=== PATIENT | female | born 1950 | race Hispanic/Latino ===

== ENCOUNTER 2021-09-04 03:48 | Observation (INO) | payer OTHER ==
--- OUTSIDE RECORDS SUMMARY | 2021-09-04 03:51 | XMS REPORT | Continuity of Care Document ---
:[address] [facility] t Address [address] [place] [address] Care Team Providers Name Role Phone Juan AYALA Attending Clinician JUAN Attending Clinician Unavailable Doctor Unassigned, Name Attending Clinician Unavailable Payers Payer Name Policy Type Policy Number Effective Date Expiration Date S ource Problems Condition Condition Condition Status Onset Resolution Last Treating Co mments Source Name Details Category Date Date Treatment Clinician Date Chronic Chronic Disease Active Univers pain of pain of 7-31 ity of both knees [place] knees 00:[place] [facility] Sjogren's Sjogren's Disease Active Uni vers syndrome: syndrome: 7-11 ity of +SSA +SSA 00:00: [place] 00 [facility] Branch Proteinuri Proteinuri Disease Active U nivers a a 6-13 ity of 00:00: [place] [facility] ESR raised ESR raised Disease Active U nivers 6-06 ity of 00:00: [place] [facility] 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 4-04 it y of present present 00:00: [place] 00 Medical Branch Immunizati Immunizati Disease Active U nivers on on 404 ity of counseling counseling [place] [facility] Rotator Rotator Disease Active Univers cuff tear cuff tear 4-04 ity of arthropath arthropath [place] right y of right 00 Me dical shoulder shoulder Branch Dry eyes Dry eyes Disease Active Unive rs 4-04 ity of 00:00: [place] [facility] Pain in Pain in Disease Active Univers both hands both hands 4-04 it y of 00:00: [place] 00 Medical Branch Allergies, Adverse Reactions, Alerts Allergy Allergy Status Severity Reaction(s) Onset Inactive Treating Comm ents Source Name Type Date Date Clinician NO KNOWN Drug Active Univers ALLERGIE Class ity of S [facility] Social History Social Habit Start Date Stop Date Quantity Comments Source Tobacco use and 2017-09-05 2017-09-05 Never used Universit y of exposure 00:00:00 00:00:00 [facility] Alcohol intake 2017-09-05 2017-09-05 Current University of 00:00:00 00:00:00 non-drinker of [facility] alcohol Branch (finding) Sex [birth year] At [birth year] Universit y of 00:00:00 00:00:00 [facility] Smoking Status Start Date Stop Date Source Never smoker [facility] Medications Ordered Filled Start Stop Current Ordering Indication Dosage Frequency Signature Comments Components Source Medication Medication Date Date Medication? Clinician (SIG) Name Name Diclofenac Yes Apply Univer s Sodium 1 % 7-31 1gram to ity o f gel 00:00: affected [place] 00 area twice Medical daily Branch Diclofenac Yes Apply Univer s Sodium 1 % 7-31 1gram to ity o f gel 00:00: affected [place] 00 area twice Medical daily Branch Diclofenac Yes Apply Univer s Sodium 1 % 7-31 1gram to ity o f gel 00:00: affected [place] 00 area twice Medical daily Branch Diclofenac Yes Apply Univer s Sodium 1 % 7-31 1gram to ity o f gel 00:00: affected [place] 00 area twice Medical daily Branch Diclofenac Yes Apply Univer s Sodium 1 % 4-04 1gram to ity o f gel 00:00: affected [place] 00 area twice Medical daily Branch Diclofenac Yes Apply Univer s Sodium 1 % 4-04 1gram to ity o f gel 00:00: affected [place] 00 area twice Medical daily Branch Diclofenac Yes Apply Univer s Sodium 1 % 4-04 1gram to ity o f gel 00:00: affected [place] 00 area twice Medical daily Branch Diclofenac Yes Apply Univer s Sodium 1 % 4-04 1gram to ity o f gel 00:00: affected [place] 00 area twice Medical daily Branch ciprofloxac Yes 500mg Take 500 U nivers in HCl 500 3-19 mg by ity of mg tablet 00:00: mouth. Medical Branch ciprofloxac 2018-0 Yes 500mg Take 500 U nivers in HCl 500 3-19 mg by ity of mg tablet 00:00: mouth. Medical Branch ciprofloxac 2018-0 Yes 500mg Take 500 U nivers in HCl 500 3-19 mg by ity of mg tablet 00:00: mouth. Medical Branch ciprofloxac 2018-0 Yes 500mg Take 500 U nivers in HCl 500 3-19 mg by ity of mg tablet 00:00: mouth. Medical Branch atorvastati 2017-0 Yes 40mg Take 40 mg Univers n 20 mg 3-04 by mouth. ity of tablet 00:00: Medical Branch nitrofurant 2017-0 Yes 100mg Take 100 U nivers oin 100 mg 3-04 mg by ity of capsule 00:00: mouth 00 daily. Medical Branch atorvastati 2017-0 Yes 40mg Take 40 mg Univers n 20 mg 3-04 by mouth. ity of tablet 00:00: Medical Branch nitrofurant 2017-0 Yes 100mg Take 100 U nivers oin 100 mg 3-04 mg by ity of capsule 00:00: mouth [place] 00 daily. Medical Branch atorvastati 2017-0 Yes 40mg Take 40 mg Univers n 20 mg 3-04 by mouth. ity of tablet 00:00: Medical Branch nitrofurant 2017-0 Yes 100mg Take 100 U nivers oin 100 mg 3-04 mg by ity of capsule 00:00: mouth [place] 00 daily. Medical Branch atorvastati 2017-0 Yes 40mg Take 40 mg Univers n 20 mg 3-04 by mouth. ity of tablet 00:00: Medical Branch nitrofurant 2017-0 Yes 100mg Take 100 U nivers oin 100 mg 3-04 mg by ity of capsule 00:00: mouth [place] 00 daily. Medical Branch metoprolol 2017-0 Yes 100mg Take 100 Un rodger tartrate 2-27 mg by ity of 100 mg 00:00: mouth [place] tablet 00 daily. Medical Branch losartan-hy 2017-0 Yes TOME JAGDISH Un [place] drochloroth 2-27 TABLETA ity o f iazide 00:00: TODOS LOS [place] 100-12.5 mg 00 D? Medical per tablet Branch LEVEMIR Yes 100U inject 100 Univ ers FLEXTOUCH 2-27 Units ity of 100 unit/mL 00:00: [place] the [place] (3 mL) 00 skin 2 Medical injection (two) Branch times daily. 35 units BID JANUMET XR Yes TOME JAGDISH Uni vers 100-1,000 2-27 TABLETA ity of mg per 00:00: POR V?A [place] tablet 00 ORAL DOS Medical VECES AL Branch D?A glipiZIDE Yes 10mg Take 10 mg Un rodger 10 mg 2-27 by mouth 2 ity of tablet 00:00: (two) [place] 00 times Medical daily. Branch SARAH PEN Yes misc Univers NEEDLE 32 2-27 ity of gauge x 00:00: [place] " [place] 00 Medical Branch amLODIPine Yes 10mg Take 10 mg U nivers 10 mg 2-27 by mouth ity of tablet 00:00: daily. Medical Branch aspirin 81 Yes 81mg Take 81 mg U nivers mg chewable 2-27 by mouth ity of tablet 00:00: daily. Medical Branch pantoprazol Yes 40mg Take 40 mg Univers e 40 mg EC 2-27 by mouth ity o f tablet 00:00: daily. Medical Branch naproxen Yes 500mg Take 500 Univ ers 500 mg 2-27 mg by ity of tablet 00:00: mouth [place] 00 daily. Medical Branch metoprolol Yes 100mg Take 100 Un [place]ger tartrate 2-27 mg by ity of 100 mg 00:00: mouth [place] tablet 00 daily. Medical Branch losartan-hy Yes TOME JAGDISH Un [place] drochloroth 2-27 TABLETA ity o f iazide 00:00: TODOS LOS [place] 100-12.5 mg 00 D? Medical per tablet Branch LEVEMIR Yes 100U inject 100 Univ ers FLEXTOUCH 2-27 Units ity of 100 unit/mL 00:00: under the [place] (3 mL) 00 skin 2 Medical injection (two) Branch times daily. 35 units BID JANUMET XR Yes TOME JAGDISH Uni vers 100-1,000 2-27 TABLETA ity of mg per 00:00: POR V?A [place] tablet 00 ORAL DOS Medical VECES AL Branch D?A glipiZIDE Yes 10mg Take 10 mg Un rodger 10 mg 2-27 by mouth 2 ity of tablet 00:00: (two) [place] 00 times Medical daily. Branch SARAH PEN Yes misc Univers NEEDLE 32 2-27 ity of gauge x 00:00: Medical Branch amLODIPine Yes 10mg Take 10 mg U nivers 10 mg 2-27 by mouth ity of tablet 00:00: daily. Medical Branch aspirin 81 Yes 81mg Take 81 mg U nivers mg chewable 2-27 by mouth ity of tablet 00:00: daily. Medical Branch pantoprazol Yes 40mg Take 40 mg Univers e 40 mg EC 2-27 by mouth ity o f tablet 00:00: daily. Medical Branch naproxen Yes 500mg Take 500 Univ ers 500 mg 2-27 mg by ity of tablet 00:00: mouth [place] 00 daily. Medical Branch metoprolol Yes 100mg Take 100 Un rodger tartrate 2-27 mg by ity of 100 mg 00:00: mouth [place] tablet 00 daily. Medical Branch losartan-hy Yes TOME JAGDISH Un [place] drochloroth 2-27 TABLETA ity o f iazide 00:00: TODOS LOS [place] 100-12.5 mg 00 D? Medical per tablet Branch LEVEMIR Yes 100U inject 100 Univ ers FLEXTOUCH 2-27 Units ity of 100 unit/mL 00:00: under the [place] (3 mL) 00 skin 2 Medical injection (two) Branch times daily. 35 units BID JANUMET XR Yes TOME JAGDISH Uni vers 100-1,000 2-27 TABLETA ity of mg per 00:00: POR V?A tablet 00 ORAL DOS Medical VECES AL Branch D?A glipiZIDE Yes 10mg Take 10 mg Un rodger 10 mg 2-27 by mouth 2 ity of tablet 00:00: (two) [place] 00 times Medical daily. Branch SARAH PEN Yes misc Univers NEEDLE 32 2-27 ity of gauge x 00:00: [place] /32" [place] Medical Branch amLODIPine Yes 10mg Take 10 mg U nivers 10 mg 2-27 by mouth ity of tablet 00:00: daily. Medical Branch aspirin 81 Yes 81mg Take 81 mg U nivers mg chewable 2-27 by mouth ity of tablet 00:00: daily. Medical Branch pantoprazol Yes 40mg Take 40 mg Univers e 40 mg EC 2-27 by mouth ity o f tablet 00:00: daily. Medical Branch naproxen Yes 500mg Take 500 Univ ers 500 mg 2-27 mg by ity of tablet 00:00: mouth 00 daily. Medical Branch metoprolol Yes 100mg Take 100 Un [place]ger tartrate 2-27 mg by ity of 100 mg 00:00: mouth [place] tablet 00 daily. Medical Branch losartan-hy Yes TOME JAGDISH Un rod[place] drochloroth 2-27 TABLETA ity o f iazide 00:00: TODOS LOS [place] 100-12.5 mg 00 D? Medical per tablet Branch LEVEMIR Yes 100U inject 100 Univ ers FLEXTOUCH 2-27 Units ity of 100 unit/mL 00:00: under the [place] (3 mL) 00 skin 2 Medical injection (two) Branch times daily. 35 units BID JANUMET XR Yes TOME JAGDISH Uni vers 100-1,000 2-27 TABLETA ity of mg per 00:00: POR V?A [place] tablet 00 ORAL DOS Medical VECES AL Branch D?A glipiZIDE Yes 10mg Take 10 mg Un rod[place] 10 mg 2-27 by mouth 2 ity of tablet 00:00: (two) [place] 00 times Medical daily. Branch SARAH PEN Yes misc Univers NEEDLE 32 2-27 ity of gauge x 00:: " [place] Medical Branch amLODIPine Yes 10mg Take 10 mg U nivers 10 mg 2-27 by mouth ity of tablet 00:00: daily. Medical Branch aspirin 81 Yes 81mg Take 81 mg U nivers mg chewable 2-27 by mouth ity of tablet 00:00: daily. Medical Branch pantoprazol Yes 40mg Take 40 mg Univers e 40 mg EC 2-27 by mouth ity o f tablet 00:00: daily. Medical Branch naproxen Yes 500mg Take 500 Univ ers 500 mg 2-27 mg by ity of tablet 00:00: mouth [place] 00 daily. Medical Branch VITAMIN D2 Yes TAKE 1 Unive rs 50,000 unit 2-14 CAPSULE ity o f capsule 00:00: ONCE A [place] WEEK FOR Medical 13 WEEKS Branch VITAMIN D2 Yes TAKE 1 Unive rs 50,000 unit 2-14 CAPSULE ity o f capsule 00:00: ONCE A [place] WEEK FOR Medical 13 WEEKS Branch VITAMIN D2 Yes TAKE 1 Unive rs 50,000 unit 2-14 CAPSULE ity o f capsule 00:00: ONCE A [place] WEEK FOR Medical 13 WEEKS Branch VITAMIN D2 Yes TAKE 1 Unive rs 50,000 unit 2-14 CAPSULE ity o f capsule 00:00: ONCE A [place] WEEK FOR Medical 13 WEEKS Branch alendronate Yes 10mg Take 10 mg Univers 10 mg 2-13 by mouth ity of tablet 00:00: daily. [place] [facility] Branch alendronate Yes 10mg Take 10 mg Univers 10 mg 2-13 by mouth ity of tablet 00:00: daily. [place] [facility] Branch alendronate Yes 10mg Take 10 mg Univers 10 mg 2-13 by mouth ity of tablet 00:00: daily. [place] [facility] alendronate Yes 10mg Take 10 mg Univers 10 mg 2-13 by mouth ity of tablet 00:00: daily. [place] [facility] Procedures Procedure Date / Time Performed Performing Clinician Sourc e XR ANKLE 3+ VW LEFT 2020-10-14 18:55:23 Breanna Martinez [facility] XR HIPS 3 VW LEFT 2020-10-14 18:55:12 Breanna Martinez [facility] XR KNEE 3 VW LEFT 2020-10-14 18:54:59 Breanna Martinez [facility] ASSIGNMENT OF BENEFITS 2020-10-14 18:28:36 Doctor Unassigned, No [facility] Branch Encounters Start End Encounter Admission Attending Care Care Encounter Source Date/Time Date/Time Type Type Clinicians Facility Department ID 2020-10-14 2020-10-14 [facility] [id number] Univers 13:34:04 23:59:00 Encounter Breanna Alfred [id number] ity of [place] [id number] [facility] [id number] [facility] 807 Branch 2020-10-14 2020-10-14 [facility] [id number] Univers 13:33:50 13:33:50 Encounter Breanna Alfred [id number] ity of [place] [id number] [facility] [id number] [facility] 807 Branch 2020-10-14 2020-10-14 [facility] [id number] Univers 13:30:00 13:32:00 Encounter Breanna Simon [id number] ity of [place] [id number] [facility] [id number] [facility] 807 [place] 2020-10-14 2020-10-14 [id number] Univers 13:30:00 13:30:00 BREANNA [id number] ity [facility] [place] [facility] 2020-10-14 2020-10-14 [facility] [id number] Univers 00:00:00 00:00:00 BREANNA lozano [facility] [place] [facility] 2020-10-14 2020-10-14 Orders Doctor ANCELMO [id number] Univers 00:00:00 00:00:00 Only Unassigned, RACHID [id number] ity of [place] [facility] [id number] [facility] [id number] [place] [address] Branch Results Test Description Test Time Test Comments Results Result Comments Source CBC W/AUTO DIFF WITH PLATELETS 2021-08-25 04:35:16 Test Item Value Reference Range Interpretation Comme nts WBC (test code = 1001) 7.3 K/UL 3.5-11.0 RBC (test code = 1002) 4.41 M/UL 3.80-5.40 HEMOGLOBIN (test code = 13.4 G/DL 11.5-15.5 1003) HEMATOCRIT (test code = 38.6 % 34.0-45.0 1004) MCV (test code = 1005) 87.5 fL 80.0-99.0 MCH (test code = 1006) 30.4 PG 25.0-33.0 MCHC (test code = 1007) 34.7 G/DL 31.0-36.0 RDW (test code = 1038) 13.2 % 11.5-15.0 NEUTROPHILS (test code = 54.6 % 1008) LYMPHOCYTES (test code = 36.0 % 1010) MONOCYTES (test code = 1011) 7.0 % EOSINOPHILS (test code = 1.6 % 1012) BASOPHILS (test code = 1013) 0.5 % IMMATURE GRANULOCYTES (test 0.3 % code = 1036) NUCLEATED RBCS (test code = 0.0 /100 WBC'S See_Comment [Automated message] The 1065) system which ge nerated this result transmit ellie reference range : 0.0. The reference range was not used to interpr et this result as elton l/abnormal. PLATELET COUNT (test code = 272 K/UL 019-133 9616) ABSOLUTE NEUTROPHILS (test 3.97 K/UL 1.50-7.50 code = 1066) ABSOLUTE LYMPHOCYTES (test 2.62 K/UL 1.00-4.00 code = 1067) ABSOLUTE MONOCYTES (test 0.51 K/UL 0.20-1.00 code = 1068) ABSOLUTE EOSINOPHILS (test 0.12 K/UL 0.00-0.50 code = 1040) ABSOLUTE BASOPHILS (test 0.04 K/UL 0.00-0.20 code = 1069) ABS IMMATURE GRANULOCYTES 0.02 K/UL 0.00-0.10 (test code = 1020) ABS NUCLEATED RBCS (test 0.00 K/UL 0.00-0.11 code = 23458) HEMOGLOBIN [id number] 04:23:29 Test Item Value Reference Range Interpretation Comments HEMOGLOBIN A1c (test 8.8 % 4.2-5.6 H [facility] code = 87585) ASSOCIATION IDELINES FOR HGB A1C: PREDIABETES/INC REASED RISK . . . . . . . 5.7 -6.4% DIAGNOSIS OF D IABETES . . . . . . . . . > =6.5% WITH CONFIRM ATION OR APPROPRIATE SYM PTOMS NOTE: ASSAY MAY BE AFFECTED BY HEMOGLOBINOP ATHIES (SICKLE JOEL L ANEMIA, S-C DISEASE, OTHERS ) OR ARTIFICIALLY LO WERED BY DECREASED RED C ELL SURVIVAL (HEMOLYTIC ANEM IAS, BLOOD LOSS, ETC.) . CONSIDER ALTERNATE TESTI NG OR LABORATORY CONS ULTATION. COMPREHENSIVE METABOLIC [id number] 03:52:38 Test Item Value Reference Range Interpretation Comments GLUCOSE (test code = 166 MG/DL 70-99 H 2216) BUN (test code = 30 MG/DL 8-23 H 2207) CREATININE (test 1.31 MG/DL 0.60-1.30 H code = 221) eGFR (2020 CKD-EPI) 43 >60 L (test code = 73942) ML/MIN/1.73 CALC BUN/CREAT (test 23 RATIO 6-28 code = 2235) SODIUM (test code = 140 MEQ/L 914-572 8731) POTASSIUM (test code 5.5 MEQ/L 3.5-5.4 H = 2227) CHLORIDE (test code 104 MEQ/L 95-107 = 2214) CARBON DIOXIDE (test 22 MEQ/L 19-31 code = 2206) CALCIUM (test code = 10.0 MG/DL 8.5-10.5 2208) PROTEIN, TOTAL (test 7.8 G/DL 6.1-8.3 code = 2229) ALBUMIN (test code = 4.5 G/DL 3.5-5.2 2200) CALC GLOBULIN (test 3.3 G/DL 1.9-3.7 code = 2240) CALC A/G RATIO (test 1.4 RATIO 1.0-2.6 code = 2234) BILIRUBIN, TOTAL 0.4 MG/DL See_Comment [Automated message] (test code = 2207) The syste m which generated this result transmitted ref erence range: <=1.2. T he reference range was not used to int erpret this result as normal/abnormal . ALKALINE PHOSPHATASE 86 U/L 40-142 (test code = 2204) AST (test code = 21 U/L 9-40 2217) ALT (test code = 13 U/L 5-40 UNLE SS 2218) OTHERWISE INDIC ATED, ALL TESTING PER FORMED ATCLINICAL PATH [facility], [facility]. [address] [place] [address] LABORATORY DIRE CTOR: KEN HULL M.D. MARISAIA NUMBER [id number] [facility] ACCREDITATION N O. [id number] XR KNEE 3 VW [id number] 19:05:24HISTORY: ?Pain. FINDINGS: AP, lateral, oblique views of left knee showed no acute fractureor dislocation. Mild changes of arthritis noted in the formal slightlynarrowed medial knee joint space, minimalsubchondral sclerosis and smallosteophytes along the articular edges of medial femoral/tibial condyles.Small osteophytes also seen along the upper and lower articular edges ofthe patella with minimal knee joint effusion. No aggressive bone lesions seen. No calcification in the cartilage liningor in the meniscal fibrocartilage. CONCLUSIONS: Mild degenerative arthritis of left knee with minimal jointeffusion. [facility], Radiant Results Inft User - 10/14/2020 2:06 PM CDTHISTORY: Pain.FINDINGS: AP, lateral, oblique views of left knee showed no acute fractureor dislocation. Mild changes of arthritis noted in the formal slightlynarrowed medial knee joint space, minimal subchondral sclerosis and smallosteophytes along the articular edges of medial femoral/tibial condyles.Small osteophytes also seen along the upper and lower articular edges ofthe patella with minimal knee joint effusion.No aggressive bone lesions seen. No calcification in the cartilage liningor in the meniscal fibrocartilage.CONCLUSIONS: Mild degenerative arthritis of left knee with [facility]ffusion.[facility] 2020-10-14 19:04:18HISTORY: ?Pain. FINDINGS: AP, lateral, oblique views of left ankle showed no acute fractureor dislocation. 5 mm heel spur, retrocalcaneal exostosis within lower tendoAchilles noted. Mild soft tissue swelling along the lateral aspect of theankle and mild degenerative changes in the medial tibiotalar joint noted.Mild degenerative arthritis are also seen in the talonavicular joint. CONCLUSIONS: No acutefracture or dislocation in left ankle. [facility], Radiant Results Inft User - 10/14/2020 2:05 PM CDTHISTORY: Pain.FINDINGS: AP, lateral, oblique views of left ankle showed no acute fractureor dislocation.5 mm heel spur, retrocalcaneal exostosis within lower tendoAchilles noted. Mild soft tissue swellingalong the lateral aspect of theankle and mild degenerative changes in the medial tibiotalar joint noted.Mild degenerative arthritis are also seen in the talonavicular joint.CONCLUSIONS: No acute fracture or dislocation in left ankle.[facility] 3 VW [id number] 19:03:08HISTORY: ?Pain. FINDINGS: AP view of the pelvis, AP and lateral views centered over theleft hip joint showed no acute fracture or dislocation. No sign of AVN inthe femoral heads. Mild degenerative arthritis is noted in the left hipjoint. Sacroiliac joints appear normal. CONCLUSIONS: No acute fracture or dislocation in pelvis or left hip. [facility], Radiant Results Inft User - 10/14/2020 2:04 PM CDTHISTORY: Pain.FINDINGS: AP view of the pelvis, AP and lateral views centered over theleft hip joint showed no acute fracture or dislocation. No sign of AVN inthe femoral heads. Mild degenerative arthritis isnoted in the left hipjoint. Sacroiliac joints appear normal.CONCLUSIONS: No acute fracture or dislocation in pelvis or left hip. [facility]
[2021-09-04 04:28] LABS: Absolute Lymphocytes (CBC) 2.5 K/uL (0.7-4.9); Hematocrit 38.8 % (36.0-45.0); Lymphocytes % 27.4 % (15.3-44.8); MPV 9.1 fL (7.6-11.3); RBC Red Blood Cell Count 4.27 M/uL (3.86-4.86)
[2021-09-04 04:32] LABS: Protime INR 0.99
[2021-09-04 04:47] LABS: Albumin 3.9 g/dL (3.4-5.0); Bilirubin Direct 0.1 mg/dL (0-0.2); Bilirubin Total 0.4 mg/dL (0.2-1.0); Magnesium 2.2 mg/dL (1.8-2.4); Potassium 5.1 mmol/L (3.5-5.1); Protein, Total 8.4 g/dL (6.4-8.2); Troponin High Sensitivity 4.5 pg/mL (<58.9)
--- NOTE | 2021-09-04 04:58 | EDPHYS ---
Physician Documentation [facility] Name: iKnga Singleton Age: 70 yrs Sex: Female : 1950 Arrival Date: 09/04/2021 Time: 03:57 Bed 3 Private MD: ED Physician Merrick Wan HPI: 09/04 04:09 This 70 yrs old Female presents to ER via EMS with complaints of Chest pain. [facility] 04:09 The patient or guardian reports chest pain that is located primarily in the anterior mh7 chest wall, left. Onset: today, at 02:30. The pain does not radiate. Associated signs and symptoms: Pertinent negatives: abdominal pain, cough, diaphoresis, dizziness, headache, lower extremity pain, lower extremity swelling, lightheadedness, nausea, near syncope, palpitations, recent travel, shortness of breath, syncope, vomiting. The chest pain is described as a heaviness. Duration: The patient or guardian reports multiple episodes, that are intermittent, that wax and wane, with no pattern. Modifying factors: The symptoms are alleviated by nothing. the symptoms are aggravated by nothing. Severity of pain: At its worst the pain was moderate today. Historical: - Allergies: 04:02 No Known Allergies; tw5 - PMHx: 04:02 Diabetes - IDDM; Hypertensive disorder; tw5 - Immunization history:: Client reports receiving the 2nd dose of the Covid vaccine. - Social history:: Smoking status: Patient denies any tobacco usage or history of. ROS: 04:09 Constitutional: Negative for fever, chills, and weight loss, Eyes: Negative for injury, mh7 pain, redness, and discharge, ENT: Negative for injury, pain, and discharge, Neck: Negative for injury, pain, and swelling, Respiratory: Negative for shortness of breath, cough, wheezing, and pleuritic chest pain, Abdomen/GI: Negative for abdominal pain, nausea, vomiting, diarrhea, and constipation, Back: Negative for injury and pain, : Negative for injury, bleeding, discharge, and swelling, MS/Extremity: Negative for injury and deformity, Skin: Negative for injury, rash, and discoloration, Neuro: Negative for headache, weakness, numbness, tingling, and seizure, Psych: Negative for depression, anxiety, suicide ideation, homicidal ideation, and hallucinations, Allergy/Immunology: Negative for hives, rash, and allergies, Endocrine: Negative for neck swelling, polydipsia, polyuria, polyphagia, and marked weight changes, Hematologic/Lymphatic: Negative for swollen nodes, abnormal bleeding, and unusual bruising. Exam: 04:09 Constitutional: This is a well developed, well nourished patient who is awake, alert, mh7 and in no acute distress. Head/Face: Normocephalic, atraumatic. Eyes: Pupils equal round and reactive to light, extra-ocular motions intact. Lids and lashes normal. Conjunctiva and sclera are non-icteric and not injected. Cornea within normal limits. Periorbital areas with no swelling, redness, or edema. Neck: Trachea midline, no thyromegaly or masses palpated, and no cervical lymphadenopathy. Supple, full range of motion without nuchal rigidity, or vertebral point tenderness. No Meningismus. Chest/axilla: Normal chest wall appearance and motion. Nontender with no deformity. No lesions are appreciated. Cardiovascular: Regular rate and rhythm with a normal S1 and S2. No gallops, murmurs, or rubs. Normal PMI, no JVD. No pulse deficits. Respiratory: Lungs have equal breath sounds bilaterally, clear to auscultation and percussion. No rales, rhonchi or wheezes noted. No increased work of breathing, no retractions or nasal flaring. Abdomen/GI: Soft, non-tender, with normal bowel sounds. No distension or tympany. No guarding or rebound. No evidence of tenderness throughout. Back: No spinal tenderness. No costovertebral tenderness. Full range of motion. Skin: Warm, dry with normal turgor. Normal color with no rashes, no lesions, and no evidence of cellulitis. MS/ Extremity: Pulses equal, no cyanosis. Neurovascular intact. Full, normal range of motion. Neuro: Awake and alert, GCS 15, oriented to person, place, time, and situation. Cranial nerves II-XII grossly intact. Motor strength 5/5 in all extremities. Sensory grossly intact. Cerebellar exam normal. Normal gait. Psych: Awake, alert, with orientation to person, place and time. Behavior, mood, and affect are within normal limits. Vital Signs: 03:58 BP 141 / 70; Resp 18; Temp 97.8; Pulse Ox 96% on R/A; Weight 72.57 kg; Height 5 ft. 8 tw5 in. (172.72 cm); Pain 5/10; 04:40 BP 105 / 60; Pulse 73; Resp 20; Pulse Ox 98% on R/A; ke1 07:49 BP 169 / 70; Pulse 65; Resp 17; Pulse Ox 100% ; bey 08:58 BP 138 / 75; Pulse 80; Resp 17; Pulse Ox 100% on R/A; bey 09:07 BP 168 / 60; Pulse 59; Resp 16; Pulse Ox 98% on R/A; bey 03:58 Body Mass Index 24.33 (72.57 kg, 172.72 cm) tw5 MDM: 04:54 Differential diagnosis: acute myocardial infarction, acute pericarditis, anxiety, mh7 coronary artery disease chest wall pain, congestive heart failure costochondritis, esophagitis, gastroesophageal reflux disease (GERD), peptic ulcer disease, pericarditis, pneumonia, pneumothorax. 04:55 HEART Score: History: Moderately Suspicious (1), ECG: Normal (0), Age: > or = [address] [facility] (2), Risk Factors: > or = 3 Risk factors for atherosclerotic disease (2), [Hypercholesterolemia] [Hypertension] [DM] Troponin: < or = 1 x Normal Limit (0), Total Score = 5. The patient was given aspirin in the Emergency Department. Data reviewed: vital signs, nurses notes, EMS record, lab test result(s), cardiac enzymes, CBC, electrolytes, EKG, radiologic studies, plain films. Data interpreted: Pulse oximetry: on room air is 98 %. Interpretation: normal. Counseling: I had a detailed discussion with the patient and/or guardian regarding: the historical points, exam findings, and any diagnostic results supporting the discharge/admit diagnosis, lab results, radiology results, the need for further work-up and treatment in the hospital. Response to treatment: the patient's symptoms have mildly improved after treatment. 04:[address] [facility] 09/04 04:00 Order name: Basic Metabolic Panel; Complete Time: :53 [facility] 09/04 04:00 Order name: CBC with Diff; Complete Time: 04:35 [facility] 09/04 04:00 Order name: LFT's; Complete Time: 53 [facility] 09/04 04:00 Order name: Magnesium; Complete Time: 04:53 7 09/04 04:00 Order name: NT PRO-BNP; Complete Time: 04:53 7 09/04 04:00 Order name: PT-INR; Complete Time: 04:35 7 09/04 04:00 Order name: Troponin HS; Complete Time: 04:53 7 09/04 04:00 Order name: XRAY Chest ([address] view) [facility] 09/04 04:00 Order name: EKG; Complete Time: 04:13 7 09/04 04:28 Order name: Glucose, Ancillary Testing; Complete Time: 04:35 EDMS 09/04 05:24 Order name: COVID-19/FLU A+B (Document "Date of Onset" if Symptomatic) cs9 09/04 04:00 Order name: Cardiac monitoring; Complete Time: 04:05 [facility] 09/04 04:00 Order name: EKG - Nurse/Tech; Complete Time: 04:01 [facility] 09/04 04:00 Order name: IV Saline Lock; Complete Time: 04:16 7 09/04 04:00 Order name: Labs collected and sent; Complete Time: 04:16 [facility] 09/04 04:00 Order name: O2 Per Protocol; Complete Time: 04:05 [facility] 09/04 04:00 Order name: O2 Sat Monitoring; Complete Time: 04:05 [facility] Administered Medications: 05:17 Drug: Aspirin Chewable Tablet 324 mg Route: PO; lg3 05:17 Follow up: Response: No adverse reaction lg3 05:27 Drug: NS 0.9% 1000 ml Route: IV; Rate: 1 bolus; Site: right antecubital; lg3 07:56 Follow up: IV Status: Completed infusion; IV Intake: 1000ml bp 06:20 Drug: NS 0.9% 1000 ml Route: IV; Rate: 75 ml/hr; Site: right antecubital; ke1 Disposition Summary: 09/04/21 04:57 Hospitalization Ordered Hospitalization Status: Observation [facility] Provider: Devan Kohli [facility] Location: Telemetry/MedSurg (observation) [facility] Condition: Stable [facility] Problem: new [facility] Symptoms: have improved [facility] Bed/Room Type: Standard [facility] Room Assignment: 220(09/04/21 09:40) Diagnosis - Chest pain, unspecified [facility] Forms: - Medication Reconciliation Form mh7 - SBAR form 7 Signatures: Dispatcher [employer] EDMS Du Charles, MEDICAL SERVICES COORDINATOR-C MEDICAL SERVICES COORDINATOR-Cla1 Inga Cruz Lacie, RN RN lg3 Merrick Wan MD MD 7 Diana Norton 5 Suzi Gutiérrez RN RN ke1 Deangelo Castro RN bp Corrections: (The following items were deleted from the chart) 04:04 04:02 PMHx: Hypercholesterolemia; tw 09:40 04:57 Carlie seay
--- NOTE | 2021-09-04 04:58 | ER ---
Nurse's Notes [facility] Name: Kinga Singleton Age: 70 yrs Sex: Female : 1950 Arrival Date: 09/04/2021 Time: 03:57 Bed 3 Private MD: Diagnosis: Chest pain, unspecified Presentation: 09/04 03:58 Chief complaint: EMS states: c/o CP at rest started around 0230 radiating to right side tw5 of the neck, 1st degree heart block on EKG per EMS. v/s 130/90. Coronavirus screen: Vaccine status: Patient reports receiving the 2nd dose of the covid vaccine. Ebola Screen: No symptoms or risks identified at this time. Initial Sepsis Screen: Does the patient meet any 2 criteria? No. Patient's initial sepsis screen is negative. Does the patient have a suspected source of infection? No. Patient's initial sepsis screen is negative. Risk Assessment: Do you want to hurt yourself or someone else? Patient reports no desire to harm self or others. Onset of symptoms was September 04, 2021 at 02:30. 03:58 Method Of Arrival: EMS: [facility] tw5 03:58 Acuity: JITENDRA 3 tw5 Triage Assessment: 04:04 General: Appears uncomfortable, Behavior is calm, cooperative, appropriate for age. tw5 Pain: Complains of pain in left side Chest under left breast radiating to right neck Pain radiates to right side neck. EENT: No deficits noted. Neuro: Level of Consciousness is awake, alert, obeys commands, Oriented to person, place, time, situation. Cardiovascular: Reports chest pain, Respiratory: Airway is patent Trachea midline Respiratory effort is even, unlabored, Respiratory pattern is regular, symmetrical, Breath sounds are clear bilaterally. GI: Abdomen is non-distended. : No deficits noted. Derm: No deficits noted. Musculoskeletal: No signs and/or symptoms reported regarding the musculoskeletal system. Historical: - Allergies: 04:02 No Known Allergies; tw5 - PMHx: 04:02 Diabetes - IDDM; Hypertensive disorder; tw5 - Immunization history:: Client reports receiving the 2nd dose of the Covid vaccine. - Social history:: Smoking status: Patient denies any tobacco usage or history of. Screenin:07 Abuse screen: Denies threats or abuse. Nutritional screening: No deficits noted. tw5 Tuberculosis screening: No symptoms or risk factors identified. Fall Risk No fall in past 12 months (0 pts). No secondary diagnosis (0 pts). IV access (20 points). Ambulatory Aid- None/Bed Rest/Nurse Assist (0 pts). Gait- Normal/Bed Rest/Wheelchair (0 pts) Mental Status- Oriented to own ability (0 pts). Assessment: 04:17 Reassessment: see triage. tw5 07:00 General: RECD REPORT FROM JOANNE VIVEROS. 70YO HF P/W CP. ALL CURRENT RESULTS NEGATIVE. PT bp TO BE ADMITTED.. Vital Signs: 03:58 BP 141 / 70; Resp 18; Temp 97.8; Pulse Ox 96% on R/A; Weight 72.57 kg; Height 5 ft. 8 tw5 in. (172.72 cm); Pain 5/10; 04:40 BP 105 / 60; Pulse 73; Resp 20; Pulse Ox 98% on R/A; ke1 07:49 BP 169 / 70; Pulse 65; Resp 17; Pulse Ox 100% ; bey 08:58 BP 138 / 75; Pulse 80; Resp 17; Pulse Ox 100% on R/A; bey 09:07 BP 168 / 60; Pulse 59; Resp 16; Pulse Ox 98% on R/A; bey 03:58 Body Mass Index 24.33 (72.57 kg, 172.72 cm) tw5 ED Course: 03:57 Patient arrived in ED. tw5 03:57 Diana Norton is Primary Nurse. tw5 03:59 Merrick Wan MD is Attending Physician. 7 04:02 Triage completed. tw5 04:07 Arm band placed on. tw5 04:09 Bed in low position. Side rails up X 1. Adult w/ patient. tw5 04:16 Inserted saline lock: 20 gauge in right antecubital area, using aseptic technique. tw5 ,using aseptic technique. By Tung Gray 04:40 XRAY Chest (1 view) In Process Unspecified. EDMS 04:57 Devan Kohli MD is Hospitalizing Provider. 7 06:06 COVID-19/FLU A+B (Document "Date of Onset" if Symptomatic) Sent. ke1 07:21 Primary Nurse role handed off by Diana Norton bp 07:21 Glroia, Deangelo, RN is Primary Nurse. bp 08:59 No provider procedures requiring assistance completed. Inserted saline lock:. bey 10:18 Patient admitted, IV remains in place. bey Administered Medications: 05:17 Drug: Aspirin Chewable Tablet 324 mg Route: PO; lg3 05:17 Follow up: Response: No adverse reaction lg3 05:27 Drug: NS 0.9% 1000 ml Route: IV; Rate: 1 bolus; Site: right antecubital; lg3 07:56 Follow up: IV Status: Completed infusion; IV Intake: 1000ml bp 06:20 Drug: NS 0.9% 1000 ml Route: IV; Rate: 75 ml/hr; Site: right antecubital; ke1 Intake: 07:56 IV: 1000ml; Total: 1000ml. bp Outcome: 04:57 Decision to Hospitalize by Provider. [facility] 10:18 Admitted to [facility] bey 10:18 Condition: good 10:18 Instructed on the need for admit. 10:18 Patient left the ED. Signatures: Dispatcher [employer] EDMS Deangelo Castro, RN RN Judie Alcantar RN RN 3 Merrick Wan MD MD [facility] Diana Norton tw5 Loan Lawler RN RN Joanne Gutiérrez RN RN ke1 Corrections: (The following items were deleted from the chart) 04:04 04:02 PMHx: Hypercholesterolemia; tw5 tw5
[2021-09-04] MEDS ORDERED: ASPIRIN 81 MG CHEWABLE TABLET ONE (05:14)
[2021-09-04] MEDS ORDERED: NA CHLORIDE 0.9% 2,000 ML ONE (05:22)
--- NOTE | 2021-09-04 05:26 | P.HP ---
Certification for Inpatient Patient admitted to: Observation With expected LOS: <2 Midnights Patient will require the following post-hospital care: None Practitioner: I am a practitioner with admitting privileges, knowledge of patient current condition, hospital course, and medical plan of care. Services: Services provided to patient in accordance with Admission requirements found in Title 42 Section 412.3 of the Code of Federal Regulations Patient History Date of Service: 09/04/21 Primary Care Provider: Miguel gurrola Reason for admission: Chest pain History of Present Illness: 70-year-old female history of diabetes mellitus type 2insulin- dependent, hypertension and CKD 2 presents emergency department for chest pain. Patient reports that she was holding her child and she had sudden onset of "cramping" like chest pain that lasted for couple minutes she had associated weakness at that time. At this time patient symptoms have resolved her EKG is unremarkable chest x-ray negative for any acute findings her initial troponin is negative although her labs were significant for mild acute kidney injury her ba seline GFR is around 55, currently it is 26 her creatinine increased from 1-1.9. ED prior wishes to admit to observation for chest pain ACS rule out, MERCEDES Allergies No Known Allergies Allergy (Verified 08/04/17 01:02) Home Medications: Amlodipine Besylate 1 tab PO DAILY 08/04/17 Aspirin [Aspir-Low] 1 tab PO DAILY 08/04/17 Insulin Detemir [Levemir Flextouch] 35 units SQ BID 08/04/17 Losartan/Hydrochlorothiazide [Losartan-Hctz 100-12.5 mg Tab] 1 tab PO DAILY 08/04/17 Metoprolol Tartrate 1 tab PO DAILY 08/04/17 Pantoprazole Sodium [Protonix] 1 tab PO [id number] 08/04/17 Sitagliptin Phos/Metformin HCl [Janumet Xr 100-1,000 mg Tablet] 1 tab PO BID 08/04/17 glipiZIDE [Glucotrol] 1 tab PO BID 08/04/17 Atorvastatin Calcium [Lipitor*] 20 mg PO BEDTIME #30 tab 08/05/17 Nitrofuran Macro [Macrobid*] 100 mg PO BIDWM #20 cap 08/05/17 - Past Medical/Surgical History Diabetic: Yes -: high cholesterol -: IDDM -: HTN -: hysterectomy Psychosocial/ Personal History: Lives at home with her family - Family History Mother -: Diabetes Father -: Diabetes - Social History Smoking Status: Never smoker Alcohol use: Yes CD- Drugs: No Caffeine use: No Place of Residence: Home Review of Systems 10-point ROS is otherwise unremarkable General: Weakness Cardiovascular: Chest Pain Physical Examination - Physical Exam General: Alert, In no apparent distress, Oriented x3 HEENT: Atraumatic, PERRLA, Mucous membr. moist/pink, EOMI, Sclerae nonicteric Neck: Supple, 2+ carotid pulse no bruit, No LAD, Without JVD or thyroid abnormality Respiratory: Clear to auscultation bilaterally, Normal air movement Cardiovascular: Regular rate/rhythm, Normal S1 S2 Gastrointestinal: Normal bowel sounds, No tenderness Musculoskeletal: No tenderness Integumentary: No rashes Neurological: Normal gait, Normal speech, Normal strength at 5/5 x4 extr, Normal tone, Normal affect Lymphatics: No axilla or inguinal lymphadenopathy - Studies Laboratory Data (last 24 hrs) 09/04/21 04:15: PT 10.9, INR 0.99 09/04/21 04:15: WBC 9.3, Hgb 13.0, Hct 38.8, Plt Count 262 09/04/21 04:15: Sodium 134 L, Potassium 5.1, BUN 46 H, Creatinine 1.90 H, Glucose 239 H, Magnesium 2.2, Total Bilirubin 0.4, AST 11 L, ALT 17, Alkaline Phosphatase 72 Assessment and Plan - Plan Assessment: Chest pain rule out ACS MERCEDES superimposed on CKD 2 Diabetes mellitus type IIinsulin-dependent Hypertension Hyperlipidemia Plan: Chest pain rule out ACS: Monitor on telemetry, trend troponins, cardiology consulted. Aspirin, statin, beta-dayan. Patient denies any previous cardiac work-up including stress test or heart cath. MERCEDES superimposed on CKD 2: We will give IV fluids, obtain renal ultrasound and consult nephrology. Diabetes mellitus type IIinsulin-dependent: ACH S Accu-Chek, sliding scale insulin. Hypertension: Continue home medications Hyperlipidemia: Continue Home medications DVT PPX: Heparin Code status:full Discharge Plan: Home Plan to discharge in: 24 Hours - Advance Directives Does patient have a Living Will: No Does patient have a Durable POA for Healthcare: No - Code Status/Comfort Care Code Status Assessed: Yes (Full code) Critical Care: No Time Spent Managing Pts Care (In Minutes): 55
[2021-09-04 07:03] LABS: SARS-COV-2 RT PCR NEGATIVE (NEGATIVE)
[2021-09-04] MEDS ORDERED: ONDANSETRON 4 MG/2 ML VIAL IV PRN (10:00)
[2021-09-04] MEDS ORDERED: ACETAMINOPHEN 500 MG TAB PO PRN (10:00)
[2021-09-04] MEDS: INSULIN -REGULAR HUMAN 50 UNIT/0.5 ML ML SQ SCH ×2 (10:00→11:06)
[2021-09-04] MEDS ORDERED: MORPHINE 4 MG/ML SYR IV PRN (10:29)
[2021-09-04 10:35] VITALS: BMI 30.2
[2021-09-04 10:50] VITALS: O2SAT 98
[2021-09-04] MEDS ORDERED: METOPROLOL TAR 25 MG TAB PO SCH (11:00)
[2021-09-04] MEDS ORDERED: NA CHLORIDE 0.9% 1,000 ML IV SCH (11:00)
[2021-09-04] MEDS ORDERED: HEPARIN 5000 UNIT/ML 1 ML VIAL SQ SCH (11:00)
[2021-09-04] MEDS ORDERED: ASPIRIN EC 81 MG TAB PO SCH (11:00)
--- NOTE | 2021-09-04 16:19 | P.DS ---
Admission Date: 09/04/21 Discharge Date: 09/04/21 Primary Care Provider: Miguel gurrola Disposition: ROUTINE DISCHARGE Discharge Condition: FAIR Reason for Admission: Chest pain Brief History of Present Illness: Admitted to the hospital to rule out an [place] Hospital Course: Patient was admitted with cramping-like pain in the upper abdomen German- speaking only he denied any chest pain no prior history of coronary artery disease or cardiac enzymes were all normal EKG normal currently patient has chronic renal failure diabetes and hypertension symptoms have all resolved at the time of discharge she was alert oriented responsive cooperative vital signs all stable chest clear abdomen soft he has been instructed to follow-up with the primary care provider soon as possible as well to hold her losartan hydrochlorothiazide for now/ Pt wanted to go home states that she has chronic renal failure Vital Signs/Physical Exam: Temp Pulse Resp BP Pulse Ox 97.7 F 75 16 131/66 97 09/04/21 12:00 09/04/21 12:00 09/04/21 12:00 09/04/21 12:00 09/04/21 12:00 Laboratory Data at Discharge: WBC 9.3 K/uL (4.3-10.9) 09/04/21 04:15 Hgb 13.0 g/dL (12.0-15.0) 09/04/21 04:15 Hct 38.8 % (36.0-45.0) 09/04/21 04:15 Plt Count 262 K/uL (152-406) 09/04/21 04:15 PT 10.9 SECONDS (9.5-12.5) 09/04/21 04:15 INR 0.99 09/04/21 04:15 Sodium 134 mmol/L (136-145) L 09/04/21 04:15 Potassium 5.1 mmol/L (3.5-5.1) 09/04/21 04:15 BUN 46 mg/dL (7-18) H 09/04/21 04:15 Creatinine 1.90 mg/dL (0.55-1.3) H 09/04/21 04:15 Glucose 239 mg/dL (74-106) H 09/04/21 04:15 Magnesium 2.2 mg/dL (1.8-2.4) 09/04/21 04:15 Total Bilirubin 0.4 mg/dL (0.2-1.0) 09/04/21 04:15 AST 11 U/L (15-37) L 09/04/21 04:15 ALT 17 U/L (12-78) 09/04/21 04:15 Alkaline Phosphatase 72 U/L (45-117) 09/04/21 04:15 Home Medications: Amlodipine Besylate 1 tab PO DAILY 08/04/17 Aspirin [Aspir-Low] 1 tab PO DAILY 08/04/17 Insulin Detemir [Levemir Flextouch] 35 units SQ BID 08/04/17 Metoprolol Tartrate 1 tab PO DAILY 08/04/17 Pantoprazole Sodium [Protonix] 1 tab PO [id number] 08/04/17 Sitagliptin Phos/Metformin HCl [Janumet Xr 100-1,000 mg Tablet] 1 tab PO BID 08/04/17 glipiZIDE [Glucotrol] 1 tab PO BID 08/04/17 Atorvastatin Calcium [Lipitor*] 20 mg PO BEDTIME #30 tab 08/05/17 Physician Discharge Instructions: Patient to follow-up with primary care provider within 1 to 2 weeks patient has renal insufficiency patient to hold losartan hydrochlorothiazide until verified by her primary care physician is given a copy of all the lab work Diet: ADA Activity: Ad louise Followup: Unknown,U [Primary Care Provider] -
[2021-09-04 16:28] VITALS: BP 136/67; TEMP 98.2
--- NOTE | 2021-09-04 18:18 | RAD REPORT ---
EXAM DESCRIPTION: X-ray single view chest. CLINICAL HISTORY: 70 years Female, CHEST PAIN COMPARISON: 08/03/2017 TECHNIQUE: Single portable x-ray view of the chest performed on 09/04/2021 at 4:25 AM FINDINGS: The lungs are well expanded and are clear. There is no evidence of a pneumothorax. The cardiac silhouette is normal in size and configuration. The mediastinal contours are normal. No acute osseous abnormality is identified. No acute soft tissue abnormalities are seen. Lines and tubes: None. Free air: None IMPRESSION: No evidence of acute intrathoracic disease. Electronically signed by: Carey Muller DO 09/04/2021 5:55 AM CDT Due to temporary technical issues with the PACS/Fluency reporting system, reports are being signed by the in house radiologists without review as a courtesy to insure prompt reporting. The interpreting radiologist is fully responsible for the content of the report.
[2021-09-04] MEDS ORDERED: ATORVASTATIN 40 MG TAB PO SCH (21:00)
--- NOTE | 2021-09-05 11:15 | EKG ---
Test Date: 2021-09-04 Test Time: 04:03:04 Baker Chef: BLESSING MEASUREMENT RESULTS: Intervals: Rate: 72 VT: 214 QRSD: 82 QT: 412 QTc: 451 Ranger: P: 47 VT: 214 QRS: 76 T: 68 INTERPRETIVE STATEMENTS: Sinus rhythm with 1st degree AV block Otherwise normal ECG Compared to ECG 08/03/2017 20:58:23 Sinus bradycardia no longer present Electronically Signed On 09-05-21 11:12:21 CDT by Malcolm Kaur
== END 2021-09-04 17:15 | disposition home or self-care (01) ==
LOC: ER 03:48 → ERHOLD 05:16 → INTOOBSV 05:16 → 2ND 09:53 → INTOOBSV 13:21 → OBSVTOIN 13:21
PROVIDERS: ADMIT Hospitalist; ATTEND Hospitalist
DX: R07.9 Chest pain, unspecified (principal); I12.9 Hypertensive chronic kidney disease with stage 1 through stage 4 chronic kidney disease, or unspecified chronic kidney disease; E11.22 Type 2 diabetes mellitus with diabetic chronic kidney disease; N18.2 Chronic kidney disease, stage 2 (mild); N17.9 Acute kidney failure, unspecified; E78.5 Hyperlipidemia, unspecified; Z20.822 Contact with and (suspected) exposure to COVID-19
CPT/HCPCS: 96361; 93005; 85025; 80048; 36415; 83735; 85610; 82947 ×3; 80076; 84484 ×2; 83880; 0240U; 71045; 96360; 99285; J1644; J7030 ×2; G0378 ×2

== ENCOUNTER 2022-01-28 12:53 | Inpatient (IN) | payer OTHER ==
--- OUTSIDE RECORDS SUMMARY | 2022-01-28 13:04 | XMS REPORT | Continuity of Care Document ---
:1950 Author Organization [facility] t Address [address] [place] [address] Dr. 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 4-04 it y of present present 00:00: [place] [facility] Immunizati Immunizati Disease Active U nivers on on 404 ity of counseling counseling 00:[place]: [place] [facility] Rotator Rotator Disease Active Univers cuff tear cuff tear 4-04 ity of arthropath arthropath 00:[place] right y of right 00 Me dical shoulder shoulder Branch Dry eyes Dry eyes Disease Active Unive rs 4-04 ity of 00:00: [place] 00 [facility] Pain in Pain in Disease Active 2017-0 Univers both hands both hands - it y of 00:00: [address] Allergies, Adverse Reactions, Alerts Allergy Allergy Status Severity Reaction(s) Onset Inactive Treating Comm ents Source Name Type Date Date Clinician NO KNOWN Drug Active Univers ALLERGIE Class ity of [facility] Social History Social Habit Start Date Stop Date Quantity Comments Source Tobacco use and 2017-09-05 2017-09-05 Never used Universit y of exposure 00:00:00 00:00:00 [facility] Alcohol intake 2017-09-05 2017-09-05 Current University 00:00:00 00:00:00 non-drinker of [facility] alcohol Branch (finding) Sex Assigned At [birth year] [facility] y of 00:00:00 00:00:00 [facility] Smoking Status Start Date Stop Date Source Never smoker [facility] Medications Ordered Filled Start Stop Current Ordering Indication Dosage Frequency Signature Comments Components Source Medication Medication Date Date Medication? Clinician (SIG) Name Name &lt 2021-0 No 8-03 00:00: 00 Dose 2021-0 No Unknown 8-03 00:00: 00 &lt 2021-0 No 10 8-03 00:00: 00 &lt 2021-0 No 8-03 00:00: 00 TOME JAGDISH 2021-0 No TABLETA DOS 7-26 VECES AL D 00:00: A 00 Dose 2021-0 No Unknown 7-26 00:00: 00 TOME JAGDISH 2021-0 No 40 TABLETA POR 7-26 V A ORAL 00:00: TODOS LOS D 00 Dose 2021-0 No Unknown 7-25 00:00: 00 TOME JAGDISH 2021-0 No TABLETA DOS 7-12 VECES AL D 00:00: A 00 INJECT 2021-0 No UNITS BELOW 7-06 THE SKIN AT 00:00: BEDTIME 00 INJECT 55 UNITS APLIQUE A No DIARIO A LA 7-06 PIEL EL LC 00:00: AFECTADA 00 TODOS LOS D TAKE No 10 TABLET BY 7-05 MOUTH DAILY 00:00: JULIET JAGDISH 00 TABLETA JAGDISH VECE AL PITO PARA LA SHANNAN OSEA TAKE 1 2022-0 No 20 TABLET BY 7-05 MOUTH AT 00:00: BEDTIME 00 JULIET JAGDISH TABLETA EN LA NOCHE PARA EL COLESTEROL Dose 2021-0 No Unknown 7-05 00:00: 00 Dose 2021-0 No Unknown 7- 00:00: 00 Dose 2021-0 No Unknown 7- 00:00: 00 TAKE 1 2021-0 No 100 TABLET BY 7-05 MOUTH DAILY 00:00: JULIET JAGDISH 00 TABLETA JAGDISH VECES AL PITO PARA LA PRESION ARTERIAL TOME JAGDISH 0 No 10 TABLETA POR 7-05 V A ORAL 00:00: TODOS LOS D 00 TOME JAGDISH 0 No 500 TABLETA 705 TODOS LOS D 00:00: 00 Dose 2021-0 No Unknown 7 00:00: 00 Dose 2021-0 No Unknown 7 00:00: 00 TAKE 1 0 No 10 TABLET BY 7-05 MOUTH DAILY 00:00: JULIET JAGDISH 00 TABLETA JAGDISH VECE AL PITO PARA LA SHANNAN OSEA TAKE 1 0 No 20 TABLET BY 7-05 MOUTH AT 00:00: BEDTIME 00 JULIET JAGDISH TABLETA EN LA NOCHE PARA EL COLESTEROL Dose 2021-0 No Unknown 7 00:00: 00 Dose 2021-0 No Unknown 7- 00:00: 00 Dose 2021-0 No Unknown 7 00:00: 00 TAKE 1 0 No 100 TABLET BY 7-05 MOUTH DAILY 00:00: JULIET JAGDISH 00 TABLETA JAGDISH VECES AL PITO PARA LA PRESION ARTERIAL TOME JAGDISH 0 No 10 TABLETA POR 7-05 V A ORAL 00:00: TODOS LOS D 00 TOME JAGDISH 2021-0 No 500 TABLETA 705 TODOS LOS D 00:00: 00 Dose 2021-0 No Unknown 7-05 00:00: 00 Dose 2021-0 No Unknown 7- 00:00: 00 APLIQUE A 0 No DIARIO A LA 6-17 PIEL EL LC 00:00: AFECTADA 00 TODOS LOS D APLIQUE A 0 No DIARIO A LA 6-17 PIEL EL LC 00:00: AFECTADA 00 TODOS LOS D Levemir 2022-0 No (3 mL) FlexTouch 5-25 U-100 00:00: Insulin 100 00 unit/mL (3 mL) subcutaneou s pen Levemir 2021-0 No (3 mL) FlexTouch 5-25 U-100 00:00: Insulin 100 00 unit/mL (3 mL) subcutaneou s pen levofloxaci 2021-0 No 1mg n 500 mg 4-23 tablet 00:00: 00 Dose 2021-0 No Unknown 4-23 00:00: 00 Dose 2021-0 No Unknown 4-23 00:00: 00 Dose 2021-0 No Unknown 4-23 00:00: 00 Dose 2021-0 No Unknown 4-23 00:00: 00 Dose 2021-0 No Unknown 4-23 00:00: 00 Dose 2021-0 No Unknown 4-23 00:00: 00 Dose 2021-0 No Unknown 4-23 00:00: 00 Dose 2021-0 No Unknown 4-23 00:00: 00 Dose 2021-0 No Unknown 4-23 00:00: 00 levofloxaci 2021-0 No 1mg n 500 mg 4-23 tablet 00:00: 00 Dose 2021-0 No Unknown 4-23 00:00: 00 Dose 2021-0 No Unknown 4-23 00:00: 00 Dose 2021-0 No Unknown 4-23 00:00: 00 Dose 2021-0 No Unknown 4-23 00:00: 00 Dose 2021-0 No Unknown 4-23 00:00: 00 Dose 2021-0 No Unknown 4-23 00:00: 00 Dose 2021-0 No Unknown 4-23 00:00: 00 Dose 2021-0 No Unknown 4-23 00:00: 00 Dose 2-0 No Unknown 4-23 00:00: 00 Dose 2-0 No Unknown 4-21 00:00: 00 Dose 2-0 No Unknown 4-21 00:00: 00 Dose 2021-0 No Unknown 4-21 00:00: 00 Dose 2021-0 No Unknown 4-21 00:00: 00 Dose 2-0 No Unknown 4-20 00:00: 00 Dose 2-0 No Unknown 4-20 00:00: 00 sulfamethox 2021-0 No 1mg azole 800 4-19 mg-trimetho 00:00: prim 160 mg 00 tablet sulfamethox 2022-0 No 1mg azole 800 4-19 mg-trimetho 00:00: prim 160 mg 00 tablet Levemir 2022-0 No (3 mL) FlexTouch 3-24 U-100 00:00: Insulin 100 00 unit/mL (3 mL) subcutaneou s pen alendronate 2022-0 No 1mg 10 mg 3-24 tablet 00:00: 00 amlodipine 2022-0 No 1mg 10 mg 3-24 tablet 00:00: 00 aspirin 81 2022-0 No 1mg mg 3-24 tablet,teressa 00:00: yed release 00 metoprolol 2022-0 No 1mg succinate 3-24 ER 100 mg 00:00: tablet,exte 00 nded release 24 hr lisinopril 2022-0 No 1mg 40 mg 3-24 tablet 00:00: 00 Janumet XR 2022-0 No 1mg 100 3-24 mg-1,000 mg 00:00: tablet,exte 00 nded release lovastatin 2022-0 No 1mg 20 mg 3-24 tablet 00:00: 00 gabapentin 2022-0 No 12mg 100 mg 3-24 capsule 00:00: 00 Levemir 2022-0 No (3 mL) FlexTouch 3-24 U-100 00:00: Insulin 100 00 unit/mL (3 mL) subcutaneou s pen alendronate 2022-0 No 1mg 10 mg 3-24 tablet 00:00: 00 amlodipine 2022-0 No 1mg 10 mg 3-24 tablet 00:00: 00 aspirin 81 2022-0 No 1mg mg 3-24 tablet,teressa 00:00: yed release 00 metoprolol 2022-0 No 1mg succinate 3-24 ER 100 mg 00:00: tablet,exte 00 nded release 24 hr lisinopril 2022-0 No 1mg 40 mg 3-24 tablet 00:00: 00 Janumet XR 2022-0 No 1mg 100 3-24 mg-1,000 mg 00:00: tablet,exte 00 nded release lovastatin 2022-0 No 1mg 20 mg 3-24 tablet 00:00: 00 gabapentin 2022-0 No 12mg 100 mg 3-24 capsule 00:00: 00 Dose 2022-0 No Unknown 3-23 00:00: 00 Dose 2022-0 No Unknown 3-23 00:00: 00 Dose 2022-0 No Unknown 3-23 00:00: 00 Dose 2-0 No Unknown 3-23 00:00: 00 Dose 2022-0 No Unknown 3-23 00:00: 00 Dose 2022-0 No Unknown 3-23 00:00: 00 Dose 2022-0 No Unknown 3-23 00:00: 00 Dose 2022-0 No Unknown 3-23 00:00: 00 Dose 2022-0 No Unknown 3-23 00:00: 00 Dose 2-0 No Unknown 3-23 00:00: 00 Dose 2-0 No Unknown 3-23 00:00: 00 Dose 2-0 No Unknown 3-23 00:00: 00 Dose 2-0 No Unknown 3-23 00:00: 00 Dose 2022-0 No Unknown 3-23 00:00: 00 Dose 2-0 No Unknown 3-23 00:00: 00 Dose 2-0 No Unknown 3-23 00:00: 00 Dose 2022-0 No Unknown 3-23 00:00: 00 Dose 2022-0 No Unknown 3-23 00:00: 00 Dose 2-0 No Unknown 3-23 00:00: 00 Dose 2-0 No Unknown 3-23 00:00: 00 Dose 2022-0 No Unknown 3-16 00:00: 00 Dose 2022-0 No Unknown 3-16 00:00: 00 Dose 2-0 No Unknown 3-16 00:00: 00 Dose 2022-0 No Unknown 3-16 00:00: 00 Dose 2022-0 No Unknown 3-16 00:00: 00 Dose 2022-0 No Unknown 3-16 00:00: 00 Dose 2022-0 No Unknown 2-02 00:00: 00 Dose 2-0 No Unknown 2-02 00:00: 00 Levemir 2020- No (3 mL) FlexTouch 2-08 U-100 00:00: Insulin 100 00 unit/mL (3 mL) subcutaneou s pen Dose 2020- No Unknown 2-08 00:00: 00 Dose 2020- No Unknown 2-08 00:00: 00 Dose 2020-06 No Unknown 2-08 00:00: 00 Dose 2020-06 No Unknown 2-08 00:00: 00 Dose 2020-06 No Unknown 2-08 00:00: 00 Dose 2020-06 No Unknown 2-08 00:00: 00 Dose 2020-06 No Unknown 2-08 00:00: 00 Levemir 2020-06 No (3 mL) FlexTouch 2-08 U-100 00:00: Insulin 100 00 unit/mL (3 mL) subcutaneou s pen Dose 2020-06 No Unknown 2-08 00:00: 00 Dose 2020-06 No Unknown 2-08 00:00: 00 Dose 2020-06 No Unknown 2-08 00:00: 00 Dose 2020-06 No Unknown 2-08 00:00: 00 Dose 2020-06 No Unknown 2-08 00:00: 00 Dose 2020-06 No Unknown 2-08 00:00: 00 Dose 2020-06 No Unknown 2-08 00:00: 00 Levemir 2020-06 No (3 mL) FlexTouch 1-22 U-100 00:00: Insulin 100 00 unit/mL (3 mL) subcutaneou s pen Levemir 2020-06 No (3 mL) FlexTouch 1-22 U-100 00:00: Insulin 100 00 unit/mL (3 mL) subcutaneou s pen mupirocin 2 2020-06 No 1% % topical 0-27 ointment 00:00: 00 mupirocin 2 2020-06 No 1% % topical 0-27 ointment 00:00: 00 clindamycin 2020-06 No 1mg HCl 300 mg 0-13 capsule 00:00: 00 clindamycin 2020-06 No 1mg HCl 300 mg 0-13 capsule 00:00: 00 mupirocin 2 2020-06 No 1% % topical 0-07 ointment 00:00: 00 clindamycin 2020-06 No 1mg HCl 300 mg 0-07 capsule 00:00: 00 mupirocin 2 2020-06 No 1% % topical 0-07 ointment 00:00: 00 clindamycin 2020-06 No 1mg HCl 300 mg 0-07 capsule 00:00: 00 Levemir 0 No (3 mL) FlexTouch 9-20 U-100 00:00: Insulin 100 00 unit/mL (3 mL) subcutaneou s pen alendronate 2021-0 No 1mg 10 mg 9-20 tablet 00:00: 00 amlodipine 2021-0 No 1mg 10 mg 9-20 tablet 00:00: 00 lisinopril 2021-0 No 1mg 40 mg 9-20 tablet 00:00: 00 aspirin 81 2021-0 No 1mg mg 9-20 tablet,teressa 00:00: yed release 00 metoprolol 2021-0 No 1mg succinate 9-20 ER 100 mg 00:00: tablet,exte 00 nded release 24 hr Janumet XR 2021-0 No 1mg 100 9-20 mg-1,000 mg 00:00: tablet,exte 00 nded release lovastatin 2021-0 No 1mg 20 mg 9-20 tablet 00:00: 00 Levemir 2021-0 No (3 mL) FlexTouch 9-20 U-100 00:00: Insulin 100 00 unit/mL (3 mL) subcutaneou s pen alendronate 1-0 No 1mg 10 mg 9-20 tablet 00:00: 00 amlodipine 2021-0 No 1mg 10 mg 9-20 tablet 00:00: 00 lisinopril 2021-0 No 1mg 40 mg 9-20 tablet 00:00: 00 aspirin 81 2021-0 No 1mg mg 9-20 tablet,teressa 00:00: yed release 00 metoprolol 2021-0 No 1mg succinate 9-20 ER 100 mg 00:00: tablet,exte 00 nded release 24 hr Janumet XR 2021-0 No 1mg 100 9-20 mg-1,000 mg 00:00: tablet,exte 00 nded release lovastatin 2021-0 No 1mg 20 mg 9-20 tablet 00:00: 00 Levemir 2021-0 No (3 mL) FlexTouch 7-10 U-100 00:00: Insulin 100 00 unit/mL (3 mL) subcutaneou s pen Levemir 2021-0 No (3 mL) FlexTouch 7-10 U-100 00:00: Insulin 100 00 unit/mL (3 mL) subcutaneou s pen Levemir 2021-0 No (3 mL) FlexTouch 5-25 U-100 00:00: Insulin 100 00 unit/mL (3 mL) subcutaneou s pen metoprolol 1-0 No 1mg succinate 5-25 ER 100 mg 00:00: tablet,exte 00 nded release 24 hr aspirin 81 2021-0 No 1mg mg 5-25 tablet,teressa 00:00: yed release 00 amlodipine 2021-0 No 1mg 10 mg 5-25 tablet 00:00: 00 lisinopril 2021-0 No 1mg 40 mg 5-25 tablet 00:00: 00 alendronate 2021-0 No 1mg 10 mg 5-25 tablet 00:00: 00 Janumet XR 2021-0 No 1mg 100 5-25 mg-1,000 mg 00:00: tablet,exte 00 nded release lovastatin 1-0 No 1mg 20 mg 5-25 tablet 00:00: 00 Levemir 2021-0 No (3 mL) FlexTouch 5-25 U-100 00:00: Insulin 100 00 unit/mL (3 mL) subcutaneou s pen metoprolol 1-0 No 1mg succinate 5-25 ER 100 mg 00:00: tablet,exte 00 nded release 24 hr aspirin 81 1-0 No 1mg mg 5-25 tablet,teressa 00:00: yed release 00 amlodipine 2021-0 No 1mg 10 mg 5-25 tablet 00:00: 00 lisinopril 2021-0 No 1mg 40 mg 5-25 tablet 00:00: 00 alendronate 2021-0 No 1mg 10 mg 5-25 tablet 00:00: 00 Janumet XR 2021-0 No 1mg 100 5-25 mg-1,000 mg 00:00: tablet,exte 00 nded release lovastatin 2021-0 No 1mg 20 mg 5-25 tablet 00:00: 00 Levemir 2021-0 No (3 mL) FlexTouch 5-24 U-100 00:00: Insulin 100 00 unit/mL (3 mL) subcutaneou s pen Levemir 2021-0 No (3 mL) FlexTouch 5-24 U-100 00:00: Insulin 100 00 unit/mL (3 mL) subcutaneou s pen Levemir 2021-0 No (3 mL) FlexTouch 4-30 U-100 00:00: Insulin 100 00 unit/mL (3 mL) subcutaneou s pen ibuprofen 2021-0 No 1mg 400 mg 4-30 tablet 00:00: 00 Macrobid 2021-0 No 1mg 100 mg 4-30 capsule 00:00: 00 Levemir 2021-0 No (3 mL) FlexTouch 4-30 U-100 00:00: Insulin 100 00 unit/mL (3 mL) subcutaneou s pen ibuprofen 1-0 No 1mg 400 mg 4-30 tablet 00:00: 00 Macrobid 2021-0 No 1mg 100 mg 4-30 capsule 00:00: 00 Levemir 2021-0 No (3 mL) FlexTouch 3-10 U-100 00:00: Insulin 100 00 unit/mL (3 mL) subcutaneou s pen alendronate 1-0 No 1mg 10 mg 3-10 tablet 00:00: 00 metoprolol 2021-0 No 1mg succinate 3-10 ER 100 mg 00:00: tablet,exte 00 nded release 24 hr aspirin 81 2021-0 No 1mg mg 3-10 tablet,teressa 00:00: yed release 00 amlodipine 2021-0 No 1mg 10 mg 3-10 tablet 00:00: 00 lisinopril 2021-0 No 1mg 40 mg 3-10 tablet 00:00: 00 Janumet XR 2021-0 No 1mg 100 3-10 mg-1,000 mg 00:00: tablet,exte 00 nded release lovastatin 2021-0 No 1mg 20 mg 3-10 tablet 00:00: 00 Levemir 2021-0 No (3 mL) FlexTouch 3-10 U-100 00:00: Insulin 100 00 unit/mL (3 mL) subcutaneou s pen alendronate 2021-0 No 1mg 10 mg 3-10 tablet 00:00: 00 metoprolol 2021-0 No 1mg succinate 3-10 ER 100 mg 00:00: tablet,exte 00 nded release 24 hr aspirin 81 2021-0 No 1mg mg 3-10 tablet,teressa 00:00: yed release 00 amlodipine 2021-0 No 1mg 10 mg 3-10 tablet 00:00: 00 lisinopril 2021-0 No 1mg 40 mg 3-10 tablet 00:00: 00 Janumet XR 1-0 No 1mg 100 3-10 mg-1,000 mg 00:00: tablet,exte 00 nded release lovastatin 1-0 No 1mg 20 mg 3-10 tablet 00:00: 00 Levemir 1-0 No (3 mL) FlexTouch 2-22 U-100 00:00: Insulin 100 00 unit/mL (3 mL) subcutaneou s pen Levemir 1-0 No (3 mL) FlexTouch 2-22 U-100 00:00: Insulin 100 00 unit/mL (3 mL) subcutaneou s pen Levemir 1-0 No (3 mL) FlexTouch 2-12 U-100 00:00: Insulin 100 00 unit/mL (3 mL) subcutaneou s pen metoprolol 1-0 No 1mg succinate 2-12 ER 100 mg 00:00: tablet,exte 00 nded release 24 hr alendronate 1-0 No 1mg 10 mg 2-12 tablet 00:00: 00 Janumet XR 1-0 No 1mg 100 2-12 mg-1,000 mg 00:00: tablet,exte 00 nded release lovastatin 1-0 No 1mg 20 mg 2-12 tablet 00:00: 00 Levemir 1-0 No (3 mL) FlexTouch 2-12 U-100 00:00: Insulin 100 00 unit/mL (3 mL) subcutaneou s pen metoprolol 1-0 No 1mg succinate 2-12 ER 100 mg 00:00: tablet,exte 00 nded release 24 hr alendronate 1-0 No 1mg 10 mg 2-12 tablet 00:00: 00 Janumet XR 1-0 No 1mg 100 2-12 mg-1,000 mg 00:00: tablet,exte 00 nded release lovastatin 1-0 No 1mg 20 mg 2-12 tablet 00:00: 00 lovastatin 2021-0 No 1mg 20 mg 2-04 tablet 00:00: 00 lovastatin 2021-0 No 1mg 20 mg 2-04 tablet 00:00: 00 Levemir 2020-0 No (3 mL) FlexTouch 1-25 U-100 00:00: Insulin 100 00 unit/mL (3 mL) subcutaneou s pen Levemir 2020-0 No (3 mL) FlexTouch 1-25 U-100 00:00: Insulin 100 00 unit/mL (3 mL) subcutaneou s pen alendronate 2019-1 No 1mg 10 mg 1-10 tablet 00:00: 00 metoprolol 2019-1 No 1mg succinate 1-10 ER 100 mg 00:00: tablet,exte 00 nded release 24 hr Janumet XR 2019-1 No 1mg 100 1-10 mg-1,000 mg 00:00: tablet,exte 00 nded release alendronate 2019-1 No 1mg 10 mg 1-10 tablet 00:00: 00 metoprolol 2019-1 No 1mg succinate 1-10 ER 100 mg 00:00: tablet,exte 00 nded release 24 hr Janumet XR 2019-1 No 1mg 100 1-10 mg-1,000 mg 00:00: tablet,exte 00 nded release Levemir 2019-1 No (3 mL) FlexTouch 1-07 U-100 00:00: Insulin 100 00 unit/mL (3 mL) subcutaneou s pen aspirin 81 2019-1 No 1mg mg 1-07 tablet,teressa 00:00: yed release 00 amlodipine 2019-1 No 1mg 10 mg 1-07 tablet 00:00: 00 lisinopril 2019-1 No 1mg 40 mg 1-07 tablet 00:00: 00 lovastatin 2019-1 No 1mg 20 mg 1-07 tablet 00:00: 00 Alcohol 2020-1 No 1 Pads 1-07 00:00: 00 Levemir 2019-1 No (3 mL) FlexTouch 1-07 U-100 00:00: Insulin 100 00 unit/mL (3 mL) subcutaneou s pen aspirin 81 2019-1 No 1mg mg 1-07 tablet,teressa 00:00: yed release 00 amlodipine 2019-1 No 1mg 10 mg 1-07 tablet 00:00: 00 lisinopril 2019-1 No 1mg 40 mg 1-07 tablet 00:00: 00 lovastatin 2020-1 No 1mg 20 mg 1-07 tablet 00:00: 00 Alcohol 2020-1 No 1 Pads 1-07 00:00: 00 Levemir 2020-0 No (3 mL) FlexTouch 9-28 U-100 00:00: Insulin 100 00 unit/mL (3 mL) subcutaneou s pen Levemir 2020-0 No (3 mL) FlexTouch 9-28 U-100 00:00: Insulin 100 00 unit/mL (3 mL) subcutaneou s pen Levemir 2020-0 No (3 mL) FlexTouch 8-07 U-100 00:00: Insulin 100 00 unit/mL (3 mL) subcutaneou s pen aspirin 81 2020-0 No 1mg mg 8-07 tablet,teressa 00:00: yed release 00 amlodipine 2020-0 No 1mg 10 mg 8-07 tablet 00:00: 00 lisinopril 2020-0 No 1mg 40 mg 8-07 tablet 00:00: 00 lovastatin 2020-0 No 1mg 20 mg 8-07 tablet 00:00: 00 Alcohol 2020-0 No 1 Pads 8-07 00:00: 00 Levemir 2020-0 No (3 mL) FlexTouch 8-07 U-100 00:00: Insulin 100 00 unit/mL (3 mL) subcutaneou s pen aspirin 81 2020-0 No 1mg mg 8-07 tablet,teressa 00:00: yed release 00 amlodipine 2020-0 No 1mg 10 mg 8-07 tablet 00:00: 00 lisinopril 2020-0 No 1mg 40 mg 8-07 tablet 00:00: 00 lovastatin 2020-0 No 1mg 20 mg 8-07 tablet 00:00: 00 Alcohol 2020-0 No 1 Pads 8-07 00:00: 00 alendronate 2020-0 No 1mg 10 mg 6-02 tablet 00:00: 00 aspirin 81 2020-0 No 1mg mg 6-02 tablet,teressa 00:00: yed release 00 metoprolol 2020-0 No 1mg succinate 6-02 ER 100 mg 00:00: tablet,exte 00 nded release 24 hr Janumet XR 2020-0 No 1mg 100 6-02 mg-1,000 mg 00:00: tablet,exte 00 nded release alendronate 2020-0 No 1mg 10 mg 6-02 tablet 00:00: 00 aspirin 81 2020-0 No 1mg mg 6-02 tablet,teressa 00:00: yed release 00 metoprolol 2020-0 No 1mg succinate 6-02 ER 100 mg 00:00: tablet,exte 00 nded release 24 hr Janumet XR 2020-0 No 1mg 100 6-02 mg-1,000 mg 00:00: tablet,exte 00 nded release lovastatin 2020-0 No 1mg 20 mg 5-13 tablet 00:00: 00 lovastatin 2020-0 No 1mg 20 mg 5-13 tablet 00:00: 00 Levemir 2020-0 No (3 mL) FlexTouch 5-11 U-100 00:00: Insulin 100 00 unit/mL (3 mL) subcutaneou s pen amlodipine 2020-0 No 1mg 10 mg 5-11 tablet 00:00: 00 lisinopril 2020-0 No 1mg 40 mg 5-11 tablet 00:00: 00 Levemir 2020-0 No (3 mL) FlexTouch 5-11 U-100 00:00: Insulin 100 00 unit/mL (3 mL) subcutaneou s pen amlodipine 2020-0 No 1mg 10 mg 5-11 tablet 00:00: 00 lisinopril 2020-0 No 1mg 40 mg 5-11 tablet 00:00: 00 alendronate 2020-0 No 1mg 10 mg 2-19 tablet 00:00: 00 Janumet XR 2020-0 No 1mg 100 2-19 mg-1,000 mg 00:00: tablet,exte 00 nded release alendronate 2020-0 No 1mg 10 mg 2-19 tablet 00:00: 00 Janumet XR 2020-0 No 1mg 100 2-19 mg-1,000 mg 00:00: tablet,exte 00 nded release Janumet XR 2020-0 No 1mg 100 2-18 mg-1,000 mg 00:00: tablet,exte 00 nded release Janumet XR 2020-0 No 1mg 100 2-18 mg-1,000 mg 00:00: tablet,exte 00 nded release metoprolol 2020-0 No 1mg succinate 2-11 ER 100 mg 00:00: tablet,exte 00 nded release 24 hr lisinopril 2020-0 No 1mg 40 mg 2-11 tablet 00:00: 00 alendronate 2020-0 No 1mg 10 mg 2-11 tablet 00:00: 00 amlodipine 2020-0 No 1mg 10 mg 2-11 tablet 00:00: 00 aspirin 81 2020-0 No 1mg mg 2-11 tablet,teressa 00:00: yed release 00 lovastatin 2020-0 No 1mg 20 mg 2-11 tablet 00:00: 00 metoprolol 2020-0 No 1mg succinate 2-11 ER 100 mg 00:00: tablet,exte 00 nded release 24 hr lisinopril 2020-0 No 1mg 40 mg 2-11 tablet 00:00: 00 alendronate 2020-0 No 1mg 10 mg 2-11 tablet 00:00: 00 amlodipine 2020-0 No 1mg 10 mg 2-11 tablet 00:00: 00 aspirin 81 2020-0 No 1mg mg 2-11 tablet,teressa 00:00: yed release 00 lovastatin 2020-0 No 1mg 20 mg 2-11 tablet 00:00: 00 lisinopril 2020-0 No 1mg 40 mg 2-04 tablet 00:00: 00 metoprolol 2020-0 No 1mg succinate 2-04 ER 100 mg 00:00: tablet,exte 00 nded release 24 hr lisinopril 2020-0 No 1mg 40 mg 2-04 tablet 00:00: 00 metoprolol 2020-0 No 1mg succinate 2-04 ER 100 mg 00:00: tablet,exte 00 nded release 24 hr lisinopril 2020-0 No 1mg 40 mg 2-04 tablet 00:00: 00 metoprolol 2020-0 No 1mg succinate 2-04 ER 100 mg 00:00: tablet,exte 00 nded release 24 hr lisinopril 2020-0 No 1mg 40 mg 2-04 tablet 00:00: 00 metoprolol 2020-0 No 1mg succinate 2-04 ER 100 mg 00:00: tablet,exte 00 nded release 24 hr Levemir 2020-0 No (3 mL) FlexTouch 1-21 U-100 00:00: Insulin 100 00 unit/mL (3 mL) subcutaneou s pen Levemir 2020-0 No (3 mL) FlexTouch 1-21 U-100 00:00: Insulin 100 00 unit/mL (3 mL) subcutaneou s pen losartan 2020-0 No 1mg 100 mg 1-21 tablet 00:00: 00 alendronate 2020-0 No 1mg 10 mg 1-21 tablet 00:00: 00 amlodipine 2020-0 No 1mg 10 mg 1-21 tablet 00:00: 00 aspirin 81 2020-0 No 1mg mg 1-21 tablet,teressa 00:00: yed release 00 metoprolol 2020-0 No 1mg succinate 1-21 ER 100 mg 00:00: tablet,exte 00 nded release 24 hr lovastatin 2020-0 No 1mg 20 mg 1-21 tablet 00:00: 00 Levemir 2020-0 No (3 mL) FlexTouch 1-21 U-100 00:00: Insulin 100 00 unit/mL (3 mL) subcutaneou s pen Levemir 2020-0 No (3 mL) FlexTouch 1-21 U-100 00:00: Insulin 100 00 unit/mL (3 mL) subcutaneou s pen losartan 2020-0 No 1mg 100 mg 1-21 tablet 00:00: 00 alendronate 2020-0 No 1mg 10 mg 1-21 tablet 00:00: 00 amlodipine 2020-0 No 1mg 10 mg 1-21 tablet 00:00: 00 aspirin 81 2020-0 No 1mg mg 1-21 tablet,teressa 00:00: yed release 00 metoprolol 2020-0 No 1mg succinate 1-21 ER 100 mg 00:00: tablet,exte 00 nded release 24 hr lovastatin 2020-0 No 1mg 20 mg 1-21 tablet 00:00: 00 loratadine 2019-1 No 1mg 10 mg 2-09 tablet 00:00: 00 loratadine 2019-1 No 1mg 10 mg 2-09 tablet 00:00: 00 Januvia 50 2019-1 No 1mg mg tablet 0-15 00:00: 00 lovastatin 2019-1 No 1mg 20 mg 0-15 tablet 00:00: 00 aspirin 81 2019-1 No 1mg mg 0-15 tablet,teressa 00:00: yed release 00 amlodipine 2019-1 No 1mg 10 mg 0-15 tablet 00:00: 00 metoprolol 2019-1 No 1mg tartrate 0-15 100 mg 00:00: tablet 00 alendronate 2019-1 No 1mg 10 mg 0-15 tablet 00:00: 00 Janumet XR 2019-1 No 1mg 100 0-15 mg-1,000 mg 00:00: tablet,exte 00 nded release Januvia 50 2019-1 No 1mg mg tablet 0-15 00:00: 00 lovastatin 2019-1 No 1mg 20 mg 0-15 tablet 00:00: 00 aspirin 81 2019-1 No 1mg mg 0-15 tablet,teressa 00:00: yed release 00 amlodipine 2019-1 No 1mg 10 mg 0-15 tablet 00:00: 00 metoprolol 2019-1 No 1mg tartrate 0-15 100 mg 00:00: tablet 00 alendronate 2019-1 No 1mg 10 mg 0-15 tablet 00:00: 00 Janumet XR 2019-1 No 1mg 100 0-15 mg-1,000 mg 00:00: tablet,exte 00 nded release naproxen 2019-1 No 1mg 500 mg 0-01 tablet 00:00: 00 naproxen 2019-1 No 1mg 500 mg 0-01 tablet 00:00: 00 Alcohol 2019-0 No 1 Pads 8-20 00:00: 00 Alcohol 2019-0 No 1 Pads 8-20 00:00: 00 Januvia 50 2019-0 No 1mg mg tablet 7-24 00:00: 00 Januvia 50 2019-0 No 1mg mg tablet 7-24 00:00: 00 metoprolol 2019-0 No 1mg tartrate 7-23 100 mg 00:00: tablet 00 alendronate 2019-0 No 1mg 10 mg 7-23 tablet 00:00: 00 amlodipine 2019-0 No 1mg 10 mg 7-23 tablet 00:00: 00 aspirin 81 2019-0 No 1mg mg 7-23 tablet,teressa 00:00: yed release 00 lovastatin 2019-0 No 1mg 20 mg 7-23 tablet 00:00: 00 lovastatin 2019-0 No 1mg 20 mg 7-23 tablet 00:00: 00 metoprolol 2019-0 No 1mg tartrate 7-23 100 mg 00:00: tablet 00 alendronate 2019-0 No 1mg 10 mg 7-23 tablet 00:00: 00 amlodipine 2019-0 No 1mg 10 mg 7-23 tablet 00:00: 00 aspirin 81 2019-0 No 1mg mg 7-23 tablet,teressa 00:00: yed release 00 lovastatin 2019-0 No 1mg 20 mg 7-23 tablet 00:00: 00 lovastatin 2019-0 No 1mg 20 mg 7-23 tablet 00:00: 00 amlodipine 2019-0 No 1mg 10 mg 4-30 tablet 00:00: 00 aspirin 81 2019-0 No 1mg mg 4-30 tablet,teressa 00:00: yed release 00 metoprolol 2019-0 No 1mg tartrate 4-30 100 mg 00:00: tablet 00 alendronate 2019-0 No 1mg 10 mg 4-30 tablet 00:00: 00 lovastatin 2019-0 No 1mg 20 mg 4-30 tablet 00:00: 00 amlodipine 2019-0 No 1mg 10 mg 4-30 tablet 00:00: 00 aspirin 81 2019-0 No 1mg mg 4-30 tablet,teressa 00:00: yed release 00 metoprolol 2019-0 No 1mg tartrate 4-30 100 mg 00:00: tablet 00 alendronate 2019-0 No 1mg 10 mg 4-30 tablet 00:00: 00 lovastatin 2019-0 No 1mg 20 mg 4-30 tablet 00:00: 00 aspirin 81 2019-0 No 1mg mg 2-06 tablet,teressa 00:00: yed release 00 metoprolol 2019-0 No 1mg tartrate 2-06 100 mg 00:00: tablet 00 alendronate 2019-0 No 1mg 10 mg 2-06 tablet 00:00: 00 aspirin 81 2019-0 No 1mg mg 2-06 tablet,teressa 00:00: yed release 00 lovastatin 2019-0 No 1mg 20 mg 2-06 tablet 00:00: 00 aspirin 81 2019-0 No 1mg mg 2-06 tablet,teressa 00:00: yed release 00 metoprolol 2019-0 No 1mg tartrate 2-06 100 mg 00:00: tablet 00 alendronate 2019-0 No 1mg 10 mg 2-06 tablet 00:00: 00 aspirin 81 2019-0 No 1mg mg 2-06 tablet,teressa 00:00: yed release 00 lovastatin 2019-0 No 1mg 20 mg 2-06 tablet 00:00: 00 aspirin 81 2019-0 No 1mg mg 1-31 tablet,teressa 00:00: yed release 00 metoprolol 2019-0 No 1mg tartrate 1-31 100 mg 00:00: tablet 00 alendronate 2019-0 No 1mg 10 mg 1-31 tablet 00:00: 00 aspirin 81 2019-0 No 1mg mg 1-31 tablet,teressa 00:00: yed release 00 lovastatin 2019-0 No 1mg 20 mg 1-31 tablet 00:00: 00 pantoprazol 2019-0 No 1mg e 20 mg 1-31 tablet,teressa 00:00: yed release 00 aspirin 81 2019-0 No 1mg mg 1-31 tablet,teressa 00:00: yed release 00 metoprolol 2019-0 No 1mg tartrate 1-31 100 mg 00:00: tablet 00 alendronate 2019-0 No 1mg 10 mg 1-31 tablet 00:00: 00 aspirin 81 2019-0 No 1mg mg 1-31 tablet,teressa 00:00: yed release 00 lovastatin 2019-0 No 1mg 20 mg 1-31 tablet 00:00: 00 pantoprazol 2019-0 No 1mg e 20 mg 1-31 tablet,teressa 00:00: yed release 00 aspirin 81 2018-1 No 1mg mg 0-30 tablet,teressa 00:00: yed release 00 alendronate 2018-1 No 1mg 10 mg 0-30 tablet 00:00: 00 metoprolol 2018-1 No 1mg tartrate 0-30 100 mg 00:00: tablet 00 lovastatin 2018-1 No 1mg 20 mg 0-30 tablet 00:00: 00 amlodipine 2018-1 No 1mg 10 mg 0-30 tablet 00:00: 00 pantoprazol 2018-1 No 1mg e 20 mg 0-30 tablet,teressa 00:00: yed release 00 aspirin 81 2018-1 No 1mg mg 0-30 tablet,teressa 00:00: yed release 00 alendronate 2018-1 No 1mg 10 mg 0-30 tablet 00:00: 00 metoprolol 2018-1 No 1mg tartrate 0-30 100 mg 00:00: tablet 00 lovastatin 2018-1 No 1mg 20 mg 0-30 tablet 00:00: 00 amlodipine 2018-1 No 1mg 10 mg 0-30 tablet 00:00: 00 pantoprazol 2018-1 No 1mg e 20 mg 0-30 tablet,teressa 00:00: yed release 00 aspirin 81 2018-0 No 1mg mg 8-21 tablet,teressa 00:00: yed release 00 metoprolol 2018-0 No 1mg tartrate 8-21 100 mg 00:00: tablet 00 aspirin 81 2018-0 No 1mg mg 8-21 tablet,teressa 00:00: yed release 00 aspirin 81 2018-0 No 1mg mg 8-21 tablet,teressa 00:00: yed release 00 metoprolol 2018-0 No 1mg tartrate 8-21 100 mg 00:00: tablet 00 glipizide 2018-0 No 1mg 10 mg 8-21 tablet 00:00: 00 glipizide 2018-0 No 1mg 10 mg 8-21 tablet 00:00: 00 amlodipine 2018-0 No 1mg 10 mg 8-21 tablet 00:00: 00 pantoprazol 2018-0 No 1mg e 20 mg 8-21 tablet,teressa 00:00: yed release 00 amlodipine 2018-0 No 1mg 10 mg 8-21 tablet 00:00: 00 pantoprazol 2018-0 No 1mg e 20 mg 8-21 tablet,teressa 00:00: yed release 00 metoprolol 2018-0 No 1mg tartrate 8-21 100 mg 00:00: tablet 00 aspirin 81 2018-0 No 1mg mg 8-21 tablet,teressa 00:00: yed release 00 metoprolol 2018-0 No 1mg tartrate 8-21 100 mg 00:00: tablet 00 glipizide 2018-0 No 1mg 10 mg 8-21 tablet 00:00: 00 glipizide 2018-0 No 1mg 10 mg 8-21 tablet 00:00: 00 amlodipine 2018-0 No 1mg 10 mg 8-21 tablet 00:00: 00 pantoprazol 2018-0 No 1mg e 20 mg 8-21 tablet,teressa 00:00: yed release 00 amlodipine 2018-0 No 1mg 10 mg 8-21 tablet 00:00: 00 pantoprazol 2018-0 No 1mg e 20 mg 8-21 tablet,teressa 00:00: yed release 00 Diclofenac 2018-0 Yes Apply Univer s Sodium 1 % 7-31 1gram to ity o f gel 00:00: affected [place] 00 area twice Medical daily Branch Diclofenac 2018-0 Yes Apply Univer s Sodium 1 % 7-31 1gram to ity o f gel 00:00: affected area twice Medical daily Branch Diclofenac 2018-0 Yes Apply Univer s Sodium 1 % 7-31 1gram to ity o f gel 00:00: affected area twice Medical daily Branch Diclofenac 2018-0 Yes Apply Univer s Sodium 1 % 7-31 1gram to ity o f gel 00:00: affected 00 area twice Medical daily Branch aspirin 81 2018-0 No 1mg mg 7-23 tablet,teressa 00:00: yed release 00 glipizide 2018-0 No 1mg 10 mg 7-23 tablet 00:00: 00 pantoprazol 2018-0 No 1mg e 40 mg 7-23 tablet,teressa 00:00: yed release 00 amlodipine 2018-0 No 1mg 10 mg 7-23 tablet 00:00: 00 aspirin 81 2018-0 No 1mg mg 7-23 tablet,teressa 00:00: yed release 00 glipizide 2018-0 No 1mg 10 mg 7-23 tablet 00:00: 00 pantoprazol 2018-0 No 1mg e 40 mg 7-23 tablet,teressa 00:00: yed release 00 amlodipine 2018-0 No 1mg 10 mg 7-23 tablet 00:00: 00 Diclofenac 2018-0 Yes Apply Univer s Sodium 1 % 4-04 1gram to ity o f gel 00:00: affected area twice Medical daily Branch Diclofenac 2018-0 Yes Apply Univer s Sodium 1 % 4-04 1gram to ity o f gel 00:00: affected area twice Medical daily Branch Diclofenac 2018-0 Yes Apply Univer s Sodium 1 % 4-04 1gram to ity o f gel 00:00: affected area twice Medical daily Branch Diclofenac 2018-0 Yes Apply Univer s Sodium 1 % 4-04 1gram to ity o f gel 00:00: affected area twice Medical daily Branch ciprofloxac 2018-0 Yes 500mg Take 500 U nivers in HCl 500 3-19 mg by ity of mg tablet 00:00: mouth. 00 Medical Branch ciprofloxac 2018-0 Yes 500mg Take 500 U nivers in HCl 500 3-19 mg by ity of mg tablet 00:00: mouth. Medical Branch ciprofloxac 0 Yes 500mg Take 500 U nivers in HCl 500 3-19 mg by ity of mg tablet 00:00: mouth. Medical Branch ciprofloxac 0 Yes 500mg Take 500 U nivers in HCl 500 3-19 mg by ity of mg tablet 00:00: mouth. Medical Branch ciprofloxac 0 No 1mg in 500 mg 3-19 tablet 00:00: 00 ciprofloxac 0 No 1mg in 500 mg 3-19 tablet 00:00: 00 atorvastati 0 Yes 40mg Take 40 mg Univers n 20 mg 3-04 by mouth. ity of tablet 00:00: Medical Branch nitrofurant 0 Yes 100mg Take 100 U nivers oin 100 mg 3-04 mg by ity of capsule 00:00: mouth daily. Medical Branch atorvastati Yes 40mg Take 40 mg Univers n 20 mg 3-04 by mouth. ity of tablet 00:00: Medical Branch nitrofurant Yes 100mg Take 100 U nivers oin 100 mg 3-04 mg by ity of capsule 00:00: mouth daily. Medical Branch atorvastati Yes 40mg Take 40 mg Univers n 20 mg 3-04 by mouth. ity of tablet 00:00: Medical Branch nitrofurant 0 Yes 100mg Take 100 U nivers oin 100 mg 3-04 mg by ity of capsule 00:00: mouth daily. Medical Branch atorvastati Yes 40mg Take 40 mg Univers n 20 mg 3-04 by mouth. ity of tablet 00:00: Medical Branch nitrofurant Yes 100mg Take 100 U nivers oin 100 mg 3-04 mg by ity of capsule 00:00: mouth daily. Medical Branch JANUMET XR Yes TOME JAGDISH Uni vers 100-1,000 2-27 TABLETA ity of mg per 00:00: POR V?A [place] tablet 00 ORAL DOS Medical VECES AL Branch D?A glipiZIDE Yes 10mg Take 10 mg Un rodger 10 mg 2-27 by mouth 2 ity of tablet 00:00: (two) times Medical daily. Branch SARAH PEN Yes misc Univers NEEDLE 32 2-27 ity of gauge x 00:00: " Nd Medical Branch amLODIPine Yes 10mg [...] 32 2-27 ity of gauge x 00:00: " Nd 00 Medical Branch amLODIPine Yes 10mg Take [...] 2-27 ity of gauge x 00:00: [place] 5/32" Ndle Medical Branch amLODIPine Yes 10mg Take 10 [...] mouth [place] 00 daily. Medical Branch metoprolol 0 Yes 100mg Take 100 Un rodger tartrate 2-27 mg by ity of 100 mg 00:00: mouth [place] tablet 00 daily. Medical Branch losartan-hy 0 Yes TOME JAGDISH Un rodger drochloroth 2-27 [...] ORAL DOS Medical VECES AL Branch D?A aspirin 81 0 No 1mg mg 2-27 tablet,teressa 00:00: yed release 00 metoprolol 2017-0 No 1mg tartrate 2-27 100 mg 00:00: tablet 00 naproxen 2017-0 No 1mg 500 mg 2-27 tablet 00:00: 00 glipizide 2018-0 No 1mg 10 mg 2-27 tablet 00:00: 00 glipiZIDE 2017-0 Yes 10mg Take 10 mg Un rodger 10 mg 2-27 by mouth 2 ity of tablet 00:00: (two) [place] 00 times Medical daily. Branch amlodipine 0 No 1mg 10 mg 2-27 tablet 00:00: 00 pantoprazol 2017-0 No 1mg e 40 mg 2-27 tablet,teressa 00:00: yed release 00 aspirin 81 2017-0 No 1mg mg 2-27 tablet,teressa 00:00: yed release 00 metoprolol 2017-0 No 1mg tartrate 2-27 100 mg 00:00: tablet 00 naproxen 2018-0 No 1mg 500 mg 2-27 tablet 00:00: 00 glipizide 2018-0 No 1mg 10 mg 2-27 tablet 00:00: 00 amlodipine 2017-0 No 1mg 10 mg 2-27 tablet 00:00: 00 pantoprazol 2018-0 No 1mg e 40 mg 2-27 tablet,teressa 00:00: yed release SARAH PEN Yes misc Univers NEEDLE 32 2-27 ity of gauge x 00:00: " Ndle Medical Branch amLODIPine Yes 10mg Take 10 [...] mg by ity of tablet 00:00: mouth [place] 00 daily. Medical Branch metoprolol Yes 100mg [...] (two) Branch times daily. 35 units BID VITAMIN D2 Yes TAKE 1 Unive rs 50,000 unit 2-14 CAPSULE ity o f capsule 00:00: ONCE A [place] WEEK FOR Medical 13 WEEKS Branch VITAMIN D2 Yes TAKE 1 Unive rs 50,000 unit 2-14 CAPSULE ity o f capsule 00:00: ONCE A [place] WEEK FOR Medical 13 WEEKS Branch VITAMIN D2 Yes TAKE 1 Unive rs 50,000 unit 2-14 CAPSULE ity o f capsule 00:00: ONCE A [place] WEEK FOR Medical 13 WEEKS Branch VITAMIN D2 Yes TAKE 1 Unive rs 50,000 unit 2-14 CAPSULE ity o f capsule 00:00: ONCE A [place] WEEK FOR Medical 13 WEEKS Branch Vitamin D2 2018-0 No 1unit 50,000 unit 2-14 capsule 00:00: 00 Vitamin D2 2018-0 No 1unit 50,000 unit 2-14 capsule 00:00: 00 alendronate 2018-0 Yes 10mg Take 10 mg Univers 10 mg 2-13 by mouth ity of tablet 00:00: daily. [address] alendronate 2018-0 Yes 10mg Take 10 mg Univers 10 mg 2-13 by mouth ity of tablet 00:00: daily. [address] alendronate 2018-0 Yes 10mg Take 10 mg Univers 10 mg 2-13 by mouth ity of tablet 00:00: daily. [address] alendronate 2018-0 Yes 10mg Take 10 mg Univers 10 mg 2-13 by mouth ity of tablet 00:00: daily. [address] alendronate 2018-0 No 1mg 10 mg 2-12 tablet 00:00: 00 alendronate 2018-0 No 1mg 10 mg 2-12 tablet 00:00: 00 aspirin 81 2017- No 1mg mg 1-28 tablet,teressa 00:00: yed release 00 glipizide 2017-1 No 1mg 10 mg 1-28 tablet 00:00: 00 pantoprazol 2017-1 No 1mg e 40 mg 1-28 tablet,teressa 00:00: yed release 00 amlodipine 2017-1 No 1mg 10 mg 1-28 tablet 00:00: 00 gabapentin 2016-1 No 1mg 100 mg 1-28 capsule 00:00: 00 aspirin 81 2017- No 1mg mg 1-28 tablet,teressa 00:00: yed release 00 glipizide 2017-1 No 1mg 10 mg 1-28 tablet 00:00: 00 pantoprazol 2017-1 No 1mg e 40 mg 1-28 tablet,teressa 00:00: yed release 00 amlodipine 2017- No 1mg 10 mg 1-28 tablet 00:00: 00 gabapentin 2017- No 1mg 100 mg 1-28 capsule 00:00: 00 pantoprazol 2017- No 1mg e 40 mg 0-30 tablet,teressa 00:00: yed release 00 gabapentin 2016-1 No 1mg 100 mg 0-30 capsule 00:00: 00 pantoprazol 2016- No 1mg e 40 mg 0-30 tablet,teressa 00:00: yed release 00 gabapentin 2017-1 No 1mg 100 mg 0-30 capsule 00:00: 00 aspirin 81 2017-1 No 1mg mg 0-24 tablet,teressa 00:00: yed release 00 naproxen 2017-1 No 1mg 500 mg 0-24 tablet 00:00: 00 glipizide 2017-1 No 1mg 10 mg 0-24 tablet 00:00: 00 amlodipine 2017-1 No 1mg 10 mg 0-24 tablet 00:00: 00 gabapentin 2017-1 No 1mg 100 mg 0-24 capsule 00:00: 00 aspirin 81 2017-1 No 1mg mg 0-24 tablet,teressa 00:00: yed release 00 naproxen 2017-1 No 1mg 500 mg 0-24 tablet 00:00: 00 glipizide 2017-1 No 1mg 10 mg 0-24 tablet 00:00: 00 amlodipine 2017-1 No 1mg 10 mg 0-24 tablet 00:00: 00 gabapentin 2017-1 No 1mg 100 mg 0-24 capsule 00:00: 00 Alcohol 2017-0 No 1 Prep Pads 8-24 00:00: 00 Alcohol 2017-0 No 1 Prep Pads 8-24 00:00: 00 aspirin 81 2017-0 No 1mg mg 8-22 tablet,teressa 00:00: yed release 00 glipizide 2017-0 No 1mg 10 mg 8-22 tablet 00:00: 00 naproxen 2017-0 No 1mg 500 mg 8-22 tablet 00:00: 00 amlodipine 2017-0 No 1mg 10 mg 8-22 tablet 00:00: 00 pantoprazol 2017-0 No 1mg e 40 mg 8-22 tablet,teressa 00:00: yed release 00 gabapentin 2017-0 No 1mg 100 mg 8-22 capsule 00:00: 00 Vitamin D2 2017-0 No 1unit 50,000 unit 8-22 capsule 00:00: 00 aspirin 81 2017-0 No 1mg mg 8-22 tablet,teressa 00:00: yed release 00 glipizide 2017-0 No 1mg 10 mg 8-22 tablet 00:00: 00 naproxen 2017-0 No 1mg 500 mg 8-22 tablet 00:00: 00 amlodipine 2017-0 No 1mg 10 mg 8-22 tablet 00:00: 00 pantoprazol 2017-0 No 1mg e 40 mg 8-22 tablet,teressa 00:00: yed release 00 gabapentin 2017-0 No 1mg 100 mg 8-22 capsule 00:00: 00 Vitamin D2 2017-0 No 1unit 50,000 unit 8-22 capsule 00:00: 00 glipizide 2017-0 No 1mg 10 mg 7-24 tablet 00:00: 00 aspirin 81 2017-0 No 1mg mg 7-24 tablet,teressa 00:00: yed release 00 naproxen 2017-0 No 1mg 500 mg 7-24 tablet 00:00: 00 amlodipine 2017-0 No 1mg 10 mg 7-24 tablet 00:00: 00 gabapentin 2017-0 No 1mg 100 mg 7-24 capsule 00:00: 00 glipizide 2017-0 No 1mg 10 mg 7-24 tablet 00:00: 00 aspirin 81 2017-0 No 1mg mg 7-24 tablet,teressa 00:00: yed release 00 naproxen 2017-0 No 1mg 500 mg 7-24 tablet 00:00: 00 amlodipine 2017-0 No 1mg 10 mg 7-24 tablet 00:00: 00 gabapentin 2017-0 No 1mg 100 mg 7-24 capsule 00:00: 00 glipizide 2017-0 No 1mg 10 mg 4-24 tablet 00:00: 00 aspirin 81 2017-0 No 1mg mg 4-24 tablet,teressa 00:00: yed release 00 amlodipine 2017-0 No 1mg 5 mg tablet 4-24 00:00: 00 prednisone 2017-0 No 1mg 20 mg 4-24 tablet 00:00: 00 naproxen 2017-0 No 1mg 500 mg 4-24 tablet 00:00: 00 lovastatin 2017-0 No 2mg 20 mg 4-24 tablet 00:00: 00 glipizide 2017-0 No 1mg 10 mg 4-24 tablet 00:00: 00 aspirin 81 2017-0 No 1mg mg 4-24 tablet,teressa 00:00: yed release 00 amlodipine 2017-0 No 1mg 5 mg tablet 4-24 00:00: 00 prednisone 2017-0 No 1mg 20 mg 4-24 tablet 00:00: 00 naproxen 2017-0 No 1mg 500 mg 4-24 tablet 00:00: 00 lovastatin 2017-0 No 2mg 20 mg 4-24 tablet 00:00: 00 glipizide 2017-0 No 1mg 10 mg 2-22 tablet 00:00: 00 glipizide 2017-0 No 1mg 10 mg 2-22 tablet 00:00: 00 amlodipine 2017-0 No 1mg 5 mg tablet 2-06 00:00: 00 aspirin 81 2017-0 No 1mg mg 2-06 tablet,teressa 00:00: yed release 00 lovastatin 2017-0 No 2mg 20 mg 2-06 tablet 00:00: 00 amlodipine 2017-0 No 1mg 5 mg tablet 2-06 00:00: 00 aspirin 81 2017-0 No 1mg mg 2-06 tablet,teressa 00:00: yed release 00 lovastatin 2017-0 No 2mg 20 mg 2-06 tablet 00:00: 00 lovastatin 2016-1 No 2mg 20 mg 2-14 tablet 00:00: 00 lovastatin 2016-1 No 2mg 20 mg 2-14 tablet 00:00: 00 amlodipine 2016-1 No 1mg 5 mg tablet 2-12 00:00: 00 amlodipine 2016-1 No 1mg 5 mg tablet 2-12 00:00: 00 amlodipine 2016-1 No 1mg 5 mg tablet 2-12 00:00: 00 amlodipine 2016-1 No 1mg 5 mg tablet 2-12 00:00: 00 Immunizations Ordered Immunization Filled Immunization Date Status Commen ts Source Name Name Myron DICKINSONID-19 2021-08-24 Completed Vaccine 00:00:00 [place]aa COVID-19 2021-08-24 Completed Vaccine 00:00:00 [place]aa COVID-19 2020-10-26 Completed Vaccine 00:00:00 Moderna COVID-19 2020-10-26 Completed Vaccine 00:00:00 [place]aa COVID-19 2020-09-15 Completed Vaccine 00:00:00 [place]aa COVID-19 2020-09-15 Completed Vaccine 00:00:00 Influenza, seasonal, 2019-05-12 Completed inj 00:00:00 Influenza, seasonal, 2019-05-12 Completed inj 00:00:00 zoster 2019-02-12 Completed 00:00:00 pneumococcal 2019-02-12 Completed polysacchar 00:00:00 zoster 2019-02-12 Completed 00:00:00 pneumococcal 2019-02-12 Completed polysacchar 00:00:00 Td (adult) preservative 2016-09-26 Completed 00:00:00 Td (adult) preservative 2016-09-26 Completed 00:00:00 Vital Signs Vital Name Observation Time Observation Value Comments Source BP Systolic 2022-01-04 14:48:00 134 mm[Hg] BP Diastolic 2022-01-04 14:48:00 82 mm[Hg] Weight Measured 2022-01-04 14:48:00 164.60 pounds Height Measured 2022-01-04 14:48:00 61.50 inches Body Temperature 2022-01-04 14:48:00 98.20 degrees Heart Rate 2022-01-04 14:48:00 105.00 /min Respiratory Rate 2022-01-04 14:48:00 BP Systolic 2021-12-06 14:02:00 139 mm[Hg] BP Diastolic 2021-12-06 14:02:00 84 mm[Hg] Weight Measured 2021-12-06 14:02:00 166.00 pounds Height Measured 2021-12-06 14:02:00 61.50 inches Body Temperature 2021-12-06 14:02:00 Heart Rate 2021-12-06 14:02:00 92.00 /min Respiratory Rate 2021-12-06 14:02:00 66.00 /min BP Systolic 2021-10-26 14:34:00 118 mm[Hg] BP Diastolic 2021-10-26 14:34:00 79 mm[Hg] Weight Measured 2021-10-26 14:34:00 170.00 pounds Height Measured 2021-10-26 14:34:00 61.50 inches Body Temperature 2021-10-26 14:34:00 98.30 degrees Heart Rate 2021-10-26 14:34:00 98.00 /min Respiratory Rate 2021-10-26 14:34:00 18.00 /min BP Diastolic 2021-09-20 14:53:00 81 mm[Hg] Weight Measured 2021-09-20 14:53:00 168.00 pounds Height Measured 2021-09-20 14:53:00 61.50 inches Body Temperature 2021-09-20 14:53:00 98.10 degrees Heart Rate 2021-09-20 14:53:00 70.00 /min Respiratory Rate 2021-09-20 14:53:00 17.00 /min BP Systolic 2021-09-20 14:53:00 146 mm[Hg] BP Systolic 2021-08-24 13:58:00 140 mm[Hg] BP Diastolic 2021-08-24 13:58:00 86 mm[Hg] Weight Measured 2021-08-24 13:58:00 166.80 pounds Height Measured 2021-08-24 13:58:00 61.50 inches Body Temperature 2021-08-24 13:58:00 98.50 degrees Heart Rate 2021-08-24 13:58:00 75.00 /min Respiratory Rate 2021-08-24 13:58:00 17.00 /min BP Systolic 2021-07-12 11:40:00 174 mm[Hg] BP Diastolic 2021-07-12 11:40:00 97 mm[Hg] Weight Measured 2021-07-12 11:40:00 169.20 pounds Height Measured 2021-07-12 11:40:00 61.50 inches Body Temperature 2021-07-12 11:40:00 97.50 degrees Heart Rate 2021-07-12 11:40:00 95.00 /min Respiratory Rate 2021-07-12 11:40:00 16.00 /min BP Systolic 2021-05-11 14:17:00 130 mm[Hg] BP Diastolic 2021-05-11 14:17:00 80 mm[Hg] Weight Measured 2021-05-11 14:17:00 166.00 pounds Height Measured 2021-05-11 14:17:00 61.50 inches Body Temperature 2021-05-11 14:17:00 98.20 degrees Heart Rate 2021-05-11 14:17:00 68.00 /min Respiratory Rate 2021-05-11 14:17:00 16.00 /min BP Systolic 2021-03-30 15:15:00 121 mm[Hg] BP Diastolic 2021-03-30 15:15:00 70 mm[Hg] Weight Measured 2021-03-30 15:15:00 166.00 pounds Height Measured 2021-03-30 15:15:00 61.50 inches Body Temperature 2021-03-30 15:15:00 Heart Rate 2021-03-30 15:15:00 Respiratory Rate 2021-03-30 15:15:00 BP Systolic 2021-03-16 14:51:00 121 mm[Hg] BP Diastolic 2021-03-16 14:51:00 78 mm[Hg] Weight Measured 2021-03-16 14:51:00 166.60 pounds Height Measured 2021-03-16 14:51:00 61.50 inches Body Temperature 2021-03-16 14:51:00 98.20 degrees Heart Rate 2021-03-16 14:51:00 77.00 /min Respiratory Rate 2021-03-16 14:51:00 BP Systolic 2021-03-10 16:17:00 185 mm[Hg] BP Diastolic 2021-03-10 16:17:00 106 mm[Hg] Weight Measured 2021-03-10 16:17:00 167.40 pounds Height Measured 2021-03-10 16:17:00 61.50 inches Body Temperature 2021-03-10 16:17:00 98.20 degrees Heart Rate 2021-03-10 16:17:00 86.00 /min Respiratory Rate 2021-03-10 16:17:00 17.00 /min BP Systolic 2021-01-26 14:53:00 129 mm[Hg] BP Diastolic 2021-01-26 14:53:00 78 mm[Hg] Weight Measured 2021-01-26 14:53:00 163.40 pounds Height Measured 2021-01-26 14:53:00 61.50 inches Body Temperature 2021-01-26 14:53:00 98.10 degrees Heart Rate 2021-01-26 14:53:00 80.00 /min Respiratory Rate 2021-01-26 14:53:00 16.00 /min Procedures Procedure Date / Time Performed Performing Clinician Sour e XR ANKLE 3+ VW LEFT 2020-10-14 18:55:23 Leslie Martinez [facility] XR HIPS 3 VW LEFT 2020-10-14 18:55:12 Leslie Martinez [facility] XR KNEE 3 VW LEFT 2020-10-14 18:54:59 Leslie Martinez [facility] ASSIGNMENT OF BENEFITS 2020-10-14 18:28:36 Doctor Unassigned, No [facility] Ekg 2019-07-08 00:00:00 Plan of Care Planned Activity Planned Date Details Comments Source Goal Plan of Care Note [code = 78013-4] Goal Plan of Care Note [code = 27814-5] Goal Plan of Care Note [code = 15389-5] Goal Plan of Care Note [code = 34068-0] Goal Plan of Care Note [code = 60053-1] Goal Plan of Care Note [code = 32925-0] Goal Plan of Care Note [code = 20538-0] Goal Plan of Care Note [code = 55049-0] Goal Plan of Care Note [code = 59753-5] Goal Plan of Care Note [code = 53049-3] Goal Plan of Care Note [code = 47082-1] Goal Plan of Care Note [code = 74954-4] Goal Plan of Care Note [code = 42747-4] Goal Plan of Care Note [code = 81181-6] Goal Plan of Care Note [code = 97505-0] Goal Plan of Care Note [code = 90428-4] Goal Plan of Care Note [code = 10222-6] Goal Plan of Care Note [code = 09897-3] Goal Plan of Care Note [code = 41250-1] Goal Plan of Care Note [code = 75085-3] Goal Plan of Care Note [code = 70697-4] Goal Plan of Care Note [code = 62889-1] Goal Plan of Care Note [code = 73263-6] Goal Plan of Care Note [code = 52565-1] Goal Plan of Care Note [code = 29219-5] Goal Plan of Care Note [code = 71701-8] Goal Plan of Care Note [code = 14892-7] Goal Plan of Care Note [code = 78026-5] Goal Plan of Care Note [code = 97982-9] Goal Plan of Care Note [code = 01443-8] Goal Plan of Care Note [code = 84626-1] Goal Plan of Care Note [code = 48319-2] Goal Plan of Care Note [code = 43398-2] Goal Plan of Care Note [code = 35164-7] Goal Plan of Care Note [code = 51718-1] Goal Plan of Care Note [code = 85881-9] Goal Plan of Care Note [code = 85594-8] Goal Plan of Care Note [code = 35264-4] Goal Plan of Care Note [code = 07799-9] Goal Plan of Care Note [code = 20124-2] Goal Plan of Care Note [code = 41923-8] Goal Plan of Care Note [code = 60871-8] Goal Plan of Care Note [code = 27467-4] Goal Plan of Care Note [code = 42971-5] Goal Plan of Care Note [code = 34250-2] Goal Plan of Care Note [code = 24785-0] Goal Plan of Care Note [code = 06475-6] Goal Plan of Care Note [code = 74945-2] Goal Plan of Care Note [code = 00154-2] Goal Plan of Care Note [code = 99713-3] Goal Plan of Care Note [code = 27719-7] Goal Plan of Care Note [code = 34107-9] Goal Plan of Care Note [code = 38800-3] Goal Plan of Care Note [code = 64376-4] Goal Plan of Care Note [code = 84673-7] Goal Plan of Care Note [code = 65807-8] Goal Plan of Care Note [code = 14523-2] Goal Plan of Care Note [code = 51683-5] Goal Plan of Care Note [code = 45949-7] Goal Plan of Care Note [code = 44500-0] Goal Plan of Care Note [code = 88800-0] Goal Plan of Care Note [code = 72446-1] Goal Plan of Care Note [code = 35149-3] Goal Plan of Care Note [code = 80940-7] Goal Plan of Care Note [code = 86616-6] Goal Plan of Care Note [code = 25235-8] Goal Plan of Care Note [code = 03149-5] Goal Plan of Care Note [code = 16498-7] Goal Plan of Care Note [code = 01219-8] Goal Plan of Care Note [code = 08080-2] Encounters Start End Encounter Admission Attending Care Care Encounter Source Date/Time Date/Time Type Type Clinicians Facility Department ID 2022-01-04 2022-01-04 Outpatient [id number] 00:00:00 00:00:00 Visit [id number] 2021-12-06 2021-12-06 Outpatient [id number] 00:00:00 00:00:00 Visit [id number] 2020-10-14 2020-10-14 [facility] [id number] Univers 13:34:04 23:59:00 Encounter Leslie Simon [id number] [facility]y [facility] [place] [id number] [facility] [id number] [facility] [address] 2020-10-14 2020-10-14 [facility] [id number] Univers 13:33:50 13:33:50 Encounter Leslie Simon [id number] [facility] [place] [id number] [facility] [id number] [facility] [address] 2020-10-14 2020-10-14 [facility] [id number] Univers 13:30:00 13:32:00 Encounter Leslie Simon [id number] [facility] [place] [id number] [facility] [id number] [address] 2020-10-14 2020-10-14 Outpatient [facility] [id number] Univers 13:30:00 13:30:00 LESLIE [id number] marta [facility] 2020-10-14 2020-10-14 Outpatient R [facility] [id number] Univers 00:00:00 00:00:00 LESLIE lozano [facility] 2020-10-14 2020-10-14 Orders Doctor AG [id number] Univers 00:00:00 00:00:00 Only Unassigned, RACHID [id number] [place] [facility] [id number] Fredy as [phone] [place] [id number] Branch Results Test Description Test Time Test Comments Results Result Comments Source CULTURE, URINE 2022-01-07 SPECIMEN NUMBER: 14:31:20 [id number] CULTURE, URINE SPECIMEN NUMBER: [id number] SPECIMEN COMMENT: URINE SOURCE: URINE REPORT STATUS: FINAL ISOLATE NUMBER 1: ORGANISM: 01/06/2022 >100,000 CFU/ML GRAM NEGATIVE BACILLI IDENTIFICATION: 01/07/2022 KLEBSIELLA PNEUMONIAE K. PNEUMONIAE AMOX ICILLIN/CA SENSITIVE <=8/4AMPICILLIN RESISTANT >16CEFAZOLIN SENSITIVE <=2CEFTRIAXONE SENSITIVE <=1CIPROFLOXACIN SENSITIVE <=1LEVOFLOXACIN SENSITIVE <=2NITROFURANTOIN RESISTANT >64PIP/TAZOBAC SENSITIVE <=16TETRACYCLINE SENSITIVE <=4TOBRAMYCIN SENSITIVE <=4TRIMETH/SULFA SENSITIVE <=2/38 NOTE: NUMBERS DISPLAYED REPRESENT MINIMUM INHIBITORY CONCENTRATION (MARTA) WHICH IS EXPRESSED IN MCG/ML. UNLESS OTHERWISE INDICATED, ALL TESTING PERFORMED [facility], [facility]. [address] [place] [id number] [employer]IC: KEN NEWMAN M.D. CLIA NUMBER [id number] [place]. [id number] OCCULT BLD,[facility]AL,[facility] 2021-12-28 16:34:09 Test Item Value Reference Range Interpretation Comme nts OCCULT BLD, FECAL (test code NEGATIVE NEGATIVE Note: Specimen received in an = [phone]) collect ion system. Results and details of analysis reviewed by DOC MASSEY M.D. UNLESS OTHERWISE INDIC ATED, ALL TESTING PERFORMED [facility], [facility]. [address] [place] [address] 7875 [id number] ELECTRIC SHAVER MECHANIC: KEN NEWMAN M.D. CLIA NUMBER [id number] CAP ACCREDITATION N O. [id number] OCCULT BLD,FECAL,IMMUNOASSAY [id number] 00:00:00 Test Item Value Reference Range Interpretation Comments OCCULT BLD, FECAL (test code = NEGATIVE 45590) HEMOGLOBIN [id number] 04:08:08 Test Item Value Reference Range Interpretation Comments HEMOGLOBIN A1c (test 8.3 % 4.2-5.6 H AMERIC AN DIABETES code = 29056) ASSOCIATION IDELINES FOR HGB A1C: PREDIABETES/INC REASED RISK . . . . . . . 5.7 -6.4% DIAGNOSIS OF DI ABETES . . . . . . . . . >=6 .5% WITH CONFIRMATION OR APPROPRIATE SYMPTOMS NOTE: ASSAY MAY BE AFFECTED BY HEMOGLOBINOPATH IES (SICKLE CELL ANEMIA, S- C DISEASE, OTHERS) OR KATYA FICIALLY LOWERED BY DECR EASED RED CELL SURVIVAL ( HEMOLYTIC ANEMIAS, BLOOD LOSS, ETC.). CONSIDER ALTERN ATE TESTING OR LABORATORY C ONSULTATION. UNLESS OTHERWIS E INDICATED, ALL TESTING [facility], [facility]. [address] [place] [address] LABORATORY DIRE CTOR: KEN NEWMAN M.D. CLIA NUMBER [id number] [facility] [place]. [id number] HEMOGLOBIN [id number] 00:00:00 Test Item Value Reference Range Interpretation Comments HEMOGLOBIN A1c (test code = 12674) 8.3 % HEMOGLOBIN [id number] 00:00:00 Test Item Value Reference Range Interpretation Comments HEMOGLOBIN A1c (test code = 99778) 8.3 % HEMOGLOBIN [id number] 00:00:00 Test Item Value Reference Range Interpretation Comments HEMOGLOBIN A1c (test code = 19389) 8.3 % HEMOGLOBIN [id number] 00:00:00 Test Item Value Reference Range Interpretation Comments HEMOGLOBIN A1c (test code = 96769) 8.3 % CULTURE, [id number] 12:05:43SPECIMEN NUMBER: [id number] CULTURE, URINE SPECIMEN NUMBER: [id number] SPECIMEN COMMENT: URINE SOURCE:URINE REPORT STATUS: FINAL ISOLATE NUMBER 1: ORGANISM: 09/23/2021 >100,000 CFU/ML GRAM NEGATIVE BA CILLI IDENTIFICATION: 09/24/2021 ESCHERICHIA COLI E. COLI AMOXICILLIN/CA SENSITIVE <=8/4AMPICILLIN RESISTANT >16CEFAZOLIN SENSITIVE <=2CEFTRIAXONE SENSITIVE <=1CIPROFLOXACIN SENSITIVE <=1LEVOFLOXACIN SENSITIVE <=2NITROFURANTOIN SENSITIVE <=32PIP/TAZOBAC SENSITIVE <=16TETRACYCLINE RESISTANT >8TOBRAMYCIN SENSITIVE <=4TRIMETH/SULFA RESISTANT >2/38 NOTE: NUMBERS DISPLAYED REPRESENT MINIMUM INHIBITORY CONCENTRATION (MARTA) WHICH IS EXPRESSED IN MCG/ML. CULTURE, [id number] 00:00:00 Test Item Value Reference Range Interpretation Comments CULTURE, URINE (test SPECIMEN NUMBER: code = 35258) [id number] CULTURE, [id number] 00:00:00 Test Item Value Reference Range Interpretation Comments CULTURE, URINE (test SPECIMEN NUMBER: code = 79307) [id number] TSH, THIRD [id number] 03:43:01 Test Item Value Reference Range Interpretation Comments TSH, THIRD 2.470 UIU/ML 0.400-4.100 UNLESS OTHERWI SE GENERATION (test INDICATED, ALL TESTING code = 2821) PERFORMED [facility], [facility] [address] [place] [address] DIRECTOR: KEN NEWMAN M.D. CLIA NUMBER [id number] CAP ACCREDITATION N O. [id number] CBC W/AUTO DIFF WITH [id number] 03:14:58 Test Item Value Reference Range Interpretation Comments WBC (test code = 6.8 K/UL 3.5-11.0 1001) RBC (test code = 4.05 M/UL 3.80-5.40 1002) HEMOGLOBIN (test code 12.6 G/DL 11.5-15.5 = 1003) HEMATOCRIT (test code 36.5 % 34.0-45.0 = 1004) MCV (test code = 90.1 fL 80.0-99.0 1005) MCH (test code = 31.1 PG 25.0-33.0 1006) MCHC (test code = 34.5 G/DL 31.0-36.0 1007) RDW (test code = 13.4 % 11.5-15.0 1038) NEUTROPHILS (test 46.2 % code = 1008) LYMPHOCYTES (test 41.5 % code = 1010) MONOCYTES (test code 8.8 % = 1011) EOSINOPHILS (test 2.5 % code = 1012) BASOPHILS (test code 0.6 % = 1013) IMMATURE GRANULOCYTES 0.4 % (test code = 1036) NUCLEATED RBCS (test 0.0 /100 WBC'S See_Comment [Aut omated code = 1065) message] The sy stem which generated this result transmitted reference range : 0.0. The refere nce range was not u sed to interpret th is result as normal/abnormal . PLATELET COUNT (test 214 K/UL 130-400 code = 1015) ABSOLUTE NEUTROPHILS 3.13 K/UL 1.50-7.50 (test code = 1066) ABSOLUTE LYMPHOCYTES 2.82 K/UL 1.00-4.00 (test code = 1067) ABSOLUTE MONOCYTES 0.60 K/UL 0.20-1.00 (test code = 1068) ABSOLUTE EOSINOPHILS 0.17 K/UL 0.00-0.50 (test code = 1040) ABSOLUTE BASOPHILS 0.04 K/UL 0.00-0.20 (test code = 1069) ABS IMMATURE 0.03 K/UL 0.00-0.10 GRANULOCYTES (test code = 1020) ABS NUCLEATED RBCS 0.00 K/UL 0.00-0.11 (test code = 34691) COMPREHENSIVE METABOLIC [id number] 02:59:52 Test Item Value Reference Range Interpretation Comments GLUCOSE (test code = 188 MG/DL 70-99 H 2216) BUN (test code = 40 MG/DL 8-23 H 2207) CREATININE (test 1.36 MG/DL 0.60-1.30 H code = 2214) eGFR (2020 CKD-EPI) 41 ML/MIN/1.73 >60 L (test code = 77942) CALC BUN/CREAT (test 29 RATIO 6-28 H code = 2235) SODIUM (test code = 145 MEQ/L 762-763 2565) POTASSIUM (test code 5.2 MEQ/L 3.5-5.4 = 2227) CHLORIDE (test code 109 MEQ/L 95-107 H = 2214) CARBON DIOXIDE (test 21 MEQ/L 19-31 code = 220) CALCIUM (test code = 9.7 MG/DL 8.5-10.5 2208) PROTEIN, TOTAL (test 7.6 G/DL 6.1-8.3 code = 222) ALBUMIN (test code = 4.4 G/DL 3.5-5.2 2200) CALC GLOBULIN (test 3.2 G/DL 1.9-3.7 code = 2240) CALC A/G RATIO (test 1.4 RATIO 1.0-2.6 code = 2234) BILIRUBIN, TOTAL 0.3 MG/DL See_Comment [Automated message] (test code = 2207) The syste m which generated this result transmit ellie reference range : <=1.2. The refe rence range was not u sed to interpret th is result as normal/abnormal . ALKALINE PHOSPHATASE 84 U/L 40-142 (test code = 2203) AST (test code = 15 U/L 9-40 8) ALT (test code = 14 U/L 5-40 9) CBC W/AUTO [id number] 00:00:00 Test Item Value Reference Range Interpretation Comments WBC (test code = 1001) 6.8 K/UL RBC (test code = 1002) 4.05 M/UL HEMOGLOBIN (test code = 1003) 12.6 G/DL HEMATOCRIT (test code = 1004) 36.5 % MCV (test code = 1005) 90.1 fL MCH (test code = 1006) 31.1 PG MCHC (test code = 1007) 34.5 G/DL RDW (test code = 1038) 13.4 % NEUTROPHILS (test code = 1008) 46.2 % LYMPHOCYTES (test code = 1010) 41.5 % MONOCYTES (test code = 1011) 8.8 % EOSINOPHILS (test code = 1012) 2.5 % BASOPHILS (test code = 1013) 0.6 % IMMATURE GRANULOCYTES (test 0.4 % code = 1036) NUCLEATED RBCS (test code = 0.0 /100WBC'S 1065) PLATELET COUNT (test code = 214 K/UL 1015) ABSOLUTE NEUTROPHILS (test code 3.13 K/UL = 1066) ABSOLUTE LYMPHOCYTES (test code 2.82 K/UL = 1067) ABSOLUTE MONOCYTES (test code = 0.60 K/UL 1068) ABSOLUTE EOSINOPHILS (test code 0.17 K/UL = 1040) ABSOLUTE BASOPHILS (test code = 0.04 K/UL 1069) ABS IMMATURE GRANULOCYTES (test 0.03 K/UL code = 1020) ABS NUCLEATED RBCS (test code = 0.00 K/UL 64986) CBC W/AUTO [id number] 00:00:00 Test Item Value Reference Range Interpretation Comments WBC (test code = 1001) 6.8 K/UL RBC (test code = 1002) 4.05 M/UL HEMOGLOBIN (test code = 1003) 12.6 G/DL HEMATOCRIT (test code = 1004) 36.5 % MCV (test code = 1005) 90.1 fL MCH (test code = 1006) 31.1 PG MCHC (test code = 1007) 34.5 G/DL RDW (test code = 1038) 13.4 % NEUTROPHILS (test code = 1008) 46.2 % LYMPHOCYTES (test code = 1010) 41.5 % MONOCYTES (test code = 1011) 8.8 % EOSINOPHILS (test code = 1012) 2.5 % BASOPHILS (test code = 1013) 0.6 % IMMATURE GRANULOCYTES (test 0.4 % code = 1036) NUCLEATED RBCS (test code = 0.0 /100WBC'S 1065) PLATELET COUNT (test code = 214 K/UL 1015) ABSOLUTE NEUTROPHILS (test code 3.13 K/UL = 1066) ABSOLUTE LYMPHOCYTES (test code 2.82 K/UL = 1067) ABSOLUTE MONOCYTES (test code = 0.60 K/UL 1068) ABSOLUTE EOSINOPHILS (test code 0.17 K/UL = 1040) ABSOLUTE BASOPHILS (test code = 0.04 K/UL 1069) ABS IMMATURE GRANULOCYTES (test 0.03 K/UL code = 1020) ABS NUCLEATED RBCS (test code = 0.00 K/UL 55596) COMPREHENSIVE METABOLIC [id number] 00:00:00 Test Item Value Reference Range Interpretation Comments GLUCOSE (test code = 2217) 188 MG/DL BUN (test code = 2208) 40 MG/DL CREATININE (test code = 2214) 1.36 MG/DL eGFR (2020 CKD-EPI) (test code 41 ML/MIN/1.73 = 43738) CALC BUN/CREAT (test code = 29 RATIO 2235) SODIUM (test code = 2231) 145 MEQ/L POTASSIUM (test code = 2228) 5.2 MEQ/L CHLORIDE (test code = 2215) 109 MEQ/L CARBON DIOXIDE (test code = 21 MEQ/L 2205) CALCIUM (test code = 2209) 9.7 MG/DL PROTEIN, TOTAL (test code = 7.6 G/DL 2228) ALBUMIN (test code = 2201) 4.4 G/DL CALC GLOBULIN (test code = 3.2 G/DL 0) CALC A/G RATIO (test code = 1.4 RATIO 2233) BILIRUBIN, TOTAL (test code = 0.3 MG/DL 2206) ALKALINE PHOSPHATASE (test 84 U/L code = 2204) AST (test code = 2218) 15 U/L ALT (test code = 2219) 14 U/L [id number] 00:00:00 Test Item Value Reference Range Interpretation Comments TSH, THIRD GENERATION (test code 2.470 UIU/ML = 2821) [id number] 00:00:00 Test Item Value Reference Range Interpretation Comments TSH, THIRD GENERATION (test code 2.470 UIU/ML = 2821) CBC W/AUTO [id number] 00:00:00 Test Item Value Reference Range Interpretation Comments WBC (test code = 1001) 6.8 K/UL RBC (test code = 1002) 4.05 M/UL HEMOGLOBIN (test code = 1003) 12.6 G/DL HEMATOCRIT (test code = 1004) 36.5 % MCV (test code = 1005) 90.1 fL MCH (test code = 1006) 31.1 PG MCHC (test code = 1007) 34.5 G/DL RDW (test code = 1038) 13.4 % NEUTROPHILS (test code = 1008) 46.2 % LYMPHOCYTES (test code = 1010) 41.5 % MONOCYTES (test code = 1011) 8.8 % EOSINOPHILS (test code = 1012) 2.5 % BASOPHILS (test code = 1013) 0.6 % IMMATURE GRANULOCYTES (test 0.4 % code = 1036) NUCLEATED RBCS (test code = 0.0 /100WBC'S 1065) PLATELET COUNT (test code = 214 K/UL 1015) ABSOLUTE NEUTROPHILS (test code 3.13 K/UL = 1066) ABSOLUTE LYMPHOCYTES (test code 2.82 K/UL = 1067) ABSOLUTE MONOCYTES (test code = 0.60 K/UL 1068) ABSOLUTE EOSINOPHILS (test code 0.17 K/UL = 1040) ABSOLUTE BASOPHILS (test code = 0.04 K/UL 1069) ABS IMMATURE GRANULOCYTES (test 0.03 K/UL code = 1020) ABS NUCLEATED RBCS (test code = 0.00 K/UL 64911) CBC W/AUTO [id number] 00:00:00 Test Item Value Reference Range Interpretation Comments WBC (test code = 1001) 6.8 K/UL RBC (test code = 1002) 4.05 M/UL HEMOGLOBIN (test code = 1003) 12.6 G/DL HEMATOCRIT (test code = 1004) 36.5 % MCV (test code = 1005) 90.1 fL MCH (test code = 1006) 31.1 PG MCHC (test code = 1007) 34.5 G/DL RDW (test code = 1038) 13.4 % NEUTROPHILS (test code = 1008) 46.2 % LYMPHOCYTES (test code = 1010) 41.5 % MONOCYTES (test code = 1011) 8.8 % EOSINOPHILS (test code = 1012) 2.5 % BASOPHILS (test code = 1013) 0.6 % IMMATURE GRANULOCYTES (test 0.4 % code = 1036) NUCLEATED RBCS (test code = 0.0 /100WBC'S 1065) PLATELET COUNT (test code = 214 K/UL 1015) ABSOLUTE NEUTROPHILS (test code 3.13 K/UL = 1066) ABSOLUTE LYMPHOCYTES (test code 2.82 K/UL = 1067) ABSOLUTE MONOCYTES (test code = 0.60 K/UL 1068) ABSOLUTE EOSINOPHILS (test code 0.17 K/UL = 1040) ABSOLUTE BASOPHILS (test code = 0.04 K/UL 1069) ABS IMMATURE GRANULOCYTES (test 0.03 K/UL code = 1020) ABS NUCLEATED RBCS (test code = 0.00 K/UL 78230) COMPREHENSIVE METABOLIC [id number] 00:00:00 Test Item Value Reference Range Interpretation Comments GLUCOSE (test code = 2217) 188 MG/DL BUN (test code = 2208) 40 MG/DL CREATININE (test code = 2214) 1.36 MG/DL eGFR (2020 CKD-EPI) (test code 41 ML/MIN/1.73 = 60411) CALC BUN/CREAT (test code = 29 RATIO 2235) SODIUM (test code = 2231) 145 MEQ/L POTASSIUM (test code = 2228) 5.2 MEQ/L CHLORIDE (test code = 2215) 109 MEQ/L CARBON DIOXIDE (test code = 21 MEQ/L 220) CALCIUM (test code = 2209) 9.7 MG/DL PROTEIN, TOTAL (test code = 7.6 G/DL 2229) ALBUMIN (test code = 2201) 4.4 G/DL CALC GLOBULIN (test code = 3.2 G/DL 2240) CALC A/G RATIO (test code = 1.4 RATIO 2234) BILIRUBIN, TOTAL (test code = 0.3 MG/DL 2207) ALKALINE PHOSPHATASE (test 84 U/L code = 2204) AST (test code = 2218) 15 U/L ALT (test code = 2219) 14 U/L [id number] 00:00:00 Test Item Value Reference Range Interpretation Comments TSH, THIRD GENERATION (test code 2.470 UIU/ML = 2821) [id number] 00:00:00 Test Item Value Reference Range Interpretation Comments TSH, THIRD GENERATION (test code 2.470 UIU/ML = 2821) CBC W/AUTO DIFF WITH [id number] 04:35:16 Test Item Value Reference Range Interpretation Comments WBC (test code = 7.3 K/UL 3.5-11.0 1001) RBC (test code = 4.41 M/UL 3.80-5.40 1002) HEMOGLOBIN (test code 13.4 G/DL 11.5-15.5 = 1003) HEMATOCRIT (test code 38.6 % 34.0-45.0 = 1004) MCV (test code = 87.5 fL 80.0-99.0 1005) MCH (test code = 30.4 PG 25.0-33.0 1006) MCHC (test code = 34.7 G/DL 31.0-36.0 1007) RDW (test code = 13.2 % 11.5-15.0 1038) NEUTROPHILS (test 54.6 % code = 1008) LYMPHOCYTES (test 36.0 % code = 1010) MONOCYTES (test code 7.0 % = 1011) EOSINOPHILS (test 1.6 % code = 1012) BASOPHILS (test code 0.5 % = 1013) IMMATURE GRANULOCYTES 0.3 % (test code = 1036) NUCLEATED RBCS (test 0.0 /100 WBC'S See_Comment [Aut omated code = 1065) message] The sy stem which generated this result transmitted reference range : 0.0. The refere nce range was not u sed to interpret th is result as normal/abnormal . PLATELET COUNT (test 272 K/UL 130-400 code = 1015) ABSOLUTE NEUTROPHILS 3.97 K/UL 1.50-7.50 (test code = 1066) ABSOLUTE LYMPHOCYTES 2.62 K/UL 1.00-4.00 (test code = 1067) ABSOLUTE MONOCYTES 0.51 K/UL 0.20-1.00 (test code = 1068) ABSOLUTE EOSINOPHILS 0.12 K/UL 0.00-0.50 (test code = 1040) ABSOLUTE BASOPHILS 0.04 K/UL 0.00-0.20 (test code = 1069) ABS IMMATURE 0.02 K/UL 0.00-0.10 GRANULOCYTES (test code = 1020) ABS NUCLEATED RBCS 0.00 K/UL 0.00-0.11 (test code = 76489) HEMOGLOBIN [id number] 04:23:29 Test Item Value Reference Range Interpretation Comments HEMOGLOBIN A1c (test 8.8 % 4.2-5.6 H AMERIC AN DIABETES code = 54146) ASSOCIATION IDELINES FOR HGB A1C: PREDIABETES/INC REASED RISK . . . . . . . 5.7 -6.4% DIAGNOSIS OF DI ABETES . . . . . . . . . >=6 .5% WITH CONFIRMATION OR APPROPRIATE SYMPTOMS NOTE: ASSAY MAY BE AFFECTED BY HEMOGLOBINOPATH IES (SICKLE CELL ANEMIA, S- C DISEASE, OTHERS) OR KATYA FICIALLY LOWERED BY DECR EASED RED CELL SURVIVAL ( HEMOLYTIC ANEMIAS, BLOOD LOSS, ETC.). CONSIDER ALTERN ATE TESTING OR LABORATORY C ONSULTATION. COMPREHENSIVE METABOLIC [id number] 03:52:38 Test Item Value Reference Range Interpretation Comments GLUCOSE (test code = 166 MG/DL 70-99 H 2216) BUN (test code = 30 MG/DL 8-23 H 2207) CREATININE (test 1.31 MG/DL 0.60-1.30 H code = 2214) eGFR (2020 CKD-EPI) 43 >60 L (test code = 04243) ML/MIN/1.73 CALC BUN/CREAT (test 23 RATIO 6-28 code = 2235) SODIUM (test code = 140 MEQ/L 992-639 1703) POTASSIUM (test code 5.5 MEQ/L 3.5-5.4 H = 2227) CHLORIDE (test code 104 MEQ/L 95-107 = 2215) CARBON DIOXIDE (test 22 MEQ/L 19-31 code = 2206) CALCIUM (test code = 10.0 MG/DL 8.5-10.5 2208) PROTEIN, TOTAL (test 7.8 G/DL 6.1-8.3 code = 2229) ALBUMIN (test code = 4.5 G/DL 3.5-5.2 2200) CALC GLOBULIN (test 3.3 G/DL 1.9-3.7 code = 2240) CALC A/G RATIO (test 1.4 RATIO 1.0-2.6 code = 2234) BILIRUBIN, TOTAL 0.4 MG/DL See_Comment [Automated message] (test code = 220) The syste m which generated this result transmitted ref erence range: <=1.2. T he reference range was not used to int erpret this result as normal/abnormal . ALKALINE PHOSPHATASE 86 U/L 40-142 (test code = 2203) AST (test code = 21 U/L 9-40 2217) ALT (test code = 13 U/L 5-40 UNLESS OTH ERWISE 2218) INDICATED, ALL TESTING PERFORM [facility], [facility]. [address] [place] [id number] [place] [address] DIRECTOR: KEN NEWMAN M.D. CLIA NUMBER [id number] CAP ACCREDITATION N O. [id number] HEMOGLOBIN [id number] 00:00:00 Test Item Value Reference Range Interpretation Comments HEMOGLOBIN A1c (test code = 70231) 8.8 % HEMOGLOBIN [id number] 00:00:00 Test Item Value Reference Range Interpretation Comments HEMOGLOBIN A1c (test code = 23835) 8.8 % CBC W/AUTO [id number] 00:00:00 Test Item Value Reference Range Interpretation Comments WBC (test code = 1001) 7.3 K/UL RBC (test code = 1002) 4.41 M/UL HEMOGLOBIN (test code = 1003) 13.4 G/DL HEMATOCRIT (test code = 1004) 38.6 % MCV (test code = 1005) 87.5 fL MCH (test code = 1006) 30.4 PG MCHC (test code = 1007) 34.7 G/DL RDW (test code = 1038) 13.2 % NEUTROPHILS (test code = 1008) 54.6 % LYMPHOCYTES (test code = 1010) 36.0 % MONOCYTES (test code = 1011) 7.0 % EOSINOPHILS (test code = 1012) 1.6 % BASOPHILS (test code = 1013) 0.5 % IMMATURE GRANULOCYTES (test 0.3 % code = 1036) NUCLEATED RBCS (test code = 0.0 /100WBC'S 1065) PLATELET COUNT (test code = 272 K/UL 1015) ABSOLUTE NEUTROPHILS (test code 3.97 K/UL = 1066) ABSOLUTE LYMPHOCYTES (test code 2.62 K/UL = 1067) ABSOLUTE MONOCYTES (test code = 0.51 K/UL 1068) ABSOLUTE EOSINOPHILS (test code 0.12 K/UL = 1040) ABSOLUTE BASOPHILS (test code = 0.04 K/UL 1069) ABS IMMATURE GRANULOCYTES (test 0.02 K/UL code = 1020) ABS NUCLEATED RBCS (test code = 0.00 K/UL 26434) CBC W/AUTO [id number] 00:00:00 Test Item Value Reference Range Interpretation Comments WBC (test code = 1001) 7.3 K/UL RBC (test code = 1002) 4.41 M/UL HEMOGLOBIN (test code = 1003) 13.4 G/DL HEMATOCRIT (test code = 1004) 38.6 % MCV (test code = 1005) 87.5 fL MCH (test code = 1006) 30.4 PG MCHC (test code = 1007) 34.7 G/DL RDW (test code = 1038) 13.2 % NEUTROPHILS (test code = 1008) 54.6 % LYMPHOCYTES (test code = 1010) 36.0 % MONOCYTES (test code = 1011) 7.0 % EOSINOPHILS (test code = 1012) 1.6 % BASOPHILS (test code = 1013) 0.5 % IMMATURE GRANULOCYTES (test 0.3 % code = 1036) NUCLEATED RBCS (test code = 0.0 /100WBC'S 1065) PLATELET COUNT (test code = 272 K/UL 1015) ABSOLUTE NEUTROPHILS (test code 3.97 K/UL = 1066) ABSOLUTE LYMPHOCYTES (test code 2.62 K/UL = 1067) ABSOLUTE MONOCYTES (test code = 0.51 K/UL 1068) ABSOLUTE EOSINOPHILS (test code 0.12 K/UL = 1040) ABSOLUTE BASOPHILS (test code = 0.04 K/UL 1069) ABS IMMATURE GRANULOCYTES (test 0.02 K/UL code = 1020) ABS NUCLEATED RBCS (test code = 0.00 K/UL 44535) COMPREHENSIVE METABOLIC [id number] 00:00:00 Test Item Value Reference Range Interpretation Comments GLUCOSE (test code = 2217) 166 MG/DL BUN (test code = 2208) 30 MG/DL CREATININE (test code = 2214) 1.31 MG/DL eGFR (2020 CKD-EPI) (test code 43 ML/MIN/1.73 = 89265) CALC BUN/CREAT (test code = 23 RATIO 2235) SODIUM (test code = 2231) 140 MEQ/L POTASSIUM (test code = 2228) 5.5 MEQ/L CHLORIDE (test code = 2215) 104 MEQ/L CARBON DIOXIDE (test code = 22 MEQ/L 2205) CALCIUM (test code = 2209) 10.0 MG/DL PROTEIN, TOTAL (test code = 7.8 G/DL 2228) ALBUMIN (test code = 2201) 4.5 G/DL CALC GLOBULIN (test code = 3.3 G/DL 2239) CALC A/G RATIO (test code = 1.4 RATIO 2233) BILIRUBIN, TOTAL (test code = 0.4 MG/DL 2206) ALKALINE PHOSPHATASE (test 86 U/L code = 2204) AST (test code = 2218) 21 U/L ALT (test code = 2219) 13 U/L HEMOGLOBIN [id number] 00:00:00 Test Item Value Reference Range Interpretation Comments HEMOGLOBIN A1c (test code = 94569) 8.8 % HEMOGLOBIN [id number] 00:00:00 Test Item Value Reference Range Interpretation Comments HEMOGLOBIN A1c (test code = 82433) 8.8 % CBC W/AUTO [id number] 00:00:00 Test Item Value Reference Range Interpretation Comments WBC (test code = 1001) 7.3 K/UL RBC (test code = 1002) 4.41 M/UL HEMOGLOBIN (test code = 1003) 13.4 G/DL HEMATOCRIT (test code = 1004) 38.6 % MCV (test code = 1005) 87.5 fL MCH (test code = 1006) 30.4 PG MCHC (test code = 1007) 34.7 G/DL RDW (test code = 1038) 13.2 % NEUTROPHILS (test code = 1008) 54.6 % LYMPHOCYTES (test code = 1010) 36.0 % MONOCYTES (test code = 1011) 7.0 % EOSINOPHILS (test code = 1012) 1.6 % BASOPHILS (test code = 1013) 0.5 % IMMATURE GRANULOCYTES (test 0.3 % code = 1036) NUCLEATED RBCS (test code = 0.0 /100WBC'S 1065) PLATELET COUNT (test code = 272 K/UL 1015) ABSOLUTE NEUTROPHILS (test code 3.97 K/UL = 1066) ABSOLUTE LYMPHOCYTES (test code 2.62 K/UL = 1067) ABSOLUTE MONOCYTES (test code = 0.51 K/UL 1068) ABSOLUTE EOSINOPHILS (test code 0.12 K/UL = 1040) ABSOLUTE BASOPHILS (test code = 0.04 K/UL 1069) ABS IMMATURE GRANULOCYTES (test 0.02 K/UL code = 1020) ABS NUCLEATED RBCS (test code = 0.00 K/UL 75461) CBC W/AUTO [id number] 00:00:00 Test Item Value Reference Range Interpretation Comments WBC (test code = 1001) 7.3 K/UL RBC (test code = 1002) 4.41 M/UL HEMOGLOBIN (test code = 1003) 13.4 G/DL HEMATOCRIT (test code = 1004) 38.6 % MCV (test code = 1005) 87.5 fL MCH (test code = 1006) 30.4 PG MCHC (test code = 1007) 34.7 G/DL RDW (test code = 1038) 13.2 % NEUTROPHILS (test code = 1008) 54.6 % LYMPHOCYTES (test code = 1010) 36.0 % MONOCYTES (test code = 1011) 7.0 % EOSINOPHILS (test code = 1012) 1.6 % BASOPHILS (test code = 1013) 0.5 % IMMATURE GRANULOCYTES (test 0.3 % code = 1036) NUCLEATED RBCS (test code = 0.0 /100WBC'S 1065) PLATELET COUNT (test code = 272 K/UL 1015) ABSOLUTE NEUTROPHILS (test code 3.97 K/UL = 1066) ABSOLUTE LYMPHOCYTES (test code 2.62 K/UL = 1067) ABSOLUTE MONOCYTES (test code = 0.51 K/UL 1068) ABSOLUTE EOSINOPHILS (test code 0.12 K/UL = 1040) ABSOLUTE BASOPHILS (test code = 0.04 K/UL 1069) ABS IMMATURE GRANULOCYTES (test 0.02 K/UL code = 1020) ABS NUCLEATED RBCS (test code = 0.00 K/UL 42184) COMPREHENSIVE METABOLIC [id number] 00:00:00 Test Item Value Reference Range Interpretation Comments GLUCOSE (test code = 2217) 166 MG/DL BUN (test code = 2208) 30 MG/DL CREATININE (test code = 2214) 1.31 MG/DL eGFR (2020 CKD-EPI) (test code 43 ML/MIN/1.73 = 86889) CALC BUN/CREAT (test code = 23 RATIO 2235) SODIUM (test code = 2231) 140 MEQ/L POTASSIUM (test code = 2228) 5.5 MEQ/L CHLORIDE (test code = 2215) 104 MEQ/L CARBON DIOXIDE (test code = 22 MEQ/L 2205) CALCIUM (test code = 2209) 10.0 MG/DL PROTEIN, TOTAL (test code = 7.8 G/DL 2228) ALBUMIN (test code = 2201) 4.5 G/DL CALC GLOBULIN (test code = 3.3 G/DL 0) CALC A/G RATIO (test code = 1.4 RATIO 4) BILIRUBIN, TOTAL (test code = 0.4 MG/DL 2206) ALKALINE PHOSPHATASE (test 86 U/L code = 2204) AST (test code = 2218) 21 U/L ALT (test code = 2219) 13 U/L LIPID [id number] 00:00:00 Test Item Value Reference Range Interpretation Comments CHOLESTEROL (test code = 2210) 229 MG/DL TRIGLYCERIDES (test code = 2232) 246 MG/DL HDL CHOLESTEROL (test code = 2220) 48 MG/DL CALC LDL CHOL (test code = 2237) 141 MG/DL RISK RATIO LDL/HDL (test code = 2.94 RATIO 2238) CBC W/AUTO [id number] 00:00:00 Test Item Value Reference Range Interpretation Comments WBC (test code = 1001) 6.8 K/UL RBC (test code = 1002) 4.05 M/UL HEMOGLOBIN (test code = 1003) 12.3 G/DL HEMATOCRIT (test code = 1004) 35.8 % MCV (test code = 1005) 88.4 fL MCH (test code = 1006) 30.4 PG MCHC (test code = 1007) 34.4 G/DL RDW (test code = 1038) 12.8 % NEUTROPHILS (test code = 1008) 51.1 % LYMPHOCYTES (test code = 1010) 38.6 % MONOCYTES (test code = 1011) 7.1 % EOSINOPHILS (test code = 1012) 2.2 % BASOPHILS (test code = 1013) 0.6 % IMMATURE GRANYLOCYTES (test 0.4 % code = 1036) NUCLEATED RBCS (test code = 0.0 /100WBC'S 1065) PLATELET COUNT (test code = 246 K/UL 1015) ABSOLUTE NEUTROPHILS (test code 3.45 K/UL = 1066) ABSOLUTE LYMPHOCYTES (test code 2.61 K/UL = 1067) ABSOLUTE MONOCYTES (test code = 0.48 K/UL 1068) ABSOLUTE EOSINOPHILS (test code 0.15 K/UL = 1040) ABSOLUTE BASOPHILS (test code = 0.04 K/UL 1069) ABS IMMATURE GRANULOCYTES (test 0.03 K/UL code = 1020) ABS NUCLEATED RBCS (test code = 0.00 K/UL 50490) CBC W/AUTO [id number] 00:00:00 Test Item Value Reference Range Interpretation Comments WBC (test code = 1001) 6.8 K/UL RBC (test code = 1002) 4.05 M/UL HEMOGLOBIN (test code = 1003) 12.3 G/DL HEMATOCRIT (test code = 1004) 35.8 % MCV (test code = 1005) 88.4 fL MCH (test code = 1006) 30.4 PG MCHC (test code = 1007) 34.4 G/DL RDW (test code = 1038) 12.8 % NEUTROPHILS (test code = 1008) 51.1 % LYMPHOCYTES (test code = 1010) 38.6 % MONOCYTES (test code = 1011) 7.1 % EOSINOPHILS (test code = 1012) 2.2 % BASOPHILS (test code = 1013) 0.6 % IMMATURE GRANYLOCYTES (test 0.4 % code = 1036) NUCLEATED RBCS (test code = 0.0 /100WBC'S 1065) PLATELET COUNT (test code = 246 K/UL 1015) ABSOLUTE NEUTROPHILS (test code 3.45 K/UL = 1066) ABSOLUTE LYMPHOCYTES (test code 2.61 K/UL = 1067) ABSOLUTE MONOCYTES (test code = 0.48 K/UL 1068) ABSOLUTE EOSINOPHILS (test code 0.15 K/UL = 1040) ABSOLUTE BASOPHILS (test code = 0.04 K/UL 1069) ABS IMMATURE GRANULOCYTES (test 0.03 K/UL code = 1020) ABS NUCLEATED RBCS (test code = 0.00 K/UL 48219) HEMOGLOBIN [id number] 00:00:00 Test Item Value Reference Range Interpretation Comments HEMOGLOBIN A1c (test code = 36979) 9.1 % HEMOGLOBIN [id number] 00:00:00 Test Item Value Reference Range Interpretation Comments HEMOGLOBIN A1c (test code = 63660) 9.1 % MICROALBUMIN/CREATININE, RANDOM AND [id number] 00:00:00 Test Item Value Reference Range Interpretation Comments CREATININE, URINE, CONC. (test 108.6 MG/DL code = 2072) ALBUMIN, URINE, RANDOM (test code 29.0 MG/DL = 31928) CALC ALBUMIN/CREAT, RND (test 267 MG/G code = 32146) INTACT [id number] 00:00:00 Test Item Value Reference Range Interpretation Comments INTACT PTH (test code = 5005) 85 PG/ML INTACT [id number] 00:00:00 Test Item Value Reference Range Interpretation Comments INTACT PTH (test code = 5005) 85 PG/ML LIPID [id number] 00:00:00 Test Item Value Reference Range Interpretation Comments CHOLESTEROL (test code = 2210) 229 MG/DL TRIGLYCERIDES (test code = 2232) 246 MG/DL HDL CHOLESTEROL (test code = 2220) 48 MG/DL CALC LDL CHOL (test code = 2237) 141 MG/DL RISK RATIO LDL/HDL (test code = 2.94 RATIO 2238) CBC W/AUTO [id number] 00:00:00 Test Item Value Reference Range Interpretation Comments WBC (test code = 1001) 6.8 K/UL RBC (test code = 1002) 4.05 M/UL HEMOGLOBIN (test code = 1003) 12.3 G/DL HEMATOCRIT (test code = 1004) 35.8 % MCV (test code = 1005) 88.4 fL MCH (test code = 1006) 30.4 PG MCHC (test code = 1007) 34.4 G/DL RDW (test code = 1038) 12.8 % NEUTROPHILS (test code = 1008) 51.1 % LYMPHOCYTES (test code = 1010) 38.6 % MONOCYTES (test code = 1011) 7.1 % EOSINOPHILS (test code = 1012) 2.2 % BASOPHILS (test code = 1013) 0.6 % IMMATURE GRANYLOCYTES (test 0.4 % code = 1036) NUCLEATED RBCS (test code = 0.0 /100WBC'S 1065) PLATELET COUNT (test code = 246 K/UL 1015) ABSOLUTE NEUTROPHILS (test code 3.45 K/UL = 1066) ABSOLUTE LYMPHOCYTES (test code 2.61 K/UL = 1067) ABSOLUTE MONOCYTES (test code = 0.48 K/UL 1068) ABSOLUTE EOSINOPHILS (test code 0.15 K/UL = 1040) ABSOLUTE BASOPHILS (test code = 0.04 K/UL 1069) ABS IMMATURE GRANULOCYTES (test 0.03 K/UL code = 1020) ABS NUCLEATED RBCS (test code = 0.00 K/UL 45701) CBC W/AUTO [id number] 00:00:00 Test Item Value Reference Range Interpretation Comments WBC (test code = 1001) 6.8 K/UL RBC (test code = 1002) 4.05 M/UL HEMOGLOBIN (test code = 1003) 12.3 G/DL HEMATOCRIT (test code = 1004) 35.8 % MCV (test code = 1005) 88.4 fL MCH (test code = 1006) 30.4 PG MCHC (test code = 1007) 34.4 G/DL RDW (test code = 1038) 12.8 % NEUTROPHILS (test code = 1008) 51.1 % LYMPHOCYTES (test code = 1010) 38.6 % MONOCYTES (test code = 1011) 7.1 % EOSINOPHILS (test code = 1012) 2.2 % BASOPHILS (test code = 1013) 0.6 % IMMATURE GRANYLOCYTES (test 0.4 % code = 1036) NUCLEATED RBCS (test code = 0.0 /100WBC'S 1065) PLATELET COUNT (test code = 246 K/UL 1015) ABSOLUTE NEUTROPHILS (test code 3.45 K/UL = 1066) ABSOLUTE LYMPHOCYTES (test code 2.61 K/UL = 1067) ABSOLUTE MONOCYTES (test code = 0.48 K/UL 1068) ABSOLUTE EOSINOPHILS (test code 0.15 K/UL = 1040) ABSOLUTE BASOPHILS (test code = 0.04 K/UL 1069) ABS IMMATURE GRANULOCYTES (test 0.03 K/UL code = 1020) ABS NUCLEATED RBCS (test code = 0.00 K/UL 27441) HEMOGLOBIN [id number] 00:00:00 Test Item Value Reference Range Interpretation Comments HEMOGLOBIN A1c (test code = 24044) 9.1 % HEMOGLOBIN [id number] 00:00:00 Test Item Value Reference Range Interpretation Comments HEMOGLOBIN A1c (test code = 07466) 9.1 % MICROALBUMIN/CREATININE, RANDOM AND [id number] 00:00:00 Test Item Value Reference Range Interpretation Comments CREATININE, URINE, CONC. (test 108.6 MG/DL code = 2072) ALBUMIN, URINE, RANDOM (test code 29.0 MG/DL = 76034) CALC ALBUMIN/CREAT, RND (test 267 MG/G code = 81581) INTACT [id number] 00:00:00 Test Item Value Reference Range Interpretation Comments INTACT PTH (test code = 5005) 85 PG/ML INTACT [id number] 00:00:00 Test Item Value Reference Range Interpretation Comments INTACT PTH (test code = 5005) 85 PG/ML CULTURE, [id number] 00:00:00 Test Item Value Reference Range Interpretation Comments CULTURE, ROUTINE (test SPECIMEN NUMBER: code = 05013) [id number] CULTURE, [id number] 00:00:00 Test Item Value Reference Range Interpretation Comments CULTURE, ROUTINE (test SPECIMEN NUMBER: code = 62154) [id number] CULTURE, [id number] 00:00:00 Test Item Value Reference Range Interpretation Comments CULTURE, ROUTINE (test SPECIMEN NUMBER: code = 66631) [id number] CULTURE, [id number] 00:00:00 Test Item Value Reference Range Interpretation Comments CULTURE, ROUTINE (test SPECIMEN NUMBER: code = 98452) [id number] COMPREHENSIVE METABOLIC [id number] 00:00:00 Test Item Value Reference Range Interpretation Comments GLUCOSE (test code = 2217) 222 MG/DL BUN (test code = 2208) 27 MG/DL CREATININE (test code = 2214) 1.05 MG/DL eGFR AMER. (test code 61 ML/MIN/1.73 = 10421) eGFR NON- AMER. (test 53 ML/MIN/1.73 code = 07171) CALC BUN/CREAT (test code = 26 RATIO 2235) SODIUM (test code = 2231) 140 MEQ/L POTASSIUM (test code = 2228) 5.2 MEQ/L CHLORIDE (test code = 2215) 106 MEQ/L CARBON DIOXIDE (test code = 20 MEQ/L 2205) CALCIUM (test code = 2209) 9.4 MG/DL PROTEIN, TOTAL (test code = 7.3 G/DL 2228) ALBUMIN (test code = 2201) 4.3 G/DL CALC GLOBULIN (test code = 3.0 G/DL 224) CALC A/G RATIO (test code = 1.4 RATIO 2234) BILIRUBIN, TOTAL (test code = <0.2 MG/DL 2206) ALKALINE PHOSPHATASE (test 80 U/L code = 2204) AST (test code = 2218) 14 U/L ALT (test code = 2219) 11 U/L LIPID [id number] 00:00:00 Test Item Value Reference Range Interpretation Comments CHOLESTEROL (test code = 2210) 230 MG/DL TRIGLYCERIDES (test code = 2232) 414 MG/DL HDL CHOLESTEROL (test code = 51 MG/DL 2219) CALC LDL CHOL (test code = 2237) (NOTE) MG/DL RISK RATIO LDL/HDL (test code = (NOTE) RATIO 2238) HEMOGLOBIN [id number] 00:00:00 Test Item Value Reference Range Interpretation Comments HEMOGLOBIN A1c (test code = 67455) 8.7 % HEMOGLOBIN [id number] 00:00:00 Test Item Value Reference Range Interpretation Comments HEMOGLOBIN A1c (test code = 82728) 8.7 % COMPREHENSIVE METABOLIC [id number] 00:00:00 Test Item Value Reference Range Interpretation Comments GLUCOSE (test code = 2217) 222 MG/DL BUN (test code = 2208) 27 MG/DL CREATININE (test code = 2214) 1.05 MG/DL eGFR AMER. (test code 61 ML/MIN/1.73 = 57253) eGFR NON- AMER. (test 53 ML/MIN/1.73 code = 42180) CALC BUN/CREAT (test code = 26 RATIO 2235) SODIUM (test code = 2231) 140 MEQ/L POTASSIUM (test code = 2228) 5.2 MEQ/L CHLORIDE (test code = 2215) 106 MEQ/L CARBON DIOXIDE (test code = 20 MEQ/L 220) CALCIUM (test code = 2209) 9.4 MG/DL PROTEIN, TOTAL (test code = 7.3 G/DL 2228) ALBUMIN (test code = 2201) 4.3 G/DL CALC GLOBULIN (test code = 3.0 G/DL 2240) CALC A/G RATIO (test code = 1.4 RATIO 2234) BILIRUBIN, TOTAL (test code = <0.2 MG/DL 2206) ALKALINE PHOSPHATASE (test 80 U/L code = 2204) AST (test code = 2218) 14 U/L ALT (test code = 2219) 11 U/L LIPID [id number] 00:00:00 Test Item Value Reference Range Interpretation Comments CHOLESTEROL (test code = 2210) 230 MG/DL TRIGLYCERIDES (test code = 2232) 414 MG/DL HDL CHOLESTEROL (test code = 51 MG/DL 2219) CALC LDL CHOL (test code = 2237) (NOTE) MG/DL RISK RATIO LDL/HDL (test code = (NOTE) RATIO 2238) HEMOGLOBIN [id number] 00:00:00 Test Item Value Reference Range Interpretation Comments HEMOGLOBIN A1c (test code = 97225) 8.7 % HEMOGLOBIN [id number] 00:00:00 Test Item Value Reference Range Interpretation Comments HEMOGLOBIN A1c (test code = 33028) 8.7 % XR KNEE 3 VW [id number] 19:05:24HISTORY: ?Pain. FINDINGS: AP, lateral, oblique views [...] arthritis of left knee with minimal jointeffusion. [facility], [facility] In[facility] - 10/14/2020 2:06 PM CDTHISTORY: Pain.FINDINGS: AP, lateral, oblique views of left knee showed no acute fractureor dislocation. Mild changes of arthritis noted inthe formal slightlynarrowed medial knee joint space, minimal subchondral sclerosis and smallosteophytes along the articular edges of medial femoral/tibial condyles.Small osteophytes also seen along theupper and lower articular edges ofthe patella with minimal knee joint effusion.No aggressive bone lesions seen. No calcification in the cartilage liningor in the meniscal fibrocartilage.CONCLUSIONS: Mild degenerative arthritis of left knee with minimal [facility]teffusion[facility] 2020-10-14 19:04:18HISTORY: ?Pain. [...] No acutefracture or dislocation in left ankle. [facility], [facility] In[facility] User - 10/14/2020 2:05 PM CDTHISTORY: Pain.FINDINGS: AP, lateral, oblique views of left ankle showed no acute fractureor dislocation. 5mm heel spur, retrocalcaneal exostosis within lower tendoAchilles noted. Mild soft tissue swelling along the lateral aspect of theankle and mild degenerative changes in the medial tibiotalar joint noted.Mild degenerative arthritis are also seen in the talonavicular joint.CONCLUSIONS: No acute fractureor dislocation in left ankle[facility]W LEFT 2020-10-14 19:03:08HISTORY: ?Pain. FINDINGS: AP view of the pelvis, AP and lateral views centered over theleft hip joint showed no acute fracture or dislocation. No sign of AVN inthe femoral heads. Mild degenerative arthritis is noted in the left hipjoint. Sacroiliac joints appear normal. CONCLUSIONS: No acute fracture or dislocation in pelvis or left hip. [facility], [facility] Results Inft User - 10/14/2020 2:04 PM CDTHISTORY: Pain.FINDINGS: AP view of the pelvis, AP and lateral views centered over theleft hip joint showed no acute fracture or dislocation. No sign of AVN inthe femoral heads. Mild degenerative arthritis is noted in the left hipjoint. Sacroiliac joints appear normal.CONCLUSIONS: No acute fracture or dislocation in pelvis or left hip.[facility], 25 [id number] 00:00:00 Test Item Value Reference Range Interpretation Comments VITAMIN D, 25 OH (test code = 4958) 18 NG/ML CULTURE, [id number] 00:00:00 Test Item Value Reference Range Interpretation Comments CULTURE, URINE (test SPECIMEN NUMBER: code = 71399) [id number] VITAMIN D, 25 [id number] 00:00:00 Test Item Value Reference Range Interpretation Comments VITAMIN D, 25 OH (test code = 4958) 18 NG/ML CULTURE, [id number] 00:00:00 Test Item Value Reference Range Interpretation Comments CULTURE, URINE (test SPECIMEN NUMBER: code = 96586) [id number] 00:00:00 Test Item Value Reference Range Interpretation Comments TSH, THIRD GENERATION (test code 2.450 UIU/ML = 2821) [id number] 00:00:00 Test Item Value Reference Range Interpretation Comments TSH, THIRD GENERATION (test code 2.450 UIU/ML = 2821) [id number] 00:00:00 Test Item Value Reference Range Interpretation Comments TSH, THIRD GENERATION (test code 2.450 UIU/ML = 2821) [id number] 00:00:00 Test Item Value Reference Range Interpretation Comments TSH, THIRD GENERATION (test code 2.450 UIU/ML = 2821) HEMOGLOBIN [id number] 00:00:00 Test Item Value Reference Range Interpretation Comments HEMOGLOBIN A1c (test code = 60426) 7.4 % HEMOGLOBIN [id number] 00:00:00 Test Item Value Reference Range Interpretation Comments HEMOGLOBIN A1c (test code = 56206) 7.4 % HEMOGLOBIN [id number] 00:00:00 Test Item Value Reference Range Interpretation Comments HEMOGLOBIN A1c (test code = 16419) 7.4 % HEMOGLOBIN [id number] 00:00:00 Test Item Value Reference Range Interpretation Comments HEMOGLOBIN A1c (test code = 48548) 7.4 % CBC W/AUTO [id number] 00:00:00 Test Item Value Reference Range Interpretation Comments WBC (test code = 1001) 7.4 K/UL RBC (test code = 1002) 3.96 M/UL HEMOGLOBIN (test code = 1003) 12.0 G/DL HEMATOCRIT (test code = 1004) 35.3 % MCV (test code = 1005) 89.1 fL MCH (test code = 1006) 30.3 PG MCHC (test code = 1007) 34.0 G/DL RDW (test code = 1038) 13.2 % NEUTROPHILS (test code = 1008) 54.2 % LYMPHOCYTES (test code = 1010) 36.2 % MONOCYTES (test code = 1011) 7.0 % EOSINOPHILS (test code = 1012) 2.2 % BASOPHILS (test code = 1013) 0.4 % PLATELET COUNT (test code = 1015) 230 K/UL CBC W/AUTO [id number] 00:00:00 Test Item Value Reference Range Interpretation Comments WBC (test code = 1001) 7.4 K/UL RBC (test code = 1002) 3.96 M/UL HEMOGLOBIN (test code = 1003) 12.0 G/DL HEMATOCRIT (test code = 1004) 35.3 % MCV (test code = 1005) 89.1 fL MCH (test code = 1006) 30.3 PG MCHC (test code = 1007) 34.0 G/DL RDW (test code = 1038) 13.2 % NEUTROPHILS (test code = 1008) 54.2 % LYMPHOCYTES (test code = 1010) 36.2 % MONOCYTES (test code = 1011) 7.0 % EOSINOPHILS (test code = 1012) 2.2 % BASOPHILS (test code = 1013) 0.4 % PLATELET COUNT (test code = 1015) 230 K/UL CBC W/AUTO [id number] 00:00:00 Test Item Value Reference Range Interpretation Comments WBC (test code = 1001) 7.4 K/UL RBC (test code = 1002) 3.96 M/UL HEMOGLOBIN (test code = 1003) 12.0 G/DL HEMATOCRIT (test code = 1004) 35.3 % MCV (test code = 1005) 89.1 fL MCH (test code = 1006) 30.3 PG MCHC (test code = 1007) 34.0 G/DL RDW (test code = 1038) 13.2 % NEUTROPHILS (test code = 1008) 54.2 % LYMPHOCYTES (test code = 1010) 36.2 % MONOCYTES (test code = 1011) 7.0 % EOSINOPHILS (test code = 1012) 2.2 % BASOPHILS (test code = 1013) 0.4 % PLATELET COUNT (test code = 1015) 230 K/UL CBC W/AUTO [id number] 00:00:00 Test Item Value Reference Range Interpretation Comments WBC (test code = 1001) 7.4 K/UL RBC (test code = 1002) 3.96 M/UL HEMOGLOBIN (test code = 1003) 12.0 G/DL HEMATOCRIT (test code = 1004) 35.3 % MCV (test code = 1005) 89.1 fL MCH (test code = 1006) 30.3 PG MCHC (test code = 1007) 34.0 G/DL RDW (test code = 1038) 13.2 % NEUTROPHILS (test code = 1008) 54.2 % LYMPHOCYTES (test code = 1010) 36.2 % MONOCYTES (test code = 1011) 7.0 % EOSINOPHILS (test code = 1012) 2.2 % BASOPHILS (test code = 1013) 0.4 % PLATELET COUNT (test code = 1015) 230 K/UL HEMOGLOBIN [id number] 00:00:00 Test Item Value Reference Range Interpretation Comments HEMOGLOBIN A1c (test code = 31394) 8.4 % HEMOGLOBIN [id number] 00:00:00 Test Item Value Reference Range Interpretation Comments HEMOGLOBIN A1c (test code = 76570) 8.4 % COMPREHENSIVE METABOLIC [id number] 00:00:00 Test Item Value Reference Range Interpretation Comments GLUCOSE (test code = 2217) 204 MG/DL BUN (test code = 2208) 26 MG/DL CREATININE (test code = 2214) 1.21 MG/DL eGFR AMER. (test code 52 ML/MIN/1.73 = 59985) eGFR NON- AMER. (test 45 ML/MIN/1.73 code = 56415) CALC BUN/CREAT (test code = 21 RATIO 2235) SODIUM (test code = 2231) 140 MEQ/L POTASSIUM (test code = 2228) 4.6 MEQ/L CHLORIDE (test code = 2215) 105 MEQ/L CARBON DIOXIDE (test code = 23 MEQ/L 2205) CALCIUM (test code = 2209) 9.2 MG/DL PROTEIN, TOTAL (test code = 7.2 G/DL 2228) ALBUMIN (test code = 2201) 4.1 G/DL CALC GLOBULIN (test code = 3.1 G/DL 2239) CALC A/G RATIO (test code = 1.3 RATIO 223) BILIRUBIN, TOTAL (test code = 0.3 MG/DL 2206) ALKALINE PHOSPHATASE (test 69 U/L code = 2204) AST (test code = 2218) 11 U/L ALT (test code = 2219) 8 U/L LIPID [id number] 00:00:00 Test Item Value Reference Range Interpretation Comments CHOLESTEROL (test code = 2210) 184 MG/DL TRIGLYCERIDES (test code = 2232) 222 MG/DL HDL CHOLESTEROL (test code = 2220) 52 MG/DL CALC LDL CHOL (test code = 2237) 98 MG/DL RISK RATIO LDL/HDL (test code = 1.88 RATIO 2238) HEMOGLOBIN [id number] 00:00:00 Test Item Value Reference Range Interpretation Comments HEMOGLOBIN A1c (test code = 14858) 8.4 % HEMOGLOBIN [id number] 00:00:00 Test Item Value Reference Range Interpretation Comments HEMOGLOBIN A1c (test code = 55697) 8.4 % COMPREHENSIVE METABOLIC [id number] 00:00:00 Test Item Value Reference Range Interpretation Comments GLUCOSE (test code = 2217) 204 MG/DL BUN (test code = 2208) 26 MG/DL CREATININE (test code = 2214) 1.21 MG/DL eGFR AMER. (test code 52 ML/MIN/1.73 = 90223) eGFR NON- AMER. (test 45 ML/MIN/1.73 code = 99518) CALC BUN/CREAT (test code = 21 RATIO 2235) SODIUM (test code = 2231) 140 MEQ/L POTASSIUM (test code = 2228) 4.6 MEQ/L CHLORIDE (test code = 2215) 105 MEQ/L CARBON DIOXIDE (test code = 23 MEQ/L 2205) CALCIUM (test code = 2209) 9.2 MG/DL PROTEIN, TOTAL (test code = 7.2 G/DL 2228) ALBUMIN (test code = 2201) 4.1 G/DL CALC GLOBULIN (test code = 3.1 G/DL 0) CALC A/G RATIO (test code = 1.3 RATIO 2233) BILIRUBIN, TOTAL (test code = 0.3 MG/DL 2206) ALKALINE PHOSPHATASE (test 69 U/L code = 2204) AST (test code = 2218) 11 U/L ALT (test code = 2219) 8 U/L LIPID [id number] 00:00:00 Test Item Value Reference Range Interpretation Comments CHOLESTEROL (test code = 2210) 184 MG/DL TRIGLYCERIDES (test code = 2232) 222 MG/DL HDL CHOLESTEROL (test code = 2220) 52 MG/DL CALC LDL CHOL (test code = 2237) 98 MG/DL RISK RATIO LDL/HDL (test code = 1.88 RATIO 2238) MICROALBUMIN/CREATININE, RANDOM AND [id number] 00:00:00 Test Item Value Reference Range Interpretation Comments CREATININE, URINE, CONC. (test 190.3 MG/DL code = 2072) ALBUMIN, URINE, RANDOM (test code 135.3 MG/DL = 35859) CALC ALBUMIN/CREAT, RND (test 711 MG/G code = 54353) MICROALBUMIN/CREATININE, RANDOM AND [id number] 00:00:00 Test Item Value Reference Range Interpretation Comments CREATININE, URINE, CONC. (test 190.3 MG/DL code = 2072) ALBUMIN, URINE, RANDOM (test code 135.3 MG/DL = 06858) CALC ALBUMIN/CREAT, RND (test 711 MG/G code = 33468) HEMOGLOBIN [id number] 00:00:00 Test Item Value Reference Range Interpretation Comments HEMOGLOBIN A1c (test code = 25318) 7.9 % HEMOGLOBIN [id number] 00:00:00 Test Item Value Reference Range Interpretation Comments HEMOGLOBIN A1c (test code = 29474) 7.9 % LIPID [id number] 00:00:00 Test Item Value Reference Range Interpretation Comments CHOLESTEROL (test code = 2210) 227 MG/DL TRIGLYCERIDES (test code = 2232) 165 MG/DL HDL CHOLESTEROL (test code = 2220) 58 MG/DL CALC LDL CHOL (test code = 2237) 139 MG/DL RISK RATIO LDL/HDL (test code = 2.40 RATIO 2238) COMPREHENSIVE METABOLIC [id number] 00:00:00 Test Item Value Reference Range Interpretation Comments GLUCOSE (test code = 2217) 103 MG/DL BUN (test code = 2208) 25 MG/DL CREATININE (test code = 2214) 1.30 MG/DL eGFR AMER. (test code 48 ML/MIN/1.73 = 44455) eGFR NON- AMER. (test 41 ML/MIN/1.73 code = 10019) CALC BUN/CREAT (test code = 19 RATIO 2235) SODIUM (test code = 2231) 141 MEQ/L POTASSIUM (test code = 2228) 5.0 MEQ/L CHLORIDE (test code = 2215) 104 MEQ/L CARBON DIOXIDE (test code = 21 MEQ/L 2205) CALCIUM (test code = 2209) 10.3 MG/DL PROTEIN, TOTAL (test code = 8.1 G/DL 2228) ALBUMIN (test code = 2201) 4.5 G/DL CALC GLOBULIN (test code = 3.6 G/DL 2239) CALC A/G RATIO (test code = 1.3 RATIO 2233) BILIRUBIN, TOTAL (test code = 0.4 MG/DL 2206) ALKALINE PHOSPHATASE (test 79 U/L code = 2204) AST (test code = 2218) 16 U/L ALT (test code = 2219) 12 U/L HEMOGLOBIN [id number] 00:00:00 Test Item Value Reference Range Interpretation Comments HEMOGLOBIN A1c (test code = 84535) 7.9 % HEMOGLOBIN [id number] 00:00:00 Test Item Value Reference Range Interpretation Comments HEMOGLOBIN A1c (test code = 39847) 7.9 % LIPID [id number] 00:00:00 Test Item Value Reference Range Interpretation Comments CHOLESTEROL (test code = 2210) 227 MG/DL TRIGLYCERIDES (test code = 2232) 165 MG/DL HDL CHOLESTEROL (test code = 2220) 58 MG/DL CALC LDL CHOL (test code = 2237) 139 MG/DL RISK RATIO LDL/HDL (test code = 2.40 RATIO 2238) COMPREHENSIVE METABOLIC [id number] 00:00:00 Test Item Value Reference Range Interpretation Comments GLUCOSE (test code = 2217) 103 MG/DL BUN (test code = 2208) 25 MG/DL CREATININE (test code = 2214) 1.30 MG/DL eGFR AMER. (test code 48 ML/MIN/1.73 = 55308) eGFR NON- AMER. (test 41 ML/MIN/1.73 code = 25478) CALC BUN/CREAT (test code = 19 RATIO 2235) SODIUM (test code = 2231) 141 MEQ/L POTASSIUM (test code = 2228) 5.0 MEQ/L CHLORIDE (test code = 2215) 104 MEQ/L CARBON DIOXIDE (test code = 21 MEQ/L 2205) CALCIUM (test code = 2209) 10.3 MG/DL PROTEIN, TOTAL (test code = 8.1 G/DL 2228) ALBUMIN (test code = 2201) 4.5 G/DL CALC GLOBULIN (test code = 3.6 G/DL 2240) CALC A/G RATIO (test code = 1.3 RATIO 2234) BILIRUBIN, TOTAL (test code = 0.4 MG/DL 2206) ALKALINE PHOSPHATASE (test 79 U/L code = 2204) AST (test code = 2218) 16 U/L ALT (test code = 2219) 12 U/L COMPREHENSIVE METABOLIC [id number] 00:00:00 Test Item Value Reference Range Interpretation Comments GLUCOSE (test code = 2217) 138 MG/DL BUN (test code = 2208) 33 MG/DL CREATININE (test code = 2214) 1.25 MG/DL eGFR AMER. (test code 50 ML/MIN/1.73 = 11313) eGFR NON- AMER. (test 43 ML/MIN/1.73 code = 61213) CALC BUN/CREAT (test code = 26 RATIO 2235) SODIUM (test code = 2231) 139 MEQ/L POTASSIUM (test code = 2228) 4.9 MEQ/L CHLORIDE (test code = 2215) 104 MEQ/L CARBON DIOXIDE (test code = 23 MEQ/L 2205) CALCIUM (test code = 2209) 9.6 MG/DL PROTEIN, TOTAL (test code = 7.3 G/DL 2228) ALBUMIN (test code = 2201) 4.4 G/DL CALC GLOBULIN (test code = 2.9 G/DL 2240) CALC A/G RATIO (test code = 1.5 RATIO 2234) BILIRUBIN, TOTAL (test code = 0.3 MG/DL 2206) ALKALINE PHOSPHATASE (test 85 U/L code = 2204) AST (test code = 2218) 16 U/L ALT (test code = 2219) 12 U/L LIPID [id number] 00:00:00 Test Item Value Reference Range Interpretation Comments CHOLESTEROL (test code = 2210) 211 MG/DL TRIGLYCERIDES (test code = 2232) 245 MG/DL HDL CHOLESTEROL (test code = 2220) 52 MG/DL CALC LDL CHOL (test code = 2237) 122 MG/DL RISK RATIO LDL/HDL (test code = 2.35 RATIO 2238) COMPREHENSIVE METABOLIC [id number] 00:00:00 Test Item Value Reference Range Interpretation Comments GLUCOSE (test code = 2217) 138 MG/DL BUN (test code = 2208) 33 MG/DL CREATININE (test code = 2214) 1.25 MG/DL eGFR AMER. (test code 50 ML/MIN/1.73 = 99585) eGFR NON- AMER. (test 43 ML/MIN/1.73 code = 46485) CALC BUN/CREAT (test code = 26 RATIO 2235) SODIUM (test code = 2231) 139 MEQ/L POTASSIUM (test code = 2228) 4.9 MEQ/L CHLORIDE (test code = 2215) 104 MEQ/L CARBON DIOXIDE (test code = 23 MEQ/L 2205) CALCIUM (test code = 2209) 9.6 MG/DL PROTEIN, TOTAL (test code = 7.3 G/DL 2228) ALBUMIN (test code = 2201) 4.4 G/DL CALC GLOBULIN (test code = 2.9 G/DL 2240) CALC A/G RATIO (test code = 1.5 RATIO 2234) BILIRUBIN, TOTAL (test code = 0.3 MG/DL 2206) ALKALINE PHOSPHATASE (test 85 U/L code = 2204) AST (test code = 2218) 16 U/L ALT (test code = 2219) 12 U/L LIPID [id number] 00:00:00 Test Item Value Reference Range Interpretation Comments CHOLESTEROL (test code = 2210) 211 MG/DL TRIGLYCERIDES (test code = 2232) 245 MG/DL HDL CHOLESTEROL (test code = 2220) 52 MG/DL CALC LDL CHOL (test code = 2237) 122 MG/DL RISK RATIO LDL/HDL (test code = 2.35 RATIO 2238) HEMOGLOBIN [id number] 00:00:00 Test Item Value Reference Range Interpretation Comments HEMOGLOBIN A1c (test code = 86233) 7.5 % HEMOGLOBIN [id number] 00:00:00 Test Item Value Reference Range Interpretation Comments HEMOGLOBIN A1c (test code = 45840) 7.5 % HEMOGLOBIN [id number] 00:00:00 Test Item Value Reference Range Interpretation Comments HEMOGLOBIN A1c (test code = 64411) 7.5 % HEMOGLOBIN [id number] 00:00:00 Test Item Value Reference Range Interpretation Comments HEMOGLOBIN A1c (test code = 29103) 7.5 % TROPONIN [id number] 00:00:00 Test Item Value Reference Range Interpretation Comments TROPONIN T (test code = 4017) <0.010 UG/L TROPONIN [id number] 00:00:00 Test Item Value Reference Range Interpretation Comments TROPONIN T (test code = 4017) <0.010 UG/L COMPREHENSIVE METABOLIC [id number] 00:00:00 Test Item Value Reference Range Interpretation Comments GLUCOSE (test code = 2217) 68 MG/DL BUN (test code = 2208) 31 MG/DL CREATININE (test code = 2214) 1.10 MG/DL eGFR AMER. (test code 59 ML/MIN/1.73 = 44037) eGFR NON- AMER. (test 51 ML/MIN/1.73 code = 50546) CALC BUN/CREAT (test code = 28 RATIO 2235) SODIUM (test code = 2231) 142 MEQ/L POTASSIUM (test code = 2228) 4.8 MEQ/L CHLORIDE (test code = 2215) 105 MEQ/L CARBON DIOXIDE (test code = 21 MEQ/L 2205) CALCIUM (test code = 2209) 9.6 MG/DL PROTEIN, TOTAL (test code = 7.4 G/DL 2228) ALBUMIN (test code = 2201) 4.5 G/DL CALC GLOBULIN (test code = 2.9 G/DL 2239) CALC A/G RATIO (test code = 1.6 RATIO 2234) BILIRUBIN, TOTAL (test code = 0.3 MG/DL 2206) ALKALINE PHOSPHATASE (test 80 U/L code = 2204) AST (test code = 2218) 18 U/L ALT (test code = 2219) 9 U/L CBC W/AUTO [id number] 00:00:00 Test Item Value Reference Range Interpretation Comments WBC (test code = 1001) 7.3 K/UL RBC (test code = 1002) 4.23 M/UL HEMOGLOBIN (test code = 1003) 12.7 G/DL HEMATOCRIT (test code = 1004) 37.0 % MCV (test code = 1005) 87.5 fL MCH (test code = 1006) 30.0 PG MCHC (test code = 1007) 34.3 G/DL RDW (test code = 1038) 13.5 % NEUTROPHILS (test code = 1008) 43.0 % LYMPHOCYTES (test code = 1010) 46.1 % MONOCYTES (test code = 1011) 7.9 % EOSINOPHILS (test code = 1012) 2.5 % BASOPHILS (test code = 1013) 0.5 % PLATELET COUNT (test code = 1015) 249 K/UL CBC W/AUTO [id number] 00:00:00 Test Item Value Reference Range Interpretation Comments WBC (test code = 1001) 7.3 K/UL RBC (test code = 1002) 4.23 M/UL HEMOGLOBIN (test code = 1003) 12.7 G/DL HEMATOCRIT (test code = 1004) 37.0 % MCV (test code = 1005) 87.5 fL MCH (test code = 1006) 30.0 PG MCHC (test code = 1007) 34.3 G/DL RDW (test code = 1038) 13.5 % NEUTROPHILS (test code = 1008) 43.0 % LYMPHOCYTES (test code = 1010) 46.1 % MONOCYTES (test code = 1011) 7.9 % EOSINOPHILS (test code = 1012) 2.5 % BASOPHILS (test code = 1013) 0.5 % PLATELET COUNT (test code = 1015) 249 K/UL CK, [id number] 00:00:00 Test Item Value Reference Range Interpretation Comments CK, TOTAL (test code = 2013) 67 U/L COMPREHENSIVE METABOLIC [id number] 00:00:00 Test Item Value Reference Range Interpretation Comments GLUCOSE (test code = 2217) 68 MG/DL BUN (test code = 8) 31 MG/DL CREATININE (test code = 2214) 1.10 MG/DL eGFR AMER. (test code 59 ML/MIN/1.73 = 42194) eGFR NON- AMER. (test 51 ML/MIN/1.73 code = 72310) CALC BUN/CREAT (test code = 28 RATIO 2235) SODIUM (test code = 2231) 142 MEQ/L POTASSIUM (test code = 2228) 4.8 MEQ/L CHLORIDE (test code = 2215) 105 MEQ/L CARBON DIOXIDE (test code = 21 MEQ/L 220) CALCIUM (test code = 2209) 9.6 MG/DL PROTEIN, TOTAL (test code = 7.4 G/DL 2228) ALBUMIN (test code = 2201) 4.5 G/DL CALC GLOBULIN (test code = 2.9 G/DL 224) CALC A/G RATIO (test code = 1.6 RATIO 2233) BILIRUBIN, TOTAL (test code = 0.3 MG/DL 2206) ALKALINE PHOSPHATASE (test 80 U/L code = 2204) AST (test code = 2218) 18 U/L ALT (test code = 2219) 9 U/L CBC W/AUTO [id number] 00:00:00 Test Item Value Reference Range Interpretation Comments WBC (test code = 1001) 7.3 K/UL RBC (test code = 1002) 4.23 M/UL HEMOGLOBIN (test code = 1003) 12.7 G/DL HEMATOCRIT (test code = 1004) 37.0 % MCV (test code = 1005) 87.5 fL MCH (test code = 1006) 30.0 PG MCHC (test code = 1007) 34.3 G/DL RDW (test code = 1038) 13.5 % NEUTROPHILS (test code = 1008) 43.0 % LYMPHOCYTES (test code = 1010) 46.1 % MONOCYTES (test code = 1011) 7.9 % EOSINOPHILS (test code = 1012) 2.5 % BASOPHILS (test code = 1013) 0.5 % PLATELET COUNT (test code = 1015) 249 K/UL CBC W/AUTO [id number] 00:00:00 Test Item Value Reference Range Interpretation Comments WBC (test code = 1001) 7.3 K/UL RBC (test code = 1002) 4.23 M/UL HEMOGLOBIN (test code = 1003) 12.7 G/DL HEMATOCRIT (test code = 1004) 37.0 % MCV (test code = 1005) 87.5 fL MCH (test code = 1006) 30.0 PG MCHC (test code = 1007) 34.3 G/DL RDW (test code = 1038) 13.5 % NEUTROPHILS (test code = 1008) 43.0 % LYMPHOCYTES (test code = 1010) 46.1 % MONOCYTES (test code = 1011) 7.9 % EOSINOPHILS (test code = 1012) 2.5 % BASOPHILS (test code = 1013) 0.5 % PLATELET COUNT (test code = 1015) 249 K/UL CK, [id number] 00:00:00 Test Item Value Reference Range Interpretation Comments CK, TOTAL (test code = 2013) 67 U/L [id number] 00:00:00 Test Item Value Reference Range Interpretation Comments TSH, THIRD GENERATION (test code 3.230 UIU/ML = 2821) [id number] 00:00:00 Test Item Value Reference Range Interpretation Comments TSH, THIRD GENERATION (test code 3.230 UIU/ML = 2821) CBC W/AUTO [id number] 00:00:00 Test Item Value Reference Range Interpretation Comments WBC (test code = 1001) 7.8 K/UL RBC (test code = 1002) 4.28 M/UL HEMOGLOBIN (test code = 1003) 12.9 G/DL HEMATOCRIT (test code = 1004) 37.4 % MCV (test code = 1005) 87.4 fL MCH (test code = 1006) 30.1 PG MCHC (test code = 1007) 34.5 G/DL RDW (test code = 1038) 13.6 % NEUTROPHILS (test code = 1008) 55.0 % LYMPHOCYTES (test code = 1010) 35.9 % MONOCYTES (test code = 1011) 6.7 % EOSINOPHILS (test code = 1012) 1.9 % BASOPHILS (test code = 1013) 0.5 % PLATELET COUNT (test code = 1015) 277 K/UL CBC W/AUTO [id number] 00:00:00 Test Item Value Reference Range Interpretation Comments WBC (test code = 1001) 7.8 K/UL RBC (test code = 1002) 4.28 M/UL HEMOGLOBIN (test code = 1003) 12.9 G/DL HEMATOCRIT (test code = 1004) 37.4 % MCV (test code = 1005) 87.4 fL MCH (test code = 1006) 30.1 PG MCHC (test code = 1007) 34.5 G/DL RDW (test code = 1038) 13.6 % NEUTROPHILS (test code = 1008) 55.0 % LYMPHOCYTES (test code = 1010) 35.9 % MONOCYTES (test code = 1011) 6.7 % EOSINOPHILS (test code = 1012) 1.9 % BASOPHILS (test code = 1013) 0.5 % PLATELET COUNT (test code = 1015) 277 K/UL VITAMIN [id number] 00:00:00 Test Item Value Reference Range Interpretation Comments VITAMIN B-12 (test code = 2840) 528 PG/ML VITAMIN [id number] 00:00:00 Test Item Value Reference Range Interpretation Comments VITAMIN B-12 (test code = 2840) 528 PG/ML HEMOGLOBIN [id number] 00:00:00 Test Item Value Reference Range Interpretation Comments HEMOGLOBIN A1c (test code = 26720) 7.4 % HEMOGLOBIN [id number] 00:00:00 Test Item Value Reference Range Interpretation Comments HEMOGLOBIN A1c (test code = 81296) 7.4 % LIPID PANEL WITH REFLEX DIRECT [id number] 00:00:00 Test Item Value Reference Range Interpretation Comments CHOLESTEROL (test code = 2210) 211 MG/DL TRIGLYCERIDES (test code = 2232) 257 MG/DL HDL CHOLESTEROL (test code = 2220) 54 MG/DL CALC LDL CHOL (test code = 2237) 106 MG/DL RISK RATIO LDL/HDL (test code = 1.96 RATIO 2238) COMPREHENSIVE METABOLIC [id number] 00:00:00 Test Item Value Reference Range Interpretation Comments GLUCOSE (test code = 2217) 222 MG/DL BUN (test code = 2208) 30 MG/DL CREATININE (test code = 2214) 1.26 MG/DL eGFR AMER. (test code 50 ML/MIN/1.73 = 12211) eGFR NON- AMER. (test 43 ML/MIN/1.73 code = 62967) CALC BUN/CREAT (test code = 24 RATIO 2235) SODIUM (test code = 2231) 139 MEQ/L POTASSIUM (test code = 2228) 4.7 MEQ/L CHLORIDE (test code = 2215) 101 MEQ/L CARBON DIOXIDE (test code = 20 MEQ/L 2205) CALCIUM (test code = 2209) 9.2 MG/DL PROTEIN, TOTAL (test code = 7.7 G/DL 2228) ALBUMIN (test code = 2201) 4.4 G/DL CALC GLOBULIN (test code = 3.3 G/DL 2239) CALC A/G RATIO (test code = 1.3 RATIO 2233) BILIRUBIN, TOTAL (test code = <0.2 MG/DL 2206) ALKALINE PHOSPHATASE (test 92 U/L code = 2204) AST (test code = 2218) 15 U/L ALT (test code = 2219) 10 U/L [id number] 00:00:00 Test Item Value Reference Range Interpretation Comments TSH, THIRD GENERATION (test code 3.230 UIU/ML = 2821) [id number] 00:00:00 Test Item Value Reference Range Interpretation Comments TSH, THIRD GENERATION (test code 3.230 UIU/ML = 2821) CBC W/AUTO [id number] 00:00:00 Test Item Value Reference Range Interpretation Comments WBC (test code = 1001) 7.8 K/UL RBC (test code = 1002) 4.28 M/UL HEMOGLOBIN (test code = 1003) 12.9 G/DL HEMATOCRIT (test code = 1004) 37.4 % MCV (test code = 1005) 87.4 fL MCH (test code = 1006) 30.1 PG MCHC (test code = 1007) 34.5 G/DL RDW (test code = 1038) 13.6 % NEUTROPHILS (test code = 1008) 55.0 % LYMPHOCYTES (test code = 1010) 35.9 % MONOCYTES (test code = 1011) 6.7 % EOSINOPHILS (test code = 1012) 1.9 % BASOPHILS (test code = 1013) 0.5 % PLATELET COUNT (test code = 1015) 277 K/UL CBC W/AUTO [id number] 00:00:00 Test Item Value Reference Range Interpretation Comments WBC (test code = 1001) 7.8 K/UL RBC (test code = 1002) 4.28 M/UL HEMOGLOBIN (test code = 1003) 12.9 G/DL HEMATOCRIT (test code = 1004) 37.4 % MCV (test code = 1005) 87.4 fL MCH (test code = 1006) 30.1 PG MCHC (test code = 1007) 34.5 G/DL RDW (test code = 1038) 13.6 % NEUTROPHILS (test code = 1008) 55.0 % LYMPHOCYTES (test code = 1010) 35.9 % MONOCYTES (test code = 1011) 6.7 % EOSINOPHILS (test code = 1012) 1.9 % BASOPHILS (test code = 1013) 0.5 % PLATELET COUNT (test code = 1015) 277 K/UL VITAMIN [id number] 00:00:00 Test Item Value Reference Range Interpretation Comments VITAMIN B-12 (test code = 2840) 528 PG/ML VITAMIN [id number] 00:00:00 Test Item Value Reference Range Interpretation Comments VITAMIN B-12 (test code = 2840) 528 PG/ML HEMOGLOBIN [id number] 00:00:00 Test Item Value Reference Range Interpretation Comments HEMOGLOBIN A1c (test code = 09684) 7.4 % HEMOGLOBIN [id number] 00:00:00 Test Item Value Reference Range Interpretation Comments HEMOGLOBIN A1c (test code = 74782) 7.4 % LIPID PANEL WITH REFLEX DIRECT [id number] 00:00:00 Test Item Value Reference Range Interpretation Comments CHOLESTEROL (test code = 2210) 211 MG/DL TRIGLYCERIDES (test code = 2232) 257 MG/DL HDL CHOLESTEROL (test code = 2220) 54 MG/DL CALC LDL CHOL (test code = 2237) 106 MG/DL RISK RATIO LDL/HDL (test code = 1.96 RATIO 2238) COMPREHENSIVE METABOLIC [id number] 00:00:00 Test Item Value Reference Range Interpretation Comments GLUCOSE (test code = 2217) 222 MG/DL BUN (test code = 2208) 30 MG/DL CREATININE (test code = 2214) 1.26 MG/DL eGFR AMER. (test code 50 ML/MIN/1.73 = 81253) eGFR NON- AMER. (test 43 ML/MIN/1.73 code = 75825) CALC BUN/CREAT (test code = 24 RATIO 2235) SODIUM (test code = 2231) 139 MEQ/L POTASSIUM (test code = 2228) 4.7 MEQ/L CHLORIDE (test code = 2215) 101 MEQ/L CARBON DIOXIDE (test code = 20 MEQ/L 2205) CALCIUM (test code = 2209) 9.2 MG/DL PROTEIN, TOTAL (test code = 7.7 G/DL 2228) ALBUMIN (test code = 2201) 4.4 G/DL CALC GLOBULIN (test code = 3.3 G/DL 2239) CALC A/G RATIO (test code = 1.3 RATIO 2233) BILIRUBIN, TOTAL (test code = <0.2 MG/DL 2206) ALKALINE PHOSPHATASE (test 92 U/L code = 220) AST (test code = 2218) 15 U/L ALT (test code = 2219) 10 U/L UNLABELLED SPECIMEN [ADDED][id number] 00:00:00 Test Item Value Reference Range Interpretation Comments NOTE: (test code = 50604) UNLABELLED SPECIMEN [ADDED][id number] 00:00:00 Test Item Value Reference Range Interpretation Comments NOTE: (test code = 46620) CBC W/AUTO [id number] 00:00:00 Test Item Value Reference Range Interpretation Comments WBC (test code = 1001) 6.7 K/UL RBC (test code = 1002) 4.02 M/UL HEMOGLOBIN (test code = 1003) 12.0 G/DL HEMATOCRIT (test code = 1004) 34.8 % MCV (test code = 1005) 86.6 fL MCH (test code = 1006) 29.9 PG MCHC (test code = 1007) 34.5 G/DL RDW (test code = 1038) 13.0 % NEUTROPHILS (test code = 1008) 53.5 % LYMPHOCYTES (test code = 1010) 36.7 % MONOCYTES (test code = 1011) 6.3 % EOSINOPHILS (test code = 1012) 3.0 % BASOPHILS (test code = 1013) 0.5 % PLATELET COUNT (test code = 1015) 284 K/UL CBC W/AUTO [id number] 00:00:00 Test Item Value Reference Range Interpretation Comments WBC (test code = 1001) 6.7 K/UL RBC (test code = 1002) 4.02 M/UL HEMOGLOBIN (test code = 1003) 12.0 G/DL HEMATOCRIT (test code = 1004) 34.8 % MCV (test code = 1005) 86.6 fL MCH (test code = 1006) 29.9 PG MCHC (test code = 1007) 34.5 G/DL RDW (test code = 1038) 13.0 % NEUTROPHILS (test code = 1008) 53.5 % LYMPHOCYTES (test code = 1010) 36.7 % MONOCYTES (test code = 1011) 6.3 % EOSINOPHILS (test code = 1012) 3.0 % BASOPHILS (test code = 1013) 0.5 % PLATELET COUNT (test code = 1015) 284 K/UL LIPID [id number] 00:00:00 Test Item Value Reference Range Interpretation Comments CHOLESTEROL (test code = 2210) 196 MG/DL TRIGLYCERIDES (test code = 2232) 227 MG/DL HDL CHOLESTEROL (test code = 2220) 44 MG/DL CALC LDL CHOL (test code = 2237) 107 MG/DL RISK RATIO LDL/HDL (test code = 2.42 RATIO 2237) HEMOGLOBIN [id number] 00:00:00 Test Item Value Reference Range Interpretation Comments HEMOGLOBIN A1c (test code = 56826) 9.0 % HEMOGLOBIN [id number] 00:00:00 Test Item Value Reference Range Interpretation Comments HEMOGLOBIN A1c (test code = 57697) 9.0 % COMPREHENSIVE METABOLIC [id number] 00:00:00 Test Item Value Reference Range Interpretation Comments GLUCOSE (test code = 2217) 133 MG/DL BUN (test code = 2208) 44 MG/DL CREATININE (test code = 2214) 1.46 MG/DL eGFR AMER. (test code 42 ML/MIN/1.73 = 69955) eGFR NON- AMER. (test 36 ML/MIN/1.73 code = 49905) CALC BUN/CREAT (test code = 30 RATIO 2235) SODIUM (test code = 2231) 142 MEQ/L POTASSIUM (test code = 2228) 5.3 MEQ/L CHLORIDE (test code = 2215) 106 MEQ/L CARBON DIOXIDE (test code = 23 MEQ/L 2205) CALCIUM (test code = 2209) 9.6 MG/DL PROTEIN, TOTAL (test code = 7.2 G/DL 2228) ALBUMIN (test code = 2201) 4.3 G/DL CALC GLOBULIN (test code = 2.9 G/DL 2240) CALC A/G RATIO (test code = 1.5 RATIO 2234) BILIRUBIN, TOTAL (test code = 0.3 MG/DL 2207) ALKALINE PHOSPHATASE (test 96 U/L code = 2204) AST (test code = 2218) 19 U/L ALT (test code = 2219) 17 U/L MICROALBUMIN/CREATININE, RANDOM AND [id number] 00:00:00 Test Item Value Reference Range Interpretation Comments CREATININE, URINE, CONC. (test 97.1 MG/DL code = 2072) ALBUMIN, URINE, RANDOM (test code 18.9 MG/DL = 17929) CALC ALBUMIN/CREAT, RND (test code 195 MG/G = 40339) CBC W/AUTO [id number] 00:00:00 Test Item Value Reference Range Interpretation Comments WBC (test code = 1001) 6.7 K/UL RBC (test code = 1002) 4.02 M/UL HEMOGLOBIN (test code = 1003) 12.0 G/DL HEMATOCRIT (test code = 1004) 34.8 % MCV (test code = 1005) 86.6 fL MCH (test code = 1006) 29.9 PG MCHC (test code = 1007) 34.5 G/DL RDW (test code = 1038) 13.0 % NEUTROPHILS (test code = 1008) 53.5 % LYMPHOCYTES (test code = 1010) 36.7 % MONOCYTES (test code = 1011) 6.3 % EOSINOPHILS (test code = 1012) 3.0 % BASOPHILS (test code = 1013) 0.5 % PLATELET COUNT (test code = 1015) 284 K/UL CBC W/AUTO [id number] 00:00:00 Test Item Value Reference Range Interpretation Comments WBC (test code = 1001) 6.7 K/UL RBC (test code = 1002) 4.02 M/UL HEMOGLOBIN (test code = 1003) 12.0 G/DL HEMATOCRIT (test code = 1004) 34.8 % MCV (test code = 1005) 86.6 fL MCH (test code = 1006) 29.9 PG MCHC (test code = 1007) 34.5 G/DL RDW (test code = 1038) 13.0 % NEUTROPHILS (test code = 1008) 53.5 % LYMPHOCYTES (test code = 1010) 36.7 % MONOCYTES (test code = 1011) 6.3 % EOSINOPHILS (test code = 1012) 3.0 % BASOPHILS (test code = 1013) 0.5 % PLATELET COUNT (test code = 1015) 284 K/UL LIPID [id number] 00:00:00 Test Item Value Reference Range Interpretation Comments CHOLESTEROL (test code = 2210) 196 MG/DL TRIGLYCERIDES (test code = 2232) 227 MG/DL HDL CHOLESTEROL (test code = 2220) 44 MG/DL CALC LDL CHOL (test code = 2237) 107 MG/DL RISK RATIO LDL/HDL (test code = 2.42 RATIO 2238) HEMOGLOBIN [id number] 00:00:00 Test Item Value Reference Range Interpretation Comments HEMOGLOBIN A1c (test code = 75196) 9.0 % HEMOGLOBIN [id number] 00:00:00 Test Item Value Reference Range Interpretation Comments HEMOGLOBIN A1c (test code = 46046) 9.0 % COMPREHENSIVE METABOLIC [id number] 00:00:00 Test Item Value Reference Range Interpretation Comments GLUCOSE (test code = 2217) 133 MG/DL BUN (test code = 2208) 44 MG/DL CREATININE (test code = 2214) 1.46 MG/DL eGFR AMER. (test code 42 ML/MIN/1.73 = 78418) eGFR NON- AMER. (test 36 ML/MIN/1.73 code = 25690) CALC BUN/CREAT (test code = 30 RATIO 2235) SODIUM (test code = 2231) 142 MEQ/L POTASSIUM (test code = 2228) 5.3 MEQ/L CHLORIDE (test code = 2215) 106 MEQ/L CARBON DIOXIDE (test code = 23 MEQ/L 2205) CALCIUM (test code = 2209) 9.6 MG/DL PROTEIN, TOTAL (test code = 7.2 G/DL 2228) ALBUMIN (test code = 2201) 4.3 G/DL CALC GLOBULIN (test code = 2.9 G/DL 2239) CALC A/G RATIO (test code = 1.5 RATIO 223) BILIRUBIN, TOTAL (test code = 0.3 MG/DL 2206) ALKALINE PHOSPHATASE (test 96 U/L code = 2204) AST (test code = 2218) 19 U/L ALT (test code = 2219) 17 U/L MICROALBUMIN/CREATININE, RANDOM AND [id number] 00:00:00 Test Item Value Reference Range Interpretation Comments CREATININE, URINE, CONC. (test 97.1 MG/DL code = 2072) ALBUMIN, URINE, RANDOM (test code 18.9 MG/DL = 93587) CALC ALBUMIN/CREAT, RND (test code 195 MG/G = 03827) COMPREHENSIVE METABOLIC [id number] 00:00:00 Test Item Value Reference Range Interpretation Comments GLUCOSE (test code = 2217) 235 MG/DL BUN (test code = 2208) 36 MG/DL CREATININE (test code = 2214) 1.62 MG/DL eGFR AMER. (test code 37 ML/MIN/1.73 = 36876) eGFR NON- AMER. (test 32 ML/MIN/1.73 code = 07084) CALC BUN/CREAT (test code = 22 RATIO 2235) SODIUM (test code = 2231) 143 MEQ/L POTASSIUM (test code = 2228) 4.7 MEQ/L CHLORIDE (test code = 2215) 105 MEQ/L CARBON DIOXIDE (test code = 23 MEQ/L 2206) CALCIUM (test code = 2209) 9.6 MG/DL PROTEIN, TOTAL (test code = 7.3 G/DL 2228) ALBUMIN (test code = 2201) 4.3 G/DL CALC GLOBULIN (test code = 3.0 G/DL 2240) CALC A/G RATIO (test code = 1.4 RATIO 2234) BILIRUBIN, TOTAL (test code = 0.3 MG/DL 2206) ALKALINE PHOSPHATASE (test 85 U/L code = 2204) AST (test code = 2218) 15 U/L ALT (test code = 2219) 9 U/L COMPREHENSIVE METABOLIC [id number] 00:00:00 Test Item Value Reference Range Interpretation Comments GLUCOSE (test code = 2217) 235 MG/DL BUN (test code = 2208) 36 MG/DL CREATININE (test code = 2214) 1.62 MG/DL eGFR AMER. (test code 37 ML/MIN/1.73 = 16070) eGFR NON- AMER. (test 32 ML/MIN/1.73 code = 04791) CALC BUN/CREAT (test code = 22 RATIO 2235) SODIUM (test code = 2231) 143 MEQ/L POTASSIUM (test code = 2228) 4.7 MEQ/L CHLORIDE (test code = 2215) 105 MEQ/L CARBON DIOXIDE (test code = 23 MEQ/L 2205) CALCIUM (test code = 2209) 9.6 MG/DL PROTEIN, TOTAL (test code = 7.3 G/DL 2228) ALBUMIN (test code = 2201) 4.3 G/DL CALC GLOBULIN (test code = 3.0 G/DL 2239) CALC A/G RATIO (test code = 1.4 RATIO 2233) BILIRUBIN, TOTAL (test code = 0.3 MG/DL 2206) ALKALINE PHOSPHATASE (test 85 U/L code = 2204) AST (test code = 2218) 15 U/L ALT (test code = 2219) 9 U/L CBC W/AUTO [id number] 00:00:00 Test Item Value Reference Range Interpretation Comments WBC (test code = 1001) 7.0 K/UL RBC (test code = 1002) 4.12 M/UL HEMOGLOBIN (test code = 1003) 12.3 G/DL HEMATOCRIT (test code = 1004) 35.6 % MCV (test code = 1005) 86.4 fL MCH (test code = 1006) 29.9 PG MCHC (test code = 1007) 34.6 G/DL RDW (test code = 1038) 13.5 % NEUTROPHILS (test code = 1008) 51.4 % LYMPHOCYTES (test code = 1010) 36.4 % MONOCYTES (test code = 1011) 8.9 % EOSINOPHILS (test code = 1012) 2.7 % BASOPHILS (test code = 1013) 0.6 % PLATELET COUNT (test code = 1015) 247 K/UL CBC W/AUTO [id number] 00:00:00 Test Item Value Reference Range Interpretation Comments WBC (test code = 1001) 7.0 K/UL RBC (test code = 1002) 4.12 M/UL HEMOGLOBIN (test code = 1003) 12.3 G/DL HEMATOCRIT (test code = 1004) 35.6 % MCV (test code = 1005) 86.4 fL MCH (test code = 1006) 29.9 PG MCHC (test code = 1007) 34.6 G/DL RDW (test code = 1038) 13.5 % NEUTROPHILS (test code = 1008) 51.4 % LYMPHOCYTES (test code = 1010) 36.4 % MONOCYTES (test code = 1011) 8.9 % EOSINOPHILS (test code = 1012) 2.7 % BASOPHILS (test code = 1013) 0.6 % PLATELET COUNT (test code = 1015) 247 K/UL HEMOGLOBIN [id number] 00:00:00 Test Item Value Reference Range Interpretation Comments HEMOGLOBIN A1c (test code = 94406) 7.1 % HEMOGLOBIN [id number] 00:00:00 Test Item Value Reference Range Interpretation Comments HEMOGLOBIN A1c (test code = 40320) 7.1 % COMPREHENSIVE METABOLIC [id number] 00:00:00 Test Item Value Reference Range Interpretation Comments GLUCOSE (test code = 2217) 116 MG/DL BUN (test code = 2208) 35 MG/DL CREATININE (test code = 2214) 1.31 MG/DL eGFR AMER. (test code 48 ML/MIN/1.73 = 22618) eGFR NON- AMER. (test 41 ML/MIN/1.73 code = 41393) CALC BUN/CREAT (test code = 27 RATIO 2235) SODIUM (test code = 2231) 141 MEQ/L POTASSIUM (test code = 2228) 5.0 MEQ/L CHLORIDE (test code = 2215) 104 MEQ/L CARBON DIOXIDE (test code = 22 MEQ/L 2205) CALCIUM (test code = 2209) 9.5 MG/DL PROTEIN, TOTAL (test code = 7.2 G/DL 2228) ALBUMIN (test code = 2201) 4.3 G/DL CALC GLOBULIN (test code = 2.9 G/DL 2240) CALC A/G RATIO (test code = 1.5 RATIO 2234) BILIRUBIN, TOTAL (test code = 0.2 MG/DL 2206) ALKALINE PHOSPHATASE (test 78 U/L code = 2204) AST (test code = 2218) 15 U/L ALT (test code = 2219) 10 U/L CBC W/AUTO [id number] 00:00:00 Test Item Value Reference Range Interpretation Comments WBC (test code = 1001) 7.0 K/UL RBC (test code = 1002) 4.12 M/UL HEMOGLOBIN (test code = 1003) 12.3 G/DL HEMATOCRIT (test code = 1004) 35.6 % MCV (test code = 1005) 86.4 fL MCH (test code = 1006) 29.9 PG MCHC (test code = 1007) 34.6 G/DL RDW (test code = 1038) 13.5 % NEUTROPHILS (test code = 1008) 51.4 % LYMPHOCYTES (test code = 1010) 36.4 % MONOCYTES (test code = 1011) 8.9 % EOSINOPHILS (test code = 1012) 2.7 % BASOPHILS (test code = 1013) 0.6 % PLATELET COUNT (test code = 1015) 247 K/UL CBC W/AUTO [id number] 00:00:00 Test Item Value Reference Range Interpretation Comments WBC (test code = 1001) 7.0 K/UL RBC (test code = 1002) 4.12 M/UL HEMOGLOBIN (test code = 1003) 12.3 G/DL HEMATOCRIT (test code = 1004) 35.6 % MCV (test code = 1005) 86.4 fL MCH (test code = 1006) 29.9 PG MCHC (test code = 1007) 34.6 G/DL RDW (test code = 1038) 13.5 % NEUTROPHILS (test code = 1008) 51.4 % LYMPHOCYTES (test code = 1010) 36.4 % MONOCYTES (test code = 1011) 8.9 % EOSINOPHILS (test code = 1012) 2.7 % BASOPHILS (test code = 1013) 0.6 % PLATELET COUNT (test code = 1015) 247 K/UL HEMOGLOBIN [id number] 00:00:00 Test Item Value Reference Range Interpretation Comments HEMOGLOBIN A1c (test code = 40997) 7.1 % HEMOGLOBIN [id number] 00:00:00 Test Item Value Reference Range Interpretation Comments HEMOGLOBIN A1c (test code = 99089) 7.1 % COMPREHENSIVE METABOLIC [id number] 00:00:00 Test Item Value Reference Range Interpretation Comments GLUCOSE (test code = 2217) 116 MG/DL BUN (test code = 2208) 35 MG/DL CREATININE (test code = 2214) 1.31 MG/DL eGFR AMER. (test code 48 ML/MIN/1.73 = 18790) eGFR NON- AMER. (test 41 ML/MIN/1.73 code = 76626) CALC BUN/CREAT (test code = 27 RATIO 2235) SODIUM (test code = 2231) 141 MEQ/L POTASSIUM (test code = 2228) 5.0 MEQ/L CHLORIDE (test code = 2215) 104 MEQ/L CARBON DIOXIDE (test code = 22 MEQ/L 220) CALCIUM (test code = 2209) 9.5 MG/DL PROTEIN, TOTAL (test code = 7.2 G/DL 222) ALBUMIN (test code = 2201) 4.3 G/DL CALC GLOBULIN (test code = 2.9 G/DL 2240) CALC A/G RATIO (test code = 1.5 RATIO 2234) BILIRUBIN, TOTAL (test code = 0.2 MG/DL 2206) ALKALINE PHOSPHATASE (test 78 U/L code = 2204) AST (test code = 2218) 15 U/L ALT (test code = 2219) 10 U/L COMPREHENSIVE METABOLIC [id number] 00:00:00 Test Item Value Reference Range Interpretation Comments GLUCOSE (test code = 2217) 209 MG/DL BUN (test code = 2208) 44 MG/DL CREATININE (test code = 2214) 1.50 MG/DL eGFR AMER. (test code 41 ML/MIN/1.73 = 22526) eGFR NON- AMER. (test 35 ML/MIN/1.73 code = 39092) CALC BUN/CREAT (test code = 29 RATIO 2235) SODIUM (test code = 2231) 144 MEQ/L POTASSIUM (test code = 2228) 4.7 MEQ/L CHLORIDE (test code = 2215) 101 MEQ/L CARBON DIOXIDE (test code = 23 MEQ/L 2205) CALCIUM (test code = 2209) 9.2 MG/DL PROTEIN, TOTAL (test code = 7.5 G/DL 2228) ALBUMIN (test code = 2201) 4.5 G/DL CALC GLOBULIN (test code = 3.0 G/DL 2240) CALC A/G RATIO (test code = 1.5 RATIO 2234) BILIRUBIN, TOTAL (test code = <0.2 MG/DL 2206) ALKALINE PHOSPHATASE (test 81 U/L code = 2204) AST (test code = 2218) 14 U/L ALT (test code = 2219) 13 U/L LIPID [id number] 00:00:00 Test Item Value Reference Range Interpretation Comments CHOLESTEROL (test code = 2210) 195 MG/DL TRIGLYCERIDES (test code = 2232) 195 MG/DL HDL CHOLESTEROL (test code = 2220) 49 MG/DL CALC LDL CHOL (test code = 2237) 107 MG/DL RISK RATIO LDL/HDL (test code = 2.18 RATIO 2238) CBC W/AUTO [id number] 00:00:00 Test Item Value Reference Range Interpretation Comments WBC (test code = 1001) 7.4 K/UL RBC (test code = 1002) 4.23 M/UL HEMOGLOBIN (test code = 1003) 12.4 G/DL HEMATOCRIT (test code = 1004) 36.2 % MCV (test code = 1005) 85.6 fL MCH (test code = 1006) 29.3 PG MCHC (test code = 1007) 34.3 G/DL RDW (test code = 1038) 13.8 % NEUTROPHILS (test code = 1008) 58.5 % LYMPHOCYTES (test code = 1010) 31.4 % MONOCYTES (test code = 1011) 7.4 % EOSINOPHILS (test code = 1012) 2.2 % BASOPHILS (test code = 1013) 0.5 % PLATELET COUNT (test code = 1015) 245 K/UL CBC W/AUTO [id number] 00:00:00 Test Item Value Reference Range Interpretation Comments WBC (test code = 1001) 7.4 K/UL RBC (test code = 1002) 4.23 M/UL HEMOGLOBIN (test code = 1003) 12.4 G/DL HEMATOCRIT (test code = 1004) 36.2 % MCV (test code = 1005) 85.6 fL MCH (test code = 1006) 29.3 PG MCHC (test code = 1007) 34.3 G/DL RDW (test code = 1038) 13.8 % NEUTROPHILS (test code = 1008) 58.5 % LYMPHOCYTES (test code = 1010) 31.4 % MONOCYTES (test code = 1011) 7.4 % EOSINOPHILS (test code = 1012) 2.2 % BASOPHILS (test code = 1013) 0.5 % PLATELET COUNT (test code = 1015) 245 K/UL HEMOGLOBIN [id number] 00:00:00 Test Item Value Reference Range Interpretation Comments HEMOGLOBIN A1c (test code = 92478) 7.8 % HEMOGLOBIN [id number] 00:00:00 Test Item Value Reference Range Interpretation Comments HEMOGLOBIN A1c (test code = 87413) 7.8 % COMPREHENSIVE METABOLIC [id number] 00:00:00 Test Item Value Reference Range Interpretation Comments GLUCOSE (test code = 2217) 209 MG/DL BUN (test code = 2208) 44 MG/DL CREATININE (test code = 2214) 1.50 MG/DL eGFR AMER. (test code 41 ML/MIN/1.73 = 05179) eGFR NON- AMER. (test 35 ML/MIN/1.73 code = 07535) CALC BUN/CREAT (test code = 29 RATIO 2235) SODIUM (test code = 2231) 144 MEQ/L POTASSIUM (test code = 2228) 4.7 MEQ/L CHLORIDE (test code = 2215) 101 MEQ/L CARBON DIOXIDE (test code = 23 MEQ/L 2205) CALCIUM (test code = 2209) 9.2 MG/DL PROTEIN, TOTAL (test code = 7.5 G/DL 2228) ALBUMIN (test code = 2201) 4.5 G/DL CALC GLOBULIN (test code = 3.0 G/DL 2240) CALC A/G RATIO (test code = 1.5 RATIO 2234) BILIRUBIN, TOTAL (test code = <0.2 MG/DL 2206) ALKALINE PHOSPHATASE (test 81 U/L code = 2204) AST (test code = 2218) 14 U/L ALT (test code = 2219) 13 U/L LIPID [id number] 00:00:00 Test Item Value Reference Range Interpretation Comments CHOLESTEROL (test code = 2210) 195 MG/DL TRIGLYCERIDES (test code = 2232) 195 MG/DL HDL CHOLESTEROL (test code = 2220) 49 MG/DL CALC LDL CHOL (test code = 2237) 107 MG/DL RISK RATIO LDL/HDL (test code = 2.18 RATIO 2238) CBC W/AUTO [id number] 00:00:00 Test Item Value Reference Range Interpretation Comments WBC (test code = 1001) 7.4 K/UL RBC (test code = 1002) 4.23 M/UL HEMOGLOBIN (test code = 1003) 12.4 G/DL HEMATOCRIT (test code = 1004) 36.2 % MCV (test code = 1005) 85.6 fL MCH (test code = 1006) 29.3 PG MCHC (test code = 1007) 34.3 G/DL RDW (test code = 1038) 13.8 % NEUTROPHILS (test code = 1008) 58.5 % LYMPHOCYTES (test code = 1010) 31.4 % MONOCYTES (test code = 1011) 7.4 % EOSINOPHILS (test code = 1012) 2.2 % BASOPHILS (test code = 1013) 0.5 % PLATELET COUNT (test code = 1015) 245 K/UL CBC W/AUTO [id number] 00:00:00 Test Item Value Reference Range Interpretation Comments WBC (test code = 1001) 7.4 K/UL RBC (test code = 1002) 4.23 M/UL HEMOGLOBIN (test code = 1003) 12.4 G/DL HEMATOCRIT (test code = 1004) 36.2 % MCV (test code = 1005) 85.6 fL MCH (test code = 1006) 29.3 PG MCHC (test code = 1007) 34.3 G/DL RDW (test code = 1038) 13.8 % NEUTROPHILS (test code = 1008) 58.5 % LYMPHOCYTES (test code = 1010) 31.4 % MONOCYTES (test code = 1011) 7.4 % EOSINOPHILS (test code = 1012) 2.2 % BASOPHILS (test code = 1013) 0.5 % PLATELET COUNT (test code = 1015) 245 K/UL HEMOGLOBIN [id number] 00:00:00 Test Item Value Reference Range Interpretation Comments HEMOGLOBIN A1c (test code = 01521) 7.8 % HEMOGLOBIN [id number] 00:00:00 Test Item Value Reference Range Interpretation Comments HEMOGLOBIN A1c (test code = 91990) 7.8 % CBC W/AUTO DIFF WITH PLATELETS [ADDED]2018-02-14 00:00:00 Test Item Value Reference Range Interpretation Comments WBC (test code = 1001) 7.0 K/UL RBC (test code = 1002) 4.14 M/UL HEMOGLOBIN (test code = 1003) 12.4 G/DL HEMATOCRIT (test code = 1004) 35.2 % MCV (test code = 1005) 85.0 fL MCH (test code = 1006) 30.0 PG MCHC (test code = 1007) 35.2 G/DL RDW (test code = 1038) 13.0 % NEUTROPHILS (test code = 1008) 62.0 % LYMPHOCYTES (test code = 1010) 27.0 % MONOCYTES (test code = 1011) 8.3 % EOSINOPHILS (test code = 1012) 2.1 % BASOPHILS (test code = 1013) 0.6 % PLATELET COUNT (test code = 1015) 278 K/UL CBC W/AUTO DIFF WITH PLATELETS [ADDED]2018-02-14 00:00:00 Test Item Value Reference Range Interpretation Comments WBC (test code = 1001) 7.0 K/UL RBC (test code = 1002) 4.14 M/UL HEMOGLOBIN (test code = 1003) 12.4 G/DL HEMATOCRIT (test code = 1004) 35.2 % MCV (test code = 1005) 85.0 fL MCH (test code = 1006) 30.0 PG MCHC (test code = 1007) 35.2 G/DL RDW (test code = 1038) 13.0 % NEUTROPHILS (test code = 1008) 62.0 % LYMPHOCYTES (test code = 1010) 27.0 % MONOCYTES (test code = 1011) 8.3 % EOSINOPHILS (test code = 1012) 2.1 % BASOPHILS (test code = 1013) 0.6 % PLATELET COUNT (test code = 1015) 278 K/UL HEMOGLOBIN A1c [ADDED]2018-02-14 00:00:00 Test Item Value Reference Range Interpretation Comments HEMOGLOBIN A1c (test code = 73454) 7.3 % HEMOGLOBIN A1c [ADDED]2018-02-14 00:00:00 Test Item Value Reference Range Interpretation Comments HEMOGLOBIN A1c (test code = 12159) 7.3 % LIPID PANEL [ADDED]2018-02-14 00:00:00 Test Item Value Reference Range Interpretation Comments CHOLESTEROL (test code = 2210) 261 MG/DL TRIGLYCERIDES (test code = 2232) 239 MG/DL HDL CHOLESTEROL (test code = 2220) 52 MG/DL CALC LDL CHOL (test code = 2237) 161 MG/DL RISK RATIO LDL/HDL (test code = 3.10 RATIO 2238) COMPREHENSIVE METABOLIC PANEL [ADDED]2018-02-14 00:00:00 Test Item Value Reference Range Interpretation Comments GLUCOSE (test code = 2217) 177 MG/DL BUN (test code = 2208) 20 MG/DL CREATININE (test code = 2214) 1.17 MG/DL eGFR AMER. (test code 55 ML/MIN/1.73 = 05606) eGFR NON- AMER. (test 48 ML/MIN/1.73 code = 21645) CALC BUN/CREAT (test code = 17 RATIO 2235) SODIUM (test code = 2231) 141 MEQ/L POTASSIUM (test code = 2228) 4.5 MEQ/L CHLORIDE (test code = 2215) 106 MEQ/L CARBON DIOXIDE (test code = 22 MEQ/L 220) CALCIUM (test code = 2209) 9.3 MG/DL PROTEIN, TOTAL (test code = 7.3 G/DL 2228) ALBUMIN (test code = 2201) 4.2 G/DL CALC GLOBULIN (test code = 3.1 G/DL 2240) CALC A/G RATIO (test code = 1.4 RATIO 2233) BILIRUBIN, TOTAL (test code = <0.2 MG/DL 2206) ALKALINE PHOSPHATASE (test 80 U/L code = 220) AST (test code = 2218) 16 U/L ALT (test code = 2219) 13 U/L ALBUMIN/CREATININE RATIO, RANDOM URINE [ADDED]2018-02-14 00:00:00 Test Item Value Reference Range Interpretation Comments CREATININE, URINE, CONC. (test 181.9 MG/DL code = 2) ALBUMIN, URINE, RANDOM (test code 226.7 MG/DL = 58210) CALC ALBUMIN/CREAT, RND (test 1246 MG/G code = 73580) CBC W/AUTO DIFF WITH PLATELETS [ADDED]2018-02-14 00:00:00 Test Item Value Reference Range Interpretation Comments WBC (test code = 1001) 7.0 K/UL RBC (test code = 1002) 4.14 M/UL HEMOGLOBIN (test code = 1003) 12.4 G/DL HEMATOCRIT (test code = 1004) 35.2 % MCV (test code = 1005) 85.0 fL MCH (test code = 1006) 30.0 PG MCHC (test code = 1007) 35.2 G/DL RDW (test code = 1038) 13.0 % NEUTROPHILS (test code = 1008) 62.0 % LYMPHOCYTES (test code = 1010) 27.0 % MONOCYTES (test code = 1011) 8.3 % EOSINOPHILS (test code = 1012) 2.1 % BASOPHILS (test code = 1013) 0.6 % PLATELET COUNT (test code = 1015) 278 K/UL CBC W/AUTO DIFF WITH PLATELETS [ADDED]2018-02-14 00:00:00 Test Item Value Reference Range Interpretation Comments WBC (test code = 1001) 7.0 K/UL RBC (test code = 1002) 4.14 M/UL HEMOGLOBIN (test code = 1003) 12.4 G/DL HEMATOCRIT (test code = 1004) 35.2 % MCV (test code = 1005) 85.0 fL MCH (test code = 1006) 30.0 PG MCHC (test code = 1007) 35.2 G/DL RDW (test code = 1038) 13.0 % NEUTROPHILS (test code = 1008) 62.0 % LYMPHOCYTES (test code = 1010) 27.0 % MONOCYTES (test code = 1011) 8.3 % EOSINOPHILS (test code = 1012) 2.1 % BASOPHILS (test code = 1013) 0.6 % PLATELET COUNT (test code = 1015) 278 K/UL HEMOGLOBIN A1c [ADDED]2018-02-14 00:00:00 Test Item Value Reference Range Interpretation Comments HEMOGLOBIN A1c (test code = 43485) 7.3 % HEMOGLOBIN A1c [ADDED]2018-02-14 00:00:00 Test Item Value Reference Range Interpretation Comments HEMOGLOBIN A1c (test code = 23776) 7.3 % LIPID PANEL [ADDED]2018-02-14 00:00:00 Test Item Value Reference Range Interpretation Comments CHOLESTEROL (test code = 2210) 261 MG/DL TRIGLYCERIDES (test code = 2232) 239 MG/DL HDL CHOLESTEROL (test code = 2220) 52 MG/DL CALC LDL CHOL (test code = 2237) 161 MG/DL RISK RATIO LDL/HDL (test code = 3.10 RATIO 2238) COMPREHENSIVE METABOLIC PANEL [ADDED]2018-02-14 00:00:00 Test Item Value Reference Range Interpretation Comments GLUCOSE (test code = 2217) 177 MG/DL BUN (test code = 2208) 20 MG/DL CREATININE (test code = 2214) 1.17 MG/DL eGFR AMER. (test code 55 ML/MIN/1.73 = 88376) eGFR NON- AMER. (test 48 ML/MIN/1.73 code = 16973) CALC BUN/CREAT (test code = 17 RATIO 2235) SODIUM (test code = 2231) 141 MEQ/L POTASSIUM (test code = 2228) 4.5 MEQ/L CHLORIDE (test code = 2215) 106 MEQ/L CARBON DIOXIDE (test code = 22 MEQ/L 2205) CALCIUM (test code = 2209) 9.3 MG/DL PROTEIN, TOTAL (test code = 7.3 G/DL 2228) ALBUMIN (test code = 2201) 4.2 G/DL CALC GLOBULIN (test code = 3.1 G/DL 2239) CALC A/G RATIO (test code = 1.4 RATIO 2233) BILIRUBIN, TOTAL (test code = <0.2 MG/DL 2206) ALKALINE PHOSPHATASE (test 80 U/L code = 220) AST (test code = 221) 16 U/L ALT (test code = 2219) 13 U/L ALBUMIN/CREATININE RATIO, RANDOM URINE [ADDED]2018-02-14 00:00:00 Test Item Value Reference Range Interpretation Comments CREATININE, URINE, CONC. (test 181.9 MG/DL code = 2072) ALBUMIN, URINE, RANDOM (test code 226.7 MG/DL = 75986) CALC ALBUMIN/CREAT, RND (test 1246 MG/G code = 97868) [employer] [id number] 00:00:00 Test Item Value Reference Range Interpretation Comments WEEMS (Sm) ANTIBODY (test code = <0.2 AI 23858) [employer] ANTIBODY (test code = 16460) 6.4 AI HEMOGLOBIN [id number] 00:00:00 Test Item Value Reference Range Interpretation Comments HEMOGLOBIN A1c (test code = 82193) 7.5 % HEMOGLOBIN [id number] 00:00:00 Test Item Value Reference Range Interpretation Comments HEMOGLOBIN A1c (test code = 60322) 7.5 % DNA DS ANTIBODY [id number] 00:00:00 Test Item Value Reference Range Interpretation Comments dsDNA ANTIBODY REFLEX (test code = NEGATIVE 62422) LIPID PANEL [ADDED]2017-07-31 00:00:00 Test Item Value Reference Range Interpretation Comments CHOLESTEROL (test code = 2210) 179 MG/DL TRIGLYCERIDES (test code = 2232) 193 MG/DL HDL CHOLESTEROL (test code = 2220) 56 MG/DL CALC LDL CHOL (test code = 2237) 84 MG/DL RISK RATIO LDL/HDL (test code = 1.51 RATIO 2238) DNA DS [id number] 00:00:00 Test Item Value Reference Range Interpretation Comments dsDNA ANTIBODY (test code = 4287) <1.0 IU/ML [employer] [id number] 00:00:00 Test Item Value Reference Range Interpretation Comments WEEMS (Sm) ANTIBODY (test code = <0.2 AI 87421) [employer] ANTIBODY (test code = 58437) 6.4 AI HEMOGLOBIN [id number] 00:00:00 Test Item Value Reference Range Interpretation Comments HEMOGLOBIN A1c (test code = 34077) 7.5 % HEMOGLOBIN [id number] 00:00:00 Test Item Value Reference Range Interpretation Comments HEMOGLOBIN A1c (test code = 91327) 7.5 % LIPID PANEL [ADDED]2017-07-31 00:00:00 Test Item Value Reference Range Interpretation Comments CHOLESTEROL (test code = 2210) 179 MG/DL TRIGLYCERIDES (test code = 2232) 193 MG/DL HDL CHOLESTEROL (test code = 2220) 56 MG/DL CALC LDL CHOL (test code = 2237) 84 MG/DL RISK RATIO LDL/HDL (test code = 1.51 RATIO 2238) DNA DS ANTIBODY [id number] 00:00:00 Test Item Value Reference Range Interpretation Comments dsDNA ANTIBODY REFLEX (test code = NEGATIVE 61331) DNA DS [id number] 00:00:00 Test Item Value Reference Range Interpretation Comments dsDNA ANTIBODY (test code = 4287) <1.0 IU/ML ARMEN TITER AND PATTERN [REFLEX]2017-07-18 00:00:00 Test Item Value Reference Range Interpretation Comments PATTERN (test code = 23473) SS-A ARMEN TITER (test code = 3550) 1:40 TITER METHOD (test code = 13190) (NOTE) ARMEN TITER AND PATTERN [REFLEX]2017-07-18 00:00:00 Test Item Value Reference Range Interpretation Comments PATTERN (test code = 40982) SS-A ARMEN TITER (test code = 3550) 1:40 TITER METHOD (test code = 90134) (NOTE) VITAMIN D, 25 [id number] 00:00:00 Test Item Value Reference Range Interpretation Comments VITAMIN D, 25 OH (test code = 4958) 24 NG/ML RHEUMATOID FACTOR, [id number] 00:00:00 Test Item Value Reference Range Interpretation Comments RHEUMATOID FACTOR, QUANT (test code 11 IU/ML = 3502) RHEUMATOID FACTOR, [id number] 00:00:00 Test Item Value Reference Range Interpretation Comments RHEUMATOID FACTOR, QUANT (test code 11 IU/ML = 3502) SEDIMENTATION [id number] 00:00:00 Test Item Value Reference Range Interpretation Comments SEDIMENTATION RATE (test code = 40 MM/HOUR 1017) C-REACTIVE [id number] 00:00:00 Test Item Value Reference Range Interpretation Comments C-REACTIVE PROTEIN (test code = 0.2 MG/DL 3513) ARMEN (ANTI-NUCLEAR AB) WITH REFLEX [id number] 00:00:00 Test Item Value Reference Range Interpretation Comments ANTI-NUCLEAR ANTIBODIES (test code = POSITIVE 3506) VITAMIN D, 25 [id number] 00:00:00 Test Item Value Reference Range Interpretation Comments VITAMIN D, 25 OH (test code = 4958) 24 NG/ML RHEUMATOID FACTOR, [id number] 00:00:00 Test Item Value Reference Range Interpretation Comments RHEUMATOID FACTOR, QUANT (test code 11 IU/ML = 3502) RHEUMATOID FACTOR, [id number] 00:00:00 Test Item Value Reference Range Interpretation Comments RHEUMATOID FACTOR, QUANT (test code 11 IU/ML = 3502) SEDIMENTATION [id number] 00:00:00 Test Item Value Reference Range Interpretation Comments SEDIMENTATION RATE (test code = 40 MM/HOUR 1017) C-REACTIVE [id number] 00:00:00 Test Item Value Reference Range Interpretation Comments C-REACTIVE PROTEIN (test code = 0.2 MG/DL 3513) ARMEN (ANTI-NUCLEAR AB) WITH REFLEX [id number] 00:00:00 Test Item Value Reference Range Interpretation Comments ANTI-NUCLEAR ANTIBODIES (test code = POSITIVE 3506) HEMOGLOBIN A1c [ADDED]2017-05-01 00:00:00 Test Item Value Reference Range Interpretation Comments HEMOGLOBIN A1c (test code = 38908) 8.1 % HEMOGLOBIN A1c [ADDED]2017-05-01 00:00:00 Test Item Value Reference Range Interpretation Comments HEMOGLOBIN A1c (test code = 30849) 8.1 % CBC W/AUTO DIFF WITH PLATELETS [ADDED]2017-05-01 00:00:00 Test Item Value Reference Range Interpretation Comments WBC (test code = 1001) 7.7 K/UL RBC (test code = 1002) 4.00 M/UL HEMOGLOBIN (test code = 1003) 11.7 G/DL HEMATOCRIT (test code = 1004) 34.7 % MCV (test code = 1005) 86.8 fL MCH (test code = 1006) 29.3 PG MCHC (test code = 1007) 33.7 G/DL RDW (test code = 1038) 12.7 % NEUTROPHILS (test code = 1008) 58.0 % LYMPHOCYTES (test code = 1010) 30.1 % MONOCYTES (test code = 1011) 10.1 % EOSINOPHILS (test code = 1012) 1.3 % BASOPHILS (test code = 1013) 0.5 % PLATELET COUNT (test code = 1015) 207 K/UL CBC W/AUTO DIFF WITH PLATELETS [ADDED]2017-05-01 00:00:00 Test Item Value Reference Range Interpretation Comments WBC (test code = 1001) 7.7 K/UL RBC (test code = 1002) 4.00 M/UL HEMOGLOBIN (test code = 1003) 11.7 G/DL HEMATOCRIT (test code = 1004) 34.7 % MCV (test code = 1005) 86.8 fL MCH (test code = 1006) 29.3 PG MCHC (test code = 1007) 33.7 G/DL RDW (test code = 1038) 12.7 % NEUTROPHILS (test code = 1008) 58.0 % LYMPHOCYTES (test code = 1010) 30.1 % MONOCYTES (test code = 1011) 10.1 % EOSINOPHILS (test code = 1012) 1.3 % BASOPHILS (test code = 1013) 0.5 % PLATELET COUNT (test code = 1015) 207 K/UL COMPREHENSIVE METABOLIC PANEL [ADDED]2017-05-01 00:00:00 Test Item Value Reference Range Interpretation Comments GLUCOSE (test code = 2217) 287 MG/DL BUN (test code = 2208) 33 MG/DL CREATININE (test code = 2214) 1.07 MG/DL eGFR AMER. (test code 62 ML/MIN/1.73 = 51509) eGFR NON- AMER. (test 53 ML/MIN/1.73 code = 68529) CALC BUN/CREAT (test code = 31 RATIO 2235) SODIUM (test code = 2231) 142 MEQ/L POTASSIUM (test code = 2228) 4.9 MEQ/L CHLORIDE (test code = 2215) 102 MEQ/L CARBON DIOXIDE (test code = 25 MEQ/L 2205) CALCIUM (test code = 2209) 9.3 MG/DL PROTEIN, TOTAL (test code = 7.4 G/DL 2228) ALBUMIN (test code = 2201) 4.1 G/DL CALC GLOBULIN (test code = 3.3 G/DL 2239) CALC A/G RATIO (test code = 1.2 RATIO 2233) BILIRUBIN, TOTAL (test code = 0.5 MG/DL 2206) ALKALINE PHOSPHATASE (test 90 U/L code = 2204) AST (test code = 2218) 20 U/L ALT (test code = 2219) 22 U/L LIPID PANEL [ADDED]2017-05-01 00:00:00 Test Item Value Reference Range Interpretation Comments CHOLESTEROL (test code = 2210) 163 MG/DL TRIGLYCERIDES (test code = 2232) 118 MG/DL HDL CHOLESTEROL (test code = 2220) 51 MG/DL CALC LDL CHOL (test code = 2237) 88 MG/DL RISK RATIO LDL/HDL (test code = 1.73 RATIO 2238) MICROALBUMIN/CREATININE, RANDOM AND RATIO [ADDED]2017-05-01 00:00:00 Test Item Value Reference Range Interpretation Comments CREATININE, URINE, CONC. (test 55.4 MG/DL code = 2) MICROALBUMIN, RANDOM (test code = 60.7 MG/DL 08764) CALC MICROALB/CREAT RND (test code 1096 MG/G = 28312) HEMOGLOBIN A1c [ADDED]2017-05-01 00:00:00 Test Item Value Reference Range Interpretation Comments HEMOGLOBIN A1c (test code = 91743) 8.1 % HEMOGLOBIN A1c [ADDED]2017-05-01 00:00:00 Test Item Value Reference Range Interpretation Comments HEMOGLOBIN A1c (test code = 91205) 8.1 % CBC W/AUTO DIFF WITH PLATELETS [ADDED]2017-05-01 00:00:00 Test Item Value Reference Range Interpretation Comments WBC (test code = 1001) 7.7 K/UL RBC (test code = 1002) 4.00 M/UL HEMOGLOBIN (test code = 1003) 11.7 G/DL HEMATOCRIT (test code = 1004) 34.7 % MCV (test code = 1005) 86.8 fL MCH (test code = 1006) 29.3 PG MCHC (test code = 1007) 33.7 G/DL RDW (test code = 1038) 12.7 % NEUTROPHILS (test code = 1008) 58.0 % LYMPHOCYTES (test code = 1010) 30.1 % MONOCYTES (test code = 1011) 10.1 % EOSINOPHILS (test code = 1012) 1.3 % BASOPHILS (test code = 1013) 0.5 % PLATELET COUNT (test code = 1015) 207 K/UL CBC W/AUTO DIFF WITH PLATELETS [ADDED]2017-05-01 00:00:00 Test Item Value Reference Range Interpretation Comments WBC (test code = 1001) 7.7 K/UL RBC (test code = 1002) 4.00 M/UL HEMOGLOBIN (test code = 1003) 11.7 G/DL HEMATOCRIT (test code = 1004) 34.7 % MCV (test code = 1005) 86.8 fL MCH (test code = 1006) 29.3 PG MCHC (test code = 1007) 33.7 G/DL RDW (test code = 1038) 12.7 % NEUTROPHILS (test code = 1008) 58.0 % LYMPHOCYTES (test code = 1010) 30.1 % MONOCYTES (test code = 1011) 10.1 % EOSINOPHILS (test code = 1012) 1.3 % BASOPHILS (test code = 1013) 0.5 % PLATELET COUNT (test code = 1015) 207 K/UL COMPREHENSIVE METABOLIC PANEL [ADDED]2017-05-01 00:00:00 Test Item Value Reference Range Interpretation Comments GLUCOSE (test code = 2217) 287 MG/DL BUN (test code = 2208) 33 MG/DL CREATININE (test code = 2214) 1.07 MG/DL eGFR AMER. (test code 62 ML/MIN/1.73 = 11264) eGFR NON- AMER. (test 53 ML/MIN/1.73 code = 12106) CALC BUN/CREAT (test code = 31 RATIO 2235) SODIUM (test code = 2231) 142 MEQ/L POTASSIUM (test code = 2228) 4.9 MEQ/L CHLORIDE (test code = 2215) 102 MEQ/L CARBON DIOXIDE (test code = 25 MEQ/L 2206) CALCIUM (test code = 2209) 9.3 MG/DL PROTEIN, TOTAL (test code = 7.4 G/DL 2228) ALBUMIN (test code = 2201) 4.1 G/DL CALC GLOBULIN (test code = 3.3 G/DL 2240) CALC A/G RATIO (test code = 1.2 RATIO 2234) BILIRUBIN, TOTAL (test code = 0.5 MG/DL 2206) ALKALINE PHOSPHATASE (test 90 U/L code = 2204) AST (test code = 2218) 20 U/L ALT (test code = 2219) 22 U/L LIPID PANEL [ADDED]2017-05-01 00:00:00 Test Item Value Reference Range Interpretation Comments CHOLESTEROL (test code = 2210) 163 MG/DL TRIGLYCERIDES (test code = 2232) 118 MG/DL HDL CHOLESTEROL (test code = 2220) 51 MG/DL CALC LDL CHOL (test code = 2237) 88 MG/DL RISK RATIO LDL/HDL (test code = 1.73 RATIO 2238) MICROALBUMIN/CREATININE, RANDOM AND RATIO [ADDED]2017-05-01 00:00:00 Test Item Value Reference Range Interpretation Comments CREATININE, URINE, CONC. (test 55.4 MG/DL code = 2072) MICROALBUMIN, RANDOM (test code = 60.7 MG/DL 70667) CALC MICROALB/CREAT RND (test code 1096 MG/G = 66813) [id number] 00:00:00 Test Item Value Reference Range Interpretation Comments TSH (test code = 2821) 4.260 UIU/ML [id number] 00:00:00 Test Item Value Reference Range Interpretation Comments TSH (test code = 2821) 4.260 UIU/ML LIPID [id number] 00:00:00 Test Item Value Reference Range Interpretation Comments CHOLESTEROL (test code = 2210) 152 MG/DL TRIGLYCERIDES (test code = 2232) 149 MG/DL HDL CHOLESTEROL (test code = 2220) 56 MG/DL CALC LDL CHOL (test code = 2237) 66 MG/DL RISK RATIO LDL/HDL (test code = 1.18 RATIO 2238) COMPREHENSIVE METABOLIC [id number] 00:00:00 Test Item Value Reference Range Interpretation Comments GLUCOSE (test code = 2217) 173 MG/DL BUN (test code = 2208) 22 MG/DL CREATININE (test code = 2214) 1.01 MG/DL eGFR AMER. (test code 66 ML/MIN/1.73 = 40448) eGFR NON- AMER. (test 57 ML/MIN/1.73 code = 35639) CALC BUN/CREAT (test code = 22 RATIO 2235) SODIUM (test code = 2231) 140 MEQ/L POTASSIUM (test code = 2228) 4.9 MEQ/L CHLORIDE (test code = 2215) 103 MEQ/L CARBON DIOXIDE (test code = 23 MEQ/L 220) CALCIUM (test code = 2209) 9.3 MG/DL PROTEIN, TOTAL (test code = 7.0 G/DL 2228) ALBUMIN (test code = 2201) 3.9 G/DL CALC GLOBULIN (test code = 3.1 G/DL 224) CALC A/G RATIO (test code = 1.3 RATIO 2233) BILIRUBIN, TOTAL (test code = 0.4 MG/DL 2206) ALKALINE PHOSPHATASE (test 89 U/L code = 2204) AST (test code = 2218) 16 U/L ALT (test code = 2219) 13 U/L CBC W/AUTO [id number] 00:00:00 Test Item Value Reference Range Interpretation Comments WBC (test code = 1001) 7.3 K/UL RBC (test code = 1002) 4.09 M/UL HEMOGLOBIN (test code = 1003) 12.3 G/DL HEMATOCRIT (test code = 1004) 35.8 % MCV (test code = 1005) 87.5 fL MCH (test code = 1006) 30.1 PG MCHC (test code = 1007) 34.4 G/DL RDW (test code = 1038) 13.0 % NEUTROPHILS (test code = 1008) 50.6 % LYMPHOCYTES (test code = 1010) 37.9 % MONOCYTES (test code = 1011) 7.6 % EOSINOPHILS (test code = 1012) 3.5 % BASOPHILS (test code = 1013) 0.4 % PLATELET COUNT (test code = 1015) 266 K/UL CBC W/AUTO [id number] 00:00:00 Test Item Value Reference Range Interpretation Comments WBC (test code = 1001) 7.3 K/UL RBC (test code = 1002) 4.09 M/UL HEMOGLOBIN (test code = 1003) 12.3 G/DL HEMATOCRIT (test code = 1004) 35.8 % MCV (test code = 1005) 87.5 fL MCH (test code = 1006) 30.1 PG MCHC (test code = 1007) 34.4 G/DL RDW (test code = 1038) 13.0 % NEUTROPHILS (test code = 1008) 50.6 % LYMPHOCYTES (test code = 1010) 37.9 % MONOCYTES (test code = 1011) 7.6 % EOSINOPHILS (test code = 1012) 3.5 % BASOPHILS (test code = 1013) 0.4 % PLATELET COUNT (test code = 1015) 266 K/UL HEMOGLOBIN [id number] 00:00:00 Test Item Value Reference Range Interpretation Comments HEMOGLOBIN A1c (test code = 65729) 9.4 % HEMOGLOBIN [id number] 00:00:00 Test Item Value Reference Range Interpretation Comments HEMOGLOBIN A1c (test code = 46154) 9.4 % URIC [id number] 00:00:00 Test Item Value Reference Range Interpretation Comments URIC ACID (test code = 2233) 4.7 MG/DL VITAMIN D, 25 [id number] 00:00:00 Test Item Value Reference Range Interpretation Comments VITAMIN D, 25 OH (test code = 4958) 16 NG/ML [id number] 00:00:00 Test Item Value Reference Range Interpretation Comments TSH (test code = 2821) 4.260 UIU/ML [id number] 00:00:00 Test Item Value Reference Range Interpretation Comments TSH (test code = 2821) 4.260 UIU/ML LIPID [id number] 00:00:00 Test Item Value Reference Range Interpretation Comments CHOLESTEROL (test code = 2210) 152 MG/DL TRIGLYCERIDES (test code = 2232) 149 MG/DL HDL CHOLESTEROL (test code = 2220) 56 MG/DL CALC LDL CHOL (test code = 2237) 66 MG/DL RISK RATIO LDL/HDL (test code = 1.18 RATIO 2238) COMPREHENSIVE METABOLIC [id number] 00:00:00 Test Item Value Reference Range Interpretation Comments GLUCOSE (test code = 2217) 173 MG/DL BUN (test code = 2208) 22 MG/DL CREATININE (test code = 2214) 1.01 MG/DL eGFR AMER. (test code 66 ML/MIN/1.73 = 91856) eGFR NON- AMER. (test 57 ML/MIN/1.73 code = 16237) CALC BUN/CREAT (test code = 22 RATIO 2235) SODIUM (test code = 2231) 140 MEQ/L POTASSIUM (test code = 2228) 4.9 MEQ/L CHLORIDE (test code = 2215) 103 MEQ/L CARBON DIOXIDE (test code = 23 MEQ/L 2205) CALCIUM (test code = 2209) 9.3 MG/DL PROTEIN, TOTAL (test code = 7.0 G/DL 2228) ALBUMIN (test code = 2201) 3.9 G/DL CALC GLOBULIN (test code = 3.1 G/DL 224) CALC A/G RATIO (test code = 1.3 RATIO 2233) BILIRUBIN, TOTAL (test code = 0.4 MG/DL 2206) ALKALINE PHOSPHATASE (test 89 U/L code = 2204) AST (test code = 2218) 16 U/L ALT (test code = 2219) 13 U/L CBC W/AUTO [id number] 00:00:00 Test Item Value Reference Range Interpretation Comments WBC (test code = 1001) 7.3 K/UL RBC (test code = 1002) 4.09 M/UL HEMOGLOBIN (test code = 1003) 12.3 G/DL HEMATOCRIT (test code = 1004) 35.8 % MCV (test code = 1005) 87.5 fL MCH (test code = 1006) 30.1 PG MCHC (test code = 1007) 34.4 G/DL RDW (test code = 1038) 13.0 % NEUTROPHILS (test code = 1008) 50.6 % LYMPHOCYTES (test code = 1010) 37.9 % MONOCYTES (test code = 1011) 7.6 % EOSINOPHILS (test code = 1012) 3.5 % BASOPHILS (test code = 1013) 0.4 % PLATELET COUNT (test code = 1015) 266 K/UL CBC W/AUTO [id number] 00:00:00 Test Item Value Reference Range Interpretation Comments WBC (test code = 1001) 7.3 K/UL RBC (test code = 1002) 4.09 M/UL HEMOGLOBIN (test code = 1003) 12.3 G/DL HEMATOCRIT (test code = 1004) 35.8 % MCV (test code = 1005) 87.5 fL MCH (test code = 1006) 30.1 PG MCHC (test code = 1007) 34.4 G/DL RDW (test code = 1038) 13.0 % NEUTROPHILS (test code = 1008) 50.6 % LYMPHOCYTES (test code = 1010) 37.9 % MONOCYTES (test code = 1011) 7.6 % EOSINOPHILS (test code = 1012) 3.5 % BASOPHILS (test code = 1013) 0.4 % PLATELET COUNT (test code = 1015) 266 K/UL HEMOGLOBIN [id number] 00:00:00 Test Item Value Reference Range Interpretation Comments HEMOGLOBIN A1c (test code = 00369) 9.4 % HEMOGLOBIN [id number] 00:00:00 Test Item Value Reference Range Interpretation Comments HEMOGLOBIN A1c (test code = 10535) 9.4 % URIC [id number] 00:00:00 Test Item Value Reference Range Interpretation Comments URIC ACID (test code = 2233) 4.7 MG/DL VITAMIN D, 25 [id number] 00:00:00 Test Item Value Reference Range Interpretation Comments VITAMIN D, 25 OH (test code = 4958) 16 NG/ML COMPREHENSIVE METABOLIC [id number] 00:00:00 Test Item Value Reference Range Interpretation Comments GLUCOSE (test code = 2217) 74 MG/DL BUN (test code = 2208) 34 MG/DL CREATININE (test code = 2214) 1.11 MG/DL eGFR AMER. (test code 60 ML/MIN/1.73 = 66777) eGFR NON- AMER. (test 51 ML/MIN/1.73 code = 85986) CALC BUN/CREAT (test code = 31 RATIO 2235) SODIUM (test code = 2231) 142 MEQ/L POTASSIUM (test code = 2228) 4.6 MEQ/L CHLORIDE (test code = 2215) 105 MEQ/L CARBON DIOXIDE (test code = 21 MEQ/L 2205) CALCIUM (test code = 2209) 9.3 MG/DL PROTEIN, TOTAL (test code = 7.6 G/DL 2228) ALBUMIN (test code = 2201) 4.1 G/DL CALC GLOBULIN (test code = 3.5 G/DL 2239) CALC A/G RATIO (test code = 1.2 RATIO 2233) BILIRUBIN, TOTAL (test code = 0.3 MG/DL 2206) ALKALINE PHOSPHATASE (test 98 U/L code = 2204) AST (test code = 2218) 18 U/L ALT (test code = 2219) 13 U/L LIPID [id number] 00:00:00 Test Item Value Reference Range Interpretation Comments CHOLESTEROL (test code = 2210) 220 MG/DL TRIGLYCERIDES (test code = 2232) 136 MG/DL HDL CHOLESTEROL (test code = 2220) 57 MG/DL CALC LDL CHOL (test code = 2237) 136 MG/DL RISK RATIO LDL/HDL (test code = 2.38 RATIO 2238) CBC W/AUTO [id number] 00:00:00 Test Item Value Reference Range Interpretation Comments WBC (test code = 1001) 9.1 K/UL RBC (test code = 1002) 4.45 M/UL HEMOGLOBIN (test code = 1003) 13.2 G/DL HEMATOCRIT (test code = 1004) 39.4 % MCV (test code = 1005) 88.5 fL MCH (test code = 1006) 29.7 PG MCHC (test code = 1007) 33.5 G/DL RDW (test code = 1038) 12.8 % NEUTROPHILS (test code = 1008) 63.5 % LYMPHOCYTES (test code = 1010) 28.0 % MONOCYTES (test code = 1011) 6.6 % EOSINOPHILS (test code = 1012) 1.4 % BASOPHILS (test code = 1013) 0.5 % PLATELET COUNT (test code = 1015) 294 K/UL CBC W/AUTO [id number] 00:00:00 Test Item Value Reference Range Interpretation Comments WBC (test code = 1001) 9.1 K/UL RBC (test code = 1002) 4.45 M/UL HEMOGLOBIN (test code = 1003) 13.2 G/DL HEMATOCRIT (test code = 1004) 39.4 % MCV (test code = 1005) 88.5 fL MCH (test code = 1006) 29.7 PG MCHC (test code = 1007) 33.5 G/DL RDW (test code = 1038) 12.8 % NEUTROPHILS (test code = 1008) 63.5 % LYMPHOCYTES (test code = 1010) 28.0 % MONOCYTES (test code = 1011) 6.6 % EOSINOPHILS (test code = 1012) 1.4 % BASOPHILS (test code = 1013) 0.5 % PLATELET COUNT (test code = 1015) 294 K/UL HEMOGLOBIN [id number] 00:00:00 Test Item Value Reference Range Interpretation Comments HEMOGLOBIN A1c (test code = 52264) 6.5 % HEMOGLOBIN [id number] 00:00:00 Test Item Value Reference Range Interpretation Comments HEMOGLOBIN A1c (test code = 29898) 6.5 % THYROID II PROFILE (T3U, T4, T7, TSH)[id number] 00:00:00 Test Item Value Reference Range Interpretation Comments T3 UPTAKE (test code = 2817) 30.8 % T4 (THYROXINE) (test code = 2819) 5.3 UG/DL CALCULATED T7 (FTI) (test code = 1.63 2820) TSH (test code = 2821) 3.1 UIU/ML COMPREHENSIVE METABOLIC [id number] 00:00:00 Test Item Value Reference Range Interpretation Comments GLUCOSE (test code = 2217) 74 MG/DL BUN (test code = 2208) 34 MG/DL CREATININE (test code = 2214) 1.11 MG/DL eGFR AMER. (test code 60 ML/MIN/1.73 = 02610) eGFR NON- AMER. (test 51 ML/MIN/1.73 code = 99887) CALC BUN/CREAT (test code = 31 RATIO 2235) SODIUM (test code = 2231) 142 MEQ/L POTASSIUM (test code = 2228) 4.6 MEQ/L CHLORIDE (test code = 2215) 105 MEQ/L CARBON DIOXIDE (test code = 21 MEQ/L 2205) CALCIUM (test code = 2209) 9.3 MG/DL PROTEIN, TOTAL (test code = 7.6 G/DL 2228) ALBUMIN (test code = 2201) 4.1 G/DL CALC GLOBULIN (test code = 3.5 G/DL 2239) CALC A/G RATIO (test code = 1.2 RATIO 2234) BILIRUBIN, TOTAL (test code = 0.3 MG/DL 2206) ALKALINE PHOSPHATASE (test 98 U/L code = 2204) AST (test code = 2218) 18 U/L ALT (test code = 2219) 13 U/L LIPID [id number] 00:00:00 Test Item Value Reference Range Interpretation Comments CHOLESTEROL (test code = 2210) 220 MG/DL TRIGLYCERIDES (test code = 2232) 136 MG/DL HDL CHOLESTEROL (test code = 2220) 57 MG/DL CALC LDL CHOL (test code = 2237) 136 MG/DL RISK RATIO LDL/HDL (test code = 2.38 RATIO 2238) CBC W/AUTO [id number] 00:00:00 Test Item Value Reference Range Interpretation Comments WBC (test code = 1001) 9.1 K/UL RBC (test code = 1002) 4.45 M/UL HEMOGLOBIN (test code = 1003) 13.2 G/DL HEMATOCRIT (test code = 1004) 39.4 % MCV (test code = 1005) 88.5 fL MCH (test code = 1006) 29.7 PG MCHC (test code = 1007) 33.5 G/DL RDW (test code = 1038) 12.8 % NEUTROPHILS (test code = 1008) 63.5 % LYMPHOCYTES (test code = 1010) 28.0 % MONOCYTES (test code = 1011) 6.6 % EOSINOPHILS (test code = 1012) 1.4 % BASOPHILS (test code = 1013) 0.5 % PLATELET COUNT (test code = 1015) 294 K/UL CBC W/AUTO [id number] 00:00:00 Test Item Value Reference Range Interpretation Comments WBC (test code = 1001) 9.1 K/UL RBC (test code = 1002) 4.45 M/UL HEMOGLOBIN (test code = 1003) 13.2 G/DL HEMATOCRIT (test code = 1004) 39.4 % MCV (test code = 1005) 88.5 fL MCH (test code = 1006) 29.7 PG MCHC (test code = 1007) 33.5 G/DL RDW (test code = 1038) 12.8 % NEUTROPHILS (test code = 1008) 63.5 % LYMPHOCYTES (test code = 1010) 28.0 % MONOCYTES (test code = 1011) 6.6 % EOSINOPHILS (test code = 1012) 1.4 % BASOPHILS (test code = 1013) 0.5 % PLATELET COUNT (test code = 1015) 294 K/UL HEMOGLOBIN [id number] 00:00:00 Test Item Value Reference Range Interpretation Comments HEMOGLOBIN A1c (test code = 53454) 6.5 % HEMOGLOBIN [id number] 00:00:00 Test Item Value Reference Range Interpretation Comments HEMOGLOBIN A1c (test code = 91635) 6.5 % THYROID II PROFILE (T3U, T4, T7, TSH)[id number] 00:00:00 Test Item Value Reference Range Interpretation Comments T3 UPTAKE (test code = 2817) 30.8 % T4 (THYROXINE) (test code = 2819) 5.3 UG/DL CALCULATED T7 (FTI) (test code = 1.63 2820) TSH (test code = 2821) 3.1 UIU/ML
[2022-01-28] MEDS ORDERED: NA CHLORIDE 0.9% 500 ML ONE (13:54)
[2022-01-28] MEDS ORDERED: DICYCLOMINE HCL 20 MG/2 ML AMP IM ONE (13:54)
[2022-01-28] MEDS ORDERED: ONDANSETRON 4 MG/2 ML VIAL ONE (13:54)
[2022-01-28 14:25] LABS: Absolute Lymphocytes (CBC) 2.4 K/uL (0.7-4.9); Hematocrit 37.6 % (36.0-45.0); Lymphocytes % 21.4 % (15.3-44.8); MCV 91.8 fL (80-100); MPV 10.3 fL (7.6-11.3)
[2022-01-28 14:35] LABS: Albumin 3.2 g/dL (3.4-5.0); Bilirubin Direct 0.2 mg/dL (0-0.2); Bilirubin Total 0.6 mg/dL (0.2-1.0); Potassium 4.5 mmol/L (3.5-5.1); Protein, Total 7.3 g/dL (6.4-8.2); Troponin High Sensitivity 5.2 pg/mL (<58.9)
[2022-01-28 15:07] LABS: Protime INR 1.13
--- NOTE | 2022-01-28 15:20 | RAD REPORT ---
EXAM DESCRIPTION: CTAbdomen Pelvis Wo Contrast - 01/28/2022 2:55 pm CLINICAL HISTORY: lower abdomen pain COMPARISON: No comparisons TECHNIQUE: CT of the abdomen and pelvis was performed. All CT scans are performed using dose optimization technique as appropriate and may include automated exposure control or mA/KV adjustment according to patient size. FINDINGS: Lower chest: Multi-vessel coronary artery disease. Liver: No acute abnormality or suspicious lesions. Biliary: No biliary ductal dilatation. Stomach: No significant focal abnormality. Duodenum: No significant focal abnormality. Pancreas: No significant abnormality. Spleen: No significant abnormality. Adrenal: No suspicious lesions. Kidney/ureter: No hydronephrosis. No renal calculi. Retroperitoneum: No retroperitoneal adenopathy. Vascular: No aneurysm. Atherosclerosis. Bowel: Moderate thickening with pericolonic stranding at the mid transverse colon through proximal si gmoid.. Peritoneum: No ascites or free air. Bladder: Grossly unremarkable. Reproductive: No adnexal masses. Bones: No acute fracture. Other: n/a IMPRESSION: Colitis extending from the mid transverse to proximal sigmoid colon with differential to include infectious, inflammatory, as well as ischemic etiologies.
[2022-01-28] MEDS ORDERED: METRONIDAZOLE 500mg IVPB 500 MG/100 ML BAG IV ONE (15:59)
[2022-01-28] MEDS ORDERED: CIPROFLOXACIN 400mg IV 400 MG/200 ML BAG IV ONE (15:59)
--- NOTE | 2022-01-28 16:47 | EDPHYS ---
Physician Documentation [facility] Name: Kinga Singleton Age: 71 yrs Sex: Female : 1950 Arrival Date: 01/28/2022 Time: 12:56 Bed 6 Private MD: ED Physician Domingo Kohli HPI: 01/28 13:35 This 71 yrs old Female presents to ER via Wheelchair with complaints of cp Diarrhea, Bloody Stools. 13:35 The patient presents to the emergency department with diarrhea, that is continuous, cp abdominal pain, of the right lower quadrant and left lower quadrant, described as crampy. Onset: The symptoms/episode began/occurred 2 day(s) ago. Possible causes: unknown. Associated signs and symptoms: Pertinent positives: red blood in stool, Pertinent negatives: constipation, fever. 13:35 Severity of symptoms: in the emergency department the symptoms are unchanged despite cp EMS interventions. Historical: - Allergies: 13:07 No Known Allergies; hb - PMHx: 13:07 Diabetes - IDDM; Hypertensive disorder; hb - Immunization history:: Adult Immunizations up to date. - Social history:: Smoking status: Patient denies any tobacco usage or history of. ROS: 13:40 Constitutional: Negative for body aches, chills, fever, poor PO intake. cp 13:40 Eyes: Negative for injury, pain, redness, and discharge. cp 13:40 ENT: Negative for drainage from ear(s), ear pain. 13:40 Cardiovascular: Negative for chest pain, edema, palpitations. 13:40 Respiratory: Negative for cough, shortness of breath, wheezing. cp 13:40 Abdomen/GI: Positive for diarrhea, abdominal cramps, rectal bleeding, Negative for vomiting. 13:40 Back: Negative for pain at rest, pain with movement. 13:40 : Negative for urinary symptoms. 13:40 Neuro: Negative for altered mental status, dizziness, headache, syncope, weakness. 13:40 All other systems are negative. Exam: 13:45 Constitutional: The patient appears in no acute distress, alert, awake, cp non-diaphoretic, non-toxic, well developed, well nourished. 13:45 Head/Face: Normocephalic, atraumatic. cp 13:45 Eyes: Periorbital structures: appear normal, Conjunctiva: normal, no exudate, no injection, Sclera: no appreciated abnormality, Lids and lashes: appear normal, bilaterally. 13:45 ENT: External ear(s): are unremarkable, Nose: is normal, Mouth: Lips: moist, Oral mucosa: pink and intact, moist, Posterior pharynx: Airway: no evidence of obstruction, patent, swelling, is not appreciated, erythema, is not appreciated, exudate, is not appreciated. 13:45 Chest/axilla: Inspection: normal, Palpation: is normal, no crepitus, no tenderness. 13:45 Cardiovascular: Rate: normal, Rhythm: regular, Edema: is not appreciated, JVD: is not appreciated. 13:45 Respiratory: the patient does not display signs of respiratory distress, Respirations: normal, no use of accessory muscles, no retractions, labored breathing, is not present, Breath sounds: are clear throughout, no decreased breath sounds, no stridor, no wheezing. 13:45 Abdomen/GI: Inspection: abdomen appears normal, Bowel sounds: active, all quadrants, Palpation: soft, in all quadrants, mild abdominal tenderness, in the right lower quadrant and left lower quadrant, rebound tenderness, is not appreciated, involuntary guarding, is not appreciated, Rectal exam: Stool: guaiac positive, maroon. 13:45 Back: pain, is absent, ROM is normal. 13:45 Skin: cellulitis, is not appreciated, no rash present. 13:45 Neuro: Orientation: to person, place \T\ time. Mentation: is normal, Motor: moves all fours, Sensation: is normal. 13:47 ECG was reviewed by the Attending Physician. cp Vital Signs: 13:05 BP 100 / 63; Pulse 114; Resp 18; Temp 99; Pulse Ox 98% on R/A; Weight 63.5 kg; Height 5 hb ft. (152.40 cm); Pain 8/10; 14:31 BP 118 / 69 Supine; Pulse 92; kr3 14:33 BP 103 / 64 Sitting; Pulse 96; kr3 14:35 BP 84 / 60 Standing; Pulse 100; kr3 15:33 BP 116 / 67; Pulse 79; Pulse Ox 98% ; ll1 16:30 BP 118 / 63; Pulse 86; Resp 18; Pulse Ox 97% on R/A; kr3 17:32 BP 103 / 68; Pulse 89; Resp 18; Pulse Ox 95% on R/A; kr3 18:49 BP 132 / 64; Pulse 74; Resp 18; Pulse Ox 96% on R/A; kr3 19:20 BP 119 / 58; Pulse 80; Resp 18; Pulse Ox 98% on R/A; tw5 13:05 Body Mass Index 27.34 (63.50 kg, 152.40 cm) hb MDM: 13:13 Patient medically screened. cp 14:00 Differential diagnosis: gastritis, diverticulitis, gastroenteritis, colitis. cp 16:45 Data reviewed: vital signs, nurses notes, lab test result(s), EKG, radiologic studies, cp CT scan, I have discussed the patient's presentation/case with the attending Emergency Department Physician; and as a result, I will admit patient. 17:15 Physician consultation: Elias Huynh was called at 17:15, was contacted at 17:15, cp regarding admission, to the telemetry unit. patient's condition. 01/28 13:32 Order name: Basic Metabolic Panel; Complete Time: 14:50 01/28 14:50 Interpretation: Normal except: NA 135; GLUC 306; BUN 27; CRE 1.64; GFR 33. 01/28 13:32 Order name: CBC with Diff; Complete Time: 14:50 01/28 16:38 Interpretation: Normal except: WBC 11.10. 01/28 13:32 Order name: LFT's; Complete Time: 14:50 01/28 13:32 Order name: Magnesium; Complete Time: 14:50 01/28 13:32 Order name: PT-INR; Complete Time: 15:22 cp 01/28 13:32 Order name: Troponin HS; Complete Time: 14:50 cp 01/28 13:32 Order name: Ptt, Activated; Complete Time: 15:22 cp 01/28 13:32 Order name: Urine Microscopic Only 01/28 13:32 Order name: Ova And Parasites 01/28 13:32 Order name: Rotavirus Antigen 01/28 13:32 Order name: Stool Culture 01/28 13:32 Order name: CDIFF 01/28 15:23 Order name: Lactate; Complete Time: 16:37 01/28 15:23 Order name: Procalcitonin 01/28 14:41 Order name: Abdomen ; Complete Time: 15:22 EDMS 01/28 15:23 Order name: Blood Culture Adult (2) cp 01/28 17:43 Order name: SARS RAPID eb 01/28 18:12 Order name: SARS-COV-2 Antigen Rapid EDMS 01/28 22:24 Order name: Glucose, Ancillary Testing EDNC 01/28 22:37 Order name: Hemoglobin EDMS 01/28 22:37 Order name: Hematocrit EDMS 01/28 23:00 Order name: Urine Dipstick-Ancillary EDMS 01/29 03:58 Order name: CBC with Automated Diff EDMS 01/29 04:00 Order name: Protime (+INR) EDMS 01/29 09:53 Order name: Glucose, Ancillary Testing EDMS 01/28 13:32 Order name: Orthostatics; Complete Time: 14:38 cp 01/28 13:32 Order name: EKG; Complete Time: 13:34 cp 01/28 13:32 Order name: Cardiac monitoring; Complete Time: 13:34 cp 01/28 13:32 Order name: EKG - Nurse/Tech; Complete Time: 13:34 cp 01/28 13:32 Order name: IV Saline Lock; Complete Time: 14:02 cp 01/28 13:32 Order name: Labs collected and sent; Complete Time: 14:02 cp 01/28 13:32 Order name: O2 Per Protocol; Complete Time: 13:34 cp 01/28 13:32 Order name: O2 Sat Monitoring; Complete Time: 13:34 cp 01/28 13:32 Order name: Urine Dipstick-Ancillary (obtain specimen); Complete Time: 05:38 cp EC:47 Rate is 101 beats/min. Rhythm is regular. OR interval is normal. QRS interval is cp normal. QT interval is normal. T waves are Inverted in lead aVR. Interpreted by me. Reviewed by me. Administered Medications: 13:40 Drug: Zofran (Ondansetron) 4 mg Route: IVP; Site: right antecubital; kr3 16:38 Follow up: Response: No adverse reaction ll1 13:50 Drug: Bentyl (dicyclomine) 20 mg Route: IM; Site: right vastus lateralis; kr3 16:38 Follow up: Response: No adverse reaction; Pain is decreased; RASS: Alert and Calm (0) ll1 14:01 Drug: NS 0.9% 500 ml Route: IV; Rate: 500 ml/hr; Site: right antecubital; kr3 17:38 Follow up: Response: No adverse reaction; IV Status: Completed infusion; IV Intake: kr3 500ml 17:44 Drug: NS 0.9% 1000 ml Route: IV; Rate: 75 ml/hr; Site: left hand; kr3 18:48 Follow up: IV Status: Completed infusion; IV Intake: 1000ml kr3 17:44 Drug: NS 0.9% 500 ml Route: IV; Rate: bolus; Site: left hand; kr3 18:47 Follow up: Response: No adverse reaction; IV Status: Completed infusion; IV Intake: kr3 500ml 18:47 Drug: metroNIDAZOLE 500 mg Volume: 100 ml; Route: IVPB; Infused Over: 30 mins; Site: kr3 right antecubital; 19:07 Follow up: Response: No adverse reaction; IV Status: Completed infusion; IV Intake: ll1 100ml 19:20 Drug: Cipro (ciprofloxacin) 400 mg Volume: 200 ml; Route: IVPB; Infused Over: 60 mins; tw5 Site: right antecubital; 22:21 Follow up: Response: No adverse reaction; IV Status: Completed infusion tw5 Disposition: 01/29 17:26 Co-signature as Attending Physician, Domingo Kohli MD. rn Disposition Summary: 01/28/22 16:47 Hospitalization Ordered Hospitalization Status: Inpatient Admission cp Provider: Elias Huynh cp Condition: Stable cp Problem: new cp Symptoms: have improved cp Bed/Room Type: Standard cp Location: Telemetry/MedSurg (Inpatient)(01/29/22 08:14) eb Room Assignment: [facility](01/29/22 08:14) eb Diagnosis - Left sided colitis with rectal bleeding cp Forms: - Medication Reconciliation Form cp - SBAR form cp Signatures: Dispatcher [employer] Casandra Escalante RN RN mw Nieto, Roman, MD MD rn Page, Corey, PA PA cp Loan Shore RN RN hb Botello, Elizabeth eb Wood, Tiffany tw5 Bonita Rivera RN RN kr3 Peter Madden RN ll1 Corrections: (The following items were deleted from the chart) 01/28 14:41 13:37 Abdomen Pelvis W Con+CT.RAD.BRZ ordered. EDMS EDMS 16:47 Telemetry/MedSurg (Inpatient) cp mw 16:47 cp mw 01/29 08:01/28 19:21 BR ER [facility] eb 01/29 08:01/28 19:21 ERHOLD- mw eb
--- NOTE | 2022-01-28 16:47 | ER ---
Nurse's Notes [facility] Name: Kinga Singleton Age: 71 yrs Sex: Female : 1950 Arrival Date: 01/28/2022 Time: 12:56 Bed 6 Private MD: Diagnosis: Left sided colitis with rectal bleeding Presentation: 01/28 13:05 Chief complaint: N/V/D and left sided abdominal pain x 2 days, bright red blood in hb stool today. Coronavirus screen: At this time, the client does not indicate any symptoms associated with coronavirus-19. Ebola Screen: No symptoms or risks identified at this time. Risk Assessment: Do you want to hurt yourself or someone else? Patient reports no desire to harm self or others. Onset of symptoms was January 27, 2022. 13:05 Method Of Arrival: Wheelchair hb 13:05 Acuity: JITENDRA 3 hb 16:39 Initial Sepsis Screen: Does the patient meet any 2 criteria? HR > 90 bpm. No. Patient's ll1 initial sepsis screen is negative. Does the patient have a suspected source of infection? Yes: Acute abdominal pain. Historical: - Allergies: 13:07 No Known Allergies; hb - PMHx: 13:07 Diabetes - IDDM; Hypertensive disorder; hb - Immunization history:: Adult Immunizations up to date. - Social history:: Smoking status: Patient denies any tobacco usage or history of. Screenin:42 Abuse screen: Denies threats or abuse. Nutritional screening: No deficits noted. kr3 Tuberculosis screening: No symptoms or risk factors identified. Fall Risk IV access (20 points). Gait- Weak (10 pts.). Total Jernigan Fall Scale indicates Low Risk Score (25-44 pts). Fall prevention measures have been instituted. Side Rails Up X 2 Placed close to Nursing Station Frequent Obs/Assesments occuring Family Present and informed to notify staff if they need to leave bedside As available Patient and Family Educated on Fall Prevention Program and strategies. Assessment: 13:20 General: Appears uncomfortable, Behavior is calm, cooperative, appropriate for age. kr3 Pain: Complains of pain in abdomen Quality of pain is described as aching, crampy. Neuro: No deficits noted. Cardiovascular: No deficits noted. Respiratory: No deficits noted. GI: Reports lower abdominal pain, upper abdominal pain, cramping, diarrhea, rectal bleeding. 14:15 Reassessment: No changes from previously documented assessment. Patient and/or family ll1 updated on plan of care and expected duration. Pain level reassessed. 15:15 Reassessment: No changes from previously documented assessment. Patient and/or family ll1 updated on plan of care and expected duration. Pain level reassessed. 16:15 Reassessment: No changes from previously documented assessment. Patient and/or family ll1 updated on plan of care and expected duration. Pain level reassessed. 16:40 Reassessment: contacted lab to draw second set of blood cultures. kr3 17:29 Reassessment: antibiotics pending due to second set of blood cultures being obtained. kr3 lab previously notified. 17:40 Reassessment: called lab a second time to collect 2nd set of blood cultures, stated kr3 that they would try and find someone to send. 18:40 Reassessment: Spoke with Porter Padilla, started antibiotics before 2nd set of blood kr3 cultures collected. 19:20 Reassessment: Patient is alert, oriented x 3, equal unlabored respirations, skin tw5 warm/dry/pink. Vital Signs: 13:05 BP 100 / 63; Pulse 114; Resp 18; Temp 99; Pulse Ox 98% on R/A; Weight 63.5 kg; Height 5 hb ft. (152.40 cm); Pain 8/10; 14:31 BP 118 / 69 Supine; Pulse 92; kr3 14:33 BP 103 / 64 Sitting; Pulse 96; kr3 14:35 BP 84 / 60 Standing; Pulse 100; kr3 15:33 BP 116 / 67; Pulse 79; Pulse Ox 98% ; ll1 16:30 BP 118 / 63; Pulse 86; Resp 18; Pulse Ox 97% on R/A; kr3 17:32 BP 103 / 68; Pulse 89; Resp 18; Pulse Ox 95% on R/A; kr3 18:49 BP 132 / 64; Pulse 74; Resp 18; Pulse Ox 96% on R/A; kr3 19:20 BP 119 / 58; Pulse 80; Resp 18; Pulse Ox 98% on R/A; tw5 13:05 Body Mass Index 27.34 (63.50 kg, 152.40 cm) ED Course: 12:56 Patient arrived in ED. as 12:58 Murray Padilla PA is PHCP. cp 12:58 Domingo Kohli MD is Attending Physician. cp 13:07 Triage completed. hb 13:07 Arm band placed on. hb 13:16 Patient placed in an exam room, on a stretcher. ll1 13:22 Bonita Rivera, RN is Primary Nurse. kr3 14:03 Inserted saline lock: 20 gauge in right antecubital area, using aseptic technique. kr3 Blood collected. 14:42 Patient has correct armband on for positive identification. Bed in low position. Call kr3 light in reach. Side rails up X2. Client placed on continuous cardiac and pulse oximetry monitoring. NIBP monitoring applied. 14:56 Abdomen In Process Unspecified. EDMS 15:53 First set of blood cultures drawn by ED staff. jw7 16:35 Inserted saline lock: 22 gauge in left hand, using aseptic technique. jw7 16:38 Ova And Parasites Sent. ll1 16:38 CDIFF Sent. ll1 16:39 Rotavirus Antigen Sent. ll1 16:39 Stool Culture Sent. ll1 16:46 Elias Huynh is Hospitalizing Provider. cp 19:17 SARS RAPID Sent. tw5 22:21 No provider procedures requiring assistance completed. Patient admitted, IV remains in tw5 place. 01/29 03:20 Repeat lab(s) drawn. by ak, sent to lab. Inserted saline lock: 24 gauge in right hand, tw5 using aseptic technique. Blood collected. 08:06 Primary Nurse role handed off by Bonita Rivera, RN eb Administered Medications: 01/28 13:40 Drug: Zofran (Ondansetron) 4 mg Route: IVP; Site: right antecubital; kr3 16:38 Follow up: Response: No adverse reaction ll1 13:50 Drug: Bentyl (dicyclomine) 20 mg Route: IM; Site: right vastus lateralis; kr3 16:38 Follow up: Response: No adverse reaction; Pain is decreased; RASS: Alert and Calm (0) ll1 14:01 Drug: NS 0.9% 500 ml Route: IV; Rate: 500 ml/hr; Site: right antecubital; kr3 17:38 Follow up: Response: No adverse reaction; IV Status: Completed infusion; IV Intake: kr3 500ml 17:44 Drug: NS 0.9% 1000 ml Route: IV; Rate: 75 ml/hr; Site: left hand; kr3 18:48 Follow up: IV Status: Completed infusion; IV Intake: 1000ml kr3 17:44 Drug: NS 0.9% 500 ml Route: IV; Rate: bolus; Site: left hand; kr3 18:47 Follow up: Response: No adverse reaction; IV Status: Completed infusion; IV Intake: kr3 500ml 18:47 Drug: metroNIDAZOLE 500 mg Volume: 100 ml; Route: IVPB; Infused Over: 30 mins; Site: kr3 right antecubital; 19:07 Follow up: Response: No adverse reaction; IV Status: Completed infusion; IV Intake: ll1 100ml 19:20 Drug: Cipro (ciprofloxacin) 400 mg Volume: 200 ml; Route: IVPB; Infused Over: 60 mins; tw5 Site: right antecubital; 22:21 Follow up: Response: No adverse reaction; IV Status: Completed infusion tw5 Medication: 14:42 VIS not applicable for this client. kr3 Intake: 17:38 IV: 500ml; Total: 500ml. kr3 18:47 IV: 500ml; Total: 1000ml. kr3 18:48 IV: 1000ml; Total: 2000ml. kr3 19:07 IV: 100ml; Total: 2100ml. ll1 Outcome: 16:47 Decision to Hospitalize by Provider. cp 22:21 Admitted to ER Hold. Please see [facility] for further documentation. tw5 22:21 Condition: stable 22:21 Discharge instructions given to patient, family, Instructed on the need for admit. 01/29 09:58 Patient left the ED. ph Signatures: Dispatcher [employer] Kat Willard Patricia RN RN Murray Gonsales PA PA cp Loan Shore RN RN hb Botello, Elizabeth eb Lewis, Lynsay, RN RN 1 Diana Norton tw5 Lilo Loving jw7 Bonita Rivera RN RN kr3 Corrections: (The following items were deleted from the chart) 01/28 18:46 17:40 Reassessment: called lab a second time to collect 2nd set of blood cultures, kr3 stated that they would try and find someone to send. kr3
[2022-01-28] MEDS ORDERED: NA CHLORIDE 0.9% 1,000 ML ONE ×2 (17:49→22:28)
--- NOTE | 2022-01-28 17:50 | P.HP ---
Certification for Inpatient Patient admitted to: Inpatient With expected LOS: >2 Midnights Practitioner: I am a practitioner with admitting privileges, knowledge of patient current condition, hospital course, and medical plan of care. Services: Services provided to patient in accordance with Admission requirements found in Title 42 Section 412.3 of the Code of Federal Regulations Patient History Date of Service: 01/28/22 Reason for admission: Rectal bleeding History of Present Illness: 71-year-old woman with a history of hypertension and diabetes mellitus presented to the emergency department with a complaint of bloody stools of onset yesterday afternoon. Patient report about 10 BM with stool mixed with blood, symptoms associated with mild abdominal pain. She also stated she vomited 3 times, no blood in the vomit. Patient denies any shortness of breath or chest pain. She denies any diarrhea. ED provider stated patient was to looked maroon colored. CT abdomen and pelvis reported thickening of the wall of the colon from the mid transverse colon to the proximal sigmoid colon, distribution suggestive of ischemic colitis. Lactic level normal. Vitals are stable, patient is not anemic. She is hospitalized for further management. Allergies No Known Allergies Allergy (Verified 08/04/17 01:02) Home Medications: Amlodipine Besylate 1 tab PO DAILY 08/04/17 Aspirin [Aspir-Low] 1 tab PO DAILY 08/04/17 Insulin Detemir [Levemir Flextouch] 35 units SQ BID 08/04/17 Metoprolol Tartrate 1 tab PO DAILY 08/04/17 Pantoprazole Sodium [Protonix] 1 tab PO [id number] 08/04/17 Sitagliptin Phos/Metformin HCl [Janumet Xr 100-1,000 mg Tablet] 1 tab PO BID 08/04/17 glipiZIDE [Glucotrol] 1 tab PO BID 08/04/17 Atorvastatin Calcium [Lipitor*] 20 mg PO BEDTIME #30 tab 08/05/17 - Past Medical/Surgical History Diabetic: Yes -: high cholesterol -: IDDM -: HTN -: Dyslipidemia -: DM type II -: hysterectomy Psychosocial/ Personal History: Lives at home with her family - Family History Mother -: Diabetes Father -: Diabetes - Social History Alcohol use: No CD- Drugs: No Caffeine use: No Review of Systems Other: Patient denied any fever or headache. She reported constipation for which her son gave her Pepto-Bismol prior to onset of symptoms. Except as documented, all other systems reviewed and negative. Physical Examination - Physical Exam General: Alert, In no apparent distress, Oriented x3 HEENT: Atraumatic, PERRLA, Mucous membr. moist/pink, EOMI, Sclerae nonicteric Neck: Supple, JVD not distended, No Thyromegaly Respiratory: Clear to auscultation bilaterally, Normal air movement Cardiovascular: No edema, Regular rate/rhythm, Normal S1 S2, No murmurs Capillary refill: <2 Seconds Gastrointestinal: Normal bowel sounds, Soft and benign, Non-distended, No tenderness, No guarding Musculoskeletal: No swelling, No tenderness Integumentary: No rashes, No erythema, No cyanosis Neurological: Normal speech, Normal strength at 5/5 x4 extr, Cranial nerves 3-12 intact Lymphatics: No axilla or inguinal lymphadenopathy - Studies Laboratory Data (last 24 hrs) 01/28/22 13:40: PT 12.5, INR 1.13, APTT 23.5 L 01/28/22 13:40: WBC 11.10 H, Hgb 12.5, Hct 37.6, Plt Count 187 01/28/22 13:40: Sodium 135 L, Potassium 4.5, BUN 27 H, Creatinine 1.64 H, Glucose 306 H, Magnesium 2.0, Total Bilirubin 0.6, AST 12 L, ALT 15, Alkaline Phosphatase 62 Assessment and Plan - Problems (Diagnosis) (1) Lower GI bleed Current Visit: Yes Status: Acute (2) Colitis Current Visit: Yes Status: Acute (3) Acute renal failure Current Visit: Yes Status: Acute (4) Diabetes type 2, controlled Current Visit: No Status: Acute (5) Hypertension Current Visit: No Status: Acute - Plan Admit patient to the medical floor. Colitis distribution suggests ischemic origin. CT abdomen suggest multivessel coronary artery disease making ischemic colitis highly unlikely. Aggressively hydrate with normal saline. Start IV Protonix Monitor for active bleeding Monitor H&H We will obtain CTA abdomen and pelvis once patient has been aggressively hydrated and serum creatinine improved. Pain management as needed. IV antibiotic-Cipro and Flagyl. Monitor and optimize electrolytes. GI consult next week if available. - Advance Directives Does patient have a Living Will: No Does patient have a Durable POA for Healthcare: No
[2022-01-28 18:12] LABS: SARS-CoV-2 Antigen Rapid Res Negative (Negative)
[2022-01-28] MEDS ORDERED: MORPHINE 2 MG/ML SYR IV PRN (21:22)
[2022-01-28] MEDS ORDERED: NA CHLORIDE 0.9% 250 ML IV SCH (21:22)
[2022-01-28 21:51] VITALS: BMI 25.6
[2022-01-28 22:16] LABS: Hematocrit 34.7 % (36.0-45.0)
[2022-01-28] MEDS ORDERED: PANTOPRAZOLE 40 MG INJ ONE (22:27)
[2022-01-28] MEDS ORDERED: INSULIN -REGULAR HUMAN 50 UNIT/0.5 ML ML ONE (22:28)
[2022-01-28] MEDS: INSULIN -REGULAR HUMAN 50 UNIT/0.5 ML ML SQ SCH (22:48)
[2022-01-28] MEDS: NA CHLORIDE 0.9% 1,000 ML IV SCH (22:49)
[2022-01-28] MEDS: PANTOPRAZOLE 40 MG INJ IVP SCH (22:49)
[2022-01-28 23:00] LABS: Urine Blood Negative (Negative); Urine Glucose Negative (Negative); Urine Protein 1+ (Negative); Urine Specific Gravity >=1.030 (1.005-1.030); Urine pH 5.5 (5.0-7.0)
[2022-01-29] MEDS: METRONIDAZOLE 500mg IVPB 500 MG/100 ML BAG IV SCH ×3 (03:36→17:14)
[2022-01-29] MEDS ORDERED: METRONIDAZOLE 500mg IVPB 500 MG/100 ML BAG IV ONE (03:45)
[2022-01-29 03:58] LABS: Absolute Lymphocytes (CBC) 2.9 K/uL (0.7-4.9); Hematocrit 34.2 % (36.0-45.0); Lymphocytes % 24.1 % (15.3-44.8); MPV 9.9 fL (7.6-11.3); RBC Red Blood Cell Count 3.72 M/uL (3.86-4.86)
[2022-01-29 04:00] LABS: Protime INR 1.2
[2022-01-29] MEDS: NA CHLORIDE 0.9% 1,000 ML IV SCH ×3 (05:22→21:22)
[2022-01-29] MEDS: INSULIN -REGULAR HUMAN 50 UNIT/0.5 ML ML SQ SCH ×4 (07:30→21:00)
[2022-01-29] MEDS: CIPROFLOXACIN 400mg IV 400 MG/200 ML BAG IV SCH (09:00)
[2022-01-29] MEDS: PANTOPRAZOLE 40 MG INJ IVP SCH ×2 (09:00→21:10)
[2022-01-29] MEDS ORDERED: PANTOPRAZOLE 40 MG INJ ONE (09:26)
[2022-01-29] MEDS ORDERED: CIPROFLOXACIN 400mg IV 400 MG/200 ML BAG IV ONE (09:26)
[2022-01-29] MEDS ORDERED: PNEUMOCOCCAL VACCINE 0.5 ML IMVAC ONE (11:00)
--- NOTE | 2022-01-29 12:50 | EKG ---
Test Date: 2022-01-28 Test Time: 13:40:33 Shook Splicer: LML MEASUREMENT RESULTS: Intervals: Rate: 101 WV: 192 QRSD: 84 QT: 358 QTc: 464 [place]: P: 41 WV: 192 QRS: 95 T: 43 INTERPRETIVE STATEMENTS: Sinus tachycardia Possible Lateral infarct, age undetermined Possible Inferior infarct, age undetermined Abnormal ECG Compared to ECG 09/04/2021 04:03:04 Myocardial infarct finding now present Sinus rhythm no longer present First degree AV block no longer present Electronically Signed On 01-29-22 12:49:16 CDT by Calos Calle
--- NOTE | 2022-01-29 14:20 | P.PN ---
Subjective Date of Service: 01/29/22 Chief Complaint: Rectal bleeding Patient reports bloody bowel movement this morning. She denies any abdominal pain. No recorded fever. No nausea or vomiting. Physical Examination - Vital Signs Temperature: 98.0 F Blood Pressure: 125/69 Pulse: 95 Respirations: 16 Pulse Ox (%): 94 - Studies Laboratory Data (last 24 hrs) 01/28/22 13:40: PT 12.5, INR 1.13, APTT 23.5 L 01/28/22 13:40: WBC 11.10 H, Hgb 12.5, Hct 37.6, Plt Count 187 01/28/22 13:40: Sodium 135 L, Potassium 4.5, BUN 27 H, Creatinine 1.64 H, Glucose 306 H, Magnesium 2.0, Total Bilirubin 0.6, AST 12 L, ALT 15, Alkaline Phosphatase 62 Microbiology Data (last 24 hrs): 01/28/22 16:10 Stool Rotavirus Antigen - Final Assessment And Plan - Current Problems (Diagnosis) (1) Lower GI bleed Current Visit: Yes Status: Acute (2) Colitis Current Visit: Yes Status: Acute (3) Acute renal failure Current Visit: Yes Status: Acute (4) Diabetes type 2, controlled Current Visit: No Status: Acute (5) Hypertension Current Visit: No Status: Acute - Plan Physical Exam General: Alert, In no apparent distress, Oriented x3 HEENT:Mucous membr. moist/pink, Sclerae nonicteric Neck: JVD not distended. Respiratory: Clear to auscultation bilaterally, Normal air movement Cardiovascular: No edema, Regular rate/rhythm, Normal S1 S2, No murmurs Capillary refill: <2 Seconds Gastrointestinal: Normal bowel sounds, Soft and benign, Non-distended, No tenderness, No guarding Musculoskeletal: No swelling, No tenderness Integumentary: No rashes, No erythema, No cyanosis Neurological: Normal speech, Normal strength at 5/5 x4 extr, Cranial nerves 3-12 intact Lymphatics: No axilla or inguinal lymphadenopathy Plan: Colitis distribution suggests ischemic origin. Continue IV hydration Continue IV Protonix IV antibiotics Monitor for active bleeding Monitor H&H We will obtain CTA abdomen and pelvis once patient has been aggressively hydrated and serum creatinine improved. Monitor renal function Pain management as needed. Monitor and optimize electrolytes. GI consult tomorrow.
[2022-01-30] MEDS: METRONIDAZOLE 500mg IVPB 500 MG/100 ML BAG IV SCH ×3 (02:48→16:35)
[2022-01-30] MEDS: INSULIN -REGULAR HUMAN 50 UNIT/0.5 ML ML SQ SCH ×3 (06:00→17:14)
[2022-01-30] MEDS: PANTOPRAZOLE 40 MG INJ IVP SCH ×2 (09:43→22:30)
[2022-01-30] MEDS: NA CHLORIDE 0.9% 1,000 ML IV SCH ×4 (09:46→22:30)
[2022-01-30] MEDS: CIPROFLOXACIN 400mg IV 400 MG/200 ML BAG IV SCH (09:49)
[2022-01-30 14:03] LABS: C.diff Antigen/Toxin Ag neg : Tox neg (NEG : NEG)
--- NOTE | 2022-01-30 15:13 | P.PN ---
Subjective Date of Service: 01/30/22 Chief Complaint: Rectal bleeding Patient states she saw a small amount of blood with her BM this morning. She denies any abdominal pain. No recorded fever. No nausea or vomiting. Physical Examination - Vital Signs Temperature: 97.8 F Blood Pressure: 140/70 Pulse: 87 Respirations: 14 Pulse Ox (%): 94 Assessment And Plan - Current Problems (Diagnosis) (1) Lower GI bleed Current Visit: Yes Status: Acute (2) Colitis Current Visit: Yes Status: Acute (3) Acute renal failure Current Visit: Yes Status: Acute (4) Diabetes type 2, controlled Current Visit: No Status: Acute (5) Hypertension Current Visit: No Status: Acute - Plan Physical Exam General: Alert, In no apparent distress, Oriented x3 HEENT:Mucous membr. moist/pink, Sclerae nonicteric Neck: JVD not distended. Respiratory: Clear to auscultation bilaterally, Normal air movement Cardiovascular: No edema, Regular rate/rhythm, Normal S1 S2, No murmurs Capillary refill: <2 Seconds Gastrointestinal: Normal bowel sounds, Soft and benign, Non-distended, No tenderness, No guarding Musculoskeletal: No swelling, No tenderness Integumentary: No rashes, No erythema, No cyanosis Neurological: Normal speech, Normal strength at 5/5 x4 extr, Cranial nerves 3-12 intact Lymphatics: No axilla or inguinal lymphadenopathy Plan: Colitis distribution suggests ischemic origin. Continue IV hydration Continue IV Protonix Continue IV antibiotics. Case discussed with GI Dr. Villasenor will recommend to continue supportive measures and follow-up with him in 2 weeks in the office Hemoglobin has been stable. Monitor renal function. Obtain CTA abdomen and pelvis once patient has been aggressively hydrated and serum creatinine improved. Pain management as needed. Monitor and optimize electrolytes.
[2022-01-30 16:01] LABS: Potassium 3.9 mmol/L (3.5-5.1)
--- NOTE | 2022-01-30 20:33 | P.PN ---
Date of Service: 01/31/22 Subjective: ROS: 10 point ROS as noted above, otherwise negative Physical Exam: Gen: NAD, AOx3 HEENT: normal conjunctiva, sclera anicteric CV: regular rate & rhythm, no edema Pulm: non-labored respirations, clear bilaterally Abd: soft, non-tender, non-distended Neuro: normal speech, normal affect, moves all extremities vitals reviewed Problem List Hematochezia MERCEDES, prerenal; resolved HTN IDDM2 HLD hematochezia and colitis, CT findings/ distribution suggestive of ischemic etiology continue IVF, Protonix continue cipro + flagyl GI consulted - Dr. Villasenor recommended supportive measures, f/u in office in ~2 weeks CLD ordered 01/30 CTA ordereed 01/30, r/o ischemic etiology Hgb stable, small amount of blood with stool yesterday renal function significantly improved suspect secondary to pre-renal / dehydration, improved with IVF pain meds as needed VTE: SCDs (GI bleed) Code: Full Dispo: home, ~1-2 days Time Spent Managing Pts Care (In Minutes): 35
[2022-01-30 21:22] VITALS: O2SAT 97
--- NOTE | 2022-01-30 22:24 | RAD REPORT ---
EXAM DESCRIPTION: CT - Abdomen Angio - 01/30/2022 10:06 pm CLINICAL HISTORY: Hematochezia. Ischemic bowel. TECHNIQUE: During dynamic enhancement using nonionic IV contrast axial 3 millimeter thick images of the abdomen were obtained. Sagittal and coronal reformatted images were generated and reviewed. Recon struction images were generated using MIPS reconstruction protocol All CT scans are performed using dose optimization technique as appropriate and may include automated exposure control or mA/KV adjustment according to patient size. COMPARISON: CT angio pelvis same date, CT abdomen without contrast January 28 FINDINGS: Aortic atherosclerotic calcifications are present without aneurysm, dissection or acute a ortic finding. No centrally displaced calcification. The celiac, SMA and inferior mesenteric arteries are patent. No occlusion, thrombus or other significant vascular finding. The calcifications at the origin of the celiac and SMA vessels do not narrow the lumen. Single arteries supply each kidney without significant stenosis. The liver, spleen, pancreas, gallbladder, biliary tree and adrenal glands show no suspicious findings . Renal function is symmetric with no hydronephrosis or acute renal parenchymal process seen. No free air or pneumatosis. Colitis findings are still present in the left side colon. No progression from the January 28 imaging. No abscess or other emergent finding. Disc and bone degenerative changes are present. No acute or pathologic bone process. IMPRESSION: Aortic and mesenteric atherosclerotic calcifications are present ; however, the 3 mesen teric primary arteries are patent with no significant luminal narrowing. Ischemic etiology for the co litis is not suspected. Left-sided colitis findings are similar to January 28.
--- NOTE | 2022-01-30 22:30 | RAD REPORT ---
EXAM DESCRIPTION: CT - Pelvis Angio - 01/30/2022 10:06 pm CLINICAL HISTORY: HEMATOCHEZIA,ISCHEMIC BOWEL COMPARISON: CT angio abdomen same date, CT abdomen and pelvis January 28 TECHNIQUE: Dynamically enhanced 3 mm thick images of the pelvis were obtained during administration of approximately 150mL Isovue 370 IV contrast. Sagittal and coronal reconstruction images were genera ellie using MIP and reviewed. All CT scans are performed using dose optimization technique as appropriate and may include automated exposure control or mA/KV adjustment according to patient size. FINDINGS: Atherosclerotic calcifications are seen in the distal most abdominal aortic continuing int o the common iliac vasculature. The bilateral common iliac arteries show wall thickening and atherosc lerotic calcification causing bilateral 40% luminal stenosis. No significant stenosis in the internal iliac vasculature. The bilateral external iliac arteries show minimal atherosclerotic change with no significant luminal narrowing. Atherosclerotic changes cause 20% right common femoral artery luminal narrowing and 50% left short segment common femoral artery stenosis. Colitis changes are present in the colon down to the proximal sigmoid portion. The colitis findings a re similar to January 28 imaging. No abscess, free air or emergent finding. Bowel loops are otherwise unremarkable. Partially filled urinary bladder shows no suspicious findings. No free air, free fluid or inflammatory stranding otherwise noted. No mass or bulky lymphadenopathy. IMPRESSION: Distal most aorta, bilateral common iliac and bilateral common femoral arteries show ath erosclerotic changes. Approximately 40% stenosis seen in common iliac artery with short-segment 50% s tenosis in the left common femoral artery. Left-sided colitis findings, partially imaged on this study, not significantly different from January 28.
[2022-01-31] MEDS: METRONIDAZOLE 500mg IVPB 500 MG/100 ML BAG IV SCH ×3 (01:42→17:00)
[2022-01-31 05:38] LABS: Absolute Lymphocytes (CBC) 2.6 K/uL (0.7-4.9); Lymphocytes % 25.7 % (15.3-44.8); MCV 92.5 fL (80-100); MPV 9.7 fL (7.6-11.3); RBC Red Blood Cell Count 3.89 M/uL (3.86-4.86)
[2022-01-31 06:12] LABS: Albumin 2.9 g/dL (3.4-5.0); Bilirubin Total 0.4 mg/dL (0.2-1.0); Magnesium 1.8 mg/dL (1.8-2.4); Potassium 3.8 mmol/L (3.5-5.1); Protein, Total 6.8 g/dL (6.4-8.2)
[2022-01-31] MEDS: INSULIN -REGULAR HUMAN 50 UNIT/0.5 ML ML SQ SCH ×3 (07:30→16:30)
[2022-01-31] MEDS: PANTOPRAZOLE 40 MG INJ IVP SCH (09:00)
[2022-01-31] MEDS: NA CHLORIDE 0.9% 1,000 ML IV SCH (09:16)
[2022-01-31] MEDS: CIPROFLOXACIN 400mg IV 400 MG/200 ML BAG IV SCH (09:16)
[2022-01-31 12:33] VITALS: BP 177/81; TEMP 97.3
[2022-01-31] MEDS ORDERED: AMLODIPINE 10 MG TAB PO SCH (13:30)
--- NOTE | 2022-01-31 19:53 | P.DS ---
Admission Date: 01/28/22 Discharge Date: 01/31/22 Disposition: ROUTINE DISCHARGE Discharge Condition: GOOD Reason for Admission: Rectal bleeding Consultations: GI - Dr. Villasenor Brief History of Present Illness: 71-year-old woman with a history of hypertension and diabetes mellitus presented to the emergency department with a complaint of bloody stools of onset yesterday afternoon. Patient report about 10 BM with stool mixed with blood, symptoms associated with mild abdominal pain. She also stated she vomited 3 times, no blood in the vomit. Patient denies any shortness of breath or chest pain. She denies any diarrhea. ED provider stated patient was to looked maroon colored. CT abdomen and pelvis reported thickening of the wall of the colon from the mid transverse colon to the proximal sigmoid colon, distribution suggestive of ischemic colitis. Lactate: normal Hospital Course: Problem List Hematochezia secondary to colitis MERCEDES, prerenal; resolved HTN IDDM2 HLD Patient presented with abdominal pain and blood in stool for a few days. CT imaging revealed findings consistent with colitis. Given the area involved, there was some concern this may be ischemic colitis. GI (Dr. Villasenor) was consulted. Patient underwent CTA which revealed some mild-mod atherosclerosis (40-50%) in common iliac artery, which should not be significant enough to cause issues. Her blood in stool improved and her hemoglobin remained stable. She was afebrile. Treated with bowel rest, protonix, and antibiotics. Reviewed with Dr. Villasenor and patient was deemed stable for discharge home. On day of discharge she did not have any further blood in her stool, was afebrile, and tolerated soft diet. Recommend continue soft diet for 1 week, then can slowly incorporate more regular food. Follow up with PCP within [address] Villasenor's office to schedule follow up appointment - will need colonoscopy in ~4 weeks or so. Discharged with 12 more days of cipro/flagyl to complete a total of 14 days of antibiotics. Counselled on return precautions. Discussed can be ok to have small amount of blood with stool in next few days To return to ER if fever (temp > 100.4), worsening bleeding, and if associated with worsening abdominal pain. Physical Exam: Gen: NAD, AOx3 HEENT: normal conjunctiva, sclera anicteric CV: regular rate & rhythm, no edema Pulm: non-labored respirations, clear bilaterally Abd: soft, non-tender, non-distended Neuro: normal speech, normal affect, moves all extremities Vital Signs/Physical Exam: Temp Pulse Resp BP Pulse Ox 97.3 F 80 18 177/81 H 97 01/31/22 12:00 01/31/22 12:00 01/31/22 12:00 01/31/22 12:00 01/31/22 12:00 Laboratory Data at Discharge: WBC 10.20 K/uL (4.3-10.9) D 01/31/22 05:14 Hgb 12.0 g/dL (12.0-15.0) 01/31/22 05:14 Hct 36.0 % (36.0-45.0) 01/31/22 05:14 Plt Count 155 K/uL (152-406) 01/31/22 05:14 PT 13.3 SECONDS (9.5-12.5) H 01/29/22 03:17 INR 1.20 01/29/22 03:17 APTT 23.5 SECONDS (24.3-36.9) L 01/28/22 13:40 Sodium 139 mmol/L (136-145) 01/31/22 05:14 Potassium 3.8 mmol/L (3.5-5.1) 01/31/22 05:14 BUN 5 mg/dL (7-18) L 01/31/22 05:14 Creatinine 0.95 mg/dL (0.55-1.3) 01/31/22 05:14 Glucose 167 mg/dL (74-106) H 01/31/22 05:14 Magnesium 1.8 mg/dL (1.8-2.4) 01/31/22 05:14 Total Bilirubin 0.4 mg/dL (0.2-1.0) 01/31/22 05:14 AST 15 U/L (15-37) 01/31/22 05:14 ALT 12 U/L (12-78) 01/31/22 05:14 Alkaline Phosphatase 55 U/L (45-117) 01/31/22 05:14 Home Medications: Amlodipine Besylate 1 tab PO DAILY 08/04/17 Aspirin [Aspir-Low] 1 tab PO DAILY 08/04/17 Insulin Detemir [Levemir Flextouch] 35 units SQ BID 08/04/17 Alendronate [Fosamax*] 10 mg DAILY 01/28/22 Gabapentin 100 mg DAILY 01/28/22 Lisinopril [Zestril] 40 mg DAILY 01/28/22 Metoprolol Succinate 100 mg DAILY 01/28/22 Sitagliptin Phos/Metformin HCl [Janumet Xr 100-1,000 mg Tablet] 50 - 1,000 mg DAILY 01/28/22 Ciprofloxacin HCl [Cipro 500 MG Tablet] 500 mg PO BID 12 Days #24 tab 01/31/22 Pantoprazole Sodium [Protonix] 40 mg PO BID 30 Days #60 tab 01/31/22 Tramadol HCl [Ultram] 50 mg PO Q6H PRN #12 tab 01/31/22 metroNIDAZOLE [Flagyl] 500 mg PO Q8H 12 Days #36 tab 01/31/22 New Medications: Ciprofloxacin HCl [Cipro 500 MG Tablet] 500 mg PO BID 12 Days #24 tab metroNIDAZOLE [Flagyl] 500 mg PO Q8H 12 Days #36 tab Pantoprazole Sodium [Protonix] 40 mg PO BID 30 Days #60 tab Tramadol HCl [Ultram] 50 mg PO Q6H PRN #12 tab PRN Reason: Pain Scale 5-7 (Moderate) Physician Discharge Instructions: Patient presented with abdominal pain and blood in stool for a few days. CT imaging revealed findings consistent with colitis. Given the area involved, there was some concern this may be ischemic colitis. GI (Dr. Villasenor) was consulted. Patient underwent CTA which revealed some mild- mod atherosclerosis (40-50%) in common iliac artery, which should not be signif icant enough to cause issues. Her blood in stool improved and her hemoglobin remained stable. She was afebrile. Treated with bowel rest, protonix, and antibiotics. Reviewed with Dr. Villasenor and patient was deemed stable for discharge home. On day of discharge she did not have any further blood in her stool, was afebrile, and tolerated soft diet. Recommend continue soft diet for 1 week, then can slowly incorporate more regular food. Follow up with PCP within [address] Villasenor's office to schedule follow up appointment - will need colonoscopy in ~4 weeks or so. Discharged with 12 more days of cipro/flagyl to complete a total of 14 days of antibiotics. Counselled on return precautions. Discussed can be ok to have small amount of blood with stool in next few days To return to ER if fever (temp > 100.4), worsening bleeding, and if associated with worsening abdominal pain. Diet: soft Activity: Ad louise Followup: WILLOW SANTOS [Primary Care Provider] - Time spent managing pt's care (in minutes): 40
== END 2022-01-31 18:16 | disposition home or self-care (01) | DRG 394 ==
LOC: ER 12:53 → ERHOLD 17:34 → 4TH 01-29 09:01
PROVIDERS: ADMIT Internal Medicine; ATTEND Internal Medicine
DX: K55.039 Acute (reversible) ischemia of large intestine, extent unspecified (principal); N17.9 Acute kidney failure, unspecified; K92.1 Melena; I10 Essential (primary) hypertension; E11.9 Type 2 diabetes mellitus without complications; E78.5 Hyperlipidemia, unspecified; Z79.4 Long term (current) use of insulin; Z20.822 Contact with and (suspected) exposure to COVID-19
CPT/HCPCS: 36415; 72191; 74175; 74176; 80048; 80053; 80076; 81003; 82947; 83605; 83735; 84145; 84484; 85014; 85018; 85025; 85610; 85730; 87040; 87045; 87046; 87177; 87209; 87324; 87425; 87811; 93005; 94760; 96361; 96365; 96366; 96367; 96372; 96375; 99285; C9113; J0500; J0744; J1815; J2270; J2405; J7030; J7040; Q9967

== ENCOUNTER 2022-04-20 11:37 | Emergency (ER) | payer OTHER ==
--- OUTSIDE RECORDS SUMMARY | 2022-04-20 11:55 | XMS REPORT | Continuity of Care Document ---
:1950 Author Organization [facility] t Address 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-04 it y of present present 00:00: [place] 00 [facility] Immunizati Immunizati Disease Active U nivers on on 4-04 ity of [place] Active 2017-0 Univers both hands both hands 09-05 it y of 00:00: [address] Allergies, Adverse Reactions, Alerts Allergy Allergy Status Severity Reaction(s) Onset Inactive Treating Comm ents Source Name Type Date Date Clinician NO KNOWN Drug Active Univers ALLERGIE Class ity of [facility] Social History Social Habit Start Date Stop Date Quantity Comments Source Tobacco use and 2017-09-05 2017-09-05 Never used Universit y of exposure 00:00:00 00:00:00 [facility] Alcohol intake 2017-09-05 2017-09-05 Current University of 00:00:00 00:00:00 non-drinker of [facility] alcohol Branch (finding) [facility]igned At [birth year] [facility] Smoking Status Start Date Stop Date Source Never smoker [facility] Medications Ordered Filled Start Stop Current Ordering Indication Dosage Frequency Signature Comments Components Source Medication Medication Date Date Medication? Clinician (SIG) Name Name MUPIROCIN 2 2021-0 No % OINT 02-08 00:00: 00 MUPIROCIN 2 2021-0 No % OINT 02-08 00:00: 00 &lt 2022-0 No 8 8-10 00:00: 00 &lt 2022-0 No 8 8-10 00:00: 00 &lt 2022-0 No 8-08 00:00: 00 &lt 2022-0 No 8-08 00:00: 00 &lt 2022-0 No 8-03 00:00: 00 Dose 2022-0 No Unknown 8-03 00:00: 00 &lt 2022-0 No 10 8-03 00:00: 00 &lt 2022-0 No 8-03 00:00: 00 &lt 2022-0 No 8-03 00:00: 00 Dose 2022-0 No Unknown 8-03 00:00: 00 &lt 2022-0 No 10 8-03 00:00: 00 &lt 2022-0 No 8-03 00:00: 00 &lt 2022-0 No 8-03 00:00: 00 Dose 2022-0 No Unknown 8-03 00:00: 00 &lt 2022-0 No 10 8-03 00:00: 00 &lt 2022-0 No 8-03 00:00: 00 TOME JAGDISH 2022-0 No TABLETA DOS 7-26 VECES AL D 00:00: A 00 Dose 2022-0 No Unknown 7- 00:00: 00 TOME JAGDISH 2022-0 No 40 TABLETA POR 7-26 V A ORAL 00:00: TODOS LOS D 00 TOME JAGDISH 2-0 No TABLETA DOS 7-26 VECES AL D 00:00: A 00 Dose 2022-0 No Unknown 7- 00:00: 00 TOME JAGDISH 2022-0 No 40 TABLETA POR 7-26 V A ORAL 00:00: TODOS LOS D 00 TOME JAGDISH 2-0 No TABLETA DOS 7-26 VECES AL D 00:00: A 00 Dose 2022-0 No Unknown 7- 00:00: 00 TOME JAGDISH 2022-0 No 40 TABLETA POR 7-26 V A ORAL 00:00: TODOS LOS D 00 Dose 2022-0 No Unknown 7-25 00:00: 00 Dose 2022-0 No Unknown 7-25 00:00: 00 Dose 2022-0 No Unknown 7-25 00:00: 00 TOME JAGDISH 2022-0 No TABLETA DOS 7-12 VECES AL D 00:00: A 00 TOME JAGDISH 2022-0 No TABLETA DOS 7-12 VECES AL D 00:00: A 00 TOME JAGDISH 2022-0 No TABLETA DOS 7-12 VECES AL D 00:00: A 00 INJECT 2022-0 No UNITS BELOW 7-06 THE SKIN AT 00:00: BEDTIME 00 INJECT 55 UNITS APLIQUE A 2022-0 No DIARIO A LA 7-06 PIEL EL LC 00:00: AFECTADA 00 TODOS LOS D INJECT 2022-0 No UNITS BELOW 7-06 THE SKIN AT 00:00: BEDTIME 00 INJECT 55 UNITS APLIQUE A 2022-0 No DIARIO A LA 7-06 PIEL EL LC 00:00: AFECTADA 00 TODOS LOS D INJECT 2022-0 No UNITS BELOW 7-06 THE SKIN AT 00:00: BEDTIME 00 INJECT 55 UNITS APLIQUE A 2021-0 No DIARIO A LA 7-06 PIEL EL LC 00:00: AFECTADA 00 TODOS LOS D TAKE 1 2021-0 No 10 TABLET BY 7-05 MOUTH DAILY 00:00: JULIET JAGDISH 00 TABLETA JAGDISH VECE AL PITO PARA LA SHANNAN OSEA TAKE 1 2021-0 No 20 TABLET BY 7-05 MOUTH AT 00:00: BEDTIME 00 JULIET JAGDISH TABLETA EN LA NOCHE PARA EL COLESTEROL Dose 2021-0 No Unknown 12-06 00:00: 00 Dose 2021-0 No Unknown 12-06 00:00: 00 Dose 2021-0 No Unknown 12-06 00:00: 00 TAKE 1 2021-0 No 100 TABLET BY 7-05 MOUTH DAILY 00:00: JULIET JAGDISH 00 TABLETA JAGDISH VECES AL PITO PARA LA PRESION ARTERIAL TOME JAGDISH 0 No 10 TABLETA POR -05 V A ORAL 00:00: TODOS LOS D 00 TOME JAGDISH 2021-0 No 500 TABLETA 12-06 TODOS LOS D 00:00: 00 Dose 2021-0 No Unknown 12-06 00:00: 00 Dose 2021-0 No Unknown 12-06 00:00: 00 TAKE 1 2021-0 No 10 TABLET BY 7-05 MOUTH DAILY 00:00: JULIET JAGDISH 00 TABLETA JAGDISH VECE AL PITO PARA LA SHANNAN OSEA TAKE 1 0 No 20 TABLET BY 7-05 MOUTH AT 00:00: BEDTIME 00 JULIET JAGDISH TABLETA EN LA NOCHE PARA EL COLESTEROL Dose 2021-0 No Unknown 12-06 00:00: 00 Dose 2021-0 No Unknown 12-06 00:00: 00 Dose 2021-0 No Unknown 12-06 00:00: 00 TAKE 1 2021-0 No 100 TABLET BY 7-05 MOUTH DAILY 00:00: JULIET JAGDISH 00 TABLETA JAGDISH VECES AL PITO PARA LA PRESION ARTERIAL TOME JAGDISH 2021-0 No 10 TABLETA POR 7-05 V A ORAL 00:00: TODOS LOS D 00 TOME JAGDISH 2021-0 No 500 TABLETA 05 TODOS LOS D 00:00: 00 Dose 2021-0 No Unknown 7 00:00: 00 Dose 2021-0 No Unknown 12-06 00:00: 00 TAKE 1 2021-0 No 10 TABLET BY 7-05 MOUTH DAILY 00:00: JULIET JAGDISH 00 TABLETA JAGDISH VECE AL PITO PARA LA SHANNAN OSEA TAKE 1 2021-0 No 20 TABLET BY 7-05 MOUTH AT 00:00: BEDTIME 00 JULIET JAGDISH TABLETA EN LA NOCHE PARA EL COLESTEROL Dose 2021-0 No Unknown 12-06 00:00: 00 Dose 2021-0 No Unknown 12-06 00:00: 00 Dose 2021-0 No Unknown 12-06 00:00: 00 TAKE 1 2021-0 No 100 TABLET BY 7-05 MOUTH DAILY 00:00: JULIET JAGDISH 00 TABLETA JAGDISH VECES AL PITO PARA LA PRESION ARTERIAL TOME JAGDISH 2021-0 No 10 TABLETA POR 7-05 V A ORAL 00:00: TODOS LOS D 00 TOME JAGDISH 2021-0 No 500 TABLETA 12-06 TODOS LOS D 00:00: 00 Dose 2021-0 No Unknown 12-06 00:00: 00 Dose 2021-0 No Unknown 12-06 00:00: 00 TAKE 1 2021-0 No 10 TABLET BY 7-05 MOUTH DAILY 00:00: JULIET JAGDISH 00 TABLETA JAGDISH VECE AL PITO PARA LA SHANNAN OSEA TAKE 1 2021-0 No 20 TABLET BY 7-05 MOUTH AT 00:00: BEDTIME 00 JULIET JAGDISH TABLETA EN LA NOCHE PARA EL COLESTEROL Dose 2021-0 No Unknown 12-06 00:00: 00 Dose 2021-0 No Unknown 12-06 00:00: 00 Dose 2021-0 No Unknown 12-06 00:00: 00 TAKE 1 2021-0 No 100 TABLET BY 7-05 MOUTH DAILY 00:00: JULIET JAGDISH 00 TABLETA JAGDISH VECES AL PITO PARA LA PRESION ARTERIAL TOME JAGDISH 2021-0 No 10 TABLETA POR -05 V A ORAL 00:00: TODOS LOS D 00 TOME JAGDISH 2021-0 No 500 TABLETA 12-06 TODOS LOS D 00:00: 00 Dose 2021-0 No Unknown 12-06 00:00: 00 Dose 2021-0 No Unknown 12-06 00:00: 00 Levemir 2021-0 No (3 mL) FlexTouch 6-20 U-100 00:00: Insulin 100 00 unit/mL (3 mL) subcutaneou s pen lisinopril 2022-0 No 1mg 40 mg 6-20 tablet 00:00: 00 metoprolol 2022-0 No 1mg succinate 6-20 ER 100 mg 00:00: tablet,exte 00 nded release 24 hr amlodipine 2022-0 No 1mg 10 mg 6-20 tablet 00:00: 00 alendronate 2022-0 No 1mg 10 mg 6-20 tablet 00:00: 00 Janumet XR 2022-0 No 1mg 100 6-20 mg-1,000 mg 00:00: tablet,exte 00 nded release Janumet XR 2022-0 No 1mg 50 mg-1,000 6-20 mg 00:00: tablet,exte 00 nded release lovastatin 2-0 No 1mg 20 mg 6-20 tablet 00:00: 00 Levemir 2022-0 No (3 mL) FlexTouch 6-20 U-100 00:00: Insulin 100 00 unit/mL (3 mL) subcutaneou s pen lisinopril 2-0 No 1mg 40 mg 6-20 tablet 00:00: 00 metoprolol 2022-0 No 1mg succinate 6-20 ER 100 mg 00:00: tablet,exte 00 nded release 24 hr amlodipine 2-0 No 1mg 10 mg 6-20 tablet 00:00: 00 alendronate 2022-0 No 1mg 10 mg 6-20 tablet 00:00: 00 Janumet XR 2022-0 No 1mg 100 6-20 mg-1,000 mg 00:00: tablet,exte 00 nded release Janumet XR 2-0 No 1mg 50 mg-1,000 6-20 mg 00:00: tablet,exte 00 nded release lovastatin 2022-0 No 1mg 20 mg 6-20 tablet 00:00: 00 APLIQUE A 2021-0 No DIARIO A LA 6-17 PIEL EL LC 00:00: AFECTADA 00 TODOS LOS D APLIQUE A 2021-0 No DIARIO A LA 6-17 PIEL EL LC 00:00: AFECTADA 00 TODOS LOS D APLIQUE A 2021-0 No DIARIO A LA 6-17 PIEL EL LC 00:00: AFECTADA 00 TODOS LOS D APLIQUE A 2021-0 No DIARIO A LA 6-17 PIEL EL LC 00:00: AFECTADA 00 TODOS LOS D Levemir 2021-0 No (3 mL) FlexTouch 5-25 [...] 2-0 No Unknown 4-23 00:00: 00 Dose 2021-0 No Unknown 4-23 00:00: 00 Dose 2-0 No Unknown 4-23 00:00: 00 Dose 2-0 No Unknown 4-23 00:00: 00 Dose 2-0 No Unknown 4-23 00:00: 00 Dose 2-0 No Unknown 4-23 00:00: 00 levofloxaci 2021-0 No 1mg n 500 mg 4-23 tablet 00:00: 00 Dose 2-0 No Unknown 4-23 00:00: 00 Dose 2-0 No Unknown 4-23 00:00: 00 Dose 2-0 No Unknown 4-23 00:00: 00 Dose 2-0 No Unknown 4-23 00:00: 00 Dose 2-0 No Unknown 4-23 00:00: 00 Dose 2-0 No Unknown 4-23 00:00: 00 Dose 2-0 No Unknown 4-23 00:00: 00 Dose 2-0 No Unknown 4-23 00:00: 00 Dose 2022-0 No Unknown 4-23 00:00: 00 levofloxaci 2022-0 No 1mg n 500 mg 4-23 tablet 00:00: 00 Dose 2022-0 No Unknown 4-23 00:00: 00 Dose 2022-0 No Unknown 4-23 00:00: 00 Dose 2022-0 No Unknown 4-23 00:00: 00 Dose 2022-0 No Unknown 4-23 00:00: 00 Dose 2022-0 No Unknown 4-23 00:00: 00 Dose 2022-0 No Unknown 4-23 00:00: 00 Dose 2022-0 No Unknown 4-23 00:00: 00 Dose 2022-0 No Unknown 4-23 00:00: 00 Dose 2022-0 No Unknown 4-23 00:00: 00 levofloxaci 2022-0 No 1mg n 500 mg 4-23 tablet 00:00: 00 Dose 2022-0 No Unknown 4-23 00:00: 00 Dose 2022-0 No Unknown 4-23 00:00: 00 Dose 2022-0 No Unknown 4-23 00:00: 00 Dose 2022-0 No Unknown 4-23 00:00: 00 Dose 2022-0 No Unknown 4-23 00:00: 00 Dose 2022-0 No Unknown 4-23 00:00: 00 Dose 2022-0 No Unknown 4-23 00:00: 00 Dose 2022-0 No Unknown 4-23 00:00: 00 Dose 2022-0 No Unknown 4-23 00:00: 00 Dose 2022-0 No Unknown 4-21 00:00: 00 Dose 2022-0 No Unknown 4-21 00:00: 00 Dose 2022-0 No Unknown 4-21 00:00: 00 Dose 2022-0 No Unknown 4-21 00:00: 00 Dose 2022-0 No Unknown 4-21 00:00: 00 Dose 2022-0 No Unknown 4-21 00:00: 00 Dose 2022-0 No Unknown 4-21 00:00: 00 Dose 2022-0 No Unknown 4-21 00:00: 00 Dose 2022-0 No Unknown 4-20 00:00: 00 Dose 2022-0 No Unknown 4-20 00:00: 00 Dose 2022-0 No Unknown 4-20 00:00: 00 Dose 2022-0 No Unknown 4-20 00:00: 00 sulfamethox 2022-0 No 1mg azole 800 4-19 [...] 1mg 10 mg 3-24 tablet 00:00: 00 Dose 2022-0 No Unknown 3-24 00:00: 00 metoprolol 2022-0 No 1mg succinate 3-24 [...] 1mg 10 mg 3-24 tablet 00:00: 00 Dose 2022-0 No Unknown 3-24 00:00: 00 metoprolol 2022-0 No 1mg succinate 3-24 [...] No 1mg 100 3-24 mg-1,000 mg 00:00: tablet,ext nded release lovastatin 2-0 No 1mg 20 mg 3-24 tablet 00:00: [...] 2-0 No Unknown 3-16 00:00: 00 Dose 2-0 No Unknown 3-16 00:00: 00 Dose 2022-0 No Unknown 3-16 00:00: 00 Dose 2022-0 No Unknown 3-16 00:00: 00 Dose 2-0 No Unknown 3-16 00:00: 00 Dose 2022-0 No Unknown 3-16 00:00: 00 Dose 2022-0 No Unknown 3-16 00:00: 00 Dose 2-0 No Unknown 3-16 00:00: 00 Dose 2-0 No Unknown 3-16 00:00: 00 Dose 2-0 No Unknown 3-16 00:00: 00 Dose 2022-0 No Unknown 3-16 00:00: 00 Dose 2-0 No Unknown 2-02 00:00: 00 Dose 2-0 No Unknown 2-02 00:00: 00 Dose 2-0 No Unknown 2-02 00:00: 00 Dose 2-0 [...] 300 mg 0-07 capsule 00:00: 00 Levemir 2021-0 No (3 [...] 00 nded release 24 hr Janumet XR 1-0 No 1mg 100 9-20 mg-1,000 mg 00:00: tablet,exte 00 nded release lovastatin 1-0 No 1mg 20 mg 9-20 tablet 00:00: 00 Levemir 2021-0 No (3 mL) FlexTouch 7-10 U-100 00:00: Insulin 100 00 unit/mL (3 mL) subcutaneou s pen Levemir 1-0 No (3 mL) FlexTouch 7-10 U-100 00:00: [...] unit/mL (3 mL) subcutaneou s pen metoprolol 2021-0 No 1mg succinate 5-25 ER 100 mg [...] unit/mL (3 mL) subcutaneou s pen metoprolol 2021-0 No 1mg succinate 5-25 ER 100 mg [...] unit/mL (3 mL) subcutaneou s pen metoprolol 2021-0 No 1mg succinate 5-25 ER 100 mg [...] hr aspirin 81 1-0 No 1mg mg 3-10 tablet,teressa 00:00: yed release 00 amlodipine 1-0 No 1mg 10 mg 3-10 tablet [...] mg 00:00: tablet,exte 00 nded release Levemir 1-0 No (3 mL) FlexTouch 3-10 U-100 00:00: [...] 1mg 40 mg 3-10 tablet 00:00: 00 lovastatin 2021-0 No 1mg 20 mg 3-10 tablet 00:00: 00 Janumet XR [...] hr aspirin 81 1-0 No 1mg mg 3-10 tablet,teressa 00:00: yed release 00 amlodipine 1-0 No 1mg 10 mg 3-10 tablet [...] pen Levemir 2021-0 No (3 mL) FlexTouch 2-12 U-100 00:00: Insulin 100 00 unit/mL (3 mL) subcutaneou s pen metoprolol 1-0 No 1mg succinate 2-12 ER 100 mg 00:00: tablet,exte 00 nded release 24 hr alendronate 1-0 No 1mg 10 mg 2-12 tablet 00:00: 00 Janumet XR 1-0 No 1mg 100 2-12 mg-1,000 mg 00:00: tablet,exte 00 nded release lovastatin 2021-0 No 1mg 20 mg 2-12 tablet 00:00: 00 Levemir 2021-0 No (3 mL) FlexTouch 2-12 U-100 00:00: [...] 20 mg 2-12 tablet 00:00: 00 Levemir 2021-0 No (3 mL) FlexTouch 2-12 U-100 00:00: [...] 20 mg 2-12 tablet 00:00: 00 Levemir 2021-0 No (3 mL) FlexTouch 2-12 U-100 00:00: Insulin 100 00 unit/mL (3 mL) subcutaneou s pen metoprolol 1-0 No 1mg succinate 2-12 ER 100 mg 00:00: tablet,exte 00 nded release 24 hr alendronate 1-0 No 1mg 10 mg 2-12 tablet 00:00: 00 Janumet XR 2021-0 No 1mg 100 2-12 mg-1,000 mg 00:00: tablet,exte 00 nded release lovastatin 1-0 No 1mg 20 mg 2-12 tablet 00:00: 00 lovastatin 2021-0 No 1mg 20 mg 2-04 tablet 00:00: 00 lovastatin 2021-0 No 1mg 20 mg 2-04 tablet 00:00: 00 lovastatin 2021-0 No 1mg 20 mg 2-04 tablet 00:00: 00 lovastatin 2020-0 No 1mg 20 mg 2-04 tablet 00:00: [...] 00 nded release 24 hr Janumet XR 2019- No 1mg 100 1-10 mg-1,000 mg 00:00: tablet,exte 00 nded release alendronate 2019- No 1mg 10 mg 1-10 tablet 00:00: 00 metoprolol 2019-1 No 1mg succinate 1-10 ER 100 mg 00:00: tablet,exte 00 nded release 24 hr Janumet XR 2019- No 1mg 100 1-10 mg-1,000 mg 00:00: tablet,exte 00 nded release alendronate 2019-1 No 1mg 10 mg 1-10 tablet 00:00: 00 metoprolol 2019-1 No 1mg succinate 1-10 ER 100 mg 00:00: tablet,exte 00 nded release 24 hr Janumet XR 2019- No 1mg 100 1-10 mg-1,000 mg 00:00: tablet,exte 00 nded release alendronate 2019-1 No 1mg 10 mg 1-10 tablet 00:00: 00 metoprolol 2020-1 No 1mg succinate 1-10 ER 100 mg 00:00: tablet,exte 00 nded release 24 hr Janumet XR 2019- No 1mg 100 1-10 mg-1,000 mg 00:00: tablet,exte 00 nded release Levemir 2019- No (3 mL) FlexTouch 1-07 U-100 00:00: Insulin 100 00 unit/mL (3 mL) subcutaneou s pen aspirin 81 2019- No 1mg mg 1-07 tablet,teressa 00:00: yed release 00 amlodipine 2019- No 1mg 10 mg 1-07 tablet 00:00: 00 lisinopril 2019- No 1mg 40 mg 1-07 tablet 00:00: 00 lovastatin 2019- No 1mg 20 mg 1-07 tablet 00:00: 00 Alcohol 2019- No 1 Pads 1-07 00:00: 00 Levemir 2019- No (3 mL) FlexTouch 1-07 U-100 00:00: Insulin 100 00 unit/mL (3 mL) subcutaneou s pen aspirin 81 2019- No 1mg mg 1-07 tablet,teressa 00:00: yed release 00 amlodipine 2019- No 1mg 10 mg 1-07 tablet 00:00: 00 lisinopril 2019- No 1mg 40 mg 1-07 tablet 00:00: 00 lovastatin 2019- No 1mg 20 mg 1-07 tablet 00:00: 00 Alcohol 2019- No 1 Pads 1-07 00:00: 00 Levemir 2019- No (3 mL) FlexTouch 1-07 U-100 00:00: Insulin 100 00 unit/mL (3 mL) subcutaneou s pen aspirin 81 2019- No 1mg mg 1-07 tablet,teressa 00:00: yed release 00 amlodipine 2019- No 1mg 10 mg 1-07 tablet 00:00: 00 lisinopril 2019- No 1mg 40 mg 1-07 tablet 00:00: 00 lovastatin 2019-1 No 1mg 20 mg 1-07 tablet 00:00: 00 Alcohol 2020- No 1 Pads 1-07 00:00: 00 Levemir 2019-1 No (3 mL) FlexTouch 1-07 U-100 00:00: Insulin 100 00 unit/mL (3 mL) subcutaneou s pen aspirin 81 2019- No 1mg mg 1-07 tablet,teressa 00:00: yed release 00 amlodipine 2020-1 No 1mg 10 mg 1-07 tablet 00:00: 00 lisinopril 2020-1 No 1mg 40 mg 1-07 tablet 00:00: [...] 00 unit/mL (3 mL) subcutaneou s pen lovastatin 2020-0 No 1mg 20 mg 1-21 [...] mg 2-09 tablet 00:00: 00 Januvia 50 2018-1 No 1mg mg tablet 0-15 00:00: 00 lovastatin 2019-1 No 1mg 20 mg 0-15 tablet 00:00: 00 aspirin 81 2018-1 No 1mg mg 0-15 tablet,teressa 00:00: yed release 00 amlodipine 2018-1 No 1mg 10 mg 0-15 tablet 00:00: 00 metoprolol 2019-1 No 1mg tartrate 0-15 100 mg 00:00: tablet 00 alendronate 2019-1 No 1mg 10 mg 0-15 tablet 00:00: 00 Janumet XR 2019-1 No 1mg 100 0-15 mg-1,000 mg 00:00: tablet,exte 00 nded release Januvia 50 2018-1 No 1mg mg tablet 0-15 00:00: 00 lovastatin 2019-1 No 1mg 20 mg 0-15 tablet 00:00: 00 aspirin 81 2018- No 1mg mg 0-15 tablet,teressa 00:00: yed release 00 amlodipine 2018- No 1mg 10 mg 0-15 tablet 00:00: 00 metoprolol 2019-1 No 1mg tartrate 0-15 100 mg 00:00: tablet 00 alendronate 2018- No 1mg 10 mg 0-15 tablet 00:00: 00 Janumet XR 2018- No 1mg 100 0-15 mg-1,000 mg 00:00: tablet,exte 00 nded release Januvia 50 2018- No 1mg mg tablet 0-15 00:00: 00 lovastatin 2018-1 No 1mg 20 mg 0-15 tablet 00:00: 00 aspirin 81 2018- No 1mg mg 0-15 tablet,teressa 00:00: yed release 00 amlodipine 2018- No 1mg 10 mg 0-15 tablet 00:00: 00 metoprolol 2018- No 1mg tartrate 0-15 100 mg 00:00: tablet 00 alendronate 2018- No 1mg 10 mg 0-15 tablet 00:00: 00 Janumet XR 2018- No 1mg 100 0-15 mg-1,000 mg 00:00: tablet,exte 00 nded release Januvia 50 2018- No 1mg mg tablet 0-15 00:00: 00 lovastatin 2018-1 No 1mg 20 mg 0-15 tablet 00:00: 00 aspirin 81 2018- No 1mg mg 0-15 tablet,teressa 00:00: yed release 00 amlodipine 2018- No 1mg 10 mg 0-15 tablet 00:00: 00 metoprolol 2018-1 No 1mg tartrate 0-15 100 mg 00:00: tablet 00 alendronate 2018-1 No 1mg 10 mg 0-15 tablet 00:00: 00 Janumet XR 2018-1 No 1mg 100 0-15 mg-1,000 mg 00:00: tablet,exte 00 nded release naproxen 2018-1 No 1mg 500 mg 0-01 tablet 00:00: 00 naproxen 2019-1 No 1mg 500 mg 0-01 tablet 00:00: 00 naproxen 2018- No 1mg 500 mg 0-01 tablet 00:00: 00 naproxen 2019-1 No 1mg 500 mg 0-01 tablet 00:00: 00 Alcohol 2019-0 No 1 Pads 8-20 00:00: 00 Alcohol 2019-0 No 1 Pads 8-20 00:00: 00 Alcohol 2019-0 No 1 Pads 8-20 00:00: 00 Alcohol 2019-0 No 1 Pads 8-20 00:00: 00 Osmanuvia 50 2019-0 No 1mg mg tablet 7-24 00:00: 00 Osmanuvia 50 2019-0 No 1mg mg tablet 724 00:00: 00 Januvia 50 2019-0 No 1mg mg tablet 724 00:00: 00 Januvia 50 2019-0 No 1mg mg tablet 724 00:00: 00 metoprolol 2019-0 No 1mg tartrate [...] 1mg 20 mg 4-30 tablet 00:00: 00 lovastatin 2019-0 [...] aspirin 81 2019-0 No 1mg mg 2-06 tablet,teresas 00:00: yed release 00 metoprolol 2019-0 No [...] mg 2-06 tablet,teressa 00:00: yed release 00 aspirin 81 [...] to ity o f gel 00:00: affected [place] 00 area twice Medical daily Branch Diclofenac 2018-0 Yes Apply Univer s Sodium 1 % 7-31 1gram to ity o f gel 00:00: affected [place] 00 area twice Medical daily Branch Diclofenac 2018-0 Yes Apply Univer s Sodium 1 % 7-31 1gram to ity o f gel 00:00: affected [place] 00 area twice Medical daily Branch aspirin [...] affected 00 area twice Medical daily Branch Diclofenac 2018-0 Yes Apply Univer s Sodium 1 % 4-04 1gram to ity o f gel 00:00: affected 00 area twice Medical daily Branch Diclofenac 2018-0 Yes Apply Univer s Sodium 1 % 4-04 1gram to ity o f gel 00:00: affected [place] 00 area twice Medical daily Branch ciprofloxac 2018-0 No 1mg in 500 mg 3-19 tablet 00:00: 00 ciprofloxac 2018-0 No 1mg in 500 mg 3-19 tablet 00:00: 00 ciprofloxac 2018-0 No 1mg in 500 mg 3-19 tablet 00:00: 00 ciprofloxac 2018-0 No 1mg in 500 mg 3-19 tablet 00:00: 00 ciprofloxac 2018-0 Yes 500mg Take 500 U nivers in HCl 500 3-19 mg by ity of mg tablet 00:00: mouth. [place] [facility] ciprofloxac 2018-0 Yes 500mg Take 500 U nivers in HCl 500 3-19 mg by ity of mg tablet 00:00: mouth. [place] [facility] ciprofloxac 2018-0 Yes 500mg Take 500 U nivers in HCl 500 3-19 mg by ity of mg tablet 00:00: mouth. [place] [facility] ciprofloxac 2018-0 Yes 500mg Take 500 U nivers in HCl 500 3-19 mg by ity of mg tablet 00:00: mouth. [place] [facility] atorvastati 2018-0 Yes 40mg Take 40 mg Univers n 20 mg 3-04 by mouth. ity of tablet 00:00: [place] [facility] nitrofurant 2018-0 Yes 100mg Take 100 U nivers oin 100 mg 3-04 mg by ity of capsule 00:00: mouth [place] daily. Medical Branch atorvastati 2018-0 Yes 40mg Take 40 mg Univers n 20 mg 3-04 by mouth. ity of tablet 00:00: [place] [facility] nitrofurant 2018-0 Yes 100mg Take 100 U nivers oin 100 mg 3-04 mg by ity of capsule 00:00: mouth [place] 00 daily. Medical Branch atorvastati Yes 40mg Take 40 mg Univers n 20 mg 3-04 by mouth. ity of tablet 00:00: Medical Branch nitrofurant Yes 100mg Take 100 U nivers oin 100 mg 3-04 mg by ity of capsule 00:00: mouth 00 daily. Medical Branch atorvastati Yes 40mg Take 40 mg Univers n 20 mg 3-04 by mouth. ity of tablet 00:00: Medical Branch nitrofurant Yes 100mg Take 100 U nivers oin 100 mg 3-04 mg by ity of capsule 00:00: mouth 00 daily. Medical Branch amLODIPine Yes 10mg Take 10 [...] DOS Medical VECES AL Branch D?A glipiZIDE 2018-0 Yes 10mg Take 10 mg Un rodger 10 mg 2-27 by mouth 2 ity of tablet 00:00: (two) [place] 00 times Medical daily. Branch aspirin 81 2018-0 No 1mg mg 2-27 tablet,teressa 00:00: yed release 00 metoprolol 2018-0 No 1mg tartrate 2-27 100 mg 00:00: tablet 00 naproxen 2018-0 No 1mg 500 mg 2-27 tablet 00:00: 00 glipizide 2018-0 No 1mg 10 mg 2-27 tablet 00:00: 00 amlodipine 2018-0 No 1mg 10 mg 2-27 tablet 00:00: 00 pantoprazol 2018-0 No 1mg e 40 mg 2-27 tablet,teressa 00:00: yed release 00 aspirin 81 2018-0 No 1mg mg 2-27 tablet,teressa 00:00: yed release 00 metoprolol 2018-0 No 1mg tartrate 2-27 100 mg 00:00: tablet 00 naproxen 2018-0 No 1mg 500 mg 2-27 tablet 00:00: 00 glipizide 2018-0 No 1mg 10 mg 2-27 tablet 00:00: 00 amlodipine 2018-0 No 1mg 10 mg 2-27 tablet 00:00: 00 pantoprazol 2018-0 No 1mg e 40 mg 2-27 tablet,teressa 00:00: yed release 00 aspirin 81 2018-0 No 1mg mg 2-27 tablet,teressa 00:00: yed release 00 metoprolol 2018-0 No 1mg tartrate 2-27 100 mg 00:00: tablet 00 naproxen 2018-0 No 1mg 500 mg 2-27 tablet 00:00: 00 glipizide 2018-0 No 1mg 10 mg 2-27 tablet 00:00: 00 amlodipine 2018-0 No 1mg 10 mg 2-27 tablet 00:00: 00 pantoprazol 2018-0 No 1mg e 40 mg 2-27 tablet,teressa 00:00: yed release 00 aspirin 81 2018-0 No 1mg mg 2-27 tablet,teressa 00:00: yed release 00 metoprolol 2018-0 No 1mg tartrate 2-27 100 mg 00:00: tablet 00 naproxen 2018-0 No 1mg 500 mg 2-27 tablet 00:00: 00 glipizide 2018-0 No 1mg 10 mg 2-27 tablet 00:00: 00 amlodipine No 1mg 10 mg 2-27 tablet 00:00: 00 pantoprazol No 1mg e 40 mg 2-27 tablet,teressa 00:00: yed release 00 SARAH PEN Yes [facility] NEEDLE 32 2-27 ity of gauge x 00:00: " [facility] amLODIPine Yes [...] 2-27 TABLETA ity o f iazide 00:00: TODEWITT [place] 100-12.5 mg 00 D? Medical per tablet [...] mouth ity o f tablet 00:00: daily. [place] 00 [facility] naproxen 2017- Yes 500mg Take 500 Univ ers 500 [...] 32 2-27 ity of gauge x 00:00: [place] " [facility] 00 [facility] VITAMIN D2 Yes TAKE 1 Unive rs 50,000 unit 2-14 CAPSULE ity o f capsule 00:00: ONCE A [place] 00 WEEK FOR Medical 13 WEEKS Branch VITAMIN D2 Yes TAKE 1 Unive rs 50,000 unit 2-14 CAPSULE ity o f capsule 00:00: ONCE A [place] WEEK FOR Medical 13 WEEKS Branch VITAMIN D2 Yes TAKE 1 Unive rs 50,000 unit 2-14 CAPSULE ity o f capsule 00:00: ONCE A [place] WEEK FOR Medical 13 WEEKS Branch VITAMIN D2 Yes TAKE 1 Unive rs 50,000 unit 2-14 CAPSULE ity o f capsule 00:00: ONCE A [place] WEEK FOR Medical 13 WEEKS Branch Vitamin D2 No 1unit 50,000 unit 2-14 capsule 00:00: 00 Vitamin D2 2018-0 No 1unit 50,000 unit 2-14 capsule 00:00: 00 Vitamin D2 2018-0 No 1unit 50,000 unit 2-14 capsule 00:00: 00 Vitamin D2 2018-0 No 1unit 50,000 unit 2-14 capsule 00:00: 00 alendronate 2018-0 Yes 10mg Take 10 mg [facility] 10 mg 2-13 by mouth ity of tablet 00:00: daily. [address] alendronate 2018-0 Yes 10mg Take 10 mg [facility] 10 mg 2-13 by mouth ity of tablet 00:00: daily. [address] alendronate 2018-0 Yes 10mg Take 10 mg [facility] 10 mg 2-13 by mouth ity of tablet 00:00: daily. [address] alendronate 2018-0 Yes 10mg Take 10 mg [facility] 10 mg 2-13 by mouth ity of tablet 00:00: daily. [address] alendronate 2018-0 No 1mg 10 mg 2-12 tablet 00:00: 00 alendronate 2018-0 No 1mg 10 mg 2-12 tablet 00:00: 00 alendronate 2018-0 No 1mg 10 mg 2-12 tablet 00:00: 00 alendronate 2018-0 No 1mg 10 mg 2-12 tablet 00:00: 00 aspirin 81 2016- No 1mg mg 1-28 tablet,teressa 00:00: yed release 00 glipizide 2017-1 No 1mg 10 mg 1-28 tablet 00:00: 00 pantoprazol 2017-1 No 1mg e 40 mg 1-28 tablet,teressa 00:00: yed release 00 amlodipine 2017-1 No 1mg 10 mg 1-28 tablet 00:00: 00 gabapentin 2017-1 No 1mg 100 mg 1-28 capsule 00:00: 00 aspirin 81 2017- No 1mg mg 1-28 tablet,teressa 00:00: yed release 00 glipizide 2017-1 No 1mg 10 mg 1-28 tablet 00:00: 00 pantoprazol 2017-1 No 1mg e 40 mg 1-28 tablet,teressa 00:00: yed release 00 amlodipine 2017-1 No 1mg 10 mg 1-28 tablet 00:00: 00 gabapentin 2017-1 No 1mg 100 mg 1-28 capsule 00:00: 00 aspirin 81 2017- No 1mg mg 1-28 tablet,teressa 00:00: yed release 00 glipizide 2017- No 1mg 10 mg 1-28 tablet 00:00: 00 pantoprazol 2017- No 1mg e 40 mg 1-28 tablet,teressa 00:00: yed release 00 amlodipine 2016- No 1mg 10 mg 1-28 tablet 00:00: 00 gabapentin 2017- No 1mg 100 mg 1-28 capsule 00:00: 00 aspirin 81 2016- No 1mg mg 1-28 tablet,teressa 00:00: yed release 00 glipizide 2017- No 1mg 10 mg 1-28 tablet 00:00: 00 pantoprazol 2017- No 1mg e 40 mg 1-28 tablet,teressa 00:00: yed release 00 amlodipine 2016- No 1mg 10 mg 1-28 tablet 00:00: 00 gabapentin 2016- No 1mg 100 mg 1-28 capsule 00:00: 00 pantoprazol 2016- No 1mg e 40 mg 0-30 tablet,teressa 00:00: yed release 00 gabapentin 2016- No 1mg 100 mg 0-30 capsule 00:00: 00 pantoprazol 2017- No 1mg e 40 mg 0-30 tablet,teressa 00:00: yed release 00 gabapentin 2017- No 1mg 100 mg 0-30 capsule 00:00: 00 pantoprazol 2017- No 1mg e 40 mg 0-30 tablet,teressa 00:00: yed release 00 gabapentin 2017- No 1mg 100 mg 0-30 capsule 00:00: 00 pantoprazol 2017- No 1mg e 40 mg 0-30 tablet,teressa 00:00: yed release 00 gabapentin 2017- No 1mg 100 mg 0-30 capsule 00:00: 00 aspirin 81 2016- No 1mg mg 0-24 tablet,teressa 00:00: yed release 00 naproxen 2017- No 1mg 500 mg 0-24 tablet 00:00: 00 glipizide 2016- No 1mg 10 mg 0-24 tablet 00:00: 00 amlodipine 2016- No 1mg 10 mg 0-24 tablet 00:00: 00 gabapentin 2016- No 1mg 100 mg 0-24 capsule 00:00: [...] 1mg 500 mg 4-24 tablet 00:00: 00 glipizide 2017-0 [...] 2mg 20 mg 4-24 tablet 00:00: 00 lovastatin 2017-0 [...] Date Status Commen ts Source Name Name Latoyacindy TEENAID-19 2021-08-24 Completed Vaccine 00:00:00 Myron COVID-19 2021-08-24 Completed Vaccine 00:00:00 Myron COVID-19 2021-08-24 Completed Vaccine 00:00:00 Moderna COVID-19 2021-08-24 Completed Vaccine 00:00:00 Moderna COVID-19 2020-10-26 Completed Vaccine 00:00:00 Moderna COVID-19 2020-10-26 Completed Vaccine 00:00:00 Moderna COVID-19 2020-10-26 Completed Vaccine 00:00:00 Moderna COVID-19 2020-10-26 Completed Vaccine 00:00:00 Moderna COVID-19 2020-09-15 Completed Vaccine 00:00:00 Moderna COVID-19 2020-09-15 Completed Vaccine 00:00:00 Moderna COVID-19 2020-09-15 Completed Vaccine 00:00:00 Moderna COVID-19 2020-09-15 Completed Vaccine 00:00:00 Influenza, seasonal, [...] Time Observation Value Comments Source BP Systolic 2022-03-08 10:40:00 157 mm[Hg] BP Diastolic 2022-03-08 10:40:00 95 mm[Hg] Weight Measured 2022-03-08 10:40:00 157.60 pounds Height Measured 2022-03-08 10:40:00 61.50 inches Body Temperature 2022-03-08 10:40:00 98.20 degrees Heart Rate 2022-03-08 10:40:00 109.00 /min Respiratory Rate 2022-03-08 10:40:00 17.00 /min BP Systolic 2022-02-08 10:30:00 145 mm[Hg] BP Diastolic 2022-02-08 10:30:00 86 mm[Hg] Weight Measured 2022-02-08 10:30:00 157.20 pounds Height Measured 2022-02-08 10:30:00 61.50 inches Body Temperature 2022-02-08 10:30:00 98.40 degrees Heart Rate 2022-02-08 10:30:00 111.00 /min Respiratory Rate 2022-02-08 10:30:00 17.00 /min BP Systolic 2022-01-04 14:48:00 134 mm[Hg] BP [...] Respiratory Rate 2021-10-26 14:34:00 18.00 /min BP Systolic 2021-09-20 14:53:00 146 mm[Hg] BP Diastolic 2021-09-20 14:53:00 81 mm[Hg] Weight Measured 2021-09-20 14:53:00 168.00 pounds Height Measured 2021-09-20 14:53:00 61.50 inches Body Temperature 2021-09-20 14:53:00 98.10 degrees Heart Rate 2021-09-20 14:53:00 70.00 /min Respiratory Rate 2021-09-20 14:53:00 17.00 /min BP Systolic 2021-08-24 13:58:00 140 mm[Hg] BP [...] Procedure Date / Time Performed Performing Clinician Galen preston XR ANKLE 3+ VW LEFT 2020-10-14 18:55:23 [facility] 2020-10-14 18:55:12 Leslie Martinez [facility] XR KNEE 3 VW LEFT 2020-10-14 18:54:59 Leslie Martinez [facility] ASSIGNMENT OF BENEFITS 2020-10-14 18:28:36 Doctor Unassigned, No [facility] Ekg 2019-07-08 00:00:00 Plan of Care Planned Activity Planned Date Details Comments Source Goal Plan of Care Note [code = 94882-9] Goal Plan of Care Note [code = 93898-5] Goal Plan of Care Note [code = 36425-9] Goal Plan of Care Note [code = 96727-2] Goal Plan of Care Note [code = 85460-4] Goal Plan of Care Note [code = 35034-0] Goal Plan of Care Note [code = 95352-6] Goal Plan of Care Note [code = 67201-2] Goal Plan of Care Note [code = 43063-8] Goal Plan of Care Note [code = 67323-1] Goal Plan of Care Note [code = 47918-8] Goal Plan of Care Note [code = 47648-0] Goal Plan of Care Note [code = 73987-9] Goal Plan of Care Note [code = 51670-3] Goal Plan of Care Note [code = 06576-5] Goal Plan of Care Note [code = 98976-3] Goal Plan of Care Note [code = 72216-3] Goal Plan of Care Note [code = 71232-5] Goal Plan of Care Note [code = 93327-7] Goal Plan of Care Note [code = 45275-4] Goal Plan of Care Note [code = 77396-0] Goal Plan of Care Note [code = 87644-8] Goal Plan of Care Note [code = 38028-3] Goal Plan of Care Note [code = 49519-7] Goal Plan of Care Note [code = 91267-8] Goal Plan of Care Note [code = 81074-5] Goal Plan of Care Note [code = 46136-6] Goal Plan of Care Note [code = 20589-6] Goal Plan of Care Note [code = 97295-2] Goal Plan of Care Note [code = 75772-8] Goal Plan of Care Note [code = 33054-2] Goal Plan of Care Note [code = 24985-5] Goal Plan of Care Note [code = 95731-9] Goal Plan of Care Note [code = 23987-1] Goal Plan of Care Note [code = 27197-4] Goal Plan of Care Note [code = 50244-6] Goal Plan of Care Note [code = 11673-5] Goal Plan of Care Note [code = 70415-3] Goal Plan of Care Note [code = 23629-5] Goal Plan of Care Note [code = 62860-3] Goal Plan of Care Note [code = 10887-4] Goal Plan of Care Note [code = 15142-2] Goal Plan of Care Note [code = 40279-1] Goal Plan of Care Note [code = 32994-3] Goal Plan of Care Note [code = 71808-0] Goal Plan of Care Note [code = 65400-7] Goal Plan of Care Note [code = 25537-3] Goal Plan of Care Note [code = 06858-6] Goal Plan of Care Note [code = 30141-0] Goal Plan of Care Note [code = 32483-2] Goal Plan of Care Note [code = 98328-5] Goal Plan of Care Note [code = 49386-4] Goal Plan of Care Note [code = 65727-3] Goal Plan of Care Note [code = 18752-8] Goal Plan of Care Note [code = 86622-5] Goal Plan of Care Note [code = 37620-1] Goal Plan of Care Note [code = 52205-8] Goal Plan of Care Note [code = 09997-4] Goal Plan of Care Note [code = 68249-7] Goal Plan of Care Note [code = 04777-0] Goal Plan of Care Note [code = 65667-8] Goal Plan of Care Note [code = 94846-5] Goal Plan of Care Note [code = 87818-8] Goal Plan of Care Note [code = 33696-5] Goal Plan of Care Note [code = 03959-0] Goal Plan of Care Note [code = 44880-4] Goal Plan of Care Note [code = 23658-4] Goal Plan of Care Note [code = 74622-8] Goal Plan of Care Note [code = 55988-8] Goal Plan of Care Note [code = 87041-0] Goal Plan of Care Note [code = 36873-9] Goal Plan of Care Note [code = 34564-2] Goal Plan of Care Note [code = 79440-0] Goal Plan of Care Note [code = 29611-3] Goal Plan of Care Note [code = 22409-7] Goal Plan of Care Note [code = 33800-1] Goal Plan of Care Note [code = 10505-3] Goal Plan of Care Note [code = 76134-2] Goal Plan of Care Note [code = 83650-7] Goal Plan of Care Note [code = 56580-0] Goal Plan of Care Note [code = 77566-7] Goal Plan of Care Note [code = 16981-7] Goal Plan of Care Note [code = 89694-7] Goal Plan of Care Note [code = 31133-3] Goal Plan of Care Note [code = 35391-7] Goal Plan of Care Note [code = 15676-9] Goal Plan of Care Note [code = 49162-9] Goal Plan of Care Note [code = 97551-9] Goal Plan of Care Note [code = 31192-8] Goal Plan of Care Note [code = 98397-5] Goal Plan of Care Note [code = 98990-2] Goal Plan of Care Note [code = 43336-5] Goal Plan of Care Note [code = 00482-0] Goal Plan of Care Note [code = 84367-8] Goal Plan of Care Note [code = 73563-8] Goal Plan of Care Note [code = 28641-8] Goal Plan of Care Note [code = 21617-5] Goal Plan of Care Note [code = 84724-6] Goal Plan of Care Note [code = 20353-7] Goal Plan of Care Note [code = 47972-4] Goal Plan of Care Note [code = 61111-1] Goal Plan of Care Note [code = 51879-7] Goal Plan of Care Note [code = 06624-1] Goal Plan of Care Note [code = 72248-6] Goal Plan of Care Note [code = 38542-6] Goal Plan of Care Note [code = 00389-3] Goal Plan of Care Note [code = 79738-1] Goal Plan of Care Note [code = 87453-6] Goal Plan of Care Note [code = 95861-8] Goal Plan of Care Note [code = 93589-0] Goal Plan of Care Note [code = 48187-0] Goal Plan of Care Note [code = 46065-4] Goal Plan of Care Note [code = 72387-6] Goal Plan of Care Note [code = 99954-3] Goal Plan of Care Note [code = 06404-9] Goal Plan of Care Note [code = 06186-7] Goal Plan of Care Note [code = 84163-3] Goal Plan of Care Note [code = 63992-7] Goal Plan of Care Note [code = 07968-8] Goal Plan of Care Note [code = 23011-8] Goal Plan of Care Note [code = 71138-1] Goal Plan of Care Note [code = 67330-0] Goal Plan of Care Note [code = 46240-8] Goal Plan of Care Note [code = 81116-4] Goal Plan of Care Note [code = 64755-4] Goal Plan of Care Note [code = 58748-8] Goal Plan of Care Note [code = 75024-9] Goal Plan of Care Note [code = 77405-6] Goal Plan of Care Note [code = 49097-6] Goal Plan of Care Note [code = 72033-1] Goal Plan of Care Note [code = 19890-3] Goal Plan of Care Note [code = 28233-7] Goal Plan of Care Note [code = 27008-0] Goal Plan of Care Note [code = 96677-4] Goal Plan of Care Note [code = 96755-7] Goal Plan of Care Note [code = 22628-5] Goal Plan of Care Note [code = 95766-8] Goal Plan of Care Note [code = 85631-5] Goal Plan of Care Note [code = 68909-8] Goal Plan of Care Note [code = 97074-3] Goal Plan of Care Note [code = 14660-0] Goal Plan of Care Note [code = 52391-6] Goal Plan of Care Note [code = 73384-6] Goal Plan of Care Note [code = 19970-4] Goal Plan of Care Note [code = 79158-8] Goal Plan of Care Note [code = 16714-1] Encounters Start End Encounter Admission Attending Care Care Encounter Source Date/Time Date/Time Type Type Clinicians Facility Department ID 2022-03-08 2022-03-08 Outpatient [facility] [id number] Madhu 10:30:25 10:30:25 1005 F Ludin 2022-03-08 2022-03-08 Outpatient [id number] 10n310-7 00:00:00 00:00:00 Visit 51z7-7pt5 6k0-6ht9-0 -72m0-n3f 4a2-h4i25z 03dwm3o7j bf4e6c 2022-02-08 2022-02-08 Outpatient [id number] 39cfed-c 00:00:00 00:00:00 Visit s49b-25i0 47d-41e8-a -j216-9e6 655-8l1362 8324pj10k 7ff23b 2022-01-04 2022-01-04 Outpatient [id number] 8d o4t057-6 00:00:00 00:00:00 Visit 6883-9387 388-4690-8 -2ln2-6kg ed5-5ca68b 77w8656ez 6810ce 2021-12-06 2021-12-06 Outpatient [id number]-[id number] 00:00:00 00:00:00 Visit fec0-4c02 ec0-4c02-a -l478-457 538-264fda wlmi9pw73 e1ba61 2020-10-14 2020-10-14 [facility] [id number] [employer] 13:34:04 23:59:00 Encounter Leslie Alfred 350.1.13.10 ghulam [place] 4.2.7.2.686 [facility] [id number] [place] [address] [place] 2020-10-14 2020-10-14 [facility] 1.2.840.114 [id number] [employer] 13:33:50 13:33:50 Encounter Leslie Simon 350.1.13.10 [facility]y of [place] [facility]7.2.686 [phone] [address] 2020-10-14 2020-10-14 [facility] 1.2.840.114 [id number] [employer] 13:30:00 13:32:00 Encounter Leslie Simon 350.1.13.10 ity of [place] 4.2.7.2.686 [facility] [id number] [address] 2020-10-14 2020-10-14 Outpatient [facility] [id number] [employer] 00:00:00 00:00:00 LESLIE lozano [facility] 2020-10-14 2020-10-14 Orders Doctor ANCELMO 1.2.840.114 [id number] [employer] 00:00:00 00:00:00 Only Unassigned, RACHID 350.1.13.10 ity of [place] [facility] 4.2.7.2.686 Fredy as [phone] [address] Results Test Description Test Time Test Comments Results Result Comments Source COMPREHENSIVE METABOLIC PANEL 2022-02-09 06:08:16 Test Item Value Reference Range Interpretation Comme nts GLUCOSE (test code = 2217) 205 MG/DL 70-99 H BUN (test code = 2208) 23 MG/DL 8-23 CREATININE (test code = 1.67 MG/DL 0.60-1.30 H 2213) eGFR (2020 CKD-EPI) (test 32 ML/MIN/1.73 >60 L code = 13042) CALC BUN/CREAT (test code = 14 RATIO 6-2234) SODIUM (test code = 2231) 143 MEQ/L 133-146 POTASSIUM (test code = 2228) 4.2 MEQ/L 3.5-5.4 CHLORIDE (test code = 2215) 107 MEQ/L 95-107 CARBON DIOXIDE (test code = 22 MEQ/L -2205) CALCIUM (test code = 2209) 8.9 MG/DL 8.5-10.5 PROTEIN, TOTAL (test code = 7.4 G/DL 6.1-8.3 2228) ALBUMIN (test code = 2201) 4.1 G/DL 3.5-5.2 CALC GLOBULIN (test code = 3.3 G/DL 1.9-3.7 2239) CALC A/G RATIO (test code = 1.2 RATIO 1.0-2.6 2233) BILIRUBIN, TOTAL (test code 0.3 MG/DL See_Comment [Automated message] The = 2206) system which ge nerated this result transmit ellie reference range: <=1.2. T he reference range was not u sed to interpret this result as normal/abnormal . ALKALINE PHOSPHATASE (test 57 U/L 40-142 code = 2204) AST (test code = 2218) 38 U/L 9-40 ALT (test code = 2219) 21 U/L 5-40 LIPID [id number] 06:08:16 Test Item Value Reference Range Interpretation Comments CHOLESTEROL (test 160 MG/DL <200 code = 2210) TRIGLYCERIDES (test 129 MG/DL <150 code = 2232) HDL CHOLESTEROL (test 55 MG/DL >39 code = 2220) CALC LDL CHOL (test 82 MG/DL <100 NOTE: C ALCULATED LDL code = 2237) IS BASED ON LIZET-MOSQUERA METHOD WHICHINCLUDES ADJUSTABLE TRIGLYCERIDE:VL DL CHOLESTEROL RAT IO.THIS FACTOR VARIES B Y MEASURED TRIGLY CERIDE AND NON-HDLCHOL ESTEROL CONCENTRATIONS WITH INCREASED CALCU LATED LDL SEENIN HIGH ER TRIGLYCERIDE OR LOWER NON-HDL SPECIME NS. FOR MOREINFORMATION , SEE CLIENT ANNOUNCE MENT AT [email or web address] [email or web address] LDL/HDL 1.49 RATIO <3.22 UNLESS O THERWISE (test code = 2238) INDICATED , ALL TESTING PERFORMED [facility], I [address]. [id number] [place] [address] [facility] DIRECTOR: KEN NEWMAN M.D. CLIA NUMBER [id number] CAP ACCREDITATION N O. [id number] HEMOGLOBIN [id number] 04:41:39 Test Item Value Reference Range Interpretation Comments HEMOGLOBIN A1c (test 8.3 % 4.2-5.6 H AMERIC AN DIABETES code = 40475) ASSOCIATION IDELINES FOR HGB A1C: PREDIABETES/INC REASED [...] ALTERN ATE TESTING OR LABORATORY C ONSULTATION. CBC W/AUTO DIFF WITH [id number] 03:44:15 Test Item Value Reference Range Interpretation Comments WBC (test code = 8.7 K/UL 3.5-11.0 1001) RBC (test code = 3.97 M/UL 3.80-5.40 1002) HEMOGLOBIN (test code 12.2 G/DL 11.5-15.5 = 1003) HEMATOCRIT (test code 35.2 % 34.0-45.0 = 1004) MCV (test code = 88.7 fL 80.0-99.0 1005) MCH (test code = 30.7 PG 25.0-33.0 1006) MCHC (test code = 34.7 G/DL 31.0-36.0 1007) RDW (test code = 13.4 % 11.5-15.0 1038) NEUTROPHILS (test 60.6 % code = 1008) LYMPHOCYTES (test 29.1 % code = 1010) MONOCYTES (test code 6.9 % = 1011) EOSINOPHILS (test 2.1 % code = 1012) BASOPHILS (test code 0.5 % = 1013) IMMATURE GRANULOCYTES 0.8 % (test code = 1036) NUCLEATED RBCS (test 0.0 /100 WBC'S See_Comment [Aut omated code = 1065) message] The sy stem which generated this result transmitted reference range : 0.0. The refere nce range was not u sed to interpret th is result as normal/abnormal . PLATELET COUNT (test 314 K/UL 130-400 code = 1015) ABSOLUTE NEUTROPHILS 5.26 K/UL 1.50-7.50 (test code = 1066) ABSOLUTE LYMPHOCYTES 2.53 K/UL 1.00-4.00 (test code = 1067) ABSOLUTE MONOCYTES 0.60 K/UL 0.20-1.00 (test code = 1068) ABSOLUTE EOSINOPHILS 0.18 K/UL 0.00-0.50 (test code = 1040) ABSOLUTE BASOPHILS 0.04 K/UL 0.00-0.20 (test code = 1069) ABS IMMATURE 0.07 K/UL 0.00-0.10 GRANULOCYTES (test code = 1020) ABS NUCLEATED RBCS 0.00 K/UL 0.00-0.11 (test code = 05490) HEMOGLOBIN [id number] 00:00:00 Test Item Value Reference Range Interpretation Comments HEMOGLOBIN A1c (test code = 16062) 8.3 % HEMOGLOBIN [id number] 00:00:00 Test Item Value Reference Range Interpretation Comments HEMOGLOBIN A1c (test code = 74349) 8.3 % HEMOGLOBIN [id number] 00:00:00 Test Item Value Reference Range Interpretation Comments HEMOGLOBIN A1c (test code = 47722) 8.3 % CBC W/AUTO [id number] 00:00:00 Test Item Value Reference Range Interpretation Comments WBC (test code = 1001) 8.7 K/UL RBC (test code = 1002) 3.97 M/UL HEMOGLOBIN (test code = 1003) 12.2 G/DL HEMATOCRIT (test code = 1004) 35.2 % MCV (test code = 1005) 88.7 fL MCH (test code = 1006) 30.7 PG MCHC (test code = 1007) 34.7 G/DL RDW (test code = 1038) 13.4 % NEUTROPHILS (test code = 1008) 60.6 % LYMPHOCYTES (test code = 1010) 29.1 % MONOCYTES (test code = 1011) 6.9 % EOSINOPHILS (test code = 1012) 2.1 % BASOPHILS (test code = 1013) 0.5 % IMMATURE GRANULOCYTES (test 0.8 % code = 1036) NUCLEATED RBCS (test code = 0.0 /100WBC'S 1065) PLATELET COUNT (test code = 314 K/UL 1015) ABSOLUTE NEUTROPHILS (test code 5.26 K/UL = 1066) ABSOLUTE LYMPHOCYTES (test code 2.53 K/UL = 1067) ABSOLUTE MONOCYTES (test code = 0.60 K/UL 1068) ABSOLUTE EOSINOPHILS (test code 0.18 K/UL = 1040) ABSOLUTE BASOPHILS (test code = 0.04 K/UL 1069) ABS IMMATURE GRANULOCYTES (test 0.07 K/UL code = 1020) ABS NUCLEATED RBCS (test code = 0.00 K/UL 28090) CBC W/AUTO [id number] 00:00:00 Test Item Value Reference Range Interpretation Comments WBC (test code = 1001) 8.7 K/UL RBC (test code = 1002) 3.97 M/UL HEMOGLOBIN (test code = 1003) 12.2 G/DL HEMATOCRIT (test code = 1004) 35.2 % MCV (test code = 1005) 88.7 fL MCH (test code = 1006) 30.7 PG MCHC (test code = 1007) 34.7 G/DL RDW (test code = 1038) 13.4 % NEUTROPHILS (test code = 1008) 60.6 % LYMPHOCYTES (test code = 1010) 29.1 % MONOCYTES (test code = 1011) 6.9 % EOSINOPHILS (test code = 1012) 2.1 % BASOPHILS (test code = 1013) 0.5 % IMMATURE GRANULOCYTES (test 0.8 % code = 1036) NUCLEATED RBCS (test code = 0.0 /100WBC'S 1065) PLATELET COUNT (test code = 314 K/UL 1015) ABSOLUTE NEUTROPHILS (test code 5.26 K/UL = 1066) ABSOLUTE LYMPHOCYTES (test code 2.53 K/UL = 1067) ABSOLUTE MONOCYTES (test code = 0.60 K/UL 1068) ABSOLUTE EOSINOPHILS (test code 0.18 K/UL = 1040) ABSOLUTE BASOPHILS (test code = 0.04 K/UL 1069) ABS IMMATURE GRANULOCYTES (test 0.07 K/UL code = 1020) ABS NUCLEATED RBCS (test code = 0.00 K/UL 46726) CBC W/AUTO [id number] 00:00:00 Test Item Value Reference Range Interpretation Comments WBC (test code = 1001) 8.7 K/UL RBC (test code = 1002) 3.97 M/UL HEMOGLOBIN (test code = 1003) 12.2 G/DL HEMATOCRIT (test code = 1004) 35.2 % MCV (test code = 1005) 88.7 fL MCH (test code = 1006) 30.7 PG MCHC (test code = 1007) 34.7 G/DL RDW (test code = 1038) 13.4 % NEUTROPHILS (test code = 1008) 60.6 % LYMPHOCYTES (test code = 1010) 29.1 % MONOCYTES (test code = 1011) 6.9 % EOSINOPHILS (test code = 1012) 2.1 % BASOPHILS (test code = 1013) 0.5 % IMMATURE GRANULOCYTES (test 0.8 % code = 1036) NUCLEATED RBCS (test code = 0.0 /100WBC'S 1065) PLATELET COUNT (test code = 314 K/UL 1015) ABSOLUTE NEUTROPHILS (test code 5.26 K/UL = 1066) ABSOLUTE LYMPHOCYTES (test code 2.53 K/UL = 1067) ABSOLUTE MONOCYTES (test code = 0.60 K/UL 1068) ABSOLUTE EOSINOPHILS (test code 0.18 K/UL = 1040) ABSOLUTE BASOPHILS (test code = 0.04 K/UL 1069) ABS IMMATURE GRANULOCYTES (test 0.07 K/UL code = 1020) ABS NUCLEATED RBCS (test code = 0.00 K/UL 87272) COMPREHENSIVE METABOLIC [id number] 00:00:00 Test Item Value Reference Range Interpretation Comments GLUCOSE (test code = 2217) 205 MG/DL BUN (test code = 2208) 23 MG/DL CREATININE (test code = 2214) 1.67 MG/DL eGFR (2020 CKD-EPI) (test code 32 ML/MIN/1.73 = 48333) CALC BUN/CREAT (test code = 14 RATIO 2235) SODIUM (test code = 2231) 143 MEQ/L POTASSIUM (test code = 2228) 4.2 MEQ/L CHLORIDE (test code = 2215) 107 MEQ/L CARBON DIOXIDE (test code = 22 MEQ/L 2206) CALCIUM (test code = 2209) 8.9 MG/DL PROTEIN, TOTAL (test code = 7.4 G/DL 222) ALBUMIN (test code = 2201) 4.1 G/DL CALC GLOBULIN (test code = 3.3 G/DL 2240) CALC A/G RATIO (test code = 1.2 RATIO 2234) BILIRUBIN, TOTAL (test code = 0.3 MG/DL 2207) ALKALINE PHOSPHATASE (test 57 U/L code = 2204) AST (test code = 2218) 38 U/L ALT (test code = 2219) 21 U/L COMPREHENSIVE METABOLIC [id number] 00:00:00 Test Item Value Reference Range Interpretation Comments GLUCOSE (test code = 2217) 205 MG/DL BUN (test code = 2208) 23 MG/DL CREATININE (test code = 2214) 1.67 MG/DL eGFR (2020 CKD-EPI) (test code 32 ML/MIN/1.73 = 07631) CALC BUN/CREAT (test code = 14 RATIO 2235) SODIUM (test code = 2231) 143 MEQ/L POTASSIUM (test code = 2228) 4.2 MEQ/L CHLORIDE (test code = 2215) 107 MEQ/L CARBON DIOXIDE (test code = 22 MEQ/L 2205) CALCIUM (test code = 2209) 8.9 MG/DL PROTEIN, TOTAL (test code = 7.4 G/DL 2228) ALBUMIN (test code = 2201) 4.1 G/DL CALC GLOBULIN (test code = 3.3 G/DL 2239) CALC A/G RATIO (test code = 1.2 RATIO 2233) BILIRUBIN, TOTAL (test code = 0.3 MG/DL 2206) ALKALINE PHOSPHATASE (test 57 U/L code = 2204) AST (test code = 2218) 38 U/L ALT (test code = 2219) 21 U/L LIPID [id number] 00:00:00 Test Item Value Reference Range Interpretation Comments CHOLESTEROL (test code = 2210) 160 MG/DL TRIGLYCERIDES (test code = 2232) 129 MG/DL HDL CHOLESTEROL (test code = 2220) 55 MG/DL CALC LDL CHOL (test code = 2237) 82 MG/DL RISK RATIO LDL/HDL (test code = 1.49 RATIO 2238) LIPID [id number] 00:00:00 Test Item Value Reference Range Interpretation Comments CHOLESTEROL (test code = 2210) 160 MG/DL TRIGLYCERIDES (test code = 2232) 129 MG/DL HDL CHOLESTEROL (test code = 2220) 55 MG/DL CALC LDL CHOL (test code = 2237) 82 MG/DL RISK RATIO LDL/HDL (test code = 1.49 RATIO 2238) HEMOGLOBIN [id number] 00:00:00 Test Item Value Reference Range Interpretation Comments HEMOGLOBIN A1c (test code = 61246) 8.3 % HEMOGLOBIN [id number] 00:00:00 Test Item Value Reference Range Interpretation Comments HEMOGLOBIN A1c (test code = 62571) 8.3 % HEMOGLOBIN [id number] 00:00:00 Test Item Value Reference Range Interpretation Comments HEMOGLOBIN A1c (test code = 62750) 8.3 % CBC W/AUTO [id number] 00:00:00 Test Item Value Reference Range Interpretation Comments WBC (test code = 1001) 8.7 K/UL RBC (test code = 1002) 3.97 M/UL HEMOGLOBIN (test code = 1003) 12.2 G/DL HEMATOCRIT (test code = 1004) 35.2 % MCV (test code = 1005) 88.7 fL MCH (test code = 1006) 30.7 PG MCHC (test code = 1007) 34.7 G/DL RDW (test code = 1038) 13.4 % NEUTROPHILS (test code = 1008) 60.6 % LYMPHOCYTES (test code = 1010) 29.1 % MONOCYTES (test code = 1011) 6.9 % EOSINOPHILS (test code = 1012) 2.1 % BASOPHILS (test code = 1013) 0.5 % IMMATURE GRANULOCYTES (test 0.8 % code = 1036) NUCLEATED RBCS (test code = 0.0 /100WBC'S 1065) PLATELET COUNT (test code = 314 K/UL 1015) ABSOLUTE NEUTROPHILS (test code 5.26 K/UL = 1066) ABSOLUTE LYMPHOCYTES (test code 2.53 K/UL = 1067) ABSOLUTE MONOCYTES (test code = 0.60 K/UL 1068) ABSOLUTE EOSINOPHILS (test code 0.18 K/UL = 1040) ABSOLUTE BASOPHILS (test code = 0.04 K/UL 1069) ABS IMMATURE GRANULOCYTES (test 0.07 K/UL code = 1020) ABS NUCLEATED RBCS (test code = 0.00 K/UL 94668) CBC W/AUTO [id number] 00:00:00 Test Item Value Reference Range Interpretation Comments WBC (test code = 1001) 8.7 K/UL RBC (test code = 1002) 3.97 M/UL HEMOGLOBIN (test code = 1003) 12.2 G/DL HEMATOCRIT (test code = 1004) 35.2 % MCV (test code = 1005) 88.7 fL MCH (test code = 1006) 30.7 PG MCHC (test code = 1007) 34.7 G/DL RDW (test code = 1038) 13.4 % NEUTROPHILS (test code = 1008) 60.6 % LYMPHOCYTES (test code = 1010) 29.1 % MONOCYTES (test code = 1011) 6.9 % EOSINOPHILS (test code = 1012) 2.1 % BASOPHILS (test code = 1013) 0.5 % IMMATURE GRANULOCYTES (test 0.8 % code = 1036) NUCLEATED RBCS (test code = 0.0 /100WBC'S 1065) PLATELET COUNT (test code = 314 K/UL 1015) ABSOLUTE NEUTROPHILS (test code 5.26 K/UL = 1066) ABSOLUTE LYMPHOCYTES (test code 2.53 K/UL = 1067) ABSOLUTE MONOCYTES (test code = 0.60 K/UL 1068) ABSOLUTE EOSINOPHILS (test code 0.18 K/UL = 1040) ABSOLUTE BASOPHILS (test code = 0.04 K/UL 1069) ABS IMMATURE GRANULOCYTES (test 0.07 K/UL code = 1020) ABS NUCLEATED RBCS (test code = 0.00 K/UL 92714) CBC W/AUTO [id number] 00:00:00 Test Item Value Reference Range Interpretation Comments WBC (test code = 1001) 8.7 K/UL RBC (test code = 1002) 3.97 M/UL HEMOGLOBIN (test code = 1003) 12.2 G/DL HEMATOCRIT (test code = 1004) 35.2 % MCV (test code = 1005) 88.7 fL MCH (test code = 1006) 30.7 PG MCHC (test code = 1007) 34.7 G/DL RDW (test code = 1038) 13.4 % NEUTROPHILS (test code = 1008) 60.6 % LYMPHOCYTES (test code = 1010) 29.1 % MONOCYTES (test code = 1011) 6.9 % EOSINOPHILS (test code = 1012) 2.1 % BASOPHILS (test code = 1013) 0.5 % IMMATURE GRANULOCYTES (test 0.8 % code = 1036) NUCLEATED RBCS (test code = 0.0 /100WBC'S 1065) PLATELET COUNT (test code = 314 K/UL 1015) ABSOLUTE NEUTROPHILS (test code 5.26 K/UL = 1066) ABSOLUTE LYMPHOCYTES (test code 2.53 K/UL = 1067) ABSOLUTE MONOCYTES (test code = 0.60 K/UL 1068) ABSOLUTE EOSINOPHILS (test code 0.18 K/UL = 1040) ABSOLUTE BASOPHILS (test code = 0.04 K/UL 1069) ABS IMMATURE GRANULOCYTES (test 0.07 K/UL code = 1020) ABS NUCLEATED RBCS (test code = 0.00 K/UL 65884) COMPREHENSIVE METABOLIC [id number] 00:00:00 Test Item Value Reference Range Interpretation Comments GLUCOSE (test code = 2217) 205 MG/DL BUN (test code = 2208) 23 MG/DL CREATININE (test code = 2214) 1.67 MG/DL eGFR (2020 CKD-EPI) (test code 32 ML/MIN/1.73 = 50140) CALC BUN/CREAT (test code = 14 RATIO 2235) SODIUM (test code = 2231) 143 MEQ/L POTASSIUM (test code = 2228) 4.2 MEQ/L CHLORIDE (test code = 2215) 107 MEQ/L CARBON DIOXIDE (test code = 22 MEQ/L 2206) CALCIUM (test code = 2209) 8.9 MG/DL PROTEIN, TOTAL (test code = 7.4 G/DL 2228) ALBUMIN (test code = 2201) 4.1 G/DL CALC GLOBULIN (test code = 3.3 G/DL 2240) CALC A/G RATIO (test code = 1.2 RATIO 2234) BILIRUBIN, TOTAL (test code = 0.3 MG/DL 2206) ALKALINE PHOSPHATASE (test 57 U/L code = 2204) AST (test code = 2218) 38 U/L ALT (test code = 2219) 21 U/L COMPREHENSIVE METABOLIC [id number] 00:00:00 Test Item Value Reference Range Interpretation Comments GLUCOSE (test code = 2217) 205 MG/DL BUN (test code = 2208) 23 MG/DL CREATININE (test code = 2214) 1.67 MG/DL eGFR (2020 CKD-EPI) (test code 32 ML/MIN/1.73 = 24194) CALC BUN/CREAT (test code = 14 RATIO 2235) SODIUM (test code = 2231) 143 MEQ/L POTASSIUM (test code = 2228) 4.2 MEQ/L CHLORIDE (test code = 2215) 107 MEQ/L CARBON DIOXIDE (test code = 22 MEQ/L 2206) CALCIUM (test code = 2209) 8.9 MG/DL PROTEIN, TOTAL (test code = 7.4 G/DL 2228) ALBUMIN (test code = 2201) 4.1 G/DL CALC GLOBULIN (test code = 3.3 G/DL 0) CALC A/G RATIO (test code = 1.2 RATIO 2234) BILIRUBIN, TOTAL (test code = 0.3 MG/DL 2206) ALKALINE PHOSPHATASE (test 57 U/L code = 2204) AST (test code = 2218) 38 U/L ALT (test code = 2219) 21 U/L LIPID [id number] 00:00:00 Test Item Value Reference Range Interpretation Comments CHOLESTEROL (test code = 2210) 160 MG/DL TRIGLYCERIDES (test code = 2232) 129 MG/DL HDL CHOLESTEROL (test code = 2220) 55 MG/DL CALC LDL CHOL (test code = 2237) 82 MG/DL RISK RATIO LDL/HDL (test code = 1.49 RATIO 2238) LIPID [id number] 00:00:00 Test Item Value Reference Range Interpretation Comments CHOLESTEROL (test code = 2210) 160 MG/DL TRIGLYCERIDES (test code = 2232) 129 MG/DL HDL CHOLESTEROL (test code = 2220) 55 MG/DL CALC LDL CHOL (test code = 2237) 82 MG/DL RISK RATIO LDL/HDL (test code = 1.49 RATIO 2238) CULTURE, [id number] 14:31:20SPECIMEN NUMBER: [id number] CULTURE, URINE SPECIMEN NUMBER: [id number] SPECIMEN COMMENT: URINE SOURCE:URINE REPORT STATUS: FINAL ISOLATE NUMBER 1: ORGANISM: 01/06/2022 >100,000 CFU/ML GRAM NEGATIVE BA CILLI IDENTIFICATION: 01/07/2022 KLEBSIELLA PNEUMONIAE K. PNEUMONIAE AMOXICILLIN/CA SENSITIVE <=8/4AMPICILLIN RESISTANT >16CEFAZOLIN SENSITIVE <=2CEFTRIAXONE SENSITIVE <=1CIPROFLOXACIN SENSITIVE <=1LEVOFLOXACIN SENSITIVE <=2NITROFURANTOIN RESISTANT >64PIP/TAZOBAC SENSITIVE <=16TETRACYCLINE SENSITIVE <=4TOBRAMYCIN SENSITIVE <=4TRIMETH/SULFA SENSITIVE <=2/38 NOTE: NUMBERS DISPLAYED REPRESENT MINIMUM INHIBITORY CONCENTRATION (MARTA) WHICH IS EXPRESSED IN MCG/ML. UNLESS OTHERWISE INDICATED, ALL TESTING PERFORMED [facility] [address] [place] [address] CORRESPONDENCE ANALYST: KEN NEWMAN M.D. CLIA NUMBER [id number] [place]. [id number], [id number] 00:00:00 Test Item Value Reference Range Interpretation Comments CULTURE, URINE (test SPECIMEN NUMBER: code = 40271) [id number] CULTURE, [id number] 00:00:00 Test Item Value Reference Range Interpretation Comments CULTURE, URINE (test SPECIMEN NUMBER: code = 23247) [id number] CULTURE, [id number] 00:00:00 Test Item Value Reference Range Interpretation Comments CULTURE, URINE (test SPECIMEN NUMBER: code = 09421) [id number] CULTURE, [id number] 00:00:00 Test Item Value Reference Range Interpretation Comments CULTURE, URINE (test SPECIMEN NUMBER: code = 84084) [id number] OCCULT BLD,FECAL,IMMUNOASSAY [id number] 16:34:09 Test Item Value Reference Range Interpretation Comments OCCULT BLD, FECAL NEGATIVE NEGATIVE Note: Spe cimen received (test code = 57859) in an ex pired collection system. Results and details of anal ysis reviewed by [facility] IRIS MASSEY M.D. UNLESS OTHERWIS E INDICATED, ALL TESTING PERFORMED [facility] PATHOLOGY [facility], [facility]. [address] [place] [address] DIRECTOR: KEN NEWMAN M.D. CLIA NUMBER [id number] CAP ACCREDITATION N O. [id number] OCCULT BLD,FECAL,IMMUNOASSAY [id number] 00:00:00 Test Item Value Reference Range Interpretation Comments OCCULT BLD, FECAL (test code = NEGATIVE 70843) OCCULT BLD,FECAL,IMMUNOASSAY [id number] 00:00:00 Test Item Value Reference Range Interpretation Comments OCCULT BLD, FECAL (test code = NEGATIVE 30946) OCCULT BLD,FECAL,IMMUNOASSAY [id number] 00:00:00 Test Item Value Reference Range Interpretation Comments OCCULT BLD, FECAL (test code = NEGATIVE 44013) OCCULT BLD,FECAL,IMMUNOASSAY [id number] 00:00:00 Test Item Value Reference Range Interpretation Comments OCCULT BLD, FECAL (test code = NEGATIVE 34434) OCCULT BLD,FECAL,IMMUNOASSAY [id number] 00:00:00 Test Item Value Reference Range Interpretation Comments OCCULT BLD, FECAL (test code = NEGATIVE 81793) HEMOGLOBIN [id number] 04:08:08 Test Item Value Reference Range Interpretation Comments HEMOGLOBIN A1c (test 8.3 % 4.2-5.6 H AMERIC AN DIABETES code = 74371) ASSOCIATION IDELINES FOR HGB A1C: PREDIABETES/INC REASED [...] UNLESS OTHERWIS E INDICATED, ALL TESTING PER FORMED ATCLINICAL PATH [facility], [place] [address] [address] LAB[address] DIRE CTOR: KEN NEWMAN M.D. CLIA NUMBER [id number] [facility] [place]. [id number] HEMOGLOBIN [id number] 00:00:00 Test Item Value Reference Range Interpretation Comments HEMOGLOBIN A1c (test code = 08849) 8.3 % HEMOGLOBIN [id number] 00:00:00 Test Item Value Reference Range Interpretation Comments HEMOGLOBIN A1c (test code = 47333) 8.3 % HEMOGLOBIN [id number] 00:00:00 Test Item Value Reference Range Interpretation Comments HEMOGLOBIN A1c (test code = 28833) 8.3 % HEMOGLOBIN [id number] 00:00:00 Test Item Value Reference Range Interpretation Comments HEMOGLOBIN A1c (test code = 57757) 8.3 % HEMOGLOBIN [id number] 00:00:00 Test Item Value Reference Range Interpretation Comments HEMOGLOBIN A1c (test code = 23760) 8.3 % HEMOGLOBIN [id number] 00:00:00 Test Item Value Reference Range Interpretation Comments HEMOGLOBIN A1c (test code = 87439) 8.3 % HEMOGLOBIN [id number] 00:00:00 Test Item Value Reference Range Interpretation Comments HEMOGLOBIN A1c (test code = 96560) 8.3 % HEMOGLOBIN [id number] 00:00:00 Test Item Value Reference Range Interpretation Comments HEMOGLOBIN A1c (test code = 51371) 8.3 % HEMOGLOBIN [id number] 00:00:00 Test Item Value Reference Range Interpretation Comments HEMOGLOBIN A1c (test code = 00631) 8.3 % HEMOGLOBIN [id number] 00:00:00 Test Item Value Reference Range Interpretation Comments HEMOGLOBIN A1c (test code = 49916) 8.3 % CULTURE, [id number] 12:05:43SPECIMEN NUMBER: [id number] CULTURE, URINE SPECIMEN NUMBER: [id number] SPECIMEN COMMENT: URINE SOURCE:URINE REPORT STATUS: FINAL ISOLATE NUMBER 1: ORGANISM: 09/23/2021 >100,000 CFU/ML GRAM NEGATIVE BA CILLI IDENTIFICATION: 09/24/2021 ESCHERICHIA COLI E. COLI AMOXICILLIN/CA SENSITIVE <=8/4AMPICILLIN RESISTANT >16CEFAZOLIN SENSITIVE <=2CEFTRIAXONE SENSITIVE <=1CIPROFLOXACIN SENSITIVE <=1LEVOFLOXACIN SENSITIVE <=2NITROFURANTOIN SENSITIVE <=32PIP/TAZOBAC SENSITIVE <=16TETRACYCLINE RESISTANT >8TOBRAMYCIN SENSITIVE <=4TRIMETH/SULFA RESISTANT >2/38 NOTE: NUMBERS DISPLAYED REPRESENT MINIMUM INHIBITORY CONCENTRATION (MARTA) WHICH IS EXPRESSED IN MCG/ML. CULTURE, [id number] 00:00:00 Test Item Value Reference Range Interpretation Comments CULTURE, URINE (test SPECIMEN NUMBER: code = 04934) [id number] CULTURE, [id number] 00:00:00 Test Item Value Reference Range Interpretation Comments CULTURE, URINE (test SPECIMEN NUMBER: code = 03814) [id number] CULTURE, [id number] 00:00:00 Test Item Value Reference Range Interpretation Comments CULTURE, URINE (test SPECIMEN NUMBER: code = 95684) [id number] CULTURE, [id number] 00:00:00 Test Item Value Reference Range Interpretation Comments CULTURE, URINE (test SPECIMEN NUMBER: code = 17155) [id number] CULTURE, [id number] 00:00:00 Test Item Value Reference Range Interpretation Comments CULTURE, URINE (test SPECIMEN NUMBER: code = 34820) [id number] CULTURE, [id number] 00:00:00 Test Item Value Reference Range Interpretation Comments CULTURE, URINE (test SPECIMEN NUMBER: code = 47222) [id number] TSH, THIRD [id number] 03:43:01 Test Item Value Reference Range Interpretation Comments TSH, THIRD 2.470 UIU/ML 0.400-4.100 UNLESS OTHERW ISE GENERATION (test INDICATED, ALL TESTING code = 2821) PERFORMED [facility]OLOGY [facility]. [address] [place] [address] [facility] DIRECTOR: KEN NEWMAN M.D. CLIA NUMBER [id number] CAP ACCREDITATION N O. [id number] CBC W/AUTO DIFF WITH [id number] 03:14:58 Test Item Value Reference Range Interpretation [...] RBCS 0.00 K/UL 0.00-0.11 (test code = 00947) COMPREHENSIVE METABOLIC [id number] 02:59:52 Test Item Value Reference Range Interpretation Comments GLUCOSE (test code = 188 MG/DL 70-99 H 2216) BUN (test code = 40 MG/DL 8-23 H 2207) CREATININE (test 1.36 MG/DL 0.60-1.30 H code = 221) eGFR (2020 CKD-EPI) 41 ML/MIN/1.73 >60 L (test code = 04530) CALC BUN/CREAT (test 29 RATIO 6-28 H code = 2235) SODIUM (test code = 145 MEQ/L 434-755 0032) POTASSIUM (test code 5.2 MEQ/L 3.5-5.4 = 2227) CHLORIDE (test code 109 MEQ/L 95-107 H = 2214) CARBON DIOXIDE (test 21 MEQ/L 19-31 code = 2206) CALCIUM (test code = 9.7 MG/DL 8.5-10.5 [...] = 14 U/L 5-40 9) CBC W/AUTO [id number] 00:00:00 Test Item Value Reference Range Interpretation [...] NUCLEATED RBCS (test code = 0.00 K/UL 95326) CBC W/AUTO [id number] 00:00:00 Test Item Value Reference Range Interpretation [...] NUCLEATED RBCS (test code = 0.00 K/UL 53396) CBC W/AUTO [id number] 00:00:00 Test Item Value Reference Range Interpretation [...] NUCLEATED RBCS (test code = 0.00 K/UL 11346) COMPREHENSIVE METABOLIC [id number] 00:00:00 Test Item Value Reference Range Interpretation Comments GLUCOSE (test code = 2217) 188 MG/DL BUN (test code = 2208) 40 MG/DL CREATININE (test code = 2214) 1.36 MG/DL eGFR (2020 CKD-EPI) (test code 41 ML/MIN/1.73 = 14733) CALC BUN/CREAT (test code = 29 RATIO [...] ALT (test code = 2219) 14 U/L COMPREHENSIVE METABOLIC [id number] 00:00:00 Test Item Value Reference Range Interpretation Comments GLUCOSE (test code = 2217) 188 MG/DL BUN (test code = 2208) 40 MG/DL CREATININE (test code = 2214) 1.36 MG/DL eGFR (2020 CKD-EPI) (test code 41 ML/MIN/1.73 = 25726) CALC BUN/CREAT (test code = 29 RATIO [...] ALT (test code = 2219) 14 U/L [id number] 00:00:00 Test Item Value Reference Range Interpretation Comments TSH, THIRD GENERATION (test code 2.470 UIU/ML = 2821) [id number] 00:00:00 Test Item Value Reference Range Interpretation Comments TSH, THIRD GENERATION (test code 2.470 UIU/ML = 2821) [id number] 00:00:00 Test Item Value Reference Range Interpretation Comments TSH, THIRD GENERATION (test code 2.470 UIU/ML = 2821) CBC W/AUTO [id number] 00:00:00 Test Item Value Reference Range Interpretation [...] NUCLEATED RBCS (test code = 0.00 K/UL 07240) CBC W/AUTO [id number] 00:00:00 Test Item Value Reference Range Interpretation [...] NUCLEATED RBCS (test code = 0.00 K/UL 46074) CBC W/AUTO [id number] 00:00:00 Test Item Value Reference Range Interpretation [...] NUCLEATED RBCS (test code = 0.00 K/UL 85224) COMPREHENSIVE METABOLIC [id number] 00:00:00 Test Item Value Reference Range Interpretation Comments GLUCOSE (test code = 2217) 188 MG/DL BUN (test code = 2208) 40 MG/DL CREATININE (test code = 2214) 1.36 MG/DL eGFR (2020 CKD-EPI) (test code 41 ML/MIN/1.73 = 39456) CALC BUN/CREAT (test code = 29 RATIO [...] ALT (test code = 2219) 14 U/L COMPREHENSIVE METABOLIC [id number] 00:00:00 Test Item Value Reference Range Interpretation Comments GLUCOSE (test code = 2217) 188 MG/DL BUN (test code = 2208) 40 MG/DL CREATININE (test code = 2214) 1.36 MG/DL eGFR (2020 CKD-EPI) (test code 41 ML/MIN/1.73 = 62591) CALC BUN/CREAT (test code = 29 RATIO [...] CALC GLOBULIN (test code = 3.2 G/DL 2239) CALC A/G RATIO (test code = 1.4 RATIO 4) BILIRUBIN, TOTAL (test code = 0.3 MG/DL 2206) ALKALINE PHOSPHATASE (test 84 U/L code = 2204) AST (test code = 2218) 15 U/L ALT (test code = 2219) 14 U/L [id number] 00:00:00 Test Item Value Reference Range Interpretation Comments TSH, THIRD GENERATION (test code 2.470 UIU/ML = 2821) [id number] 00:00:00 Test Item Value Reference Range Interpretation Comments TSH, THIRD GENERATION (test code 2.470 UIU/ML = 2821) [id number] 00:00:00 Test Item Value Reference Range Interpretation Comments TSH, THIRD GENERATION (test code 2.470 UIU/ML = 2821) CBC W/AUTO [id number] 00:00:00 Test Item Value Reference Range Interpretation [...] NUCLEATED RBCS (test code = 0.00 K/UL 11971) CBC W/AUTO [id number] 00:00:00 Test Item Value Reference Range Interpretation [...] NUCLEATED RBCS (test code = 0.00 K/UL 90418) COMPREHENSIVE METABOLIC [id number] 00:00:00 Test Item Value Reference Range Interpretation Comments GLUCOSE (test code = 2217) 188 MG/DL BUN (test code = 2208) 40 MG/DL CREATININE (test code = 2214) 1.36 MG/DL eGFR (2020 CKD-EPI) (test code 41 ML/MIN/1.73 = 36124) CALC BUN/CREAT (test code = 29 RATIO [...] ALT (test code = 2219) 14 U/L [id number] 00:00:00 Test Item Value Reference Range Interpretation Comments TSH, THIRD GENERATION (test code 2.470 UIU/ML = 2821) [id number] 00:00:00 Test Item Value Reference Range Interpretation Comments TSH, THIRD GENERATION (test code 2.470 UIU/ML = 2821) CBC W/AUTO [id number] 00:00:00 Test Item Value Reference Range Interpretation [...] NUCLEATED RBCS (test code = 0.00 K/UL 60660) CBC W/AUTO [id number] 00:00:00 Test Item Value Reference Range Interpretation [...] NUCLEATED RBCS (test code = 0.00 K/UL 55408) COMPREHENSIVE METABOLIC [id number] 00:00:00 Test Item Value Reference Range Interpretation Comments GLUCOSE (test code = 2217) 188 MG/DL BUN (test code = 2208) 40 MG/DL CREATININE (test code = 2214) 1.36 MG/DL eGFR (2020 CKD-EPI) (test code 41 ML/MIN/1.73 = 86538) CALC BUN/CREAT (test code = 29 RATIO [...] ALT (test code = 2219) 14 U/L [id number] 00:00:00 Test Item Value Reference Range Interpretation Comments TSH, THIRD GENERATION (test code 2.470 UIU/ML = 2821) [id number] 00:00:00 Test Item Value Reference Range Interpretation Comments TSH, THIRD GENERATION (test code 2.470 UIU/ML = 2821) CBC W/AUTO DIFF WITH [id number] 04:35:16 Test Item Value Reference Range Interpretation [...] RBCS 0.00 K/UL 0.00-0.11 (test code = 38819) HEMOGLOBIN [id number] 04:23:29 Test Item Value Reference Range Interpretation Comments HEMOGLOBIN A1c (test 8.8 % 4.2-5.6 H AMERIC AN DIABETES code = 53908) ASSOCIATION IDELINES FOR HGB A1C: PREDIABETES/INC REASED [...] TESTING OR LABORATORY C ONSULTATION. COMPREHENSIVE METABOLIC [id number] 03:52:38 Test Item Value Reference Range Interpretation Comments GLUCOSE (test code = 166 MG/DL 70-99 H 2216) BUN (test code = 30 MG/DL 8-23 H 2207) CREATININE (test 1.31 MG/DL 0.60-1.30 H code = 2214) eGFR (2020 CKD-EPI) 43 >60 L (test code = 79787) ML/MIN/1.73 CALC BUN/CREAT (test 23 RATIO 6-28 code = 2235) SODIUM (test code = 140 MEQ/L 894-982 5036) POTASSIUM (test code 5.5 MEQ/L 3.5-5.4 H = 2227) CHLORIDE (test code 104 MEQ/L 95-107 = 2214) CARBON DIOXIDE (test 22 MEQ/L 19-31 code = 220) CALCIUM (test code = 10.0 MG/DL 8.5-10.5 2208) PROTEIN, TOTAL (test 7.8 G/DL 6.1-8.3 code = 222) ALBUMIN (test code = 4.5 G/DL 3.5-5.2 2200) CALC GLOBULIN (test 3.3 G/DL 1.9-3.7 code = 2240) CALC A/G RATIO (test 1.4 RATIO 1.0-2.6 code = 2234) BILIRUBIN, TOTAL 0.4 MG/DL See_Comment [Automated message] (test code = 2207) The [employer] which generated this result transmitted ref erence range: <=1.2. T he reference range was not used to int erpret this result as normal/abnormal . ALKALINE PHOSPHATASE 86 U/L 40-142 (test code = 2204) AST (test code = 21 U/L 9-40 2218) ALT (test code = 13 U/L 5-40 UNLESS OTH ERWISE 2219) INDICATED, ALL TESTING PERFORM ED ATCLINICAL PATH OLOGY LABORATORIES, [facility]. [address] [facility] [place] [address] [facility] DIRECTOR: KEN NEWMAN M.D. CLIA NUMBER [id number] CAP ACCREDITATION N O. [id number] HEMOGLOBIN [id number] 00:00:00 Test Item Value Reference Range Interpretation Comments HEMOGLOBIN A1c (test code = 78186) 8.8 % HEMOGLOBIN [id number] 00:00:00 Test Item Value Reference Range Interpretation Comments HEMOGLOBIN A1c (test code = 30340) 8.8 % HEMOGLOBIN [id number] 00:00:00 Test Item Value Reference Range Interpretation Comments HEMOGLOBIN A1c (test code = 65432) 8.8 % CBC W/AUTO [id number] 00:00:00 Test Item Value Reference Range Interpretation [...] NUCLEATED RBCS (test code = 0.00 K/UL 25238) CBC W/AUTO [id number] 00:00:00 Test Item Value Reference Range Interpretation [...] NUCLEATED RBCS (test code = 0.00 K/UL 89588) CBC W/AUTO [id number] 00:00:00 Test Item Value Reference Range Interpretation [...] NUCLEATED RBCS (test code = 0.00 K/UL 67202) COMPREHENSIVE METABOLIC [id number] 00:00:00 Test Item Value Reference Range Interpretation Comments GLUCOSE (test code = 2217) 166 MG/DL BUN (test code = 2208) 30 MG/DL CREATININE (test code = 2214) 1.31 MG/DL eGFR (2020 CKD-EPI) (test code 43 ML/MIN/1.73 = 95952) CALC BUN/CREAT (test code = 23 RATIO 2235) SODIUM (test code = 2231) 140 MEQ/L POTASSIUM (test code = 2228) 5.5 MEQ/L CHLORIDE (test code = 2215) 104 MEQ/L CARBON DIOXIDE (test code = 22 MEQ/L 220) CALCIUM (test code = 2209) 10.0 MG/DL PROTEIN, TOTAL (test code = 7.8 G/DL 222) ALBUMIN (test code = 2201) 4.5 G/DL CALC GLOBULIN (test code = 3.3 G/DL 2240) CALC A/G RATIO (test code = 1.4 RATIO 2234) BILIRUBIN, TOTAL (test code = 0.4 MG/DL 220) ALKALINE PHOSPHATASE (test 86 U/L code = 2204) AST (test code = 2218) 21 U/L ALT (test code = 2219) 13 U/L COMPREHENSIVE METABOLIC [id number] 00:00:00 Test Item Value Reference Range Interpretation Comments GLUCOSE (test code = 2217) 166 MG/DL BUN (test code = 2208) 30 MG/DL CREATININE (test code = 2214) 1.31 MG/DL eGFR (2020 CKD-EPI) (test code 43 ML/MIN/1.73 = 28062) CALC BUN/CREAT (test code = 23 RATIO 2235) SODIUM (test code = 2231) 140 MEQ/L POTASSIUM (test code = 2228) 5.5 MEQ/L CHLORIDE (test code = 2215) 104 MEQ/L CARBON DIOXIDE (test code = 22 MEQ/L 2205) CALCIUM (test code = 2209) 10.0 MG/DL PROTEIN, TOTAL (test code = 7.8 G/DL 2228) ALBUMIN (test code = 220) 4.5 G/DL CALC GLOBULIN (test code = 3.3 G/DL 2239) CALC A/G RATIO (test code = 1.4 RATIO 2233) BILIRUBIN, TOTAL (test code = 0.4 MG/DL 2206) ALKALINE PHOSPHATASE (test 86 U/L code = 2204) AST (test code = 2218) 21 U/L ALT (test code = 2219) 13 U/L HEMOGLOBIN [id number] 00:00:00 Test Item Value Reference Range Interpretation Comments HEMOGLOBIN A1c (test code = 87844) 8.8 % HEMOGLOBIN [id number] 00:00:00 Test Item Value Reference Range Interpretation Comments HEMOGLOBIN A1c (test code = 62321) 8.8 % HEMOGLOBIN [id number] 00:00:00 Test Item Value Reference Range Interpretation Comments HEMOGLOBIN A1c (test code = 01188) 8.8 % CBC W/AUTO [id number] 00:00:00 Test Item Value Reference Range Interpretation [...] NUCLEATED RBCS (test code = 0.00 K/UL 31898) CBC W/AUTO [id number] 00:00:00 Test Item Value Reference Range Interpretation [...] NUCLEATED RBCS (test code = 0.00 K/UL 61734) CBC W/AUTO [id number] 00:00:00 Test Item Value Reference Range Interpretation [...] NUCLEATED RBCS (test code = 0.00 K/UL 99644) COMPREHENSIVE METABOLIC [id number] 00:00:00 Test Item Value Reference Range Interpretation Comments GLUCOSE (test code = 2217) 166 MG/DL BUN (test code = 2208) 30 MG/DL CREATININE (test code = 2214) 1.31 MG/DL eGFR (2020 CKD-EPI) (test code 43 ML/MIN/1.73 = 34659) CALC BUN/CREAT (test code = 23 RATIO [...] ALT (test code = 2219) 13 U/L COMPREHENSIVE METABOLIC [id number] 00:00:00 Test Item Value Reference Range Interpretation Comments GLUCOSE (test code = 2217) 166 MG/DL BUN (test code = 2208) 30 MG/DL CREATININE (test code = 2214) 1.31 MG/DL eGFR (2020 CKD-EPI) (test code 43 ML/MIN/1.73 = 43994) CALC BUN/CREAT (test code = 23 RATIO [...] (test code = 2219) 13 U/L HEMOGLOBIN [id number] 00:00:00 Test Item Value Reference Range Interpretation Comments HEMOGLOBIN A1c (test code = 50505) 8.8 % HEMOGLOBIN [id number] 00:00:00 Test Item Value Reference Range Interpretation Comments HEMOGLOBIN A1c (test code = 98981) 8.8 % CBC W/AUTO [id number] 00:00:00 Test Item Value Reference Range Interpretation [...] NUCLEATED RBCS (test code = 0.00 K/UL 19006) CBC W/AUTO [id number] 00:00:00 Test Item Value Reference Range Interpretation [...] NUCLEATED RBCS (test code = 0.00 K/UL 28090) COMPREHENSIVE METABOLIC [id number] 00:00:00 Test Item Value Reference Range Interpretation Comments GLUCOSE (test code = 2217) 166 MG/DL BUN (test code = 2208) 30 MG/DL CREATININE (test code = 2214) 1.31 MG/DL eGFR (2020 CKD-EPI) (test code 43 ML/MIN/1.73 = 96552) CALC BUN/CREAT (test code = 23 RATIO 2235) SODIUM (test code = 2231) 140 MEQ/L POTASSIUM (test code = 2228) 5.5 MEQ/L CHLORIDE (test code = 2215) 104 MEQ/L CARBON DIOXIDE (test code = 22 MEQ/L 6) CALCIUM (test code = 2209) 10.0 MG/DL PROTEIN, TOTAL (test code = 7.8 G/DL 222) ALBUMIN (test code = 2201) 4.5 G/DL CALC GLOBULIN (test code = 3.3 G/DL 2240) CALC A/G RATIO (test code = 1.4 RATIO 2234) BILIRUBIN, TOTAL (test code = 0.4 MG/DL 2206) ALKALINE PHOSPHATASE (test 86 U/L code = 2204) AST (test code = 2218) 21 U/L ALT (test code = 2219) 13 U/L HEMOGLOBIN [id number] 00:00:00 Test Item Value Reference Range Interpretation Comments HEMOGLOBIN A1c (test code = 65587) 8.8 % HEMOGLOBIN [id number] 00:00:00 Test Item Value Reference Range Interpretation Comments HEMOGLOBIN A1c (test code = 64486) 8.8 % CBC W/AUTO [id number] 00:00:00 Test Item Value Reference Range Interpretation [...] NUCLEATED RBCS (test code = 0.00 K/UL 73553) CBC W/AUTO [id number] 00:00:00 Test Item Value Reference Range Interpretation [...] NUCLEATED RBCS (test code = 0.00 K/UL 53734) COMPREHENSIVE METABOLIC [id number] 00:00:00 Test Item Value Reference Range Interpretation Comments GLUCOSE (test code = 2217) 166 MG/DL BUN (test code = 2208) 30 MG/DL CREATININE (test code = 2214) 1.31 MG/DL eGFR (2020 CKD-EPI) (test code 43 ML/MIN/1.73 = 48294) CALC BUN/CREAT (test code = 23 RATIO [...] (test code = 2219) 13 U/L LIPID [id number] 00:00:00 Test Item Value Reference Range Interpretation Comments CHOLESTEROL (test code = 2210) 229 MG/DL TRIGLYCERIDES (test code = 2232) 246 MG/DL HDL CHOLESTEROL (test code = 2220) 48 MG/DL CALC LDL CHOL (test code = 2237) 141 MG/DL RISK RATIO LDL/HDL (test code = 2.94 RATIO 2238) LIPID [id number] 00:00:00 Test Item Value Reference Range Interpretation Comments CHOLESTEROL (test code = 2210) 229 MG/DL TRIGLYCERIDES (test code = 2232) 246 MG/DL HDL CHOLESTEROL (test code = 2220) 48 MG/DL CALC LDL CHOL (test code = 2237) 141 MG/DL RISK RATIO LDL/HDL (test code = 2.94 RATIO 2238) CBC W/AUTO [id number] 00:00:00 Test Item Value Reference Range Interpretation [...] NUCLEATED RBCS (test code = 0.00 K/UL 29893) CBC W/AUTO [id number] 00:00:00 Test Item Value Reference Range Interpretation [...] NUCLEATED RBCS (test code = 0.00 K/UL 17574) CBC W/AUTO [id number] 00:00:00 Test Item Value Reference Range Interpretation [...] NUCLEATED RBCS (test code = 0.00 K/UL 90815) HEMOGLOBIN [id number] 00:00:00 Test Item Value Reference Range Interpretation Comments HEMOGLOBIN A1c (test code = 32247) 9.1 % HEMOGLOBIN [id number] 00:00:00 Test Item Value Reference Range Interpretation Comments HEMOGLOBIN A1c (test code = 26264) 9.1 % HEMOGLOBIN [id number] 00:00:00 Test Item Value Reference Range Interpretation Comments HEMOGLOBIN A1c (test code = 93433) 9.1 % MICROALBUMIN/CREATININE, RANDOM AND [id number] 00:00:00 Test Item Value Reference Range Interpretation Comments CREATININE, URINE, CONC. (test 108.6 MG/DL code = 2072) ALBUMIN, URINE, RANDOM (test code 29.0 MG/DL = 44766) CALC ALBUMIN/CREAT, RND (test 267 MG/G code = 99800) MICROALBUMIN/CREATININE, RANDOM AND [id number] 00:00:00 Test Item Value Reference Range Interpretation Comments CREATININE, URINE, CONC. (test 108.6 MG/DL code = 2072) ALBUMIN, URINE, RANDOM (test code 29.0 MG/DL = 56985) CALC ALBUMIN/CREAT, RND (test 267 MG/G code = 46032) INTACT [id number] 00:00:00 Test Item Value Reference Range Interpretation Comments INTACT PTH (test code = 5005) 85 PG/ML INTACT [id number] 00:00:00 Test Item Value Reference Range Interpretation Comments INTACT PTH (test code = 5005) 85 PG/ML INTACT [id number] 00:00:00 Test Item Value Reference Range Interpretation Comments INTACT PTH (test code = 5005) 85 PG/ML LIPID [id number] 00:00:00 Test Item Value Reference Range Interpretation Comments CHOLESTEROL (test code = 2210) 229 MG/DL TRIGLYCERIDES (test code = 2232) 246 MG/DL HDL CHOLESTEROL (test code = 2220) 48 MG/DL CALC LDL CHOL (test code = 2237) 141 MG/DL RISK RATIO LDL/HDL (test code = 2.94 RATIO 2238) LIPID [id number] 00:00:00 Test Item Value Reference Range Interpretation Comments CHOLESTEROL (test code = 2210) 229 MG/DL TRIGLYCERIDES (test code = 2232) 246 MG/DL HDL CHOLESTEROL (test code = 2220) 48 MG/DL CALC LDL CHOL (test code = 2237) 141 MG/DL RISK RATIO LDL/HDL (test code = 2.94 RATIO 2238) CBC W/AUTO [id number] 00:00:00 Test Item Value Reference Range Interpretation [...] NUCLEATED RBCS (test code = 0.00 K/UL 47142) CBC W/AUTO [id number] 00:00:00 Test Item Value Reference Range Interpretation [...] NUCLEATED RBCS (test code = 0.00 K/UL 36987) CBC W/AUTO [id number] 00:00:00 Test Item Value Reference Range Interpretation [...] NUCLEATED RBCS (test code = 0.00 K/UL 50529) HEMOGLOBIN [id number] 00:00:00 Test Item Value Reference Range Interpretation Comments HEMOGLOBIN A1c (test code = 71486) 9.1 % HEMOGLOBIN [id number] 00:00:00 Test Item Value Reference Range Interpretation Comments HEMOGLOBIN A1c (test code = 58376) 9.1 % HEMOGLOBIN [id number] 00:00:00 Test Item Value Reference Range Interpretation Comments HEMOGLOBIN A1c (test code = 13522) 9.1 % MICROALBUMIN/CREATININE, RANDOM AND [id number] 00:00:00 Test Item Value Reference Range Interpretation Comments CREATININE, URINE, CONC. (test 108.6 MG/DL code = 2072) ALBUMIN, URINE, RANDOM (test code 29.0 MG/DL = 89247) CALC ALBUMIN/CREAT, RND (test 267 MG/G code = 07661) MICROALBUMIN/CREATININE, RANDOM AND [id number] 00:00:00 Test Item Value Reference Range Interpretation Comments CREATININE, URINE, CONC. (test 108.6 MG/DL code = 2072) ALBUMIN, URINE, RANDOM (test code 29.0 MG/DL = 16992) CALC ALBUMIN/CREAT, RND (test 267 MG/G code = 10319) INTACT [id number] 00:00:00 Test Item Value Reference Range Interpretation Comments INTACT PTH (test code = 5005) 85 PG/ML INTACT [id number] 00:00:00 Test Item Value Reference Range Interpretation Comments INTACT PTH (test code = 5005) 85 PG/ML INTACT [id number] 00:00:00 Test Item Value Reference Range Interpretation Comments INTACT PTH (test code = 5005) 85 PG/ML LIPID [id number] 00:00:00 Test Item Value Reference Range Interpretation Comments CHOLESTEROL (test code = 2210) 229 MG/DL TRIGLYCERIDES (test code = 2232) 246 MG/DL HDL CHOLESTEROL (test code = 2220) 48 MG/DL CALC LDL CHOL (test code = 2237) 141 MG/DL RISK RATIO LDL/HDL (test code = 2.94 RATIO 2238) CBC W/AUTO [id number] 00:00:00 Test Item Value Reference Range Interpretation [...] NUCLEATED RBCS (test code = 0.00 K/UL 90969) CBC W/AUTO [id number] 00:00:00 Test Item Value Reference Range Interpretation [...] NUCLEATED RBCS (test code = 0.00 K/UL 35475) HEMOGLOBIN [id number] 00:00:00 Test Item Value Reference Range Interpretation Comments HEMOGLOBIN A1c (test code = 00899) 9.1 % HEMOGLOBIN [id number] 00:00:00 Test Item Value Reference Range Interpretation Comments HEMOGLOBIN A1c (test code = 58560) 9.1 % MICROALBUMIN/CREATININE, RANDOM AND [id number] 00:00:00 Test Item Value Reference Range Interpretation Comments CREATININE, URINE, CONC. (test 108.6 MG/DL code = 2072) ALBUMIN, URINE, RANDOM (test code 29.0 MG/DL = 41999) CALC ALBUMIN/CREAT, RND (test 267 MG/G code = 07482) INTACT [id number] 00:00:00 Test Item Value Reference Range Interpretation Comments INTACT PTH (test code = 5005) 85 PG/ML INTACT [id number] 00:00:00 Test Item Value Reference Range Interpretation Comments INTACT PTH (test code = 5005) 85 PG/ML LIPID [id number] 00:00:00 Test Item Value Reference Range Interpretation Comments CHOLESTEROL (test code = 2210) 229 MG/DL TRIGLYCERIDES (test code = 2232) 246 MG/DL HDL CHOLESTEROL (test code = 2220) 48 MG/DL CALC LDL CHOL (test code = 2237) 141 MG/DL RISK RATIO LDL/HDL (test code = 2.94 RATIO 2238) CBC W/AUTO [id number] 00:00:00 Test Item Value Reference Range Interpretation [...] NUCLEATED RBCS (test code = 0.00 K/UL 86112) CBC W/AUTO [id number] 00:00:00 Test Item Value Reference Range Interpretation [...] NUCLEATED RBCS (test code = 0.00 K/UL 68561) HEMOGLOBIN [id number] 00:00:00 Test Item Value Reference Range Interpretation Comments HEMOGLOBIN A1c (test code = 05139) 9.1 % HEMOGLOBIN [id number] 00:00:00 Test Item Value Reference Range Interpretation Comments HEMOGLOBIN A1c (test code = 02025) 9.1 % MICROALBUMIN/CREATININE, RANDOM AND [id number] 00:00:00 Test Item Value Reference Range Interpretation Comments CREATININE, URINE, CONC. (test 108.6 MG/DL code = 2072) ALBUMIN, URINE, RANDOM (test code 29.0 MG/DL = 10838) CALC ALBUMIN/CREAT, RND (test 267 MG/G code = 81986) INTACT [id number] 00:00:00 Test Item Value Reference Range Interpretation Comments INTACT PTH (test code = 5005) 85 PG/ML INTACT [id number] 00:00:00 Test Item Value Reference Range Interpretation Comments INTACT PTH (test code = 5005) 85 PG/ML CULTURE, [id number] 00:00:00 Test Item Value Reference Range Interpretation Comments CULTURE, ROUTINE (test SPECIMEN NUMBER: code = 17956) [id number] CULTURE, [id number] 00:00:00 Test Item Value Reference Range Interpretation Comments CULTURE, ROUTINE (test SPECIMEN NUMBER: code = 36041) [id number] CULTURE, [id number] 00:00:00 Test Item Value Reference Range Interpretation Comments CULTURE, ROUTINE (test SPECIMEN NUMBER: code = 83478) [id number] CULTURE, [id number] 00:00:00 Test Item Value Reference Range Interpretation Comments CULTURE, ROUTINE (test SPECIMEN NUMBER: code = 25446) [id number] CULTURE, [id number] 00:00:00 Test Item Value Reference Range Interpretation Comments CULTURE, ROUTINE (test SPECIMEN NUMBER: code = 52519) [id number] CULTURE, [id number] 00:00:00 Test Item Value Reference Range Interpretation Comments CULTURE, ROUTINE (test SPECIMEN NUMBER: code = 74386) [id number] CULTURE, [id number] 00:00:00 Test Item Value Reference Range Interpretation Comments CULTURE, ROUTINE (test SPECIMEN NUMBER: code = 13502) [id number] CULTURE, [id number] 00:00:00 Test Item Value Reference Range Interpretation Comments CULTURE, ROUTINE (test SPECIMEN NUMBER: code = 72569) [id number] CULTURE, [id number] 00:00:00 Test Item Value Reference Range Interpretation Comments CULTURE, ROUTINE (test SPECIMEN NUMBER: code = 39856) [id number] CULTURE, [id number] 00:00:00 Test Item Value Reference Range Interpretation Comments CULTURE, ROUTINE (test SPECIMEN NUMBER: code = 71922) [id number] COMPREHENSIVE METABOLIC [id number] 00:00:00 Test Item Value Reference Range Interpretation Comments GLUCOSE (test code = 2217) 222 MG/DL BUN (test code = 2208) 27 MG/DL CREATININE (test code = 2214) 1.05 MG/DL eGFR AMER. (test code 61 ML/MIN/1.73 = 26995) eGFR NON- AMER. (test 53 ML/MIN/1.73 code = 20446) CALC BUN/CREAT (test code = 26 RATIO [...] ALT (test code = 2219) 11 U/L COMPREHENSIVE METABOLIC [id number] 00:00:00 Test Item Value Reference Range Interpretation Comments GLUCOSE (test code = 2217) 222 MG/DL BUN (test code = 2208) 27 MG/DL CREATININE (test code = 2214) 1.05 MG/DL eGFR AMER. (test code 61 ML/MIN/1.73 = 52240) eGFR NON- AMER. (test 53 ML/MIN/1.73 code = 70192) CALC BUN/CREAT (test code = 26 RATIO [...] (test code = 2219) 11 U/L LIPID [id number] 00:00:00 Test Item Value Reference Range Interpretation Comments CHOLESTEROL (test code = 2210) 230 MG/DL TRIGLYCERIDES (test code = 2232) 414 MG/DL HDL CHOLESTEROL (test code = 51 MG/DL 2220) CALC LDL CHOL (test code = 2237) (NOTE) MG/DL RISK RATIO LDL/HDL (test code = (NOTE) RATIO 2238) LIPID [id number] 00:00:00 Test Item Value Reference Range Interpretation Comments CHOLESTEROL (test code = 2210) 230 MG/DL TRIGLYCERIDES (test code = 2232) 414 MG/DL HDL CHOLESTEROL (test code = 51 MG/DL 2220) CALC LDL CHOL (test code = 2237) (NOTE) MG/DL RISK RATIO LDL/HDL (test code = (NOTE) RATIO 2238) HEMOGLOBIN [id number] 00:00:00 Test Item Value Reference Range Interpretation Comments HEMOGLOBIN A1c (test code = 19945) 8.7 % HEMOGLOBIN [id number] 00:00:00 Test Item Value Reference Range Interpretation Comments HEMOGLOBIN A1c (test code = 14453) 8.7 % HEMOGLOBIN [id number] 00:00:00 Test Item Value Reference Range Interpretation Comments HEMOGLOBIN A1c (test code = 32352) 8.7 % COMPREHENSIVE METABOLIC [id number] 00:00:00 Test Item Value Reference Range Interpretation Comments GLUCOSE (test code = 2217) 222 MG/DL BUN (test code = 2208) 27 MG/DL CREATININE (test code = 2214) 1.05 MG/DL eGFR AMER. (test code 61 ML/MIN/1.73 = 14140) eGFR NON- AMER. (test 53 ML/MIN/1.73 code = 77454) CALC BUN/CREAT (test code = 26 RATIO 2235) SODIUM (test code = 2231) 140 MEQ/L POTASSIUM (test code = 2228) 5.2 MEQ/L CHLORIDE (test code = 2215) 106 MEQ/L CARBON DIOXIDE (test code = 20 MEQ/L 2205) CALCIUM (test code = 2209) 9.4 MG/DL PROTEIN, TOTAL (test code = 7.3 G/DL 2228) ALBUMIN (test code = 220) 4.3 G/DL CALC GLOBULIN (test code = 3.0 G/DL 2240) CALC A/G RATIO (test code = 1.4 RATIO 2234) BILIRUBIN, TOTAL (test code = <0.2 MG/DL 220) ALKALINE PHOSPHATASE (test 80 U/L code = 2204) AST (test code = 2218) 14 U/L ALT (test code = 2219) 11 U/L COMPREHENSIVE METABOLIC [id number] 00:00:00 Test Item Value Reference Range Interpretation Comments GLUCOSE (test code = 2217) 222 MG/DL BUN (test code = 2208) 27 MG/DL CREATININE (test code = 2214) 1.05 MG/DL eGFR AMER. (test code 61 ML/MIN/1.73 = 47058) eGFR NON- AMER. (test 53 ML/MIN/1.73 code = 38091) CALC BUN/CREAT (test code = 26 RATIO [...] (test code = 2219) 11 U/L LIPID [id number] 00:00:00 Test Item Value Reference Range Interpretation Comments CHOLESTEROL (test code = 2210) 230 MG/DL TRIGLYCERIDES (test code = 2232) 414 MG/DL HDL CHOLESTEROL (test code = 51 MG/DL 2219) CALC LDL CHOL (test code = 2237) (NOTE) MG/DL RISK RATIO LDL/HDL (test code = (NOTE) RATIO 2238) LIPID [id number] 00:00:00 Test Item Value Reference Range Interpretation Comments CHOLESTEROL (test code = 2210) 230 MG/DL TRIGLYCERIDES (test code = 2232) 414 MG/DL HDL CHOLESTEROL (test code = 51 MG/DL 0) CALC LDL CHOL (test code = 2237) (NOTE) MG/DL RISK RATIO LDL/HDL (test code = (NOTE) RATIO 2238) HEMOGLOBIN [id number] 00:00:00 Test Item Value Reference Range Interpretation Comments HEMOGLOBIN A1c (test code = 23182) 8.7 % HEMOGLOBIN [id number] 00:00:00 Test Item Value Reference Range Interpretation Comments HEMOGLOBIN A1c (test code = 81507) 8.7 % HEMOGLOBIN [id number] 00:00:00 Test Item Value Reference Range Interpretation Comments HEMOGLOBIN A1c (test code = 76460) 8.7 % COMPREHENSIVE METABOLIC [id number] 00:00:00 Test Item Value Reference Range Interpretation Comments GLUCOSE (test code = 2217) 222 MG/DL BUN (test code = 2208) 27 MG/DL CREATININE (test code = 2214) 1.05 MG/DL eGFR AMER. (test code 61 ML/MIN/1.73 = 38236) eGFR NON- AMER. (test 53 ML/MIN/1.73 code = 04153) CALC BUN/CREAT (test code = 26 RATIO [...] CALC GLOBULIN (test code = 3.0 G/DL 0) CALC A/G RATIO (test code = 1.4 RATIO 2234) BILIRUBIN, TOTAL (test code = <0.2 MG/DL 2206) ALKALINE PHOSPHATASE (test 80 U/L code = 2204) AST (test code = 2218) 14 U/L ALT (test code = 2219) 11 U/L LIPID [id number] 00:00:00 Test Item Value Reference Range Interpretation Comments CHOLESTEROL (test code = 2210) 230 MG/DL TRIGLYCERIDES (test code = 2232) 414 MG/DL HDL CHOLESTEROL (test code = 51 MG/DL 2219) CALC LDL CHOL (test code = 2237) (NOTE) MG/DL RISK RATIO LDL/HDL (test code = (NOTE) RATIO 2238) HEMOGLOBIN [id number] 00:00:00 Test Item Value Reference Range Interpretation Comments HEMOGLOBIN A1c (test code = 41533) 8.7 % HEMOGLOBIN [id number] 00:00:00 Test Item Value Reference Range Interpretation Comments HEMOGLOBIN A1c (test code = 93191) 8.7 % COMPREHENSIVE METABOLIC [id number] 00:00:00 Test Item Value Reference Range Interpretation Comments GLUCOSE (test code = 2217) 222 MG/DL BUN (test code = 2208) 27 MG/DL CREATININE (test code = 2214) 1.05 MG/DL eGFR AMER. (test code 61 ML/MIN/1.73 = 49301) eGFR NON- AMER. (test 53 ML/MIN/1.73 code = 05762) CALC BUN/CREAT (test code = 26 RATIO [...] CALC GLOBULIN (test code = 3.0 G/DL 0) CALC A/G RATIO (test code = 1.4 RATIO 4) BILIRUBIN, TOTAL (test code = <0.2 MG/DL 2206) ALKALINE PHOSPHATASE (test 80 U/L code = 2204) AST (test code = 2218) 14 U/L ALT (test code = 2219) 11 U/L LIPID [id number] 00:00:00 Test Item Value Reference Range Interpretation Comments CHOLESTEROL (test code = 2210) 230 MG/DL TRIGLYCERIDES (test code = 2232) 414 MG/DL HDL CHOLESTEROL (test code = 51 MG/DL 2219) CALC LDL CHOL (test code = 2237) (NOTE) MG/DL RISK RATIO LDL/HDL (test code = (NOTE) RATIO 2238) HEMOGLOBIN [id number] 00:00:00 Test Item Value Reference Range Interpretation Comments HEMOGLOBIN A1c (test code = 71509) 8.7 % HEMOGLOBIN [id number] 00:00:00 Test Item Value Reference Range Interpretation Comments HEMOGLOBIN A1c (test code = 38642) 8.7 % XR KNEE 3 VW [id number] 19:05:24HISTORY: ?Pain. FINDINGS: AP, lateral, oblique views [...] arthritis of left knee with minimal jointeffusion. [facility], Radiant Results Inft User - 10/14/2020 [...] degenerative arthritis of left knee with [facility]ffusion.[facility] 2020-10-14 [...] No acutefracture or dislocation in left ankle. [facility], Radiant Results Inft User - 10/14/2020 2:05 [...] joint.CONCLUSIONS: No acute fractureor dislocation in left ankle.[facility] 2020-10-14 19:03:08HISTORY: ?Pain. [...] fracture or dislocation in pelvis or left hip.[facility] [id number] 00:00:00 Test Item Value Reference Range Interpretation Comments VITAMIN D, 25 OH (test code = 4958) 18 NG/ML VITAMIN D, 25 [id number] 00:00:00 Test Item Value Reference Range Interpretation Comments VITAMIN D, 25 OH (test code = 4958) 18 NG/ML CULTURE, [id number] 00:00:00 Test Item Value Reference Range Interpretation Comments CULTURE, URINE (test SPECIMEN NUMBER: code = 14404) [id number] CULTURE, [id number] 00:00:00 Test Item Value Reference Range Interpretation Comments CULTURE, URINE (test SPECIMEN NUMBER: code = 24583) [id number] VITAMIN D, 25 [id number] 00:00:00 Test Item Value Reference Range Interpretation Comments VITAMIN D, 25 OH (test code = 4958) 18 NG/ML VITAMIN D, 25 [id number] 00:00:00 Test Item Value Reference Range Interpretation Comments VITAMIN D, 25 OH (test code = 4958) 18 NG/ML CULTURE, [id number] 00:00:00 Test Item Value Reference Range Interpretation Comments CULTURE, URINE (test SPECIMEN NUMBER: code = 54837) [id number] CULTURE, [id number] 00:00:00 Test Item Value Reference Range Interpretation Comments CULTURE, URINE (test SPECIMEN NUMBER: code = 65433) [id number] VITAMIN D, 25 [id number] 00:00:00 Test Item Value Reference Range Interpretation Comments VITAMIN D, 25 OH (test code = 4958) 18 NG/ML CULTURE, [id number] 00:00:00 Test Item Value Reference Range Interpretation Comments CULTURE, URINE (test SPECIMEN NUMBER: code = 59770) [id number] VITAMIN D, 25 [id number] 00:00:00 Test Item Value Reference Range Interpretation Comments VITAMIN D, 25 OH (test code = 4958) 18 NG/ML CULTURE, [id number] 00:00:00 Test Item Value Reference Range Interpretation Comments CULTURE, URINE (test SPECIMEN NUMBER: code = 12588) [id number] 00:00:00 Test Item Value Reference Range Interpretation Comments TSH, THIRD GENERATION (test code 2.450 UIU/ML = 2821) [id number] 00:00:00 Test Item Value Reference Range Interpretation Comments TSH, THIRD GENERATION (test code 2.450 UIU/ML = 2821) [id number] 00:00:00 Test Item Value Reference Range Interpretation Comments TSH, THIRD GENERATION (test code 2.450 UIU/ML = 2821) [id number] 00:00:00 Test Item Value Reference Range Interpretation Comments TSH, THIRD GENERATION (test code 2.450 UIU/ML = 2821) [id number] 00:00:00 Test Item Value Reference Range Interpretation Comments TSH, THIRD GENERATION (test code 2.450 UIU/ML = 2821) [id number] 00:00:00 Test Item Value Reference Range Interpretation Comments TSH, THIRD GENERATION (test code 2.450 UIU/ML = 2821) [id number] 00:00:00 Test Item Value Reference Range Interpretation Comments TSH, THIRD GENERATION (test code 2.450 UIU/ML = 2821) [id number] 00:00:00 Test Item Value Reference Range Interpretation Comments TSH, THIRD GENERATION (test code 2.450 UIU/ML = 2821) [id number] 00:00:00 Test Item Value Reference Range Interpretation Comments TSH, THIRD GENERATION (test code 2.450 UIU/ML = 2821) [id number] 00:00:00 Test Item Value Reference Range Interpretation Comments TSH, THIRD GENERATION (test code 2.450 UIU/ML = 2821) HEMOGLOBIN [id number] 00:00:00 Test Item Value Reference Range Interpretation Comments HEMOGLOBIN A1c (test code = 67257) 7.4 % HEMOGLOBIN [id number] 00:00:00 Test Item Value Reference Range Interpretation Comments HEMOGLOBIN A1c (test code = 14262) 7.4 % HEMOGLOBIN [id number] 00:00:00 Test Item Value Reference Range Interpretation Comments HEMOGLOBIN A1c (test code = 98002) 7.4 % HEMOGLOBIN [id number] 00:00:00 Test Item Value Reference Range Interpretation Comments HEMOGLOBIN A1c (test code = 97716) 7.4 % HEMOGLOBIN [id number] 00:00:00 Test Item Value Reference Range Interpretation Comments HEMOGLOBIN A1c (test code = 64088) 7.4 % HEMOGLOBIN [id number] 00:00:00 Test Item Value Reference Range Interpretation Comments HEMOGLOBIN A1c (test code = 75983) 7.4 % HEMOGLOBIN [id number] 00:00:00 Test Item Value Reference Range Interpretation Comments HEMOGLOBIN A1c (test code = 41383) 7.4 % HEMOGLOBIN [id number] 00:00:00 Test Item Value Reference Range Interpretation Comments HEMOGLOBIN A1c (test code = 38334) 7.4 % HEMOGLOBIN [id number] 00:00:00 Test Item Value Reference Range Interpretation Comments HEMOGLOBIN A1c (test code = 47130) 7.4 % HEMOGLOBIN [id number] 00:00:00 Test Item Value Reference Range Interpretation Comments HEMOGLOBIN A1c (test code = 71841) 7.4 % CBC W/AUTO [id number] 00:00:00 Test Item Value Reference Range Interpretation [...] code = 1015) 230 K/UL CBC W/AUTO [id number] 00:00:00 Test Item Value Reference Range Interpretation [...] code = 1015) 230 K/UL CBC W/AUTO [id number] 00:00:00 Test Item Value Reference Range Interpretation [...] code = 1015) 230 K/UL CBC W/AUTO [id number] 00:00:00 Test Item Value Reference Range Interpretation [...] code = 1015) 230 K/UL CBC W/AUTO [id number] 00:00:00 Test Item Value Reference Range Interpretation [...] code = 1015) 230 K/UL CBC W/AUTO [id number] 00:00:00 Test Item Value Reference Range Interpretation [...] code = 1015) 230 K/UL CBC W/AUTO [id number] 00:00:00 Test Item Value Reference Range Interpretation [...] code = 1015) 230 K/UL CBC W/AUTO [id number] 00:00:00 Test Item Value Reference Range Interpretation [...] code = 1015) 230 K/UL CBC W/AUTO [id number] 00:00:00 Test Item Value Reference Range Interpretation [...] code = 1015) 230 K/UL CBC W/AUTO [id number] 00:00:00 Test Item Value Reference Range Interpretation [...] (test code = 1015) 230 K/UL HEMOGLOBIN [id number] 00:00:00 Test Item Value Reference Range Interpretation Comments HEMOGLOBIN A1c (test code = 69729) 8.4 % HEMOGLOBIN [id number] 00:00:00 Test Item Value Reference Range Interpretation Comments HEMOGLOBIN A1c (test code = 67734) 8.4 % HEMOGLOBIN [id number] 00:00:00 Test Item Value Reference Range Interpretation Comments HEMOGLOBIN A1c (test code = 75796) 8.4 % COMPREHENSIVE METABOLIC [id number] 00:00:00 Test Item Value Reference Range Interpretation Comments GLUCOSE (test code = 2217) 204 MG/DL BUN (test code = 2208) 26 MG/DL CREATININE (test code = 2214) 1.21 MG/DL eGFR AMER. (test code 52 ML/MIN/1.73 = 38470) eGFR NON- AMER. (test 45 ML/MIN/1.73 code = 13690) CALC BUN/CREAT (test code = 21 RATIO [...] ALT (test code = 2219) 8 U/L COMPREHENSIVE METABOLIC [id number] 00:00:00 Test Item Value Reference Range Interpretation Comments GLUCOSE (test code = 2217) 204 MG/DL BUN (test code = 2208) 26 MG/DL CREATININE (test code = 2214) 1.21 MG/DL eGFR AMER. (test code 52 ML/MIN/1.73 = 88669) eGFR NON- AMER. (test 45 ML/MIN/1.73 code = 68617) CALC BUN/CREAT (test code = 21 RATIO 2235) SODIUM (test code = 2231) 140 MEQ/L POTASSIUM (test code = 2228) 4.6 MEQ/L CHLORIDE (test code = 2215) 105 MEQ/L CARBON DIOXIDE (test code = 23 MEQ/L 220) CALCIUM (test code = 2209) 9.2 MG/DL [...] (test code = 2219) 8 U/L LIPID [id number] 00:00:00 Test Item Value Reference Range Interpretation Comments CHOLESTEROL (test code = 2210) 184 MG/DL TRIGLYCERIDES (test code = 2232) 222 MG/DL HDL CHOLESTEROL (test code = 2220) 52 MG/DL CALC LDL CHOL (test code = 2237) 98 MG/DL RISK RATIO LDL/HDL (test code = 1.88 RATIO 2238) LIPID [id number] 00:00:00 Test Item Value Reference Range Interpretation Comments CHOLESTEROL (test code = 2210) 184 MG/DL TRIGLYCERIDES (test code = 2232) 222 MG/DL HDL CHOLESTEROL (test code = 2220) 52 MG/DL CALC LDL CHOL (test code = 2237) 98 MG/DL RISK RATIO LDL/HDL (test code = 1.88 RATIO 2238) HEMOGLOBIN [id number] 00:00:00 Test Item Value Reference Range Interpretation Comments HEMOGLOBIN A1c (test code = 33243) 8.4 % HEMOGLOBIN [id number] 00:00:00 Test Item Value Reference Range Interpretation Comments HEMOGLOBIN A1c (test code = 67586) 8.4 % HEMOGLOBIN [id number] 00:00:00 Test Item Value Reference Range Interpretation Comments HEMOGLOBIN A1c (test code = 38385) 8.4 % COMPREHENSIVE METABOLIC [id number] 00:00:00 Test Item Value Reference Range Interpretation Comments GLUCOSE (test code = 2217) 204 MG/DL BUN (test code = 2208) 26 MG/DL CREATININE (test code = 2214) 1.21 MG/DL eGFR AMER. (test code 52 ML/MIN/1.73 = 28426) eGFR NON- AMER. (test 45 ML/MIN/1.73 code = 49886) CALC BUN/CREAT (test code = 21 RATIO 2235) SODIUM (test code = 2231) 140 MEQ/L POTASSIUM (test code = 2228) 4.6 MEQ/L CHLORIDE (test code = 2215) 105 MEQ/L CARBON DIOXIDE (test code = 23 MEQ/L 220) CALCIUM (test code = 2209) 9.2 MG/DL [...] ALT (test code = 2219) 8 U/L COMPREHENSIVE METABOLIC [id number] 00:00:00 Test Item Value Reference Range Interpretation Comments GLUCOSE (test code = 2217) 204 MG/DL BUN (test code = 2208) 26 MG/DL CREATININE (test code = 2214) 1.21 MG/DL eGFR AMER. (test code 52 ML/MIN/1.73 = 72238) eGFR NON- AMER. (test 45 ML/MIN/1.73 code = 52599) CALC BUN/CREAT (test code = 21 RATIO 2235) SODIUM (test code = 2231) 140 MEQ/L POTASSIUM (test code = 2228) 4.6 MEQ/L CHLORIDE (test code = 2215) 105 MEQ/L CARBON DIOXIDE (test code = 23 MEQ/L 6) CALCIUM (test code = 2209) 9.2 MG/DL [...] (test code = 2219) 8 U/L LIPID [id number] 00:00:00 Test Item Value Reference Range Interpretation Comments CHOLESTEROL (test code = 2210) 184 MG/DL TRIGLYCERIDES (test code = 2232) 222 MG/DL HDL CHOLESTEROL (test code = 2220) 52 MG/DL CALC LDL CHOL (test code = 2237) 98 MG/DL RISK RATIO LDL/HDL (test code = 1.88 RATIO 2238) LIPID [id number] 00:00:00 Test Item Value Reference Range Interpretation Comments CHOLESTEROL (test code = 2210) 184 MG/DL TRIGLYCERIDES (test code = 2232) 222 MG/DL HDL CHOLESTEROL (test code = 2220) 52 MG/DL CALC LDL CHOL (test code = 2237) 98 MG/DL RISK RATIO LDL/HDL (test code = 1.88 RATIO 2238) HEMOGLOBIN [id number] 00:00:00 Test Item Value Reference Range Interpretation Comments HEMOGLOBIN A1c (test code = 02931) 8.4 % HEMOGLOBIN [id number] 00:00:00 Test Item Value Reference Range Interpretation Comments HEMOGLOBIN A1c (test code = 17458) 8.4 % COMPREHENSIVE METABOLIC [id number] 00:00:00 Test Item Value Reference Range Interpretation Comments GLUCOSE (test code = 2217) 204 MG/DL BUN (test code = 2208) 26 MG/DL CREATININE (test code = 2214) 1.21 MG/DL eGFR AMER. (test code 52 ML/MIN/1.73 = 15800) eGFR NON- AMER. (test 45 ML/MIN/1.73 code = 03805) CALC BUN/CREAT (test code = 21 RATIO [...] (test code = 2219) 8 U/L LIPID [id number] 00:00:00 Test Item Value Reference Range Interpretation Comments CHOLESTEROL (test code = 2210) 184 MG/DL TRIGLYCERIDES (test code = 2232) 222 MG/DL HDL CHOLESTEROL (test code = 2220) 52 MG/DL CALC LDL CHOL (test code = 2237) 98 MG/DL RISK RATIO LDL/HDL (test code = 1.88 RATIO 2238) HEMOGLOBIN [id number] 00:00:00 Test Item Value Reference Range Interpretation Comments HEMOGLOBIN A1c (test code = 77163) 8.4 % HEMOGLOBIN [id number] 00:00:00 Test Item Value Reference Range Interpretation Comments HEMOGLOBIN A1c (test code = 70051) 8.4 % COMPREHENSIVE METABOLIC [id number] 00:00:00 Test Item Value Reference Range Interpretation Comments GLUCOSE (test code = 2217) 204 MG/DL BUN (test code = 2208) 26 MG/DL CREATININE (test code = 2214) 1.21 MG/DL eGFR AMER. (test code 52 ML/MIN/1.73 = 81175) eGFR NON- AMER. (test 45 ML/MIN/1.73 code = 60428) CALC BUN/CREAT (test code = 21 RATIO 5) SODIUM (test code = 2231) 140 MEQ/L [...] (test code = 2219) 8 U/L LIPID [id number] 00:00:00 Test Item Value Reference Range Interpretation Comments CHOLESTEROL (test code = 2210) 184 MG/DL TRIGLYCERIDES (test code = 2232) 222 MG/DL HDL CHOLESTEROL (test code = 2220) 52 MG/DL CALC LDL CHOL (test code = 2237) 98 MG/DL RISK RATIO LDL/HDL (test code = 1.88 RATIO 2238) MICROALBUMIN/CREATININE, RANDOM AND [id number] 00:00:00 Test Item Value Reference Range Interpretation Comments CREATININE, URINE, CONC. (test 190.3 MG/DL code = 2072) ALBUMIN, URINE, RANDOM (test code 135.3 MG/DL = 54086) CALC ALBUMIN/CREAT, RND (test 711 MG/G code = 22532) MICROALBUMIN/CREATININE, RANDOM AND [id number] 00:00:00 Test Item Value Reference Range Interpretation Comments CREATININE, URINE, CONC. (test 190.3 MG/DL code = 2072) ALBUMIN, URINE, RANDOM (test code 135.3 MG/DL = 34110) CALC ALBUMIN/CREAT, RND (test 711 MG/G code = 85529) MICROALBUMIN/CREATININE, RANDOM AND [id number] 00:00:00 Test Item Value Reference Range Interpretation Comments CREATININE, URINE, CONC. (test 190.3 MG/DL code = 2072) ALBUMIN, URINE, RANDOM (test code 135.3 MG/DL = 30615) CALC ALBUMIN/CREAT, RND (test 711 MG/G code = 46062) MICROALBUMIN/CREATININE, RANDOM AND [id number] 00:00:00 Test Item Value Reference Range Interpretation Comments CREATININE, URINE, CONC. (test 190.3 MG/DL code = 2072) ALBUMIN, URINE, RANDOM (test code 135.3 MG/DL = 31238) CALC ALBUMIN/CREAT, RND (test 711 MG/G code = 15712) MICROALBUMIN/CREATININE, RANDOM AND [id number] 00:00:00 Test Item Value Reference Range Interpretation Comments CREATININE, URINE, CONC. (test 190.3 MG/DL code = 2072) ALBUMIN, URINE, RANDOM (test code 135.3 MG/DL = 51787) CALC ALBUMIN/CREAT, RND (test 711 MG/G code = 20715) MICROALBUMIN/CREATININE, RANDOM AND [id number] 00:00:00 Test Item Value Reference Range Interpretation Comments CREATININE, URINE, CONC. (test 190.3 MG/DL code = 2072) ALBUMIN, URINE, RANDOM (test code 135.3 MG/DL = 26343) CALC ALBUMIN/CREAT, RND (test 711 MG/G code = 03397) HEMOGLOBIN [id number] 00:00:00 Test Item Value Reference Range Interpretation Comments HEMOGLOBIN A1c (test code = 24665) 7.9 % HEMOGLOBIN [id number] 00:00:00 Test Item Value Reference Range Interpretation Comments HEMOGLOBIN A1c (test code = 01005) 7.9 % HEMOGLOBIN [id number] 00:00:00 Test Item Value Reference Range Interpretation Comments HEMOGLOBIN A1c (test code = 29265) 7.9 % LIPID [id number] 00:00:00 Test Item Value Reference Range Interpretation Comments CHOLESTEROL (test code = 2210) 227 MG/DL TRIGLYCERIDES (test code = 2232) 165 MG/DL HDL CHOLESTEROL (test code = 2220) 58 MG/DL CALC LDL CHOL (test code = 2237) 139 MG/DL RISK RATIO LDL/HDL (test code = 2.40 RATIO 2238) LIPID [id number] 00:00:00 Test Item Value Reference Range Interpretation Comments CHOLESTEROL (test code = 2210) 227 MG/DL TRIGLYCERIDES (test code = 2232) 165 MG/DL HDL CHOLESTEROL (test code = 2220) 58 MG/DL CALC LDL CHOL (test code = 2237) 139 MG/DL RISK RATIO LDL/HDL (test code = 2.40 RATIO 2238) COMPREHENSIVE METABOLIC [id number] 00:00:00 Test Item Value Reference Range Interpretation Comments GLUCOSE (test code = 2217) 103 MG/DL BUN (test code = 2208) 25 MG/DL CREATININE (test code = 2214) 1.30 MG/DL eGFR AMER. (test code 48 ML/MIN/1.73 = 65686) eGFR NON- AMER. (test 41 ML/MIN/1.73 code = 63260) CALC BUN/CREAT (test code = 19 RATIO 2235) SODIUM (test code = 2231) 141 MEQ/L POTASSIUM (test code = 2228) 5.0 MEQ/L CHLORIDE (test code = 2215) 104 MEQ/L CARBON DIOXIDE (test code = 21 MEQ/L 2205) CALCIUM (test code = 2209) 10.3 MG/DL PROTEIN, TOTAL (test code = 8.1 G/DL 2229) ALBUMIN (test code = 2201) 4.5 G/DL CALC GLOBULIN (test code = 3.6 G/DL 2240) CALC A/G RATIO (test code = 1.3 RATIO 2234) BILIRUBIN, TOTAL (test code = 0.4 MG/DL 2206) ALKALINE PHOSPHATASE (test 79 U/L code = 2204) AST (test code = 2218) 16 U/L ALT (test code = 2219) 12 U/L COMPREHENSIVE METABOLIC [id number] 00:00:00 Test Item Value Reference Range Interpretation Comments GLUCOSE (test code = 2217) 103 MG/DL BUN (test code = 2208) 25 MG/DL CREATININE (test code = 2214) 1.30 MG/DL eGFR AMER. (test code 48 ML/MIN/1.73 = 20019) eGFR NON- AMER. (test 41 ML/MIN/1.73 code = 49119) CALC BUN/CREAT (test code = 19 RATIO [...] (test code = 2219) 12 U/L HEMOGLOBIN [id number] 00:00:00 Test Item Value Reference Range Interpretation Comments HEMOGLOBIN A1c (test code = 37401) 7.9 % HEMOGLOBIN [id number] 00:00:00 Test Item Value Reference Range Interpretation Comments HEMOGLOBIN A1c (test code = 29647) 7.9 % HEMOGLOBIN [id number] 00:00:00 Test Item Value Reference Range Interpretation Comments HEMOGLOBIN A1c (test code = 02135) 7.9 % LIPID [id number] 00:00:00 Test Item Value Reference Range Interpretation Comments CHOLESTEROL (test code = 2210) 227 MG/DL TRIGLYCERIDES (test code = 2232) 165 MG/DL HDL CHOLESTEROL (test code = 2220) 58 MG/DL CALC LDL CHOL (test code = 2237) 139 MG/DL RISK RATIO LDL/HDL (test code = 2.40 RATIO 2238) LIPID [id number] 00:00:00 Test Item Value Reference Range Interpretation Comments CHOLESTEROL (test code = 2210) 227 MG/DL TRIGLYCERIDES (test code = 2232) 165 MG/DL HDL CHOLESTEROL (test code = 2220) 58 MG/DL CALC LDL CHOL (test code = 2237) 139 MG/DL RISK RATIO LDL/HDL (test code = 2.40 RATIO 2238) COMPREHENSIVE METABOLIC [id number] 00:00:00 Test Item Value Reference Range Interpretation Comments GLUCOSE (test code = 2217) 103 MG/DL BUN (test code = 2208) 25 MG/DL CREATININE (test code = 2214) 1.30 MG/DL eGFR AMER. (test code 48 ML/MIN/1.73 = 44908) eGFR NON- AMER. (test 41 ML/MIN/1.73 code = 66830) CALC BUN/CREAT (test code = 19 RATIO [...] code = 2219) 12 U/L COMPREHENSIVE METABOLIC [id number] 00:00:00 Test Item Value Reference Range Interpretation Comments GLUCOSE (test code = 2217) 103 MG/DL BUN (test code = 2208) 25 MG/DL CREATININE (test code = 2214) 1.30 MG/DL eGFR AMER. (test code 48 ML/MIN/1.73 = 86598) eGFR NON- AMER. (test 41 ML/MIN/1.73 code = 57390) CALC BUN/CREAT (test code = 19 RATIO [...] A/G RATIO (test code = 1.3 RATIO 4) BILIRUBIN, TOTAL (test code = 0.4 MG/DL 2206) ALKALINE PHOSPHATASE (test 79 U/L code = 220) AST (test code = 2218) 16 U/L ALT (test code = 2219) 12 U/L HEMOGLOBIN [id number] 00:00:00 Test Item Value Reference Range Interpretation Comments HEMOGLOBIN A1c (test code = 47894) 7.9 % HEMOGLOBIN [id number] 00:00:00 Test Item Value Reference Range Interpretation Comments HEMOGLOBIN A1c (test code = 78433) 7.9 % LIPID [id number] 00:00:00 Test Item Value Reference Range Interpretation Comments CHOLESTEROL (test code = 2210) 227 MG/DL TRIGLYCERIDES (test code = 2232) 165 MG/DL HDL CHOLESTEROL (test code = 2220) 58 MG/DL CALC LDL CHOL (test code = 2237) 139 MG/DL RISK RATIO LDL/HDL (test code = 2.40 RATIO 2238) COMPREHENSIVE METABOLIC [id number] 00:00:00 Test Item Value Reference Range Interpretation Comments GLUCOSE (test code = 2217) 103 MG/DL BUN (test code = 2208) 25 MG/DL CREATININE (test code = 2214) 1.30 MG/DL eGFR AMER. (test code 48 ML/MIN/1.73 = 52335) eGFR NON- AMER. (test 41 ML/MIN/1.73 code = 13065) CALC BUN/CREAT (test code = 19 RATIO [...] ALKALINE PHOSPHATASE (test 79 U/L code = 2203) AST (test code = 2218) 16 U/L ALT (test code = 2219) 12 U/L HEMOGLOBIN [id number] 00:00:00 Test Item Value Reference Range Interpretation Comments HEMOGLOBIN A1c (test code = 67724) 7.9 % HEMOGLOBIN [id number] 00:00:00 Test Item Value Reference Range Interpretation Comments HEMOGLOBIN A1c (test code = 11588) 7.9 % LIPID [id number] 00:00:00 Test Item Value Reference Range Interpretation Comments CHOLESTEROL (test code = 2210) 227 MG/DL TRIGLYCERIDES (test code = 2232) 165 MG/DL HDL CHOLESTEROL (test code = 2220) 58 MG/DL CALC LDL CHOL (test code = 2237) 139 MG/DL RISK RATIO LDL/HDL (test code = 2.40 RATIO 8) COMPREHENSIVE METABOLIC [id number] 00:00:00 Test Item Value Reference Range Interpretation Comments GLUCOSE (test code = 2217) 103 MG/DL BUN (test code = 2208) 25 MG/DL CREATININE (test code = 2214) 1.30 MG/DL eGFR AMER. (test code 48 ML/MIN/1.73 = 43859) eGFR NON- AMER. (test 41 ML/MIN/1.73 code = 03778) CALC BUN/CREAT (test code = 19 RATIO [...] code = 2219) 12 U/L COMPREHENSIVE METABOLIC [id number] 00:00:00 Test Item Value Reference Range Interpretation Comments GLUCOSE (test code = 2217) 138 MG/DL BUN (test code = 2208) 33 MG/DL CREATININE (test code = 2214) 1.25 MG/DL eGFR AMER. (test code 50 ML/MIN/1.73 = 54631) eGFR NON- AMER. (test 43 ML/MIN/1.73 code = 29621) CALC BUN/CREAT (test code = 26 RATIO [...] code = 2219) 12 U/L COMPREHENSIVE METABOLIC [id number] 00:00:00 Test Item Value Reference Range Interpretation Comments GLUCOSE (test code = 2217) 138 MG/DL BUN (test code = 2208) 33 MG/DL CREATININE (test code = 2214) 1.25 MG/DL eGFR AMER. (test code 50 ML/MIN/1.73 = 31543) eGFR NON- AMER. (test 43 ML/MIN/1.73 code = 95474) CALC BUN/CREAT (test code = 26 RATIO [...] 224) CALC A/G RATIO (test code = 1.5 RATIO 2234) BILIRUBIN, TOTAL (test code = 0.3 MG/DL 2206) ALKALINE PHOSPHATASE (test 85 U/L code = 2204) AST (test code = 2218) 16 U/L ALT (test code = 2219) 12 U/L LIPID [id number] 00:00:00 Test Item Value Reference Range Interpretation Comments CHOLESTEROL (test code = 2210) 211 MG/DL TRIGLYCERIDES (test code = 2232) 245 MG/DL HDL CHOLESTEROL (test code = 2220) 52 MG/DL CALC LDL CHOL (test code = 2237) 122 MG/DL RISK RATIO LDL/HDL (test code = 2.35 RATIO 2238) LIPID [id number] 00:00:00 Test Item Value Reference Range Interpretation Comments CHOLESTEROL (test code = 2210) 211 MG/DL TRIGLYCERIDES (test code = 2232) 245 MG/DL HDL CHOLESTEROL (test code = 2220) 52 MG/DL CALC LDL CHOL (test code = 2237) 122 MG/DL RISK RATIO LDL/HDL (test code = 2.35 RATIO 2238) COMPREHENSIVE METABOLIC [id number] 00:00:00 Test Item Value Reference Range Interpretation Comments GLUCOSE (test code = 2217) 138 MG/DL BUN (test code = 2208) 33 MG/DL CREATININE (test code = 2214) 1.25 MG/DL eGFR AMER. (test code 50 ML/MIN/1.73 = 10157) eGFR NON- AMER. (test 43 ML/MIN/1.73 code = 11868) CALC BUN/CREAT (test code = 26 RATIO [...] code = 2219) 12 U/L COMPREHENSIVE METABOLIC [id number] 00:00:00 Test Item Value Reference Range Interpretation Comments GLUCOSE (test code = 2217) 138 MG/DL BUN (test code = 2208) 33 MG/DL CREATININE (test code = 2214) 1.25 MG/DL eGFR AMER. (test code 50 ML/MIN/1.73 = 47889) eGFR NON- AMER. (test 43 ML/MIN/1.73 code = 30958) CALC BUN/CREAT (test code = 26 RATIO [...] (test code = 2219) 12 U/L LIPID [id number] 00:00:00 Test Item Value Reference Range Interpretation Comments CHOLESTEROL (test code = 2210) 211 MG/DL TRIGLYCERIDES (test code = 2232) 245 MG/DL HDL CHOLESTEROL (test code = 2220) 52 MG/DL CALC LDL CHOL (test code = 2237) 122 MG/DL RISK RATIO LDL/HDL (test code = 2.35 RATIO 2238) LIPID [id number] 00:00:00 Test Item Value Reference Range Interpretation Comments CHOLESTEROL (test code = 2210) 211 MG/DL TRIGLYCERIDES (test code = 2232) 245 MG/DL HDL CHOLESTEROL (test code = 2220) 52 MG/DL CALC LDL CHOL (test code = 2237) 122 MG/DL RISK RATIO LDL/HDL (test code = 2.35 RATIO 2238) COMPREHENSIVE METABOLIC [id number] 00:00:00 Test Item Value Reference Range Interpretation Comments GLUCOSE (test code = 2217) 138 MG/DL BUN (test code = 2208) 33 MG/DL CREATININE (test code = 2214) 1.25 MG/DL eGFR AMER. (test code 50 ML/MIN/1.73 = 66737) eGFR NON- AMER. (test 43 ML/MIN/1.73 code = 45901) CALC BUN/CREAT (test code = 26 RATIO [...] (test code = 2219) 12 U/L LIPID [id number] 00:00:00 Test Item Value Reference Range Interpretation Comments CHOLESTEROL (test code = 2210) 211 MG/DL TRIGLYCERIDES (test code = 2232) 245 MG/DL HDL CHOLESTEROL (test code = 2220) 52 MG/DL CALC LDL CHOL (test code = 2237) 122 MG/DL RISK RATIO LDL/HDL (test code = 2.35 RATIO 2238) COMPREHENSIVE METABOLIC [id number] 00:00:00 Test Item Value Reference Range Interpretation Comments GLUCOSE (test code = 2217) 138 MG/DL BUN (test code = 2208) 33 MG/DL CREATININE (test code = 2214) 1.25 MG/DL eGFR AMER. (test code 50 ML/MIN/1.73 = 33083) eGFR NON- AMER. (test 43 ML/MIN/1.73 code = 76173) CALC BUN/CREAT (test code = 26 RATIO [...] CALC GLOBULIN (test code = 2.9 G/DL 0) CALC A/G RATIO (test code = 1.5 RATIO 4) BILIRUBIN, TOTAL (test code = 0.3 MG/DL 2206) ALKALINE PHOSPHATASE (test 85 U/L code = 2204) AST (test code = 2218) 16 U/L ALT (test code = 2219) 12 U/L LIPID [id number] 00:00:00 Test Item Value Reference Range Interpretation Comments CHOLESTEROL (test code = 2210) 211 MG/DL TRIGLYCERIDES (test code = 2232) 245 MG/DL HDL CHOLESTEROL (test code = 2220) 52 MG/DL CALC LDL CHOL (test code = 2237) 122 MG/DL RISK RATIO LDL/HDL (test code = 2.35 RATIO 2238) HEMOGLOBIN [id number] 00:00:00 Test Item Value Reference Range Interpretation Comments HEMOGLOBIN A1c (test code = 13588) 7.5 % HEMOGLOBIN [id number] 00:00:00 Test Item Value Reference Range Interpretation Comments HEMOGLOBIN A1c (test code = 58496) 7.5 % HEMOGLOBIN [id number] 00:00:00 Test Item Value Reference Range Interpretation Comments HEMOGLOBIN A1c (test code = 79256) 7.5 % HEMOGLOBIN [id number] 00:00:00 Test Item Value Reference Range Interpretation Comments HEMOGLOBIN A1c (test code = 23192) 7.5 % HEMOGLOBIN [id number] 00:00:00 Test Item Value Reference Range Interpretation Comments HEMOGLOBIN A1c (test code = 80977) 7.5 % HEMOGLOBIN [id number] 00:00:00 Test Item Value Reference Range Interpretation Comments HEMOGLOBIN A1c (test code = 75568) 7.5 % HEMOGLOBIN [id number] 00:00:00 Test Item Value Reference Range Interpretation Comments HEMOGLOBIN A1c (test code = 45620) 7.5 % HEMOGLOBIN [id number] 00:00:00 Test Item Value Reference Range Interpretation Comments HEMOGLOBIN A1c (test code = 08528) 7.5 % HEMOGLOBIN [id number] 00:00:00 Test Item Value Reference Range Interpretation Comments HEMOGLOBIN A1c (test code = 10890) 7.5 % HEMOGLOBIN [id number] 00:00:00 Test Item Value Reference Range Interpretation Comments HEMOGLOBIN A1c (test code = 67080) 7.5 % TROPONIN [id number] 00:00:00 Test Item Value Reference Range Interpretation Comments TROPONIN T (test code = 4017) <0.010 UG/L TROPONIN [id number] 00:00:00 Test Item Value Reference Range Interpretation Comments TROPONIN T (test code = 4017) <0.010 UG/L TROPONIN [id number] 00:00:00 Test Item Value Reference Range Interpretation Comments TROPONIN T (test code = 4017) <0.010 UG/L TROPONIN [id number] 00:00:00 Test Item Value Reference Range Interpretation Comments TROPONIN T (test code = 4017) <0.010 UG/L TROPONIN [id number] 00:00:00 Test Item Value Reference Range Interpretation Comments TROPONIN T (test code = 4017) <0.010 UG/L TROPONIN [id number] 00:00:00 Test Item Value Reference Range Interpretation Comments TROPONIN T (test code = 4017) <0.010 UG/L COMPREHENSIVE METABOLIC [id number] 00:00:00 Test Item Value Reference Range Interpretation Comments GLUCOSE (test code = 2217) 68 MG/DL BUN (test code = 2208) 31 MG/DL CREATININE (test code = 2214) 1.10 MG/DL eGFR AMER. (test code 59 ML/MIN/1.73 = 09425) eGFR NON- AMER. (test 51 ML/MIN/1.73 code = 84991) CALC BUN/CREAT (test code = 28 RATIO [...] 2240) CALC A/G RATIO (test code = 1.6 RATIO 2234) BILIRUBIN, TOTAL (test code = 0.3 MG/DL 2206) ALKALINE PHOSPHATASE (test 80 U/L code = 2204) AST (test code = 2218) 18 U/L ALT (test code = 2219) 9 U/L COMPREHENSIVE METABOLIC [id number] 00:00:00 Test Item Value Reference Range Interpretation Comments GLUCOSE (test code = 2217) 68 MG/DL BUN (test code = 2208) 31 MG/DL CREATININE (test code = 2214) 1.10 MG/DL eGFR AMER. (test code 59 ML/MIN/1.73 = 16722) eGFR NON- AMER. (test 51 ML/MIN/1.73 code = 06853) CALC BUN/CREAT (test code = 28 RATIO 2235) SODIUM (test code = 2231) 142 MEQ/L POTASSIUM (test code = 2228) 4.8 MEQ/L CHLORIDE (test code = 2215) 105 MEQ/L CARBON DIOXIDE (test code = 21 MEQ/L 2206) CALCIUM (test code = 2209) 9.6 MG/DL PROTEIN, TOTAL (test code = 7.4 G/DL 2228) ALBUMIN (test code = 2201) 4.5 G/DL CALC GLOBULIN (test code = 2.9 G/DL 2240) CALC A/G RATIO (test code = 1.6 RATIO 2234) BILIRUBIN, TOTAL (test code = 0.3 MG/DL 2207) ALKALINE PHOSPHATASE (test 80 U/L code = 2204) AST (test code = 2218) 18 U/L ALT (test code = 2219) 9 U/L CBC W/AUTO [id number] 00:00:00 Test Item Value Reference Range Interpretation [...] code = 1015) 249 K/UL CBC W/AUTO [id number] 00:00:00 Test Item Value Reference Range Interpretation [...] code = 1015) 249 K/UL CBC W/AUTO [id number] 00:00:00 Test Item Value Reference Range Interpretation [...] (test code = 1015) 249 K/UL CK, [id number] 00:00:00 Test Item Value Reference Range Interpretation Comments CK, TOTAL (test code = 2013) 67 U/L CK, [id number] 00:00:00 Test Item Value Reference Range Interpretation Comments CK, TOTAL (test code = 2013) 67 U/L COMPREHENSIVE METABOLIC [id number] 00:00:00 Test Item Value Reference Range Interpretation Comments GLUCOSE (test code = 2217) 68 MG/DL BUN (test code = 2208) 31 MG/DL CREATININE (test code = 2214) 1.10 MG/DL eGFR AMER. (test code 59 ML/MIN/1.73 = 14974) eGFR NON- AMER. (test 51 ML/MIN/1.73 code = 77841) CALC BUN/CREAT (test code = 28 RATIO 2234) SODIUM (test code = 2231) 142 MEQ/L [...] code = 2219) 9 U/L COMPREHENSIVE METABOLIC [id number] 00:00:00 Test Item Value Reference Range Interpretation Comments GLUCOSE (test code = 2217) 68 MG/DL BUN (test code = 2208) 31 MG/DL CREATININE (test code = 2214) 1.10 MG/DL eGFR AMER. (test code 59 ML/MIN/1.73 = 97557) eGFR NON- AMER. (test 51 ML/MIN/1.73 code = 32165) CALC BUN/CREAT (test code = 28 RATIO [...] 2240) CALC A/G RATIO (test code = 1.6 RATIO 2234) BILIRUBIN, TOTAL (test code = 0.3 MG/DL 2206) ALKALINE PHOSPHATASE (test 80 U/L code = 2204) AST (test code = 2218) 18 U/L ALT (test code = 2219) 9 U/L CBC W/AUTO [id number] 00:00:00 Test Item Value Reference Range Interpretation [...] code = 1015) 249 K/UL CBC W/AUTO [id number] 00:00:00 Test Item Value Reference Range Interpretation [...] code = 1015) 249 K/UL CBC W/AUTO [id number] 00:00:00 Test Item Value Reference Range Interpretation [...] (test code = 1015) 249 K/UL CK, [id number] 00:00:00 Test Item Value Reference Range Interpretation Comments CK, TOTAL (test code = 2013) 67 U/L CK, [id number] 00:00:00 Test Item Value Reference Range Interpretation Comments CK, TOTAL (test code = 2013) 67 U/L COMPREHENSIVE METABOLIC [id number] 00:00:00 Test Item Value Reference Range Interpretation Comments GLUCOSE (test code = 2217) 68 MG/DL BUN (test code = 2208) 31 MG/DL CREATININE (test code = 2214) 1.10 MG/DL eGFR AMER. (test code 59 ML/MIN/1.73 = 99260) eGFR NON- AMER. (test 51 ML/MIN/1.73 code = 33764) CALC BUN/CREAT (test code = 28 RATIO [...] CALC GLOBULIN (test code = 2.9 G/DL 0) CALC A/G RATIO (test code = 1.6 RATIO 4) BILIRUBIN, TOTAL (test code = 0.3 MG/DL 2206) ALKALINE PHOSPHATASE (test 80 U/L code = 2204) AST (test code = 2218) 18 U/L ALT (test code = 2219) 9 U/L CBC W/AUTO [id number] 00:00:00 Test Item Value Reference Range Interpretation [...] code = 1015) 249 K/UL CBC W/AUTO [id number] 00:00:00 Test Item Value Reference Range Interpretation [...] (test code = 1015) 249 K/UL CK, [id number] 00:00:00 Test Item Value Reference Range Interpretation Comments CK, TOTAL (test code = 2013) 67 U/L COMPREHENSIVE METABOLIC [id number] 00:00:00 Test Item Value Reference Range Interpretation Comments GLUCOSE (test code = 2217) 68 MG/DL BUN (test code = 2208) 31 MG/DL CREATININE (test code = 2214) 1.10 MG/DL eGFR AMER. (test code 59 ML/MIN/1.73 = 35652) eGFR NON- AMER. (test 51 ML/MIN/1.73 code = 94105) CALC BUN/CREAT (test code = 28 RATIO [...] 2240) CALC A/G RATIO (test code = 1.6 RATIO 2234) BILIRUBIN, TOTAL (test code = 0.3 MG/DL 2206) ALKALINE PHOSPHATASE (test 80 U/L code = 2204) AST (test code = 2218) 18 U/L ALT (test code = 2219) 9 U/L CBC W/AUTO [id number] 00:00:00 Test Item Value Reference Range Interpretation [...] code = 1015) 249 K/UL CBC W/AUTO [id number] 00:00:00 Test Item Value Reference Range Interpretation [...] (test code = 1015) 249 K/UL CK, [id number] 00:00:00 Test Item Value Reference Range Interpretation Comments CK, TOTAL (test code = 2014) 67 U/L [id number] 00:00:00 Test Item Value Reference Range Interpretation Comments TSH, THIRD GENERATION (test code 3.230 UIU/ML = 2821) [id number] 00:00:00 Test Item Value Reference Range Interpretation Comments TSH, THIRD GENERATION (test code 3.230 UIU/ML = 2821) [id number] 00:00:00 Test Item Value Reference Range Interpretation Comments TSH, THIRD GENERATION (test code 3.230 UIU/ML = 2821) CBC W/AUTO [id number] 00:00:00 Test Item Value Reference Range Interpretation [...] code = 1015) 277 K/UL CBC W/AUTO [id number] 00:00:00 Test Item Value Reference Range Interpretation [...] code = 1015) 277 K/UL CBC W/AUTO [id number] 00:00:00 Test Item Value Reference Range Interpretation [...] (test code = 1015) 277 K/UL VITAMIN [id number] 00:00:00 Test Item Value Reference Range Interpretation Comments VITAMIN B-12 (test code = 2840) 528 PG/ML VITAMIN [id number] 00:00:00 Test Item Value Reference Range Interpretation Comments VITAMIN B-12 (test code = 2840) 528 PG/ML VITAMIN [id number] 00:00:00 Test Item Value Reference Range Interpretation Comments VITAMIN B-12 (test code = 2840) 528 PG/ML HEMOGLOBIN [id number] 00:00:00 Test Item Value Reference Range Interpretation Comments HEMOGLOBIN A1c (test code = 14683) 7.4 % HEMOGLOBIN [id number] 00:00:00 Test Item Value Reference Range Interpretation Comments HEMOGLOBIN A1c (test code = 64873) 7.4 % HEMOGLOBIN [id number] 00:00:00 Test Item Value Reference Range Interpretation Comments HEMOGLOBIN A1c (test code = 00281) 7.4 % LIPID PANEL WITH REFLEX DIRECT [id number] 00:00:00 Test Item Value Reference Range Interpretation Comments CHOLESTEROL (test code = 2210) 211 MG/DL TRIGLYCERIDES (test code = 2232) 257 MG/DL HDL CHOLESTEROL (test code = 2220) 54 MG/DL CALC LDL CHOL (test code = 2237) 106 MG/DL RISK RATIO LDL/HDL (test code = 1.96 RATIO 2238) LIPID PANEL WITH REFLEX DIRECT [id number] 00:00:00 Test Item Value Reference Range Interpretation Comments CHOLESTEROL (test code = 2210) 211 MG/DL TRIGLYCERIDES (test code = 2232) 257 MG/DL HDL CHOLESTEROL (test code = 2220) 54 MG/DL CALC LDL CHOL (test code = 2237) 106 MG/DL RISK RATIO LDL/HDL (test code = 1.96 RATIO 2238) COMPREHENSIVE METABOLIC [id number] 00:00:00 Test Item Value Reference Range Interpretation Comments GLUCOSE (test code = 2217) 222 MG/DL BUN (test code = 2208) 30 MG/DL CREATININE (test code = 2214) 1.26 MG/DL eGFR AMER. (test code 50 ML/MIN/1.73 = 30553) eGFR NON- AMER. (test 43 ML/MIN/1.73 code = 49147) CALC BUN/CREAT (test code = 24 RATIO 2235) SODIUM (test code = 2231) 139 MEQ/L POTASSIUM (test code = 2228) 4.7 MEQ/L CHLORIDE (test code = 2215) 101 MEQ/L CARBON DIOXIDE (test code = 20 MEQ/L 220) CALCIUM (test code = 2209) 9.2 MG/DL PROTEIN, TOTAL (test code = 7.7 G/DL 2228) ALBUMIN (test code = 2201) 4.4 G/DL CALC GLOBULIN (test code = 3.3 G/DL 2240) CALC A/G RATIO (test code = 1.3 RATIO 4) BILIRUBIN, TOTAL (test code = <0.2 MG/DL 2206) ALKALINE PHOSPHATASE (test 92 U/L code = 2204) AST (test code = 2218) 15 U/L ALT (test code = 2219) 10 U/L COMPREHENSIVE METABOLIC [id number] 00:00:00 Test Item Value Reference Range Interpretation Comments GLUCOSE (test code = 2217) 222 MG/DL BUN (test code = 2208) 30 MG/DL CREATININE (test code = 2214) 1.26 MG/DL eGFR AMER. (test code 50 ML/MIN/1.73 = 38193) eGFR NON- AMER. (test 43 ML/MIN/1.73 code = 93750) CALC BUN/CREAT (test code = 24 RATIO 2235) SODIUM (test code = 2231) 139 MEQ/L POTASSIUM (test code = 2228) 4.7 MEQ/L CHLORIDE (test code = 2215) 101 MEQ/L CARBON DIOXIDE (test code = 20 MEQ/L 2206) CALCIUM (test code = 2209) 9.2 MG/DL PROTEIN, TOTAL (test code = 7.7 G/DL 2229) ALBUMIN (test code = 2201) 4.4 G/DL CALC GLOBULIN (test code = 3.3 G/DL 2240) CALC A/G RATIO (test code = 1.3 RATIO 2234) BILIRUBIN, TOTAL (test code = <0.2 MG/DL 2207) ALKALINE PHOSPHATASE (test 92 U/L code = 2204) AST (test code = 2218) 15 U/L ALT (test code = 2219) 10 U/L [id number] 00:00:00 Test Item Value Reference Range Interpretation Comments TSH, THIRD GENERATION (test code 3.230 UIU/ML = 2821) [id number] 00:00:00 Test Item Value Reference Range Interpretation Comments TSH, THIRD GENERATION (test code 3.230 UIU/ML = 2821) [id number] 00:00:00 Test Item Value Reference Range Interpretation Comments TSH, THIRD GENERATION (test code 3.230 UIU/ML = 2821) CBC W/AUTO [id number] 00:00:00 Test Item Value Reference Range Interpretation [...] code = 1015) 277 K/UL CBC W/AUTO [id number] 00:00:00 Test Item Value Reference Range Interpretation [...] code = 1015) 277 K/UL CBC W/AUTO [id number] 00:00:00 Test Item Value Reference Range Interpretation [...] (test code = 1015) 277 K/UL VITAMIN [id number] 00:00:00 Test Item Value Reference Range Interpretation Comments VITAMIN B-12 (test code = 2840) 528 PG/ML VITAMIN [id number] 00:00:00 Test Item Value Reference Range Interpretation Comments VITAMIN B-12 (test code = 2840) 528 PG/ML VITAMIN [id number] 00:00:00 Test Item Value Reference Range Interpretation Comments VITAMIN B-12 (test code = 2840) 528 PG/ML HEMOGLOBIN [id number] 00:00:00 Test Item Value Reference Range Interpretation Comments HEMOGLOBIN A1c (test code = 75571) 7.4 % HEMOGLOBIN [id number] 00:00:00 Test Item Value Reference Range Interpretation Comments HEMOGLOBIN A1c (test code = 04012) 7.4 % HEMOGLOBIN [id number] 00:00:00 Test Item Value Reference Range Interpretation Comments HEMOGLOBIN A1c (test code = 67003) 7.4 % LIPID PANEL WITH REFLEX DIRECT [id number] 00:00:00 Test Item Value Reference Range Interpretation Comments CHOLESTEROL (test code = 2210) 211 MG/DL TRIGLYCERIDES (test code = 2232) 257 MG/DL HDL CHOLESTEROL (test code = 2220) 54 MG/DL CALC LDL CHOL (test code = 2237) 106 MG/DL RISK RATIO LDL/HDL (test code = 1.96 RATIO 2238) LIPID PANEL WITH REFLEX DIRECT [id number] 00:00:00 Test Item Value Reference Range Interpretation Comments CHOLESTEROL (test code = 2210) 211 MG/DL TRIGLYCERIDES (test code = 2232) 257 MG/DL HDL CHOLESTEROL (test code = 2220) 54 MG/DL CALC LDL CHOL (test code = 2237) 106 MG/DL RISK RATIO LDL/HDL (test code = 1.96 RATIO 2238) COMPREHENSIVE METABOLIC [id number] 00:00:00 Test Item Value Reference Range Interpretation Comments GLUCOSE (test code = 2217) 222 MG/DL BUN (test code = 2208) 30 MG/DL CREATININE (test code = 2214) 1.26 MG/DL eGFR AMER. (test code 50 ML/MIN/1.73 = 39121) eGFR NON- AMER. (test 43 ML/MIN/1.73 code = 68319) CALC BUN/CREAT (test code = 24 RATIO [...] code = 2219) 10 U/L COMPREHENSIVE METABOLIC [id number] 00:00:00 Test Item Value Reference Range Interpretation Comments GLUCOSE (test code = 2217) 222 MG/DL BUN (test code = 2208) 30 MG/DL CREATININE (test code = 2214) 1.26 MG/DL eGFR AMER. (test code 50 ML/MIN/1.73 = 24397) eGFR NON- AMER. (test 43 ML/MIN/1.73 code = 76274) CALC BUN/CREAT (test code = 24 RATIO [...] A/G RATIO (test code = 1.3 RATIO 4) BILIRUBIN, TOTAL (test code = <0.2 MG/DL 2206) ALKALINE PHOSPHATASE (test 92 U/L code = 2204) AST (test code = 2218) 15 U/L ALT (test code = 2219) 10 U/L [id number] 00:00:00 Test Item Value Reference Range Interpretation Comments TSH, THIRD GENERATION (test code 3.230 UIU/ML = 2821) [id number] 00:00:00 Test Item Value Reference Range Interpretation Comments TSH, THIRD GENERATION (test code 3.230 UIU/ML = 2821) CBC W/AUTO [id number] 00:00:00 Test Item Value Reference Range Interpretation [...] code = 1015) 277 K/UL CBC W/AUTO [id number] 00:00:00 Test Item Value Reference Range Interpretation [...] (test code = 1015) 277 K/UL VITAMIN [id number] 00:00:00 Test Item Value Reference Range Interpretation Comments VITAMIN B-12 (test code = 2840) 528 PG/ML VITAMIN [id number] 00:00:00 Test Item Value Reference Range Interpretation Comments VITAMIN B-12 (test code = 2840) 528 PG/ML HEMOGLOBIN [id number] 00:00:00 Test Item Value Reference Range Interpretation Comments HEMOGLOBIN A1c (test code = 72014) 7.4 % HEMOGLOBIN [id number] 00:00:00 Test Item Value Reference Range Interpretation Comments HEMOGLOBIN A1c (test code = 45394) 7.4 % LIPID PANEL WITH REFLEX DIRECT [id number] 00:00:00 Test Item Value Reference Range Interpretation Comments CHOLESTEROL (test code = 2210) 211 MG/DL TRIGLYCERIDES (test code = 2232) 257 MG/DL HDL CHOLESTEROL (test code = 2220) 54 MG/DL CALC LDL CHOL (test code = 2237) 106 MG/DL RISK RATIO LDL/HDL (test code = 1.96 RATIO 2238) COMPREHENSIVE METABOLIC [id number] 00:00:00 Test Item Value Reference Range Interpretation Comments GLUCOSE (test code = 2217) 222 MG/DL BUN (test code = 2208) 30 MG/DL CREATININE (test code = 2214) 1.26 MG/DL eGFR AMER. (test code 50 ML/MIN/1.73 = 51087) eGFR NON- AMER. (test 43 ML/MIN/1.73 code = 84074) CALC BUN/CREAT (test code = 24 RATIO [...] A/G RATIO (test code = 1.3 RATIO 4) BILIRUBIN, TOTAL (test code = <0.2 MG/DL 2206) ALKALINE PHOSPHATASE (test 92 U/L code = 2204) AST (test code = 2218) 15 U/L ALT (test code = 2219) 10 U/L [id number] 00:00:00 Test Item Value Reference Range Interpretation Comments TSH, THIRD GENERATION (test code 3.230 UIU/ML = 2821) [id number] 00:00:00 Test Item Value Reference Range Interpretation Comments TSH, THIRD GENERATION (test code 3.230 UIU/ML = 2821) CBC W/AUTO [id number] 00:00:00 Test Item Value Reference Range Interpretation [...] code = 1015) 277 K/UL CBC W/AUTO [id number] 00:00:00 Test Item Value Reference Range Interpretation [...] (test code = 1015) 277 K/UL VITAMIN [id number] 00:00:00 Test Item Value Reference Range Interpretation Comments VITAMIN B-12 (test code = 2840) 528 PG/ML VITAMIN [id number] 00:00:00 Test Item Value Reference Range Interpretation Comments VITAMIN B-12 (test code = 2840) 528 PG/ML HEMOGLOBIN [id number] 00:00:00 Test Item Value Reference Range Interpretation Comments HEMOGLOBIN A1c (test code = 75679) 7.4 % HEMOGLOBIN [id number] 00:00:00 Test Item Value Reference Range Interpretation Comments HEMOGLOBIN A1c (test code = 28114) 7.4 % LIPID PANEL WITH REFLEX DIRECT [id number] 00:00:00 Test Item Value Reference Range Interpretation Comments CHOLESTEROL (test code = 2210) 211 MG/DL TRIGLYCERIDES (test code = 2232) 257 MG/DL HDL CHOLESTEROL (test code = 2220) 54 MG/DL CALC LDL CHOL (test code = 2237) 106 MG/DL RISK RATIO LDL/HDL (test code = 1.96 RATIO 2238) COMPREHENSIVE METABOLIC [id number] 00:00:00 Test Item Value Reference Range Interpretation Comments GLUCOSE (test code = 2217) 222 MG/DL BUN (test code = 2208) 30 MG/DL CREATININE (test code = 2214) 1.26 MG/DL eGFR AMER. (test code 50 ML/MIN/1.73 = 02770) eGFR NON- AMER. (test 43 ML/MIN/1.73 code = 16056) CALC BUN/CREAT (test code = 24 RATIO [...] CALC GLOBULIN (test code = 3.3 G/DL 224) CALC A/G RATIO (test code = 1.3 RATIO 2234) BILIRUBIN, TOTAL (test code = <0.2 MG/DL 2206) ALKALINE PHOSPHATASE (test 92 U/L code = 2204) AST (test code = 2218) 15 U/L ALT (test code = 2219) 10 U/L UNLABELLED SPECIMEN [ADDED]2019-05-20 00:00:00 Test Item Value Reference Range Interpretation Comments NOTE: (test code = 08808) UNLABELLED SPECIMEN [ADDED]2019-05-20 00:00:00 Test Item Value Reference Range Interpretation Comments NOTE: (test code = 21781) UNLABELLED SPECIMEN [ADDED]2019-05-20 00:00:00 Test Item Value Reference Range Interpretation Comments NOTE: (test code = 72208) UNLABELLED SPECIMEN [ADDED]2019-05-20 00:00:00 Test Item Value Reference Range Interpretation Comments NOTE: (test code = 65877) CBC W/AUTO [id number] 00:00:00 Test Item Value Reference Range Interpretation [...] code = 1015) 284 K/UL CBC W/AUTO [id number] 00:00:00 Test Item Value Reference Range Interpretation [...] code = 1015) 284 K/UL CBC W/AUTO [id number] 00:00:00 Test Item Value Reference Range Interpretation [...] (test code = 1015) 284 K/UL LIPID [id number] 00:00:00 Test Item Value Reference Range Interpretation Comments CHOLESTEROL (test code = 2210) 196 MG/DL TRIGLYCERIDES (test code = 2232) 227 MG/DL HDL CHOLESTEROL (test code = 2220) 44 MG/DL CALC LDL CHOL (test code = 2237) 107 MG/DL RISK RATIO LDL/HDL (test code = 2.42 RATIO 2238) LIPID [id number] 00:00:00 Test Item Value Reference Range Interpretation Comments CHOLESTEROL (test code = 2210) 196 MG/DL TRIGLYCERIDES (test code = 2232) 227 MG/DL HDL CHOLESTEROL (test code = 2220) 44 MG/DL CALC LDL CHOL (test code = 2237) 107 MG/DL RISK RATIO LDL/HDL (test code = 2.42 RATIO 2238) HEMOGLOBIN [id number] 00:00:00 Test Item Value Reference Range Interpretation Comments HEMOGLOBIN A1c (test code = 44055) 9.0 % HEMOGLOBIN [id number] 00:00:00 Test Item Value Reference Range Interpretation Comments HEMOGLOBIN A1c (test code = 77049) 9.0 % HEMOGLOBIN [id number] 00:00:00 Test Item Value Reference Range Interpretation Comments HEMOGLOBIN A1c (test code = 80209) 9.0 % COMPREHENSIVE METABOLIC [id number] 00:00:00 Test Item Value Reference Range Interpretation Comments GLUCOSE (test code = 2217) 133 MG/DL BUN (test code = 2208) 44 MG/DL CREATININE (test code = 2214) 1.46 MG/DL eGFR AMER. (test code 42 ML/MIN/1.73 = 89691) eGFR NON- AMER. (test 36 ML/MIN/1.73 code = 80596) CALC BUN/CREAT (test code = 30 RATIO [...] ALT (test code = 2219) 17 U/L COMPREHENSIVE METABOLIC [id number] 00:00:00 Test Item Value Reference Range Interpretation Comments GLUCOSE (test code = 2217) 133 MG/DL BUN (test code = 2208) 44 MG/DL CREATININE (test code = 2214) 1.46 MG/DL eGFR AMER. (test code 42 ML/MIN/1.73 = 95261) eGFR NON- AMER. (test 36 ML/MIN/1.73 code = 29508) CALC BUN/CREAT (test code = 30 RATIO [...] = 2219) 17 U/L MICROALBUMIN/CREATININE, RANDOM AND [id number] 00:00:00 Test Item Value Reference Range Interpretation Comments CREATININE, URINE, CONC. (test 97.1 MG/DL code = 2072) ALBUMIN, URINE, RANDOM (test code 18.9 MG/DL = 73780) CALC ALBUMIN/CREAT, RND (test code 195 MG/G = 91221) MICROALBUMIN/CREATININE, RANDOM AND [id number] 00:00:00 Test Item Value Reference Range Interpretation Comments CREATININE, URINE, CONC. (test 97.1 MG/DL code = 2072) ALBUMIN, URINE, RANDOM (test code 18.9 MG/DL = 56299) CALC ALBUMIN/CREAT, RND (test code 195 MG/G = 39379) CBC W/AUTO [id number] 00:00:00 Test Item Value Reference Range Interpretation [...] code = 1015) 284 K/UL CBC W/AUTO [id number] 00:00:00 Test Item Value Reference Range Interpretation [...] code = 1015) 284 K/UL CBC W/AUTO [id number] 00:00:00 Test Item Value Reference Range Interpretation [...] (test code = 1015) 284 K/UL LIPID [id number] 00:00:00 Test Item Value Reference Range Interpretation Comments CHOLESTEROL (test code = 2210) 196 MG/DL TRIGLYCERIDES (test code = 2232) 227 MG/DL HDL CHOLESTEROL (test code = 2220) 44 MG/DL CALC LDL CHOL (test code = 2237) 107 MG/DL RISK RATIO LDL/HDL (test code = 2.42 RATIO 2238) LIPID [id number] 00:00:00 Test Item Value Reference Range Interpretation Comments CHOLESTEROL (test code = 2210) 196 MG/DL TRIGLYCERIDES (test code = 2232) 227 MG/DL HDL CHOLESTEROL (test code = 2220) 44 MG/DL CALC LDL CHOL (test code = 2237) 107 MG/DL RISK RATIO LDL/HDL (test code = 2.42 RATIO 2238) HEMOGLOBIN [id number] 00:00:00 Test Item Value Reference Range Interpretation Comments HEMOGLOBIN A1c (test code = 67102) 9.0 % HEMOGLOBIN [id number] 00:00:00 Test Item Value Reference Range Interpretation Comments HEMOGLOBIN A1c (test code = 38992) 9.0 % HEMOGLOBIN [id number] 00:00:00 Test Item Value Reference Range Interpretation Comments HEMOGLOBIN A1c (test code = 64429) 9.0 % COMPREHENSIVE METABOLIC [id number] 00:00:00 Test Item Value Reference Range Interpretation Comments GLUCOSE (test code = 2217) 133 MG/DL BUN (test code = 2208) 44 MG/DL CREATININE (test code = 2214) 1.46 MG/DL eGFR AMER. (test code 42 ML/MIN/1.73 = 53520) eGFR NON- AMER. (test 36 ML/MIN/1.73 code = 42056) CALC BUN/CREAT (test code = 30 RATIO [...] ALT (test code = 2219) 17 U/L COMPREHENSIVE METABOLIC [id number] 00:00:00 Test Item Value Reference Range Interpretation Comments GLUCOSE (test code = 2217) 133 MG/DL BUN (test code = 2208) 44 MG/DL CREATININE (test code = 2214) 1.46 MG/DL eGFR AMER. (test code 42 ML/MIN/1.73 = 34080) eGFR NON- AMER. (test 36 ML/MIN/1.73 code = 91991) CALC BUN/CREAT (test code = 30 RATIO [...] = 2219) 17 U/L MICROALBUMIN/CREATININE, RANDOM AND [id number] 00:00:00 Test Item Value Reference Range Interpretation Comments CREATININE, URINE, CONC. (test 97.1 MG/DL code = 2072) ALBUMIN, URINE, RANDOM (test code 18.9 MG/DL = 43066) CALC ALBUMIN/CREAT, RND (test code 195 MG/G = 10104) MICROALBUMIN/CREATININE, RANDOM AND [id number] 00:00:00 Test Item Value Reference Range Interpretation Comments CREATININE, URINE, CONC. (test 97.1 MG/DL code = 2072) ALBUMIN, URINE, RANDOM (test code 18.9 MG/DL = 14949) CALC ALBUMIN/CREAT, RND (test code 195 MG/G = 18069) CBC W/AUTO [id number] 00:00:00 Test Item Value Reference Range Interpretation [...] code = 1015) 284 K/UL CBC W/AUTO [id number] 00:00:00 Test Item Value Reference Range Interpretation [...] (test code = 1015) 284 K/UL LIPID [id number] 00:00:00 Test Item Value Reference Range Interpretation Comments CHOLESTEROL (test code = 2210) 196 MG/DL TRIGLYCERIDES (test code = 2232) 227 MG/DL HDL CHOLESTEROL (test code = 2220) 44 MG/DL CALC LDL CHOL (test code = 2237) 107 MG/DL RISK RATIO LDL/HDL (test code = 2.42 RATIO 2238) HEMOGLOBIN [id number] 00:00:00 Test Item Value Reference Range Interpretation Comments HEMOGLOBIN A1c (test code = 08115) 9.0 % HEMOGLOBIN [id number] 00:00:00 Test Item Value Reference Range Interpretation Comments HEMOGLOBIN A1c (test code = 06938) 9.0 % COMPREHENSIVE METABOLIC [id number] 00:00:00 Test Item Value Reference Range Interpretation Comments GLUCOSE (test code = 2217) 133 MG/DL BUN (test code = 2208) 44 MG/DL CREATININE (test code = 2214) 1.46 MG/DL eGFR AMER. (test code 42 ML/MIN/1.73 = 68331) eGFR NON- AMER. (test 36 ML/MIN/1.73 code = 86997) CALC BUN/CREAT (test code = 30 RATIO [...] = 2219) 17 U/L MICROALBUMIN/CREATININE, RANDOM AND [id number] 00:00:00 Test Item Value Reference Range Interpretation Comments CREATININE, URINE, CONC. (test 97.1 MG/DL code = 2072) ALBUMIN, URINE, RANDOM (test code 18.9 MG/DL = 17924) CALC ALBUMIN/CREAT, RND (test code 195 MG/G = 08662) CBC W/AUTO [id number] 00:00:00 Test Item Value Reference Range Interpretation [...] code = 1015) 284 K/UL CBC W/AUTO [id number] 00:00:00 Test Item Value Reference Range Interpretation [...] (test code = 1015) 284 K/UL LIPID [id number] 00:00:00 Test Item Value Reference Range Interpretation Comments CHOLESTEROL (test code = 2210) 196 MG/DL TRIGLYCERIDES (test code = 2232) 227 MG/DL HDL CHOLESTEROL (test code = 2220) 44 MG/DL CALC LDL CHOL (test code = 2237) 107 MG/DL RISK RATIO LDL/HDL (test code = 2.42 RATIO 2238) HEMOGLOBIN [id number] 00:00:00 Test Item Value Reference Range Interpretation Comments HEMOGLOBIN A1c (test code = 88622) 9.0 % HEMOGLOBIN [id number] 00:00:00 Test Item Value Reference Range Interpretation Comments HEMOGLOBIN A1c (test code = 07688) 9.0 % COMPREHENSIVE METABOLIC [id number] 00:00:00 Test Item Value Reference Range Interpretation Comments GLUCOSE (test code = 2217) 133 MG/DL BUN (test code = 2208) 44 MG/DL CREATININE (test code = 2214) 1.46 MG/DL eGFR AMER. (test code 42 ML/MIN/1.73 = 59435) eGFR NON- AMER. (test 36 ML/MIN/1.73 code = 18905) CALC BUN/CREAT (test code = 30 RATIO 223) SODIUM (test code = 2231) 142 MEQ/L POTASSIUM (test code = 2228) 5.3 MEQ/L CHLORIDE (test code = 2215) 106 MEQ/L CARBON DIOXIDE (test code = 23 MEQ/L 2205) CALCIUM (test code = 2209) 9.6 MG/DL PROTEIN, TOTAL (test code = 7.2 G/DL 2228) ALBUMIN (test code = 2201) 4.3 G/DL CALC GLOBULIN (test code = 2.9 G/DL 0) CALC A/G RATIO (test code = 1.5 RATIO 223) BILIRUBIN, TOTAL (test code = 0.3 MG/DL 2206) ALKALINE PHOSPHATASE (test 96 U/L code = 2204) AST (test code = 2218) 19 U/L ALT (test code = 2219) 17 U/L MICROALBUMIN/CREATININE, RANDOM AND [id number] 00:00:00 Test Item Value Reference Range Interpretation Comments CREATININE, URINE, CONC. (test 97.1 MG/DL code = 2072) ALBUMIN, URINE, RANDOM (test code 18.9 MG/DL = 75725) CALC ALBUMIN/CREAT, RND (test code 195 MG/G = 43060) COMPREHENSIVE METABOLIC [id number] 00:00:00 Test Item Value Reference Range Interpretation Comments GLUCOSE (test code = 2217) 235 MG/DL BUN (test code = 2208) 36 MG/DL CREATININE (test code = 2214) 1.62 MG/DL eGFR AMER. (test code 37 ML/MIN/1.73 = 29798) eGFR NON- AMER. (test 32 ML/MIN/1.73 code = 31285) CALC BUN/CREAT (test code = 22 RATIO [...] CALC GLOBULIN (test code = 3.0 G/DL 0) CALC A/G RATIO (test code = 1.4 RATIO 2233) BILIRUBIN, TOTAL (test code = 0.3 MG/DL 2206) ALKALINE PHOSPHATASE (test 85 U/L code = 2204) AST (test code = 2218) 15 U/L ALT (test code = 2219) 9 U/L COMPREHENSIVE METABOLIC [id number] 00:00:00 Test Item Value Reference Range Interpretation Comments GLUCOSE (test code = 2217) 235 MG/DL BUN (test code = 2208) 36 MG/DL CREATININE (test code = 2214) 1.62 MG/DL eGFR AMER. (test code 37 ML/MIN/1.73 = 08402) eGFR NON- AMER. (test 32 ML/MIN/1.73 code = 41091) CALC BUN/CREAT (test code = 22 RATIO 2235) SODIUM (test code = 2231) 143 MEQ/L POTASSIUM (test code = 2228) 4.7 MEQ/L CHLORIDE (test code = 2215) 105 MEQ/L CARBON DIOXIDE (test code = 23 MEQ/L 2206) CALCIUM (test code = 2209) 9.6 MG/DL PROTEIN, TOTAL (test code = 7.3 G/DL 222) ALBUMIN (test code = 2201) 4.3 G/DL CALC GLOBULIN (test code = 3.0 G/DL 2240) CALC A/G RATIO (test code = 1.4 RATIO 2234) BILIRUBIN, TOTAL (test code = 0.3 MG/DL 2206) ALKALINE PHOSPHATASE (test 85 U/L code = 2204) AST (test code = 2218) 15 U/L ALT (test code = 2219) 9 U/L COMPREHENSIVE METABOLIC [id number] 00:00:00 Test Item Value Reference Range Interpretation Comments GLUCOSE (test code = 2217) 235 MG/DL BUN (test code = 2208) 36 MG/DL CREATININE (test code = 2214) 1.62 MG/DL eGFR AMER. (test code 37 ML/MIN/1.73 = 58720) eGFR NON- AMER. (test 32 ML/MIN/1.73 code = 09579) CALC BUN/CREAT (test code = 22 RATIO [...] code = 2219) 9 U/L COMPREHENSIVE METABOLIC [id number] 00:00:00 Test Item Value Reference Range Interpretation Comments GLUCOSE (test code = 2217) 235 MG/DL BUN (test code = 2208) 36 MG/DL CREATININE (test code = 2214) 1.62 MG/DL eGFR AMER. (test code 37 ML/MIN/1.73 = 43840) eGFR NON- AMER. (test 32 ML/MIN/1.73 code = 42113) CALC BUN/CREAT (test code = 22 RATIO [...] code = 2219) 9 U/L COMPREHENSIVE METABOLIC [id number] 00:00:00 Test Item Value Reference Range Interpretation Comments GLUCOSE (test code = 2217) 235 MG/DL BUN (test code = 2208) 36 MG/DL CREATININE (test code = 2214) 1.62 MG/DL eGFR AMER. (test code 37 ML/MIN/1.73 = 74195) eGFR NON- AMER. (test 32 ML/MIN/1.73 code = 30611) CALC BUN/CREAT (test code = 22 RATIO [...] code = 2219) 9 U/L COMPREHENSIVE METABOLIC [id number] 00:00:00 Test Item Value Reference Range Interpretation Comments GLUCOSE (test code = 2217) 235 MG/DL BUN (test code = 2208) 36 MG/DL CREATININE (test code = 2214) 1.62 MG/DL eGFR AMER. (test code 37 ML/MIN/1.73 = 82940) eGFR NON- AMER. (test 32 ML/MIN/1.73 code = 51790) CALC BUN/CREAT (test code = 22 RATIO [...] code = 2219) 9 U/L CBC W/AUTO [id number] 00:00:00 Test Item Value Reference Range Interpretation [...] code = 1015) 247 K/UL CBC W/AUTO [id number] 00:00:00 Test Item Value Reference Range Interpretation [...] code = 1015) 247 K/UL CBC W/AUTO [id number] 00:00:00 Test Item Value Reference Range Interpretation [...] (test code = 1015) 247 K/UL HEMOGLOBIN [id number] 00:00:00 Test Item Value Reference Range Interpretation Comments HEMOGLOBIN A1c (test code = 40375) 7.1 % HEMOGLOBIN [id number] 00:00:00 Test Item Value Reference Range Interpretation Comments HEMOGLOBIN A1c (test code = 56421) 7.1 % HEMOGLOBIN [id number] 00:00:00 Test Item Value Reference Range Interpretation Comments HEMOGLOBIN A1c (test code = 97821) 7.1 % COMPREHENSIVE METABOLIC [id number] 00:00:00 Test Item Value Reference Range Interpretation Comments GLUCOSE (test code = 2217) 116 MG/DL BUN (test code = 2208) 35 MG/DL CREATININE (test code = 2214) 1.31 MG/DL eGFR AMER. (test code 48 ML/MIN/1.73 = 97551) eGFR NON- AMER. (test 41 ML/MIN/1.73 code = 21672) CALC BUN/CREAT (test code = 27 RATIO [...] code = 2219) 10 U/L COMPREHENSIVE METABOLIC [id number] 00:00:00 Test Item Value Reference Range Interpretation Comments GLUCOSE (test code = 2217) 116 MG/DL BUN (test code = 2208) 35 MG/DL CREATININE (test code = 2214) 1.31 MG/DL eGFR AMER. (test code 48 ML/MIN/1.73 = 39171) eGFR NON- AMER. (test 41 ML/MIN/1.73 code = 36743) CALC BUN/CREAT (test code = 27 RATIO [...] A/G RATIO (test code = 1.5 RATIO 4) BILIRUBIN, TOTAL (test code = 0.2 MG/DL 2206) ALKALINE PHOSPHATASE (test 78 U/L code = 2204) AST (test code = 2218) 15 U/L ALT (test code = 2219) 10 U/L CBC W/AUTO [id number] 00:00:00 Test Item Value Reference Range Interpretation [...] code = 1015) 247 K/UL CBC W/AUTO [id number] 00:00:00 Test Item Value Reference Range Interpretation [...] code = 1015) 247 K/UL CBC W/AUTO [id number] 00:00:00 Test Item Value Reference Range Interpretation [...] (test code = 1015) 247 K/UL HEMOGLOBIN [id number] 00:00:00 Test Item Value Reference Range Interpretation Comments HEMOGLOBIN A1c (test code = 35870) 7.1 % HEMOGLOBIN [id number] 00:00:00 Test Item Value Reference Range Interpretation Comments HEMOGLOBIN A1c (test code = 28346) 7.1 % HEMOGLOBIN [id number] 00:00:00 Test Item Value Reference Range Interpretation Comments HEMOGLOBIN A1c (test code = 69001) 7.1 % COMPREHENSIVE METABOLIC [id number] 00:00:00 Test Item Value Reference Range Interpretation Comments GLUCOSE (test code = 2217) 116 MG/DL BUN (test code = 2208) 35 MG/DL CREATININE (test code = 2214) 1.31 MG/DL eGFR AMER. (test code 48 ML/MIN/1.73 = 77403) eGFR NON- AMER. (test 41 ML/MIN/1.73 code = 78877) CALC BUN/CREAT (test code = 27 RATIO [...] code = 2219) 10 U/L COMPREHENSIVE METABOLIC [id number] 00:00:00 Test Item Value Reference Range Interpretation Comments GLUCOSE (test code = 2217) 116 MG/DL BUN (test code = 2208) 35 MG/DL CREATININE (test code = 2214) 1.31 MG/DL eGFR AMER. (test code 48 ML/MIN/1.73 = 38206) eGFR NON- AMER. (test 41 ML/MIN/1.73 code = 18313) CALC BUN/CREAT (test code = 27 RATIO [...] code = 2219) 10 U/L CBC W/AUTO [id number] 00:00:00 Test Item Value Reference Range Interpretation [...] code = 1015) 247 K/UL CBC W/AUTO [id number] 00:00:00 Test Item Value Reference Range Interpretation [...] (test code = 1015) 247 K/UL HEMOGLOBIN [id number] 00:00:00 Test Item Value Reference Range Interpretation Comments HEMOGLOBIN A1c (test code = 43309) 7.1 % HEMOGLOBIN [id number] 00:00:00 Test Item Value Reference Range Interpretation Comments HEMOGLOBIN A1c (test code = 64708) 7.1 % COMPREHENSIVE METABOLIC [id number] 00:00:00 Test Item Value Reference Range Interpretation Comments GLUCOSE (test code = 2217) 116 MG/DL BUN (test code = 2208) 35 MG/DL CREATININE (test code = 2214) 1.31 MG/DL eGFR AMER. (test code 48 ML/MIN/1.73 = 86051) eGFR NON- AMER. (test 41 ML/MIN/1.73 code = 79659) CALC BUN/CREAT (test code = 27 RATIO [...] A/G RATIO (test code = 1.5 RATIO 2233) BILIRUBIN, TOTAL (test code = 0.2 MG/DL 2206) ALKALINE PHOSPHATASE (test 78 U/L code = 2204) AST (test code = 2218) 15 U/L ALT (test code = 2219) 10 U/L CBC W/AUTO [id number] 00:00:00 Test Item Value Reference Range Interpretation [...] code = 1015) 247 K/UL CBC W/AUTO [id number] 00:00:00 Test Item Value Reference Range Interpretation [...] (test code = 1015) 247 K/UL HEMOGLOBIN [id number] 00:00:00 Test Item Value Reference Range Interpretation Comments HEMOGLOBIN A1c (test code = 90341) 7.1 % HEMOGLOBIN [id number] 00:00:00 Test Item Value Reference Range Interpretation Comments HEMOGLOBIN A1c (test code = 31289) 7.1 % COMPREHENSIVE METABOLIC [id number] 00:00:00 Test Item Value Reference Range Interpretation Comments GLUCOSE (test code = 2217) 116 MG/DL BUN (test code = 2208) 35 MG/DL CREATININE (test code = 2214) 1.31 MG/DL eGFR AMER. (test code 48 ML/MIN/1.73 = 69691) eGFR NON- AMER. (test 41 ML/MIN/1.73 code = 98490) CALC BUN/CREAT (test code = 27 RATIO [...] CALC GLOBULIN (test code = 2.9 G/DL 0) CALC A/G RATIO (test code = 1.5 RATIO 2233) BILIRUBIN, TOTAL (test code = 0.2 MG/DL 2206) ALKALINE PHOSPHATASE (test 78 U/L code = 2204) AST (test code = 2218) 15 U/L ALT (test code = 2219) 10 U/L COMPREHENSIVE METABOLIC [id number] 00:00:00 Test Item Value Reference Range Interpretation Comments GLUCOSE (test code = 2217) 209 MG/DL BUN (test code = 2208) 44 MG/DL CREATININE (test code = 2214) 1.50 MG/DL eGFR AMER. (test code 41 ML/MIN/1.73 = 57312) eGFR NON- AMER. (test 35 ML/MIN/1.73 code = 32700) CALC BUN/CREAT (test code = 29 RATIO 2235) SODIUM (test code = 2231) 144 MEQ/L POTASSIUM (test code = 2228) 4.7 MEQ/L CHLORIDE (test code = 2215) 101 MEQ/L CARBON DIOXIDE (test code = 23 MEQ/L 220) CALCIUM (test code = 2209) 9.2 MG/DL PROTEIN, TOTAL (test code = 7.5 G/DL 222) ALBUMIN (test code = 2201) 4.5 G/DL CALC GLOBULIN (test code = 3.0 G/DL 2240) CALC A/G RATIO (test code = 1.5 RATIO 2234) BILIRUBIN, TOTAL (test code = <0.2 MG/DL 2206) ALKALINE PHOSPHATASE (test 81 U/L code = 2204) AST (test code = 2218) 14 U/L ALT (test code = 2219) 13 U/L COMPREHENSIVE METABOLIC [id number] 00:00:00 Test Item Value Reference Range Interpretation Comments GLUCOSE (test code = 2217) 209 MG/DL BUN (test code = 2208) 44 MG/DL CREATININE (test code = 2214) 1.50 MG/DL eGFR AMER. (test code 41 ML/MIN/1.73 = 24908) eGFR NON- AMER. (test 35 ML/MIN/1.73 code = 48865) CALC BUN/CREAT (test code = 29 RATIO [...] (test code = 2219) 13 U/L LIPID [id number] 00:00:00 Test Item Value Reference Range Interpretation Comments CHOLESTEROL (test code = 2210) 195 MG/DL TRIGLYCERIDES (test code = 2232) 195 MG/DL HDL CHOLESTEROL (test code = 2220) 49 MG/DL CALC LDL CHOL (test code = 2237) 107 MG/DL RISK RATIO LDL/HDL (test code = 2.18 RATIO 2238) LIPID [id number] 00:00:00 Test Item Value Reference Range Interpretation Comments CHOLESTEROL (test code = 2210) 195 MG/DL TRIGLYCERIDES (test code = 2232) 195 MG/DL HDL CHOLESTEROL (test code = 2220) 49 MG/DL CALC LDL CHOL (test code = 2237) 107 MG/DL RISK RATIO LDL/HDL (test code = 2.18 RATIO 2238) CBC W/AUTO [id number] 00:00:00 Test Item Value Reference Range Interpretation [...] code = 1015) 245 K/UL CBC W/AUTO [id number] 00:00:00 Test Item Value Reference Range Interpretation [...] code = 1015) 245 K/UL CBC W/AUTO [id number] 00:00:00 Test Item Value Reference Range Interpretation [...] (test code = 1015) 245 K/UL HEMOGLOBIN [id number] 00:00:00 Test Item Value Reference Range Interpretation Comments HEMOGLOBIN A1c (test code = 46197) 7.8 % HEMOGLOBIN [id number] 00:00:00 Test Item Value Reference Range Interpretation Comments HEMOGLOBIN A1c (test code = 79918) 7.8 % HEMOGLOBIN [id number] 00:00:00 Test Item Value Reference Range Interpretation Comments HEMOGLOBIN A1c (test code = 13502) 7.8 % COMPREHENSIVE METABOLIC [id number] 00:00:00 Test Item Value Reference Range Interpretation Comments GLUCOSE (test code = 2217) 209 MG/DL BUN (test code = 2208) 44 MG/DL CREATININE (test code = 2214) 1.50 MG/DL eGFR AMER. (test code 41 ML/MIN/1.73 = 25869) eGFR NON- AMER. (test 35 ML/MIN/1.73 code = 57136) CALC BUN/CREAT (test code = 29 RATIO 2235) SODIUM (test code = 2231) 144 MEQ/L POTASSIUM (test code = 2228) 4.7 MEQ/L CHLORIDE (test code = 2215) 101 MEQ/L CARBON DIOXIDE (test code = 23 MEQ/L 2206) CALCIUM (test code = 2209) 9.2 MG/DL [...] ALT (test code = 2219) 13 U/L COMPREHENSIVE METABOLIC [id number] 00:00:00 Test Item Value Reference Range Interpretation Comments GLUCOSE (test code = 2217) 209 MG/DL BUN (test code = 2208) 44 MG/DL CREATININE (test code = 2214) 1.50 MG/DL eGFR AMER. (test code 41 ML/MIN/1.73 = 66706) eGFR NON- AMER. (test 35 ML/MIN/1.73 code = 14499) CALC BUN/CREAT (test code = 29 RATIO [...] (test code = 2219) 13 U/L LIPID [id number] 00:00:00 Test Item Value Reference Range Interpretation Comments CHOLESTEROL (test code = 2210) 195 MG/DL TRIGLYCERIDES (test code = 2232) 195 MG/DL HDL CHOLESTEROL (test code = 2220) 49 MG/DL CALC LDL CHOL (test code = 2237) 107 MG/DL RISK RATIO LDL/HDL (test code = 2.18 RATIO 2238) LIPID [id number] 00:00:00 Test Item Value Reference Range Interpretation Comments CHOLESTEROL (test code = 2210) 195 MG/DL TRIGLYCERIDES (test code = 2232) 195 MG/DL HDL CHOLESTEROL (test code = 2220) 49 MG/DL CALC LDL CHOL (test code = 2237) 107 MG/DL RISK RATIO LDL/HDL (test code = 2.18 RATIO 2238) CBC W/AUTO [id number] 00:00:00 Test Item Value Reference Range Interpretation [...] code = 1015) 245 K/UL CBC W/AUTO [id number] 00:00:00 Test Item Value Reference Range Interpretation [...] code = 1015) 245 K/UL CBC W/AUTO [id number] 00:00:00 Test Item Value Reference Range Interpretation [...] (test code = 1015) 245 K/UL HEMOGLOBIN [id number] 00:00:00 Test Item Value Reference Range Interpretation Comments HEMOGLOBIN A1c (test code = 89547) 7.8 % HEMOGLOBIN [id number] 00:00:00 Test Item Value Reference Range Interpretation Comments HEMOGLOBIN A1c (test code = 99984) 7.8 % HEMOGLOBIN [id number] 00:00:00 Test Item Value Reference Range Interpretation Comments HEMOGLOBIN A1c (test code = 19652) 7.8 % COMPREHENSIVE METABOLIC [id number] 00:00:00 Test Item Value Reference Range Interpretation Comments GLUCOSE (test code = 2217) 209 MG/DL BUN (test code = 2208) 44 MG/DL CREATININE (test code = 2214) 1.50 MG/DL eGFR AMER. (test code 41 ML/MIN/1.73 = 49812) eGFR NON- AMER. (test 35 ML/MIN/1.73 code = 40255) CALC BUN/CREAT (test code = 29 RATIO 2235) SODIUM (test code = 2231) 144 MEQ/L POTASSIUM (test code = 2228) 4.7 MEQ/L CHLORIDE (test code = 2215) 101 MEQ/L CARBON DIOXIDE (test code = 23 MEQ/L 220) CALCIUM (test code = 2209) 9.2 MG/DL PROTEIN, TOTAL (test code = 7.5 G/DL 222) ALBUMIN (test code = 2201) 4.5 G/DL CALC GLOBULIN (test code = 3.0 G/DL 2240) CALC A/G RATIO (test code = 1.5 RATIO 2234) BILIRUBIN, TOTAL (test code = <0.2 MG/DL 2207) ALKALINE PHOSPHATASE (test 81 U/L code = 2204) AST (test code = 2218) 14 U/L ALT (test code = 2219) 13 U/L LIPID [id number] 00:00:00 Test Item Value Reference Range Interpretation Comments CHOLESTEROL (test code = 2210) 195 MG/DL TRIGLYCERIDES (test code = 2232) 195 MG/DL HDL CHOLESTEROL (test code = 2220) 49 MG/DL CALC LDL CHOL (test code = 2237) 107 MG/DL RISK RATIO LDL/HDL (test code = 2.18 RATIO 2238) CBC W/AUTO [id number] 00:00:00 Test Item Value Reference Range Interpretation [...] code = 1015) 245 K/UL CBC W/AUTO [id number] 00:00:00 Test Item Value Reference Range Interpretation [...] (test code = 1015) 245 K/UL HEMOGLOBIN [id number] 00:00:00 Test Item Value Reference Range Interpretation Comments HEMOGLOBIN A1c (test code = 25279) 7.8 % HEMOGLOBIN [id number] 00:00:00 Test Item Value Reference Range Interpretation Comments HEMOGLOBIN A1c (test code = 46459) 7.8 % COMPREHENSIVE METABOLIC [id number] 00:00:00 Test Item Value Reference Range Interpretation Comments GLUCOSE (test code = 2217) 209 MG/DL BUN (test code = 2208) 44 MG/DL CREATININE (test code = 2214) 1.50 MG/DL eGFR AMER. (test code 41 ML/MIN/1.73 = 90067) eGFR NON- AMER. (test 35 ML/MIN/1.73 code = 08656) CALC BUN/CREAT (test code = 29 RATIO 2235) SODIUM (test code = 2231) 144 MEQ/L POTASSIUM (test code = 2228) 4.7 MEQ/L CHLORIDE (test code = 2215) 101 MEQ/L CARBON DIOXIDE (test code = 23 MEQ/L 220) CALCIUM (test code = 2209) 9.2 MG/DL [...] (test code = 2219) 13 U/L LIPID [id number] 00:00:00 Test Item Value Reference Range Interpretation Comments CHOLESTEROL (test code = 2210) 195 MG/DL TRIGLYCERIDES (test code = 2232) 195 MG/DL HDL CHOLESTEROL (test code = 2220) 49 MG/DL CALC LDL CHOL (test code = 2237) 107 MG/DL RISK RATIO LDL/HDL (test code = 2.18 RATIO 2238) CBC W/AUTO [id number] 00:00:00 Test Item Value Reference Range Interpretation [...] code = 1015) 245 K/UL CBC W/AUTO [id number] 00:00:00 Test Item Value Reference Range Interpretation [...] (test code = 1015) 245 K/UL HEMOGLOBIN [id number] 00:00:00 Test Item Value Reference Range Interpretation Comments HEMOGLOBIN A1c (test code = 28081) 7.8 % HEMOGLOBIN [id number] 00:00:00 Test Item Value Reference Range Interpretation Comments HEMOGLOBIN A1c (test code = 71602) 7.8 % CBC W/AUTO DIFF WITH PLATELETS [...] Interpretation Comments HEMOGLOBIN A1c (test code = 64413) 7.3 % HEMOGLOBIN A1c [ADDED]2018-02-14 00:00:00 Test Item Value Reference Range Interpretation Comments HEMOGLOBIN A1c (test code = 64789) 7.3 % HEMOGLOBIN A1c [ADDED]2018-02-14 00:00:00 Test Item Value Reference Range Interpretation Comments HEMOGLOBIN A1c (test code = 54148) 7.3 % LIPID PANEL [ADDED]2018-02-14 00:00:00 Test Item Value Reference Range Interpretation Comments CHOLESTEROL (test code = 2210) 261 MG/DL TRIGLYCERIDES (test code = 2232) 239 MG/DL HDL CHOLESTEROL (test code = 2220) 52 MG/DL CALC LDL CHOL (test code = 2237) 161 MG/DL RISK RATIO LDL/HDL (test code = 3.10 RATIO 2238) LIPID PANEL [ADDED]2018-02-14 00:00:00 Test Item Value [...] eGFR AMER. (test code 55 ML/MIN/1.73 = 34833) eGFR NON- AMER. (test 48 ML/MIN/1.73 code = 65345) CALC BUN/CREAT (test code = 17 RATIO 2235) SODIUM (test code = 2231) 141 MEQ/L POTASSIUM (test code = 2228) 4.5 MEQ/L CHLORIDE (test code = 2215) 106 MEQ/L CARBON DIOXIDE (test code = 22 MEQ/L 2206) CALCIUM (test code = 2209) 9.3 MG/DL PROTEIN, TOTAL (test code = 7.3 G/DL 222) ALBUMIN (test code = 2201) 4.2 G/DL CALC GLOBULIN (test code = 3.1 G/DL 2240) CALC A/G RATIO (test code = 1.4 RATIO 2234) BILIRUBIN, TOTAL (test code = <0.2 MG/DL 2206) ALKALINE PHOSPHATASE (test 80 U/L code = 2204) AST (test code = 2218) 16 U/L ALT (test code = 2219) 13 U/L COMPREHENSIVE METABOLIC PANEL [ADDED]2018-02-14 00:00:00 Test Item Value Reference Range Interpretation Comments GLUCOSE (test code = 2217) 177 MG/DL BUN (test code = 2208) 20 MG/DL CREATININE (test code = 2214) 1.17 MG/DL eGFR AMER. (test code 55 ML/MIN/1.73 = 59105) eGFR NON- AMER. (test 48 ML/MIN/1.73 code = 68290) CALC BUN/CREAT (test code = 17 RATIO 2235) SODIUM (test code = 2231) 141 MEQ/L POTASSIUM (test code = 2228) 4.5 MEQ/L CHLORIDE (test code = 2215) 106 MEQ/L CARBON DIOXIDE (test code = 22 MEQ/L 2206) CALCIUM (test code = 2209) [...] URINE, RANDOM (test code 226.7 MG/DL = 31123) CALC ALBUMIN/CREAT, RND (test 1246 MG/G code = 85649) ALBUMIN/CREATININE RATIO, RANDOM URINE [ADDED]2018-02-14 00:00:00 Test Item Value Reference Range Interpretation Comments CREATININE, URINE, CONC. (test 181.9 MG/DL code = 2072) ALBUMIN, URINE, RANDOM (test code 226.7 MG/DL = 05086) CALC ALBUMIN/CREAT, RND (test 1246 MG/G code = 65626) CBC W/AUTO DIFF WITH PLATELETS [ADDED]2018-02-14 00:00:00 [...] Interpretation Comments HEMOGLOBIN A1c (test code = 60374) 7.3 % HEMOGLOBIN A1c [ADDED]2018-02-14 00:00:00 Test Item Value Reference Range Interpretation Comments HEMOGLOBIN A1c (test code = 91557) 7.3 % HEMOGLOBIN A1c [ADDED]2018-02-14 00:00:00 Test Item Value Reference Range Interpretation Comments HEMOGLOBIN A1c (test code = 57370) 7.3 % LIPID PANEL [ADDED]2018-02-14 00:00:00 Test Item Value Reference Range Interpretation Comments CHOLESTEROL (test code = 2210) 261 MG/DL TRIGLYCERIDES (test code = 2232) 239 MG/DL HDL CHOLESTEROL (test code = 2220) 52 MG/DL CALC LDL CHOL (test code = 2237) 161 MG/DL RISK RATIO LDL/HDL (test code = 3.10 RATIO 2238) LIPID PANEL [ADDED]2018-02-14 00:00:00 Test Item Value [...] eGFR AMER. (test code 55 ML/MIN/1.73 = 27379) eGFR NON- AMER. (test 48 ML/MIN/1.73 code = 74055) CALC BUN/CREAT (test code = 17 RATIO 2235) SODIUM (test code = 2231) 141 MEQ/L POTASSIUM (test code = 2228) 4.5 MEQ/L CHLORIDE (test code = 2215) 106 MEQ/L CARBON DIOXIDE (test code = 22 MEQ/L 220) CALCIUM (test code = 2209) 9.3 MG/DL PROTEIN, TOTAL (test code = 7.3 G/DL 222) ALBUMIN (test code = 2201) 4.2 G/DL CALC GLOBULIN (test code = 3.1 G/DL 2240) CALC A/G RATIO (test code = 1.4 RATIO 2234) BILIRUBIN, TOTAL (test code = <0.2 MG/DL 2207) ALKALINE PHOSPHATASE (test 80 U/L code = 2204) AST (test code = 2218) 16 U/L ALT (test code = 2219) 13 U/L COMPREHENSIVE METABOLIC PANEL [ADDED]2018-02-14 00:00:00 Test Item Value Reference Range Interpretation Comments GLUCOSE (test code = 2217) 177 MG/DL BUN (test code = 2208) 20 MG/DL CREATININE (test code = 2214) 1.17 MG/DL eGFR AMER. (test code 55 ML/MIN/1.73 = 68447) eGFR NON- AMER. (test 48 ML/MIN/1.73 code = 21631) CALC BUN/CREAT (test code = 17 RATIO [...] URINE, RANDOM (test code 226.7 MG/DL = 27421) CALC ALBUMIN/CREAT, RND (test 1246 MG/G code = 17209) ALBUMIN/CREATININE RATIO, RANDOM URINE [ADDED]2018-02-14 00:00:00 Test Item Value Reference Range Interpretation Comments CREATININE, URINE, CONC. (test 181.9 MG/DL code = 2072) ALBUMIN, URINE, RANDOM (test code 226.7 MG/DL = 32158) CALC ALBUMIN/CREAT, RND (test 1246 MG/G code = 34522) CBC W/AUTO DIFF WITH PLATELETS [ADDED]2018-02-14 00:00:00 [...] Interpretation Comments HEMOGLOBIN A1c (test code = 23787) 7.3 % HEMOGLOBIN A1c [ADDED]2018-02-14 00:00:00 Test Item Value Reference Range Interpretation Comments HEMOGLOBIN A1c (test code = 57428) 7.3 % LIPID PANEL [ADDED]2018-02-14 00:00:00 Test [...] eGFR AMER. (test code 55 ML/MIN/1.73 = 44848) eGFR NON- AMER. (test 48 ML/MIN/1.73 code = 43104) CALC BUN/CREAT (test code = 17 RATIO 2235) SODIUM (test code = 2231) 141 MEQ/L POTASSIUM (test code = 2228) 4.5 MEQ/L CHLORIDE (test code = 2215) 106 MEQ/L CARBON DIOXIDE (test code = 22 MEQ/L 2205) CALCIUM (test code = 2209) 9.3 MG/DL PROTEIN, TOTAL (test code = 7.3 G/DL 222) ALBUMIN (test code = 2201) 4.2 G/DL CALC GLOBULIN (test code = 3.1 G/DL 224) CALC A/G RATIO (test code = 1.4 RATIO 223) BILIRUBIN, TOTAL (test code = <0.2 MG/DL 2206) ALKALINE PHOSPHATASE (test 80 U/L code = 2203) AST (test code = 2218) 16 U/L ALT (test code = 2219) 13 U/L ALBUMIN/CREATININE RATIO, RANDOM URINE [ADDED]2018-02-14 00:00:00 Test Item Value Reference Range Interpretation Comments CREATININE, URINE, CONC. (test 181.9 MG/DL code = 2071) ALBUMIN, URINE, RANDOM (test code 226.7 MG/DL = 43182) CALC ALBUMIN/CREAT, RND (test 1246 MG/G code = 56439) CBC W/AUTO DIFF WITH PLATELETS [ADDED]2018-02-14 00:00:00 [...] Interpretation Comments HEMOGLOBIN A1c (test code = 85765) 7.3 % HEMOGLOBIN A1c [ADDED]2018-02-14 00:00:00 Test Item Value Reference Range Interpretation Comments HEMOGLOBIN A1c (test code = 09194) 7.3 % LIPID PANEL [ADDED]2018-02-14 00:00:00 Test [...] eGFR AMER. (test code 55 ML/MIN/1.73 = 28088) eGFR NON- AMER. (test 48 ML/MIN/1.73 code = 60695) CALC BUN/CREAT (test code = 17 RATIO [...] URINE, RANDOM (test code 226.7 MG/DL = 47581) CALC ALBUMIN/CREAT, RND (test 1246 MG/G code = 76852) HEMOGLOBIN [id number] 00:00:00 Test Item Value Reference Range Interpretation Comments HEMOGLOBIN A1c (test code = 72812) 7.5 % HEMOGLOBIN [id number] 00:00:00 Test Item Value Reference Range Interpretation Comments HEMOGLOBIN A1c (test code = 93258) 7.5 % WEEMS AND TILE BURNER [id number] 00:00:00 Test Item Value Reference Range Interpretation Comments WEEMS (Sm) ANTIBODY (test code = <0.2 AI 79995) TILE BURNER ANTIBODY (test code = 15999) 6.4 AI HEMOGLOBIN [id number] 00:00:00 Test Item Value Reference Range Interpretation Comments HEMOGLOBIN A1c (test code = 40560) 7.5 % WE[employer] TI[employer]UR[employer] [id number] 00:00:00 Test Item Value Reference Range Interpretation Comments WEEMS (Sm) ANTIBODY (test code = <0.2 AI 01939) TILE BURNER ANTIBODY (test code = 80894) 6.4 AI DNA DS ANTIBODY [id number] 00:00:00 Test Item Value Reference Range Interpretation Comments dsDNA ANTIBODY REFLEX (test code = NEGATIVE 44125) DNA DS ANTIBODY [id number] 00:00:00 Test Item Value Reference Range Interpretation Comments dsDNA ANTIBODY REFLEX (test code = NEGATIVE 68932) LIPID PANEL [ADDED]2017-07-31 00:00:00 Test Item Value Reference Range Interpretation Comments CHOLESTEROL (test code = 2210) 179 MG/DL TRIGLYCERIDES (test code = 2232) 193 MG/DL HDL CHOLESTEROL (test code = 2220) 56 MG/DL CALC LDL CHOL (test code = 2237) 84 MG/DL RISK RATIO LDL/HDL (test code = 1.51 RATIO 2238) LIPID PANEL [ADDED]2017-07-31 00:00:00 Test Item Value Reference Range Interpretation Comments CHOLESTEROL (test code = 2210) 179 MG/DL TRIGLYCERIDES (test code = 2232) 193 MG/DL HDL CHOLESTEROL (test code = 2220) 56 MG/DL CALC LDL CHOL (test code = 2237) 84 MG/DL RISK RATIO LDL/HDL (test code = 1.51 RATIO 2238) DNA DS [id number] 00:00:00 Test Item Value Reference Range Interpretation Comments dsDNA ANTIBODY (test code = 4287) <1.0 IU/ML DNA DS [id number] 00:00:00 Test Item Value Reference Range Interpretation Comments dsDNA ANTIBODY (test code = 4287) <1.0 IU/ML HEMOGLOBIN [id number] 00:00:00 Test Item Value Reference Range Interpretation Comments HEMOGLOBIN A1c (test code = 88029) 7.5 % [employer] [id number] 00:00:00 Test Item Value Reference Range Interpretation Comments WEEMS (Sm) ANTIBODY (test code = <0.2 AI 68560) TILE BURNER ANTIBODY (test code = 30055) 6.4 AI HEMOGLOBIN [id number] 00:00:00 Test Item Value Reference Range Interpretation Comments HEMOGLOBIN A1c (test code = 74401) 7.5 % HEMOGLOBIN [id number] 00:00:00 Test Item Value Reference Range Interpretation Comments HEMOGLOBIN A1c (test code = 21289) 7.5 % WE[employer]UR[employer] [id number] 00:00:00 Test Item Value Reference Range Interpretation Comments WEEMS (Sm) ANTIBODY (test code = <0.2 AI 40202) TILE BURNER ANTIBODY (test code = 47273) 6.4 AI DNA DS ANTIBODY [id number] 00:00:00 Test Item Value Reference Range Interpretation Comments dsDNA ANTIBODY REFLEX (test code = NEGATIVE 63947) LIPID PANEL [ADDED]2017-07-31 00:00:00 Test Item Value Reference Range Interpretation Comments CHOLESTEROL (test code = 2210) 179 MG/DL TRIGLYCERIDES (test code = 2232) 193 MG/DL HDL CHOLESTEROL (test code = 2220) 56 MG/DL CALC LDL CHOL (test code = 2237) 84 MG/DL RISK RATIO LDL/HDL (test code = 1.51 RATIO 2238) LIPID PANEL [ADDED]2017-07-31 00:00:00 Test Item Value Reference Range Interpretation Comments CHOLESTEROL (test code = 2210) 179 MG/DL TRIGLYCERIDES (test code = 2232) 193 MG/DL HDL CHOLESTEROL (test code = 2220) 56 MG/DL CALC LDL CHOL (test code = 2237) 84 MG/DL RISK RATIO LDL/HDL (test code = 1.51 RATIO 2238) DNA DS ANTIBODY [id number] 00:00:00 Test Item Value Reference Range Interpretation Comments dsDNA ANTIBODY REFLEX (test code = NEGATIVE 22296) DNA DS [id number] 00:00:00 Test Item Value Reference Range Interpretation Comments dsDNA ANTIBODY (test code = 4287) <1.0 IU/ML DNA DS [id number] 00:00:00 Test Item Value Reference Range Interpretation Comments dsDNA ANTIBODY (test code = 4287) <1.0 IU/ML WEEMS AND TILE BURNER [id number] 00:00:00 Test Item Value Reference Range Interpretation Comments WEEMS (Sm) ANTIBODY (test code = <0.2 AI 34677) TILE BURNER ANTIBODY (test code = 58561) 6.4 AI HEMOGLOBIN [id number] 00:00:00 Test Item Value Reference Range Interpretation Comments HEMOGLOBIN A1c (test code = 42971) 7.5 % HEMOGLOBIN [id number] 00:00:00 Test Item Value Reference Range Interpretation Comments HEMOGLOBIN A1c (test code = 11932) 7.5 % DNA DS ANTIBODY [id number] 00:00:00 Test Item Value Reference Range Interpretation Comments dsDNA ANTIBODY REFLEX (test code = NEGATIVE 48027) LIPID PANEL [ADDED]2017-07-31 00:00:00 Test Item Value Reference Range Interpretation Comments CHOLESTEROL (test code = 2210) 179 MG/DL TRIGLYCERIDES (test code = 2232) 193 MG/DL HDL CHOLESTEROL (test code = 2220) 56 MG/DL CALC LDL CHOL (test code = 2237) 84 MG/DL RISK RATIO LDL/HDL (test code = 1.51 RATIO 2238) DNA DS [id number] 00:00:00 Test Item Value Reference Range Interpretation Comments dsDNA ANTIBODY (test code = 4287) <1.0 IU/ML WEEMS AND TILE BURNER [id number] 00:00:00 Test Item Value Reference Range Interpretation Comments WEEMS (Sm) ANTIBODY (test code = <0.2 AI 10314) TILE BURNER ANTIBODY (test code = 69518) 6.4 AI HEMOGLOBIN [id number] 00:00:00 Test Item Value Reference Range Interpretation Comments HEMOGLOBIN A1c (test code = 45937) 7.5 % HEMOGLOBIN [id number] 00:00:00 Test Item Value Reference Range Interpretation Comments HEMOGLOBIN A1c (test code = 03822) 7.5 % LIPID PANEL [ADDED]2017-07-31 00:00:00 Test Item Value Reference Range Interpretation Comments CHOLESTEROL (test code = 2210) 179 MG/DL TRIGLYCERIDES (test code = 2232) 193 MG/DL HDL CHOLESTEROL (test code = 2220) 56 MG/DL CALC LDL CHOL (test code = 2237) 84 MG/DL RISK RATIO LDL/HDL (test code = 1.51 RATIO 2238) DNA DS ANTIBODY [id number] 00:00:00 Test Item Value Reference Range Interpretation Comments dsDNA ANTIBODY REFLEX (test code = NEGATIVE 23729) DNA DS [id number] 00:00:00 Test Item Value Reference Range Interpretation Comments dsDNA ANTIBODY (test code = 4287) <1.0 IU/ML ARMEN TITER AND PATTERN [REFLEX]2017-07-18 00:00:00 Test Item Value Reference Range Interpretation Comments PATTERN (test code = 55951) SS-A ARMEN TITER (test code = 3550) 1:40 TITER METHOD (test code = 86299) (NOTE) ARMEN TITER AND PATTERN [REFLEX]2017-07-18 00:00:00 Test Item Value Reference Range Interpretation Comments PATTERN (test code = 86273) SS-A ARMEN TITER (test code = 3550) 1:40 TITER METHOD (test code = 22889) (NOTE) ARMEN TITER AND PATTERN [REFLEX]2017-07-18 00:00:00 Test Item Value Reference Range Interpretation Comments PATTERN (test code = 85595) SS-A ARMEN TITER (test code = 3550) 1:40 TITER METHOD (test code = 07896) (NOTE) ARMEN TITER AND PATTERN [REFLEX]2017-07-18 00:00:00 Test Item Value Reference Range Interpretation Comments PATTERN (test code = 47063) SS-A ARMEN TITER (test code = 3550) 1:40 TITER METHOD (test code = 75170) (NOTE) VITAMIN D, 25 [id number] 00:00:00 Test Item Value Reference Range Interpretation Comments VITAMIN D, 25 OH (test code = 4958) 24 NG/ML VITAMIN D, 25 [id number] 00:00:00 Test Item Value Reference Range Interpretation Comments VITAMIN D, 25 OH (test code = 4958) 24 NG/ML RHEUMATOID FACTOR, [id number] 00:00:00 Test Item Value Reference Range Interpretation Comments RHEUMATOID FACTOR, QUANT (test code 11 IU/ML = 3502) RHEUMATOID FACTOR, [id number] 00:00:00 Test Item Value Reference Range Interpretation Comments RHEUMATOID FACTOR, QUANT (test code 11 IU/ML = 3502) RHEUMATOID FACTOR, [id number] 00:00:00 Test Item Value Reference Range Interpretation Comments RHEUMATOID FACTOR, QUANT (test code 11 IU/ML = 3502) SEDIMENTATION [id number] 00:00:00 Test Item Value Reference Range Interpretation Comments SEDIMENTATION RATE (test code = 40 MM/HOUR 1017) SEDIMENTATION [id number] 00:00:00 Test Item Value Reference Range Interpretation Comments SEDIMENTATION RATE (test code = 40 MM/HOUR 1017) C-REACTIVE [id number] 00:00:00 Test Item Value Reference Range Interpretation Comments C-REACTIVE PROTEIN (test code = 0.2 MG/DL 3513) C-REACTIVE [id number] 00:00:00 Test Item Value Reference Range Interpretation Comments C-REACTIVE PROTEIN (test code = 0.2 MG/DL 3513) ARMEN (ANTI-NUCLEAR AB) WITH REFLEX [id number] 00:00:00 Test Item Value Reference Range Interpretation Comments ANTI-NUCLEAR ANTIBODIES (test code = POSITIVE 3506) ARMEN (ANTI-NUCLEAR AB) WITH REFLEX [id number] 00:00:00 Test Item Value Reference Range Interpretation Comments ANTI-NUCLEAR ANTIBODIES (test code = POSITIVE 3506) VITAMIN D, 25 [id number] 00:00:00 Test Item Value Reference Range Interpretation Comments VITAMIN D, 25 OH (test code = 4958) 24 NG/ML VITAMIN D, 25 [id number] 00:00:00 Test Item Value Reference Range Interpretation Comments VITAMIN D, 25 OH (test code = 4958) 24 NG/ML RHEUMATOID FACTOR, [id number] 00:00:00 Test Item Value Reference Range Interpretation Comments RHEUMATOID FACTOR, QUANT (test code 11 IU/ML = 3502) RHEUMATOID FACTOR, [id number] 00:00:00 Test Item Value Reference Range Interpretation Comments RHEUMATOID FACTOR, QUANT (test code 11 IU/ML = 3502) RHEUMATOID FACTOR, [id number] 00:00:00 Test Item Value Reference Range Interpretation Comments RHEUMATOID FACTOR, QUANT (test code 11 IU/ML = 3502) SEDIMENTATION [id number] 00:00:00 Test Item Value Reference Range Interpretation Comments SEDIMENTATION RATE (test code = 40 MM/HOUR 1017) SEDIMENTATION [id number] 00:00:00 Test Item Value Reference Range Interpretation Comments SEDIMENTATION RATE (test code = 40 MM/HOUR 1017) C-REACTIVE [id number] 00:00:00 Test Item Value Reference Range Interpretation Comments C-REACTIVE PROTEIN (test code = 0.2 MG/DL 3513) C-REACTIVE [id number] 00:00:00 Test Item Value Reference Range Interpretation Comments C-REACTIVE PROTEIN (test code = 0.2 MG/DL 3513) ARMEN (ANTI-NUCLEAR AB) WITH REFLEX [id number] 00:00:00 Test Item Value Reference Range Interpretation Comments ANTI-NUCLEAR ANTIBODIES (test code = POSITIVE 3506) ARMEN (ANTI-NUCLEAR AB) WITH REFLEX [id number] 00:00:00 Test Item Value Reference Range Interpretation Comments ANTI-NUCLEAR ANTIBODIES (test code = POSITIVE 3506) VITAMIN D, 25 [id number] 00:00:00 Test Item Value Reference Range Interpretation Comments VITAMIN D, 25 OH (test code = 4958) 24 NG/ML RHEUMATOID FACTOR, [id number] 00:00:00 Test Item Value Reference Range Interpretation Comments RHEUMATOID FACTOR, QUANT (test code 11 IU/ML = 3502) RHEUMATOID FACTOR, [id number] 00:00:00 Test Item Value Reference Range Interpretation Comments RHEUMATOID FACTOR, QUANT (test code 11 IU/ML = 3502) SEDIMENTATION [id number] 00:00:00 Test Item Value Reference Range Interpretation Comments SEDIMENTATION RATE (test code = 40 MM/HOUR 1017) C-REACTIVE [id number] 00:00:00 Test Item Value Reference Range Interpretation Comments C-REACTIVE PROTEIN (test code = 0.2 MG/DL 3513) ARMEN (ANTI-NUCLEAR AB) WITH REFLEX [id number] 00:00:00 Test Item Value Reference Range Interpretation Comments ANTI-NUCLEAR ANTIBODIES (test code = POSITIVE 3506) VITAMIN D, 25 [id number] 00:00:00 Test Item Value Reference Range Interpretation Comments VITAMIN D, 25 OH (test code = 4958) 24 NG/ML RHEUMATOID FACTOR, [id number] 00:00:00 Test Item Value Reference Range Interpretation Comments RHEUMATOID FACTOR, QUANT (test code 11 IU/ML = 3502) RHEUMATOID FACTOR, [id number] 00:00:00 Test Item Value Reference Range Interpretation Comments RHEUMATOID FACTOR, QUANT (test code 11 IU/ML = 3502) SEDIMENTATION [id number] 00:00:00 Test Item Value Reference Range Interpretation Comments SEDIMENTATION RATE (test code = 40 MM/HOUR 1017) C-REACTIVE [id number] 00:00:00 Test Item Value Reference Range Interpretation Comments C-REACTIVE PROTEIN (test code = 0.2 MG/DL 3513) ARMEN (ANTI-NUCLEAR AB) WITH REFLEX [id number] 00:00:00 Test Item Value Reference Range Interpretation Comments ANTI-NUCLEAR ANTIBODIES (test code = POSITIVE 3506) HEMOGLOBIN A1c [ADDED]2017-05-01 00:00:00 Test Item Value Reference Range Interpretation Comments HEMOGLOBIN A1c (test code = 08583) 8.1 % HEMOGLOBIN A1c [ADDED]2017-05-01 00:00:00 Test Item Value Reference Range Interpretation Comments HEMOGLOBIN A1c (test code = 29871) 8.1 % HEMOGLOBIN A1c [ADDED]2017-05-01 00:00:00 Test Item Value Reference Range Interpretation Comments HEMOGLOBIN A1c (test code = 64029) 8.1 % CBC W/AUTO DIFF WITH PLATELETS [...] eGFR AMER. (test code 62 ML/MIN/1.73 = 18211) eGFR NON- AMER. (test 53 ML/MIN/1.73 code = 51068) CALC BUN/CREAT (test code = 31 RATIO [...] BILIRUBIN, TOTAL (test code = 0.5 MG/DL 220) ALKALINE PHOSPHATASE (test 90 U/L code = 2204) AST (test code = 2218) 20 U/L ALT (test code = 2219) 22 U/L COMPREHENSIVE METABOLIC PANEL [ADDED]2017-05-01 00:00:00 Test Item Value Reference Range Interpretation Comments GLUCOSE (test code = 2217) 287 MG/DL BUN (test code = 2208) 33 MG/DL CREATININE (test code = 2214) 1.07 MG/DL eGFR AMER. (test code 62 ML/MIN/1.73 = 58947) eGFR NON- AMER. (test 53 ML/MIN/1.73 code = 47499) CALC BUN/CREAT (test code = 31 RATIO [...] LDL/HDL (test code = 1.73 RATIO 2238) LIPID PANEL [ADDED]2017-05-01 00:00:00 Test Item Value [...] MICROALBUMIN, RANDOM (test code = 60.7 MG/DL 59835) CALC MICROALB/CREAT RND (test code 1096 MG/G = 81644) MICROALBUMIN/CREATININE, RANDOM AND RATIO [ADDED]2017-05-01 00:00:00 Test Item Value Reference Range Interpretation Comments CREATININE, URINE, CONC. (test 55.4 MG/DL code = 2072) MICROALBUMIN, RANDOM (test code = 60.7 MG/DL 05062) CALC MICROALB/CREAT RND (test code 1096 MG/G = 61095) HEMOGLOBIN A1c [ADDED]2017-05-01 00:00:00 Test Item Value Reference Range Interpretation Comments HEMOGLOBIN A1c (test code = 62429) 8.1 % HEMOGLOBIN A1c [ADDED]2017-05-01 00:00:00 Test Item Value Reference Range Interpretation Comments HEMOGLOBIN A1c (test code = 17867) 8.1 % HEMOGLOBIN A1c [ADDED]2017-05-01 00:00:00 Test Item Value Reference Range Interpretation Comments HEMOGLOBIN A1c (test code = 03875) 8.1 % CBC W/AUTO DIFF WITH PLATELETS [...] eGFR AMER. (test code 62 ML/MIN/1.73 = 16621) eGFR NON- AMER. (test 53 ML/MIN/1.73 code = 68196) CALC BUN/CREAT (test code = 31 RATIO [...] 0) CALC A/G RATIO (test code = 1.2 RATIO 2234) BILIRUBIN, TOTAL (test code = 0.5 MG/DL 2206) ALKALINE PHOSPHATASE (test 90 U/L code = 2204) AST (test code = 2218) 20 U/L ALT (test code = 2219) 22 U/L COMPREHENSIVE METABOLIC PANEL [ADDED]2017-05-01 00:00:00 Test Item Value Reference Range Interpretation Comments GLUCOSE (test code = 2217) 287 MG/DL BUN (test code = 2208) 33 MG/DL CREATININE (test code = 2214) 1.07 MG/DL eGFR AMER. (test code 62 ML/MIN/1.73 = 72168) eGFR NON- AMER. (test 53 ML/MIN/1.73 code = 71415) CALC BUN/CREAT (test code = 31 RATIO 2235) SODIUM (test code = 2231) 142 MEQ/L POTASSIUM (test code = 2228) 4.9 MEQ/L CHLORIDE (test code = 2215) 102 MEQ/L CARBON DIOXIDE (test code = 25 MEQ/L 2206) CALCIUM (test code = 2209) 9.3 MG/DL PROTEIN, TOTAL (test code = 7.4 G/DL 222) ALBUMIN (test code = 2201) 4.1 G/DL CALC GLOBULIN (test code = 3.3 G/DL 2240) CALC A/G RATIO (test code = 1.2 RATIO 2234) BILIRUBIN, TOTAL (test code = 0.5 MG/DL 220) ALKALINE PHOSPHATASE (test 90 U/L code = [...] LDL/HDL (test code = 1.73 RATIO 2238) LIPID PANEL [ADDED]2017-05-01 00:00:00 Test Item Value [...] MICROALBUMIN, RANDOM (test code = 60.7 MG/DL 39665) CALC MICROALB/CREAT RND (test code 1096 MG/G = 08073) MICROALBUMIN/CREATININE, RANDOM AND RATIO [ADDED]2017-05-01 00:00:00 Test Item Value Reference Range Interpretation Comments CREATININE, URINE, CONC. (test 55.4 MG/DL code = 2072) MICROALBUMIN, RANDOM (test code = 60.7 MG/DL 43070) CALC MICROALB/CREAT RND (test code 1096 MG/G = 47462) HEMOGLOBIN A1c [ADDED]2017-05-01 00:00:00 Test Item Value Reference Range Interpretation Comments HEMOGLOBIN A1c (test code = 09278) 8.1 % HEMOGLOBIN A1c [ADDED]2017-05-01 00:00:00 Test Item Value Reference Range Interpretation Comments HEMOGLOBIN A1c (test code = 01767) 8.1 % CBC W/AUTO DIFF WITH PLATELETS [...] eGFR AMER. (test code 62 ML/MIN/1.73 = 19433) eGFR NON- AMER. (test 53 ML/MIN/1.73 code = 73387) CALC BUN/CREAT (test code = 31 RATIO 2235) SODIUM (test code = 2231) 142 MEQ/L POTASSIUM (test code = 2228) 4.9 MEQ/L CHLORIDE (test code = 2215) 102 MEQ/L CARBON DIOXIDE (test code = 25 MEQ/L 2206) CALCIUM (test code = 2209) 9.3 MG/DL PROTEIN, TOTAL (test code = 7.4 G/DL 222) ALBUMIN (test code = 2201) 4.1 G/DL CALC GLOBULIN (test code = 3.3 G/DL 2240) CALC A/G RATIO (test code = 1.2 RATIO 2234) BILIRUBIN, TOTAL (test code = 0.5 MG/DL 220) ALKALINE PHOSPHATASE (test 90 U/L code = [...] MICROALBUMIN, RANDOM (test code = 60.7 MG/DL 03208) CALC MICROALB/CREAT RND (test code 1096 MG/G = 93742) HEMOGLOBIN A1c [ADDED]2017-05-01 00:00:00 Test Item Value Reference Range Interpretation Comments HEMOGLOBIN A1c (test code = 60451) 8.1 % HEMOGLOBIN A1c [ADDED]2017-05-01 00:00:00 Test Item Value Reference Range Interpretation Comments HEMOGLOBIN A1c (test code = 25662) 8.1 % CBC W/AUTO DIFF WITH PLATELETS [...] eGFR AMER. (test code 62 ML/MIN/1.73 = 94738) eGFR NON- AMER. (test 53 ML/MIN/1.73 code = 26410) CALC BUN/CREAT (test code = 31 RATIO [...] BILIRUBIN, TOTAL (test code = 0.5 MG/DL 220) ALKALINE PHOSPHATASE (test 90 U/L code = [...] MICROALBUMIN, RANDOM (test code = 60.7 MG/DL 81722) CALC MICROALB/CREAT RND (test code 1096 MG/G = 94488) URIC [id number] 00:00:00 Test Item Value Reference Range Interpretation Comments URIC ACID (test code = 2233) 4.7 MG/DL VITAMIN D, 25 [id number] 00:00:00 Test Item Value Reference Range Interpretation Comments VITAMIN D, 25 OH (test code = 4958) 16 NG/ML [id number] 00:00:00 Test Item Value Reference Range Interpretation Comments TSH (test code = 2821) 4.260 UIU/ML [id number] 00:00:00 Test Item Value Reference Range Interpretation Comments TSH (test code = 2821) 4.260 UIU/ML [id number] 00:00:00 Test Item Value Reference Range Interpretation Comments TSH (test code = 2821) 4.260 UIU/ML LIPID [id number] 00:00:00 Test Item Value Reference Range Interpretation Comments CHOLESTEROL (test code = 2210) 152 MG/DL TRIGLYCERIDES (test code = 2232) 149 MG/DL HDL CHOLESTEROL (test code = 2220) 56 MG/DL CALC LDL CHOL (test code = 2237) 66 MG/DL RISK RATIO LDL/HDL (test code = 1.18 RATIO 2238) LIPID [id number] 00:00:00 Test Item Value Reference Range Interpretation Comments CHOLESTEROL (test code = 2210) 152 MG/DL TRIGLYCERIDES (test code = 2232) 149 MG/DL HDL CHOLESTEROL (test code = 2220) 56 MG/DL CALC LDL CHOL (test code = 2237) 66 MG/DL RISK RATIO LDL/HDL (test code = 1.18 RATIO 2238) COMPREHENSIVE METABOLIC [id number] 00:00:00 Test Item Value Reference Range Interpretation Comments GLUCOSE (test code = 2217) 173 MG/DL BUN (test code = 2208) 22 MG/DL CREATININE (test code = 2214) 1.01 MG/DL eGFR AMER. (test code 66 ML/MIN/1.73 = 52211) eGFR NON- AMER. (test 57 ML/MIN/1.73 code = 14328) CALC BUN/CREAT (test code = 22 RATIO [...] ALT (test code = 2219) 13 U/L COMPREHENSIVE METABOLIC [id number] 00:00:00 Test Item Value Reference Range Interpretation Comments GLUCOSE (test code = 2217) 173 MG/DL BUN (test code = 2208) 22 MG/DL CREATININE (test code = 2214) 1.01 MG/DL eGFR AMER. (test code 66 ML/MIN/1.73 = 07170) eGFR NON- AMER. (test 57 ML/MIN/1.73 code = 79680) CALC BUN/CREAT (test code = 22 RATIO [...] code = 2219) 13 U/L CBC W/AUTO [id number] 00:00:00 Test Item Value Reference Range Interpretation [...] code = 1015) 266 K/UL CBC W/AUTO [id number] 00:00:00 Test Item Value Reference Range Interpretation [...] code = 1015) 266 K/UL CBC W/AUTO [id number] 00:00:00 Test Item Value Reference Range Interpretation [...] (test code = 1015) 266 K/UL HEMOGLOBIN [id number] 00:00:00 Test Item Value Reference Range Interpretation Comments HEMOGLOBIN A1c (test code = 99045) 9.4 % HEMOGLOBIN [id number] 00:00:00 Test Item Value Reference Range Interpretation Comments HEMOGLOBIN A1c (test code = 97062) 9.4 % HEMOGLOBIN [id number] 00:00:00 Test Item Value Reference Range Interpretation Comments HEMOGLOBIN A1c (test code = 51799) 9.4 % URIC [id number] 00:00:00 Test Item Value Reference Range Interpretation Comments URIC ACID (test code = 2233) 4.7 MG/DL URIC [id number] 00:00:00 Test Item Value Reference Range Interpretation Comments URIC ACID (test code = 2233) 4.7 MG/DL VITAMIN D, 25 [id number] 00:00:00 Test Item Value Reference Range Interpretation Comments VITAMIN D, 25 OH (test code = 4958) 16 NG/ML VITAMIN D, 25 [id number] 00:00:00 Test Item Value Reference Range Interpretation Comments VITAMIN D, 25 OH (test code = 4958) 16 NG/ML [id number] 00:00:00 Test Item Value Reference Range Interpretation Comments TSH (test code = 2821) 4.260 UIU/ML [id number] 00:00:00 Test Item Value Reference Range Interpretation Comments TSH (test code = 2821) 4.260 UIU/ML [id number] 00:00:00 Test Item Value Reference Range Interpretation Comments TSH (test code = 2821) 4.260 UIU/ML LIPID [id number] 00:00:00 Test Item Value Reference Range Interpretation Comments CHOLESTEROL (test code = 2210) 152 MG/DL TRIGLYCERIDES (test code = 2232) 149 MG/DL HDL CHOLESTEROL (test code = 2220) 56 MG/DL CALC LDL CHOL (test code = 2237) 66 MG/DL RISK RATIO LDL/HDL (test code = 1.18 RATIO 2238) LIPID [id number] 00:00:00 Test Item Value Reference Range Interpretation Comments CHOLESTEROL (test code = 2210) 152 MG/DL TRIGLYCERIDES (test code = 2232) 149 MG/DL HDL CHOLESTEROL (test code = 2220) 56 MG/DL CALC LDL CHOL (test code = 2237) 66 MG/DL RISK RATIO LDL/HDL (test code = 1.18 RATIO 2238) COMPREHENSIVE METABOLIC [id number] 00:00:00 Test Item Value Reference Range Interpretation Comments GLUCOSE (test code = 2217) 173 MG/DL BUN (test code = 2208) 22 MG/DL CREATININE (test code = 2214) 1.01 MG/DL eGFR AMER. (test code 66 ML/MIN/1.73 = 48243) eGFR NON- AMER. (test 57 ML/MIN/1.73 code = 93057) CALC BUN/CREAT (test code = 22 RATIO [...] ALT (test code = 2219) 13 U/L COMPREHENSIVE METABOLIC [id number] 00:00:00 Test Item Value Reference Range Interpretation Comments GLUCOSE (test code = 2217) 173 MG/DL BUN (test code = 2208) 22 MG/DL CREATININE (test code = 2214) 1.01 MG/DL eGFR AMER. (test code 66 ML/MIN/1.73 = 04388) eGFR NON- AMER. (test 57 ML/MIN/1.73 code = 21308) CALC BUN/CREAT (test code = 22 RATIO 5) SODIUM (test code = 2231) 140 MEQ/L [...] code = 2219) 13 U/L CBC W/AUTO [id number] 00:00:00 Test Item Value Reference Range Interpretation [...] code = 1015) 266 K/UL CBC W/AUTO [id number] 00:00:00 Test Item Value Reference Range Interpretation [...] code = 1015) 266 K/UL CBC W/AUTO [id number] 00:00:00 Test Item Value Reference Range Interpretation [...] (test code = 1015) 266 K/UL HEMOGLOBIN [id number] 00:00:00 Test Item Value Reference Range Interpretation Comments HEMOGLOBIN A1c (test code = 75786) 9.4 % HEMOGLOBIN [id number] 00:00:00 Test Item Value Reference Range Interpretation Comments HEMOGLOBIN A1c (test code = 69099) 9.4 % HEMOGLOBIN [id number] 00:00:00 Test Item Value Reference Range Interpretation Comments HEMOGLOBIN A1c (test code = 04527) 9.4 % URIC [id number] 00:00:00 Test Item Value Reference Range Interpretation Comments URIC ACID (test code = 2233) 4.7 MG/DL URIC [id number] 00:00:00 Test Item Value Reference Range Interpretation Comments URIC ACID (test code = 2233) 4.7 MG/DL VITAMIN D, 25 [id number] 00:00:00 Test Item Value Reference Range Interpretation Comments VITAMIN D, 25 OH (test code = 4958) 16 NG/ML VITAMIN D, 25 [id number] 00:00:00 Test Item Value Reference Range Interpretation Comments VITAMIN D, 25 OH (test code = 4958) 16 NG/ML [id number] 00:00:00 Test Item Value Reference Range Interpretation Comments TSH (test code = 2821) 4.260 UIU/ML [id number] 00:00:00 Test Item Value Reference Range Interpretation Comments TSH (test code = 2821) 4.260 UIU/ML LIPID [id number] 00:00:00 Test Item Value Reference Range Interpretation Comments CHOLESTEROL (test code = 2210) 152 MG/DL TRIGLYCERIDES (test code = 2232) 149 MG/DL HDL CHOLESTEROL (test code = 2220) 56 MG/DL CALC LDL CHOL (test code = 2237) 66 MG/DL RISK RATIO LDL/HDL (test code = 1.18 RATIO 2238) COMPREHENSIVE METABOLIC [id number] 00:00:00 Test Item Value Reference Range Interpretation Comments GLUCOSE (test code = 2217) 173 MG/DL BUN (test code = 2208) 22 MG/DL CREATININE (test code = 2214) 1.01 MG/DL eGFR AMER. (test code 66 ML/MIN/1.73 = 25727) eGFR NON- AMER. (test 57 ML/MIN/1.73 code = 94890) CALC BUN/CREAT (test code = 22 RATIO [...] code = 2219) 13 U/L CBC W/AUTO [id number] 00:00:00 Test Item Value Reference Range Interpretation [...] code = 1015) 266 K/UL CBC W/AUTO [id number] 00:00:00 Test Item Value Reference Range Interpretation [...] (test code = 1015) 266 K/UL HEMOGLOBIN [id number] 00:00:00 Test Item Value Reference Range Interpretation Comments HEMOGLOBIN A1c (test code = 94816) 9.4 % HEMOGLOBIN [id number] 00:00:00 Test Item Value Reference Range Interpretation Comments HEMOGLOBIN A1c (test code = 72546) 9.4 % URIC [id number] 00:00:00 Test Item Value Reference Range Interpretation Comments URIC ACID (test code = 2233) 4.7 MG/DL VITAMIN D, 25 [id number] 00:00:00 Test Item Value Reference Range Interpretation Comments VITAMIN D, 25 OH (test code = 4958) 16 NG/ML [id number] 00:00:00 Test Item Value Reference Range Interpretation Comments TSH (test code = 2821) 4.260 UIU/ML [id number] 00:00:00 Test Item Value Reference Range Interpretation Comments TSH (test code = 2821) 4.260 UIU/ML LIPID [id number] 00:00:00 Test Item Value Reference Range Interpretation Comments CHOLESTEROL (test code = 2210) 152 MG/DL TRIGLYCERIDES (test code = 2232) 149 MG/DL HDL CHOLESTEROL (test code = 2220) 56 MG/DL CALC LDL CHOL (test code = 2237) 66 MG/DL RISK RATIO LDL/HDL (test code = 1.18 RATIO 2238) COMPREHENSIVE METABOLIC [id number] 00:00:00 Test Item Value Reference Range Interpretation Comments GLUCOSE (test code = 2217) 173 MG/DL BUN (test code = 2208) 22 MG/DL CREATININE (test code = 2214) 1.01 MG/DL eGFR AMER. (test code 66 ML/MIN/1.73 = 75317) eGFR NON- AMER. (test 57 ML/MIN/1.73 code = 36786) CALC BUN/CREAT (test code = 22 RATIO [...] code = 2219) 13 U/L CBC W/AUTO [id number] 00:00:00 Test Item Value Reference Range Interpretation [...] code = 1015) 266 K/UL CBC W/AUTO [id number] 00:00:00 Test Item Value Reference Range Interpretation [...] (test code = 1015) 266 K/UL HEMOGLOBIN [id number] 00:00:00 Test Item Value Reference Range Interpretation Comments HEMOGLOBIN A1c (test code = 76981) 9.4 % HEMOGLOBIN [id number] 00:00:00 Test Item Value Reference Range Interpretation Comments HEMOGLOBIN A1c (test code = 18485) 9.4 % COMPREHENSIVE METABOLIC [id number] 00:00:00 Test Item Value Reference Range Interpretation Comments GLUCOSE (test code = 2217) 74 MG/DL BUN (test code = 2208) 34 MG/DL CREATININE (test code = 2214) 1.11 MG/DL eGFR AMER. (test code 60 ML/MIN/1.73 = 96667) eGFR NON- AMER. (test 51 ML/MIN/1.73 code = 22268) CALC BUN/CREAT (test code = 31 RATIO [...] CALC GLOBULIN (test code = 3.5 G/DL 2240) CALC A/G RATIO (test code = 1.2 RATIO 223) BILIRUBIN, TOTAL (test code = 0.3 MG/DL 2206) ALKALINE PHOSPHATASE (test 98 U/L code = 2204) AST (test code = 2218) 18 U/L ALT (test code = 2219) 13 U/L COMPREHENSIVE METABOLIC [id number] 00:00:00 Test Item Value Reference Range Interpretation Comments GLUCOSE (test code = 2217) 74 MG/DL BUN (test code = 2208) 34 MG/DL CREATININE (test code = 2214) 1.11 MG/DL eGFR AMER. (test code 60 ML/MIN/1.73 = 27449) eGFR NON- AMER. (test 51 ML/MIN/1.73 code = 76822) CALC BUN/CREAT (test code = 31 RATIO [...] CALC GLOBULIN (test code = 3.5 G/DL 2240) CALC A/G RATIO (test code = 1.2 RATIO 2234) BILIRUBIN, TOTAL (test code = 0.3 MG/DL 2206) ALKALINE PHOSPHATASE (test 98 U/L code = 2204) AST (test code = 2218) 18 U/L ALT (test code = 2219) 13 U/L LIPID [id number] 00:00:00 Test Item Value Reference Range Interpretation Comments CHOLESTEROL (test code = 2210) 220 MG/DL TRIGLYCERIDES (test code = 2232) 136 MG/DL HDL CHOLESTEROL (test code = 2220) 57 MG/DL CALC LDL CHOL (test code = 2237) 136 MG/DL RISK RATIO LDL/HDL (test code = 2.38 RATIO 2238) LIPID [id number] 00:00:00 Test Item Value Reference Range Interpretation Comments CHOLESTEROL (test code = 2210) 220 MG/DL TRIGLYCERIDES (test code = 2232) 136 MG/DL HDL CHOLESTEROL (test code = 2220) 57 MG/DL CALC LDL CHOL (test code = 2237) 136 MG/DL RISK RATIO LDL/HDL (test code = 2.38 RATIO 2238) CBC W/AUTO [id number] 00:00:00 Test Item Value Reference Range Interpretation [...] code = 1015) 294 K/UL CBC W/AUTO [id number] 00:00:00 Test Item Value Reference Range Interpretation [...] code = 1015) 294 K/UL CBC W/AUTO [id number] 00:00:00 Test Item Value Reference Range Interpretation [...] (test code = 1015) 294 K/UL HEMOGLOBIN [id number] 00:00:00 Test Item Value Reference Range Interpretation Comments HEMOGLOBIN A1c (test code = 91542) 6.5 % HEMOGLOBIN [id number] 00:00:00 Test Item Value Reference Range Interpretation Comments HEMOGLOBIN A1c (test code = 30885) 6.5 % HEMOGLOBIN [id number] 00:00:00 Test Item Value Reference Range Interpretation Comments HEMOGLOBIN A1c (test code = 73323) 6.5 % THYROID II PROFILE (T3U, T4, T7, TSH)2016-05-17 00:00:00 Test Item Value Reference Range Interpretation Comments T3 UPTAKE (test code = 2817) 30.8 % T4 (THYROXINE) (test code = 2819) 5.3 UG/DL CALCULATED T7 (FTI) (test code = 1.63 8130) TSH (test code = 2821) 3.1 UIU/ML THYROID II PROFILE (T3U, T4, T7, TSH)2016-05-17 00:00:00 Test Item Value Reference Range Interpretation Comments T3 UPTAKE (test code = 2817) 30.8 % T4 (THYROXINE) (test code = 2819) 5.3 UG/DL CALCULATED T7 (FTI) (test code = 1.63 7060) TSH (test code = 2821) 3.1 UIU/ML COMPREHENSIVE METABOLIC [id number] 00:00:00 Test Item Value Reference Range Interpretation Comments GLUCOSE (test code = 2217) 74 MG/DL BUN (test code = 2208) 34 MG/DL CREATININE (test code = 2214) 1.11 MG/DL eGFR AMER. (test code 60 ML/MIN/1.73 = 70238) eGFR NON- AMER. (test 51 ML/MIN/1.73 code = 92241) CALC BUN/CREAT (test code = 31 RATIO [...] CALC GLOBULIN (test code = 3.5 G/DL 2240) CALC A/G RATIO (test code = 1.2 RATIO 2234) BILIRUBIN, TOTAL (test code = 0.3 MG/DL 2206) ALKALINE PHOSPHATASE (test 98 U/L code = 2204) AST (test code = 2218) 18 U/L ALT (test code = 2219) 13 U/L COMPREHENSIVE METABOLIC [id number] 00:00:00 Test Item Value Reference Range Interpretation Comments GLUCOSE (test code = 2217) 74 MG/DL BUN (test code = 2208) 34 MG/DL CREATININE (test code = 2214) 1.11 MG/DL eGFR AMER. (test code 60 ML/MIN/1.73 = 94453) eGFR NON- AMER. (test 51 ML/MIN/1.73 code = 31187) CALC BUN/CREAT (test code = 31 RATIO [...] CALC GLOBULIN (test code = 3.5 G/DL 224) CALC A/G RATIO (test code = 1.2 RATIO 223) BILIRUBIN, TOTAL (test code = 0.3 MG/DL 2206) ALKALINE PHOSPHATASE (test 98 U/L code = 2204) AST (test code = 2218) 18 U/L ALT (test code = 2219) 13 U/L LIPID [id number] 00:00:00 Test Item Value Reference Range Interpretation Comments CHOLESTEROL (test code = 2210) 220 MG/DL TRIGLYCERIDES (test code = 2232) 136 MG/DL HDL CHOLESTEROL (test code = 2220) 57 MG/DL CALC LDL CHOL (test code = 2237) 136 MG/DL RISK RATIO LDL/HDL (test code = 2.38 RATIO 2238) LIPID [id number] 00:00:00 Test Item Value Reference Range Interpretation Comments CHOLESTEROL (test code = 2210) 220 MG/DL TRIGLYCERIDES (test code = 2232) 136 MG/DL HDL CHOLESTEROL (test code = 2220) 57 MG/DL CALC LDL CHOL (test code = 2237) 136 MG/DL RISK RATIO LDL/HDL (test code = 2.38 RATIO 2238) CBC W/AUTO [id number] 00:00:00 Test Item Value Reference Range Interpretation [...] code = 1015) 294 K/UL CBC W/AUTO [id number] 00:00:00 Test Item Value Reference Range Interpretation [...] code = 1015) 294 K/UL CBC W/AUTO [id number] 00:00:00 Test Item Value Reference Range Interpretation [...] (test code = 1015) 294 K/UL HEMOGLOBIN [id number] 00:00:00 Test Item Value Reference Range Interpretation Comments HEMOGLOBIN A1c (test code = 13800) 6.5 % HEMOGLOBIN [id number] 00:00:00 Test Item Value Reference Range Interpretation Comments HEMOGLOBIN A1c (test code = 65315) 6.5 % HEMOGLOBIN [id number] 00:00:00 Test Item Value Reference Range Interpretation Comments HEMOGLOBIN A1c (test code = 35445) 6.5 % THYROID II PROFILE (T3U, T4, T7, TSH)2016-05-17 00:00:00 Test Item Value Reference Range Interpretation Comments T3 UPTAKE (test code = 2817) 30.8 % T4 (THYROXINE) (test code = 2819) 5.3 UG/DL CALCULATED T7 (FTI) (test code = 1.63 2820) TSH (test code = 2821) 3.1 UIU/ML THYROID II PROFILE (T3U, T4, T7, TSH)2016-05-17 00:00:00 Test Item Value Reference Range Interpretation Comments T3 UPTAKE (test code = 2817) 30.8 % T4 (THYROXINE) (test code = 2819) 5.3 UG/DL CALCULATED T7 (FTI) (test code = 1.63 2820) TSH (test code = 2821) 3.1 UIU/ML COMPREHENSIVE METABOLIC [id number] 00:00:00 Test Item Value Reference Range Interpretation Comments GLUCOSE (test code = 2217) 74 MG/DL BUN (test code = 2208) 34 MG/DL CREATININE (test code = 2214) 1.11 MG/DL eGFR AMER. (test code 60 ML/MIN/1.73 = 16574) eGFR NON- AMER. (test 51 ML/MIN/1.73 code = 18310) CALC BUN/CREAT (test code = 31 RATIO [...] (test code = 2219) 13 U/L LIPID [id number] 00:00:00 Test Item Value Reference Range Interpretation Comments CHOLESTEROL (test code = 2210) 220 MG/DL TRIGLYCERIDES (test code = 2232) 136 MG/DL HDL CHOLESTEROL (test code = 2220) 57 MG/DL CALC LDL CHOL (test code = 2237) 136 MG/DL RISK RATIO LDL/HDL (test code = 2.38 RATIO 2238) CBC W/AUTO [id number] 00:00:00 Test Item Value Reference Range Interpretation [...] code = 1015) 294 K/UL CBC W/AUTO [id number] 00:00:00 Test Item Value Reference Range Interpretation [...] (test code = 1015) 294 K/UL HEMOGLOBIN [id number] 00:00:00 Test Item Value Reference Range Interpretation Comments HEMOGLOBIN A1c (test code = 08361) 6.5 % HEMOGLOBIN [id number] 00:00:00 Test Item Value Reference Range Interpretation Comments HEMOGLOBIN A1c (test code = 66686) 6.5 % THYROID II PROFILE (T3U, T4, T7, TSH)2016-05-17 00:00:00 Test Item Value Reference Range Interpretation Comments T3 UPTAKE (test code = 2817) 30.8 % T4 (THYROXINE) (test code = 2819) 5.3 UG/DL CALCULATED T7 (FTI) (test code = 1.63 2820) TSH (test code = 2821) 3.1 UIU/ML COMPREHENSIVE METABOLIC [id number] 00:00:00 Test Item Value Reference Range Interpretation Comments GLUCOSE (test code = 2217) 74 MG/DL BUN (test code = 2208) 34 MG/DL CREATININE (test code = 2214) 1.11 MG/DL eGFR AMER. (test code 60 ML/MIN/1.73 = 35665) eGFR NON- AMER. (test 51 ML/MIN/1.73 code = 82829) CALC BUN/CREAT (test code = 31 RATIO [...] CALC GLOBULIN (test code = 3.5 G/DL 2240) CALC A/G RATIO (test code = 1.2 RATIO 2234) BILIRUBIN, TOTAL (test code = 0.3 MG/DL 2206) ALKALINE PHOSPHATASE (test 98 U/L code = 2204) AST (test code = 2218) 18 U/L ALT (test code = 2219) 13 U/L LIPID [id number] 00:00:00 Test Item Value Reference Range Interpretation Comments CHOLESTEROL (test code = 2210) 220 MG/DL TRIGLYCERIDES (test code = 2232) 136 MG/DL HDL CHOLESTEROL (test code = 2220) 57 MG/DL CALC LDL CHOL (test code = 2237) 136 MG/DL RISK RATIO LDL/HDL (test code = 2.38 RATIO 2238) CBC W/AUTO [id number] 00:00:00 Test Item Value Reference Range Interpretation [...] code = 1015) 294 K/UL CBC W/AUTO [id number] 00:00:00 Test Item Value Reference Range Interpretation [...] (test code = 1015) 294 K/UL HEMOGLOBIN [id number] 00:00:00 Test Item Value Reference Range Interpretation Comments HEMOGLOBIN A1c (test code = 21769) 6.5 % HEMOGLOBIN [id number] 00:00:00 Test Item Value Reference Range Interpretation Comments HEMOGLOBIN A1c (test code = 05571) 6.5 % THYROID II PROFILE (T3U, T4, T7, TSH)2016-05-17 00:00:00 Test Item Value Reference Range Interpretation Comments T3 UPTAKE (test code = 2817) 30.8 % T4 (THYROXINE) (test code = 2819) 5.3 UG/DL CALCULATED T7 (FTI) (test code = 1.63 2820) TSH (test code = 2821) 3.1 UIU/ML
--- NOTE | 2022-04-20 12:53 | RAD REPORT ---
EXAM DESCRIPTION: CT - [id number] - 04/20/2022 12:33 pm CLINICAL HISTORY: Trauma, head and neck injury. head injury COMPARISON: No comparisons TECHNIQUE: Axial 5 mm thick images of the head were obtained. Axial 2 mm thick images of the cervical spine were obtained with sagittal and coronal reconstruction images generated and reviewed. All CT scans are performed using dose optimization technique as appropriate and may include automated exposure control or mA/KV adjustment according to patient size. FINDINGS: CT HEAD WITHOUT CONTRAST: No acute hemorrhage, hydrocephalus or extra-axial collection is identified.No areas of brain edema or midline shift. Mild chronic small vessel ischemic changes. The paranasal sinuses and mastoids are clear.The calvarium is intact. CT CERVICAL SPINE WITHOUT CONTRAST: No fracture or subluxation.No prevertebral soft tissues swelling is identified. IMPRESSION: No acute intracranial or cervical spine findings.
--- NOTE | 2022-04-20 12:55 | RAD REPORT ---
EXAM DESCRIPTION: RAD - Ribs Left - 04/20/2022 12:47 pm CLINICAL HISTORY: left ribs COMPARISON: Chest Single View dated 09/04/2021 FINDINGS/IMPRESSION: No displaced left-sided rib fractures are appreciated. No pneumothorax. Nondisp laced or minimally displaced rib fractures may not be apparent on radiography until healing begins.
--- NOTE | 2022-04-20 12:55 | RAD REPORT ---
EXAM DESCRIPTION: RAD - Humerus Left - 04/20/2022 12:48 pm CLINICAL HISTORY: PAIN COMPARISON: No comparisons FINDINGS/IMPRESSION: No acute fracture. No malalignment. No significant focal degenerative changes.
--- NOTE | 2022-04-20 13:18 | ER ---
Nurse's Notes [facility] Name: Kniga Singleton Age: 71 yrs Sex: Female : 1950 Arrival Date: 04/20/2022 Time: 11:38 Bed 13 Private MD: Diagnosis: Unspecified injury of head, initial encounter;Chest pain, unspecified-chest wall pain;Fall on same level from slipping, tripping and stumbling without subsequent striking against object Presentation: 04/20 11:43 Chief complaint: Patient states: fell and hit head on Sunday, woke up this morning with kr3 dizziness. Has pain when sneezing or coughing in left arm, rib and chest area. No LOC or bleeding. Coronavirus screen: Vaccine status: Patient reports receiving the 2nd dose of the covid vaccine. Client denies travel out of the [place] in the last 14 days. Ebola Screen: Patient denies travel to an Ebola-affected area in the 21 days before illness onset. Initial Sepsis Screen: Does the patient meet any 2 criteria? No. Patient's initial sepsis screen is negative. Does the patient have a suspected source of infection? No. Patient's initial sepsis screen is negative. Risk Assessment: Do you want to hurt yourself or someone else? Patient reports no desire to harm self or others. Onset of symptoms was April 17, 2022. 11:43 Method Of Arrival: Wheelchair kr3 11:43 Acuity: JITENDRA 4 kr3 Triage Assessment: 11:51 General: Appears in no apparent distress. uncomfortable, Behavior is calm, cooperative, kr3 appropriate for age. Pain: Complains of pain in left chest, arm and rib area Pain currently is 5 out of 10 on a pain scale. Is intermittent, Aggravated by increased activity, coughing. Historical: - Allergies: 11:49 No Known Allergies; kr3 - PMHx: 11:49 Diabetes - IDDM; Hypercholesterolemia; Hypertensive disorder; kr3 - PSHx: 11:49 Total abdominal hysterectomy; kr3 - Immunization history:: Adult Immunizations not up to date. - Social history:: Smoking status: Patient denies any tobacco usage or history of. Screenin:03 Abuse screen: Denies threats or abuse. Nutritional screening: No deficits noted. ll1 Tuberculosis screening: No symptoms or risk factors identified. Fall Risk Fall in past 12 months (25 points). Gait- Weak (10 pts.). Total Jernigan Fall Scale indicates Low Risk Score (25-44 pts). Fall prevention measures have been instituted. Side Rails Up X 2 Placed close to Nursing Station Frequent Obs/Assesments occuring Family Present and informed to notify staff if they need to leave bedside As available Patient and Family Educated on Fall Prevention Program and strategies. Assessment: 12:03 Reassessment: No changes from previously documented assessment. Patient and/or family ll1 updated on plan of care and expected duration. Pain level reassessed. Patient is alert, oriented x 3, equal unlabored respirations, skin warm/dry/pink. Vital Signs: 11:43 BP 131 / 65; Pulse 69; Resp 18; Temp 98.1; Pulse Ox 100% on R/A; Weight 79.38 kg; kr3 Height 5 ft. 2 in. (157.48 cm); Pain 9/10; 11:43 Body Mass Index 32.01 (79.38 kg, 157.48 cm) kr3 ED Course: 11:38 Patient arrived in ED. am2 11:49 Triage completed. kr3 11:49 Yessi Glover FNP-C is PHCP. kb 11:49 Murray Ponce MD is Attending Physician. kb 11:52 Arm band placed on left wrist. kr3 12:00 Senait Carrizales, RN is Primary Nurse. kc6 12:00 Peter Madden, JACKELINE is Primary Nurse. kc6 12:01 Patient placed in an exam room, on a stretcher. kc6 12:03 Patient has correct armband on for positive identification. Bed in low position. Call ll1 light in reach. Cardiac monitoring not applicable on this patient. 12:34 CT Head C Spine In Process Unspecified. EDMS 12:49 Ribs Left XRAY In Process Unspecified. EDMS 12:49 Humerus Left XRAY In Process Unspecified. EDMS 13:40 No provider procedures requiring assistance completed. Patient did not have IV access kc6 during this emergency room visit. Administered Medications: 13:40 Drug: traMADol 50 mg Route: PO; kc6 13:40 Follow up: Response: No adverse reaction; Pain is decreased kc6 Medication: 12:03 VIS not applicable for this client. ll1 Outcome: 13:17 Discharge ordered by . kb 13:41 Discharged to home via wheelchair, with family. kc6 13:41 Condition: stable 13:41 Discharge instructions given to patient, family, Instructed on discharge instructions, follow up and referral plans. Demonstrated understanding of instructions, follow-up care. 13:41 Patient left the ED. kc6 Signatures: Dispatcher [employer] EDMS Yessi Glover, JAMIE-C SAFETY PHYSICIAN-CkSusan Plata am2 Peter Madden RN RN ll1 Bonita Rivera RN RN kr3 Senait Carrizales RN RN kc6
--- NOTE | 2022-04-20 13:18 | EDPHYS ---
Physician Documentation [facility] Name: Kinga Singleton Age: 71 yrs Sex: Female : 1950 Arrival Date: 04/20/2022 Time: 11:38 Bed 13 Private MD: ED Physician Murray Ponce HPI: 04/20 13:01 This 71 yrs old Female presents to ER via Wheelchair with complaints of head kb pain, left flank pain. 13:01 Severity of symptoms: At their worst the symptoms were moderate, in the emergency kb department the symptoms are unchanged. The patient has not experienced similar symptoms in the past. The patient has not recently seen a physician. 13:02 Details of fall: The patient fell from an upright position, while walking. Onset: The kb symptoms/episode began/occurred 4 day(s) ago. Associated injuries: The patient sustained injury to the head, pain, injury to the chest, pain with movement, tenderness. Pt slipped and fell on Sunday landing on left side and hitting head. Denies loc. Son states pt has had a headache and dizziness since the fall. Pt c/o left chest pain, worse with breathing and palpation. . Historical: - Allergies: 11:49 No Known Allergies; kr3 - PMHx: 11:49 Diabetes - IDDM; Hypercholesterolemia; Hypertensive disorder; kr3 - PSHx: 11:49 Total abdominal hysterectomy; kr3 - Immunization history:: Adult Immunizations not up to date. - Social history:: Smoking status: Patient denies any tobacco usage or history of. ROS: 13:00 Constitutional: Negative for fever, chills, and weight loss. kb 13:00 Cardiovascular: Positive for chest pain, of the left lateral posterior chest and left lateral anterior chest. 13:00 Neuro: Positive for headache. 13:00 All other systems are negative. Exam: 13:00 Constitutional: This is a well developed, well nourished patient who is awake, alert, kb and in no acute distress. Head/Face: Normocephalic, atraumatic. ENT: Moist Mucous membranes Cardiovascular: Regular rate and rhythm with a normal S1 and S2. No gallops, murmurs, or rubs. No pulse deficits. Respiratory: Respirations even and unlabored. No increased work of breathing. Talking in full sentences Abdomen/GI: Soft, non-tender. No distention Skin: Warm, dry with normal turgor. Normal color. MS/ Extremity: Pulses equal, no cyanosis. Neurovascular intact. Full, normal range of motion. Neuro: Awake and alert, GCS 15, oriented to person, place, time, and situation. Moves all extremities. Normal gait. Psych: Awake, alert, with orientation to person, place and time. Behavior, mood, and affect are within normal limits. 13:00 Chest/axilla: Inspection: normal, Palpation: tenderness, that is mild, of the anterior aspect of left upper chest and left lateral anterior chest, that totally reproduces the patient's complaints, Axilla: are normal. Vital Signs: 11:43 BP 131 / 65; Pulse 69; Resp 18; Temp 98.1; Pulse Ox 100% on R/A; Weight 79.38 kg; kr3 Height 5 ft. 2 in. (157.48 cm); Pain 9/10; 11:43 Body Mass Index 32.01 (79.38 kg, 157.48 cm) kr3 MDM: 11:49 Patient medically screened. kb 12:57 Data reviewed: vital signs, nurses notes. Data interpreted: Pulse oximetry: on room air kb is 100 %. Interpretation: normal. Counseling: I had a detailed discussion with the patient and/or guardian regarding: the historical points, exam findings, and any diagnostic results supporting the discharge/admit diagnosis, radiology results, the need for outpatient follow up, a family practitioner, to return to the emergency department if symptoms worsen or persist or if there are any questions or concerns that arise at home. 04/20 11:58 Order name: Ribs Left XRAY; Complete Time: 12:57 kb 04/20 12:00 Order name: CT Head C Spine; Complete Time: 12:54 kb 04/20 12:00 Order name: Humerus Left XRAY; Complete Time: 12:57 kb Administered Medications: 13:40 Drug: traMADol 50 mg Route: PO; kc6 13:40 Follow up: Response: No adverse reaction; Pain is decreased kc6 Disposition Summary: 04/20/22 13:17 Discharge Ordered Location: Home kb Condition: Stable kb Diagnosis - Unspecified injury of head, initial encounter kb - Chest pain, unspecified - chest wall pain kb - Fall on same level from slipping, tripping and stumbling without subsequent kb striking against object Followup: kb - With: Emergency Department - When: As needed - Reason: Worsening of condition Followup: kb - With: Private Physician - When: 2 - 3 days - Reason: Recheck today's complaints, Continuance of care, Re-evaluation by your physician Discharge Instructions: - Discharge Summary Sheet kb - Chest Wall Pain, [id number] kb - Head Injury, Adult, [id number] kb Forms: - Medication Reconciliation Form kb - Thank You Letter kb - Antibiotic Education kb - Prescription Opioid Use kb Addendum: 04/22/2022 08:31 Co-signature as Attending Physician, Murray Ponce MD I agree with the assessment and c bey plan of care. Signatures: Dispatcher [employer] EDYessi Negron, FELTING MACHINE OPERATOR HELPER-C FELTING MACHINE OPERATOR HELPER-Murray Daniels MD MD cha Reid, Kelley, RN RN kr3 Senait Carrizales RN RN kc6
[2022-04-20] MEDS ORDERED: TRAMADOL HCL 50 MG TAB ONE (13:30)
[2022-04-20 14:15] VITALS: BP 131/65; TEMP 98.1; O2SAT 100
== END 2022-04-20 13:41 | disposition home or self-care (01) ==
LOC: ER 11:37
DX: S09.90XA Unspecified injury of head, initial encounter (principal); R07.89 Other chest pain; W01.0XXA Fall on same level from slipping, tripping and stumbling without subsequent striking against object, initial encounter; I10 Essential (primary) hypertension
CPT/HCPCS: 70450; 72125; 99283

== ENCOUNTER 2022-05-16 13:10 | Emergency (ER) | payer OTHER ==
--- OUTSIDE RECORDS SUMMARY | 2022-05-16 13:33 | XMS REPORT | Continuity of Care Document ---
:1950 Author Organization [facility] t Address [address] [place] [address] Care Team Providers Name Role Phone Kirby Yanes Primary Care Physician [phone] Kari Groves Attending Clinician Unavailable Leslie Hinds Attending Clinician LESLIE MARTINEZ Attending Clinician Unavailable Doctor Unassigned, [place] Attending Clinician Unavailable Kari Groves Admitting Clinician Unavailable Payers Payer Name Policy Type Policy Number Effective Date Expiration Date S ource Problems Condition Condition Condition Status Onset Resolution Last Treating Co mments Source Name Details Category Date Date Treatment Clinician Date Chronic Chronic Disease Active Univers pain of pain of 7-31 [place] [facility] Sjogren's Sjogren's Disease Active Uni vers syndrome: syndrome: 7-11 ity of +SSA +SSA 00:00: [address] Proteinuri Proteinuri Disease Active U nivers a a 6-13 ity of 00:00: [address] ESR raised ESR raised Disease Active U nivers 6-06 ity of 00:00: [address] 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 4-04 it y of present present 00:00: [address] Immunizati Immunizati Disease Active U nivers on on 09-05 it[place] [facility] Rotator Rotator Disease Active Univers cuff tear cuff tear 04 ity of arthropath arthropath [place] right y of right 00 Me dical shoulder shoulder Branch Dry eyes Dry eyes Disease Active Unive rs 4- ity of 00:00: [place] [address] Medical Branch Pain in Pain in Disease Active Univers both hands both hands 09-05 it y of 00:00: [address] Allergies, Adverse Reactions, Alerts Allergy Allergy Status Severity Reaction(s) Onset Inactive Treating Comm ents Source Name Type Date Date Clinician No Known DA Active U 2013-[address] [facility] [address] [facility] NO KNOWN Drug Active Univers ALLERGIE Class ity of S [facility] Social History Social Habit Start Date Stop Date Quantity Comments Source Tobacco use and 2017-09-05 2017-09-05 Never used Universit y of exposure 00:00:00 00:00:00 [facility] Alcohol intake 2017-09-05 2017-09-05 Current University of 00:00:00 00:00:00 non-drinker of [facility] alcohol Branch (finding) Sex Ass[birth year] Universit y of 00:00:00 00:00:00 [facility] Smoking Status Start Date Stop Date Source Never smoker [facility] Medications Ordered Filled Start Stop Current Ordering Indication Dosage Frequency Signature Comments Components Source Medication Medication Date Date Medication? Clinician (SIG) Name Name JOAN XR 2021-1 No 50-1000 MG 07-11 TB24 00:00: 00 Dose 2021-1 No Unknown 1- 00:00: 00 MUPIROCIN 2 2021-0 No % OINT 02-08 00:00: 00 MUPIROCIN 2 2021-0 No % OINT 02-08 00:00: 00 MUPIROCIN 2 2021-0 No % OINT 02-08 00:00: 00 &lt 2021-0 No 8 8-10 00:00: 00 &lt 2-0 No 8 8-10 00:00: 00 &lt 2-0 No 8 8-10 00:00: 00 &lt 2021-0 No 8-08 00:00: 00 &lt 2022-0 No [...] 2022-0 No 8-03 00:00: 00 TOME JAGDISH 2021-0 No TABLETA DOS 7-26 VECES AL D 00:00: A 00 Dose 2022-0 No Unknown 7- 00:00: 00 TOME JAGDISH 2-0 No 40 TABLETA POR 7-26 V A ORAL 00:00: TODOS LOS D 00 TOME JAGDISH 2021-0 No TABLETA DOS 7-26 VECES AL D 00:00: A 00 Dose 2022-0 No Unknown 7- 00:00: 00 TOME JAGDISH 2-0 No 40 TABLETA POR 7-26 V A ORAL 00:00: TODOS LOS D 00 TOME JAGDISH 2021-0 No TABLETA DOS 7-26 VECES AL D 00:00: A 00 Dose 2022-0 No Unknown 7- 00:00: 00 TOME JAGDISH 2-0 No 40 TABLETA POR 7-26 V A ORAL 00:00: TODOS LOS D 00 TOME JAGDISH 2021-0 No TABLETA DOS 7-26 VECES AL D 00:00: A 00 Dose 2022-0 No Unknown 12-27 00:00: 00 TOME JAGDISH 2021-0 No 40 TABLETA POR 7-26 V A ORAL 00:00: TODOS LOS D 00 Dose 2021-0 No Unknown 12-26 00:00: 00 Dose 202-0 No Unknown 12-26 00:00: 00 Dose 2022-0 No Unknown 12-26 00:00: 00 Dose 202-0 No Unknown 12-26 00:00: 00 TOME JAGDISH 2021-0 No TABLETA DOS 7-12 VECES AL D 00:00: A 00 TOME JAGDISH 2021-0 No TABLETA DOS 7-12 VECES AL D 00:00: A 00 TOME JAGDISH 2021-0 No TABLETA DOS 7-12 VECES AL D 00:00: A 00 TOME JAGDISH 2021-0 No TABLETA DOS 7-12 VECES AL D 00:00: A 00 INJECT 2021-0 No UNITS BELOW 7-06 THE SKIN AT 00:00: BEDTIME 00 INJECT 55 UNITS APLIQUE A 2021-0 No DIARIO A LA 7-06 PIEL EL LC 00:00: AFECTADA 00 TODOS LOS D INJECT 2021-0 No UNITS BELOW 7-06 THE SKIN AT 00:00: BEDTIME 00 INJECT 55 UNITS APLIQUE A 2021-0 No DIARIO A LA 7-06 PIEL EL LC 00:00: AFECTADA 00 TODOS LOS D INJECT 2021-0 No UNITS BELOW 7-06 THE SKIN AT 00:00: BEDTIME 00 INJECT 55 UNITS APLIQUE A 2021-0 No DIARIO A LA 7-06 PIEL EL LC 00:00: AFECTADA 00 TODOS LOS D INJECT 2021-0 No UNITS BELOW 7-06 THE [...] PARA EL COLESTEROL Dose 2021-0 No Unknown 7- 00:00: 00 Dose 2021-0 No Unknown 7- 00:00: 00 Dose 2021-0 No Unknown 7 00:00: 00 TAKE 1 2021-0 No 100 [...] No Unknown 7 00:00: 00 TAKE 1 2021-0 No 10 TABLET BY 7-05 MOUTH DAILY 00:00: JULIET JAGDISH 00 TABLETA JAGDISH VECE AL PITO PARA LA SHANNAN OSEA TAKE 1 2021-0 No 20 TABLET BY 705 MOUTH AT 00:00: BEDTIME 00 JULIET JAGDISH [...] 7- 00:00: 00 TAKE 1 2021-0 No 10 [...] No Unknown 7 00:00: 00 TAKE 1 2021-0 No 100 [...] No Unknown 7 00:00: 00 TAKE 1 2-0 No 100 TABLET BY -05 MOUTH DAILY 00:00: JULIET JAGDISH 00 TABLETA JAGDISH VECES AL PITO PARA LA PRESION ARTERIAL TOME JAGDISH 2-0 No 10 TABLETA POR 05 V A ORAL 00:00: TODOS LOS D 00 TOME JAGDISH 2-0 No 500 TABLETA 12-06 TODOS LOS D 00:00: 00 Dose 2-0 No Unknown 12-06 00:00: 00 Dose 2022-0 No Unknown 12-06 00:00: 00 Levemir 2022-0 No (3 mL) [...] 00:00: tablet,exte 00 nded release Janumet XR 2021-0 No 1mg 50 mg-1,000 6-20 mg 00:00: tablet,exte 00 nded release lovastatin 2021-0 No 1mg 20 mg 6-20 tablet 00:00: 00 Levemir 2021-0 No (3 mL) FlexTouch 6-20 U-100 00:00: Insulin 100 00 unit/mL (3 mL) subcutaneou s pen lisinopril 2021-0 No 1mg 40 mg 6-20 tablet 00:00: 00 metoprolol 2-0 No 1mg succinate 6-20 ER 100 mg 00:00: tablet,exte 00 nded release 24 hr amlodipine 2021-0 No 1mg 10 mg 6-20 tablet 00:00: 00 alendronate 2-0 No 1mg 10 mg 6-20 tablet 00:00: 00 Janumet XR 2-0 No 1mg 100 6-20 mg-1,000 mg 00:00: tablet,exte 00 nded release Janumet XR 2021-0 No 1mg 50 mg-1,000 6-20 mg 00:00: tablet,exte 00 nded release lovastatin 2021-0 No 1mg 20 mg 6-20 tablet 00:00: 00 APLIQUE A No DIARIO A LA 6-17 PIEL EL LC 00:00: AFECTADA 00 TODOS LOS D APLIQUE A No DIARIO A LA 6-17 PIEL EL LC 00:00: AFECTADA 00 TODOS LOS D APLIQUE A No DIARIO A LA 6-17 PIEL EL LC 00:00: AFECTADA 00 TODOS LOS D APLIQUE A 0 No DIARIO A LA 6-17 PIEL EL LC 00:00: AFECTADA 00 TODOS LOS D APLIQUE A No DIARIO A LA 6-17 PIEL EL [...] 2-0 No Unknown 4-23 00:00: 00 levofloxaci 2-0 No 1mg n 500 mg 4-23 tablet [...] 2-0 No Unknown 4-23 00:00: 00 levofloxaci 2-0 No 1mg n 500 mg 4-23 tablet [...] 2022-0 No Unknown 4-21 00:00: 00 Dose 2-0 No Unknown 4-21 00:00: 00 Dose 2-0 No Unknown 4-21 00:00: 00 Dose 2-0 No Unknown 4-21 00:00: 00 Dose 2-0 No Unknown 4-21 00:00: 00 Dose 2022-0 No Unknown 4-21 00:00: 00 Dose 2022-0 No Unknown 4-21 00:00: 00 Dose 2022-0 No Unknown 4-20 00:00: 00 Dose 2022-0 No Unknown 4-20 00:00: 00 Dose 2022-0 No Unknown 4-20 00:00: 00 Dose 2-0 No Unknown 4-20 00:00: 00 Dose 2-0 No Unknown 4-20 00:00: 00 sulfamethox 2-0 No 1mg azole 800 4-19 mg-trimetho 00:00: prim 160 mg 00 tablet sulfamethox 2-0 No 1mg azole 800 4-19 mg-trimetho 00:00: prim 160 mg 00 tablet sulfamethox 2-0 No 1mg azole 800 4-19 mg-trimetho 00:00: prim 160 mg 00 tablet sulfamethox 2-0 No 1mg azole 800 4-19 mg-trimetho 00:00: prim 160 mg 00 tablet sulfamethox 2-0 No 1mg azole 800 4-19 mg-trimetho 00:00: prim 160 mg 00 tablet Levemir 2-0 No (3 mL) FlexTouch 3-24 U-100 00:00: Insulin 100 00 unit/mL (3 mL) subcutaneou s pen alendronate 2-0 No 1mg 10 mg 3-24 tablet 00:00: 00 amlodipine 2-0 No 1mg 10 mg 3-24 tablet 00:00: 00 Dose 2-0 No Unknown 3-24 00:00: 00 metoprolol 2-0 No 1mg succinate 3-24 ER 100 mg 00:00: tablet,exte 00 nded release 24 hr lisinopril 2-0 No 1mg 40 mg 3-24 tablet 00:00: 00 Janumet XR 2-0 No 1mg 100 3-24 mg-1,000 mg 00:00: [...] unit/mL (3 mL) subcutaneou s pen alendronate 2-0 No 1mg 10 mg 3-24 tablet 00:00: [...] mg 3-24 tablet 00:00: 00 aspirin 81 2-0 No 1mg mg 3-24 tablet,teressa 00:00: yed [...] 2022-0 No Unknown 2-02 00:00: 00 Dose 2022-0 No Unknown 2-02 00:00: 00 Dose 2022-0 No Unknown 2-02 00:00: 00 Dose 2022-0 No Unknown 2-02 00:00: 00 Dose 2022-0 No Unknown 2-02 00:00: 00 Levemir 2020-06 No (3 mL) [...] 2020-06 No Unknown 2-08 00:00: 00 Dose 2020- [...] topical 0-27 ointment 00:00: 00 mupirocin 2 2020-1 No 1% % topical 0-27 ointment 00:00: 00 mupirocin 2 2020-1 No 1% % topical 0-27 ointment 00:00: 00 clindamycin 2020-1 No 1mg HCl 300 mg 0-13 capsule 00:00: 00 clindamycin 2020-1 No 1mg HCl 300 mg 0-13 capsule 00:00: 00 clindamycin 2020-1 No 1mg HCl 300 mg 0-13 capsule 00:00: 00 clindamycin 2020-1 No 1mg HCl 300 mg 0-13 capsule 00:00: 00 clindamycin 2020-1 No 1mg HCl 300 mg 0-13 capsule 00:00: 00 mupirocin 2 2020-1 No 1% % topical 0-07 ointment 00:00: 00 clindamycin 2020-1 No 1mg HCl 300 mg 0-07 capsule 00:00: 00 mupirocin 2 2020-1 No 1% % topical 0-07 ointment 00:00: 00 clindamycin 2020-1 No 1mg HCl 300 mg 0-07 capsule 00:00: 00 mupirocin 2 2020-1 No 1% % topical 0-07 ointment 00:00: 00 clindamycin 2020-1 No 1mg HCl 300 mg 0-07 capsule 00:00: 00 mupirocin 2 2020-1 No 1% % topical 0-07 ointment 00:00: 00 clindamycin 2020-1 No 1mg HCl 300 mg 0-07 capsule 00:00: 00 mupirocin 2 2020-1 No 1% % topical 0-07 ointment 00:00: 00 clindamycin 2020-1 No 1mg HCl 300 mg 0-07 capsule 00:00: 00 Levemir 1-0 No (3 mL) FlexTouch 9-20 U-100 00:00: Insulin 100 00 unit/mL (3 mL) subcutaneou s pen alendronate 1-0 No 1mg 10 mg 9-20 tablet 00:00: 00 amlodipine 1-0 No 1mg 10 mg 9-20 tablet 00:00: 00 lisinopril 1-0 No 1mg 40 mg 9-20 tablet 00:00: 00 aspirin 81 1-0 No 1mg mg 9-20 tablet,teressa 00:00: yed [...] mg 9-20 tablet 00:00: 00 aspirin 81 1-0 No 1mg mg 9-20 tablet,teressa 00:00: yed release 00 metoprolol 1-0 No 1mg succinate 9-20 ER 100 mg [...] pen Levemir 1-0 No (3 mL) FlexTouch 5-25 U-100 00:00: [...] 20 mg 5-25 tablet 00:00: 00 Levemir 1-0 No (3 mL) FlexTouch 5-25 U-100 00:00: Insulin 100 00 unit/mL (3 mL) subcutaneou s pen metoprolol 1-0 No 1mg succinate 5-25 ER 100 mg 00:00: tablet,exte 00 nded release 24 hr aspirin 81 1-0 No 1mg mg 5-25 tablet,teressa 00:00: yed release 00 amlodipine 1-0 No 1mg 10 mg 5-25 tablet 00:00: 00 lisinopril 2021-0 No 1mg 40 mg 5-25 tablet 00:00: 00 alendronate 1-0 No 1mg 10 mg 5-25 tablet 00:00: 00 Janumet XR 1-0 No 1mg 100 5-25 mg-1,000 mg 00:00: tablet,exte 00 nded release lovastatin 2020-0 No 1mg 20 mg 5-25 tablet 00:00: 00 Levemir 1-0 No (3 mL) FlexTouch 5-24 U-100 00:00: Insulin 100 00 unit/mL (3 mL) subcutaneou s pen Levemir 2020-0 No (3 mL) FlexTouch 5-24 U-100 00:00: Insulin 100 00 unit/mL (3 mL) subcutaneou s pen Levemir 1-0 No (3 mL) FlexTouch 5-24 U-100 00:00: Insulin 100 00 unit/mL (3 mL) subcutaneou s pen Levemir 1-0 No (3 mL) FlexTouch 5-24 U-100 00:00: [...] 00 Levemir 2021-0 No (3 mL) FlexTouch 2-22 U-100 00:00: Insulin 100 00 unit/mL (3 mL) subcutaneou s pen Levemir 2021-0 No (3 mL) FlexTouch 2-22 U-100 00:00: Insulin 100 00 unit/mL (3 mL) subcutaneou s pen Levemir 2021-0 No (3 mL) FlexTouch 2-22 U-100 00:00: [...] mg 2-12 tablet 00:00: 00 Janumet XR 2020-0 No 1mg 100 2-12 mg-1,000 mg 00:00: [...] 20 mg 2-04 tablet 00:00: 00 Levemir 2021-0 No (3 mL) FlexTouch 1-25 U-100 00:00: Insulin 100 00 unit/mL (3 mL) subcutaneou s pen Levemir 2021-0 No (3 mL) FlexTouch 1-25 U-100 00:00: [...] unit/mL (3 mL) subcutaneou s pen alendronate 2019- No 1mg 10 mg 1-10 tablet 00:00: 00 metoprolol 2019- No 1mg succinate 1-10 ER 100 mg [...] (3 mL) subcutaneou s pen aspirin 81 2020-1 No 1mg mg 1-07 tablet,teressa 00:00: yed release 00 amlodipine 2020-1 No 1mg 10 mg 1-07 tablet 00:00: 00 lisinopril 2020-1 No 1mg 40 mg 1-07 tablet 00:00: 00 lovastatin 2020-1 No 1mg 20 mg 1-07 tablet 00:00: 00 Alcohol 2020-1 No 1 Pads 1-07 00:00: 00 Levemir 2020-1 No (3 mL) FlexTouch 1-07 U-100 00:00: Insulin 100 00 unit/mL (3 mL) subcutaneou s pen aspirin 81 2020-1 No 1mg mg 1-07 tablet,teressa 00:00: yed [...] tablet,teressa 00:00: yed release 00 aspirin 81 2017-1 No 1mg mg 0-30 tablet,teressa 00:00: yed [...] to ity o f gel 00:00: affected [place] 00 area twice Medical daily Branch Diclofenac 2018-0 Yes Apply Univer s Sodium 1 % 7-31 1gram to ity o f gel 00:00: affected [place] 00 area twice Medical daily Branch Diclofenac 2018-0 Yes Apply Univer s Sodium 1 % 7-31 1gram to ity o f gel 00:00: affected [place] 00 area twice Medical daily Branch Diclofenac 2018-0 Yes Apply Univer s Sodium 1 % 7-31 1gram to ity o f gel 00:00: affected [place] 00 area twice Medical daily Branch aspirin [...] to ity o f gel 00:00: affected [place] 00 area twice Medical daily Branch Diclofenac 2018-0 Yes Apply Univer s Sodium 1 % 4-04 1gram to ity o f gel 00:00: affected [place] 00 area twice Medical daily Branch Diclofenac 2018-0 Yes Apply Univer s Sodium 1 % 4-04 1gram to ity o f gel 00:00: affected [place] 00 area twice Medical daily Branch Diclofenac 2018-0 Yes Apply Univer s Sodium 1 % 4-04 1gram to ity o f gel 00:00: affected [place] 00 area twice Medical daily Branch ciprofloxac 2018-0 Yes 500mg Take 500 U nivers in HCl 500 3-19 mg by ity of mg tablet 00:00: mouth. [place] [facility] ciprofloxac 2018-0 Yes 500mg Take 500 U nivers in HCl 500 3-19 mg by ity of mg tablet 00:00: mouth. [place] [facility] ciprofloxac 2018-0 Yes 500mg Take 500 U nivers in HCl 500 3-19 mg by ity of mg tablet 00:00: mouth. [place] [facility] ciprofloxac 2018-0 Yes 500mg Take 500 U nivers in HCl 500 3-19 mg by ity of mg tablet 00:00: mouth. Medical Branch ciprofloxac 2018-0 No 1mg in 500 mg 3-19 tablet 00:00: 00 ciprofloxac 2018-0 No 1mg in 500 mg 3-19 tablet 00:00: 00 ciprofloxac 2018-0 No 1mg in 500 mg 3-19 tablet 00:00: 00 ciprofloxac 2018-0 No 1mg in 500 mg 3-19 tablet 00:00: 00 ciprofloxac 2018-0 No 1mg in 500 mg 3-19 tablet 00:00: 00 atorvastati 2018-0 Yes 40mg Take 40 mg [...] 00:00: mouth 00 daily. Medical Branch atorvastati 0 Yes 40mg Take 40 mg Univers n 20 mg 3-04 by mouth. ity of tablet 00:00: Medical Branch nitrofurant 2017-0 Yes 100mg Take 100 U nivers oin 100 mg 3-04 mg by ity of capsule 00:00: mouth daily. Medical Branch atorvastati 2017-0 Yes 40mg Take 40 mg Univers n 20 mg 3-04 by mouth. ity of tablet 00:00: Medical Branch nitrofurant 2017-0 Yes 100mg Take 100 U nivers oin 100 mg 3-04 mg by ity of capsule 00:00: mouth 00 daily. Medical Branch SARAH PEN 2017-0 Yes misc Univers NEEDLE 32 2-27 ity of gauge x 00:00: [place] " Ndle 00 Medical Branch amLODIPine 2017-0 Yes 10mg Take 10 mg U nivers 10 mg 2-27 by mouth ity of tablet 00:00: daily. Medical Branch aspirin 81 2017-0 Yes 81mg Take 81 mg U nivers [...] 2-27 ity of gauge x 00:00: [place] 532" Ndle Medical Branch amLODIPine Yes 10mg Take [...] TABLETA ity o f iazide 00:00: TODOS [facility] 100-12.5 mg 00 D? Medical per tablet [...] 32 2-27 ity of gauge x 00:00: [place] " Ndle 00 Medical Branch amLODIPine Yes [...] TABLETA ity o f iazide 00:00: TODOS [facility] 100-12.5 mg 00 D? Medical per tablet [...] of gauge x 00:00: [place] " Ndle Medical Branch amLODIPine Yes 10mg [...] 2018-0 Yes 10mg Take 10 mg Un rodegr 10 mg 2-27 by mouth 2 ity of tablet 00:00: (two) [place] 00 times Medical daily. Branch aspirin 81 [...] mg 2-27 tablet,teressa 00:00: yed release 00 VITAMIN D2 0 Yes TAKE 1 Unive rs 50,000 unit 2-14 CAPSULE ity o f capsule 00:00: ONCE A [place] WEEK FOR Medical 13 WEEKS Branch VITAMIN D2 0 Yes TAKE 1 Unive rs 50,000 unit 2-14 CAPSULE ity o f capsule 00:00: ONCE A [place] WEEK FOR Medical 13 WEEKS Branch VITAMIN D2 0 Yes TAKE 1 Unive rs 50,000 unit 2-14 CAPSULE ity o f capsule 00:00: ONCE A [place] WEEK FOR Medical 13 WEEKS Branch VITAMIN D2 0 Yes TAKE 1 Unive rs 50,000 unit 2-14 CAPSULE ity o f capsule 00:00: ONCE A [place] WEEK FOR Medical 13 WEEKS Branch Vitamin D2 2017-0 No 1unit 50,000 unit 2-14 capsule 00:00: 00 Vitamin D2 2018-0 No 1unit 50,000 unit 2-14 capsule 00:00: 00 Vitamin D2 2018-0 No 1unit 50,000 unit 2-14 capsule 00:00: 00 Vitamin D2 2018-0 No 1unit 50,000 unit 2-14 capsule 00:00: 00 Vitamin D2 2018-0 No 1unit 50,000 unit 2-14 capsule 00:00: 00 alendronate 2017-0 Yes 10mg Take 10 mg Univers 10 mg 2-13 by mouth ity of tablet 00:00: daily. [address] alendronate 2018-0 Yes 10mg Take 10 mg Univers 10 mg 2-13 by mouth ity of tablet 00:00: daily. [address] alendronate 2018-0 Yes 10mg Take 10 mg Univers 10 mg 2-13 by mouth ity of tablet 00:00: daily. [address] alendronate 2018-0 Yes 10mg Take 10 mg Univers 10 mg 2-13 by mouth ity of tablet 00:00: daily. [address] alendronate 2018-0 No 1mg 10 mg 2-12 tablet 00:00: 00 alendronate 2018-0 No 1mg 10 mg 2-12 tablet 00:00: 00 alendronate 2018-0 No 1mg 10 mg 2-12 tablet 00:00: 00 alendronate 2018-0 No 1mg 10 mg 2-12 tablet 00:00: 00 alendronate 2018-0 No 1mg 10 mg 2-12 tablet 00:00: 00 aspirin 81 2017-1 No 1mg mg 1-28 tablet,teressa 00:00: yed release 00 glipizide 2017-1 No 1mg 10 mg 1-28 tablet 00:00: 00 pantoprazol 2017-1 No 1mg e 40 mg 1-28 tablet,teressa 00:00: yed release 00 amlodipine 2017-1 No 1mg 10 mg 1-28 tablet 00:00: 00 gabapentin 2017-1 No 1mg 100 mg 1-28 capsule 00:00: 00 aspirin 81 2017-1 No 1mg mg 1-28 tablet,teressa 00:00: yed release 00 glipizide 2017-1 No 1mg 10 mg 1-28 tablet 00:00: 00 pantoprazol 2017-1 No 1mg e 40 mg 1-28 tablet,teressa 00:00: yed release 00 amlodipine 2017-1 No 1mg 10 mg 1-28 tablet 00:00: 00 gabapentin 2017-1 No 1mg 100 mg 1-28 capsule 00:00: 00 aspirin 81 2017-1 No 1mg mg 1-28 tablet,teressa 00:00: yed [...] 1-28 tablet,teressa 00:00: yed release 00 glipizide 2016- No 1mg 10 mg 1-28 tablet 00:00: 00 pantoprazol 2016- No 1mg e 40 mg 1-28 tablet,teressa [...] 500 mg 0-24 tablet 00:00: 00 glipizide 2017- No 1mg 10 mg 0-24 tablet 00:00: 00 amlodipine 2017- No 1mg 10 mg 0-24 tablet 00:00: 00 gabapentin 2017- No 1mg 100 mg 0-24 capsule 00:00: 00 aspirin 81 2016- No 1mg mg 0-24 tablet,teressa 00:00: yed release 00 naproxen 2017- No 1mg 500 mg 0-24 tablet 00:00: 00 glipizide 2017- No 1mg 10 mg 0-24 tablet 00:00: 00 amlodipine 2017- No 1mg 10 mg 0-24 tablet 00:00: 00 gabapentin 2016- No 1mg 100 mg 0-24 capsule 00:00: 00 aspirin 81 2016-06 No 1mg mg 0-24 tablet,teressa 00:00: yed release 00 naproxen 2016- No 1mg 500 mg 0-24 tablet 00:00: 00 glipizide 2016- No 1mg 10 mg 0-24 tablet 00:00: 00 amlodipine 2016- No 1mg 10 mg 0-24 tablet 00:00: 00 gabapentin 2016- No 1mg 100 mg 0-24 capsule 00:00: 00 aspirin 81 2016- No 1mg mg 0-24 tablet,teressa 00:00: yed release 00 naproxen 2016- No 1mg 500 mg 0-24 tablet 00:00: 00 glipizide 2017- No 1mg 10 mg 0-24 tablet 00:00: 00 amlodipine 2017- No 1mg 10 mg 0-24 tablet 00:00: 00 gabapentin 2017- No 1mg 100 mg 0-24 capsule 00:00: 00 aspirin 81 2016- No 1mg mg 0-24 tablet,teressa 00:00: yed release 00 naproxen 2017- No 1mg 500 mg 0-24 tablet 00:00: 00 glipizide 2017- No 1mg 10 mg 0-24 tablet 00:00: 00 amlodipine 2017- No 1mg 10 mg 0-24 tablet 00:00: 00 gabapentin 2017- No 1mg 100 mg 0-24 capsule 00:00: [...] aspirin 81 2017-0 No 1mg mg 4-24 tablet,teresas 00:00: yed release 00 amlodipine 2017-0 No [...] 20 mg 2-14 tablet 00:00: 00 amlodipine 2015-1 No 1mg 5 mg tablet 2-12 00:00: 00 amlodipine 2015-1 No 1mg 5 mg tablet 2-12 00:00: 00 amlodipine 2016-1 No 1mg 5 mg tablet 2-12 00:00: 00 amlodipine 2015-06 No 1mg 5 mg tablet 2-12 00:00: 00 amlodipine 2015-06 No 1mg 5 mg tablet 2-12 00:00: 00 amlodipine 2015-06 No 1mg 5 mg tablet 2-12 00:00: 00 amlodipine 2015-06 No 1mg 5 mg tablet 2-12 00:00: 00 amlodipine 2015-06 No 1mg 5 mg tablet 2- 00:00: 00 amlodipine 2015-06 No 1mg 5 mg tablet 2-12 00:00: 00 amlodipine 2015-06 No 1mg 5 mg tablet 2-12 00:00: 00 Immunizations Ordered Immunization Filled Immunization Date Status Commen ts Source Name Name Myron DICKINSONID-19 2021-08-24 Completed Vaccine 00:00:00 Myron COVID-19 2021-08-24 Completed Vaccine 00:00:00 Latoyaa COVID-19 2021-08-24 Completed Vaccine 00:00:00 Moderna COVID-19 [...] Time Observation Value Comments Source BP Systolic 2022-05-09 09:43:00 158 mm[Hg] BP Diastolic 2022-05-09 09:43:00 83 mm[Hg] Weight Measured 2022-05-09 09:43:00 160.80 pounds Height Measured 2022-05-09 09:43:00 61.50 inches Body Temperature 2022-05-09 09:43:00 98.30 degrees Heart Rate 2022-05-09 09:43:00 67.00 /min Respiratory Rate 2022-05-09 09:43:00 BP Systolic 2022-03-08 10:40:00 157 mm[Hg] BP [...] Procedure Date / Time Performed Performing Clinician [facility] e [id number] 2022-04-27 00:00:00 [facility] [id number] 2022-04-27 00:00:00 [facility] [id number] 2022-04-27 00:00:00 [facility] XR ANKLE 3+ VW LEFT 2020-10-14 18:55:23 Leslie Martinez [facility] XR HIPS 3 VW LEFT 2020-10-14 18:55:12 Leslie Martinez [facility] XR KNEE 3 VW LEFT 2020-10-14 18:54:59 Leslie Martinez [facility] ASSIGNMENT OF BENEFITS 2020-10-14 18:28:36 Doctor Unassigned, [facility] Ekg 2019-07-08 00:00:00 Plan of Care Planned Activity Planned Date Details Comments Source Goal Plan of Care Note [code = 85566-0] Goal Plan of Care Note [code = 39433-9] Goal Plan of Care Note [code = 32739-7] Goal Plan of Care Note [code = 85683-1] Goal Plan of Care Note [code = 08806-7] Goal Plan of Care Note [code = 50836-5] Goal Plan of Care Note [code = 23559-8] Goal Plan of Care Note [code = 75752-9] Goal Plan of Care Note [code = 08412-6] Goal Plan of Care Note [code = 46270-7] Goal Plan of Care Note [code = 98292-5] Goal Plan of Care Note [code = 59536-0] Goal Plan of Care Note [code = 91530-4] Goal Plan of Care Note [code = 31198-1] Goal Plan of Care Note [code = 98750-0] Goal Plan of Care Note [code = 88983-0] Goal Plan of Care Note [code = 43270-0] Goal Plan of Care Note [code = 85497-1] Goal Plan of Care Note [code = 06845-7] Goal Plan of Care Note [code = 27176-3] Goal Plan of Care Note [code = 24822-5] Goal Plan of Care Note [code = 84001-6] Goal Plan of Care Note [code = 45016-4] Goal Plan of Care Note [code = 44947-4] Goal Plan of Care Note [code = 77476-2] Goal Plan of Care Note [code = 59491-4] Goal Plan of Care Note [code = 72281-6] Goal Plan of Care Note [code = 18364-2] Goal Plan of Care Note [code = 07971-6] Goal Plan of Care Note [code = 38072-5] Goal Plan of Care Note [code = 43381-1] Goal Plan of Care Note [code = 86742-3] Goal Plan of Care Note [code = 87002-8] Goal Plan of Care Note [code = 35841-1] Goal Plan of Care Note [code = 29019-6] Goal Plan of Care Note [code = 41772-2] Goal Plan of Care Note [code = 10879-8] Goal Plan of Care Note [code = 50404-6] Goal Plan of Care Note [code = 89415-4] Goal Plan of Care Note [code = 65822-2] Goal Plan of Care Note [code = 01377-1] Goal Plan of Care Note [code = 85729-4] Goal Plan of Care Note [code = 86273-4] Goal Plan of Care Note [code = 35062-0] Goal Plan of Care Note [code = 97522-4] Goal Plan of Care Note [code = 65489-6] Goal Plan of Care Note [code = 62994-3] Goal Plan of Care Note [code = 82632-7] Goal Plan of Care Note [code = 20853-1] Goal Plan of Care Note [code = 32748-4] Goal Plan of Care Note [code = 83024-4] Goal Plan of Care Note [code = 03603-6] Goal Plan of Care Note [code = 50658-1] Goal Plan of Care Note [code = 84067-8] Goal Plan of Care Note [code = 40252-6] Goal Plan of Care Note [code = 52557-2] Goal Plan of Care Note [code = 66424-6] Goal Plan of Care Note [code = 76903-5] Goal Plan of Care Note [code = 49801-5] Goal Plan of Care Note [code = 71223-9] Goal Plan of Care Note [code = 79844-9] Goal Plan of Care Note [code = 50429-5] Goal Plan of Care Note [code = 32027-8] Goal Plan of Care Note [code = 48214-7] Goal Plan of Care Note [code = 54063-9] Goal Plan of Care Note [code = 91058-4] Goal Plan of Care Note [code = 92689-1] Goal Plan of Care Note [code = 94712-1] Goal Plan of Care Note [code = 14637-2] Goal Plan of Care Note [code = 73675-5] Goal Plan of Care Note [code = 44639-5] Goal Plan of Care Note [code = 29025-5] Goal Plan of Care Note [code = 62179-2] Goal Plan of Care Note [code = 55455-0] Goal Plan of Care Note [code = 80147-0] Goal Plan of Care Note [code = 43921-5] Goal Plan of Care Note [code = 96830-2] Goal Plan of Care Note [code = 24242-2] Goal Plan of Care Note [code = 88801-4] Goal Plan of Care Note [code = 48335-2] Goal Plan of Care Note [code = 43947-0] Goal Plan of Care Note [code = 62548-8] Goal Plan of Care Note [code = 14855-6] Goal Plan of Care Note [code = 04344-3] Goal Plan of Care Note [code = 34074-8] Goal Plan of Care Note [code = 92404-4] Goal Plan of Care Note [code = 75588-5] Goal Plan of Care Note [code = 50507-4] Goal Plan of Care Note [code = 23935-7] Goal Plan of Care Note [code = 41550-2] Goal Plan of Care Note [code = 70302-5] Goal Plan of Care Note [code = 00676-0] Goal Plan of Care Note [code = 34245-8] Goal Plan of Care Note [code = 94113-3] Goal Plan of Care Note [code = 25054-9] Goal Plan of Care Note [code = 81508-2] Goal Plan of Care Note [code = 03843-0] Goal Plan of Care Note [code = 78719-3] Goal Plan of Care Note [code = 99013-3] Goal Plan of Care Note [code = 11557-8] Goal Plan of Care Note [code = 70538-6] Goal Plan of Care Note [code = 15940-3] Goal Plan of Care Note [code = 62512-2] Goal Plan of Care Note [code = 81224-2] Goal Plan of Care Note [code = 64708-8] Goal Plan of Care Note [code = 29890-6] Goal Plan of Care Note [code = 10406-2] Goal Plan of Care Note [code = 42357-9] Goal Plan of Care Note [code = 69011-3] Goal Plan of Care Note [code = 50159-8] Goal Plan of Care Note [code = 40462-9] Goal Plan of Care Note [code = 72601-7] Goal Plan of Care Note [code = 39742-4] Goal Plan of Care Note [code = 28077-9] Goal Plan of Care Note [code = 33012-8] Goal Plan of Care Note [code = 10731-8] Goal Plan of Care Note [code = 43424-8] Goal Plan of Care Note [code = 41933-3] Goal Plan of Care Note [code = 12069-6] Goal Plan of Care Note [code = 62114-2] Goal Plan of Care Note [code = 50618-9] Goal Plan of Care Note [code = 30349-1] Goal Plan of Care Note [code = 32236-4] Goal Plan of Care Note [code = 02212-7] Goal Plan of Care Note [code = 92701-3] Goal Plan of Care Note [code = 56383-9] Goal Plan of Care Note [code = 25529-3] Goal Plan of Care Note [code = 55945-0] Goal Plan of Care Note [code = 76946-3] Goal Plan of Care Note [code = 30761-9] Goal Plan of Care Note [code = 56059-4] Goal Plan of Care Note [code = 26749-0] Goal Plan of Care Note [code = 56874-5] Goal Plan of Care Note [code = 26098-0] Goal Plan of Care Note [code = 65981-2] Goal Plan of Care Note [code = 84150-8] Goal Plan of Care Note [code = 70737-9] Goal Plan of Care Note [code = 49513-1] Goal Plan of Care Note [code = 31632-9] Goal Plan of Care Note [code = 29843-2] Goal Plan of Care Note [code = 37133-1] Goal Plan of Care Note [code = 65098-4] Goal Plan of Care Note [code = 67324-3] Goal Plan of Care Note [code = 86730-7] Goal Plan of Care Note [code = 71638-4] Goal Plan of Care Note [code = 11366-8] Goal Plan of Care Note [code = 00458-8] Goal Plan of Care Note [code = 43605-2] Goal Plan of Care Note [code = 62767-0] Goal Plan of Care Note [code = 81324-9] Goal Plan of Care Note [code = 31624-7] Goal Plan of Care Note [code = 56557-4] Goal Plan of Care Note [code = 01764-5] Goal Plan of Care Note [code = 64959-3] Goal Plan of Care Note [code = 83486-1] Goal Plan of Care Note [code = 92766-9] Goal Plan of Care Note [code = 86446-8] Goal Plan of Care Note [code = 80267-9] Goal Plan of Care Note [code = 75028-9] Goal Plan of Care Note [code = 21726-8] Goal Plan of Care Note [code = 31844-0] Goal Plan of Care Note [code = 85931-4] Goal Plan of Care Note [code = 45333-4] Goal Plan of Care Note [code = 65351-3] Goal Plan of Care Note [code = 41336-3] Goal Plan of Care Note [code = 19637-3] Goal Plan of Care Note [code = 26056-1] Goal Plan of Care Note [code = 52073-4] Goal Plan of Care Note [code = 91650-2] Goal Plan of Care Note [code = 93797-0] Goal Plan of Care Note [code = 38011-8] Goal Plan of Care Note [code = 10936-0] Goal Plan of Care Note [code = 97454-5] Goal Plan of Care Note [code = 94485-6] Goal Plan of Care Note [code = 95547-3] Goal Plan of Care Note [code = 71799-3] Goal Plan of Care Note [code = 94601-9] Goal Plan of Care Note [code = 12845-6] Goal Plan of Care Note [code = 98074-5] Goal Plan of Care Note [code = 78257-2] Goal Plan of Care Note [code = 15252-2] Goal Plan of Care Note [code = 00466-0] Goal Plan of Care Note [code = 82966-6] Goal Plan of Care Note [code = 47991-2] Goal Plan of Care Note [code = 01922-8] Goal Plan of Care Note [code = 75939-5] Goal Plan of Care Note [code = 15333-3] Encounters Start End Encounter Admission Attending Care Care Encounter Source Date/Time Date/Time Type Type Clinicians Facility Department ID 2022-05-10 2022-05-10 Outpatient [facility] [id number] Madhu 09:54:09 09:54:09 1207 F Ludin 2022-05-09 2022-05-09 Outpatient [facility] [id number] Madhu 09:38:21 09:38:21 1206 F Ludin 2022-05-09 2022-05-09 Outpatient [id number]- [id number] c9 ke14g0-h 00:00:00 00:00:00 Visit f967-911a 893-464a-a -q1s6-zw6 3q9-sq5c4p s7k6744s3 2158a2 2022-04-27 2022-04-29 Inpatient EM Da, [facility] [id number] [facility] 23:31:00 15:15:[address] [place] [address] 2022-03-08 2022-03-08 Outpatient [facility] [id number] Madhu 10:30:25 10:30:25 1005 F Ludin 2022-03-08 2022-03-08 Outpatient [id number]- [id number] c8 70e230-0 00:00:00 00:00:00 Visit 75f1-3kl8 1h6-7qx8-2 -08g2-a1q 5x1-v3p72o 81etv3s0y bf4e6c 2022-02-08 2022-02-08 Outpatient m208vyam- [id number] e0 39cfed-c 00:00:00 00:00:00 Visit j25o-39y8 47d-41e8-a -a193-9v8 655-1j8253 2866ks25u 7ff23b 2022-01-04 2022-01-04 Outpatient 6ly7y566- [id number] 8d i5x234-0 00:00:00 00:00:00 Visit 5476-7390 388-4690-8 -2rm1-7tt ed5-5ca68b 32y5574jb 6810ce 2021-12-06 2021-12-06 Outpatient [id number] 345992-d 00:00:00 00:00:00 Visit fec0-4c02 ec0-4c02-a -g090-004 538-264fda nbak3rg27 e1ba61 2020-10-14 2020-10-14 [facility] [id number] [facility] 13:34:04 23:59:00 Encounter Leslie Simon 350.1.13.10 [place] 4.2.7.2.686 [facility] [id number] [address] 2020-10-14 2020-10-14 [facility] 1.2.840.114 [id number] [employer] 13:33:50 13:33:50 Encounter Leslie Simon 350.1.13.10 [place]y of [place] 4.2.7.2.686 [facility] [id number] [address] 2020-10-14 2020-10-14 [facility] 1.2.840.114 [id number] [employer] 13:30:00 13:32:00 Encounter Leslie Simon 350.1.13.10 ity of [place] 4.2.7.2.686 [facility] [id number] [address] 2020-10-14 2020-10-14 Outpatient R [facility] [id number] [facility] 00:00:00 00:00:00 LESLIE lozano of [facility] 2020-10-14 2020-10-14 Orders Doctor AG 1.2.840.114 [id number] [facility] 00:00:00 00:00:00 Only Unassigned, RACHID 350.1.13.[address] [place] [facility] 4.2.7.2.686 Fredy as [phone] [facility] carline 009 Branch Results Test Description Test Time Test Comments Results Result Comments Source GLUBED 2022-04-29 10:13:00 Test Item Value Reference Range Interpretation Comme nts GLUBED (test code = GLUBED) 250 mg/dL 74-106 H Performed by certified wringer machine operator at [facility] ([facility]) COMPREHENSIVE METABOLIC [id number] 02:19:00 Test Item Value Reference Range Interpretation Comments SODIUM (test code = 138 mmol/L 136-145 N NA) POTASSIUM (test 4.2 mmol/L 3.5-5.1 N code = K) CHLORIDE (test code 110.0 mmol/L 98-107 H = CL) CARBON DIOXIDE 20.0 mmol/L 21-32 L (test code = CO2) ANION GAP (test 12.2 10-20 N code = GAP) GLUCOSE (test code 139 mg/dL 74-106 H = GLU) BLOOD UREA NITROGEN 18 mg/dL 7-18 RESULT V ERIFIED BY (test code = BUN) REPEAT ARMEN LYSIS GLOMERULAR 53 mL/min See_Comment The Glomerular FILTRATION RATE Filtration R ate is a (test code = GFR) calculated parameterbased on serum Creatinin e, patient age and sex. GFR valuesless than 60 mL/min/1.73 squ are meters are jordi cative ofChronic Kidne y Disease. Values less than 15 mL/min/1.73squa re meters indicate Kidney failure. The calculation for GFR is based on the CK D-EPI (2020) calculat ion. This formulais race indifferent and is the recommended for liseth for GFRby the N ational Kidney Foundati on for Adults.The GFR will not calculate i f the sex is unknown or if thepatient's ag e is <18 years. [Aut omated message] The sy stem which generated this result transmit ellie reference range : >=60. The reference r jihan was not used to interpret this result as normal/abnor mal. CREATININE (test 1.10 mg/dL 0.55-1.02 H Note rivera ge in code = CREAT) reference rang e due to change in reage nt. BUN/CREATININE 16.4 10-20 N RATIO (test code = BUN/CREA) TOTAL PROTEIN (test 6.4 gram/dL 6.4-8.2 N code = PROT) ALBUMIN (test code 3.0 g/dL 3.4-5.0 L = ALB) GLOBULIN (test code 3.4 gram/dL 2.7-4.2 N = GLOB) ALBUMIN/GLOBULIN 0.9 0.75-1.50 N RATIO (test code = A/G) CALCIUM (test code 8.1 mg/dL 8.5-10.1 L = CA) BILIRUBIN TOTAL 0.50 mg/dL 0.0-1.0 N (test code = BILT) SGOT/AST (test code 13 IUnit/L 15-37 L = AST) SGPT/ALT (test code < 7 IUnit/L 12-78 L = ALT) ALKALINE 92 IUnit/L 45-117 N Note change i n PHOSPHATASE TOTAL reference range due to (test code = ALKP) change in reagent. [id number] 02:19:00 Test Item Value Reference Range Interpretation Comments PHOSPHORUS (test code = PHOS) 3.2 mg/dL 2.5-4.9 N [id number] 02:19:00 Test Item Value Reference Range Interpretation Comments MAGNESIUM (test code = MAG) 1.9 mg/dL 1.8-2.4 N CBC W/AUTO [id number] 01:57:00 Test Item Value Reference Range Interpretation Comments WHITE BLOOD CELL (test code = 5.9 K/mm3 4.5-12.5 N WBC) RED BLOOD CELL (test code = 3.66 mill/mm3 3.7-5.2 L RBC) HEMOGLOBIN (test code = HGB) 11.2 gram/dL 11.5-15.5 L HEMATOCRIT (test code = HCT) 33.8 % 36.0-46.0 L MEAN CELL VOLUME (test code = 92.3 fL 80-98 N MCV) MEAN CELL HGB (test code = MCH) 30.6 picogram 27.0-33.0 N MEAN CELL HGB CONCETRATION 33.1 gram/dL 33.0-36.0 N (test code = MCHC) RED CELL DISTRIBUTION WIDTH 13.5 % 11.6-16.2 N (test code = RDW) RED CELL DISTRIBUTION WIDTH SD 45.5 fL 37.0-51.0 N (test code = RDW-SD) PLATELET COUNT (test code = 216 K/mm3 150-450 N PLT) MEAN PLATELET VOLUME (test code 10.7 fL 6.7-11.0 N = MPV) NEUTROPHIL % (test code = NT%) 45.7 % 39.0-69.0 N IMMATURE GRANULOCYTE % (test 0.3 % 0.0-5.0 N code = IG%) LYMPHOCYTE % (test code = LY%) 41.5 % 25.0-55.0 N MONOCYTE % (test code = MO%) 9.2 % 0.0-10.0 N EOSINOPHIL % (test code = EO%) 2.6 % 0.0-5.0 N BASOPHIL % (test code = BA%) 0.7 % 0.0-1.0 N NUCLEATED RBC % (test code = 0.0 % 0-0 N NRBC%) NEUTROPHIL # (test code = NT#) 2.69 K/mm3 1.8-7.7 N IMMATURE GRANULOCYTE # (test 0.02 x10 3/uL 0-0.03 N code = IG#) LYMPHOCYTE # (test code = LY#) 2.44 K/mm3 1.0-5.0 N MONOCYTE # (test code = MO#) 0.54 K/mm3 0-0.8 N EOSINOPHIL # (test code = EO#) 0.15 K/mm3 0.0-0.5 N BASOPHIL # (test code = BA#) 0.04 K/mm3 0.0-0.2 N NUCLEATED RBC # (test code = 0.00 K/mm3 0.0-0.1 N NRBC#) [id number] 20:58:00 Test Item Value Reference Range Interpretation Comments GLUBED (test code = 188 mg/dL 74-106 H Performe d by certified GLUBED) wringer machine operator at [facility]2022-11-25 16:11:00 Test Item Value Reference Range Interpretation Comments GLUBED (test code = 199 mg/dL 74-106 H Performe d by certified GLUBED) wringer machine operator at [facility] [id number] 11:25:00 Test Item Value Reference Range Interpretation Comments GLUBED (test code = 137 mg/dL 74-106 H Performe d by certified GLUBED) wringer machine operator at [facility] - XR CHEST 1 [id number] 07:47:00 [facility])Name: ARMEN LOPEZ : 1950 Sex: F FAX: Kari Groves MD [phone] Meta: St: ADM FAX: Sophie Torres Name: ARMEN LOPEZ [facility] : 1950 Age/S: 71/F [address] [facility] Unit #: [id number] Loc: V.[address] [address] Phys: Sophie Torres [employer]END[employer] Acct: [id number] Dis Date: Status: ADM IN PHONE #: [phone] Exam Date: 04/28/2022 0601 FAX #: [phone] Reason: TO EVAL LUNGS EXAMS: CPT CODE: [id number] XR CHEST 1 V [id number] EXAM: - XR CHEST 1 V DATE: 04/28/2022 5:26 AM. INDICATION: TO EVAL LUNGS . COMPARISON: None available. TECHNIQUE: Frontal chest. FINDINGS: Lines, Tubes and Hardware: None. Lungs and Pleura: No focal consolidation, pleural effusion, or pneumothorax is identified. Haziness within the lung base on the left. Heart and Mediastinum: The heart size is normal. There are faint atherosclerotic calcifications of the aortic arch. Pulmonary vascularity is unremarkable. Bones: No acute skeletal abnormality is identified. There are degenerative changes of the thoracic spine. Upper abdomen: Within normal limits IMPRESSION: Lung base atelectasis at 0747 Reported and signed by: Tamir Gibbons M.D. CC: Kari Groves MD; Sophie Torres NP Technologist: Jt LAWRENCE(Dre) Trnscrd Date/Time/By: 04/28/2022 (0747) : By: [email or web address] Orig Print D/T: S: 04/28/2022 (0750) PAGE 1 Signed [id number] 07:24:00 Test Item Value Reference Range Interpretation Comments GLUBED (test code = 230 mg/dL 74-106 H Performe d by certified GLUBED) wringer machine operator at [facility] POC CALCIUM [id number] 05:59:00 Test Item Value Reference Range Interpretation Comments POC CALCIUM IONIZED (test code = 1.19 mmol/L 1.12-1.32 N CAIP) CALCIUM [id number] 05:33:00 Test Item Value Reference Range Interpretation Comments CALCIUM IONIZED (test code = DEMETRIA) mmol/L 1.12-1.32 [id number] 05:33:00 Test Item Value Reference Range Interpretation Comments GLYCOSYLATED HEMOGLOBIN 8.4 % HbA1 [facility] DIAGNOSIS: (HA1C) (test code = HbA1C GLYHGB) (%) ----- ----- Diab etic >6.4Prediabetes 5.7 - 6.4Normal <5. 7 ESTIMATED AVERAGE 194 MG/DL GLUCOSE (test code = EAG) COMPREHENSIVE METABOLIC [id number] 05:20:00 Test Item Value Reference Range Interpretation Comments SODIUM (test code = 138 mmol/L 136-145 N NA) POTASSIUM (test 4.5 mmol/L 3.5-5.1 N code = K) CHLORIDE (test code 106.0 mmol/L 98-107 N = CL) CARBON DIOXIDE 19.0 mmol/L 21-32 L (test code = CO2) ANION GAP (test 17.5 10-20 N code = GAP) GLUCOSE (test code 334 mg/dL 74-106 H = GLU) BLOOD UREA NITROGEN 38 mg/dL 7-18 H (test code = BUN) GLOMERULAR 34 mL/min See_Comment The Glomerular FILTRATION RATE Filtration R ate is a (test code = GFR) calculated parameterbased on serum Creatinin e, patient age and sex. GFR valuesless than 60 mL/min/1.73 squ are meters are jordi cative ofChronic Kidne y Disease. Values less than 15 mL/min/1.73squa re meters indicate Kidney failure. The calculation for GFR is based on the CK D-EPI (2020) calculat ion. This formulais race indifferent and is the recommended for liseth for GFRby the N ational Kidney Foundati on for Adults.The GFR will not calculate i f the sex is unknown or if thepatient's ag e is <18 years. [Aut omated message] The sy stem which generated this result transmit ellie reference range : >=60. The reference r jihan was not used to interpret this result as normal/abnor mal. CREATININE (test 1.60 mg/dL 0.55-1.02 H Note rivera ge in code = CREAT) reference rang e due to change in reage nt. BUN/CREATININE 24.2 10-20 H RATIO (test code = BUN/CREA) TOTAL PROTEIN (test 6.6 gram/dL 6.4-8.2 N code = PROT) ALBUMIN (test code 3.1 g/dL 3.4-5.0 L = ALB) GLOBULIN (test code 3.5 gram/dL 2.7-4.2 N = GLOB) ALBUMIN/GLOBULIN 0.9 0.75-1.50 N RATIO (test code = A/G) CALCIUM (test code 8.4 mg/dL 8.5-10.1 L = CA) BILIRUBIN TOTAL 0.20 mg/dL 0.0-1.0 N (test code = BILT) SGOT/AST (test code 11 IUnit/L 15-37 L = AST) SGPT/ALT (test code 8 IUnit/L 12-78 L = ALT) ALKALINE 102 IUnit/L 45-117 N Note change i n PHOSPHATASE TOTAL reference range due to (test code = ALKP) change in reagent. [id number] 05:20:00 Test Item Value Reference Range Interpretation Comments PHOSPHORUS (test code = PHOS) 3.7 mg/dL 2.5-4.9 N [id number] 05:20:00 Test Item Value Reference Range Interpretation Comments MAGNESIUM (test code = MAG) 1.7 mg/dL 1.8-2.4 L CBC W/AUTO [id number] 05:10:00 Test Item Value Reference Range Interpretation Comments WHITE BLOOD CELL (test code = 8.4 K/mm3 4.5-12.5 N WBC) RED BLOOD CELL (test code = 3.81 mill/mm3 3.7-5.2 N RBC) HEMOGLOBIN (test code = HGB) 11.4 gram/dL 11.5-15.5 L HEMATOCRIT (test code = HCT) 34.9 % 36.0-46.0 L MEAN CELL VOLUME (test code = 91.6 fL 80-98 N MCV) MEAN CELL HGB (test code = MCH) 29.9 picogram 27.0-33.0 N MEAN CELL HGB CONCETRATION 32.7 gram/dL 33.0-36.0 L (test code = MCHC) RED CELL DISTRIBUTION WIDTH 13.3 % 11.6-16.2 N (test code = RDW) RED CELL DISTRIBUTION WIDTH SD 45.1 fL 37.0-51.0 N (test code = RDW-SD) PLATELET COUNT (test code = 224 K/mm3 150-450 N PLT) MEAN PLATELET VOLUME (test code 11.3 fL 6.7-11.0 H = MPV) NEUTROPHIL % (test code = NT%) 66.4 % 39.0-69.0 N IMMATURE GRANULOCYTE % (test 0.4 % 0.0-5.0 N code = IG%) LYMPHOCYTE % (test code = LY%) 25.4 % 25.0-55.0 N MONOCYTE % (test code = MO%) 6.8 % 0.0-10.0 N EOSINOPHIL % (test code = EO%) 0.6 % 0.0-5.0 N BASOPHIL % (test code = BA%) 0.4 % 0.0-1.0 N NUCLEATED RBC % (test code = 0.0 % 0-0 N NRBC%) NEUTROPHIL # (test code = NT#) 5.56 K/mm3 1.8-7.7 N IMMATURE GRANULOCYTE # (test 0.03 x10 3/uL 0-0.03 N code = IG#) LYMPHOCYTE # (test code = LY#) 2.13 K/mm3 1.0-5.0 N MONOCYTE # (test code = MO#) 0.57 K/mm3 0-0.8 N EOSINOPHIL # (test code = EO#) 0.05 K/mm3 0.0-0.5 N BASOPHIL # (test code = BA#) 0.03 K/mm3 0.0-0.2 N NUCLEATED RBC # (test code = 0.00 K/mm3 0.0-0.1 N NRBC#) HEPATIC FUNCTION [id number] 23:51:00 Test Item Value Reference Range Interpretation Comments TOTAL PROTEIN (test 7.4 gram/dL 6.4-8.2 N code = PROT) ALBUMIN (test code = 3.4 g/dL 3.4-5.0 N ALB) GLOBULIN (test code = 4.0 gram/dL 2.7-4.2 N GLOB) ALBUMIN/GLOBULIN RATIO 0.8 0.75-1.50 N (test code = A/G) BILIRUBIN TOTAL (test 0.30 mg/dL 0.0-1.0 N code = BILT) BILIRUBIN DIRECT (test < 0.10 mg/dL 0.0-0.20 N code = BILD) SGOT/AST (test code = 17 IUnit/L 15-37 N AST) SGPT/ALT (test code = 9 IUnit/L 12-78 L ALT) ALKALINE PHOSPHATASE 103 IUnit/L 45-117 N Note change in TOTAL (test code = reference range due ALKP) to change in reagent. [id number] 23:51:00 Test Item Value Reference Range Interpretation Comments LIPASE (test code = LIP) 79 U/L 12.00-57.00 H [id number] 23:51:00 Test Item Value Reference Range Interpretation Comments MAGNESIUM (test code = MAG) 1.8 mg/dL 1.8-2.4 N [id number] 23:51:00 Test Item Value Reference Range Interpretation Comments TROPONIN-HS (test <4.0 pg/mL 0-45 N CAUTION: U nits of the code = TROPI) current test m ethodology (pg/mL)differ f rom the prior test meth odology (ng/mL) by a fa ctorof 1000. BASIC METABOLIC [id number] 23:51:00 Test Item Value Reference Range Interpretation Comments SODIUM (test code = 136 mmol/L 136-145 N NA) POTASSIUM (test 4.6 mmol/L 3.5-5.1 N code = K) CHLORIDE (test code 105.0 mmol/L 98-107 N = CL) CARBON DIOXIDE 17.0 mmol/L 21-32 L (test code = CO2) ANION GAP (test 18.6 10-20 N code = GAP) GLUCOSE (test code 298 mg/dL 74-106 H = GLU) BLOOD UREA NITROGEN 37 mg/dL 7-18 H (test code = BUN) GLOMERULAR 37 mL/min See_Comment The Glomerular FILTRATION RATE Filtration R ate is a (test code = GFR) calculated parameterbased on serum Creatinin e, patient age and sex. GFR valuesless than 60 mL/min/1.73 squ are meters are jordi cative ofChronic Kidne y Disease. Values less than 15 mL/min/1.73squa re meters indicate Kidney failure. The calculation for GFR is based on the CK D-EPI (2020) calculat ion. This formulais race indifferent and is the recommended for liseth for GFRby the N ational Kidney Foundati on for Adults.The GFR will not calculate i f the sex is unknown or if thepatient's ag e is <18 years. [Aut omated message] The sy stem which generated this result transmit ellie reference range : >=60. The reference r jiahn was not used to interpret this result as normal/abnor mal. CREATININE (test 1.50 mg/dL 0.55-1.02 H Note rivera ge in code = CREAT) reference rang e due to change in reage nt. BUN/CREATININE 24.8 10-20 H RATIO (test code = BUN/CREA) CALCIUM (test code 9.0 mg/dL 8.5-10.1 N = CA) PROTHROMBIN [id number] 23:43:00 Test Item Value Reference Range Interpretation Comments PROTHROMBIN TIME 12.0 seconds 9.0-14.0 N PATIENT (test code = PTP) INTERNATIONAL NORMAL 1.1 0.8-1.2 N The the rapeutic range RATIO (test code = for oral INR) anticoagulant t herapy formost indicat ions is an internati onal normalized rati o (INR)of between 2.0 and 3.0. The recommended therapeutic INR range for various cli nical situations is l isted below: Clinical Situat ion INR range Pulmonary embol ism treatment (2.0-3.0)Venous thrombosis treatmentVenous thrombosis prophylaxis (hi gh risk surgery)Prevent ion of systemic emboli sm from: Acute myocardial infa rction Valvular heart disease Atrial fibrillation Mechanical pros thetic heart valves (2.5-3.5) IS PATIENT ON ANTICOAGULANTS? NTHROMBOPLASTIN TIME [id number] 23:43:00 Test Item Value Reference Range Interpretation Comments THROMBOPLASTIN TIME PARTIAL 22.4 seconds 23.0-37.0 L (test code = PTT) IS PATIENT ON ANTICOAGULANTS? NCBC W/O [id number] 23:42:00 Test Item Value Reference Range Interpretation Comments WHITE BLOOD CELL (test code = 7.6 K/mm3 4.5-12.5 N WBC) RED BLOOD CELL (test code = 4.08 mill/mm3 3.7-5.2 N RBC) HEMOGLOBIN (test code = HGB) 12.4 gram/dL 11.5-15.5 N HEMATOCRIT (test code = HCT) 37.9 % 36.0-46.0 N MEAN CELL VOLUME (test code = 92.9 fL 80-98 N MCV) MEAN CELL HGB (test code = MCH) 30.4 picogram 27.0-33.0 N MEAN CELL HGB CONCETRATION 32.7 gram/dL 33.0-36.0 L (test code = MCHC) RED CELL DISTRIBUTION WIDTH 13.3 % 11.6-16.2 N (test code = RDW) PLATELET COUNT (test code = 230 K/mm3 150-450 N PLT) MEAN PLATELET VOLUME (test code 10.8 fL 6.7-11.0 N = MPV) - XR CHEST 1 [id number] 23:30:00 [facility] 1950 Sex: F FAX: Usha Ramachandran MD [phone] Meta: B St: ADM Name: ARMEN LOPEZ [facility] : 1950 Age/S:71/F [address] [facility] Unit #: [id number] Loc: [place] [address] Phys: Usha Ramachandran MD Acct: [id number] Dis Date: Status: ADM IN PHONE #: [phone] Exam Date: 04/27/20222310 FAX #: [phone] Reason: CHEST PAIN EXAMS: CPT CODE: [id number] XR CHEST 1 V [id number] Dictation location: H3 Chest x-ray exam, AP frontal projection, one view, 04/27/22 CLINICAL HISTORY: Chest pain Comparison exam: None of the chest available Exam is somewhat limited given shallow degree of inspiration and overlying objects. Given technical factors, heart, lungs, and mediastinal structures are unremarkable. Do not see a definite acute osseous finding. No definite findings for pneumonia or CHF. No abnormal air collection. IMPRESSION: No acute finding given technical factors at 2330 Reported and signed by: Maryam Rehman M.D. CC: Usha Ramachandran MD Technologist: Jordan Paiz RT(R) Trnscrd Date/Time/By: 04/27/2022 (2329) : By: [email or web address] Orig Print D/T: S: 04/27/2022 (4) PAGE 1 Signed ReportCOMPREHENSIVE METABOLIC [id number] 06:08:16 Test Item Value Reference Range Interpretation Comments GLUCOSE (test code = 205 MG/DL 70-99 H 2216) BUN (test code = 23 MG/DL 8-23 2207) CREATININE (test 1.67 MG/DL 0.60-1.30 H code = 2214) eGFR (2020 CKD-EPI) 32 ML/MIN/1.73 >60 L (test code = 06138) CALC BUN/CREAT (test 14 RATIO 6-28 code = 2235) SODIUM (test code = 143 MEQ/L 044-486 2995) POTASSIUM (test code 4.2 MEQ/L 3.5-5.4 = 222) CHLORIDE (test code 107 MEQ/L 95-107 = 2215) CARBON DIOXIDE (test 22 MEQ/L 19-31 code = 2206) CALCIUM (test code = 8.9 MG/DL 8.5-10.5 2208) PROTEIN, TOTAL (test 7.4 G/DL 6.1-8.3 code = 222) ALBUMIN (test code = 4.1 G/DL 3.5-5.2 2200) CALC GLOBULIN (test 3.3 G/DL 1.9-3.7 code = 2240) CALC A/G RATIO (test 1.2 RATIO 1.0-2.6 code = 2234) BILIRUBIN, TOTAL 0.3 MG/DL See_Comment [Automated message] (test code = 2206) The syste m which generated this result transmit ellie reference range : <=1.2. The refe rence range was not u sed to interpret th is result as normal/abnormal . ALKALINE PHOSPHATASE 57 U/L 40-142 (test code = 2203) AST (test code = 38 U/L 9-40 2217) ALT (test code = 21 U/L 5-40 2218) LIPID [id number] 06:08:16 Test Item Value Reference Range Interpretation [...] MOREINFORMATION , SEE CLIENT ANNOUNCE MENT AT [email or web address] RISK RATIO LDL/HDL 1.49 RATIO <3.22 UNLESS O THERWISE (test code = 2238) INDICATED , ALL TESTING PERFORMED [facility], [facility]. [address] [place] [id number] [place] [address] DIRECTOR: Janessa VILLAGRAN NUMBER [id number] CAP ACCREDITATION N O. [id number] HEMOGLOBIN [id number] 04:41:39 Test Item Value Reference Range Interpretation Comments HEMOGLOBIN A1c (test 8.3 % 4.2-5.6 H AMERIC AN DIABETES code = 02060) ASSOCIATION IDELIN[employer] FOR HGB A1C: PREDIABETES/INC REASED [...] LABORATORY C ONSULTATION. CBC W/AUTO DIFF WITH [id number] 03:44:15 Test Item Value Reference Range Interpretation [...] RBCS 0.00 K/UL 0.00-0.11 (test code = 18224) COMPREHENSIVE METABOLIC [id number] 00:00:00 Test Item Value Reference Range Interpretation Comments GLUCOSE (test code = 2217) 205 MG/DL BUN (test code = 2208) 23 MG/DL CREATININE (test code = 2214) 1.67 MG/DL eGFR (2020 CKD-EPI) (test code 32 ML/MIN/1.73 = 55336) CALC BUN/CREAT (test code = 14 RATIO [...] (test code = 2219) 21 U/L LIPID [id number] 00:00:00 Test Item Value Reference Range Interpretation Comments CHOLESTEROL (test code = 2210) 160 MG/DL TRIGLYCERIDES (test code = 2232) 129 MG/DL HDL CHOLESTEROL (test code = 2220) 55 MG/DL CALC LDL CHOL (test code = 2237) 82 MG/DL RISK RATIO LDL/HDL (test code = 1.49 RATIO 2238) LIPID [id number] 00:00:00 Test Item Value Reference Range Interpretation Comments CHOLESTEROL (test code = 2210) 160 MG/DL TRIGLYCERIDES (test code = 2232) 129 MG/DL HDL CHOLESTEROL (test code = 2220) 55 MG/DL CALC LDL CHOL (test code = 2237) 82 MG/DL RISK RATIO LDL/HDL (test code = 1.49 RATIO 2238) HEMOGLOBIN [id number] 00:00:00 Test Item Value Reference Range Interpretation Comments HEMOGLOBIN A1c (test code = 12951) 8.3 % HEMOGLOBIN [id number] 00:00:00 Test Item Value Reference Range Interpretation Comments HEMOGLOBIN A1c (test code = 72561) 8.3 % HEMOGLOBIN [id number] 00:00:00 Test Item Value Reference Range Interpretation Comments HEMOGLOBIN A1c (test code = 98642) 8.3 % CBC W/AUTO [id number] 00:00:00 Test Item Value Reference Range Interpretation [...] NUCLEATED RBCS (test code = 0.00 K/UL 45769) CBC W/AUTO [id number] 00:00:00 Test Item Value Reference Range Interpretation [...] NUCLEATED RBCS (test code = 0.00 K/UL 21311) CBC W/AUTO [id number] 00:00:00 Test Item Value Reference Range Interpretation [...] NUCLEATED RBCS (test code = 0.00 K/UL 05196) COMPREHENSIVE METABOLIC [id number] 00:00:00 Test Item Value Reference Range Interpretation Comments GLUCOSE (test code = 2217) 205 MG/DL BUN (test code = 2208) 23 MG/DL CREATININE (test code = 2214) 1.67 MG/DL eGFR (2020 CKD-EPI) (test code 32 ML/MIN/1.73 = 26921) CALC BUN/CREAT (test code = 14 RATIO [...] code = 2219) 21 U/L COMPREHENSIVE METABOLIC [id number] 00:00:00 Test Item Value Reference Range Interpretation Comments GLUCOSE (test code = 2217) 205 MG/DL BUN (test code = 2208) 23 MG/DL CREATININE (test code = 2214) 1.67 MG/DL eGFR (2020 CKD-EPI) (test code 32 ML/MIN/1.73 = 33860) CALC BUN/CREAT (test code = 14 RATIO [...] (test code = 2219) 21 U/L LIPID [id number] 00:00:00 Test Item Value Reference Range Interpretation Comments CHOLESTEROL (test code = 2210) 160 MG/DL TRIGLYCERIDES (test code = 2232) 129 MG/DL HDL CHOLESTEROL (test code = 2220) 55 MG/DL CALC LDL CHOL (test code = 2237) 82 MG/DL RISK RATIO LDL/HDL (test code = 1.49 RATIO 2238) LIPID [id number] 00:00:00 Test Item Value Reference Range Interpretation Comments CHOLESTEROL (test code = 2210) 160 MG/DL TRIGLYCERIDES (test code = 2232) 129 MG/DL HDL CHOLESTEROL (test code = 2220) 55 MG/DL CALC LDL CHOL (test code = 2237) 82 MG/DL RISK RATIO LDL/HDL (test code = 1.49 RATIO 2238) HEMOGLOBIN [id number] 00:00:00 Test Item Value Reference Range Interpretation Comments HEMOGLOBIN A1c (test code = 81936) 8.3 % HEMOGLOBIN [id number] 00:00:00 Test Item Value Reference Range Interpretation Comments HEMOGLOBIN A1c (test code = 52579) 8.3 % HEMOGLOBIN [id number] 00:00:00 Test Item Value Reference Range Interpretation Comments HEMOGLOBIN A1c (test code = 36264) 8.3 % CBC W/AUTO [id number] 00:00:00 Test Item Value Reference Range Interpretation [...] NUCLEATED RBCS (test code = 0.00 K/UL 82636) CBC W/AUTO [id number] 00:00:00 Test Item Value Reference Range Interpretation [...] NUCLEATED RBCS (test code = 0.00 K/UL 03164) CBC W/AUTO [id number] 00:00:00 Test Item Value Reference Range Interpretation [...] NUCLEATED RBCS (test code = 0.00 K/UL 46620) COMPREHENSIVE METABOLIC [id number] 00:00:00 Test Item Value Reference Range Interpretation Comments GLUCOSE (test code = 2217) 205 MG/DL BUN (test code = 2208) 23 MG/DL CREATININE (test code = 2214) 1.67 MG/DL eGFR (2020 CKD-EPI) (test code 32 ML/MIN/1.73 = 29633) CALC BUN/CREAT (test code = 14 RATIO [...] code = 2219) 21 U/L COMPREHENSIVE METABOLIC [id number] 00:00:00 Test Item Value Reference Range Interpretation Comments GLUCOSE (test code = 2217) 205 MG/DL BUN (test code = 2208) 23 MG/DL CREATININE (test code = 2214) 1.67 MG/DL eGFR (2020 CKD-EPI) (test code 32 ML/MIN/1.73 = 14481) CALC BUN/CREAT (test code = 14 RATIO [...] BILIRUBIN, TOTAL (test code = 0.3 MG/DL 7) ALKALINE PHOSPHATASE (test 57 U/L code = 2204) AST (test code = 2218) 38 U/L ALT (test code = 2219) 21 U/L LIPID [id number] 00:00:00 Test Item Value Reference Range Interpretation Comments CHOLESTEROL (test code = 2210) 160 MG/DL TRIGLYCERIDES (test code = 2232) 129 MG/DL HDL CHOLESTEROL (test code = 2220) 55 MG/DL CALC LDL CHOL (test code = 2237) 82 MG/DL RISK RATIO LDL/HDL (test code = 1.49 RATIO 2238) LIPID [id number] 00:00:00 Test Item Value Reference Range Interpretation Comments CHOLESTEROL (test code = 2210) 160 MG/DL TRIGLYCERIDES (test code = 2232) 129 MG/DL HDL CHOLESTEROL (test code = 2220) 55 MG/DL CALC LDL CHOL (test code = 2237) 82 MG/DL RISK RATIO LDL/HDL (test code = 1.49 RATIO 2238) HEMOGLOBIN [id number] 00:00:00 Test Item Value Reference Range Interpretation Comments HEMOGLOBIN A1c (test code = 02335) 8.3 % HEMOGLOBIN [id number] 00:00:00 Test Item Value Reference Range Interpretation Comments HEMOGLOBIN A1c (test code = 26334) 8.3 % HEMOGLOBIN [id number] 00:00:00 Test Item Value Reference Range Interpretation Comments HEMOGLOBIN A1c (test code = 57031) 8.3 % CBC W/AUTO [id number] 00:00:00 Test Item Value Reference Range Interpretation [...] NUCLEATED RBCS (test code = 0.00 K/UL 78740) CBC W/AUTO [id number] 00:00:00 Test Item Value Reference Range Interpretation [...] NUCLEATED RBCS (test code = 0.00 K/UL 50038) CBC W/AUTO [id number] 00:00:00 Test Item Value Reference Range Interpretation [...] NUCLEATED RBCS (test code = 0.00 K/UL 94192) COMPREHENSIVE METABOLIC [id number] 00:00:00 Test Item Value Reference Range Interpretation Comments GLUCOSE (test code = 2217) 205 MG/DL BUN (test code = 2208) 23 MG/DL CREATININE (test code = 2214) 1.67 MG/DL eGFR (2020 CKD-EPI) (test code 32 ML/MIN/1.73 = 00797) CALC BUN/CREAT (test code = 14 RATIO [...] ALT (test code = 2219) 21 U/L CULTURE, [id number] 14:31:20SPECIMEN NUMBER: [id number] CULTURE, URINE SPECIMEN NUMBER: [id number] SPECIMEN COMMENT: URINE SOURCE:URINE REPORT STATUS: FINAL [...] MCG/ML. UNLESS OTHERWISE INDICATED, ALL TESTING PERFORMED [facility] [address] [place] [address] HAND GRINDER: KEN NEWMAN M.D. CLIA NUMBER [id number] [facility] [place]. [id number], [id number] 00:00:00 Test Item Value Reference Range Interpretation Comments CULTURE, URINE (test SPECIMEN NUMBER: code = 10972) [id number] CULTURE, [id number] 00:00:00 Test Item Value Reference Range Interpretation Comments CULTURE, URINE (test SPECIMEN NUMBER: code = 98706) [id number] CULTURE, [id number] 00:00:00 Test Item Value Reference Range Interpretation Comments CULTURE, URINE (test SPECIMEN NUMBER: code = 41329) [id number] CULTURE, [id number] 00:00:00 Test Item Value Reference Range Interpretation Comments CULTURE, URINE (test SPECIMEN NUMBER: code = 41074) [id number] CULTURE, [id number] 00:00:00 Test Item Value Reference Range Interpretation Comments CULTURE, URINE (test SPECIMEN NUMBER: code = 06753) [id number] CULTURE, [id number] 00:00:00 Test Item Value Reference Range Interpretation Comments CULTURE, URINE (test SPECIMEN NUMBER: code = 24592) [id number] OCCULT BLD,FECAL,IMMUNOASSAY [id number] 16:34:09 Test Item Value Reference Range Interpretation Comments OCCULT BLD, FECAL NEGATIVE NEGATIVE Note: Danii moreira received (test code = 32409) in an ex pired collection system. Results and details of anal ysis reviewed by [facility] IRIS MASSEY M.D. UNLESS OTHERWISE INDIC ATED, ALL TESTING PERFORM [facility], [facility]. [address] [place] [address] LABORATORY DIRE CTOR: Rojelio VILLAGRAN CLIA NUMBER [id number] CAP ACCREDITATION N O. [id number] OCCULT BLD,FECAL,IMMUNOASSAY [id number] 00:00:00 Test Item Value Reference Range Interpretation Comments OCCULT BLD, FECAL (test code = NEGATIVE 73931) OCCULT BLD,FECAL,IMMUNOASSAY [id number] 00:00:00 Test Item Value Reference Range Interpretation Comments OCCULT BLD, FECAL (test code = NEGATIVE 28323) OCCULT BLD,FECAL,IMMUNOASSAY [id number] 00:00:00 Test Item Value Reference Range Interpretation Comments OCCULT BLD, FECAL (test code = NEGATIVE 08114) OCCULT BLD,FECAL,IMMUNOASSAY [id number] 00:00:00 Test Item Value Reference Range Interpretation Comments OCCULT BLD, FECAL (test code = NEGATIVE 19256) OCCULT BLD,FECAL,IMMUNOASSAY [id number] 00:00:00 Test Item Value Reference Range Interpretation Comments OCCULT BLD, FECAL (test code = NEGATIVE 92291) OCCULT BLD,FECAL,IMMUNOASSAY [id number] 00:00:00 Test Item Value Reference Range Interpretation Comments OCCULT BLD, FECAL (test code = NEGATIVE 69616) OCCULT BLD,FECAL,IMMUNOASSAY [id number] 00:00:00 Test Item Value Reference Range Interpretation Comments OCCULT BLD, FECAL (test code = NEGATIVE 05791) HEMOGLOBIN [id number] 04:08:08 Test Item Value Reference Range Interpretation Comments HEMOGLOBIN A1c (test 8.3 % 4.2-5.6 H AMERIC AN DIABETES code = 78243) ASSOCIATION IDELINES FOR HGB A1C: PREDIABETES/INC REASED [...] OTHERWIS E INDICATED, ALL TESTING PER FORMED [facility] [employer], [facility]. [address] [address] LABORATORY DIRE CTOR: KEN NEWMAN M.D. CLIA NUMBER [id number] [facility] [place]. [id number] HEMOGLOBIN [id number] 00:00:00 Test Item Value Reference Range Interpretation Comments HEMOGLOBIN A1c (test code = 84638) 8.3 % HEMOGLOBIN [id number] 00:00:00 Test Item Value Reference Range Interpretation Comments HEMOGLOBIN A1c (test code = 37373) 8.3 % HEMOGLOBIN [id number] 00:00:00 Test Item Value Reference Range Interpretation Comments HEMOGLOBIN A1c (test code = 51143) 8.3 % HEMOGLOBIN [id number] 00:00:00 Test Item Value Reference Range Interpretation Comments HEMOGLOBIN A1c (test code = 08516) 8.3 % HEMOGLOBIN [id number] 00:00:00 Test Item Value Reference Range Interpretation Comments HEMOGLOBIN A1c (test code = 73638) 8.3 % HEMOGLOBIN [id number] 00:00:00 Test Item Value Reference Range Interpretation Comments HEMOGLOBIN A1c (test code = 37638) 8.3 % HEMOGLOBIN [id number] 00:00:00 Test Item Value Reference Range Interpretation Comments HEMOGLOBIN A1c (test code = 75159) 8.3 % HEMOGLOBIN [id number] 00:00:00 Test Item Value Reference Range Interpretation Comments HEMOGLOBIN A1c (test code = 36291) 8.3 % HEMOGLOBIN [id number] 00:00:00 Test Item Value Reference Range Interpretation Comments HEMOGLOBIN A1c (test code = 55165) 8.3 % HEMOGLOBIN [id number] 00:00:00 Test Item Value Reference Range Interpretation Comments HEMOGLOBIN A1c (test code = 40814) 8.3 % HEMOGLOBIN [id number] 00:00:00 Test Item Value Reference Range Interpretation Comments HEMOGLOBIN A1c (test code = 14184) 8.3 % HEMOGLOBIN [id number] 00:00:00 Test Item Value Reference Range Interpretation Comments HEMOGLOBIN A1c (test code = 04862) 8.3 % HEMOGLOBIN [id number] 00:00:00 Test Item Value Reference Range Interpretation Comments HEMOGLOBIN A1c (test code = 64608) 8.3 % CULTURE, [id number] 12:05:43SPECIMEN NUMBER: [id number] CULTURE, URINE SPECIMEN NUMBER: [id number] SPECIMEN COMMENT: URINE SOURCE:URINE REPORT STATUS: FINAL ISOLATE NUMBER 1: ORGANISM: 09/23/2021 >100,000 CFU/ML GRAM NEGATIVE BA CILLI IDENTIFICATION: 09/24/2021 ESCHERICHIA COLI E. COLI AMOXICILLIN/CA SENSITIVE <=8/4AMPICILLIN RESISTANT >16CEFAZOLIN SENSITIVE <=2CEFTRIAXONE SENSITIVE <=1CIPROFLOXACIN SENSITIVE <=1LEVOFLOXACIN SENSITIVE <=2NITROFURANTOIN SENSITIVE <=32PIP/TAZOBAC SENSITIVE <=16TETRACYCLINE RESISTANT >8TOBRAMYCIN SENSITIVE <=4TRIMETH/SULFA RESISTANT >2/38 NOTE: NUMBERS DISPLAYED REPRESENT MINIMUM INHIBITORY CONCENTRATION (MARTA) WHICH IS EXPRESSED IN MCG/ML. CULTURE, [id number] 00:00:00 Test Item Value Reference Range Interpretation Comments CULTURE, URINE (test SPECIMEN NUMBER: code = 37094) [id number] CULTURE, [id number] 00:00:00 Test Item Value Reference Range Interpretation Comments CULTURE, URINE (test SPECIMEN NUMBER: code = 40431) [id number] CULTURE, [id number] 00:00:00 Test Item Value Reference Range Interpretation Comments CULTURE, URINE (test SPECIMEN NUMBER: code = 53156) [id number] CULTURE, [id number] 00:00:00 Test Item Value Reference Range Interpretation Comments CULTURE, URINE (test SPECIMEN NUMBER: code = 82532) [id number] CULTURE, [id number] 00:00:00 Test Item Value Reference Range Interpretation Comments CULTURE, URINE (test SPECIMEN NUMBER: code = 82526) [id number] CULTURE, [id number] 00:00:00 Test Item Value Reference Range Interpretation Comments CULTURE, URINE (test SPECIMEN NUMBER: code = 31426) [id number] CULTURE, [id number] 00:00:00 Test Item Value Reference Range Interpretation Comments CULTURE, URINE (test SPECIMEN NUMBER: code = 55275) [id number] CULTURE, [id number] 00:00:00 Test Item Value Reference Range Interpretation Comments CULTURE, URINE (test SPECIMEN NUMBER: code = 48624) [id number] TSH, THIRD [id number] 03:43:01 Test Item Value Reference Range Interpretation Comments TSH, THIRD 2.470 UIU/ML 0.400-4.100 UNLESS OTHERWI SE GENERATION (test INDICATED, ALL TESTING code = 2821) PERFORMED [facility], [address] [place] [address] DIRECTOR: KEN NEWMAN M.D. CLIA NUMBER [id number] CAP ACCREDITATION N O. [id number] CBC W/AUTO DIFF WITH [id number] 03:14:58 Test Item Value Reference Range Interpretation [...] RBCS 0.00 K/UL 0.00-0.11 (test code = 29912) COMPREHENSIVE METABOLIC [id number] 02:59:52 Test Item Value Reference Range Interpretation Comments GLUCOSE (test code = 188 MG/DL 70-99 H 2216) BUN (test code = 40 MG/DL 8-23 H 2207) CREATININE (test 1.36 MG/DL 0.60-1.30 H code = 2214) eGFR (2020 CKD-EPI) 41 ML/MIN/1.73 >60 L (test code = 77025) CALC BUN/CREAT (test 29 RATIO 6-28 H code = 2235) SODIUM (test code = 145 MEQ/L 178-968 2298) POTASSIUM (test code 5.2 MEQ/L 3.5-5.4 = 2227) CHLORIDE (test code 109 MEQ/L 95-107 H = 2214) CARBON DIOXIDE (test 21 MEQ/L 19-31 code = 220) CALCIUM (test code = 9.7 MG/DL 8.5-10.5 2208) PROTEIN, TOTAL (test 7.6 G/DL 6.1-8.3 code = 2229) ALBUMIN (test code = 4.4 G/DL 3.5-5.2 [...] PHOSPHATASE 84 U/L 40-142 (test code = 2204) AST (test code = 15 U/L 9-40 2217) ALT (test code = 14 U/L 5-40 2218) COMPREHENSIVE METABOLIC [id number] 00:00:00 Test Item Value Reference Range Interpretation Comments GLUCOSE (test code = 2217) 188 MG/DL BUN (test code = 2208) 40 MG/DL CREATININE (test code = 2214) 1.36 MG/DL eGFR (2020 CKD-EPI) (test code 41 ML/MIN/1.73 = 05639) CALC BUN/CREAT (test code = 29 RATIO [...] code = 2219) 14 U/L COMPREHENSIVE METABOLIC [id number] 00:00:00 Test Item Value Reference Range Interpretation Comments GLUCOSE (test code = 2217) 188 MG/DL BUN (test code = 2208) 40 MG/DL CREATININE (test code = 2214) 1.36 MG/DL eGFR (2020 CKD-EPI) (test code 41 ML/MIN/1.73 = 08909) CALC BUN/CREAT (test code = 29 RATIO 2234) SODIUM (test code = 2231) 145 MEQ/L [...] ALKALINE PHOSPHATASE (test 84 U/L code = 220) AST (test code = 2218) 15 U/L ALT (test code = 2219) 14 U/L [id number] 00:00:00 Test Item Value Reference Range Interpretation Comments TSH, THIRD GENERATION (test code 2.470 UIU/ML = 2821) [id number] 00:00:00 Test Item Value Reference Range Interpretation Comments TSH, THIRD GENERATION (test code 2.470 UIU/ML = 2821) [id number] 00:00:00 Test Item Value Reference Range Interpretation Comments TSH, THIRD GENERATION (test code 2.470 UIU/ML = 2821) CBC W/AUTO [id number] 00:00:00 Test Item Value Reference Range Interpretation [...] NUCLEATED RBCS (test code = 0.00 K/UL 44471) CBC W/AUTO [id number] 00:00:00 Test Item Value Reference Range Interpretation [...] NUCLEATED RBCS (test code = 0.00 K/UL 68033) COMPREHENSIVE METABOLIC [id number] 00:00:00 Test Item Value Reference Range Interpretation Comments GLUCOSE (test code = 2217) 188 MG/DL BUN (test code = 2208) 40 MG/DL CREATININE (test code = 2214) 1.36 MG/DL eGFR (2020 CKD-EPI) (test code 41 ML/MIN/1.73 = 93829) CALC BUN/CREAT (test code = 29 RATIO [...] ALT (test code = 2219) 14 U/L [id number] 00:00:00 Test Item Value Reference Range Interpretation Comments TSH, THIRD GENERATION (test code 2.470 UIU/ML = 2821) [id number] 00:00:00 Test Item Value Reference Range Interpretation Comments TSH, THIRD GENERATION (test code 2.470 UIU/ML = 2821) CBC W/AUTO [id number] 00:00:00 Test Item Value Reference Range Interpretation [...] NUCLEATED RBCS (test code = 0.00 K/UL 04847) CBC W/AUTO [id number] 00:00:00 Test Item Value Reference Range Interpretation [...] NUCLEATED RBCS (test code = 0.00 K/UL 09287) COMPREHENSIVE METABOLIC [id number] 00:00:00 Test Item Value Reference Range Interpretation Comments GLUCOSE (test code = 2217) 188 MG/DL BUN (test code = 2208) 40 MG/DL CREATININE (test code = 2214) 1.36 MG/DL eGFR (2020 CKD-EPI) (test code 41 ML/MIN/1.73 = 53353) CALC BUN/CREAT (test code = 29 RATIO [...] CALC GLOBULIN (test code = 3.2 G/DL 224) CALC A/G RATIO (test code = 1.4 RATIO 4) BILIRUBIN, TOTAL (test code = 0.3 MG/DL 2206) ALKALINE PHOSPHATASE (test 84 U/L code = 2204) AST (test code = 2218) 15 U/L ALT (test code = 2219) 14 U/L [id number] 00:00:00 Test Item Value Reference Range Interpretation Comments TSH, THIRD GENERATION (test code 2.470 UIU/ML = 2821) [id number] 00:00:00 Test Item Value Reference Range Interpretation Comments TSH, THIRD GENERATION (test code 2.470 UIU/ML = 2821) CBC W/AUTO [id number] 00:00:00 Test Item Value Reference Range Interpretation [...] NUCLEATED RBCS (test code = 0.00 K/UL 86018) CBC W/AUTO [id number] 00:00:00 Test Item Value Reference Range Interpretation [...] NUCLEATED RBCS (test code = 0.00 K/UL 76393) CBC W/AUTO [id number] 00:00:00 Test Item Value Reference Range Interpretation [...] NUCLEATED RBCS (test code = 0.00 K/UL 54382) COMPREHENSIVE METABOLIC [id number] 00:00:00 Test Item Value Reference Range Interpretation Comments GLUCOSE (test code = 2217) 188 MG/DL BUN (test code = 2208) 40 MG/DL CREATININE (test code = 2214) 1.36 MG/DL eGFR (2020 CKD-EPI) (test code 41 ML/MIN/1.73 = 49439) CALC BUN/CREAT (test code = 29 RATIO [...] code = 2219) 14 U/L COMPREHENSIVE METABOLIC [id number] 00:00:00 Test Item Value Reference Range Interpretation Comments GLUCOSE (test code = 2217) 188 MG/DL BUN (test code = 2208) 40 MG/DL CREATININE (test code = 2214) 1.36 MG/DL eGFR (2020 CKD-EPI) (test code 41 ML/MIN/1.73 = 68324) CALC BUN/CREAT (test code = 29 RATIO [...] ALT (test code = 2219) 14 U/L [id number] 00:00:00 Test Item Value Reference Range Interpretation Comments TSH, THIRD GENERATION (test code 2.470 UIU/ML = 2821) [id number] 00:00:00 Test Item Value Reference Range Interpretation Comments TSH, THIRD GENERATION (test code 2.470 UIU/ML = 2821) [id number] 00:00:00 Test Item Value Reference Range Interpretation Comments TSH, THIRD GENERATION (test code 2.470 UIU/ML = 2821) CBC W/AUTO [id number] 00:00:00 Test Item Value Reference Range Interpretation [...] NUCLEATED RBCS (test code = 0.00 K/UL 39987) CBC W/AUTO [id number] 00:00:00 Test Item Value Reference Range Interpretation [...] NUCLEATED RBCS (test code = 0.00 K/UL 79187) CBC W/AUTO [id number] 00:00:00 Test Item Value Reference Range Interpretation [...] NUCLEATED RBCS (test code = 0.00 K/UL 31334) COMPREHENSIVE METABOLIC [id number] 00:00:00 Test Item Value Reference Range Interpretation Comments GLUCOSE (test code = 2217) 188 MG/DL BUN (test code = 2208) 40 MG/DL CREATININE (test code = 2214) 1.36 MG/DL eGFR (2020 CKD-EPI) (test code 41 ML/MIN/1.73 = 94145) CALC BUN/CREAT (test code = 29 RATIO [...] code = 2219) 14 U/L COMPREHENSIVE METABOLIC [id number] 00:00:00 Test Item Value Reference Range Interpretation Comments GLUCOSE (test code = 2217) 188 MG/DL BUN (test code = 2208) 40 MG/DL CREATININE (test code = 2214) 1.36 MG/DL eGFR (2020 CKD-EPI) (test code 41 ML/MIN/1.73 = 20360) CALC BUN/CREAT (test code = 29 RATIO 2235) SODIUM (test code = 2231) 145 MEQ/L POTASSIUM (test code = 2228) 5.2 MEQ/L CHLORIDE (test code = 2215) 109 MEQ/L CARBON DIOXIDE (test code = 21 MEQ/L 2206) CALCIUM (test code = 2209) 9.7 MG/DL [...] ALT (test code = 2219) 14 U/L [id number] 00:00:00 Test Item Value Reference Range Interpretation Comments TSH, THIRD GENERATION (test code 2.470 UIU/ML = 2821) [id number] 00:00:00 Test Item Value Reference Range Interpretation Comments TSH, THIRD GENERATION (test code 2.470 UIU/ML = 2821) [id number] 00:00:00 Test Item Value Reference Range Interpretation Comments TSH, THIRD GENERATION (test code 2.470 UIU/ML = 2821) CBC W/AUTO [id number] 00:00:00 Test Item Value Reference Range Interpretation [...] NUCLEATED RBCS (test code = 0.00 K/UL 14249) CBC W/AUTO [id number] 00:00:00 Test Item Value Reference Range Interpretation [...] NUCLEATED RBCS (test code = 0.00 K/UL 74065) CBC W/AUTO [id number] 00:00:00 Test Item Value Reference Range Interpretation [...] NUCLEATED RBCS (test code = 0.00 K/UL 24602) CBC W/AUTO DIFF WITH [id number] 04:35:16 Test Item Value Reference Range Interpretation [...] RBCS 0.00 K/UL 0.00-0.11 (test code = 37917) HEMOGLOBIN [id number] 04:23:29 Test Item Value Reference Range Interpretation Comments HEMOGLOBIN A1c (test 8.8 % 4.2-5.6 H [employer] AN DIABETES code = 36957) ASSOCIATION [employer] FOR HGB A1C: PREDIABETES/INC REASED [...] TESTING OR LABORATORY C ONSULTATION. COMPREHENSIVE METABOLIC [id number] 03:52:38 Test Item Value Reference Range Interpretation Comments GLUCOSE (test code = 166 MG/DL 70-99 H 2216) BUN (test code = 30 MG/DL 8-23 H 2207) CREATININE (test 1.31 MG/DL 0.60-1.30 H code = 2214) eGFR (2020 CKD-EPI) 43 >60 L (test code = 22695) ML/MIN/1.73 CALC BUN/CREAT (test 23 RATIO 6-28 code = 2235) SODIUM (test code = 140 MEQ/L 363-830 3654) POTASSIUM (test code 5.5 MEQ/L 3.5-5.4 H [...] RATIO (test 1.4 RATIO 1.0-2.6 code = 223) BILIRUBIN, TOTAL 0.4 MG/DL See_Comment [Automated message] [...] TESTING PERFORM ED [facility], [facility]. [address] [place] [id number] [place] [address] DIRECTOR: KEN NEWMAN M.D. CLIA NUMBER [id number] CAP ACCREDITATION N O. [id number] HEMOGLOBIN [id number] 00:00:00 Test Item Value Reference Range Interpretation Comments HEMOGLOBIN A1c (test code = 21563) 8.8 % HEMOGLOBIN [id number] 00:00:00 Test Item Value Reference Range Interpretation Comments HEMOGLOBIN A1c (test code = 91392) 8.8 % CBC W/AUTO [id number] 00:00:00 Test Item Value Reference Range Interpretation [...] NUCLEATED RBCS (test code = 0.00 K/UL 13638) CBC W/AUTO [id number] 00:00:00 Test Item Value Reference Range Interpretation [...] NUCLEATED RBCS (test code = 0.00 K/UL 57560) COMPREHENSIVE METABOLIC [id number] 00:00:00 Test Item Value Reference Range Interpretation Comments GLUCOSE (test code = 2217) 166 MG/DL BUN (test code = 2208) 30 MG/DL CREATININE (test code = 2214) 1.31 MG/DL eGFR (2020 CKD-EPI) (test code 43 ML/MIN/1.73 = 75314) CALC BUN/CREAT (test code = 23 RATIO [...] (test code = 2219) 13 U/L HEMOGLOBIN [id number] 00:00:00 Test Item Value Reference Range Interpretation Comments HEMOGLOBIN A1c (test code = 80025) 8.8 % HEMOGLOBIN [id number] 00:00:00 Test Item Value Reference Range Interpretation Comments HEMOGLOBIN A1c (test code = 48492) 8.8 % CBC W/AUTO [id number] 00:00:00 Test Item Value Reference Range Interpretation [...] NUCLEATED RBCS (test code = 0.00 K/UL 14549) CBC W/AUTO [id number] 00:00:00 Test Item Value Reference Range Interpretation [...] NUCLEATED RBCS (test code = 0.00 K/UL 17448) COMPREHENSIVE METABOLIC [id number] 00:00:00 Test Item Value Reference Range Interpretation Comments GLUCOSE (test code = 2217) 166 MG/DL BUN (test code = 2208) 30 MG/DL CREATININE (test code = 2214) 1.31 MG/DL eGFR (2020 CKD-EPI) (test code 43 ML/MIN/1.73 = 17958) CALC BUN/CREAT (test code = 23 RATIO [...] (test code = 2219) 13 U/L HEMOGLOBIN [id number] 00:00:00 Test Item Value Reference Range Interpretation Comments HEMOGLOBIN A1c (test code = 49972) 8.8 % HEMOGLOBIN [id number] 00:00:00 Test Item Value Reference Range Interpretation Comments HEMOGLOBIN A1c (test code = 10791) 8.8 % HEMOGLOBIN [id number] 00:00:00 Test Item Value Reference Range Interpretation Comments HEMOGLOBIN A1c (test code = 49863) 8.8 % CBC W/AUTO [id number] 00:00:00 Test Item Value Reference Range Interpretation [...] NUCLEATED RBCS (test code = 0.00 K/UL 55571) CBC W/AUTO [id number] 00:00:00 Test Item Value Reference Range Interpretation [...] NUCLEATED RBCS (test code = 0.00 K/UL 52136) CBC W/AUTO [id number] 00:00:00 Test Item Value Reference Range Interpretation [...] NUCLEATED RBCS (test code = 0.00 K/UL 13586) COMPREHENSIVE METABOLIC [id number] 00:00:00 Test Item Value Reference Range Interpretation Comments GLUCOSE (test code = 2217) 166 MG/DL BUN (test code = 2208) 30 MG/DL CREATININE (test code = 2214) 1.31 MG/DL eGFR (2020 CKD-EPI) (test code 43 ML/MIN/1.73 = 04269) CALC BUN/CREAT (test code = 23 RATIO 2235) SODIUM (test code = 2231) 140 MEQ/L POTASSIUM (test code = 2228) 5.5 MEQ/L CHLORIDE (test code = 2215) 104 MEQ/L CARBON DIOXIDE (test code = 22 MEQ/L 2206) CALCIUM (test code = 2209) 10.0 MG/DL [...] code = 2219) 13 U/L COMPREHENSIVE METABOLIC [id number] 00:00:00 Test Item Value Reference Range Interpretation Comments GLUCOSE (test code = 2217) 166 MG/DL BUN (test code = 2208) 30 MG/DL CREATININE (test code = 2214) 1.31 MG/DL eGFR (2020 CKD-EPI) (test code 43 ML/MIN/1.73 = 34230) CALC BUN/CREAT (test code = 23 RATIO 2235) SODIUM (test code = 2231) 140 MEQ/L POTASSIUM (test code = 2228) 5.5 MEQ/L CHLORIDE (test code = 2215) 104 MEQ/L CARBON DIOXIDE (test code = 22 MEQ/L 2206) CALCIUM (test code = 2209) 10.0 MG/DL PROTEIN, TOTAL (test code = 7.8 G/DL 2228) ALBUMIN (test code = 2201) 4.5 G/DL CALC GLOBULIN (test code = 3.3 G/DL 2240) CALC A/G RATIO (test code = 1.4 RATIO 2234) BILIRUBIN, TOTAL (test code = 0.4 MG/DL 7) ALKALINE PHOSPHATASE (test 86 U/L code = 2204) AST (test code = 2218) 21 U/L ALT (test code = 2219) 13 U/L HEMOGLOBIN [id number] 00:00:00 Test Item Value Reference Range Interpretation Comments HEMOGLOBIN A1c (test code = 08432) 8.8 % HEMOGLOBIN [id number] 00:00:00 Test Item Value Reference Range Interpretation Comments HEMOGLOBIN A1c (test code = 24280) 8.8 % HEMOGLOBIN [id number] 00:00:00 Test Item Value Reference Range Interpretation Comments HEMOGLOBIN A1c (test code = 27125) 8.8 % CBC W/AUTO [id number] 00:00:00 Test Item Value Reference Range Interpretation [...] NUCLEATED RBCS (test code = 0.00 K/UL 42201) CBC W/AUTO [id number] 00:00:00 Test Item Value Reference Range Interpretation [...] NUCLEATED RBCS (test code = 0.00 K/UL 82521) CBC W/AUTO [id number] 00:00:00 Test Item Value Reference Range Interpretation [...] NUCLEATED RBCS (test code = 0.00 K/UL 24708) COMPREHENSIVE METABOLIC [id number] 00:00:00 Test Item Value Reference Range Interpretation Comments GLUCOSE (test code = 2217) 166 MG/DL BUN (test code = 2208) 30 MG/DL CREATININE (test code = 2214) 1.31 MG/DL eGFR (2020 CKD-EPI) (test code 43 ML/MIN/1.73 = 79356) CALC BUN/CREAT (test code = 23 RATIO 2235) SODIUM (test code = 2231) 140 MEQ/L POTASSIUM (test code = 2228) 5.5 MEQ/L CHLORIDE (test code = 2215) 104 MEQ/L CARBON DIOXIDE (test code = 22 MEQ/L 2206) CALCIUM (test code = 2209) 10.0 MG/DL [...] code = 2219) 13 U/L COMPREHENSIVE METABOLIC [id number] 00:00:00 Test Item Value Reference Range Interpretation Comments GLUCOSE (test code = 2217) 166 MG/DL BUN (test code = 2208) 30 MG/DL CREATININE (test code = 2214) 1.31 MG/DL eGFR (2020 CKD-EPI) (test code 43 ML/MIN/1.73 = 36472) CALC BUN/CREAT (test code = 23 RATIO 5) SODIUM (test code = 2231) [...] ALKALINE PHOSPHATASE (test 86 U/L code = 220) AST (test code = 2218) 21 U/L ALT (test code = 2219) 13 U/L HEMOGLOBIN [id number] 00:00:00 Test Item Value Reference Range Interpretation Comments HEMOGLOBIN A1c (test code = 76465) 8.8 % HEMOGLOBIN [id number] 00:00:00 Test Item Value Reference Range Interpretation Comments HEMOGLOBIN A1c (test code = 40300) 8.8 % HEMOGLOBIN [id number] 00:00:00 Test Item Value Reference Range Interpretation Comments HEMOGLOBIN A1c (test code = 95620) 8.8 % CBC W/AUTO [id number] 00:00:00 Test Item Value Reference Range Interpretation [...] NUCLEATED RBCS (test code = 0.00 K/UL 50355) CBC W/AUTO [id number] 00:00:00 Test Item Value Reference Range Interpretation [...] NUCLEATED RBCS (test code = 0.00 K/UL 21748) CBC W/AUTO [id number] 00:00:00 Test Item Value Reference Range Interpretation [...] NUCLEATED RBCS (test code = 0.00 K/UL 26031) COMPREHENSIVE METABOLIC [id number] 00:00:00 Test Item Value Reference Range Interpretation Comments GLUCOSE (test code = 2217) 166 MG/DL BUN (test code = 2208) 30 MG/DL CREATININE (test code = 2214) 1.31 MG/DL eGFR (2020 CKD-EPI) (test code 43 ML/MIN/1.73 = 13112) CALC BUN/CREAT (test code = 23 RATIO [...] code = 2219) 13 U/L COMPREHENSIVE METABOLIC [id number] 00:00:00 Test Item Value Reference Range Interpretation Comments GLUCOSE (test code = 2217) 166 MG/DL BUN (test code = 2208) 30 MG/DL CREATININE (test code = 2214) 1.31 MG/DL eGFR (2020 CKD-EPI) (test code 43 ML/MIN/1.73 = 48540) CALC BUN/CREAT (test code = 23 RATIO [...] (test code = 2219) 13 U/L HEMOGLOBIN [id number] 00:00:00 Test Item Value Reference Range Interpretation Comments HEMOGLOBIN A1c (test code = 19757) 9.1 % HEMOGLOBIN [id number] 00:00:00 Test Item Value Reference Range Interpretation Comments HEMOGLOBIN A1c (test code = 42999) 9.1 % MICROALBUMIN/CREATININE, RANDOM AND [id number] 00:00:00 Test Item Value Reference Range Interpretation Comments CREATININE, URINE, CONC. (test 108.6 MG/DL code = 2072) ALBUMIN, URINE, RANDOM (test code 29.0 MG/DL = 71240) CALC ALBUMIN/CREAT, RND (test 267 MG/G code = 31197) MICROALBUMIN/CREATININE, RANDOM AND [id number] 00:00:00 Test Item Value Reference Range Interpretation Comments CREATININE, URINE, CONC. (test 108.6 MG/DL code = 2072) ALBUMIN, URINE, RANDOM (test code 29.0 MG/DL = 82940) CALC ALBUMIN/CREAT, RND (test 267 MG/G code = 54819) INTACT [id number] 00:00:00 Test Item Value Reference Range Interpretation Comments INTACT PTH (test code = 5005) 85 PG/ML INTACT [id number] 00:00:00 Test Item Value Reference Range Interpretation Comments INTACT PTH (test code = 5005) 85 PG/ML INTACT [id number] 00:00:00 Test Item Value Reference Range Interpretation Comments INTACT PTH (test code = 5005) 85 PG/ML LIPID [id number] 00:00:00 Test Item Value Reference Range Interpretation Comments CHOLESTEROL (test code = 2210) 229 MG/DL TRIGLYCERIDES (test code = 2232) 246 MG/DL HDL CHOLESTEROL (test code = 2220) 48 MG/DL CALC LDL CHOL (test code = 2237) 141 MG/DL RISK RATIO LDL/HDL (test code = 2.94 RATIO 2238) CBC W/AUTO [id number] 00:00:00 Test Item Value Reference Range Interpretation [...] NUCLEATED RBCS (test code = 0.00 K/UL 79746) CBC W/AUTO [id number] 00:00:00 Test Item Value Reference Range Interpretation [...] NUCLEATED RBCS (test code = 0.00 K/UL 48528) HEMOGLOBIN [id number] 00:00:00 Test Item Value Reference Range Interpretation Comments HEMOGLOBIN A1c (test code = 11418) 9.1 % HEMOGLOBIN [id number] 00:00:00 Test Item Value Reference Range Interpretation Comments HEMOGLOBIN A1c (test code = 53852) 9.1 % MICROALBUMIN/CREATININE, RANDOM AND [id number] 00:00:00 Test Item Value Reference Range Interpretation Comments CREATININE, URINE, CONC. (test 108.6 MG/DL code = 2072) ALBUMIN, URINE, RANDOM (test code 29.0 MG/DL = 72460) CALC ALBUMIN/CREAT, RND (test 267 MG/G code = 83249) INTACT [id number] 00:00:00 Test Item Value Reference Range Interpretation Comments INTACT PTH (test code = 5005) 85 PG/ML INTACT [id number] 00:00:00 Test Item Value Reference Range Interpretation Comments INTACT PTH (test code = 5005) 85 PG/ML LIPID [id number] 00:00:00 Test Item Value Reference Range Interpretation Comments CHOLESTEROL (test code = 2210) 229 MG/DL TRIGLYCERIDES (test code = 2232) 246 MG/DL HDL CHOLESTEROL (test code = 2220) 48 MG/DL CALC LDL CHOL (test code = 2237) 141 MG/DL RISK RATIO LDL/HDL (test code = 2.94 RATIO 2238) CBC W/AUTO [id number] 00:00:00 Test Item Value Reference Range Interpretation [...] NUCLEATED RBCS (test code = 0.00 K/UL 22746) CBC W/AUTO [id number] 00:00:00 Test Item Value Reference Range Interpretation [...] NUCLEATED RBCS (test code = 0.00 K/UL 12317) HEMOGLOBIN [id number] 00:00:00 Test Item Value Reference Range Interpretation Comments HEMOGLOBIN A1c (test code = 49390) 9.1 % HEMOGLOBIN [id number] 00:00:00 Test Item Value Reference Range Interpretation Comments HEMOGLOBIN A1c (test code = 23889) 9.1 % MICROALBUMIN/CREATININE, RANDOM AND [id number] 00:00:00 Test Item Value Reference Range Interpretation Comments CREATININE, URINE, CONC. (test 108.6 MG/DL code = 2072) ALBUMIN, URINE, RANDOM (test code 29.0 MG/DL = 57845) CALC ALBUMIN/CREAT, RND (test 267 MG/G code = 58831) INTACT [id number] 00:00:00 Test Item Value Reference Range Interpretation Comments INTACT PTH (test code = 5005) 85 PG/ML INTACT [id number] 00:00:00 Test Item Value Reference Range Interpretation Comments INTACT PTH (test code = 5005) 85 PG/ML LIPID [id number] 00:00:00 Test Item Value Reference Range Interpretation Comments CHOLESTEROL (test code = 2210) 229 MG/DL TRIGLYCERIDES (test code = 2232) 246 MG/DL HDL CHOLESTEROL (test code = 2220) 48 MG/DL CALC LDL CHOL (test code = 2237) 141 MG/DL RISK RATIO LDL/HDL (test code = 2.94 RATIO 2238) LIPID [id number] 00:00:00 Test Item Value Reference Range Interpretation Comments CHOLESTEROL (test code = 2210) 229 MG/DL TRIGLYCERIDES (test code = 2232) 246 MG/DL HDL CHOLESTEROL (test code = 2220) 48 MG/DL CALC LDL CHOL (test code = 2237) 141 MG/DL RISK RATIO LDL/HDL (test code = 2.94 RATIO 2238) CBC W/AUTO [id number] 00:00:00 Test Item Value Reference Range Interpretation [...] NUCLEATED RBCS (test code = 0.00 K/UL 88131) CBC W/AUTO [id number] 00:00:00 Test Item Value Reference Range Interpretation [...] NUCLEATED RBCS (test code = 0.00 K/UL 96365) CBC W/AUTO [id number] 00:00:00 Test Item Value Reference Range Interpretation [...] NUCLEATED RBCS (test code = 0.00 K/UL 87469) HEMOGLOBIN [id number] 00:00:00 Test Item Value Reference Range Interpretation Comments HEMOGLOBIN A1c (test code = 64569) 9.1 % HEMOGLOBIN [id number] 00:00:00 Test Item Value Reference Range Interpretation Comments HEMOGLOBIN A1c (test code = 89976) 9.1 % HEMOGLOBIN [id number] 00:00:00 Test Item Value Reference Range Interpretation Comments HEMOGLOBIN A1c (test code = 08518) 9.1 % MICROALBUMIN/CREATININE, RANDOM AND [id number] 00:00:00 Test Item Value Reference Range Interpretation Comments CREATININE, URINE, CONC. (test 108.6 MG/DL code = 2072) ALBUMIN, URINE, RANDOM (test code 29.0 MG/DL = 44309) CALC ALBUMIN/CREAT, RND (test 267 MG/G code = 37483) MICROALBUMIN/CREATININE, RANDOM AND [id number] 00:00:00 Test Item Value Reference Range Interpretation Comments CREATININE, URINE, CONC. (test 108.6 MG/DL code = 2072) ALBUMIN, URINE, RANDOM (test code 29.0 MG/DL = 90048) CALC ALBUMIN/CREAT, RND (test 267 MG/G code = 04093) INTACT [id number] 00:00:00 Test Item Value Reference Range Interpretation Comments INTACT PTH (test code = 5005) 85 PG/ML INTACT [id number] 00:00:00 Test Item Value Reference Range Interpretation Comments INTACT PTH (test code = 5005) 85 PG/ML INTACT [id number] 00:00:00 Test Item Value Reference Range Interpretation Comments INTACT PTH (test code = 5005) 85 PG/ML LIPID [id number] 00:00:00 Test Item Value Reference Range Interpretation Comments CHOLESTEROL (test code = 2210) 229 MG/DL TRIGLYCERIDES (test code = 2232) 246 MG/DL HDL CHOLESTEROL (test code = 2220) 48 MG/DL CALC LDL CHOL (test code = 2237) 141 MG/DL RISK RATIO LDL/HDL (test code = 2.94 RATIO 2238) LIPID [id number] 00:00:00 Test Item Value Reference Range Interpretation Comments CHOLESTEROL (test code = 2210) 229 MG/DL TRIGLYCERIDES (test code = 2232) 246 MG/DL HDL CHOLESTEROL (test code = 2220) 48 MG/DL CALC LDL CHOL (test code = 2237) 141 MG/DL RISK RATIO LDL/HDL (test code = 2.94 RATIO 2238) CBC W/AUTO [id number] 00:00:00 Test Item Value Reference Range Interpretation [...] NUCLEATED RBCS (test code = 0.00 K/UL 03824) CBC W/AUTO [id number] 00:00:00 Test Item Value Reference Range Interpretation [...] NUCLEATED RBCS (test code = 0.00 K/UL 99043) CBC W/AUTO [id number] 00:00:00 Test Item Value Reference Range Interpretation [...] NUCLEATED RBCS (test code = 0.00 K/UL 38530) HEMOGLOBIN [id number] 00:00:00 Test Item Value Reference Range Interpretation Comments HEMOGLOBIN A1c (test code = 25446) 9.1 % HEMOGLOBIN [id number] 00:00:00 Test Item Value Reference Range Interpretation Comments HEMOGLOBIN A1c (test code = 16562) 9.1 % HEMOGLOBIN [id number] 00:00:00 Test Item Value Reference Range Interpretation Comments HEMOGLOBIN A1c (test code = 62891) 9.1 % MICROALBUMIN/CREATININE, RANDOM AND [id number] 00:00:00 Test Item Value Reference Range Interpretation Comments CREATININE, URINE, CONC. (test 108.6 MG/DL code = 2072) ALBUMIN, URINE, RANDOM (test code 29.0 MG/DL = 02332) CALC ALBUMIN/CREAT, RND (test 267 MG/G code = 39377) MICROALBUMIN/CREATININE, RANDOM AND [id number] 00:00:00 Test Item Value Reference Range Interpretation Comments CREATININE, URINE, CONC. (test 108.6 MG/DL code = 2072) ALBUMIN, URINE, RANDOM (test code 29.0 MG/DL = 22806) CALC ALBUMIN/CREAT, RND (test 267 MG/G code = 23126) INTACT [id number] 00:00:00 Test Item Value Reference Range Interpretation Comments INTACT PTH (test code = 5005) 85 PG/ML INTACT [id number] 00:00:00 Test Item Value Reference Range Interpretation Comments INTACT PTH (test code = 5005) 85 PG/ML INTACT [id number] 00:00:00 Test Item Value Reference Range Interpretation Comments INTACT PTH (test code = 5005) 85 PG/ML LIPID [id number] 00:00:00 Test Item Value Reference Range Interpretation Comments CHOLESTEROL (test code = 2210) 229 MG/DL TRIGLYCERIDES (test code = 2232) 246 MG/DL HDL CHOLESTEROL (test code = 2220) 48 MG/DL CALC LDL CHOL (test code = 2237) 141 MG/DL RISK RATIO LDL/HDL (test code = 2.94 RATIO 2238) LIPID [id number] 00:00:00 Test Item Value Reference Range Interpretation Comments CHOLESTEROL (test code = 2210) 229 MG/DL TRIGLYCERIDES (test code = 2232) 246 MG/DL HDL CHOLESTEROL (test code = 2220) 48 MG/DL CALC LDL CHOL (test code = 2237) 141 MG/DL RISK RATIO LDL/HDL (test code = 2.94 RATIO 2238) CBC W/AUTO [id number] 00:00:00 Test Item Value Reference Range Interpretation [...] NUCLEATED RBCS (test code = 0.00 K/UL 37902) CBC W/AUTO [id number] 00:00:00 Test Item Value Reference Range Interpretation [...] NUCLEATED RBCS (test code = 0.00 K/UL 83334) CBC W/AUTO [id number] 00:00:00 Test Item Value Reference Range Interpretation [...] NUCLEATED RBCS (test code = 0.00 K/UL 51022) HEMOGLOBIN [id number] 00:00:00 Test Item Value Reference Range Interpretation Comments HEMOGLOBIN A1c (test code = 62302) 9.1 % CULTURE, [id number] 00:00:00 Test Item Value Reference Range Interpretation Comments CULTURE, ROUTINE (test SPECIMEN NUMBER: code = 74688) [id number] CULTURE, [id number] 00:00:00 Test Item Value Reference Range Interpretation Comments CULTURE, ROUTINE (test SPECIMEN NUMBER: code = 47050) [id number] CULTURE, [id number] 00:00:00 Test Item Value Reference Range Interpretation Comments CULTURE, ROUTINE (test SPECIMEN NUMBER: code = 38633) [id number] CULTURE, [id number] 00:00:00 Test Item Value Reference Range Interpretation Comments CULTURE, ROUTINE (test SPECIMEN NUMBER: code = 54321) [id number] CULTURE, [id number] 00:00:00 Test Item Value Reference Range Interpretation Comments CULTURE, ROUTINE (test SPECIMEN NUMBER: code = 82317) [id number] CULTURE, [id number] 00:00:00 Test Item Value Reference Range Interpretation Comments CULTURE, ROUTINE (test SPECIMEN NUMBER: code = 28345) [id number] CULTURE, [id number] 00:00:00 Test Item Value Reference Range Interpretation Comments CULTURE, ROUTINE (test SPECIMEN NUMBER: code = 66595) [id number] CULTURE, [id number] 00:00:00 Test Item Value Reference Range Interpretation Comments CULTURE, ROUTINE (test SPECIMEN NUMBER: code = 05499) [id number] CULTURE, [id number] 00:00:00 Test Item Value Reference Range Interpretation Comments CULTURE, ROUTINE (test SPECIMEN NUMBER: code = 03913) [id number] CULTURE, [id number] 00:00:00 Test Item Value Reference Range Interpretation Comments CULTURE, ROUTINE (test SPECIMEN NUMBER: code = 04496) [id number] CULTURE, [id number] 00:00:00 Test Item Value Reference Range Interpretation Comments CULTURE, ROUTINE (test SPECIMEN NUMBER: code = 51819) [id number] CULTURE, [id number] 00:00:00 Test Item Value Reference Range Interpretation Comments CULTURE, ROUTINE (test SPECIMEN NUMBER: code = 06063) [id number] CULTURE, [id number] 00:00:00 Test Item Value Reference Range Interpretation Comments CULTURE, ROUTINE (test SPECIMEN NUMBER: code = 18012) [id number] HEMOGLOBIN [id number] 00:00:00 Test Item Value Reference Range Interpretation Comments HEMOGLOBIN A1c (test code = 33314) 8.7 % HEMOGLOBIN [id number] 00:00:00 Test Item Value Reference Range Interpretation Comments HEMOGLOBIN A1c (test code = 43361) 8.7 % COMPREHENSIVE METABOLIC [id number] 00:00:00 Test Item Value Reference Range Interpretation Comments GLUCOSE (test code = 2217) 222 MG/DL BUN (test code = 2208) 27 MG/DL CREATININE (test code = 2214) 1.05 MG/DL eGFR AMER. (test code 61 ML/MIN/1.73 = 15147) eGFR NON- AMER. (test 53 ML/MIN/1.73 code = 64415) CALC BUN/CREAT (test code = 26 RATIO [...] (test code = 2219) 11 U/L LIPID [id number] 00:00:00 Test Item Value Reference Range Interpretation Comments CHOLESTEROL (test code = 2210) 230 MG/DL TRIGLYCERIDES (test code = 2232) 414 MG/DL HDL CHOLESTEROL (test code = 51 MG/DL 2219) CALC LDL CHOL (test code = 2237) (NOTE) MG/DL RISK RATIO LDL/HDL (test code = (NOTE) RATIO 2238) HEMOGLOBIN [id number] 00:00:00 Test Item Value Reference Range Interpretation Comments HEMOGLOBIN A1c (test code = 92447) 8.7 % HEMOGLOBIN [id number] 00:00:00 Test Item Value Reference Range Interpretation Comments HEMOGLOBIN A1c (test code = 17104) 8.7 % COMPREHENSIVE METABOLIC [id number] 00:00:00 Test Item Value Reference Range Interpretation Comments GLUCOSE (test code = 2217) 222 MG/DL BUN (test code = 2208) 27 MG/DL CREATININE (test code = 2214) 1.05 MG/DL eGFR AMER. (test code 61 ML/MIN/1.73 = 23319) eGFR NON- AMER. (test 53 ML/MIN/1.73 code = 16495) CALC BUN/CREAT (test code = 26 RATIO [...] (test code = 2219) 11 U/L LIPID [id number] 00:00:00 Test Item Value Reference Range Interpretation Comments CHOLESTEROL (test code = 2210) 230 MG/DL TRIGLYCERIDES (test code = 2232) 414 MG/DL HDL CHOLESTEROL (test code = 51 MG/DL 2219) CALC LDL CHOL (test code = 2237) (NOTE) MG/DL RISK RATIO LDL/HDL (test code = (NOTE) RATIO 2238) HEMOGLOBIN [id number] 00:00:00 Test Item Value Reference Range Interpretation Comments HEMOGLOBIN A1c (test code = 19451) 8.7 % HEMOGLOBIN [id number] 00:00:00 Test Item Value Reference Range Interpretation Comments HEMOGLOBIN A1c (test code = 90004) 8.7 % COMPREHENSIVE METABOLIC [id number] 00:00:00 Test Item Value Reference Range Interpretation Comments GLUCOSE (test code = 2217) 222 MG/DL BUN (test code = 2208) 27 MG/DL CREATININE (test code = 2214) 1.05 MG/DL eGFR AMER. (test code 61 ML/MIN/1.73 = 38748) eGFR NON- AMER. (test 53 ML/MIN/1.73 code = 52683) CALC BUN/CREAT (test code = 26 RATIO [...] code = 2219) 11 U/L COMPREHENSIVE METABOLIC [id number] 00:00:00 Test Item Value Reference Range Interpretation Comments GLUCOSE (test code = 2217) 222 MG/DL BUN (test code = 2208) 27 MG/DL CREATININE (test code = 2214) 1.05 MG/DL eGFR AMER. (test code 61 ML/MIN/1.73 = 24353) eGFR NON- AMER. (test 53 ML/MIN/1.73 code = 70557) CALC BUN/CREAT (test code = 26 RATIO [...] (test code = 2219) 11 U/L LIPID [id number] 00:00:00 Test Item Value Reference Range Interpretation Comments CHOLESTEROL (test code = 2210) 230 MG/DL TRIGLYCERIDES (test code = 2232) 414 MG/DL HDL CHOLESTEROL (test code = 51 MG/DL 2220) CALC LDL CHOL (test code = 2237) (NOTE) MG/DL RISK RATIO LDL/HDL (test code = (NOTE) RATIO 2238) LIPID [id number] 00:00:00 Test Item Value Reference Range Interpretation Comments CHOLESTEROL (test code = 2210) 230 MG/DL TRIGLYCERIDES (test code = 2232) 414 MG/DL HDL CHOLESTEROL (test code = 51 MG/DL 0) CALC LDL CHOL (test code = 2237) (NOTE) MG/DL RISK RATIO LDL/HDL (test code = (NOTE) RATIO 2238) HEMOGLOBIN [id number] 00:00:00 Test Item Value Reference Range Interpretation Comments HEMOGLOBIN A1c (test code = 22938) 8.7 % HEMOGLOBIN [id number] 00:00:00 Test Item Value Reference Range Interpretation Comments HEMOGLOBIN A1c (test code = 60191) 8.7 % HEMOGLOBIN [id number] 00:00:00 Test Item Value Reference Range Interpretation Comments HEMOGLOBIN A1c (test code = 69961) 8.7 % COMPREHENSIVE METABOLIC [id number] 00:00:00 Test Item Value Reference Range Interpretation Comments GLUCOSE (test code = 2217) 222 MG/DL BUN (test code = 2208) 27 MG/DL CREATININE (test code = 2214) 1.05 MG/DL eGFR AMER. (test code 61 ML/MIN/1.73 = 50491) eGFR NON- AMER. (test 53 ML/MIN/1.73 code = 69248) CALC BUN/CREAT (test code = 26 RATIO [...] code = 2219) 11 U/L COMPREHENSIVE METABOLIC [id number] 00:00:00 Test Item Value Reference Range Interpretation Comments GLUCOSE (test code = 2217) 222 MG/DL BUN (test code = 2208) 27 MG/DL CREATININE (test code = 2214) 1.05 MG/DL eGFR AMER. (test code 61 ML/MIN/1.73 = 19657) eGFR NON- AMER. (test 53 ML/MIN/1.73 code = 19569) CALC BUN/CREAT (test code = 26 RATIO [...] (test code = 2219) 11 U/L LIPID [id number] 00:00:00 Test Item Value Reference Range Interpretation Comments CHOLESTEROL (test code = 2210) 230 MG/DL TRIGLYCERIDES (test code = 2232) 414 MG/DL HDL CHOLESTEROL (test code = 51 MG/DL 2220) CALC LDL CHOL (test code = 2237) (NOTE) MG/DL RISK RATIO LDL/HDL (test code = (NOTE) RATIO 2238) LIPID [id number] 00:00:00 Test Item Value Reference Range Interpretation Comments CHOLESTEROL (test code = 2210) 230 MG/DL TRIGLYCERIDES (test code = 2232) 414 MG/DL HDL CHOLESTEROL (test code = 51 MG/DL 0) CALC LDL CHOL (test code = 2237) (NOTE) MG/DL RISK RATIO LDL/HDL (test code = (NOTE) RATIO 2238) HEMOGLOBIN [id number] 00:00:00 Test Item Value Reference Range Interpretation Comments HEMOGLOBIN A1c (test code = 53842) 8.7 % HEMOGLOBIN [id number] 00:00:00 Test Item Value Reference Range Interpretation Comments HEMOGLOBIN A1c (test code = 70255) 8.7 % HEMOGLOBIN [id number] 00:00:00 Test Item Value Reference Range Interpretation Comments HEMOGLOBIN A1c (test code = 83298) 8.7 % COMPREHENSIVE METABOLIC [id number] 00:00:00 Test Item Value Reference Range Interpretation Comments GLUCOSE (test code = 2217) 222 MG/DL BUN (test code = 2208) 27 MG/DL CREATININE (test code = 2214) 1.05 MG/DL eGFR AMER. (test code 61 ML/MIN/1.73 = 68823) eGFR NON- AMER. (test 53 ML/MIN/1.73 code = 08800) CALC BUN/CREAT (test code = 26 RATIO [...] code = 2219) 11 U/L COMPREHENSIVE METABOLIC [id number] 00:00:00 Test Item Value Reference Range Interpretation Comments GLUCOSE (test code = 2217) 222 MG/DL BUN (test code = 2208) 27 MG/DL CREATININE (test code = 2214) 1.05 MG/DL eGFR AMER. (test code 61 ML/MIN/1.73 = 96535) eGFR NON- AMER. (test 53 ML/MIN/1.73 code = 19285) CALC BUN/CREAT (test code = 26 RATIO [...] (test code = 2219) 11 U/L LIPID [id number] 00:00:00 Test Item Value Reference Range Interpretation Comments CHOLESTEROL (test code = 2210) 230 MG/DL TRIGLYCERIDES (test code = 2232) 414 MG/DL HDL CHOLESTEROL (test code = 51 MG/DL 0) CALC LDL CHOL (test code = 2237) (NOTE) MG/DL RISK RATIO LDL/HDL (test code = (NOTE) RATIO 2238) LIPID [id number] 00:00:00 Test Item Value Reference Range Interpretation Comments CHOLESTEROL (test code = 2210) 230 MG/DL TRIGLYCERIDES (test code = 2232) 414 MG/DL HDL CHOLESTEROL (test code = 51 MG/DL 0) CALC LDL CHOL (test code = 2237) (NOTE) MG/DL RISK RATIO LDL/HDL (test code = (NOTE) RATIO 2238) HEMOGLOBIN [id number] 00:00:00 Test Item Value Reference Range Interpretation Comments HEMOGLOBIN A1c (test code = 66397) 8.7 % XR KNEE 3 VW [id number] 19:05:24HISTORY: ?Pain. FINDINGS: AP, lateral, oblique views [...] arthritis of left knee with minimal jointeffusion. [facility], Radiant Results Inft User - [...] degenerative arthritis of left knee with [facility]ffusion.[facility] 2020-10-14 19:04:18HISTORY: ?Pain. [...] No acutefracture or dislocation in left ankle. [facility], Radiant Results Inft User - 10/14/2020 2:05 [...] joint.CONCLUSIONS: No acute fractureor dislocation in left ankle.[facility] 2020-10-14 19:03:08HISTORY: ?Pain. [...] fracture or dislocation in pelvis or left hip.[facility] [id number] 00:00:00 Test Item Value Reference Range Interpretation Comments CULTURE, URINE (test SPECIMEN NUMBER: code = 03880) [id number] CULTURE, [id number] 00:00:00 Test Item Value Reference Range Interpretation Comments CULTURE, URINE (test SPECIMEN NUMBER: code = 10619) [id number] VITAMIN D, 25 [id number] 00:00:00 Test Item Value Reference Range Interpretation Comments VITAMIN D, 25 OH (test code = 4958) 18 NG/ML CULTURE, [id number] 00:00:00 Test Item Value Reference Range Interpretation Comments CULTURE, URINE (test SPECIMEN NUMBER: code = 82589) [id number] VITAMIN D, 25 [id number] 00:00:00 Test Item Value Reference Range Interpretation Comments VITAMIN D, 25 OH (test code = 4958) 18 NG/ML CULTURE, [id number] 00:00:00 Test Item Value Reference Range Interpretation Comments CULTURE, URINE (test SPECIMEN NUMBER: code = 32945) [id number] VITAMIN D, 25 [id number] 00:00:00 Test Item Value Reference Range Interpretation Comments VITAMIN D, 25 OH (test code = 4958) 18 NG/ML VITAMIN D, 25 [id number] 00:00:00 Test Item Value Reference Range Interpretation Comments VITAMIN D, 25 OH (test code = 4958) 18 NG/ML CULTURE, [id number] 00:00:00 Test Item Value Reference Range Interpretation Comments CULTURE, URINE (test SPECIMEN NUMBER: code = 40617) [id number] CULTURE, [id number] 00:00:00 Test Item Value Reference Range Interpretation Comments CULTURE, URINE (test SPECIMEN NUMBER: code = 15245) [id number] VITAMIN D, 25 [id number] 00:00:00 Test Item Value Reference Range Interpretation Comments VITAMIN D, 25 OH (test code = 4958) 18 NG/ML VITAMIN D, 25 [id number] 00:00:00 Test Item Value Reference Range Interpretation Comments VITAMIN D, 25 OH (test code = 4958) 18 NG/ML CULTURE, [id number] 00:00:00 Test Item Value Reference Range Interpretation Comments CULTURE, URINE (test SPECIMEN NUMBER: code = 13203) [id number] CULTURE, [id number] 00:00:00 Test Item Value Reference Range Interpretation Comments CULTURE, URINE (test SPECIMEN NUMBER: code = 58663) [id number] VITAMIN D, 25 [id number] 00:00:00 Test Item Value Reference Range Interpretation Comments VITAMIN D, 25 OH (test code = 4958) 18 NG/ML VITAMIN D, 25 [id number] 00:00:00 Test Item Value Reference Range Interpretation Comments VITAMIN D, 25 OH (test code = 4958) 18 NG/ML [id number] 00:00:00 Test Item Value Reference Range Interpretation Comments TSH, THIRD GENERATION (test code 2.450 UIU/ML = 2821) [id number] 00:00:00 Test Item Value Reference Range Interpretation Comments TSH, THIRD GENERATION (test code 2.450 UIU/ML = 2821) [id number] 00:00:00 Test Item Value Reference Range Interpretation Comments TSH, THIRD GENERATION (test code 2.450 UIU/ML = 2821) [id number] 00:00:00 Test Item Value Reference Range Interpretation Comments TSH, THIRD GENERATION (test code 2.450 UIU/ML = 2821) [id number] 00:00:00 Test Item Value Reference Range Interpretation Comments TSH, THIRD GENERATION (test code 2.450 UIU/ML = 2821) [id number] 00:00:00 Test Item Value Reference Range Interpretation Comments TSH, THIRD GENERATION (test code 2.450 UIU/ML = 2821) [id number] 00:00:00 Test Item Value Reference Range Interpretation Comments TSH, THIRD GENERATION (test code 2.450 UIU/ML = 2821) [id number] 00:00:00 Test Item Value Reference Range Interpretation Comments TSH, THIRD GENERATION (test code 2.450 UIU/ML = 2821) [id number] 00:00:00 Test Item Value Reference Range Interpretation Comments TSH, THIRD GENERATION (test code 2.450 UIU/ML = 2821) [id number] 00:00:00 Test Item Value Reference Range Interpretation Comments TSH, THIRD GENERATION (test code 2.450 UIU/ML = 2821) [id number] 00:00:00 Test Item Value Reference Range Interpretation Comments TSH, THIRD GENERATION (test code 2.450 UIU/ML = 2821) [id number] 00:00:00 Test Item Value Reference Range Interpretation Comments TSH, THIRD GENERATION (test code 2.450 UIU/ML = 2821) [id number] 00:00:00 Test Item Value Reference Range Interpretation Comments TSH, THIRD GENERATION (test code 2.450 UIU/ML = 2821) HEMOGLOBIN [id number] 00:00:00 Test Item Value Reference Range Interpretation Comments HEMOGLOBIN A1c (test code = 58494) 7.4 % HEMOGLOBIN [id number] 00:00:00 Test Item Value Reference Range Interpretation Comments HEMOGLOBIN A1c (test code = 55796) 7.4 % HEMOGLOBIN [id number] 00:00:00 Test Item Value Reference Range Interpretation Comments HEMOGLOBIN A1c (test code = 03946) 7.4 % HEMOGLOBIN [id number] 00:00:00 Test Item Value Reference Range Interpretation Comments HEMOGLOBIN A1c (test code = 30701) 7.4 % HEMOGLOBIN [id number] 00:00:00 Test Item Value Reference Range Interpretation Comments HEMOGLOBIN A1c (test code = 86525) 7.4 % HEMOGLOBIN [id number] 00:00:00 Test Item Value Reference Range Interpretation Comments HEMOGLOBIN A1c (test code = 61540) 7.4 % HEMOGLOBIN [id number] 00:00:00 Test Item Value Reference Range Interpretation Comments HEMOGLOBIN A1c (test code = 51019) 7.4 % HEMOGLOBIN [id number] 00:00:00 Test Item Value Reference Range Interpretation Comments HEMOGLOBIN A1c (test code = 59194) 7.4 % HEMOGLOBIN [id number] 00:00:00 Test Item Value Reference Range Interpretation Comments HEMOGLOBIN A1c (test code = 90790) 7.4 % HEMOGLOBIN [id number] 00:00:00 Test Item Value Reference Range Interpretation Comments HEMOGLOBIN A1c (test code = 68908) 7.4 % HEMOGLOBIN [id number] 00:00:00 Test Item Value Reference Range Interpretation Comments HEMOGLOBIN A1c (test code = 00892) 7.4 % HEMOGLOBIN [id number] 00:00:00 Test Item Value Reference Range Interpretation Comments HEMOGLOBIN A1c (test code = 49489) 7.4 % HEMOGLOBIN [id number] 00:00:00 Test Item Value Reference Range Interpretation Comments HEMOGLOBIN A1c (test code = 54000) 7.4 % CBC W/AUTO [id number] 00:00:00 Test Item Value Reference Range Interpretation [...] code = 1015) 230 K/UL CBC W/AUTO [id number] 00:00:00 Test Item Value Reference Range Interpretation [...] code = 1015) 230 K/UL CBC W/AUTO [id number] 00:00:00 Test Item Value Reference Range Interpretation [...] code = 1015) 230 K/UL CBC W/AUTO [id number] 00:00:00 Test Item Value Reference Range Interpretation [...] code = 1015) 230 K/UL CBC W/AUTO [id number] 00:00:00 Test Item Value Reference Range Interpretation [...] code = 1015) 230 K/UL CBC W/AUTO [id number] 00:00:00 Test Item Value Reference Range Interpretation [...] code = 1015) 230 K/UL CBC W/AUTO [id number] 00:00:00 Test Item Value Reference Range Interpretation [...] code = 1015) 230 K/UL CBC W/AUTO [id number] 00:00:00 Test Item Value Reference Range Interpretation [...] code = 1015) 230 K/UL CBC W/AUTO [id number] 00:00:00 Test Item Value Reference Range Interpretation [...] code = 1015) 230 K/UL CBC W/AUTO [id number] 00:00:00 Test Item Value Reference Range Interpretation [...] code = 1015) 230 K/UL CBC W/AUTO [id number] 00:00:00 Test Item Value Reference Range Interpretation [...] code = 1015) 230 K/UL CBC W/AUTO [id number] 00:00:00 Test Item Value Reference Range Interpretation [...] code = 1015) 230 K/UL CBC W/AUTO [id number] 00:00:00 Test Item Value Reference Range Interpretation [...] COUNT (test code = 1015) 230 K/UL LIPID [id number] 00:00:00 Test Item Value Reference Range Interpretation Comments CHOLESTEROL (test code = 2210) 184 MG/DL TRIGLYCERIDES (test code = 2232) 222 MG/DL HDL CHOLESTEROL (test code = 2220) 52 MG/DL CALC LDL CHOL (test code = 2237) 98 MG/DL RISK RATIO LDL/HDL (test code = 1.88 RATIO 2238) LIPID [id number] 00:00:00 Test Item Value Reference Range Interpretation Comments CHOLESTEROL (test code = 2210) 184 MG/DL TRIGLYCERIDES (test code = 2232) 222 MG/DL HDL CHOLESTEROL (test code = 2220) 52 MG/DL CALC LDL CHOL (test code = 2237) 98 MG/DL RISK RATIO LDL/HDL (test code = 1.88 RATIO 2238) HEMOGLOBIN [id number] 00:00:00 Test Item Value Reference Range Interpretation Comments HEMOGLOBIN A1c (test code = 37041) 8.4 % HEMOGLOBIN [id number] 00:00:00 Test Item Value Reference Range Interpretation Comments HEMOGLOBIN A1c (test code = 81716) 8.4 % COMPREHENSIVE METABOLIC [id number] 00:00:00 Test Item Value Reference Range Interpretation Comments GLUCOSE (test code = 2217) 204 MG/DL BUN (test code = 2208) 26 MG/DL CREATININE (test code = 2214) 1.21 MG/DL eGFR AMER. (test code 52 ML/MIN/1.73 = 24114) eGFR NON- AMER. (test 45 ML/MIN/1.73 code = 36196) CALC BUN/CREAT (test code = 21 RATIO [...] (test code = 2219) 8 U/L LIPID [id number] 00:00:00 Test Item Value Reference Range Interpretation Comments CHOLESTEROL (test code = 2210) 184 MG/DL TRIGLYCERIDES (test code = 2232) 222 MG/DL HDL CHOLESTEROL (test code = 2220) 52 MG/DL CALC LDL CHOL (test code = 2237) 98 MG/DL RISK RATIO LDL/HDL (test code = 1.88 RATIO 2238) HEMOGLOBIN [id number] 00:00:00 Test Item Value Reference Range Interpretation Comments HEMOGLOBIN A1c (test code = 10919) 8.4 % HEMOGLOBIN [id number] 00:00:00 Test Item Value Reference Range Interpretation Comments HEMOGLOBIN A1c (test code = 61327) 8.4 % COMPREHENSIVE METABOLIC [id number] 00:00:00 Test Item Value Reference Range Interpretation Comments GLUCOSE (test code = 2217) 204 MG/DL BUN (test code = 2208) 26 MG/DL CREATININE (test code = 2214) 1.21 MG/DL eGFR AMER. (test code 52 ML/MIN/1.73 = 57791) eGFR NON- AMER. (test 45 ML/MIN/1.73 code = 71143) CALC BUN/CREAT (test code = 21 RATIO [...] (test code = 2219) 8 U/L LIPID [id number] 00:00:00 Test Item Value Reference Range Interpretation Comments CHOLESTEROL (test code = 2210) 184 MG/DL TRIGLYCERIDES (test code = 2232) 222 MG/DL HDL CHOLESTEROL (test code = 2220) 52 MG/DL CALC LDL CHOL (test code = 2237) 98 MG/DL RISK RATIO LDL/HDL (test code = 1.88 RATIO 2238) HEMOGLOBIN [id number] 00:00:00 Test Item Value Reference Range Interpretation Comments HEMOGLOBIN A1c (test code = 40249) 8.4 % HEMOGLOBIN [id number] 00:00:00 Test Item Value Reference Range Interpretation Comments HEMOGLOBIN A1c (test code = 96516) 8.4 % HEMOGLOBIN [id number] 00:00:00 Test Item Value Reference Range Interpretation Comments HEMOGLOBIN A1c (test code = 22653) 8.4 % COMPREHENSIVE METABOLIC [id number] 00:00:00 Test Item Value Reference Range Interpretation Comments GLUCOSE (test code = 2217) 204 MG/DL BUN (test code = 2208) 26 MG/DL CREATININE (test code = 2214) 1.21 MG/DL eGFR AMER. (test code 52 ML/MIN/1.73 = 75729) eGFR NON- AMER. (test 45 ML/MIN/1.73 code = 39477) CALC BUN/CREAT (test code = 21 RATIO [...] code = 2219) 8 U/L COMPREHENSIVE METABOLIC [id number] 00:00:00 Test Item Value Reference Range Interpretation Comments GLUCOSE (test code = 2217) 204 MG/DL BUN (test code = 2208) 26 MG/DL CREATININE (test code = 2214) 1.21 MG/DL eGFR AMER. (test code 52 ML/MIN/1.73 = 47650) eGFR NON- AMER. (test 45 ML/MIN/1.73 code = 41897) CALC BUN/CREAT (test code = 21 RATIO [...] (test code = 2219) 8 U/L LIPID [id number] 00:00:00 Test Item Value Reference Range Interpretation Comments CHOLESTEROL (test code = 2210) 184 MG/DL TRIGLYCERIDES (test code = 2232) 222 MG/DL HDL CHOLESTEROL (test code = 2220) 52 MG/DL CALC LDL CHOL (test code = 2237) 98 MG/DL RISK RATIO LDL/HDL (test code = 1.88 RATIO 2238) LIPID [id number] 00:00:00 Test Item Value Reference Range Interpretation Comments CHOLESTEROL (test code = 2210) 184 MG/DL TRIGLYCERIDES (test code = 2232) 222 MG/DL HDL CHOLESTEROL (test code = 2220) 52 MG/DL CALC LDL CHOL (test code = 2237) 98 MG/DL RISK RATIO LDL/HDL (test code = 1.88 RATIO 2238) HEMOGLOBIN [id number] 00:00:00 Test Item Value Reference Range Interpretation Comments HEMOGLOBIN A1c (test code = 90332) 8.4 % HEMOGLOBIN [id number] 00:00:00 Test Item Value Reference Range Interpretation Comments HEMOGLOBIN A1c (test code = 99348) 8.4 % HEMOGLOBIN [id number] 00:00:00 Test Item Value Reference Range Interpretation Comments HEMOGLOBIN A1c (test code = 41572) 8.4 % COMPREHENSIVE METABOLIC [id number] 00:00:00 Test Item Value Reference Range Interpretation Comments GLUCOSE (test code = 2217) 204 MG/DL BUN (test code = 2208) 26 MG/DL CREATININE (test code = 2214) 1.21 MG/DL eGFR AMER. (test code 52 ML/MIN/1.73 = 33151) eGFR NON- AMER. (test 45 ML/MIN/1.73 code = 68869) CALC BUN/CREAT (test code = 21 RATIO [...] code = 2219) 8 U/L COMPREHENSIVE METABOLIC [id number] 00:00:00 Test Item Value Reference Range Interpretation Comments GLUCOSE (test code = 2217) 204 MG/DL BUN (test code = 2208) 26 MG/DL CREATININE (test code = 2214) 1.21 MG/DL eGFR AMER. (test code 52 ML/MIN/1.73 = 36398) eGFR NON- AMER. (test 45 ML/MIN/1.73 code = 94765) CALC BUN/CREAT (test code = 21 RATIO [...] (test code = 2219) 8 U/L LIPID [id number] 00:00:00 Test Item Value Reference Range Interpretation Comments CHOLESTEROL (test code = 2210) 184 MG/DL TRIGLYCERIDES (test code = 2232) 222 MG/DL HDL CHOLESTEROL (test code = 2220) 52 MG/DL CALC LDL CHOL (test code = 2237) 98 MG/DL RISK RATIO LDL/HDL (test code = 1.88 RATIO 2238) LIPID [id number] 00:00:00 Test Item Value Reference Range Interpretation Comments CHOLESTEROL (test code = 2210) 184 MG/DL TRIGLYCERIDES (test code = 2232) 222 MG/DL HDL CHOLESTEROL (test code = 2220) 52 MG/DL CALC LDL CHOL (test code = 2237) 98 MG/DL RISK RATIO LDL/HDL (test code = 1.88 RATIO 2238) HEMOGLOBIN [id number] 00:00:00 Test Item Value Reference Range Interpretation Comments HEMOGLOBIN A1c (test code = 20602) 8.4 % HEMOGLOBIN [id number] 00:00:00 Test Item Value Reference Range Interpretation Comments HEMOGLOBIN A1c (test code = 29694) 8.4 % HEMOGLOBIN [id number] 00:00:00 Test Item Value Reference Range Interpretation Comments HEMOGLOBIN A1c (test code = 03557) 8.4 % COMPREHENSIVE METABOLIC [id number] 00:00:00 Test Item Value Reference Range Interpretation Comments GLUCOSE (test code = 2217) 204 MG/DL BUN (test code = 2208) 26 MG/DL CREATININE (test code = 2214) 1.21 MG/DL eGFR AMER. (test code 52 ML/MIN/1.73 = 92005) eGFR NON- AMER. (test 45 ML/MIN/1.73 code = 56406) CALC BUN/CREAT (test code = 21 RATIO [...] code = 2219) 8 U/L COMPREHENSIVE METABOLIC [id number] 00:00:00 Test Item Value Reference Range Interpretation Comments GLUCOSE (test code = 2217) 204 MG/DL BUN (test code = 2208) 26 MG/DL CREATININE (test code = 2214) 1.21 MG/DL eGFR AMER. (test code 52 ML/MIN/1.73 = 90278) eGFR NON- AMER. (test 45 ML/MIN/1.73 code = 70195) CALC BUN/CREAT (test code = 21 RATIO [...] ALT (test code = 2219) 8 U/L MICROALBUMIN/CREATININE, RANDOM AND [id number] 00:00:00 Test Item Value Reference Range Interpretation Comments CREATININE, URINE, CONC. (test 190.3 MG/DL code = 2072) ALBUMIN, URINE, RANDOM (test code 135.3 MG/DL = 98575) CALC ALBUMIN/CREAT, RND (test 711 MG/G code = 25069) MICROALBUMIN/CREATININE, RANDOM AND [id number] 00:00:00 Test Item Value Reference Range Interpretation Comments CREATININE, URINE, CONC. (test 190.3 MG/DL code = 2072) ALBUMIN, URINE, RANDOM (test code 135.3 MG/DL = 29005) CALC ALBUMIN/CREAT, RND (test 711 MG/G code = 72868) MICROALBUMIN/CREATININE, RANDOM AND [id number] 00:00:00 Test Item Value Reference Range Interpretation Comments CREATININE, URINE, CONC. (test 190.3 MG/DL code = 2072) ALBUMIN, URINE, RANDOM (test code 135.3 MG/DL = 34244) CALC ALBUMIN/CREAT, RND (test 711 MG/G code = 41004) MICROALBUMIN/CREATININE, RANDOM AND [id number] 00:00:00 Test Item Value Reference Range Interpretation Comments CREATININE, URINE, CONC. (test 190.3 MG/DL code = 2072) ALBUMIN, URINE, RANDOM (test code 135.3 MG/DL = 70656) CALC ALBUMIN/CREAT, RND (test 711 MG/G code = 76373) MICROALBUMIN/CREATININE, RANDOM AND [id number] 00:00:00 Test Item Value Reference Range Interpretation Comments CREATININE, URINE, CONC. (test 190.3 MG/DL code = 2072) ALBUMIN, URINE, RANDOM (test code 135.3 MG/DL = 52246) CALC ALBUMIN/CREAT, RND (test 711 MG/G code = 16769) MICROALBUMIN/CREATININE, RANDOM AND [id number] 00:00:00 Test Item Value Reference Range Interpretation Comments CREATININE, URINE, CONC. (test 190.3 MG/DL code = 2072) ALBUMIN, URINE, RANDOM (test code 135.3 MG/DL = 21380) CALC ALBUMIN/CREAT, RND (test 711 MG/G code = 26104) MICROALBUMIN/CREATININE, RANDOM AND [id number] 00:00:00 Test Item Value Reference Range Interpretation Comments CREATININE, URINE, CONC. (test 190.3 MG/DL code = 2072) ALBUMIN, URINE, RANDOM (test code 135.3 MG/DL = 07095) CALC ALBUMIN/CREAT, RND (test 711 MG/G code = 67487) MICROALBUMIN/CREATININE, RANDOM AND [id number] 00:00:00 Test Item Value Reference Range Interpretation Comments CREATININE, URINE, CONC. (test 190.3 MG/DL code = 2072) ALBUMIN, URINE, RANDOM (test code 135.3 MG/DL = 48165) CALC ALBUMIN/CREAT, RND (test 711 MG/G code = 15351) COMPREHENSIVE METABOLIC [id number] 00:00:00 Test Item Value Reference Range Interpretation Comments GLUCOSE (test code = 2217) 103 MG/DL BUN (test code = 2208) 25 MG/DL CREATININE (test code = 2214) 1.30 MG/DL eGFR AMER. (test code 48 ML/MIN/1.73 = 71388) eGFR NON- AMER. (test 41 ML/MIN/1.73 code = 87878) CALC BUN/CREAT (test code = 19 RATIO 2235) SODIUM (test code = 2231) 141 MEQ/L POTASSIUM (test code = 2228) 5.0 MEQ/L CHLORIDE (test code = 2215) 104 MEQ/L CARBON DIOXIDE (test code = 21 MEQ/L 220) CALCIUM (test code = 2209) 10.3 MG/DL [...] code = 2219) 12 U/L COMPREHENSIVE METABOLIC [id number] 00:00:00 Test Item Value Reference Range Interpretation Comments GLUCOSE (test code = 2217) 103 MG/DL BUN (test code = 2208) 25 MG/DL CREATININE (test code = 2214) 1.30 MG/DL eGFR AMER. (test code 48 ML/MIN/1.73 = 08459) eGFR NON- AMER. (test 41 ML/MIN/1.73 code = 07827) CALC BUN/CREAT (test code = 19 RATIO 2235) SODIUM (test code = 2231) 141 MEQ/L POTASSIUM (test code = 2228) 5.0 MEQ/L CHLORIDE (test code = 2215) 104 MEQ/L CARBON DIOXIDE (test code = 21 MEQ/L 2206) CALCIUM (test code = 2209) 10.3 MG/DL [...] (test code = 2219) 12 U/L HEMOGLOBIN [id number] 00:00:00 Test Item Value Reference Range Interpretation Comments HEMOGLOBIN A1c (test code = 19073) 7.9 % HEMOGLOBIN [id number] 00:00:00 Test Item Value Reference Range Interpretation Comments HEMOGLOBIN A1c (test code = 18611) 7.9 % LIPID [id number] 00:00:00 Test Item Value Reference Range Interpretation Comments CHOLESTEROL (test code = 2210) 227 MG/DL TRIGLYCERIDES (test code = 2232) 165 MG/DL HDL CHOLESTEROL (test code = 2220) 58 MG/DL CALC LDL CHOL (test code = 2237) 139 MG/DL RISK RATIO LDL/HDL (test code = 2.40 RATIO 2238) COMPREHENSIVE METABOLIC [id number] 00:00:00 Test Item Value Reference Range Interpretation Comments GLUCOSE (test code = 2217) 103 MG/DL BUN (test code = 2208) 25 MG/DL CREATININE (test code = 2214) 1.30 MG/DL eGFR AMER. (test code 48 ML/MIN/1.73 = 22113) eGFR NON- AMER. (test 41 ML/MIN/1.73 code = 22568) CALC BUN/CREAT (test code = 19 RATIO [...] (test code = 2219) 12 U/L HEMOGLOBIN [id number] 00:00:00 Test Item Value Reference Range Interpretation Comments HEMOGLOBIN A1c (test code = 66801) 7.9 % HEMOGLOBIN [id number] 00:00:00 Test Item Value Reference Range Interpretation Comments HEMOGLOBIN A1c (test code = 13091) 7.9 % LIPID [id number] 00:00:00 Test Item Value Reference Range Interpretation Comments CHOLESTEROL (test code = 2210) 227 MG/DL TRIGLYCERIDES (test code = 2232) 165 MG/DL HDL CHOLESTEROL (test code = 2220) 58 MG/DL CALC LDL CHOL (test code = 2237) 139 MG/DL RISK RATIO LDL/HDL (test code = 2.40 RATIO 2238) COMPREHENSIVE METABOLIC [id number] 00:00:00 Test Item Value Reference Range Interpretation Comments GLUCOSE (test code = 2217) 103 MG/DL BUN (test code = 2208) 25 MG/DL CREATININE (test code = 2214) 1.30 MG/DL eGFR AMER. (test code 48 ML/MIN/1.73 = 97204) eGFR NON- AMER. (test 41 ML/MIN/1.73 code = 06281) CALC BUN/CREAT (test code = 19 RATIO [...] (test code = 2219) 12 U/L HEMOGLOBIN [id number] 00:00:00 Test Item Value Reference Range Interpretation Comments HEMOGLOBIN A1c (test code = 37728) 7.9 % HEMOGLOBIN [id number] 00:00:00 Test Item Value Reference Range Interpretation Comments HEMOGLOBIN A1c (test code = 67846) 7.9 % HEMOGLOBIN [id number] 00:00:00 Test Item Value Reference Range Interpretation Comments HEMOGLOBIN A1c (test code = 15587) 7.9 % LIPID [id number] 00:00:00 Test Item Value Reference Range Interpretation Comments CHOLESTEROL (test code = 2210) 227 MG/DL TRIGLYCERIDES (test code = 2232) 165 MG/DL HDL CHOLESTEROL (test code = 2220) 58 MG/DL CALC LDL CHOL (test code = 2237) 139 MG/DL RISK RATIO LDL/HDL (test code = 2.40 RATIO 2238) LIPID [id number] 00:00:00 Test Item Value Reference Range Interpretation Comments CHOLESTEROL (test code = 2210) 227 MG/DL TRIGLYCERIDES (test code = 2232) 165 MG/DL HDL CHOLESTEROL (test code = 2220) 58 MG/DL CALC LDL CHOL (test code = 2237) 139 MG/DL RISK RATIO LDL/HDL (test code = 2.40 RATIO 2238) COMPREHENSIVE METABOLIC [id number] 00:00:00 Test Item Value Reference Range Interpretation Comments GLUCOSE (test code = 2217) 103 MG/DL BUN (test code = 2208) 25 MG/DL CREATININE (test code = 2214) 1.30 MG/DL eGFR AMER. (test code 48 ML/MIN/1.73 = 96188) eGFR NON- AMER. (test 41 ML/MIN/1.73 code = 91016) CALC BUN/CREAT (test code = 19 RATIO 2235) SODIUM (test code = 2231) 141 MEQ/L POTASSIUM (test code = 2228) 5.0 MEQ/L CHLORIDE (test code = 2215) 104 MEQ/L CARBON DIOXIDE (test code = 21 MEQ/L 2205) CALCIUM (test code = 2209) 10.3 MG/DL PROTEIN, TOTAL (test code = 8.1 G/DL 2228) ALBUMIN (test code = 220) 4.5 G/DL CALC GLOBULIN (test code = 3.6 G/DL 2239) CALC A/G RATIO (test code = 1.3 RATIO 2234) BILIRUBIN, TOTAL (test code = 0.4 MG/DL 2206) ALKALINE PHOSPHATASE (test 79 U/L code = 2204) AST (test code = 2218) 16 U/L ALT (test code = 2219) 12 U/L COMPREHENSIVE METABOLIC [id number] 00:00:00 Test Item Value Reference Range Interpretation Comments GLUCOSE (test code = 2217) 103 MG/DL BUN (test code = 2208) 25 MG/DL CREATININE (test code = 2214) 1.30 MG/DL eGFR AMER. (test code 48 ML/MIN/1.73 = 29676) eGFR NON- AMER. (test 41 ML/MIN/1.73 code = 25825) CALC BUN/CREAT (test code = 19 RATIO [...] (test code = 2219) 12 U/L HEMOGLOBIN [id number] 00:00:00 Test Item Value Reference Range Interpretation Comments HEMOGLOBIN A1c (test code = 14759) 7.9 % HEMOGLOBIN [id number] 00:00:00 Test Item Value Reference Range Interpretation Comments HEMOGLOBIN A1c (test code = 33986) 7.9 % HEMOGLOBIN [id number] 00:00:00 Test Item Value Reference Range Interpretation Comments HEMOGLOBIN A1c (test code = 79317) 7.9 % LIPID [id number] 00:00:00 Test Item Value Reference Range Interpretation Comments CHOLESTEROL (test code = 2210) 227 MG/DL TRIGLYCERIDES (test code = 2232) 165 MG/DL HDL CHOLESTEROL (test code = 2220) 58 MG/DL CALC LDL CHOL (test code = 2237) 139 MG/DL RISK RATIO LDL/HDL (test code = 2.40 RATIO 2238) LIPID [id number] 00:00:00 Test Item Value Reference Range Interpretation Comments CHOLESTEROL (test code = 2210) 227 MG/DL TRIGLYCERIDES (test code = 2232) 165 MG/DL HDL CHOLESTEROL (test code = 2220) 58 MG/DL CALC LDL CHOL (test code = 2237) 139 MG/DL RISK RATIO LDL/HDL (test code = 2.40 RATIO 2238) COMPREHENSIVE METABOLIC [id number] 00:00:00 Test Item Value Reference Range Interpretation Comments GLUCOSE (test code = 2217) 103 MG/DL BUN (test code = 2208) 25 MG/DL CREATININE (test code = 2214) 1.30 MG/DL eGFR AMER. (test code 48 ML/MIN/1.73 = 61079) eGFR NON- AMER. (test 41 ML/MIN/1.73 code = 93366) CALC BUN/CREAT (test code = 19 RATIO [...] code = 2219) 12 U/L COMPREHENSIVE METABOLIC [id number] 00:00:00 Test Item Value Reference Range Interpretation Comments GLUCOSE (test code = 2217) 103 MG/DL BUN (test code = 2208) 25 MG/DL CREATININE (test code = 2214) 1.30 MG/DL eGFR AMER. (test code 48 ML/MIN/1.73 = 51099) eGFR NON- AMER. (test 41 ML/MIN/1.73 code = 10563) CALC BUN/CREAT (test code = 19 RATIO [...] (test code = 2219) 12 U/L HEMOGLOBIN [id number] 00:00:00 Test Item Value Reference Range Interpretation Comments HEMOGLOBIN A1c (test code = 22349) 7.9 % HEMOGLOBIN [id number] 00:00:00 Test Item Value Reference Range Interpretation Comments HEMOGLOBIN A1c (test code = 43055) 7.9 % HEMOGLOBIN [id number] 00:00:00 Test Item Value Reference Range Interpretation Comments HEMOGLOBIN A1c (test code = 74065) 7.9 % LIPID [id number] 00:00:00 Test Item Value Reference Range Interpretation Comments CHOLESTEROL (test code = 2210) 227 MG/DL TRIGLYCERIDES (test code = 2232) 165 MG/DL HDL CHOLESTEROL (test code = 2220) 58 MG/DL CALC LDL CHOL (test code = 2237) 139 MG/DL RISK RATIO LDL/HDL (test code = 2.40 RATIO 2238) LIPID [id number] 00:00:00 Test Item Value Reference Range Interpretation Comments CHOLESTEROL (test code = 2210) 227 MG/DL TRIGLYCERIDES (test code = 2232) 165 MG/DL HDL CHOLESTEROL (test code = 2220) 58 MG/DL CALC LDL CHOL (test code = 2237) 139 MG/DL RISK RATIO LDL/HDL (test code = 2.40 RATIO 2238) LIPID [id number] 00:00:00 Test Item Value Reference Range Interpretation Comments CHOLESTEROL (test code = 2210) 211 MG/DL TRIGLYCERIDES (test code = 2232) 245 MG/DL HDL CHOLESTEROL (test code = 2220) 52 MG/DL CALC LDL CHOL (test code = 2237) 122 MG/DL RISK RATIO LDL/HDL (test code = 2.35 RATIO 2238) LIPID [id number] 00:00:00 Test Item Value Reference Range Interpretation Comments CHOLESTEROL (test code = 2210) 211 MG/DL TRIGLYCERIDES (test code = 2232) 245 MG/DL HDL CHOLESTEROL (test code = 2220) 52 MG/DL CALC LDL CHOL (test code = 2237) 122 MG/DL RISK RATIO LDL/HDL (test code = 2.35 RATIO 2238) COMPREHENSIVE METABOLIC [id number] 00:00:00 Test Item Value Reference Range Interpretation Comments GLUCOSE (test code = 2217) 138 MG/DL BUN (test code = 2208) 33 MG/DL CREATININE (test code = 2214) 1.25 MG/DL eGFR AMER. (test code 50 ML/MIN/1.73 = 69157) eGFR NON- AMER. (test 43 ML/MIN/1.73 code = 28321) CALC BUN/CREAT (test code = 26 RATIO [...] (test code = 2219) 12 U/L LIPID [id number] 00:00:00 Test Item Value Reference Range Interpretation Comments CHOLESTEROL (test code = 2210) 211 MG/DL TRIGLYCERIDES (test code = 2232) 245 MG/DL HDL CHOLESTEROL (test code = 2220) 52 MG/DL CALC LDL CHOL (test code = 2237) 122 MG/DL RISK RATIO LDL/HDL (test code = 2.35 RATIO 2238) COMPREHENSIVE METABOLIC [id number] 00:00:00 Test Item Value Reference Range Interpretation Comments GLUCOSE (test code = 2217) 138 MG/DL BUN (test code = 2208) 33 MG/DL CREATININE (test code = 2214) 1.25 MG/DL eGFR AMER. (test code 50 ML/MIN/1.73 = 29422) eGFR NON- AMER. (test 43 ML/MIN/1.73 code = 93234) CALC BUN/CREAT (test code = 26 RATIO [...] (test code = 2219) 12 U/L LIPID [id number] 00:00:00 Test Item Value Reference Range Interpretation Comments CHOLESTEROL (test code = 2210) 211 MG/DL TRIGLYCERIDES (test code = 2232) 245 MG/DL HDL CHOLESTEROL (test code = 2220) 52 MG/DL CALC LDL CHOL (test code = 2237) 122 MG/DL RISK RATIO LDL/HDL (test code = 2.35 RATIO 2238) COMPREHENSIVE METABOLIC [id number] 00:00:00 Test Item Value Reference Range Interpretation Comments GLUCOSE (test code = 2217) 138 MG/DL BUN (test code = 2208) 33 MG/DL CREATININE (test code = 2214) 1.25 MG/DL eGFR AMER. (test code 50 ML/MIN/1.73 = 95487) eGFR NON- AMER. (test 43 ML/MIN/1.73 code = 71008) CALC BUN/CREAT (test code = 26 RATIO [...] code = 2219) 12 U/L COMPREHENSIVE METABOLIC [id number] 00:00:00 Test Item Value Reference Range Interpretation Comments GLUCOSE (test code = 2217) 138 MG/DL BUN (test code = 2208) 33 MG/DL CREATININE (test code = 2214) 1.25 MG/DL eGFR AMER. (test code 50 ML/MIN/1.73 = 97959) eGFR NON- AMER. (test 43 ML/MIN/1.73 code = 29864) CALC BUN/CREAT (test code = 26 RATIO [...] (test code = 2219) 12 U/L LIPID [id number] 00:00:00 Test Item Value Reference Range Interpretation Comments CHOLESTEROL (test code = 2210) 211 MG/DL TRIGLYCERIDES (test code = 2232) 245 MG/DL HDL CHOLESTEROL (test code = 2220) 52 MG/DL CALC LDL CHOL (test code = 2237) 122 MG/DL RISK RATIO LDL/HDL (test code = 2.35 RATIO 2238) LIPID [id number] 00:00:00 Test Item Value Reference Range Interpretation Comments CHOLESTEROL (test code = 2210) 211 MG/DL TRIGLYCERIDES (test code = 2232) 245 MG/DL HDL CHOLESTEROL (test code = 2220) 52 MG/DL CALC LDL CHOL (test code = 2237) 122 MG/DL RISK RATIO LDL/HDL (test code = 2.35 RATIO 2238) COMPREHENSIVE METABOLIC [id number] 00:00:00 Test Item Value Reference Range Interpretation Comments GLUCOSE (test code = 2217) 138 MG/DL BUN (test code = 2208) 33 MG/DL CREATININE (test code = 2214) 1.25 MG/DL eGFR AMER. (test code 50 ML/MIN/1.73 = 49118) eGFR NON- AMER. (test 43 ML/MIN/1.73 code = 05683) CALC BUN/CREAT (test code = 26 RATIO [...] code = 2219) 12 U/L COMPREHENSIVE METABOLIC [id number] 00:00:00 Test Item Value Reference Range Interpretation Comments GLUCOSE (test code = 2217) 138 MG/DL BUN (test code = 2208) 33 MG/DL CREATININE (test code = 2214) 1.25 MG/DL eGFR AMER. (test code 50 ML/MIN/1.73 = 79031) eGFR NON- AMER. (test 43 ML/MIN/1.73 code = 03471) CALC BUN/CREAT (test code = 26 RATIO [...] (test code = 2219) 12 U/L LIPID [id number] 00:00:00 Test Item Value Reference Range Interpretation Comments CHOLESTEROL (test code = 2210) 211 MG/DL TRIGLYCERIDES (test code = 2232) 245 MG/DL HDL CHOLESTEROL (test code = 2220) 52 MG/DL CALC LDL CHOL (test code = 2237) 122 MG/DL RISK RATIO LDL/HDL (test code = 2.35 RATIO 2238) LIPID [id number] 00:00:00 Test Item Value Reference Range Interpretation Comments CHOLESTEROL (test code = 2210) 211 MG/DL TRIGLYCERIDES (test code = 2232) 245 MG/DL HDL CHOLESTEROL (test code = 2220) 52 MG/DL CALC LDL CHOL (test code = 2237) 122 MG/DL RISK RATIO LDL/HDL (test code = 2.35 RATIO 2238) COMPREHENSIVE METABOLIC [id number] 00:00:00 Test Item Value Reference Range Interpretation Comments GLUCOSE (test code = 2217) 138 MG/DL BUN (test code = 2208) 33 MG/DL CREATININE (test code = 2214) 1.25 MG/DL eGFR AMER. (test code 50 ML/MIN/1.73 = 99397) eGFR NON- AMER. (test 43 ML/MIN/1.73 code = 44119) CALC BUN/CREAT (test code = 26 RATIO 2235) SODIUM (test code = 2231) 139 MEQ/L POTASSIUM (test code = 2228) 4.9 MEQ/L CHLORIDE (test code = 2215) 104 MEQ/L CARBON DIOXIDE (test code = 23 MEQ/L 2206) CALCIUM (test code = 2209) 9.6 MG/DL PROTEIN, TOTAL (test code = 7.3 G/DL 222) ALBUMIN (test code = 2201) 4.4 G/DL CALC GLOBULIN (test code = 2.9 G/DL 2240) CALC A/G RATIO (test code = 1.5 RATIO 2234) BILIRUBIN, TOTAL (test code = 0.3 MG/DL 2206) ALKALINE PHOSPHATASE (test 85 U/L code = 2204) AST (test code = 2218) 16 U/L ALT (test code = 2219) 12 U/L COMPREHENSIVE METABOLIC [id number] 00:00:00 Test Item Value Reference Range Interpretation Comments GLUCOSE (test code = 2217) 138 MG/DL BUN (test code = 2208) 33 MG/DL CREATININE (test code = 2214) 1.25 MG/DL eGFR AMER. (test code 50 ML/MIN/1.73 = 19539) eGFR NON- AMER. (test 43 ML/MIN/1.73 code = 70263) CALC BUN/CREAT (test code = 26 RATIO [...] (test code = 2219) 12 U/L HEMOGLOBIN [id number] 00:00:00 Test Item Value Reference Range Interpretation Comments HEMOGLOBIN A1c (test code = 80743) 7.5 % HEMOGLOBIN [id number] 00:00:00 Test Item Value Reference Range Interpretation Comments HEMOGLOBIN A1c (test code = 68259) 7.5 % HEMOGLOBIN [id number] 00:00:00 Test Item Value Reference Range Interpretation Comments HEMOGLOBIN A1c (test code = 85719) 7.5 % HEMOGLOBIN [id number] 00:00:00 Test Item Value Reference Range Interpretation Comments HEMOGLOBIN A1c (test code = 50132) 7.5 % HEMOGLOBIN [id number] 00:00:00 Test Item Value Reference Range Interpretation Comments HEMOGLOBIN A1c (test code = 82695) 7.5 % HEMOGLOBIN [id number] 00:00:00 Test Item Value Reference Range Interpretation Comments HEMOGLOBIN A1c (test code = 22572) 7.5 % HEMOGLOBIN [id number] 00:00:00 Test Item Value Reference Range Interpretation Comments HEMOGLOBIN A1c (test code = 45455) 7.5 % HEMOGLOBIN [id number] 00:00:00 Test Item Value Reference Range Interpretation Comments HEMOGLOBIN A1c (test code = 43169) 7.5 % HEMOGLOBIN [id number] 00:00:00 Test Item Value Reference Range Interpretation Comments HEMOGLOBIN A1c (test code = 48457) 7.5 % HEMOGLOBIN [id number] 00:00:00 Test Item Value Reference Range Interpretation Comments HEMOGLOBIN A1c (test code = 10814) 7.5 % HEMOGLOBIN [id number] 00:00:00 Test Item Value Reference Range Interpretation Comments HEMOGLOBIN A1c (test code = 31067) 7.5 % HEMOGLOBIN [id number] 00:00:00 Test Item Value Reference Range Interpretation Comments HEMOGLOBIN A1c (test code = 09131) 7.5 % HEMOGLOBIN [id number] 00:00:00 Test Item Value Reference Range Interpretation Comments HEMOGLOBIN A1c (test code = 97533) 7.5 % TROPONIN [id number] 00:00:00 Test Item Value Reference Range Interpretation Comments TROPONIN T (test code = 4017) <0.010 UG/L TROPONIN [id number] 00:00:00 Test Item Value Reference Range Interpretation Comments TROPONIN T (test code = 4017) <0.010 UG/L TROPONIN [id number] 00:00:00 Test Item Value Reference Range Interpretation Comments TROPONIN T (test code = 4017) <0.010 UG/L TROPONIN [id number] 00:00:00 Test Item Value Reference Range Interpretation Comments TROPONIN T (test code = 4017) <0.010 UG/L TROPONIN [id number] 00:00:00 Test Item Value Reference Range Interpretation Comments TROPONIN T (test code = 4017) <0.010 UG/L TROPONIN [id number] 00:00:00 Test Item Value Reference Range Interpretation Comments TROPONIN T (test code = 4017) <0.010 UG/L TROPONIN [id number] 00:00:00 Test Item Value Reference Range Interpretation Comments TROPONIN T (test code = 4017) <0.010 UG/L TROPONIN [id number] 00:00:00 Test Item Value Reference Range Interpretation Comments TROPONIN T (test code = 4017) <0.010 UG/L CK, [id number] 00:00:00 Test Item Value Reference Range Interpretation Comments CK, TOTAL (test code = 2014) 67 U/L COMPREHENSIVE METABOLIC [id number] 00:00:00 Test Item Value Reference Range Interpretation Comments GLUCOSE (test code = 2217) 68 MG/DL BUN (test code = 2208) 31 MG/DL CREATININE (test code = 2214) 1.10 MG/DL eGFR AMER. (test code 59 ML/MIN/1.73 = 99824) eGFR NON- AMER. (test 51 ML/MIN/1.73 code = 71477) CALC BUN/CREAT (test code = 28 RATIO [...] A/G RATIO (test code = 1.6 RATIO 223) BILIRUBIN, TOTAL (test code = 0.3 MG/DL 2207) ALKALINE PHOSPHATASE (test 80 U/L code = 2204) AST (test code = 2218) 18 U/L ALT (test code = 2219) 9 U/L CBC W/AUTO [id number] 00:00:00 Test Item Value Reference Range Interpretation [...] code = 1015) 249 K/UL CBC W/AUTO [id number] 00:00:00 Test Item Value Reference Range Interpretation [...] (test code = 1015) 249 K/UL CK, [id number] 00:00:00 Test Item Value Reference Range Interpretation Comments CK, TOTAL (test code = 2013) 67 U/L COMPREHENSIVE METABOLIC [id number] 00:00:00 Test Item Value Reference Range Interpretation Comments GLUCOSE (test code = 2217) 68 MG/DL BUN (test code = 2208) 31 MG/DL CREATININE (test code = 2214) 1.10 MG/DL eGFR AMER. (test code 59 ML/MIN/1.73 = 44355) eGFR NON- AMER. (test 51 ML/MIN/1.73 code = 29275) CALC BUN/CREAT (test code = 28 RATIO [...] code = 2219) 9 U/L CBC W/AUTO [id number] 00:00:00 Test Item Value Reference Range Interpretation [...] code = 1015) 249 K/UL CBC W/AUTO [id number] 00:00:00 Test Item Value Reference Range Interpretation [...] (test code = 1015) 249 K/UL CK, [id number] 00:00:00 Test Item Value Reference Range Interpretation Comments CK, TOTAL (test code = 2013) 67 U/L COMPREHENSIVE METABOLIC [id number] 00:00:00 Test Item Value Reference Range Interpretation Comments GLUCOSE (test code = 2217) 68 MG/DL BUN (test code = 2208) 31 MG/DL CREATININE (test code = 2214) 1.10 MG/DL eGFR AMER. (test code 59 ML/MIN/1.73 = 49354) eGFR NON- AMER. (test 51 ML/MIN/1.73 code = 70642) CALC BUN/CREAT (test code = 28 RATIO [...] code = 2219) 9 U/L COMPREHENSIVE METABOLIC [id number] 00:00:00 Test Item Value Reference Range Interpretation Comments GLUCOSE (test code = 2217) 68 MG/DL BUN (test code = 2208) 31 MG/DL CREATININE (test code = 2214) 1.10 MG/DL eGFR AMER. (test code 59 ML/MIN/1.73 = 02005) eGFR NON- AMER. (test 51 ML/MIN/1.73 code = 27888) CALC BUN/CREAT (test code = 28 RATIO [...] code = 2219) 9 U/L CBC W/AUTO [id number] 00:00:00 Test Item Value Reference Range Interpretation [...] code = 1015) 249 K/UL CBC W/AUTO [id number] 00:00:00 Test Item Value Reference Range Interpretation [...] code = 1015) 249 K/UL CBC W/AUTO [id number] 00:00:00 Test Item Value Reference Range Interpretation [...] (test code = 1015) 249 K/UL CK, [id number] 00:00:00 Test Item Value Reference Range Interpretation Comments CK, TOTAL (test code = 2013) 67 U/L CK, [id number] 00:00:00 Test Item Value Reference Range Interpretation Comments CK, TOTAL (test code = 2013) 67 U/L COMPREHENSIVE METABOLIC [id number] 00:00:00 Test Item Value Reference Range Interpretation Comments GLUCOSE (test code = 2217) 68 MG/DL BUN (test code = 2208) 31 MG/DL CREATININE (test code = 2214) 1.10 MG/DL eGFR AMER. (test code 59 ML/MIN/1.73 = 65556) eGFR NON- AMER. (test 51 ML/MIN/1.73 code = 25110) CALC BUN/CREAT (test code = 28 RATIO [...] code = 2219) 9 U/L COMPREHENSIVE METABOLIC [id number] 00:00:00 Test Item Value Reference Range Interpretation Comments GLUCOSE (test code = 2217) 68 MG/DL BUN (test code = 2208) 31 MG/DL CREATININE (test code = 2214) 1.10 MG/DL eGFR AMER. (test code 59 ML/MIN/1.73 = 84598) eGFR NON- AMER. (test 51 ML/MIN/1.73 code = 94252) CALC BUN/CREAT (test code = 28 RATIO [...] code = 2219) 9 U/L CBC W/AUTO [id number] 00:00:00 Test Item Value Reference Range Interpretation [...] code = 1015) 249 K/UL CBC W/AUTO [id number] 00:00:00 Test Item Value Reference Range Interpretation [...] code = 1015) 249 K/UL CBC W/AUTO [id number] 00:00:00 Test Item Value Reference Range Interpretation [...] (test code = 1015) 249 K/UL CK, [id number] 00:00:00 Test Item Value Reference Range Interpretation Comments CK, TOTAL (test code = 2013) 67 U/L CK, [id number] 00:00:00 Test Item Value Reference Range Interpretation Comments CK, TOTAL (test code = 2013) 67 U/L COMPREHENSIVE METABOLIC [id number] 00:00:00 Test Item Value Reference Range Interpretation Comments GLUCOSE (test code = 2217) 68 MG/DL BUN (test code = 2208) 31 MG/DL CREATININE (test code = 2214) 1.10 MG/DL eGFR AMER. (test code 59 ML/MIN/1.73 = 22424) eGFR NON- AMER. (test 51 ML/MIN/1.73 code = 29647) CALC BUN/CREAT (test code = 28 RATIO [...] code = 2219) 9 U/L COMPREHENSIVE METABOLIC [id number] 00:00:00 Test Item Value Reference Range Interpretation Comments GLUCOSE (test code = 2217) 68 MG/DL BUN (test code = 2208) 31 MG/DL CREATININE (test code = 2214) 1.10 MG/DL eGFR AMER. (test code 59 ML/MIN/1.73 = 95986) eGFR NON- AMER. (test 51 ML/MIN/1.73 code = 95617) CALC BUN/CREAT (test code = 28 RATIO [...] code = 2219) 9 U/L CBC W/AUTO [id number] 00:00:00 Test Item Value Reference Range Interpretation [...] code = 1015) 249 K/UL CBC W/AUTO [id number] 00:00:00 Test Item Value Reference Range Interpretation [...] code = 1015) 249 K/UL CBC W/AUTO [id number] 00:00:00 Test Item Value Reference Range Interpretation [...] (test code = 1015) 249 K/UL CK, [id number] 00:00:00 Test Item Value Reference Range Interpretation Comments CK, TOTAL (test code = 2013) 67 U/L VITAMIN [id number] 00:00:00 Test Item Value Reference Range Interpretation Comments VITAMIN B-12 (test code = 2840) 528 PG/ML HEMOGLOBIN [id number] 00:00:00 Test Item Value Reference Range Interpretation Comments HEMOGLOBIN A1c (test code = 55601) 7.4 % HEMOGLOBIN [id number] 00:00:00 Test Item Value Reference Range Interpretation Comments HEMOGLOBIN A1c (test code = 55042) 7.4 % HEMOGLOBIN [id number] 00:00:00 Test Item Value Reference Range Interpretation Comments HEMOGLOBIN A1c (test code = 21846) 7.4 % LIPID PANEL WITH REFLEX DIRECT [id number] 00:00:00 Test Item Value Reference Range Interpretation Comments CHOLESTEROL (test code = 2210) 211 MG/DL TRIGLYCERIDES (test code = 2232) 257 MG/DL HDL CHOLESTEROL (test code = 2220) 54 MG/DL CALC LDL CHOL (test code = 2237) 106 MG/DL RISK RATIO LDL/HDL (test code = 1.96 RATIO 2238) LIPID PANEL WITH REFLEX DIRECT [id number] 00:00:00 Test Item Value Reference Range Interpretation Comments CHOLESTEROL (test code = 2210) 211 MG/DL TRIGLYCERIDES (test code = 2232) 257 MG/DL HDL CHOLESTEROL (test code = 2220) 54 MG/DL CALC LDL CHOL (test code = 2237) 106 MG/DL RISK RATIO LDL/HDL (test code = 1.96 RATIO 2238) COMPREHENSIVE METABOLIC [id number] 00:00:00 Test Item Value Reference Range Interpretation Comments GLUCOSE (test code = 2217) 222 MG/DL BUN (test code = 2208) 30 MG/DL CREATININE (test code = 2214) 1.26 MG/DL eGFR AMER. (test code 50 ML/MIN/1.73 = 03284) eGFR NON- AMER. (test 43 ML/MIN/1.73 code = 40312) CALC BUN/CREAT (test code = 24 RATIO [...] code = 2219) 10 U/L COMPREHENSIVE METABOLIC [id number] 00:00:00 Test Item Value Reference Range Interpretation Comments GLUCOSE (test code = 2217) 222 MG/DL BUN (test code = 2208) 30 MG/DL CREATININE (test code = 2214) 1.26 MG/DL eGFR AMER. (test code 50 ML/MIN/1.73 = 69564) eGFR NON- AMER. (test 43 ML/MIN/1.73 code = 59078) CALC BUN/CREAT (test code = 24 RATIO [...] ALT (test code = 2219) 10 U/L [id number] 00:00:00 Test Item Value Reference Range Interpretation Comments TSH, THIRD GENERATION (test code 3.230 UIU/ML = 2821) [id number] 00:00:00 Test Item Value Reference Range Interpretation Comments TSH, THIRD GENERATION (test code 3.230 UIU/ML = 2821) CBC W/AUTO [id number] 00:00:00 Test Item Value Reference Range Interpretation [...] code = 1015) 277 K/UL CBC W/AUTO [id number] 00:00:00 Test Item Value Reference Range Interpretation [...] (test code = 1015) 277 K/UL VITAMIN [id number] 00:00:00 Test Item Value Reference Range Interpretation Comments VITAMIN B-12 (test code = 2840) 528 PG/ML VITAMIN [id number] 00:00:00 Test Item Value Reference Range Interpretation Comments VITAMIN B-12 (test code = 2840) 528 PG/ML HEMOGLOBIN [id number] 00:00:00 Test Item Value Reference Range Interpretation Comments HEMOGLOBIN A1c (test code = 63055) 7.4 % HEMOGLOBIN [id number] 00:00:00 Test Item Value Reference Range Interpretation Comments HEMOGLOBIN A1c (test code = 64854) 7.4 % LIPID PANEL WITH REFLEX DIRECT [id number] 00:00:00 Test Item Value Reference Range Interpretation Comments CHOLESTEROL (test code = 2210) 211 MG/DL TRIGLYCERIDES (test code = 2232) 257 MG/DL HDL CHOLESTEROL (test code = 2220) 54 MG/DL CALC LDL CHOL (test code = 2237) 106 MG/DL RISK RATIO LDL/HDL (test code = 1.96 RATIO 2238) COMPREHENSIVE METABOLIC [id number] 00:00:00 Test Item Value Reference Range Interpretation Comments GLUCOSE (test code = 2217) 222 MG/DL BUN (test code = 2208) 30 MG/DL CREATININE (test code = 2214) 1.26 MG/DL eGFR AMER. (test code 50 ML/MIN/1.73 = 14232) eGFR NON- AMER. (test 43 ML/MIN/1.73 code = 51420) CALC BUN/CREAT (test code = 24 RATIO [...] ALT (test code = 2219) 10 U/L [id number] 00:00:00 Test Item Value Reference Range Interpretation Comments TSH, THIRD GENERATION (test code 3.230 UIU/ML = 2821) [id number] 00:00:00 Test Item Value Reference Range Interpretation Comments TSH, THIRD GENERATION (test code 3.230 UIU/ML = 2821) CBC W/AUTO [id number] 00:00:00 Test Item Value Reference Range Interpretation [...] code = 1015) 277 K/UL CBC W/AUTO [id number] 00:00:00 Test Item Value Reference Range Interpretation [...] (test code = 1015) 277 K/UL VITAMIN [id number] 00:00:00 Test Item Value Reference Range Interpretation Comments VITAMIN B-12 (test code = 2840) 528 PG/ML VITAMIN [id number] 00:00:00 Test Item Value Reference Range Interpretation Comments VITAMIN B-12 (test code = 2840) 528 PG/ML HEMOGLOBIN [id number] 00:00:00 Test Item Value Reference Range Interpretation Comments HEMOGLOBIN A1c (test code = 63458) 7.4 % HEMOGLOBIN [id number] 00:00:00 Test Item Value Reference Range Interpretation Comments HEMOGLOBIN A1c (test code = 56128) 7.4 % LIPID PANEL WITH REFLEX DIRECT [id number] 00:00:00 Test Item Value Reference Range Interpretation Comments CHOLESTEROL (test code = 2210) 211 MG/DL TRIGLYCERIDES (test code = 2232) 257 MG/DL HDL CHOLESTEROL (test code = 2220) 54 MG/DL CALC LDL CHOL (test code = 2237) 106 MG/DL RISK RATIO LDL/HDL (test code = 1.96 RATIO 2238) COMPREHENSIVE METABOLIC [id number] 00:00:00 Test Item Value Reference Range Interpretation Comments GLUCOSE (test code = 2217) 222 MG/DL BUN (test code = 2208) 30 MG/DL CREATININE (test code = 2214) 1.26 MG/DL eGFR AMER. (test code 50 ML/MIN/1.73 = 10284) eGFR NON- AMER. (test 43 ML/MIN/1.73 code = 99521) CALC BUN/CREAT (test code = 24 RATIO [...] ALT (test code = 2219) 10 U/L [id number] 00:00:00 Test Item Value Reference Range Interpretation Comments TSH, THIRD GENERATION (test code 3.230 UIU/ML = 2821) [id number] 00:00:00 Test Item Value Reference Range Interpretation Comments TSH, THIRD GENERATION (test code 3.230 UIU/ML = 2821) [id number] 00:00:00 Test Item Value Reference Range Interpretation Comments TSH, THIRD GENERATION (test code 3.230 UIU/ML = 2821) CBC W/AUTO [id number] 00:00:00 Test Item Value Reference Range Interpretation [...] code = 1015) 277 K/UL CBC W/AUTO [id number] 00:00:00 Test Item Value Reference Range Interpretation [...] code = 1015) 277 K/UL CBC W/AUTO [id number] 00:00:00 Test Item Value Reference Range Interpretation [...] (test code = 1015) 277 K/UL VITAMIN [id number] 00:00:00 Test Item Value Reference Range Interpretation Comments VITAMIN B-12 (test code = 2840) 528 PG/ML VITAMIN [id number] 00:00:00 Test Item Value Reference Range Interpretation Comments VITAMIN B-12 (test code = 2840) 528 PG/ML VITAMIN [id number] 00:00:00 Test Item Value Reference Range Interpretation Comments VITAMIN B-12 (test code = 2840) 528 PG/ML HEMOGLOBIN [id number] 00:00:00 Test Item Value Reference Range Interpretation Comments HEMOGLOBIN A1c (test code = 32731) 7.4 % HEMOGLOBIN [id number] 00:00:00 Test Item Value Reference Range Interpretation Comments HEMOGLOBIN A1c (test code = 65030) 7.4 % HEMOGLOBIN [id number] 00:00:00 Test Item Value Reference Range Interpretation Comments HEMOGLOBIN A1c (test code = 13622) 7.4 % LIPID PANEL WITH REFLEX DIRECT [id number] 00:00:00 Test Item Value Reference Range Interpretation Comments CHOLESTEROL (test code = 2210) 211 MG/DL TRIGLYCERIDES (test code = 2232) 257 MG/DL HDL CHOLESTEROL (test code = 2220) 54 MG/DL CALC LDL CHOL (test code = 2237) 106 MG/DL RISK RATIO LDL/HDL (test code = 1.96 RATIO 2238) LIPID PANEL WITH REFLEX DIRECT [id number] 00:00:00 Test Item Value Reference Range Interpretation Comments CHOLESTEROL (test code = 2210) 211 MG/DL TRIGLYCERIDES (test code = 2232) 257 MG/DL HDL CHOLESTEROL (test code = 2220) 54 MG/DL CALC LDL CHOL (test code = 2237) 106 MG/DL RISK RATIO LDL/HDL (test code = 1.96 RATIO 2238) COMPREHENSIVE METABOLIC [id number] 00:00:00 Test Item Value Reference Range Interpretation Comments GLUCOSE (test code = 2217) 222 MG/DL BUN (test code = 2208) 30 MG/DL CREATININE (test code = 2214) 1.26 MG/DL eGFR AMER. (test code 50 ML/MIN/1.73 = 82059) eGFR NON- AMER. (test 43 ML/MIN/1.73 code = 07238) CALC BUN/CREAT (test code = 24 RATIO [...] code = 2219) 10 U/L COMPREHENSIVE METABOLIC [id number] 00:00:00 Test Item Value Reference Range Interpretation Comments GLUCOSE (test code = 2217) 222 MG/DL BUN (test code = 2208) 30 MG/DL CREATININE (test code = 2214) 1.26 MG/DL eGFR AMER. (test code 50 ML/MIN/1.73 = 56820) eGFR NON- AMER. (test 43 ML/MIN/1.73 code = 19773) CALC BUN/CREAT (test code = 24 RATIO [...] ALT (test code = 2219) 10 U/L [id number] 00:00:00 Test Item Value Reference Range Interpretation Comments TSH, THIRD GENERATION (test code 3.230 UIU/ML = 2821) [id number] 00:00:00 Test Item Value Reference Range Interpretation Comments TSH, THIRD GENERATION (test code 3.230 UIU/ML = 2821) [id number] 00:00:00 Test Item Value Reference Range Interpretation Comments TSH, THIRD GENERATION (test code 3.230 UIU/ML = 2821) CBC W/AUTO [id number] 00:00:00 Test Item Value Reference Range Interpretation [...] code = 1015) 277 K/UL CBC W/AUTO [id number] 00:00:00 Test Item Value Reference Range Interpretation [...] code = 1015) 277 K/UL CBC W/AUTO [id number] 00:00:00 Test Item Value Reference Range Interpretation [...] (test code = 1015) 277 K/UL VITAMIN [id number] 00:00:00 Test Item Value Reference Range Interpretation Comments VITAMIN B-12 (test code = 2840) 528 PG/ML VITAMIN [id number] 00:00:00 Test Item Value Reference Range Interpretation Comments VITAMIN B-12 (test code = 2840) 528 PG/ML VITAMIN [id number] 00:00:00 Test Item Value Reference Range Interpretation Comments VITAMIN B-12 (test code = 2840) 528 PG/ML HEMOGLOBIN [id number] 00:00:00 Test Item Value Reference Range Interpretation Comments HEMOGLOBIN A1c (test code = 35215) 7.4 % HEMOGLOBIN [id number] 00:00:00 Test Item Value Reference Range Interpretation Comments HEMOGLOBIN A1c (test code = 73802) 7.4 % HEMOGLOBIN [id number] 00:00:00 Test Item Value Reference Range Interpretation Comments HEMOGLOBIN A1c (test code = 52022) 7.4 % LIPID PANEL WITH REFLEX DIRECT [id number] 00:00:00 Test Item Value Reference Range Interpretation Comments CHOLESTEROL (test code = 2210) 211 MG/DL TRIGLYCERIDES (test code = 2232) 257 MG/DL HDL CHOLESTEROL (test code = 2220) 54 MG/DL CALC LDL CHOL (test code = 2237) 106 MG/DL RISK RATIO LDL/HDL (test code = 1.96 RATIO 2238) LIPID PANEL WITH REFLEX DIRECT [id number] 00:00:00 Test Item Value Reference Range Interpretation Comments CHOLESTEROL (test code = 2210) 211 MG/DL TRIGLYCERIDES (test code = 2232) 257 MG/DL HDL CHOLESTEROL (test code = 2220) 54 MG/DL CALC LDL CHOL (test code = 2237) 106 MG/DL RISK RATIO LDL/HDL (test code = 1.96 RATIO 2238) COMPREHENSIVE METABOLIC [id number] 00:00:00 Test Item Value Reference Range Interpretation Comments GLUCOSE (test code = 2217) 222 MG/DL BUN (test code = 2208) 30 MG/DL CREATININE (test code = 2214) 1.26 MG/DL eGFR AMER. (test code 50 ML/MIN/1.73 = 60794) eGFR NON- AMER. (test 43 ML/MIN/1.73 code = 49841) CALC BUN/CREAT (test code = 24 RATIO [...] code = 2219) 10 U/L COMPREHENSIVE METABOLIC [id number] 00:00:00 Test Item Value Reference Range Interpretation Comments GLUCOSE (test code = 2217) 222 MG/DL BUN (test code = 2208) 30 MG/DL CREATININE (test code = 2214) 1.26 MG/DL eGFR AMER. (test code 50 ML/MIN/1.73 = 92891) eGFR NON- AMER. (test 43 ML/MIN/1.73 code = 06212) CALC BUN/CREAT (test code = 24 RATIO 2234) SODIUM (test code = 2231) 139 MEQ/L [...] ALT (test code = 2219) 10 U/L [id number] 00:00:00 Test Item Value Reference Range Interpretation Comments TSH, THIRD GENERATION (test code 3.230 UIU/ML = 2821) [id number] 00:00:00 Test Item Value Reference Range Interpretation Comments TSH, THIRD GENERATION (test code 3.230 UIU/ML = 2821) [id number] 00:00:00 Test Item Value Reference Range Interpretation Comments TSH, THIRD GENERATION (test code 3.230 UIU/ML = 2821) CBC W/AUTO [id number] 00:00:00 Test Item Value Reference Range Interpretation [...] code = 1015) 277 K/UL CBC W/AUTO [id number] 00:00:00 Test Item Value Reference Range Interpretation [...] code = 1015) 277 K/UL CBC W/AUTO [id number] 00:00:00 Test Item Value Reference Range Interpretation [...] (test code = 1015) 277 K/UL VITAMIN [id number] 00:00:00 Test Item Value Reference Range Interpretation Comments VITAMIN B-12 (test code = 2840) 528 PG/ML VITAMIN [id number] 00:00:00 Test Item Value Reference Range Interpretation Comments VITAMIN B-12 (test code = 2840) 528 PG/ML UNLABELLED SPECIMEN [ADDED]2019-05-20 00:00:00 Test Item Value Reference Range Interpretation Comments NOTE: (test code = 38814) UNLABELLED SPECIMEN [ADDED]2019-05-20 00:00:00 Test Item Value Reference Range Interpretation Comments NOTE: (test code = 93220) UNLABELLED SPECIMEN [ADDED]2019-05-20 00:00:00 Test Item Value Reference Range Interpretation Comments NOTE: (test code = 54464) UNLABELLED SPECIMEN [ADDED]2019-05-20 00:00:00 Test Item Value Reference Range Interpretation Comments NOTE: (test code = 03666) UNLABELLED SPECIMEN [ADDED]2019-05-20 00:00:00 Test Item Value Reference Range Interpretation Comments NOTE: (test code = 23547) HEMOGLOBIN [id number] 00:00:00 Test Item Value Reference Range Interpretation Comments HEMOGLOBIN A1c (test code = 30661) 9.0 % COMPREHENSIVE METABOLIC [id number] 00:00:00 Test Item Value Reference Range Interpretation Comments GLUCOSE (test code = 2217) 133 MG/DL BUN (test code = 2208) 44 MG/DL CREATININE (test code = 2214) 1.46 MG/DL eGFR AMER. (test code 42 ML/MIN/1.73 = 33697) eGFR NON- AMER. (test 36 ML/MIN/1.73 code = 96338) CALC BUN/CREAT (test code = 30 RATIO [...] code = 2219) 17 U/L COMPREHENSIVE METABOLIC [id number] 00:00:00 Test Item Value Reference Range Interpretation Comments GLUCOSE (test code = 2217) 133 MG/DL BUN (test code = 2208) 44 MG/DL CREATININE (test code = 2214) 1.46 MG/DL eGFR AMER. (test code 42 ML/MIN/1.73 = 33621) eGFR NON- AMER. (test 36 ML/MIN/1.73 code = 82757) CALC BUN/CREAT (test code = 30 RATIO [...] = 2219) 17 U/L MICROALBUMIN/CREATININE, RANDOM AND [id number] 00:00:00 Test Item Value Reference Range Interpretation Comments CREATININE, URINE, CONC. (test 97.1 MG/DL code = 2072) ALBUMIN, URINE, RANDOM (test code 18.9 MG/DL = 82976) CALC ALBUMIN/CREAT, RND (test code 195 MG/G = 09577) MICROALBUMIN/CREATININE, RANDOM AND [id number] 00:00:00 Test Item Value Reference Range Interpretation Comments CREATININE, URINE, CONC. (test 97.1 MG/DL code = 2072) ALBUMIN, URINE, RANDOM (test code 18.9 MG/DL = 30032) CALC ALBUMIN/CREAT, RND (test code 195 MG/G = 70420) CBC W/AUTO [id number] 00:00:00 Test Item Value Reference Range Interpretation [...] code = 1015) 284 K/UL CBC W/AUTO [id number] 00:00:00 Test Item Value Reference Range Interpretation [...] (test code = 1015) 284 K/UL LIPID [id number] 00:00:00 Test Item Value Reference Range Interpretation Comments CHOLESTEROL (test code = 2210) 196 MG/DL TRIGLYCERIDES (test code = 2232) 227 MG/DL HDL CHOLESTEROL (test code = 2220) 44 MG/DL CALC LDL CHOL (test code = 2237) 107 MG/DL RISK RATIO LDL/HDL (test code = 2.42 RATIO 2238) HEMOGLOBIN [id number] 00:00:00 Test Item Value Reference Range Interpretation Comments HEMOGLOBIN A1c (test code = 71005) 9.0 % HEMOGLOBIN [id number] 00:00:00 Test Item Value Reference Range Interpretation Comments HEMOGLOBIN A1c (test code = 47108) 9.0 % COMPREHENSIVE METABOLIC [id number] 00:00:00 Test Item Value Reference Range Interpretation Comments GLUCOSE (test code = 2217) 133 MG/DL BUN (test code = 2208) 44 MG/DL CREATININE (test code = 2214) 1.46 MG/DL eGFR AMER. (test code 42 ML/MIN/1.73 = 48203) eGFR NON- AMER. (test 36 ML/MIN/1.73 code = 19667) CALC BUN/CREAT (test code = 30 RATIO [...] = 2219) 17 U/L MICROALBUMIN/CREATININE, RANDOM AND [id number] 00:00:00 Test Item Value Reference Range Interpretation Comments CREATININE, URINE, CONC. (test 97.1 MG/DL code = 2072) ALBUMIN, URINE, RANDOM (test code 18.9 MG/DL = 09582) CALC ALBUMIN/CREAT, RND (test code 195 MG/G = 96665) CBC W/AUTO [id number] 00:00:00 Test Item Value Reference Range Interpretation [...] code = 1015) 284 K/UL CBC W/AUTO [id number] 00:00:00 Test Item Value Reference Range Interpretation [...] (test code = 1015) 284 K/UL LIPID [id number] 00:00:00 Test Item Value Reference Range Interpretation Comments CHOLESTEROL (test code = 2210) 196 MG/DL TRIGLYCERIDES (test code = 2232) 227 MG/DL HDL CHOLESTEROL (test code = 2220) 44 MG/DL CALC LDL CHOL (test code = 2237) 107 MG/DL RISK RATIO LDL/HDL (test code = 2.42 RATIO 2238) HEMOGLOBIN [id number] 00:00:00 Test Item Value Reference Range Interpretation Comments HEMOGLOBIN A1c (test code = 90085) 9.0 % HEMOGLOBIN [id number] 00:00:00 Test Item Value Reference Range Interpretation Comments HEMOGLOBIN A1c (test code = 13511) 9.0 % COMPREHENSIVE METABOLIC [id number] 00:00:00 Test Item Value Reference Range Interpretation Comments GLUCOSE (test code = 2217) 133 MG/DL BUN (test code = 2208) 44 MG/DL CREATININE (test code = 2214) 1.46 MG/DL eGFR AMER. (test code 42 ML/MIN/1.73 = 43698) eGFR NON- AMER. (test 36 ML/MIN/1.73 code = 36164) CALC BUN/CREAT (test code = 30 RATIO [...] ALKALINE PHOSPHATASE (test 96 U/L code = 220) AST (test code = 2218) 19 U/L ALT (test code = 2219) 17 U/L MICROALBUMIN/CREATININE, RANDOM AND [id number] 00:00:00 Test Item Value Reference Range Interpretation Comments CREATININE, URINE, CONC. (test 97.1 MG/DL code = 2071) ALBUMIN, URINE, RANDOM (test code 18.9 MG/DL = 82342) CALC ALBUMIN/CREAT, RND (test code 195 MG/G = 83781) CBC W/AUTO [id number] 00:00:00 Test Item Value Reference Range Interpretation [...] code = 1015) 284 K/UL CBC W/AUTO [id number] 00:00:00 Test Item Value Reference Range Interpretation [...] code = 1015) 284 K/UL CBC W/AUTO [id number] 00:00:00 Test Item Value Reference Range Interpretation [...] (test code = 1015) 284 K/UL LIPID [id number] 00:00:00 Test Item Value Reference Range Interpretation Comments CHOLESTEROL (test code = 2210) 196 MG/DL TRIGLYCERIDES (test code = 2232) 227 MG/DL HDL CHOLESTEROL (test code = 2220) 44 MG/DL CALC LDL CHOL (test code = 2237) 107 MG/DL RISK RATIO LDL/HDL (test code = 2.42 RATIO 2238) LIPID [id number] 00:00:00 Test Item Value Reference Range Interpretation Comments CHOLESTEROL (test code = 2210) 196 MG/DL TRIGLYCERIDES (test code = 2232) 227 MG/DL HDL CHOLESTEROL (test code = 2220) 44 MG/DL CALC LDL CHOL (test code = 2237) 107 MG/DL RISK RATIO LDL/HDL (test code = 2.42 RATIO 2238) HEMOGLOBIN [id number] 00:00:00 Test Item Value Reference Range Interpretation Comments HEMOGLOBIN A1c (test code = 67002) 9.0 % HEMOGLOBIN [id number] 00:00:00 Test Item Value Reference Range Interpretation Comments HEMOGLOBIN A1c (test code = 76704) 9.0 % HEMOGLOBIN [id number] 00:00:00 Test Item Value Reference Range Interpretation Comments HEMOGLOBIN A1c (test code = 75571) 9.0 % COMPREHENSIVE METABOLIC [id number] 00:00:00 Test Item Value Reference Range Interpretation Comments GLUCOSE (test code = 2217) 133 MG/DL BUN (test code = 2208) 44 MG/DL CREATININE (test code = 2214) 1.46 MG/DL eGFR AMER. (test code 42 ML/MIN/1.73 = 77665) eGFR NON- AMER. (test 36 ML/MIN/1.73 code = 14362) CALC BUN/CREAT (test code = 30 RATIO [...] code = 2219) 17 U/L COMPREHENSIVE METABOLIC [id number] 00:00:00 Test Item Value Reference Range Interpretation Comments GLUCOSE (test code = 2217) 133 MG/DL BUN (test code = 2208) 44 MG/DL CREATININE (test code = 2214) 1.46 MG/DL eGFR AMER. (test code 42 ML/MIN/1.73 = 73480) eGFR NON- AMER. (test 36 ML/MIN/1.73 code = 01495) CALC BUN/CREAT (test code = 30 RATIO 2235) SODIUM (test code = 2231) 142 MEQ/L POTASSIUM (test code = 2228) 5.3 MEQ/L CHLORIDE (test code = 2215) 106 MEQ/L CARBON DIOXIDE (test code = 23 MEQ/L 2205) CALCIUM (test code = 2209) 9.6 MG/DL PROTEIN, TOTAL (test code = 7.2 G/DL 2228) ALBUMIN (test code = 220) 4.3 G/DL CALC GLOBULIN (test code = 2.9 G/DL 2239) CALC A/G RATIO (test code = 1.5 RATIO 2233) BILIRUBIN, TOTAL (test code = 0.3 MG/DL 2206) ALKALINE PHOSPHATASE (test 96 U/L code = 2204) AST (test code = 2218) 19 U/L ALT (test code = 2219) 17 U/L MICROALBUMIN/CREATININE, RANDOM AND [id number] 00:00:00 Test Item Value Reference Range Interpretation Comments CREATININE, URINE, CONC. (test 97.1 MG/DL code = 2072) ALBUMIN, URINE, RANDOM (test code 18.9 MG/DL = 79281) CALC ALBUMIN/CREAT, RND (test code 195 MG/G = 73313) MICROALBUMIN/CREATININE, RANDOM AND [id number] 00:00:00 Test Item Value Reference Range Interpretation Comments CREATININE, URINE, CONC. (test 97.1 MG/DL code = 2072) ALBUMIN, URINE, RANDOM (test code 18.9 MG/DL = 57173) CALC ALBUMIN/CREAT, RND (test code 195 MG/G = 29687) CBC W/AUTO [id number] 00:00:00 Test Item Value Reference Range Interpretation [...] code = 1015) 284 K/UL CBC W/AUTO [id number] 00:00:00 Test Item Value Reference Range Interpretation [...] code = 1015) 284 K/UL CBC W/AUTO [id number] 00:00:00 Test Item Value Reference Range Interpretation [...] (test code = 1015) 284 K/UL LIPID [id number] 00:00:00 Test Item Value Reference Range Interpretation Comments CHOLESTEROL (test code = 2210) 196 MG/DL TRIGLYCERIDES (test code = 2232) 227 MG/DL HDL CHOLESTEROL (test code = 2220) 44 MG/DL CALC LDL CHOL (test code = 2237) 107 MG/DL RISK RATIO LDL/HDL (test code = 2.42 RATIO 2238) LIPID [id number] 00:00:00 Test Item Value Reference Range Interpretation Comments CHOLESTEROL (test code = 2210) 196 MG/DL TRIGLYCERIDES (test code = 2232) 227 MG/DL HDL CHOLESTEROL (test code = 2220) 44 MG/DL CALC LDL CHOL (test code = 2237) 107 MG/DL RISK RATIO LDL/HDL (test code = 2.42 RATIO 2238) HEMOGLOBIN [id number] 00:00:00 Test Item Value Reference Range Interpretation Comments HEMOGLOBIN A1c (test code = 86517) 9.0 % HEMOGLOBIN [id number] 00:00:00 Test Item Value Reference Range Interpretation Comments HEMOGLOBIN A1c (test code = 56389) 9.0 % HEMOGLOBIN [id number] 00:00:00 Test Item Value Reference Range Interpretation Comments HEMOGLOBIN A1c (test code = 66694) 9.0 % COMPREHENSIVE METABOLIC [id number] 00:00:00 Test Item Value Reference Range Interpretation Comments GLUCOSE (test code = 2217) 133 MG/DL BUN (test code = 2208) 44 MG/DL CREATININE (test code = 2214) 1.46 MG/DL eGFR AMER. (test code 42 ML/MIN/1.73 = 61520) eGFR NON- AMER. (test 36 ML/MIN/1.73 code = 86810) CALC BUN/CREAT (test code = 30 RATIO [...] code = 2219) 17 U/L COMPREHENSIVE METABOLIC [id number] 00:00:00 Test Item Value Reference Range Interpretation Comments GLUCOSE (test code = 2217) 133 MG/DL BUN (test code = 2208) 44 MG/DL CREATININE (test code = 2214) 1.46 MG/DL eGFR AMER. (test code 42 ML/MIN/1.73 = 38873) eGFR NON- AMER. (test 36 ML/MIN/1.73 code = 20941) CALC BUN/CREAT (test code = 30 RATIO [...] = 2219) 17 U/L MICROALBUMIN/CREATININE, RANDOM AND [id number] 00:00:00 Test Item Value Reference Range Interpretation Comments CREATININE, URINE, CONC. (test 97.1 MG/DL code = 2072) ALBUMIN, URINE, RANDOM (test code 18.9 MG/DL = 27437) CALC ALBUMIN/CREAT, RND (test code 195 MG/G = 91672) MICROALBUMIN/CREATININE, RANDOM AND [id number] 00:00:00 Test Item Value Reference Range Interpretation Comments CREATININE, URINE, CONC. (test 97.1 MG/DL code = 2072) ALBUMIN, URINE, RANDOM (test code 18.9 MG/DL = 33894) CALC ALBUMIN/CREAT, RND (test code 195 MG/G = 80842) CBC W/AUTO [id number] 00:00:00 Test Item Value Reference Range Interpretation [...] code = 1015) 284 K/UL CBC W/AUTO [id number] 00:00:00 Test Item Value Reference Range Interpretation [...] code = 1015) 284 K/UL CBC W/AUTO [id number] 00:00:00 Test Item Value Reference Range Interpretation [...] (test code = 1015) 284 K/UL LIPID [id number] 00:00:00 Test Item Value Reference Range Interpretation Comments CHOLESTEROL (test code = 2210) 196 MG/DL TRIGLYCERIDES (test code = 2232) 227 MG/DL HDL CHOLESTEROL (test code = 2220) 44 MG/DL CALC LDL CHOL (test code = 2237) 107 MG/DL RISK RATIO LDL/HDL (test code = 2.42 RATIO 2238) LIPID [id number] 00:00:00 Test Item Value Reference Range Interpretation Comments CHOLESTEROL (test code = 2210) 196 MG/DL TRIGLYCERIDES (test code = 2232) 227 MG/DL HDL CHOLESTEROL (test code = 2220) 44 MG/DL CALC LDL CHOL (test code = 2237) 107 MG/DL RISK RATIO LDL/HDL (test code = 2.42 RATIO 2238) HEMOGLOBIN [id number] 00:00:00 Test Item Value Reference Range Interpretation Comments HEMOGLOBIN A1c (test code = 06173) 9.0 % HEMOGLOBIN [id number] 00:00:00 Test Item Value Reference Range Interpretation Comments HEMOGLOBIN A1c (test code = 62663) 9.0 % COMPREHENSIVE METABOLIC [id number] 00:00:00 Test Item Value Reference Range Interpretation Comments GLUCOSE (test code = 2217) 235 MG/DL BUN (test code = 2208) 36 MG/DL CREATININE (test code = 2214) 1.62 MG/DL eGFR AMER. (test code 37 ML/MIN/1.73 = 61474) eGFR NON- AMER. (test 32 ML/MIN/1.73 code = 74152) CALC BUN/CREAT (test code = 22 RATIO 2235) SODIUM (test code = 2231) 143 MEQ/L POTASSIUM (test code = 2228) 4.7 MEQ/L CHLORIDE (test code = 2215) 105 MEQ/L CARBON DIOXIDE (test code = 23 MEQ/L 2206) CALCIUM (test code = 2209) 9.6 MG/DL PROTEIN, TOTAL (test code = 7.3 G/DL 2229) ALBUMIN (test code = 2201) 4.3 G/DL CALC GLOBULIN (test code = 3.0 G/DL 2240) CALC A/G RATIO (test code = 1.4 RATIO 2234) BILIRUBIN, TOTAL (test code = 0.3 MG/DL 2206) ALKALINE PHOSPHATASE (test 85 U/L code = 220) AST (test code = 2218) 15 U/L ALT (test code = 2219) 9 U/L COMPREHENSIVE METABOLIC [id number] 00:00:00 Test Item Value Reference Range Interpretation Comments GLUCOSE (test code = 2217) 235 MG/DL BUN (test code = 2208) 36 MG/DL CREATININE (test code = 2214) 1.62 MG/DL eGFR AMER. (test code 37 ML/MIN/1.73 = 85554) eGFR NON- AMER. (test 32 ML/MIN/1.73 code = 72411) CALC BUN/CREAT (test code = 22 RATIO 2235) SODIUM (test code = 2231) 143 MEQ/L POTASSIUM (test code = 2228) 4.7 MEQ/L CHLORIDE (test code = 2215) 105 MEQ/L CARBON DIOXIDE (test code = 23 MEQ/L 220) CALCIUM (test code = 2209) 9.6 MG/DL PROTEIN, TOTAL (test code = 7.3 G/DL 2229) ALBUMIN (test code = 2201) 4.3 G/DL CALC GLOBULIN (test code = 3.0 G/DL 2240) CALC A/G RATIO (test code = 1.4 RATIO 2234) BILIRUBIN, TOTAL (test code = 0.3 MG/DL 2206) ALKALINE PHOSPHATASE (test 85 U/L code = 2204) AST (test code = 2218) 15 U/L ALT (test code = 2219) 9 U/L COMPREHENSIVE METABOLIC [id number] 00:00:00 Test Item Value Reference Range Interpretation Comments GLUCOSE (test code = 2217) 235 MG/DL BUN (test code = 2208) 36 MG/DL CREATININE (test code = 2214) 1.62 MG/DL eGFR AMER. (test code 37 ML/MIN/1.73 = 62272) eGFR NON- AMER. (test 32 ML/MIN/1.73 code = 26775) CALC BUN/CREAT (test code = 22 RATIO [...] code = 2219) 9 U/L COMPREHENSIVE METABOLIC [id number] 00:00:00 Test Item Value Reference Range Interpretation Comments GLUCOSE (test code = 2217) 235 MG/DL BUN (test code = 2208) 36 MG/DL CREATININE (test code = 2214) 1.62 MG/DL eGFR AMER. (test code 37 ML/MIN/1.73 = 17291) eGFR NON- AMER. (test 32 ML/MIN/1.73 code = 73213) CALC BUN/CREAT (test code = 22 RATIO [...] = 0.3 MG/DL 2207) ALKALINE PHOSPHATASE (test 85 U/L code = 2204) AST (test code = 2218) 15 U/L ALT (test code = 2219) 9 U/L COMPREHENSIVE METABOLIC [id number] 00:00:00 Test Item Value Reference Range Interpretation Comments GLUCOSE (test code = 2217) 235 MG/DL BUN (test code = 2208) 36 MG/DL CREATININE (test code = 2214) 1.62 MG/DL eGFR AMER. (test code 37 ML/MIN/1.73 = 00220) eGFR NON- AMER. (test 32 ML/MIN/1.73 code = 26391) CALC BUN/CREAT (test code = 22 RATIO [...] code = 2219) 9 U/L COMPREHENSIVE METABOLIC [id number] 00:00:00 Test Item Value Reference Range Interpretation Comments GLUCOSE (test code = 2217) 235 MG/DL BUN (test code = 2208) 36 MG/DL CREATININE (test code = 2214) 1.62 MG/DL eGFR AMER. (test code 37 ML/MIN/1.73 = 05548) eGFR NON- AMER. (test 32 ML/MIN/1.73 code = 61159) CALC BUN/CREAT (test code = 22 RATIO [...] code = 2219) 9 U/L COMPREHENSIVE METABOLIC [id number] 00:00:00 Test Item Value Reference Range Interpretation Comments GLUCOSE (test code = 2217) 235 MG/DL BUN (test code = 2208) 36 MG/DL CREATININE (test code = 2214) 1.62 MG/DL eGFR AMER. (test code 37 ML/MIN/1.73 = 07574) eGFR NON- AMER. (test 32 ML/MIN/1.73 code = 59817) CALC BUN/CREAT (test code = 22 RATIO [...] code = 2219) 9 U/L COMPREHENSIVE METABOLIC [id number] 00:00:00 Test Item Value Reference Range Interpretation Comments GLUCOSE (test code = 2217) 235 MG/DL BUN (test code = 2208) 36 MG/DL CREATININE (test code = 2214) 1.62 MG/DL eGFR AMER. (test code 37 ML/MIN/1.73 = 57044) eGFR NON- AMER. (test 32 ML/MIN/1.73 code = 90613) CALC BUN/CREAT (test code = 22 RATIO [...] BILIRUBIN, TOTAL (test code = 0.3 MG/DL 220) ALKALINE PHOSPHATASE (test 85 U/L code = 2204) AST (test code = 2218) 15 U/L ALT (test code = 2219) 9 U/L CBC W/AUTO [id number] 00:00:00 Test Item Value Reference Range Interpretation [...] code = 1015) 247 K/UL CBC W/AUTO [id number] 00:00:00 Test Item Value Reference Range Interpretation [...] (test code = 1015) 247 K/UL HEMOGLOBIN [id number] 00:00:00 Test Item Value Reference Range Interpretation Comments HEMOGLOBIN A1c (test code = 72955) 7.1 % HEMOGLOBIN [id number] 00:00:00 Test Item Value Reference Range Interpretation Comments HEMOGLOBIN A1c (test code = 51380) 7.1 % COMPREHENSIVE METABOLIC [id number] 00:00:00 Test Item Value Reference Range Interpretation Comments GLUCOSE (test code = 2217) 116 MG/DL BUN (test code = 2208) 35 MG/DL CREATININE (test code = 2214) 1.31 MG/DL eGFR AMER. (test code 48 ML/MIN/1.73 = 66710) eGFR NON- AMER. (test 41 ML/MIN/1.73 code = 21125) CALC BUN/CREAT (test code = 27 RATIO [...] code = 2219) 10 U/L CBC W/AUTO [id number] 00:00:00 Test Item Value Reference Range Interpretation [...] code = 1015) 247 K/UL CBC W/AUTO [id number] 00:00:00 Test Item Value Reference Range Interpretation [...] (test code = 1015) 247 K/UL HEMOGLOBIN [id number] 00:00:00 Test Item Value Reference Range Interpretation Comments HEMOGLOBIN A1c (test code = 62732) 7.1 % HEMOGLOBIN [id number] 00:00:00 Test Item Value Reference Range Interpretation Comments HEMOGLOBIN A1c (test code = 49760) 7.1 % COMPREHENSIVE METABOLIC [id number] 00:00:00 Test Item Value Reference Range Interpretation Comments GLUCOSE (test code = 2217) 116 MG/DL BUN (test code = 2208) 35 MG/DL CREATININE (test code = 2214) 1.31 MG/DL eGFR AMER. (test code 48 ML/MIN/1.73 = 88422) eGFR NON- AMER. (test 41 ML/MIN/1.73 code = 93262) CALC BUN/CREAT (test code = 27 RATIO [...] code = 2219) 10 U/L CBC W/AUTO [id number] 00:00:00 Test Item Value Reference Range Interpretation [...] code = 1015) 247 K/UL CBC W/AUTO [id number] 00:00:00 Test Item Value Reference Range Interpretation [...] code = 1015) 247 K/UL CBC W/AUTO [id number] 00:00:00 Test Item Value Reference Range Interpretation [...] (test code = 1015) 247 K/UL HEMOGLOBIN [id number] 00:00:00 Test Item Value Reference Range Interpretation Comments HEMOGLOBIN A1c (test code = 91311) 7.1 % HEMOGLOBIN [id number] 00:00:00 Test Item Value Reference Range Interpretation Comments HEMOGLOBIN A1c (test code = 56640) 7.1 % HEMOGLOBIN [id number] 00:00:00 Test Item Value Reference Range Interpretation Comments HEMOGLOBIN A1c (test code = 47985) 7.1 % COMPREHENSIVE METABOLIC [id number] 00:00:00 Test Item Value Reference Range Interpretation Comments GLUCOSE (test code = 2217) 116 MG/DL BUN (test code = 2208) 35 MG/DL CREATININE (test code = 2214) 1.31 MG/DL eGFR AMER. (test code 48 ML/MIN/1.73 = 43553) eGFR NON- AMER. (test 41 ML/MIN/1.73 code = 08074) CALC BUN/CREAT (test code = 27 RATIO [...] code = 2219) 10 U/L COMPREHENSIVE METABOLIC [id number] 00:00:00 Test Item Value Reference Range Interpretation Comments GLUCOSE (test code = 2217) 116 MG/DL BUN (test code = 2208) 35 MG/DL CREATININE (test code = 2214) 1.31 MG/DL eGFR AMER. (test code 48 ML/MIN/1.73 = 82964) eGFR NON- AMER. (test 41 ML/MIN/1.73 code = 91422) CALC BUN/CREAT (test code = 27 RATIO [...] BILIRUBIN, TOTAL (test code = 0.2 MG/DL 2207) ALKALINE PHOSPHATASE (test 78 U/L code = 2204) AST (test code = 2218) 15 U/L ALT (test code = 2219) 10 U/L CBC W/AUTO [id number] 00:00:00 Test Item Value Reference Range Interpretation [...] code = 1015) 247 K/UL CBC W/AUTO [id number] 00:00:00 Test Item Value Reference Range Interpretation [...] code = 1015) 247 K/UL CBC W/AUTO [id number] 00:00:00 Test Item Value Reference Range Interpretation [...] (test code = 1015) 247 K/UL HEMOGLOBIN [id number] 00:00:00 Test Item Value Reference Range Interpretation Comments HEMOGLOBIN A1c (test code = 55014) 7.1 % HEMOGLOBIN [id number] 00:00:00 Test Item Value Reference Range Interpretation Comments HEMOGLOBIN A1c (test code = 50333) 7.1 % HEMOGLOBIN [id number] 00:00:00 Test Item Value Reference Range Interpretation Comments HEMOGLOBIN A1c (test code = 98064) 7.1 % COMPREHENSIVE METABOLIC [id number] 00:00:00 Test Item Value Reference Range Interpretation Comments GLUCOSE (test code = 2217) 116 MG/DL BUN (test code = 2208) 35 MG/DL CREATININE (test code = 2214) 1.31 MG/DL eGFR AMER. (test code 48 ML/MIN/1.73 = 37453) eGFR NON- AMER. (test 41 ML/MIN/1.73 code = 69975) CALC BUN/CREAT (test code = 27 RATIO 2234) SODIUM (test code = 2231) 141 MEQ/L [...] BILIRUBIN, TOTAL (test code = 0.2 MG/DL 2207) ALKALINE PHOSPHATASE (test 78 U/L code = 2204) AST (test code = 2218) 15 U/L ALT (test code = 2219) 10 U/L COMPREHENSIVE METABOLIC [id number] 00:00:00 Test Item Value Reference Range Interpretation Comments GLUCOSE (test code = 2217) 116 MG/DL BUN (test code = 2208) 35 MG/DL CREATININE (test code = 2214) 1.31 MG/DL eGFR AMER. (test code 48 ML/MIN/1.73 = 37551) eGFR NON- AMER. (test 41 ML/MIN/1.73 code = 13605) CALC BUN/CREAT (test code = 27 RATIO [...] code = 2219) 10 U/L CBC W/AUTO [id number] 00:00:00 Test Item Value Reference Range Interpretation [...] code = 1015) 247 K/UL CBC W/AUTO [id number] 00:00:00 Test Item Value Reference Range Interpretation [...] code = 1015) 247 K/UL CBC W/AUTO [id number] 00:00:00 Test Item Value Reference Range Interpretation [...] (test code = 1015) 247 K/UL HEMOGLOBIN [id number] 00:00:00 Test Item Value Reference Range Interpretation Comments HEMOGLOBIN A1c (test code = 86164) 7.1 % HEMOGLOBIN [id number] 00:00:00 Test Item Value Reference Range Interpretation Comments HEMOGLOBIN A1c (test code = 32497) 7.1 % HEMOGLOBIN [id number] 00:00:00 Test Item Value Reference Range Interpretation Comments HEMOGLOBIN A1c (test code = 99039) 7.1 % COMPREHENSIVE METABOLIC [id number] 00:00:00 Test Item Value Reference Range Interpretation Comments GLUCOSE (test code = 2217) 116 MG/DL BUN (test code = 2208) 35 MG/DL CREATININE (test code = 2214) 1.31 MG/DL eGFR AMER. (test code 48 ML/MIN/1.73 = 43899) eGFR NON- AMER. (test 41 ML/MIN/1.73 code = 46449) CALC BUN/CREAT (test code = 27 RATIO [...] code = 2219) 10 U/L COMPREHENSIVE METABOLIC [id number] 00:00:00 Test Item Value Reference Range Interpretation Comments GLUCOSE (test code = 2217) 116 MG/DL BUN (test code = 2208) 35 MG/DL CREATININE (test code = 2214) 1.31 MG/DL eGFR AMER. (test code 48 ML/MIN/1.73 = 77048) eGFR NON- AMER. (test 41 ML/MIN/1.73 code = 73209) CALC BUN/CREAT (test code = 27 RATIO 2235) SODIUM (test code = 2231) 141 MEQ/L POTASSIUM (test code = 2228) 5.0 MEQ/L CHLORIDE (test code = 2215) 104 MEQ/L CARBON DIOXIDE (test code = 22 MEQ/L 220) CALCIUM (test code = 2209) 9.5 MG/DL PROTEIN, TOTAL (test code = 7.2 G/DL 2229) ALBUMIN (test code = 2201) 4.3 G/DL CALC GLOBULIN (test code = 2.9 G/DL 2240) CALC A/G RATIO (test code = 1.5 RATIO 2234) BILIRUBIN, TOTAL (test code = 0.2 MG/DL 2207) ALKALINE PHOSPHATASE (test 78 U/L code = 2204) AST (test code = 2218) 15 U/L ALT (test code = 2219) 10 U/L CBC W/AUTO [id number] 00:00:00 Test Item Value Reference Range Interpretation [...] code = 1015) 245 K/UL CBC W/AUTO [id number] 00:00:00 Test Item Value Reference Range Interpretation [...] (test code = 1015) 245 K/UL HEMOGLOBIN [id number] 00:00:00 Test Item Value Reference Range Interpretation Comments HEMOGLOBIN A1c (test code = 58111) 7.8 % HEMOGLOBIN [id number] 00:00:00 Test Item Value Reference Range Interpretation Comments HEMOGLOBIN A1c (test code = 95348) 7.8 % HEMOGLOBIN [id number] 00:00:00 Test Item Value Reference Range Interpretation Comments HEMOGLOBIN A1c (test code = 67370) 7.8 % COMPREHENSIVE METABOLIC [id number] 00:00:00 Test Item Value Reference Range Interpretation Comments GLUCOSE (test code = 2217) 209 MG/DL BUN (test code = 2208) 44 MG/DL CREATININE (test code = 2214) 1.50 MG/DL eGFR AMER. (test code 41 ML/MIN/1.73 = 54907) eGFR NON- AMER. (test 35 ML/MIN/1.73 code = 27683) CALC BUN/CREAT (test code = 29 RATIO [...] (test code = 2219) 13 U/L LIPID [id number] 00:00:00 Test Item Value Reference Range Interpretation Comments CHOLESTEROL (test code = 2210) 195 MG/DL TRIGLYCERIDES (test code = 2232) 195 MG/DL HDL CHOLESTEROL (test code = 2220) 49 MG/DL CALC LDL CHOL (test code = 2237) 107 MG/DL RISK RATIO LDL/HDL (test code = 2.18 RATIO 2238) CBC W/AUTO [id number] 00:00:00 Test Item Value Reference Range Interpretation [...] code = 1015) 245 K/UL CBC W/AUTO [id number] 00:00:00 Test Item Value Reference Range Interpretation [...] (test code = 1015) 245 K/UL HEMOGLOBIN [id number] 00:00:00 Test Item Value Reference Range Interpretation Comments HEMOGLOBIN A1c (test code = 92076) 7.8 % HEMOGLOBIN [id number] 00:00:00 Test Item Value Reference Range Interpretation Comments HEMOGLOBIN A1c (test code = 09257) 7.8 % COMPREHENSIVE METABOLIC [id number] 00:00:00 Test Item Value Reference Range Interpretation Comments GLUCOSE (test code = 2217) 209 MG/DL BUN (test code = 2208) 44 MG/DL CREATININE (test code = 2214) 1.50 MG/DL eGFR AMER. (test code 41 ML/MIN/1.73 = 65934) eGFR NON- AMER. (test 35 ML/MIN/1.73 code = 57950) CALC BUN/CREAT (test code = 29 RATIO [...] (test code = 2219) 13 U/L LIPID [id number] 00:00:00 Test Item Value Reference Range Interpretation Comments CHOLESTEROL (test code = 2210) 195 MG/DL TRIGLYCERIDES (test code = 2232) 195 MG/DL HDL CHOLESTEROL (test code = 2220) 49 MG/DL CALC LDL CHOL (test code = 2237) 107 MG/DL RISK RATIO LDL/HDL (test code = 2.18 RATIO 2238) CBC W/AUTO [id number] 00:00:00 Test Item Value Reference Range Interpretation [...] code = 1015) 245 K/UL CBC W/AUTO [id number] 00:00:00 Test Item Value Reference Range Interpretation [...] (test code = 1015) 245 K/UL HEMOGLOBIN [id number] 00:00:00 Test Item Value Reference Range Interpretation Comments HEMOGLOBIN A1c (test code = 22215) 7.8 % HEMOGLOBIN [id number] 00:00:00 Test Item Value Reference Range Interpretation Comments HEMOGLOBIN A1c (test code = 47629) 7.8 % COMPREHENSIVE METABOLIC [id number] 00:00:00 Test Item Value Reference Range Interpretation Comments GLUCOSE (test code = 2217) 209 MG/DL BUN (test code = 2208) 44 MG/DL CREATININE (test code = 2214) 1.50 MG/DL eGFR AMER. (test code 41 ML/MIN/1.73 = 23253) eGFR NON- AMER. (test 35 ML/MIN/1.73 code = 67125) CALC BUN/CREAT (test code = 29 RATIO 2235) SODIUM (test code = 2231) 144 MEQ/L POTASSIUM (test code = 2228) 4.7 MEQ/L CHLORIDE (test code = 2215) 101 MEQ/L CARBON DIOXIDE (test code = 23 MEQ/L 2205) CALCIUM (test code = 2209) 9.2 MG/DL PROTEIN, TOTAL (test code = 7.5 G/DL 2229) ALBUMIN (test code = 2201) 4.5 G/DL CALC GLOBULIN (test code = 3.0 G/DL 2240) CALC A/G RATIO (test code = 1.5 RATIO 2234) BILIRUBIN, TOTAL (test code = <0.2 MG/DL 2206) ALKALINE PHOSPHATASE (test 81 U/L code = 2204) AST (test code = 2218) 14 U/L ALT (test code = 2219) 13 U/L COMPREHENSIVE METABOLIC [id number] 00:00:00 Test Item Value Reference Range Interpretation Comments GLUCOSE (test code = 2217) 209 MG/DL BUN (test code = 2208) 44 MG/DL CREATININE (test code = 2214) 1.50 MG/DL eGFR AMER. (test code 41 ML/MIN/1.73 = 58889) eGFR NON- AMER. (test 35 ML/MIN/1.73 code = 69033) CALC BUN/CREAT (test code = 29 RATIO [...] (test code = 2219) 13 U/L LIPID [id number] 00:00:00 Test Item Value Reference Range Interpretation Comments CHOLESTEROL (test code = 2210) 195 MG/DL TRIGLYCERIDES (test code = 2232) 195 MG/DL HDL CHOLESTEROL (test code = 2220) 49 MG/DL CALC LDL CHOL (test code = 2237) 107 MG/DL RISK RATIO LDL/HDL (test code = 2.18 RATIO 2238) LIPID [id number] 00:00:00 Test Item Value Reference Range Interpretation Comments CHOLESTEROL (test code = 2210) 195 MG/DL TRIGLYCERIDES (test code = 2232) 195 MG/DL HDL CHOLESTEROL (test code = 2220) 49 MG/DL CALC LDL CHOL (test code = 2237) 107 MG/DL RISK RATIO LDL/HDL (test code = 2.18 RATIO 2238) CBC W/AUTO [id number] 00:00:00 Test Item Value Reference Range Interpretation [...] code = 1015) 245 K/UL CBC W/AUTO [id number] 00:00:00 Test Item Value Reference Range Interpretation [...] code = 1015) 245 K/UL CBC W/AUTO [id number] 00:00:00 Test Item Value Reference Range Interpretation [...] (test code = 1015) 245 K/UL HEMOGLOBIN [id number] 00:00:00 Test Item Value Reference Range Interpretation Comments HEMOGLOBIN A1c (test code = 62718) 7.8 % HEMOGLOBIN [id number] 00:00:00 Test Item Value Reference Range Interpretation Comments HEMOGLOBIN A1c (test code = 57109) 7.8 % HEMOGLOBIN [id number] 00:00:00 Test Item Value Reference Range Interpretation Comments HEMOGLOBIN A1c (test code = 24531) 7.8 % COMPREHENSIVE METABOLIC [id number] 00:00:00 Test Item Value Reference Range Interpretation Comments GLUCOSE (test code = 2217) 209 MG/DL BUN (test code = 2208) 44 MG/DL CREATININE (test code = 2214) 1.50 MG/DL eGFR AMER. (test code 41 ML/MIN/1.73 = 03129) eGFR NON- AMER. (test 35 ML/MIN/1.73 code = 76613) CALC BUN/CREAT (test code = 29 RATIO [...] code = 2219) 13 U/L COMPREHENSIVE METABOLIC [id number] 00:00:00 Test Item Value Reference Range Interpretation Comments GLUCOSE (test code = 2217) 209 MG/DL BUN (test code = 2208) 44 MG/DL CREATININE (test code = 2214) 1.50 MG/DL eGFR AMER. (test code 41 ML/MIN/1.73 = 98943) eGFR NON- AMER. (test 35 ML/MIN/1.73 code = 89700) CALC BUN/CREAT (test code = 29 RATIO [...] (test code = 2219) 13 U/L LIPID [id number] 00:00:00 Test Item Value Reference Range Interpretation Comments CHOLESTEROL (test code = 2210) 195 MG/DL TRIGLYCERIDES (test code = 2232) 195 MG/DL HDL CHOLESTEROL (test code = 2220) 49 MG/DL CALC LDL CHOL (test code = 2237) 107 MG/DL RISK RATIO LDL/HDL (test code = 2.18 RATIO 2238) LIPID [id number] 00:00:00 Test Item Value Reference Range Interpretation Comments CHOLESTEROL (test code = 2210) 195 MG/DL TRIGLYCERIDES (test code = 2232) 195 MG/DL HDL CHOLESTEROL (test code = 2220) 49 MG/DL CALC LDL CHOL (test code = 2237) 107 MG/DL RISK RATIO LDL/HDL (test code = 2.18 RATIO 2238) CBC W/AUTO [id number] 00:00:00 Test Item Value Reference Range Interpretation [...] code = 1015) 245 K/UL CBC W/AUTO [id number] 00:00:00 Test Item Value Reference Range Interpretation [...] code = 1015) 245 K/UL CBC W/AUTO [id number] 00:00:00 Test Item Value Reference Range Interpretation [...] (test code = 1015) 245 K/UL HEMOGLOBIN [id number] 00:00:00 Test Item Value Reference Range Interpretation Comments HEMOGLOBIN A1c (test code = 19659) 7.8 % HEMOGLOBIN [id number] 00:00:00 Test Item Value Reference Range Interpretation Comments HEMOGLOBIN A1c (test code = 86720) 7.8 % HEMOGLOBIN [id number] 00:00:00 Test Item Value Reference Range Interpretation Comments HEMOGLOBIN A1c (test code = 65895) 7.8 % COMPREHENSIVE METABOLIC [id number] 00:00:00 Test Item Value Reference Range Interpretation Comments GLUCOSE (test code = 2217) 209 MG/DL BUN (test code = 2208) 44 MG/DL CREATININE (test code = 2214) 1.50 MG/DL eGFR AMER. (test code 41 ML/MIN/1.73 = 40251) eGFR NON- AMER. (test 35 ML/MIN/1.73 code = 22476) CALC BUN/CREAT (test code = 29 RATIO [...] code = 2219) 13 U/L COMPREHENSIVE METABOLIC [id number] 00:00:00 Test Item Value Reference Range Interpretation Comments GLUCOSE (test code = 2217) 209 MG/DL BUN (test code = 2208) 44 MG/DL CREATININE (test code = 2214) 1.50 MG/DL eGFR AMER. (test code 41 ML/MIN/1.73 = 81672) eGFR NON- AMER. (test 35 ML/MIN/1.73 code = 74534) CALC BUN/CREAT (test code = 29 RATIO [...] = <0.2 MG/DL 220) ALKALINE PHOSPHATASE (test 81 U/L code = 2204) AST (test code = 2218) 14 U/L ALT (test code = 2219) 13 U/L LIPID [id number] 00:00:00 Test Item Value Reference Range Interpretation Comments CHOLESTEROL (test code = 2210) 195 MG/DL TRIGLYCERIDES (test code = 2232) 195 MG/DL HDL CHOLESTEROL (test code = 2220) 49 MG/DL CALC LDL CHOL (test code = 2237) 107 MG/DL RISK RATIO LDL/HDL (test code = 2.18 RATIO 2238) LIPID [id number] 00:00:00 Test Item Value Reference Range Interpretation Comments CHOLESTEROL (test code = 2210) 195 MG/DL TRIGLYCERIDES (test code = 2232) 195 MG/DL HDL CHOLESTEROL (test code = 2220) 49 MG/DL CALC LDL CHOL (test code = 2237) 107 MG/DL RISK RATIO LDL/HDL (test code = 2.18 RATIO 2238) CBC W/AUTO [id number] 00:00:00 Test Item Value Reference Range Interpretation [...] COUNT (test code = 1015) 245 K/UL LIPID PANEL [ADDED]2018-02-14 00:00:00 Test Item Value [...] eGFR AMER. (test code 55 ML/MIN/1.73 = 88253) eGFR NON- AMER. (test 48 ML/MIN/1.73 code = 91149) CALC BUN/CREAT (test code = 17 RATIO [...] eGFR AMER. (test code 55 ML/MIN/1.73 = 04220) eGFR NON- AMER. (test 48 ML/MIN/1.73 code = 10309) CALC BUN/CREAT (test code = 17 RATIO [...] URINE, RANDOM (test code 226.7 MG/DL = 03147) CALC ALBUMIN/CREAT, RND (test 1246 MG/G code = 19319) ALBUMIN/CREATININE RATIO, RANDOM URINE [ADDED]2018-02-14 00:00:00 Test Item Value Reference Range Interpretation Comments CREATININE, URINE, CONC. (test 181.9 MG/DL code = 2072) ALBUMIN, URINE, RANDOM (test code 226.7 MG/DL = 54262) CALC ALBUMIN/CREAT, RND (test 1246 MG/G code = 04170) CBC W/AUTO DIFF WITH PLATELETS [ADDED]2018-02-14 00:00:00 [...] Interpretation Comments HEMOGLOBIN A1c (test code = 49395) 7.3 % HEMOGLOBIN A1c [ADDED]2018-02-14 00:00:00 Test Item Value Reference Range Interpretation Comments HEMOGLOBIN A1c (test code = 63249) 7.3 % LIPID PANEL [ADDED]2018-02-14 00:00:00 Test [...] eGFR AMER. (test code 55 ML/MIN/1.73 = 90082) eGFR NON- AMER. (test 48 ML/MIN/1.73 code = 88308) CALC BUN/CREAT (test code = 17 RATIO [...] URINE, RANDOM (test code 226.7 MG/DL = 72308) CALC ALBUMIN/CREAT, RND (test 1246 MG/G code = 46553) CBC W/AUTO DIFF WITH PLATELETS [ADDED]2018-02-14 00:00:00 [...] Interpretation Comments HEMOGLOBIN A1c (test code = 16494) 7.3 % HEMOGLOBIN A1c [ADDED]2018-02-14 00:00:00 Test Item Value Reference Range Interpretation Comments HEMOGLOBIN A1c (test code = 05034) 7.3 % LIPID PANEL [ADDED]2018-02-14 00:00:00 Test [...] eGFR AMER. (test code 55 ML/MIN/1.73 = 21310) eGFR NON- AMER. (test 48 ML/MIN/1.73 code = 94216) CALC BUN/CREAT (test code = 17 RATIO [...] URINE, RANDOM (test code 226.7 MG/DL = 34062) CALC ALBUMIN/CREAT, RND (test 1246 MG/G code = 93230) CBC W/AUTO DIFF WITH PLATELETS [ADDED]2018-02-14 00:00:00 [...] Interpretation Comments HEMOGLOBIN A1c (test code = 74313) 7.3 % HEMOGLOBIN A1c [ADDED]2018-02-14 00:00:00 Test Item Value Reference Range Interpretation Comments HEMOGLOBIN A1c (test code = 44015) 7.3 % HEMOGLOBIN A1c [ADDED]2018-02-14 00:00:00 Test Item Value Reference Range Interpretation Comments HEMOGLOBIN A1c (test code = 45455) 7.3 % LIPID PANEL [ADDED]2018-02-14 00:00:00 Test [...] eGFR AMER. (test code 55 ML/MIN/1.73 = 87352) eGFR NON- AMER. (test 48 ML/MIN/1.73 code = 91168) CALC BUN/CREAT (test code = 17 RATIO [...] eGFR AMER. (test code 55 ML/MIN/1.73 = 32184) eGFR NON- AMER. (test 48 ML/MIN/1.73 code = 29758) CALC BUN/CREAT (test code = 17 RATIO 2235) SODIUM (test code = 2231) 141 MEQ/L POTASSIUM (test code = 2228) 4.5 MEQ/L CHLORIDE (test code = 2215) 106 MEQ/L CARBON DIOXIDE (test code = 22 MEQ/L 2206) CALCIUM (test code = 2209) 9.3 MG/DL PROTEIN, TOTAL (test code = 7.3 G/DL 9) ALBUMIN (test code = 2201) 4.2 G/DL [...] URINE, RANDOM (test code 226.7 MG/DL = 12525) CALC ALBUMIN/CREAT, RND (test 1246 MG/G code = 12264) ALBUMIN/CREATININE RATIO, RANDOM URINE [ADDED]2018-02-14 00:00:00 Test Item Value Reference Range Interpretation Comments CREATININE, URINE, CONC. (test 181.9 MG/DL code = 2072) ALBUMIN, URINE, RANDOM (test code 226.7 MG/DL = 31869) CALC ALBUMIN/CREAT, RND (test 1246 MG/G code = 14920) CBC W/AUTO DIFF WITH PLATELETS [ADDED]2018-02-14 00:00:00 [...] Interpretation Comments HEMOGLOBIN A1c (test code = 57502) 7.3 % HEMOGLOBIN A1c [ADDED]2018-02-14 00:00:00 Test Item Value Reference Range Interpretation Comments HEMOGLOBIN A1c (test code = 35887) 7.3 % HEMOGLOBIN A1c [ADDED]2018-02-14 00:00:00 Test Item Value Reference Range Interpretation Comments HEMOGLOBIN A1c (test code = 42868) 7.3 % LIPID PANEL [ADDED]2018-02-14 00:00:00 Test [...] eGFR AMER. (test code 55 ML/MIN/1.73 = 57006) eGFR NON- AMER. (test 48 ML/MIN/1.73 code = 90370) CALC BUN/CREAT (test code = 17 RATIO 2235) SODIUM (test code = 2231) 141 MEQ/L POTASSIUM (test code = 2228) 4.5 MEQ/L CHLORIDE (test code = 2215) 106 MEQ/L CARBON DIOXIDE (test code = 22 MEQ/L 2206) CALCIUM (test code = 2209) 9.3 MG/DL PROTEIN, TOTAL (test code = 7.3 G/DL 2229) ALBUMIN (test code = 2201) 4.2 G/DL [...] eGFR AMER. (test code 55 ML/MIN/1.73 = 97022) eGFR NON- AMER. (test 48 ML/MIN/1.73 code = 62433) CALC BUN/CREAT (test code = 17 RATIO [...] 2218) 16 U/L ALT (test code = 221) 13 U/L ALBUMIN/CREATININE RATIO, RANDOM URINE [ADDED]2018-02-14 00:00:00 Test Item Value Reference Range Interpretation Comments CREATININE, URINE, CONC. (test 181.9 MG/DL code = 2072) ALBUMIN, URINE, RANDOM (test code 226.7 MG/DL = 57915) CALC ALBUMIN/CREAT, RND (test 1246 MG/G code = 74556) ALBUMIN/CREATININE RATIO, RANDOM URINE [ADDED]2018-02-14 00:00:00 Test Item Value Reference Range Interpretation Comments CREATININE, URINE, CONC. (test 181.9 MG/DL code = 2072) ALBUMIN, URINE, RANDOM (test code 226.7 MG/DL = 52805) CALC ALBUMIN/CREAT, RND (test 1246 MG/G code = 32791) CBC W/AUTO DIFF WITH PLATELETS [ADDED]2018-02-14 00:00:00 [...] Interpretation Comments HEMOGLOBIN A1c (test code = 01605) 7.3 % HEMOGLOBIN A1c [ADDED]2018-02-14 00:00:00 Test Item Value Reference Range Interpretation Comments HEMOGLOBIN A1c (test code = 52755) 7.3 % HEMOGLOBIN A1c [ADDED]2018-02-14 00:00:00 Test Item Value Reference Range Interpretation Comments HEMOGLOBIN A1c (test code = 32857) 7.3 % DNA DS [id number] 00:00:00 Test Item Value Reference Range Interpretation Comments dsDNA ANTIBODY (test code = 4287) <1.0 IU/ML WEEMS AND GRAIN ELEVATOR OPERATOR [id number] 00:00:00 Test Item Value Reference Range Interpretation Comments WEEMS (Sm) ANTIBODY (test code = <0.2 AI 46166) GRAIN ELEVATOR OPERATOR ANTIBODY (test code = 60506) 6.4 AI HEMOGLOBIN [id number] 00:00:00 Test Item Value Reference Range Interpretation Comments HEMOGLOBIN A1c (test code = 88826) 7.5 % HEMOGLOBIN [id number] 00:00:00 Test Item Value Reference Range Interpretation Comments HEMOGLOBIN A1c (test code = 03673) 7.5 % DNA DS ANTIBODY [id number] 00:00:00 Test Item Value Reference Range Interpretation Comments dsDNA ANTIBODY REFLEX (test code = NEGATIVE 92132) LIPID PANEL [ADDED]2017-07-31 00:00:00 Test Item Value Reference Range Interpretation Comments CHOLESTEROL (test code = 2210) 179 MG/DL TRIGLYCERIDES (test code = 2232) 193 MG/DL HDL CHOLESTEROL (test code = 2220) 56 MG/DL CALC LDL CHOL (test code = 2237) 84 MG/DL RISK RATIO LDL/HDL (test code = 1.51 RATIO 2238) DNA DS [id number] 00:00:00 Test Item Value Reference Range Interpretation Comments dsDNA ANTIBODY (test code = 4287) <1.0 IU/ML WEEMS AND GRAIN ELEVATOR OPERATOR [id number] 00:00:00 Test Item Value Reference Range Interpretation Comments WEEMS (Sm) ANTIBODY (test code = <0.2 AI 58430) GRAIN ELEVATOR OPERATOR ANTIBODY (test code = 68085) 6.4 AI HEMOGLOBIN [id number] 00:00:00 Test Item Value Reference Range Interpretation Comments HEMOGLOBIN A1c (test code = 68002) 7.5 % HEMOGLOBIN [id number] 00:00:00 Test Item Value Reference Range Interpretation Comments HEMOGLOBIN A1c (test code = 31773) 7.5 % LIPID PANEL [ADDED]2017-07-31 00:00:00 Test Item Value Reference Range Interpretation Comments CHOLESTEROL (test code = 2210) 179 MG/DL TRIGLYCERIDES (test code = 2232) 193 MG/DL HDL CHOLESTEROL (test code = 2220) 56 MG/DL CALC LDL CHOL (test code = 2237) 84 MG/DL RISK RATIO LDL/HDL (test code = 1.51 RATIO 2238) DNA DS ANTIBODY [id number] 00:00:00 Test Item Value Reference Range Interpretation Comments dsDNA ANTIBODY REFLEX (test code = NEGATIVE 69248) DNA DS [id number] 00:00:00 Test Item Value Reference Range Interpretation Comments dsDNA ANTIBODY (test code = 4287) <1.0 IU/ML HEMOGLOBIN [id number] 00:00:00 Test Item Value Reference Range Interpretation Comments HEMOGLOBIN A1c (test code = 78994) 7.5 % HEMOGLOBIN [id number] 00:00:00 Test Item Value Reference Range Interpretation Comments HEMOGLOBIN A1c (test code = 52075) 7.5 % WEEMS AND GRAIN ELEVATOR OPERATOR [id number] 00:00:00 Test Item Value Reference Range Interpretation Comments WEEMS (Sm) ANTIBODY (test code = <0.2 AI 94854) GRAIN ELEVATOR OPERATOR ANTIBODY (test code = 46791) 6.4 AI HEMOGLOBIN [id number] 00:00:00 Test Item Value Reference Range Interpretation Comments HEMOGLOBIN A1c (test code = 19304) 7.5 % WEEMS AND GRAIN ELEVATOR OPERATOR [id number] 00:00:00 Test Item Value Reference Range Interpretation Comments WEEMS (Sm) ANTIBODY (test code = <0.2 AI 44680) GRAIN ELEVATOR OPERATOR ANTIBODY (test code = 27501) 6.4 AI DNA DS ANTIBODY [id number] 00:00:00 Test Item Value Reference Range Interpretation Comments dsDNA ANTIBODY REFLEX (test code = NEGATIVE 70181) DNA DS ANTIBODY [id number] 00:00:00 Test Item Value Reference Range Interpretation Comments dsDNA ANTIBODY REFLEX (test code = NEGATIVE 56523) LIPID PANEL [ADDED]2017-07-31 00:00:00 Test Item Value [...] code = 1.51 RATIO 2238) DNA DS [id number] 00:00:00 Test Item Value Reference Range Interpretation Comments dsDNA ANTIBODY (test code = 4287) <1.0 IU/ML DNA DS [id number] 00:00:00 Test Item Value Reference Range Interpretation Comments dsDNA ANTIBODY (test code = 4287) <1.0 IU/ML HEMOGLOBIN [id number] 00:00:00 Test Item Value Reference Range Interpretation Comments HEMOGLOBIN A1c (test code = 33848) 7.5 % WEEMS AND GRAIN ELEVATOR OPERATOR [id number] 00:00:00 Test Item Value Reference Range Interpretation Comments WEEMS (Sm) ANTIBODY (test code = <0.2 AI 49635) GRAIN ELEVATOR OPERATOR ANTIBODY (test code = 23125) 6.4 AI HEMOGLOBIN [id number] 00:00:00 Test Item Value Reference Range Interpretation Comments HEMOGLOBIN A1c (test code = 00187) 7.5 % HEMOGLOBIN [id number] 00:00:00 Test Item Value Reference Range Interpretation Comments HEMOGLOBIN A1c (test code = 13353) 7.5 % WEEMS AND GRAIN ELEVATOR OPERATOR [id number] 00:00:00 Test Item Value Reference Range Interpretation Comments WEEMS (Sm) ANTIBODY (test code = <0.2 AI 33986) GRAIN ELEVATOR OPERATOR ANTIBODY (test code = 99627) 6.4 AI DNA DS ANTIBODY [id number] 00:00:00 Test Item Value Reference Range Interpretation Comments dsDNA ANTIBODY REFLEX (test code = NEGATIVE 67480) LIPID PANEL [ADDED]2017-07-31 00:00:00 Test Item Value [...] = 1.51 RATIO 2238) DNA DS ANTIBODY [id number] 00:00:00 Test Item Value Reference Range Interpretation Comments dsDNA ANTIBODY REFLEX (test code = NEGATIVE 57704) DNA DS [id number] 00:00:00 Test Item Value Reference Range Interpretation Comments dsDNA ANTIBODY (test code = 4287) <1.0 IU/ML DNA DS [id number] 00:00:00 Test Item Value Reference Range Interpretation Comments dsDNA ANTIBODY (test code = 4287) <1.0 IU/ML WEEMS AND GRAIN ELEVATOR OPERATOR [id number] 00:00:00 Test Item Value Reference Range Interpretation Comments WEEMS (Sm) ANTIBODY (test code = <0.2 AI 06372) GRAIN ELEVATOR OPERATOR ANTIBODY (test code = 75054) 6.4 AI HEMOGLOBIN [id number] 00:00:00 Test Item Value Reference Range Interpretation Comments HEMOGLOBIN A1c (test code = 04224) 7.5 % HEMOGLOBIN [id number] 00:00:00 Test Item Value Reference Range Interpretation Comments HEMOGLOBIN A1c (test code = 25811) 7.5 % WEEMS AND GRAIN ELEVATOR OPERATOR [id number] 00:00:00 Test Item Value Reference Range Interpretation Comments WEEMS (Sm) ANTIBODY (test code = <0.2 AI 73923) GRAIN ELEVATOR OPERATOR ANTIBODY (test code = 69964) 6.4 AI HEMOGLOBIN [id number] 00:00:00 Test Item Value Reference Range Interpretation Comments HEMOGLOBIN A1c (test code = 94984) 7.5 % DNA DS ANTIBODY [id number] 00:00:00 Test Item Value Reference Range Interpretation Comments dsDNA ANTIBODY REFLEX (test code = NEGATIVE 46295) LIPID PANEL [ADDED]2017-07-31 00:00:00 Test Item Value [...] = 1.51 RATIO 2238) DNA DS ANTIBODY [id number] 00:00:00 Test Item Value Reference Range Interpretation Comments dsDNA ANTIBODY REFLEX (test code = NEGATIVE 44302) DNA DS [id number] 00:00:00 Test Item Value Reference Range Interpretation Comments dsDNA ANTIBODY (test code = 4287) <1.0 IU/ML ARMEN TITER AND PATTERN [REFLEX]2017-07-18 00:00:00 Test Item Value Reference Range Interpretation Comments PATTERN (test code = 03593) SS-A ARMEN TITER (test code = 3550) 1:40 TITER METHOD (test code = 48507) (NOTE) ARMEN TITER AND PATTERN [REFLEX]2017-07-18 00:00:00 Test Item Value Reference Range Interpretation Comments PATTERN (test code = 26121) SS-A ARMEN TITER (test code = 3550) 1:40 TITER METHOD (test code = 32725) (NOTE) ARMEN TITER AND PATTERN [REFLEX]2017-07-18 00:00:00 Test Item Value Reference Range Interpretation Comments PATTERN (test code = 98675) SS-A ARMEN TITER (test code = 3550) 1:40 TITER METHOD (test code = 43193) (NOTE) ARMEN TITER AND PATTERN [REFLEX]2017-07-18 00:00:00 Test Item Value Reference Range Interpretation Comments PATTERN (test code = 44149) SS-A ARMEN TITER (test code = 3550) 1:40 TITER METHOD (test code = 36664) (NOTE) ARMEN TITER AND PATTERN [REFLEX]2017-07-18 00:00:00 Test Item Value Reference Range Interpretation Comments PATTERN (test code = 73697) SS-A ARMEN TITER (test code = 3550) 1:40 TITER METHOD (test code = 67995) (NOTE) SEDIMENTATION [id number] 00:00:00 Test Item Value Reference Range Interpretation Comments SEDIMENTATION RATE (test code = 40 MM/HOUR 1017) SEDIMENTATION [id number] 00:00:00 Test Item Value Reference Range Interpretation Comments SEDIMENTATION RATE (test code = 40 MM/HOUR 1017) C-REACTIVE [id number] 00:00:00 Test Item Value Reference Range Interpretation Comments C-REACTIVE PROTEIN (test code = 0.2 MG/DL 3513) C-REACTIVE [id number] 00:00:00 Test Item Value Reference Range Interpretation Comments C-REACTIVE PROTEIN (test code = 0.2 MG/DL 3513) ARMEN (ANTI-NUCLEAR AB) WITH REFLEX [id number] 00:00:00 Test Item Value Reference Range Interpretation Comments ANTI-NUCLEAR ANTIBODIES (test code = POSITIVE 3506) ARMEN (ANTI-NUCLEAR AB) WITH REFLEX [id number] 00:00:00 Test Item Value Reference Range Interpretation Comments ANTI-NUCLEAR ANTIBODIES (test code = POSITIVE 3506) VITAMIN D, 25 [id number] 00:00:00 Test Item Value Reference Range Interpretation Comments VITAMIN D, 25 OH (test code = 4958) 24 NG/ML RHEUMATOID FACTOR, [id number] 00:00:00 Test Item Value Reference Range Interpretation Comments RHEUMATOID FACTOR, QUANT (test code 11 IU/ML = 3502) RHEUMATOID FACTOR, [id number] 00:00:00 Test Item Value Reference Range Interpretation Comments RHEUMATOID FACTOR, QUANT (test code 11 IU/ML = 3502) SEDIMENTATION [id number] 00:00:00 Test Item Value Reference Range Interpretation Comments SEDIMENTATION RATE (test code = 40 MM/HOUR 1017) C-REACTIVE [id number] 00:00:00 Test Item Value Reference Range Interpretation Comments C-REACTIVE PROTEIN (test code = 0.2 MG/DL 3513) ARMEN (ANTI-NUCLEAR AB) WITH REFLEX [id number] 00:00:00 Test Item Value Reference Range Interpretation Comments ANTI-NUCLEAR ANTIBODIES (test code = POSITIVE 3506) VITAMIN D, 25 [id number] 00:00:00 Test Item Value Reference Range Interpretation Comments VITAMIN D, 25 OH (test code = 4958) 24 NG/ML RHEUMATOID FACTOR, [id number] 00:00:00 Test Item Value Reference Range Interpretation Comments RHEUMATOID FACTOR, QUANT (test code 11 IU/ML = 3502) RHEUMATOID FACTOR, [id number] 00:00:00 Test Item Value Reference Range Interpretation Comments RHEUMATOID FACTOR, QUANT (test code 11 IU/ML = 3502) SEDIMENTATION [id number] 00:00:00 Test Item Value Reference Range Interpretation Comments SEDIMENTATION RATE (test code = 40 MM/HOUR 1017) C-REACTIVE [id number] 00:00:00 Test Item Value Reference Range Interpretation Comments C-REACTIVE PROTEIN (test code = 0.2 MG/DL 3513) ARMEN (ANTI-NUCLEAR AB) WITH REFLEX [id number] 00:00:00 Test Item Value Reference Range Interpretation Comments ANTI-NUCLEAR ANTIBODIES (test code = POSITIVE 3506) VITAMIN D, 25 [id number] 00:00:00 Test Item Value Reference Range Interpretation Comments VITAMIN D, 25 OH (test code = 4958) 24 NG/ML VITAMIN D, 25 [id number] 00:00:00 Test Item Value Reference Range Interpretation Comments VITAMIN D, 25 OH (test code = 4958) 24 NG/ML RHEUMATOID FACTOR, [id number] 00:00:00 Test Item Value Reference Range Interpretation Comments RHEUMATOID FACTOR, QUANT (test code 11 IU/ML = 3502) RHEUMATOID FACTOR, [id number] 00:00:00 Test Item Value Reference Range Interpretation Comments RHEUMATOID FACTOR, QUANT (test code 11 IU/ML = 3502) RHEUMATOID FACTOR, [id number] 00:00:00 Test Item Value Reference Range Interpretation Comments RHEUMATOID FACTOR, QUANT (test code 11 IU/ML = 3502) SEDIMENTATION [id number] 00:00:00 Test Item Value Reference Range Interpretation Comments SEDIMENTATION RATE (test code = 40 MM/HOUR 1017) SEDIMENTATION [id number] 00:00:00 Test Item Value Reference Range Interpretation Comments SEDIMENTATION RATE (test code = 40 MM/HOUR 1017) C-REACTIVE [id number] 00:00:00 Test Item Value Reference Range Interpretation Comments C-REACTIVE PROTEIN (test code = 0.2 MG/DL 3513) C-REACTIVE [id number] 00:00:00 Test Item Value Reference Range Interpretation Comments C-REACTIVE PROTEIN (test code = 0.2 MG/DL 3513) ARMEN (ANTI-NUCLEAR AB) WITH REFLEX [id number] 00:00:00 Test Item Value Reference Range Interpretation Comments ANTI-NUCLEAR ANTIBODIES (test code = POSITIVE 3506) ARMEN (ANTI-NUCLEAR AB) WITH REFLEX [id number] 00:00:00 Test Item Value Reference Range Interpretation Comments ANTI-NUCLEAR ANTIBODIES (test code = POSITIVE 3506) VITAMIN D, 25 [id number] 00:00:00 Test Item Value Reference Range Interpretation Comments VITAMIN D, 25 OH (test code = 4958) 24 NG/ML VITAMIN D, 25 [id number] 00:00:00 Test Item Value Reference Range Interpretation Comments VITAMIN D, 25 OH (test code = 4958) 24 NG/ML RHEUMATOID FACTOR, [id number] 00:00:00 Test Item Value Reference Range Interpretation Comments RHEUMATOID FACTOR, QUANT (test code 11 IU/ML = 3502) RHEUMATOID FACTOR, [id number] 00:00:00 Test Item Value Reference Range Interpretation Comments RHEUMATOID FACTOR, QUANT (test code 11 IU/ML = 3502) RHEUMATOID FACTOR, [id number] 00:00:00 Test Item Value Reference Range Interpretation Comments RHEUMATOID FACTOR, QUANT (test code 11 IU/ML = 3502) SEDIMENTATION [id number] 00:00:00 Test Item Value Reference Range Interpretation Comments SEDIMENTATION RATE (test code = 40 MM/HOUR 1017) SEDIMENTATION [id number] 00:00:00 Test Item Value Reference Range Interpretation Comments SEDIMENTATION RATE (test code = 40 MM/HOUR 1017) C-REACTIVE [id number] 00:00:00 Test Item Value Reference Range Interpretation Comments C-REACTIVE PROTEIN (test code = 0.2 MG/DL 3513) C-REACTIVE [id number] 00:00:00 Test Item Value Reference Range Interpretation Comments C-REACTIVE PROTEIN (test code = 0.2 MG/DL 3513) ARMEN (ANTI-NUCLEAR AB) WITH REFLEX [id number] 00:00:00 Test Item Value Reference Range Interpretation Comments ANTI-NUCLEAR ANTIBODIES (test code = POSITIVE 3506) ARMEN (ANTI-NUCLEAR AB) WITH REFLEX [id number] 00:00:00 Test Item Value Reference Range Interpretation Comments ANTI-NUCLEAR ANTIBODIES (test code = POSITIVE 3506) VITAMIN D, 25 [id number] 00:00:00 Test Item Value Reference Range Interpretation Comments VITAMIN D, 25 OH (test code = 4958) 24 NG/ML VITAMIN D, 25 [id number] 00:00:00 Test Item Value Reference Range Interpretation Comments VITAMIN D, 25 OH (test code = 4958) 24 NG/ML RHEUMATOID FACTOR, [id number] 00:00:00 Test Item Value Reference Range Interpretation Comments RHEUMATOID FACTOR, QUANT (test code 11 IU/ML = 3502) RHEUMATOID FACTOR, [id number] 00:00:00 Test Item Value Reference Range Interpretation Comments RHEUMATOID FACTOR, QUANT (test code 11 IU/ML = 3502) RHEUMATOID FACTOR, [id number] 00:00:00 Test Item Value Reference Range Interpretation Comments RHEUMATOID FACTOR, QUANT (test code 11 IU/ML = 3502) COMPREHENSIVE METABOLIC PANEL [ADDED]2017-05-01 00:00:00 Test Item Value Reference Range Interpretation Comments GLUCOSE (test code = 2217) 287 MG/DL BUN (test code = 2208) 33 MG/DL CREATININE (test code = 2214) 1.07 MG/DL eGFR AMER. (test code 62 ML/MIN/1.73 = 05841) eGFR NON- AMER. (test 53 ML/MIN/1.73 code = 33474) CALC BUN/CREAT (test code = 31 RATIO [...] eGFR AMER. (test code 62 ML/MIN/1.73 = 54198) eGFR NON- AMER. (test 53 ML/MIN/1.73 code = 05278) CALC BUN/CREAT (test code = 31 RATIO [...] URINE, CONC. (test 55.4 MG/DL code = 2071) MICROALBUMIN, RANDOM (test code = 60.7 MG/DL 66673) CALC MICROALB/CREAT RND (test code 1096 MG/G = 91795) MICROALBUMIN/CREATININE, RANDOM AND RATIO [ADDED]2017-05-01 00:00:00 Test Item Value Reference Range Interpretation Comments CREATININE, URINE, CONC. (test 55.4 MG/DL code = 2072) MICROALBUMIN, RANDOM (test code = 60.7 MG/DL 86108) CALC MICROALB/CREAT RND (test code 1096 MG/G = 62187) HEMOGLOBIN A1c [ADDED]2017-05-01 00:00:00 Test Item Value Reference Range Interpretation Comments HEMOGLOBIN A1c (test code = 33195) 8.1 % HEMOGLOBIN A1c [ADDED]2017-05-01 00:00:00 Test Item Value Reference Range Interpretation Comments HEMOGLOBIN A1c (test code = 10532) 8.1 % CBC W/AUTO DIFF WITH PLATELETS [...] eGFR AMER. (test code 62 ML/MIN/1.73 = 15155) eGFR NON- AMER. (test 53 ML/MIN/1.73 code = 73515) CALC BUN/CREAT (test code = 31 RATIO [...] MICROALBUMIN, RANDOM (test code = 60.7 MG/DL 59766) CALC MICROALB/CREAT RND (test code 1096 MG/G = 37221) HEMOGLOBIN A1c [ADDED]2017-05-01 00:00:00 Test Item Value Reference Range Interpretation Comments HEMOGLOBIN A1c (test code = 42210) 8.1 % HEMOGLOBIN A1c [ADDED]2017-05-01 00:00:00 Test Item Value Reference Range Interpretation Comments HEMOGLOBIN A1c (test code = 82718) 8.1 % CBC W/AUTO DIFF WITH PLATELETS [...] eGFR AMER. (test code 62 ML/MIN/1.73 = 91559) eGFR NON- AMER. (test 53 ML/MIN/1.73 code = 23501) CALC BUN/CREAT (test code = 31 RATIO [...] URINE, CONC. (test 55.4 MG/DL code = 2071) MICROALBUMIN, RANDOM (test code = 60.7 MG/DL 46891) CALC MICROALB/CREAT RND (test code 1096 MG/G = 89080) HEMOGLOBIN A1c [ADDED]2017-05-01 00:00:00 Test Item Value Reference Range Interpretation Comments HEMOGLOBIN A1c (test code = 94063) 8.1 % HEMOGLOBIN A1c [ADDED]2017-05-01 00:00:00 Test Item Value Reference Range Interpretation Comments HEMOGLOBIN A1c (test code = 34697) 8.1 % HEMOGLOBIN A1c [ADDED]2017-05-01 00:00:00 Test Item Value Reference Range Interpretation Comments HEMOGLOBIN A1c (test code = 14316) 8.1 % CBC W/AUTO DIFF WITH PLATELETS [...] eGFR AMER. (test code 62 ML/MIN/1.73 = 47360) eGFR NON- AMER. (test 53 ML/MIN/1.73 code = 62915) CALC BUN/CREAT (test code = 31 RATIO 2235) SODIUM (test code = 2231) 142 MEQ/L POTASSIUM (test code = 2228) 4.9 MEQ/L CHLORIDE (test code = 2215) 102 MEQ/L CARBON DIOXIDE (test code = 25 MEQ/L 220) CALCIUM (test code = 2209) 9.3 MG/DL PROTEIN, TOTAL (test code = 7.4 G/DL 2228) ALBUMIN (test code = 2201) 4.1 G/DL CALC GLOBULIN (test code = 3.3 G/DL 2240) CALC A/G RATIO (test code = 1.2 RATIO 223) BILIRUBIN, TOTAL (test code = 0.5 MG/DL [...] eGFR AMER. (test code 62 ML/MIN/1.73 = 37131) eGFR NON- AMER. (test 53 ML/MIN/1.73 code = 96427) CALC BUN/CREAT (test code = 31 RATIO [...] MICROALBUMIN, RANDOM (test code = 60.7 MG/DL 77416) CALC MICROALB/CREAT RND (test code 1096 MG/G = 97491) MICROALBUMIN/CREATININE, RANDOM AND RATIO [ADDED]2017-05-01 00:00:00 Test Item Value Reference Range Interpretation Comments CREATININE, URINE, CONC. (test 55.4 MG/DL code = 2072) MICROALBUMIN, RANDOM (test code = 60.7 MG/DL 80002) CALC MICROALB/CREAT RND (test code 1096 MG/G = 13487) HEMOGLOBIN A1c [ADDED]2017-05-01 00:00:00 Test Item Value Reference Range Interpretation Comments HEMOGLOBIN A1c (test code = 01848) 8.1 % HEMOGLOBIN A1c [ADDED]2017-05-01 00:00:00 Test Item Value Reference Range Interpretation Comments HEMOGLOBIN A1c (test code = 42904) 8.1 % HEMOGLOBIN A1c [ADDED]2017-05-01 00:00:00 Test Item Value Reference Range Interpretation Comments HEMOGLOBIN A1c (test code = 75594) 8.1 % CBC W/AUTO DIFF WITH PLATELETS [...] eGFR AMER. (test code 62 ML/MIN/1.73 = 39613) eGFR NON- AMER. (test 53 ML/MIN/1.73 code = 70812) CALC BUN/CREAT (test code = 31 RATIO [...] eGFR AMER. (test code 62 ML/MIN/1.73 = 20384) eGFR NON- AMER. (test 53 ML/MIN/1.73 code = 87999) CALC BUN/CREAT (test code = 31 RATIO [...] MICROALBUMIN, RANDOM (test code = 60.7 MG/DL 63610) CALC MICROALB/CREAT RND (test code 1096 MG/G = 78297) MICROALBUMIN/CREATININE, RANDOM AND RATIO [ADDED]2017-05-01 00:00:00 Test Item Value Reference Range Interpretation Comments CREATININE, URINE, CONC. (test 55.4 MG/DL code = 2072) MICROALBUMIN, RANDOM (test code = 60.7 MG/DL 93565) CALC MICROALB/CREAT RND (test code 1096 MG/G = 01748) HEMOGLOBIN A1c [ADDED]2017-05-01 00:00:00 Test Item Value Reference Range Interpretation Comments HEMOGLOBIN A1c (test code = 75558) 8.1 % HEMOGLOBIN A1c [ADDED]2017-05-01 00:00:00 Test Item Value Reference Range Interpretation Comments HEMOGLOBIN A1c (test code = 84436) 8.1 % HEMOGLOBIN A1c [ADDED]2017-05-01 00:00:00 Test Item Value Reference Range Interpretation Comments HEMOGLOBIN A1c (test code = 19401) 8.1 % CBC W/AUTO DIFF WITH PLATELETS [...] code = 1015) 207 K/UL COMPREHENSIVE METABOLIC [id number] 00:00:00 Test Item Value Reference Range Interpretation Comments GLUCOSE (test code = 2217) 173 MG/DL BUN (test code = 2208) 22 MG/DL CREATININE (test code = 2214) 1.01 MG/DL eGFR AMER. (test code 66 ML/MIN/1.73 = 99911) eGFR NON- AMER. (test 57 ML/MIN/1.73 code = 32089) CALC BUN/CREAT (test code = 22 RATIO [...] code = 2219) 13 U/L CBC W/AUTO [id number] 00:00:00 Test Item Value Reference Range Interpretation [...] code = 1015) 266 K/UL CBC W/AUTO [id number] 00:00:00 Test Item Value Reference Range Interpretation [...] code = 1015) 266 K/UL CBC W/AUTO [id number] 00:00:00 Test Item Value Reference Range Interpretation [...] (test code = 1015) 266 K/UL HEMOGLOBIN [id number] 00:00:00 Test Item Value Reference Range Interpretation Comments HEMOGLOBIN A1c (test code = 11781) 9.4 % HEMOGLOBIN [id number] 00:00:00 Test Item Value Reference Range Interpretation Comments HEMOGLOBIN A1c (test code = 42739) 9.4 % HEMOGLOBIN [id number] 00:00:00 Test Item Value Reference Range Interpretation Comments HEMOGLOBIN A1c (test code = 04687) 9.4 % URIC [id number] 00:00:00 Test Item Value Reference Range Interpretation Comments URIC ACID (test code = 2233) 4.7 MG/DL URIC [id number] 00:00:00 Test Item Value Reference Range Interpretation Comments URIC ACID (test code = 2233) 4.7 MG/DL VITAMIN D, 25 [id number] 00:00:00 Test Item Value Reference Range Interpretation Comments VITAMIN D, 25 OH (test code = 4958) 16 NG/ML VITAMIN D, 25 [id number] 00:00:00 Test Item Value Reference Range Interpretation Comments VITAMIN D, 25 OH (test code = 4958) 16 NG/ML [id number] 00:00:00 Test Item Value Reference Range Interpretation Comments TSH (test code = 2821) 4.260 UIU/ML [id number] 00:00:00 Test Item Value Reference Range Interpretation Comments TSH (test code = 2821) 4.260 UIU/ML LIPID [id number] 00:00:00 Test Item Value Reference Range Interpretation Comments CHOLESTEROL (test code = 2210) 152 MG/DL TRIGLYCERIDES (test code = 2232) 149 MG/DL HDL CHOLESTEROL (test code = 2220) 56 MG/DL CALC LDL CHOL (test code = 2237) 66 MG/DL RISK RATIO LDL/HDL (test code = 1.18 RATIO 2238) COMPREHENSIVE METABOLIC [id number] 00:00:00 Test Item Value Reference Range Interpretation Comments GLUCOSE (test code = 2217) 173 MG/DL BUN (test code = 2208) 22 MG/DL CREATININE (test code = 2214) 1.01 MG/DL eGFR AMER. (test code 66 ML/MIN/1.73 = 24920) eGFR NON- AMER. (test 57 ML/MIN/1.73 code = 70365) CALC BUN/CREAT (test code = 22 RATIO [...] code = 2219) 13 U/L CBC W/AUTO [id number] 00:00:00 Test Item Value Reference Range Interpretation [...] code = 1015) 266 K/UL CBC W/AUTO [id number] 00:00:00 Test Item Value Reference Range Interpretation [...] (test code = 1015) 266 K/UL HEMOGLOBIN [id number] 00:00:00 Test Item Value Reference Range Interpretation Comments HEMOGLOBIN A1c (test code = 24471) 9.4 % HEMOGLOBIN [id number] 00:00:00 Test Item Value Reference Range Interpretation Comments HEMOGLOBIN A1c (test code = 12531) 9.4 % URIC [id number] 00:00:00 Test Item Value Reference Range Interpretation Comments URIC ACID (test code = 2233) 4.7 MG/DL VITAMIN D, 25 [id number] 00:00:00 Test Item Value Reference Range Interpretation Comments VITAMIN D, 25 OH (test code = 4958) 16 NG/ML [id number] 00:00:00 Test Item Value Reference Range Interpretation Comments TSH (test code = 2821) 4.260 UIU/ML [id number] 00:00:00 Test Item Value Reference Range Interpretation Comments TSH (test code = 2821) 4.260 UIU/ML LIPID [id number] 00:00:00 Test Item Value Reference Range Interpretation Comments CHOLESTEROL (test code = 2210) 152 MG/DL TRIGLYCERIDES (test code = 2232) 149 MG/DL HDL CHOLESTEROL (test code = 2220) 56 MG/DL CALC LDL CHOL (test code = 2237) 66 MG/DL RISK RATIO LDL/HDL (test code = 1.18 RATIO 2238) COMPREHENSIVE METABOLIC [id number] 00:00:00 Test Item Value Reference Range Interpretation Comments GLUCOSE (test code = 2217) 173 MG/DL BUN (test code = 2208) 22 MG/DL CREATININE (test code = 2214) 1.01 MG/DL eGFR AMER. (test code 66 ML/MIN/1.73 = 60482) eGFR NON- AMER. (test 57 ML/MIN/1.73 code = 42841) CALC BUN/CREAT (test code = 22 RATIO 2235) SODIUM (test code = 2231) 140 MEQ/L POTASSIUM (test code = 2228) 4.9 MEQ/L CHLORIDE (test code = 2215) 103 MEQ/L CARBON DIOXIDE (test code = 23 MEQ/L 2205) CALCIUM (test code = 2209) 9.3 MG/DL PROTEIN, TOTAL (test code = 7.0 G/DL 2229) ALBUMIN (test code = 2201) 3.9 G/DL CALC GLOBULIN (test code = 3.1 G/DL 2240) CALC A/G RATIO (test code = 1.3 RATIO 2234) BILIRUBIN, TOTAL (test code = 0.4 MG/DL 2207) ALKALINE PHOSPHATASE (test 89 U/L code = 2204) AST (test code = 2218) 16 U/L ALT (test code = 2219) 13 U/L CBC W/AUTO [id number] 00:00:00 Test Item Value Reference Range Interpretation [...] code = 1015) 266 K/UL CBC W/AUTO [id number] 00:00:00 Test Item Value Reference Range Interpretation [...] (test code = 1015) 266 K/UL HEMOGLOBIN [id number] 00:00:00 Test Item Value Reference Range Interpretation Comments HEMOGLOBIN A1c (test code = 73995) 9.4 % HEMOGLOBIN [id number] 00:00:00 Test Item Value Reference Range Interpretation Comments HEMOGLOBIN A1c (test code = 28581) 9.4 % URIC [id number] 00:00:00 Test Item Value Reference Range Interpretation Comments URIC ACID (test code = 2233) 4.7 MG/DL VITAMIN D, 25 [id number] 00:00:00 Test Item Value Reference Range Interpretation Comments VITAMIN D, 25 OH (test code = 4958) 16 NG/ML [id number] 00:00:00 Test Item Value Reference Range Interpretation Comments TSH (test code = 2821) 4.260 UIU/ML [id number] 00:00:00 Test Item Value Reference Range Interpretation Comments TSH (test code = 2821) 4.260 UIU/ML [id number] 00:00:00 Test Item Value Reference Range Interpretation Comments TSH (test code = 2821) 4.260 UIU/ML LIPID [id number] 00:00:00 Test Item Value Reference Range Interpretation Comments CHOLESTEROL (test code = 2210) 152 MG/DL TRIGLYCERIDES (test code = 2232) 149 MG/DL HDL CHOLESTEROL (test code = 2220) 56 MG/DL CALC LDL CHOL (test code = 2237) 66 MG/DL RISK RATIO LDL/HDL (test code = 1.18 RATIO 2238) LIPID [id number] 00:00:00 Test Item Value Reference Range Interpretation Comments CHOLESTEROL (test code = 2210) 152 MG/DL TRIGLYCERIDES (test code = 2232) 149 MG/DL HDL CHOLESTEROL (test code = 2220) 56 MG/DL CALC LDL CHOL (test code = 2237) 66 MG/DL RISK RATIO LDL/HDL (test code = 1.18 RATIO 2238) COMPREHENSIVE METABOLIC [id number] 00:00:00 Test Item Value Reference Range Interpretation Comments GLUCOSE (test code = 2217) 173 MG/DL BUN (test code = 2208) 22 MG/DL CREATININE (test code = 2214) 1.01 MG/DL eGFR AMER. (test code 66 ML/MIN/1.73 = 88087) eGFR NON- AMER. (test 57 ML/MIN/1.73 code = 41006) CALC BUN/CREAT (test code = 22 RATIO [...] code = 2219) 13 U/L COMPREHENSIVE METABOLIC [id number] 00:00:00 Test Item Value Reference Range Interpretation Comments GLUCOSE (test code = 2217) 173 MG/DL BUN (test code = 2208) 22 MG/DL CREATININE (test code = 2214) 1.01 MG/DL eGFR AMER. (test code 66 ML/MIN/1.73 = 93449) eGFR NON- AMER. (test 57 ML/MIN/1.73 code = 38055) CALC BUN/CREAT (test code = 22 RATIO [...] code = 2219) 13 U/L CBC W/AUTO [id number] 00:00:00 Test Item Value Reference Range Interpretation [...] code = 1015) 266 K/UL CBC W/AUTO [id number] 00:00:00 Test Item Value Reference Range Interpretation [...] code = 1015) 266 K/UL CBC W/AUTO [id number] 00:00:00 Test Item Value Reference Range Interpretation [...] (test code = 1015) 266 K/UL HEMOGLOBIN [id number] 00:00:00 Test Item Value Reference Range Interpretation Comments HEMOGLOBIN A1c (test code = 49340) 9.4 % HEMOGLOBIN [id number] 00:00:00 Test Item Value Reference Range Interpretation Comments HEMOGLOBIN A1c (test code = 65603) 9.4 % HEMOGLOBIN [id number] 00:00:00 Test Item Value Reference Range Interpretation Comments HEMOGLOBIN A1c (test code = 71602) 9.4 % URIC [id number] 00:00:00 Test Item Value Reference Range Interpretation Comments URIC ACID (test code = 2233) 4.7 MG/DL URIC [id number] 00:00:00 Test Item Value Reference Range Interpretation Comments URIC ACID (test code = 2233) 4.7 MG/DL VITAMIN D, 25 [id number] 00:00:00 Test Item Value Reference Range Interpretation Comments VITAMIN D, 25 OH (test code = 4958) 16 NG/ML VITAMIN D, 25 [id number] 00:00:00 Test Item Value Reference Range Interpretation Comments VITAMIN D, 25 OH (test code = 4958) 16 NG/ML [id number] 00:00:00 Test Item Value Reference Range Interpretation Comments TSH (test code = 2821) 4.260 UIU/ML [id number] 00:00:00 Test Item Value Reference Range Interpretation Comments TSH (test code = 2821) 4.260 UIU/ML [id number] 00:00:00 Test Item Value Reference Range Interpretation Comments TSH (test code = 2821) 4.260 UIU/ML LIPID [id number] 00:00:00 Test Item Value Reference Range Interpretation Comments CHOLESTEROL (test code = 2210) 152 MG/DL TRIGLYCERIDES (test code = 2232) 149 MG/DL HDL CHOLESTEROL (test code = 2220) 56 MG/DL CALC LDL CHOL (test code = 2237) 66 MG/DL RISK RATIO LDL/HDL (test code = 1.18 RATIO 2238) LIPID [id number] 00:00:00 Test Item Value Reference Range Interpretation Comments CHOLESTEROL (test code = 2210) 152 MG/DL TRIGLYCERIDES (test code = 2232) 149 MG/DL HDL CHOLESTEROL (test code = 2220) 56 MG/DL CALC LDL CHOL (test code = 2237) 66 MG/DL RISK RATIO LDL/HDL (test code = 1.18 RATIO 2238) COMPREHENSIVE METABOLIC [id number] 00:00:00 Test Item Value Reference Range Interpretation Comments GLUCOSE (test code = 2217) 173 MG/DL BUN (test code = 2208) 22 MG/DL CREATININE (test code = 2214) 1.01 MG/DL eGFR AMER. (test code 66 ML/MIN/1.73 = 45951) eGFR NON- AMER. (test 57 ML/MIN/1.73 code = 50551) CALC BUN/CREAT (test code = 22 RATIO [...] code = 2219) 13 U/L COMPREHENSIVE METABOLIC [id number] 00:00:00 Test Item Value Reference Range Interpretation Comments GLUCOSE (test code = 2217) 173 MG/DL BUN (test code = 2208) 22 MG/DL CREATININE (test code = 2214) 1.01 MG/DL eGFR AMER. (test code 66 ML/MIN/1.73 = 32723) eGFR NON- AMER. (test 57 ML/MIN/1.73 code = 60872) CALC BUN/CREAT (test code = 22 RATIO [...] code = 2219) 13 U/L CBC W/AUTO [id number] 00:00:00 Test Item Value Reference Range Interpretation [...] code = 1015) 266 K/UL CBC W/AUTO [id number] 00:00:00 Test Item Value Reference Range Interpretation [...] code = 1015) 266 K/UL CBC W/AUTO [id number] 00:00:00 Test Item Value Reference Range Interpretation [...] (test code = 1015) 266 K/UL HEMOGLOBIN [id number] 00:00:00 Test Item Value Reference Range Interpretation Comments HEMOGLOBIN A1c (test code = 10508) 9.4 % HEMOGLOBIN [id number] 00:00:00 Test Item Value Reference Range Interpretation Comments HEMOGLOBIN A1c (test code = 00285) 9.4 % HEMOGLOBIN [id number] 00:00:00 Test Item Value Reference Range Interpretation Comments HEMOGLOBIN A1c (test code = 31096) 9.4 % URIC [id number] 00:00:00 Test Item Value Reference Range Interpretation Comments URIC ACID (test code = 2233) 4.7 MG/DL URIC [id number] 00:00:00 Test Item Value Reference Range Interpretation Comments URIC ACID (test code = 2233) 4.7 MG/DL VITAMIN D, 25 [id number] 00:00:00 Test Item Value Reference Range Interpretation Comments VITAMIN D, 25 OH (test code = 4958) 16 NG/ML VITAMIN D, 25 [id number] 00:00:00 Test Item Value Reference Range Interpretation Comments VITAMIN D, 25 OH (test code = 4958) 16 NG/ML [id number] 00:00:00 Test Item Value Reference Range Interpretation Comments TSH (test code = 2821) 4.260 UIU/ML [id number] 00:00:00 Test Item Value Reference Range Interpretation Comments TSH (test code = 2821) 4.260 UIU/ML [id number] 00:00:00 Test Item Value Reference Range Interpretation Comments TSH (test code = 2821) 4.260 UIU/ML LIPID [id number] 00:00:00 Test Item Value Reference Range Interpretation Comments CHOLESTEROL (test code = 2210) 152 MG/DL TRIGLYCERIDES (test code = 2232) 149 MG/DL HDL CHOLESTEROL (test code = 2220) 56 MG/DL CALC LDL CHOL (test code = 2237) 66 MG/DL RISK RATIO LDL/HDL (test code = 1.18 RATIO 2238) LIPID [id number] 00:00:00 Test Item Value Reference Range Interpretation Comments CHOLESTEROL (test code = 2210) 152 MG/DL TRIGLYCERIDES (test code = 2232) 149 MG/DL HDL CHOLESTEROL (test code = 2220) 56 MG/DL CALC LDL CHOL (test code = 2237) 66 MG/DL RISK RATIO LDL/HDL (test code = 1.18 RATIO 2238) COMPREHENSIVE METABOLIC [id number] 00:00:00 Test Item Value Reference Range Interpretation Comments GLUCOSE (test code = 2217) 173 MG/DL BUN (test code = 2208) 22 MG/DL CREATININE (test code = 2214) 1.01 MG/DL eGFR AMER. (test code 66 ML/MIN/1.73 = 68109) eGFR NON- AMER. (test 57 ML/MIN/1.73 code = 61907) CALC BUN/CREAT (test code = 22 RATIO [...] code = 2219) 13 U/L CBC W/AUTO [id number] 00:00:00 Test Item Value Reference Range Interpretation [...] code = 1015) 294 K/UL CBC W/AUTO [id number] 00:00:00 Test Item Value Reference Range Interpretation [...] (test code = 1015) 294 K/UL HEMOGLOBIN [id number] 00:00:00 Test Item Value Reference Range Interpretation Comments HEMOGLOBIN A1c (test code = 21252) 6.5 % HEMOGLOBIN [id number] 00:00:00 Test Item Value Reference Range Interpretation Comments HEMOGLOBIN A1c (test code = 12989) 6.5 % HEMOGLOBIN [id number] 00:00:00 Test Item Value Reference Range Interpretation Comments HEMOGLOBIN A1c (test code = 86185) 6.5 % THYROID II PROFILE (T3U, T4, [...] code = 2821) 3.1 UIU/ML COMPREHENSIVE METABOLIC [id number] 00:00:00 Test Item Value Reference Range Interpretation Comments GLUCOSE (test code = 2217) 74 MG/DL BUN (test code = 2208) 34 MG/DL CREATININE (test code = 2214) 1.11 MG/DL eGFR AMER. (test code 60 ML/MIN/1.73 = 65467) eGFR NON- AMER. (test 51 ML/MIN/1.73 code = 20982) CALC BUN/CREAT (test code = 31 RATIO [...] (test code = 2219) 13 U/L LIPID [id number] 00:00:00 Test Item Value Reference Range Interpretation Comments CHOLESTEROL (test code = 2210) 220 MG/DL TRIGLYCERIDES (test code = 2232) 136 MG/DL HDL CHOLESTEROL (test code = 2220) 57 MG/DL CALC LDL CHOL (test code = 2237) 136 MG/DL RISK RATIO LDL/HDL (test code = 2.38 RATIO 2238) CBC W/AUTO [id number] 00:00:00 Test Item Value Reference Range Interpretation [...] code = 1015) 294 K/UL CBC W/AUTO [id number] 00:00:00 Test Item Value Reference Range Interpretation [...] (test code = 1015) 294 K/UL HEMOGLOBIN [id number] 00:00:00 Test Item Value Reference Range Interpretation Comments HEMOGLOBIN A1c (test code = 78483) 6.5 % HEMOGLOBIN [id number] 00:00:00 Test Item Value Reference Range Interpretation Comments HEMOGLOBIN A1c (test code = 57170) 6.5 % THYROID II PROFILE (T3U, T4, T7, TSH)[id number] 00:00:00 Test Item Value Reference Range Interpretation Comments T3 UPTAKE (test code = 2817) 30.8 % T4 (THYROXINE) (test code = 2819) 5.3 UG/DL CALCULATED T7 (FTI) (test code = 1.63 2820) TSH (test code = 2821) 3.1 UIU/ML COMPREHENSIVE METABOLIC [id number] 00:00:00 Test Item Value Reference Range Interpretation Comments GLUCOSE (test code = 2217) 74 MG/DL BUN (test code = 2208) 34 MG/DL CREATININE (test code = 2214) 1.11 MG/DL eGFR AMER. (test code 60 ML/MIN/1.73 = 31147) eGFR NON- AMER. (test 51 ML/MIN/1.73 code = 84992) CALC BUN/CREAT (test code = 31 RATIO [...] BILIRUBIN, TOTAL (test code = 0.3 MG/DL 7) ALKALINE PHOSPHATASE (test 98 U/L code = 2204) AST (test code = 2218) 18 U/L ALT (test code = 2219) 13 U/L LIPID [id number] 00:00:00 Test Item Value Reference Range Interpretation Comments CHOLESTEROL (test code = 2210) 220 MG/DL TRIGLYCERIDES (test code = 2232) 136 MG/DL HDL CHOLESTEROL (test code = 2220) 57 MG/DL CALC LDL CHOL (test code = 2237) 136 MG/DL RISK RATIO LDL/HDL (test code = 2.38 RATIO 2238) CBC W/AUTO [id number] 00:00:00 Test Item Value Reference Range Interpretation [...] code = 1015) 294 K/UL CBC W/AUTO [id number] 00:00:00 Test Item Value Reference Range Interpretation [...] (test code = 1015) 294 K/UL HEMOGLOBIN [id number] 00:00:00 Test Item Value Reference Range Interpretation Comments HEMOGLOBIN A1c (test code = 99794) 6.5 % HEMOGLOBIN [id number] 00:00:00 Test Item Value Reference Range Interpretation Comments HEMOGLOBIN A1c (test code = 43982) 6.5 % THYROID II PROFILE (T3U, T4, T7, TSH)[id number] 00:00:00 Test Item Value Reference Range Interpretation Comments T3 UPTAKE (test code = 2817) 30.8 % T4 (THYROXINE) (test code = 2819) 5.3 UG/DL CALCULATED T7 (FTI) (test code = 1.63 2820) TSH (test code = 2821) 3.1 UIU/ML COMPREHENSIVE METABOLIC [id number] 00:00:00 Test Item Value Reference Range Interpretation Comments GLUCOSE (test code = 2217) 74 MG/DL BUN (test code = 2208) 34 MG/DL CREATININE (test code = 2214) 1.11 MG/DL eGFR AMER. (test code 60 ML/MIN/1.73 = 72820) eGFR NON- AMER. (test 51 ML/MIN/1.73 code = 19180) CALC BUN/CREAT (test code = 31 RATIO [...] code = 2219) 13 U/L COMPREHENSIVE METABOLIC [id number] 00:00:00 Test Item Value Reference Range Interpretation Comments GLUCOSE (test code = 2217) 74 MG/DL BUN (test code = 2208) 34 MG/DL CREATININE (test code = 2214) 1.11 MG/DL eGFR AMER. (test code 60 ML/MIN/1.73 = 07531) eGFR NON- AMER. (test 51 ML/MIN/1.73 code = 61753) CALC BUN/CREAT (test code = 31 RATIO [...] A/G RATIO (test code = 1.2 RATIO 4) BILIRUBIN, TOTAL (test code = 0.3 MG/DL 2206) ALKALINE PHOSPHATASE (test 98 U/L code = 2204) AST (test code = 2218) 18 U/L ALT (test code = 2219) 13 U/L LIPID [id number] 00:00:00 Test Item Value Reference Range Interpretation Comments CHOLESTEROL (test code = 2210) 220 MG/DL TRIGLYCERIDES (test code = 2232) 136 MG/DL HDL CHOLESTEROL (test code = 2220) 57 MG/DL CALC LDL CHOL (test code = 2237) 136 MG/DL RISK RATIO LDL/HDL (test code = 2.38 RATIO 2238) LIPID [id number] 00:00:00 Test Item Value Reference Range Interpretation Comments CHOLESTEROL (test code = 2210) 220 MG/DL TRIGLYCERIDES (test code = 2232) 136 MG/DL HDL CHOLESTEROL (test code = 2220) 57 MG/DL CALC LDL CHOL (test code = 2237) 136 MG/DL RISK RATIO LDL/HDL (test code = 2.38 RATIO 2238) CBC W/AUTO [id number] 00:00:00 Test Item Value Reference Range Interpretation [...] code = 1015) 294 K/UL CBC W/AUTO [id number] 00:00:00 Test Item Value Reference Range Interpretation [...] code = 1015) 294 K/UL CBC W/AUTO [id number] 00:00:00 Test Item Value Reference Range Interpretation [...] (test code = 1015) 294 K/UL HEMOGLOBIN [id number] 00:00:00 Test Item Value Reference Range Interpretation Comments HEMOGLOBIN A1c (test code = 95390) 6.5 % HEMOGLOBIN [id number] 00:00:00 Test Item Value Reference Range Interpretation Comments HEMOGLOBIN A1c (test code = 78513) 6.5 % HEMOGLOBIN [id number] 00:00:00 Test Item Value Reference Range Interpretation Comments HEMOGLOBIN A1c (test code = 83380) 6.5 % THYROID II PROFILE (T3U, T4, [...] code = 2821) 3.1 UIU/ML COMPREHENSIVE METABOLIC [id number] 00:00:00 Test Item Value Reference Range Interpretation Comments GLUCOSE (test code = 2217) 74 MG/DL BUN (test code = 2208) 34 MG/DL CREATININE (test code = 2214) 1.11 MG/DL eGFR AMER. (test code 60 ML/MIN/1.73 = 45074) eGFR NON- AMER. (test 51 ML/MIN/1.73 code = 82361) CALC BUN/CREAT (test code = 31 RATIO 2235) SODIUM (test code = 2231) 142 MEQ/L POTASSIUM (test code = 2228) 4.6 MEQ/L CHLORIDE (test code = 2215) 105 MEQ/L CARBON DIOXIDE (test code = 21 MEQ/L 2205) CALCIUM (test code = 2209) 9.3 MG/DL PROTEIN, TOTAL (test code = 7.6 G/DL 222) ALBUMIN (test code = 2201) 4.1 G/DL CALC GLOBULIN (test code = 3.5 G/DL 2240) CALC A/G RATIO (test code = 1.2 RATIO 2234) BILIRUBIN, TOTAL (test code = 0.3 MG/DL 220) ALKALINE PHOSPHATASE (test 98 U/L code = 2204) AST (test code = 2218) 18 U/L ALT (test code = 2219) 13 U/L COMPREHENSIVE METABOLIC [id number] 00:00:00 Test Item Value Reference Range Interpretation Comments GLUCOSE (test code = 2217) 74 MG/DL BUN (test code = 2208) 34 MG/DL CREATININE (test code = 2214) 1.11 MG/DL eGFR AMER. (test code 60 ML/MIN/1.73 = 71815) eGFR NON- AMER. (test 51 ML/MIN/1.73 code = 23626) CALC BUN/CREAT (test code = 31 RATIO [...] = 0.3 MG/DL 2207) ALKALINE PHOSPHATASE (test 98 U/L code = 2204) AST (test code = 2218) 18 U/L ALT (test code = 2219) 13 U/L LIPID [id number] 00:00:00 Test Item Value Reference Range Interpretation Comments CHOLESTEROL (test code = 2210) 220 MG/DL TRIGLYCERIDES (test code = 2232) 136 MG/DL HDL CHOLESTEROL (test code = 2220) 57 MG/DL CALC LDL CHOL (test code = 2237) 136 MG/DL RISK RATIO LDL/HDL (test code = 2.38 RATIO 2238) LIPID [id number] 00:00:00 Test Item Value Reference Range Interpretation Comments CHOLESTEROL (test code = 2210) 220 MG/DL TRIGLYCERIDES (test code = 2232) 136 MG/DL HDL CHOLESTEROL (test code = 2220) 57 MG/DL CALC LDL CHOL (test code = 2237) 136 MG/DL RISK RATIO LDL/HDL (test code = 2.38 RATIO 2238) CBC W/AUTO [id number] 00:00:00 Test Item Value Reference Range Interpretation [...] code = 1015) 294 K/UL CBC W/AUTO [id number] 00:00:00 Test Item Value Reference Range Interpretation [...] code = 1015) 294 K/UL CBC W/AUTO [id number] 00:00:00 Test Item Value Reference Range Interpretation [...] (test code = 1015) 294 K/UL HEMOGLOBIN [id number] 00:00:00 Test Item Value Reference Range Interpretation Comments HEMOGLOBIN A1c (test code = 02573) 6.5 % HEMOGLOBIN [id number] 00:00:00 Test Item Value Reference Range Interpretation Comments HEMOGLOBIN A1c (test code = 91305) 6.5 % HEMOGLOBIN [id number] 00:00:00 Test Item Value Reference Range Interpretation Comments HEMOGLOBIN A1c (test code = 16059) 6.5 % THYROID II PROFILE (T3U, T4, [...] code = 2821) 3.1 UIU/ML COMPREHENSIVE METABOLIC [id number] 00:00:00 Test Item Value Reference Range Interpretation Comments GLUCOSE (test code = 2217) 74 MG/DL BUN (test code = 2208) 34 MG/DL CREATININE (test code = 2214) 1.11 MG/DL eGFR AMER. (test code 60 ML/MIN/1.73 = 44465) eGFR NON- AMER. (test 51 ML/MIN/1.73 code = 11890) CALC BUN/CREAT (test code = 31 RATIO [...] code = 2219) 13 U/L COMPREHENSIVE METABOLIC [id number] 00:00:00 Test Item Value Reference Range Interpretation Comments GLUCOSE (test code = 2217) 74 MG/DL BUN (test code = 2208) 34 MG/DL CREATININE (test code = 2214) 1.11 MG/DL eGFR AMER. (test code 60 ML/MIN/1.73 = 28291) eGFR NON- AMER. (test 51 ML/MIN/1.73 code = 39649) CALC BUN/CREAT (test code = 31 RATIO [...] (test code = 2219) 13 U/L LIPID [id number] 00:00:00 Test Item Value Reference Range Interpretation Comments CHOLESTEROL (test code = 2210) 220 MG/DL TRIGLYCERIDES (test code = 2232) 136 MG/DL HDL CHOLESTEROL (test code = 2220) 57 MG/DL CALC LDL CHOL (test code = 2237) 136 MG/DL RISK RATIO LDL/HDL (test code = 2.38 RATIO 2238) LIPID [id number] 00:00:00 Test Item Value Reference Range Interpretation Comments CHOLESTEROL (test code = 2210) 220 MG/DL TRIGLYCERIDES (test code = 2232) 136 MG/DL HDL CHOLESTEROL (test code = 2220) 57 MG/DL CALC LDL CHOL (test code = 2237) 136 MG/DL RISK RATIO LDL/HDL (test code = 2.38 RATIO 2238) CBC W/AUTO [id number] 00:00:00 Test Item Value Reference Range Interpretation [...]
--- NOTE | 2022-05-16 14:07 | RAD REPORT ---
EXAM DESCRIPTION: CT - [id number] - 05/16/2022 1:45 pm CLINICAL HISTORY: Trauma, head and neck injury. fall, blood thinners COMPARISON: Head C Spine Mpr Wo Con dated 04/20/2022 TECHNIQUE: Axial 5 mm thick images of the head were obtained. Axial 2 mm thick images of the cervical spine were obtained with sagittal and coronal reconstruction images generated and reviewed. All CT scans are performed using dose optimization technique as appropriate and may include automated exposure control or mA/KV adjustment according to patient size. FINDINGS: CT HEAD WITHOUT CONTRAST: No acute hemorrhage, hydrocephalus or extra-axial collection is identified.Mild generalized brain atr ophy is present with mild periventricular and deep white matter chronic microvascular ischemic change s.No areas of brain edema or midline shift. The paranasal sinuses and mastoids are clear.The calvarium is intact. Large right posterior scalp hem atoma. CT CERVICAL SPINE WITHOUT CONTRAST: No fracture or subluxation.No prevertebral soft tissues swelling is identified. IMPRESSION: No acute intracranial or cervical spine findings.
[2022-05-16] MEDS ORDERED: LIDOCAINE 1% W/EPI 1:100,000 30 ML VIAL ONE (14:33)
[2022-05-16] MEDS ORDERED: TDAP (DIPHTH,PERTUSS(ACELL),TET VAC) 0.5 ML VIAL IMVAC ONE (14:34)
--- NOTE | 2022-05-16 15:52 | ER ---
Nurse's Notes [facility] Name: Kinga Singleton Age: 71 yrs Sex: Female : 1950 Arrival Date: 05/16/2022 Time: 13:20 Bed 9 Private MD: Diagnosis: Fall (on)(from) sidewalk curb;Unspecified injury of head, initial encounter;Scalp hematoma;Contusion of right hand Presentation: 05/16 13:20 Chief complaint: EMS states: fell down 2 steps, was hit by a door and caused her to aa5 fall onto right side of body. Pt c/o pain to back of head, right anterior and posterior shoulder. EMS reports laceration to back of head, controlled bleeding. Negative LOC. Pt takes ASA. 13:20 Care prior to arrival: None. Mechanism of Injury: Fall down 2 steps. Trauma event aa5 details: Injury occurred in the [facility], Injury occurred: at home. Injury occurred: May 16, 2022. 13:20 Method Of Arrival: EMS: [facility] aa5 13:20 Acuity: JITENDRA 2 aa5 13:20 Coronavirus screen: At this time, the client does not indicate any symptoms associated aa5 with coronavirus-19. Ebola Screen: Patient denies travel to an Ebola-affected area in the 21 days before illness onset. Initial Sepsis Screen: Does the patient meet any 2 criteria? No. Patient's initial sepsis screen is negative. Does the patient have a suspected source of infection? No. Patient's initial sepsis screen is negative. Risk Assessment: Do you want to hurt yourself or someone else? Patient reports no desire to harm self or others. Onset of symptoms was May 16, 2022. Trauma Activation: Alert Physician: ED Physician; Name: ; Notified At: ; Arrived At: Physician: General Surgeon; Name: ; Notified At: ; Arrived At: Physician: Radiology; Name: ; Notified At: ; Arrived At: Physician: Respiratory; Name: ; Notified At: ; Arrived At: Physician: Lab; Name: ; Notified At: ; Arrived At: Historical: - Allergies: 13:23 No Known Allergies; aa5 - PMHx: 13:23 Diabetes - IDDM; Hypercholesterolemia; Hypertensive disorder; aa5 - PSHx: 13:23 Total abdominal hysterectomy; aa5 - Immunization history:: Adult Immunizations unknown. - Social history:: Smoking status: Patient denies any tobacco usage or history of. - Immunization history: Last tetanus immunization: unknown. Screenin:11 [facility] ED Fall Risk Assessment (Adult) History of falling in the last 3 months, ld1 including since admission No falls in past 3 months (0 pts). Humpty Dumpty Scale Fall Assessment Tool (age< 18yrs) Age 13 years and above (1 pt) Gender Female (1 pt) Fall Risk Score/ Level Low Fall Risk: </= 11 points Oriented to surroundings, Maintained a safe environment: Age specific bed with railing, Bed in low position\T\ wheels locked, Assess need for siderail use, Locks on, Rm \T\ paths clutter \T\ obstacle free, Proper lighting, Call light, personal item w/in reach, Alarms as needed, Educated pt \T\ family on fall prevention, incl. call for assistance when getting out of bed, Assessed \T\ reinforced patient's understanding of fall precautions, Provided non-skid footwear, Hourly rounding (assess needs \T\ fall precautionary measures) Use of ambulatory aids, as needed (educated on \T\ assisted with). Abuse screen: Denies threats or abuse. Denies injuries from another. Nutritional screening: No deficits noted. Tuberculosis screening: No symptoms or risk factors identified. Fall Risk Fall in past 12 months (25 points). Primary Survey: 13:20 NO uncontrolled hemorrhage observed. A: The client is awake and alert. The airway is aa5 patent. Breathing/Chest: Spontaneous respiratory effort, equal unlabored respirations, breath sounds clear bilaterally, regular pattern, symmetrical chest rise and fall. Circulation: Skin color: pink. Disability Client is alert. Exposure/Environment: A warming method has been applied: A warm blanket has been provided to the patient. 16:18 Reassessment Alertness and Airway: Awake and alert. The airway is patent. Breathing: ld1 Spontaneous respiratory effort, equal unlabored respirations, breath sounds clear bilaterally, regular pattern with symmetrical chest rise and fall. Respiratory effort Spontaneous Unlabored. Assessment: 15:09 Reassessment: Patient appears in no apparent distress at this time. No changes from ld1 previously documented assessment. Patient and/or family updated on plan of care and expected duration. Pain level reassessed. Patient is alert, oriented x 3, equal unlabored respirations, skin warm/dry/pink. See triage assessment Patient denies pain at this time. General: Appears in no apparent distress. comfortable, Behavior is calm, cooperative, appropriate for age. Pain: Denies pain. Neuro: Level of Consciousness is awake, alert, obeys commands, Oriented to person, place, time, situation. Cardiovascular: Capillary refill < 3 seconds Patient's skin is warm and dry. Respiratory: Airway is patent Respiratory effort is even, unlabored. GI: Abdomen is round non-distended. : No signs and/or symptoms were reported regarding the genitourinary system. EENT: No signs and/or symptoms were reported regarding the EENT system. Derm: No signs and/or symptoms reported regarding the dermatologic system. Musculoskeletal: No signs and/or symptoms reported regarding the musculoskeletal system. Injury Description: Laceration sustained to right parietal area moderate bleeding noted at this time. Vital Signs: 13:20 BP 143 / 73; Pulse 89; Resp 20 S; Temp 97.8(O); Pulse Ox 95% on R/A; aa5 15:09 BP 149 / 76; Pulse 76; Resp 18; Pulse Ox 97% on R/A; Pain 0/10; ld1 [place]ans[place] Coma Score: 13:20 Eye Response: spontaneous(4). Verbal Response: oriented(5). Motor Response: obeys aa5 commands(6). Total: 15. 14:00 Eye Response: spontaneous(4). Verbal Response: oriented(5). Motor Response: obeys ld1 commands(6). Total: 15. 15:09 Eye Response: spontaneous(4). Verbal Response: oriented(5). Motor Response: obeys ld1 commands(6). Total: 15. Trauma Score (Adult): 13:20 Eye Response: spontaneous(1); Verbal Response: oriented(1); Motor Response: obeys aa5 commands(2); Systolic BP: > 89 mm Hg(4); Respiratory Rate: 10 to 29 per min(4); Fransico Score: 15; Trauma Score: 12 15:09 Eye Response: spontaneous(1); Verbal Response: oriented(1); Motor Response: obeys ld1 commands(2); Systolic BP: > 89 mm Hg(4); Respiratory Rate: 10 to 29 per min(4); Fransico Score: 15; Trauma Score: 12 ED Course: 13:20 Patient arrived in ED. jh5 13:20 [facility]C [facility] snw 13:20 Franky Boucher DO is Attending Physician. snw 13:20 Arm band placed on Patient placed in an exam room, on a stretcher. aa5 13:23 Triage completed. aa5 13:24 Patient maintains SpO2 saturation greater than 95% on room air. Thermoregulation: warm aa5 blanket given to patient. 13:28 Nona Reed, JACKELINE is Primary Nurse. ld1 13:47 CT Head C Spine In Process Unspecified. EDMS 15:11 Patient has correct armband on for positive identification. Placed in gown. Bed in low ld1 position. Call light in reach. Side rails up X2. property assessment monitor on. Pulse ox on. NIBP on. Door closed. Noise minimized. Warm blanket given. 15:11 No provider procedures requiring assistance completed. ld1 15:48 Hand Right 3 View XRAY In Process Unspecified. EDMS 16:19 Patient did not have IV access during this emergency room visit. 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 Exp: ld1 07/04/2022. Lot #: [id number]. } Route: IM; Site: right deltoid; 15:13 Follow up: Response: (VIS) Vaccine information sheet provided today. Questions and/or ld1 concerns addressed. VIS edition date: Jan 07, 2021.; No adverse reaction Medication: 15:11 Vaccine Information Statement (VIS) provided today. Questions and/or concerns ld1 addressed. VIS edition date: May 16, 2022. Intake: 16:19 PO: 0ml; Total: 0ml. ld1 Outcome: 15:51 Discharge ordered by . snw 16:18 Discharged to home ambulatory, with family. ld1 16:18 Condition: stable 16:18 Discharge instructions given to patient, family, Instructed on discharge instructions, follow up and referral plans. medication usage, Demonstrated understanding of instructions, follow-up care, medications, Prescriptions given X 1. 16:19 Patient's length of stay in the Emergency Department was greater than 2 hours. ld1 16:19 Patient left the ED. ld1 Signatures: Dispatcher [employer] EDMS Britta Gtz, JAMIE-C DIE TRY OUT WORKER STAMPING-[place] Miranda Rodriguez RN RN aa5 Nnoa Reed RN RN ld1 Mari Metcalf RN RN jh5
--- NOTE | 2022-05-16 15:52 | EDPHYS ---
Physician Documentation [facility] Name: Kinga Singleton Age: 71 yrs Sex: Female : 1950 Arrival Date: 05/16/2022 Time: 13:20 Bed 9 Private MD: ED Physician Franky Boucher HPI: 05/16 13:30 This 71 yrs old Female presents to ER via EMS with complaints of Fall Injury. snw 13:30 Details of fall: The patient fell from a height, two steps from porch, from an upright snw position, while standing. Onset: The symptoms/episode began/occurred suddenly. Associated injuries: The patient sustained injury to the head. Severity of symptoms: At their worst the symptoms were moderate. The patient has not experienced similar symptoms in the past. [facility]. Historical: - Allergies: 13:23 No Known Allergies; aa5 - PMHx: 13:23 Diabetes - IDDM; Hypercholesterolemia; Hypertensive disorder; aa5 - PSHx: 13:23 Total abdominal hysterectomy; aa5 - Immunization history:: Adult Immunizations unknown. - Social history:: Smoking status: Patient denies any tobacco usage or history of. - Immunization history: Last tetanus immunization: unknown. ROS: 13:29 Constitutional: Negative for fever, chills, and weight loss, Eyes: Negative for injury, snw pain, redness, and discharge, ENT: Negative for injury, pain, and discharge, Neck: Negative for injury, pain, and swelling, Cardiovascular: Negative for chest pain, palpitations, and edema, Respiratory: Negative for shortness of breath, cough, wheezing, and pleuritic chest pain, Abdomen/GI: Negative for abdominal pain, nausea, vomiting, diarrhea, and constipation, Back: Negative for injury and pain, : Negative for injury, bleeding, discharge, and swelling, MS/Extremity: Negative for injury and deformity, Skin: Negative for injury, rash, and discoloration, Neuro: Negative for headache, weakness, numbness, tingling, and seizure, Psych: Negative for depression, anxiety, suicide ideation, homicidal ideation, and hallucinations. Exam: 13:28 Constitutional: This is a well developed, well nourished patient who is awake, alert, snw and in no acute distress. 13:28 Eyes: Pupils equal round and reactive to light, extra-ocular motions intact. Lids and lashes normal. Conjunctiva and sclera are non-icteric and not injected. Cornea within normal limits. Periorbital areas with no swelling, redness, or edema. ENT: Nares patent. No nasal discharge, no septal abnormalities noted. Tympanic membranes are normal and external auditory canals are clear. Oropharynx with no redness, swelling, or masses, exudates, or evidence of obstruction, uvula midline. Mucous membranes moist. Neck: Trachea midline, no thyromegaly or masses palpated, and no cervical lymphadenopathy. Supple, full range of motion without nuchal rigidity, or vertebral point tenderness. No Meningismus. Chest/axilla: Normal chest wall appearance and motion. Nontender with no deformity. No lesions are appreciated. Cardiovascular: Regular rate and rhythm with a normal S1 and S2. No gallops, murmurs, or rubs. Normal PMI, no JVD. No pulse deficits. Respiratory: Lungs have equal breath sounds bilaterally, clear to auscultation and percussion. No rales, rhonchi or wheezes noted. No increased work of breathing, no retractions or nasal flaring. Abdomen/GI: Soft, non-tender, with normal bowel sounds. No distension or tympany. No guarding or rebound. No evidence of tenderness throughout. Back: No spinal tenderness. No costovertebral tenderness. Full range of motion. MS/ Extremity: Pulses equal, no cyanosis. Neurovascular intact. Full, normal range of motion. 13:28 Head/face: Noted is contusion, that is deep, of the left side of the back of head, hematoma, that is severe, of the left side of the back of head/large. 13:28 Neuro: Orientation: appropriate for stated age. Vital Signs: 13:20 BP 143 / 73; Pulse 89; Resp 20 S; Temp 97.8(O); Pulse Ox 95% on R/A; aa5 15:09 BP 149 / 76; Pulse 76; Resp 18; Pulse Ox 97% on R/A; Pain 0/10; ld1 [place] Coma Score: 13:20 Eye Response: spontaneous(4). Verbal Response: oriented(5). Motor Response: obeys aa5 commands(6). Total: 15. 14:00 Eye Response: spontaneous(4). Verbal Response: oriented(5). Motor Response: obeys ld1 commands(6). Total: 15. 15:09 Eye Response: spontaneous(4). Verbal Response: oriented(5). Motor Response: obeys ld1 commands(6). Total: 15. Trauma Score (Adult): 13:20 Eye Response: spontaneous(1); Verbal Response: oriented(1); Motor Response: obeys aa5 commands(2); Systolic BP: > 89 mm Hg(4); Respiratory Rate: 10 to 29 per min(4); [place] Score: 15; Trauma Score: 12 15:09 Eye Response: spontaneous(1); Verbal Response: oriented(1); Motor Response: obeys ld1 commands(2); Systolic BP: > 89 mm Hg(4); Respiratory Rate: 10 to 29 per min(4); [place] Score: 15; Trauma Score: 12 Laceration: 14:33 Wound Repair of 5cm ( 2.0in ) subcutaneous laceration to right side of the back of snw head. Irregularly shaped.. Distal neuro/vascular/tendon intact. Anesthesia: Local anesthetic administered with 3 mls of 1% lidocaine w/ Epi. Wound prep: Extensive cleansing. Skin closed with 5 1-0 Chauncey using simple sutures and sterile technique. Skin closed with 2 3-0 Ethilon using simple sutures and sterile technique. Dressed with pressure dressing. Patient tolerated well. MDM: 13:20 Patient medically screened. snw 15:52 Data reviewed: vital signs, nurses notes. Data interpreted: Pulse oximetry: on room air snw is 97 %. Interpretation: acceptable. Counseling: I had a detailed discussion with the patient and/or guardian regarding: the historical points, exam findings, and any diagnostic results supporting the discharge/admit diagnosis, the presence of at least one elevated blood pressure reading (>120/80) during this emergency department visit, radiology results, the need for outpatient follow up, to return to the emergency department if symptoms worsen or persist or if there are any questions or concerns that arise at home. Response to treatment: the patient's symptoms have mildly improved after treatment. Special discussion: Based on the patient's history, exam and DX evaluation, there is no indication for emergent intervention or inpatient TX. It is understood by the patient/guardian that if the SXs persist or worsen they need to return immediately for re-evaluation. Based on the history and exam findings, there is no indication for further emergent testing or inpatient evaluation. I discussed with the patient/guardian the need to see the primary care provider for further evaluation of the symptoms. 05/16 13:39 Order name: CT Head C Spine; Complete Time: 14:30 snw 05/16 14:47 Order name: Hand Right 3 View XRAY; Complete Time: 16:06 snw 05/16 16:14 Order name: Finger Splint: right fifth finger; Complete Time: 16:18 snw EC:25 Rate is 84 beats/min. Rhythm is regular. QRS [place] is Normal. [place] interval is normal. QRS snw interval is normal. QT interval is normal. Clinical impression: NSR w/ Non-specific ST/T Changes. Administered Medications: 14:47 Drug: Lidocaine-Epinephrine -1%: (1:100,000) 1 vials {Note: Administered by JAMIE Juares.} Volume: 20 ml; Route: Infiltration; 15:13 Follow up: Response: No adverse reaction ld1 15:00 Drug: Tetanus-Diphtheria Toxoid Adult 0.5 ml {Budder: [employer]). Exp: ld1 07/04/2022. Lot #: [id number]. } Route: IM; Site: right deltoid; 15:13 Follow up: Response: (VIS) Vaccine information sheet provided today. Questions and/or ld1 concerns addressed. VIS edition date: Jan 07, 2021.; No adverse reaction Disposition: 14:03 Co-signature as Attending Physician, Franky ADEN/INSPECTOR HANDBAG FRAMES's history reviewed, patient ms3 interviewed, and examined. HPI: 71-year-old female with past medical history of diabetes, hypercholesterolemia, hypertension presents via [facility] status post stepping backwards and falling down 2 steps off her porch. My personal exam of patient reveals: On exam patient is alert, in no apparent distress, nontoxic-appearing. Heart rate and rhythm are regular without murmurs rubs or gallops. Lungs are clear to auscultation bilaterally. Chest is nontender to palpation, no crepitus noted. Abdomen is nontender to palpation with bowel sounds present. Scalp is significant for posterior hematoma with overlying laceration. I agree with assessment and care plan and confirm the diagnosis (es) above. Disposition Summary: 05/16/22 15:51 Discharge Ordered Location: Home snw Condition: Stable snw Diagnosis - Fall (on)(from) sidewalk curb snw - Unspecified injury of head, initial encounter snw - Scalp hematoma snw - Contusion of right hand snw Followup: snw - With: Private Physician - When: 1 week - Reason: Recheck today's complaints, Continuance of care, Re-evaluation by your physician Followup: snw - With: Emergency Department - When: 1 week - Reason: Worsening of condition, Staple/Suture removal Discharge Instructions: - Discharge Summary Sheet snw - Head Injury, Adult snw - Hematoma snw - Fall Prevention in the Home, Adult snw - Laceration Care, Adult, [id number] snw Forms: - Medication Reconciliation Form snw - Thank You Letter snw - Antibiotic Education snw - Prescription Opioid Use snw Prescriptions: - Mobic 7.5 mg Oral Tablet - take 1 tablet by ORAL route once daily take with food; 20 tablet; Refills: 0, snw Product Selection Permitted Signatures: Dispatcher [employer] EDMS Britta Gtz, INSPECTOR INSULATION-C INSPECTOR INSULATION-Csnw Miranda Rodriguez, RN RN aa5 Franky Boucher DO DO ms3 Nona Reed RN RN ld1
--- NOTE | 2022-05-16 16:03 | RAD REPORT ---
EXAM DESCRIPTION: RAD - Hand Right 3 View - 05/16/2022 3:47 pm CLINICAL HISTORY: Pain Fall, trauma, pain COMPARISON: Hand Right 3 View dated 04/05/2022 FINDINGS: Diffuse osteopenia is seen. Subtle lucency is seen at the base of the middle phalanx of th e fifth finger, likely nondisplaced fracture.
[2022-05-16 16:26] VITALS: TEMP 97.8
[2022-05-16 16:27] VITALS: BP 149/76; O2SAT 97
--- NOTE | 2022-05-18 08:09 | EKG ---
Test Date: 2022-05-16 Test Time: 13:25:25 Farm Equipment Operator: HERMAN MEASUREMENT RESULTS: Intervals: Rate: 84 IA: 208 QRSD: 84 QT: 382 QTc: 451 [place]: P: 48 IA: 208 QRS: 73 T: 65 INTERPRETIVE STATEMENTS: Normal sinus rhythm Normal ECG Compared to ECG 01/28/2022 13:40:33 Sinus tachycardia no longer present Myocardial infarct finding no longer present Electronically Signed On 05-18-22 08:02:29 PHYSICIAN REPRESENTATIVE by Malcolm Kaur
== END 2022-05-16 16:19 | disposition home or self-care (01) ==
LOC: ER 13:10
DX: S00.03XA Contusion of scalp, initial encounter (principal); S09.90XA Unspecified injury of head, initial encounter; S60.221A Contusion of right hand, initial encounter; W10.1XXA Fall (on)(from) sidewalk curb, initial encounter; Z23 Encounter for immunization; I10 Essential (primary) hypertension
CPT/HCPCS: 70450; 72125; 90471; 93005; 99285

== ENCOUNTER 2022-06-22 18:51 | Inpatient (IN) | payer OTHER ==
--- OUTSIDE RECORDS SUMMARY | 2022-06-22 19:33 | XMS REPORT | Continuity of Care Document ---
:1950 Author Organization [facility] t Address [address] [place] [address] Care Team Providers Name Role Phone Faye SINGH, [facility] Primary Care Physician [phone] Kari Groves Attending Clinician Unavailable Leslie Hinds Attending Clinician LESLIE MARTINEZ Attending Clinician Unavailable Doctor Unassigned, [place] Attending Clinician Unavailable Kari Groves Admitting Clinician Unavailable Payers Payer Name Policy Type Policy Number Effective Date Expiration Date S ource Problems Condition Condition Condition Status Onset Resolution Last Treating Co mments Source Name Details Category Date Date Treatment Clinician Date Chronic Chronic Disease Active Univers pain of pain of 7-31 [place] [facility] Sjogren's Sjogren's Disease Active Uni vers syndrome: syndrome: 7-11 ity of +SSA +SSA 00:00: [address] Proteinuri Proteinuri Disease Active U nivers a a 6-13 ity of 00:00: [address] ESR raised ESR raised Disease Active U nivers 6-06 ity of 00:00: [address] 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 4-04 it y of present present 00:00: [address] Immunizati Immunizati Disease Active 2018-0 U nivers on on 09-05 [place] [facility] Rotator Rotator Disease Active Univers cuff tear cuff tear 4-04 ity of arthropath arthropath [place] right y of right 00 Me dical shoulder shoulder Branch Dry eyes Dry eyes Disease Active Unive rs 4-04 ity of 00:00: [place] [address] [facility] Pain in Pain in Disease Active Univers both hands both hands 04 it y of 00:00: [place] 00 [facility] Allergies, Adverse Reactions, Alerts Allergy Allergy Status Severity Reaction(s) Onset Inactive Treating Comm ents Source Name Type Date Date Clinician No Known DA Active U 2013-06 [facility] NO KNOWN Drug Active Univers ALLERGIE Class ity of S [facility] Social History Social Habit Start Date Stop Date Quantity Comments Source Tobacco use and 2017-09-05 2017-09-05 Never used Universit y of exposure 00:00:00 00:00:00 [facility] Alcohol intake 2017-09-05 2017-09-05 Current University of 00:00:00 00:00:00 non-drinker of [facility] alcohol Branch (finding) Sex Ass[birth year] Universit y of 00:00:00 00:00:00 [facility] Smoking Status Start Date Stop Date Source Never smoker [facility] Medications Ordered Filled Start Stop Current Ordering Indication Dosage Frequency Signature Comments Components Source Medication Medication Date Date Medication? Clinician (SIG) Name Name Dose 2021-06 No Unknown 2-21 00:00: 00 Dose 2021-06 No Unknown 2-21 00:00: 00 Dose 2021-06 No Unknown 2-21 00:00: 00 TAKE 2021-06 No TABLET AT 2-13 BEDTIME. 00:00: 00 TAKE 2021-06 No TABLET 2-13 EVERY 12 00:00: HOURS 00 DAILY. TAKE 2021-06 No TABLET 2-13 TWICE 00:00: DAILY. 00 TOME JAGDISH 2021-06 No TABLETA 2-13 TODOS LOS D 00:00: 00 TAKE 2021-06 No TABLET BY 2-13 MOUTH DAILY 00:00: JULIET JAGDISH 00 TABLETA JAGDISH VECES AL PITO PARA LA PRESION ARTERIAL JUNUMET XR 2021-06 No 100-1000 MG 2-13 TB24 00:00: 00 ALENDRONATE 2021-06 No SODIUM 10 2-13 MG TABS 00:00: 00 ICOSAPENT 2021-06 No ETHYL 1 GM 2-13 CAPS 00:00: 00 INJECT 2021-06 No UNITS BELOW 2-13 THE SKIN AT 00:00: BEDTIME 00 INJECT 55 UNITS TOME JAGDISH 2021-06 No TABLETA 2-13 CADA OCHO 00:00: HORAS 00 TOME JAGDISH 2021-06 No TABLETA DOS 2-13 VECES AL D 00:00: A 00 TAKE 1-2 2021-06 No CAPSULES BY 2-13 MOUTH 00:00: NIGHTLY. 00 TRAMADOL 2021-06 No HCL 50 MG 2-13 TABS 00:00: 00 TOME JAGDISH 2021-06 No TABLETA 2-13 CADA DOCE 00:00: HORAS A 00 DIARIO TOME 1 C 2021-06 No PSULA POR V 2-13 A ORAL 00:00: EVERY 12 00 HOURS FOR 10 DAYS CARVEDILOL 2021-06 No 12.5 MG 2-13 TABS 00:00: 00 Dose 2021-06 No Unknown 2-13 00:00: 00 Dose 2021-06 No Unknown 2-13 00:00: 00 Dose 2021-06 No Unknown 2-13 00:00: 00 Dose 2021-06 No Unknown 2-13 00:00: 00 LEVEMIR 2021-06 No FLEXTOUCH 2-13 100 UNIT/ML 00:00: SOPN 00 ONDANSETRON 2021-06 No ODT 8 MG 2-13 TBDP 00:00: 00 Dose 2021-06 No Unknown 2-13 00:00: 00 TAKE 1 2021-06 No TABLET BY 2-13 MOUTH DAILY 00:00: JULIET JAGDISH 00 TABLETA JAGDISH VECE AL PITO PARA LA SHANNAN OSEA TOME JAGDISH 2021-06 No TABLETA POR 2-13 V A ORAL 00:00: TODOS LOS D 00 CLINDAMYCIN 2021-06 No HYDROCHLORI 2-13 DE 300 MG 00:00: CAPS 00 LOVASTATIN 2021-06 No 20 MG TABS 2-13 00:00: 00 AMLODIPINE 2021-06 No BESYLATE 10 2-13 MG TABS 00:00: 00 CIPROFLOXAC 2021-06 No IN 2-13 HYDROCHLORI 00:00: DE 250 MG 00 TABS ATORVASTATI 2021-06 No N CALCIUM 2-13 40 MG TABS 00:00: 00 TOME JAGDISH 2021-06 No TABLETA 2-13 TODOS LOS D 00:00: 00 TOME 2 C 2021-06 No PSULAS POR 2-13 V A ORAL 00:00: TWICE A DAY 00 WITH MEALS GABAPENTIN 2021-06 No 100 MG CAPS 2-13 00:00: 00 TAKE 2021-06 No TABLET AT 2-13 BEDTIME. 00:00: 00 TAKE 1 2021-06 No TABLET 2-13 EVERY 12 00:00: HOURS 00 DAILY. TAKE 1 2021-06 No TABLET 2-13 TWICE 00:00: DAILY. 00 TOME JAGDISH 2021-06 No TABLETA 2-13 TODOS LOS D 00:00: 00 TAKE 1 2021-06 No TABLET BY 2-13 MOUTH DAILY 00:00: JULIET JAGDISH 00 TABLETA JAGDISH VECES AL PITO PARA LA PRESION ARTERIAL JANUMET XR 2021-06 No 100-1000 MG 2-13 TB24 00:00: 00 ALENDRONATE 2021-06 No SODIUM 10 2-13 MG TABS 00:00: 00 ICOSAPENT 2021-06 No ETHYL 1 GM 2-13 CAPS 00:00: 00 INJECT 2021-06 No UNITS BELOW 2-13 THE SKIN AT 00:00: BEDTIME 00 INJECT 55 UNITS TOME 2021-06 No TABLETA 2-13 CADA OCHO 00:00: HORAS 00 TOME 2021-06 No TABLETA DOS 2-13 VECES AL D 00:00: A 00 TAKE 1-2 2021-06 No CAPSULES BY 2-13 MOUTH 00:00: NIGHTLY. 00 TRAMADOL 2021-06 No HCL 50 MG 2-13 TABS 00:00: 00 TOME JAGDISH 2021-06 No TABLETA 2-13 CADA DOCE 00:00: HORAS A 00 DIARIO TOME 1 C 2021-06 No PSULA POR V 2-13 A ORAL 00:00: EVERY 12 00 HOURS FOR 10 DAYS CARVEDILOL 2021-06 No 12.5 MG 2-13 TABS 00:00: 00 Dose 2021-06 No Unknown 2-13 00:00: 00 Dose 2021-06 No Unknown 2-13 00:00: 00 Dose 2021-06 No Unknown 2-13 00:00: 00 Dose 2021-06 No Unknown 2-13 00:00: 00 LEVEMIR 2021-06 No FLEXTOUCH 2-13 100 UNIT/ML 00:00: SOPN 00 ONDANSETRON 2021-06 No ODT 8 MG 2-13 TBDP 00:00: 00 Dose 2021-06 No Unknown 2-13 00:00: 00 TAKE 2021-06 No TABLET BY 2-13 MOUTH DAILY 00:00: JULIET JAGDISH 00 TABLETA JAGDISH VECE AL PITO PARA LA SHANNAN OSEA TOME JAGDISH 2021-06 No TABLETA POR 2-13 V A ORAL 00:00: TODOS LOS D 00 CLINDAMYCIN 2021-06 No HYDROCHLORI 2-13 DE 300 MG 00:00: CAPS 00 LOVASTATIN 2021-06 No 20 MG TABS 2-13 00:00: 00 AMLODIPINE 2021-06 No BESYLATE 10 2-13 MG TABS 00:00: 00 CIPROFLOXAC 2021-06 No IN 2-13 HYDROCHLORI 00:00: DE 250 MG 00 TABS ATORVASTATI 2021-06 No N CALCIUM 2-13 40 MG TABS 00:00: 00 TOME JAGDISH 2021-06 No TABLETA 2-13 TODOS LOS D 00:00: 00 TOME 2 C 2021-06 No PSULAS POR 2-13 V A ORAL 00:00: TWICE A DAY 00 WITH MEALS GABAPENTIN 2021-06 No 100 MG CAPS 2-13 00:00: 00 TAKE 2021-06 No TABLET AT 2-13 BEDTIME. 00:00: 00 TAKE 2021-06 No TABLET 2-13 EVERY 12 00:00: HOURS 00 DAILY. TAKE 2021-06 No TABLET 2-13 TWICE 00:00: DAILY. 00 TAKE 2021-06 No TABLET BY 2-13 MOUTH DAILY 00:00: JULIET JAGDISH 00 TABLETA JAGDISH VECES AL PITO PARA LA PRESION ARTERIAL TAKE 1 2021-06 No TABLET BY 2-13 MOUTH DAILY 00:00: JULIET JAGDISH 00 TABLETA JAGDISH VECES AL PITO PARA LA PRESION ARTERIAL JANUMET XR 2021-06 No 100-1000 MG 2-13 TB24 00:00: 00 ALENDRONATE 2021-06 No SODIUM 10 2-13 MG TABS 00:00: 00 ICOSAPENT 2021-06 No ETHYL 1 GM 2-13 CAPS 00:00: 00 INJECT 2021-06 No UNITS BELOW 2-13 THE SKIN AT 00:00: BEDTIME 00 INJECT 55 UNITS TOME JAGDISH 2021-06 No TABLETA 2-13 CADA OCHO 00:00: HORAS 00 TOME JAGDISH 2021-06 No TABLETA DOS 2-13 VECES AL D 00:00: A 00 TAKE 1-2 2021-06 No CAPSULES BY 2-13 MOUTH 00:00: NIGHTLY. 00 TRAMADOL 2021-06 No HCL 50 MG 2-13 TABS 00:00: 00 TOME JAGDISH 2021-06 No TABLETA 2-13 CADA DOCE 00:00: HORAS A 00 DIARIO TOME 1 C 2021-06 No PSULA POR V 2-13 A ORAL 00:00: EVERY 12 00 HOURS FOR 10 DAYS CARVEDILOL 2021-06 No 12.5 MG 2-13 TABS 00:00: 00 Dose 2021-06 No Unknown 2-13 00:00: 00 Dose 2021-06 No Unknown 2-13 00:00: 00 Dose 2021-06 No Unknown 2-13 00:00: 00 Dose 2021-06 No Unknown 2-13 00:00: 00 LEVEMIR 2021-06 No FLEXTOUCH 2-13 100 UNIT/ML 00:00: SOPN 00 ONDANSETRON 2021-06 No ODT 8 MG 2-13 TBDP 00:00: 00 Dose 2021-06 No Unknown 2-13 00:00: 00 TAKE 1 2021-06 No TABLET BY 2-13 MOUTH DAILY 00:00: JULIET JAGDISH 00 TABLETA JAGDISH VECE AL PITO PARA LA SHANNAN OSEA TOME JAGDISH 2021-06 No TABLETA POR 2-13 V A ORAL 00:00: TODOS LOS D 00 CLINDAMYCIN 2021-06 No HYDROCHLORI 2-13 DE 300 MG 00:00: CAPS 00 LOVASTATIN 2021-06 No 20 MG TABS 2-13 00:00: 00 AMLODIPINE 2021-06 No BESYLATE 10 2-13 MG TABS 00:00: 00 CIPROFLOXAC 2021-06 No IN 2-13 HYDROCHLORI 00:00: DE 250 MG 00 TABS ATORVASTATI 2021-06 No N CALCIUM 2-13 40 MG TABS 00:00: 00 TOME JAGDISH 2021-06 No TABLETA 2-13 TODOS LOS D 00:00: 00 TOME 2 C 2021-06 No PSULAS POR 2-13 V A ORAL 00:00: TWICE A DAY 00 WITH MEALS GABAPENTIN 2021-06 No 100 MG CAPS 2-13 00:00: 00 TAKE 1 2021-06 No TABLET BY 2-12 MOUTH DAILY 00:00: JULIET JAGDISH 00 TABLETA JAGDISH VECES AL PITO PARA LA PRESION ARTERIAL TAKE 1 2021-06 No TABLET BY 2-12 MOUTH DAILY 00:00: JULIET JAGDISH 00 TABLETA JAGDISH VECES AL PITO PARA LA PRESION ARTERIAL TAKE 1 2021-06 No TABLET BY 2-12 MOUTH DAILY 00:00: JULIET JAGDISH 00 TABLETA JAGDISH VECES AL PITO PARA LA PRESION ARTERIAL JANUMET XR 2021-06 No 50-1000 MG 2- TB24 00:00: 00 JANUMET XR 2021-06 No 50-1000 MG 2- TB24 00:00: 00 JANUMET XR 2021-06 No 50-1000 MG 2- TB24 00:00: 00 JANUMET XR 2021-06 No 50-1000 MG 2- TB24 00:00: 00 Dose 2021-1 No Unknown 1-03 00:00: 00 TOME JAGDISH 2021-06 No TABLETA DOS 1-03 VECES AL D 00:00: A 00 TOME JAGDISH 2021-06 No TABLETA DOS 1-03 VECES AL D 00:00: A 00 TOME JAGDISH 2021-06 No TABLETA DOS 1-03 VECES AL D 00:00: A 00 MUPIROCIN 2 2021-0 No % OINT 02-08 00:00: 00 MUPIROCIN 2 2021-0 No % OINT 02-08 00:00: 00 MUPIROCIN 2 2021-0 No % OINT 02-08 00:00: 00 MUPIROCIN 2 2021-0 No % OINT 02-08 00:00: 00 MUPIROCIN 2 2021-0 No % OINT 9-07 00:00: 00 MUPIROCIN 2 2022-0 No % OINT 9-07 00:00: 00 &lt 2022-0 No 8 8-10 [...] 2022-0 No 8-03 00:00: 00 TOME JAGDISH 2-0 No TABLETA DOS 7-26 VECES AL D 00:00: A 00 Dose 2-0 No Unknown 7 00:00: 00 TOME JAGDISH 2-0 No 40 TABLETA POR 7-26 V A ORAL 00:00: TODOS LOS D 00 TOME JAGDISH 2021-0 No TABLETA DOS 7-26 VECES AL D 00:00: A 00 Dose 2-0 No Unknown 7 00:00: 00 TOME JAGDISH 2021-0 No 40 TABLETA POR 7-26 V A ORAL 00:00: TODOS LOS D 00 TOME JAGDISH 2021-0 No TABLETA DOS 7-26 VECES AL D 00:00: A 00 Dose 2-0 No Unknown 7 00:00: 00 TOME JAGDISH 2-0 No 40 TABLETA POR 7-26 V A ORAL 00:00: TODOS LOS D 00 TOME JAGDISH 2021-0 No TABLETA DOS 7-26 VECES AL D 00:00: A 00 Dose 2-0 No Unknown 7 00:00: 00 TOME JAGDISH 2-0 No 40 TABLETA POR 7-26 V A ORAL 00:00: TODOS LOS D 00 TOME JAGDISH 2-0 No TABLETA DOS 7-26 VECES AL D 00:00: A 00 Dose 2-0 No Unknown 7 00:00: 00 TOME JAGDISH 2-0 No 40 TABLETA POR 7-26 V A ORAL 00:00: TODOS LOS D 00 TOME JAGDISH 2021-0 No TABLETA DOS 7-26 VECES AL D 00:00: A 00 Dose 2022-0 No Unknown 7 00:00: 00 TOME JAGDISH 2022-0 No 40 TABLETA POR 7-26 V A ORAL 00:00: TODOS LOS D 00 TOME JAGDISH 2-0 No TABLETA DOS 7-26 VECES AL D 00:00: A 00 Dose 2022-0 No Unknown 7 00:00: 00 TOME JAGDISH 2022-0 No 40 TABLETA POR 7-26 V A ORAL 00:00: TODOS LOS D 00 Dose 2022-0 No Unknown 7 00:00: 00 Dose 2022-0 No Unknown 12-26 00:00: 00 Dose 2022-0 No Unknown 12-26 00:00: 00 Dose 2022-0 No Unknown 12-26 00:00: 00 Dose 2022-0 No Unknown 12-26 00:00: 00 Dose 2022-0 No Unknown 12-26 00:00: 00 Dose 2022-0 No Unknown 12-26 00:00: 00 TOME JAGDISH 2-0 No TABLETA DOS 7-12 VECES AL D [...] APLIQUE A 2021-0 No DIARIO A LA 706 PIEL EL LC 00:00: AFECTADA 00 TODOS [...] TAKE 1 2021-0 No 10 TABLET BY 05 MOUTH DAILY 00:00: JULIET JAGDISH 00 TABLETA JAGDISH VECE AL PITO PARA LA SHANNAN OSEA TAKE 1 2021-0 No 20 TABLET BY 12-06 MOUTH AT 00:00: BEDTIME 00 JULIET JAGDISH TABLETA EN LA NOCHE PARA EL COLESTEROL Dose 2021-0 No Unknown 12-06 00:00: 00 Dose 2021-0 No Unknown 12-06 00:00: 00 Dose 2021-0 No Unknown 12-06 00:00: 00 TAKE 1 2021-0 No 100 TABLET BY 12-06 MOUTH DAILY 00:00: JULIET JAGDISH 00 TABLETA JAGDISH VECES AL PITO PARA LA PRESION ARTERIAL TOME JAGDISH 2021-0 No 10 TABLETA POR 12-06 V A ORAL 00:00: TODOS LOS D 00 TOME JAGDISH 2021-0 No 500 TABLETA 12-06 TODOS LOS D 00:00: 00 Dose 2021-0 No Unknown 7- [...] D 00:00: 00 Dose 2021-0 No Unknown 7- [...] 00 TOME JAGDISH 2021-0 No 500 TABLETA 7-05 TODOS LOS D 00:00: 00 Dose 2021-0 No Unknown 7- [...] TAKE 1 2021-0 No 20 TABLET BY 05 MOUTH AT 00:00: BEDTIME 00 JULIET JAGDISH [...] EN LA NOCHE PARA EL COLESTEROL Dose 2-0 No Unknown 7-05 00:00: 00 Dose 2022-0 No Unknown 7-05 00:00: 00 Dose 2022-0 No Unknown 7-05 00:00: 00 TAKE 1 2-0 No 100 TABLET BY 7-05 MOUTH DAILY 00:00: JULIET JAGDISH 00 TABLETA JAGDISH VECES AL PITO PARA LA PRESION ARTERIAL TOME JAGDISH 2-0 No 10 TABLETA POR -05 V A ORAL 00:00: TODOS LOS D 00 TOME JAGDISH 2021-0 No 500 TABLETA 12-06 TODOS LOS D 00:00: 00 Dose 2-0 No Unknown 7 00:00: 00 Dose 2-0 No Unknown - 00:00: 00 Levemir 2022-0 No (3 mL) [...] 1mg 20 mg 6-20 tablet 00:00: 00 Dose 2022-0 No Unknown 6-20 00:00: 00 lisinopril 2022-0 No 1mg 40 mg 6-20 tablet 00:00: 00 amlodipine 2022-0 No 1mg 10 mg 6-20 tablet 00:00: 00 Dose 2022-0 No Unknown 6-20 00:00: 00 Dose 2022-0 No Unknown 6-20 00:00: 00 Dose 2022-0 No Unknown 6-20 00:00: 00 Dose 2022-0 No Unknown 6-20 00:00: 00 Dose 2022-0 No Unknown 6-20 00:00: 00 Dose 2022-0 No Unknown 6-20 00:00: 00 lisinopril 2-0 No 1mg 40 mg 6-20 tablet 00:00: 00 amlodipine 2-0 No 1mg 10 mg 6-20 tablet 00:00: 00 Dose 2021-0 No Unknown 6-20 00:00: 00 Dose 2021-0 No Unknown 6-20 00:00: 00 Dose 2021-0 No Unknown 6-20 00:00: 00 Dose 2021-0 No Unknown 6-20 00:00: 00 Dose 2021-0 No Unknown 6-20 00:00: 00 Dose 2021-0 No Unknown 6-20 00:00: 00 lisinopril 2021-0 No 1mg 40 mg 6-20 tablet 00:00: 00 amlodipine 2-0 No 1mg 10 mg 6-20 tablet 00:00: 00 Dose 2021-0 No Unknown 6-20 00:00: 00 Dose 2021-0 No Unknown 6-20 00:00: 00 Dose 2021-0 No Unknown 6-20 00:00: 00 Dose 2021-0 No Unknown 6-20 00:00: 00 Dose 2021-0 No Unknown 6-20 00:00: 00 APLIQUE A No DIARIO A [...] AFECTADA 00 TODOS LOS D APLIQUE A 2022-0 No DIARIO A LA 6-17 PIEL EL [...] 2021-0 No Unknown 4-23 00:00: 00 Dose 2022-0 [...] 2022-0 No Unknown 4-23 00:00: 00 levofloxaci 2-0 [...] 2022-0 No Unknown 4-23 00:00: 00 Dose 2-0 No Unknown 4-23 00:00: 00 Dose 2-0 No Unknown 4-23 00:00: 00 Dose 2-0 No Unknown 4-23 00:00: 00 Dose 2022-0 No Unknown 4-23 00:00: 00 Dose 2-0 [...] 2022-0 No Unknown 4-23 00:00: 00 Dose 2-0 [...] mg-trimetho 00:00: prim 160 mg 00 tablet Dose 2022-0 No Unknown 4-19 00:00: 00 Dose 2022-0 No Unknown 4-19 00:00: 00 Dose 2022-0 No Unknown 4-19 00:00: 00 sulfamethox 2022-0 No 1mg azole [...] 1mg 10 mg 3-24 tablet 00:00: 00 metoprolol 2022-0 No 1mg succinate 3-24 ER 100 mg 00:00: tablet,exte 00 nded release 24 hr lisinopril 2022-0 No 1mg 40 mg 3-24 tablet 00:00: 00 Janumet XR 2022-0 No 1mg 100 3-24 mg-1,000 mg 00:00: tablet,exte 00 nded release lovastatin 2022-0 No 1mg 20 mg 3-24 tablet 00:00: 00 Dose 2022-0 No Unknown 3-24 00:00: 00 Dose 2022-0 No Unknown 3-24 00:00: 00 Levemir 2022-0 No (3 mL) FlexTouch 3-24 U-100 00:00: Insulin 100 00 unit/mL (3 mL) subcutaneou s pen alendronate 2-0 No 1mg 10 mg 3-24 tablet 00:00: 00 amlodipine 2022-0 No 1mg 10 mg 3-24 tablet 00:00: 00 metoprolol 2022-0 No 1mg succinate 3-24 ER 100 mg 00:00: tablet,exte 00 nded release 24 hr lisinopril 2022-0 No 1mg 40 mg 3-24 tablet 00:00: 00 Janumet XR 2022-0 No 1mg 100 3-24 mg-1,000 mg 00:00: tablet,exte 00 nded release lovastatin 2022-0 No 1mg 20 mg 3-24 tablet 00:00: 00 Dose 2022-0 No Unknown 3-24 00:00: 00 Dose 2022-0 No Unknown 3-24 00:00: 00 Levemir 2022-0 No (3 mL) FlexTouch 3-24 U-100 00:00: Insulin 100 00 unit/mL (3 mL) subcutaneou s pen alendronate 2022-0 No 1mg 10 mg 3-24 tablet 00:00: 00 amlodipine 2022-0 No 1mg 10 mg 3-24 tablet 00:00: 00 metoprolol 2022-0 No 1mg succinate 3-24 ER 100 mg 00:00: tablet,exte 00 nded release 24 hr lisinopril 2022-0 No 1mg 40 mg 3-24 tablet 00:00: 00 Janumet XR 2022-0 No 1mg 100 3-24 mg-1,000 mg 00:00: tablet,exte 00 nded release lovastatin 2022-0 No 1mg 20 mg 3-24 tablet 00:00: 00 Dose 2022-0 No Unknown 3-24 00:00: 00 Dose 2-0 No Unknown 3-24 00:00: 00 Levemir 2022-0 No (3 mL) FlexTouch 3-24 U-100 00:00: Insulin 100 00 unit/mL (3 mL) subcutaneou s pen alendronate 2-0 No 1mg 10 mg 3-24 tablet 00:00: 00 amlodipine 2022-0 No 1mg 10 mg 3-24 tablet 00:00: 00 aspirin 81 2-0 No 1mg mg 3-24 tablet,teressa 00:00: yed release 00 metoprolol 2-0 No 1mg succinate 3-24 [...] 2022-0 No Unknown 2-02 00:00: 00 Dose 2021-0 No Unknown 2-02 00:00: 00 Dose 2021-0 No Unknown 2-02 00:00: 00 Dose 2021-0 No Unknown 2-02 00:00: 00 Dose 2021-0 No Unknown 2-02 00:00: 00 Dose 2021-0 No Unknown 2-02 00:00: 00 Dose 2021-0 No Unknown 2-02 00:00: 00 Levemir 2020-06 [...] unit/mL (3 mL) subcutaneou s pen Levemir 2020- No (3 mL) FlexTouch 1-22 U-100 00:00: Insulin 100 00 unit/mL (3 mL) subcutaneou s pen Levemir 1 No (3 mL) FlexTouch 1-22 U-100 00:00: Insulin 100 00 unit/mL (3 mL) subcutaneou s pen mupirocin 2 2020-06 No 1% % topical 0-27 ointment 00:00: 00 mupirocin 2 1 No 1% % topical 0-27 ointment 00:00: [...] release lovastatin 2020-0 No 1mg 20 mg 9-20 tablet 00:00: 00 Levemir 2020-0 No (3 mL) FlexTouch 7-10 U-100 00:00: Insulin 100 00 unit/mL (3 mL) subcutaneou s pen Levemir 2020-0 No (3 mL) FlexTouch 7-10 U-100 00:00: Insulin 100 00 unit/mL (3 mL) subcutaneou s pen Levemir 2020-0 No (3 mL) FlexTouch 7-10 U-100 00:00: Insulin 100 00 unit/mL (3 mL) subcutaneou s pen Levemir 2020-0 No (3 mL) FlexTouch 7-10 U-100 00:00: Insulin 100 00 unit/mL (3 mL) subcutaneou s pen Levemir 2020-0 No (3 mL) FlexTouch 7-10 U-100 00:00: Insulin 100 00 unit/mL (3 mL) subcutaneou s pen Levemir 2020-0 No (3 mL) FlexTouch 7-10 U-100 00:00: Insulin 100 00 unit/mL (3 mL) subcutaneou s pen Levemir 2020-0 No (3 mL) FlexTouch 7-10 U-100 00:00: Insulin 100 00 unit/mL (3 mL) subcutaneou s pen Levemir 2020-0 No (3 mL) FlexTouch 7-10 U-100 00:00: Insulin 100 00 unit/mL (3 mL) subcutaneou s pen Levemir 2020-0 No (3 mL) FlexTouch 5-25 U-100 00:00: Insulin 100 00 unit/mL (3 mL) subcutaneou s pen metoprolol 2020-0 No 1mg succinate 5-25 ER 100 mg 00:00: tablet,exte 00 nded release 24 hr aspirin 81 1-0 No 1mg mg 5-25 tablet,teressa 00:00: yed release 00 amlodipine 2020-0 No 1mg 10 mg 5-25 tablet 00:00: [...] mg 5-25 tablet 00:00: 00 Janumet XR 2020-0 No 1mg 100 5-25 mg-1,000 mg 00:00: [...] pen Levemir 1-0 No (3 mL) FlexTouch 4-30 U-100 00:00: Insulin 100 00 unit/mL (3 mL) subcutaneou s pen ibuprofen 1-0 No 1mg 400 mg 4-30 tablet 00:00: 00 Macrobid 2020-0 No 1mg 100 mg 4-30 capsule 00:00: 00 Levemir 2021-0 No (3 mL) FlexTouch 4-30 U-100 00:00: Insulin 100 00 unit/mL (3 mL) subcutaneou s pen ibuprofen 1-0 No 1mg 400 mg 4-30 tablet 00:00: 00 Macrobid 1-0 No 1mg 100 mg 4-30 capsule 00:00: 00 Levemir 2021-0 No (3 mL) FlexTouch 4-30 U-100 00:00: Insulin 100 00 unit/mL (3 mL) subcutaneou s pen ibuprofen 2020-0 No 1mg 400 mg 4-30 tablet 00:00: 00 Macrobid 1-0 No 1mg 100 mg 4-30 capsule 00:00: 00 Levemir 1-0 No (3 mL) FlexTouch 4-30 U-100 00:00: Insulin 100 00 unit/mL (3 mL) subcutaneou s pen ibuprofen 2020-0 No 1mg 400 mg 4-30 tablet 00:00: 00 Macrobid 2020-0 No 1mg 100 mg 4-30 capsule 00:00: 00 Levemir 1-0 No (3 mL) FlexTouch 4-30 U-100 00:00: Insulin 100 00 unit/mL (3 mL) subcutaneou s pen Dose 2020-0 No Unknown 4-30 00:00: 00 Macrobid 1-0 No 1mg 100 mg 4-30 capsule 00:00: 00 Levemir 1-0 No (3 mL) FlexTouch 4-30 U-100 00:00: Insulin 100 00 unit/mL (3 mL) subcutaneou s pen Dose 2020-0 No Unknown 4-30 00:00: 00 Macrobid 1-0 No 1mg 100 mg 4-30 capsule 00:00: 00 Levemir 2021-0 No (3 mL) FlexTouch 4-30 U-100 00:00: Insulin 100 00 unit/mL (3 mL) subcutaneou s pen Dose 1-0 No Unknown 4-30 00:00: 00 Macrobid 2021-0 No 1mg 100 [...] mg 00:00: tablet,exte 00 nded release Levemir 2021-0 No (3 mL) FlexTouch 3-10 [...] 10 mg 3-10 tablet 00:00: 00 metoprolol 1-0 No 1mg succinate 3-10 ER 100 mg 00:00: tablet,exte 00 nded release 24 hr aspirin 81 1-0 No 1mg mg 3-10 tablet,teressa 00:00: yed release 00 amlodipine 1-0 No 1mg 10 mg 3-10 tablet 00:00: 00 lisinopril 1-0 No 1mg 40 mg 3-10 tablet 00:00: 00 Janumet XR 1-0 No 1mg 100 3-10 mg-1,000 mg 00:00: tablet,exte 00 nded release lovastatin 2020-0 No 1mg 20 mg 3-10 tablet 00:00: 00 Levemir 1-0 No (3 mL) FlexTouch 2-22 U-100 00:00: Insulin 100 00 unit/mL (3 mL) subcutaneou s pen Levemir 2020-0 No (3 mL) FlexTouch 2-22 U-100 00:00: Insulin 100 00 unit/mL (3 mL) subcutaneou s pen Levemir 2020-0 No (3 mL) FlexTouch 2-22 U-100 00:00: [...] tablet,exte 00 nded release 24 hr alendronate 2021-0 No 1mg 10 mg 2-12 tablet 00:00: 00 Janumet XR 2021-0 No 1mg 100 2-12 mg-1,000 mg 00:00: tablet,exte 00 nded release lovastatin 2021-0 No 1mg 20 mg 2-12 tablet 00:00: 00 Levemir 2021-0 No (3 mL) FlexTouch 2-12 U-100 00:00: Insulin 100 00 unit/mL (3 mL) subcutaneou s pen metoprolol 2021-0 No 1mg succinate 2-12 ER 100 mg [...] pen Levemir 1-0 No (3 mL) FlexTouch 1-25 U-100 00:00: [...] pen Levemir 1-0 No (3 mL) FlexTouch 1-25 U-100 00:00: [...] mg 00:00: tablet,exte 00 nded release alendronate 2019-06 No 1mg 10 mg 1-10 tablet 00:00: 00 metoprolol 2019- No 1mg succinate 1-10 ER 100 mg 00:00: tablet,exte 00 nded release 24 hr Janumet XR 2019-06 No 1mg 100 1-10 mg-1,000 mg 00:00: tablet,exte 00 nded release alendronate 2019- No 1mg 10 mg 1-10 tablet 00:00: 00 metoprolol 2019- No 1mg succinate 1-10 ER 100 mg 00:00: tablet,exte 00 nded release 24 hr Janumet XR 2019-06 No 1mg 100 1-10 mg-1,000 mg 00:00: tablet,exte 00 nded release alendronate 2019-06 No 1mg 10 mg 1-10 tablet 00:00: 00 metoprolol 2019-06 No 1mg succinate 1-10 ER 100 mg 00:00: tablet,exte 00 nded release 24 hr Janumet XR 2019-06 No 1mg 100 1-10 mg-1,000 mg 00:00: tablet,exte 00 nded release alendronate 2019-06 No 1mg 10 mg 1-10 tablet 00:00: 00 metoprolol 2019- No 1mg succinate 1-10 ER 100 mg 00:00: tablet,exte 00 nded release 24 hr Janumet XR 2019-06 No 1mg 100 1-10 mg-1,000 mg 00:00: [...] 20 mg 1-07 tablet 00:00: 00 Alcohol 2019-1 No 1 Pads 1-07 00:00: 00 Levemir [...] 20 mg 1-07 tablet 00:00: 00 Alcohol 2019-1 No 1 Pads 1-07 00:00: 00 Levemir [...] Januvia 50 2019-0 No 1mg mg tablet 12-25 00:00: 00 Jurgen 50 2019-0 No 1mg mg tablet 12-25 00:00: 00 Jurgen 50 2019-0 No 1mg mg tablet 12-25 00:00: 00 Jurgen 50 2019-0 No 1mg mg tablet 12-25 00:00: 00 Jurgen 50 2019-0 No 1mg mg tablet 12-25 00:00: 00 Jurgen 50 2019-0 No 1mg mg tablet 12-25 00:00: 00 Jurgen 50 2019-0 No 1mg mg tablet 12-25 00:00: 00 metoprolol 2019-0 No 1mg tartrate [...] 10 mg 0-30 tablet 00:00: 00 pantoprazol 2017-1 No 1mg e 20 mg 0-30 tablet,teressa [...] 10 mg 0-30 tablet 00:00: 00 pantoprazol 2017-1 No 1mg e 20 mg 0-30 tablet,teressa [...] aspirin 81 2018-0 No 1mg mg 8-21 tablet,treessa 00:00: yed release 00 aspirin 81 2018-0 [...] to ity o f gel 00:00: affected [place] 00 area twice Medical daily Branch Diclofenac 2018-0 Yes Apply Univer s Sodium 1 % 7-31 1gram to ity o f gel 00:00: affected [place] 00 area twice Medical daily Branch Diclofenac 2018-0 Yes Apply Univer s Sodium 1 % 7-31 1gram to ity o f gel 00:00: affected [place] 00 area twice Medical daily Branch Diclofenac 2018-0 Yes Apply Univer s Sodium 1 % 7-31 1gram to ity o f gel 00:00: affected [place] 00 area twice Medical daily Branch aspirin [...] to ity o f gel 00:00: affected [place] 00 area twice Medical daily Branch Diclofenac 2018-0 Yes Apply Univer s Sodium 1 % 4-04 1gram to ity o f gel 00:00: affected [place] 00 area twice Medical daily Branch Diclofenac 2018-0 Yes Apply Univer s Sodium 1 % 4-04 1gram to ity o f gel 00:00: affected [place] 00 area twice Medical daily Branch Diclofenac 2018-0 Yes Apply Univer s Sodium 1 % 4-04 1gram to ity o f gel 00:00: affected [place] 00 area twice Medical daily Branch ciprofloxac 2018-0 Yes 500mg Take 500 U nivers in HCl 500 3-19 mg by ity of mg tablet 00:00: mouth. [place] [facility] ciprofloxac 2018-0 Yes 500mg Take 500 U nivers in HCl 500 3-19 mg by ity of mg tablet 00:00: mouth. [place] [facility] ciprofloxac 2018-0 Yes 500mg Take 500 U nivers in HCl 500 3-19 mg by ity of mg tablet 00:00: mouth. [place] 00 [facility] ciprofloxac 2018-0 Yes 500mg Take 500 U nivers in HCl 500 3-19 mg by ity of mg tablet 00:00: mouth. [place] 00 [facility] ciprofloxac 2018-0 No 1mg in [...] 3-04 by mouth. ity of tablet 00:00: [place] [facility] nitrofurant 2017-0 Yes 100mg Take 100 U nivers oin 100 mg 3-04 mg by ity of capsule 00:00: mouth [place] 00 daily. [facility] atorvastati 2017-0 Yes 40mg Take 40 mg [facility] n 20 mg 3-04 by mouth. ity of tablet 00:00: [place] 00 [facility] nitrofurant 2017-0 Yes 100mg Take 100 U nivers oin 100 mg 3-04 mg by ity of capsule 00:00: mouth [place] 00 daily. [facility] atorvastati 2017-0 Yes 40mg Take 40 mg [facility] n 20 mg 3-04 by mouth. ity of tablet 00:00: [place] [facility] nitrofurant 2017-0 Yes 100mg Take 100 U nivers oin 100 mg 3-04 mg by ity of capsule 00:00: mouth [place] 00 daily. [facility] atorvastati 2017-0 Yes 40mg Take 40 mg [facility] n 20 mg 3-04 by mouth. ity of tablet 00:00: 00 [facility] nitrofurant 2017-0 Yes 100mg Take 100 U nivers oin 100 mg 3-04 mg by ity of capsule 00:00: mouth [place] 00 daily. [facility] SARAH PEN 2017-0 Yes misc Univers NEEDLE 32 2-27 ity of gauge x 00:00: [place] " Ndle 00 [facility] amLODIPine 2017-0 Yes 10mg Take 10 mg U nivers 10 mg 2-27 by mouth ity of tablet 00:00: daily. 00 [facility] aspirin 81 2017-0 Yes 81mg [...] 2-27 ity of gauge x 00:00: [place] 32" Ndle [facility] amLODIPine Yes 10mg Take [...] 32 2-27 ity of gauge x 00:00: [place] " Ndle 00 [facility] amLODIPine Yes [...] 2-27 tablet,teressa 00:00: yed release 00 metoprolol 2017- No 1mg tartrate 2-27 100 mg 00:00: tablet 00 naproxen 2017-0 No 1mg 500 mg 2-27 tablet 00:00: 00 glipizide 2017-0 No 1mg 10 mg 2-27 tablet 00:00: 00 amlodipine No 1mg 10 mg 2-27 tablet 00:00: 00 pantoprazol No 1mg e 40 mg 2-27 tablet,teressa 00:00: yed release 00 VITAMIN D2 Yes TAKE 1 Unive rs 50,000 unit 2-14 CAPSULE ity o f capsule 00:00: ONCE A [place] [facility] FOR [facility] 13 WEEKS Branch VITAMIN D2 Yes TAKE 1 Unive rs 50,000 unit 2-14 CAPSULE ity o f capsule 00:00: ONCE A [place] [facility] FOR [facility] 13 WEEKS Branch VITAMIN D2 Yes TAKE 1 Unive rs 50,000 unit 2-14 CAPSULE ity o f capsule 00:00: ONCE A [place] WEEK FOR Medical 13 WEEKS Branch VITAMIN D2 Yes TAKE 1 Unive rs 50,000 unit 2-14 CAPSULE ity o f capsule 00:00: ONCE A [place] WEEK FOR Medical 13 WEEKS Branch Vitamin D2 0 No 1unit 50,000 unit 2-14 capsule 00:00: 00 Vitamin D2 0 No 1unit 50,000 unit 2-14 capsule 00:00: 00 Vitamin D2 2017-0 No 1unit 50,000 unit 2-14 capsule 00:00: 00 Vitamin D2 2017-0 No 1unit 50,000 unit 2-14 capsule 00:00: 00 Vitamin D2 0 No 1unit 50,000 unit 2-14 capsule 00:00: 00 Vitamin D2 0 No 1unit 50,000 unit 2-14 capsule 00:00: 00 Vitamin D2 2017-0 No 1unit 50,000 unit 2-14 capsule 00:00: 00 Vitamin D2 0 No 1unit 50,000 unit 2-14 capsule 00:00: 00 alendronate 0 Yes 10mg Take 10 mg Univers 10 mg 2-13 by mouth ity of tablet 00:00: daily. [place] [address] [facility] alendronate Yes 10mg Take 10 mg Univers 10 mg 2-13 by mouth ity of tablet 00:00: daily. [address] alendronate 2018-0 Yes 10mg Take 10 mg Univers 10 mg 2-13 by mouth ity of tablet 00:00: daily. [address] alendronate 2018-0 Yes 10mg Take 10 mg Univers 10 mg 2-13 by mouth ity of tablet 00:00: daily. [address] alendronate 2018-0 No 1mg 10 mg [...] mg 1-28 capsule 00:00: 00 aspirin 81 2016-06 No 1mg mg 1-28 tablet,teressa 00:00: yed release 00 glipizide 2016- No 1mg 10 mg 1-28 tablet 00:00: 00 pantoprazol 2016- No 1mg e 40 mg 1-28 tablet,teressa 00:00: yed release 00 amlodipine 2016- No 1mg 10 mg 1-28 tablet 00:00: 00 gabapentin 2016- No 1mg 100 mg 1-28 capsule 00:00: 00 aspirin 81 2016-06 No 1mg mg 1-28 tablet,teressa 00:00: yed release 00 glipizide 2016- No 1mg 10 mg 1-28 tablet 00:00: 00 pantoprazol 2016- No 1mg e 40 mg 1-28 tablet,teressa 00:00: yed release 00 aspirin 81 2016- No 1mg mg 1-28 tablet,teressa 00:00: yed release 00 glipizide 2016- No 1mg 10 mg 1-28 tablet 00:00: 00 pantoprazol 2016- No 1mg e 40 mg 1-28 tablet,teressa 00:00: yed release 00 amlodipine 2016- No 1mg 10 mg 1-28 tablet 00:00: 00 gabapentin 2016- No 1mg 100 mg 1-28 capsule 00:00: 00 amlodipine 2016- No 1mg 10 [...] 100 mg 0-30 capsule 00:00: 00 pantoprazol 2017-1 No 1mg e 40 mg 0-30 tablet,teressa 00:00: yed release 00 gabapentin 2017-1 No 1mg 100 mg 0-30 capsule 00:00: 00 pantoprazol 2017- No 1mg e 40 mg 0-30 tablet,teressa 00:00: yed release 00 gabapentin 2016-1 No 1mg 100 mg 0-30 capsule 00:00: 00 pantoprazol 2017-1 No 1mg e 40 mg 0-30 tablet,teressa 00:00: yed release 00 gabapentin 2017-1 No 1mg 100 mg 0-30 capsule 00:00: 00 pantoprazol 2017-1 No 1mg e 40 mg 0-30 tablet,teressa [...] 1mg 10 mg 0-24 tablet 00:00: 00 aspirin 81 2016- No 1mg mg 0-24 tablet,teressa 00:00: yed release 00 naproxen 2017- No 1mg 500 mg 0-24 tablet 00:00: 00 glipizide 2017- No 1mg 10 mg 0-24 tablet 00:00: 00 amlodipine 2017-1 No 1mg 10 mg 0-24 tablet 00:00: 00 gabapentin 2017-1 No 1mg 100 mg 0-24 capsule 00:00: 00 gabapentin 2017-1 No 1mg 100 [...] mg 8-22 tablet,teressa 00:00: yed release 00 aspirin 81 [...] 1unit 50,000 unit 8-22 capsule 00:00: 00 gabapentin 2017-0 No 1mg 100 [...] 20 mg 2-14 tablet 00:00: 00 lovastatin 2015-1 No 2mg 20 mg 2-14 tablet 00:00: 00 lovastatin 2016-1 No 2mg 20 mg 2-14 tablet 00:00: 00 lovastatin 2015-1 No 2mg 20 mg 2-14 tablet 00:00: 00 lovastatin 2015-1 No 2mg 20 mg 2-14 tablet 00:00: 00 lovastatin 2015-1 No 2mg 20 mg 2-14 tablet 00:00: 00 lovastatin 2015-1 No 2mg 20 mg 2-14 tablet 00:00: 00 lovastatin 2015-1 No 2mg 20 mg 2-14 tablet 00:00: 00 amlodipine 2015- No 1mg 5 mg tablet 2-12 00:00: 00 amlodipine 2015- No 1mg 5 mg tablet 2-12 00:00: 00 amlodipine 2015- No 1mg 5 mg tablet 2-12 00:00: 00 amlodipine 2015- No 1mg 5 mg tablet 2-12 00:00: 00 amlodipine 2015- No 1mg 5 mg tablet 2-12 00:00: 00 amlodipine 2015- No 1mg 5 mg tablet 2-12 00:00: 00 amlodipine 2015- No 1mg 5 mg tablet 2-12 00:00: 00 amlodipine 2015- No 1mg 5 mg tablet 2-12 00:00: 00 amlodipine 2015- No 1mg 5 mg tablet 2-12 00:00: 00 amlodipine 2015- No 1mg 5 mg tablet 2-12 00:00: 00 amlodipine 2015- No 1mg 5 mg tablet 2-12 00:00: 00 amlodipine 2015- No 1mg 5 mg tablet 2-12 00:00: 00 amlodipine 2015- No 1mg 5 mg tablet 2-12 00:00: 00 amlodipine 2015- No 1mg 5 mg tablet 2-12 00:00: 00 amlodipine 2015- No 1mg 5 mg tablet 2- 00:00: 00 amlodipine 2015- No 1mg 5 mg tablet 2- 00:00: 00 Immunizations Ordered Immunization Filled Immunization Date Status Commen ts Source Name Name Myron DICKINSONID-19 2021-08-24 Completed Vaccine 00:00:00 Moderna COVID-19 2021-08-24 [...] Time Observation Value Comments Source BP Systolic 2022-06-08 10:28:00 133 mm[Hg] BP Diastolic 2022-06-08 10:28:00 76 mm[Hg] Weight Measured 2022-06-08 10:28:00 163.60 pounds Height Measured 2022-06-08 10:28:00 61.50 inches Body Temperature 2022-06-08 10:28:00 98.30 degrees Heart Rate 2022-06-08 10:28:00 78.00 /min Respiratory Rate 2022-06-08 10:28:00 18.00 /min BP Systolic 2022-06-01 10:48:00 134 mm[Hg] BP Diastolic 2022-06-01 10:48:00 79 mm[Hg] Weight Measured 2022-06-01 10:48:00 161.00 pounds Height Measured 2022-06-01 10:48:00 61.50 inches Body Temperature 2022-06-01 10:48:00 98.10 degrees Heart Rate 2022-06-01 10:48:00 94.00 /min Respiratory Rate 2022-06-01 10:48:00 18.00 /min BP Systolic 2022-05-25 13:43:00 116 mm[Hg] BP Diastolic 2022-05-25 13:43:00 75 mm[Hg] Weight Measured 2022-05-25 13:43:00 160.80 pounds Height Measured 2022-05-25 13:43:00 61.50 inches Body Temperature 2022-05-25 13:43:00 98.10 degrees Heart Rate 2022-05-25 13:43:00 88.00 /min Respiratory Rate 2022-05-25 13:43:00 18.00 /min BP Systolic 2022-05-09 09:43:00 158 mm[Hg] BP [...] / Time Performed Performing Clinician Galen preston [id number] 2022-04-27 00:00:00 [facility] [id number] 2022-04-27 00:00:00 [facility] [id number] 2022-04-27 00:00:00 [facility] XR ANKLE 3+ VW LEFT 2020-10-14 18:55:23 Leslie Martinez [facility] XR HIPS 3 VW LEFT 2020-10-14 18:55:12 Leslie Martinez [facility] XR KNEE 3 VW LEFT 2020-10-14 18:54:59 Leslie Martinez [facility] ASSIGNMENT OF BENEFITS 2020-10-14 18:28:36 Doctor Unassigned, No [facility] Ekg 2019-07-08 00:00:00 Plan of Care Planned Activity Planned Date Details Comments Source Goal Plan of Care Note [code = 87055-8] Goal Plan of Care Note [code = 86292-1] Goal Plan of Care Note [code = 53273-5] Goal Plan of Care Note [code = 45012-2] Goal Plan of Care Note [code = 81779-2] Goal Plan of Care Note [code = 02867-9] Goal Plan of Care Note [code = 41945-6] Goal Plan of Care Note [code = 85852-6] Goal Plan of Care Note [code = 13356-2] Goal Plan of Care Note [code = 02652-9] Goal Plan of Care Note [code = 40346-6] Goal Plan of Care Note [code = 12664-0] Goal Plan of Care Note [code = 52575-9] Goal Plan of Care Note [code = 76529-9] Goal Plan of Care Note [code = 96677-6] Goal Plan of Care Note [code = 37375-5] Goal Plan of Care Note [code = 92690-0] Goal Plan of Care Note [code = 37756-6] Goal Plan of Care Note [code = 44530-6] Goal Plan of Care Note [code = 23547-8] Goal Plan of Care Note [code = 82677-1] Goal Plan of Care Note [code = 16983-6] Goal Plan of Care Note [code = 95493-4] Goal Plan of Care Note [code = 32053-2] Goal Plan of Care Note [code = 36584-9] Goal Plan of Care Note [code = 58617-8] Goal Plan of Care Note [code = 22451-7] Goal Plan of Care Note [code = 66622-9] Goal Plan of Care Note [code = 21395-1] Goal Plan of Care Note [code = 58037-1] Goal Plan of Care Note [code = 20352-3] Goal Plan of Care Note [code = 41465-6] Goal Plan of Care Note [code = 23566-3] Goal Plan of Care Note [code = 47681-7] Goal Plan of Care Note [code = 77258-6] Goal Plan of Care Note [code = 71716-5] Goal Plan of Care Note [code = 17627-7] Goal Plan of Care Note [code = 36893-0] Goal Plan of Care Note [code = 25917-2] Goal Plan of Care Note [code = 19433-2] Goal Plan of Care Note [code = 07733-3] Goal Plan of Care Note [code = 06855-6] Goal Plan of Care Note [code = 31063-6] Goal Plan of Care Note [code = 66545-8] Goal Plan of Care Note [code = 32833-4] Goal Plan of Care Note [code = 30872-0] Goal Plan of Care Note [code = 48578-2] Goal Plan of Care Note [code = 03097-2] Goal Plan of Care Note [code = 22036-8] Goal Plan of Care Note [code = 26525-1] Goal Plan of Care Note [code = 54270-0] Goal Plan of Care Note [code = 79449-9] Goal Plan of Care Note [code = 85136-9] Goal Plan of Care Note [code = 71642-6] Goal Plan of Care Note [code = 13593-4] Goal Plan of Care Note [code = 30287-4] Goal Plan of Care Note [code = 34739-2] Goal Plan of Care Note [code = 72471-5] Goal Plan of Care Note [code = 80341-9] Goal Plan of Care Note [code = 71936-5] Goal Plan of Care Note [code = 71506-1] Goal Plan of Care Note [code = 73481-0] Goal Plan of Care Note [code = 60689-3] Goal Plan of Care Note [code = 68292-5] Goal Plan of Care Note [code = 18517-7] Goal Plan of Care Note [code = 08207-6] Goal Plan of Care Note [code = 80086-8] Goal Plan of Care Note [code = 29267-5] Goal Plan of Care Note [code = 19564-5] Goal Plan of Care Note [code = 66239-1] Goal Plan of Care Note [code = 70852-8] Goal Plan of Care Note [code = 26596-2] Goal Plan of Care Note [code = 80294-8] Goal Plan of Care Note [code = 88447-5] Goal Plan of Care Note [code = 55276-7] Goal Plan of Care Note [code = 54706-9] Goal Plan of Care Note [code = 39770-6] Goal Plan of Care Note [code = 16696-4] Goal Plan of Care Note [code = 17340-1] Goal Plan of Care Note [code = 72055-8] Goal Plan of Care Note [code = 16036-9] Goal Plan of Care Note [code = 15464-3] Goal Plan of Care Note [code = 25869-2] Goal Plan of Care Note [code = 57291-8] Goal Plan of Care Note [code = 27259-7] Goal Plan of Care Note [code = 50356-9] Goal Plan of Care Note [code = 58577-1] Goal Plan of Care Note [code = 16556-0] Goal Plan of Care Note [code = 45672-1] Goal Plan of Care Note [code = 10980-3] Goal Plan of Care Note [code = 61714-1] Goal Plan of Care Note [code = 12302-1] Goal Plan of Care Note [code = 52011-4] Goal Plan of Care Note [code = 93539-3] Goal Plan of Care Note [code = 77819-0] Goal Plan of Care Note [code = 01368-9] Goal Plan of Care Note [code = 73915-2] Goal Plan of Care Note [code = 66663-0] Goal Plan of Care Note [code = 96586-1] Goal Plan of Care Note [code = 38313-6] Goal Plan of Care Note [code = 93083-3] Goal Plan of Care Note [code = 62713-9] Goal Plan of Care Note [code = 64545-9] Goal Plan of Care Note [code = 18218-7] Goal Plan of Care Note [code = 70733-9] Goal Plan of Care Note [code = 88697-0] Goal Plan of Care Note [code = 15163-3] Goal Plan of Care Note [code = 14769-7] Goal Plan of Care Note [code = 82110-3] Goal Plan of Care Note [code = 33763-6] Goal Plan of Care Note [code = 71213-2] Goal Plan of Care Note [code = 30105-9] Goal Plan of Care Note [code = 43280-0] Goal Plan of Care Note [code = 80224-0] Goal Plan of Care Note [code = 84733-3] Goal Plan of Care Note [code = 03143-1] Goal Plan of Care Note [code = 24730-1] Goal Plan of Care Note [code = 99016-7] Goal Plan of Care Note [code = 42609-7] Goal Plan of Care Note [code = 61290-8] Goal Plan of Care Note [code = 51264-4] Goal Plan of Care Note [code = 21101-4] Goal Plan of Care Note [code = 14621-6] Goal Plan of Care Note [code = 35916-1] Goal Plan of Care Note [code = 12806-8] Goal Plan of Care Note [code = 70640-6] Goal Plan of Care Note [code = 96107-4] Goal Plan of Care Note [code = 66374-3] Goal Plan of Care Note [code = 19778-7] Goal Plan of Care Note [code = 25082-3] Goal Plan of Care Note [code = 55866-3] Goal Plan of Care Note [code = 60411-1] Goal Plan of Care Note [code = 20750-0] Goal Plan of Care Note [code = 57172-8] Goal Plan of Care Note [code = 75972-0] Goal Plan of Care Note [code = 18310-0] Goal Plan of Care Note [code = 41354-7] Goal Plan of Care Note [code = 77169-9] Goal Plan of Care Note [code = 13115-4] Goal Plan of Care Note [code = 97112-3] Goal Plan of Care Note [code = 04297-0] Goal Plan of Care Note [code = 80510-0] Goal Plan of Care Note [code = 35218-6] Goal Plan of Care Note [code = 58642-6] Goal Plan of Care Note [code = 67102-8] Goal Plan of Care Note [code = 25969-2] Goal Plan of Care Note [code = 96385-3] Goal Plan of Care Note [code = 19454-0] Goal Plan of Care Note [code = 60054-5] Goal Plan of Care Note [code = 84281-3] Goal Plan of Care Note [code = 96459-7] Goal Plan of Care Note [code = 02919-6] Goal Plan of Care Note [code = 87131-3] Goal Plan of Care Note [code = 56206-5] Goal Plan of Care Note [code = 20562-7] Goal Plan of Care Note [code = 02993-7] Goal Plan of Care Note [code = 02102-1] Goal Plan of Care Note [code = 06842-8] Goal Plan of Care Note [code = 40929-8] Goal Plan of Care Note [code = 08264-1] Goal Plan of Care Note [code = 42817-9] Goal Plan of Care Note [code = 12664-9] Goal Plan of Care Note [code = 23452-9] Goal Plan of Care Note [code = 39389-5] Goal Plan of Care Note [code = 81629-9] Goal Plan of Care Note [code = 08668-9] Goal Plan of Care Note [code = 78395-4] Goal Plan of Care Note [code = 42081-1] Goal Plan of Care Note [code = 13815-1] Goal Plan of Care Note [code = 85357-2] Goal Plan of Care Note [code = 14031-8] Goal Plan of Care Note [code = 40421-3] Goal Plan of Care Note [code = 35080-5] Goal Plan of Care Note [code = 35179-5] Goal Plan of Care Note [code = 84250-6] Goal Plan of Care Note [code = 04920-5] Goal Plan of Care Note [code = 47336-7] Goal Plan of Care Note [code = 28979-2] Goal Plan of Care Note [code = 02256-0] Goal Plan of Care Note [code = 38111-6] Goal Plan of Care Note [code = 49378-3] Goal Plan of Care Note [code = 97976-7] Goal Plan of Care Note [code = 38886-7] Goal Plan of Care Note [code = 84322-0] Goal Plan of Care Note [code = 48970-1] Goal Plan of Care Note [code = 17104-3] Goal Plan of Care Note [code = 04999-9] Goal Plan of Care Note [code = 07617-7] Goal Plan of Care Note [code = 76339-5] Goal Plan of Care Note [code = 04744-3] Goal Plan of Care Note [code = 82503-6] Goal Plan of Care Note [code = 54451-6] Goal Plan of Care Note [code = 26764-4] Goal Plan of Care Note [code = 25326-9] Goal Plan of Care Note [code = 93296-9] Goal Plan of Care Note [code = 72600-8] Goal Plan of Care Note [code = 70138-3] Goal Plan of Care Note [code = 02507-2] Goal Plan of Care Note [code = 12901-9] Goal Plan of Care Note [code = 89760-5] Goal Plan of Care Note [code = 24676-7] Goal Plan of Care Note [code = 94160-7] Goal Plan of Care Note [code = 70054-7] Goal Plan of Care Note [code = 37319-4] Goal Plan of Care Note [code = 55118-9] Goal Plan of Care Note [code = 78574-0] Goal Plan of Care Note [code = 79098-3] Goal Plan of Care Note [code = 93203-2] Goal Plan of Care Note [code = 34844-4] Goal Plan of Care Note [code = 07516-1] Goal Plan of Care Note [code = 45213-4] Goal Plan of Care Note [code = 90907-5] Goal Plan of Care Note [code = 58254-0] Goal Plan of Care Note [code = 19086-7] Goal Plan of Care Note [code = 48960-6] Goal Plan of Care Note [code = 84406-5] Goal Plan of Care Note [code = 80682-4] Goal Plan of Care Note [code = 42441-1] Goal Plan of Care Note [code = 45621-3] Goal Plan of Care Note [code = 27834-4] Goal Plan of Care Note [code = 99514-3] Goal Plan of Care Note [code = 30341-3] Goal Plan of Care Note [code = 60167-0] Goal Plan of Care Note [code = 12728-4] Goal Plan of Care Note [code = 46875-9] Goal Plan of Care Note [code = 16187-6] Goal Plan of Care Note [code = 83246-0] Goal Plan of Care Note [code = 18192-8] Goal Plan of Care Note [code = 17126-7] Goal Plan of Care Note [code = 64601-7] Goal Plan of Care Note [code = 24994-1] Goal Plan of Care Note [code = 67361-2] Goal Plan of Care Note [code = 85941-4] Goal Plan of Care Note [code = 24116-4] Goal Plan of Care Note [code = 25048-9] Goal Plan of Care Note [code = 51370-4] Goal Plan of Care Note [code = 42259-8] Goal Plan of Care Note [code = 12969-9] Goal Plan of Care Note [code = 50689-7] Goal Plan of Care Note [code = 99148-3] Goal Plan of Care Note [code = 20254-4] Goal Plan of Care Note [code = 57932-6] Goal Plan of Care Note [code = 96329-0] Goal Plan of Care Note [code = 16326-2] Goal Plan of Care Note [code = 64539-0] Goal Plan of Care Note [code = 25789-1] Goal Plan of Care Note [code = 40002-2] Goal Plan of Care Note [code = 54668-7] Goal Plan of Care Note [code = 39427-8] Goal Plan of Care Note [code = 57675-8] Goal Plan of Care Note [code = 12043-2] Goal Plan of Care Note [code = 17045-8] Goal Plan of Care Note [code = 68811-4] Goal Plan of Care Note [code = 49728-5] Goal Plan of Care Note [code = 41705-2] Goal Plan of Care Note [code = 26818-6] Goal Plan of Care Note [code = 75649-0] Goal Plan of Care Note [code = 84011-4] Goal Plan of Care Note [code = 71582-2] Goal Plan of Care Note [code = 75653-2] Goal Plan of Care Note [code = 44307-9] Goal Plan of Care Note [code = 23508-6] Goal Plan of Care Note [code = 11910-9] Goal Plan of Care Note [code = 09006-8] Goal Plan of Care Note [code = 07880-7] Goal Plan of Care Note [code = 10065-3] Goal Plan of Care Note [code = 23582-3] Goal Plan of Care Note [code = 55240-8] Goal Plan of Care Note [code = 70108-0] Goal Plan of Care Note [code = 95577-8] Goal Plan of Care Note [code = 80722-4] Goal Plan of Care Note [code = 73196-9] Goal Plan of Care Note [code = 69824-5] Goal Plan of Care Note [code = 30066-4] Goal Plan of Care Note [code = 45268-3] Goal Plan of Care Note [code = 96217-6] Goal Plan of Care Note [code = 19569-1] Goal Plan of Care Note [code = 39047-9] Goal Plan of Care Note [code = 78111-8] Goal Plan of Care Note [code = 13807-6] Goal Plan of Care Note [code = 06614-1] Goal Plan of Care Note [code = 22474-8] Goal Plan of Care Note [code = 38265-8] Goal Plan of Care Note [code = 00482-6] Goal Plan of Care Note [code = 68952-3] Goal Plan of Care Note [code = 69337-6] Goal Plan of Care Note [code = 41015-4] Goal Plan of Care Note [code = 65235-2] Goal Plan of Care Note [code = 11733-1] Goal Plan of Care Note [code = 32359-2] Goal Plan of Care Note [code = 40297-9] Goal Plan of Care Note [code = 34451-1] Goal Plan of Care Note [code = 15335-4] Goal Plan of Care Note [code = 92362-4] Goal Plan of Care Note [code = 50861-4] Goal Plan of Care Note [code = 63410-4] Goal Plan of Care Note [code = 32793-5] Goal Plan of Care Note [code = 78414-2] Goal Plan of Care Note [code = 24153-1] Goal Plan of Care Note [code = 64730-3] Goal Plan of Care Note [code = 62822-7] Goal Plan of Care Note [code = 27323-9] Goal Plan of Care Note [code = 64285-5] Goal Plan of Care Note [code = 40802-6] Goal Plan of Care Note [code = 49481-1] Goal Plan of Care Note [code = 42071-2] Goal Plan of Care Note [code = 80845-6] Goal Plan of Care Note [code = 21280-9] Goal Plan of Care Note [code = 08376-4] Goal Plan of Care Note [code = 39371-1] Goal Plan of Care Note [code = 35451-3] Goal Plan of Care Note [code = 06827-0] Goal Plan of Care Note [code = 43684-1] Goal Plan of Care Note [code = 68670-3] Goal Plan of Care Note [code = 34127-1] Goal Plan of Care Note [code = 35621-2] Goal Plan of Care Note [code = 10796-7] Goal Plan of Care Note [code = 37552-8] Goal Plan of Care Note [code = 44425-9] Encounters Start End Encounter Admission Attending Care Care Encounter Source Date/Time Date/Time Type Type Clinicians Facility Department ID 2022-06-08 2022-06-08 Outpatient [facility] [id number] Madhu 10:19:11 10:19:11 0105 F Ludin 2022-06-08 2022-06-08 Outpatient [id number] 00:00:00 00:00:00 Visit [id number] 410-4a53-9 -7ik5-1c1 da6-4e5f2c [id number] bddc28 2022-06-01 2022-06-01 Outpatient SFA SFA [id number] 022 Madhu 10:42:48 10:42:48 1229 F Ludin 2022-06-01 2022-06-01 Outpatient [id number] 00:00:00 00:00:00 Visit p505-61lb 969-40ed-9 -9022-5aa 022-5aad19 [id number] b466d8 2022-05-25 2022-05-25 Outpatient SFA SFA [id number] Madhu 13:44:52 13:44:52 1222 F Ludin 2022-05-25 2022-05-25 Outpatient [id number] 00:00:00 00:00:00 Visit [id number] 890-4564-b -bbde-d86 [id number]-[id number] [id number] 87f52c 2022-05-10 2022-05-10 Outpatient SFA SFA [id number] 022 Madhu 09:54:09 09:54:09 1207 F Ludin 2022-05-09 2022-05-09 Outpatient SFA SFA [id number] 022 Madhu 09:38:21 09:38:21 1206 F Ludin 2022-05-09 2022-05-09 Outpatient [id number] cs69r6-o 00:00:00 00:00:00 Visit f434-054o 893-464a-a -v9b7-nm8 1n5-kw4g0j [id number] [id number] 2022-04-27 2022-04-29 [id number] [facility] 23:31:00 15:15:[address] [place] [address] 2022-03-08 2022-03-08 Outpatient SFA SFA [id number] 022 Madhu 10:30:25 10:30:25 1005 F Ludin 2022-03-08 2022-03-08 Outpatient [id number]- [id number] 00:00:00 00:00:00 Visit 34p1-3my2 0b6-1zo7-6 -48z5-e5w 2i1-z0o12k 02cen7n5i bf4e6c 2022-02-08 2022-02-08 Outpatient [id number]- [id number] 39cfed-c 00:00:00 00:00:00 Visit g33u-67u7 47d-41e8-a -s294-3i6 655-4s4978 1886kt62w 7ff23b 2022-01-04 2022-01-04 Outpatient [id number]- [id number] o7u618-5 00:00:00 00:00:00 Visit 1239-3141 388-4690-8 -5ae0-7kp ed5-5ca68b 73w6750ff 6810ce 2021-12-06 2021-12-06 Outpatient [id number] 00:00:00 00:00:00 Visit fec0-4c02 ec0-4c02-a -x089-124 538-264fda iuzs6bg33 e1ba61 2020-10-14 2020-10-14 [facility] [id number] [employer] 13:34:04 23:59:00 Encounter Leslie Simon [id number] [facility] [place] 4.2.7.2.686 [facility] [id number] [facility] [address] 2020-10-14 2020-10-14 [facility] [id number] [id number] [employer] 13:33:50 13:33:50 Encounter Leslie Simon 350.1.13.10 [facility] [place] 4.2.7.2.686 [facility] [id number] [facility] [address] 2020-10-14 2020-10-14 [facility] [id number] [id number] [employer] 13:30:00 13:32:00 Encounter Leslie Simon 350.1.13.10 [facility] [place] 4.2.7.2.686 [facility] [id number] [facility] [address] 2020-10-14 2020-10-14 [facility] [id number] Univers 00:00:00 00:00:00 LESLIE lozano [facility] 2020-10-14 2020-10-14 Orders Doctor ANCELMO [id number] Univers 00:00:00 00:00:00 Only Unassigned, RACHID [id number] ity of [place] [facility] [id number] [facility] [phone] [facility] [address] Results Test Description Test Time Test Comments Results Result Comments Source CBC W/AUTO DIFF WITH PLATELETS 2022-05-26 08:51:31 Test Item Value Reference Range Interpretation Comme nts WBC (test code = 1001) 9.3 K/UL 3.5-11.0 RBC (test code = 1002) 3.93 M/UL 3.80-5.40 HEMOGLOBIN (test code = 1003) 11.6 G/DL 11.5-15.5 HEMATOCRIT (test code = 1004) 35.3 % 34.0-45.0 MCV (test code = 1005) 89.8 fL 80.0-99.0 MCH (test code = 1006) 29.5 PG 25.0-33.0 MCHC (test code = 1007) 32.9 G/DL 31.0-36.0 RDW (test code = 1038) 13.4 % 11.5-15.0 NEUTROPHILS (test code = 51.1 % 1008) LYMPHOCYTES (test code = 37.8 % 1010) MONOCYTES (test code = 1011) 7.5 % EOSINOPHILS (test code = 2.4 % 1012) BASOPHILS (test code = 1013) 0.4 % IMMATURE GRANULOCYTES (test 0.8 % code = 1036) NUCLEATED RBCS (test code = 0.0 /100 WBC'S See_Comment [Automated message] The 1065) system which ge nerated this result transmit ellie reference range : 0.0. The reference range was not used to interpr et this result as elton l/abnormal. PLATELET COUNT (test code = 266 K/UL 263-012 5930) ABSOLUTE NEUTROPHILS (test 4.77 K/UL 1.50-7.50 code = 1066) ABSOLUTE LYMPHOCYTES (test 3.53 K/UL 1.00-4.00 code = 1067) ABSOLUTE MONOCYTES (test code 0.70 K/UL 0.20-1.00 = 1068) ABSOLUTE EOSINOPHILS (test 0.22 K/UL 0.00-0.50 code = 1040) ABSOLUTE BASOPHILS (test code 0.04 K/UL 0.00-0.20 = 1069) ABS IMMATURE GRANULOCYTES 0.07 K/UL 0.00-0.10 (test code = 1020) ABS NUCLEATED RBCS (test code 0.00 K/UL 0.00-0.11 = 90790) PROTHROMBIN TIME (PT)2022-05-26 04:26:22 Test Item Value Reference Range Interpretation Comments PROTHROMBIN TIME 13.2 SECONDS 12.5-14.7 (PT) (test code = 1402) INR (test code = 1.0 SEE BELOW CURRENT 17986) RECOMMENDATIONS ARE FOR AN INR OF 2 .0-3.0 FOR ALL PATIENT S ON VITAMIN K ANTAG ONISTS, EXCEPT THOSE WI TH PROSTHETIC HEAR T VALVES, FOR WHO M INR OF 2.5-3.5 IS RECOMMENDED. UN LESS OTHERWISE INDIC ATED, ALL TESTING PER FORMED ATCLINICAL PATH OLOGY LABORATORIES, [facility]. [address] [place] [id number] [place] [address] DIRECTOR: Janessa VILLAGRANIA NUMBER [id number] CAP ACCREDITATION N O. [id number] CBC W/AUTO [id number] 00:00:00 Test Item Value Reference Range Interpretation Comments WBC (test code = 1001) 9.3 K/UL RBC (test code = 1002) 3.93 M/UL HEMOGLOBIN (test code = 1003) 11.6 G/DL HEMATOCRIT (test code = 1004) 35.3 % MCV (test code = 1005) 89.8 fL MCH (test code = 1006) 29.5 PG MCHC (test code = 1007) 32.9 G/DL RDW (test code = 1038) 13.4 % NEUTROPHILS (test code = 1008) 51.1 % LYMPHOCYTES (test code = 1010) 37.8 % MONOCYTES (test code = 1011) 7.5 % EOSINOPHILS (test code = 1012) 2.4 % BASOPHILS (test code = 1013) 0.4 % IMMATURE GRANULOCYTES (test 0.8 % code = 1036) NUCLEATED RBCS (test code = 0.0 /100WBC'S 1065) PLATELET COUNT (test code = 266 K/UL 1015) ABSOLUTE NEUTROPHILS (test code 4.77 K/UL = 1066) ABSOLUTE LYMPHOCYTES (test code 3.53 K/UL = 1067) ABSOLUTE MONOCYTES (test code = 0.70 K/UL 1068) ABSOLUTE EOSINOPHILS (test code 0.22 K/UL = 1040) ABSOLUTE BASOPHILS (test code = 0.04 K/UL 1069) ABS IMMATURE GRANULOCYTES (test 0.07 K/UL code = 1020) ABS NUCLEATED RBCS (test code = 0.00 K/UL 91242) CBC W/AUTO [id number] 00:00:00 Test Item Value Reference Range Interpretation Comments WBC (test code = 1001) 9.3 K/UL RBC (test code = 1002) 3.93 M/UL HEMOGLOBIN (test code = 1003) 11.6 G/DL HEMATOCRIT (test code = 1004) 35.3 % MCV (test code = 1005) 89.8 fL MCH (test code = 1006) 29.5 PG MCHC (test code = 1007) 32.9 G/DL RDW (test code = 1038) 13.4 % NEUTROPHILS (test code = 1008) 51.1 % LYMPHOCYTES (test code = 1010) 37.8 % MONOCYTES (test code = 1011) 7.5 % EOSINOPHILS (test code = 1012) 2.4 % BASOPHILS (test code = 1013) 0.4 % IMMATURE GRANULOCYTES (test 0.8 % code = 1036) NUCLEATED RBCS (test code = 0.0 /100WBC'S 1065) PLATELET COUNT (test code = 266 K/UL 1015) ABSOLUTE NEUTROPHILS (test code 4.77 K/UL = 1066) ABSOLUTE LYMPHOCYTES (test code 3.53 K/UL = 1067) ABSOLUTE MONOCYTES (test code = 0.70 K/UL 1068) ABSOLUTE EOSINOPHILS (test code 0.22 K/UL = 1040) ABSOLUTE BASOPHILS (test code = 0.04 K/UL 1069) ABS IMMATURE GRANULOCYTES (test 0.07 K/UL code = 1020) ABS NUCLEATED RBCS (test code = 0.00 K/UL 04338) CBC W/AUTO [id number] 00:00:00 Test Item Value Reference Range Interpretation Comments WBC (test code = 1001) 9.3 K/UL RBC (test code = 1002) 3.93 M/UL HEMOGLOBIN (test code = 1003) 11.6 G/DL HEMATOCRIT (test code = 1004) 35.3 % MCV (test code = 1005) 89.8 fL MCH (test code = 1006) 29.5 PG MCHC (test code = 1007) 32.9 G/DL RDW (test code = 1038) 13.4 % NEUTROPHILS (test code = 1008) 51.1 % LYMPHOCYTES (test code = 1010) 37.8 % MONOCYTES (test code = 1011) 7.5 % EOSINOPHILS (test code = 1012) 2.4 % BASOPHILS (test code = 1013) 0.4 % IMMATURE GRANULOCYTES (test 0.8 % code = 1036) NUCLEATED RBCS (test code = 0.0 /100WBC'S 1065) PLATELET COUNT (test code = 266 K/UL 1015) ABSOLUTE NEUTROPHILS (test code 4.77 K/UL = 1066) ABSOLUTE LYMPHOCYTES (test code 3.53 K/UL = 1067) ABSOLUTE MONOCYTES (test code = 0.70 K/UL 1068) ABSOLUTE EOSINOPHILS (test code 0.22 K/UL = 1040) ABSOLUTE BASOPHILS (test code = 0.04 K/UL 1069) ABS IMMATURE GRANULOCYTES (test 0.07 K/UL code = 1020) ABS NUCLEATED RBCS (test code = 0.00 K/UL 18187) PROTHROMBIN TIME (PT)2022-05-26 00:00:00 Test Item Value Reference Range Interpretation Comments PROTHROMBIN TIME (PT) (test code 13.2 SECONDS = 1402) INR (test code = 20106) 1.0 PROTHROMBIN TIME (PT)2022-05-26 00:00:00 Test Item Value Reference Range Interpretation Comments PROTHROMBIN TIME (PT) (test code 13.2 SECONDS = 1402) INR (test code = 90020) 1.0 CBC W/AUTO [id number] 00:00:00 Test Item Value Reference Range Interpretation Comments WBC (test code = 1001) 9.3 K/UL RBC (test code = 1002) 3.93 M/UL HEMOGLOBIN (test code = 1003) 11.6 G/DL HEMATOCRIT (test code = 1004) 35.3 % MCV (test code = 1005) 89.8 fL MCH (test code = 1006) 29.5 PG MCHC (test code = 1007) 32.9 G/DL RDW (test code = 1038) 13.4 % NEUTROPHILS (test code = 1008) 51.1 % LYMPHOCYTES (test code = 1010) 37.8 % MONOCYTES (test code = 1011) 7.5 % EOSINOPHILS (test code = 1012) 2.4 % BASOPHILS (test code = 1013) 0.4 % IMMATURE GRANULOCYTES (test 0.8 % code = 1036) NUCLEATED RBCS (test code = 0.0 /100WBC'S 1065) PLATELET COUNT (test code = 266 K/UL 1015) ABSOLUTE NEUTROPHILS (test code 4.77 K/UL = 1066) ABSOLUTE LYMPHOCYTES (test code 3.53 K/UL = 1067) ABSOLUTE MONOCYTES (test code = 0.70 K/UL 1068) ABSOLUTE EOSINOPHILS (test code 0.22 K/UL = 1040) ABSOLUTE BASOPHILS (test code = 0.04 K/UL 1069) ABS IMMATURE GRANULOCYTES (test 0.07 K/UL code = 1020) ABS NUCLEATED RBCS (test code = 0.00 K/UL 26094) CBC W/AUTO [id number] 00:00:00 Test Item Value Reference Range Interpretation Comments WBC (test code = 1001) 9.3 K/UL RBC (test code = 1002) 3.93 M/UL HEMOGLOBIN (test code = 1003) 11.6 G/DL HEMATOCRIT (test code = 1004) 35.3 % MCV (test code = 1005) 89.8 fL MCH (test code = 1006) 29.5 PG MCHC (test code = 1007) 32.9 G/DL RDW (test code = 1038) 13.4 % NEUTROPHILS (test code = 1008) 51.1 % LYMPHOCYTES (test code = 1010) 37.8 % MONOCYTES (test code = 1011) 7.5 % EOSINOPHILS (test code = 1012) 2.4 % BASOPHILS (test code = 1013) 0.4 % IMMATURE GRANULOCYTES (test 0.8 % code = 1036) NUCLEATED RBCS (test code = 0.0 /100WBC'S 1065) PLATELET COUNT (test code = 266 K/UL 1015) ABSOLUTE NEUTROPHILS (test code 4.77 K/UL = 1066) ABSOLUTE LYMPHOCYTES (test code 3.53 K/UL = 1067) ABSOLUTE MONOCYTES (test code = 0.70 K/UL 1068) ABSOLUTE EOSINOPHILS (test code 0.22 K/UL = 1040) ABSOLUTE BASOPHILS (test code = 0.04 K/UL 1069) ABS IMMATURE GRANULOCYTES (test 0.07 K/UL code = 1020) ABS NUCLEATED RBCS (test code = 0.00 K/UL 16711) CBC W/AUTO [id number] 00:00:00 Test Item Value Reference Range Interpretation Comments WBC (test code = 1001) 9.3 K/UL RBC (test code = 1002) 3.93 M/UL HEMOGLOBIN (test code = 1003) 11.6 G/DL HEMATOCRIT (test code = 1004) 35.3 % MCV (test code = 1005) 89.8 fL MCH (test code = 1006) 29.5 PG MCHC (test code = 1007) 32.9 G/DL RDW (test code = 1038) 13.4 % NEUTROPHILS (test code = 1008) 51.1 % LYMPHOCYTES (test code = 1010) 37.8 % MONOCYTES (test code = 1011) 7.5 % EOSINOPHILS (test code = 1012) 2.4 % BASOPHILS (test code = 1013) 0.4 % IMMATURE GRANULOCYTES (test 0.8 % code = 1036) NUCLEATED RBCS (test code = 0.0 /100WBC'S 1065) PLATELET COUNT (test code = 266 K/UL 1015) ABSOLUTE NEUTROPHILS (test code 4.77 K/UL = 1066) ABSOLUTE LYMPHOCYTES (test code 3.53 K/UL = 1067) ABSOLUTE MONOCYTES (test code = 0.70 K/UL 1068) ABSOLUTE EOSINOPHILS (test code 0.22 K/UL = 1040) ABSOLUTE BASOPHILS (test code = 0.04 K/UL 1069) ABS IMMATURE GRANULOCYTES (test 0.07 K/UL code = 1020) ABS NUCLEATED RBCS (test code = 0.00 K/UL 50937) PROTHROMBIN TIME (PT)2022-05-26 00:00:00 Test Item Value Reference Range Interpretation Comments PROTHROMBIN TIME (PT) (test code 13.2 SECONDS = 1402) INR (test code = 92567) 1.0 PROTHROMBIN TIME (PT)2022-05-26 00:00:00 Test Item Value Reference Range Interpretation Comments PROTHROMBIN TIME (PT) (test code 13.2 SECONDS = 1402) INR (test code = 41248) 1.0 CBC W/AUTO [id number] 00:00:00 Test Item Value Reference Range Interpretation Comments WBC (test code = 1001) 9.3 K/UL RBC (test code = 1002) 3.93 M/UL HEMOGLOBIN (test code = 1003) 11.6 G/DL HEMATOCRIT (test code = 1004) 35.3 % MCV (test code = 1005) 89.8 fL MCH (test code = 1006) 29.5 PG MCHC (test code = 1007) 32.9 G/DL RDW (test code = 1038) 13.4 % NEUTROPHILS (test code = 1008) 51.1 % LYMPHOCYTES (test code = 1010) 37.8 % MONOCYTES (test code = 1011) 7.5 % EOSINOPHILS (test code = 1012) 2.4 % BASOPHILS (test code = 1013) 0.4 % IMMATURE GRANULOCYTES (test 0.8 % code = 1036) NUCLEATED RBCS (test code = 0.0 /100WBC'S 1065) PLATELET COUNT (test code = 266 K/UL 1015) ABSOLUTE NEUTROPHILS (test code 4.77 K/UL = 1066) ABSOLUTE LYMPHOCYTES (test code 3.53 K/UL = 1067) ABSOLUTE MONOCYTES (test code = 0.70 K/UL 1068) ABSOLUTE EOSINOPHILS (test code 0.22 K/UL = 1040) ABSOLUTE BASOPHILS (test code = 0.04 K/UL 1069) ABS IMMATURE GRANULOCYTES (test 0.07 K/UL code = 1020) ABS NUCLEATED RBCS (test code = 0.00 K/UL 49885) CBC W/AUTO [id number] 00:00:00 Test Item Value Reference Range Interpretation Comments WBC (test code = 1001) 9.3 K/UL RBC (test code = 1002) 3.93 M/UL HEMOGLOBIN (test code = 1003) 11.6 G/DL HEMATOCRIT (test code = 1004) 35.3 % MCV (test code = 1005) 89.8 fL MCH (test code = 1006) 29.5 PG MCHC (test code = 1007) 32.9 G/DL RDW (test code = 1038) 13.4 % NEUTROPHILS (test code = 1008) 51.1 % LYMPHOCYTES (test code = 1010) 37.8 % MONOCYTES (test code = 1011) 7.5 % EOSINOPHILS (test code = 1012) 2.4 % BASOPHILS (test code = 1013) 0.4 % IMMATURE GRANULOCYTES (test 0.8 % code = 1036) NUCLEATED RBCS (test code = 0.0 /100WBC'S 1065) PLATELET COUNT (test code = 266 K/UL 1015) ABSOLUTE NEUTROPHILS (test code 4.77 K/UL = 1066) ABSOLUTE LYMPHOCYTES (test code 3.53 K/UL = 1067) ABSOLUTE MONOCYTES (test code = 0.70 K/UL 1068) ABSOLUTE EOSINOPHILS (test code 0.22 K/UL = 1040) ABSOLUTE BASOPHILS (test code = 0.04 K/UL 1069) ABS IMMATURE GRANULOCYTES (test 0.07 K/UL code = 1020) ABS NUCLEATED RBCS (test code = 0.00 K/UL 17301) CBC W/AUTO [id number] 00:00:00 Test Item Value Reference Range Interpretation Comments WBC (test code = 1001) 9.3 K/UL RBC (test code = 1002) 3.93 M/UL HEMOGLOBIN (test code = 1003) 11.6 G/DL HEMATOCRIT (test code = 1004) 35.3 % MCV (test code = 1005) 89.8 fL MCH (test code = 1006) 29.5 PG MCHC (test code = 1007) 32.9 G/DL RDW (test code = 1038) 13.4 % NEUTROPHILS (test code = 1008) 51.1 % LYMPHOCYTES (test code = 1010) 37.8 % MONOCYTES (test code = 1011) 7.5 % EOSINOPHILS (test code = 1012) 2.4 % BASOPHILS (test code = 1013) 0.4 % IMMATURE GRANULOCYTES (test 0.8 % code = 1036) NUCLEATED RBCS (test code = 0.0 /100WBC'S 1065) PLATELET COUNT (test code = 266 K/UL 1015) ABSOLUTE NEUTROPHILS (test code 4.77 K/UL = 1066) ABSOLUTE LYMPHOCYTES (test code 3.53 K/UL = 1067) ABSOLUTE MONOCYTES (test code = 0.70 K/UL 1068) ABSOLUTE EOSINOPHILS (test code 0.22 K/UL = 1040) ABSOLUTE BASOPHILS (test code = 0.04 K/UL 1069) ABS IMMATURE GRANULOCYTES (test 0.07 K/UL code = 1020) ABS NUCLEATED RBCS (test code = 0.00 K/UL 48967) PROTHROMBIN TIME (PT)2022-05-26 00:00:00 Test Item Value Reference Range Interpretation Comments PROTHROMBIN TIME (PT) (test code 13.2 SECONDS = 1402) INR (test code = 63132) 1.0 PROTHROMBIN TIME (PT)2022-05-26 00:00:00 Test Item Value Reference Range Interpretation Comments PROTHROMBIN TIME (PT) (test code 13.2 SECONDS = 1402) INR (test code = 96975) 1.0 CULTURE, [id number] 00:00:00 Test Item Value Reference Range Interpretation Comments CULTURE, URINE (test SPECIMEN NUMBER: code = 46125) [id number] CULTURE, [id number] 00:00:00 Test Item Value Reference Range Interpretation Comments CULTURE, URINE (test SPECIMEN NUMBER: code = 49941) [id number] CULTURE, [id number] 00:00:00 Test Item Value Reference Range Interpretation Comments CULTURE, URINE (test SPECIMEN NUMBER: code = 50675) [id number] CULTURE, [id number] 00:00:00 Test Item Value Reference Range Interpretation Comments CULTURE, URINE (test SPECIMEN NUMBER: code = 84479) [id number] CULTURE, [id number] 00:00:00 Test Item Value Reference Range Interpretation Comments CULTURE, URINE (test SPECIMEN NUMBER: code = 96607) [id number] CULTURE, [id number] 00:00:00 Test Item Value Reference Range Interpretation Comments CULTURE, URINE (test SPECIMEN NUMBER: code = 64217) [id number] 10:13:00 Test Item Value Reference Range Interpretation Comments GLUBED (test code = 250 mg/dL 74-106 H Performe d by certified GLUBED) 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 INDICATION: TO EVAL LUNGS . COMPARISON: None available. TECHNIQUE: Frontal chest. FINDINGS: Lines, Tubes and Hardware: None. Lungs and Pleura: No focal c onsolidation, pleural effusion, or pneumothorax is identified. Haziness within the lung base on the left. Heart and Mediastinum: The heart size is normal. There are faint atherosclerotic calcificationsof the aortic arch. Pulmonary vascularity is unremarkable. Bones: No acute skeletal abnormality is identified. There are degenerative changes of the thoracic spine. Upper abdomen: Within normal limits IMPRESSION: Lung base atelectasis at 8647 Reported and signed by: Tamir Gibbons M.D. CC: Kari Groves MD; Sophie Torres NP Technologist: Jt No RT(R) Trnscrd Date/Time/By: 04/28/2022 (0753) : By: [email or web address] Orig Print D/T: S: 04/28/2022 (0752) PAGE 1 Signed [id number] 07:24:00 Test Item Value Reference Range Interpretation Comments GLUBED (test code = 230 mg/dL 74-106 H Performe d by certified GLUBED) slasher machine operator at [facility] POC CALCIUM [id number] 05:59:00 Test Item Value Reference Range Interpretation Comments POC CALCIUM IONIZED (test code = 1.19 mmol/L 1.12-1.32 N CAIP) CALCIUM [id number] 05:33:00 Test Item Value Reference Range Interpretation Comments CALCIUM IONIZED (test code = DEMETRIA) mmol/L 1.12-1.32 [id number] 05:33:00 Test Item Value Reference Range Interpretation Comments GLYCOSYLATED HEMOGLOBIN 8.4 % HbA1 [facility] DIAGNOSIS: (HA1C) (test code = HbA1C GLYHGB) (%) ----- ----- Diab etic >6.4Prediabetes 5.7 - 6.4Normal <5. 7 ESTIMATED AVERAGE 194 MG/DL GLUCOSE (test code = EAG) COMPREHENSIVE METABOLIC [id number] 05:20:00 Test Item Value Reference Range Interpretation [...] (test code = ALKP) change in reagent. [id number] 05:20:00 Test Item Value Reference Range Interpretation Comments PHOSPHORUS (test code = PHOS) 3.7 mg/dL 2.5-4.9 N [id number] 05:20:00 Test Item Value Reference Range Interpretation Comments MAGNESIUM (test code = MAG) 1.7 mg/dL 1.8-2.4 L CBC W/AUTO [id number] 05:10:00 Test Item Value Reference Range Interpretation [...] 0.00 K/mm3 0.0-0.1 N NRBC#) HEPATIC FUNCTION [id number] 23:51:00 Test Item Value Reference Range Interpretation [...] range due ALKP) to change in reagent. [id number] 23:51:00 Test Item Value Reference Range Interpretation Comments LIPASE (test code = LIP) 79 U/L 12.00-57.00 H [id number] 23:51:00 Test Item Value Reference Range Interpretation Comments MAGNESIUM (test code = MAG) 1.8 mg/dL 1.8-2.4 N [id number] 23:51:00 Test Item Value Reference Range Interpretation Comments TROPONIN-HS (test <4.0 pg/mL 0-45 N CAUTION: U nits of the code = TROPI) current test m ethodology (pg/mL)differ f rom the prior test meth odology (ng/mL) by a fa ctorof 1000. BASIC METABOLIC [id number] 23:51:00 Test Item Value Reference Range Interpretation [...] the recommended for liseth for GFRby the [facility] on for Adults.The GFR will [...] 9.0 mg/dL 8.5-10.1 N = CA) PROTHROMBIN [id number] 23:43:00 Test Item Value Reference Range Interpretation [...] (2.5-3.5) IS PATIENT ON ANTICOAGULANTS? NTHROMBOPLASTIN TIME [id number] 23:43:00 Test Item Value Reference Range Interpretation Comments THROMBOPLASTIN TIME PARTIAL 22.4 seconds 23.0-37.0 L (test code = PTT) IS PATIENT ON ANTICOAGULANTS? NCBC W/O [id number] 23:42:00 Test Item Value Reference Range Interpretation [...] N = MPV) - XR CHEST 1 [id number] 23:30:00 [facility])Name: ARMEN LOPEZ : 1950 Sex: F FAX: Usha Ramachandran MD [phone] [place]: St: ADM Name: ARMEN LOPEZ [facility] : 1950 Age/S: 71/F [address] [facility] #: [id number] Loc: [place] [address] Phys: Usha Ramachandran MDAcct: [id number] Dis Date: Status: ADM IN PHONE #: [phone] Exam Date: 04/27/2022 231 FAX #:[phone] Reason: CHEST PAIN EXAMS: CPT CODE: [id number] XR CHEST 1 V [id number] Dictation location: H3 Chest x-ray exam, AP frontal projection, one view, 04/27/22 CLINICAL HISTORY: Chest pain Comparison exam: None of the chest available Exam is somewhat limited given shallow degree of inspiration and overlying objects. Given technical factors, heart, lungs, and mediastinal structures are unremarkable. Do not see a definite acute osseous finding. No definite findings for pneumonia or CHF. No abnormalair collection. IMPRESSION: No acute finding given technical factors at 2330 Reported and signed by: Maryam Rehman M.D. CC: Usha Ramachandran MD Technologist: Jordan PACKR) Trnscrd Date/Time/By: 04/27/2022(2330) : By: [email or web address] Orig Print D/T: S: 04/27/2022 (3419) PAGE 1 Signed ReportLIPID [id number] 06:08:16 Test Item Value Reference Range Interpretation [...] MOREINFORMATION , SEE CLIENT ANNOUNCE MENT AT [email or web address] RISK RATIO LDL/HDL 1.49 RATIO <3.22 UNLESS O THERWISE (test code = 2238) INDICATED , ALL TESTING PERFORMED [facility], [facility]. [address] [place] [id number] [place] [address] DIRECTOR: KEN NEWMAN M.D. [place] NUMBER [id number] CAP ACCREDITATION N O. [id number] COMPREHENSIVE METABOLIC [id number] 06:08:16 Test Item Value Reference Range Interpretation Comments GLUCOSE (test code = 205 MG/DL 70-99 H 2216) BUN (test code = 23 MG/DL 8-23 2207) CREATININE (test 1.67 MG/DL 0.60-1.30 H code = 2214) eGFR (2020 CKD-EPI) 32 ML/MIN/1.73 >60 L (test code = 35325) CALC BUN/CREAT (test 14 RATIO 6-28 code = 2235) SODIUM (test code = 143 MEQ/L 333-258 0207) POTASSIUM (test code 4.2 MEQ/L 3.5-5.4 = 2228) CHLORIDE (test code 107 MEQ/L 95-107 = 2215) CARBON DIOXIDE (test 22 MEQ/L 19-31 code = 2206) CALCIUM (test code = 8.9 MG/DL 8.5-10.5 2208) PROTEIN, TOTAL (test 7.4 G/DL 6.1-8.3 code = 2229) ALBUMIN (test code = 4.1 G/DL 3.5-5.2 2200) CALC GLOBULIN (test 3.3 G/DL 1.9-3.7 code = 2240) CALC A/G RATIO (test 1.2 RATIO 1.0-2.6 code = 2234) BILIRUBIN, TOTAL 0.3 MG/DL See_Comment [Automated message] (test code = 2206) [employer] which generated this result transmit ellie reference range : <=1.2. The refe rence range was not u sed to interpret th is result as normal/abnormal . ALKALINE PHOSPHATASE 57 U/L 40-142 (test code = 2203) AST (test code = 38 U/L 9-40 2217) ALT (test code = 21 U/L 5-40 2218) HEMOGLOBIN [id number] 04:41:39 Test Item Value Reference Range Interpretation Comments HEMOGLOBIN A1c (test 8.3 % 4.2-5.6 H [employer] AN DIABETES code = 83638) ASSOCIATION [employer] FOR HGB A1C: PREDIABETES/INC REASED [...] LABORATORY C ONSULTATION. CBC W/AUTO DIFF WITH [id number] 03:44:15 Test Item Value Reference Range Interpretation [...] RBCS 0.00 K/UL 0.00-0.11 (test code = 66982) HEMOGLOBIN [id number] 00:00:00 Test Item Value Reference Range Interpretation Comments HEMOGLOBIN A1c (test code = 83016) 8.3 % HEMOGLOBIN [id number] 00:00:00 Test Item Value Reference Range Interpretation Comments HEMOGLOBIN A1c (test code = 29807) 8.3 % HEMOGLOBIN [id number] 00:00:00 Test Item Value Reference Range Interpretation Comments HEMOGLOBIN A1c (test code = 83384) 8.3 % CBC W/AUTO [id number] 00:00:00 Test Item Value Reference Range Interpretation [...] NUCLEATED RBCS (test code = 0.00 K/UL 87913) CBC W/AUTO [id number] 00:00:00 Test Item Value Reference Range Interpretation [...] NUCLEATED RBCS (test code = 0.00 K/UL 74833) CBC W/AUTO [id number] 00:00:00 Test Item Value Reference Range Interpretation [...] NUCLEATED RBCS (test code = 0.00 K/UL 37501) COMPREHENSIVE METABOLIC [id number] 00:00:00 Test Item Value Reference Range Interpretation Comments GLUCOSE (test code = 2217) 205 MG/DL BUN (test code = 2208) 23 MG/DL CREATININE (test code = 2214) 1.67 MG/DL eGFR (2020 CKD-EPI) (test code 32 ML/MIN/1.73 = 57140) CALC BUN/CREAT (test code = 14 RATIO [...] code = 2219) 21 U/L COMPREHENSIVE METABOLIC [id number] 00:00:00 Test Item Value Reference Range Interpretation Comments GLUCOSE (test code = 2217) 205 MG/DL BUN (test code = 2208) 23 MG/DL CREATININE (test code = 2214) 1.67 MG/DL eGFR (2020 CKD-EPI) (test code 32 ML/MIN/1.73 = 21570) CALC BUN/CREAT (test code = 14 RATIO 2235) SODIUM (test code = 2231) 143 MEQ/L POTASSIUM (test code = 2228) 4.2 MEQ/L CHLORIDE (test code = 2215) 107 MEQ/L CARBON DIOXIDE (test code = 22 MEQ/L 220) CALCIUM (test code = 2209) 8.9 MG/DL [...] (test code = 2219) 21 U/L LIPID [id number] 00:00:00 Test Item Value Reference Range Interpretation Comments CHOLESTEROL (test code = 2210) 160 MG/DL TRIGLYCERIDES (test code = 2232) 129 MG/DL HDL CHOLESTEROL (test code = 2220) 55 MG/DL CALC LDL CHOL (test code = 2237) 82 MG/DL RISK RATIO LDL/HDL (test code = 1.49 RATIO 2238) LIPID [id number] 00:00:00 Test Item Value Reference Range Interpretation Comments CHOLESTEROL (test code = 2210) 160 MG/DL TRIGLYCERIDES (test code = 2232) 129 MG/DL HDL CHOLESTEROL (test code = 2220) 55 MG/DL CALC LDL CHOL (test code = 2237) 82 MG/DL RISK RATIO LDL/HDL (test code = 1.49 RATIO 2238) HEMOGLOBIN [id number] 00:00:00 Test Item Value Reference Range Interpretation Comments HEMOGLOBIN A1c (test code = 40721) 8.3 % HEMOGLOBIN [id number] 00:00:00 Test Item Value Reference Range Interpretation Comments HEMOGLOBIN A1c (test code = 87533) 8.3 % HEMOGLOBIN [id number] 00:00:00 Test Item Value Reference Range Interpretation Comments HEMOGLOBIN A1c (test code = 77720) 8.3 % CBC W/AUTO [id number] 00:00:00 Test Item Value Reference Range Interpretation [...] NUCLEATED RBCS (test code = 0.00 K/UL 60602) CBC W/AUTO [id number] 00:00:00 Test Item Value Reference Range Interpretation [...] NUCLEATED RBCS (test code = 0.00 K/UL 95964) CBC W/AUTO [id number] 00:00:00 Test Item Value Reference Range Interpretation [...] NUCLEATED RBCS (test code = 0.00 K/UL 40127) COMPREHENSIVE METABOLIC [id number] 00:00:00 Test Item Value Reference Range Interpretation Comments GLUCOSE (test code = 2217) 205 MG/DL BUN (test code = 2208) 23 MG/DL CREATININE (test code = 2214) 1.67 MG/DL eGFR (2020 CKD-EPI) (test code 32 ML/MIN/1.73 = 08758) CALC BUN/CREAT (test code = 14 RATIO [...] code = 2219) 21 U/L COMPREHENSIVE METABOLIC [id number] 00:00:00 Test Item Value Reference Range Interpretation Comments GLUCOSE (test code = 2217) 205 MG/DL BUN (test code = 2208) 23 MG/DL CREATININE (test code = 2214) 1.67 MG/DL eGFR (2020 CKD-EPI) (test code 32 ML/MIN/1.73 = 51712) CALC BUN/CREAT (test code = 14 RATIO [...] (test code = 2219) 21 U/L LIPID [id number] 00:00:00 Test Item Value Reference Range Interpretation Comments CHOLESTEROL (test code = 2210) 160 MG/DL TRIGLYCERIDES (test code = 2232) 129 MG/DL HDL CHOLESTEROL (test code = 2220) 55 MG/DL CALC LDL CHOL (test code = 2237) 82 MG/DL RISK RATIO LDL/HDL (test code = 1.49 RATIO 2238) LIPID [id number] 00:00:00 Test Item Value Reference Range Interpretation Comments CHOLESTEROL (test code = 2210) 160 MG/DL TRIGLYCERIDES (test code = 2232) 129 MG/DL HDL CHOLESTEROL (test code = 2220) 55 MG/DL CALC LDL CHOL (test code = 2237) 82 MG/DL RISK RATIO LDL/HDL (test code = 1.49 RATIO 2238) HEMOGLOBIN [id number] 00:00:00 Test Item Value Reference Range Interpretation Comments HEMOGLOBIN A1c (test code = 81536) 8.3 % HEMOGLOBIN [id number] 00:00:00 Test Item Value Reference Range Interpretation Comments HEMOGLOBIN A1c (test code = 07069) 8.3 % HEMOGLOBIN [id number] 00:00:00 Test Item Value Reference Range Interpretation Comments HEMOGLOBIN A1c (test code = 01182) 8.3 % CBC W/AUTO [id number] 00:00:00 Test Item Value Reference Range Interpretation [...] NUCLEATED RBCS (test code = 0.00 K/UL 46682) CBC W/AUTO [id number] 00:00:00 Test Item Value Reference Range Interpretation [...] NUCLEATED RBCS (test code = 0.00 K/UL 94567) CBC W/AUTO [id number] 00:00:00 Test Item Value Reference Range Interpretation [...] NUCLEATED RBCS (test code = 0.00 K/UL 63673) COMPREHENSIVE METABOLIC [id number] 00:00:00 Test Item Value Reference Range Interpretation Comments GLUCOSE (test code = 2217) 205 MG/DL BUN (test code = 2208) 23 MG/DL CREATININE (test code = 2214) 1.67 MG/DL eGFR (2020 CKD-EPI) (test code 32 ML/MIN/1.73 = 74359) CALC BUN/CREAT (test code = 14 RATIO [...] code = 2219) 21 U/L COMPREHENSIVE METABOLIC [id number] 00:00:00 Test Item Value Reference Range Interpretation Comments GLUCOSE (test code = 2217) 205 MG/DL BUN (test code = 2208) 23 MG/DL CREATININE (test code = 2214) 1.67 MG/DL eGFR (2020 CKD-EPI) (test code 32 ML/MIN/1.73 = 93603) CALC BUN/CREAT (test code = 14 RATIO 223) SODIUM (test code = 2231) 143 MEQ/L POTASSIUM (test code = 2228) 4.2 MEQ/L CHLORIDE (test code = 2215) 107 MEQ/L CARBON DIOXIDE (test code = 22 MEQ/L 2205) CALCIUM (test code = 2209) 8.9 MG/DL PROTEIN, TOTAL (test code = 7.4 G/DL 2228) ALBUMIN (test code = 220) 4.1 G/DL CALC GLOBULIN (test code = 3.3 G/DL 2239) CALC A/G RATIO (test code = 1.2 RATIO 2233) BILIRUBIN, TOTAL (test code = 0.3 MG/DL 2206) ALKALINE PHOSPHATASE (test 57 U/L code = 2204) AST (test code = 2218) 38 U/L ALT (test code = 2219) 21 U/L LIPID [id number] 00:00:00 Test Item Value Reference Range Interpretation Comments CHOLESTEROL (test code = 2210) 160 MG/DL TRIGLYCERIDES (test code = 2232) 129 MG/DL HDL CHOLESTEROL (test code = 2220) 55 MG/DL CALC LDL CHOL (test code = 2237) 82 MG/DL RISK RATIO LDL/HDL (test code = 1.49 RATIO 2238) LIPID [id number] 00:00:00 Test Item Value Reference Range Interpretation Comments CHOLESTEROL (test code = 2210) 160 MG/DL TRIGLYCERIDES (test code = 2232) 129 MG/DL HDL CHOLESTEROL (test code = 2220) 55 MG/DL CALC LDL CHOL (test code = 2237) 82 MG/DL RISK RATIO LDL/HDL (test code = 1.49 RATIO 2238) HEMOGLOBIN [id number] 00:00:00 Test Item Value Reference Range Interpretation Comments HEMOGLOBIN A1c (test code = 35567) 8.3 % HEMOGLOBIN [id number] 00:00:00 Test Item Value Reference Range Interpretation Comments HEMOGLOBIN A1c (test code = 30467) 8.3 % HEMOGLOBIN [id number] 00:00:00 Test Item Value Reference Range Interpretation Comments HEMOGLOBIN A1c (test code = 90024) 8.3 % CBC W/AUTO [id number] 00:00:00 Test Item Value Reference Range Interpretation [...] NUCLEATED RBCS (test code = 0.00 K/UL 11944) CBC W/AUTO [id number] 00:00:00 Test Item Value Reference Range Interpretation [...] NUCLEATED RBCS (test code = 0.00 K/UL 64452) CBC W/AUTO [id number] 00:00:00 Test Item Value Reference Range Interpretation [...] NUCLEATED RBCS (test code = 0.00 K/UL 50727) COMPREHENSIVE METABOLIC [id number] 00:00:00 Test Item Value Reference Range Interpretation Comments GLUCOSE (test code = 2217) 205 MG/DL BUN (test code = 2208) 23 MG/DL CREATININE (test code = 2214) 1.67 MG/DL eGFR (2020 CKD-EPI) (test code 32 ML/MIN/1.73 = 00977) CALC BUN/CREAT (test code = 14 RATIO [...] code = 2219) 21 U/L COMPREHENSIVE METABOLIC [id number] 00:00:00 Test Item Value Reference Range Interpretation Comments GLUCOSE (test code = 2217) 205 MG/DL BUN (test code = 2208) 23 MG/DL CREATININE (test code = 2214) 1.67 MG/DL eGFR (2020 CKD-EPI) (test code 32 ML/MIN/1.73 = 76223) CALC BUN/CREAT (test code = 14 RATIO 2235) SODIUM (test code = 2231) 143 MEQ/L POTASSIUM (test code = 2228) 4.2 MEQ/L CHLORIDE (test code = 2215) 107 MEQ/L CARBON DIOXIDE (test code = 22 MEQ/L 220) CALCIUM (test code = 2209) 8.9 MG/DL [...] (test code = 2219) 21 U/L LIPID [id number] 00:00:00 Test Item Value Reference Range Interpretation Comments CHOLESTEROL (test code = 2210) 160 MG/DL TRIGLYCERIDES (test code = 2232) 129 MG/DL HDL CHOLESTEROL (test code = 2220) 55 MG/DL CALC LDL CHOL (test code = 2237) 82 MG/DL RISK RATIO LDL/HDL (test code = 1.49 RATIO 2238) LIPID [id number] 00:00:00 Test Item Value Reference Range Interpretation Comments CHOLESTEROL (test code = 2210) 160 MG/DL TRIGLYCERIDES (test code = 2232) 129 MG/DL HDL CHOLESTEROL (test code = 2220) 55 MG/DL CALC LDL CHOL (test code = 2237) 82 MG/DL RISK RATIO LDL/HDL (test code = 1.49 RATIO 2238) HEMOGLOBIN [id number] 00:00:00 Test Item Value Reference Range Interpretation Comments HEMOGLOBIN A1c (test code = 22042) 8.3 % HEMOGLOBIN [id number] 00:00:00 Test Item Value Reference Range Interpretation Comments HEMOGLOBIN A1c (test code = 65665) 8.3 % HEMOGLOBIN [id number] 00:00:00 Test Item Value Reference Range Interpretation Comments HEMOGLOBIN A1c (test code = 01361) 8.3 % CBC W/AUTO [id number] 00:00:00 Test Item Value Reference Range Interpretation [...] NUCLEATED RBCS (test code = 0.00 K/UL 90399) CBC W/AUTO [id number] 00:00:00 Test Item Value Reference Range Interpretation [...] NUCLEATED RBCS (test code = 0.00 K/UL 89781) CBC W/AUTO [id number] 00:00:00 Test Item Value Reference Range Interpretation [...] NUCLEATED RBCS (test code = 0.00 K/UL 25357) COMPREHENSIVE METABOLIC [id number] 00:00:00 Test Item Value Reference Range Interpretation Comments GLUCOSE (test code = 2217) 205 MG/DL BUN (test code = 2208) 23 MG/DL CREATININE (test code = 2214) 1.67 MG/DL eGFR (2020 CKD-EPI) (test code 32 ML/MIN/1.73 = 88266) CALC BUN/CREAT (test code = 14 RATIO [...] code = 2219) 21 U/L COMPREHENSIVE METABOLIC [id number] 00:00:00 Test Item Value Reference Range Interpretation Comments GLUCOSE (test code = 221) 205 MG/DL BUN (test code = 2208) 23 MG/DL CREATININE (test code = 2214) 1.67 MG/DL eGFR (2020 CKD-EPI) (test code 32 ML/MIN/1.73 = 60892) CALC BUN/CREAT (test code = 14 RATIO [...] (test code = 2219) 21 U/L LIPID [id number] 00:00:00 Test Item Value Reference Range Interpretation Comments CHOLESTEROL (test code = 2210) 160 MG/DL TRIGLYCERIDES (test code = 2232) 129 MG/DL HDL CHOLESTEROL (test code = 2220) 55 MG/DL CALC LDL CHOL (test code = 2237) 82 MG/DL RISK RATIO LDL/HDL (test code = 1.49 RATIO 2238) LIPID [id number] 00:00:00 Test Item Value Reference Range Interpretation Comments CHOLESTEROL (test code = 2210) 160 MG/DL TRIGLYCERIDES (test code = 2232) 129 MG/DL HDL CHOLESTEROL (test code = 2220) 55 MG/DL CALC LDL CHOL (test code = 2237) 82 MG/DL RISK RATIO LDL/HDL (test code = 1.49 RATIO 2238) HEMOGLOBIN [id number] 00:00:00 Test Item Value Reference Range Interpretation Comments HEMOGLOBIN A1c (test code = 09943) 8.3 % HEMOGLOBIN [id number] 00:00:00 Test Item Value Reference Range Interpretation Comments HEMOGLOBIN A1c (test code = 74312) 8.3 % HEMOGLOBIN [id number] 00:00:00 Test Item Value Reference Range Interpretation Comments HEMOGLOBIN A1c (test code = 39610) 8.3 % CBC W/AUTO [id number] 00:00:00 Test Item Value Reference Range Interpretation [...] NUCLEATED RBCS (test code = 0.00 K/UL 17717) CBC W/AUTO [id number] 00:00:00 Test Item Value Reference Range Interpretation [...] NUCLEATED RBCS (test code = 0.00 K/UL 16155) CBC W/AUTO [id number] 00:00:00 Test Item Value Reference Range Interpretation [...] NUCLEATED RBCS (test code = 0.00 K/UL 06926) COMPREHENSIVE METABOLIC [id number] 00:00:00 Test Item Value Reference Range Interpretation Comments GLUCOSE (test code = 2217) 205 MG/DL BUN (test code = 2208) 23 MG/DL CREATININE (test code = 2214) 1.67 MG/DL eGFR (2020 CKD-EPI) (test code 32 ML/MIN/1.73 = 62032) CALC BUN/CREAT (test code = 14 RATIO [...] code = 2219) 21 U/L COMPREHENSIVE METABOLIC [id number] 00:00:00 Test Item Value Reference Range Interpretation Comments GLUCOSE (test code = 2217) 205 MG/DL BUN (test code = 2208) 23 MG/DL CREATININE (test code = 2214) 1.67 MG/DL eGFR (2020 CKD-EPI) (test code 32 ML/MIN/1.73 = 54279) CALC BUN/CREAT (test code = 14 RATIO [...] (test code = 2219) 21 U/L LIPID [id number] 00:00:00 Test Item Value Reference Range Interpretation Comments CHOLESTEROL (test code = 2210) 160 MG/DL TRIGLYCERIDES (test code = 2232) 129 MG/DL HDL CHOLESTEROL (test code = 2220) 55 MG/DL CALC LDL CHOL (test code = 2237) 82 MG/DL RISK RATIO LDL/HDL (test code = 1.49 RATIO 2238) LIPID [id number] 00:00:00 Test Item Value Reference Range Interpretation Comments CHOLESTEROL (test code = 2210) 160 MG/DL TRIGLYCERIDES (test code = 2232) 129 MG/DL HDL CHOLESTEROL (test code = 2220) 55 MG/DL CALC LDL CHOL (test code = 2237) 82 MG/DL RISK RATIO LDL/HDL (test code = 1.49 RATIO 2238) CULTURE, [id number] 14:31:20SPECIMEN NUMBER: [id number] CULTURE, URINE SPECIMEN NUMBER: [id number] SPECIMEN COMMENT: URINE SOURCE:URINE REPORT STATUS: FINAL [...] MCG/ML. UNLESS OTHERWISE INDICATED, ALL TESTING PERFORMED [facility] [address] [place] [address] ACADEMIC VICE PRESIDENT: KEN NEWMAN M.D. CLIA NUMBER [id number] [facility] [place]. [id number], [id number] 00:00:00 Test Item Value Reference Range Interpretation Comments CULTURE, URINE (test SPECIMEN NUMBER: code = 99246) [id number] CULTURE, [id number] 00:00:00 Test Item Value Reference Range Interpretation Comments CULTURE, URINE (test SPECIMEN NUMBER: code = 42009) [id number] CULTURE, [id number] 00:00:00 Test Item Value Reference Range Interpretation Comments CULTURE, URINE (test SPECIMEN NUMBER: code = 22436) [id number] CULTURE, [id number] 00:00:00 Test Item Value Reference Range Interpretation Comments CULTURE, URINE (test SPECIMEN NUMBER: code = 29033) [id number] CULTURE, [id number] 00:00:00 Test Item Value Reference Range Interpretation Comments CULTURE, URINE (test SPECIMEN NUMBER: code = 66146) [id number] CULTURE, [id number] 00:00:00 Test Item Value Reference Range Interpretation Comments CULTURE, URINE (test SPECIMEN NUMBER: code = 59284) [id number] CULTURE, [id number] 00:00:00 Test Item Value Reference Range Interpretation Comments CULTURE, URINE (test SPECIMEN NUMBER: code = 01287) [id number] CULTURE, [id number] 00:00:00 Test Item Value Reference Range Interpretation Comments CULTURE, URINE (test SPECIMEN NUMBER: code = 19292) [id number] CULTURE, [id number] 00:00:00 Test Item Value Reference Range Interpretation Comments CULTURE, URINE (test SPECIMEN NUMBER: code = 13591) [id number] CULTURE, [id number] 00:00:00 Test Item Value Reference Range Interpretation Comments CULTURE, URINE (test SPECIMEN NUMBER: code = 44109) [id number] CULTURE, [id number] 00:00:00 Test Item Value Reference Range Interpretation Comments CULTURE, URINE (test SPECIMEN NUMBER: code = 50672) [id number] CULTURE, [id number] 00:00:00 Test Item Value Reference Range Interpretation Comments CULTURE, URINE (test SPECIMEN NUMBER: code = 71961) [id number] OCCULT BLD,FECAL,IMMUNOASSAY [id number] 16:34:09 Test Item Value Reference Range Interpretation Comments OCCULT BLD, FECAL NEGATIVE NEGATIVE Note: Spe cimen received (test code = 48335) in an ex pired collection system. Results and details of anal ysis reviewed by [facility] IRIS MASSEY M.D. UNLESS OTHERWISE INDIC ATED, ALL TESTING PERFORM ED ATCLINICAL PATH [facility], [address] [address] LABORATORY DIRE CTOR: Rojelio VILLAGRAN CLIA NUMBER [id number] CAP ACCREDITATION N O. [id number] OCCULT BLD,FECAL,IMMUNOASSAY [id number] 00:00:00 Test Item Value Reference Range Interpretation Comments OCCULT BLD, FECAL (test code = NEGATIVE 76264) OCCULT BLD,FECAL,IMMUNOASSAY [id number] 00:00:00 Test Item Value Reference Range Interpretation Comments OCCULT BLD, FECAL (test code = NEGATIVE 11447) OCCULT BLD,FECAL,IMMUNOASSAY [id number] 00:00:00 Test Item Value Reference Range Interpretation Comments OCCULT BLD, FECAL (test code = NEGATIVE 59407) OCCULT BLD,FECAL,IMMUNOASSAY [id number] 00:00:00 Test Item Value Reference Range Interpretation Comments OCCULT BLD, FECAL (test code = NEGATIVE 01834) OCCULT BLD,FECAL,IMMUNOASSAY [id number] 00:00:00 Test Item Value Reference Range Interpretation Comments OCCULT BLD, FECAL (test code = NEGATIVE 10688) OCCULT BLD,FECAL,IMMUNOASSAY [id number] 00:00:00 Test Item Value Reference Range Interpretation Comments OCCULT BLD, FECAL (test code = NEGATIVE 66110) OCCULT BLD,FECAL,IMMUNOASSAY [id number] 00:00:00 Test Item Value Reference Range Interpretation Comments OCCULT BLD, FECAL (test code = NEGATIVE 39133) OCCULT BLD,FECAL,IMMUNOASSAY [id number] 00:00:00 Test Item Value Reference Range Interpretation Comments OCCULT BLD, FECAL (test code = NEGATIVE 58303) OCCULT BLD,FECAL,IMMUNOASSAY [id number] 00:00:00 Test Item Value Reference Range Interpretation Comments OCCULT BLD, FECAL (test code = NEGATIVE 60194) OCCULT BLD,FECAL,IMMUNOASSAY [id number] 00:00:00 Test Item Value Reference Range Interpretation Comments OCCULT BLD, FECAL (test code = NEGATIVE 13725) OCCULT BLD,FECAL,IMMUNOASSAY [id number] 00:00:00 Test Item Value Reference Range Interpretation Comments OCCULT BLD, FECAL (test code = NEGATIVE 94633) OCCULT BLD,FECAL,IMMUNOASSAY [id number] 00:00:00 Test Item Value Reference Range Interpretation Comments OCCULT BLD, FECAL (test code = NEGATIVE 85461) OCCULT BLD,FECAL,IMMUNOASSAY [id number] 00:00:00 Test Item Value Reference Range Interpretation Comments OCCULT BLD, FECAL (test code = NEGATIVE 27525) HEMOGLOBIN [id number] 04:08:08 Test Item Value Reference Range Interpretation Comments HEMOGLOBIN A1c (test 8.3 % 4.2-5.6 H [employer] AN DIABETES code = 16712) ASSOCIATION IDELINES FOR HGB A1C: PREDIABETES/INC REASED [...] OTHERWIS E INDICATED, ALL TESTING PER [facility], [facility]. [address] [address] LABORATORY DIRE CTOR: Rojelio VILLAGRAN. MARISAIA NUMBER [id number] [facility] ACCREDITATION N O. [id number] HEMOGLOBIN [id number] 00:00:00 Test Item Value Reference Range Interpretation Comments HEMOGLOBIN A1c (test code = 82435) 8.3 % HEMOGLOBIN [id number] 00:00:00 Test Item Value Reference Range Interpretation Comments HEMOGLOBIN A1c (test code = 83762) 8.3 % HEMOGLOBIN [id number] 00:00:00 Test Item Value Reference Range Interpretation Comments HEMOGLOBIN A1c (test code = 64264) 8.3 % HEMOGLOBIN [id number] 00:00:00 Test Item Value Reference Range Interpretation Comments HEMOGLOBIN A1c (test code = 69556) 8.3 % HEMOGLOBIN [id number] 00:00:00 Test Item Value Reference Range Interpretation Comments HEMOGLOBIN A1c (test code = 37182) 8.3 % HEMOGLOBIN [id number] 00:00:00 Test Item Value Reference Range Interpretation Comments HEMOGLOBIN A1c (test code = 14114) 8.3 % HEMOGLOBIN [id number] 00:00:00 Test Item Value Reference Range Interpretation Comments HEMOGLOBIN A1c (test code = 42201) 8.3 % HEMOGLOBIN [id number] 00:00:00 Test Item Value Reference Range Interpretation Comments HEMOGLOBIN A1c (test code = 02399) 8.3 % HEMOGLOBIN [id number] 00:00:00 Test Item Value Reference Range Interpretation Comments HEMOGLOBIN A1c (test code = 24112) 8.3 % HEMOGLOBIN [id number] 00:00:00 Test Item Value Reference Range Interpretation Comments HEMOGLOBIN A1c (test code = 72079) 8.3 % HEMOGLOBIN [id number] 00:00:00 Test Item Value Reference Range Interpretation Comments HEMOGLOBIN A1c (test code = 86626) 8.3 % HEMOGLOBIN [id number] 00:00:00 Test Item Value Reference Range Interpretation Comments HEMOGLOBIN A1c (test code = 65039) 8.3 % HEMOGLOBIN [id number] 00:00:00 Test Item Value Reference Range Interpretation Comments HEMOGLOBIN A1c (test code = 89488) 8.3 % HEMOGLOBIN [id number] 00:00:00 Test Item Value Reference Range Interpretation Comments HEMOGLOBIN A1c (test code = 12407) 8.3 % HEMOGLOBIN [id number] 00:00:00 Test Item Value Reference Range Interpretation Comments HEMOGLOBIN A1c (test code = 27325) 8.3 % HEMOGLOBIN [id number] 00:00:00 Test Item Value Reference Range Interpretation Comments HEMOGLOBIN A1c (test code = 14581) 8.3 % HEMOGLOBIN [id number] 00:00:00 Test Item Value Reference Range Interpretation Comments HEMOGLOBIN A1c (test code = 26920) 8.3 % HEMOGLOBIN [id number] 00:00:00 Test Item Value Reference Range Interpretation Comments HEMOGLOBIN A1c (test code = 07076) 8.3 % HEMOGLOBIN [id number] 00:00:00 Test Item Value Reference Range Interpretation Comments HEMOGLOBIN A1c (test code = 90063) 8.3 % HEMOGLOBIN [id number] 00:00:00 Test Item Value Reference Range Interpretation Comments HEMOGLOBIN A1c (test code = 04421) 8.3 % HEMOGLOBIN [id number] 00:00:00 Test Item Value Reference Range Interpretation Comments HEMOGLOBIN A1c (test code = 71382) 8.3 % HEMOGLOBIN [id number] 00:00:00 Test Item Value Reference Range Interpretation Comments HEMOGLOBIN A1c (test code = 07603) 8.3 % CULTURE, [id number] 12:05:43SPECIMEN NUMBER: [id number] CULTURE, URINE SPECIMEN NUMBER: [id number] SPECIMEN COMMENT: URINE SOURCE:URINE REPORT STATUS: FINAL ISOLATE NUMBER 1: ORGANISM: 09/23/2021 >100,000 CFU/ML GRAM NEGATIVE BA CILLI IDENTIFICATION: 09/24/2021 ESCHERICHIA COLI E. COLI AMOXICILLIN/CA SENSITIVE <=8/4AMPICILLIN RESISTANT >16CEFAZOLIN SENSITIVE <=2CEFTRIAXONE SENSITIVE <=1CIPROFLOXACIN SENSITIVE <=1LEVOFLOXACIN SENSITIVE <=2NITROFURANTOIN SENSITIVE <=32PIP/TAZOBAC SENSITIVE <=16TETRACYCLINE RESISTANT >8TOBRAMYCIN SENSITIVE <=4TRIMETH/SULFA RESISTANT >2/38 NOTE: NUMBERS DISPLAYED REPRESENT MINIMUM INHIBITORY CONCENTRATION (MARTA) WHICH IS EXPRESSED IN MCG/ML. CULTURE, [id number] 00:00:00 Test Item Value Reference Range Interpretation Comments CULTURE, URINE (test SPECIMEN NUMBER: code = 32752) [id number] CULTURE, [id number] 00:00:00 Test Item Value Reference Range Interpretation Comments CULTURE, URINE (test SPECIMEN NUMBER: code = 94835) [id number] CULTURE, [id number] 00:00:00 Test Item Value Reference Range Interpretation Comments CULTURE, URINE (test SPECIMEN NUMBER: code = 44000) [id number] CULTURE, [id number] 00:00:00 Test Item Value Reference Range Interpretation Comments CULTURE, URINE (test SPECIMEN NUMBER: code = 16739) [id number] CULTURE, [id number] 00:00:00 Test Item Value Reference Range Interpretation Comments CULTURE, URINE (test SPECIMEN NUMBER: code = 99685) [id number] CULTURE, [id number] 00:00:00 Test Item Value Reference Range Interpretation Comments CULTURE, URINE (test SPECIMEN NUMBER: code = 58263) [id number] CULTURE, [id number] 00:00:00 Test Item Value Reference Range Interpretation Comments CULTURE, URINE (test SPECIMEN NUMBER: code = 19191) [id number] CULTURE, [id number] 00:00:00 Test Item Value Reference Range Interpretation Comments CULTURE, URINE (test SPECIMEN NUMBER: code = 58501) [id number] CULTURE, [id number] 00:00:00 Test Item Value Reference Range Interpretation Comments CULTURE, URINE (test SPECIMEN NUMBER: code = 35450) [id number] CULTURE, [id number] 00:00:00 Test Item Value Reference Range Interpretation Comments CULTURE, URINE (test SPECIMEN NUMBER: code = 24095) [id number] CULTURE, [id number] 00:00:00 Test Item Value Reference Range Interpretation Comments CULTURE, URINE (test SPECIMEN NUMBER: code = 39200) [id number] CULTURE, [id number] 00:00:00 Test Item Value Reference Range Interpretation Comments CULTURE, URINE (test SPECIMEN NUMBER: code = 10333) [id number] CULTURE, [id number] 00:00:00 Test Item Value Reference Range Interpretation Comments CULTURE, URINE (test SPECIMEN NUMBER: code = 56519) [id number] CULTURE, [id number] 00:00:00 Test Item Value Reference Range Interpretation Comments CULTURE, URINE (test SPECIMEN NUMBER: code = 50834) [id number] TSH, THIRD [id number] 03:43:01 Test Item Value Reference Range Interpretation Comments TSH, THIRD 2.470 UIU/ML 0.400-4.100 UNLESS OTHERWI SE GENERATION (test INDICATED, ALL TESTING code = 2821) [facility] [address] [place] [place] [address] [facility] DIRECTOR: KEN NEWMAN M.D. CLIA NUMBER [id number] CAP ACCREDITATION N O. [id number] CBC W/AUTO DIFF WITH [id number] 03:14:58 Test Item Value Reference Range Interpretation [...] RBCS 0.00 K/UL 0.00-0.11 (test code = 16214) COMPREHENSIVE METABOLIC [id number] 02:59:52 Test Item Value Reference Range Interpretation Comments GLUCOSE (test code = 188 MG/DL 70-99 H 2216) BUN (test code = 40 MG/DL 8-23 H 2207) CREATININE (test 1.36 MG/DL 0.60-1.30 H code = 2213) eGFR (2020 CKD-EPI) 41 ML/MIN/1.73 >60 L (test code = 12808) CALC BUN/CREAT (test 29 RATIO 6-28 H code = 2235) SODIUM (test code = 145 MEQ/L 982-656 9475) POTASSIUM (test code 5.2 MEQ/L 3.5-5.4 = [...] [Automated message] (test code = 2207) The [employer] which generated this result transmit ellie reference range : <=1.2. The refe rence range was not u sed to interpret th is result as normal/abnormal . ALKALINE PHOSPHATASE 84 U/L 40-142 (test code = 2204) AST (test code = 15 U/L 9-40 8) ALT (test code = 14 U/L 5-40 9) CBC W/AUTO [id number] 00:00:00 Test Item Value Reference Range Interpretation [...] NUCLEATED RBCS (test code = 0.00 K/UL 34327) CBC W/AUTO [id number] 00:00:00 Test Item Value Reference Range Interpretation [...] NUCLEATED RBCS (test code = 0.00 K/UL 77746) CBC W/AUTO [id number] 00:00:00 Test Item Value Reference Range Interpretation [...] NUCLEATED RBCS (test code = 0.00 K/UL 58324) COMPREHENSIVE METABOLIC [id number] 00:00:00 Test Item Value Reference Range Interpretation Comments GLUCOSE (test code = 2217) 188 MG/DL BUN (test code = 2208) 40 MG/DL CREATININE (test code = 2214) 1.36 MG/DL eGFR (2020 CKD-EPI) (test code 41 ML/MIN/1.73 = 99300) CALC BUN/CREAT (test code = 29 RATIO [...] code = 2219) 14 U/L COMPREHENSIVE METABOLIC [id number] 00:00:00 Test Item Value Reference Range Interpretation Comments GLUCOSE (test code = 2217) 188 MG/DL BUN (test code = 2208) 40 MG/DL CREATININE (test code = 2214) 1.36 MG/DL eGFR (2020 CKD-EPI) (test code 41 ML/MIN/1.73 = 39440) CALC BUN/CREAT (test code = 29 RATIO [...] ALT (test code = 2219) 14 U/L [id number] 00:00:00 Test Item Value Reference Range Interpretation Comments TSH, THIRD GENERATION (test code 2.470 UIU/ML = 2821) [id number] 00:00:00 Test Item Value Reference Range Interpretation Comments TSH, THIRD GENERATION (test code 2.470 UIU/ML = 2821) [id number] 00:00:00 Test Item Value Reference Range Interpretation Comments TSH, THIRD GENERATION (test code 2.470 UIU/ML = 2821) CBC W/AUTO [id number] 00:00:00 Test Item Value Reference Range Interpretation [...] NUCLEATED RBCS (test code = 0.00 K/UL 79543) CBC W/AUTO [id number] 00:00:00 Test Item Value Reference Range Interpretation [...] NUCLEATED RBCS (test code = 0.00 K/UL 72554) CBC W/AUTO [id number] 00:00:00 Test Item Value Reference Range Interpretation [...] NUCLEATED RBCS (test code = 0.00 K/UL 57744) COMPREHENSIVE METABOLIC [id number] 00:00:00 Test Item Value Reference Range Interpretation Comments GLUCOSE (test code = 2217) 188 MG/DL BUN (test code = 2208) 40 MG/DL CREATININE (test code = 2214) 1.36 MG/DL eGFR (2020 CKD-EPI) (test code 41 ML/MIN/1.73 = 99417) CALC BUN/CREAT (test code = 29 RATIO [...] code = 2219) 14 U/L COMPREHENSIVE METABOLIC [id number] 00:00:00 Test Item Value Reference Range Interpretation Comments GLUCOSE (test code = 2217) 188 MG/DL BUN (test code = 2208) 40 MG/DL CREATININE (test code = 2214) 1.36 MG/DL eGFR (2020 CKD-EPI) (test code 41 ML/MIN/1.73 = 21338) CALC BUN/CREAT (test code = 29 RATIO [...] ALT (test code = 2219) 14 U/L [id number] 00:00:00 Test Item Value Reference Range Interpretation Comments TSH, THIRD GENERATION (test code 2.470 UIU/ML = 2821) [id number] 00:00:00 Test Item Value Reference Range Interpretation Comments TSH, THIRD GENERATION (test code 2.470 UIU/ML = 2821) [id number] 00:00:00 Test Item Value Reference Range Interpretation Comments TSH, THIRD GENERATION (test code 2.470 UIU/ML = 2821) CBC W/AUTO [id number] 00:00:00 Test Item Value Reference Range Interpretation [...] NUCLEATED RBCS (test code = 0.00 K/UL 18701) CBC W/AUTO [id number] 00:00:00 Test Item Value Reference Range Interpretation [...] NUCLEATED RBCS (test code = 0.00 K/UL 26289) COMPREHENSIVE METABOLIC [id number] 00:00:00 Test Item Value Reference Range Interpretation Comments GLUCOSE (test code = 2217) 188 MG/DL BUN (test code = 2208) 40 MG/DL CREATININE (test code = 2214) 1.36 MG/DL eGFR (2020 CKD-EPI) (test code 41 ML/MIN/1.73 = 39119) CALC BUN/CREAT (test code = 29 RATIO [...] ALT (test code = 2219) 14 U/L [id number] 00:00:00 Test Item Value Reference Range Interpretation Comments TSH, THIRD GENERATION (test code 2.470 UIU/ML = 2821) CBC W/AUTO [id number] 00:00:00 Test Item Value Reference Range Interpretation [...] NUCLEATED RBCS (test code = 0.00 K/UL 22650) CBC W/AUTO [id number] 00:00:00 Test Item Value Reference Range Interpretation [...] NUCLEATED RBCS (test code = 0.00 K/UL 64560) CBC W/AUTO [id number] 00:00:00 Test Item Value Reference Range Interpretation [...] NUCLEATED RBCS (test code = 0.00 K/UL 41764) COMPREHENSIVE METABOLIC [id number] 00:00:00 Test Item Value Reference Range Interpretation Comments GLUCOSE (test code = 2217) 188 MG/DL BUN (test code = 2208) 40 MG/DL CREATININE (test code = 2214) 1.36 MG/DL eGFR (2020 CKD-EPI) (test code 41 ML/MIN/1.73 = 37506) CALC BUN/CREAT (test code = 29 RATIO [...] code = 2219) 14 U/L COMPREHENSIVE METABOLIC [id number] 00:00:00 Test Item Value Reference Range Interpretation Comments GLUCOSE (test code = 2217) 188 MG/DL BUN (test code = 2208) 40 MG/DL CREATININE (test code = 2214) 1.36 MG/DL eGFR (2020 CKD-EPI) (test code 41 ML/MIN/1.73 = 59708) CALC BUN/CREAT (test code = 29 RATIO 2235) SODIUM (test code = 2231) 145 MEQ/L POTASSIUM (test code = 2228) 5.2 MEQ/L CHLORIDE (test code = 2215) 109 MEQ/L CARBON DIOXIDE (test code = 21 MEQ/L 6) CALCIUM (test code = 2209) 9.7 MG/DL [...] ALT (test code = 2219) 14 U/L [id number] 00:00:00 Test Item Value Reference Range Interpretation Comments TSH, THIRD GENERATION (test code 2.470 UIU/ML = 2821) [id number] 00:00:00 Test Item Value Reference Range Interpretation Comments TSH, THIRD GENERATION (test code 2.470 UIU/ML = 2821) [id number] 00:00:00 Test Item Value Reference Range Interpretation Comments TSH, THIRD GENERATION (test code 2.470 UIU/ML = 2821) [id number] 00:00:00 Test Item Value Reference Range Interpretation Comments TSH, THIRD GENERATION (test code 2.470 UIU/ML = 2821) CBC W/AUTO [id number] 00:00:00 Test Item Value Reference Range Interpretation [...] NUCLEATED RBCS (test code = 0.00 K/UL 02375) CBC W/AUTO [id number] 00:00:00 Test Item Value Reference Range Interpretation [...] NUCLEATED RBCS (test code = 0.00 K/UL 92422) CBC W/AUTO [id number] 00:00:00 Test Item Value Reference Range Interpretation [...] NUCLEATED RBCS (test code = 0.00 K/UL 20607) COMPREHENSIVE METABOLIC [id number] 00:00:00 Test Item Value Reference Range Interpretation Comments GLUCOSE (test code = 2217) 188 MG/DL BUN (test code = 2208) 40 MG/DL CREATININE (test code = 2214) 1.36 MG/DL eGFR (2020 CKD-EPI) (test code 41 ML/MIN/1.73 = 11125) CALC BUN/CREAT (test code = 29 RATIO [...] code = 2219) 14 U/L COMPREHENSIVE METABOLIC [id number] 00:00:00 Test Item Value Reference Range Interpretation Comments GLUCOSE (test code = 2217) 188 MG/DL BUN (test code = 2208) 40 MG/DL CREATININE (test code = 2214) 1.36 MG/DL eGFR (2020 CKD-EPI) (test code 41 ML/MIN/1.73 = 52932) CALC BUN/CREAT (test code = 29 RATIO [...] ALT (test code = 2219) 14 U/L [id number] 00:00:00 Test Item Value Reference Range Interpretation Comments TSH, THIRD GENERATION (test code 2.470 UIU/ML = 2821) [id number] 00:00:00 Test Item Value Reference Range Interpretation Comments TSH, THIRD GENERATION (test code 2.470 UIU/ML = 2821) [id number] 00:00:00 Test Item Value Reference Range Interpretation Comments TSH, THIRD GENERATION (test code 2.470 UIU/ML = 2821) CBC W/AUTO [id number] 00:00:00 Test Item Value Reference Range Interpretation [...] NUCLEATED RBCS (test code = 0.00 K/UL 30487) CBC W/AUTO [id number] 00:00:00 Test Item Value Reference Range Interpretation [...] NUCLEATED RBCS (test code = 0.00 K/UL 02798) COMPREHENSIVE METABOLIC [id number] 00:00:00 Test Item Value Reference Range Interpretation Comments GLUCOSE (test code = 2217) 188 MG/DL BUN (test code = 2208) 40 MG/DL CREATININE (test code = 2214) 1.36 MG/DL eGFR (2020 CKD-EPI) (test code 41 ML/MIN/1.73 = 47727) CALC BUN/CREAT (test code = 29 RATIO [...] ALT (test code = 2219) 14 U/L [id number] 00:00:00 Test Item Value Reference Range Interpretation Comments TSH, THIRD GENERATION (test code 2.470 UIU/ML = 2821) [id number] 00:00:00 Test Item Value Reference Range Interpretation Comments TSH, THIRD GENERATION (test code 2.470 UIU/ML = 2821) CBC W/AUTO [id number] 00:00:00 Test Item Value Reference Range Interpretation [...] NUCLEATED RBCS (test code = 0.00 K/UL 77980) CBC W/AUTO [id number] 00:00:00 Test Item Value Reference Range Interpretation [...] NUCLEATED RBCS (test code = 0.00 K/UL 70331) CBC W/AUTO [id number] 00:00:00 Test Item Value Reference Range Interpretation [...] NUCLEATED RBCS (test code = 0.00 K/UL 23412) COMPREHENSIVE METABOLIC [id number] 00:00:00 Test Item Value Reference Range Interpretation Comments GLUCOSE (test code = 2217) 188 MG/DL BUN (test code = 2208) 40 MG/DL CREATININE (test code = 2214) 1.36 MG/DL eGFR (2020 CKD-EPI) (test code 41 ML/MIN/1.73 = 94123) CALC BUN/CREAT (test code = 29 RATIO [...] = 0.3 MG/DL 7) ALKALINE PHOSPHATASE (test 84 U/L code = 2204) AST (test code = 2218) 15 U/L ALT (test code = 2219) 14 U/L COMPREHENSIVE METABOLIC [id number] 00:00:00 Test Item Value Reference Range Interpretation Comments GLUCOSE (test code = 2217) 188 MG/DL BUN (test code = 2208) 40 MG/DL CREATININE (test code = 2214) 1.36 MG/DL eGFR (2020 CKD-EPI) (test code 41 ML/MIN/1.73 = 61184) CALC BUN/CREAT (test code = 29 RATIO [...] = 0.3 MG/DL 7) ALKALINE PHOSPHATASE (test 84 U/L code = 2204) AST (test code = 2218) 15 U/L ALT (test code = 2219) 14 U/L [id number] 00:00:00 Test Item Value Reference Range Interpretation Comments TSH, THIRD GENERATION (test code 2.470 UIU/ML = 2821) [id number] 00:00:00 Test Item Value Reference Range Interpretation Comments TSH, THIRD GENERATION (test code 2.470 UIU/ML = 2821) [id number] 00:00:00 Test Item Value Reference Range Interpretation Comments TSH, THIRD GENERATION (test code 2.470 UIU/ML = 2821) CBC W/AUTO [id number] 00:00:00 Test Item Value Reference Range Interpretation [...] NUCLEATED RBCS (test code = 0.00 K/UL 90480) CBC W/AUTO [id number] 00:00:00 Test Item Value Reference Range Interpretation [...] NUCLEATED RBCS (test code = 0.00 K/UL 32218) CBC W/AUTO [id number] 00:00:00 Test Item Value Reference Range Interpretation [...] NUCLEATED RBCS (test code = 0.00 K/UL 19001) COMPREHENSIVE METABOLIC [id number] 00:00:00 Test Item Value Reference Range Interpretation Comments GLUCOSE (test code = 2217) 188 MG/DL BUN (test code = 2208) 40 MG/DL CREATININE (test code = 2214) 1.36 MG/DL eGFR (2020 CKD-EPI) (test code 41 ML/MIN/1.73 = 32776) CALC BUN/CREAT (test code = 29 RATIO [...] code = 2219) 14 U/L COMPREHENSIVE METABOLIC [id number] 00:00:00 Test Item Value Reference Range Interpretation Comments GLUCOSE (test code = 2217) 188 MG/DL BUN (test code = 2208) 40 MG/DL CREATININE (test code = 2214) 1.36 MG/DL eGFR (2020 CKD-EPI) (test code 41 ML/MIN/1.73 = 29037) CALC BUN/CREAT (test code = 29 RATIO [...] ALT (test code = 2219) 14 U/L [id number] 00:00:00 Test Item Value Reference Range Interpretation Comments TSH, THIRD GENERATION (test code 2.470 UIU/ML = 2821) [id number] 00:00:00 Test Item Value Reference Range Interpretation Comments TSH, THIRD GENERATION (test code 2.470 UIU/ML = 2821) [id number] 00:00:00 Test Item Value Reference Range Interpretation Comments TSH, THIRD GENERATION (test code 2.470 UIU/ML = 2821) CBC W/AUTO DIFF WITH [id number] 04:35:16 Test Item Value Reference Range Interpretation [...] RBCS 0.00 K/UL 0.00-0.11 (test code = 54612) HEMOGLOBIN [id number] 04:23:29 Test Item Value Reference Range Interpretation Comments HEMOGLOBIN A1c (test 8.8 % 4.2-5.6 H [employer] DI[employer]ETES code = 72809) ASSOCIATION [employer] FOR HGB A1C: PREDIABETES/INC REASED [...] TESTING OR LABORATORY C ONSULTATION. COMPREHENSIVE METABOLIC [id number] 03:52:38 Test Item Value Reference Range Interpretation Comments GLUCOSE (test code = 166 MG/DL 70-99 H 2216) BUN (test code = 30 MG/DL 8-23 H 2207) CREATININE (test 1.31 MG/DL 0.60-1.30 H code = 2214) eGFR (2020 CKD-EPI) 43 >60 L (test code = 38573) ML/MIN/1.73 CALC BUN/CREAT (test 23 RATIO 6-28 code = 2235) SODIUM (test code = 140 MEQ/L 204-440 0307) POTASSIUM (test code 5.5 MEQ/L 3.5-5.4 H = 8) CHLORIDE (test code 104 MEQ/L 95-107 = [...] INDICATED, ALL TESTING PERFORM [facility], [address] DIRECTOR: KEN NEWMAN M.D. CLIA NUMBER [id number] CAP ACCREDITATION N O. [id number] HEMOGLOBIN [id number] 00:00:00 Test Item Value Reference Range Interpretation Comments HEMOGLOBIN A1c (test code = 31147) 8.8 % HEMOGLOBIN [id number] 00:00:00 Test Item Value Reference Range Interpretation Comments HEMOGLOBIN A1c (test code = 09961) 8.8 % HEMOGLOBIN [id number] 00:00:00 Test Item Value Reference Range Interpretation Comments HEMOGLOBIN A1c (test code = 74281) 8.8 % CBC W/AUTO [id number] 00:00:00 Test Item Value Reference Range Interpretation [...] NUCLEATED RBCS (test code = 0.00 K/UL 46043) CBC W/AUTO [id number] 00:00:00 Test Item Value Reference Range Interpretation [...] NUCLEATED RBCS (test code = 0.00 K/UL 18587) CBC W/AUTO [id number] 00:00:00 Test Item Value Reference Range Interpretation [...] NUCLEATED RBCS (test code = 0.00 K/UL 72579) COMPREHENSIVE METABOLIC [id number] 00:00:00 Test Item Value Reference Range Interpretation Comments GLUCOSE (test code = 2217) 166 MG/DL BUN (test code = 2208) 30 MG/DL CREATININE (test code = 2214) 1.31 MG/DL eGFR (2020 CKD-EPI) (test code 43 ML/MIN/1.73 = 62590) CALC BUN/CREAT (test code = 23 RATIO [...] code = 2219) 13 U/L COMPREHENSIVE METABOLIC [id number] 00:00:00 Test Item Value Reference Range Interpretation Comments GLUCOSE (test code = 2217) 166 MG/DL BUN (test code = 2208) 30 MG/DL CREATININE (test code = 2214) 1.31 MG/DL eGFR (2020 CKD-EPI) (test code 43 ML/MIN/1.73 = 33811) CALC BUN/CREAT (test code = 23 RATIO [...] (test code = 2219) 13 U/L HEMOGLOBIN [id number] 00:00:00 Test Item Value Reference Range Interpretation Comments HEMOGLOBIN A1c (test code = 40482) 8.8 % HEMOGLOBIN [id number] 00:00:00 Test Item Value Reference Range Interpretation Comments HEMOGLOBIN A1c (test code = 78711) 8.8 % HEMOGLOBIN [id number] 00:00:00 Test Item Value Reference Range Interpretation Comments HEMOGLOBIN A1c (test code = 63283) 8.8 % HEMOGLOBIN [id number] 00:00:00 Test Item Value Reference Range Interpretation Comments HEMOGLOBIN A1c (test code = 96829) 8.8 % HEMOGLOBIN [id number] 00:00:00 Test Item Value Reference Range Interpretation Comments HEMOGLOBIN A1c (test code = 63215) 8.8 % CBC W/AUTO [id number] 00:00:00 Test Item Value Reference Range Interpretation [...] NUCLEATED RBCS (test code = 0.00 K/UL 68619) CBC W/AUTO [id number] 00:00:00 Test Item Value Reference Range Interpretation [...] NUCLEATED RBCS (test code = 0.00 K/UL 54928) CBC W/AUTO [id number] 00:00:00 Test Item Value Reference Range Interpretation [...] NUCLEATED RBCS (test code = 0.00 K/UL 98764) CBC W/AUTO [id number] 00:00:00 Test Item Value Reference Range Interpretation [...] NUCLEATED RBCS (test code = 0.00 K/UL 64014) CBC W/AUTO [id number] 00:00:00 Test Item Value Reference Range Interpretation [...] NUCLEATED RBCS (test code = 0.00 K/UL 72087) COMPREHENSIVE METABOLIC [id number] 00:00:00 Test Item Value Reference Range Interpretation Comments GLUCOSE (test code = 2217) 166 MG/DL BUN (test code = 2208) 30 MG/DL CREATININE (test code = 2214) 1.31 MG/DL eGFR (2020 CKD-EPI) (test code 43 ML/MIN/1.73 = 29121) CALC BUN/CREAT (test code = 23 RATIO [...] = 0.4 MG/DL 2207) ALKALINE PHOSPHATASE (test 86 U/L code = 2204) AST (test code = 2218) 21 U/L ALT (test code = 2219) 13 U/L COMPREHENSIVE METABOLIC [id number] 00:00:00 Test Item Value Reference Range Interpretation Comments GLUCOSE (test code = 2217) 166 MG/DL BUN (test code = 2208) 30 MG/DL CREATININE (test code = 2214) 1.31 MG/DL eGFR (2020 CKD-EPI) (test code 43 ML/MIN/1.73 = 90635) CALC BUN/CREAT (test code = 23 RATIO [...] code = 2219) 13 U/L COMPREHENSIVE METABOLIC [id number] 00:00:00 Test Item Value Reference Range Interpretation Comments GLUCOSE (test code = 2217) 166 MG/DL BUN (test code = 2208) 30 MG/DL CREATININE (test code = 2214) 1.31 MG/DL eGFR (2020 CKD-EPI) (test code 43 ML/MIN/1.73 = 11767) CALC BUN/CREAT (test code = 23 RATIO [...] (test code = 2219) 13 U/L HEMOGLOBIN [id number] 00:00:00 Test Item Value Reference Range Interpretation Comments HEMOGLOBIN A1c (test code = 35863) 8.8 % HEMOGLOBIN [id number] 00:00:00 Test Item Value Reference Range Interpretation Comments HEMOGLOBIN A1c (test code = 12186) 8.8 % HEMOGLOBIN [id number] 00:00:00 Test Item Value Reference Range Interpretation Comments HEMOGLOBIN A1c (test code = 46288) 8.8 % CBC W/AUTO [id number] 00:00:00 Test Item Value Reference Range Interpretation [...] NUCLEATED RBCS (test code = 0.00 K/UL 85137) CBC W/AUTO [id number] 00:00:00 Test Item Value Reference Range Interpretation [...] NUCLEATED RBCS (test code = 0.00 K/UL 64757) CBC W/AUTO [id number] 00:00:00 Test Item Value Reference Range Interpretation [...] NUCLEATED RBCS (test code = 0.00 K/UL 80855) COMPREHENSIVE METABOLIC [id number] 00:00:00 Test Item Value Reference Range Interpretation Comments GLUCOSE (test code = 2217) 166 MG/DL BUN (test code = 2208) 30 MG/DL CREATININE (test code = 2214) 1.31 MG/DL eGFR (2020 CKD-EPI) (test code 43 ML/MIN/1.73 = 70252) CALC BUN/CREAT (test code = 23 RATIO [...] = 0.4 MG/DL 2207) ALKALINE PHOSPHATASE (test 86 U/L code = 2204) AST (test code = 2218) 21 U/L ALT (test code = 2219) 13 U/L COMPREHENSIVE METABOLIC [id number] 00:00:00 Test Item Value Reference Range Interpretation Comments GLUCOSE (test code = 2217) 166 MG/DL BUN (test code = 2208) 30 MG/DL CREATININE (test code = 2214) 1.31 MG/DL eGFR (2020 CKD-EPI) (test code 43 ML/MIN/1.73 = 29094) CALC BUN/CREAT (test code = 23 RATIO [...] (test code = 2219) 13 U/L HEMOGLOBIN [id number] 00:00:00 Test Item Value Reference Range Interpretation Comments HEMOGLOBIN A1c (test code = 22857) 8.8 % HEMOGLOBIN [id number] 00:00:00 Test Item Value Reference Range Interpretation Comments HEMOGLOBIN A1c (test code = 64596) 8.8 % HEMOGLOBIN [id number] 00:00:00 Test Item Value Reference Range Interpretation Comments HEMOGLOBIN A1c (test code = 92585) 8.8 % CBC W/AUTO [id number] 00:00:00 Test Item Value Reference Range Interpretation [...] NUCLEATED RBCS (test code = 0.00 K/UL 62441) CBC W/AUTO [id number] 00:00:00 Test Item Value Reference Range Interpretation [...] NUCLEATED RBCS (test code = 0.00 K/UL 46858) CBC W/AUTO [id number] 00:00:00 Test Item Value Reference Range Interpretation [...] NUCLEATED RBCS (test code = 0.00 K/UL 41876) COMPREHENSIVE METABOLIC [id number] 00:00:00 Test Item Value Reference Range Interpretation Comments GLUCOSE (test code = 2217) 166 MG/DL BUN (test code = 2208) 30 MG/DL CREATININE (test code = 2214) 1.31 MG/DL eGFR (2020 CKD-EPI) (test code 43 ML/MIN/1.73 = 58614) CALC BUN/CREAT (test code = 23 RATIO [...] code = 2219) 13 U/L COMPREHENSIVE METABOLIC [id number] 00:00:00 Test Item Value Reference Range Interpretation Comments GLUCOSE (test code = 2217) 166 MG/DL BUN (test code = 2208) 30 MG/DL CREATININE (test code = 2214) 1.31 MG/DL eGFR (2020 CKD-EPI) (test code 43 ML/MIN/1.73 = 08585) CALC BUN/CREAT (test code = 23 RATIO [...] (test code = 2219) 13 U/L HEMOGLOBIN [id number] 00:00:00 Test Item Value Reference Range Interpretation Comments HEMOGLOBIN A1c (test code = 63629) 8.8 % HEMOGLOBIN [id number] 00:00:00 Test Item Value Reference Range Interpretation Comments HEMOGLOBIN A1c (test code = 58252) 8.8 % CBC W/AUTO [id number] 00:00:00 Test Item Value Reference Range Interpretation [...] NUCLEATED RBCS (test code = 0.00 K/UL 82271) CBC W/AUTO [id number] 00:00:00 Test Item Value Reference Range Interpretation [...] NUCLEATED RBCS (test code = 0.00 K/UL 51351) COMPREHENSIVE METABOLIC [id number] 00:00:00 Test Item Value Reference Range Interpretation Comments GLUCOSE (test code = 2217) 166 MG/DL BUN (test code = 2208) 30 MG/DL CREATININE (test code = 2214) 1.31 MG/DL eGFR (2020 CKD-EPI) (test code 43 ML/MIN/1.73 = 75246) CALC BUN/CREAT (test code = 23 RATIO [...] (test code = 2219) 13 U/L HEMOGLOBIN [id number] 00:00:00 Test Item Value Reference Range Interpretation Comments HEMOGLOBIN A1c (test code = 67031) 8.8 % HEMOGLOBIN [id number] 00:00:00 Test Item Value Reference Range Interpretation Comments HEMOGLOBIN A1c (test code = 33325) 8.8 % HEMOGLOBIN [id number] 00:00:00 Test Item Value Reference Range Interpretation Comments HEMOGLOBIN A1c (test code = 74038) 8.8 % CBC W/AUTO [id number] 00:00:00 Test Item Value Reference Range Interpretation [...] NUCLEATED RBCS (test code = 0.00 K/UL 00217) CBC W/AUTO [id number] 00:00:00 Test Item Value Reference Range Interpretation [...] NUCLEATED RBCS (test code = 0.00 K/UL 01549) CBC W/AUTO [id number] 00:00:00 Test Item Value Reference Range Interpretation [...] NUCLEATED RBCS (test code = 0.00 K/UL 65396) COMPREHENSIVE METABOLIC [id number] 00:00:00 Test Item Value Reference Range Interpretation Comments GLUCOSE (test code = 2217) 166 MG/DL BUN (test code = 2208) 30 MG/DL CREATININE (test code = 2214) 1.31 MG/DL eGFR (2020 CKD-EPI) (test code 43 ML/MIN/1.73 = 01636) CALC BUN/CREAT (test code = 23 RATIO [...] code = 2219) 13 U/L COMPREHENSIVE METABOLIC [id number] 00:00:00 Test Item Value Reference Range Interpretation Comments GLUCOSE (test code = 2217) 166 MG/DL BUN (test code = 2208) 30 MG/DL CREATININE (test code = 2214) 1.31 MG/DL eGFR (2020 CKD-EPI) (test code 43 ML/MIN/1.73 = 64657) CALC BUN/CREAT (test code = 23 RATIO [...] (test code = 2219) 13 U/L HEMOGLOBIN [id number] 00:00:00 Test Item Value Reference Range Interpretation Comments HEMOGLOBIN A1c (test code = 54083) 8.8 % HEMOGLOBIN [id number] 00:00:00 Test Item Value Reference Range Interpretation Comments HEMOGLOBIN A1c (test code = 40492) 8.8 % HEMOGLOBIN [id number] 00:00:00 Test Item Value Reference Range Interpretation Comments HEMOGLOBIN A1c (test code = 50130) 8.8 % CBC W/AUTO [id number] 00:00:00 Test Item Value Reference Range Interpretation [...] NUCLEATED RBCS (test code = 0.00 K/UL 37164) CBC W/AUTO [id number] 00:00:00 Test Item Value Reference Range Interpretation [...] NUCLEATED RBCS (test code = 0.00 K/UL 27533) CBC W/AUTO [id number] 00:00:00 Test Item Value Reference Range Interpretation [...] NUCLEATED RBCS (test code = 0.00 K/UL 55386) COMPREHENSIVE METABOLIC [id number] 00:00:00 Test Item Value Reference Range Interpretation Comments GLUCOSE (test code = 2217) 166 MG/DL BUN (test code = 2208) 30 MG/DL CREATININE (test code = 2214) 1.31 MG/DL eGFR (2020 CKD-EPI) (test code 43 ML/MIN/1.73 = 17140) CALC BUN/CREAT (test code = 23 RATIO [...] code = 2219) 13 U/L COMPREHENSIVE METABOLIC [id number] 00:00:00 Test Item Value Reference Range Interpretation Comments GLUCOSE (test code = 2217) 166 MG/DL BUN (test code = 2208) 30 MG/DL CREATININE (test code = 2214) 1.31 MG/DL eGFR (2020 CKD-EPI) (test code 43 ML/MIN/1.73 = 73762) CALC BUN/CREAT (test code = 23 RATIO [...] (test code = 2219) 13 U/L LIPID [id number] 00:00:00 Test Item Value Reference Range Interpretation Comments CHOLESTEROL (test code = 2210) 229 MG/DL TRIGLYCERIDES (test code = 2232) 246 MG/DL HDL CHOLESTEROL (test code = 2220) 48 MG/DL CALC LDL CHOL (test code = 2237) 141 MG/DL RISK RATIO LDL/HDL (test code = 2.94 RATIO 2238) LIPID [id number] 00:00:00 Test Item Value Reference Range Interpretation Comments CHOLESTEROL (test code = 2210) 229 MG/DL TRIGLYCERIDES (test code = 2232) 246 MG/DL HDL CHOLESTEROL (test code = 2220) 48 MG/DL CALC LDL CHOL (test code = 2237) 141 MG/DL RISK RATIO LDL/HDL (test code = 2.94 RATIO 2238) CBC W/AUTO [id number] 00:00:00 Test Item Value Reference Range Interpretation [...] NUCLEATED RBCS (test code = 0.00 K/UL 43434) CBC W/AUTO [id number] 00:00:00 Test Item Value Reference Range Interpretation [...] NUCLEATED RBCS (test code = 0.00 K/UL 96775) CBC W/AUTO [id number] 00:00:00 Test Item Value Reference Range Interpretation [...] NUCLEATED RBCS (test code = 0.00 K/UL 49404) HEMOGLOBIN [id number] 00:00:00 Test Item Value Reference Range Interpretation Comments HEMOGLOBIN A1c (test code = 89975) 9.1 % HEMOGLOBIN [id number] 00:00:00 Test Item Value Reference Range Interpretation Comments HEMOGLOBIN A1c (test code = 95731) 9.1 % HEMOGLOBIN [id number] 00:00:00 Test Item Value Reference Range Interpretation Comments HEMOGLOBIN A1c (test code = 27840) 9.1 % MICROALBUMIN/CREATININE, RANDOM AND [id number] 00:00:00 Test Item Value Reference Range Interpretation Comments CREATININE, URINE, CONC. (test 108.6 MG/DL code = 2072) ALBUMIN, URINE, RANDOM (test code 29.0 MG/DL = 64111) CALC ALBUMIN/CREAT, RND (test 267 MG/G code = 63585) MICROALBUMIN/CREATININE, RANDOM AND [id number] 00:00:00 Test Item Value Reference Range Interpretation Comments CREATININE, URINE, CONC. (test 108.6 MG/DL code = 2072) ALBUMIN, URINE, RANDOM (test code 29.0 MG/DL = 71339) CALC ALBUMIN/CREAT, RND (test 267 MG/G code = 54610) INTACT [id number] 00:00:00 Test Item Value Reference Range Interpretation Comments INTACT PTH (test code = 5005) 85 PG/ML INTACT [id number] 00:00:00 Test Item Value Reference Range Interpretation Comments INTACT PTH (test code = 5005) 85 PG/ML INTACT [id number] 00:00:00 Test Item Value Reference Range Interpretation Comments INTACT PTH (test code = 5005) 85 PG/ML LIPID [id number] 00:00:00 Test Item Value Reference Range Interpretation Comments CHOLESTEROL (test code = 2210) 229 MG/DL TRIGLYCERIDES (test code = 2232) 246 MG/DL HDL CHOLESTEROL (test code = 2220) 48 MG/DL CALC LDL CHOL (test code = 2237) 141 MG/DL RISK RATIO LDL/HDL (test code = 2.94 RATIO 2238) LIPID [id number] 00:00:00 Test Item Value Reference Range Interpretation Comments CHOLESTEROL (test code = 2210) 229 MG/DL TRIGLYCERIDES (test code = 2232) 246 MG/DL HDL CHOLESTEROL (test code = 2220) 48 MG/DL CALC LDL CHOL (test code = 2237) 141 MG/DL RISK RATIO LDL/HDL (test code = 2.94 RATIO 2238) LIPID [id number] 00:00:00 Test Item Value Reference Range Interpretation Comments CHOLESTEROL (test code = 2210) 229 MG/DL TRIGLYCERIDES (test code = 2232) 246 MG/DL HDL CHOLESTEROL (test code = 2220) 48 MG/DL CALC LDL CHOL (test code = 2237) 141 MG/DL RISK RATIO LDL/HDL (test code = 2.94 RATIO 2238) CBC W/AUTO [id number] 00:00:00 Test Item Value Reference Range Interpretation [...] NUCLEATED RBCS (test code = 0.00 K/UL 37217) CBC W/AUTO [id number] 00:00:00 Test Item Value Reference Range Interpretation [...] NUCLEATED RBCS (test code = 0.00 K/UL 60733) CBC W/AUTO [id number] 00:00:00 Test Item Value Reference Range Interpretation [...] NUCLEATED RBCS (test code = 0.00 K/UL 77934) HEMOGLOBIN [id number] 00:00:00 Test Item Value Reference Range Interpretation Comments HEMOGLOBIN A1c (test code = 59846) 9.1 % HEMOGLOBIN [id number] 00:00:00 Test Item Value Reference Range Interpretation Comments HEMOGLOBIN A1c (test code = 72913) 9.1 % HEMOGLOBIN [id number] 00:00:00 Test Item Value Reference Range Interpretation Comments HEMOGLOBIN A1c (test code = 69751) 9.1 % MICROALBUMIN/CREATININE, RANDOM AND [id number] 00:00:00 Test Item Value Reference Range Interpretation Comments CREATININE, URINE, CONC. (test 108.6 MG/DL code = 2072) ALBUMIN, URINE, RANDOM (test code 29.0 MG/DL = 45201) CALC ALBUMIN/CREAT, RND (test 267 MG/G code = 35132) MICROALBUMIN/CREATININE, RANDOM AND [id number] 00:00:00 Test Item Value Reference Range Interpretation Comments CREATININE, URINE, CONC. (test 108.6 MG/DL code = 2072) ALBUMIN, URINE, RANDOM (test code 29.0 MG/DL = 79417) CALC ALBUMIN/CREAT, RND (test 267 MG/G code = 55939) INTACT [id number] 00:00:00 Test Item Value Reference Range Interpretation Comments INTACT PTH (test code = 5005) 85 PG/ML INTACT [id number] 00:00:00 Test Item Value Reference Range Interpretation Comments INTACT PTH (test code = 5005) 85 PG/ML INTACT [id number] 00:00:00 Test Item Value Reference Range Interpretation Comments INTACT PTH (test code = 5005) 85 PG/ML CBC W/AUTO [id number] 00:00:00 Test Item Value Reference Range Interpretation [...] NUCLEATED RBCS (test code = 0.00 K/UL 92975) CBC W/AUTO [id number] 00:00:00 Test Item Value Reference Range Interpretation [...] NUCLEATED RBCS (test code = 0.00 K/UL 06936) HEMOGLOBIN [id number] 00:00:00 Test Item Value Reference Range Interpretation Comments HEMOGLOBIN A1c (test code = 74355) 9.1 % HEMOGLOBIN [id number] 00:00:00 Test Item Value Reference Range Interpretation Comments HEMOGLOBIN A1c (test code = 59131) 9.1 % LIPID [id number] 00:00:00 Test Item Value Reference Range Interpretation Comments CHOLESTEROL (test code = 2210) 229 MG/DL TRIGLYCERIDES (test code = 2232) 246 MG/DL HDL CHOLESTEROL (test code = 2220) 48 MG/DL CALC LDL CHOL (test code = 2237) 141 MG/DL RISK RATIO LDL/HDL (test code = 2.94 RATIO 2238) MICROALBUMIN/CREATININE, RANDOM AND [id number] 00:00:00 Test Item Value Reference Range Interpretation Comments CREATININE, URINE, CONC. (test 108.6 MG/DL code = 2072) ALBUMIN, URINE, RANDOM (test code 29.0 MG/DL = 31563) CALC ALBUMIN/CREAT, RND (test 267 MG/G code = 60911) LIPID [id number] 00:00:00 Test Item Value Reference Range Interpretation Comments CHOLESTEROL (test code = 2210) 229 MG/DL TRIGLYCERIDES (test code = 2232) 246 MG/DL HDL CHOLESTEROL (test code = 2220) 48 MG/DL CALC LDL CHOL (test code = 2237) 141 MG/DL RISK RATIO LDL/HDL (test code = 2.94 RATIO 2238) CBC W/AUTO [id number] 00:00:00 Test Item Value Reference Range Interpretation [...] NUCLEATED RBCS (test code = 0.00 K/UL 09303) CBC W/AUTO [id number] 00:00:00 Test Item Value Reference Range Interpretation [...] NUCLEATED RBCS (test code = 0.00 K/UL 71724) CBC W/AUTO [id number] 00:00:00 Test Item Value Reference Range Interpretation [...] NUCLEATED RBCS (test code = 0.00 K/UL 39611) HEMOGLOBIN [id number] 00:00:00 Test Item Value Reference Range Interpretation Comments HEMOGLOBIN A1c (test code = 46362) 9.1 % HEMOGLOBIN [id number] 00:00:00 Test Item Value Reference Range Interpretation Comments HEMOGLOBIN A1c (test code = 15009) 9.1 % HEMOGLOBIN [id number] 00:00:00 Test Item Value Reference Range Interpretation Comments HEMOGLOBIN A1c (test code = 16009) 9.1 % MICROALBUMIN/CREATININE, RANDOM AND [id number] 00:00:00 Test Item Value Reference Range Interpretation Comments CREATININE, URINE, CONC. (test 108.6 MG/DL code = 2072) ALBUMIN, URINE, RANDOM (test code 29.0 MG/DL = 88700) CALC ALBUMIN/CREAT, RND (test 267 MG/G code = 40441) MICROALBUMIN/CREATININE, RANDOM AND [id number] 00:00:00 Test Item Value Reference Range Interpretation Comments CREATININE, URINE, CONC. (test 108.6 MG/DL code = 2072) ALBUMIN, URINE, RANDOM (test code 29.0 MG/DL = 32646) CALC ALBUMIN/CREAT, RND (test 267 MG/G code = 50018) INTACT [id number] 00:00:00 Test Item Value Reference Range Interpretation Comments INTACT PTH (test code = 5005) 85 PG/ML INTACT [id number] 00:00:00 Test Item Value Reference Range Interpretation Comments INTACT PTH (test code = 5005) 85 PG/ML INTACT [id number] 00:00:00 Test Item Value Reference Range Interpretation Comments INTACT PTH (test code = 5005) 85 PG/ML INTACT [id number] 00:00:00 Test Item Value Reference Range Interpretation Comments INTACT PTH (test code = 5005) 85 PG/ML INTACT [id number] 00:00:00 Test Item Value Reference Range Interpretation Comments INTACT PTH (test code = 5005) 85 PG/ML LIPID [id number] 00:00:00 Test Item Value Reference Range Interpretation Comments CHOLESTEROL (test code = 2210) 229 MG/DL TRIGLYCERIDES (test code = 2232) 246 MG/DL HDL CHOLESTEROL (test code = 2220) 48 MG/DL CALC LDL CHOL (test code = 2237) 141 MG/DL RISK RATIO LDL/HDL (test code = 2.94 RATIO 2238) LIPID [id number] 00:00:00 Test Item Value Reference Range Interpretation Comments CHOLESTEROL (test code = 2210) 229 MG/DL TRIGLYCERIDES (test code = 2232) 246 MG/DL HDL CHOLESTEROL (test code = 2220) 48 MG/DL CALC LDL CHOL (test code = 2237) 141 MG/DL RISK RATIO LDL/HDL (test code = 2.94 RATIO 2238) CBC W/AUTO [id number] 00:00:00 Test Item Value Reference Range Interpretation [...] NUCLEATED RBCS (test code = 0.00 K/UL 43543) CBC W/AUTO [id number] 00:00:00 Test Item Value Reference Range Interpretation [...] NUCLEATED RBCS (test code = 0.00 K/UL 47874) CBC W/AUTO [id number] 00:00:00 Test Item Value Reference Range Interpretation [...] NUCLEATED RBCS (test code = 0.00 K/UL 45586) HEMOGLOBIN [id number] 00:00:00 Test Item Value Reference Range Interpretation Comments HEMOGLOBIN A1c (test code = 39299) 9.1 % HEMOGLOBIN [id number] 00:00:00 Test Item Value Reference Range Interpretation Comments HEMOGLOBIN A1c (test code = 31714) 9.1 % HEMOGLOBIN [id number] 00:00:00 Test Item Value Reference Range Interpretation Comments HEMOGLOBIN A1c (test code = 31817) 9.1 % MICROALBUMIN/CREATININE, RANDOM AND [id number] 00:00:00 Test Item Value Reference Range Interpretation Comments CREATININE, URINE, CONC. (test 108.6 MG/DL code = 2072) ALBUMIN, URINE, RANDOM (test code 29.0 MG/DL = 04347) CALC ALBUMIN/CREAT, RND (test 267 MG/G code = 93482) MICROALBUMIN/CREATININE, RANDOM AND [id number] 00:00:00 Test Item Value Reference Range Interpretation Comments CREATININE, URINE, CONC. (test 108.6 MG/DL code = 2072) ALBUMIN, URINE, RANDOM (test code 29.0 MG/DL = 69671) CALC ALBUMIN/CREAT, RND (test 267 MG/G code = 20937) INTACT [id number] 00:00:00 Test Item Value Reference Range Interpretation Comments INTACT PTH (test code = 5005) 85 PG/ML INTACT [id number] 00:00:00 Test Item Value Reference Range Interpretation Comments INTACT PTH (test code = 5005) 85 PG/ML INTACT [id number] 00:00:00 Test Item Value Reference Range Interpretation Comments INTACT PTH (test code = 5005) 85 PG/ML LIPID [id number] 00:00:00 Test Item Value Reference Range Interpretation Comments CHOLESTEROL (test code = 2210) 229 MG/DL TRIGLYCERIDES (test code = 2232) 246 MG/DL HDL CHOLESTEROL (test code = 2220) 48 MG/DL CALC LDL CHOL (test code = 2237) 141 MG/DL RISK RATIO LDL/HDL (test code = 2.94 RATIO 2238) CBC W/AUTO [id number] 00:00:00 Test Item Value Reference Range Interpretation [...] NUCLEATED RBCS (test code = 0.00 K/UL 19466) CBC W/AUTO [id number] 00:00:00 Test Item Value Reference Range Interpretation [...] NUCLEATED RBCS (test code = 0.00 K/UL 83505) HEMOGLOBIN [id number] 00:00:00 Test Item Value Reference Range Interpretation Comments HEMOGLOBIN A1c (test code = 34093) 9.1 % HEMOGLOBIN [id number] 00:00:00 Test Item Value Reference Range Interpretation Comments HEMOGLOBIN A1c (test code = 86665) 9.1 % MICROALBUMIN/CREATININE, RANDOM AND [id number] 00:00:00 Test Item Value Reference Range Interpretation Comments CREATININE, URINE, CONC. (test 108.6 MG/DL code = 2072) ALBUMIN, URINE, RANDOM (test code 29.0 MG/DL = 09491) CALC ALBUMIN/CREAT, RND (test 267 MG/G code = 48720) INTACT [id number] 00:00:00 Test Item Value Reference Range Interpretation Comments INTACT PTH (test code = 5005) 85 PG/ML INTACT [id number] 00:00:00 Test Item Value Reference Range Interpretation Comments INTACT PTH (test code = 5005) 85 PG/ML LIPID [id number] 00:00:00 Test Item Value Reference Range Interpretation Comments CHOLESTEROL (test code = 2210) 229 MG/DL TRIGLYCERIDES (test code = 2232) 246 MG/DL HDL CHOLESTEROL (test code = 2220) 48 MG/DL CALC LDL CHOL (test code = 2237) 141 MG/DL RISK RATIO LDL/HDL (test code = 2.94 RATIO 2238) LIPID [id number] 00:00:00 Test Item Value Reference Range Interpretation Comments CHOLESTEROL (test code = 2210) 229 MG/DL TRIGLYCERIDES (test code = 2232) 246 MG/DL HDL CHOLESTEROL (test code = 2220) 48 MG/DL CALC LDL CHOL (test code = 2237) 141 MG/DL RISK RATIO LDL/HDL (test code = 2.94 RATIO 2238) CBC W/AUTO [id number] 00:00:00 Test Item Value Reference Range Interpretation [...] NUCLEATED RBCS (test code = 0.00 K/UL 59535) CBC W/AUTO [id number] 00:00:00 Test Item Value Reference Range Interpretation [...] NUCLEATED RBCS (test code = 0.00 K/UL 75148) CBC W/AUTO [id number] 00:00:00 Test Item Value Reference Range Interpretation [...] NUCLEATED RBCS (test code = 0.00 K/UL 52768) HEMOGLOBIN [id number] 00:00:00 Test Item Value Reference Range Interpretation Comments HEMOGLOBIN A1c (test code = 50143) 9.1 % HEMOGLOBIN [id number] 00:00:00 Test Item Value Reference Range Interpretation Comments HEMOGLOBIN A1c (test code = 18463) 9.1 % HEMOGLOBIN [id number] 00:00:00 Test Item Value Reference Range Interpretation Comments HEMOGLOBIN A1c (test code = 03787) 9.1 % MICROALBUMIN/CREATININE, RANDOM AND [id number] 00:00:00 Test Item Value Reference Range Interpretation Comments CREATININE, URINE, CONC. (test 108.6 MG/DL code = 2072) ALBUMIN, URINE, RANDOM (test code 29.0 MG/DL = 48857) CALC ALBUMIN/CREAT, RND (test 267 MG/G code = 61631) MICROALBUMIN/CREATININE, RANDOM AND [id number] 00:00:00 Test Item Value Reference Range Interpretation Comments CREATININE, URINE, CONC. (test 108.6 MG/DL code = 2072) ALBUMIN, URINE, RANDOM (test code 29.0 MG/DL = 44380) CALC ALBUMIN/CREAT, RND (test 267 MG/G code = 44857) INTACT [id number] 00:00:00 Test Item Value Reference Range Interpretation Comments INTACT PTH (test code = 5005) 85 PG/ML INTACT [id number] 00:00:00 Test Item Value Reference Range Interpretation Comments INTACT PTH (test code = 5005) 85 PG/ML INTACT [id number] 00:00:00 Test Item Value Reference Range Interpretation Comments INTACT PTH (test code = 5005) 85 PG/ML LIPID [id number] 00:00:00 Test Item Value Reference Range Interpretation Comments CHOLESTEROL (test code = 2210) 229 MG/DL TRIGLYCERIDES (test code = 2232) 246 MG/DL HDL CHOLESTEROL (test code = 2220) 48 MG/DL CALC LDL CHOL (test code = 2237) 141 MG/DL RISK RATIO LDL/HDL (test code = 2.94 RATIO 2238) LIPID [id number] 00:00:00 Test Item Value Reference Range Interpretation Comments CHOLESTEROL (test code = 2210) 229 MG/DL TRIGLYCERIDES (test code = 2232) 246 MG/DL HDL CHOLESTEROL (test code = 2220) 48 MG/DL CALC LDL CHOL (test code = 2237) 141 MG/DL RISK RATIO LDL/HDL (test code = 2.94 RATIO 2238) CBC W/AUTO [id number] 00:00:00 Test Item Value Reference Range Interpretation [...] NUCLEATED RBCS (test code = 0.00 K/UL 49830) CBC W/AUTO [id number] 00:00:00 Test Item Value Reference Range Interpretation [...] NUCLEATED RBCS (test code = 0.00 K/UL 66638) CBC W/AUTO [id number] 00:00:00 Test Item Value Reference Range Interpretation [...] NUCLEATED RBCS (test code = 0.00 K/UL 90915) HEMOGLOBIN [id number] 00:00:00 Test Item Value Reference Range Interpretation Comments HEMOGLOBIN A1c (test code = 73216) 9.1 % HEMOGLOBIN [id number] 00:00:00 Test Item Value Reference Range Interpretation Comments HEMOGLOBIN A1c (test code = 95570) 9.1 % HEMOGLOBIN [id number] 00:00:00 Test Item Value Reference Range Interpretation Comments HEMOGLOBIN A1c (test code = 71799) 9.1 % MICROALBUMIN/CREATININE, RANDOM AND [id number] 00:00:00 Test Item Value Reference Range Interpretation Comments CREATININE, URINE, CONC. (test 108.6 MG/DL code = 2072) ALBUMIN, URINE, RANDOM (test code 29.0 MG/DL = 33573) CALC ALBUMIN/CREAT, RND (test 267 MG/G code = 57968) MICROALBUMIN/CREATININE, RANDOM AND [id number] 00:00:00 Test Item Value Reference Range Interpretation Comments CREATININE, URINE, CONC. (test 108.6 MG/DL code = 2072) ALBUMIN, URINE, RANDOM (test code 29.0 MG/DL = 94179) CALC ALBUMIN/CREAT, RND (test 267 MG/G code = 80980) INTACT [id number] 00:00:00 Test Item Value Reference Range Interpretation Comments INTACT PTH (test code = 5005) 85 PG/ML INTACT [id number] 00:00:00 Test Item Value Reference Range Interpretation Comments INTACT PTH (test code = 5005) 85 PG/ML INTACT [id number] 00:00:00 Test Item Value Reference Range Interpretation Comments INTACT PTH (test code = 5005) 85 PG/ML CULTURE, [id number] 00:00:00 Test Item Value Reference Range Interpretation Comments CULTURE, ROUTINE (test SPECIMEN NUMBER: code = 50997) [id number] CULTURE, [id number] 00:00:00 Test Item Value Reference Range Interpretation Comments CULTURE, ROUTINE (test SPECIMEN NUMBER: code = 39247) [id number] CULTURE, [id number] 00:00:00 Test Item Value Reference Range Interpretation Comments CULTURE, ROUTINE (test SPECIMEN NUMBER: code = 92930) [id number] CULTURE, [id number] 00:00:00 Test Item Value Reference Range Interpretation Comments CULTURE, ROUTINE (test SPECIMEN NUMBER: code = 35888) [id number] CULTURE, [id number] 00:00:00 Test Item Value Reference Range Interpretation Comments CULTURE, ROUTINE (test SPECIMEN NUMBER: code = 63694) [id number] CULTURE, [id number] 00:00:00 Test Item Value Reference Range Interpretation Comments CULTURE, ROUTINE (test SPECIMEN NUMBER: code = 98269) [id number] CULTURE, [id number] 00:00:00 Test Item Value Reference Range Interpretation Comments CULTURE, ROUTINE (test SPECIMEN NUMBER: code = 34955) [id number] CULTURE, [id number] 00:00:00 Test Item Value Reference Range Interpretation Comments CULTURE, ROUTINE (test SPECIMEN NUMBER: code = 80395) [id number] CULTURE, [id number] 00:00:00 Test Item Value Reference Range Interpretation Comments CULTURE, ROUTINE (test SPECIMEN NUMBER: code = 59409) [id number] CULTURE, [id number] 00:00:00 Test Item Value Reference Range Interpretation Comments CULTURE, ROUTINE (test SPECIMEN NUMBER: code = 94808) [id number] CULTURE, [id number] 00:00:00 Test Item Value Reference Range Interpretation Comments CULTURE, ROUTINE (test SPECIMEN NUMBER: code = 85304) [id number] CULTURE, [id number] 00:00:00 Test Item Value Reference Range Interpretation Comments CULTURE, ROUTINE (test SPECIMEN NUMBER: code = 48603) [id number] CULTURE, [id number] 00:00:00 Test Item Value Reference Range Interpretation Comments CULTURE, ROUTINE (test SPECIMEN NUMBER: code = 13494) [id number] CULTURE, [id number] 00:00:00 Test Item Value Reference Range Interpretation Comments CULTURE, ROUTINE (test SPECIMEN NUMBER: code = 89589) [id number] CULTURE, [id number] 00:00:00 Test Item Value Reference Range Interpretation Comments CULTURE, ROUTINE (test SPECIMEN NUMBER: code = 26966) [id number] CULTURE, [id number] 00:00:00 Test Item Value Reference Range Interpretation Comments CULTURE, ROUTINE (test SPECIMEN NUMBER: code = 03574) [id number] CULTURE, [id number] 00:00:00 Test Item Value Reference Range Interpretation Comments CULTURE, ROUTINE (test SPECIMEN NUMBER: code = 22668) [id number] CULTURE, [id number] 00:00:00 Test Item Value Reference Range Interpretation Comments CULTURE, ROUTINE (test SPECIMEN NUMBER: code = 30001) [id number] CULTURE, [id number] 00:00:00 Test Item Value Reference Range Interpretation Comments CULTURE, ROUTINE (test SPECIMEN NUMBER: code = 63160) [id number] CULTURE, [id number] 00:00:00 Test Item Value Reference Range Interpretation Comments CULTURE, ROUTINE (test SPECIMEN NUMBER: code = 96788) [id number] CULTURE, [id number] 00:00:00 Test Item Value Reference Range Interpretation Comments CULTURE, ROUTINE (test SPECIMEN NUMBER: code = 84813) [id number] CULTURE, [id number] 00:00:00 Test Item Value Reference Range Interpretation Comments CULTURE, ROUTINE (test SPECIMEN NUMBER: code = 76198) [id number] COMPREHENSIVE METABOLIC [id number] 00:00:00 Test Item Value Reference Range Interpretation Comments GLUCOSE (test code = 2217) 222 MG/DL BUN (test code = 2208) 27 MG/DL CREATININE (test code = 2214) 1.05 MG/DL eGFR AMER. (test code 61 ML/MIN/1.73 = 99524) eGFR NON- AMER. (test 53 ML/MIN/1.73 code = 08514) CALC BUN/CREAT (test code = 26 RATIO [...] code = 2219) 11 U/L COMPREHENSIVE METABOLIC [id number] 00:00:00 Test Item Value Reference Range Interpretation Comments GLUCOSE (test code = 2217) 222 MG/DL BUN (test code = 2208) 27 MG/DL CREATININE (test code = 2214) 1.05 MG/DL eGFR AMER. (test code 61 ML/MIN/1.73 = 23775) eGFR NON- AMER. (test 53 ML/MIN/1.73 code = 08724) CALC BUN/CREAT (test code = 26 RATIO [...] (test code = 2219) 11 U/L LIPID [id number] 00:00:00 Test Item Value Reference Range Interpretation Comments CHOLESTEROL (test code = 2210) 230 MG/DL TRIGLYCERIDES (test code = 2232) 414 MG/DL HDL CHOLESTEROL (test code = 51 MG/DL 2220) CALC LDL CHOL (test code = 2237) (NOTE) MG/DL RISK RATIO LDL/HDL (test code = (NOTE) RATIO 2238) LIPID [id number] 00:00:00 Test Item Value Reference Range Interpretation Comments CHOLESTEROL (test code = 2210) 230 MG/DL TRIGLYCERIDES (test code = 2232) 414 MG/DL HDL CHOLESTEROL (test code = 51 MG/DL 2220) CALC LDL CHOL (test code = 2237) (NOTE) MG/DL RISK RATIO LDL/HDL (test code = (NOTE) RATIO 2238) HEMOGLOBIN [id number] 00:00:00 Test Item Value Reference Range Interpretation Comments HEMOGLOBIN A1c (test code = 75250) 8.7 % HEMOGLOBIN [id number] 00:00:00 Test Item Value Reference Range Interpretation Comments HEMOGLOBIN A1c (test code = 06197) 8.7 % HEMOGLOBIN [id number] 00:00:00 Test Item Value Reference Range Interpretation Comments HEMOGLOBIN A1c (test code = 18050) 8.7 % COMPREHENSIVE METABOLIC [id number] 00:00:00 Test Item Value Reference Range Interpretation Comments GLUCOSE (test code = 2217) 222 MG/DL BUN (test code = 2208) 27 MG/DL CREATININE (test code = 2214) 1.05 MG/DL eGFR AMER. (test code 61 ML/MIN/1.73 = 86928) eGFR NON- AMER. (test 53 ML/MIN/1.73 code = 16199) CALC BUN/CREAT (test code = 26 RATIO [...] code = 2219) 11 U/L COMPREHENSIVE METABOLIC [id number] 00:00:00 Test Item Value Reference Range Interpretation Comments GLUCOSE (test code = 2217) 222 MG/DL BUN (test code = 2208) 27 MG/DL CREATININE (test code = 2214) 1.05 MG/DL eGFR AMER. (test code 61 ML/MIN/1.73 = 24978) eGFR NON- AMER. (test 53 ML/MIN/1.73 code = 26523) CALC BUN/CREAT (test code = 26 RATIO [...] code = 2219) 11 U/L COMPREHENSIVE METABOLIC [id number] 00:00:00 Test Item Value Reference Range Interpretation Comments GLUCOSE (test code = 2217) 222 MG/DL BUN (test code = 2208) 27 MG/DL CREATININE (test code = 2214) 1.05 MG/DL eGFR AMER. (test code 61 ML/MIN/1.73 = 01145) eGFR NON- AMER. (test 53 ML/MIN/1.73 code = 74435) CALC BUN/CREAT (test code = 26 RATIO [...] (test code = 2219) 11 U/L LIPID [id number] 00:00:00 Test Item Value Reference Range Interpretation Comments CHOLESTEROL (test code = 2210) 230 MG/DL TRIGLYCERIDES (test code = 2232) 414 MG/DL HDL CHOLESTEROL (test code = 51 MG/DL 2220) CALC LDL CHOL (test code = 2237) (NOTE) MG/DL RISK RATIO LDL/HDL (test code = (NOTE) RATIO 2238) LIPID [id number] 00:00:00 Test Item Value Reference Range Interpretation Comments CHOLESTEROL (test code = 2210) 230 MG/DL TRIGLYCERIDES (test code = 2232) 414 MG/DL HDL CHOLESTEROL (test code = 51 MG/DL 2220) CALC LDL CHOL (test code = 2237) (NOTE) MG/DL RISK RATIO LDL/HDL (test code = (NOTE) RATIO 2238) HEMOGLOBIN [id number] 00:00:00 Test Item Value Reference Range Interpretation Comments HEMOGLOBIN A1c (test code = 35396) 8.7 % LIPID [id number] 00:00:00 Test Item Value Reference Range Interpretation Comments CHOLESTEROL (test code = 2210) 230 MG/DL TRIGLYCERIDES (test code = 2232) 414 MG/DL HDL CHOLESTEROL (test code = 51 MG/DL 2220) CALC LDL CHOL (test code = 2237) (NOTE) MG/DL RISK RATIO LDL/HDL (test code = (NOTE) RATIO 2238) HEMOGLOBIN [id number] 00:00:00 Test Item Value Reference Range Interpretation Comments HEMOGLOBIN A1c (test code = 51603) 8.7 % HEMOGLOBIN [id number] 00:00:00 Test Item Value Reference Range Interpretation Comments HEMOGLOBIN A1c (test code = 38637) 8.7 % HEMOGLOBIN [id number] 00:00:00 Test Item Value Reference Range Interpretation Comments HEMOGLOBIN A1c (test code = 17504) 8.7 % HEMOGLOBIN [id number] 00:00:00 Test Item Value Reference Range Interpretation Comments HEMOGLOBIN A1c (test code = 75934) 8.7 % COMPREHENSIVE METABOLIC [id number] 00:00:00 Test Item Value Reference Range Interpretation Comments GLUCOSE (test code = 2217) 222 MG/DL BUN (test code = 2208) 27 MG/DL CREATININE (test code = 2214) 1.05 MG/DL eGFR AMER. (test code 61 ML/MIN/1.73 = 13714) eGFR NON- AMER. (test 53 ML/MIN/1.73 code = 82887) CALC BUN/CREAT (test code = 26 RATIO [...] code = 2219) 11 U/L COMPREHENSIVE METABOLIC [id number] 00:00:00 Test Item Value Reference Range Interpretation Comments GLUCOSE (test code = 2217) 222 MG/DL BUN (test code = 2208) 27 MG/DL CREATININE (test code = 2214) 1.05 MG/DL eGFR AMER. (test code 61 ML/MIN/1.73 = 03396) eGFR NON- AMER. (test 53 ML/MIN/1.73 code = 19351) CALC BUN/CREAT (test code = 26 RATIO [...] (test code = 2219) 11 U/L LIPID [id number] 00:00:00 Test Item Value Reference Range Interpretation Comments CHOLESTEROL (test code = 2210) 230 MG/DL TRIGLYCERIDES (test code = 2232) 414 MG/DL HDL CHOLESTEROL (test code = 51 MG/DL 2220) CALC LDL CHOL (test code = 2237) (NOTE) MG/DL RISK RATIO LDL/HDL (test code = (NOTE) RATIO 2238) LIPID [id number] 00:00:00 Test Item Value Reference Range Interpretation Comments CHOLESTEROL (test code = 2210) 230 MG/DL TRIGLYCERIDES (test code = 2232) 414 MG/DL HDL CHOLESTEROL (test code = 51 MG/DL 2220) CALC LDL CHOL (test code = 2237) (NOTE) MG/DL RISK RATIO LDL/HDL (test code = (NOTE) RATIO 2238) HEMOGLOBIN [id number] 00:00:00 Test Item Value Reference Range Interpretation Comments HEMOGLOBIN A1c (test code = 78956) 8.7 % HEMOGLOBIN [id number] 00:00:00 Test Item Value Reference Range Interpretation Comments HEMOGLOBIN A1c (test code = 40292) 8.7 % HEMOGLOBIN [id number] 00:00:00 Test Item Value Reference Range Interpretation Comments HEMOGLOBIN A1c (test code = 48909) 8.7 % COMPREHENSIVE METABOLIC [id number] 00:00:00 Test Item Value Reference Range Interpretation Comments GLUCOSE (test code = 2217) 222 MG/DL BUN (test code = 2208) 27 MG/DL CREATININE (test code = 2214) 1.05 MG/DL eGFR AMER. (test code 61 ML/MIN/1.73 = 12334) eGFR NON- AMER. (test 53 ML/MIN/1.73 code = 99642) CALC BUN/CREAT (test code = 26 RATIO [...] code = 2219) 11 U/L COMPREHENSIVE METABOLIC [id number] 00:00:00 Test Item Value Reference Range Interpretation Comments GLUCOSE (test code = 2217) 222 MG/DL BUN (test code = 2208) 27 MG/DL CREATININE (test code = 2214) 1.05 MG/DL eGFR AMER. (test code 61 ML/MIN/1.73 = 33172) eGFR NON- AMER. (test 53 ML/MIN/1.73 code = 92569) CALC BUN/CREAT (test code = 26 RATIO 2235) SODIUM (test code = 2231) 140 MEQ/L POTASSIUM (test code = 2228) 5.2 MEQ/L CHLORIDE (test code = 2215) 106 MEQ/L CARBON DIOXIDE (test code = 20 MEQ/L 2206) CALCIUM (test code = 2209) 9.4 MG/DL [...] (test code = 2219) 11 U/L LIPID [id number] 00:00:00 Test Item Value Reference Range Interpretation Comments CHOLESTEROL (test code = 2210) 230 MG/DL TRIGLYCERIDES (test code = 2232) 414 MG/DL HDL CHOLESTEROL (test code = 51 MG/DL 2220) CALC LDL CHOL (test code = 2237) (NOTE) MG/DL RISK RATIO LDL/HDL (test code = (NOTE) RATIO 2238) LIPID [id number] 00:00:00 Test Item Value Reference Range Interpretation Comments CHOLESTEROL (test code = 2210) 230 MG/DL TRIGLYCERIDES (test code = 2232) 414 MG/DL HDL CHOLESTEROL (test code = 51 MG/DL 0) CALC LDL CHOL (test code = 2237) (NOTE) MG/DL RISK RATIO LDL/HDL (test code = (NOTE) RATIO 2238) HEMOGLOBIN [id number] 00:00:00 Test Item Value Reference Range Interpretation Comments HEMOGLOBIN A1c (test code = 62230) 8.7 % HEMOGLOBIN [id number] 00:00:00 Test Item Value Reference Range Interpretation Comments HEMOGLOBIN A1c (test code = 39568) 8.7 % HEMOGLOBIN [id number] 00:00:00 Test Item Value Reference Range Interpretation Comments HEMOGLOBIN A1c (test code = 64254) 8.7 % COMPREHENSIVE METABOLIC [id number] 00:00:00 Test Item Value Reference Range Interpretation Comments GLUCOSE (test code = 2217) 222 MG/DL BUN (test code = 2208) 27 MG/DL CREATININE (test code = 2214) 1.05 MG/DL eGFR AMER. (test code 61 ML/MIN/1.73 = 93545) eGFR NON- AMER. (test 53 ML/MIN/1.73 code = 92937) CALC BUN/CREAT (test code = 26 RATIO [...] (test code = 2219) 11 U/L LIPID [id number] 00:00:00 Test Item Value Reference Range Interpretation Comments CHOLESTEROL (test code = 2210) 230 MG/DL TRIGLYCERIDES (test code = 2232) 414 MG/DL HDL CHOLESTEROL (test code = 51 MG/DL 2219) CALC LDL CHOL (test code = 2237) (NOTE) MG/DL RISK RATIO LDL/HDL (test code = (NOTE) RATIO 2238) HEMOGLOBIN [id number] 00:00:00 Test Item Value Reference Range Interpretation Comments HEMOGLOBIN A1c (test code = 49896) 8.7 % HEMOGLOBIN [id number] 00:00:00 Test Item Value Reference Range Interpretation Comments HEMOGLOBIN A1c (test code = 02600) 8.7 % COMPREHENSIVE METABOLIC [id number] 00:00:00 Test Item Value Reference Range Interpretation Comments GLUCOSE (test code = 2217) 222 MG/DL BUN (test code = 2208) 27 MG/DL CREATININE (test code = 2214) 1.05 MG/DL eGFR AMER. (test code 61 ML/MIN/1.73 = 12244) eGFR NON- AMER. (test 53 ML/MIN/1.73 code = 67475) CALC BUN/CREAT (test code = 26 RATIO [...] code = 2219) 11 U/L COMPREHENSIVE METABOLIC [id number] 00:00:00 Test Item Value Reference Range Interpretation Comments GLUCOSE (test code = 2217) 222 MG/DL BUN (test code = 2208) 27 MG/DL CREATININE (test code = 2214) 1.05 MG/DL eGFR AMER. (test code 61 ML/MIN/1.73 = 17339) eGFR NON- AMER. (test 53 ML/MIN/1.73 code = 37132) CALC BUN/CREAT (test code = 26 RATIO [...] (test code = 2219) 11 U/L LIPID [id number] 00:00:00 Test Item Value Reference Range Interpretation Comments CHOLESTEROL (test code = 2210) 230 MG/DL TRIGLYCERIDES (test code = 2232) 414 MG/DL HDL CHOLESTEROL (test code = 51 MG/DL 2219) CALC LDL CHOL (test code = 2237) (NOTE) MG/DL RISK RATIO LDL/HDL (test code = (NOTE) RATIO 2238) LIPID [id number] 00:00:00 Test Item Value Reference Range Interpretation Comments CHOLESTEROL (test code = 2210) 230 MG/DL TRIGLYCERIDES (test code = 2232) 414 MG/DL HDL CHOLESTEROL (test code = 51 MG/DL 2220) CALC LDL CHOL (test code = 2237) (NOTE) MG/DL RISK RATIO LDL/HDL (test code = (NOTE) RATIO 2238) HEMOGLOBIN [id number] 00:00:00 Test Item Value Reference Range Interpretation Comments HEMOGLOBIN A1c (test code = 11763) 8.7 % HEMOGLOBIN [id number] 00:00:00 Test Item Value Reference Range Interpretation Comments HEMOGLOBIN A1c (test code = 31292) 8.7 % HEMOGLOBIN [id number] 00:00:00 Test Item Value Reference Range Interpretation Comments HEMOGLOBIN A1c (test code = 27350) 8.7 % COMPREHENSIVE METABOLIC [id number] 00:00:00 Test Item Value Reference Range Interpretation Comments GLUCOSE (test code = 2217) 222 MG/DL BUN (test code = 2208) 27 MG/DL CREATININE (test code = 2214) 1.05 MG/DL eGFR AMER. (test code 61 ML/MIN/1.73 = 75906) eGFR NON- AMER. (test 53 ML/MIN/1.73 code = 22673) CALC BUN/CREAT (test code = 26 RATIO [...] code = 2219) 11 U/L COMPREHENSIVE METABOLIC [id number] 00:00:00 Test Item Value Reference Range Interpretation Comments GLUCOSE (test code = 2217) 222 MG/DL BUN (test code = 2208) 27 MG/DL CREATININE (test code = 2214) 1.05 MG/DL eGFR AMER. (test code 61 ML/MIN/1.73 = 84932) eGFR NON- AMER. (test 53 ML/MIN/1.73 code = 35074) CALC BUN/CREAT (test code = 26 RATIO [...] (test code = 2219) 11 U/L LIPID [id number] 00:00:00 Test Item Value Reference Range Interpretation Comments CHOLESTEROL (test code = 2210) 230 MG/DL TRIGLYCERIDES (test code = 2232) 414 MG/DL HDL CHOLESTEROL (test code = 51 MG/DL 0) CALC LDL CHOL (test code = 2237) (NOTE) MG/DL RISK RATIO LDL/HDL (test code = (NOTE) RATIO 2238) LIPID [id number] 00:00:00 Test Item Value Reference Range Interpretation Comments CHOLESTEROL (test code = 2210) 230 MG/DL TRIGLYCERIDES (test code = 2232) 414 MG/DL HDL CHOLESTEROL (test code = 51 MG/DL 2220) CALC LDL CHOL (test code = 2237) (NOTE) MG/DL RISK RATIO LDL/HDL (test code = (NOTE) RATIO 2238) HEMOGLOBIN [id number] 00:00:00 Test Item Value Reference Range Interpretation Comments HEMOGLOBIN A1c (test code = 18969) 8.7 % HEMOGLOBIN [id number] 00:00:00 Test Item Value Reference Range Interpretation Comments HEMOGLOBIN A1c (test code = 26390) 8.7 % HEMOGLOBIN [id number] 00:00:00 Test Item Value Reference Range Interpretation Comments HEMOGLOBIN A1c (test code = 51088) 8.7 % XR KNEE 3 VW [id number] 19:05:24HISTORY: ?Pain. FINDINGS: AP, lateral, oblique views [...] degenerative arthritis of left knee with [facility]ffusion[facility] 2020-10-14 [...] No acutefracture or dislocation in left ankle. Comb, Radiant Results Inft User - 10/14/2020 2:05 [...] joint.CONCLUSIONS: No acute fractureor dislocation in left ankle.[facility] 2020-10-14 [...] fracture or dislocation in pelvis or left hip.[facility] [id number] 00:00:00 Test Item Value Reference Range Interpretation Comments VITAMIN D, 25 OH (test code = 4958) 18 NG/ML VITAMIN D, 25 [id number] 00:00:00 Test Item Value Reference Range Interpretation Comments VITAMIN D, 25 OH (test code = 4958) 18 NG/ML CULTURE, [id number] 00:00:00 Test Item Value Reference Range Interpretation Comments CULTURE, URINE (test SPECIMEN NUMBER: code = 27522) [id number] CULTURE, [id number] 00:00:00 Test Item Value Reference Range Interpretation Comments CULTURE, URINE (test SPECIMEN NUMBER: code = 97692) [id number] VITAMIN D, 25 [id number] 00:00:00 Test Item Value Reference Range Interpretation Comments VITAMIN D, 25 OH (test code = 4958) 18 NG/ML VITAMIN D, 25 [id number] 00:00:00 Test Item Value Reference Range Interpretation Comments VITAMIN D, 25 OH (test code = 4958) 18 NG/ML CULTURE, [id number] 00:00:00 Test Item Value Reference Range Interpretation Comments CULTURE, URINE (test SPECIMEN NUMBER: code = 51183) [id number] CULTURE, [id number] 00:00:00 Test Item Value Reference Range Interpretation Comments CULTURE, URINE (test SPECIMEN NUMBER: code = 57409) [id number] VITAMIN D, 25 [id number] 00:00:00 Test Item Value Reference Range Interpretation Comments VITAMIN D, 25 OH (test code = 4958) 18 NG/ML CULTURE, [id number] 00:00:00 Test Item Value Reference Range Interpretation Comments CULTURE, URINE (test SPECIMEN NUMBER: code = 06093) [id number] VITAMIN D, 25 [id number] 00:00:00 Test Item Value Reference Range Interpretation Comments VITAMIN D, 25 OH (test code = 4958) 18 NG/ML VITAMIN D, 25 [id number] 00:00:00 Test Item Value Reference Range Interpretation Comments VITAMIN D, 25 OH (test code = 4958) 18 NG/ML CULTURE, [id number] 00:00:00 Test Item Value Reference Range Interpretation Comments CULTURE, URINE (test SPECIMEN NUMBER: code = 86182) [id number] CULTURE, [id number] 00:00:00 Test Item Value Reference Range Interpretation Comments CULTURE, URINE (test SPECIMEN NUMBER: code = 92235) [id number] VITAMIN D, 25 [id number] 00:00:00 Test Item Value Reference Range Interpretation Comments VITAMIN D, 25 OH (test code = 4958) 18 NG/ML VITAMIN D, 25 [id number] 00:00:00 Test Item Value Reference Range Interpretation Comments VITAMIN D, 25 OH (test code = 4958) 18 NG/ML CULTURE, [id number] 00:00:00 Test Item Value Reference Range Interpretation Comments CULTURE, URINE (test SPECIMEN NUMBER: code = 20426) [id number] CULTURE, [id number] 00:00:00 Test Item Value Reference Range Interpretation Comments CULTURE, URINE (test SPECIMEN NUMBER: code = 10427) [id number] VITAMIN D, 25 [id number] 00:00:00 Test Item Value Reference Range Interpretation Comments VITAMIN D, 25 OH (test code = 4958) 18 NG/ML CULTURE, [id number] 00:00:00 Test Item Value Reference Range Interpretation Comments CULTURE, URINE (test SPECIMEN NUMBER: code = 16837) [id number] VITAMIN D, 25 [id number] 00:00:00 Test Item Value Reference Range Interpretation Comments VITAMIN D, 25 OH (test code = 4958) 18 NG/ML VITAMIN D, 25 [id number] 00:00:00 Test Item Value Reference Range Interpretation Comments VITAMIN D, 25 OH (test code = 4958) 18 NG/ML CULTURE, [id number] 00:00:00 Test Item Value Reference Range Interpretation Comments CULTURE, URINE (test SPECIMEN NUMBER: code = 27523) [id number] CULTURE, [id number] 00:00:00 Test Item Value Reference Range Interpretation Comments CULTURE, URINE (test SPECIMEN NUMBER: code = 02268) [id number] VITAMIN D, 25 [id number] 00:00:00 Test Item Value Reference Range Interpretation Comments VITAMIN D, 25 OH (test code = 4958) 18 NG/ML VITAMIN D, 25 [id number] 00:00:00 Test Item Value Reference Range Interpretation Comments VITAMIN D, 25 OH (test code = 4958) 18 NG/ML CULTURE, [id number] 00:00:00 Test Item Value Reference Range Interpretation Comments CULTURE, URINE (test SPECIMEN NUMBER: code = 92003) [id number] CULTURE, [id number] 00:00:00 Test Item Value Reference Range Interpretation Comments CULTURE, URINE (test SPECIMEN NUMBER: code = 11133) [id number] 00:00:00 Test Item Value Reference Range Interpretation Comments TSH, THIRD GENERATION (test code 2.450 UIU/ML = 2821) [id number] 00:00:00 Test Item Value Reference Range Interpretation Comments TSH, THIRD GENERATION (test code 2.450 UIU/ML = 2821) [id number] 00:00:00 Test Item Value Reference Range Interpretation Comments TSH, THIRD GENERATION (test code 2.450 UIU/ML = 2821) [id number] 00:00:00 Test Item Value Reference Range Interpretation Comments TSH, THIRD GENERATION (test code 2.450 UIU/ML = 2821) [id number] 00:00:00 Test Item Value Reference Range Interpretation Comments TSH, THIRD GENERATION (test code 2.450 UIU/ML = 2821) [id number] 00:00:00 Test Item Value Reference Range Interpretation Comments TSH, THIRD GENERATION (test code 2.450 UIU/ML = 2821) [id number] 00:00:00 Test Item Value Reference Range Interpretation Comments TSH, THIRD GENERATION (test code 2.450 UIU/ML = 2821) [id number] 00:00:00 Test Item Value Reference Range Interpretation Comments TSH, THIRD GENERATION (test code 2.450 UIU/ML = 2821) [id number] 00:00:00 Test Item Value Reference Range Interpretation Comments TSH, THIRD GENERATION (test code 2.450 UIU/ML = 2821) [id number] 00:00:00 Test Item Value Reference Range Interpretation Comments TSH, THIRD GENERATION (test code 2.450 UIU/ML = 2821) [id number] 00:00:00 Test Item Value Reference Range Interpretation Comments TSH, THIRD GENERATION (test code 2.450 UIU/ML = 2821) [id number] 00:00:00 Test Item Value Reference Range Interpretation Comments TSH, THIRD GENERATION (test code 2.450 UIU/ML = 2821) [id number] 00:00:00 Test Item Value Reference Range Interpretation Comments TSH, THIRD GENERATION (test code 2.450 UIU/ML = 2821) [id number] 00:00:00 Test Item Value Reference Range Interpretation Comments TSH, THIRD GENERATION (test code 2.450 UIU/ML = 2821) [id number] 00:00:00 Test Item Value Reference Range Interpretation Comments TSH, THIRD GENERATION (test code 2.450 UIU/ML = 2821) [id number] 00:00:00 Test Item Value Reference Range Interpretation Comments TSH, THIRD GENERATION (test code 2.450 UIU/ML = 2821) [id number] 00:00:00 Test Item Value Reference Range Interpretation Comments TSH, THIRD GENERATION (test code 2.450 UIU/ML = 2821) [id number] 00:00:00 Test Item Value Reference Range Interpretation Comments TSH, THIRD GENERATION (test code 2.450 UIU/ML = 2821) [id number] 00:00:00 Test Item Value Reference Range Interpretation Comments TSH, THIRD GENERATION (test code 2.450 UIU/ML = 2821) [id number] 00:00:00 Test Item Value Reference Range Interpretation Comments TSH, THIRD GENERATION (test code 2.450 UIU/ML = 2821) [id number] 00:00:00 Test Item Value Reference Range Interpretation Comments TSH, THIRD GENERATION (test code 2.450 UIU/ML = 2821) [id number] 00:00:00 Test Item Value Reference Range Interpretation Comments TSH, THIRD GENERATION (test code 2.450 UIU/ML = 2821) HEMOGLOBIN [id number] 00:00:00 Test Item Value Reference Range Interpretation Comments HEMOGLOBIN A1c (test code = 04010) 7.4 % HEMOGLOBIN [id number] 00:00:00 Test Item Value Reference Range Interpretation Comments HEMOGLOBIN A1c (test code = 34584) 7.4 % HEMOGLOBIN [id number] 00:00:00 Test Item Value Reference Range Interpretation Comments HEMOGLOBIN A1c (test code = 01400) 7.4 % HEMOGLOBIN [id number] 00:00:00 Test Item Value Reference Range Interpretation Comments HEMOGLOBIN A1c (test code = 68627) 7.4 % HEMOGLOBIN [id number] 00:00:00 Test Item Value Reference Range Interpretation Comments HEMOGLOBIN A1c (test code = 01191) 7.4 % HEMOGLOBIN [id number] 00:00:00 Test Item Value Reference Range Interpretation Comments HEMOGLOBIN A1c (test code = 39623) 7.4 % HEMOGLOBIN [id number] 00:00:00 Test Item Value Reference Range Interpretation Comments HEMOGLOBIN A1c (test code = 64221) 7.4 % HEMOGLOBIN [id number] 00:00:00 Test Item Value Reference Range Interpretation Comments HEMOGLOBIN A1c (test code = 83976) 7.4 % HEMOGLOBIN [id number] 00:00:00 Test Item Value Reference Range Interpretation Comments HEMOGLOBIN A1c (test code = 14866) 7.4 % HEMOGLOBIN [id number] 00:00:00 Test Item Value Reference Range Interpretation Comments HEMOGLOBIN A1c (test code = 03603) 7.4 % HEMOGLOBIN [id number] 00:00:00 Test Item Value Reference Range Interpretation Comments HEMOGLOBIN A1c (test code = 47763) 7.4 % HEMOGLOBIN [id number] 00:00:00 Test Item Value Reference Range Interpretation Comments HEMOGLOBIN A1c (test code = 89208) 7.4 % HEMOGLOBIN [id number] 00:00:00 Test Item Value Reference Range Interpretation Comments HEMOGLOBIN A1c (test code = 80564) 7.4 % HEMOGLOBIN [id number] 00:00:00 Test Item Value Reference Range Interpretation Comments HEMOGLOBIN A1c (test code = 80813) 7.4 % HEMOGLOBIN [id number] 00:00:00 Test Item Value Reference Range Interpretation Comments HEMOGLOBIN A1c (test code = 28378) 7.4 % HEMOGLOBIN [id number] 00:00:00 Test Item Value Reference Range Interpretation Comments HEMOGLOBIN A1c (test code = 14106) 7.4 % HEMOGLOBIN [id number] 00:00:00 Test Item Value Reference Range Interpretation Comments HEMOGLOBIN A1c (test code = 05225) 7.4 % HEMOGLOBIN [id number] 00:00:00 Test Item Value Reference Range Interpretation Comments HEMOGLOBIN A1c (test code = 56094) 7.4 % HEMOGLOBIN [id number] 00:00:00 Test Item Value Reference Range Interpretation Comments HEMOGLOBIN A1c (test code = 64391) 7.4 % HEMOGLOBIN [id number] 00:00:00 Test Item Value Reference Range Interpretation Comments HEMOGLOBIN A1c (test code = 64783) 7.4 % HEMOGLOBIN [id number] 00:00:00 Test Item Value Reference Range Interpretation Comments HEMOGLOBIN A1c (test code = 26376) 7.4 % HEMOGLOBIN [id number] 00:00:00 Test Item Value Reference Range Interpretation Comments HEMOGLOBIN A1c (test code = 80840) 7.4 % CBC W/AUTO [id number] 00:00:00 Test Item Value Reference Range Interpretation [...] code = 1015) 230 K/UL CBC W/AUTO [id number] 00:00:00 Test Item Value Reference Range Interpretation [...] code = 1015) 230 K/UL CBC W/AUTO [id number] 00:00:00 Test Item Value Reference Range Interpretation [...] code = 1015) 230 K/UL CBC W/AUTO [id number] 00:00:00 Test Item Value Reference Range Interpretation [...] code = 1015) 230 K/UL CBC W/AUTO [id number] 00:00:00 Test Item Value Reference Range Interpretation [...] code = 1015) 230 K/UL CBC W/AUTO [id number] 00:00:00 Test Item Value Reference Range Interpretation [...] code = 1015) 230 K/UL CBC W/AUTO [id number] 00:00:00 Test Item Value Reference Range Interpretation [...] code = 1015) 230 K/UL CBC W/AUTO [id number] 00:00:00 Test Item Value Reference Range Interpretation [...] code = 1015) 230 K/UL CBC W/AUTO [id number] 00:00:00 Test Item Value Reference Range Interpretation [...] code = 1015) 230 K/UL CBC W/AUTO [id number] 00:00:00 Test Item Value Reference Range Interpretation [...] code = 1015) 230 K/UL CBC W/AUTO [id number] 00:00:00 Test Item Value Reference Range Interpretation [...] code = 1015) 230 K/UL CBC W/AUTO [id number] 00:00:00 Test Item Value Reference Range Interpretation [...] code = 1015) 230 K/UL CBC W/AUTO [id number] 00:00:00 Test Item Value Reference Range Interpretation [...] code = 1015) 230 K/UL CBC W/AUTO [id number] 00:00:00 Test Item Value Reference Range Interpretation [...] code = 1015) 230 K/UL CBC W/AUTO [id number] 00:00:00 Test Item Value Reference Range Interpretation [...] code = 1015) 230 K/UL CBC W/AUTO [id number] 00:00:00 Test Item Value Reference Range Interpretation [...] code = 1015) 230 K/UL CBC W/AUTO [id number] 00:00:00 Test Item Value Reference Range Interpretation [...] code = 1015) 230 K/UL CBC W/AUTO [id number] 00:00:00 Test Item Value Reference Range Interpretation [...] code = 1015) 230 K/UL CBC W/AUTO [id number] 00:00:00 Test Item Value Reference Range Interpretation [...] code = 1015) 230 K/UL CBC W/AUTO [id number] 00:00:00 Test Item Value Reference Range Interpretation [...] code = 1015) 230 K/UL CBC W/AUTO [id number] 00:00:00 Test Item Value Reference Range Interpretation [...] code = 1015) 230 K/UL CBC W/AUTO [id number] 00:00:00 Test Item Value Reference Range Interpretation [...] (test code = 1015) 230 K/UL HEMOGLOBIN [id number] 00:00:00 Test Item Value Reference Range Interpretation Comments HEMOGLOBIN A1c (test code = 92881) 8.4 % HEMOGLOBIN [id number] 00:00:00 Test Item Value Reference Range Interpretation Comments HEMOGLOBIN A1c (test code = 05093) 8.4 % HEMOGLOBIN [id number] 00:00:00 Test Item Value Reference Range Interpretation Comments HEMOGLOBIN A1c (test code = 91713) 8.4 % COMPREHENSIVE METABOLIC [id number] 00:00:00 Test Item Value Reference Range Interpretation Comments GLUCOSE (test code = 2217) 204 MG/DL BUN (test code = 2208) 26 MG/DL CREATININE (test code = 2214) 1.21 MG/DL eGFR AMER. (test code 52 ML/MIN/1.73 = 85414) eGFR NON- AMER. (test 45 ML/MIN/1.73 code = 45323) CALC BUN/CREAT (test code = 21 RATIO [...] code = 2219) 8 U/L COMPREHENSIVE METABOLIC [id number] 00:00:00 Test Item Value Reference Range Interpretation Comments GLUCOSE (test code = 2217) 204 MG/DL BUN (test code = 2208) 26 MG/DL CREATININE (test code = 2214) 1.21 MG/DL eGFR AMER. (test code 52 ML/MIN/1.73 = 76500) eGFR NON- AMER. (test 45 ML/MIN/1.73 code = 46786) CALC BUN/CREAT (test code = 21 RATIO [...] (test code = 2219) 8 U/L LIPID [id number] 00:00:00 Test Item Value Reference Range Interpretation Comments CHOLESTEROL (test code = 2210) 184 MG/DL TRIGLYCERIDES (test code = 2232) 222 MG/DL HDL CHOLESTEROL (test code = 2220) 52 MG/DL CALC LDL CHOL (test code = 2237) 98 MG/DL RISK RATIO LDL/HDL (test code = 1.88 RATIO 2238) LIPID [id number] 00:00:00 Test Item Value Reference Range Interpretation Comments CHOLESTEROL (test code = 2210) 184 MG/DL TRIGLYCERIDES (test code = 2232) 222 MG/DL HDL CHOLESTEROL (test code = 2220) 52 MG/DL CALC LDL CHOL (test code = 2237) 98 MG/DL RISK RATIO LDL/HDL (test code = 1.88 RATIO 2238) HEMOGLOBIN [id number] 00:00:00 Test Item Value Reference Range Interpretation Comments HEMOGLOBIN A1c (test code = 53158) 8.4 % HEMOGLOBIN [id number] 00:00:00 Test Item Value Reference Range Interpretation Comments HEMOGLOBIN A1c (test code = 26467) 8.4 % HEMOGLOBIN [id number] 00:00:00 Test Item Value Reference Range Interpretation Comments HEMOGLOBIN A1c (test code = 08546) 8.4 % HEMOGLOBIN [id number] 00:00:00 Test Item Value Reference Range Interpretation Comments HEMOGLOBIN A1c (test code = 60648) 8.4 % HEMOGLOBIN [id number] 00:00:00 Test Item Value Reference Range Interpretation Comments HEMOGLOBIN A1c (test code = 33325) 8.4 % COMPREHENSIVE METABOLIC [id number] 00:00:00 Test Item Value Reference Range Interpretation Comments GLUCOSE (test code = 2217) 204 MG/DL BUN (test code = 2208) 26 MG/DL CREATININE (test code = 2214) 1.21 MG/DL eGFR AMER. (test code 52 ML/MIN/1.73 = 03724) eGFR NON- AMER. (test 45 ML/MIN/1.73 code = 86137) CALC BUN/CREAT (test code = 21 RATIO 2234) SODIUM (test code = 2231) 140 MEQ/L POTASSIUM (test code = 2228) 4.6 MEQ/L CHLORIDE (test code = 2215) 105 MEQ/L CARBON DIOXIDE (test code = 23 MEQ/L 2205) CALCIUM (test code = 2209) 9.2 MG/DL PROTEIN, TOTAL (test code = 7.2 G/DL 2228) ALBUMIN (test code = 220) 4.1 G/DL CALC GLOBULIN (test code = 3.1 G/DL 2239) CALC A/G RATIO (test code = 1.3 RATIO 2233) BILIRUBIN, TOTAL (test code = 0.3 MG/DL 2206) ALKALINE PHOSPHATASE (test 69 U/L code = 2204) AST (test code = 2218) 11 U/L ALT (test code = 2219) 8 U/L COMPREHENSIVE METABOLIC [id number] 00:00:00 Test Item Value Reference Range Interpretation Comments GLUCOSE (test code = 2217) 204 MG/DL BUN (test code = 2208) 26 MG/DL CREATININE (test code = 2214) 1.21 MG/DL eGFR AMER. (test code 52 ML/MIN/1.73 = 38107) eGFR NON- AMER. (test 45 ML/MIN/1.73 code = 52414) CALC BUN/CREAT (test code = 21 RATIO [...] (test code = 2219) 8 U/L LIPID [id number] 00:00:00 Test Item Value Reference Range Interpretation Comments CHOLESTEROL (test code = 2210) 184 MG/DL TRIGLYCERIDES (test code = 2232) 222 MG/DL HDL CHOLESTEROL (test code = 2220) 52 MG/DL CALC LDL CHOL (test code = 2237) 98 MG/DL RISK RATIO LDL/HDL (test code = 1.88 RATIO 2238) LIPID [id number] 00:00:00 Test Item Value Reference Range Interpretation Comments CHOLESTEROL (test code = 2210) 184 MG/DL TRIGLYCERIDES (test code = 2232) 222 MG/DL HDL CHOLESTEROL (test code = 2220) 52 MG/DL CALC LDL CHOL (test code = 2237) 98 MG/DL RISK RATIO LDL/HDL (test code = 1.88 RATIO 2238) COMPREHENSIVE METABOLIC [id number] 00:00:00 Test Item Value Reference Range Interpretation Comments GLUCOSE (test code = 2217) 204 MG/DL BUN (test code = 2208) 26 MG/DL CREATININE (test code = 2214) 1.21 MG/DL eGFR AMER. (test code 52 ML/MIN/1.73 = 27530) eGFR NON- AMER. (test 45 ML/MIN/1.73 code = 40420) CALC BUN/CREAT (test code = 21 RATIO [...] ALT (test code = 2219) 8 U/L HEMOGLOBIN [id number] 00:00:00 Test Item Value Reference Range Interpretation Comments HEMOGLOBIN A1c (test code = 24581) 8.4 % HEMOGLOBIN [id number] 00:00:00 Test Item Value Reference Range Interpretation Comments HEMOGLOBIN A1c (test code = 04425) 8.4 % HEMOGLOBIN [id number] 00:00:00 Test Item Value Reference Range Interpretation Comments HEMOGLOBIN A1c (test code = 52385) 8.4 % LIPID [id number] 00:00:00 Test Item Value Reference Range Interpretation Comments CHOLESTEROL (test code = 2210) 184 MG/DL TRIGLYCERIDES (test code = 2232) 222 MG/DL HDL CHOLESTEROL (test code = 2220) 52 MG/DL CALC LDL CHOL (test code = 2237) 98 MG/DL RISK RATIO LDL/HDL (test code = 1.88 RATIO 2238) COMPREHENSIVE METABOLIC [id number] 00:00:00 Test Item Value Reference Range Interpretation Comments GLUCOSE (test code = 2217) 204 MG/DL BUN (test code = 2208) 26 MG/DL CREATININE (test code = 2214) 1.21 MG/DL eGFR AMER. (test code 52 ML/MIN/1.73 = 46333) eGFR NON- AMER. (test 45 ML/MIN/1.73 code = 71130) CALC BUN/CREAT (test code = 21 RATIO [...] code = 2219) 8 U/L COMPREHENSIVE METABOLIC [id number] 00:00:00 Test Item Value Reference Range Interpretation Comments GLUCOSE (test code = 2217) 204 MG/DL BUN (test code = 2208) 26 MG/DL CREATININE (test code = 2214) 1.21 MG/DL eGFR AMER. (test code 52 ML/MIN/1.73 = 06337) eGFR NON- AMER. (test 45 ML/MIN/1.73 code = 10888) CALC BUN/CREAT (test code = 21 RATIO [...] (test code = 2219) 8 U/L LIPID [id number] 00:00:00 Test Item Value Reference Range Interpretation Comments CHOLESTEROL (test code = 2210) 184 MG/DL TRIGLYCERIDES (test code = 2232) 222 MG/DL HDL CHOLESTEROL (test code = 2220) 52 MG/DL CALC LDL CHOL (test code = 2237) 98 MG/DL RISK RATIO LDL/HDL (test code = 1.88 RATIO 2238) LIPID [id number] 00:00:00 Test Item Value Reference Range Interpretation Comments CHOLESTEROL (test code = 2210) 184 MG/DL TRIGLYCERIDES (test code = 2232) 222 MG/DL HDL CHOLESTEROL (test code = 2220) 52 MG/DL CALC LDL CHOL (test code = 2237) 98 MG/DL RISK RATIO LDL/HDL (test code = 1.88 RATIO 2238) HEMOGLOBIN [id number] 00:00:00 Test Item Value Reference Range Interpretation Comments HEMOGLOBIN A1c (test code = 28970) 8.4 % HEMOGLOBIN [id number] 00:00:00 Test Item Value Reference Range Interpretation Comments HEMOGLOBIN A1c (test code = 90583) 8.4 % HEMOGLOBIN [id number] 00:00:00 Test Item Value Reference Range Interpretation Comments HEMOGLOBIN A1c (test code = 82525) 8.4 % COMPREHENSIVE METABOLIC [id number] 00:00:00 Test Item Value Reference Range Interpretation Comments GLUCOSE (test code = 2217) 204 MG/DL BUN (test code = 2208) 26 MG/DL CREATININE (test code = 2214) 1.21 MG/DL eGFR AMER. (test code 52 ML/MIN/1.73 = 80759) eGFR NON- AMER. (test 45 ML/MIN/1.73 code = 31768) CALC BUN/CREAT (test code = 21 RATIO [...] = 0.3 MG/DL 220) ALKALINE PHOSPHATASE (test 69 U/L code = 2204) AST (test code = 2218) 11 U/L ALT (test code = 2219) 8 U/L COMPREHENSIVE METABOLIC [id number] 00:00:00 Test Item Value Reference Range Interpretation Comments GLUCOSE (test code = 2217) 204 MG/DL BUN (test code = 2208) 26 MG/DL CREATININE (test code = 2214) 1.21 MG/DL eGFR AMER. (test code 52 ML/MIN/1.73 = 96826) eGFR NON- AMER. (test 45 ML/MIN/1.73 code = 63165) CALC BUN/CREAT (test code = 21 RATIO [...] (test code = 2219) 8 U/L LIPID [id number] 00:00:00 Test Item Value Reference Range Interpretation Comments CHOLESTEROL (test code = 2210) 184 MG/DL TRIGLYCERIDES (test code = 2232) 222 MG/DL HDL CHOLESTEROL (test code = 2220) 52 MG/DL CALC LDL CHOL (test code = 2237) 98 MG/DL RISK RATIO LDL/HDL (test code = 1.88 RATIO 2238) LIPID [id number] 00:00:00 Test Item Value Reference Range Interpretation Comments CHOLESTEROL (test code = 2210) 184 MG/DL TRIGLYCERIDES (test code = 2232) 222 MG/DL HDL CHOLESTEROL (test code = 2220) 52 MG/DL CALC LDL CHOL (test code = 2237) 98 MG/DL RISK RATIO LDL/HDL (test code = 1.88 RATIO 2238) HEMOGLOBIN [id number] 00:00:00 Test Item Value Reference Range Interpretation Comments HEMOGLOBIN A1c (test code = 02154) 8.4 % HEMOGLOBIN [id number] 00:00:00 Test Item Value Reference Range Interpretation Comments HEMOGLOBIN A1c (test code = 90674) 8.4 % COMPREHENSIVE METABOLIC [id number] 00:00:00 Test Item Value Reference Range Interpretation Comments GLUCOSE (test code = 2217) 204 MG/DL BUN (test code = 2208) 26 MG/DL CREATININE (test code = 2214) 1.21 MG/DL eGFR AMER. (test code 52 ML/MIN/1.73 = 89189) eGFR NON- AMER. (test 45 ML/MIN/1.73 code = 65583) CALC BUN/CREAT (test code = 21 RATIO [...] (test code = 2219) 8 U/L LIPID [id number] 00:00:00 Test Item Value Reference Range Interpretation Comments CHOLESTEROL (test code = 2210) 184 MG/DL TRIGLYCERIDES (test code = 2232) 222 MG/DL HDL CHOLESTEROL (test code = 2220) 52 MG/DL CALC LDL CHOL (test code = 2237) 98 MG/DL RISK RATIO LDL/HDL (test code = 1.88 RATIO 2238) HEMOGLOBIN [id number] 00:00:00 Test Item Value Reference Range Interpretation Comments HEMOGLOBIN A1c (test code = 98458) 8.4 % HEMOGLOBIN [id number] 00:00:00 Test Item Value Reference Range Interpretation Comments HEMOGLOBIN A1c (test code = 91153) 8.4 % HEMOGLOBIN [id number] 00:00:00 Test Item Value Reference Range Interpretation Comments HEMOGLOBIN A1c (test code = 09160) 8.4 % COMPREHENSIVE METABOLIC [id number] 00:00:00 Test Item Value Reference Range Interpretation Comments GLUCOSE (test code = 2217) 204 MG/DL BUN (test code = 8) 26 MG/DL CREATININE (test code = 2214) 1.21 MG/DL eGFR AMER. (test code 52 ML/MIN/1.73 = 34461) eGFR NON- AMER. (test 45 ML/MIN/1.73 code = 72573) CALC BUN/CREAT (test code = 21 RATIO [...] code = 2219) 8 U/L COMPREHENSIVE METABOLIC [id number] 00:00:00 Test Item Value Reference Range Interpretation Comments GLUCOSE (test code = 2217) 204 MG/DL BUN (test code = 2208) 26 MG/DL CREATININE (test code = 2214) 1.21 MG/DL eGFR AMER. (test code 52 ML/MIN/1.73 = 51139) eGFR NON- AMER. (test 45 ML/MIN/1.73 code = 99336) CALC BUN/CREAT (test code = 21 RATIO [...] (test code = 2219) 8 U/L LIPID [id number] 00:00:00 Test Item Value Reference Range Interpretation Comments CHOLESTEROL (test code = 2210) 184 MG/DL TRIGLYCERIDES (test code = 2232) 222 MG/DL HDL CHOLESTEROL (test code = 2220) 52 MG/DL CALC LDL CHOL (test code = 2237) 98 MG/DL RISK RATIO LDL/HDL (test code = 1.88 RATIO 2238) LIPID [id number] 00:00:00 Test Item Value Reference Range Interpretation Comments CHOLESTEROL (test code = 2210) 184 MG/DL TRIGLYCERIDES (test code = 2232) 222 MG/DL HDL CHOLESTEROL (test code = 2220) 52 MG/DL CALC LDL CHOL (test code = 2237) 98 MG/DL RISK RATIO LDL/HDL (test code = 1.88 RATIO 2238) HEMOGLOBIN [id number] 00:00:00 Test Item Value Reference Range Interpretation Comments HEMOGLOBIN A1c (test code = 44348) 8.4 % HEMOGLOBIN [id number] 00:00:00 Test Item Value Reference Range Interpretation Comments HEMOGLOBIN A1c (test code = 73892) 8.4 % HEMOGLOBIN [id number] 00:00:00 Test Item Value Reference Range Interpretation Comments HEMOGLOBIN A1c (test code = 44930) 8.4 % COMPREHENSIVE METABOLIC [id number] 00:00:00 Test Item Value Reference Range Interpretation Comments GLUCOSE (test code = 2217) 204 MG/DL BUN (test code = 2208) 26 MG/DL CREATININE (test code = 2214) 1.21 MG/DL eGFR AMER. (test code 52 ML/MIN/1.73 = 49630) eGFR NON- AMER. (test 45 ML/MIN/1.73 code = 70328) CALC BUN/CREAT (test code = 21 RATIO [...] code = 2219) 8 U/L COMPREHENSIVE METABOLIC [id number] 00:00:00 Test Item Value Reference Range Interpretation Comments GLUCOSE (test code = 2217) 204 MG/DL BUN (test code = 2208) 26 MG/DL CREATININE (test code = 2214) 1.21 MG/DL eGFR AMER. (test code 52 ML/MIN/1.73 = 63359) eGFR NON- AMER. (test 45 ML/MIN/1.73 code = 80705) CALC BUN/CREAT (test code = 21 RATIO 2235) SODIUM (test code = 2231) 140 MEQ/L POTASSIUM (test code = 2228) 4.6 MEQ/L CHLORIDE (test code = 2215) 105 MEQ/L CARBON DIOXIDE (test code = 23 MEQ/L 220) CALCIUM (test code = 2209) 9.2 MG/DL PROTEIN, TOTAL (test code = 7.2 G/DL 2229) ALBUMIN (test code = 2201) 4.1 G/DL CALC GLOBULIN (test code = 3.1 G/DL 2240) CALC A/G RATIO (test code = 1.3 RATIO 2234) BILIRUBIN, TOTAL (test code = 0.3 MG/DL 2206) ALKALINE PHOSPHATASE (test 69 U/L code = 2204) AST (test code = 2218) 11 U/L ALT (test code = 2219) 8 U/L LIPID [id number] 00:00:00 Test Item Value Reference Range Interpretation Comments CHOLESTEROL (test code = 2210) 184 MG/DL TRIGLYCERIDES (test code = 2232) 222 MG/DL HDL CHOLESTEROL (test code = 2220) 52 MG/DL CALC LDL CHOL (test code = 2237) 98 MG/DL RISK RATIO LDL/HDL (test code = 1.88 RATIO 2238) LIPID [id number] 00:00:00 Test Item Value Reference Range Interpretation Comments CHOLESTEROL (test code = 2210) 184 MG/DL TRIGLYCERIDES (test code = 2232) 222 MG/DL HDL CHOLESTEROL (test code = 2220) 52 MG/DL CALC LDL CHOL (test code = 2237) 98 MG/DL RISK RATIO LDL/HDL (test code = 1.88 RATIO 2238) MICROALBUMIN/CREATININE, RANDOM AND [id number] 00:00:00 Test Item Value Reference Range Interpretation Comments CREATININE, URINE, CONC. (test 190.3 MG/DL code = 2072) ALBUMIN, URINE, RANDOM (test code 135.3 MG/DL = 84331) CALC ALBUMIN/CREAT, RND (test 711 MG/G code = 78253) MICROALBUMIN/CREATININE, RANDOM AND [id number] 00:00:00 Test Item Value Reference Range Interpretation Comments CREATININE, URINE, CONC. (test 190.3 MG/DL code = 2072) ALBUMIN, URINE, RANDOM (test code 135.3 MG/DL = 12905) CALC ALBUMIN/CREAT, RND (test 711 MG/G code = 51920) MICROALBUMIN/CREATININE, RANDOM AND [id number] 00:00:00 Test Item Value Reference Range Interpretation Comments CREATININE, URINE, CONC. (test 190.3 MG/DL code = 2072) ALBUMIN, URINE, RANDOM (test code 135.3 MG/DL = 65148) CALC ALBUMIN/CREAT, RND (test 711 MG/G code = 39296) MICROALBUMIN/CREATININE, RANDOM AND [id number] 00:00:00 Test Item Value Reference Range Interpretation Comments CREATININE, URINE, CONC. (test 190.3 MG/DL code = 2072) ALBUMIN, URINE, RANDOM (test code 135.3 MG/DL = 48516) CALC ALBUMIN/CREAT, RND (test 711 MG/G code = 29957) MICROALBUMIN/CREATININE, RANDOM AND [id number] 00:00:00 Test Item Value Reference Range Interpretation Comments CREATININE, URINE, CONC. (test 190.3 MG/DL code = 2072) ALBUMIN, URINE, RANDOM (test code 135.3 MG/DL = 08840) CALC ALBUMIN/CREAT, RND (test 711 MG/G code = 90389) MICROALBUMIN/CREATININE, RANDOM AND [id number] 00:00:00 Test Item Value Reference Range Interpretation Comments CREATININE, URINE, CONC. (test 190.3 MG/DL code = 2072) ALBUMIN, URINE, RANDOM (test code 135.3 MG/DL = 29288) CALC ALBUMIN/CREAT, RND (test 711 MG/G code = 87269) MICROALBUMIN/CREATININE, RANDOM AND [id number] 00:00:00 Test Item Value Reference Range Interpretation Comments CREATININE, URINE, CONC. (test 190.3 MG/DL code = 2072) ALBUMIN, URINE, RANDOM (test code 135.3 MG/DL = 28138) CALC ALBUMIN/CREAT, RND (test 711 MG/G code = 22474) MICROALBUMIN/CREATININE, RANDOM AND [id number] 00:00:00 Test Item Value Reference Range Interpretation Comments CREATININE, URINE, CONC. (test 190.3 MG/DL code = 2072) ALBUMIN, URINE, RANDOM (test code 135.3 MG/DL = 11983) CALC ALBUMIN/CREAT, RND (test 711 MG/G code = 93380) MICROALBUMIN/CREATININE, RANDOM AND [id number] 00:00:00 Test Item Value Reference Range Interpretation Comments CREATININE, URINE, CONC. (test 190.3 MG/DL code = 2072) ALBUMIN, URINE, RANDOM (test code 135.3 MG/DL = 71347) CALC ALBUMIN/CREAT, RND (test 711 MG/G code = 32987) MICROALBUMIN/CREATININE, RANDOM AND [id number] 00:00:00 Test Item Value Reference Range Interpretation Comments CREATININE, URINE, CONC. (test 190.3 MG/DL code = 2072) ALBUMIN, URINE, RANDOM (test code 135.3 MG/DL = 25542) CALC ALBUMIN/CREAT, RND (test 711 MG/G code = 83158) MICROALBUMIN/CREATININE, RANDOM AND [id number] 00:00:00 Test Item Value Reference Range Interpretation Comments CREATININE, URINE, CONC. (test 190.3 MG/DL code = 2072) ALBUMIN, URINE, RANDOM (test code 135.3 MG/DL = 98340) CALC ALBUMIN/CREAT, RND (test 711 MG/G code = 49520) MICROALBUMIN/CREATININE, RANDOM AND [id number] 00:00:00 Test Item Value Reference Range Interpretation Comments CREATININE, URINE, CONC. (test 190.3 MG/DL code = 2072) ALBUMIN, URINE, RANDOM (test code 135.3 MG/DL = 14289) CALC ALBUMIN/CREAT, RND (test 711 MG/G code = 37082) MICROALBUMIN/CREATININE, RANDOM AND [id number] 00:00:00 Test Item Value Reference Range Interpretation Comments CREATININE, URINE, CONC. (test 190.3 MG/DL code = 2072) ALBUMIN, URINE, RANDOM (test code 135.3 MG/DL = 67388) CALC ALBUMIN/CREAT, RND (test 711 MG/G code = 09505) MICROALBUMIN/CREATININE, RANDOM AND [id number] 00:00:00 Test Item Value Reference Range Interpretation Comments CREATININE, URINE, CONC. (test 190.3 MG/DL code = 2072) ALBUMIN, URINE, RANDOM (test code 135.3 MG/DL = 60138) CALC ALBUMIN/CREAT, RND (test 711 MG/G code = 69797) HEMOGLOBIN [id number] 00:00:00 Test Item Value Reference Range Interpretation Comments HEMOGLOBIN A1c (test code = 24616) 7.9 % HEMOGLOBIN [id number] 00:00:00 Test Item Value Reference Range Interpretation Comments HEMOGLOBIN A1c (test code = 25149) 7.9 % HEMOGLOBIN [id number] 00:00:00 Test Item Value Reference Range Interpretation Comments HEMOGLOBIN A1c (test code = 18822) 7.9 % LIPID [id number] 00:00:00 Test Item Value Reference Range Interpretation Comments CHOLESTEROL (test code = 2210) 227 MG/DL TRIGLYCERIDES (test code = 2232) 165 MG/DL HDL CHOLESTEROL (test code = 2220) 58 MG/DL CALC LDL CHOL (test code = 2237) 139 MG/DL RISK RATIO LDL/HDL (test code = 2.40 RATIO 2238) LIPID [id number] 00:00:00 Test Item Value Reference Range Interpretation Comments CHOLESTEROL (test code = 2210) 227 MG/DL TRIGLYCERIDES (test code = 2232) 165 MG/DL HDL CHOLESTEROL (test code = 2220) 58 MG/DL CALC LDL CHOL (test code = 2237) 139 MG/DL RISK RATIO LDL/HDL (test code = 2.40 RATIO 2238) COMPREHENSIVE METABOLIC [id number] 00:00:00 Test Item Value Reference Range Interpretation Comments GLUCOSE (test code = 2217) 103 MG/DL BUN (test code = 2208) 25 MG/DL CREATININE (test code = 2214) 1.30 MG/DL eGFR AMER. (test code 48 ML/MIN/1.73 = 13936) eGFR NON- AMER. (test 41 ML/MIN/1.73 code = 90527) CALC BUN/CREAT (test code = 19 RATIO [...] code = 2219) 12 U/L COMPREHENSIVE METABOLIC [id number] 00:00:00 Test Item Value Reference Range Interpretation Comments GLUCOSE (test code = 2217) 103 MG/DL BUN (test code = 2208) 25 MG/DL CREATININE (test code = 2214) 1.30 MG/DL eGFR AMER. (test code 48 ML/MIN/1.73 = 87034) eGFR NON- AMER. (test 41 ML/MIN/1.73 code = 48028) CALC BUN/CREAT (test code = 19 RATIO [...] (test code = 2219) 12 U/L HEMOGLOBIN [id number] 00:00:00 Test Item Value Reference Range Interpretation Comments HEMOGLOBIN A1c (test code = 47794) 7.9 % HEMOGLOBIN [id number] 00:00:00 Test Item Value Reference Range Interpretation Comments HEMOGLOBIN A1c (test code = 81241) 7.9 % HEMOGLOBIN [id number] 00:00:00 Test Item Value Reference Range Interpretation Comments HEMOGLOBIN A1c (test code = 81721) 7.9 % HEMOGLOBIN [id number] 00:00:00 Test Item Value Reference Range Interpretation Comments HEMOGLOBIN A1c (test code = 90126) 7.9 % HEMOGLOBIN [id number] 00:00:00 Test Item Value Reference Range Interpretation Comments HEMOGLOBIN A1c (test code = 57474) 7.9 % LIPID [id number] 00:00:00 Test Item Value Reference Range Interpretation Comments CHOLESTEROL (test code = 2210) 227 MG/DL TRIGLYCERIDES (test code = 2232) 165 MG/DL HDL CHOLESTEROL (test code = 2220) 58 MG/DL CALC LDL CHOL (test code = 2237) 139 MG/DL RISK RATIO LDL/HDL (test code = 2.40 RATIO 2238) LIPID [id number] 00:00:00 Test Item Value Reference Range Interpretation Comments CHOLESTEROL (test code = 2210) 227 MG/DL TRIGLYCERIDES (test code = 2232) 165 MG/DL HDL CHOLESTEROL (test code = 2220) 58 MG/DL CALC LDL CHOL (test code = 2237) 139 MG/DL RISK RATIO LDL/HDL (test code = 2.40 RATIO 2238) LIPID [id number] 00:00:00 Test Item Value Reference Range Interpretation Comments CHOLESTEROL (test code = 2210) 227 MG/DL TRIGLYCERIDES (test code = 2232) 165 MG/DL HDL CHOLESTEROL (test code = 2220) 58 MG/DL CALC LDL CHOL (test code = 2237) 139 MG/DL RISK RATIO LDL/HDL (test code = 2.40 RATIO 2238) COMPREHENSIVE METABOLIC [id number] 00:00:00 Test Item Value Reference Range Interpretation Comments GLUCOSE (test code = 2217) 103 MG/DL BUN (test code = 2208) 25 MG/DL CREATININE (test code = 2214) 1.30 MG/DL eGFR AMER. (test code 48 ML/MIN/1.73 = 62291) eGFR NON- AMER. (test 41 ML/MIN/1.73 code = 56886) CALC BUN/CREAT (test code = 19 RATIO [...] = 0.4 MG/DL 2207) ALKALINE PHOSPHATASE (test 79 U/L code = 2204) AST (test code = 2218) 16 U/L ALT (test code = 2219) 12 U/L COMPREHENSIVE METABOLIC [id number] 00:00:00 Test Item Value Reference Range Interpretation Comments GLUCOSE (test code = 2217) 103 MG/DL BUN (test code = 2208) 25 MG/DL CREATININE (test code = 2214) 1.30 MG/DL eGFR AMER. (test code 48 ML/MIN/1.73 = 68582) eGFR NON- AMER. (test 41 ML/MIN/1.73 code = 96876) CALC BUN/CREAT (test code = 19 RATIO [...] code = 2219) 12 U/L COMPREHENSIVE METABOLIC [id number] 00:00:00 Test Item Value Reference Range Interpretation Comments GLUCOSE (test code = 2217) 103 MG/DL BUN (test code = 2208) 25 MG/DL CREATININE (test code = 2214) 1.30 MG/DL eGFR AMER. (test code 48 ML/MIN/1.73 = 18068) eGFR NON- AMER. (test 41 ML/MIN/1.73 code = 61484) CALC BUN/CREAT (test code = 19 RATIO [...] (test code = 2219) 12 U/L HEMOGLOBIN [id number] 00:00:00 Test Item Value Reference Range Interpretation Comments HEMOGLOBIN A1c (test code = 33921) 7.9 % HEMOGLOBIN [id number] 00:00:00 Test Item Value Reference Range Interpretation Comments HEMOGLOBIN A1c (test code = 27890) 7.9 % HEMOGLOBIN [id number] 00:00:00 Test Item Value Reference Range Interpretation Comments HEMOGLOBIN A1c (test code = 70261) 7.9 % LIPID [id number] 00:00:00 Test Item Value Reference Range Interpretation Comments CHOLESTEROL (test code = 2210) 227 MG/DL TRIGLYCERIDES (test code = 2232) 165 MG/DL HDL CHOLESTEROL (test code = 2220) 58 MG/DL CALC LDL CHOL (test code = 2237) 139 MG/DL RISK RATIO LDL/HDL (test code = 2.40 RATIO 2238) LIPID [id number] 00:00:00 Test Item Value Reference Range Interpretation Comments CHOLESTEROL (test code = 2210) 227 MG/DL TRIGLYCERIDES (test code = 2232) 165 MG/DL HDL CHOLESTEROL (test code = 2220) 58 MG/DL CALC LDL CHOL (test code = 2237) 139 MG/DL RISK RATIO LDL/HDL (test code = 2.40 RATIO 2238) COMPREHENSIVE METABOLIC [id number] 00:00:00 Test Item Value Reference Range Interpretation Comments GLUCOSE (test code = 2217) 103 MG/DL BUN (test code = 2208) 25 MG/DL CREATININE (test code = 2214) 1.30 MG/DL eGFR AMER. (test code 48 ML/MIN/1.73 = 80078) eGFR NON- AMER. (test 41 ML/MIN/1.73 code = 05775) CALC BUN/CREAT (test code = 19 RATIO 2235) SODIUM (test code = 2231) 141 MEQ/L POTASSIUM (test code = 2228) 5.0 MEQ/L CHLORIDE (test code = 2215) 104 MEQ/L CARBON DIOXIDE (test code = 21 MEQ/L 220) CALCIUM (test code = 2209) 10.3 MG/DL PROTEIN, TOTAL (test code = 8.1 G/DL 222) ALBUMIN (test code = 2201) 4.5 G/DL CALC GLOBULIN (test code = 3.6 G/DL 2240) CALC A/G RATIO (test code = 1.3 RATIO 2234) BILIRUBIN, TOTAL (test code = 0.4 MG/DL 2206) ALKALINE PHOSPHATASE (test 79 U/L code = 2204) AST (test code = 2218) 16 U/L ALT (test code = 2219) 12 U/L COMPREHENSIVE METABOLIC [id number] 00:00:00 Test Item Value Reference Range Interpretation Comments GLUCOSE (test code = 2217) 103 MG/DL BUN (test code = 2208) 25 MG/DL CREATININE (test code = 2214) 1.30 MG/DL eGFR AMER. (test code 48 ML/MIN/1.73 = 88951) eGFR NON- AMER. (test 41 ML/MIN/1.73 code = 96561) CALC BUN/CREAT (test code = 19 RATIO [...] (test code = 2219) 12 U/L HEMOGLOBIN [id number] 00:00:00 Test Item Value Reference Range Interpretation Comments HEMOGLOBIN A1c (test code = 40678) 7.9 % HEMOGLOBIN [id number] 00:00:00 Test Item Value Reference Range Interpretation Comments HEMOGLOBIN A1c (test code = 06808) 7.9 % HEMOGLOBIN [id number] 00:00:00 Test Item Value Reference Range Interpretation Comments HEMOGLOBIN A1c (test code = 22587) 7.9 % LIPID [id number] 00:00:00 Test Item Value Reference Range Interpretation Comments CHOLESTEROL (test code = 2210) 227 MG/DL TRIGLYCERIDES (test code = 2232) 165 MG/DL HDL CHOLESTEROL (test code = 2220) 58 MG/DL CALC LDL CHOL (test code = 2237) 139 MG/DL RISK RATIO LDL/HDL (test code = 2.40 RATIO 2238) LIPID [id number] 00:00:00 Test Item Value Reference Range Interpretation Comments CHOLESTEROL (test code = 2210) 227 MG/DL TRIGLYCERIDES (test code = 2232) 165 MG/DL HDL CHOLESTEROL (test code = 2220) 58 MG/DL CALC LDL CHOL (test code = 2237) 139 MG/DL RISK RATIO LDL/HDL (test code = 2.40 RATIO 2238) COMPREHENSIVE METABOLIC [id number] 00:00:00 Test Item Value Reference Range Interpretation Comments GLUCOSE (test code = 2217) 103 MG/DL BUN (test code = 2208) 25 MG/DL CREATININE (test code = 2214) 1.30 MG/DL eGFR AMER. (test code 48 ML/MIN/1.73 = 15826) eGFR NON- AMER. (test 41 ML/MIN/1.73 code = 17234) CALC BUN/CREAT (test code = 19 RATIO [...] code = 2219) 12 U/L COMPREHENSIVE METABOLIC [id number] 00:00:00 Test Item Value Reference Range Interpretation Comments GLUCOSE (test code = 2217) 103 MG/DL BUN (test code = 2208) 25 MG/DL CREATININE (test code = 2214) 1.30 MG/DL eGFR AMER. (test code 48 ML/MIN/1.73 = 53675) eGFR NON- AMER. (test 41 ML/MIN/1.73 code = 18231) CALC BUN/CREAT (test code = 19 RATIO [...] (test code = 2219) 12 U/L HEMOGLOBIN [id number] 00:00:00 Test Item Value Reference Range Interpretation Comments HEMOGLOBIN A1c (test code = 87225) 7.9 % HEMOGLOBIN [id number] 00:00:00 Test Item Value Reference Range Interpretation Comments HEMOGLOBIN A1c (test code = 76030) 7.9 % LIPID [id number] 00:00:00 Test Item Value Reference Range Interpretation Comments CHOLESTEROL (test code = 2210) 227 MG/DL TRIGLYCERIDES (test code = 2232) 165 MG/DL HDL CHOLESTEROL (test code = 2220) 58 MG/DL CALC LDL CHOL (test code = 2237) 139 MG/DL RISK RATIO LDL/HDL (test code = 2.40 RATIO 2238) COMPREHENSIVE METABOLIC [id number] 00:00:00 Test Item Value Reference Range Interpretation Comments GLUCOSE (test code = 2217) 103 MG/DL BUN (test code = 2208) 25 MG/DL CREATININE (test code = 2214) 1.30 MG/DL eGFR AMER. (test code 48 ML/MIN/1.73 = 08871) eGFR NON- AMER. (test 41 ML/MIN/1.73 code = 56439) CALC BUN/CREAT (test code = 19 RATIO [...] (test code = 2219) 12 U/L HEMOGLOBIN [id number] 00:00:00 Test Item Value Reference Range Interpretation Comments HEMOGLOBIN A1c (test code = 86875) 7.9 % HEMOGLOBIN [id number] 00:00:00 Test Item Value Reference Range Interpretation Comments HEMOGLOBIN A1c (test code = 09909) 7.9 % HEMOGLOBIN [id number] 00:00:00 Test Item Value Reference Range Interpretation Comments HEMOGLOBIN A1c (test code = 88923) 7.9 % LIPID [id number] 00:00:00 Test Item Value Reference Range Interpretation Comments CHOLESTEROL (test code = 2210) 227 MG/DL TRIGLYCERIDES (test code = 2232) 165 MG/DL HDL CHOLESTEROL (test code = 2220) 58 MG/DL CALC LDL CHOL (test code = 2237) 139 MG/DL RISK RATIO LDL/HDL (test code = 2.40 RATIO 2238) LIPID [id number] 00:00:00 Test Item Value Reference Range Interpretation Comments CHOLESTEROL (test code = 2210) 227 MG/DL TRIGLYCERIDES (test code = 2232) 165 MG/DL HDL CHOLESTEROL (test code = 2220) 58 MG/DL CALC LDL CHOL (test code = 2237) 139 MG/DL RISK RATIO LDL/HDL (test code = 2.40 RATIO 2238) COMPREHENSIVE METABOLIC [id number] 00:00:00 Test Item Value Reference Range Interpretation Comments GLUCOSE (test code = 2217) 103 MG/DL BUN (test code = 2208) 25 MG/DL CREATININE (test code = 2214) 1.30 MG/DL eGFR AMER. (test code 48 ML/MIN/1.73 = 16057) eGFR NON- AMER. (test 41 ML/MIN/1.73 code = 15894) CALC BUN/CREAT (test code = 19 RATIO [...] code = 2219) 12 U/L COMPREHENSIVE METABOLIC [id number] 00:00:00 Test Item Value Reference Range Interpretation Comments GLUCOSE (test code = 2217) 103 MG/DL BUN (test code = 2208) 25 MG/DL CREATININE (test code = 2214) 1.30 MG/DL eGFR AMER. (test code 48 ML/MIN/1.73 = 17604) eGFR NON- AMER. (test 41 ML/MIN/1.73 code = 10727) CALC BUN/CREAT (test code = 19 RATIO [...] (test code = 2219) 12 U/L HEMOGLOBIN [id number] 00:00:00 Test Item Value Reference Range Interpretation Comments HEMOGLOBIN A1c (test code = 19233) 7.9 % HEMOGLOBIN [id number] 00:00:00 Test Item Value Reference Range Interpretation Comments HEMOGLOBIN A1c (test code = 68669) 7.9 % HEMOGLOBIN [id number] 00:00:00 Test Item Value Reference Range Interpretation Comments HEMOGLOBIN A1c (test code = 50868) 7.9 % LIPID [id number] 00:00:00 Test Item Value Reference Range Interpretation Comments CHOLESTEROL (test code = 2210) 227 MG/DL TRIGLYCERIDES (test code = 2232) 165 MG/DL HDL CHOLESTEROL (test code = 2220) 58 MG/DL CALC LDL CHOL (test code = 2237) 139 MG/DL RISK RATIO LDL/HDL (test code = 2.40 RATIO 2238) LIPID [id number] 00:00:00 Test Item Value Reference Range Interpretation Comments CHOLESTEROL (test code = 2210) 227 MG/DL TRIGLYCERIDES (test code = 2232) 165 MG/DL HDL CHOLESTEROL (test code = 2220) 58 MG/DL CALC LDL CHOL (test code = 2237) 139 MG/DL RISK RATIO LDL/HDL (test code = 2.40 RATIO 2238) COMPREHENSIVE METABOLIC [id number] 00:00:00 Test Item Value Reference Range Interpretation Comments GLUCOSE (test code = 2217) 103 MG/DL BUN (test code = 2208) 25 MG/DL CREATININE (test code = 2214) 1.30 MG/DL eGFR AMER. (test code 48 ML/MIN/1.73 = 33742) eGFR NON- AMER. (test 41 ML/MIN/1.73 code = 26659) CALC BUN/CREAT (test code = 19 RATIO [...] code = 2219) 12 U/L COMPREHENSIVE METABOLIC [id number] 00:00:00 Test Item Value Reference Range Interpretation Comments GLUCOSE (test code = 2217) 103 MG/DL BUN (test code = 2208) 25 MG/DL CREATININE (test code = 2214) 1.30 MG/DL eGFR AMER. (test code 48 ML/MIN/1.73 = 84679) eGFR NON- AMER. (test 41 ML/MIN/1.73 code = 63476) CALC BUN/CREAT (test code = 19 RATIO [...] code = 2219) 12 U/L COMPREHENSIVE METABOLIC [id number] 00:00:00 Test Item Value Reference Range Interpretation Comments GLUCOSE (test code = 2217) 138 MG/DL BUN (test code = 2208) 33 MG/DL CREATININE (test code = 2214) 1.25 MG/DL eGFR AMER. (test code 50 ML/MIN/1.73 = 97014) eGFR NON- AMER. (test 43 ML/MIN/1.73 code = 67584) CALC BUN/CREAT (test code = 26 RATIO [...] code = 2219) 12 U/L COMPREHENSIVE METABOLIC [id number] 00:00:00 Test Item Value Reference Range Interpretation Comments GLUCOSE (test code = 2217) 138 MG/DL BUN (test code = 2208) 33 MG/DL CREATININE (test code = 2214) 1.25 MG/DL eGFR AMER. (test code 50 ML/MIN/1.73 = 98434) eGFR NON- AMER. (test 43 ML/MIN/1.73 code = 78152) CALC BUN/CREAT (test code = 26 RATIO [...] (test code = 2219) 12 U/L LIPID [id number] 00:00:00 Test Item Value Reference Range Interpretation Comments CHOLESTEROL (test code = 2210) 211 MG/DL TRIGLYCERIDES (test code = 2232) 245 MG/DL HDL CHOLESTEROL (test code = 2220) 52 MG/DL CALC LDL CHOL (test code = 2237) 122 MG/DL RISK RATIO LDL/HDL (test code = 2.35 RATIO 2238) LIPID [id number] 00:00:00 Test Item Value Reference Range Interpretation Comments CHOLESTEROL (test code = 2210) 211 MG/DL TRIGLYCERIDES (test code = 2232) 245 MG/DL HDL CHOLESTEROL (test code = 2220) 52 MG/DL CALC LDL CHOL (test code = 2237) 122 MG/DL RISK RATIO LDL/HDL (test code = 2.35 RATIO 2238) COMPREHENSIVE METABOLIC [id number] 00:00:00 Test Item Value Reference Range Interpretation Comments GLUCOSE (test code = 2217) 138 MG/DL BUN (test code = 2208) 33 MG/DL CREATININE (test code = 2214) 1.25 MG/DL eGFR AMER. (test code 50 ML/MIN/1.73 = 03516) eGFR NON- AMER. (test 43 ML/MIN/1.73 code = 14681) CALC BUN/CREAT (test code = 26 RATIO [...] code = 2219) 12 U/L COMPREHENSIVE METABOLIC [id number] 00:00:00 Test Item Value Reference Range Interpretation Comments GLUCOSE (test code = 2217) 138 MG/DL BUN (test code = 2208) 33 MG/DL CREATININE (test code = 2214) 1.25 MG/DL eGFR AMER. (test code 50 ML/MIN/1.73 = 74306) eGFR NON- AMER. (test 43 ML/MIN/1.73 code = 58805) CALC BUN/CREAT (test code = 26 RATIO 2235) SODIUM (test code = 2231) 139 MEQ/L POTASSIUM (test code = 2228) 4.9 MEQ/L CHLORIDE (test code = 2215) 104 MEQ/L CARBON DIOXIDE (test code = 23 MEQ/L 6) CALCIUM (test code = 2209) 9.6 MG/DL [...] (test code = 2219) 12 U/L LIPID [id number] 00:00:00 Test Item Value Reference Range Interpretation Comments CHOLESTEROL (test code = 2210) 211 MG/DL TRIGLYCERIDES (test code = 2232) 245 MG/DL HDL CHOLESTEROL (test code = 2220) 52 MG/DL CALC LDL CHOL (test code = 2237) 122 MG/DL RISK RATIO LDL/HDL (test code = 2.35 RATIO 2238) LIPID [id number] 00:00:00 Test Item Value Reference Range Interpretation Comments CHOLESTEROL (test code = 2210) 211 MG/DL TRIGLYCERIDES (test code = 2232) 245 MG/DL HDL CHOLESTEROL (test code = 2220) 52 MG/DL CALC LDL CHOL (test code = 2237) 122 MG/DL RISK RATIO LDL/HDL (test code = 2.35 RATIO 2238) COMPREHENSIVE METABOLIC [id number] 00:00:00 Test Item Value Reference Range Interpretation Comments GLUCOSE (test code = 2217) 138 MG/DL BUN (test code = 2208) 33 MG/DL CREATININE (test code = 2214) 1.25 MG/DL eGFR AMER. (test code 50 ML/MIN/1.73 = 43011) eGFR NON- AMER. (test 43 ML/MIN/1.73 code = 24746) CALC BUN/CREAT (test code = 26 RATIO [...] (test code = 2219) 12 U/L LIPID [id number] 00:00:00 Test Item Value Reference Range Interpretation Comments CHOLESTEROL (test code = 2210) 211 MG/DL TRIGLYCERIDES (test code = 2232) 245 MG/DL HDL CHOLESTEROL (test code = 2220) 52 MG/DL CALC LDL CHOL (test code = 2237) 122 MG/DL RISK RATIO LDL/HDL (test code = 2.35 RATIO 2238) COMPREHENSIVE METABOLIC [id number] 00:00:00 Test Item Value Reference Range Interpretation Comments GLUCOSE (test code = 2217) 138 MG/DL BUN (test code = 2208) 33 MG/DL CREATININE (test code = 2214) 1.25 MG/DL eGFR AMER. (test code 50 ML/MIN/1.73 = 62487) eGFR NON- AMER. (test 43 ML/MIN/1.73 code = 79513) CALC BUN/CREAT (test code = 26 RATIO [...] code = 2219) 12 U/L COMPREHENSIVE METABOLIC [id number] 00:00:00 Test Item Value Reference Range Interpretation Comments GLUCOSE (test code = 2217) 138 MG/DL BUN (test code = 2208) 33 MG/DL CREATININE (test code = 2214) 1.25 MG/DL eGFR AMER. (test code 50 ML/MIN/1.73 = 18560) eGFR NON- AMER. (test 43 ML/MIN/1.73 code = 03654) CALC BUN/CREAT (test code = 26 RATIO 2235) SODIUM (test code = 2231) 139 MEQ/L POTASSIUM (test code = 2228) 4.9 MEQ/L CHLORIDE (test code = 2215) 104 MEQ/L CARBON DIOXIDE (test code = 23 MEQ/L 2206) CALCIUM (test code = 2209) 9.6 MG/DL PROTEIN, TOTAL (test code = 7.3 G/DL 9) ALBUMIN (test code = 2201) 4.4 G/DL CALC GLOBULIN (test code = 2.9 G/DL 2240) CALC A/G RATIO (test code = 1.5 RATIO 2234) BILIRUBIN, TOTAL (test code = 0.3 MG/DL 2206) ALKALINE PHOSPHATASE (test 85 U/L code = 2204) AST (test code = 2218) 16 U/L ALT (test code = 2219) 12 U/L LIPID [id number] 00:00:00 Test Item Value Reference Range Interpretation Comments CHOLESTEROL (test code = 2210) 211 MG/DL TRIGLYCERIDES (test code = 2232) 245 MG/DL HDL CHOLESTEROL (test code = 2220) 52 MG/DL CALC LDL CHOL (test code = 2237) 122 MG/DL RISK RATIO LDL/HDL (test code = 2.35 RATIO 2238) LIPID [id number] 00:00:00 Test Item Value Reference Range Interpretation Comments CHOLESTEROL (test code = 2210) 211 MG/DL TRIGLYCERIDES (test code = 2232) 245 MG/DL HDL CHOLESTEROL (test code = 2220) 52 MG/DL CALC LDL CHOL (test code = 2237) 122 MG/DL RISK RATIO LDL/HDL (test code = 2.35 RATIO 2238) COMPREHENSIVE METABOLIC [id number] 00:00:00 Test Item Value Reference Range Interpretation Comments GLUCOSE (test code = 2217) 138 MG/DL BUN (test code = 2208) 33 MG/DL CREATININE (test code = 2214) 1.25 MG/DL eGFR AMER. (test code 50 ML/MIN/1.73 = 40641) eGFR NON- AMER. (test 43 ML/MIN/1.73 code = 58904) CALC BUN/CREAT (test code = 26 RATIO [...] code = 2219) 12 U/L COMPREHENSIVE METABOLIC [id number] 00:00:00 Test Item Value Reference Range Interpretation Comments GLUCOSE (test code = 2217) 138 MG/DL BUN (test code = 2208) 33 MG/DL CREATININE (test code = 2214) 1.25 MG/DL eGFR AMER. (test code 50 ML/MIN/1.73 = 62108) eGFR NON- AMER. (test 43 ML/MIN/1.73 code = 33005) CALC BUN/CREAT (test code = 26 RATIO [...] (test code = 2219) 12 U/L LIPID [id number] 00:00:00 Test Item Value Reference Range Interpretation Comments CHOLESTEROL (test code = 2210) 211 MG/DL TRIGLYCERIDES (test code = 2232) 245 MG/DL HDL CHOLESTEROL (test code = 2220) 52 MG/DL CALC LDL CHOL (test code = 2237) 122 MG/DL RISK RATIO LDL/HDL (test code = 2.35 RATIO 2238) LIPID [id number] 00:00:00 Test Item Value Reference Range Interpretation Comments CHOLESTEROL (test code = 2210) 211 MG/DL TRIGLYCERIDES (test code = 2232) 245 MG/DL HDL CHOLESTEROL (test code = 2220) 52 MG/DL CALC LDL CHOL (test code = 2237) 122 MG/DL RISK RATIO LDL/HDL (test code = 2.35 RATIO 2238) COMPREHENSIVE METABOLIC [id number] 00:00:00 Test Item Value Reference Range Interpretation Comments GLUCOSE (test code = 2217) 138 MG/DL BUN (test code = 2208) 33 MG/DL CREATININE (test code = 2214) 1.25 MG/DL eGFR AMER. (test code 50 ML/MIN/1.73 = 64533) eGFR NON- AMER. (test 43 ML/MIN/1.73 code = 83483) CALC BUN/CREAT (test code = 26 RATIO 2235) SODIUM (test code = 2231) 139 MEQ/L POTASSIUM (test code = 2228) 4.9 MEQ/L CHLORIDE (test code = 2215) 104 MEQ/L CARBON DIOXIDE (test code = 23 MEQ/L 2205) CALCIUM (test code = 2209) 9.6 MG/DL PROTEIN, TOTAL (test code = 7.3 G/DL 2228) ALBUMIN (test code = 220) 4.4 G/DL CALC GLOBULIN (test code = 2.9 G/DL 2239) CALC A/G RATIO (test code = 1.5 RATIO 2233) BILIRUBIN, TOTAL (test code = 0.3 MG/DL 2206) ALKALINE PHOSPHATASE (test 85 U/L code = 2204) AST (test code = 2218) 16 U/L ALT (test code = 2219) 12 U/L LIPID [id number] 00:00:00 Test Item Value Reference Range Interpretation Comments CHOLESTEROL (test code = 2210) 211 MG/DL TRIGLYCERIDES (test code = 2232) 245 MG/DL HDL CHOLESTEROL (test code = 2220) 52 MG/DL CALC LDL CHOL (test code = 2237) 122 MG/DL RISK RATIO LDL/HDL (test code = 2.35 RATIO 2238) COMPREHENSIVE METABOLIC [id number] 00:00:00 Test Item Value Reference Range Interpretation Comments GLUCOSE (test code = 2217) 138 MG/DL BUN (test code = 2208) 33 MG/DL CREATININE (test code = 2214) 1.25 MG/DL eGFR AMER. (test code 50 ML/MIN/1.73 = 85919) eGFR NON- AMER. (test 43 ML/MIN/1.73 code = 56957) CALC BUN/CREAT (test code = 26 RATIO [...] code = 2219) 12 U/L COMPREHENSIVE METABOLIC [id number] 00:00:00 Test Item Value Reference Range Interpretation Comments GLUCOSE (test code = 2217) 138 MG/DL BUN (test code = 2208) 33 MG/DL CREATININE (test code = 2214) 1.25 MG/DL eGFR AMER. (test code 50 ML/MIN/1.73 = 73554) eGFR NON- AMER. (test 43 ML/MIN/1.73 code = 45781) CALC BUN/CREAT (test code = 26 RATIO [...] (test code = 2219) 12 U/L LIPID [id number] 00:00:00 Test Item Value Reference Range Interpretation Comments CHOLESTEROL (test code = 2210) 211 MG/DL TRIGLYCERIDES (test code = 2232) 245 MG/DL HDL CHOLESTEROL (test code = 2220) 52 MG/DL CALC LDL CHOL (test code = 2237) 122 MG/DL RISK RATIO LDL/HDL (test code = 2.35 RATIO 2238) LIPID [id number] 00:00:00 Test Item Value Reference Range Interpretation Comments CHOLESTEROL (test code = 2210) 211 MG/DL TRIGLYCERIDES (test code = 2232) 245 MG/DL HDL CHOLESTEROL (test code = 2220) 52 MG/DL CALC LDL CHOL (test code = 2237) 122 MG/DL RISK RATIO LDL/HDL (test code = 2.35 RATIO 2238) COMPREHENSIVE METABOLIC [id number] 00:00:00 Test Item Value Reference Range Interpretation Comments GLUCOSE (test code = 2217) 138 MG/DL BUN (test code = 2208) 33 MG/DL CREATININE (test code = 2214) 1.25 MG/DL eGFR AMER. (test code 50 ML/MIN/1.73 = 26382) eGFR NON- AMER. (test 43 ML/MIN/1.73 code = 81931) CALC BUN/CREAT (test code = 26 RATIO [...] code = 2219) 12 U/L COMPREHENSIVE METABOLIC [id number] 00:00:00 Test Item Value Reference Range Interpretation Comments GLUCOSE (test code = 2217) 138 MG/DL BUN (test code = 2208) 33 MG/DL CREATININE (test code = 2214) 1.25 MG/DL eGFR AMER. (test code 50 ML/MIN/1.73 = 81219) eGFR NON- AMER. (test 43 ML/MIN/1.73 code = 01703) CALC BUN/CREAT (test code = 26 RATIO [...] (test code = 2219) 12 U/L LIPID [id number] 00:00:00 Test Item Value Reference Range Interpretation Comments CHOLESTEROL (test code = 2210) 211 MG/DL TRIGLYCERIDES (test code = 2232) 245 MG/DL HDL CHOLESTEROL (test code = 2220) 52 MG/DL CALC LDL CHOL (test code = 2237) 122 MG/DL RISK RATIO LDL/HDL (test code = 2.35 RATIO 2238) LIPID [id number] 00:00:00 Test Item Value Reference Range Interpretation Comments CHOLESTEROL (test code = 2210) 211 MG/DL TRIGLYCERIDES (test code = 2232) 245 MG/DL HDL CHOLESTEROL (test code = 2220) 52 MG/DL CALC LDL CHOL (test code = 2237) 122 MG/DL RISK RATIO LDL/HDL (test code = 2.35 RATIO 2238) HEMOGLOBIN [id number] 00:00:00 Test Item Value Reference Range Interpretation Comments HEMOGLOBIN A1c (test code = 44693) 7.5 % HEMOGLOBIN [id number] 00:00:00 Test Item Value Reference Range Interpretation Comments HEMOGLOBIN A1c (test code = 26781) 7.5 % HEMOGLOBIN [id number] 00:00:00 Test Item Value Reference Range Interpretation Comments HEMOGLOBIN A1c (test code = 65737) 7.5 % HEMOGLOBIN [id number] 00:00:00 Test Item Value Reference Range Interpretation Comments HEMOGLOBIN A1c (test code = 88880) 7.5 % HEMOGLOBIN [id number] 00:00:00 Test Item Value Reference Range Interpretation Comments HEMOGLOBIN A1c (test code = 46943) 7.5 % HEMOGLOBIN [id number] 00:00:00 Test Item Value Reference Range Interpretation Comments HEMOGLOBIN A1c (test code = 87031) 7.5 % HEMOGLOBIN [id number] 00:00:00 Test Item Value Reference Range Interpretation Comments HEMOGLOBIN A1c (test code = 74903) 7.5 % HEMOGLOBIN [id number] 00:00:00 Test Item Value Reference Range Interpretation Comments HEMOGLOBIN A1c (test code = 05836) 7.5 % HEMOGLOBIN [id number] 00:00:00 Test Item Value Reference Range Interpretation Comments HEMOGLOBIN A1c (test code = 36158) 7.5 % HEMOGLOBIN [id number] 00:00:00 Test Item Value Reference Range Interpretation Comments HEMOGLOBIN A1c (test code = 75078) 7.5 % HEMOGLOBIN [id number] 00:00:00 Test Item Value Reference Range Interpretation Comments HEMOGLOBIN A1c (test code = 78226) 7.5 % HEMOGLOBIN [id number] 00:00:00 Test Item Value Reference Range Interpretation Comments HEMOGLOBIN A1c (test code = 77824) 7.5 % HEMOGLOBIN [id number] 00:00:00 Test Item Value Reference Range Interpretation Comments HEMOGLOBIN A1c (test code = 79557) 7.5 % HEMOGLOBIN [id number] 00:00:00 Test Item Value Reference Range Interpretation Comments HEMOGLOBIN A1c (test code = 01413) 7.5 % HEMOGLOBIN [id number] 00:00:00 Test Item Value Reference Range Interpretation Comments HEMOGLOBIN A1c (test code = 46962) 7.5 % HEMOGLOBIN [id number] 00:00:00 Test Item Value Reference Range Interpretation Comments HEMOGLOBIN A1c (test code = 13729) 7.5 % HEMOGLOBIN [id number] 00:00:00 Test Item Value Reference Range Interpretation Comments HEMOGLOBIN A1c (test code = 71583) 7.5 % HEMOGLOBIN [id number] 00:00:00 Test Item Value Reference Range Interpretation Comments HEMOGLOBIN A1c (test code = 39485) 7.5 % HEMOGLOBIN [id number] 00:00:00 Test Item Value Reference Range Interpretation Comments HEMOGLOBIN A1c (test code = 86099) 7.5 % HEMOGLOBIN [id number] 00:00:00 Test Item Value Reference Range Interpretation Comments HEMOGLOBIN A1c (test code = 91027) 7.5 % HEMOGLOBIN [id number] 00:00:00 Test Item Value Reference Range Interpretation Comments HEMOGLOBIN A1c (test code = 71696) 7.5 % HEMOGLOBIN [id number] 00:00:00 Test Item Value Reference Range Interpretation Comments HEMOGLOBIN A1c (test code = 57873) 7.5 % TROPONIN [id number] 00:00:00 Test Item Value Reference Range Interpretation Comments TROPONIN T (test code = 4017) <0.010 UG/L TROPONIN [id number] 00:00:00 Test Item Value Reference Range Interpretation Comments TROPONIN T (test code = 4017) <0.010 UG/L TROPONIN [id number] 00:00:00 Test Item Value Reference Range Interpretation Comments TROPONIN T (test code = 4017) <0.010 UG/L TROPONIN [id number] 00:00:00 Test Item Value Reference Range Interpretation Comments TROPONIN T (test code = 4017) <0.010 UG/L TROPONIN [id number] 00:00:00 Test Item Value Reference Range Interpretation Comments TROPONIN T (test code = 4017) <0.010 UG/L TROPONIN [id number] 00:00:00 Test Item Value Reference Range Interpretation Comments TROPONIN T (test code = 4017) <0.010 UG/L TROPONIN [id number] 00:00:00 Test Item Value Reference Range Interpretation Comments TROPONIN T (test code = 4017) <0.010 UG/L TROPONIN [id number] 00:00:00 Test Item Value Reference Range Interpretation Comments TROPONIN T (test code = 4017) <0.010 UG/L TROPONIN [id number] 00:00:00 Test Item Value Reference Range Interpretation Comments TROPONIN T (test code = 4017) <0.010 UG/L TROPONIN [id number] 00:00:00 Test Item Value Reference Range Interpretation Comments TROPONIN T (test code = 4017) <0.010 UG/L TROPONIN [id number] 00:00:00 Test Item Value Reference Range Interpretation Comments TROPONIN T (test code = 4017) <0.010 UG/L TROPONIN [id number] 00:00:00 Test Item Value Reference Range Interpretation Comments TROPONIN T (test code = 4017) <0.010 UG/L TROPONIN [id number] 00:00:00 Test Item Value Reference Range Interpretation Comments TROPONIN T (test code = 4017) <0.010 UG/L TROPONIN [id number] 00:00:00 Test Item Value Reference Range Interpretation Comments TROPONIN T (test code = 4017) <0.010 UG/L COMPREHENSIVE METABOLIC [id number] 00:00:00 Test Item Value Reference Range Interpretation Comments GLUCOSE (test code = 2217) 68 MG/DL BUN (test code = 2208) 31 MG/DL CREATININE (test code = 2214) 1.10 MG/DL eGFR AMER. (test code 59 ML/MIN/1.73 = 75328) eGFR NON- AMER. (test 51 ML/MIN/1.73 code = 36879) CALC BUN/CREAT (test code = 28 RATIO [...] code = 2219) 9 U/L COMPREHENSIVE METABOLIC [id number] 00:00:00 Test Item Value Reference Range Interpretation Comments GLUCOSE (test code = 2217) 68 MG/DL BUN (test code = 2208) 31 MG/DL CREATININE (test code = 2214) 1.10 MG/DL eGFR AMER. (test code 59 ML/MIN/1.73 = 57658) eGFR NON- AMER. (test 51 ML/MIN/1.73 code = 33614) CALC BUN/CREAT (test code = 28 RATIO [...] = 220) AST (test code = 2218) 18 U/L ALT (test code = 2219) 9 U/L CBC W/AUTO [id number] 00:00:00 Test Item Value Reference Range Interpretation [...] code = 1015) 249 K/UL CBC W/AUTO [id number] 00:00:00 Test Item Value Reference Range Interpretation [...] code = 1015) 249 K/UL CBC W/AUTO [id number] 00:00:00 Test Item Value Reference Range Interpretation [...] (test code = 1015) 249 K/UL CK, [id number] 00:00:00 Test Item Value Reference Range Interpretation Comments CK, TOTAL (test code = 2013) 67 U/L CK, [id number] 00:00:00 Test Item Value Reference Range Interpretation Comments CK, TOTAL (test code = 2013) 67 U/L COMPREHENSIVE METABOLIC [id number] 00:00:00 Test Item Value Reference Range Interpretation Comments GLUCOSE (test code = 2217) 68 MG/DL BUN (test code = 2208) 31 MG/DL CREATININE (test code = 2214) 1.10 MG/DL eGFR AMER. (test code 59 ML/MIN/1.73 = 45738) eGFR NON- AMER. (test 51 ML/MIN/1.73 code = 91109) CALC BUN/CREAT (test code = 28 RATIO 2235) SODIUM (test code = 2231) 142 MEQ/L POTASSIUM (test code = 2228) 4.8 MEQ/L CHLORIDE (test code = 2215) 105 MEQ/L CARBON DIOXIDE (test code = 21 MEQ/L 2206) CALCIUM (test code = 2209) 9.6 MG/DL PROTEIN, TOTAL (test code = 7.4 G/DL 2229) ALBUMIN (test code = 2201) 4.5 G/DL CALC GLOBULIN (test code = 2.9 G/DL 2240) CALC A/G RATIO (test code = 1.6 RATIO 2234) BILIRUBIN, TOTAL (test code = 0.3 MG/DL 2207) ALKALINE PHOSPHATASE (test 80 U/L code = 2204) AST (test code = 2218) 18 U/L ALT (test code = 2219) 9 U/L COMPREHENSIVE METABOLIC [id number] 00:00:00 Test Item Value Reference Range Interpretation Comments GLUCOSE (test code = 2217) 68 MG/DL BUN (test code = 2208) 31 MG/DL CREATININE (test code = 2214) 1.10 MG/DL eGFR AMER. (test code 59 ML/MIN/1.73 = 67419) eGFR NON- AMER. (test 51 ML/MIN/1.73 code = 02658) CALC BUN/CREAT (test code = 28 RATIO [...] code = 2219) 9 U/L COMPREHENSIVE METABOLIC [id number] 00:00:00 Test Item Value Reference Range Interpretation Comments GLUCOSE (test code = 2217) 68 MG/DL BUN (test code = 2208) 31 MG/DL CREATININE (test code = 2214) 1.10 MG/DL eGFR AMER. (test code 59 ML/MIN/1.73 = 70057) eGFR NON- AMER. (test 51 ML/MIN/1.73 code = 76334) CALC BUN/CREAT (test code = 28 RATIO [...] code = 2219) 9 U/L CBC W/AUTO [id number] 00:00:00 Test Item Value Reference Range Interpretation [...] code = 1015) 249 K/UL CBC W/AUTO [id number] 00:00:00 Test Item Value Reference Range Interpretation [...] code = 1015) 249 K/UL CBC W/AUTO [id number] 00:00:00 Test Item Value Reference Range Interpretation [...] (test code = 1015) 249 K/UL CK, [id number] 00:00:00 Test Item Value Reference Range Interpretation Comments CK, TOTAL (test code = 2013) 67 U/L CK, [id number] 00:00:00 Test Item Value Reference Range Interpretation Comments CK, TOTAL (test code = 2013) 67 U/L CBC W/AUTO [id number] 00:00:00 Test Item Value Reference Range Interpretation [...] code = 1015) 249 K/UL CBC W/AUTO [id number] 00:00:00 Test Item Value Reference Range Interpretation [...] (test code = 1015) 249 K/UL CK, [id number] 00:00:00 Test Item Value Reference Range Interpretation Comments CK, TOTAL (test code = 2013) 67 U/L COMPREHENSIVE METABOLIC [id number] 00:00:00 Test Item Value Reference Range Interpretation Comments GLUCOSE (test code = 2217) 68 MG/DL BUN (test code = 2208) 31 MG/DL CREATININE (test code = 2214) 1.10 MG/DL eGFR AMER. (test code 59 ML/MIN/1.73 = 85036) eGFR NON- AMER. (test 51 ML/MIN/1.73 code = 10695) CALC BUN/CREAT (test code = 28 RATIO [...] code = 2219) 9 U/L COMPREHENSIVE METABOLIC [id number] 00:00:00 Test Item Value Reference Range Interpretation Comments GLUCOSE (test code = 2217) 68 MG/DL BUN (test code = 2208) 31 MG/DL CREATININE (test code = 2214) 1.10 MG/DL eGFR AMER. (test code 59 ML/MIN/1.73 = 62647) eGFR NON- AMER. (test 51 ML/MIN/1.73 code = 58090) CALC BUN/CREAT (test code = 28 RATIO [...] code = 2219) 9 U/L CBC W/AUTO [id number] 00:00:00 Test Item Value Reference Range Interpretation [...] code = 1015) 249 K/UL CBC W/AUTO [id number] 00:00:00 Test Item Value Reference Range Interpretation [...] code = 1015) 249 K/UL CBC W/AUTO [id number] 00:00:00 Test Item Value Reference Range Interpretation [...] (test code = 1015) 249 K/UL CK, [id number] 00:00:00 Test Item Value Reference Range Interpretation Comments CK, TOTAL (test code = 2013) 67 U/L CK, [id number] 00:00:00 Test Item Value Reference Range Interpretation Comments CK, TOTAL (test code = 2013) 67 U/L COMPREHENSIVE METABOLIC [id number] 00:00:00 Test Item Value Reference Range Interpretation Comments GLUCOSE (test code = 2217) 68 MG/DL BUN (test code = 2208) 31 MG/DL CREATININE (test code = 2214) 1.10 MG/DL eGFR AMER. (test code 59 ML/MIN/1.73 = 69519) eGFR NON- AMER. (test 51 ML/MIN/1.73 code = 18974) CALC BUN/CREAT (test code = 28 RATIO [...] code = 2219) 9 U/L COMPREHENSIVE METABOLIC [id number] 00:00:00 Test Item Value Reference Range Interpretation Comments GLUCOSE (test code = 2217) 68 MG/DL BUN (test code = 2208) 31 MG/DL CREATININE (test code = 2214) 1.10 MG/DL eGFR AMER. (test code 59 ML/MIN/1.73 = 55273) eGFR NON- AMER. (test 51 ML/MIN/1.73 code = 01547) CALC BUN/CREAT (test code = 28 RATIO 2235) SODIUM (test code = 2231) 142 MEQ/L POTASSIUM (test code = 2228) 4.8 MEQ/L CHLORIDE (test code = 2215) 105 MEQ/L CARBON DIOXIDE (test code = 21 MEQ/L 2205) CALCIUM (test code = 2209) 9.6 MG/DL PROTEIN, TOTAL (test code = 7.4 G/DL 9) ALBUMIN (test code = 2201) 4.5 G/DL CALC GLOBULIN (test code = 2.9 G/DL 0) CALC A/G RATIO (test code = 1.6 RATIO 2233) BILIRUBIN, TOTAL (test code = 0.3 MG/DL 2206) ALKALINE PHOSPHATASE (test 80 U/L code = 2204) AST (test code = 2218) 18 U/L ALT (test code = 2219) 9 U/L CBC W/AUTO [id number] 00:00:00 Test Item Value Reference Range Interpretation [...] code = 1015) 249 K/UL CBC W/AUTO [id number] 00:00:00 Test Item Value Reference Range Interpretation [...] code = 1015) 249 K/UL CBC W/AUTO [id number] 00:00:00 Test Item Value Reference Range Interpretation [...] (test code = 1015) 249 K/UL CK, [id number] 00:00:00 Test Item Value Reference Range Interpretation Comments CK, TOTAL (test code = 2013) 67 U/L CK, [id number] 00:00:00 Test Item Value Reference Range Interpretation Comments CK, TOTAL (test code = 2013) 67 U/L COMPREHENSIVE METABOLIC [id number] 00:00:00 Test Item Value Reference Range Interpretation Comments GLUCOSE (test code = 2217) 68 MG/DL BUN (test code = 2208) 31 MG/DL CREATININE (test code = 2214) 1.10 MG/DL eGFR AMER. (test code 59 ML/MIN/1.73 = 24757) eGFR NON- AMER. (test 51 ML/MIN/1.73 code = 34209) CALC BUN/CREAT (test code = 28 RATIO 2235) SODIUM (test code = 2231) 142 MEQ/L POTASSIUM (test code = 2228) 4.8 MEQ/L CHLORIDE (test code = 2215) 105 MEQ/L CARBON DIOXIDE (test code = 21 MEQ/L 2206) CALCIUM (test code = 2209) 9.6 MG/DL PROTEIN, TOTAL (test code = 7.4 G/DL 2229) ALBUMIN (test code = 2201) 4.5 G/DL CALC GLOBULIN (test code = 2.9 G/DL 2240) CALC A/G RATIO (test code = 1.6 RATIO 2234) BILIRUBIN, TOTAL (test code = 0.3 MG/DL 2207) ALKALINE PHOSPHATASE (test 80 U/L code = 2204) AST (test code = 2218) 18 U/L ALT (test code = 2219) 9 U/L CBC W/AUTO [id number] 00:00:00 Test Item Value Reference Range Interpretation [...] code = 1015) 249 K/UL CBC W/AUTO [id number] 00:00:00 Test Item Value Reference Range Interpretation [...] (test code = 1015) 249 K/UL CK, [id number] 00:00:00 Test Item Value Reference Range Interpretation Comments CK, TOTAL (test code = 2013) 67 U/L COMPREHENSIVE METABOLIC [id number] 00:00:00 Test Item Value Reference Range Interpretation Comments GLUCOSE (test code = 2217) 68 MG/DL BUN (test code = 2208) 31 MG/DL CREATININE (test code = 2214) 1.10 MG/DL eGFR AMER. (test code 59 ML/MIN/1.73 = 01618) eGFR NON- AMER. (test 51 ML/MIN/1.73 code = 74809) CALC BUN/CREAT (test code = 28 RATIO [...] code = 2219) 9 U/L COMPREHENSIVE METABOLIC [id number] 00:00:00 Test Item Value Reference Range Interpretation Comments GLUCOSE (test code = 2217) 68 MG/DL BUN (test code = 2208) 31 MG/DL CREATININE (test code = 2214) 1.10 MG/DL eGFR AMER. (test code 59 ML/MIN/1.73 = 43172) eGFR NON- AMER. (test 51 ML/MIN/1.73 code = 50463) CALC BUN/CREAT (test code = 28 RATIO 2235) SODIUM (test code = 2231) 142 MEQ/L POTASSIUM (test code = 2228) 4.8 MEQ/L CHLORIDE (test code = 2215) 105 MEQ/L CARBON DIOXIDE (test code = 21 MEQ/L 2206) CALCIUM (test code = 2209) 9.6 MG/DL PROTEIN, TOTAL (test code = 7.4 G/DL 2229) ALBUMIN (test code = 2201) 4.5 G/DL CALC GLOBULIN (test code = 2.9 G/DL 2240) CALC A/G RATIO (test code = 1.6 RATIO 2234) BILIRUBIN, TOTAL (test code = 0.3 MG/DL 2206) ALKALINE PHOSPHATASE (test 80 U/L code = 2204) AST (test code = 2218) 18 U/L ALT (test code = 2219) 9 U/L CBC W/AUTO [id number] 00:00:00 Test Item Value Reference Range Interpretation [...] code = 1015) 249 K/UL CBC W/AUTO [id number] 00:00:00 Test Item Value Reference Range Interpretation [...] code = 1015) 249 K/UL CBC W/AUTO [id number] 00:00:00 Test Item Value Reference Range Interpretation [...] (test code = 1015) 249 K/UL CK, [id number] 00:00:00 Test Item Value Reference Range Interpretation Comments CK, TOTAL (test code = 2013) 67 U/L CK, [id number] 00:00:00 Test Item Value Reference Range Interpretation Comments CK, TOTAL (test code = 2013) 67 U/L COMPREHENSIVE METABOLIC [id number] 00:00:00 Test Item Value Reference Range Interpretation Comments GLUCOSE (test code = 2217) 68 MG/DL BUN (test code = 2208) 31 MG/DL CREATININE (test code = 2214) 1.10 MG/DL eGFR AMER. (test code 59 ML/MIN/1.73 = 39150) eGFR NON- AMER. (test 51 ML/MIN/1.73 code = 88796) CALC BUN/CREAT (test code = 28 RATIO [...] code = 2219) 9 U/L COMPREHENSIVE METABOLIC [id number] 00:00:00 Test Item Value Reference Range Interpretation Comments GLUCOSE (test code = 2217) 68 MG/DL BUN (test code = 2208) 31 MG/DL CREATININE (test code = 2214) 1.10 MG/DL eGFR AMER. (test code 59 ML/MIN/1.73 = 38506) eGFR NON- AMER. (test 51 ML/MIN/1.73 code = 84261) CALC BUN/CREAT (test code = 28 RATIO [...] code = 2219) 9 U/L CBC W/AUTO [id number] 00:00:00 Test Item Value Reference Range Interpretation [...] code = 1015) 249 K/UL CBC W/AUTO [id number] 00:00:00 Test Item Value Reference Range Interpretation [...] code = 1015) 249 K/UL CBC W/AUTO [id number] 00:00:00 Test Item Value Reference Range Interpretation [...] (test code = 1015) 249 K/UL CK, [id number] 00:00:00 Test Item Value Reference Range Interpretation Comments CK, TOTAL (test code = 2013) 67 U/L CK, [id number] 00:00:00 Test Item Value Reference Range Interpretation Comments CK, TOTAL (test code = 2013) 67 U/L [id number] 00:00:00 Test Item Value Reference Range Interpretation Comments TSH, THIRD GENERATION (test code 3.230 UIU/ML = 2821) [id number] 00:00:00 Test Item Value Reference Range Interpretation Comments TSH, THIRD GENERATION (test code 3.230 UIU/ML = 2821) [id number] 00:00:00 Test Item Value Reference Range Interpretation Comments TSH, THIRD GENERATION (test code 3.230 UIU/ML = 2821) CBC W/AUTO [id number] 00:00:00 Test Item Value Reference Range Interpretation [...] code = 1015) 277 K/UL CBC W/AUTO [id number] 00:00:00 Test Item Value Reference Range Interpretation [...] code = 1015) 277 K/UL CBC W/AUTO [id number] 00:00:00 Test Item Value Reference Range Interpretation [...] (test code = 1015) 277 K/UL VITAMIN [id number] 00:00:00 Test Item Value Reference Range Interpretation Comments VITAMIN B-12 (test code = 2840) 528 PG/ML VITAMIN [id number] 00:00:00 Test Item Value Reference Range Interpretation Comments VITAMIN B-12 (test code = 2840) 528 PG/ML VITAMIN [id number] 00:00:00 Test Item Value Reference Range Interpretation Comments VITAMIN B-12 (test code = 2840) 528 PG/ML HEMOGLOBIN [id number] 00:00:00 Test Item Value Reference Range Interpretation Comments HEMOGLOBIN A1c (test code = 84753) 7.4 % HEMOGLOBIN [id number] 00:00:00 Test Item Value Reference Range Interpretation Comments HEMOGLOBIN A1c (test code = 32170) 7.4 % HEMOGLOBIN [id number] 00:00:00 Test Item Value Reference Range Interpretation Comments HEMOGLOBIN A1c (test code = 28782) 7.4 % LIPID PANEL WITH REFLEX DIRECT [id number] 00:00:00 Test Item Value Reference Range Interpretation Comments CHOLESTEROL (test code = 2210) 211 MG/DL TRIGLYCERIDES (test code = 2232) 257 MG/DL HDL CHOLESTEROL (test code = 2220) 54 MG/DL CALC LDL CHOL (test code = 2237) 106 MG/DL RISK RATIO LDL/HDL (test code = 1.96 RATIO 2238) LIPID PANEL WITH REFLEX DIRECT [id number] 00:00:00 Test Item Value Reference Range Interpretation Comments CHOLESTEROL (test code = 2210) 211 MG/DL TRIGLYCERIDES (test code = 2232) 257 MG/DL HDL CHOLESTEROL (test code = 2220) 54 MG/DL CALC LDL CHOL (test code = 2237) 106 MG/DL RISK RATIO LDL/HDL (test code = 1.96 RATIO 2238) COMPREHENSIVE METABOLIC [id number] 00:00:00 Test Item Value Reference Range Interpretation Comments GLUCOSE (test code = 2217) 222 MG/DL BUN (test code = 2208) 30 MG/DL CREATININE (test code = 2214) 1.26 MG/DL eGFR AMER. (test code 50 ML/MIN/1.73 = 92026) eGFR NON- AMER. (test 43 ML/MIN/1.73 code = 84717) CALC BUN/CREAT (test code = 24 RATIO [...] code = 2219) 10 U/L COMPREHENSIVE METABOLIC [id number] 00:00:00 Test Item Value Reference Range Interpretation Comments GLUCOSE (test code = 2217) 222 MG/DL BUN (test code = 2208) 30 MG/DL CREATININE (test code = 2214) 1.26 MG/DL eGFR AMER. (test code 50 ML/MIN/1.73 = 49785) eGFR NON- AMER. (test 43 ML/MIN/1.73 code = 88486) CALC BUN/CREAT (test code = 24 RATIO [...] ALT (test code = 2219) 10 U/L [id number] 00:00:00 Test Item Value Reference Range Interpretation Comments TSH, THIRD GENERATION (test code 3.230 UIU/ML = 2821) [id number] 00:00:00 Test Item Value Reference Range Interpretation Comments TSH, THIRD GENERATION (test code 3.230 UIU/ML = 2821) [id number] 00:00:00 Test Item Value Reference Range Interpretation Comments TSH, THIRD GENERATION (test code 3.230 UIU/ML = 2821) [id number] 00:00:00 Test Item Value Reference Range Interpretation Comments TSH, THIRD GENERATION (test code 3.230 UIU/ML = 2821) [id number] 00:00:00 Test Item Value Reference Range Interpretation Comments TSH, THIRD GENERATION (test code 3.230 UIU/ML = 2821) CBC W/AUTO [id number] 00:00:00 Test Item Value Reference Range Interpretation [...] code = 1015) 277 K/UL CBC W/AUTO [id number] 00:00:00 Test Item Value Reference Range Interpretation [...] code = 1015) 277 K/UL CBC W/AUTO [id number] 00:00:00 Test Item Value Reference Range Interpretation [...] (test code = 1015) 277 K/UL VITAMIN [id number] 00:00:00 Test Item Value Reference Range Interpretation Comments VITAMIN B-12 (test code = 2840) 528 PG/ML VITAMIN [id number] 00:00:00 Test Item Value Reference Range Interpretation Comments VITAMIN B-12 (test code = 2840) 528 PG/ML VITAMIN [id number] 00:00:00 Test Item Value Reference Range Interpretation Comments VITAMIN B-12 (test code = 2840) 528 PG/ML HEMOGLOBIN [id number] 00:00:00 Test Item Value Reference Range Interpretation Comments HEMOGLOBIN A1c (test code = 99602) 7.4 % HEMOGLOBIN [id number] 00:00:00 Test Item Value Reference Range Interpretation Comments HEMOGLOBIN A1c (test code = 44381) 7.4 % HEMOGLOBIN [id number] 00:00:00 Test Item Value Reference Range Interpretation Comments HEMOGLOBIN A1c (test code = 97185) 7.4 % LIPID PANEL WITH REFLEX DIRECT [id number] 00:00:00 Test Item Value Reference Range Interpretation Comments CHOLESTEROL (test code = 2210) 211 MG/DL TRIGLYCERIDES (test code = 2232) 257 MG/DL HDL CHOLESTEROL (test code = 2220) 54 MG/DL CALC LDL CHOL (test code = 2237) 106 MG/DL RISK RATIO LDL/HDL (test code = 1.96 RATIO 2238) LIPID PANEL WITH REFLEX DIRECT [id number] 00:00:00 Test Item Value Reference Range Interpretation Comments CHOLESTEROL (test code = 2210) 211 MG/DL TRIGLYCERIDES (test code = 2232) 257 MG/DL HDL CHOLESTEROL (test code = 2220) 54 MG/DL CALC LDL CHOL (test code = 2237) 106 MG/DL RISK RATIO LDL/HDL (test code = 1.96 RATIO 2238) COMPREHENSIVE METABOLIC [id number] 00:00:00 Test Item Value Reference Range Interpretation Comments GLUCOSE (test code = 2217) 222 MG/DL BUN (test code = 2208) 30 MG/DL CREATININE (test code = 2214) 1.26 MG/DL eGFR AMER. (test code 50 ML/MIN/1.73 = 68181) eGFR NON- AMER. (test 43 ML/MIN/1.73 code = 62148) CALC BUN/CREAT (test code = 24 RATIO 2235) SODIUM (test code = 2231) 139 MEQ/L POTASSIUM (test code = 2228) 4.7 MEQ/L CHLORIDE (test code = 2215) 101 MEQ/L CARBON DIOXIDE (test code = 20 MEQ/L 2206) CALCIUM (test code = 2209) 9.2 MG/DL PROTEIN, TOTAL (test code = 7.7 G/DL 222) ALBUMIN (test code = 2201) 4.4 G/DL CALC GLOBULIN (test code = 3.3 G/DL 2240) CALC A/G RATIO (test code = 1.3 RATIO 2234) BILIRUBIN, TOTAL (test code = <0.2 MG/DL 2206) ALKALINE PHOSPHATASE (test 92 U/L code = 220) AST (test code = 2218) 15 U/L ALT (test code = 2219) 10 U/L COMPREHENSIVE METABOLIC [id number] 00:00:00 Test Item Value Reference Range Interpretation Comments GLUCOSE (test code = 2217) 222 MG/DL BUN (test code = 2208) 30 MG/DL CREATININE (test code = 2214) 1.26 MG/DL eGFR AMER. (test code 50 ML/MIN/1.73 = 95916) eGFR NON- AMER. (test 43 ML/MIN/1.73 code = 27697) CALC BUN/CREAT (test code = 24 RATIO [...] code = 2219) 10 U/L CBC W/AUTO [id number] 00:00:00 Test Item Value Reference Range Interpretation [...] code = 1015) 277 K/UL CBC W/AUTO [id number] 00:00:00 Test Item Value Reference Range Interpretation [...] (test code = 1015) 277 K/UL VITAMIN [id number] 00:00:00 Test Item Value Reference Range Interpretation Comments VITAMIN B-12 (test code = 2840) 528 PG/ML VITAMIN [id number] 00:00:00 Test Item Value Reference Range Interpretation Comments VITAMIN B-12 (test code = 2840) 528 PG/ML [id number] 00:00:00 Test Item Value Reference Range Interpretation Comments TSH, THIRD GENERATION (test code 3.230 UIU/ML = 2821) [id number] 00:00:00 Test Item Value Reference Range Interpretation Comments TSH, THIRD GENERATION (test code 3.230 UIU/ML = 2821) [id number] 00:00:00 Test Item Value Reference Range Interpretation Comments TSH, THIRD GENERATION (test code 3.230 UIU/ML = 2821) HEMOGLOBIN [id number] 00:00:00 Test Item Value Reference Range Interpretation Comments HEMOGLOBIN A1c (test code = 78191) 7.4 % CBC W/AUTO [id number] 00:00:00 Test Item Value Reference Range Interpretation [...] code = 1015) 277 K/UL CBC W/AUTO [id number] 00:00:00 Test Item Value Reference Range Interpretation [...] code = 1015) 277 K/UL CBC W/AUTO [id number] 00:00:00 Test Item Value Reference Range Interpretation [...] COUNT (test code = 1015) 277 K/UL HEMOGLOBIN [id number] 00:00:00 Test Item Value Reference Range Interpretation Comments HEMOGLOBIN A1c (test code = 82463) 7.4 % VITAMIN [id number] 00:00:00 Test Item Value Reference Range Interpretation Comments VITAMIN B-12 (test code = 2840) 528 PG/ML VITAMIN [id number] 00:00:00 Test Item Value Reference Range Interpretation Comments VITAMIN B-12 (test code = 2840) 528 PG/ML VITAMIN [id number] 00:00:00 Test Item Value Reference Range Interpretation Comments VITAMIN B-12 (test code = 2840) 528 PG/ML HEMOGLOBIN [id number] 00:00:00 Test Item Value Reference Range Interpretation Comments HEMOGLOBIN A1c (test code = 16511) 7.4 % HEMOGLOBIN [id number] 00:00:00 Test Item Value Reference Range Interpretation Comments HEMOGLOBIN A1c (test code = 01298) 7.4 % HEMOGLOBIN [id number] 00:00:00 Test Item Value Reference Range Interpretation Comments HEMOGLOBIN A1c (test code = 17656) 7.4 % LIPID PANEL WITH REFLEX DIRECT [id number] 00:00:00 Test Item Value Reference Range Interpretation Comments CHOLESTEROL (test code = 2210) 211 MG/DL TRIGLYCERIDES (test code = 2232) 257 MG/DL HDL CHOLESTEROL (test code = 2220) 54 MG/DL CALC LDL CHOL (test code = 2237) 106 MG/DL RISK RATIO LDL/HDL (test code = 1.96 RATIO 2238) LIPID PANEL WITH REFLEX DIRECT [id number] 00:00:00 Test Item Value Reference Range Interpretation Comments CHOLESTEROL (test code = 2210) 211 MG/DL TRIGLYCERIDES (test code = 2232) 257 MG/DL HDL CHOLESTEROL (test code = 2220) 54 MG/DL CALC LDL CHOL (test code = 2237) 106 MG/DL RISK RATIO LDL/HDL (test code = 1.96 RATIO 2238) LIPID PANEL WITH REFLEX DIRECT [id number] 00:00:00 Test Item Value Reference Range Interpretation Comments CHOLESTEROL (test code = 2210) 211 MG/DL TRIGLYCERIDES (test code = 2232) 257 MG/DL HDL CHOLESTEROL (test code = 2220) 54 MG/DL CALC LDL CHOL (test code = 2237) 106 MG/DL RISK RATIO LDL/HDL (test code = 1.96 RATIO 2238) COMPREHENSIVE METABOLIC [id number] 00:00:00 Test Item Value Reference Range Interpretation Comments GLUCOSE (test code = 2217) 222 MG/DL BUN (test code = 2208) 30 MG/DL CREATININE (test code = 2214) 1.26 MG/DL eGFR AMER. (test code 50 ML/MIN/1.73 = 56965) eGFR NON- AMER. (test 43 ML/MIN/1.73 code = 67278) CALC BUN/CREAT (test code = 24 RATIO 2235) SODIUM (test code = 2231) 139 MEQ/L POTASSIUM (test code = 2228) 4.7 MEQ/L CHLORIDE (test code = 2215) 101 MEQ/L CARBON DIOXIDE (test code = 20 MEQ/L 2205) CALCIUM (test code = 2209) 9.2 MG/DL PROTEIN, TOTAL (test code = 7.7 G/DL 2228) ALBUMIN (test code = 220) 4.4 G/DL CALC GLOBULIN (test code = 3.3 G/DL 2239) CALC A/G RATIO (test code = 1.3 RATIO 2234) BILIRUBIN, TOTAL (test code = <0.2 MG/DL 2207) ALKALINE PHOSPHATASE (test 92 U/L code = 2204) AST (test code = 2218) 15 U/L ALT (test code = 2219) 10 U/L COMPREHENSIVE METABOLIC [id number] 00:00:00 Test Item Value Reference Range Interpretation Comments GLUCOSE (test code = 2217) 222 MG/DL BUN (test code = 2208) 30 MG/DL CREATININE (test code = 2214) 1.26 MG/DL eGFR AMER. (test code 50 ML/MIN/1.73 = 58795) eGFR NON- AMER. (test 43 ML/MIN/1.73 code = 58409) CALC BUN/CREAT (test code = 24 RATIO [...] code = 2219) 10 U/L COMPREHENSIVE METABOLIC [id number] 00:00:00 Test Item Value Reference Range Interpretation Comments GLUCOSE (test code = 2217) 222 MG/DL BUN (test code = 2208) 30 MG/DL CREATININE (test code = 2214) 1.26 MG/DL eGFR AMER. (test code 50 ML/MIN/1.73 = 53047) eGFR NON- AMER. (test 43 ML/MIN/1.73 code = 95567) CALC BUN/CREAT (test code = 24 RATIO 2235) SODIUM (test code = 2231) 139 MEQ/L POTASSIUM (test code = 2228) 4.7 MEQ/L CHLORIDE (test code = 2215) 101 MEQ/L CARBON DIOXIDE (test code = 20 MEQ/L 2206) CALCIUM (test code = 2209) 9.2 MG/DL PROTEIN, TOTAL (test code = 7.7 G/DL 222) ALBUMIN (test code = 2201) 4.4 G/DL CALC GLOBULIN (test code = 3.3 G/DL 2240) CALC A/G RATIO (test code = 1.3 RATIO 2234) BILIRUBIN, TOTAL (test code = <0.2 MG/DL 2206) ALKALINE PHOSPHATASE (test 92 U/L code = 2204) AST (test code = 2218) 15 U/L ALT (test code = 2219) 10 U/L [id number] 00:00:00 Test Item Value Reference Range Interpretation Comments TSH, THIRD GENERATION (test code 3.230 UIU/ML = 2821) [id number] 00:00:00 Test Item Value Reference Range Interpretation Comments TSH, THIRD GENERATION (test code 3.230 UIU/ML = 2821) [id number] 00:00:00 Test Item Value Reference Range Interpretation Comments TSH, THIRD GENERATION (test code 3.230 UIU/ML = 2821) CBC W/AUTO [id number] 00:00:00 Test Item Value Reference Range Interpretation [...] code = 1015) 277 K/UL CBC W/AUTO [id number] 00:00:00 Test Item Value Reference Range Interpretation [...] code = 1015) 277 K/UL CBC W/AUTO [id number] 00:00:00 Test Item Value Reference Range Interpretation [...] (test code = 1015) 277 K/UL VITAMIN [id number] 00:00:00 Test Item Value Reference Range Interpretation Comments VITAMIN B-12 (test code = 2840) 528 PG/ML VITAMIN [id number] 00:00:00 Test Item Value Reference Range Interpretation Comments VITAMIN B-12 (test code = 2840) 528 PG/ML VITAMIN [id number] 00:00:00 Test Item Value Reference Range Interpretation Comments VITAMIN B-12 (test code = 2840) 528 PG/ML HEMOGLOBIN [id number] 00:00:00 Test Item Value Reference Range Interpretation Comments HEMOGLOBIN A1c (test code = 85970) 7.4 % HEMOGLOBIN [id number] 00:00:00 Test Item Value Reference Range Interpretation Comments HEMOGLOBIN A1c (test code = 37502) 7.4 % HEMOGLOBIN [id number] 00:00:00 Test Item Value Reference Range Interpretation Comments HEMOGLOBIN A1c (test code = 18914) 7.4 % LIPID PANEL WITH REFLEX DIRECT [id number] 00:00:00 Test Item Value Reference Range Interpretation Comments CHOLESTEROL (test code = 2210) 211 MG/DL TRIGLYCERIDES (test code = 2232) 257 MG/DL HDL CHOLESTEROL (test code = 2220) 54 MG/DL CALC LDL CHOL (test code = 2237) 106 MG/DL RISK RATIO LDL/HDL (test code = 1.96 RATIO 2238) LIPID PANEL WITH REFLEX DIRECT [id number] 00:00:00 Test Item Value Reference Range Interpretation Comments CHOLESTEROL (test code = 2210) 211 MG/DL TRIGLYCERIDES (test code = 2232) 257 MG/DL HDL CHOLESTEROL (test code = 2220) 54 MG/DL CALC LDL CHOL (test code = 2237) 106 MG/DL RISK RATIO LDL/HDL (test code = 1.96 RATIO 2238) COMPREHENSIVE METABOLIC [id number] 00:00:00 Test Item Value Reference Range Interpretation Comments GLUCOSE (test code = 2217) 222 MG/DL BUN (test code = 2208) 30 MG/DL CREATININE (test code = 2214) 1.26 MG/DL eGFR AMER. (test code 50 ML/MIN/1.73 = 81183) eGFR NON- AMER. (test 43 ML/MIN/1.73 code = 55582) CALC BUN/CREAT (test code = 24 RATIO 2235) SODIUM (test code = 2231) 139 MEQ/L POTASSIUM (test code = 2228) 4.7 MEQ/L CHLORIDE (test code = 2215) 101 MEQ/L CARBON DIOXIDE (test code = 20 MEQ/L 2205) CALCIUM (test code = 2209) 9.2 MG/DL PROTEIN, TOTAL (test code = 7.7 G/DL 2228) ALBUMIN (test code = 220) 4.4 G/DL CALC GLOBULIN (test code = 3.3 G/DL 2239) CALC A/G RATIO (test code = 1.3 RATIO 2234) BILIRUBIN, TOTAL (test code = <0.2 MG/DL 2206) ALKALINE PHOSPHATASE (test 92 U/L code = 2204) AST (test code = 2218) 15 U/L ALT (test code = 2219) 10 U/L COMPREHENSIVE METABOLIC [id number] 00:00:00 Test Item Value Reference Range Interpretation Comments GLUCOSE (test code = 2217) 222 MG/DL BUN (test code = 2208) 30 MG/DL CREATININE (test code = 2214) 1.26 MG/DL eGFR AMER. (test code 50 ML/MIN/1.73 = 82086) eGFR NON- AMER. (test 43 ML/MIN/1.73 code = 73836) CALC BUN/CREAT (test code = 24 RATIO [...] ALT (test code = 2219) 10 U/L [id number] 00:00:00 Test Item Value Reference Range Interpretation Comments TSH, THIRD GENERATION (test code 3.230 UIU/ML = 2821) [id number] 00:00:00 Test Item Value Reference Range Interpretation Comments TSH, THIRD GENERATION (test code 3.230 UIU/ML = 2821) CBC W/AUTO [id number] 00:00:00 Test Item Value Reference Range Interpretation [...] code = 1015) 277 K/UL CBC W/AUTO [id number] 00:00:00 Test Item Value Reference Range Interpretation [...] (test code = 1015) 277 K/UL VITAMIN [id number] 00:00:00 Test Item Value Reference Range Interpretation Comments VITAMIN B-12 (test code = 2840) 528 PG/ML VITAMIN [id number] 00:00:00 Test Item Value Reference Range Interpretation Comments VITAMIN B-12 (test code = 2840) 528 PG/ML HEMOGLOBIN [id number] 00:00:00 Test Item Value Reference Range Interpretation Comments HEMOGLOBIN A1c (test code = 24847) 7.4 % HEMOGLOBIN [id number] 00:00:00 Test Item Value Reference Range Interpretation Comments HEMOGLOBIN A1c (test code = 81653) 7.4 % LIPID PANEL WITH REFLEX DIRECT [id number] 00:00:00 Test Item Value Reference Range Interpretation Comments CHOLESTEROL (test code = 2210) 211 MG/DL TRIGLYCERIDES (test code = 2232) 257 MG/DL HDL CHOLESTEROL (test code = 2220) 54 MG/DL CALC LDL CHOL (test code = 2237) 106 MG/DL RISK RATIO LDL/HDL (test code = 1.96 RATIO 2238) COMPREHENSIVE METABOLIC [id number] 00:00:00 Test Item Value Reference Range Interpretation Comments GLUCOSE (test code = 2217) 222 MG/DL BUN (test code = 2208) 30 MG/DL CREATININE (test code = 2214) 1.26 MG/DL eGFR AMER. (test code 50 ML/MIN/1.73 = 27466) eGFR NON- AMER. (test 43 ML/MIN/1.73 code = 33617) CALC BUN/CREAT (test code = 24 RATIO [...] ALT (test code = 2219) 10 U/L [id number] 00:00:00 Test Item Value Reference Range Interpretation Comments TSH, THIRD GENERATION (test code 3.230 UIU/ML = 2821) [id number] 00:00:00 Test Item Value Reference Range Interpretation Comments TSH, THIRD GENERATION (test code 3.230 UIU/ML = 2821) [id number] 00:00:00 Test Item Value Reference Range Interpretation Comments TSH, THIRD GENERATION (test code 3.230 UIU/ML = 2821) CBC W/AUTO [id number] 00:00:00 Test Item Value Reference Range Interpretation [...] code = 1015) 277 K/UL CBC W/AUTO [id number] 00:00:00 Test Item Value Reference Range Interpretation [...] code = 1015) 277 K/UL CBC W/AUTO [id number] 00:00:00 Test Item Value Reference Range Interpretation [...] (test code = 1015) 277 K/UL VITAMIN [id number] 00:00:00 Test Item Value Reference Range Interpretation Comments VITAMIN B-12 (test code = 2840) 528 PG/ML VITAMIN [id number] 00:00:00 Test Item Value Reference Range Interpretation Comments VITAMIN B-12 (test code = 2840) 528 PG/ML VITAMIN [id number] 00:00:00 Test Item Value Reference Range Interpretation Comments VITAMIN B-12 (test code = 2840) 528 PG/ML HEMOGLOBIN [id number] 00:00:00 Test Item Value Reference Range Interpretation Comments HEMOGLOBIN A1c (test code = 74901) 7.4 % HEMOGLOBIN [id number] 00:00:00 Test Item Value Reference Range Interpretation Comments HEMOGLOBIN A1c (test code = 38055) 7.4 % HEMOGLOBIN [id number] 00:00:00 Test Item Value Reference Range Interpretation Comments HEMOGLOBIN A1c (test code = 10112) 7.4 % LIPID PANEL WITH REFLEX DIRECT [id number] 00:00:00 Test Item Value Reference Range Interpretation Comments CHOLESTEROL (test code = 2210) 211 MG/DL TRIGLYCERIDES (test code = 2232) 257 MG/DL HDL CHOLESTEROL (test code = 2220) 54 MG/DL CALC LDL CHOL (test code = 2237) 106 MG/DL RISK RATIO LDL/HDL (test code = 1.96 RATIO 2238) LIPID PANEL WITH REFLEX DIRECT [id number] 00:00:00 Test Item Value Reference Range Interpretation Comments CHOLESTEROL (test code = 2210) 211 MG/DL TRIGLYCERIDES (test code = 2232) 257 MG/DL HDL CHOLESTEROL (test code = 2220) 54 MG/DL CALC LDL CHOL (test code = 2237) 106 MG/DL RISK RATIO LDL/HDL (test code = 1.96 RATIO 2238) COMPREHENSIVE METABOLIC [id number] 00:00:00 Test Item Value Reference Range Interpretation Comments GLUCOSE (test code = 2217) 222 MG/DL BUN (test code = 2208) 30 MG/DL CREATININE (test code = 2214) 1.26 MG/DL eGFR AMER. (test code 50 ML/MIN/1.73 = 83884) eGFR NON- AMER. (test 43 ML/MIN/1.73 code = 55698) CALC BUN/CREAT (test code = 24 RATIO [...] code = 2219) 10 U/L COMPREHENSIVE METABOLIC [id number] 00:00:00 Test Item Value Reference Range Interpretation Comments GLUCOSE (test code = 2217) 222 MG/DL BUN (test code = 2208) 30 MG/DL CREATININE (test code = 2214) 1.26 MG/DL eGFR AMER. (test code 50 ML/MIN/1.73 = 89319) eGFR NON- AMER. (test 43 ML/MIN/1.73 code = 21447) CALC BUN/CREAT (test code = 24 RATIO [...] ALT (test code = 2219) 10 U/L [id number] 00:00:00 Test Item Value Reference Range Interpretation Comments TSH, THIRD GENERATION (test code 3.230 UIU/ML = 2821) [id number] 00:00:00 Test Item Value Reference Range Interpretation Comments TSH, THIRD GENERATION (test code 3.230 UIU/ML = 2821) [id number] 00:00:00 Test Item Value Reference Range Interpretation Comments TSH, THIRD GENERATION (test code 3.230 UIU/ML = 2821) CBC W/AUTO [id number] 00:00:00 Test Item Value Reference Range Interpretation [...] code = 1015) 277 K/UL CBC W/AUTO [id number] 00:00:00 Test Item Value Reference Range Interpretation [...] code = 1015) 277 K/UL CBC W/AUTO [id number] 00:00:00 Test Item Value Reference Range Interpretation [...] (test code = 1015) 277 K/UL VITAMIN [id number] 00:00:00 Test Item Value Reference Range Interpretation Comments VITAMIN B-12 (test code = 2840) 528 PG/ML VITAMIN [id number] 00:00:00 Test Item Value Reference Range Interpretation Comments VITAMIN B-12 (test code = 2840) 528 PG/ML VITAMIN [id number] 00:00:00 Test Item Value Reference Range Interpretation Comments VITAMIN B-12 (test code = 2840) 528 PG/ML HEMOGLOBIN [id number] 00:00:00 Test Item Value Reference Range Interpretation Comments HEMOGLOBIN A1c (test code = 09251) 7.4 % HEMOGLOBIN [id number] 00:00:00 Test Item Value Reference Range Interpretation Comments HEMOGLOBIN A1c (test code = 53960) 7.4 % HEMOGLOBIN [id number] 00:00:00 Test Item Value Reference Range Interpretation Comments HEMOGLOBIN A1c (test code = 93114) 7.4 % LIPID PANEL WITH REFLEX DIRECT [id number] 00:00:00 Test Item Value Reference Range Interpretation Comments CHOLESTEROL (test code = 2210) 211 MG/DL TRIGLYCERIDES (test code = 2232) 257 MG/DL HDL CHOLESTEROL (test code = 2220) 54 MG/DL CALC LDL CHOL (test code = 2237) 106 MG/DL RISK RATIO LDL/HDL (test code = 1.96 RATIO 2238) LIPID PANEL WITH REFLEX DIRECT [id number] 00:00:00 Test Item Value Reference Range Interpretation Comments CHOLESTEROL (test code = 2210) 211 MG/DL TRIGLYCERIDES (test code = 2232) 257 MG/DL HDL CHOLESTEROL (test code = 2220) 54 MG/DL CALC LDL CHOL (test code = 2237) 106 MG/DL RISK RATIO LDL/HDL (test code = 1.96 RATIO 2238) COMPREHENSIVE METABOLIC [id number] 00:00:00 Test Item Value Reference Range Interpretation Comments GLUCOSE (test code = 2217) 222 MG/DL BUN (test code = 2208) 30 MG/DL CREATININE (test code = 2214) 1.26 MG/DL eGFR AMER. (test code 50 ML/MIN/1.73 = 07376) eGFR NON- AMER. (test 43 ML/MIN/1.73 code = 96998) CALC BUN/CREAT (test code = 24 RATIO [...] code = 2219) 10 U/L COMPREHENSIVE METABOLIC [id number] 00:00:00 Test Item Value Reference Range Interpretation Comments GLUCOSE (test code = 2217) 222 MG/DL BUN (test code = 2208) 30 MG/DL CREATININE (test code = 2214) 1.26 MG/DL eGFR AMER. (test code 50 ML/MIN/1.73 = 65026) eGFR NON- AMER. (test 43 ML/MIN/1.73 code = 50437) CALC BUN/CREAT (test code = 24 RATIO [...] Range Interpretation Comments NOTE: (test code = 96511) UNLABELLED SPECIMEN [ADDED]2019-05-20 00:00:00 Test Item Value Reference Range Interpretation Comments NOTE: (test code = 29849) UNLABELLED SPECIMEN [ADDED]2019-05-20 00:00:00 Test Item Value Reference Range Interpretation Comments NOTE: (test code = 67672) UNLABELLED SPECIMEN [ADDED]2019-05-20 00:00:00 Test Item Value Reference Range Interpretation Comments NOTE: (test code = 87282) UNLABELLED SPECIMEN [ADDED]2019-05-20 00:00:00 Test Item Value Reference Range Interpretation Comments NOTE: (test code = 32745) UNLABELLED SPECIMEN [ADDED]2019-05-20 00:00:00 Test Item Value Reference Range Interpretation Comments NOTE: (test code = 74573) UNLABELLED SPECIMEN [ADDED]2019-05-20 00:00:00 Test Item Value Reference Range Interpretation Comments NOTE: (test code = 72216) UNLABELLED SPECIMEN [ADDED]2019-05-20 00:00:00 Test Item Value Reference Range Interpretation Comments NOTE: (test code = 21046) CBC W/AUTO [id number] 00:00:00 Test Item Value Reference Range Interpretation [...] code = 1015) 284 K/UL CBC W/AUTO [id number] 00:00:00 Test Item Value Reference Range Interpretation [...] code = 1015) 284 K/UL CBC W/AUTO [id number] 00:00:00 Test Item Value Reference Range Interpretation [...] (test code = 1015) 284 K/UL LIPID [id number] 00:00:00 Test Item Value Reference Range Interpretation Comments CHOLESTEROL (test code = 2210) 196 MG/DL TRIGLYCERIDES (test code = 2232) 227 MG/DL HDL CHOLESTEROL (test code = 2220) 44 MG/DL CALC LDL CHOL (test code = 2237) 107 MG/DL RISK RATIO LDL/HDL (test code = 2.42 RATIO 2238) LIPID [id number] 00:00:00 Test Item Value Reference Range Interpretation Comments CHOLESTEROL (test code = 2210) 196 MG/DL TRIGLYCERIDES (test code = 2232) 227 MG/DL HDL CHOLESTEROL (test code = 2220) 44 MG/DL CALC LDL CHOL (test code = 2237) 107 MG/DL RISK RATIO LDL/HDL (test code = 2.42 RATIO 2238) HEMOGLOBIN [id number] 00:00:00 Test Item Value Reference Range Interpretation Comments HEMOGLOBIN A1c (test code = 02713) 9.0 % HEMOGLOBIN [id number] 00:00:00 Test Item Value Reference Range Interpretation Comments HEMOGLOBIN A1c (test code = 86601) 9.0 % HEMOGLOBIN [id number] 00:00:00 Test Item Value Reference Range Interpretation Comments HEMOGLOBIN A1c (test code = 62949) 9.0 % COMPREHENSIVE METABOLIC [id number] 00:00:00 Test Item Value Reference Range Interpretation Comments GLUCOSE (test code = 2217) 133 MG/DL BUN (test code = 2208) 44 MG/DL CREATININE (test code = 2214) 1.46 MG/DL eGFR AMER. (test code 42 ML/MIN/1.73 = 35588) eGFR NON- AMER. (test 36 ML/MIN/1.73 code = 17827) CALC BUN/CREAT (test code = 30 RATIO [...] = 0.3 MG/DL 220) ALKALINE PHOSPHATASE (test 96 U/L code = 2204) AST (test code = 2218) 19 U/L ALT (test code = 2219) 17 U/L COMPREHENSIVE METABOLIC [id number] 00:00:00 Test Item Value Reference Range Interpretation Comments GLUCOSE (test code = 2217) 133 MG/DL BUN (test code = 2208) 44 MG/DL CREATININE (test code = 2214) 1.46 MG/DL eGFR AMER. (test code 42 ML/MIN/1.73 = 50367) eGFR NON- AMER. (test 36 ML/MIN/1.73 code = 45534) CALC BUN/CREAT (test code = 30 RATIO [...] = 0.3 MG/DL 7) ALKALINE PHOSPHATASE (test 96 U/L code = 2204) AST (test code = 2218) 19 U/L ALT (test code = 2219) 17 U/L MICROALBUMIN/CREATININE, RANDOM AND [id number] 00:00:00 Test Item Value Reference Range Interpretation Comments CREATININE, URINE, CONC. (test 97.1 MG/DL code = 2072) ALBUMIN, URINE, RANDOM (test code 18.9 MG/DL = 34343) CALC ALBUMIN/CREAT, RND (test code 195 MG/G = 30722) MICROALBUMIN/CREATININE, RANDOM AND [id number] 00:00:00 Test Item Value Reference Range Interpretation Comments CREATININE, URINE, CONC. (test 97.1 MG/DL code = 2072) ALBUMIN, URINE, RANDOM (test code 18.9 MG/DL = 07955) CALC ALBUMIN/CREAT, RND (test code 195 MG/G = 31611) CBC W/AUTO [id number] 00:00:00 Test Item Value Reference Range Interpretation [...] code = 1015) 284 K/UL CBC W/AUTO [id number] 00:00:00 Test Item Value Reference Range Interpretation [...] code = 1015) 284 K/UL CBC W/AUTO [id number] 00:00:00 Test Item Value Reference Range Interpretation [...] code = 1015) 284 K/UL CBC W/AUTO [id number] 00:00:00 Test Item Value Reference Range Interpretation [...] code = 1015) 284 K/UL CBC W/AUTO [id number] 00:00:00 Test Item Value Reference Range Interpretation [...] (test code = 1015) 284 K/UL LIPID [id number] 00:00:00 Test Item Value Reference Range Interpretation Comments CHOLESTEROL (test code = 2210) 196 MG/DL TRIGLYCERIDES (test code = 2232) 227 MG/DL HDL CHOLESTEROL (test code = 2220) 44 MG/DL CALC LDL CHOL (test code = 2237) 107 MG/DL RISK RATIO LDL/HDL (test code = 2.42 RATIO 2238) LIPID [id number] 00:00:00 Test Item Value Reference Range Interpretation Comments CHOLESTEROL (test code = 2210) 196 MG/DL TRIGLYCERIDES (test code = 2232) 227 MG/DL HDL CHOLESTEROL (test code = 2220) 44 MG/DL CALC LDL CHOL (test code = 2237) 107 MG/DL RISK RATIO LDL/HDL (test code = 2.42 RATIO 2238) LIPID [id number] 00:00:00 Test Item Value Reference Range Interpretation Comments CHOLESTEROL (test code = 2210) 196 MG/DL TRIGLYCERIDES (test code = 2232) 227 MG/DL HDL CHOLESTEROL (test code = 2220) 44 MG/DL CALC LDL CHOL (test code = 2237) 107 MG/DL RISK RATIO LDL/HDL (test code = 2.42 RATIO 2238) HEMOGLOBIN [id number] 00:00:00 Test Item Value Reference Range Interpretation Comments HEMOGLOBIN A1c (test code = 98086) 9.0 % HEMOGLOBIN [id number] 00:00:00 Test Item Value Reference Range Interpretation Comments HEMOGLOBIN A1c (test code = 23185) 9.0 % HEMOGLOBIN [id number] 00:00:00 Test Item Value Reference Range Interpretation Comments HEMOGLOBIN A1c (test code = 90181) 9.0 % COMPREHENSIVE METABOLIC [id number] 00:00:00 Test Item Value Reference Range Interpretation Comments GLUCOSE (test code = 2217) 133 MG/DL BUN (test code = 2208) 44 MG/DL CREATININE (test code = 2214) 1.46 MG/DL eGFR AMER. (test code 42 ML/MIN/1.73 = 48251) eGFR NON- AMER. (test 36 ML/MIN/1.73 code = 69990) CALC BUN/CREAT (test code = 30 RATIO [...] code = 2219) 17 U/L COMPREHENSIVE METABOLIC [id number] 00:00:00 Test Item Value Reference Range Interpretation Comments GLUCOSE (test code = 2217) 133 MG/DL BUN (test code = 2208) 44 MG/DL CREATININE (test code = 2214) 1.46 MG/DL eGFR AMER. (test code 42 ML/MIN/1.73 = 86257) eGFR NON- AMER. (test 36 ML/MIN/1.73 code = 07038) CALC BUN/CREAT (test code = 30 RATIO [...] = 2219) 17 U/L MICROALBUMIN/CREATININE, RANDOM AND [id number] 00:00:00 Test Item Value Reference Range Interpretation Comments CREATININE, URINE, CONC. (test 97.1 MG/DL code = 2072) ALBUMIN, URINE, RANDOM (test code 18.9 MG/DL = 67247) CALC ALBUMIN/CREAT, RND (test code 195 MG/G = 40077) MICROALBUMIN/CREATININE, RANDOM AND [id number] 00:00:00 Test Item Value Reference Range Interpretation Comments CREATININE, URINE, CONC. (test 97.1 MG/DL code = 2072) ALBUMIN, URINE, RANDOM (test code 18.9 MG/DL = 34216) CALC ALBUMIN/CREAT, RND (test code 195 MG/G = 07039) HEMOGLOBIN [id number] 00:00:00 Test Item Value Reference Range Interpretation Comments HEMOGLOBIN A1c (test code = 92484) 9.0 % HEMOGLOBIN [id number] 00:00:00 Test Item Value Reference Range Interpretation Comments HEMOGLOBIN A1c (test code = 97839) 9.0 % CBC W/AUTO [id number] 00:00:00 Test Item Value Reference Range Interpretation [...] code = 1015) 284 K/UL CBC W/AUTO [id number] 00:00:00 Test Item Value Reference Range Interpretation [...] code = 1015) 284 K/UL CBC W/AUTO [id number] 00:00:00 Test Item Value Reference Range Interpretation [...] (test code = 1015) 284 K/UL LIPID [id number] 00:00:00 Test Item Value Reference Range Interpretation Comments CHOLESTEROL (test code = 2210) 196 MG/DL TRIGLYCERIDES (test code = 2232) 227 MG/DL HDL CHOLESTEROL (test code = 2220) 44 MG/DL CALC LDL CHOL (test code = 2237) 107 MG/DL RISK RATIO LDL/HDL (test code = 2.42 RATIO 2238) LIPID [id number] 00:00:00 Test Item Value Reference Range Interpretation Comments CHOLESTEROL (test code = 2210) 196 MG/DL TRIGLYCERIDES (test code = 2232) 227 MG/DL HDL CHOLESTEROL (test code = 2220) 44 MG/DL CALC LDL CHOL (test code = 2237) 107 MG/DL RISK RATIO LDL/HDL (test code = 2.42 RATIO 2238) HEMOGLOBIN [id number] 00:00:00 Test Item Value Reference Range Interpretation Comments HEMOGLOBIN A1c (test code = 78877) 9.0 % HEMOGLOBIN [id number] 00:00:00 Test Item Value Reference Range Interpretation Comments HEMOGLOBIN A1c (test code = 20359) 9.0 % COMPREHENSIVE METABOLIC [id number] 00:00:00 Test Item Value Reference Range Interpretation Comments GLUCOSE (test code = 2217) 133 MG/DL BUN (test code = 2208) 44 MG/DL CREATININE (test code = 2214) 1.46 MG/DL eGFR AMER. (test code 42 ML/MIN/1.73 = 98137) eGFR NON- AMER. (test 36 ML/MIN/1.73 code = 03952) CALC BUN/CREAT (test code = 30 RATIO [...] ALT (test code = 2219) 17 U/L HEMOGLOBIN [id number] 00:00:00 Test Item Value Reference Range Interpretation Comments HEMOGLOBIN A1c (test code = 77252) 9.0 % COMPREHENSIVE METABOLIC [id number] 00:00:00 Test Item Value Reference Range Interpretation Comments GLUCOSE (test code = 2217) 133 MG/DL BUN (test code = 2208) 44 MG/DL CREATININE (test code = 2214) 1.46 MG/DL eGFR AMER. (test code 42 ML/MIN/1.73 = 42854) eGFR NON- AMER. (test 36 ML/MIN/1.73 code = 14955) CALC BUN/CREAT (test code = 30 RATIO [...] code = 2219) 17 U/L COMPREHENSIVE METABOLIC [id number] 00:00:00 Test Item Value Reference Range Interpretation Comments GLUCOSE (test code = 2217) 133 MG/DL BUN (test code = 2208) 44 MG/DL CREATININE (test code = 2214) 1.46 MG/DL eGFR AMER. (test code 42 ML/MIN/1.73 = 45831) eGFR NON- AMER. (test 36 ML/MIN/1.73 code = 70710) CALC BUN/CREAT (test code = 30 RATIO [...] = 2219) 17 U/L MICROALBUMIN/CREATININE, RANDOM AND [id number] 00:00:00 Test Item Value Reference Range Interpretation Comments CREATININE, URINE, CONC. (test 97.1 MG/DL code = 2072) ALBUMIN, URINE, RANDOM (test code 18.9 MG/DL = 66137) CALC ALBUMIN/CREAT, RND (test code 195 MG/G = 16427) MICROALBUMIN/CREATININE, RANDOM AND [id number] 00:00:00 Test Item Value Reference Range Interpretation Comments CREATININE, URINE, CONC. (test 97.1 MG/DL code = 2072) ALBUMIN, URINE, RANDOM (test code 18.9 MG/DL = 13826) CALC ALBUMIN/CREAT, RND (test code 195 MG/G = 25066) MICROALBUMIN/CREATININE, RANDOM AND [id number] 00:00:00 Test Item Value Reference Range Interpretation Comments CREATININE, URINE, CONC. (test 97.1 MG/DL code = 2072) ALBUMIN, URINE, RANDOM (test code 18.9 MG/DL = 94947) CALC ALBUMIN/CREAT, RND (test code 195 MG/G = 90940) CBC W/AUTO [id number] 00:00:00 Test Item Value Reference Range Interpretation [...] code = 1015) 284 K/UL CBC W/AUTO [id number] 00:00:00 Test Item Value Reference Range Interpretation [...] code = 1015) 284 K/UL CBC W/AUTO [id number] 00:00:00 Test Item Value Reference Range Interpretation [...] (test code = 1015) 284 K/UL LIPID [id number] 00:00:00 Test Item Value Reference Range Interpretation Comments CHOLESTEROL (test code = 2210) 196 MG/DL TRIGLYCERIDES (test code = 2232) 227 MG/DL HDL CHOLESTEROL (test code = 2220) 44 MG/DL CALC LDL CHOL (test code = 2237) 107 MG/DL RISK RATIO LDL/HDL (test code = 2.42 RATIO 2238) LIPID [id number] 00:00:00 Test Item Value Reference Range Interpretation Comments CHOLESTEROL (test code = 2210) 196 MG/DL TRIGLYCERIDES (test code = 2232) 227 MG/DL HDL CHOLESTEROL (test code = 2220) 44 MG/DL CALC LDL CHOL (test code = 2237) 107 MG/DL RISK RATIO LDL/HDL (test code = 2.42 RATIO 2238) HEMOGLOBIN [id number] 00:00:00 Test Item Value Reference Range Interpretation Comments HEMOGLOBIN A1c (test code = 52866) 9.0 % HEMOGLOBIN [id number] 00:00:00 Test Item Value Reference Range Interpretation Comments HEMOGLOBIN A1c (test code = 54565) 9.0 % HEMOGLOBIN [id number] 00:00:00 Test Item Value Reference Range Interpretation Comments HEMOGLOBIN A1c (test code = 97183) 9.0 % COMPREHENSIVE METABOLIC [id number] 00:00:00 Test Item Value Reference Range Interpretation Comments GLUCOSE (test code = 2217) 133 MG/DL BUN (test code = 2208) 44 MG/DL CREATININE (test code = 2214) 1.46 MG/DL eGFR AMER. (test code 42 ML/MIN/1.73 = 48383) eGFR NON- AMER. (test 36 ML/MIN/1.73 code = 71710) CALC BUN/CREAT (test code = 30 RATIO 2234) SODIUM (test code = 2231) [...] code = 2219) 17 U/L COMPREHENSIVE METABOLIC [id number] 00:00:00 Test Item Value Reference Range Interpretation Comments GLUCOSE (test code = 2217) 133 MG/DL BUN (test code = 2208) 44 MG/DL CREATININE (test code = 2214) 1.46 MG/DL eGFR AMER. (test code 42 ML/MIN/1.73 = 04888) eGFR NON- AMER. (test 36 ML/MIN/1.73 code = 35822) CALC BUN/CREAT (test code = 30 RATIO [...] = 2219) 17 U/L MICROALBUMIN/CREATININE, RANDOM AND [id number] 00:00:00 Test Item Value Reference Range Interpretation Comments CREATININE, URINE, CONC. (test 97.1 MG/DL code = 2072) ALBUMIN, URINE, RANDOM (test code 18.9 MG/DL = 09539) CALC ALBUMIN/CREAT, RND (test code 195 MG/G = 23776) MICROALBUMIN/CREATININE, RANDOM AND [id number] 00:00:00 Test Item Value Reference Range Interpretation Comments CREATININE, URINE, CONC. (test 97.1 MG/DL code = 2072) ALBUMIN, URINE, RANDOM (test code 18.9 MG/DL = 01910) CALC ALBUMIN/CREAT, RND (test code 195 MG/G = 21242) CBC W/AUTO [id number] 00:00:00 Test Item Value Reference Range Interpretation [...] code = 1015) 284 K/UL CBC W/AUTO [id number] 00:00:00 Test Item Value Reference Range Interpretation [...] (test code = 1015) 284 K/UL LIPID [id number] 00:00:00 Test Item Value Reference Range Interpretation Comments CHOLESTEROL (test code = 2210) 196 MG/DL TRIGLYCERIDES (test code = 2232) 227 MG/DL HDL CHOLESTEROL (test code = 2220) 44 MG/DL CALC LDL CHOL (test code = 2237) 107 MG/DL RISK RATIO LDL/HDL (test code = 2.42 RATIO 2238) HEMOGLOBIN [id number] 00:00:00 Test Item Value Reference Range Interpretation Comments HEMOGLOBIN A1c (test code = 04862) 9.0 % HEMOGLOBIN [id number] 00:00:00 Test Item Value Reference Range Interpretation Comments HEMOGLOBIN A1c (test code = 59026) 9.0 % COMPREHENSIVE METABOLIC [id number] 00:00:00 Test Item Value Reference Range Interpretation Comments GLUCOSE (test code = 2217) 133 MG/DL BUN (test code = 2208) 44 MG/DL CREATININE (test code = 2214) 1.46 MG/DL eGFR AMER. (test code 42 ML/MIN/1.73 = 94825) eGFR NON- AMER. (test 36 ML/MIN/1.73 code = 32398) CALC BUN/CREAT (test code = 30 RATIO [...] = 2219) 17 U/L MICROALBUMIN/CREATININE, RANDOM AND [id number] 00:00:00 Test Item Value Reference Range Interpretation Comments CREATININE, URINE, CONC. (test 97.1 MG/DL code = 2071) ALBUMIN, URINE, RANDOM (test code 18.9 MG/DL = 68425) CALC ALBUMIN/CREAT, RND (test code 195 MG/G = 40435) CBC W/AUTO [id number] 00:00:00 Test Item Value Reference Range Interpretation [...] code = 1015) 284 K/UL CBC W/AUTO [id number] 00:00:00 Test Item Value Reference Range Interpretation [...] code = 1015) 284 K/UL CBC W/AUTO [id number] 00:00:00 Test Item Value Reference Range Interpretation [...] (test code = 1015) 284 K/UL LIPID [id number] 00:00:00 Test Item Value Reference Range Interpretation Comments CHOLESTEROL (test code = 2210) 196 MG/DL TRIGLYCERIDES (test code = 2232) 227 MG/DL HDL CHOLESTEROL (test code = 2220) 44 MG/DL CALC LDL CHOL (test code = 2237) 107 MG/DL RISK RATIO LDL/HDL (test code = 2.42 RATIO 2238) LIPID [id number] 00:00:00 Test Item Value Reference Range Interpretation Comments CHOLESTEROL (test code = 2210) 196 MG/DL TRIGLYCERIDES (test code = 2232) 227 MG/DL HDL CHOLESTEROL (test code = 2220) 44 MG/DL CALC LDL CHOL (test code = 2237) 107 MG/DL RISK RATIO LDL/HDL (test code = 2.42 RATIO 2238) HEMOGLOBIN [id number] 00:00:00 Test Item Value Reference Range Interpretation Comments HEMOGLOBIN A1c (test code = 20014) 9.0 % HEMOGLOBIN [id number] 00:00:00 Test Item Value Reference Range Interpretation Comments HEMOGLOBIN A1c (test code = 39888) 9.0 % HEMOGLOBIN [id number] 00:00:00 Test Item Value Reference Range Interpretation Comments HEMOGLOBIN A1c (test code = 99403) 9.0 % COMPREHENSIVE METABOLIC [id number] 00:00:00 Test Item Value Reference Range Interpretation Comments GLUCOSE (test code = 2217) 133 MG/DL BUN (test code = 2208) 44 MG/DL CREATININE (test code = 2214) 1.46 MG/DL eGFR AMER. (test code 42 ML/MIN/1.73 = 38043) eGFR NON- AMER. (test 36 ML/MIN/1.73 code = 95144) CALC BUN/CREAT (test code = 30 RATIO [...] code = 2219) 17 U/L COMPREHENSIVE METABOLIC [id number] 00:00:00 Test Item Value Reference Range Interpretation Comments GLUCOSE (test code = 2217) 133 MG/DL BUN (test code = 2208) 44 MG/DL CREATININE (test code = 2214) 1.46 MG/DL eGFR AMER. (test code 42 ML/MIN/1.73 = 60425) eGFR NON- AMER. (test 36 ML/MIN/1.73 code = 80713) CALC BUN/CREAT (test code = 30 RATIO [...] = 2219) 17 U/L MICROALBUMIN/CREATININE, RANDOM AND [id number] 00:00:00 Test Item Value Reference Range Interpretation Comments CREATININE, URINE, CONC. (test 97.1 MG/DL code = 2072) ALBUMIN, URINE, RANDOM (test code 18.9 MG/DL = 37584) CALC ALBUMIN/CREAT, RND (test code 195 MG/G = 00643) MICROALBUMIN/CREATININE, RANDOM AND [id number] 00:00:00 Test Item Value Reference Range Interpretation Comments CREATININE, URINE, CONC. (test 97.1 MG/DL code = 2072) ALBUMIN, URINE, RANDOM (test code 18.9 MG/DL = 25685) CALC ALBUMIN/CREAT, RND (test code 195 MG/G = 04681) CBC W/AUTO [id number] 00:00:00 Test Item Value Reference Range Interpretation [...] code = 1015) 284 K/UL CBC W/AUTO [id number] 00:00:00 Test Item Value Reference Range Interpretation [...] code = 1015) 284 K/UL CBC W/AUTO [id number] 00:00:00 Test Item Value Reference Range Interpretation [...] (test code = 1015) 284 K/UL LIPID [id number] 00:00:00 Test Item Value Reference Range Interpretation Comments CHOLESTEROL (test code = 2210) 196 MG/DL TRIGLYCERIDES (test code = 2232) 227 MG/DL HDL CHOLESTEROL (test code = 2220) 44 MG/DL CALC LDL CHOL (test code = 2237) 107 MG/DL RISK RATIO LDL/HDL (test code = 2.42 RATIO 2238) LIPID [id number] 00:00:00 Test Item Value Reference Range Interpretation Comments CHOLESTEROL (test code = 2210) 196 MG/DL TRIGLYCERIDES (test code = 2232) 227 MG/DL HDL CHOLESTEROL (test code = 2220) 44 MG/DL CALC LDL CHOL (test code = 2237) 107 MG/DL RISK RATIO LDL/HDL (test code = 2.42 RATIO 2238) HEMOGLOBIN [id number] 00:00:00 Test Item Value Reference Range Interpretation Comments HEMOGLOBIN A1c (test code = 52997) 9.0 % HEMOGLOBIN [id number] 00:00:00 Test Item Value Reference Range Interpretation Comments HEMOGLOBIN A1c (test code = 16730) 9.0 % HEMOGLOBIN [id number] 00:00:00 Test Item Value Reference Range Interpretation Comments HEMOGLOBIN A1c (test code = 53039) 9.0 % COMPREHENSIVE METABOLIC [id number] 00:00:00 Test Item Value Reference Range Interpretation Comments GLUCOSE (test code = 2217) 133 MG/DL BUN (test code = 2208) 44 MG/DL CREATININE (test code = 2214) 1.46 MG/DL eGFR AMER. (test code 42 ML/MIN/1.73 = 65237) eGFR NON- AMER. (test 36 ML/MIN/1.73 code = 20800) CALC BUN/CREAT (test code = 30 RATIO [...] code = 2219) 17 U/L COMPREHENSIVE METABOLIC [id number] 00:00:00 Test Item Value Reference Range Interpretation Comments GLUCOSE (test code = 2217) 133 MG/DL BUN (test code = 2208) 44 MG/DL CREATININE (test code = 2214) 1.46 MG/DL eGFR AMER. (test code 42 ML/MIN/1.73 = 42686) eGFR NON- AMER. (test 36 ML/MIN/1.73 code = 36855) CALC BUN/CREAT (test code = 30 RATIO [...] = 2219) 17 U/L MICROALBUMIN/CREATININE, RANDOM AND [id number] 00:00:00 Test Item Value Reference Range Interpretation Comments CREATININE, URINE, CONC. (test 97.1 MG/DL code = 2072) ALBUMIN, URINE, RANDOM (test code 18.9 MG/DL = 37141) CALC ALBUMIN/CREAT, RND (test code 195 MG/G = 04904) MICROALBUMIN/CREATININE, RANDOM AND [id number] 00:00:00 Test Item Value Reference Range Interpretation Comments CREATININE, URINE, CONC. (test 97.1 MG/DL code = 2072) ALBUMIN, URINE, RANDOM (test code 18.9 MG/DL = 08300) CALC ALBUMIN/CREAT, RND (test code 195 MG/G = 40776) COMPREHENSIVE METABOLIC [id number] 00:00:00 Test Item Value Reference Range Interpretation Comments GLUCOSE (test code = 2217) 235 MG/DL BUN (test code = 2208) 36 MG/DL CREATININE (test code = 2214) 1.62 MG/DL eGFR AMER. (test code 37 ML/MIN/1.73 = 76265) eGFR NON- AMER. (test 32 ML/MIN/1.73 code = 78869) CALC BUN/CREAT (test code = 22 RATIO [...] code = 2219) 9 U/L COMPREHENSIVE METABOLIC [id number] 00:00:00 Test Item Value Reference Range Interpretation Comments GLUCOSE (test code = 2217) 235 MG/DL BUN (test code = 2208) 36 MG/DL CREATININE (test code = 2214) 1.62 MG/DL eGFR AMER. (test code 37 ML/MIN/1.73 = 85150) eGFR NON- AMER. (test 32 ML/MIN/1.73 code = 22268) CALC BUN/CREAT (test code = 22 RATIO [...] code = 2219) 9 U/L COMPREHENSIVE METABOLIC [id number] 00:00:00 Test Item Value Reference Range Interpretation Comments GLUCOSE (test code = 2217) 235 MG/DL BUN (test code = 2208) 36 MG/DL CREATININE (test code = 2214) 1.62 MG/DL eGFR AMER. (test code 37 ML/MIN/1.73 = 45749) eGFR NON- AMER. (test 32 ML/MIN/1.73 code = 77391) CALC BUN/CREAT (test code = 22 RATIO [...] code = 2219) 9 U/L COMPREHENSIVE METABOLIC [id number] 00:00:00 Test Item Value Reference Range Interpretation Comments GLUCOSE (test code = 2217) 235 MG/DL BUN (test code = 2208) 36 MG/DL CREATININE (test code = 2214) 1.62 MG/DL eGFR AMER. (test code 37 ML/MIN/1.73 = 52776) eGFR NON- AMER. (test 32 ML/MIN/1.73 code = 84567) CALC BUN/CREAT (test code = 22 RATIO [...] code = 2219) 9 U/L COMPREHENSIVE METABOLIC [id number] 00:00:00 Test Item Value Reference Range Interpretation Comments GLUCOSE (test code = 2217) 235 MG/DL BUN (test code = 2208) 36 MG/DL CREATININE (test code = 2214) 1.62 MG/DL eGFR AMER. (test code 37 ML/MIN/1.73 = 89737) eGFR NON- AMER. (test 32 ML/MIN/1.73 code = 48597) CALC BUN/CREAT (test code = 22 RATIO [...] code = 2219) 9 U/L COMPREHENSIVE METABOLIC [id number] 00:00:00 Test Item Value Reference Range Interpretation Comments GLUCOSE (test code = 2217) 235 MG/DL BUN (test code = 2208) 36 MG/DL CREATININE (test code = 2214) 1.62 MG/DL eGFR AMER. (test code 37 ML/MIN/1.73 = 85987) eGFR NON- AMER. (test 32 ML/MIN/1.73 code = 88267) CALC BUN/CREAT (test code = 22 RATIO [...] code = 2219) 9 U/L COMPREHENSIVE METABOLIC [id number] 00:00:00 Test Item Value Reference Range Interpretation Comments GLUCOSE (test code = 2217) 235 MG/DL BUN (test code = 2208) 36 MG/DL CREATININE (test code = 2214) 1.62 MG/DL eGFR AMER. (test code 37 ML/MIN/1.73 = 73580) eGFR NON- AMER. (test 32 ML/MIN/1.73 code = 67083) CALC BUN/CREAT (test code = 22 RATIO [...] code = 2219) 9 U/L COMPREHENSIVE METABOLIC [id number] 00:00:00 Test Item Value Reference Range Interpretation Comments GLUCOSE (test code = 2217) 235 MG/DL BUN (test code = 2208) 36 MG/DL CREATININE (test code = 2214) 1.62 MG/DL eGFR AMER. (test code 37 ML/MIN/1.73 = 00276) eGFR NON- AMER. (test 32 ML/MIN/1.73 code = 12732) CALC BUN/CREAT (test code = 22 RATIO [...] = 0.3 MG/DL 7) ALKALINE PHOSPHATASE (test 85 U/L code = 2204) AST (test code = 2218) 15 U/L ALT (test code = 2219) 9 U/L COMPREHENSIVE METABOLIC [id number] 00:00:00 Test Item Value Reference Range Interpretation Comments GLUCOSE (test code = 2217) 235 MG/DL BUN (test code = 2208) 36 MG/DL CREATININE (test code = 2214) 1.62 MG/DL eGFR AMER. (test code 37 ML/MIN/1.73 = 50373) eGFR NON- AMER. (test 32 ML/MIN/1.73 code = 13272) CALC BUN/CREAT (test code = 22 RATIO [...] code = 2219) 9 U/L COMPREHENSIVE METABOLIC [id number] 00:00:00 Test Item Value Reference Range Interpretation Comments GLUCOSE (test code = 2217) 235 MG/DL BUN (test code = 2208) 36 MG/DL CREATININE (test code = 2214) 1.62 MG/DL eGFR AMER. (test code 37 ML/MIN/1.73 = 85038) eGFR NON- AMER. (test 32 ML/MIN/1.73 code = 27157) CALC BUN/CREAT (test code = 22 RATIO [...] code = 2219) 9 U/L COMPREHENSIVE METABOLIC [id number] 00:00:00 Test Item Value Reference Range Interpretation Comments GLUCOSE (test code = 2217) 235 MG/DL BUN (test code = 2208) 36 MG/DL CREATININE (test code = 2214) 1.62 MG/DL eGFR AMER. (test code 37 ML/MIN/1.73 = 41362) eGFR NON- AMER. (test 32 ML/MIN/1.73 code = 85148) CALC BUN/CREAT (test code = 22 RATIO [...] code = 2219) 9 U/L COMPREHENSIVE METABOLIC [id number] 00:00:00 Test Item Value Reference Range Interpretation Comments GLUCOSE (test code = 2217) 235 MG/DL BUN (test code = 2208) 36 MG/DL CREATININE (test code = 2214) 1.62 MG/DL eGFR AMER. (test code 37 ML/MIN/1.73 = 95932) eGFR NON- AMER. (test 32 ML/MIN/1.73 code = 09878) CALC BUN/CREAT (test code = 22 RATIO [...] code = 2219) 9 U/L COMPREHENSIVE METABOLIC [id number] 00:00:00 Test Item Value Reference Range Interpretation Comments GLUCOSE (test code = 2217) 235 MG/DL BUN (test code = 2208) 36 MG/DL CREATININE (test code = 2214) 1.62 MG/DL eGFR AMER. (test code 37 ML/MIN/1.73 = 74438) eGFR NON- AMER. (test 32 ML/MIN/1.73 code = 52405) CALC BUN/CREAT (test code = 22 RATIO [...] code = 2219) 9 U/L COMPREHENSIVE METABOLIC [id number] 00:00:00 Test Item Value Reference Range Interpretation Comments GLUCOSE (test code = 2217) 235 MG/DL BUN (test code = 2208) 36 MG/DL CREATININE (test code = 2214) 1.62 MG/DL eGFR AMER. (test code 37 ML/MIN/1.73 = 63248) eGFR NON- AMER. (test 32 ML/MIN/1.73 code = 39580) CALC BUN/CREAT (test code = 22 RATIO [...] code = 2219) 9 U/L CBC W/AUTO [id number] 00:00:00 Test Item Value Reference Range Interpretation [...] code = 1015) 247 K/UL CBC W/AUTO [id number] 00:00:00 Test Item Value Reference Range Interpretation [...] code = 1015) 247 K/UL CBC W/AUTO [id number] 00:00:00 Test Item Value Reference Range Interpretation [...] (test code = 1015) 247 K/UL HEMOGLOBIN [id number] 00:00:00 Test Item Value Reference Range Interpretation Comments HEMOGLOBIN A1c (test code = 50832) 7.1 % HEMOGLOBIN [id number] 00:00:00 Test Item Value Reference Range Interpretation Comments HEMOGLOBIN A1c (test code = 50658) 7.1 % HEMOGLOBIN [id number] 00:00:00 Test Item Value Reference Range Interpretation Comments HEMOGLOBIN A1c (test code = 44017) 7.1 % COMPREHENSIVE METABOLIC [id number] 00:00:00 Test Item Value Reference Range Interpretation Comments GLUCOSE (test code = 2217) 116 MG/DL BUN (test code = 2208) 35 MG/DL CREATININE (test code = 2214) 1.31 MG/DL eGFR AMER. (test code 48 ML/MIN/1.73 = 87175) eGFR NON- AMER. (test 41 ML/MIN/1.73 code = 54025) CALC BUN/CREAT (test code = 27 RATIO [...] code = 2219) 10 U/L COMPREHENSIVE METABOLIC [id number] 00:00:00 Test Item Value Reference Range Interpretation Comments GLUCOSE (test code = 2217) 116 MG/DL BUN (test code = 2208) 35 MG/DL CREATININE (test code = 2214) 1.31 MG/DL eGFR AMER. (test code 48 ML/MIN/1.73 = 83519) eGFR NON- AMER. (test 41 ML/MIN/1.73 code = 21058) CALC BUN/CREAT (test code = 27 RATIO [...] code = 2219) 10 U/L CBC W/AUTO [id number] 00:00:00 Test Item Value Reference Range Interpretation [...] code = 1015) 247 K/UL CBC W/AUTO [id number] 00:00:00 Test Item Value Reference Range Interpretation [...] code = 1015) 247 K/UL CBC W/AUTO [id number] 00:00:00 Test Item Value Reference Range Interpretation [...] code = 1015) 247 K/UL CBC W/AUTO [id number] 00:00:00 Test Item Value Reference Range Interpretation [...] code = 1015) 247 K/UL CBC W/AUTO [id number] 00:00:00 Test Item Value Reference Range Interpretation [...] (test code = 1015) 247 K/UL HEMOGLOBIN [id number] 00:00:00 Test Item Value Reference Range Interpretation Comments HEMOGLOBIN A1c (test code = 29668) 7.1 % HEMOGLOBIN [id number] 00:00:00 Test Item Value Reference Range Interpretation Comments HEMOGLOBIN A1c (test code = 61525) 7.1 % HEMOGLOBIN [id number] 00:00:00 Test Item Value Reference Range Interpretation Comments HEMOGLOBIN A1c (test code = 83034) 7.1 % COMPREHENSIVE METABOLIC [id number] 00:00:00 Test Item Value Reference Range Interpretation Comments GLUCOSE (test code = 2217) 116 MG/DL BUN (test code = 2208) 35 MG/DL CREATININE (test code = 2214) 1.31 MG/DL eGFR AMER. (test code 48 ML/MIN/1.73 = 51159) eGFR NON- AMER. (test 41 ML/MIN/1.73 code = 55194) CALC BUN/CREAT (test code = 27 RATIO [...] code = 2219) 10 U/L COMPREHENSIVE METABOLIC [id number] 00:00:00 Test Item Value Reference Range Interpretation Comments GLUCOSE (test code = 2217) 116 MG/DL BUN (test code = 2208) 35 MG/DL CREATININE (test code = 2214) 1.31 MG/DL eGFR AMER. (test code 48 ML/MIN/1.73 = 08990) eGFR NON- AMER. (test 41 ML/MIN/1.73 code = 58530) CALC BUN/CREAT (test code = 27 RATIO [...] ALKALINE PHOSPHATASE (test 78 U/L code = 220) AST (test code = 2218) 15 U/L ALT (test code = 221) 10 U/L HEMOGLOBIN [id number] 00:00:00 Test Item Value Reference Range Interpretation Comments HEMOGLOBIN A1c (test code = 73444) 7.1 % HEMOGLOBIN [id number] 00:00:00 Test Item Value Reference Range Interpretation Comments HEMOGLOBIN A1c (test code = 96336) 7.1 % COMPREHENSIVE METABOLIC [id number] 00:00:00 Test Item Value Reference Range Interpretation Comments GLUCOSE (test code = 2217) 116 MG/DL BUN (test code = 2208) 35 MG/DL CREATININE (test code = 2214) 1.31 MG/DL eGFR AMER. (test code 48 ML/MIN/1.73 = 63601) eGFR NON- AMER. (test 41 ML/MIN/1.73 code = 05383) CALC BUN/CREAT (test code = 27 RATIO [...] code = 2219) 10 U/L CBC W/AUTO [id number] 00:00:00 Test Item Value Reference Range Interpretation [...] code = 1015) 247 K/UL CBC W/AUTO [id number] 00:00:00 Test Item Value Reference Range Interpretation [...] code = 1015) 247 K/UL CBC W/AUTO [id number] 00:00:00 Test Item Value Reference Range Interpretation [...] (test code = 1015) 247 K/UL HEMOGLOBIN [id number] 00:00:00 Test Item Value Reference Range Interpretation Comments HEMOGLOBIN A1c (test code = 89315) 7.1 % HEMOGLOBIN [id number] 00:00:00 Test Item Value Reference Range Interpretation Comments HEMOGLOBIN A1c (test code = 66677) 7.1 % HEMOGLOBIN [id number] 00:00:00 Test Item Value Reference Range Interpretation Comments HEMOGLOBIN A1c (test code = 30235) 7.1 % COMPREHENSIVE METABOLIC [id number] 00:00:00 Test Item Value Reference Range Interpretation Comments GLUCOSE (test code = 2217) 116 MG/DL BUN (test code = 2208) 35 MG/DL CREATININE (test code = 2214) 1.31 MG/DL eGFR AMER. (test code 48 ML/MIN/1.73 = 29822) eGFR NON- AMER. (test 41 ML/MIN/1.73 code = 29079) CALC BUN/CREAT (test code = 27 RATIO [...] RATIO 223) BILIRUBIN, TOTAL (test code = 0.2 MG/DL 2206) ALKALINE PHOSPHATASE (test 78 U/L code = 2204) AST (test code = 2218) 15 U/L ALT (test code = 2219) 10 U/L COMPREHENSIVE METABOLIC [id number] 00:00:00 Test Item Value Reference Range Interpretation Comments GLUCOSE (test code = 2217) 116 MG/DL BUN (test code = 2208) 35 MG/DL CREATININE (test code = 2214) 1.31 MG/DL eGFR AMER. (test code 48 ML/MIN/1.73 = 82878) eGFR NON- AMER. (test 41 ML/MIN/1.73 code = 72807) CALC BUN/CREAT (test code = 27 RATIO [...] code = 2219) 10 U/L CBC W/AUTO [id number] 00:00:00 Test Item Value Reference Range Interpretation [...] code = 1015) 247 K/UL CBC W/AUTO [id number] 00:00:00 Test Item Value Reference Range Interpretation [...] code = 1015) 247 K/UL CBC W/AUTO [id number] 00:00:00 Test Item Value Reference Range Interpretation [...] (test code = 1015) 247 K/UL HEMOGLOBIN [id number] 00:00:00 Test Item Value Reference Range Interpretation Comments HEMOGLOBIN A1c (test code = 77753) 7.1 % HEMOGLOBIN [id number] 00:00:00 Test Item Value Reference Range Interpretation Comments HEMOGLOBIN A1c (test code = 98738) 7.1 % HEMOGLOBIN [id number] 00:00:00 Test Item Value Reference Range Interpretation Comments HEMOGLOBIN A1c (test code = 10171) 7.1 % COMPREHENSIVE METABOLIC [id number] 00:00:00 Test Item Value Reference Range Interpretation Comments GLUCOSE (test code = 2217) 116 MG/DL BUN (test code = 2208) 35 MG/DL CREATININE (test code = 2214) 1.31 MG/DL eGFR AMER. (test code 48 ML/MIN/1.73 = 65126) eGFR NON- AMER. (test 41 ML/MIN/1.73 code = 06535) CALC BUN/CREAT (test code = 27 RATIO [...] code = 2219) 10 U/L COMPREHENSIVE METABOLIC [id number] 00:00:00 Test Item Value Reference Range Interpretation Comments GLUCOSE (test code = 2217) 116 MG/DL BUN (test code = 2208) 35 MG/DL CREATININE (test code = 2214) 1.31 MG/DL eGFR AMER. (test code 48 ML/MIN/1.73 = 51853) eGFR NON- AMER. (test 41 ML/MIN/1.73 code = 31389) CALC BUN/CREAT (test code = 27 RATIO 2235) SODIUM (test code = 2231) 141 MEQ/L POTASSIUM (test code = 2228) 5.0 MEQ/L CHLORIDE (test code = 2215) 104 MEQ/L CARBON DIOXIDE (test code = 22 MEQ/L 2206) CALCIUM (test code = 2209) 9.5 MG/DL [...] code = 2219) 10 U/L CBC W/AUTO [id number] 00:00:00 Test Item Value Reference Range Interpretation [...] code = 1015) 247 K/UL CBC W/AUTO [id number] 00:00:00 Test Item Value Reference Range Interpretation [...] (test code = 1015) 247 K/UL HEMOGLOBIN [id number] 00:00:00 Test Item Value Reference Range Interpretation Comments HEMOGLOBIN A1c (test code = 34825) 7.1 % HEMOGLOBIN [id number] 00:00:00 Test Item Value Reference Range Interpretation Comments HEMOGLOBIN A1c (test code = 69628) 7.1 % COMPREHENSIVE METABOLIC [id number] 00:00:00 Test Item Value Reference Range Interpretation Comments GLUCOSE (test code = 2217) 116 MG/DL BUN (test code = 2208) 35 MG/DL CREATININE (test code = 2214) 1.31 MG/DL eGFR AMER. (test code 48 ML/MIN/1.73 = 80026) eGFR NON- AMER. (test 41 ML/MIN/1.73 code = 97402) CALC BUN/CREAT (test code = 27 RATIO [...] code = 2219) 10 U/L CBC W/AUTO [id number] 00:00:00 Test Item Value Reference Range Interpretation [...] code = 1015) 247 K/UL CBC W/AUTO [id number] 00:00:00 Test Item Value Reference Range Interpretation [...] code = 1015) 247 K/UL CBC W/AUTO [id number] 00:00:00 Test Item Value Reference Range Interpretation [...] (test code = 1015) 247 K/UL HEMOGLOBIN [id number] 00:00:00 Test Item Value Reference Range Interpretation Comments HEMOGLOBIN A1c (test code = 29797) 7.1 % HEMOGLOBIN [id number] 00:00:00 Test Item Value Reference Range Interpretation Comments HEMOGLOBIN A1c (test code = 01946) 7.1 % HEMOGLOBIN [id number] 00:00:00 Test Item Value Reference Range Interpretation Comments HEMOGLOBIN A1c (test code = 32863) 7.1 % COMPREHENSIVE METABOLIC [id number] 00:00:00 Test Item Value Reference Range Interpretation Comments GLUCOSE (test code = 2217) 116 MG/DL BUN (test code = 2208) 35 MG/DL CREATININE (test code = 2214) 1.31 MG/DL eGFR AMER. (test code 48 ML/MIN/1.73 = 60701) eGFR NON- AMER. (test 41 ML/MIN/1.73 code = 06254) CALC BUN/CREAT (test code = 27 RATIO 2235) SODIUM (test code = 2231) 141 MEQ/L POTASSIUM (test code = 2228) 5.0 MEQ/L CHLORIDE (test code = 2215) 104 MEQ/L CARBON DIOXIDE (test code = 22 MEQ/L 2206) CALCIUM (test code = 2209) 9.5 MG/DL [...] code = 2219) 10 U/L COMPREHENSIVE METABOLIC [id number] 00:00:00 Test Item Value Reference Range Interpretation Comments GLUCOSE (test code = 2217) 116 MG/DL BUN (test code = 2208) 35 MG/DL CREATININE (test code = 2214) 1.31 MG/DL eGFR AMER. (test code 48 ML/MIN/1.73 = 73909) eGFR NON- AMER. (test 41 ML/MIN/1.73 code = 24046) CALC BUN/CREAT (test code = 27 RATIO 2235) SODIUM (test code = 2231) 141 MEQ/L POTASSIUM (test code = 2228) 5.0 MEQ/L CHLORIDE (test code = 2215) 104 MEQ/L CARBON DIOXIDE (test code = 22 MEQ/L 2206) CALCIUM (test code = 2209) 9.5 MG/DL [...] code = 2219) 10 U/L CBC W/AUTO [id number] 00:00:00 Test Item Value Reference Range Interpretation [...] code = 1015) 247 K/UL CBC W/AUTO [id number] 00:00:00 Test Item Value Reference Range Interpretation [...] code = 1015) 247 K/UL CBC W/AUTO [id number] 00:00:00 Test Item Value Reference Range Interpretation [...] (test code = 1015) 247 K/UL HEMOGLOBIN [id number] 00:00:00 Test Item Value Reference Range Interpretation Comments HEMOGLOBIN A1c (test code = 38887) 7.1 % HEMOGLOBIN [id number] 00:00:00 Test Item Value Reference Range Interpretation Comments HEMOGLOBIN A1c (test code = 86225) 7.1 % HEMOGLOBIN [id number] 00:00:00 Test Item Value Reference Range Interpretation Comments HEMOGLOBIN A1c (test code = 22800) 7.1 % COMPREHENSIVE METABOLIC [id number] 00:00:00 Test Item Value Reference Range Interpretation Comments GLUCOSE (test code = 2217) 116 MG/DL BUN (test code = 2208) 35 MG/DL CREATININE (test code = 2214) 1.31 MG/DL eGFR AMER. (test code 48 ML/MIN/1.73 = 76032) eGFR NON- AMER. (test 41 ML/MIN/1.73 code = 25235) CALC BUN/CREAT (test code = 27 RATIO [...] BILIRUBIN, TOTAL (test code = 0.2 MG/DL 220) ALKALINE PHOSPHATASE (test 78 U/L code = 2204) AST (test code = 2218) 15 U/L ALT (test code = 2219) 10 U/L COMPREHENSIVE METABOLIC [id number] 00:00:00 Test Item Value Reference Range Interpretation Comments GLUCOSE (test code = 2217) 116 MG/DL BUN (test code = 2208) 35 MG/DL CREATININE (test code = 2214) 1.31 MG/DL eGFR AMER. (test code 48 ML/MIN/1.73 = 83675) eGFR NON- AMER. (test 41 ML/MIN/1.73 code = 24259) CALC BUN/CREAT (test code = 27 RATIO 2235) SODIUM (test code = 2231) 141 MEQ/L POTASSIUM (test code = 2228) 5.0 MEQ/L CHLORIDE (test code = 2215) 104 MEQ/L CARBON DIOXIDE (test code = 22 MEQ/L 2206) CALCIUM (test code = 2209) 9.5 MG/DL PROTEIN, TOTAL (test code = 7.2 G/DL 9) ALBUMIN (test code = 2201) 4.3 G/DL CALC GLOBULIN (test code = 2.9 G/DL 2240) CALC A/G RATIO (test code = 1.5 RATIO 2234) BILIRUBIN, TOTAL (test code = 0.2 MG/DL 7) ALKALINE PHOSPHATASE (test 78 U/L code = 2204) AST (test code = 2218) 15 U/L ALT (test code = 2219) 10 U/L COMPREHENSIVE METABOLIC [id number] 00:00:00 Test Item Value Reference Range Interpretation Comments GLUCOSE (test code = 2217) 209 MG/DL BUN (test code = 2208) 44 MG/DL CREATININE (test code = 2214) 1.50 MG/DL eGFR AMER. (test code 41 ML/MIN/1.73 = 60601) eGFR NON- AMER. (test 35 ML/MIN/1.73 code = 90337) CALC BUN/CREAT (test code = 29 RATIO [...] code = 2219) 13 U/L COMPREHENSIVE METABOLIC [id number] 00:00:00 Test Item Value Reference Range Interpretation Comments GLUCOSE (test code = 2217) 209 MG/DL BUN (test code = 2208) 44 MG/DL CREATININE (test code = 2214) 1.50 MG/DL eGFR AMER. (test code 41 ML/MIN/1.73 = 37246) eGFR NON- AMER. (test 35 ML/MIN/1.73 code = 93969) CALC BUN/CREAT (test code = 29 RATIO [...] (test code = 2219) 13 U/L LIPID [id number] 00:00:00 Test Item Value Reference Range Interpretation Comments CHOLESTEROL (test code = 2210) 195 MG/DL TRIGLYCERIDES (test code = 2232) 195 MG/DL HDL CHOLESTEROL (test code = 2220) 49 MG/DL CALC LDL CHOL (test code = 2237) 107 MG/DL RISK RATIO LDL/HDL (test code = 2.18 RATIO 2238) LIPID [id number] 00:00:00 Test Item Value Reference Range Interpretation Comments CHOLESTEROL (test code = 2210) 195 MG/DL TRIGLYCERIDES (test code = 2232) 195 MG/DL HDL CHOLESTEROL (test code = 2220) 49 MG/DL CALC LDL CHOL (test code = 2237) 107 MG/DL RISK RATIO LDL/HDL (test code = 2.18 RATIO 2238) CBC W/AUTO [id number] 00:00:00 Test Item Value Reference Range Interpretation [...] code = 1015) 245 K/UL CBC W/AUTO [id number] 00:00:00 Test Item Value Reference Range Interpretation [...] code = 1015) 245 K/UL CBC W/AUTO [id number] 00:00:00 Test Item Value Reference Range Interpretation [...] (test code = 1015) 245 K/UL HEMOGLOBIN [id number] 00:00:00 Test Item Value Reference Range Interpretation Comments HEMOGLOBIN A1c (test code = 86420) 7.8 % HEMOGLOBIN [id number] 00:00:00 Test Item Value Reference Range Interpretation Comments HEMOGLOBIN A1c (test code = 71257) 7.8 % HEMOGLOBIN [id number] 00:00:00 Test Item Value Reference Range Interpretation Comments HEMOGLOBIN A1c (test code = 57998) 7.8 % COMPREHENSIVE METABOLIC [id number] 00:00:00 Test Item Value Reference Range Interpretation Comments GLUCOSE (test code = 2217) 209 MG/DL BUN (test code = 2208) 44 MG/DL CREATININE (test code = 2214) 1.50 MG/DL eGFR AMER. (test code 41 ML/MIN/1.73 = 66427) eGFR NON- AMER. (test 35 ML/MIN/1.73 code = 14559) CALC BUN/CREAT (test code = 29 RATIO [...] code = 2219) 13 U/L COMPREHENSIVE METABOLIC [id number] 00:00:00 Test Item Value Reference Range Interpretation Comments GLUCOSE (test code = 2217) 209 MG/DL BUN (test code = 2208) 44 MG/DL CREATININE (test code = 2214) 1.50 MG/DL eGFR AMER. (test code 41 ML/MIN/1.73 = 89401) eGFR NON- AMER. (test 35 ML/MIN/1.73 code = 26607) CALC BUN/CREAT (test code = 29 RATIO [...] code = 2219) 13 U/L COMPREHENSIVE METABOLIC [id number] 00:00:00 Test Item Value Reference Range Interpretation Comments GLUCOSE (test code = 2217) 209 MG/DL BUN (test code = 2208) 44 MG/DL CREATININE (test code = 2214) 1.50 MG/DL eGFR AMER. (test code 41 ML/MIN/1.73 = 38834) eGFR NON- AMER. (test 35 ML/MIN/1.73 code = 00640) CALC BUN/CREAT (test code = 29 RATIO [...] (test code = 2219) 13 U/L LIPID [id number] 00:00:00 Test Item Value Reference Range Interpretation Comments CHOLESTEROL (test code = 2210) 195 MG/DL TRIGLYCERIDES (test code = 2232) 195 MG/DL HDL CHOLESTEROL (test code = 2220) 49 MG/DL CALC LDL CHOL (test code = 2237) 107 MG/DL RISK RATIO LDL/HDL (test code = 2.18 RATIO 2238) LIPID [id number] 00:00:00 Test Item Value Reference Range Interpretation Comments CHOLESTEROL (test code = 2210) 195 MG/DL TRIGLYCERIDES (test code = 2232) 195 MG/DL HDL CHOLESTEROL (test code = 2220) 49 MG/DL CALC LDL CHOL (test code = 2237) 107 MG/DL RISK RATIO LDL/HDL (test code = 2.18 RATIO 2238) CBC W/AUTO [id number] 00:00:00 Test Item Value Reference Range Interpretation [...] code = 1015) 245 K/UL CBC W/AUTO [id number] 00:00:00 Test Item Value Reference Range Interpretation [...] code = 1015) 245 K/UL CBC W/AUTO [id number] 00:00:00 Test Item Value Reference Range Interpretation [...] (test code = 1015) 245 K/UL HEMOGLOBIN [id number] 00:00:00 Test Item Value Reference Range Interpretation Comments HEMOGLOBIN A1c (test code = 96983) 7.8 % HEMOGLOBIN [id number] 00:00:00 Test Item Value Reference Range Interpretation Comments HEMOGLOBIN A1c (test code = 39868) 7.8 % HEMOGLOBIN [id number] 00:00:00 Test Item Value Reference Range Interpretation Comments HEMOGLOBIN A1c (test code = 84560) 7.8 % LIPID [id number] 00:00:00 Test Item Value Reference Range Interpretation Comments CHOLESTEROL (test code = 2210) 195 MG/DL TRIGLYCERIDES (test code = 2232) 195 MG/DL HDL CHOLESTEROL (test code = 2220) 49 MG/DL CALC LDL CHOL (test code = 2237) 107 MG/DL RISK RATIO LDL/HDL (test code = 2.18 RATIO 2238) CBC W/AUTO [id number] 00:00:00 Test Item Value Reference Range Interpretation [...] code = 1015) 245 K/UL CBC W/AUTO [id number] 00:00:00 Test Item Value Reference Range Interpretation [...] (test code = 1015) 245 K/UL HEMOGLOBIN [id number] 00:00:00 Test Item Value Reference Range Interpretation Comments HEMOGLOBIN A1c (test code = 53794) 7.8 % COMPREHENSIVE METABOLIC [id number] 00:00:00 Test Item Value Reference Range Interpretation Comments GLUCOSE (test code = 2217) 209 MG/DL BUN (test code = 2208) 44 MG/DL CREATININE (test code = 2214) 1.50 MG/DL eGFR AMER. (test code 41 ML/MIN/1.73 = 11031) eGFR NON- AMER. (test 35 ML/MIN/1.73 code = 16739) CALC BUN/CREAT (test code = 29 RATIO [...] code = 2219) 13 U/L COMPREHENSIVE METABOLIC [id number] 00:00:00 Test Item Value Reference Range Interpretation Comments GLUCOSE (test code = 2217) 209 MG/DL BUN (test code = 2208) 44 MG/DL CREATININE (test code = 2214) 1.50 MG/DL eGFR AMER. (test code 41 ML/MIN/1.73 = 88247) eGFR NON- AMER. (test 35 ML/MIN/1.73 code = 80104) CALC BUN/CREAT (test code = 29 RATIO [...] (test code = 2219) 13 U/L LIPID [id number] 00:00:00 Test Item Value Reference Range Interpretation Comments CHOLESTEROL (test code = 2210) 195 MG/DL TRIGLYCERIDES (test code = 2232) 195 MG/DL HDL CHOLESTEROL (test code = 2220) 49 MG/DL CALC LDL CHOL (test code = 2237) 107 MG/DL RISK RATIO LDL/HDL (test code = 2.18 RATIO 2238) LIPID [id number] 00:00:00 Test Item Value Reference Range Interpretation Comments CHOLESTEROL (test code = 2210) 195 MG/DL TRIGLYCERIDES (test code = 2232) 195 MG/DL HDL CHOLESTEROL (test code = 2220) 49 MG/DL CALC LDL CHOL (test code = 2237) 107 MG/DL RISK RATIO LDL/HDL (test code = 2.18 RATIO 2238) HEMOGLOBIN [id number] 00:00:00 Test Item Value Reference Range Interpretation Comments HEMOGLOBIN A1c (test code = 07070) 7.8 % CBC W/AUTO [id number] 00:00:00 Test Item Value Reference Range Interpretation [...] code = 1015) 245 K/UL CBC W/AUTO [id number] 00:00:00 Test Item Value Reference Range Interpretation [...] code = 1015) 245 K/UL CBC W/AUTO [id number] 00:00:00 Test Item Value Reference Range Interpretation [...] (test code = 1015) 245 K/UL HEMOGLOBIN [id number] 00:00:00 Test Item Value Reference Range Interpretation Comments HEMOGLOBIN A1c (test code = 09691) 7.8 % HEMOGLOBIN [id number] 00:00:00 Test Item Value Reference Range Interpretation Comments HEMOGLOBIN A1c (test code = 55898) 7.8 % HEMOGLOBIN [id number] 00:00:00 Test Item Value Reference Range Interpretation Comments HEMOGLOBIN A1c (test code = 21058) 7.8 % COMPREHENSIVE METABOLIC [id number] 00:00:00 Test Item Value Reference Range Interpretation Comments GLUCOSE (test code = 2217) 209 MG/DL BUN (test code = 2208) 44 MG/DL CREATININE (test code = 2214) 1.50 MG/DL eGFR AMER. (test code 41 ML/MIN/1.73 = 23062) eGFR NON- AMER. (test 35 ML/MIN/1.73 code = 91781) CALC BUN/CREAT (test code = 29 RATIO [...] code = 2219) 13 U/L COMPREHENSIVE METABOLIC [id number] 00:00:00 Test Item Value Reference Range Interpretation Comments GLUCOSE (test code = 2217) 209 MG/DL BUN (test code = 2208) 44 MG/DL CREATININE (test code = 2214) 1.50 MG/DL eGFR AMER. (test code 41 ML/MIN/1.73 = 27372) eGFR NON- AMER. (test 35 ML/MIN/1.73 code = 54743) CALC BUN/CREAT (test code = 29 RATIO [...] (test code = 2219) 13 U/L LIPID [id number] 00:00:00 Test Item Value Reference Range Interpretation Comments CHOLESTEROL (test code = 2210) 195 MG/DL TRIGLYCERIDES (test code = 2232) 195 MG/DL HDL CHOLESTEROL (test code = 2220) 49 MG/DL CALC LDL CHOL (test code = 2237) 107 MG/DL RISK RATIO LDL/HDL (test code = 2.18 RATIO 2238) LIPID [id number] 00:00:00 Test Item Value Reference Range Interpretation Comments CHOLESTEROL (test code = 2210) 195 MG/DL TRIGLYCERIDES (test code = 2232) 195 MG/DL HDL CHOLESTEROL (test code = 2220) 49 MG/DL CALC LDL CHOL (test code = 2237) 107 MG/DL RISK RATIO LDL/HDL (test code = 2.18 RATIO 2238) CBC W/AUTO [id number] 00:00:00 Test Item Value Reference Range Interpretation [...] code = 1015) 245 K/UL CBC W/AUTO [id number] 00:00:00 Test Item Value Reference Range Interpretation [...] code = 1015) 245 K/UL CBC W/AUTO [id number] 00:00:00 Test Item Value Reference Range Interpretation [...] (test code = 1015) 245 K/UL HEMOGLOBIN [id number] 00:00:00 Test Item Value Reference Range Interpretation Comments HEMOGLOBIN A1c (test code = 19443) 7.8 % HEMOGLOBIN [id number] 00:00:00 Test Item Value Reference Range Interpretation Comments HEMOGLOBIN A1c (test code = 86898) 7.8 % HEMOGLOBIN [id number] 00:00:00 Test Item Value Reference Range Interpretation Comments HEMOGLOBIN A1c (test code = 28222) 7.8 % COMPREHENSIVE METABOLIC [id number] 00:00:00 Test Item Value Reference Range Interpretation Comments GLUCOSE (test code = 2217) 209 MG/DL BUN (test code = 2208) 44 MG/DL CREATININE (test code = 2214) 1.50 MG/DL eGFR AMER. (test code 41 ML/MIN/1.73 = 50356) eGFR NON- AMER. (test 35 ML/MIN/1.73 code = 56679) CALC BUN/CREAT (test code = 29 RATIO [...] (test code = 2219) 13 U/L LIPID [id number] 00:00:00 Test Item Value Reference Range Interpretation Comments CHOLESTEROL (test code = 2210) 195 MG/DL TRIGLYCERIDES (test code = 2232) 195 MG/DL HDL CHOLESTEROL (test code = 2220) 49 MG/DL CALC LDL CHOL (test code = 2237) 107 MG/DL RISK RATIO LDL/HDL (test code = 2.18 RATIO 2238) CBC W/AUTO [id number] 00:00:00 Test Item Value Reference Range Interpretation [...] code = 1015) 245 K/UL CBC W/AUTO [id number] 00:00:00 Test Item Value Reference Range Interpretation [...] (test code = 1015) 245 K/UL HEMOGLOBIN [id number] 00:00:00 Test Item Value Reference Range Interpretation Comments HEMOGLOBIN A1c (test code = 10376) 7.8 % HEMOGLOBIN [id number] 00:00:00 Test Item Value Reference Range Interpretation Comments HEMOGLOBIN A1c (test code = 92463) 7.8 % COMPREHENSIVE METABOLIC [id number] 00:00:00 Test Item Value Reference Range Interpretation Comments GLUCOSE (test code = 2217) 209 MG/DL BUN (test code = 2208) 44 MG/DL CREATININE (test code = 2214) 1.50 MG/DL eGFR AMER. (test code 41 ML/MIN/1.73 = 99047) eGFR NON- AMER. (test 35 ML/MIN/1.73 code = 70646) CALC BUN/CREAT (test code = 29 RATIO [...] code = 2219) 13 U/L COMPREHENSIVE METABOLIC [id number] 00:00:00 Test Item Value Reference Range Interpretation Comments GLUCOSE (test code = 2217) 209 MG/DL BUN (test code = 2208) 44 MG/DL CREATININE (test code = 2214) 1.50 MG/DL eGFR AMER. (test code 41 ML/MIN/1.73 = 78418) eGFR NON- AMER. (test 35 ML/MIN/1.73 code = 10435) CALC BUN/CREAT (test code = 29 RATIO [...] (test code = 2219) 13 U/L LIPID [id number] 00:00:00 Test Item Value Reference Range Interpretation Comments CHOLESTEROL (test code = 2210) 195 MG/DL TRIGLYCERIDES (test code = 2232) 195 MG/DL HDL CHOLESTEROL (test code = 2220) 49 MG/DL CALC LDL CHOL (test code = 2237) 107 MG/DL RISK RATIO LDL/HDL (test code = 2.18 RATIO 2238) LIPID [id number] 00:00:00 Test Item Value Reference Range Interpretation Comments CHOLESTEROL (test code = 2210) 195 MG/DL TRIGLYCERIDES (test code = 2232) 195 MG/DL HDL CHOLESTEROL (test code = 2220) 49 MG/DL CALC LDL CHOL (test code = 2237) 107 MG/DL RISK RATIO LDL/HDL (test code = 2.18 RATIO 2238) CBC W/AUTO [id number] 00:00:00 Test Item Value Reference Range Interpretation [...] code = 1015) 245 K/UL CBC W/AUTO [id number] 00:00:00 Test Item Value Reference Range Interpretation [...] code = 1015) 245 K/UL CBC W/AUTO [id number] 00:00:00 Test Item Value Reference Range Interpretation [...] (test code = 1015) 245 K/UL HEMOGLOBIN [id number] 00:00:00 Test Item Value Reference Range Interpretation Comments HEMOGLOBIN A1c (test code = 23726) 7.8 % HEMOGLOBIN [id number] 00:00:00 Test Item Value Reference Range Interpretation Comments HEMOGLOBIN A1c (test code = 19770) 7.8 % HEMOGLOBIN [id number] 00:00:00 Test Item Value Reference Range Interpretation Comments HEMOGLOBIN A1c (test code = 70889) 7.8 % COMPREHENSIVE METABOLIC [id number] 00:00:00 Test Item Value Reference Range Interpretation Comments GLUCOSE (test code = 2217) 209 MG/DL BUN (test code = 2208) 44 MG/DL CREATININE (test code = 2214) 1.50 MG/DL eGFR AMER. (test code 41 ML/MIN/1.73 = 27515) eGFR NON- AMER. (test 35 ML/MIN/1.73 code = 62723) CALC BUN/CREAT (test code = 29 RATIO [...] code = 2219) 13 U/L COMPREHENSIVE METABOLIC [id number] 00:00:00 Test Item Value Reference Range Interpretation Comments GLUCOSE (test code = 2217) 209 MG/DL BUN (test code = 2208) 44 MG/DL CREATININE (test code = 2214) 1.50 MG/DL eGFR AMER. (test code 41 ML/MIN/1.73 = 94302) eGFR NON- AMER. (test 35 ML/MIN/1.73 code = 58281) CALC BUN/CREAT (test code = 29 RATIO [...] (test code = 2219) 13 U/L LIPID [id number] 00:00:00 Test Item Value Reference Range Interpretation Comments CHOLESTEROL (test code = 2210) 195 MG/DL TRIGLYCERIDES (test code = 2232) 195 MG/DL HDL CHOLESTEROL (test code = 2220) 49 MG/DL CALC LDL CHOL (test code = 2237) 107 MG/DL RISK RATIO LDL/HDL (test code = 2.18 RATIO 2238) LIPID [id number] 00:00:00 Test Item Value Reference Range Interpretation Comments CHOLESTEROL (test code = 2210) 195 MG/DL TRIGLYCERIDES (test code = 2232) 195 MG/DL HDL CHOLESTEROL (test code = 2220) 49 MG/DL CALC LDL CHOL (test code = 2237) 107 MG/DL RISK RATIO LDL/HDL (test code = 2.18 RATIO 2238) CBC W/AUTO [id number] 00:00:00 Test Item Value Reference Range Interpretation [...] code = 1015) 245 K/UL CBC W/AUTO [id number] 00:00:00 Test Item Value Reference Range Interpretation [...] code = 1015) 245 K/UL CBC W/AUTO [id number] 00:00:00 Test Item Value Reference Range Interpretation [...] (test code = 1015) 245 K/UL HEMOGLOBIN [id number] 00:00:00 Test Item Value Reference Range Interpretation Comments HEMOGLOBIN A1c (test code = 97048) 7.8 % HEMOGLOBIN [id number] 00:00:00 Test Item Value Reference Range Interpretation Comments HEMOGLOBIN A1c (test code = 15169) 7.8 % HEMOGLOBIN [id number] 00:00:00 Test Item Value Reference Range Interpretation Comments HEMOGLOBIN A1c (test code = 14618) 7.8 % CBC W/AUTO DIFF WITH PLATELETS [...] Interpretation Comments HEMOGLOBIN A1c (test code = 25935) 7.3 % HEMOGLOBIN A1c [ADDED]2018-02-14 00:00:00 Test Item Value Reference Range Interpretation Comments HEMOGLOBIN A1c (test code = 52490) 7.3 % HEMOGLOBIN A1c [ADDED]2018-02-14 00:00:00 Test Item Value Reference Range Interpretation Comments HEMOGLOBIN A1c (test code = 38940) 7.3 % LIPID PANEL [ADDED]2018-02-14 00:00:00 Test [...] eGFR AMER. (test code 55 ML/MIN/1.73 = 79557) eGFR NON- AMER. (test 48 ML/MIN/1.73 code = 84947) CALC BUN/CREAT (test code = 17 RATIO [...] eGFR AMER. (test code 55 ML/MIN/1.73 = 20626) eGFR NON- AMER. (test 48 ML/MIN/1.73 code = 12088) CALC BUN/CREAT (test code = 17 RATIO 2235) SODIUM (test code = 2231) 141 MEQ/L POTASSIUM (test code = 2228) 4.5 MEQ/L CHLORIDE (test code = 2215) 106 MEQ/L CARBON DIOXIDE (test code = 22 MEQ/L 6) CALCIUM (test code = 2209) 9.3 MG/DL [...] URINE, RANDOM (test code 226.7 MG/DL = 79782) CALC ALBUMIN/CREAT, RND (test 1246 MG/G code = 31312) ALBUMIN/CREATININE RATIO, RANDOM URINE [ADDED]2018-02-14 00:00:00 Test Item Value Reference Range Interpretation Comments CREATININE, URINE, CONC. (test 181.9 MG/DL code = 2072) ALBUMIN, URINE, RANDOM (test code 226.7 MG/DL = 15826) CALC ALBUMIN/CREAT, RND (test 1246 MG/G code = 51859) CBC W/AUTO DIFF WITH PLATELETS [ADDED]2018-02-14 00:00:00 [...] Interpretation Comments HEMOGLOBIN A1c (test code = 44951) 7.3 % HEMOGLOBIN A1c [ADDED]2018-02-14 00:00:00 Test Item Value Reference Range Interpretation Comments HEMOGLOBIN A1c (test code = 75454) 7.3 % HEMOGLOBIN A1c [ADDED]2018-02-14 00:00:00 Test Item Value Reference Range Interpretation Comments HEMOGLOBIN A1c (test code = 05228) 7.3 % HEMOGLOBIN A1c [ADDED]2018-02-14 00:00:00 Test Item Value Reference Range Interpretation Comments HEMOGLOBIN A1c (test code = 85052) 7.3 % LIPID PANEL [ADDED]2018-02-14 00:00:00 Test [...] eGFR AMER. (test code 55 ML/MIN/1.73 = 48595) eGFR NON- AMER. (test 48 ML/MIN/1.73 code = 18107) CALC BUN/CREAT (test code = 17 RATIO [...] eGFR AMER. (test code 55 ML/MIN/1.73 = 75875) eGFR NON- AMER. (test 48 ML/MIN/1.73 code = 21872) CALC BUN/CREAT (test code = 17 RATIO 2235) SODIUM (test code = 2231) 141 MEQ/L POTASSIUM (test code = 2228) 4.5 MEQ/L CHLORIDE (test code = 2215) 106 MEQ/L CARBON DIOXIDE (test code = 22 MEQ/L 6) CALCIUM (test code = 2209) 9.3 MG/DL [...] (test code = 2219) 13 U/L HEMOGLOBIN A1c [ADDED]2018-02-14 00:00:00 Test Item Value Reference Range Interpretation Comments HEMOGLOBIN A1c (test code = 22523) 7.3 % ALBUMIN/CREATININE RATIO, RANDOM URINE [ADDED]2018-02-14 00:00:00 Test Item Value Reference Range Interpretation Comments CREATININE, URINE, CONC. (test 181.9 MG/DL code = 2072) ALBUMIN, URINE, RANDOM (test code 226.7 MG/DL = 24927) CALC ALBUMIN/CREAT, RND (test 1246 MG/G code = 99841) ALBUMIN/CREATININE RATIO, RANDOM URINE [ADDED]2018-02-14 00:00:00 Test Item Value Reference Range Interpretation Comments CREATININE, URINE, CONC. (test 181.9 MG/DL code = 2072) ALBUMIN, URINE, RANDOM (test code 226.7 MG/DL = 89924) CALC ALBUMIN/CREAT, RND (test 1246 MG/G code = 90425) LIPID PANEL [ADDED]2018-02-14 00:00:00 Test Item Value Reference Range Interpretation Comments CHOLESTEROL (test code = 2210) 261 MG/DL TRIGLYCERIDES (test code = 2232) 239 MG/DL HDL CHOLESTEROL (test code = 2220) 52 MG/DL CALC LDL CHOL (test code = 2237) 161 MG/DL RISK RATIO LDL/HDL (test code = 3.10 RATIO 2238) CBC W/AUTO DIFF WITH PLATELETS [ADDED]2018-02-14 00:00:00 [...] Interpretation Comments HEMOGLOBIN A1c (test code = 73204) 7.3 % HEMOGLOBIN A1c [ADDED]2018-02-14 00:00:00 Test Item Value Reference Range Interpretation Comments HEMOGLOBIN A1c (test code = 43018) 7.3 % COMPREHENSIVE METABOLIC PANEL [ADDED]2018-02-14 00:00:00 Test Item Value Reference Range Interpretation Comments GLUCOSE (test code = 2217) 177 MG/DL BUN (test code = 2208) 20 MG/DL CREATININE (test code = 2214) 1.17 MG/DL eGFR AMER. (test code 55 ML/MIN/1.73 = 08933) eGFR NON- AMER. (test 48 ML/MIN/1.73 code = 65640) CALC BUN/CREAT (test code = 17 RATIO [...] (test code = 2219) 13 U/L HEMOGLOBIN A1c [ADDED]2018-02-14 00:00:00 Test Item Value Reference Range Interpretation Comments HEMOGLOBIN A1c (test code = 20569) 7.3 % LIPID PANEL [ADDED]2018-02-14 00:00:00 Test [...] eGFR AMER. (test code 55 ML/MIN/1.73 = 21398) eGFR NON- AMER. (test 48 ML/MIN/1.73 code = 12359) CALC BUN/CREAT (test code = 17 RATIO [...] eGFR AMER. (test code 55 ML/MIN/1.73 = 65701) eGFR NON- AMER. (test 48 ML/MIN/1.73 code = 11495) CALC BUN/CREAT (test code = 17 RATIO [...] URINE, RANDOM (test code 226.7 MG/DL = 53824) CALC ALBUMIN/CREAT, RND (test 1246 MG/G code = 81026) ALBUMIN/CREATININE RATIO, RANDOM URINE [ADDED]2018-02-14 00:00:00 Test Item Value Reference Range Interpretation Comments CREATININE, URINE, CONC. (test 181.9 MG/DL code = 2072) ALBUMIN, URINE, RANDOM (test code 226.7 MG/DL = 42071) CALC ALBUMIN/CREAT, RND (test 1246 MG/G code = 19733) ALBUMIN/CREATININE RATIO, RANDOM URINE [ADDED]2018-02-14 00:00:00 Test Item Value Reference Range Interpretation Comments CREATININE, URINE, CONC. (test 181.9 MG/DL code = 2072) ALBUMIN, URINE, RANDOM (test code 226.7 MG/DL = 00414) CALC ALBUMIN/CREAT, RND (test 1246 MG/G code = 80578) CBC W/AUTO DIFF WITH PLATELETS [ADDED]2018-02-14 00:00:00 [...] Interpretation Comments HEMOGLOBIN A1c (test code = 26670) 7.3 % HEMOGLOBIN A1c [ADDED]2018-02-14 00:00:00 Test Item Value Reference Range Interpretation Comments HEMOGLOBIN A1c (test code = 79401) 7.3 % HEMOGLOBIN A1c [ADDED]2018-02-14 00:00:00 Test Item Value Reference Range Interpretation Comments HEMOGLOBIN A1c (test code = 40353) 7.3 % LIPID PANEL [ADDED]2018-02-14 00:00:00 Test [...] eGFR AMER. (test code 55 ML/MIN/1.73 = 22230) eGFR NON- AMER. (test 48 ML/MIN/1.73 code = 95351) CALC BUN/CREAT (test code = 17 RATIO [...] eGFR AMER. (test code 55 ML/MIN/1.73 = 60271) eGFR NON- AMER. (test 48 ML/MIN/1.73 code = 55493) CALC BUN/CREAT (test code = 17 RATIO 2235) SODIUM (test code = 2231) 141 MEQ/L POTASSIUM (test code = 2228) 4.5 MEQ/L CHLORIDE (test code = 2215) 106 MEQ/L CARBON DIOXIDE (test code = 22 MEQ/L 2205) CALCIUM (test code = 2209) 9.3 MG/DL PROTEIN, TOTAL (test code = 7.3 G/DL 2228) ALBUMIN (test code = 220) 4.2 G/DL CALC GLOBULIN (test code = [...] URINE, RANDOM (test code 226.7 MG/DL = 69164) CALC ALBUMIN/CREAT, RND (test 1246 MG/G code = 03909) ALBUMIN/CREATININE RATIO, RANDOM URINE [ADDED]2018-02-14 00:00:00 Test Item Value Reference Range Interpretation Comments CREATININE, URINE, CONC. (test 181.9 MG/DL code = 2072) ALBUMIN, URINE, RANDOM (test code 226.7 MG/DL = 71780) CALC ALBUMIN/CREAT, RND (test 1246 MG/G code = 05144) CBC W/AUTO DIFF WITH PLATELETS [ADDED]2018-02-14 00:00:00 [...] Interpretation Comments HEMOGLOBIN A1c (test code = 06323) 7.3 % HEMOGLOBIN A1c [ADDED]2018-02-14 00:00:00 Test Item Value Reference Range Interpretation Comments HEMOGLOBIN A1c (test code = 34213) 7.3 % LIPID PANEL [ADDED]2018-02-14 00:00:00 Test [...] eGFR AMER. (test code 55 ML/MIN/1.73 = 28112) eGFR NON- AMER. (test 48 ML/MIN/1.73 code = 18347) CALC BUN/CREAT (test code = 17 RATIO [...] URINE, RANDOM (test code 226.7 MG/DL = 51840) CALC ALBUMIN/CREAT, RND (test 1246 MG/G code = 65786) CBC W/AUTO DIFF WITH PLATELETS [ADDED]2018-02-14 00:00:00 [...] Interpretation Comments HEMOGLOBIN A1c (test code = 06070) 7.3 % HEMOGLOBIN A1c [ADDED]2018-02-14 00:00:00 Test Item Value Reference Range Interpretation Comments HEMOGLOBIN A1c (test code = 40073) 7.3 % HEMOGLOBIN A1c [ADDED]2018-02-14 00:00:00 Test Item Value Reference Range Interpretation Comments HEMOGLOBIN A1c (test code = 07908) 7.3 % LIPID PANEL [ADDED]2018-02-14 00:00:00 Test [...] eGFR AMER. (test code 55 ML/MIN/1.73 = 90120) eGFR NON- AMER. (test 48 ML/MIN/1.73 code = 11408) CALC BUN/CREAT (test code = 17 RATIO [...] eGFR AMER. (test code 55 ML/MIN/1.73 = 31180) eGFR NON- AMER. (test 48 ML/MIN/1.73 code = 23310) CALC BUN/CREAT (test code = 17 RATIO [...] URINE, RANDOM (test code 226.7 MG/DL = 65732) CALC ALBUMIN/CREAT, RND (test 1246 MG/G code = 39396) ALBUMIN/CREATININE RATIO, RANDOM URINE [ADDED]2018-02-14 00:00:00 Test Item Value Reference Range Interpretation Comments CREATININE, URINE, CONC. (test 181.9 MG/DL code = 2072) ALBUMIN, URINE, RANDOM (test code 226.7 MG/DL = 74525) CALC ALBUMIN/CREAT, RND (test 1246 MG/G code = 22763) CBC W/AUTO DIFF WITH PLATELETS [ADDED]2018-02-14 00:00:00 [...] Interpretation Comments HEMOGLOBIN A1c (test code = 95803) 7.3 % HEMOGLOBIN A1c [ADDED]2018-02-14 00:00:00 Test Item Value Reference Range Interpretation Comments HEMOGLOBIN A1c (test code = 49253) 7.3 % HEMOGLOBIN A1c [ADDED]2018-02-14 00:00:00 Test Item Value Reference Range Interpretation Comments HEMOGLOBIN A1c (test code = 03181) 7.3 % LIPID PANEL [ADDED]2018-02-14 00:00:00 Test [...] eGFR AMER. (test code 55 ML/MIN/1.73 = 05227) eGFR NON- AMER. (test 48 ML/MIN/1.73 code = 83544) CALC BUN/CREAT (test code = 17 RATIO [...] eGFR AMER. (test code 55 ML/MIN/1.73 = 78224) eGFR NON- AMER. (test 48 ML/MIN/1.73 code = 15179) CALC BUN/CREAT (test code = 17 RATIO [...] URINE, RANDOM (test code 226.7 MG/DL = 82401) CALC ALBUMIN/CREAT, RND (test 1246 MG/G code = 73728) ALBUMIN/CREATININE RATIO, RANDOM URINE [ADDED]2018-02-14 00:00:00 Test Item Value Reference Range Interpretation Comments CREATININE, URINE, CONC. (test 181.9 MG/DL code = 2072) ALBUMIN, URINE, RANDOM (test code 226.7 MG/DL = 03797) CALC ALBUMIN/CREAT, RND (test 1246 MG/G code = 20750) 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 [id number] 00:00:00 Test Item Value Reference Range Interpretation Comments WEEMS (Sm) ANTIBODY (test code = <0.2 AI 13736) 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 ANTIBODY (test code = 01037) 6.4 AI HEMOGLOBIN [id number] 00:00:00 Test Item Value Reference Range Interpretation Comments HEMOGLOBIN A1c (test code = 74504) 7.5 % HEMOGLOBIN [id number] 00:00:00 Test Item Value Reference Range Interpretation Comments HEMOGLOBIN A1c (test code = 78669) 7.5 % 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 [id number] 00:00:00 Test Item Value Reference Range Interpretation Comments WEEMS (Sm) ANTIBODY (test code = <0.2 AI 47401) 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 ANTIBODY (test code = 10783) 6.4 AI HEMOGLOBIN [id number] 00:00:00 Test Item Value Reference Range Interpretation Comments HEMOGLOBIN A1c (test code = 08566) 7.5 % DNA DS ANTIBODY [id number] 00:00:00 Test Item Value Reference Range Interpretation Comments dsDNA ANTIBODY REFLEX (test code = NEGATIVE 98522) LIPID PANEL [ADDED]2017-07-31 00:00:00 Test Item Value [...] = 1.51 RATIO 2238) DNA DS ANTIBODY [id number] 00:00:00 Test Item Value Reference Range Interpretation Comments dsDNA ANTIBODY REFLEX (test code = NEGATIVE 42001) DNA DS [id number] 00:00:00 Test Item Value Reference Range Interpretation Comments dsDNA ANTIBODY (test code = 4287) <1.0 IU/ML DNA DS [id number] 00:00:00 Test Item Value Reference Range Interpretation Comments dsDNA ANTIBODY (test code = 4287) <1.0 IU/ML 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 [id number] 00:00:00 Test Item Value Reference Range Interpretation Comments WEEMS (Sm) ANTIBODY (test code = <0.2 AI 36003) 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 ANTIBODY (test code = 67484) 6.4 AI HEMOGLOBIN [id number] 00:00:00 Test Item Value Reference Range Interpretation Comments HEMOGLOBIN A1c (test code = 46781) 7.5 % WE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 [id number] 00:00:00 Test Item Value Reference Range Interpretation Comments WEEMS (Sm) ANTIBODY (test code = <0.2 AI 87517) 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 ANTIBODY (test code = 10254) 6.4 AI HEMOGLOBIN [id number] 00:00:00 Test Item Value Reference Range Interpretation Comments HEMOGLOBIN A1c (test code = 88138) 7.5 % WE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 [id number] 00:00:00 Test Item Value Reference Range Interpretation Comments WEEMS (Sm) ANTIBODY (test code = <0.2 AI 40667) 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 ANTIBODY (test code = 03585) 6.4 AI HEMOGLOBIN [id number] 00:00:00 Test Item Value Reference Range Interpretation Comments HEMOGLOBIN A1c (test code = 10220) 7.5 % HEMOGLOBIN [id number] 00:00:00 Test Item Value Reference Range Interpretation Comments HEMOGLOBIN A1c (test code = 39397) 7.5 % HEMOGLOBIN [id number] 00:00:00 Test Item Value Reference Range Interpretation Comments HEMOGLOBIN A1c (test code = 42794) 7.5 % LIPID PANEL [ADDED]2017-07-31 00:00:00 Test [...] = 1.51 RATIO 2238) DNA DS ANTIBODY [id number] 00:00:00 Test Item Value Reference Range Interpretation Comments dsDNA ANTIBODY REFLEX (test code = NEGATIVE 25275) DNA DS ANTIBODY [id number] 00:00:00 Test Item Value Reference Range Interpretation Comments dsDNA ANTIBODY REFLEX (test code = NEGATIVE 62781) DNA DS ANTIBODY [id number] 00:00:00 Test Item Value Reference Range Interpretation Comments dsDNA ANTIBODY REFLEX (test code = NEGATIVE 39325) LIPID PANEL [ADDED]2017-07-31 00:00:00 Test Item Value Reference Range Interpretation Comments CHOLESTEROL (test code = 2210) 179 MG/DL TRIGLYCERIDES (test code = 2232) 193 MG/DL HDL CHOLESTEROL (test code = 2220) 56 MG/DL CALC LDL CHOL (test code = 2237) 84 MG/DL RISK RATIO LDL/HDL (test code = 1.51 RATIO 2238) DNA DS [id number] 00:00:00 Test Item Value Reference Range Interpretation Comments dsDNA ANTIBODY (test code = 4287) <1.0 IU/ML DNA DS [id number] 00:00:00 Test Item Value Reference Range Interpretation Comments dsDNA ANTIBODY (test code = 4287) <1.0 IU/ML DNA DS [id number] 00:00:00 Test Item Value Reference Range Interpretation Comments dsDNA ANTIBODY (test code = 4287) <1.0 IU/ML EWEMS AND 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 [id number] 00:00:00 Test Item Value Reference Range Interpretation Comments WEEMS (Sm) ANTIBODY (test code = <0.2 AI 40038) 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 ANTIBODY (test code = 24452) 6.4 AI WEEMS AND 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 [id number] 00:00:00 Test Item Value Reference Range Interpretation Comments WEEMS (Sm) ANTIBODY (test code = <0.2 AI 12456) 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 ANTIBODY (test code = 90098) 6.4 AI HEMOGLOBIN [id number] 00:00:00 Test Item Value Reference Range Interpretation Comments HEMOGLOBIN A1c (test code = 60562) 7.5 % HEMOGLOBIN [id number] 00:00:00 Test Item Value Reference Range Interpretation Comments HEMOGLOBIN A1c (test code = 78748) 7.5 % HEMOGLOBIN [id number] 00:00:00 Test Item Value Reference Range Interpretation Comments HEMOGLOBIN A1c (test code = 22688) 7.5 % LIPID PANEL [ADDED]2017-07-31 00:00:00 Test [...] = 1.51 RATIO 2238) DNA DS ANTIBODY [id number] 00:00:00 Test Item Value Reference Range Interpretation Comments dsDNA ANTIBODY REFLEX (test code = NEGATIVE 22250) DNA DS ANTIBODY [id number] 00:00:00 Test Item Value Reference Range Interpretation Comments dsDNA ANTIBODY REFLEX (test code = NEGATIVE 34149) DNA DS [id number] 00:00:00 Test Item Value Reference Range Interpretation Comments dsDNA ANTIBODY (test code = 4287) <1.0 IU/ML DNA DS [id number] 00:00:00 Test Item Value Reference Range Interpretation Comments dsDNA ANTIBODY (test code = 4287) <1.0 IU/ML WEEMS AND 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 [id number] 00:00:00 Test Item Value Reference Range Interpretation Comments WEEMS (Sm) ANTIBODY (test code = <0.2 AI 71187) 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 ANTIBODY (test code = 31748) 6.4 AI HEMOGLOBIN [id number] 00:00:00 Test Item Value Reference Range Interpretation Comments HEMOGLOBIN A1c (test code = 13709) 7.5 % WEEMS AND 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 [id number] 00:00:00 Test Item Value Reference Range Interpretation Comments WEEMS (Sm) ANTIBODY (test code = <0.2 AI 66687) 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 ANTIBODY (test code = 53072) 6.4 AI HEMOGLOBIN [id number] 00:00:00 Test Item Value Reference Range Interpretation Comments HEMOGLOBIN A1c (test code = 28489) 7.5 % HEMOGLOBIN [id number] 00:00:00 Test Item Value Reference Range Interpretation Comments HEMOGLOBIN A1c (test code = 09894) 7.5 % DNA DS ANTIBODY [id number] 00:00:00 Test Item Value Reference Range Interpretation Comments dsDNA ANTIBODY REFLEX (test code = NEGATIVE 57032) LIPID PANEL [ADDED]2017-07-31 00:00:00 Test Item Value [...] = 1.51 RATIO 2238) DNA DS ANTIBODY [id number] 00:00:00 Test Item Value Reference Range Interpretation Comments dsDNA ANTIBODY REFLEX (test code = NEGATIVE 96969) DNA DS [id number] 00:00:00 Test Item Value Reference Range Interpretation Comments dsDNA ANTIBODY (test code = 4287) <1.0 IU/ML DNA DS [id number] 00:00:00 Test Item Value Reference Range Interpretation Comments dsDNA ANTIBODY (test code = 4287) <1.0 IU/ML WEEMS AND 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 [id number] 00:00:00 Test Item Value Reference Range Interpretation Comments WEEMS (Sm) ANTIBODY (test code = <0.2 AI 85367) 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 ANTIBODY (test code = 16369) 6.4 AI HEMOGLOBIN [id number] 00:00:00 Test Item Value Reference Range Interpretation Comments HEMOGLOBIN A1c (test code = 11158) 7.5 % HEMOGLOBIN [id number] 00:00:00 Test Item Value Reference Range Interpretation Comments HEMOGLOBIN A1c (test code = 11221) 7.5 % LIPID PANEL [ADDED]2017-07-31 00:00:00 Test Item Value Reference Range Interpretation Comments CHOLESTEROL (test code = 2210) 179 MG/DL TRIGLYCERIDES (test code = 2232) 193 MG/DL HDL CHOLESTEROL (test code = 2220) 56 MG/DL CALC LDL CHOL (test code = 2237) 84 MG/DL RISK RATIO LDL/HDL (test code = 1.51 RATIO 2238) DNA DS ANTIBODY [id number] 00:00:00 Test Item Value Reference Range Interpretation Comments dsDNA ANTIBODY REFLEX (test code = NEGATIVE 97481) DNA DS [id number] 00:00:00 Test Item Value Reference Range Interpretation Comments dsDNA ANTIBODY (test code = 4287) <1.0 IU/ML HEMOGLOBIN [id number] 00:00:00 Test Item Value Reference Range Interpretation Comments HEMOGLOBIN A1c (test code = 74638) 7.5 % HEMOGLOBIN [id number] 00:00:00 Test Item Value Reference Range Interpretation Comments HEMOGLOBIN A1c (test code = 97147) 7.5 % WEEMS AND 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 [id number] 00:00:00 Test Item Value Reference Range Interpretation Comments WEEMS (Sm) ANTIBODY (test code = <0.2 AI 15286) 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 ANTIBODY (test code = 75094) 6.4 AI HEMOGLOBIN [id number] 00:00:00 Test Item Value Reference Range Interpretation Comments HEMOGLOBIN A1c (test code = 60226) 7.5 % WEEMS AND 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 [id number] 00:00:00 Test Item Value Reference Range Interpretation Comments WEEMS (Sm) ANTIBODY (test code = <0.2 AI 41302) 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 ANTIBODY (test code = 65029) 6.4 AI DNA DS ANTIBODY [id number] 00:00:00 Test Item Value Reference Range Interpretation Comments dsDNA ANTIBODY REFLEX (test code = NEGATIVE 17129) DNA DS ANTIBODY [id number] 00:00:00 Test Item Value Reference Range Interpretation Comments dsDNA ANTIBODY REFLEX (test code = NEGATIVE 68486) LIPID PANEL [ADDED]2017-07-31 00:00:00 Test Item Value [...] code = 1.51 RATIO 2238) DNA DS [id number] 00:00:00 Test Item Value Reference Range Interpretation Comments dsDNA ANTIBODY (test code = 4287) <1.0 IU/ML DNA DS [id number] 00:00:00 Test Item Value Reference Range Interpretation Comments dsDNA ANTIBODY (test code = 4287) <1.0 IU/ML HEMOGLOBIN [id number] 00:00:00 Test Item Value Reference Range Interpretation Comments HEMOGLOBIN A1c (test code = 06470) 7.5 % WEEMS AND 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 [id number] 00:00:00 Test Item Value Reference Range Interpretation Comments WEEMS (Sm) ANTIBODY (test code = <0.2 AI 10469) 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 ANTIBODY (test code = 90821) 6.4 AI HEMOGLOBIN [id number] 00:00:00 Test Item Value Reference Range Interpretation Comments HEMOGLOBIN A1c (test code = 35519) 7.5 % HEMOGLOBIN [id number] 00:00:00 Test Item Value Reference Range Interpretation Comments HEMOGLOBIN A1c (test code = 67169) 7.5 % WEEMS AND 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 [id number] 00:00:00 Test Item Value Reference Range Interpretation Comments WEEMS (Sm) ANTIBODY (test code = <0.2 AI 97290) 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 ANTIBODY (test code = 45740) 6.4 AI DNA DS ANTIBODY [id number] 00:00:00 Test Item Value Reference Range Interpretation Comments dsDNA ANTIBODY REFLEX (test code = NEGATIVE 74246) LIPID PANEL [ADDED]2017-07-31 00:00:00 Test Item Value [...] = 1.51 RATIO 2238) DNA DS ANTIBODY [id number] 00:00:00 Test Item Value Reference Range Interpretation Comments dsDNA ANTIBODY REFLEX (test code = NEGATIVE 85140) DNA DS [id number] 00:00:00 Test Item Value Reference Range Interpretation Comments dsDNA ANTIBODY (test code = 4287) <1.0 IU/ML DNA DS [id number] 00:00:00 Test Item Value Reference Range Interpretation Comments dsDNA ANTIBODY (test code = 4287) <1.0 IU/ML ARMEN TITER AND PATTERN [REFLEX]2017-07-18 00:00:00 Test Item Value Reference Range Interpretation Comments PATTERN (test code = 54355) SS-A ARMEN TITER (test code = 3550) 1:40 TITER METHOD (test code = 23721) (NOTE) ARMEN TITER AND PATTERN [REFLEX]2017-07-18 00:00:00 Test Item Value Reference Range Interpretation Comments PATTERN (test code = 10006) SS-A ARMEN TITER (test code = 3550) 1:40 TITER METHOD (test code = 30677) (NOTE) ARMEN TITER AND PATTERN [REFLEX]2017-07-18 00:00:00 Test Item Value Reference Range Interpretation Comments PATTERN (test code = 04934) SS-A ARMEN TITER (test code = 3550) 1:40 TITER METHOD (test code = 93010) (NOTE) ARMEN TITER AND PATTERN [REFLEX]2017-07-18 00:00:00 Test Item Value Reference Range Interpretation Comments PATTERN (test code = 14218) SS-A ARMEN TITER (test code = 3550) 1:40 TITER METHOD (test code = 07115) (NOTE) ARMEN TITER AND PATTERN [REFLEX]2017-07-18 00:00:00 Test Item Value Reference Range Interpretation Comments PATTERN (test code = 85530) SS-A ARMEN TITER (test code = 3550) 1:40 TITER METHOD (test code = 79894) (NOTE) ARMEN TITER AND PATTERN [REFLEX]2017-07-18 00:00:00 Test Item Value Reference Range Interpretation Comments PATTERN (test code = 25125) SS-A ARMEN TITER (test code = 3550) 1:40 TITER METHOD (test code = 29788) (NOTE) ARMEN TITER AND PATTERN [REFLEX]2017-07-18 00:00:00 Test Item Value Reference Range Interpretation Comments PATTERN (test code = 16188) SS-A ARMEN TITER (test code = 3550) 1:40 TITER METHOD (test code = 39655) (NOTE) ARMEN TITER AND PATTERN [REFLEX]2017-07-18 00:00:00 Test Item Value Reference Range Interpretation Comments PATTERN (test code = 44941) SS-A ARMEN TITER (test code = 3550) 1:40 TITER METHOD (test code = 44936) (NOTE) VITAMIN D, 25 [id number] 00:00:00 Test Item Value Reference Range Interpretation Comments VITAMIN D, 25 OH (test code = 4958) 24 NG/ML VITAMIN D, 25 [id number] 00:00:00 Test Item Value Reference Range Interpretation Comments VITAMIN D, 25 OH (test code = 4958) 24 NG/ML RHEUMATOID FACTOR, [id number] 00:00:00 Test Item Value Reference Range Interpretation Comments RHEUMATOID FACTOR, QUANT (test code 11 IU/ML = 3502) RHEUMATOID FACTOR, [id number] 00:00:00 Test Item Value Reference Range Interpretation Comments RHEUMATOID FACTOR, QUANT (test code 11 IU/ML = 3502) RHEUMATOID FACTOR, [id number] 00:00:00 Test Item Value Reference Range Interpretation Comments RHEUMATOID FACTOR, QUANT (test code 11 IU/ML = 3502) SEDIMENTATION [id number] 00:00:00 Test Item Value Reference Range Interpretation Comments SEDIMENTATION RATE (test code = 40 MM/HOUR 1017) SEDIMENTATION [id number] 00:00:00 Test Item Value Reference Range Interpretation Comments SEDIMENTATION RATE (test code = 40 MM/HOUR 1017) C-REACTIVE [id number] 00:00:00 Test Item Value Reference Range Interpretation Comments C-REACTIVE PROTEIN (test code = 0.2 MG/DL 3513) C-REACTIVE [id number] 00:00:00 Test Item Value Reference Range Interpretation Comments C-REACTIVE PROTEIN (test code = 0.2 MG/DL 3513) ARMEN (ANTI-NUCLEAR AB) WITH REFLEX [id number] 00:00:00 Test Item Value Reference Range Interpretation Comments ANTI-NUCLEAR ANTIBODIES (test code = POSITIVE 3506) ARMEN (ANTI-NUCLEAR AB) WITH REFLEX [id number] 00:00:00 Test Item Value Reference Range Interpretation Comments ANTI-NUCLEAR ANTIBODIES (test code = POSITIVE 3506) VITAMIN D, 25 [id number] 00:00:00 Test Item Value Reference Range Interpretation Comments VITAMIN D, 25 OH (test code = 4958) 24 NG/ML VITAMIN D, 25 [id number] 00:00:00 Test Item Value Reference Range Interpretation Comments VITAMIN D, 25 OH (test code = 4958) 24 NG/ML VITAMIN D, 25 [id number] 00:00:00 Test Item Value Reference Range Interpretation Comments VITAMIN D, 25 OH (test code = 4958) 24 NG/ML RHEUMATOID FACTOR, [id number] 00:00:00 Test Item Value Reference Range Interpretation Comments RHEUMATOID FACTOR, QUANT (test code 11 IU/ML = 3502) RHEUMATOID FACTOR, [id number] 00:00:00 Test Item Value Reference Range Interpretation Comments RHEUMATOID FACTOR, QUANT (test code 11 IU/ML = 3502) RHEUMATOID FACTOR, [id number] 00:00:00 Test Item Value Reference Range Interpretation Comments RHEUMATOID FACTOR, QUANT (test code 11 IU/ML = 3502) RHEUMATOID FACTOR, [id number] 00:00:00 Test Item Value Reference Range Interpretation Comments RHEUMATOID FACTOR, QUANT (test code 11 IU/ML = 3502) SEDIMENTATION [id number] 00:00:00 Test Item Value Reference Range Interpretation Comments SEDIMENTATION RATE (test code = 40 MM/HOUR 1017) SEDIMENTATION [id number] 00:00:00 Test Item Value Reference Range Interpretation Comments SEDIMENTATION RATE (test code = 40 MM/HOUR 1017) C-REACTIVE [id number] 00:00:00 Test Item Value Reference Range Interpretation Comments C-REACTIVE PROTEIN (test code = 0.2 MG/DL 3513) C-REACTIVE [id number] 00:00:00 Test Item Value Reference Range Interpretation Comments C-REACTIVE PROTEIN (test code = 0.2 MG/DL 3513) ARMEN (ANTI-NUCLEAR AB) WITH REFLEX [id number] 00:00:00 Test Item Value Reference Range Interpretation Comments ANTI-NUCLEAR ANTIBODIES (test code = POSITIVE 3506) ARMEN (ANTI-NUCLEAR AB) WITH REFLEX [id number] 00:00:00 Test Item Value Reference Range Interpretation Comments ANTI-NUCLEAR ANTIBODIES (test code = POSITIVE 3506) RHEUMATOID FACTOR, [id number] 00:00:00 Test Item Value Reference Range Interpretation Comments RHEUMATOID FACTOR, QUANT (test code 11 IU/ML = 3502) SEDIMENTATION [id number] 00:00:00 Test Item Value Reference Range Interpretation Comments SEDIMENTATION RATE (test code = 40 MM/HOUR 1017) VITAMIN D, 25 [id number] 00:00:00 Test Item Value Reference Range Interpretation Comments VITAMIN D, 25 OH (test code = 4958) 24 NG/ML VITAMIN D, 25 [id number] 00:00:00 Test Item Value Reference Range Interpretation Comments VITAMIN D, 25 OH (test code = 4958) 24 NG/ML RHEUMATOID FACTOR, [id number] 00:00:00 Test Item Value Reference Range Interpretation Comments RHEUMATOID FACTOR, QUANT (test code 11 IU/ML = 3502) C-REACTIVE [id number] 00:00:00 Test Item Value Reference Range Interpretation Comments C-REACTIVE PROTEIN (test code = 0.2 MG/DL 3513) RHEUMATOID FACTOR, [id number] 00:00:00 Test Item Value Reference Range Interpretation Comments RHEUMATOID FACTOR, QUANT (test code 11 IU/ML = 3502) RHEUMATOID FACTOR, [id number] 00:00:00 Test Item Value Reference Range Interpretation Comments RHEUMATOID FACTOR, QUANT (test code 11 IU/ML = 3502) SEDIMENTATION [id number] 00:00:00 Test Item Value Reference Range Interpretation Comments SEDIMENTATION RATE (test code = 40 MM/HOUR 1017) SEDIMENTATION [id number] 00:00:00 Test Item Value Reference Range Interpretation Comments SEDIMENTATION RATE (test code = 40 MM/HOUR 1017) ARMEN (ANTI-NUCLEAR AB) WITH REFLEX [id number] 00:00:00 Test Item Value Reference Range Interpretation Comments ANTI-NUCLEAR ANTIBODIES (test code = POSITIVE 3506) C-REACTIVE [id number] 00:00:00 Test Item Value Reference Range Interpretation Comments C-REACTIVE PROTEIN (test code = 0.2 MG/DL 3513) C-REACTIVE [id number] 00:00:00 Test Item Value Reference Range Interpretation Comments C-REACTIVE PROTEIN (test code = 0.2 MG/DL 3513) ARMEN (ANTI-NUCLEAR AB) WITH REFLEX [id number] 00:00:00 Test Item Value Reference Range Interpretation Comments ANTI-NUCLEAR ANTIBODIES (test code = POSITIVE 3506) ARMEN (ANTI-NUCLEAR AB) WITH REFLEX [id number] 00:00:00 Test Item Value Reference Range Interpretation Comments ANTI-NUCLEAR ANTIBODIES (test code = POSITIVE 3506) VITAMIN D, 25 [id number] 00:00:00 Test Item Value Reference Range Interpretation Comments VITAMIN D, 25 OH (test code = 4958) 24 NG/ML VITAMIN D, 25 [id number] 00:00:00 Test Item Value Reference Range Interpretation Comments VITAMIN D, 25 OH (test code = 4958) 24 NG/ML RHEUMATOID FACTOR, [id number] 00:00:00 Test Item Value Reference Range Interpretation Comments RHEUMATOID FACTOR, QUANT (test code 11 IU/ML = 3502) RHEUMATOID FACTOR, [id number] 00:00:00 Test Item Value Reference Range Interpretation Comments RHEUMATOID FACTOR, QUANT (test code 11 IU/ML = 3502) RHEUMATOID FACTOR, [id number] 00:00:00 Test Item Value Reference Range Interpretation Comments RHEUMATOID FACTOR, QUANT (test code 11 IU/ML = 3502) SEDIMENTATION [id number] 00:00:00 Test Item Value Reference Range Interpretation Comments SEDIMENTATION RATE (test code = 40 MM/HOUR 1017) SEDIMENTATION [id number] 00:00:00 Test Item Value Reference Range Interpretation Comments SEDIMENTATION RATE (test code = 40 MM/HOUR 1017) C-REACTIVE [id number] 00:00:00 Test Item Value Reference Range Interpretation Comments C-REACTIVE PROTEIN (test code = 0.2 MG/DL 3513) C-REACTIVE [id number] 00:00:00 Test Item Value Reference Range Interpretation Comments C-REACTIVE PROTEIN (test code = 0.2 MG/DL 3513) ARMEN (ANTI-NUCLEAR AB) WITH REFLEX [id number] 00:00:00 Test Item Value Reference Range Interpretation Comments ANTI-NUCLEAR ANTIBODIES (test code = POSITIVE 3506) ARMEN (ANTI-NUCLEAR AB) WITH REFLEX [id number] 00:00:00 Test Item Value Reference Range Interpretation Comments ANTI-NUCLEAR ANTIBODIES (test code = POSITIVE 3506) VITAMIN D, 25 [id number] 00:00:00 Test Item Value Reference Range Interpretation Comments VITAMIN D, 25 OH (test code = 4958) 24 NG/ML RHEUMATOID FACTOR, [id number] 00:00:00 Test Item Value Reference Range Interpretation Comments RHEUMATOID FACTOR, QUANT (test code 11 IU/ML = 3502) RHEUMATOID FACTOR, [id number] 00:00:00 Test Item Value Reference Range Interpretation Comments RHEUMATOID FACTOR, QUANT (test code 11 IU/ML = 3502) SEDIMENTATION [id number] 00:00:00 Test Item Value Reference Range Interpretation Comments SEDIMENTATION RATE (test code = 40 MM/HOUR 1017) C-REACTIVE [id number] 00:00:00 Test Item Value Reference Range Interpretation Comments C-REACTIVE PROTEIN (test code = 0.2 MG/DL 3513) ARMEN (ANTI-NUCLEAR AB) WITH REFLEX [id number] 00:00:00 Test Item Value Reference Range Interpretation Comments ANTI-NUCLEAR ANTIBODIES (test code = POSITIVE 3506) VITAMIN D, 25 [id number] 00:00:00 Test Item Value Reference Range Interpretation Comments VITAMIN D, 25 OH (test code = 4958) 24 NG/ML VITAMIN D, 25 [id number] 00:00:00 Test Item Value Reference Range Interpretation Comments VITAMIN D, 25 OH (test code = 4958) 24 NG/ML RHEUMATOID FACTOR, [id number] 00:00:00 Test Item Value Reference Range Interpretation Comments RHEUMATOID FACTOR, QUANT (test code 11 IU/ML = 3502) RHEUMATOID FACTOR, [id number] 00:00:00 Test Item Value Reference Range Interpretation Comments RHEUMATOID FACTOR, QUANT (test code 11 IU/ML = 3502) RHEUMATOID FACTOR, [id number] 00:00:00 Test Item Value Reference Range Interpretation Comments RHEUMATOID FACTOR, QUANT (test code 11 IU/ML = 3502) SEDIMENTATION [id number] 00:00:00 Test Item Value Reference Range Interpretation Comments SEDIMENTATION RATE (test code = 40 MM/HOUR 1017) SEDIMENTATION [id number] 00:00:00 Test Item Value Reference Range Interpretation Comments SEDIMENTATION RATE (test code = 40 MM/HOUR 1017) C-REACTIVE [id number] 00:00:00 Test Item Value Reference Range Interpretation Comments C-REACTIVE PROTEIN (test code = 0.2 MG/DL 3513) C-REACTIVE [id number] 00:00:00 Test Item Value Reference Range Interpretation Comments C-REACTIVE PROTEIN (test code = 0.2 MG/DL 3513) ARMEN (ANTI-NUCLEAR AB) WITH REFLEX [id number] 00:00:00 Test Item Value Reference Range Interpretation Comments ANTI-NUCLEAR ANTIBODIES (test code = POSITIVE 3506) ARMEN (ANTI-NUCLEAR AB) WITH REFLEX [id number] 00:00:00 Test Item Value Reference Range Interpretation Comments ANTI-NUCLEAR ANTIBODIES (test code = POSITIVE 3506) VITAMIN D, 25 [id number] 00:00:00 Test Item Value Reference Range Interpretation Comments VITAMIN D, 25 OH (test code = 4958) 24 NG/ML VITAMIN D, 25 [id number] 00:00:00 Test Item Value Reference Range Interpretation Comments VITAMIN D, 25 OH (test code = 4958) 24 NG/ML RHEUMATOID FACTOR, [id number] 00:00:00 Test Item Value Reference Range Interpretation Comments RHEUMATOID FACTOR, QUANT (test code 11 IU/ML = 3502) RHEUMATOID FACTOR, [id number] 00:00:00 Test Item Value Reference Range Interpretation Comments RHEUMATOID FACTOR, QUANT (test code 11 IU/ML = 3502) RHEUMATOID FACTOR, [id number] 00:00:00 Test Item Value Reference Range Interpretation Comments RHEUMATOID FACTOR, QUANT (test code 11 IU/ML = 3502) SEDIMENTATION [id number] 00:00:00 Test Item Value Reference Range Interpretation Comments SEDIMENTATION RATE (test code = 40 MM/HOUR 1017) SEDIMENTATION [id number] 00:00:00 Test Item Value Reference Range Interpretation Comments SEDIMENTATION RATE (test code = 40 MM/HOUR 1017) C-REACTIVE [id number] 00:00:00 Test Item Value Reference Range Interpretation Comments C-REACTIVE PROTEIN (test code = 0.2 MG/DL 3513) C-REACTIVE [id number] 00:00:00 Test Item Value Reference Range Interpretation Comments C-REACTIVE PROTEIN (test code = 0.2 MG/DL 3513) ARMEN (ANTI-NUCLEAR AB) WITH REFLEX [id number] 00:00:00 Test Item Value Reference Range Interpretation Comments ANTI-NUCLEAR ANTIBODIES (test code = POSITIVE 3506) ARMEN (ANTI-NUCLEAR AB) WITH REFLEX [id number] 00:00:00 Test Item Value Reference Range Interpretation Comments ANTI-NUCLEAR ANTIBODIES (test code = POSITIVE 3506) HEMOGLOBIN A1c [ADDED]2017-05-01 00:00:00 Test Item Value Reference Range Interpretation Comments HEMOGLOBIN A1c (test code = 40892) 8.1 % HEMOGLOBIN A1c [ADDED]2017-05-01 00:00:00 Test Item Value Reference Range Interpretation Comments HEMOGLOBIN A1c (test code = 56139) 8.1 % HEMOGLOBIN A1c [ADDED]2017-05-01 00:00:00 Test Item Value Reference Range Interpretation Comments HEMOGLOBIN A1c (test code = 68427) 8.1 % CBC W/AUTO DIFF WITH PLATELETS [...] eGFR AMER. (test code 62 ML/MIN/1.73 = 16861) eGFR NON- AMER. (test 53 ML/MIN/1.73 code = 41952) CALC BUN/CREAT (test code = 31 RATIO [...] eGFR AMER. (test code 62 ML/MIN/1.73 = 99192) eGFR NON- AMER. (test 53 ML/MIN/1.73 code = 83033) CALC BUN/CREAT (test code = 31 RATIO [...] BILIRUBIN, TOTAL (test code = 0.5 MG/DL 2207) ALKALINE PHOSPHATASE (test 90 U/L code = [...] MICROALBUMIN, RANDOM (test code = 60.7 MG/DL 99924) CALC MICROALB/CREAT RND (test code 1096 MG/G = 12566) MICROALBUMIN/CREATININE, RANDOM AND RATIO [ADDED]2017-05-01 00:00:00 Test Item Value Reference Range Interpretation Comments CREATININE, URINE, CONC. (test 55.4 MG/DL code = 2072) MICROALBUMIN, RANDOM (test code = 60.7 MG/DL 91759) CALC MICROALB/CREAT RND (test code 1096 MG/G = 21596) HEMOGLOBIN A1c [ADDED]2017-05-01 00:00:00 Test Item Value Reference Range Interpretation Comments HEMOGLOBIN A1c (test code = 27779) 8.1 % HEMOGLOBIN A1c [ADDED]2017-05-01 00:00:00 Test Item Value Reference Range Interpretation Comments HEMOGLOBIN A1c (test code = 58197) 8.1 % HEMOGLOBIN A1c [ADDED]2017-05-01 00:00:00 Test Item Value Reference Range Interpretation Comments HEMOGLOBIN A1c (test code = 47396) 8.1 % HEMOGLOBIN A1c [ADDED]2017-05-01 00:00:00 Test Item Value Reference Range Interpretation Comments HEMOGLOBIN A1c (test code = 54421) 8.1 % CBC W/AUTO DIFF WITH PLATELETS [...] COUNT (test code = 1015) 207 K/UL HEMOGLOBIN A1c [ADDED]2017-05-01 00:00:00 Test Item Value Reference Range Interpretation Comments HEMOGLOBIN A1c (test code = 98749) 8.1 % CBC W/AUTO DIFF WITH PLATELETS [...] eGFR AMER. (test code 62 ML/MIN/1.73 = 91021) eGFR NON- AMER. (test 53 ML/MIN/1.73 code = 70208) CALC BUN/CREAT (test code = 31 RATIO [...] eGFR AMER. (test code 62 ML/MIN/1.73 = 29826) eGFR NON- AMER. (test 53 ML/MIN/1.73 code = 32943) CALC BUN/CREAT (test code = 31 RATIO 2235) SODIUM (test code = 2231) 142 MEQ/L POTASSIUM (test code = 2228) 4.9 MEQ/L CHLORIDE (test code = 2215) 102 MEQ/L CARBON DIOXIDE (test code = 25 MEQ/L 2205) CALCIUM (test code = 2209) 9.3 MG/DL PROTEIN, TOTAL (test code = 7.4 G/DL 2228) ALBUMIN (test code = 220) 4.1 G/DL CALC GLOBULIN (test code = [...] MICROALBUMIN, RANDOM (test code = 60.7 MG/DL 09257) CALC MICROALB/CREAT RND (test code 1096 MG/G = 45510) MICROALBUMIN/CREATININE, RANDOM AND RATIO [ADDED]2017-05-01 00:00:00 Test Item Value Reference Range Interpretation Comments CREATININE, URINE, CONC. (test 55.4 MG/DL code = 2072) MICROALBUMIN, RANDOM (test code = 60.7 MG/DL 93353) CALC MICROALB/CREAT RND (test code 1096 MG/G = 69027) COMPREHENSIVE METABOLIC PANEL [ADDED]2017-05-01 00:00:00 Test Item Value Reference Range Interpretation Comments GLUCOSE (test code = 2217) 287 MG/DL BUN (test code = 2208) 33 MG/DL CREATININE (test code = 2214) 1.07 MG/DL eGFR AMER. (test code 62 ML/MIN/1.73 = 25329) eGFR NON- AMER. (test 53 ML/MIN/1.73 code = 69569) CALC BUN/CREAT (test code = 31 RATIO [...] ALT (test code = 2219) 22 U/L HEMOGLOBIN A1c [ADDED]2017-05-01 00:00:00 Test Item Value Reference Range Interpretation Comments HEMOGLOBIN A1c (test code = 58827) 8.1 % HEMOGLOBIN A1c [ADDED]2017-05-01 00:00:00 Test Item Value Reference Range Interpretation Comments HEMOGLOBIN A1c (test code = 74622) 8.1 % HEMOGLOBIN A1c [ADDED]2017-05-01 00:00:00 Test Item Value Reference Range Interpretation Comments HEMOGLOBIN A1c (test code = 14489) 8.1 % CBC W/AUTO DIFF WITH PLATELETS [...] COUNT (test code = 1015) 207 K/UL LIPID PANEL [ADDED]2017-05-01 00:00:00 Test Item Value Reference Range Interpretation Comments CHOLESTEROL (test code = 2210) 163 MG/DL TRIGLYCERIDES (test code = 2232) 118 MG/DL HDL CHOLESTEROL (test code = 2220) 51 MG/DL CALC LDL CHOL (test code = 2237) 88 MG/DL RISK RATIO LDL/HDL (test code = 1.73 RATIO 2238) COMPREHENSIVE METABOLIC PANEL [ADDED]2017-05-01 00:00:00 Test Item Value Reference Range Interpretation Comments GLUCOSE (test code = 2217) 287 MG/DL BUN (test code = 2208) 33 MG/DL CREATININE (test code = 2214) 1.07 MG/DL eGFR AMER. (test code 62 ML/MIN/1.73 = 90094) eGFR NON- AMER. (test 53 ML/MIN/1.73 code = 15676) CALC BUN/CREAT (test code = 31 RATIO [...] eGFR AMER. (test code 62 ML/MIN/1.73 = 79402) eGFR NON- AMER. (test 53 ML/MIN/1.73 code = 15463) CALC BUN/CREAT (test code = 31 RATIO [...] ALT (test code = 2219) 22 U/L MICROALBUMIN/CREATININE, RANDOM AND RATIO [ADDED]2017-05-01 00:00:00 Test Item Value Reference Range Interpretation Comments CREATININE, URINE, CONC. (test 55.4 MG/DL code = 2072) MICROALBUMIN, RANDOM (test code = 60.7 MG/DL 92665) CALC MICROALB/CREAT RND (test code 1096 MG/G = 06332) LIPID PANEL [ADDED]2017-05-01 00:00:00 Test Item Value [...] MICROALBUMIN, RANDOM (test code = 60.7 MG/DL 81558) CALC MICROALB/CREAT RND (test code 1096 MG/G = 67506) MICROALBUMIN/CREATININE, RANDOM AND RATIO [ADDED]2017-05-01 00:00:00 Test Item Value Reference Range Interpretation Comments CREATININE, URINE, CONC. (test 55.4 MG/DL code = 2072) MICROALBUMIN, RANDOM (test code = 60.7 MG/DL 85892) CALC MICROALB/CREAT RND (test code 1096 MG/G = 95143) HEMOGLOBIN A1c [ADDED]2017-05-01 00:00:00 Test Item Value Reference Range Interpretation Comments HEMOGLOBIN A1c (test code = 80160) 8.1 % HEMOGLOBIN A1c [ADDED]2017-05-01 00:00:00 Test Item Value Reference Range Interpretation Comments HEMOGLOBIN A1c (test code = 15774) 8.1 % HEMOGLOBIN A1c [ADDED]2017-05-01 00:00:00 Test Item Value Reference Range Interpretation Comments HEMOGLOBIN A1c (test code = 15961) 8.1 % CBC W/AUTO DIFF WITH PLATELETS [...] eGFR AMER. (test code 62 ML/MIN/1.73 = 73913) eGFR NON- AMER. (test 53 ML/MIN/1.73 code = 00420) CALC BUN/CREAT (test code = 31 RATIO [...] eGFR AMER. (test code 62 ML/MIN/1.73 = 80948) eGFR NON- AMER. (test 53 ML/MIN/1.73 code = 59311) CALC BUN/CREAT (test code = 31 RATIO [...] MICROALBUMIN, RANDOM (test code = 60.7 MG/DL 80524) CALC MICROALB/CREAT RND (test code 1096 MG/G = 86524) MICROALBUMIN/CREATININE, RANDOM AND RATIO [ADDED]2017-05-01 00:00:00 Test Item Value Reference Range Interpretation Comments CREATININE, URINE, CONC. (test 55.4 MG/DL code = 2072) MICROALBUMIN, RANDOM (test code = 60.7 MG/DL 88072) CALC MICROALB/CREAT RND (test code 1096 MG/G = 61643) HEMOGLOBIN A1c [ADDED]2017-05-01 00:00:00 Test Item Value Reference Range Interpretation Comments HEMOGLOBIN A1c (test code = 24674) 8.1 % HEMOGLOBIN A1c [ADDED]2017-05-01 00:00:00 Test Item Value Reference Range Interpretation Comments HEMOGLOBIN A1c (test code = 78602) 8.1 % CBC W/AUTO DIFF WITH PLATELETS [...] eGFR AMER. (test code 62 ML/MIN/1.73 = 38134) eGFR NON- AMER. (test 53 ML/MIN/1.73 code = 15359) CALC BUN/CREAT (test code = 31 RATIO [...] MICROALBUMIN, RANDOM (test code = 60.7 MG/DL 96569) CALC MICROALB/CREAT RND (test code 1096 MG/G = 17612) HEMOGLOBIN A1c [ADDED]2017-05-01 00:00:00 Test Item Value Reference Range Interpretation Comments HEMOGLOBIN A1c (test code = 11191) 8.1 % HEMOGLOBIN A1c [ADDED]2017-05-01 00:00:00 Test Item Value Reference Range Interpretation Comments HEMOGLOBIN A1c (test code = 23056) 8.1 % HEMOGLOBIN A1c [ADDED]2017-05-01 00:00:00 Test Item Value Reference Range Interpretation Comments HEMOGLOBIN A1c (test code = 07681) 8.1 % CBC W/AUTO DIFF WITH PLATELETS [...] eGFR AMER. (test code 62 ML/MIN/1.73 = 91133) eGFR NON- AMER. (test 53 ML/MIN/1.73 code = 91705) CALC BUN/CREAT (test code = 31 RATIO [...] eGFR AMER. (test code 62 ML/MIN/1.73 = 87357) eGFR NON- AMER. (test 53 ML/MIN/1.73 code = 93263) CALC BUN/CREAT (test code = 31 RATIO [...] MICROALBUMIN, RANDOM (test code = 60.7 MG/DL 37143) CALC MICROALB/CREAT RND (test code 1096 MG/G = 24338) MICROALBUMIN/CREATININE, RANDOM AND RATIO [ADDED]2017-05-01 00:00:00 Test Item Value Reference Range Interpretation Comments CREATININE, URINE, CONC. (test 55.4 MG/DL code = 2072) MICROALBUMIN, RANDOM (test code = 60.7 MG/DL 08740) CALC MICROALB/CREAT RND (test code 1096 MG/G = 79068) HEMOGLOBIN A1c [ADDED]2017-05-01 00:00:00 Test Item Value Reference Range Interpretation Comments HEMOGLOBIN A1c (test code = 11716) 8.1 % HEMOGLOBIN A1c [ADDED]2017-05-01 00:00:00 Test Item Value Reference Range Interpretation Comments HEMOGLOBIN A1c (test code = 81434) 8.1 % HEMOGLOBIN A1c [ADDED]2017-05-01 00:00:00 Test Item Value Reference Range Interpretation Comments HEMOGLOBIN A1c (test code = 96155) 8.1 % CBC W/AUTO DIFF WITH PLATELETS [...] eGFR AMER. (test code 62 ML/MIN/1.73 = 12253) eGFR NON- AMER. (test 53 ML/MIN/1.73 code = 96995) CALC BUN/CREAT (test code = 31 RATIO [...] eGFR AMER. (test code 62 ML/MIN/1.73 = 43669) eGFR NON- AMER. (test 53 ML/MIN/1.73 code = 94421) CALC BUN/CREAT (test code = 31 RATIO [...] MICROALBUMIN, RANDOM (test code = 60.7 MG/DL 26443) CALC MICROALB/CREAT RND (test code 1096 MG/G = 05553) MICROALBUMIN/CREATININE, RANDOM AND RATIO [ADDED]2017-05-01 00:00:00 Test Item Value Reference Range Interpretation Comments CREATININE, URINE, CONC. (test 55.4 MG/DL code = 2072) MICROALBUMIN, RANDOM (test code = 60.7 MG/DL 18260) CALC MICROALB/CREAT RND (test code 1096 MG/G = 16856) VITAMIN D, 25 [id number] 00:00:00 Test Item Value Reference Range Interpretation Comments VITAMIN D, 25 OH (test code = 4958) 16 NG/ML VITAMIN D, 25 [id number] 00:00:00 Test Item Value Reference Range Interpretation Comments VITAMIN D, 25 OH (test code = 4958) 16 NG/ML [id number] 00:00:00 Test Item Value Reference Range Interpretation Comments TSH (test code = 2821) 4.260 UIU/ML [id number] 00:00:00 Test Item Value Reference Range Interpretation Comments TSH (test code = 2821) 4.260 UIU/ML [id number] 00:00:00 Test Item Value Reference Range Interpretation Comments TSH (test code = 2821) 4.260 UIU/ML LIPID [id number] 00:00:00 Test Item Value Reference Range Interpretation Comments CHOLESTEROL (test code = 2210) 152 MG/DL TRIGLYCERIDES (test code = 2232) 149 MG/DL HDL CHOLESTEROL (test code = 2220) 56 MG/DL CALC LDL CHOL (test code = 2237) 66 MG/DL RISK RATIO LDL/HDL (test code = 1.18 RATIO 2238) LIPID [id number] 00:00:00 Test Item Value Reference Range Interpretation Comments CHOLESTEROL (test code = 2210) 152 MG/DL TRIGLYCERIDES (test code = 2232) 149 MG/DL HDL CHOLESTEROL (test code = 2220) 56 MG/DL CALC LDL CHOL (test code = 2237) 66 MG/DL RISK RATIO LDL/HDL (test code = 1.18 RATIO 2238) COMPREHENSIVE METABOLIC [id number] 00:00:00 Test Item Value Reference Range Interpretation Comments GLUCOSE (test code = 2217) 173 MG/DL BUN (test code = 2208) 22 MG/DL CREATININE (test code = 2214) 1.01 MG/DL eGFR AMER. (test code 66 ML/MIN/1.73 = 03903) eGFR NON- AMER. (test 57 ML/MIN/1.73 code = 56681) CALC BUN/CREAT (test code = 22 RATIO [...] code = 2219) 13 U/L COMPREHENSIVE METABOLIC [id number] 00:00:00 Test Item Value Reference Range Interpretation Comments GLUCOSE (test code = 2217) 173 MG/DL BUN (test code = 2208) 22 MG/DL CREATININE (test code = 2214) 1.01 MG/DL eGFR AMER. (test code 66 ML/MIN/1.73 = 63733) eGFR NON- AMER. (test 57 ML/MIN/1.73 code = 60189) CALC BUN/CREAT (test code = 22 RATIO [...] code = 2219) 13 U/L CBC W/AUTO [id number] 00:00:00 Test Item Value Reference Range Interpretation [...] code = 1015) 266 K/UL CBC W/AUTO [id number] 00:00:00 Test Item Value Reference Range Interpretation [...] code = 1015) 266 K/UL CBC W/AUTO [id number] 00:00:00 Test Item Value Reference Range Interpretation [...] (test code = 1015) 266 K/UL HEMOGLOBIN [id number] 00:00:00 Test Item Value Reference Range Interpretation Comments HEMOGLOBIN A1c (test code = 37381) 9.4 % HEMOGLOBIN [id number] 00:00:00 Test Item Value Reference Range Interpretation Comments HEMOGLOBIN A1c (test code = 56892) 9.4 % HEMOGLOBIN [id number] 00:00:00 Test Item Value Reference Range Interpretation Comments HEMOGLOBIN A1c (test code = 42845) 9.4 % URIC [id number] 00:00:00 Test Item Value Reference Range Interpretation Comments URIC ACID (test code = 2233) 4.7 MG/DL URIC [id number] 00:00:00 Test Item Value Reference Range Interpretation Comments URIC ACID (test code = 2233) 4.7 MG/DL VITAMIN D, 25 [id number] 00:00:00 Test Item Value Reference Range Interpretation Comments VITAMIN D, 25 OH (test code = 4958) 16 NG/ML VITAMIN D, 25 [id number] 00:00:00 Test Item Value Reference Range Interpretation Comments VITAMIN D, 25 OH (test code = 4958) 16 NG/ML [id number] 00:00:00 Test Item Value Reference Range Interpretation Comments TSH (test code = 2821) 4.260 UIU/ML [id number] 00:00:00 Test Item Value Reference Range Interpretation Comments TSH (test code = 2821) 4.260 UIU/ML [id number] 00:00:00 Test Item Value Reference Range Interpretation Comments TSH (test code = 2821) 4.260 UIU/ML [id number] 00:00:00 Test Item Value Reference Range Interpretation Comments TSH (test code = 2821) 4.260 UIU/ML [id number] 00:00:00 Test Item Value Reference Range Interpretation Comments TSH (test code = 2821) 4.260 UIU/ML LIPID [id number] 00:00:00 Test Item Value Reference Range Interpretation Comments CHOLESTEROL (test code = 2210) 152 MG/DL TRIGLYCERIDES (test code = 2232) 149 MG/DL HDL CHOLESTEROL (test code = 2220) 56 MG/DL CALC LDL CHOL (test code = 2237) 66 MG/DL RISK RATIO LDL/HDL (test code = 1.18 RATIO 2238) LIPID [id number] 00:00:00 Test Item Value Reference Range Interpretation Comments CHOLESTEROL (test code = 2210) 152 MG/DL TRIGLYCERIDES (test code = 2232) 149 MG/DL HDL CHOLESTEROL (test code = 2220) 56 MG/DL CALC LDL CHOL (test code = 2237) 66 MG/DL RISK RATIO LDL/HDL (test code = 1.18 RATIO 2238) COMPREHENSIVE METABOLIC [id number] 00:00:00 Test Item Value Reference Range Interpretation Comments GLUCOSE (test code = 2217) 173 MG/DL BUN (test code = 2208) 22 MG/DL CREATININE (test code = 2214) 1.01 MG/DL eGFR AMER. (test code 66 ML/MIN/1.73 = 68095) eGFR NON- AMER. (test 57 ML/MIN/1.73 code = 77771) CALC BUN/CREAT (test code = 22 RATIO 2235) SODIUM (test code = 2231) 140 MEQ/L POTASSIUM (test code = 2228) 4.9 MEQ/L CHLORIDE (test code = 2215) 103 MEQ/L CARBON DIOXIDE (test code = 23 MEQ/L 6) CALCIUM (test code = 2209) 9.3 MG/DL [...] (test code = 2219) 13 U/L LIPID [id number] 00:00:00 Test Item Value Reference Range Interpretation Comments CHOLESTEROL (test code = 2210) 152 MG/DL TRIGLYCERIDES (test code = 2232) 149 MG/DL HDL CHOLESTEROL (test code = 2220) 56 MG/DL CALC LDL CHOL (test code = 2237) 66 MG/DL RISK RATIO LDL/HDL (test code = 1.18 RATIO 2238) COMPREHENSIVE METABOLIC [id number] 00:00:00 Test Item Value Reference Range Interpretation Comments GLUCOSE (test code = 2217) 173 MG/DL BUN (test code = 2208) 22 MG/DL CREATININE (test code = 2214) 1.01 MG/DL eGFR AMER. (test code 66 ML/MIN/1.73 = 84470) eGFR NON- AMER. (test 57 ML/MIN/1.73 code = 23700) CALC BUN/CREAT (test code = 22 RATIO [...] code = 2219) 13 U/L CBC W/AUTO [id number] 00:00:00 Test Item Value Reference Range Interpretation [...] code = 1015) 266 K/UL CBC W/AUTO [id number] 00:00:00 Test Item Value Reference Range Interpretation [...] code = 1015) 266 K/UL CBC W/AUTO [id number] 00:00:00 Test Item Value Reference Range Interpretation [...] (test code = 1015) 266 K/UL HEMOGLOBIN [id number] 00:00:00 Test Item Value Reference Range Interpretation Comments HEMOGLOBIN A1c (test code = 01258) 9.4 % HEMOGLOBIN [id number] 00:00:00 Test Item Value Reference Range Interpretation Comments HEMOGLOBIN A1c (test code = 24393) 9.4 % HEMOGLOBIN [id number] 00:00:00 Test Item Value Reference Range Interpretation Comments HEMOGLOBIN A1c (test code = 46798) 9.4 % URIC [id number] 00:00:00 Test Item Value Reference Range Interpretation Comments URIC ACID (test code = 2233) 4.7 MG/DL URIC [id number] 00:00:00 Test Item Value Reference Range Interpretation Comments URIC ACID (test code = 2233) 4.7 MG/DL VITAMIN D, 25 [id number] 00:00:00 Test Item Value Reference Range Interpretation Comments VITAMIN D, 25 OH (test code = 4958) 16 NG/ML VITAMIN D, 25 [id number] 00:00:00 Test Item Value Reference Range Interpretation Comments VITAMIN D, 25 OH (test code = 4958) 16 NG/ML COMPREHENSIVE METABOLIC [id number] 00:00:00 Test Item Value Reference Range Interpretation Comments GLUCOSE (test code = 2217) 173 MG/DL BUN (test code = 2208) 22 MG/DL CREATININE (test code = 2214) 1.01 MG/DL eGFR AMER. (test code 66 ML/MIN/1.73 = 67344) eGFR NON- AMER. (test 57 ML/MIN/1.73 code = 58108) CALC BUN/CREAT (test code = 22 RATIO [...] ALT (test code = 2219) 13 U/L [id number] 00:00:00 Test Item Value Reference Range Interpretation Comments TSH (test code = 2821) 4.260 UIU/ML [id number] 00:00:00 Test Item Value Reference Range Interpretation Comments TSH (test code = 2821) 4.260 UIU/ML [id number] 00:00:00 Test Item Value Reference Range Interpretation Comments TSH (test code = 2821) 4.260 UIU/ML CBC W/AUTO [id number] 00:00:00 Test Item Value Reference Range Interpretation [...] code = 1015) 266 K/UL CBC W/AUTO [id number] 00:00:00 Test Item Value Reference Range Interpretation [...] COUNT (test code = 1015) 266 K/UL LIPID [id number] 00:00:00 Test Item Value Reference Range Interpretation Comments CHOLESTEROL (test code = 2210) 152 MG/DL TRIGLYCERIDES (test code = 2232) 149 MG/DL HDL CHOLESTEROL (test code = 2220) 56 MG/DL CALC LDL CHOL (test code = 2237) 66 MG/DL RISK RATIO LDL/HDL (test code = 1.18 RATIO 2238) LIPID [id number] 00:00:00 Test Item Value Reference Range Interpretation Comments CHOLESTEROL (test code = 2210) 152 MG/DL TRIGLYCERIDES (test code = 2232) 149 MG/DL HDL CHOLESTEROL (test code = 2220) 56 MG/DL CALC LDL CHOL (test code = 2237) 66 MG/DL RISK RATIO LDL/HDL (test code = 1.18 RATIO 2238) COMPREHENSIVE METABOLIC [id number] 00:00:00 Test Item Value Reference Range Interpretation Comments GLUCOSE (test code = 2217) 173 MG/DL BUN (test code = 2208) 22 MG/DL CREATININE (test code = 2214) 1.01 MG/DL eGFR AMER. (test code 66 ML/MIN/1.73 = 87471) eGFR NON- AMER. (test 57 ML/MIN/1.73 code = 76075) CALC BUN/CREAT (test code = 22 RATIO [...] code = 2219) 13 U/L COMPREHENSIVE METABOLIC [id number] 00:00:00 Test Item Value Reference Range Interpretation Comments GLUCOSE (test code = 2217) 173 MG/DL BUN (test code = 2208) 22 MG/DL CREATININE (test code = 2214) 1.01 MG/DL eGFR AMER. (test code 66 ML/MIN/1.73 = 05527) eGFR NON- AMER. (test 57 ML/MIN/1.73 code = 12448) CALC BUN/CREAT (test code = 22 RATIO [...] = 0.4 MG/DL 7) ALKALINE PHOSPHATASE (test 89 U/L code = 2204) AST (test code = 2218) 16 U/L ALT (test code = 2219) 13 U/L CBC W/AUTO [id number] 00:00:00 Test Item Value Reference Range Interpretation [...] code = 1015) 266 K/UL CBC W/AUTO [id number] 00:00:00 Test Item Value Reference Range Interpretation [...] code = 1015) 266 K/UL CBC W/AUTO [id number] 00:00:00 Test Item Value Reference Range Interpretation [...] (test code = 1015) 266 K/UL HEMOGLOBIN [id number] 00:00:00 Test Item Value Reference Range Interpretation Comments HEMOGLOBIN A1c (test code = 06372) 9.4 % HEMOGLOBIN [id number] 00:00:00 Test Item Value Reference Range Interpretation Comments HEMOGLOBIN A1c (test code = 98547) 9.4 % HEMOGLOBIN [id number] 00:00:00 Test Item Value Reference Range Interpretation Comments HEMOGLOBIN A1c (test code = 02773) 9.4 % URIC [id number] 00:00:00 Test Item Value Reference Range Interpretation Comments URIC ACID (test code = 2233) 4.7 MG/DL URIC [id number] 00:00:00 Test Item Value Reference Range Interpretation Comments URIC ACID (test code = 2233) 4.7 MG/DL HEMOGLOBIN [id number] 00:00:00 Test Item Value Reference Range Interpretation Comments HEMOGLOBIN A1c (test code = 09870) 9.4 % VITAMIN D, 25 [id number] 00:00:00 Test Item Value Reference Range Interpretation Comments VITAMIN D, 25 OH (test code = 4958) 16 NG/ML VITAMIN D, 25 [id number] 00:00:00 Test Item Value Reference Range Interpretation Comments VITAMIN D, 25 OH (test code = 4958) 16 NG/ML HEMOGLOBIN [id number] 00:00:00 Test Item Value Reference Range Interpretation Comments HEMOGLOBIN A1c (test code = 39630) 9.4 % URIC [id number] 00:00:00 Test Item Value Reference Range Interpretation Comments URIC ACID (test code = 2233) 4.7 MG/DL VITAMIN D, 25 [id number] 00:00:00 Test Item Value Reference Range Interpretation Comments VITAMIN D, 25 OH (test code = 4958) 16 NG/ML [id number] 00:00:00 Test Item Value Reference Range Interpretation Comments TSH (test code = 2821) 4.260 UIU/ML [id number] 00:00:00 Test Item Value Reference Range Interpretation Comments TSH (test code = 2821) 4.260 UIU/ML [id number] 00:00:00 Test Item Value Reference Range Interpretation Comments TSH (test code = 2821) 4.260 UIU/ML LIPID [id number] 00:00:00 Test Item Value Reference Range Interpretation Comments CHOLESTEROL (test code = 2210) 152 MG/DL TRIGLYCERIDES (test code = 2232) 149 MG/DL HDL CHOLESTEROL (test code = 2220) 56 MG/DL CALC LDL CHOL (test code = 2237) 66 MG/DL RISK RATIO LDL/HDL (test code = 1.18 RATIO 2238) LIPID [id number] 00:00:00 Test Item Value Reference Range Interpretation Comments CHOLESTEROL (test code = 2210) 152 MG/DL TRIGLYCERIDES (test code = 2232) 149 MG/DL HDL CHOLESTEROL (test code = 2220) 56 MG/DL CALC LDL CHOL (test code = 2237) 66 MG/DL RISK RATIO LDL/HDL (test code = 1.18 RATIO 2238) COMPREHENSIVE METABOLIC [id number] 00:00:00 Test Item Value Reference Range Interpretation Comments GLUCOSE (test code = 2217) 173 MG/DL BUN (test code = 2208) 22 MG/DL CREATININE (test code = 2214) 1.01 MG/DL eGFR AMER. (test code 66 ML/MIN/1.73 = 93136) eGFR NON- AMER. (test 57 ML/MIN/1.73 code = 57174) CALC BUN/CREAT (test code = 22 RATIO [...] code = 2219) 13 U/L COMPREHENSIVE METABOLIC [id number] 00:00:00 Test Item Value Reference Range Interpretation Comments GLUCOSE (test code = 2217) 173 MG/DL BUN (test code = 2208) 22 MG/DL CREATININE (test code = 2214) 1.01 MG/DL eGFR AMER. (test code 66 ML/MIN/1.73 = 10625) eGFR NON- AMER. (test 57 ML/MIN/1.73 code = 34048) CALC BUN/CREAT (test code = 22 RATIO [...] code = 2219) 13 U/L CBC W/AUTO [id number] 00:00:00 Test Item Value Reference Range Interpretation [...] code = 1015) 266 K/UL CBC W/AUTO [id number] 00:00:00 Test Item Value Reference Range Interpretation [...] code = 1015) 266 K/UL CBC W/AUTO [id number] 00:00:00 Test Item Value Reference Range Interpretation [...] (test code = 1015) 266 K/UL HEMOGLOBIN [id number] 00:00:00 Test Item Value Reference Range Interpretation Comments HEMOGLOBIN A1c (test code = 41541) 9.4 % HEMOGLOBIN [id number] 00:00:00 Test Item Value Reference Range Interpretation Comments HEMOGLOBIN A1c (test code = 84382) 9.4 % HEMOGLOBIN [id number] 00:00:00 Test Item Value Reference Range Interpretation Comments HEMOGLOBIN A1c (test code = 04482) 9.4 % URIC [id number] 00:00:00 Test Item Value Reference Range Interpretation Comments URIC ACID (test code = 2233) 4.7 MG/DL URIC [id number] 00:00:00 Test Item Value Reference Range Interpretation Comments URIC ACID (test code = 2233) 4.7 MG/DL VITAMIN D, 25 [id number] 00:00:00 Test Item Value Reference Range Interpretation Comments VITAMIN D, 25 OH (test code = 4958) 16 NG/ML VITAMIN D, 25 [id number] 00:00:00 Test Item Value Reference Range Interpretation Comments VITAMIN D, 25 OH (test code = 4958) 16 NG/ML [id number] 00:00:00 Test Item Value Reference Range Interpretation Comments TSH (test code = 2821) 4.260 UIU/ML [id number] 00:00:00 Test Item Value Reference Range Interpretation Comments TSH (test code = 2821) 4.260 UIU/ML LIPID [id number] 00:00:00 Test Item Value Reference Range Interpretation Comments CHOLESTEROL (test code = 2210) 152 MG/DL TRIGLYCERIDES (test code = 2232) 149 MG/DL HDL CHOLESTEROL (test code = 2220) 56 MG/DL CALC LDL CHOL (test code = 2237) 66 MG/DL RISK RATIO LDL/HDL (test code = 1.18 RATIO 2238) COMPREHENSIVE METABOLIC [id number] 00:00:00 Test Item Value Reference Range Interpretation Comments GLUCOSE (test code = 2217) 173 MG/DL BUN (test code = 2208) 22 MG/DL CREATININE (test code = 2214) 1.01 MG/DL eGFR AMER. (test code 66 ML/MIN/1.73 = 77197) eGFR NON- AMER. (test 57 ML/MIN/1.73 code = 78525) CALC BUN/CREAT (test code = 22 RATIO [...] code = 2219) 13 U/L CBC W/AUTO [id number] 00:00:00 Test Item Value Reference Range Interpretation [...] code = 1015) 266 K/UL CBC W/AUTO [id number] 00:00:00 Test Item Value Reference Range Interpretation [...] (test code = 1015) 266 K/UL HEMOGLOBIN [id number] 00:00:00 Test Item Value Reference Range Interpretation Comments HEMOGLOBIN A1c (test code = 75310) 9.4 % HEMOGLOBIN [id number] 00:00:00 Test Item Value Reference Range Interpretation Comments HEMOGLOBIN A1c (test code = 58333) 9.4 % URIC [id number] 00:00:00 Test Item Value Reference Range Interpretation Comments URIC ACID (test code = 2233) 4.7 MG/DL VITAMIN D, 25 [id number] 00:00:00 Test Item Value Reference Range Interpretation Comments VITAMIN D, 25 OH (test code = 4958) 16 NG/ML [id number] 00:00:00 Test Item Value Reference Range Interpretation Comments TSH (test code = 2821) 4.260 UIU/ML [id number] 00:00:00 Test Item Value Reference Range Interpretation Comments TSH (test code = 2821) 4.260 UIU/ML [id number] 00:00:00 Test Item Value Reference Range Interpretation Comments TSH (test code = 2821) 4.260 UIU/ML LIPID [id number] 00:00:00 Test Item Value Reference Range Interpretation Comments CHOLESTEROL (test code = 2210) 152 MG/DL TRIGLYCERIDES (test code = 2232) 149 MG/DL HDL CHOLESTEROL (test code = 2220) 56 MG/DL CALC LDL CHOL (test code = 2237) 66 MG/DL RISK RATIO LDL/HDL (test code = 1.18 RATIO 2238) LIPID [id number] 00:00:00 Test Item Value Reference Range Interpretation Comments CHOLESTEROL (test code = 2210) 152 MG/DL TRIGLYCERIDES (test code = 2232) 149 MG/DL HDL CHOLESTEROL (test code = 2220) 56 MG/DL CALC LDL CHOL (test code = 2237) 66 MG/DL RISK RATIO LDL/HDL (test code = 1.18 RATIO 2238) COMPREHENSIVE METABOLIC [id number] 00:00:00 Test Item Value Reference Range Interpretation Comments GLUCOSE (test code = 2217) 173 MG/DL BUN (test code = 2208) 22 MG/DL CREATININE (test code = 2214) 1.01 MG/DL eGFR AMER. (test code 66 ML/MIN/1.73 = 92860) eGFR NON- AMER. (test 57 ML/MIN/1.73 code = 83972) CALC BUN/CREAT (test code = 22 RATIO [...] code = 2219) 13 U/L COMPREHENSIVE METABOLIC [id number] 00:00:00 Test Item Value Reference Range Interpretation Comments GLUCOSE (test code = 2217) 173 MG/DL BUN (test code = 2208) 22 MG/DL CREATININE (test code = 2214) 1.01 MG/DL eGFR AMER. (test code 66 ML/MIN/1.73 = 42797) eGFR NON- AMER. (test 57 ML/MIN/1.73 code = 54716) CALC BUN/CREAT (test code = 22 RATIO [...] code = 2219) 13 U/L CBC W/AUTO [id number] 00:00:00 Test Item Value Reference Range Interpretation [...] code = 1015) 266 K/UL CBC W/AUTO [id number] 00:00:00 Test Item Value Reference Range Interpretation [...] code = 1015) 266 K/UL CBC W/AUTO [id number] 00:00:00 Test Item Value Reference Range Interpretation [...] (test code = 1015) 266 K/UL HEMOGLOBIN [id number] 00:00:00 Test Item Value Reference Range Interpretation Comments HEMOGLOBIN A1c (test code = 64771) 9.4 % HEMOGLOBIN [id number] 00:00:00 Test Item Value Reference Range Interpretation Comments HEMOGLOBIN A1c (test code = 35058) 9.4 % HEMOGLOBIN [id number] 00:00:00 Test Item Value Reference Range Interpretation Comments HEMOGLOBIN A1c (test code = 51790) 9.4 % URIC [id number] 00:00:00 Test Item Value Reference Range Interpretation Comments URIC ACID (test code = 2233) 4.7 MG/DL URIC [id number] 00:00:00 Test Item Value Reference Range Interpretation Comments URIC ACID (test code = 2233) 4.7 MG/DL VITAMIN D, 25 [id number] 00:00:00 Test Item Value Reference Range Interpretation Comments VITAMIN D, 25 OH (test code = 4958) 16 NG/ML VITAMIN D, 25 [id number] 00:00:00 Test Item Value Reference Range Interpretation Comments VITAMIN D, 25 OH (test code = 4958) 16 NG/ML [id number] 00:00:00 Test Item Value Reference Range Interpretation Comments TSH (test code = 2821) 4.260 UIU/ML [id number] 00:00:00 Test Item Value Reference Range Interpretation Comments TSH (test code = 2821) 4.260 UIU/ML [id number] 00:00:00 Test Item Value Reference Range Interpretation Comments TSH (test code = 2821) 4.260 UIU/ML LIPID [id number] 00:00:00 Test Item Value Reference Range Interpretation Comments CHOLESTEROL (test code = 2210) 152 MG/DL TRIGLYCERIDES (test code = 2232) 149 MG/DL HDL CHOLESTEROL (test code = 2220) 56 MG/DL CALC LDL CHOL (test code = 2237) 66 MG/DL RISK RATIO LDL/HDL (test code = 1.18 RATIO 2238) LIPID [id number] 00:00:00 Test Item Value Reference Range Interpretation Comments CHOLESTEROL (test code = 2210) 152 MG/DL TRIGLYCERIDES (test code = 2232) 149 MG/DL HDL CHOLESTEROL (test code = 2220) 56 MG/DL CALC LDL CHOL (test code = 2237) 66 MG/DL RISK RATIO LDL/HDL (test code = 1.18 RATIO 2238) COMPREHENSIVE METABOLIC [id number] 00:00:00 Test Item Value Reference Range Interpretation Comments GLUCOSE (test code = 2217) 173 MG/DL BUN (test code = 2208) 22 MG/DL CREATININE (test code = 2214) 1.01 MG/DL eGFR AMER. (test code 66 ML/MIN/1.73 = 80739) eGFR NON- AMER. (test 57 ML/MIN/1.73 code = 97131) CALC BUN/CREAT (test code = 22 RATIO [...] code = 2219) 13 U/L COMPREHENSIVE METABOLIC [id number] 00:00:00 Test Item Value Reference Range Interpretation Comments GLUCOSE (test code = 2217) 173 MG/DL BUN (test code = 2208) 22 MG/DL CREATININE (test code = 2214) 1.01 MG/DL eGFR AMER. (test code 66 ML/MIN/1.73 = 55129) eGFR NON- AMER. (test 57 ML/MIN/1.73 code = 62432) CALC BUN/CREAT (test code = 22 RATIO [...] code = 2219) 13 U/L CBC W/AUTO [id number] 00:00:00 Test Item Value Reference Range Interpretation [...] code = 1015) 266 K/UL CBC W/AUTO [id number] 00:00:00 Test Item Value Reference Range Interpretation [...] code = 1015) 266 K/UL CBC W/AUTO [id number] 00:00:00 Test Item Value Reference Range Interpretation [...] (test code = 1015) 266 K/UL HEMOGLOBIN [id number] 00:00:00 Test Item Value Reference Range Interpretation Comments HEMOGLOBIN A1c (test code = 26041) 9.4 % HEMOGLOBIN [id number] 00:00:00 Test Item Value Reference Range Interpretation Comments HEMOGLOBIN A1c (test code = 27966) 9.4 % HEMOGLOBIN [id number] 00:00:00 Test Item Value Reference Range Interpretation Comments HEMOGLOBIN A1c (test code = 22823) 9.4 % URIC [id number] 00:00:00 Test Item Value Reference Range Interpretation Comments URIC ACID (test code = 2233) 4.7 MG/DL URIC [id number] 00:00:00 Test Item Value Reference Range Interpretation Comments URIC ACID (test code = 2233) 4.7 MG/DL COMPREHENSIVE METABOLIC [id number] 00:00:00 Test Item Value Reference Range Interpretation Comments GLUCOSE (test code = 2217) 74 MG/DL BUN (test code = 2208) 34 MG/DL CREATININE (test code = 2214) 1.11 MG/DL eGFR AMER. (test code 60 ML/MIN/1.73 = 91635) eGFR NON- AMER. (test 51 ML/MIN/1.73 code = 80179) CALC BUN/CREAT (test code = 31 RATIO 2235) SODIUM (test code = 2231) 142 MEQ/L POTASSIUM (test code = 2228) 4.6 MEQ/L CHLORIDE (test code = 2215) 105 MEQ/L CARBON DIOXIDE (test code = 21 MEQ/L 220) CALCIUM (test code = 2209) 9.3 MG/DL PROTEIN, TOTAL (test code = 7.6 G/DL 2229) ALBUMIN (test code = 2201) 4.1 G/DL CALC GLOBULIN (test code = 3.5 G/DL 2240) CALC A/G RATIO (test code = 1.2 RATIO 2234) BILIRUBIN, TOTAL (test code = 0.3 MG/DL 2206) ALKALINE PHOSPHATASE (test 98 U/L code = 2204) AST (test code = 2218) 18 U/L ALT (test code = 2219) 13 U/L COMPREHENSIVE METABOLIC [id number] 00:00:00 Test Item Value Reference Range Interpretation Comments GLUCOSE (test code = 2217) 74 MG/DL BUN (test code = 2208) 34 MG/DL CREATININE (test code = 2214) 1.11 MG/DL eGFR AMER. (test code 60 ML/MIN/1.73 = 68580) eGFR NON- AMER. (test 51 ML/MIN/1.73 code = 93640) CALC BUN/CREAT (test code = 31 RATIO [...] (test code = 2219) 13 U/L LIPID [id number] 00:00:00 Test Item Value Reference Range Interpretation Comments CHOLESTEROL (test code = 2210) 220 MG/DL TRIGLYCERIDES (test code = 2232) 136 MG/DL HDL CHOLESTEROL (test code = 2220) 57 MG/DL CALC LDL CHOL (test code = 2237) 136 MG/DL RISK RATIO LDL/HDL (test code = 2.38 RATIO 2238) LIPID [id number] 00:00:00 Test Item Value Reference Range Interpretation Comments CHOLESTEROL (test code = 2210) 220 MG/DL TRIGLYCERIDES (test code = 2232) 136 MG/DL HDL CHOLESTEROL (test code = 2220) 57 MG/DL CALC LDL CHOL (test code = 2237) 136 MG/DL RISK RATIO LDL/HDL (test code = 2.38 RATIO 2238) CBC W/AUTO [id number] 00:00:00 Test Item Value Reference Range Interpretation [...] code = 1015) 294 K/UL CBC W/AUTO [id number] 00:00:00 Test Item Value Reference Range Interpretation [...] code = 1015) 294 K/UL CBC W/AUTO [id number] 00:00:00 Test Item Value Reference Range Interpretation [...] (test code = 1015) 294 K/UL HEMOGLOBIN [id number] 00:00:00 Test Item Value Reference Range Interpretation Comments HEMOGLOBIN A1c (test code = 55516) 6.5 % HEMOGLOBIN [id number] 00:00:00 Test Item Value Reference Range Interpretation Comments HEMOGLOBIN A1c (test code = 05625) 6.5 % HEMOGLOBIN [id number] 00:00:00 Test Item Value Reference Range Interpretation Comments HEMOGLOBIN A1c (test code = 77745) 6.5 % THYROID II PROFILE (T3U, T4, [...] code = 2821) 3.1 UIU/ML COMPREHENSIVE METABOLIC [id number] 00:00:00 Test Item Value Reference Range Interpretation Comments GLUCOSE (test code = 2217) 74 MG/DL BUN (test code = 2208) 34 MG/DL CREATININE (test code = 2214) 1.11 MG/DL eGFR AMER. (test code 60 ML/MIN/1.73 = 28241) eGFR NON- AMER. (test 51 ML/MIN/1.73 code = 76895) CALC BUN/CREAT (test code = 31 RATIO [...] code = 2219) 13 U/L COMPREHENSIVE METABOLIC [id number] 00:00:00 Test Item Value Reference Range Interpretation Comments GLUCOSE (test code = 2217) 74 MG/DL BUN (test code = 2208) 34 MG/DL CREATININE (test code = 2214) 1.11 MG/DL eGFR AMER. (test code 60 ML/MIN/1.73 = 54913) eGFR NON- AMER. (test 51 ML/MIN/1.73 code = 43020) CALC BUN/CREAT (test code = 31 RATIO [...] code = 2219) 13 U/L COMPREHENSIVE METABOLIC [id number] 00:00:00 Test Item Value Reference Range Interpretation Comments GLUCOSE (test code = 2217) 74 MG/DL BUN (test code = 2208) 34 MG/DL CREATININE (test code = 2214) 1.11 MG/DL eGFR AMER. (test code 60 ML/MIN/1.73 = 66386) eGFR NON- AMER. (test 51 ML/MIN/1.73 code = 02771) CALC BUN/CREAT (test code = 31 RATIO [...] (test code = 2219) 13 U/L LIPID [id number] 00:00:00 Test Item Value Reference Range Interpretation Comments CHOLESTEROL (test code = 2210) 220 MG/DL TRIGLYCERIDES (test code = 2232) 136 MG/DL HDL CHOLESTEROL (test code = 2220) 57 MG/DL CALC LDL CHOL (test code = 2237) 136 MG/DL RISK RATIO LDL/HDL (test code = 2.38 RATIO 2238) LIPID [id number] 00:00:00 Test Item Value Reference Range Interpretation Comments CHOLESTEROL (test code = 2210) 220 MG/DL TRIGLYCERIDES (test code = 2232) 136 MG/DL HDL CHOLESTEROL (test code = 2220) 57 MG/DL CALC LDL CHOL (test code = 2237) 136 MG/DL RISK RATIO LDL/HDL (test code = 2.38 RATIO 2238) CBC W/AUTO [id number] 00:00:00 Test Item Value Reference Range Interpretation [...] code = 1015) 294 K/UL CBC W/AUTO [id number] 00:00:00 Test Item Value Reference Range Interpretation [...] code = 1015) 294 K/UL CBC W/AUTO [id number] 00:00:00 Test Item Value Reference Range Interpretation [...] (test code = 1015) 294 K/UL HEMOGLOBIN [id number] 00:00:00 Test Item Value Reference Range Interpretation Comments HEMOGLOBIN A1c (test code = 03303) 6.5 % HEMOGLOBIN [id number] 00:00:00 Test Item Value Reference Range Interpretation Comments HEMOGLOBIN A1c (test code = 50455) 6.5 % HEMOGLOBIN [id number] 00:00:00 Test Item Value Reference Range Interpretation Comments HEMOGLOBIN A1c (test code = 70934) 6.5 % THYROID II PROFILE (T3U, T4, [...] TSH (test code = 2821) 3.1 UIU/ML LIPID [id number] 00:00:00 Test Item Value Reference Range Interpretation Comments CHOLESTEROL (test code = 2210) 220 MG/DL TRIGLYCERIDES (test code = 2232) 136 MG/DL HDL CHOLESTEROL (test code = 2220) 57 MG/DL CALC LDL CHOL (test code = 2237) 136 MG/DL RISK RATIO LDL/HDL (test code = 2.38 RATIO 2238) CBC W/AUTO [id number] 00:00:00 Test Item Value Reference Range Interpretation [...] code = 1015) 294 K/UL CBC W/AUTO [id number] 00:00:00 Test Item Value Reference Range Interpretation [...] (test code = 1015) 294 K/UL HEMOGLOBIN [id number] 00:00:00 Test Item Value Reference Range Interpretation Comments HEMOGLOBIN A1c (test code = 60041) 6.5 % COMPREHENSIVE METABOLIC [id number] 00:00:00 Test Item Value Reference Range Interpretation Comments GLUCOSE (test code = 2217) 74 MG/DL BUN (test code = 2208) 34 MG/DL CREATININE (test code = 2214) 1.11 MG/DL eGFR AMER. (test code 60 ML/MIN/1.73 = 88636) eGFR NON- AMER. (test 51 ML/MIN/1.73 code = 96952) CALC BUN/CREAT (test code = 31 RATIO [...] (test code = 2219) 13 U/L HEMOGLOBIN [id number] 00:00:00 Test Item Value Reference Range Interpretation Comments HEMOGLOBIN A1c (test code = 04149) 6.5 % COMPREHENSIVE METABOLIC [id number] 00:00:00 Test Item Value Reference Range Interpretation Comments GLUCOSE (test code = 2217) 74 MG/DL BUN (test code = 2208) 34 MG/DL CREATININE (test code = 2214) 1.11 MG/DL eGFR AMER. (test code 60 ML/MIN/1.73 = 02155) eGFR NON- AMER. (test 51 ML/MIN/1.73 code = 84241) CALC BUN/CREAT (test code = 31 RATIO [...] (test code = 2219) 13 U/L LIPID [id number] 00:00:00 Test Item Value Reference Range Interpretation Comments CHOLESTEROL (test code = 2210) 220 MG/DL TRIGLYCERIDES (test code = 2232) 136 MG/DL HDL CHOLESTEROL (test code = 2220) 57 MG/DL CALC LDL CHOL (test code = 2237) 136 MG/DL RISK RATIO LDL/HDL (test code = 2.38 RATIO 2238) LIPID [id number] 00:00:00 Test Item Value Reference Range Interpretation Comments CHOLESTEROL (test code = 2210) 220 MG/DL TRIGLYCERIDES (test code = 2232) 136 MG/DL HDL CHOLESTEROL (test code = 2220) 57 MG/DL CALC LDL CHOL (test code = 2237) 136 MG/DL RISK RATIO LDL/HDL (test code = 2.38 RATIO 2238) CBC W/AUTO [id number] 00:00:00 Test Item Value Reference Range Interpretation [...] code = 1015) 294 K/UL CBC W/AUTO [id number] 00:00:00 Test Item Value Reference Range Interpretation [...] code = 1015) 294 K/UL CBC W/AUTO [id number] 00:00:00 Test Item Value Reference Range Interpretation [...] COUNT (test code = 1015) 294 K/UL THYROID II PROFILE (T3U, T4, T7, TSH)[id number] 00:00:00 Test Item Value Reference Range Interpretation Comments T3 UPTAKE (test code = 2817) 30.8 % T4 (THYROXINE) (test code = 2819) 5.3 UG/DL CALCULATED T7 (FTI) (test code = 1.63 2820) TSH (test code = 2821) 3.1 UIU/ML HEMOGLOBIN [id number] 00:00:00 Test Item Value Reference Range Interpretation Comments HEMOGLOBIN A1c (test code = 29077) 6.5 % HEMOGLOBIN [id number] 00:00:00 Test Item Value Reference Range Interpretation Comments HEMOGLOBIN A1c (test code = 62859) 6.5 % HEMOGLOBIN [id number] 00:00:00 Test Item Value Reference Range Interpretation Comments HEMOGLOBIN A1c (test code = 63092) 6.5 % THYROID II PROFILE (T3U, T4, [...] code = 2821) 3.1 UIU/ML COMPREHENSIVE METABOLIC [id number] 00:00:00 Test Item Value Reference Range Interpretation Comments GLUCOSE (test code = 2217) 74 MG/DL BUN (test code = 2208) 34 MG/DL CREATININE (test code = 2214) 1.11 MG/DL eGFR AMER. (test code 60 ML/MIN/1.73 = 21336) eGFR NON- AMER. (test 51 ML/MIN/1.73 code = 40379) CALC BUN/CREAT (test code = 31 RATIO [...] code = 2219) 13 U/L COMPREHENSIVE METABOLIC [id number] 00:00:00 Test Item Value Reference Range Interpretation Comments GLUCOSE (test code = 2217) 74 MG/DL BUN (test code = 2208) 34 MG/DL CREATININE (test code = 2214) 1.11 MG/DL eGFR AMER. (test code 60 ML/MIN/1.73 = 24600) eGFR NON- AMER. (test 51 ML/MIN/1.73 code = 20151) CALC BUN/CREAT (test code = 31 RATIO [...] (test code = 2219) 13 U/L LIPID [id number] 00:00:00 Test Item Value Reference Range Interpretation Comments CHOLESTEROL (test code = 2210) 220 MG/DL TRIGLYCERIDES (test code = 2232) 136 MG/DL HDL CHOLESTEROL (test code = 2220) 57 MG/DL CALC LDL CHOL (test code = 2237) 136 MG/DL RISK RATIO LDL/HDL (test code = 2.38 RATIO 2238) LIPID [id number] 00:00:00 Test Item Value Reference Range Interpretation Comments CHOLESTEROL (test code = 2210) 220 MG/DL TRIGLYCERIDES (test code = 2232) 136 MG/DL HDL CHOLESTEROL (test code = 2220) 57 MG/DL CALC LDL CHOL (test code = 2237) 136 MG/DL RISK RATIO LDL/HDL (test code = 2.38 RATIO 2238) CBC W/AUTO [id number] 00:00:00 Test Item Value Reference Range Interpretation [...] code = 1015) 294 K/UL CBC W/AUTO [id number] 00:00:00 Test Item Value Reference Range Interpretation [...] code = 1015) 294 K/UL CBC W/AUTO [id number] 00:00:00 Test Item Value Reference Range Interpretation [...] (test code = 1015) 294 K/UL HEMOGLOBIN [id number] 00:00:00 Test Item Value Reference Range Interpretation Comments HEMOGLOBIN A1c (test code = 54513) 6.5 % HEMOGLOBIN [id number] 00:00:00 Test Item Value Reference Range Interpretation Comments HEMOGLOBIN A1c (test code = 42836) 6.5 % HEMOGLOBIN [id number] 00:00:00 Test Item Value Reference Range Interpretation Comments HEMOGLOBIN A1c (test code = 00111) 6.5 % THYROID II PROFILE (T3U, T4, [...] code = 2821) 3.1 UIU/ML COMPREHENSIVE METABOLIC [id number] 00:00:00 Test Item Value Reference Range Interpretation Comments GLUCOSE (test code = 2217) 74 MG/DL BUN (test code = 2208) 34 MG/DL CREATININE (test code = 2214) 1.11 MG/DL eGFR AMER. (test code 60 ML/MIN/1.73 = 88798) eGFR NON- AMER. (test 51 ML/MIN/1.73 code = 02248) CALC BUN/CREAT (test code = 31 RATIO [...] (test code = 2219) 13 U/L LIPID [id number] 00:00:00 Test Item Value Reference Range Interpretation Comments CHOLESTEROL (test code = 2210) 220 MG/DL TRIGLYCERIDES (test code = 2232) 136 MG/DL HDL CHOLESTEROL (test code = 2220) 57 MG/DL CALC LDL CHOL (test code = 2237) 136 MG/DL RISK RATIO LDL/HDL (test code = 2.38 RATIO 2238) CBC W/AUTO [id number] 00:00:00 Test Item Value Reference Range Interpretation [...] code = 1015) 294 K/UL CBC W/AUTO [id number] 00:00:00 Test Item Value Reference Range Interpretation [...] (test code = 1015) 294 K/UL HEMOGLOBIN [id number] 00:00:00 Test Item Value Reference Range Interpretation Comments HEMOGLOBIN A1c (test code = 73232) 6.5 % HEMOGLOBIN [id number] 00:00:00 Test Item Value Reference Range Interpretation Comments HEMOGLOBIN A1c (test code = 74956) 6.5 % THYROID II PROFILE (T3U, T4, T7, TSH)[id number] 00:00:00 Test Item Value Reference Range Interpretation Comments T3 UPTAKE (test code = 2817) 30.8 % T4 (THYROXINE) (test code = 2819) 5.3 UG/DL CALCULATED T7 (FTI) (test code = 1.63 2820) TSH (test code = 2821) 3.1 UIU/ML COMPREHENSIVE METABOLIC [id number] 00:00:00 Test Item Value Reference Range Interpretation Comments GLUCOSE (test code = 2217) 74 MG/DL BUN (test code = 2208) 34 MG/DL CREATININE (test code = 2214) 1.11 MG/DL eGFR AMER. (test code 60 ML/MIN/1.73 = 62739) eGFR NON- AMER. (test 51 ML/MIN/1.73 code = 73365) CALC BUN/CREAT (test code = 31 RATIO 2235) SODIUM (test code = 2231) 142 MEQ/L POTASSIUM (test code = 2228) 4.6 MEQ/L CHLORIDE (test code = 2215) 105 MEQ/L CARBON DIOXIDE (test code = 21 MEQ/L 2205) CALCIUM (test code = 2209) 9.3 MG/DL PROTEIN, TOTAL (test code = 7.6 G/DL 2229) ALBUMIN (test code = 2201) 4.1 G/DL CALC GLOBULIN (test code = 3.5 G/DL 2240) CALC A/G RATIO (test code = 1.2 RATIO 2234) BILIRUBIN, TOTAL (test code = 0.3 MG/DL 220) ALKALINE PHOSPHATASE (test 98 U/L code = 2204) AST (test code = 2218) 18 U/L ALT (test code = 2219) 13 U/L COMPREHENSIVE METABOLIC [id number] 00:00:00 Test Item Value Reference Range Interpretation Comments GLUCOSE (test code = 2217) 74 MG/DL BUN (test code = 2208) 34 MG/DL CREATININE (test code = 2214) 1.11 MG/DL eGFR AMER. (test code 60 ML/MIN/1.73 = 57705) eGFR NON- AMER. (test 51 ML/MIN/1.73 code = 64503) CALC BUN/CREAT (test code = 31 RATIO [...] (test code = 2219) 13 U/L LIPID [id number] 00:00:00 Test Item Value Reference Range Interpretation Comments CHOLESTEROL (test code = 2210) 220 MG/DL TRIGLYCERIDES (test code = 2232) 136 MG/DL HDL CHOLESTEROL (test code = 2220) 57 MG/DL CALC LDL CHOL (test code = 2237) 136 MG/DL RISK RATIO LDL/HDL (test code = 2.38 RATIO 2238) LIPID [id number] 00:00:00 Test Item Value Reference Range Interpretation Comments CHOLESTEROL (test code = 2210) 220 MG/DL TRIGLYCERIDES (test code = 2232) 136 MG/DL HDL CHOLESTEROL (test code = 2220) 57 MG/DL CALC LDL CHOL (test code = 2237) 136 MG/DL RISK RATIO LDL/HDL (test code = 2.38 RATIO 2238) CBC W/AUTO [id number] 00:00:00 Test Item Value Reference Range Interpretation [...] code = 1015) 294 K/UL CBC W/AUTO [id number] 00:00:00 Test Item Value Reference Range Interpretation [...] code = 1015) 294 K/UL CBC W/AUTO [id number] 00:00:00 Test Item Value Reference Range Interpretation [...] (test code = 1015) 294 K/UL HEMOGLOBIN [id number] 00:00:00 Test Item Value Reference Range Interpretation Comments HEMOGLOBIN A1c (test code = 08031) 6.5 % HEMOGLOBIN [id number] 00:00:00 Test Item Value Reference Range Interpretation Comments HEMOGLOBIN A1c (test code = 05765) 6.5 % HEMOGLOBIN [id number] 00:00:00 Test Item Value Reference Range Interpretation Comments HEMOGLOBIN A1c (test code = 04605) 6.5 % THYROID II PROFILE (T3U, T4, [...] code = 2821) 3.1 UIU/ML COMPREHENSIVE METABOLIC [id number] 00:00:00 Test Item Value Reference Range Interpretation Comments GLUCOSE (test code = 2217) 74 MG/DL BUN (test code = 2208) 34 MG/DL CREATININE (test code = 2214) 1.11 MG/DL eGFR AMER. (test code 60 ML/MIN/1.73 = 48188) eGFR NON- AMER. (test 51 ML/MIN/1.73 code = 87217) CALC BUN/CREAT (test code = 31 RATIO [...] code = 2219) 13 U/L COMPREHENSIVE METABOLIC [id number] 00:00:00 Test Item Value Reference Range Interpretation Comments GLUCOSE (test code = 2217) 74 MG/DL BUN (test code = 2208) 34 MG/DL CREATININE (test code = 2214) 1.11 MG/DL eGFR AMER. (test code 60 ML/MIN/1.73 = 57887) eGFR NON- AMER. (test 51 ML/MIN/1.73 code = 66148) CALC BUN/CREAT (test code = 31 RATIO [...] (test code = 2219) 13 U/L LIPID [id number] 00:00:00 Test Item Value Reference Range Interpretation Comments CHOLESTEROL (test code = 2210) 220 MG/DL TRIGLYCERIDES (test code = 2232) 136 MG/DL HDL CHOLESTEROL (test code = 2220) 57 MG/DL CALC LDL CHOL (test code = 2237) 136 MG/DL RISK RATIO LDL/HDL (test code = 2.38 RATIO 2238) LIPID [id number] 00:00:00 Test Item Value Reference Range Interpretation Comments CHOLESTEROL (test code = 2210) 220 MG/DL TRIGLYCERIDES (test code = 2232) 136 MG/DL HDL CHOLESTEROL (test code = 2220) 57 MG/DL CALC LDL CHOL (test code = 2237) 136 MG/DL RISK RATIO LDL/HDL (test code = 2.38 RATIO 2238) CBC W/AUTO [id number] 00:00:00 Test Item Value Reference Range Interpretation [...] code = 1015) 294 K/UL CBC W/AUTO [id number] 00:00:00 Test Item Value Reference Range Interpretation [...] code = 1015) 294 K/UL CBC W/AUTO [id number] 00:00:00 Test Item Value Reference Range Interpretation [...] (test code = 1015) 294 K/UL HEMOGLOBIN [id number] 00:00:00 Test Item Value Reference Range Interpretation Comments HEMOGLOBIN A1c (test code = 68153) 6.5 % HEMOGLOBIN [id number] 00:00:00 Test Item Value Reference Range Interpretation Comments HEMOGLOBIN A1c (test code = 22540) 6.5 % HEMOGLOBIN [id number] 00:00:00 Test Item Value Reference Range Interpretation Comments HEMOGLOBIN A1c (test code = 90424) 6.5 % THYROID II PROFILE (T3U, T4, T7, TSH)[id number] 00:00:00 Test Item Value Reference Range Interpretation Comments T3 UPTAKE (test code = 2817) 30.8 % T4 (THYROXINE) (test code = 2819) 5.3 UG/DL CALCULATED T7 (FTI) (test code = 1.63 3100) TSH (test code = 2821) 3.1 UIU/ML THYROID II PROFILE (T3U, T4, T7, TSH)[id number] 00:00:00 Test Item Value Reference Range Interpretation Comments T3 UPTAKE (test code = 2817) 30.8 % T4 (THYROXINE) (test code = 2819) 5.3 UG/DL CALCULATED T7 (FTI) (test code = 1.63 2820) TSH (test code = 2821) 3.1 UIU/ML
[2022-06-22] MEDS ORDERED: NA CHLORIDE 0.9% 500 ML ONE (19:37)
[2022-06-22] MEDS ORDERED: NA CHLORIDE 0.9% 1,000 ML ONE (19:37)
[2022-06-22] MEDS ORDERED: ONDANSETRON 4 MG/2 ML VIAL ONE (19:37)
[2022-06-22] MEDS ORDERED: CEFTRIAXONE 1000 MG/VIAL ONE (19:37)
[2022-06-22 19:46] LABS: Urine Blood 2+ (Negative); Urine Glucose 1+ (Negative); Urine Protein 3+ (Negative); Urine Specific Gravity 1.025 (1.005-1.030); Urine pH 5.5 (5.0-7.0)
[2022-06-22 19:51] LABS: Absolute Lymphocytes (CBC) 1.1 K/uL (0.7-4.9); Lymphocytes % 6.8 % (15.3-44.8); MCV 91.6 fL (80-100); MPV 9.1 fL (7.6-11.3); RBC Red Blood Cell Count 4.15 M/uL (3.86-4.86)
[2022-06-22 19:52] LABS: Protime INR 1.13
--- NOTE | 2022-06-22 19:55 | RAD REPORT ---
EXAM DESCRIPTION: RAD - Chest Single View - 06/22/2022 7:45 pm CLINICAL HISTORY: COUGH Chest pain. COMPARISON: Chest Single View dated 09/04/2021; Chest Single View dated 08/03/2017 FINDINGS: Portable technique limits examination quality. Mild patchy opacity in the left base probably represents developing pneumonia. The lungs are otherwis e clear. The heart is normal in size. No displaced fractures.
[2022-06-22 20:05] LABS: Albumin 3.6 g/dL (3.4-5.0); Bilirubin Direct 0.2 mg/dL (0-0.2); Bilirubin Total 0.9 mg/dL (0.2-1.0); Magnesium 1.9 mg/dL (1.6-2.4); Potassium 4.3 mmol/L (3.5-5.1); Protein, Total 8.8 g/dL (6.4-8.2); Troponin High Sensitivity 7.6 pg/mL (<58.9)
[2022-06-22 20:32] LABS: Urine Bacteria <20 /HPF (<20); Urine Crystals Unidentified Few /HPF (None Seen); Urine Mucus Slight /HPF (None Seen)
[2022-06-22 20:38] LABS: SARS-COV-2 RT PCR NEGATIVE (NEGATIVE)
--- NOTE | 2022-06-22 20:54 | RAD REPORT ---
EXAM DESCRIPTION: CT - Head Brain Wo Cont - 06/22/2022 8:29 pm CLINICAL HISTORY: Dizziness, non-specific Headache, drowsiness COMPARISON: Head Brain Wo Cont dated 04/05/2022; Facial Bones W/ Mpr dated 04/05/2022 TECHNIQUE: All CT scans are performed using dose optimization technique as appropriate and may inclu de automated exposure control or mA/KV adjustment according to patient size. FINDINGS: No intracranial hemorrhage, hydrocephalus or extra-axial fluid collection.Mild generalized brain atrophy is present with mild periventricular and deep white matter chronic microvascular ische shanta changes.No areas of brain edema or evidence of midline shift. The paranasal sinuses and mastoids are clear. The calvarium is intact. IMPRESSION: No acute intracranial abnormality.
--- NOTE | 2022-06-22 20:56 | RAD REPORT ---
EXAM DESCRIPTION: CT - Stone Protocol - 06/22/2022 8:33 pm CLINICAL HISTORY: Flank pain. Flank pain, kidney stone suspected COMPARISON: Abdomen Angio dated 01/30/2022 TECHNIQUE: Axial images were obtained without oral or IV contrast. Lack of contrast limits solid org an and vascular assessment. The ftich-jg-tynt spans the entirety of the system partially obscuring uppermost abdomen and lung bases. Coronal reformatted images were obtained and reviewed. All CT scans are performed using dose optimization technique as appropriate and may include automated exposure control or mA/KV adjustment according to patient size. FINDINGS: The lower lung marina are clear. Imaged portions of the liver and spleen show no suspicious findings on non-contrast imaging. The panc reas and adrenal glands are normal. No pathologic lymphadenopathy in the abdomen or pelvis. No urinary tract stones or obstructive uropathy. Mild fat stranding surrounding the left kidney noted . No bowel obstruction, free air, free fluid or abscess. Nonvisualized appendix. No significant bony abnormality. IMPRESSION: No urinary tract stones or obstructive uropathy. Mild left perinephric inflammatory changes could indicate infection.
--- NOTE | 2022-06-22 21:10 | ER ---
Nurse's Notes Former[facility] Name: Kinga Singleton Age: 71 yrs Sex: Female : 1950 Arrival Date: 06/22/2022 Time: 18:54 Bed 4 Private MD: Diagnosis: Vomiting;Type 1 diabetes mellitus with hyperglycemia;Acute kidney failure, unspecified-on chronic;Elevated white blood cell count;Pneumonia due to other specified bacteria-left lower lobe;Pyelonephritis acute;Dehydration;Weakness Presentation: 06/22 19:01 Chief complaint: Patient's son or daughter states: generalized weakness since last iw night, no fever or chills, she feels tired and like she can't stand up , last night she vomited. Coronavirus screen: At this time, the client does not indicate any symptoms associated with coronavirus-19. Ebola Screen: Patient negative for fever greater than or equal to 101.5 degrees Fahrenheit, and additional compatible Ebola Virus Disease symptoms Patient denies exposure to infectious person. Patient denies travel to an Ebola-affected area in the 21 days before illness onset. No symptoms or risks identified at this time. Initial Sepsis Screen: Does the patient meet any 2 criteria? No. Patient's initial sepsis screen is negative. Does the patient have a suspected source of infection? No. Patient's initial sepsis screen is negative. Risk Assessment: Do you want to hurt yourself or someone else? Patient reports no desire to harm self or others. Onset of symptoms was June 21, 2022. 19:01 Method Of Arrival: Wheelchair iw 19:01 Acuity: JITENDRA 3 iw Historical: - Allergies: 19:03 No Known Allergies; iw - PMHx: 19:03 Diabetes - IDDM; Hypercholesterolemia; Hypertensive disorder; iw - PSHx: 19:03 Total abdominal hysterectomy; iw - Immunization history:: Adult Immunizations up to date, Client reports receiving the 2nd dose of the Covid vaccine. - Social history:: Smoking status: Patient denies any tobacco usage or history of. Screenin:06 [facility] ED Fall Risk Assessment (Adult) History of falling in the last 3 months, pf1 including since admission No falls in past 3 months (0 pts) Confusion or Disorientation No (0 pts) Intoxicated or Sedated No (0 pts) Impaired Gait Yes (1 pt) Mobility Assist Device Used Yes (1 pt) Altered Elimination Yes (1 pt) Score/Fall Risk Level 3 or more points = High Risk Oriented to surroundings, Maintained a safe environment, Educated pt \T\ family on fall prevention, incl call for assistance when getting out of bed, Assessed \T\ reinforced patient's understanding of fall precautions, Provided non-skid footwear, Hourly rounding (assess needs \T\ fall precautionary measures) done, Used ambulatory aids as needed (educated on \T\ assisted with), Used gait belt as appropriate Implemented a Fall Risk Plan of Care, Apply high fall risk patient identification: yellow non skid footwear/ fall signage, Placed fall mat w/ non beveled edge next to bed, Offered frequent toileting (1:1 observation), Utilized family, sitter, or virtual real estate services administrator as indicated. 22:51 Abuse screen: Denies threats or abuse. Nutritional screening: No deficits noted. pf1 22:52 Tuberculosis screening: No symptoms or risk factors identified. pf1 Assessment: 19:30 General: Appears in no apparent distress. comfortable, well groomed, well developed, pf1 Behavior is calm, cooperative, appropriate for age, quiet. Pain: Complains of pain in Patient C/O intermittent right side chest burning pain sensation of 7,onset yesterday. Patiennt denies any pain at this time. Pain currently is 0 out of 10 on a pain scale. Neuro: Level of Consciousness is awake, alert, obeys commands, Oriented to person, place, time, situation, Reports weakness since yesterday. Cardiovascular: Chest pain is described as Pain is 7 out of 10 on a pain scale. began yesteray. Respiratory: No deficits noted. Airway is patent Trachea midline Respiratory effort is even, unlabored, Respiratory pattern is regular, symmetrical, Breath sounds are clear bilaterally. GI: Abdomen is flat, non-distended, Reports nausea, vomiting. : Reports urinary frequency, since yesterday. EENT: No deficits noted. No signs and/or symptoms were reported regarding the EENT system. Derm: No deficits noted. No signs and/or symptoms reported regarding the dermatologic system. Musculoskeletal: No deficits noted. No signs and/or symptoms reported regarding the musculoskeletal system. 20:24 Reassessment: Patient appears in no apparent distress at this time. Patient and/or pf1 family updated on plan of care and expected duration. Pain level reassessed. Patient is alert, oriented x 3, equal unlabored respirations, skin warm/dry/pink. General: Patient taken to catscan via stretcher. . 21:30 Reassessment: Patient appears in no apparent distress at this time. Patient and/or pf1 family updated on plan of care and expected duration. Pain level reassessed. Patient is alert, oriented x 3, equal unlabored respirations, skin warm/dry/pink. Patient states feeling better. 22:30 Reassessment: Patient appears in no apparent distress at this time. Patient and/or pf1 family updated on plan of care and expected duration. Pain level reassessed. Patient is alert, oriented x 3, equal unlabored respirations, skin warm/dry/pink. Patient states feeling better. Patient states symptoms have improved. 22:48 General: FSBGL 277. pf1 Vital Signs: 19:01 BP 114 / 67; Pulse 99; Resp 16; Temp 98.6; Pulse Ox 97% on R/A; Weight 73.94 kg; Height iw 5 ft. 2 in. (157.48 cm); 20:01 BP 120 / 67; Pulse 85; Resp 18; Pulse Ox 96% on R/A; mb9 19:01 Body Mass Index 29.81 (73.94 kg, 157.48 cm) iw ED Course: 18:54 Patient arrived in ED. rg4 19:03 Triage completed. iw 19:04 Arm band placed on. iw 19:07 Murray Ponce MD is Attending Physician. cr 19:20 Patient has correct armband on for positive identification. Placed in gown. Bed in low pf1 position. Call light in reach. Side rails up X2. Adult w/ patient. 19:30 Inserted saline lock: 22 gauge in right antecubital area, using aseptic technique. jb4 Blood collected. 19:30 Initial lab(s) drawn, by me, sent to lab. First set of blood cultures drawn by me. jb4 19:31 Mayra ray, RN is Primary Nurse. pf1 19:40 Lactate w/ 2H reflex if indic. Sent. jb4 19:40 Basic Metabolic Panel Sent. jb4 19:40 CBC with Diff Sent. jb4 19:40 LFT's Sent. jb4 19:40 Magnesium Sent. jb4 19:40 NT PRO-BNP Sent. jb4 19:40 PT-INR Sent. jb4 19:40 Troponin HS Sent. jb4 19:45 Inserted saline lock: 22 gauge in right forearm, using aseptic technique. jb4 19:45 Second set of blood cultures drawn by me. jb4 19:47 XRAY Chest (1 view) In Process Unspecified. EDMS 20:07 No provider procedures requiring assistance completed. pf1 20:09 COVID-19/FLU A+B Sent. pf1 20:12 Urine Microscopic Only Sent. pf1 20:31 CT Head Brain wo Cont In Process Unspecified. EDMS 20:33 Stone Protocol In Process Unspecified. EDMS 21:07 Jordan Marquez MD is Hospitalizing Provider. [facility] 22:32 Urine Culture Sent. pf1 Administered Medications: 19:55 Drug: NS 0.9% 500 ml Route: IV; Rate: bolus; Site: right forearm; pf1 20:26 Follow up: Response: No adverse reaction; IV Status: Completed infusion; IV Intake: pf1 500ml 19:55 Drug: NS 0.9% 1000 ml Route: IV; Rate: 125 ml/hr; Site: right forearm; pf1 20:26 Follow up: Response: No adverse reaction pf1 19:55 Drug: Zofran (Ondansetron) 4 mg Route: IVP; Site: right forearm; pf1 20:25 Follow up: Response: No adverse reaction; Marked relief of symptoms pf1 19:55 Drug: Rocephin (cefTRIAXone) 1 grams Route: IV; Rate: per protocol; Site: right forearm;pf1 20:00 Follow up: Response: No adverse reaction; IV Status: Completed infusion; IV Intake: [id number] 21:30 Drug: NS 0.9% 500 ml Route: IV; Rate: bolus; Site: right forearm; pf1 22:38 Follow up: IV Status: Completed infusion; IV Intake: 500ml pf1 21:50 Drug: Zithromax (azithromycin) 500 mg Route: IVPB; Infused Over: 1 hrs; Site: right pf1 forearm; 21:50 Drug: Insulin Regular Human 5 units {Co-Signature: jbAbby (Karsten Roland RN).} Route: IVP; pf1 Site: right forearm; 22:38 Follow up: Response: No adverse reaction pf1 21:50 Drug: Semglee 100 unit/mL 25 units Route: Sub-Q; Site: right upper arm; pf1 22:37 Follow up: Response: No adverse reaction pf1 Medication: 22:51 VIS not applicable for this client. pf1 Intake: 20:00 IV: 10ml; Total: 10ml. pf1 20:26 IV: 500ml; Total: 510ml. pf1 22:38 IV: 500ml; Total: 1010ml. pf1 Outcome: 21:10 Decision to Hospitalize by Provider. cr 22:52 Condition: stable pf1 23:02 Patient left the ED. jb4 Signatures: Dispatcher [employer] EDMS Murray Ponce MD MD cha Williams, Irene, RN RN iw Garcia, Rubi rg4 Karsten Roland RN RN jb4 Johanne Recio RN RN mb9 Mayra ray RN RN pf1 Karsten Roland RN jb4
--- NOTE | 2022-06-22 21:11 | EDPHYS ---
Physician Documentation [facility] Name: Kinga Singleton Age: 71 yrs Sex: Female : 1950 Arrival Date: 06/22/2022 Time: 18:54 Bed 4 Private MD: OLVIN Physician Murray Ponce HPI: 06/22 19:45 This 71 yrs old Female presents to ER via Wheelchair with complaints of cr Weakness. 19:45 The patient presents to the emergency department with nausea, vomiting. Onset: The cr symptoms/episode began/occurred 2 day(s) ago. Possible causes: unknown. The symptoms are aggravated by. Historical: - Allergies: 19:03 No Known Allergies; iw - PMHx: 19:03 Diabetes - IDDM; Hypercholesterolemia; Hypertensive disorder; iw - PSHx: 19:03 Total abdominal hysterectomy; iw - Immunization history:: Adult Immunizations up to date, Client reports receiving the 2nd dose of the Covid vaccine. - Social history:: Smoking status: Patient denies any tobacco usage or history of. ROS: 19:47 Constitutional: Negative for fever, chills, and weight loss, Eyes: Negative for injury, cr pain, redness, and discharge, ENT: Negative for injury, pain, and discharge, Neck: Negative for injury, pain, and swelling, Cardiovascular: Negative for chest pain, palpitations, and edema, Respiratory: Negative for shortness of breath, cough, wheezing, and pleuritic chest pain, Back: Negative for injury and pain, : Negative for injury, bleeding, discharge, and swelling, MS/Extremity: Negative for injury and deformity, Skin: Negative for injury, rash, and discoloration, Psych: Negative for depression, anxiety, suicide ideation, homicidal ideation, and hallucinations, Allergy/Immunology: Negative for hives, rash, and allergies, Endocrine: Negative for neck swelling, polydipsia, polyuria, polyphagia, and marked weight changes, Hematologic/Lymphatic: Negative for swollen nodes, abnormal bleeding, and unusual bruising. 19:47 Abdomen/GI: Positive for nausea, vomiting. 19:47 Neuro: Positive for weakness. Exam: 19:47 Constitutional: This is a well developed, well nourished patient who is awake, alert, cr and in no acute distress. Head/Face: Normocephalic, atraumatic. Eyes: Pupils equal round and reactive to light, extra-ocular motions intact. Lids and lashes normal. Conjunctiva and sclera are non-icteric and not injected. Cornea within normal limits. Periorbital areas with no swelling, redness, or edema. ENT: Nares patent. No nasal discharge, no septal abnormalities noted. Tympanic membranes are normal and external auditory canals are clear. Oropharynx with no redness, swelling, or masses, exudates, or evidence of obstruction, uvula midline. Mucous membranes moist. Neck: Trachea midline, no thyromegaly or masses palpated, and no cervical lymphadenopathy. Supple, full range of motion without nuchal rigidity, or vertebral point tenderness. No Meningismus. Chest/axilla: Normal chest wall appearance and motion. Nontender with no deformity. No lesions are appreciated. Cardiovascular: Regular rate and rhythm with a normal S1 and S2. No gallops, murmurs, or rubs. Normal PMI, no JVD. No pulse deficits. Respiratory: Lungs have equal breath sounds bilaterally, clear to auscultation and percussion. No rales, rhonchi or wheezes noted. No increased work of breathing, no retractions or nasal flaring. Abdomen/GI: Soft, non-tender, with normal bowel sounds. No distension or tympany. No guarding or rebound. No evidence of tenderness throughout. Back: No spinal tenderness. No costovertebral tenderness. Full range of motion. Female : Normal external genitalia. Skin: Warm, dry with normal turgor. Normal color with no rashes, no lesions, and no evidence of cellulitis. MS/ Extremity: Pulses equal, no cyanosis. Neurovascular intact. Full, normal range of motion. Neuro: Awake and alert, GCS 15, oriented to person, place, time, and situation. Cranial nerves II-XII grossly intact. Motor strength 5/5 in all extremities. Sensory grossly intact. Cerebellar exam normal. Normal gait. Psych: Awake, alert, with orientation to person, place and time. Behavior, mood, and affect are within normal limits. 19:47 ECG was reviewed by the Attending Physician. Vital Signs: 19:01 BP 114 / 67; Pulse 99; Resp 16; Temp 98.6; Pulse Ox 97% on R/A; Weight 73.94 kg; Height iw 5 ft. 2 in. (157.48 cm); 20:01 BP 120 / 67; Pulse 85; Resp 18; Pulse Ox 96% on R/A; mb9 19:01 Body Mass Index 29.81 (73.94 kg, 157.48 cm) iw MDM: 19:07 Patient medically screened. [facility] 19:52 Differential diagnosis: Nonspecific abd pain, gastritis, pancreatitis, diverticulitis, cr viral gastroenteritis, gastroenteritis. Differential Diagnosis sepsis, flu. Data reviewed: vital signs, nurses notes, lab test result(s), EKG, radiologic studies, CT scan, plain films. Consideration of Admission/Observation Patient was admitted/placed on observation. Escalation of care including admission/observation considered. I considered the following discharge prescriptions or medication management in the emergency department Medications were administered in the Emergency Department. See MAR. Test considered but Not performed: Ultrasound us gb. Historians other than the Patient: Daughter/Son: son , very familiar with history. 06/22 19:14 Order name: Basic Metabolic Panel; Complete Time: 20:45 [facility] 06/22 19:14 Order name: CBC with Diff; Complete Time: 20:45 [facility] 06/22 19:14 Order name: LFT's; Complete Time: 20:45 [facility] 06/22 19:14 Order name: Magnesium; Complete Time: 20:45 [facility] 06/22 19:14 Order name: NT PRO-BNP; Complete Time: 20:45 [facility] 06/22 19:14 Order name: PT-INR; Complete Time: 20:45 [facility] 06/22 19:14 Order name: Troponin HS; Complete Time: 20:45 [facility] 06/22 19:14 Order name: Blood Culture Adult (2) [facility] 06/22 19:14 Order name: Lactate w/ 2H reflex if indic.; Complete Time: 20:45 [facility] 06/22 19:14 Order name: COVID-19/FLU A+B; Complete Time: 20:45 [facility] 06/22 19:44 Order name: Lipase [facility] 06/22 19:46 Order name: Urine Dipstick-Ancillary; Complete Time: 20:45 [facility] 06/22 19:47 Order name: Urine Microscopic Only; Complete Time: 20:45 [facility] 06/22 20:46 Order name: Urine Culture [facility] 06/22 19:14 Order name: XRAY Chest (1 view); Complete Time: 20:45 [facility] 06/22 19:14 Order name: EKG; Complete Time: 19:15 [facility] 06/22 19:14 Order name: Cardiac monitoring; Complete Time: 19:32 [facility] 06/22 19:14 Order name: EKG - Nurse/Tech; Complete Time: 19:33 [facility] 06/22 19:14 Order name: CT Head Brain wo Cont; Complete Time: 21:05 [facility] 06/22 19:47 Order name: CT Stone Protocol [facility] 06/22 19:51 Order name: Stone Protocol; Complete Time: 21:05 [facility] 06/22 23:01 Order name: Glucose, Ancillary Testing [facility] 06/22 19:14 Order name: IV Saline Lock; Complete Time: 19:40 [facility] 06/22 19:14 Order name: Labs collected and sent; Complete Time: 19:40 [facility] 06/22 19:14 Order name: O2 Per Protocol; Complete Time: 19:32 [facility] 06/22 19:14 Order name: O2 Sat Monitoring; Complete Time: 19:32 [facility] 06/22 19:14 Order name: Urine Dipstick-Ancillary (obtain specimen); Complete Time: 19:50 [facility] EC:47 Rate is 92 beats/min. QRS [place] is Normal. IA interval is normal. QRS interval is cr normal. QT interval is normal. No Q waves. T waves are Normal. No ST changes noted. Clinical impression: NSR w/ Non-specific ST/T Changes and No evidence of ischemia. Interpreted by me. Reviewed by me. Administered Medications: 19:55 Drug: NS 0.9% 500 ml Route: IV; Rate: bolus; Site: right forearm; pf1 20:26 Follow up: Response: No adverse reaction; IV Status: Completed infusion; IV Intake: pf1 500ml 19:55 Drug: NS 0.9% 1000 ml Route: IV; Rate: 125 ml/hr; Site: right forearm; pf1 20:26 Follow up: Response: No adverse reaction pf1 19:55 Drug: Zofran (Ondansetron) 4 mg Route: IVP; Site: right forearm; pf1 20:25 Follow up: Response: No adverse reaction; Marked relief of symptoms pf1 19:55 Drug: Rocephin (cefTRIAXone) 1 grams Route: IV; Rate: per protocol; Site: right forearm;pf1 20:00 Follow up: Response: No adverse reaction; IV Status: Completed infusion; IV Intake: [id number] 21:30 Drug: NS 0.9% 500 ml Route: IV; Rate: bolus; Site: right forearm; pf1 22:38 Follow up: IV Status: Completed infusion; IV Intake: 500ml pf1 21:50 Drug: Zithromax (azithromycin) 500 mg Route: IVPB; Infused Over: 1 hrs; Site: right pf1 forearm; 21:50 Drug: Insulin Regular Human 5 units {Co-Signature: [email or web address] (Karsten Roland RN).} Route: IVP; pf1 Site: right forearm; 22:38 Follow up: Response: No adverse reaction pf1 21:50 Drug: Semglee 100 unit/mL 25 units Route: Sub-Q; Site: right upper arm; pf1 22:37 Follow up: Response: No adverse reaction pf1 Disposition Summary: 06/22/22 21:10 Hospitalization Ordered Hospitalization Status: Inpatient Admission cr Provider: Jordan Marquez cha Location: Telemetry/[facility] (Inpatient) cr Condition: Fair cr Problem: new cr Symptoms: have improved cr Bed/Room Type: Standard cr Room Assignment: [id number](06/22/22 21:50) cg Diagnosis - Vomiting cr - Type 1 diabetes mellitus with hyperglycemia cr - Acute kidney failure, unspecified - on chronic cr - Elevated white blood cell count cr - Pneumonia due to other specified bacteria - left lower lobe cr - Pyelonephritis acute cr - Dehydration cr - Weakness cr Forms: - Medication Reconciliation Form cr - SBAR form cr Signatures: Dispatcher [employer] Murray Echavarria MD MD cha Williams, Irene, RN RN iw Garcia, Cindy, RN RN Mayra ray RN RN pf1 Karsten Roland RN jb4 Corrections: (The following items were deleted from the chart) 21:10 cr cg
[2022-06-22] MEDS ORDERED: INSULIN GLARGINE 100 UNIT/ML SQ ONE (21:37)
[2022-06-22] MEDS ORDERED: AZITHROMYCIN 500 MG INJ IVPB ONE (21:38)
[2022-06-22] MEDS ORDERED: INSULIN -REGULAR HUMAN 50 UNIT/0.5 ML ML ONE (21:39)
[2022-06-22] MEDS ORDERED: NA CHLORIDE 0.9% 250 ML ONE (21:39)
--- NOTE | 2022-06-22 22:01 | P.HP ---
Certification for Inpatient Patient admitted to: Inpatient With expected LOS: >2 Midnights Patient will require the following post-hospital care: None Practitioner: I am a practitioner with admitting privileges, knowledge of patient current condition, hospital course, and medical plan of care. Services: Services provided to patient in accordance with Admission requirements found in Title 42 Section 412.3 of the Code of Federal Regulations <AraceliDu Crouch - Last Filed: 06/22/22 21:58> Patient History Date of Service: 06/22/22 Reason for admission: Sepsis, pyelonephritis History of Present Illness: 71-year-old female with history of insulin-dependent diabetes, hypertension, hyperlipidemia presents to the emergency department for weakness, malaise, urinary frequency/urgency. Symptoms been going on the last couple of days at home. She was evaluated in the emergency department her labs were significant for leukocytosis white blood cell count of 16.1 hyperglycemia glucose 374 creatinine 1.45 GFR 38 lactic acid 1.7 BNP 1390 urinalysis with 1+ leuk esterase, urine microscopic with greater than 50 white cells chest area was performed which revealed mild patchy opacity in the left base probably represents developing pneumonia. CT abdomen pelvis was performed without contrast which revealed no urinary tract stones or obstructive uropathy, mild left perinephritic inflammatory changes could indicate infection. Patient meets criteria for sepsis with UTI/possibly developing pneumonia. She is given Rocephin/Zithromax in ED. ED provider is to admit for further evaluation and management of sepsis, UTI/pyelonephritis, possible early pneumonia. - Past Medical/Surgical History Diabetic: Yes -: high cholesterol -: IDDM -: HTN -: Dyslipidemia -: DM type II -: hysterectomy Psychosocial/ Personal History: Lives at home with her family - Family History Mother -: Diabetes Father -: Diabetes - Social History Smoking Status: Never smoker Alcohol use: No CD- Drugs: No Caffeine use: No Place of Residence: Home <Du Charles - Last Filed: 06/22/22 21:58> Date of Service: 06/23/22 <Jordan Marquez - Last Filed: 06/23/22 10:11> Allergies No Known Allergies Allergy (Verified 08/04/17 01:02) Home Medications: Amlodipine Besylate 1 tab PO DAILY 08/04/17 Aspirin [Aspir-Low] 1 tab PO DAILY 08/04/17 Insulin Detemir [Levemir Flextouch] 35 units SQ BID 08/04/17 Alendronate [Fosamax*] 10 mg DAILY 01/28/22 Gabapentin 100 mg DAILY 01/28/22 Lisinopril [Zestril] 40 mg DAILY 01/28/22 Metoprolol Succinate 100 mg DAILY 01/28/22 Sitagliptin Phos/Metformin HCl [Janumet Xr 100-1,000 mg Tablet] 50 - 1,000 mg DAILY 01/28/22 Ciprofloxacin HCl [Cipro 500 MG Tablet] 500 mg PO BID 12 Days #24 tab 01/31/22 Pantoprazole Sodium [Protonix] 40 mg PO BID 30 Days #60 tab 01/31/22 Tramadol HCl [Ultram] 50 mg PO Q6H PRN #12 tab 01/31/22 metroNIDAZOLE [Flagyl] 500 mg PO Q8H 12 Days #36 tab 01/31/22 Review of Systems 10-point ROS is otherwise unremarkable General: Weakness, Malaise Genitourinary: Frequency, Urgency <Du Charles - Last Filed: 06/22/22 21:58> Physical Examination - Physical Exam General: Alert, In no apparent distress, Oriented x3 HEENT: Atraumatic, PERRLA, Mucous membr. moist/pink, EOMI, Sclerae nonicteric Neck: Supple, 2+ carotid pulse no bruit, No LAD, Without JVD or thyroid abnormality Respiratory: Clear to auscultation bilaterally, Normal air movement Cardiovascular: Regular rate/rhythm, Normal S1 S2 Capillary refill: <2 Seconds Gastrointestinal: Normal bowel sounds, No tenderness Musculoskeletal: No tenderness Integumentary: No rashes Neurological: Normal speech, Normal strength at 5/5 x4 extr, Normal tone, Normal affect - Studies Laboratory Data (last 24 hrs) 06/22/22 19:30: PT 12.4, INR 1.13 06/22/22 19:30: WBC 16.10 H, Hgb 12.6, Hct 38.0, Plt Count 216 06/22/22 19:30: Sodium 135 L, Potassium 4.3, BUN 23 H, Creatinine 1.45 H, Glucose 374 H, Magnesium 1.9, Total Bilirubin 0.9, AST 11 L, ALT 20, Alkaline Phosphatase 123 H <Du Charles - Last Filed: 06/22/22 21:58> - Studies Laboratory Data (last 24 hrs) 06/22/22 19:30: Lipase 157 06/22/22 19:30: PT 12.4, INR 1.13 06/22/22 19:30: WBC 16.10 H, Hgb 12.6, Hct 38.0, Plt Count 216 06/22/22 19:30: Sodium 135 L, Potassium 4.3, BUN 23 H, Creatinine 1.45 H, Glucose 374 H, Magnesium 1.9, Total Bilirubin 0.9, AST 11 L, ALT 20, Alkaline Phosphatase 123 H <Jordan Marquez - Last Filed: 06/23/22 10:11> Assessment and Plan - Plan Assessment: Sepsis secondary to UTI/pyelonephritis with possible early left base pneumonia Diabetes mellitus type 2insulin-dependent with hyperglycemia Hypertension Hyperlipidemia Plan: Sepsis secondary to UTI/pyelonephritis with possible early left base pneumonia: SIRS criteria present including leukocytosis, tachycardia. Source infection confirmed with UTI/pyelonephritis as well as possible left early pneumonia. She is given antibiotics Rocephin/Zithromax blood cultures obtained prior to antibiotic administration. No severe sepsis criteria met. Follow urine/blood cultures. Diabetes mellitus type 2insulin-dependent with hyperglycemia: ACH S Accu-Chek, sliding scale insulin. A1c in the morning. Continue reduced dose home insulin. Hypertension: Hold oral antihypertensives in the setting of sepsis. Continue when appropriate. Hyperlipidemia: Continue home med. DVT PPX: Lovenox Code status: Full Discharge Plan: Home Plan to discharge in: 72 Hours - Advance Directives Does patient have a Living Will: No Does patient have a Durable POA for Healthcare: No - Code Status/Comfort Care Code Status Assessed: Yes (Full code) Critical Care: No Time Spent Managing Pts Care (In Minutes): 55 <Du Charles - Last Filed: 06/22/22 21:58> Physician Review: Patient Assessed, Agree with Above Assessment and Plan <Jordan Marquez - Last Filed: 06/23/22 10:11>
[2022-06-22 23:34] VITALS: BMI 29.8
[2022-06-22] MEDS: Ringers Lactate 1,000 ML IV SCH (23:52)
[2022-06-22] MEDS ORDERED: Ringers Lactate 1,000 ML IV ONE (23:59)
[2022-06-23] MEDS: ONDANSETRON 4 MG/2 ML VIAL IV PRN (04:12)
[2022-06-23 04:32] LABS: Absolute Lymphocytes (CBC) 0.9 K/uL (0.7-4.9); Hematocrit 33.7 % (36.0-45.0); Lymphocytes % 6.2 % (15.3-44.8); MCV 89.2 fL (80-100); MPV 9.3 fL (7.6-11.3); RBC Red Blood Cell Count 3.77 M/uL (3.86-4.86)
[2022-06-23 04:49] LABS: Potassium 4.1 mmol/L (3.5-5.1)
[2022-06-23] MEDS: INSULIN -REGULAR HUMAN 50 UNIT/0.5 ML ML SQ SCH ×4 (08:45→21:00)
[2022-06-23] MEDS: ENOXAPARIN 30 MG/0.3 ML SQ SCH (08:46)
[2022-06-23] MEDS ORDERED: CEFTRIAXONE 2,000 MG in NA CHLORIDE 0.9% 100 ML IV SCH (09:00)
[2022-06-23] MEDS ORDERED: AZITHROMYCIN IV 500 MG in NA CHLORIDE 0.9% 250 ML IVPB SCH (09:00)
--- NOTE | 2022-06-23 11:04 | P.PN ---
Subjective Date of Service: 06/23/22 Chief Complaint: Sepsis, pyelonephritis No acute events since admission. She states that she has mild left flank pain, but this has improved since admission. She endorses dysuria and urinary frequency. She denies any shortness of breath or cough. 1/4 blood cultures has returned positive for gram-negative rods. Review of Systems 10-point ROS is otherwise unremarkable Genitourinary: Dysuria, Frequency Physical Examination - Vital Signs Temperature: 98.3 F Blood Pressure: 116/58 Pulse: 100 Respirations: 20 Pulse Ox (%): 96 - Physical Exam General: Alert, In no apparent distress, Oriented x3 HEENT: Atraumatic, Mucous membr. moist/pink, EOMI, Sclerae nonicteric Neck: JVD not distended Respiratory: Clear to auscultation bilaterally, Normal air movement Cardiovascular: No edema, Normal S1 S2, No gallops, No rubs, No murmurs, Other (tachycardic rate) Gastrointestinal: Normal bowel sounds, Soft and benign, Non-distended, No tenderness, No masses, No guarding Musculoskeletal: No clubbing, Other (left flank pain) Integumentary: No rashes Neurological: Normal speech, Normal affect - Studies Laboratory Data (last 24 hrs) 06/22/22 19:30: Lipase 157 06/22/22 19:30: PT 12.4, INR 1.13 06/22/22 19:30: WBC 16.10 H, Hgb 12.6, Hct 38.0, Plt Count 216 06/22/22 19:30: Sodium 135 L, Potassium 4.3, BUN 23 H, Creatinine 1.45 H, Glucose 374 H, Magnesium 1.9, Total Bilirubin 0.9, AST 11 L, ALT 20, Alkaline Phosphatase 123 H Microbiology Data (last 24 hrs): 06/22/22 19:30 Blood - Blood Blood Culture Gram Stain - Final Assessment And Plan - Plan # Sepsis likely secondary to Acute Left Pyelonephritis with Gram-Negative Bacteremia and Questionable Left Lower Lobe Pneumonia She met sepsis criteria based on HR > 90 bpm and WBC > 12,000, and the suspected source is urinary +/- pneumonia. - Chest x-ray = "mild patchy opacity in the left base probably represents developing pneumonia. The lungs are otherwise clear. The heart is normal in size. No displaced fractures." - CT head = "no acute intracranial abnormality." - CT abdomen = "No urinary tract stones or obstructive uropathy. Mild left perinephric inflammatory changes could indicate infection." - Consulted Infectious Diseases - recommendations appreciated - Sepsis order set was initiated - Initial Lactate was 1.7 - Blood cultures drawn before antibiotics were given - 06/07 positive for gram-negative rods - Broad spectrum antibiotics started: Ceftriaxone + Azithromycin - In regards to fluids: - 30 mL/kg of IV fluids was not administered given SBP > 90, MAP > 65, lactic acid < 4 # KDIGO Stage I Acute Kidney Injury - Creatinine = 1.45 -> 1.23 (creatinine was 0.95 on 01/31/2022) - Urinalysis = 1+ glucose, 2+ blood, 1+ leukocyte esterase, 510 RBC, > 50 WBCs, 3+ protein - Gentle IV hydration with Lactated Ringers' @ 75 mL/hr - Monitor creatinine and urine output - If worsening, obtain renal ultrasound - Renally dose medications # Hyperglycemia in Type II Diabetes Mellitus - Hgb A1c = 8.1 % - Continue home insulin glargine + correction scale insulin - Hold home sitagliptin/metformin while hospitalized # Hypertension - Hold home amlodipine, lisinopril, metoprolol due to concern for sepsis # Dyslipidemia - Resume home meds once verified # Microscopic Hematuria - Likely due to pyelonephritis, but follow-up with PCP for further evaluation post-discharge Jordan Marquez M.D.
[2022-06-23] MEDS: Meropenem 1,000 MG in NA CHLORIDE 0.9% 100 ML IV SCH ×2 (12:30→21:00)
[2022-06-23] MEDS: Ringers Lactate 1,000 ML IV SCH ×5 (12:51→21:59)
[2022-06-23] MEDS: ACETAMINOPHEN 500 MG TAB PO PRN (17:08)
--- NOTE | 2022-06-23 17:33 | EKG ---
Test Date: 2022-06-22 Test Time: 19:31:20 Engine Assembler: RV MEASUREMENT RESULTS: Intervals: Rate: 92 ID: [id number] QRSD: 88 QT: 376 QTc: 464 Godfrey: P: 35 ID: [id number] QRS: 84 T: 51 INTERPRETIVE STATEMENTS: Normal sinus rhythm Normal ECG Compared to ECG 05/16/2022 13:25:25 No significant changes Electronically Signed On 06-23-22 17:30:46 DIRECTOR OF STUDENT LIFE by Calos Calle
--- NOTE | 2022-06-23 17:33 | EKG ---
Test Date: 2022-06-22 Test Time: 19:41:48 Cell Phone Repair Technician: RV MEASUREMENT RESULTS: Intervals: Rate: 88 NJ: 186 QRSD: 88 QT: 372 QTc: 450 [place]: P: 46 NJ: 186 QRS: 89 T: 54 INTERPRETIVE STATEMENTS: Normal sinus rhythm Normal ECG Compared to ECG 06/22/2022 19:31:20 No significant changes Electronically Signed On 06-23-22 17:30:44 DATA SECURITY COORDINATOR by Calos Calle
[2022-06-23] MEDS: INSULIN GLARGINE 100 UNIT/ML SQ SCH (21:53)
--- NOTE | 2022-06-23 22:54 | CON ---
History Of Present Illness: This is a 71-year-old female, I was consulted for left-sided pyelonephri tis and urosepsis. The patient is a 71-year-old female with significant history of diabetes mellitus , hypertension, hyperlipidemia, coming in with weakness, burning urination, and increased frequency a nd malaise. Denies any headache, nausea, vomiting, chest pain, abdominal pain, constipation, or diar nancy. The patient is currently being treated with meropenem, Rocephin, and Zithromax. Past Medical History: As per HPI. Social History: Nonsmoker, nondrinker. Family History: Noncontributory. Medications: . See MARS for other medications. Allergies: NO KNOWN DRUG ALLERGIES. Review of Systems: A 10-point review was performed. Physical Examination: General: A 71-year-old female, lying in bed, not in acute cardiopulmonary distress. Vital Signs: Temperature 98, pulse 89, respirations 18, blood pressure 161/73. HEENT: Unremarkable. Neck: Supple. Lungs: Basal crackles. Heart: S1, S2. Regular. Abdomen: Soft, nontender. Bowel sounds present. Extremities: No edema. Laboratory Data: WBC 13.7, hemoglobin 11.5, platelets are 197. BUN is 23, creatinine 1.2, glucose i s 262. Hemoglobin A1c is 8.1. Assessment And Plan: A 71-year-old female with significant history of diabetes mellitus and hyperten [place], coming in with left-sided pyelonephritis and urinary tract infection. Blood cultures are growi ng gram-negative rods. Urine cultures are pending. Continue Zithromax. We will switch patient to m eropenem. Leukocytosis. Total course of antibiotics should be 14 days for bacteremia and repeat cul tures. Anemia of chronic disease. Moderate protein-calorie malnourishment. We will follow the naila ent as needed. NF/MODL Voice ID: [id number] Report ID: [id number]
[2022-06-24] MEDS: ACETAMINOPHEN 500 MG TAB PO PRN (00:51)
[2022-06-24 04:50] LABS: Absolute Lymphocytes (CBC) 1.7 K/uL (0.7-4.9); Hematocrit 29.2 % (36.0-45.0); Lymphocytes % 14.8 % (15.3-44.8); MCV 90.3 fL (80-100); RBC Red Blood Cell Count 3.23 M/uL (3.86-4.86)
[2022-06-24 05:22] LABS: Potassium 3.7 mmol/L (3.5-5.1)
[2022-06-24] MEDS: INSULIN -REGULAR HUMAN 50 UNIT/0.5 ML ML SQ SCH ×4 (07:30→20:59)
[2022-06-24] MEDS: ONDANSETRON 4 MG/2 ML VIAL IV PRN (08:18)
[2022-06-24] MEDS: Meropenem 1,000 MG in NA CHLORIDE 0.9% 100 ML IV SCH ×2 (08:19→20:52)
[2022-06-24] MEDS: AZITHROMYCIN IV 500 MG in NA CHLORIDE 0.9% 250 ML IVPB SCH (08:19)
[2022-06-24] MEDS: ENOXAPARIN 30 MG/0.3 ML SQ SCH (09:00)
--- NOTE | 2022-06-24 17:26 | P.PN ---
Subjective Date of Service: 06/24/22 Chief Complaint: Sepsis, pyelonephritis No acute events overnight. She states her pain has improved somewhat compared to yesterday. She denies any shortness of breath or cough. 2/4 blood culture gram- stains have returned positive for gram-negative rods. Review of Systems 10-point ROS is otherwise unremarkable Genitourinary: Dysuria, Frequency, Urgency Musculoskeletal: Back Pain (left flank) Physical Examination - Vital Signs Temperature: 98.7 F Blood Pressure: 150/67 Pulse: 93 Respirations: 16 Pulse Ox (%): 93 - Studies Microbiology Data (last 24 hrs): 06/22/22 19:44 Blood - Blood Blood Culture Gram Stain - Final 06/22/22 19:44 Blood - Blood Gram Stain - Final 06/22/22 19:30 Blood - Blood Blood Culture Gram Stain - Final Assessment And Plan - Plan - Physical Exam General: Alert, In no apparent distress, Oriented x3 HEENT: Atraumatic, Mucous membr. moist/pink, Sclerae nonicteric Neck: JVD not distended Respiratory: Clear to auscultation bilaterally, Normal air movement Cardiovascular: No edema, Regular rate/rhythm, Normal S1 S2, No murmurs Gastrointestinal: Soft and benign, Non-distended, No tenderness, No rebound, No guarding Musculoskeletal: No clubbing Integumentary: No rashes Neurological: Normal speech, Normal affect # Sepsis likely secondary to Acute Left Pyelonephritis with Gram-Negative Bacteremia and Questionable Left Lower Lobe Pneumonia She met sepsis criteria based on HR > 90 bpm and WBC > 12,000, and the suspected source is urinary +/- pneumonia. - Chest x-ray = "mild patchy opacity in the left base probably represents developing pneumonia. The lungs are otherwise clear. The heart is normal in size. No displaced fractures." - CT head = "no acute intracranial abnormality." - CT abdomen = "No urinary tract stones or obstructive uropathy. Mild left perinephric inflammatory changes could indicate infection." - Consulted Infectious Diseases - recommendations appreciated - Sepsis order set was initiated - Initial Lactate was 1.7 - Blood cultures drawn before antibiotics were given - 2/4 gram-stains positive for gram-negative rods - Broad spectrum antibiotics started: Ceftriaxone + Azithromycin - In regards to fluids: - 30 mL/kg of IV fluids was administered # KDIGO Stage I Acute Kidney Injury - Creatinine = 1.45 -> 1.23 -> 1.06 (creatinine was 0.95 on 01/31/2022) - Urinalysis = 1+ glucose, 2+ blood, 1+ leukocyte esterase, 510 RBC, > 50 WBCs, 3+ protein - Gentle IV hydration with Lactated Ringers' @ 75 mL/hr - Monitor creatinine and urine output - If worsening, obtain renal ultrasound - Renally dose medications # Hyperglycemia in Type II Diabetes Mellitus - Hgb A1c = 8.1 % - Continue home insulin glargine + correction scale insulin - Hold home sitagliptin/metformin while hospitalized # Hypertension - Hold home amlodipine, lisinopril, metoprolol due to concern for sepsis # Dyslipidemia - Resume home meds once verified # Microscopic Hematuria - Likely due to pyelonephritis, but follow-up with PCP for further evaluation post-discharge Jordan Marquez M.D.
[2022-06-24] MEDS: INSULIN GLARGINE 100 UNIT/ML SQ SCH (20:59)
[2022-06-25 04:32] LABS: Absolute Lymphocytes (CBC) 1.7 K/uL (0.7-4.9); Hematocrit 30.5 % (36.0-45.0); Lymphocytes % 20.4 % (15.3-44.8); MCV 89.5 fL (80-100); MPV 9.2 fL (7.6-11.3); RBC Red Blood Cell Count 3.41 M/uL (3.86-4.86)
[2022-06-25 04:52] LABS: Potassium 3.2 mmol/L (3.5-5.1)
[2022-06-25] MEDS: INSULIN -REGULAR HUMAN 50 UNIT/0.5 ML ML SQ SCH ×4 (07:30→20:56)
[2022-06-25] MEDS: ENOXAPARIN 30 MG/0.3 ML SQ SCH (07:56)
[2022-06-25] MEDS: AZITHROMYCIN IV 500 MG in NA CHLORIDE 0.9% 250 ML IVPB SCH (07:56)
[2022-06-25] MEDS: Meropenem 1,000 MG in NA CHLORIDE 0.9% 100 ML IV SCH ×2 (08:54→20:56)
--- NOTE | 2022-06-25 18:06 | P.PN ---
Subjective Date of Service: 06/25/22 Chief Complaint: Sepsis, pyelonephritis No acute events overnight. She states her pain has nearly subsided. Her urine culture and blood cultures have returned positive for ESBL. She will require a PICC line and Home Health to complete her IV antibiotic course. She endorses no concerns at this time. Review of Systems 10-point ROS is otherwise unremarkable Physical Examination - Vital Signs Temperature: 98.4 F Blood Pressure: 150/78 Pulse: 86 Respirations: 16 Pulse Ox (%): 95 - Studies Microbiology Data (last 24 hrs): 06/22/22 19:47 Clean Catch Urine [facility] Count - Final >100,000 CFU/ML. 06/22/22 19:47 Clean Catch Urine - Final Escherichia Coli Esbl 06/22/22 19:44 Blood - Blood Aerobic Blood Culture - Final Escherichia Coli Esbl 06/22/22 19:44 Blood - Blood Blood Culture Gram Stain - Final 06/22/22 19:44 Blood - Blood Anaerobic Blood Culture - Final Escherichia Coli Esbl 06/22/22 19:44 Blood - Blood Gram Stain - Final Assessment And Plan - Plan - Physical Exam General: Alert, In no apparent distress, Oriented x3 HEENT: Atraumatic, Mucous membr. moist/pink, Sclerae nonicteric Neck: JVD not distended Respiratory: Clear to auscultation bilaterally, Normal air movement Cardiovascular: No edema, Regular rate/rhythm, Normal S1 S2, No murmurs Gastrointestinal: Soft, Non-distended, No tenderness, No rebound, No guarding Musculoskeletal: No clubbing Integumentary: No rashes Neurological: Normal speech, Normal affect # Sepsis likely secondary to Acute Left Pyelonephritis with ESBL Escherichia Coli Bacteremia and Questionable Left Lower Lobe Pneumonia She met sepsis criteria based on HR > 90 bpm and WBC > 12,000, and the suspected source is urinary +/- pneumonia. - Chest x-ray = "mild patchy opacity in the left base probably represents developing pneumonia. The lungs are otherwise clear. The heart is normal in size. No displaced fractures." - CT head = "no acute intracranial abnormality." - CT abdomen = "No urinary tract stones or obstructive uropathy. Mild left pe rinephric inflammatory changes could indicate infection." - Consulted Infectious Diseases - recommendations appreciated - Sepsis order set was initiated - Initial Lactate was 1.7 - Blood cultures drawn before antibiotics were given - 2/4 positive for ESBL E. Coli - Broad spectrum antibiotics started: Ceftriaxone + Azithromycin -> Meropenem + Azithromycin per ID - In regards to fluids: - 30 mL/kg of IV fluids was administered # KDIGO Stage I Acute Kidney Injury - Creatinine = 1.45 -> 1.23 -> 1.06 (creatinine was 0.95 on 01/31/2022) - Urinalysis = 1+ glucose, 2+ blood, 1+ leukocyte esterase, 510 RBC, > 50 WBCs, 3+ protein - Gentle IV hydration with Lactated Ringers' @ 75 mL/hr - Monitor creatinine and urine output - If worsening, obtain renal ultrasound - Renally dose medications # Hyperglycemia in Type II Diabetes Mellitus - Hgb A1c = 8.1 % - Continue home insulin glargine + correction scale insulin - Hold home sitagliptin/metformin while hospitalized # Hypertension - Hold home amlodipine, lisinopril, metoprolol due to concern for sepsis # Dyslipidemia - Resume home meds once verified # Microscopic Hematuria - Likely due to pyelonephritis, but follow-up with PCP for further evaluation post-discharge Jordan Marquez M.D.
[2022-06-25] MEDS: INSULIN GLARGINE 100 UNIT/ML SQ SCH (20:57)
[2022-06-26 04:00] LABS: Potassium 3.7 mmol/L (3.5-5.1)
[2022-06-26] MEDS: INSULIN -REGULAR HUMAN 50 UNIT/0.5 ML ML SQ SCH ×4 (07:30→21:31)
[2022-06-26] MEDS: Meropenem 1,000 MG in NA CHLORIDE 0.9% 100 ML IV SCH ×2 (09:06→21:33)
[2022-06-26] MEDS: ENOXAPARIN 30 MG/0.3 ML SQ SCH (09:07)
[2022-06-26] MEDS: AZITHROMYCIN IV 500 MG in NA CHLORIDE 0.9% 250 ML IVPB SCH (09:07)
--- NOTE | 2022-06-26 10:25 | P.PN ---
Subjective Date of Service: 06/27/22 Chief Complaint: Sepsis, pyelonephritis Patient lying in bed denied having any chest pain, SOB, nausea, vomiting, diarrhea, or constipation. Physical Examination - Vital Signs Temperature: 97.8 F Blood Pressure: 143/74 Pulse: 87 Respirations: 14 Pulse Ox (%): 94 - Physical Exam General: Alert, In no apparent distress, Oriented x3 Respiratory: Clear to auscultation bilaterally Cardiovascular: No edema, Normal S1 S2 Gastrointestinal: Normal bowel sounds Musculoskeletal: No swelling, No tenderness Integumentary: No rashes, No breakdown Neurological: Normal speech, Normal tone, Normal affect - Studies Acetaminophen (Acetaminophen 500 Mg Tab) 500 mg PO Q4HP PRN PRN Reason: TEMP > 100' F Last Admin: 06/24/22 00:51 Dose: 500 mg Enoxaparin Sodium (Enoxaparin 30 Mg/0.3 Ml) 30 mg SQ DAILY [facility] Last Admin: 06/26/22 09:07 Dose: 30 mg Azithromycin 500 mg/ Sodium (Chloride) 250 mls @ 250 mls/hr IVPB DAILY [facility]; Protocol Last Admin: 06/26/22 09:07 Dose: 250 mls Meropenem 1,000 mg/ Sodium (Chloride) 100 mls @ 200 mls/hr IV Q12HR [facility] Last Admin: 06/26/22 09:06 Dose: 100 mls Insulin Glargine (Insulin Glargine 100 Unit/Ml) 30 unit SQ BEDTIME [facility] Last Admin: 06/25/22 20:57 Dose: 30 unit Insulin Human Regular (Insulin -Regular Human 50 Unit/0.5 Ml Ml) 0 unit SQ ACHS [facility]; Protocol Last Admin: 06/26/22 07:30 Dose: Not Given Ondansetron HCl (Ondansetron 4 Mg/2 Ml Vial) 4 mg IV Q6HP PRN PRN Reason: NAUSEA / VOMITING Last Admin: 06/24/22 08:18 Dose: 4 mg Sodium Chloride (Flush Normal Saline 10 Ml) 10 ml IV BID [facility] Last Admin: 06/26/22 09:07 Dose: 10 ml Microbiology Data (last 24 hrs): 06/22/22 19:47 Clean Catch Urine [place] Count - Final >100,000 CFU/ML. 06/22/22 19:47 Clean Catch Urine - Final Escherichia Coli Esbl 06/22/22 19:44 Blood - Blood Aerobic Blood Culture - Final Escherichia Coli Esbl 06/22/22 19:44 Blood - Blood Blood Culture Gram Stain - Final 06/22/22 19:44 Blood - Blood Anaerobic Blood Culture - Final Escherichia Coli Esbl 06/22/22 19:44 Blood - Blood Gram Stain - Final Assessment And Plan - Current Problems (Diagnosis) (1) Pyelonephritis of left kidney Current Visit: Yes Status: Acute Plan: Cultures: 06/22 UC: ESBL E. Coli 06/22 BC: ESBL E. Coli bacteremia Antibiotics: Current on IV Zithromax (06/24 to ) and Meropenem (06/23 to) Recommendation: Stop Zithromax and Continue Meropenem for total of 14 days duration for pyelonephritis. (2) Bacteremia Current Visit: Yes Status: Acute Plan: Secondary to UTI: Cultures: 06/22 UC: ESBL E. Coli 06/22 BC: ESBL E. Coli bacteremia Antibiotics: Current on IV Zithromax (06/24 to ) and Meropenem (06/23 to) Recommendation: Stop Zithromax and Continue Meropenem for total of 14 days duration for bacteremia (3) Urinary tract infection Current Visit: No Status: Acute Plan: Treatment is same as bacteremia and pyelonephritis Qualifiers: Urinary tract infection type: site unspecified Hematuria presence: without hematuria Qualified Code(s): N39.0 - Urinary tract infection, site not specified - Plan Left-sided pyelonephritis Bacteremia Urinary tract infection DM HTN Anemia of chronic disease Moderate protein-calorie malnourishment ID will monitor the patient closely for signs of infection with fever and WBC trends Case has been discussed with Dr. Higuera N Physician Review: Patient Assessed, Agree with Above Assessment and Plan
--- NOTE | 2022-06-26 12:45 | RAD REPORT ---
EXAM DESCRIPTION: RAD - Chest Single View - 06/26/2022 12:13 pm CLINICAL HISTORY: Picc line placement COMPARISON: Chest Single View dated 06/22/2022; Chest Single View dated 09/04/2021; Chest Single View d ated 08/03/2017 FINDINGS: Portable chest was obtained following placement of a right upper extremity PICC line. The catheter tip projects over the right atrium. Recommend 4-5 cm of retraction for optimum placement.
[2022-06-26] MEDS: AMLODIPINE 10 MG TAB PO SCH (18:50)
[2022-06-26] MEDS: METOPROLOL TAR 25 MG TAB PO SCH (18:50)
[2022-06-26] MEDS: INSULIN GLARGINE 100 UNIT/ML SQ SCH (21:30)
[2022-06-27] MEDS: METOPROLOL TAR 25 MG TAB PO SCH ×2 (05:29→16:49)
[2022-06-27] MEDS: INSULIN -REGULAR HUMAN 50 UNIT/0.5 ML ML SQ SCH ×4 (07:30→20:20)
[2022-06-27] MEDS: AMLODIPINE 10 MG TAB PO SCH (08:54)
[2022-06-27] MEDS: ENOXAPARIN 30 MG/0.3 ML SQ SCH (08:54)
[2022-06-27] MEDS: Meropenem 1,000 MG in NA CHLORIDE 0.9% 100 ML IV SCH ×2 (08:55→18:26)
--- NOTE | 2022-06-27 10:46 | P.PN ---
Subjective Date of Service: 06/27/22 Chief Complaint: Sepsis, pyelonephritis Patient sitting in bed having lunch with no major event upon examination Physical Examination - Vital Signs Temperature: 97.8 F Blood Pressure: 143/74 Pulse: 87 Respirations: 14 Pulse Ox (%): 94 - Physical Exam General: Alert, In no apparent distress, Oriented x3 Respiratory: Clear to auscultation bilaterally Cardiovascular: No edema, Normal S1 S2 Gastrointestinal: Normal bowel sounds Musculoskeletal: No swelling, No tenderness Integumentary: No rashes, No breakdown Neurological: Normal speech, Normal tone, Normal affect - Studies Acetaminophen (Acetaminophen 500 Mg Tab) 500 mg PO Q4HP PRN PRN Reason: TEMP > 100' F Last Admin: 06/24/22 00:51 Dose: 500 mg Amlodipine Besylate (Amlodipine 10 Mg Tab) 10 mg PO DAILY [facility] Last Admin: 06/27/22 08:54 Dose: 10 mg Enoxaparin Sodium (Enoxaparin 30 Mg/0.3 Ml) 30 mg SQ DAILY [facility] Last Admin: 06/27/22 08:54 Dose: 30 mg Meropenem 1,000 mg/ Sodium (Chloride) 100 mls @ 200 mls/hr IV Q12HR [facility] Last Admin: 06/27/22 08:55 Dose: 100 mls Insulin Glargine (Insulin Glargine 100 Unit/Ml) 30 unit SQ BEDTIME [facility] Last Admin: 06/26/22 21:30 Dose: 30 unit Insulin Human Regular (Insulin -Regular Human 50 Unit/0.5 Ml Ml) 0 unit SQ ACHS [facility]; Protocol Last Admin: 06/27/22 07:30 Dose: Not Given Metoprolol Tartrate (Metoprolol Tar 25 Mg Tab) 50 mg PO BID 6AM 6PM [facility] Last Admin: 06/27/22 05:29 Dose: 50 mg Ondansetron HCl (Ondansetron 4 Mg/2 Ml Vial) 4 mg IV Q6HP PRN PRN Reason: NAUSEA / VOMITING Last Admin: 06/24/22 08:18 Dose: 4 mg Sodium Chloride (Flush Normal Saline 10 Ml) 10 ml IV BID [facility] Last Admin: 06/27/22 08:55 Dose: 10 ml Microbiology Data (last 24 hrs): Microbiology 06/22/22 19:47 Clean Catch Urine [place] Count - Final >100,000 CFU/ML. 06/22/22 19:47 Clean Catch Urine - Final Escherichia Coli Esbl 06/22/22 19:44 Blood - Blood Aerobic Blood Culture - Final Escherichia Coli Esbl 06/22/22 19:44 Blood - Blood Blood Culture Gram Stain - Final 06/22/22 19:44 Blood - Blood Anaerobic Blood Culture - Final Escherichia Coli Esbl 06/22/22 19:44 Blood - Blood Gram Stain - Final 06/22/22 19:30 Blood - Blood Aerobic Blood Culture - Preliminary No growth in 24 hours. 06/22/22 19:30 Blood - Blood Blood Culture Gram Stain - Final 06/22/22 19:30 Blood - Blood Anaerobic Blood Culture - Preliminary No growth in 24 hours. Assessment And Plan - Current Problems (Diagnosis) (1) Pyelonephritis of left kidney Current Visit: Yes Status: Acute Plan: Cultures: 06/22 UC: ESBL E. Coli 06/22 BC: ESBL E. Coli bacteremia Antibiotics: Had IV Zithromax (06/24 to 06/26 ) and Current on IV Meropenem (06/23 to) Recommendation: Continue Meropenem for total of 14 days duration for pyelonephritis. (2) Bacteremia Current Visit: Yes Status: Acute Plan: Secondary to UTI: Cultures: 06/22 UC: ESBL E. Coli 06/22 BC: ESBL E. Coli bacteremia Antibiotics: Had IV Zithromax (06/24 to 06/26 ) and Current on IV Meropenem (06/23 to) Recommendation: Continue Meropenem for total of 14 days duration for bacteremia (3) Urinary tract infection Current Visit: No Status: Acute Plan: Treatment is same as bacteremia and pyelonephritis Qualifiers: Urinary tract infection type: site unspecified Hematuria presence: without hematuria Qualified Code(s): N39.0 - Urinary tract infection, site not specified - Plan Left-sided pyelonephritis Bacteremia Urinary tract infection DM HTN Anemia of chronic disease Moderate protein-calorie malnourishment ID will monitor the patient closely for signs of infection with fever and WBC trends Case has been discussed with Dr. Higuera, N Physician Review: Patient Assessed, Agree with Above Assessment and Plan
[2022-06-27] MEDS: INSULIN GLARGINE 100 UNIT/ML SQ SCH (20:19)
[2022-06-27 20:51] VITALS: BP 147/74; TEMP 98.4
[2022-06-28 00:42] VITALS: O2SAT 97
[2022-06-28] MEDS ORDERED: ENOXAPARIN 40 MG/0.4 ML SQ SCH (09:00)
== END 2022-06-27 20:30 | disposition home or self-care (01) | DRG 871 ==
LOC: ER 18:51 → ERHOLD 21:28 → 4TH 22:35
PROVIDERS: ADMIT Internal Medicine; ATTEND Hospitalist
PROC: 02H633Z Insertion of Infusion Device into Right Atrium, Percutaneous Approach (ICD-10-PCS; principal; 2022-06-26)
DX: A41.51 Sepsis due to Escherichia coli [E. coli] (principal); J18.9 Pneumonia, unspecified organism; N17.9 Acute kidney failure, unspecified; N10 Acute pyelonephritis; E44.0 Moderate protein-calorie malnutrition; Z16.12 Extended spectrum beta lactamase (ESBL) resistance; E78.5 Hyperlipidemia, unspecified; E86.0 Dehydration; E11.65 Type 2 diabetes mellitus with hyperglycemia; D63.8 Anemia in other chronic diseases classified elsewhere; I10 Essential (primary) hypertension; R31.29 Other microscopic hematuria; Z79.4 Long term (current) use of insulin; Z79.82 Long term (current) use of aspirin; Z68.29 Body mass index [BMI] 29.0-29.9, adult; Z79.899 Other long term (current) drug therapy; Z90.710 Acquired absence of both cervix and uterus; Z20.822 Contact with and (suspected) exposure to COVID-19
CPT/HCPCS: 0240U; 36415; 36569; 70450; 71045; 74176; 76377; 80048; 80076; 81003; 81015; 82947; 83036; 83605; 83690; 83735; 83880; 84484; 85025; 85610; 87040; 87077; 87086; 87088; 87186; 87205; 93005; 96361; 96372; 96374; 96375; 99284; J0456; J0696; J1650; J1815; J2185; J2405; J7030; J7040; J7050; J7120

== ENCOUNTER 2022-07-17 17:56 | Emergency (ER) | payer OTHER ==
--- OUTSIDE RECORDS SUMMARY | 2022-07-17 18:35 | XMS REPORT | Continuity of Care Document ---
:1950 Author Organization [facility] t Address [address] [place] [address] Care Team Providers Name Role Phone Faye SINGH, [facility] Primary Care Physician [phone] Kari Groves Attending Clinician Unavailable Leslie Hinds Attending Clinician LESLIE MARTINEZ Attending Clinician Unavailable Doctor Unassigned, [place] Attending Clinician Unavailable Kari Groves Admitting Clinician Unavailable Payers Payer Name Policy Type Policy Number Effective Date Expiration Date S ource Problems Condition Condition Condition Status Onset Resolution Last Treating Co mments Source Name Details Category Date Date Treatment Clinician Date Chronic Chronic Disease Active Univers pain of pain of 7-31 [place]y [place] [facility] Sjogren's Sjogren's Disease Active Uni vers syndrome: syndrome: 7-11 ity of +SSA +SSA 00:00: [address] Proteinuri Proteinuri Disease Active U nivers a a 6-13 ity of 00:00: [address] ESR raised ESR raised Disease Active U nivers 6-06 ity of 00:00: [address] 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 00:00: [address] Immunizati Immunizati Disease Active 2018-0 U nivers on on 09-05 it[place] of counseling [place] [facility] Rotator Rotator Disease Active Univers cuff tear cuff tear 4-04 ity of arthropath arthropath [place] of right y of right 00 Me dical shoulder shoulder Branch Dry eyes Dry eyes Disease Active Unive rs 4-04 ity of 00:00: [place] [address] Medical Branch Pain in Pain in Disease Active Univers both hands both hands 04 it y of 00:00: [place] 00 [facility] Allergies, Adverse Reactions, Alerts Allergy Allergy Status Severity Reaction(s) Onset Inactive Treating Comm ents Source Name Type Date Date Clinician No Known DA Active U 2013-06 [facility] Allergie 18 [facility] e [facility] NO KNOWN Drug Active Univers ALLERGIE Class ity of S [facility] Social History Social Habit Start Date Stop Date Quantity Comments Source Tobacco use and 2017-09-05 2017-09-05 Never used Universit y of exposure 00:00:00 00:00:00 [facility] Alcohol intake 2017-09-05 2017-09-05 Current University of 00:00:00 00:00:00 non-drinker of [facility] alcohol Branch (finding) Sex Ass[birth year] At [birth year] Universit y of 00:00:00 00:00:00 [facility] Smoking Status Start Date Stop Date Source Never smoker [facility] Medications Ordered Filled Start Stop Current [...] 10 TABLET BY 7-05 MOUTH DAILY 00:00: JLUIET JAGDISH 00 TABLETA JAGDISH VECE AL PITO [...] aspirin 81 2020-0 No 1mg mg 8-07 tablet,teerssa 00:00: yed release 00 amlodipine 2020-0 No [...] ity of mg tablet 00:00: mouth. [place] 00 [facility] Branch ciprofloxac 2018-0 Yes 500mg Take 500 U nivers in HCl 500 3-19 mg by ity of mg tablet 00:00: mouth. [place] 00 Medical Branch ciprofloxac 2018-0 Yes 500mg Take 500 U nivers in HCl 500 3-19 mg by ity of mg tablet 00:00: mouth. [place] 00 Medical Branch ciprofloxac 2018-0 Yes 500mg Take 500 U nivers in HCl 500 3-19 mg by ity of mg tablet 00:00: mouth. [place] 00 Medical Branch ciprofloxac 2018-0 No 1mg [...] by mouth. ity of tablet 00:00: [place] 00 Medical Branch nitrofurant 2017-0 Yes 100mg Take 100 U nivers oin 100 mg 3-04 mg by ity of capsule 00:00: mouth [place] 00 daily. Medical Branch atorvastati 2017-0 Yes 40mg Take 40 mg Univers n 20 mg 3-04 by mouth. ity of tablet 00:00: [place] 00 Medical Branch nitrofurant 2017-0 Yes 100mg Take 100 U nivers oin 100 mg 3-04 mg by ity of capsule 00:00: mouth [place] 00 daily. Medical Branch atorvastati 2017-0 Yes 40mg Take 40 mg Univers n 20 mg 3-04 by mouth. ity of tablet 00:00: [place] [facility] nitrofurant 2017-0 Yes 100mg Take [...] 00:00: [place] " [place] 00 Medical Branch amLODIPine Yes [...] by mouth ity of tablet 00:00: daily. [place] [address] Medical Branch alendronate Yes 10mg Take 10 mg Univers 10 mg 2-13 by mouth ity of tablet 00:00: daily. [address] alendronate 2018-0 Yes 10mg Take 10 mg Univers 10 mg 2-13 by mouth ity of tablet 00:00: daily. [address] alendronate 2018-0 Yes 10mg Take 10 mg Univers 10 mg 2-13 by mouth ity of tablet 00:00: daily. [address] alendronate 2018-0 No 1mg 10 mg [...] aspirin 81 2016- No 1mg mg 1-28 tablet,etressa 00:00: yed release 00 glipizide 2017-1 No [...] / Time Performed Performing Clinician Galen preston [id number] 2022-04-27 00:00:00 [facility] [id number] 2022-04-27 00:00:00 [facility] [id number] 2022-04-27 00:00:00 [facility] XR ANKLE 3+ VW LEFT 2020-10-14 18:55:23 Leslie [facility] XR HIPS 3 VW LEFT 2020-10-14 18:55:12 Leslie Martinez [facility] XR KNEE 3 VW LEFT 2020-10-14 18:54:59 Leslie Martinez [facility] ASSIGNMENT OF BENEFITS 2020-10-14 18:28:36 Doctor Unassigned, No [facility] Ekg 2019-07-08 00:00:00 Plan of Care Planned Activity Planned Date Details Comments Source Goal Plan of Care Note [code = 63778-8] Goal Plan of Care Note [code = 93184-5] Goal Plan of Care Note [code = 76211-9] Goal Plan of Care Note [code = 67581-4] Goal Plan of Care Note [code = 77788-8] Goal Plan of Care Note [code = 98326-1] Goal Plan of Care Note [code = 35883-0] Goal Plan of Care Note [code = 21442-2] Goal Plan of Care Note [code = 30067-3] Goal Plan of Care Note [code = 50802-1] Goal Plan of Care Note [code = 84515-0] Goal Plan of Care Note [code = 58641-2] Goal Plan of Care Note [code = 67175-5] Goal Plan of Care Note [code = 03224-1] Goal Plan of Care Note [code = 57113-0] Goal Plan of Care Note [code = 42004-4] Goal Plan of Care Note [code = 64932-0] Goal Plan of Care Note [code = 31140-8] Goal Plan of Care Note [code = 99249-1] Goal Plan of Care Note [code = 14367-1] Goal Plan of Care Note [code = 38401-0] Goal Plan of Care Note [code = 65203-4] Goal Plan of Care Note [code = 44520-2] Goal Plan of Care Note [code = 15664-0] Goal Plan of Care Note [code = 52503-0] Goal Plan of Care Note [code = 81617-7] Goal Plan of Care Note [code = 15495-6] Goal Plan of Care Note [code = 32067-5] Goal Plan of Care Note [code = 11499-5] Goal Plan of Care Note [code = 83818-9] Goal Plan of Care Note [code = 43975-7] Goal Plan of Care Note [code = 08019-9] Goal Plan of Care Note [code = 14000-1] Goal Plan of Care Note [code = 02677-0] Goal Plan of Care Note [code = 26169-0] Goal Plan of Care Note [code = 95571-9] Goal Plan of Care Note [code = 84210-2] Goal Plan of Care Note [code = 62004-1] Goal Plan of Care Note [code = 15988-3] Goal Plan of Care Note [code = 00391-8] Goal Plan of Care Note [code = 54459-6] Goal Plan of Care Note [code = 52015-4] Goal Plan of Care Note [code = 96057-2] Goal Plan of Care Note [code = 76493-1] Goal Plan of Care Note [code = 13675-7] Goal Plan of Care Note [code = 77369-7] Goal Plan of Care Note [code = 14902-9] Goal Plan of Care Note [code = 31477-2] Goal Plan of Care Note [code = 54187-6] Goal Plan of Care Note [code = 09088-0] Goal Plan of Care Note [code = 41987-0] Goal Plan of Care Note [code = 49607-8] Goal Plan of Care Note [code = 28203-1] Goal Plan of Care Note [code = 39866-5] Goal Plan of Care Note [code = 30624-4] Goal Plan of Care Note [code = 62630-5] Goal Plan of Care Note [code = 37368-9] Goal Plan of Care Note [code = 51637-5] Goal Plan of Care Note [code = 42678-5] Goal Plan of Care Note [code = 23713-7] Goal Plan of Care Note [code = 41883-9] Goal Plan of Care Note [code = 07908-2] Goal Plan of Care Note [code = 68489-9] Goal Plan of Care Note [code = 75952-4] Goal Plan of Care Note [code = 31372-9] Goal Plan of Care Note [code = 21448-3] Goal Plan of Care Note [code = 30066-5] Goal Plan of Care Note [code = 76816-5] Goal Plan of Care Note [code = 21406-2] Goal Plan of Care Note [code = 52979-8] Goal Plan of Care Note [code = 81957-5] Goal Plan of Care Note [code = 21792-8] Goal Plan of Care Note [code = 31207-0] Goal Plan of Care Note [code = 15377-2] Goal Plan of Care Note [code = 54785-7] Goal Plan of Care Note [code = 06327-3] Goal Plan of Care Note [code = 49267-7] Goal Plan of Care Note [code = 56969-9] Goal Plan of Care Note [code = 55664-0] Goal Plan of Care Note [code = 04376-3] Goal Plan of Care Note [code = 32445-2] Goal Plan of Care Note [code = 61140-2] Goal Plan of Care Note [code = 59443-2] Goal Plan of Care Note [code = 79909-9] Goal Plan of Care Note [code = 34442-5] Goal Plan of Care Note [code = 71622-2] Goal Plan of Care Note [code = 04489-4] Goal Plan of Care Note [code = 22740-1] Goal Plan of Care Note [code = 03840-9] Goal Plan of Care Note [code = 66731-7] Goal Plan of Care Note [code = 46264-4] Goal Plan of Care Note [code = 55881-8] Goal Plan of Care Note [code = 87153-9] Goal Plan of Care Note [code = 35821-4] Goal Plan of Care Note [code = 10768-5] Goal Plan of Care Note [code = 15197-9] Goal Plan of Care Note [code = 69138-3] Goal Plan of Care Note [code = 63302-6] Goal Plan of Care Note [code = 47843-6] Goal Plan of Care Note [code = 01501-5] Goal Plan of Care Note [code = 68085-0] Goal Plan of Care Note [code = 19114-7] Goal Plan of Care Note [code = 14535-1] Goal Plan of Care Note [code = 47395-8] Goal Plan of Care Note [code = 76827-6] Goal Plan of Care Note [code = 11072-5] Goal Plan of Care Note [code = 85567-4] Goal Plan of Care Note [code = 02547-0] Goal Plan of Care Note [code = 47149-1] Goal Plan of Care Note [code = 03177-8] Goal Plan of Care Note [code = 63044-2] Goal Plan of Care Note [code = 50051-2] Goal Plan of Care Note [code = 98613-9] Goal Plan of Care Note [code = 92219-0] Goal Plan of Care Note [code = 52360-8] Goal Plan of Care Note [code = 44205-0] Goal Plan of Care Note [code = 49149-7] Goal Plan of Care Note [code = 68426-4] Goal Plan of Care Note [code = 59045-8] Goal Plan of Care Note [code = 01380-3] Goal Plan of Care Note [code = 05151-5] Goal Plan of Care Note [code = 86579-0] Goal Plan of Care Note [code = 90535-1] Goal Plan of Care Note [code = 68161-0] Goal Plan of Care Note [code = 02025-7] Goal Plan of Care Note [code = 27074-0] Goal Plan of Care Note [code = 23957-3] Goal Plan of Care Note [code = 82415-8] Goal Plan of Care Note [code = 07121-7] Goal Plan of Care Note [code = 88763-8] Goal Plan of Care Note [code = 24857-8] Goal Plan of Care Note [code = 85770-7] Goal Plan of Care Note [code = 50492-0] Goal Plan of Care Note [code = 97771-5] Goal Plan of Care Note [code = 68325-5] Goal Plan of Care Note [code = 42561-2] Goal Plan of Care Note [code = 27569-4] Goal Plan of Care Note [code = 79610-5] Goal Plan of Care Note [code = 55799-3] Goal Plan of Care Note [code = 50495-2] Goal Plan of Care Note [code = 41197-6] Goal Plan of Care Note [code = 33459-8] Goal Plan of Care Note [code = 23109-7] Goal Plan of Care Note [code = 77945-4] Goal Plan of Care Note [code = 35358-5] Goal Plan of Care Note [code = 31446-0] Goal Plan of Care Note [code = 00685-2] Goal Plan of Care Note [code = 19298-7] Goal Plan of Care Note [code = 54926-2] Goal Plan of Care Note [code = 70663-2] Goal Plan of Care Note [code = 68001-3] Goal Plan of Care Note [code = 72915-0] Goal Plan of Care Note [code = 00711-3] Goal Plan of Care Note [code = 59404-1] Goal Plan of Care Note [code = 64019-0] Goal Plan of Care Note [code = 51818-8] Goal Plan of Care Note [code = 94054-0] Goal Plan of Care Note [code = 02280-6] Goal Plan of Care Note [code = 62984-6] Goal Plan of Care Note [code = 00458-9] Goal Plan of Care Note [code = 10099-6] Goal Plan of Care Note [code = 13909-4] Goal Plan of Care Note [code = 15978-2] Goal Plan of Care Note [code = 04322-7] Goal Plan of Care Note [code = 61895-3] Goal Plan of Care Note [code = 07945-3] Goal Plan of Care Note [code = 68655-8] Goal Plan of Care Note [code = 95165-7] Goal Plan of Care Note [code = 57542-9] Goal Plan of Care Note [code = 81590-3] Goal Plan of Care Note [code = 01495-7] Goal Plan of Care Note [code = 52169-4] Goal Plan of Care Note [code = 72606-9] Goal Plan of Care Note [code = 33082-4] Goal Plan of Care Note [code = 13733-4] Goal Plan of Care Note [code = 15136-0] Goal Plan of Care Note [code = 59313-0] Goal Plan of Care Note [code = 38918-3] Goal Plan of Care Note [code = 83796-5] Goal Plan of Care Note [code = 20773-7] Goal Plan of Care Note [code = 28470-2] Goal Plan of Care Note [code = 61237-8] Goal Plan of Care Note [code = 87329-8] Goal Plan of Care Note [code = 80151-6] Goal Plan of Care Note [code = 61457-8] Goal Plan of Care Note [code = 70777-1] Goal Plan of Care Note [code = 25972-7] Goal Plan of Care Note [code = 89413-1] Goal Plan of Care Note [code = 89630-5] Goal Plan of Care Note [code = 03758-2] Goal Plan of Care Note [code = 94577-0] Goal Plan of Care Note [code = 17479-2] Goal Plan of Care Note [code = 35415-8] Goal Plan of Care Note [code = 23843-1] Goal Plan of Care Note [code = 44327-1] Goal Plan of Care Note [code = 29678-8] Goal Plan of Care Note [code = 69348-4] Goal Plan of Care Note [code = 11381-7] Goal Plan of Care Note [code = 80283-2] Goal Plan of Care Note [code = 36906-4] Goal Plan of Care Note [code = 98814-1] Goal Plan of Care Note [code = 98366-9] Goal Plan of Care Note [code = 86995-6] Goal Plan of Care Note [code = 09596-2] Goal Plan of Care Note [code = 51954-7] Goal Plan of Care Note [code = 86021-4] Goal Plan of Care Note [code = 33096-5] Goal Plan of Care Note [code = 03937-1] Goal Plan of Care Note [code = 39048-6] Goal Plan of Care Note [code = 16142-1] Goal Plan of Care Note [code = 78348-2] Goal Plan of Care Note [code = 37662-5] Goal Plan of Care Note [code = 61375-4] Goal Plan of Care Note [code = 91651-8] Goal Plan of Care Note [code = 18457-8] Goal Plan of Care Note [code = 39211-6] Goal Plan of Care Note [code = 35091-3] Goal Plan of Care Note [code = 99041-9] Goal Plan of Care Note [code = 34237-8] Goal Plan of Care Note [code = 68511-3] Goal Plan of Care Note [code = 40219-7] Goal Plan of Care Note [code = 90768-8] Goal Plan of Care Note [code = 80331-2] Goal Plan of Care Note [code = 02563-2] Goal Plan of Care Note [code = 64885-9] Goal Plan of Care Note [code = 00284-3] Goal Plan of Care Note [code = 33873-3] Goal Plan of Care Note [code = 17717-8] Goal Plan of Care Note [code = 68120-3] Goal Plan of Care Note [code = 68604-1] Goal Plan of Care Note [code = 46098-6] Goal Plan of Care Note [code = 68261-7] Goal Plan of Care Note [code = 48913-4] Goal Plan of Care Note [code = 68217-8] Goal Plan of Care Note [code = 08126-6] Goal Plan of Care Note [code = 58594-3] Goal Plan of Care Note [code = 69739-1] Goal Plan of Care Note [code = 64461-7] Goal Plan of Care Note [code = 71004-5] Goal Plan of Care Note [code = 97860-9] Goal Plan of Care Note [code = 35629-6] Goal Plan of Care Note [code = 12512-4] Goal Plan of Care Note [code = 71259-3] Goal Plan of Care Note [code = 33604-8] Goal Plan of Care Note [code = 33683-4] Goal Plan of Care Note [code = 01344-0] Goal Plan of Care Note [code = 29158-4] Goal Plan of Care Note [code = 62284-6] Goal Plan of Care Note [code = 08667-6] Goal Plan of Care Note [code = 08355-6] Goal Plan of Care Note [code = 17527-9] Goal Plan of Care Note [code = 29252-8] Goal Plan of Care Note [code = 12219-1] Goal Plan of Care Note [code = 95209-9] Goal Plan of Care Note [code = 49493-6] Goal Plan of Care Note [code = 50032-8] Goal Plan of Care Note [code = 78741-2] Goal Plan of Care Note [code = 46279-7] Goal Plan of Care Note [code = 32143-9] Goal Plan of Care Note [code = 32824-0] Goal Plan of Care Note [code = 62702-7] Goal Plan of Care Note [code = 43782-7] Goal Plan of Care Note [code = 64955-6] Goal Plan of Care Note [code = 08656-4] Goal Plan of Care Note [code = 21851-3] Goal Plan of Care Note [code = 83691-8] Goal Plan of Care Note [code = 20377-4] Goal Plan of Care Note [code = 71423-6] Goal Plan of Care Note [code = 86423-8] Goal Plan of Care Note [code = 31353-4] Goal Plan of Care Note [code = 45505-1] Goal Plan of Care Note [code = 63719-9] Goal Plan of Care Note [code = 17778-2] Goal Plan of Care Note [code = 32581-6] Goal Plan of Care Note [code = 65490-2] Goal Plan of Care Note [code = 68791-7] Goal Plan of Care Note [code = 71543-5] Goal Plan of Care Note [code = 82939-7] Goal Plan of Care Note [code = 14237-8] Goal Plan of Care Note [code = 70821-6] Goal Plan of Care Note [code = 76512-0] Goal Plan of Care Note [code = 94597-6] Goal Plan of Care Note [code = 99818-1] Goal Plan of Care Note [code = 63958-7] Goal Plan of Care Note [code = 01500-6] Goal Plan of Care Note [code = 46689-3] Goal Plan of Care Note [code = 67302-0] Goal Plan of Care Note [code = 32614-8] Goal Plan of Care Note [code = 81850-5] Goal Plan of Care Note [code = 78313-9] Goal Plan of Care Note [code = 49530-2] Goal Plan of Care Note [code = 00640-0] Goal Plan of Care Note [code = 12691-7] Goal Plan of Care Note [code = 91573-9] Goal Plan of Care Note [code = 53759-0] Goal Plan of Care Note [code = 47483-6] Goal Plan of Care Note [code = 77748-6] Goal Plan of Care Note [code = 31671-8] Goal Plan of Care Note [code = 42375-1] Goal Plan of Care Note [code = 85824-2] Goal Plan of Care Note [code = 86134-3] Goal Plan of Care Note [code = 83143-2] Goal Plan of Care Note [code = 01924-6] Goal Plan of Care Note [code = 75586-4] Goal Plan of Care Note [code = 82717-2] Goal Plan of Care Note [code = 83936-2] Goal Plan of Care Note [code = 30729-7] Goal Plan of Care Note [code = 13631-1] Goal Plan of Care Note [code = 43690-1] Goal Plan of Care Note [code = 72236-7] Goal Plan of Care Note [code = 69609-0] Goal Plan of Care Note [code = 99271-3] Goal Plan of Care Note [code = 35103-9] Goal Plan of Care Note [code = 67113-3] Goal Plan of Care Note [code = 17388-8] Goal Plan of Care Note [code = 40247-0] Goal Plan of Care Note [code = 20914-6] Goal Plan of Care Note [code = 68128-1] Goal Plan of Care Note [code = 84037-1] Encounters Start End Encounter Admission Attending Care Care Encounter Source Date/Time Date/Time Type Type Clinicians Facility Department ID 2022-07-17 2022-07-17 Outpatient [facility] [id number] Madhu 15:25:27 15:25:27 0213 F Ludin 2022-06-08 2022-06-08 Outpatient SFA SFA [id number] 023 Mahdu 10:19:11 10:19:11 0105 F Ludin 2022-06-08 2022-06-08 Outpatient [id number]- [id number] f9haqd-z 00:00:00 00:00:00 Visit q848-6j77 410-4a53-9 -4kc4-9l9 da6-4e5f2c a1repvh66 bddc28 2022-06-01 2022-06-01 Outpatient SFA SFA 60636-5 022 Madhu 10:42:48 10:42:48 1229 F Ludin 2022-06-01 2022-06-01 Outpatient [id number]- [id number] f5 5t74w0-g 00:00:00 00:00:00 Visit k841-22jv 969-40ed-9 -9022-5aa 022-5aad19 g22j943a5 b466d8 2022-05-25 2022-05-25 Outpatient SFA SFA 30882-3 022 Madhu 13:44:52 13:44:52 1222 F Ludin 2022-05-25 2022-05-25 Outpatient [id number]- [id number] 5n5m95-m 00:00:00 00:00:00 Visit z975-1178 890-4564-b -bbde-d86 bde-l93702 00179x13n 87f52c 2022-05-10 2022-05-10 Outpatient SFA SFA 36516-3 022 Madhu 09:54:09 09:54:09 1207 F Ludin 2022-05-09 2022-05-09 Outpatient SFA SFA 24182-3 022 Madhu 09:38:21 09:38:21 1206 F Ludin 2022-05-09 2022-05-09 Outpatient [id number]- [id number] [id number] hy22v2-y 00:00:00 00:00:00 Visit p143-438g 893-464a-a -q9p6-zj8 4k8-xm5m5k a5e4682s4 2158a2 2022-04-27 2022-04-29 Inpatient EM Dahu, HCABM INTE [id number] [facility] 23:31:00 15:15:00 Kari Lomeli [facility] 2022-03-08 2022-03-08 Outpatient SFA SFA 21208-5 022 Madhu 10:30:25 10:30:25 1005 F Ludin 2022-03-08 2022-03-08 Outpatient [id number]- [id number] c8 17r584-6 00:00:00 00:00:00 Visit 72v1-6fk1 3m2-4yj6-4 -44f6-g7c 3w0-h1a65m 50vny0o1a bf4e6c 2022-02-08 2022-02-08 Outpatient i638ujbr- [id number] e0 39cfed-c 00:00:00 00:00:00 Visit k19x-57r0 47d-41e8-a -f518-0w6 655-5l2160 7870ji60y 7ff23b 2022-01-04 2022-01-04 Outpatient [id number]- [id number] 8d y6m618-9 00:00:00 00:00:00 Visit 3350-3409 388-4690-8 -0cy8-4jd ed5-5ca68b 43d7023an 6810ce 2021-12-06 2021-12-06 Outpatient [id number] 189543-i 00:00:00 00:00:00 Visit fec0-4c02 ec0-4c02-a -s633-266 538-264fda npli8wr90 e1ba61 2020-10-14 2020-10-14 [facility] [id number] Univers 13:34:04 23:59:00 Encounter Leslie Simon 350.1.13.10 ity of [place] 4.2.7.2.686 [facility] [id number] [facility] 807 Branch 2020-10-14 2020-10-14 [facility] 1.2.840.114 [id number] Univers 13:33:50 13:33:50 Encounter Leslie Simon 350.1.13.10 ity [facility] 4.2.7.2.686 [facility] [id number] [facility] 807 Branch 2020-10-14 2020-10-14 [facility] 1.2.840.114 [id number] Univers 13:30:00 13:32:00 Encounter Leslie Simon 350.1.13.10 ity of [place] 4.2.7.2.686 [facility] [id number] [place] [id number] Branch 2020-10-14 2020-10-14 [facility] [id number] Univers 00:00:00 00:00:00 LESLIE itghulam [facility] 2020-10-14 2020-10-14 Orders Doctor ANCELMO 1.2.840.114 [id number] Univers 00:00:00 00:00:00 Only Unassigned, RACHID 350.1.13.[address] [place] [facility] 4.2.7.2.686 [facility] [phone] [place] [address] Branch Results Test Description Test Time Test [...] PLATELET COUNT (test code = 266 K/UL 869-116 8052) ABSOLUTE NEUTROPHILS (test 4.77 K/UL 1.50-7.50 code [...] RBCS (test code 0.00 K/UL 0.00-0.11 = 70497) PROTHROMBIN TIME (PT)2022-05-26 04:26:22 Test Item Value Reference Range Interpretation Comments PROTHROMBIN TIME 13.2 SECONDS 12.5-14.7 (PT) (test code = 1402) INR (test code = 1.0 SEE BELOW CURRENT 21322) RECOMMENDATIONS ARE FOR AN INR OF 2 .0-3.0 FOR ALL PATIENT S ON VITAMIN K ANTAG ONISTS, EXCEPT THOSE WI TH PROSTHETIC HEAR T VALVES, FOR WHO M INR OF 2.5-3.5 IS RECOMMENDED. UN LESS OTHERWISE INDIC ATED, ALL TESTING PER FORMED [facility], [place] [address] [place] [id number] [place] [address] DIRECTOR: Janessa VILLAGRANIA NUMBER [id number] CAP ACCREDITATION N O. [id number] CBC W/AUTO [id number] 00:00:00 Test Item Value Reference Range Interpretation [...] NUCLEATED RBCS (test code = 0.00 K/UL 35662) CBC W/AUTO [id number] 00:00:00 Test Item Value Reference Range Interpretation [...] NUCLEATED RBCS (test code = 0.00 K/UL 03727) CBC W/AUTO [id number] 00:00:00 Test Item Value Reference Range Interpretation [...] NUCLEATED RBCS (test code = 0.00 K/UL 92139) PROTHROMBIN TIME (PT)2022-05-26 00:00:00 Test Item Value Reference Range Interpretation Comments PROTHROMBIN TIME (PT) (test code 13.2 SECONDS = 1402) INR (test code = 44967) 1.0 PROTHROMBIN TIME (PT)2022-05-26 00:00:00 Test Item Value Reference Range Interpretation Comments PROTHROMBIN TIME (PT) (test code 13.2 SECONDS = 1402) INR (test code = 61597) 1.0 CBC W/AUTO [id number] 00:00:00 Test Item Value Reference Range Interpretation [...] NUCLEATED RBCS (test code = 0.00 K/UL 78539) CBC W/AUTO [id number] 00:00:00 Test Item Value Reference Range Interpretation [...] NUCLEATED RBCS (test code = 0.00 K/UL 71090) CBC W/AUTO [id number] 00:00:00 Test Item Value Reference Range Interpretation [...] NUCLEATED RBCS (test code = 0.00 K/UL 46986) PROTHROMBIN TIME (PT)2022-05-26 00:00:00 Test Item Value Reference Range Interpretation Comments PROTHROMBIN TIME (PT) (test code 13.2 SECONDS = 1402) INR (test code = 85240) 1.0 PROTHROMBIN TIME (PT)2022-05-26 00:00:00 Test Item Value Reference Range Interpretation Comments PROTHROMBIN TIME (PT) (test code 13.2 SECONDS = 1402) INR (test code = 10189) 1.0 CBC W/AUTO [id number] 00:00:00 Test Item Value Reference Range Interpretation [...] NUCLEATED RBCS (test code = 0.00 K/UL 84807) CBC W/AUTO [id number] 00:00:00 Test Item Value Reference Range Interpretation [...] NUCLEATED RBCS (test code = 0.00 K/UL 03140) CBC W/AUTO [id number] 00:00:00 Test Item Value Reference Range Interpretation [...] NUCLEATED RBCS (test code = 0.00 K/UL 89213) PROTHROMBIN TIME (PT)2022-05-26 00:00:00 Test Item Value Reference Range Interpretation Comments PROTHROMBIN TIME (PT) (test code 13.2 SECONDS = 1402) INR (test code = 88039) 1.0 PROTHROMBIN TIME (PT)2022-05-26 00:00:00 Test Item Value Reference Range Interpretation Comments PROTHROMBIN TIME (PT) (test code 13.2 SECONDS = 1402) INR (test code = 30583) 1.0 CULTURE, [id number] 00:00:00 Test Item Value Reference Range Interpretation Comments CULTURE, URINE (test SPECIMEN NUMBER: code = 86992) [id number] CULTURE, [id number] 00:00:00 Test Item Value Reference Range Interpretation Comments CULTURE, URINE (test SPECIMEN NUMBER: code = 55180) [id number] CULTURE, [id number] 00:00:00 Test Item Value Reference Range Interpretation Comments CULTURE, URINE (test SPECIMEN NUMBER: code = 10057) [id number] CULTURE, [id number] 00:00:00 Test Item Value Reference Range Interpretation Comments CULTURE, URINE (test SPECIMEN NUMBER: code = 53315) [id number] CULTURE, [id number] 00:00:00 Test Item Value Reference Range Interpretation Comments CULTURE, URINE (test SPECIMEN NUMBER: code = 98503) [id number] CULTURE, [id number] 00:00:00 Test Item Value Reference Range Interpretation Comments CULTURE, URINE (test SPECIMEN NUMBER: code = 15260) [id number] 10:13:00 Test Item Value Reference Range Interpretation Comments GLUBED (test code = 250 mg/dL 74-106 H 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 [facility]2022-11-25 16:11:00 Test Item Value Reference Range Interpretation Comments GLUBED (test code = 199 mg/dL 74-106 H Performe d 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 [facility] [id number] 11:25:00 Test Item Value Reference Range Interpretation Comments GLUBED (test code = 137 mg/dL 74-106 H 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 d 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 [facility] - XR CHEST 1 [id number] 07:47:00 [facility] ([facility])Name: ARMEN LOPEZ : 1950 Sex: F FAX: Kari Groves MD [phone] [place]: [address] St: [facility] FAX: Sophie Torres Name: ARMEN LOPEZ [facility] : 1950 Age/S: 71/F [address] [facility] Unit #: [id number] Loc: V.S16 [place] [address] Phys:Sophie Torres [employer]ER Acct: [id number] Dis Date: Status: ADM IN PHONE #: [phone] Exam Date: 06/28/2021 0601 FAX #: [phone] Reason: TO EVAL LUNGS EXAMS: CPT CODE: [id number] XR CHEST 1 V 47074 EXAM: - XR CHEST 1 V DATE: [...] Groves MD; Sophie Torres NP Technologist: Jt GARRIDO) Trnscrd Date/Time/By: 04/28/2022 (0708) : By: [email or web address] Orig Print D/T: S: 04/28/2022 (2538) PAGE 1 Signed [id number] 07:24:00 Test Item Value Reference Range Interpretation Comments GLUBED (test code = 230 mg/dL 74-106 H 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 7 ESTIMATED AVERAGE 194 MG/DL GLUCOSE (test code = EAG) COMPREHENSIVE METABOLIC [id number] 05:20:00 Test Item Value Reference Range Interpretation [...] recommended for liseth for GFRby the N [facility] Ad[facility].The GFR will [...] (test code = ALKP) change in reagent. [id number] 05:20:00 Test Item Value Reference Range Interpretation Comments PHOSPHORUS (test code = PHOS) 3.7 mg/dL 2.5-4.9 N [id number] 05:20:00 Test Item Value Reference Range Interpretation Comments MAGNESIUM (test code = MAG) 1.7 mg/dL 1.8-2.4 L CBC W/AUTO [id number] 05:10:00 Test Item Value Reference Range Interpretation [...] 0.00 K/mm3 0.0-0.1 N NRBC#) HEPATIC FUNCTION [id number] 23:51:00 Test Item Value Reference Range Interpretation [...] range due ALKP) to change in reagent. [id number] 23:51:00 Test Item Value Reference Range Interpretation Comments LIPASE (test code = LIP) 79 U/L 12.00-57.00 H [id number] 23:51:00 Test Item Value Reference Range Interpretation Comments MAGNESIUM (test code = MAG) 1.8 mg/dL 1.8-2.4 N [id number] 23:51:00 Test Item Value Reference Range Interpretation Comments TROPONIN-HS (test <4.0 pg/mL 0-45 N CAUTION: U nits of the code = TROPI) current test m ethodology (pg/mL)differ f rom the prior test meth odology (ng/mL) by a fa ctorof 1000. BASIC METABOLIC [id number] 23:51:00 Test Item Value Reference Range Interpretation [...] race indifferent and is the recommended for liesth for GFRby the N [facility] [...] 9.0 mg/dL 8.5-10.1 N = CA) PROTHROMBIN [id number] 23:43:00 Test Item Value Reference Range Interpretation [...] (2.5-3.5) IS PATIENT ON ANTICOAGULANTS? NTHROMBOPLASTIN TIME [id number] 23:43:00 Test Item Value Reference Range Interpretation Comments THROMBOPLASTIN TIME PARTIAL 22.4 seconds 23.0-37.0 L (test code = PTT) IS PATIENT ON ANTICOAGULANTS? NCBC W/O [id number] 23:42:00 Test Item Value Reference Range Interpretation [...] N = MPV) - XR CHEST 1 [id number] 23:30:00 [facility])Name: ARMEN LOPEZ : 1950 Sex: F FAX: Usha Ramachandran MD [phone] [place]: [address] St: ADM Name: ARMEN LOPEZ [facility] : 1950 Age/S:71/F [address] [facility] Unit #: [id number] Loc: [place] [address] Phys: Usha Ramachandran MD Acct: [id number] Dis Date: Status: ADM IN PHONE #: [phone] Exam Date: 04/27/2022 2311 FAX #: Reason: CHEST PAIN EXAMS: CPT CODE: [id number] XR CHEST 1 V 70423 Dictation location: H3 Chest x-ray exam, AP frontal projection, one view, 04/27/22 CLINICAL HISTORY: Chest pain Comparison exam: None of the chest available Exam is somewhat limited given shallow degree of inspiration and overlying objects. Given technical factors, heart, lungs, and mediastinal structures are unremarkable. Donot see a definite acute osseous finding. No definite findings for pneumonia or CHF. No abnormal aircollection. IMPRESSION: No acute finding given technical factors at 2330 Reported and signed by: Maryam Vega CC: Usha Ramachandran MD Technologist: Jordan Paiz RT(R) Trnscrd Date/Time/By: 04/27/2022 (2329) : By: [email or web address] Orig Print D/T: S: 04/27/2022 (2334) PAGE 1 Signed ReportCOMPREHENSIVE METABOLIC [id number] 06:08:16 Test Item Value Reference Range Interpretation Comments GLUCOSE (test code = 205 MG/DL 70-99 H 2216) BUN (test code = 23 MG/DL 8-23 2207) CREATININE (test 1.67 MG/DL 0.60-1.30 H code = 221) eGFR (2020 CKD-EPI) 32 ML/MIN/1.73 >60 L (test code = 10712) CALC BUN/CREAT (test 14 RATIO 6-28 code = 2235) SODIUM (test code = 143 MEQ/L 128-353 0572) POTASSIUM (test code 4.2 MEQ/L 3.5-5.4 = 2227) CHLORIDE (test code 107 MEQ/L 95-107 = [...] PHOSPHATASE 57 U/L 40-142 (test code = 2204) AST (test code = 38 U/L 9-40 2217) ALT (test code = 21 U/L 5-40 2218) LIPID [id number] 06:08:16 Test Item Value Reference Range Interpretation [...] MOREINFORMATION , SEE CLIENT ANNOUNCE MENT AT [email or web address] RISK RATIO LDL/HDL 1.49 RATIO <3.22 UNLESS O THERWISE (test code = 2238) INDICATED , ALL TESTING PERFORMED [facility], [facility]. [address] [place] [id number] [place] [address] DIRECTOR: KEN NEWMAN M.D. CLIA NUMBER [id number] CAP ACCREDITATION N O. [id number] HEMOGLOBIN [id number] 04:41:39 Test Item Value Reference Range Interpretation Comments HEMOGLOBIN A1c (test 8.3 % 4.2-5.6 H [employer]IC AN DIABETES code = 63981) ASSOCIATION IDELINES FOR HGB A1C: PREDIABETES/INC REASED [...] LABORATORY C ONSULTATION. CBC W/AUTO DIFF WITH [id number] 03:44:15 Test Item Value Reference Range Interpretation [...] RBCS 0.00 K/UL 0.00-0.11 (test code = 20179) HEMOGLOBIN [id number] 00:00:00 Test Item Value Reference Range Interpretation Comments HEMOGLOBIN A1c (test code = 14632) 8.3 % HEMOGLOBIN [id number] 00:00:00 Test Item Value Reference Range Interpretation Comments HEMOGLOBIN A1c (test code = 38955) 8.3 % HEMOGLOBIN [id number] 00:00:00 Test Item Value Reference Range Interpretation Comments HEMOGLOBIN A1c (test code = 11485) 8.3 % CBC W/AUTO [id number] 00:00:00 Test Item Value Reference Range Interpretation [...] NUCLEATED RBCS (test code = 0.00 K/UL 02160) CBC W/AUTO [id number] 00:00:00 Test Item Value Reference Range Interpretation [...] NUCLEATED RBCS (test code = 0.00 K/UL 41796) CBC W/AUTO [id number] 00:00:00 Test Item Value Reference Range Interpretation [...] NUCLEATED RBCS (test code = 0.00 K/UL 22161) COMPREHENSIVE METABOLIC [id number] 00:00:00 Test Item Value Reference Range Interpretation Comments GLUCOSE (test code = 2217) 205 MG/DL BUN (test code = 2208) 23 MG/DL CREATININE (test code = 2214) 1.67 MG/DL eGFR (2020 CKD-EPI) (test code 32 ML/MIN/1.73 = 05619) CALC BUN/CREAT (test code = 14 RATIO [...] code = 2219) 21 U/L COMPREHENSIVE METABOLIC [id number] 00:00:00 Test Item Value Reference Range Interpretation Comments GLUCOSE (test code = 2217) 205 MG/DL BUN (test code = 2208) 23 MG/DL CREATININE (test code = 2214) 1.67 MG/DL eGFR (2020 CKD-EPI) (test code 32 ML/MIN/1.73 = 91267) CALC BUN/CREAT (test code = 14 RATIO [...] (test code = 2219) 21 U/L LIPID [id number] 00:00:00 Test Item Value Reference Range Interpretation Comments CHOLESTEROL (test code = 2210) 160 MG/DL TRIGLYCERIDES (test code = 2232) 129 MG/DL HDL CHOLESTEROL (test code = 2220) 55 MG/DL CALC LDL CHOL (test code = 2237) 82 MG/DL RISK RATIO LDL/HDL (test code = 1.49 RATIO 2238) LIPID [id number] 00:00:00 Test Item Value Reference Range Interpretation Comments CHOLESTEROL (test code = 2210) 160 MG/DL TRIGLYCERIDES (test code = 2232) 129 MG/DL HDL CHOLESTEROL (test code = 2220) 55 MG/DL CALC LDL CHOL (test code = 2237) 82 MG/DL RISK RATIO LDL/HDL (test code = 1.49 RATIO 2238) HEMOGLOBIN [id number] 00:00:00 Test Item Value Reference Range Interpretation Comments HEMOGLOBIN A1c (test code = 25668) 8.3 % HEMOGLOBIN [id number] 00:00:00 Test Item Value Reference Range Interpretation Comments HEMOGLOBIN A1c (test code = 47979) 8.3 % HEMOGLOBIN [id number] 00:00:00 Test Item Value Reference Range Interpretation Comments HEMOGLOBIN A1c (test code = 61319) 8.3 % CBC W/AUTO [id number] 00:00:00 Test Item Value Reference Range Interpretation [...] NUCLEATED RBCS (test code = 0.00 K/UL 09809) CBC W/AUTO [id number] 00:00:00 Test Item Value Reference Range Interpretation [...] NUCLEATED RBCS (test code = 0.00 K/UL 64527) CBC W/AUTO [id number] 00:00:00 Test Item Value Reference Range Interpretation [...] NUCLEATED RBCS (test code = 0.00 K/UL 23183) COMPREHENSIVE METABOLIC [id number] 00:00:00 Test Item Value Reference Range Interpretation Comments GLUCOSE (test code = 2217) 205 MG/DL BUN (test code = 2208) 23 MG/DL CREATININE (test code = 2214) 1.67 MG/DL eGFR (2020 CKD-EPI) (test code 32 ML/MIN/1.73 = 23262) CALC BUN/CREAT (test code = 14 RATIO [...] code = 2219) 21 U/L COMPREHENSIVE METABOLIC [id number] 00:00:00 Test Item Value Reference Range Interpretation Comments GLUCOSE (test code = 2217) 205 MG/DL BUN (test code = 2208) 23 MG/DL CREATININE (test code = 2214) 1.67 MG/DL eGFR (2020 CKD-EPI) (test code 32 ML/MIN/1.73 = 68408) CALC BUN/CREAT (test code = 14 RATIO [...] (test code = 2219) 21 U/L LIPID [id number] 00:00:00 Test Item Value Reference Range Interpretation Comments CHOLESTEROL (test code = 2210) 160 MG/DL TRIGLYCERIDES (test code = 2232) 129 MG/DL HDL CHOLESTEROL (test code = 2220) 55 MG/DL CALC LDL CHOL (test code = 2237) 82 MG/DL RISK RATIO LDL/HDL (test code = 1.49 RATIO 2238) LIPID [id number] 00:00:00 Test Item Value Reference Range Interpretation Comments CHOLESTEROL (test code = 2210) 160 MG/DL TRIGLYCERIDES (test code = 2232) 129 MG/DL HDL CHOLESTEROL (test code = 2220) 55 MG/DL CALC LDL CHOL (test code = 2237) 82 MG/DL RISK RATIO LDL/HDL (test code = 1.49 RATIO 2238) HEMOGLOBIN [id number] 00:00:00 Test Item Value Reference Range Interpretation Comments HEMOGLOBIN A1c (test code = 71787) 8.3 % HEMOGLOBIN [id number] 00:00:00 Test Item Value Reference Range Interpretation Comments HEMOGLOBIN A1c (test code = 59077) 8.3 % HEMOGLOBIN [id number] 00:00:00 Test Item Value Reference Range Interpretation Comments HEMOGLOBIN A1c (test code = 69138) 8.3 % CBC W/AUTO [id number] 00:00:00 Test Item Value Reference Range Interpretation [...] NUCLEATED RBCS (test code = 0.00 K/UL 23656) CBC W/AUTO [id number] 00:00:00 Test Item Value Reference Range Interpretation [...] NUCLEATED RBCS (test code = 0.00 K/UL 16358) CBC W/AUTO [id number] 00:00:00 Test Item Value Reference Range Interpretation [...] NUCLEATED RBCS (test code = 0.00 K/UL 61451) COMPREHENSIVE METABOLIC [id number] 00:00:00 Test Item Value Reference Range Interpretation Comments GLUCOSE (test code = 2217) 205 MG/DL BUN (test code = 2208) 23 MG/DL CREATININE (test code = 2214) 1.67 MG/DL eGFR (2020 CKD-EPI) (test code 32 ML/MIN/1.73 = 82651) CALC BUN/CREAT (test code = 14 RATIO [...] code = 2219) 21 U/L COMPREHENSIVE METABOLIC [id number] 00:00:00 Test Item Value Reference Range Interpretation Comments GLUCOSE (test code = 2217) 205 MG/DL BUN (test code = 2208) 23 MG/DL CREATININE (test code = 2214) 1.67 MG/DL eGFR (2020 CKD-EPI) (test code 32 ML/MIN/1.73 = 73478) CALC BUN/CREAT (test code = 14 RATIO [...] (test code = 2219) 21 U/L LIPID [id number] 00:00:00 Test Item Value Reference Range Interpretation Comments CHOLESTEROL (test code = 2210) 160 MG/DL TRIGLYCERIDES (test code = 2232) 129 MG/DL HDL CHOLESTEROL (test code = 2220) 55 MG/DL CALC LDL CHOL (test code = 2237) 82 MG/DL RISK RATIO LDL/HDL (test code = 1.49 RATIO 2238) LIPID [id number] 00:00:00 Test Item Value Reference Range Interpretation Comments CHOLESTEROL (test code = 2210) 160 MG/DL TRIGLYCERIDES (test code = 2232) 129 MG/DL HDL CHOLESTEROL (test code = 2220) 55 MG/DL CALC LDL CHOL (test code = 2237) 82 MG/DL RISK RATIO LDL/HDL (test code = 1.49 RATIO 2238) HEMOGLOBIN [id number] 00:00:00 Test Item Value Reference Range Interpretation Comments HEMOGLOBIN A1c (test code = 07044) 8.3 % HEMOGLOBIN [id number] 00:00:00 Test Item Value Reference Range Interpretation Comments HEMOGLOBIN A1c (test code = 05035) 8.3 % HEMOGLOBIN [id number] 00:00:00 Test Item Value Reference Range Interpretation Comments HEMOGLOBIN A1c (test code = 30301) 8.3 % CBC W/AUTO [id number] 00:00:00 Test Item Value Reference Range Interpretation [...] NUCLEATED RBCS (test code = 0.00 K/UL 82668) CBC W/AUTO [id number] 00:00:00 Test Item Value Reference Range Interpretation [...] NUCLEATED RBCS (test code = 0.00 K/UL 34158) CBC W/AUTO [id number] 00:00:00 Test Item Value Reference Range Interpretation [...] NUCLEATED RBCS (test code = 0.00 K/UL 51724) COMPREHENSIVE METABOLIC [id number] 00:00:00 Test Item Value Reference Range Interpretation Comments GLUCOSE (test code = 2217) 205 MG/DL BUN (test code = 2208) 23 MG/DL CREATININE (test code = 2214) 1.67 MG/DL eGFR (2020 CKD-EPI) (test code 32 ML/MIN/1.73 = 41855) CALC BUN/CREAT (test code = 14 RATIO [...] code = 2219) 21 U/L COMPREHENSIVE METABOLIC [id number] 00:00:00 Test Item Value Reference Range Interpretation Comments GLUCOSE (test code = 2217) 205 MG/DL BUN (test code = 2208) 23 MG/DL CREATININE (test code = 2214) 1.67 MG/DL eGFR (2020 CKD-EPI) (test code 32 ML/MIN/1.73 = 61347) CALC BUN/CREAT (test code = 14 RATIO [...] (test code = 2219) 21 U/L LIPID [id number] 00:00:00 Test Item Value Reference Range Interpretation Comments CHOLESTEROL (test code = 2210) 160 MG/DL TRIGLYCERIDES (test code = 2232) 129 MG/DL HDL CHOLESTEROL (test code = 2220) 55 MG/DL CALC LDL CHOL (test code = 2237) 82 MG/DL RISK RATIO LDL/HDL (test code = 1.49 RATIO 2238) LIPID [id number] 00:00:00 Test Item Value Reference Range Interpretation Comments CHOLESTEROL (test code = 2210) 160 MG/DL TRIGLYCERIDES (test code = 2232) 129 MG/DL HDL CHOLESTEROL (test code = 2220) 55 MG/DL CALC LDL CHOL (test code = 2237) 82 MG/DL RISK RATIO LDL/HDL (test code = 1.49 RATIO 2238) HEMOGLOBIN [id number] 00:00:00 Test Item Value Reference Range Interpretation Comments HEMOGLOBIN A1c (test code = 03760) 8.3 % HEMOGLOBIN [id number] 00:00:00 Test Item Value Reference Range Interpretation Comments HEMOGLOBIN A1c (test code = 66781) 8.3 % HEMOGLOBIN [id number] 00:00:00 Test Item Value Reference Range Interpretation Comments HEMOGLOBIN A1c (test code = 89287) 8.3 % CBC W/AUTO [id number] 00:00:00 Test Item Value Reference Range Interpretation [...] NUCLEATED RBCS (test code = 0.00 K/UL 79787) CBC W/AUTO [id number] 00:00:00 Test Item Value Reference Range Interpretation [...] NUCLEATED RBCS (test code = 0.00 K/UL 04342) CBC W/AUTO [id number] 00:00:00 Test Item Value Reference Range Interpretation [...] NUCLEATED RBCS (test code = 0.00 K/UL 59237) COMPREHENSIVE METABOLIC [id number] 00:00:00 Test Item Value Reference Range Interpretation Comments GLUCOSE (test code = 2217) 205 MG/DL BUN (test code = 2208) 23 MG/DL CREATININE (test code = 2214) 1.67 MG/DL eGFR (2020 CKD-EPI) (test code 32 ML/MIN/1.73 = 16949) CALC BUN/CREAT (test code = 14 RATIO [...] code = 2219) 21 U/L COMPREHENSIVE METABOLIC [id number] 00:00:00 Test Item Value Reference Range Interpretation Comments GLUCOSE (test code = 2217) 205 MG/DL BUN (test code = 2208) 23 MG/DL CREATININE (test code = 2214) 1.67 MG/DL eGFR (2020 CKD-EPI) (test code 32 ML/MIN/1.73 = 91491) CALC BUN/CREAT (test code = 14 RATIO [...] (test code = 2219) 21 U/L LIPID [id number] 00:00:00 Test Item Value Reference Range Interpretation Comments CHOLESTEROL (test code = 2210) 160 MG/DL TRIGLYCERIDES (test code = 2232) 129 MG/DL HDL CHOLESTEROL (test code = 2220) 55 MG/DL CALC LDL CHOL (test code = 2237) 82 MG/DL RISK RATIO LDL/HDL (test code = 1.49 RATIO 2238) LIPID [id number] 00:00:00 Test Item Value Reference Range Interpretation Comments CHOLESTEROL (test code = 2210) 160 MG/DL TRIGLYCERIDES (test code = 2232) 129 MG/DL HDL CHOLESTEROL (test code = 2220) 55 MG/DL CALC LDL CHOL (test code = 2237) 82 MG/DL RISK RATIO LDL/HDL (test code = 1.49 RATIO 2238) HEMOGLOBIN [id number] 00:00:00 Test Item Value Reference Range Interpretation Comments HEMOGLOBIN A1c (test code = 42144) 8.3 % HEMOGLOBIN [id number] 00:00:00 Test Item Value Reference Range Interpretation Comments HEMOGLOBIN A1c (test code = 89169) 8.3 % HEMOGLOBIN [id number] 00:00:00 Test Item Value Reference Range Interpretation Comments HEMOGLOBIN A1c (test code = 33660) 8.3 % CBC W/AUTO [id number] 00:00:00 Test Item Value Reference Range Interpretation [...] NUCLEATED RBCS (test code = 0.00 K/UL 99456) CBC W/AUTO [id number] 00:00:00 Test Item Value Reference Range Interpretation [...] NUCLEATED RBCS (test code = 0.00 K/UL 57413) CBC W/AUTO [id number] 00:00:00 Test Item Value Reference Range Interpretation [...] NUCLEATED RBCS (test code = 0.00 K/UL 20849) COMPREHENSIVE METABOLIC [id number] 00:00:00 Test Item Value Reference Range Interpretation Comments GLUCOSE (test code = 2217) 205 MG/DL BUN (test code = 2208) 23 MG/DL CREATININE (test code = 2214) 1.67 MG/DL eGFR (2020 CKD-EPI) (test code 32 ML/MIN/1.73 = 23909) CALC BUN/CREAT (test code = 14 RATIO [...] code = 2219) 21 U/L COMPREHENSIVE METABOLIC [id number] 00:00:00 Test Item Value Reference Range Interpretation Comments GLUCOSE (test code = 2217) 205 MG/DL BUN (test code = 2208) 23 MG/DL CREATININE (test code = 2214) 1.67 MG/DL eGFR (2020 CKD-EPI) (test code 32 ML/MIN/1.73 = 94311) CALC BUN/CREAT (test code = 14 RATIO [...] (test code = 2219) 21 U/L LIPID [id number] 00:00:00 Test Item Value Reference Range Interpretation Comments CHOLESTEROL (test code = 2210) 160 MG/DL TRIGLYCERIDES (test code = 2232) 129 MG/DL HDL CHOLESTEROL (test code = 2220) 55 MG/DL CALC LDL CHOL (test code = 2237) 82 MG/DL RISK RATIO LDL/HDL (test code = 1.49 RATIO 2238) LIPID [id number] 00:00:00 Test Item Value Reference Range Interpretation Comments CHOLESTEROL (test code = 2210) 160 MG/DL TRIGLYCERIDES (test code = 2232) 129 MG/DL HDL CHOLESTEROL (test code = 2220) 55 MG/DL CALC LDL CHOL (test code = 2237) 82 MG/DL RISK RATIO LDL/HDL (test code = 1.49 RATIO 2238) CULTURE, [id number] 14:31:20SPECIMEN NUMBER: [id number] CULTURE, URINE SPECIMEN NUMBER: [id number] SPECIMEN COMMENT: URINE SOURCE: URINE REPORT STATUS: FINAL ISOLATE NUMBER 1: ORGANISM: 01/06/2022 >100,000 CFU/ML GRAM NEGATIVE B ACILLI IDENTIFICATION: 01/07/2022 KLEBSIELLA PNEUMONIAE K. PNEUMONIAE AMOXICILLIN/CASENSITIVE <=8/4AMPICILLIN RESISTANT >16CEFAZOLIN SENSITIVE <=2CEFTRIAXONE SENSITIVE <=1CIPROFLOXACIN SENSITIVE <=1LEVOFLOXACIN SENSITIVE <=2NITROFURANTOIN RESISTANT >64PIP/TAZOBACSENSITIVE <=16TETRACYCLINE SENSITIVE <=4TOBRAMYCIN SENSITIVE <=4TRIMETH/SULFA SENSITIVE <=2/38 NOTE: NUMBERS DISPLAYED REPRESENT MINIMUM INHIBITORY CONCENTRATION (MARTA) WHICH IS EXPRESSED INMCG/ML. UNLESS OTHERWISE INDICATED, ALL TESTING PERFORMED [facility] [employer] [address] [place] [address] FUR CUTTER: KEN NEWMAN M.D. CLIA NUMBER [id number] [facility] [place]. [id number], [id number] 00:00:00 Test Item Value Reference Range Interpretation Comments CULTURE, URINE (test SPECIMEN NUMBER: code = 53576) [id number] CULTURE, [id number] 00:00:00 Test Item Value Reference Range Interpretation Comments CULTURE, URINE (test SPECIMEN NUMBER: code = 87651) [id number] CULTURE, [id number] 00:00:00 Test Item Value Reference Range Interpretation Comments CULTURE, URINE (test SPECIMEN NUMBER: code = 98119) [id number] CULTURE, [id number] 00:00:00 Test Item Value Reference Range Interpretation Comments CULTURE, URINE (test SPECIMEN NUMBER: code = 33227) [id number] CULTURE, [id number] 00:00:00 Test Item Value Reference Range Interpretation Comments CULTURE, URINE (test SPECIMEN NUMBER: code = 84556) [id number] CULTURE, [id number] 00:00:00 Test Item Value Reference Range Interpretation Comments CULTURE, URINE (test SPECIMEN NUMBER: code = 29034) [id number] CULTURE, [id number] 00:00:00 Test Item Value Reference Range Interpretation Comments CULTURE, URINE (test SPECIMEN NUMBER: code = 66952) [id number] CULTURE, [id number] 00:00:00 Test Item Value Reference Range Interpretation Comments CULTURE, URINE (test SPECIMEN NUMBER: code = 88539) [id number] CULTURE, [id number] 00:00:00 Test Item Value Reference Range Interpretation Comments CULTURE, URINE (test SPECIMEN NUMBER: code = 72494) [id number] CULTURE, [id number] 00:00:00 Test Item Value Reference Range Interpretation Comments CULTURE, URINE (test SPECIMEN NUMBER: code = 76684) [id number] CULTURE, [id number] 00:00:00 Test Item Value Reference Range Interpretation Comments CULTURE, URINE (test SPECIMEN NUMBER: code = 35286) [id number] CULTURE, [id number] 00:00:00 Test Item Value Reference Range Interpretation Comments CULTURE, URINE (test SPECIMEN NUMBER: code = 27574) [id number] OCCULT BLD,FECAL,IMMUNOASSAY [id number] 16:34:09 Test Item Value Reference Range Interpretation Comments OCCULT BLD, FECAL NEGATIVE NEGATIVE Note: Spe opheliaen received (test code = 97273) in an ex pired collection system. Results and details of anal ysis reviewed by [facility] IRIS MASSEY M.D. UNLESS OTHERWISE INDIC ATED, ALL TESTING PERFORM [facility], [address] [address] LABORATORY DIRE CTOR: Rojelio VILLAGRAN CLIA NUMBER [id number] CAP ACCREDITATION N O. [id number] OCCULT BLD,FECAL,IMMUNOASSAY [id number] 00:00:00 Test Item Value Reference Range Interpretation Comments OCCULT BLD, FECAL (test code = NEGATIVE 48054) OCCULT BLD,FECAL,IMMUNOASSAY [id number] 00:00:00 Test Item Value Reference Range Interpretation Comments OCCULT BLD, FECAL (test code = NEGATIVE 54271) OCCULT BLD,FECAL,IMMUNOASSAY [id number] 00:00:00 Test Item Value Reference Range Interpretation Comments OCCULT BLD, FECAL (test code = NEGATIVE 18987) OCCULT BLD,FECAL,IMMUNOASSAY [id number] 00:00:00 Test Item Value Reference Range Interpretation Comments OCCULT BLD, FECAL (test code = NEGATIVE 89218) OCCULT BLD,FECAL,IMMUNOASSAY [id number] 00:00:00 Test Item Value Reference Range Interpretation Comments OCCULT BLD, FECAL (test code = NEGATIVE 42282) OCCULT BLD,FECAL,IMMUNOASSAY [id number] 00:00:00 Test Item Value Reference Range Interpretation Comments OCCULT BLD, FECAL (test code = NEGATIVE 59196) OCCULT BLD,FECAL,IMMUN[facility]ASSAY [id number] 00:00:00 Test Item Value Reference Range Interpretation Comments OCCULT BLD, FECAL (test code = NEGATIVE 15470) OCCULT BLD,FECAL,IMMUNOASSAY [id number] 00:00:00 Test Item Value Reference Range Interpretation Comments OCCULT BLD, FECAL (test code = NEGATIVE 83100) OCCULT BLD,FECAL,IMMUNOASSAY [id number] 00:00:00 Test Item Value Reference Range Interpretation Comments OCCULT BLD, FECAL (test code = NEGATIVE 68657) OCCULT BLD,FECAL,IMMUNOASSAY [id number] 00:00:00 Test Item Value Reference Range Interpretation Comments OCCULT BLD, FECAL (test code = NEGATIVE 74138) OCCULT BLD,FECAL,IMMUNOASSAY [id number] 00:00:00 Test Item Value Reference Range Interpretation Comments OCCULT BLD, FECAL (test code = NEGATIVE 74925) OCCULT BLD,FECAL,IMMUNOASSAY [id number] 00:00:00 Test Item Value Reference Range Interpretation Comments OCCULT BLD, FECAL (test code = NEGATIVE 93827) OCCULT BLD,FECAL,IMMUNOASSAY [id number] 00:00:00 Test Item Value Reference Range Interpretation Comments OCCULT BLD, FECAL (test code = NEGATIVE 51118) HEMOGLOBIN [id number] 04:08:08 Test Item Value Reference Range Interpretation Comments HEMOGLOBIN A1c (test 8.3 % 4.2-5.6 H AMERIC AN DIABETES code = 92221) ASSOCIATION IDELINES FOR HGB A1C: PREDIABETES/INC REASED [...] INDICATED, ALL TESTING PER FORMED ATCLINICAL PATH [facility], [facility]. [address] [place] [address] LABORATORY DIRE CTOR: KEN NEWMAN M.D. CLIA NUMBER [id number] [facility] [place]. [id number] HEMOGLOBIN [id number] 00:00:00 Test Item Value Reference Range Interpretation Comments HEMOGLOBIN A1c (test code = 69122) 8.3 % HEMOGLOBIN [id number] 00:00:00 Test Item Value Reference Range Interpretation Comments HEMOGLOBIN A1c (test code = 40831) 8.3 % HEMOGLOBIN [id number] 00:00:00 Test Item Value Reference Range Interpretation Comments HEMOGLOBIN A1c (test code = 46706) 8.3 % HEMOGLOBIN [id number] 00:00:00 Test Item Value Reference Range Interpretation Comments HEMOGLOBIN A1c (test code = 93082) 8.3 % HEMOGLOBIN [id number] 00:00:00 Test Item Value Reference Range Interpretation Comments HEMOGLOBIN A1c (test code = 59254) 8.3 % HEMOGLOBIN [id number] 00:00:00 Test Item Value Reference Range Interpretation Comments HEMOGLOBIN A1c (test code = 20259) 8.3 % HEMOGLOBIN [id number] 00:00:00 Test Item Value Reference Range Interpretation Comments HEMOGLOBIN A1c (test code = 99631) 8.3 % HEMOGLOBIN [id number] 00:00:00 Test Item Value Reference Range Interpretation Comments HEMOGLOBIN A1c (test code = 26586) 8.3 % HEMOGLOBIN [id number] 00:00:00 Test Item Value Reference Range Interpretation Comments HEMOGLOBIN A1c (test code = 11161) 8.3 % HEMOGLOBIN [id number] 00:00:00 Test Item Value Reference Range Interpretation Comments HEMOGLOBIN A1c (test code = 77731) 8.3 % HEMOGLOBIN [id number] 00:00:00 Test Item Value Reference Range Interpretation Comments HEMOGLOBIN A1c (test code = 46005) 8.3 % HEMOGLOBIN [id number] 00:00:00 Test Item Value Reference Range Interpretation Comments HEMOGLOBIN A1c (test code = 44514) 8.3 % HEMOGLOBIN [id number] 00:00:00 Test Item Value Reference Range Interpretation Comments HEMOGLOBIN A1c (test code = 06004) 8.3 % HEMOGLOBIN [id number] 00:00:00 Test Item Value Reference Range Interpretation Comments HEMOGLOBIN A1c (test code = 57024) 8.3 % HEMOGLOBIN [id number] 00:00:00 Test Item Value Reference Range Interpretation Comments HEMOGLOBIN A1c (test code = 39067) 8.3 % HEMOGLOBIN [id number] 00:00:00 Test Item Value Reference Range Interpretation Comments HEMOGLOBIN A1c (test code = 91673) 8.3 % HEMOGLOBIN [id number] 00:00:00 Test Item Value Reference Range Interpretation Comments HEMOGLOBIN A1c (test code = 14010) 8.3 % HEMOGLOBIN [id number] 00:00:00 Test Item Value Reference Range Interpretation Comments HEMOGLOBIN A1c (test code = 73813) 8.3 % HEMOGLOBIN [id number] 00:00:00 Test Item Value Reference Range Interpretation Comments HEMOGLOBIN A1c (test code = 59061) 8.3 % HEMOGLOBIN [id number] 00:00:00 Test Item Value Reference Range Interpretation Comments HEMOGLOBIN A1c (test code = 06890) 8.3 % HEMOGLOBIN [id number] 00:00:00 Test Item Value Reference Range Interpretation Comments HEMOGLOBIN A1c (test code = 42950) 8.3 % HEMOGLOBIN [id number] 00:00:00 Test Item Value Reference Range Interpretation Comments HEMOGLOBIN A1c (test code = 35475) 8.3 % CULTURE, [id number] 12:05:43SPECIMEN NUMBER: [id number] CULTURE, URINE SPECIMEN NUMBER: [id number] SPECIMEN COMMENT: URINE SOURCE:URINE REPORT STATUS: FINAL ISOLATE NUMBER 1: ORGANISM: 09/23/2021 >100,000 CFU/ML GRAM NEGATIVE BA CILLI IDENTIFICATION: 09/24/2021 ESCHERICHIA COLI E. COLI AMOXICILLIN/CA SENSITIVE <=8/4AMPICILLIN RESISTANT >16CEFAZOLIN SENSITIVE <=2CEFTRIAXONE SENSITIVE <=1CIPROFLOXACIN SENSITIVE <=1LEVOFLOXACIN SENSITIVE <=2NITROFURANTOIN SENSITIVE <=32PIP/TAZOBAC SENSITIVE <=16TETRACYCLINE RESISTANT >8TOBRAMYCIN SENSITIVE <=4TRIMETH/SULFA RESISTANT >2/38 NOTE:NUMBERS DISPLAYED REPRESENT MINIMUM INHIBITORY CONCENTRATION (MARTA) WHICH IS EXPRESSED IN MCG/ML. CULTURE, [id number] 00:00:00 Test Item Value Reference Range Interpretation Comments CULTURE, URINE (test SPECIMEN NUMBER: code = 42996) [id number] CULTURE, [id number] 00:00:00 Test Item Value Reference Range Interpretation Comments CULTURE, URINE (test SPECIMEN NUMBER: code = 00832) [id number] CULTURE, [id number] 00:00:00 Test Item Value Reference Range Interpretation Comments CULTURE, URINE (test SPECIMEN NUMBER: code = 04963) [id number] CULTURE, [id number] 00:00:00 Test Item Value Reference Range Interpretation Comments CULTURE, URINE (test SPECIMEN NUMBER: code = 21745) [id number] CULTURE, [id number] 00:00:00 Test Item Value Reference Range Interpretation Comments CULTURE, URINE (test SPECIMEN NUMBER: code = 87286) [id number] CULTURE, [id number] 00:00:00 Test Item Value Reference Range Interpretation Comments CULTURE, URINE (test SPECIMEN NUMBER: code = 25340) [id number] CULTURE, [id number] 00:00:00 Test Item Value Reference Range Interpretation Comments CULTURE, URINE (test SPECIMEN NUMBER: code = 12167) [id number] CULTURE, [id number] 00:00:00 Test Item Value Reference Range Interpretation Comments CULTURE, URINE (test SPECIMEN NUMBER: code = 90591) [id number] CULTURE, [id number] 00:00:00 Test Item Value Reference Range Interpretation Comments CULTURE, URINE (test SPECIMEN NUMBER: code = 00633) [id number] CULTURE, [id number] 00:00:00 Test Item Value Reference Range Interpretation Comments CULTURE, URINE (test SPECIMEN NUMBER: code = 42144) [id number] CULTURE, [id number] 00:00:00 Test Item Value Reference Range Interpretation Comments CULTURE, URINE (test SPECIMEN NUMBER: code = 10972) [id number] CULTURE, [id number] 00:00:00 Test Item Value Reference Range Interpretation Comments CULTURE, URINE (test SPECIMEN NUMBER: code = 31033) [id number] CULTURE, [id number] 00:00:00 Test Item Value Reference Range Interpretation Comments CULTURE, URINE (test SPECIMEN NUMBER: code = 30107) [id number] CULTURE, [id number] 00:00:00 Test Item Value Reference Range Interpretation Comments CULTURE, URINE (test SPECIMEN NUMBER: code = 98429) [id number] TSH, THIRD [id number] 03:43:01 Test Item Value Reference Range Interpretation Comments TSH, THIRD 2.470 UIU/ML 0.400-4.100 UNLESS OTHERWI SE GENERATION (test INDICATED, ALL TESTING code = 2821) PERFORMED [facility], [id number] [place] [address] DIRECTOR: KEN NEWMAN M.D. CLIA NUMBER [id number] CAP ACCREDITATION N O. [id number] CBC W/AUTO DIFF WITH [id number] 03:14:58 Test Item Value Reference Range Interpretation [...] RBCS 0.00 K/UL 0.00-0.11 (test code = 50918) COMPREHENSIVE METABOLIC [id number] 02:59:52 Test Item Value Reference Range Interpretation Comments GLUCOSE (test code = 188 MG/DL 70-99 H 2216) BUN (test code = 40 MG/DL 8-23 H 2207) CREATININE (test 1.36 MG/DL 0.60-1.30 H code = 2213) eGFR (2020 CKD-EPI) 41 ML/MIN/1.73 >60 L (test code = 73033) CALC BUN/CREAT (test 29 RATIO 6-28 H code = 2235) SODIUM (test code = 145 MEQ/L 554-687 0550) POTASSIUM (test code 5.2 MEQ/L 3.5-5.4 = [...] MG/DL See_Comment [Automated message] (test code = 7) The syste m which generated this result transmit ellie reference range : <=1.2. The refe rence range was not u sed to interpret th is result as normal/abnormal . ALKALINE PHOSPHATASE 84 U/L 40-142 (test code = 2204) AST (test code = 15 U/L 9-40 8) ALT (test code = 14 U/L 5-40 9) CBC W/AUTO [id number] 00:00:00 Test Item Value Reference Range Interpretation [...] NUCLEATED RBCS (test code = 0.00 K/UL 99905) CBC W/AUTO [id number] 00:00:00 Test Item Value Reference Range Interpretation [...] NUCLEATED RBCS (test code = 0.00 K/UL 63663) CBC W/AUTO [id number] 00:00:00 Test Item Value Reference Range Interpretation [...] NUCLEATED RBCS (test code = 0.00 K/UL 06252) COMPREHENSIVE METABOLIC [id number] 00:00:00 Test Item Value Reference Range Interpretation Comments GLUCOSE (test code = 2217) 188 MG/DL BUN (test code = 2208) 40 MG/DL CREATININE (test code = 2214) 1.36 MG/DL eGFR (2020 CKD-EPI) (test code 41 ML/MIN/1.73 = 08385) CALC BUN/CREAT (test code = 29 RATIO [...] code = 2219) 14 U/L COMPREHENSIVE METABOLIC [id number] 00:00:00 Test Item Value Reference Range Interpretation Comments GLUCOSE (test code = 2217) 188 MG/DL BUN (test code = 2208) 40 MG/DL CREATININE (test code = 2214) 1.36 MG/DL eGFR (2020 CKD-EPI) (test code 41 ML/MIN/1.73 = 16577) CALC BUN/CREAT (test code = 29 RATIO [...] ALKALINE PHOSPHATASE (test 84 U/L code = 2203) AST (test code = 2218) 15 U/L ALT (test code = 2219) 14 U/L [id number] 00:00:00 Test Item Value Reference Range Interpretation Comments TSH, THIRD GENERATION (test code 2.470 UIU/ML = 2821) [id number] 00:00:00 Test Item Value Reference Range Interpretation Comments TSH, THIRD GENERATION (test code 2.470 UIU/ML = 2821) [id number] 00:00:00 Test Item Value Reference Range Interpretation Comments TSH, THIRD GENERATION (test code 2.470 UIU/ML = 2821) CBC W/AUTO [id number] 00:00:00 Test Item Value Reference Range Interpretation [...] NUCLEATED RBCS (test code = 0.00 K/UL 72201) CBC W/AUTO [id number] 00:00:00 Test Item Value Reference Range Interpretation [...] NUCLEATED RBCS (test code = 0.00 K/UL 16992) CBC W/AUTO [id number] 00:00:00 Test Item Value Reference Range Interpretation [...] NUCLEATED RBCS (test code = 0.00 K/UL 35293) COMPREHENSIVE METABOLIC [id number] 00:00:00 Test Item Value Reference Range Interpretation Comments GLUCOSE (test code = 2217) 188 MG/DL BUN (test code = 2208) 40 MG/DL CREATININE (test code = 2214) 1.36 MG/DL eGFR (2020 CKD-EPI) (test code 41 ML/MIN/1.73 = 04200) CALC BUN/CREAT (test code = 29 RATIO [...] code = 2219) 14 U/L COMPREHENSIVE METABOLIC [id number] 00:00:00 Test Item Value Reference Range Interpretation Comments GLUCOSE (test code = 2217) 188 MG/DL BUN (test code = 2208) 40 MG/DL CREATININE (test code = 2214) 1.36 MG/DL eGFR (2020 CKD-EPI) (test code 41 ML/MIN/1.73 = 03755) CALC BUN/CREAT (test code = 29 RATIO [...] ALT (test code = 2219) 14 U/L [id number] 00:00:00 Test Item Value Reference Range Interpretation Comments TSH, THIRD GENERATION (test code 2.470 UIU/ML = 2821) [id number] 00:00:00 Test Item Value Reference Range Interpretation Comments TSH, THIRD GENERATION (test code 2.470 UIU/ML = 2821) [id number] 00:00:00 Test Item Value Reference Range Interpretation Comments TSH, THIRD GENERATION (test code 2.470 UIU/ML = 2821) CBC W/AUTO [id number] 00:00:00 Test Item Value Reference Range Interpretation [...] NUCLEATED RBCS (test code = 0.00 K/UL 10731) CBC W/AUTO [id number] 00:00:00 Test Item Value Reference Range Interpretation [...] NUCLEATED RBCS (test code = 0.00 K/UL 73090) COMPREHENSIVE METABOLIC [id number] 00:00:00 Test Item Value Reference Range Interpretation Comments GLUCOSE (test code = 2217) 188 MG/DL BUN (test code = 2208) 40 MG/DL CREATININE (test code = 2214) 1.36 MG/DL eGFR (2020 CKD-EPI) (test code 41 ML/MIN/1.73 = 49455) CALC BUN/CREAT (test code = 29 RATIO [...] ALT (test code = 2219) 14 U/L [id number] 00:00:00 Test Item Value Reference Range Interpretation Comments TSH, THIRD GENERATION (test code 2.470 UIU/ML = 2821) CBC W/AUTO [id number] 00:00:00 Test Item Value Reference Range Interpretation [...] NUCLEATED RBCS (test code = 0.00 K/UL 02858) CBC W/AUTO [id number] 00:00:00 Test Item Value Reference Range Interpretation [...] NUCLEATED RBCS (test code = 0.00 K/UL 71583) CBC W/AUTO [id number] 00:00:00 Test Item Value Reference Range Interpretation [...] NUCLEATED RBCS (test code = 0.00 K/UL 22618) COMPREHENSIVE METABOLIC [id number] 00:00:00 Test Item Value Reference Range Interpretation Comments GLUCOSE (test code = 2217) 188 MG/DL BUN (test code = 2208) 40 MG/DL CREATININE (test code = 2214) 1.36 MG/DL eGFR (2020 CKD-EPI) (test code 41 ML/MIN/1.73 = 52372) CALC BUN/CREAT (test code = 29 RATIO [...] code = 2219) 14 U/L COMPREHENSIVE METABOLIC [id number] 00:00:00 Test Item Value Reference Range Interpretation Comments GLUCOSE (test code = 2217) 188 MG/DL BUN (test code = 2208) 40 MG/DL CREATININE (test code = 2214) 1.36 MG/DL eGFR (2020 CKD-EPI) (test code 41 ML/MIN/1.73 = 50477) CALC BUN/CREAT (test code = 29 RATIO [...] ALT (test code = 2219) 14 U/L [id number] 00:00:00 Test Item Value Reference Range Interpretation Comments TSH, THIRD GENERATION (test code 2.470 UIU/ML = 2821) [id number] 00:00:00 Test Item Value Reference Range Interpretation Comments TSH, THIRD GENERATION (test code 2.470 UIU/ML = 2821) [id number] 00:00:00 Test Item Value Reference Range Interpretation Comments TSH, THIRD GENERATION (test code 2.470 UIU/ML = 2821) [id number] 00:00:00 Test Item Value Reference Range Interpretation Comments TSH, THIRD GENERATION (test code 2.470 UIU/ML = 2821) CBC W/AUTO [id number] 00:00:00 Test Item Value Reference Range Interpretation [...] NUCLEATED RBCS (test code = 0.00 K/UL 50616) CBC W/AUTO [id number] 00:00:00 Test Item Value Reference Range Interpretation [...] NUCLEATED RBCS (test code = 0.00 K/UL 35345) CBC W/AUTO [id number] 00:00:00 Test Item Value Reference Range Interpretation [...] NUCLEATED RBCS (test code = 0.00 K/UL 08165) COMPREHENSIVE METABOLIC [id number] 00:00:00 Test Item Value Reference Range Interpretation Comments GLUCOSE (test code = 2217) 188 MG/DL BUN (test code = 2208) 40 MG/DL CREATININE (test code = 2214) 1.36 MG/DL eGFR (2020 CKD-EPI) (test code 41 ML/MIN/1.73 = 67283) CALC BUN/CREAT (test code = 29 RATIO [...] code = 2219) 14 U/L COMPREHENSIVE METABOLIC [id number] 00:00:00 Test Item Value Reference Range Interpretation Comments GLUCOSE (test code = 2217) 188 MG/DL BUN (test code = 2208) 40 MG/DL CREATININE (test code = 2214) 1.36 MG/DL eGFR (2020 CKD-EPI) (test code 41 ML/MIN/1.73 = 45805) CALC BUN/CREAT (test code = 29 RATIO 5) SODIUM (test code = 2231) 145 MEQ/L [...] ALT (test code = 2219) 14 U/L [id number] 00:00:00 Test Item Value Reference Range Interpretation Comments TSH, THIRD GENERATION (test code 2.470 UIU/ML = 2821) [id number] 00:00:00 Test Item Value Reference Range Interpretation Comments TSH, THIRD GENERATION (test code 2.470 UIU/ML = 2821) [id number] 00:00:00 Test Item Value Reference Range Interpretation Comments TSH, THIRD GENERATION (test code 2.470 UIU/ML = 2821) CBC W/AUTO [id number] 00:00:00 Test Item Value Reference Range Interpretation [...] NUCLEATED RBCS (test code = 0.00 K/UL 65190) CBC W/AUTO [id number] 00:00:00 Test Item Value Reference Range Interpretation [...] NUCLEATED RBCS (test code = 0.00 K/UL 81213) COMPREHENSIVE METABOLIC [id number] 00:00:00 Test Item Value Reference Range Interpretation Comments GLUCOSE (test code = 2217) 188 MG/DL BUN (test code = 2208) 40 MG/DL CREATININE (test code = 2214) 1.36 MG/DL eGFR (2020 CKD-EPI) (test code 41 ML/MIN/1.73 = 91818) CALC BUN/CREAT (test code = 29 RATIO 2235) SODIUM (test code = 2231) 145 MEQ/L POTASSIUM (test code = 2228) 5.2 MEQ/L CHLORIDE (test code = 2215) 109 MEQ/L CARBON DIOXIDE (test code = 21 MEQ/L 2205) CALCIUM (test code = 2209) 9.7 MG/DL PROTEIN, TOTAL (test code = 7.6 G/DL 2228) ALBUMIN (test code = 220) 4.4 G/DL CALC GLOBULIN (test code = 3.2 G/DL 2239) CALC A/G RATIO (test code = 1.4 RATIO 2233) BILIRUBIN, TOTAL (test code = 0.3 MG/DL 2206) ALKALINE PHOSPHATASE (test 84 U/L code = 2204) AST (test code = 2218) 15 U/L ALT (test code = 2219) 14 U/L [id number] 00:00:00 Test Item Value Reference Range Interpretation Comments TSH, THIRD GENERATION (test code 2.470 UIU/ML = 2821) [id number] 00:00:00 Test Item Value Reference Range Interpretation Comments TSH, THIRD GENERATION (test code 2.470 UIU/ML = 2821) CBC W/AUTO [id number] 00:00:00 Test Item Value Reference Range Interpretation [...] NUCLEATED RBCS (test code = 0.00 K/UL 24762) CBC W/AUTO [id number] 00:00:00 Test Item Value Reference Range Interpretation [...] NUCLEATED RBCS (test code = 0.00 K/UL 40720) CBC W/AUTO [id number] 00:00:00 Test Item Value Reference Range Interpretation [...] NUCLEATED RBCS (test code = 0.00 K/UL 49650) COMPREHENSIVE METABOLIC [id number] 00:00:00 Test Item Value Reference Range Interpretation Comments GLUCOSE (test code = 2217) 188 MG/DL BUN (test code = 2208) 40 MG/DL CREATININE (test code = 2214) 1.36 MG/DL eGFR (2020 CKD-EPI) (test code 41 ML/MIN/1.73 = 31140) CALC BUN/CREAT (test code = 29 RATIO [...] code = 2219) 14 U/L COMPREHENSIVE METABOLIC [id number] 00:00:00 Test Item Value Reference Range Interpretation Comments GLUCOSE (test code = 2217) 188 MG/DL BUN (test code = 2208) 40 MG/DL CREATININE (test code = 2214) 1.36 MG/DL eGFR (2020 CKD-EPI) (test code 41 ML/MIN/1.73 = 15807) CALC BUN/CREAT (test code = 29 RATIO [...] ALT (test code = 2219) 14 U/L [id number] 00:00:00 Test Item Value Reference Range Interpretation Comments TSH, THIRD GENERATION (test code 2.470 UIU/ML = 2821) [id number] 00:00:00 Test Item Value Reference Range Interpretation Comments TSH, THIRD GENERATION (test code 2.470 UIU/ML = 2821) [id number] 00:00:00 Test Item Value Reference Range Interpretation Comments TSH, THIRD GENERATION (test code 2.470 UIU/ML = 2821) CBC W/AUTO [id number] 00:00:00 Test Item Value Reference Range Interpretation [...] NUCLEATED RBCS (test code = 0.00 K/UL 55171) CBC W/AUTO [id number] 00:00:00 Test Item Value Reference Range Interpretation [...] NUCLEATED RBCS (test code = 0.00 K/UL 49569) CBC W/AUTO [id number] 00:00:00 Test Item Value Reference Range Interpretation [...] NUCLEATED RBCS (test code = 0.00 K/UL 88648) COMPREHENSIVE METABOLIC [id number] 00:00:00 Test Item Value Reference Range Interpretation Comments GLUCOSE (test code = 2217) 188 MG/DL BUN (test code = 2208) 40 MG/DL CREATININE (test code = 2214) 1.36 MG/DL eGFR (2020 CKD-EPI) (test code 41 ML/MIN/1.73 = 03780) CALC BUN/CREAT (test code = 29 RATIO [...] code = 2219) 14 U/L COMPREHENSIVE METABOLIC [id number] 00:00:00 Test Item Value Reference Range Interpretation Comments GLUCOSE (test code = 2217) 188 MG/DL BUN (test code = 2208) 40 MG/DL CREATININE (test code = 2214) 1.36 MG/DL eGFR (2020 CKD-EPI) (test code 41 ML/MIN/1.73 = 50731) CALC BUN/CREAT (test code = 29 RATIO [...] ALT (test code = 2219) 14 U/L [id number] 00:00:00 Test Item Value Reference Range Interpretation Comments TSH, THIRD GENERATION (test code 2.470 UIU/ML = 2821) [id number] 00:00:00 Test Item Value Reference Range Interpretation Comments TSH, THIRD GENERATION (test code 2.470 UIU/ML = 2821) [id number] 00:00:00 Test Item Value Reference Range Interpretation Comments TSH, THIRD GENERATION (test code 2.470 UIU/ML = 2821) CBC W/AUTO DIFF WITH [id number] 04:35:16 Test Item Value Reference Range Interpretation [...] RBCS 0.00 K/UL 0.00-0.11 (test code = 55159) HEMOGLOBIN [id number] 04:23:29 Test Item Value Reference Range Interpretation Comments HEMOGLOBIN A1c (test 8.8 % 4.2-5.6 H [employer] AN DIABETES code = 99080) ASSOCIATION IDELINES FOR HGB A1C: PREDIABETES/INC REASED [...] TESTING OR LABORATORY C ONSULTATION. COMPREHENSIVE METABOLIC [id number] 03:52:38 Test Item Value Reference Range Interpretation Comments GLUCOSE (test code = 166 MG/DL 70-99 H 2216) BUN (test code = 30 MG/DL 8-23 H 2207) CREATININE (test 1.31 MG/DL 0.60-1.30 H code = 2214) eGFR (2020 CKD-EPI) 43 >60 L (test code = 17384) ML/MIN/1.73 CALC BUN/CREAT (test 23 RATIO 6-28 code = 2235) SODIUM (test code = 140 MEQ/L 019-608 3041) POTASSIUM (test code 5.5 MEQ/L 3.5-5.4 H [...] PHOSPHATASE 86 U/L 40-142 (test code = 220) AST (test code = 21 U/L 9-40 2217) ALT (test code = 13 U/L 5-40 UNLESS OTH ERWISE 2218) INDICATED, ALL TESTING PERFORM ED [facility], [facility]. [address] [place] [id number] [place] [address] DIRECTOR: Janessa VILLAGRANIA NUMBER [id number] CAP ACCREDITATION N O. [id number] HEMOGLOBIN [id number] 00:00:00 Test Item Value Reference Range Interpretation Comments HEMOGLOBIN A1c (test code = 95425) 8.8 % HEMOGLOBIN [id number] 00:00:00 Test Item Value Reference Range Interpretation Comments HEMOGLOBIN A1c (test code = 91485) 8.8 % HEMOGLOBIN [id number] 00:00:00 Test Item Value Reference Range Interpretation Comments HEMOGLOBIN A1c (test code = 63777) 8.8 % CBC W/AUTO [id number] 00:00:00 Test Item Value Reference Range Interpretation [...] NUCLEATED RBCS (test code = 0.00 K/UL 99998) CBC W/AUTO [id number] 00:00:00 Test Item Value Reference Range Interpretation [...] NUCLEATED RBCS (test code = 0.00 K/UL 31567) CBC W/AUTO [id number] 00:00:00 Test Item Value Reference Range Interpretation [...] NUCLEATED RBCS (test code = 0.00 K/UL 79529) COMPREHENSIVE METABOLIC [id number] 00:00:00 Test Item Value Reference Range Interpretation Comments GLUCOSE (test code = 2217) 166 MG/DL BUN (test code = 2208) 30 MG/DL CREATININE (test code = 2214) 1.31 MG/DL eGFR (2020 CKD-EPI) (test code 43 ML/MIN/1.73 = 45558) CALC BUN/CREAT (test code = 23 RATIO [...] ALKALINE PHOSPHATASE (test 86 U/L code = 2203) AST (test code = 2218) 21 U/L ALT (test code = 2219) 13 U/L COMPREHENSIVE METABOLIC [id number] 00:00:00 Test Item Value Reference Range Interpretation Comments GLUCOSE (test code = 2216) 166 MG/DL BUN (test code = 2208) 30 MG/DL CREATININE (test code = 2214) 1.31 MG/DL eGFR (2020 CKD-EPI) (test code 43 ML/MIN/1.73 = 70593) CALC BUN/CREAT (test code = 23 RATIO [...] (test code = 2219) 13 U/L HEMOGLOBIN [id number] 00:00:00 Test Item Value Reference Range Interpretation Comments HEMOGLOBIN A1c (test code = 73460) 8.8 % HEMOGLOBIN [id number] 00:00:00 Test Item Value Reference Range Interpretation Comments HEMOGLOBIN A1c (test code = 95311) 8.8 % HEMOGLOBIN [id number] 00:00:00 Test Item Value Reference Range Interpretation Comments HEMOGLOBIN A1c (test code = 89990) 8.8 % HEMOGLOBIN [id number] 00:00:00 Test Item Value Reference Range Interpretation Comments HEMOGLOBIN A1c (test code = 83112) 8.8 % HEMOGLOBIN [id number] 00:00:00 Test Item Value Reference Range Interpretation Comments HEMOGLOBIN A1c (test code = 82731) 8.8 % CBC W/AUTO [id number] 00:00:00 Test Item Value Reference Range Interpretation [...] NUCLEATED RBCS (test code = 0.00 K/UL 05830) CBC W/AUTO [id number] 00:00:00 Test Item Value Reference Range Interpretation [...] NUCLEATED RBCS (test code = 0.00 K/UL 64316) CBC W/AUTO [id number] 00:00:00 Test Item Value Reference Range Interpretation [...] NUCLEATED RBCS (test code = 0.00 K/UL 80634) CBC W/AUTO [id number] 00:00:00 Test Item Value Reference Range Interpretation [...] NUCLEATED RBCS (test code = 0.00 K/UL 06429) CBC W/AUTO [id number] 00:00:00 Test Item Value Reference Range Interpretation [...] NUCLEATED RBCS (test code = 0.00 K/UL 59258) COMPREHENSIVE METABOLIC [id number] 00:00:00 Test Item Value Reference Range Interpretation Comments GLUCOSE (test code = 2217) 166 MG/DL BUN (test code = 2208) 30 MG/DL CREATININE (test code = 2214) 1.31 MG/DL eGFR (2020 CKD-EPI) (test code 43 ML/MIN/1.73 = 10791) CALC BUN/CREAT (test code = 23 RATIO 2235) SODIUM (test code = 2231) 140 MEQ/L POTASSIUM (test code = 2228) 5.5 MEQ/L CHLORIDE (test code = 2215) 104 MEQ/L CARBON DIOXIDE (test code = 22 MEQ/L 2205) CALCIUM (test code = 2209) 10.0 MG/DL PROTEIN, TOTAL (test code = 7.8 G/DL 2229) ALBUMIN (test code = 2201) 4.5 G/DL CALC GLOBULIN (test code = 3.3 G/DL 2240) CALC A/G RATIO (test code = 1.4 RATIO 2234) BILIRUBIN, TOTAL (test code = 0.4 MG/DL 220) ALKALINE PHOSPHATASE (test 86 U/L code = 2204) AST (test code = 2218) 21 U/L ALT (test code = 2219) 13 U/L COMPREHENSIVE METABOLIC [id number] 00:00:00 Test Item Value Reference Range Interpretation Comments GLUCOSE (test code = 2217) 166 MG/DL BUN (test code = 2208) 30 MG/DL CREATININE (test code = 2214) 1.31 MG/DL eGFR (2020 CKD-EPI) (test code 43 ML/MIN/1.73 = 77736) CALC BUN/CREAT (test code = 23 RATIO [...] code = 2219) 13 U/L COMPREHENSIVE METABOLIC [id number] 00:00:00 Test Item Value Reference Range Interpretation Comments GLUCOSE (test code = 2217) 166 MG/DL BUN (test code = 2208) 30 MG/DL CREATININE (test code = 2214) 1.31 MG/DL eGFR (2020 CKD-EPI) (test code 43 ML/MIN/1.73 = 30257) CALC BUN/CREAT (test code = 23 RATIO [...] (test code = 2219) 13 U/L HEMOGLOBIN [id number] 00:00:00 Test Item Value Reference Range Interpretation Comments HEMOGLOBIN A1c (test code = 10249) 8.8 % HEMOGLOBIN [id number] 00:00:00 Test Item Value Reference Range Interpretation Comments HEMOGLOBIN A1c (test code = 21854) 8.8 % HEMOGLOBIN [id number] 00:00:00 Test Item Value Reference Range Interpretation Comments HEMOGLOBIN A1c (test code = 41415) 8.8 % CBC W/AUTO [id number] 00:00:00 Test Item Value Reference Range Interpretation [...] NUCLEATED RBCS (test code = 0.00 K/UL 85614) CBC W/AUTO [id number] 00:00:00 Test Item Value Reference Range Interpretation [...] NUCLEATED RBCS (test code = 0.00 K/UL 25402) CBC W/AUTO [id number] 00:00:00 Test Item Value Reference Range Interpretation [...] NUCLEATED RBCS (test code = 0.00 K/UL 50203) COMPREHENSIVE METABOLIC [id number] 00:00:00 Test Item Value Reference Range Interpretation Comments GLUCOSE (test code = 2217) 166 MG/DL BUN (test code = 2208) 30 MG/DL CREATININE (test code = 2214) 1.31 MG/DL eGFR (2020 CKD-EPI) (test code 43 ML/MIN/1.73 = 68025) CALC BUN/CREAT (test code = 23 RATIO [...] RATIO 223) BILIRUBIN, TOTAL (test code = 0.4 MG/DL 2207) ALKALINE PHOSPHATASE (test 86 U/L code = 2204) AST (test code = 2218) 21 U/L ALT (test code = 2219) 13 U/L COMPREHENSIVE METABOLIC [id number] 00:00:00 Test Item Value Reference Range Interpretation Comments GLUCOSE (test code = 2217) 166 MG/DL BUN (test code = 2208) 30 MG/DL CREATININE (test code = 2214) 1.31 MG/DL eGFR (2020 CKD-EPI) (test code 43 ML/MIN/1.73 = 55197) CALC BUN/CREAT (test code = 23 RATIO [...] (test code = 2219) 13 U/L HEMOGLOBIN [id number] 00:00:00 Test Item Value Reference Range Interpretation Comments HEMOGLOBIN A1c (test code = 39055) 8.8 % HEMOGLOBIN [id number] 00:00:00 Test Item Value Reference Range Interpretation Comments HEMOGLOBIN A1c (test code = 10373) 8.8 % HEMOGLOBIN [id number] 00:00:00 Test Item Value Reference Range Interpretation Comments HEMOGLOBIN A1c (test code = 75636) 8.8 % CBC W/AUTO [id number] 00:00:00 Test Item Value Reference Range Interpretation [...] NUCLEATED RBCS (test code = 0.00 K/UL 44141) CBC W/AUTO [id number] 00:00:00 Test Item Value Reference Range Interpretation [...] NUCLEATED RBCS (test code = 0.00 K/UL 80323) CBC W/AUTO [id number] 00:00:00 Test Item Value Reference Range Interpretation [...] NUCLEATED RBCS (test code = 0.00 K/UL 20622) COMPREHENSIVE METABOLIC [id number] 00:00:00 Test Item Value Reference Range Interpretation Comments GLUCOSE (test code = 2217) 166 MG/DL BUN (test code = 2208) 30 MG/DL CREATININE (test code = 2214) 1.31 MG/DL eGFR (2020 CKD-EPI) (test code 43 ML/MIN/1.73 = 19242) CALC BUN/CREAT (test code = 23 RATIO [...] ALKALINE PHOSPHATASE (test 86 U/L code = 2203) AST (test code = 2218) 21 U/L ALT (test code = 2219) 13 U/L COMPREHENSIVE METABOLIC [id number] 00:00:00 Test Item Value Reference Range Interpretation Comments GLUCOSE (test code = 2216) 166 MG/DL BUN (test code = 2208) 30 MG/DL CREATININE (test code = 2214) 1.31 MG/DL eGFR (2020 CKD-EPI) (test code 43 ML/MIN/1.73 = 04131) CALC BUN/CREAT (test code = 23 RATIO [...] (test code = 2219) 13 U/L HEMOGLOBIN [id number] 00:00:00 Test Item Value Reference Range Interpretation Comments HEMOGLOBIN A1c (test code = 09985) 8.8 % HEMOGLOBIN [id number] 00:00:00 Test Item Value Reference Range Interpretation Comments HEMOGLOBIN A1c (test code = 62161) 8.8 % CBC W/AUTO [id number] 00:00:00 Test Item Value Reference Range Interpretation [...] NUCLEATED RBCS (test code = 0.00 K/UL 52163) CBC W/AUTO [id number] 00:00:00 Test Item Value Reference Range Interpretation [...] NUCLEATED RBCS (test code = 0.00 K/UL 74209) COMPREHENSIVE METABOLIC [id number] 00:00:00 Test Item Value Reference Range Interpretation Comments GLUCOSE (test code = 2217) 166 MG/DL BUN (test code = 2208) 30 MG/DL CREATININE (test code = 2214) 1.31 MG/DL eGFR (2020 CKD-EPI) (test code 43 ML/MIN/1.73 = 16844) CALC BUN/CREAT (test code = 23 RATIO [...] (test code = 2219) 13 U/L HEMOGLOBIN [id number] 00:00:00 Test Item Value Reference Range Interpretation Comments HEMOGLOBIN A1c (test code = 82415) 8.8 % HEMOGLOBIN [id number] 00:00:00 Test Item Value Reference Range Interpretation Comments HEMOGLOBIN A1c (test code = 17389) 8.8 % HEMOGLOBIN [id number] 00:00:00 Test Item Value Reference Range Interpretation Comments HEMOGLOBIN A1c (test code = 46093) 8.8 % CBC W/AUTO [id number] 00:00:00 Test Item Value Reference Range Interpretation [...] NUCLEATED RBCS (test code = 0.00 K/UL 04390) CBC W/AUTO [id number] 00:00:00 Test Item Value Reference Range Interpretation [...] NUCLEATED RBCS (test code = 0.00 K/UL 90176) CBC W/AUTO [id number] 00:00:00 Test Item Value Reference Range Interpretation [...] NUCLEATED RBCS (test code = 0.00 K/UL 73464) COMPREHENSIVE METABOLIC [id number] 00:00:00 Test Item Value Reference Range Interpretation Comments GLUCOSE (test code = 2217) 166 MG/DL BUN (test code = 2208) 30 MG/DL CREATININE (test code = 2214) 1.31 MG/DL eGFR (2020 CKD-EPI) (test code 43 ML/MIN/1.73 = 78503) CALC BUN/CREAT (test code = 23 RATIO [...] code = 2219) 13 U/L COMPREHENSIVE METABOLIC [id number] 00:00:00 Test Item Value Reference Range Interpretation Comments GLUCOSE (test code = 2217) 166 MG/DL BUN (test code = 2208) 30 MG/DL CREATININE (test code = 2214) 1.31 MG/DL eGFR (2020 CKD-EPI) (test code 43 ML/MIN/1.73 = 20606) CALC BUN/CREAT (test code = 23 RATIO [...] (test code = 2219) 13 U/L HEMOGLOBIN [id number] 00:00:00 Test Item Value Reference Range Interpretation Comments HEMOGLOBIN A1c (test code = 60108) 8.8 % HEMOGLOBIN [id number] 00:00:00 Test Item Value Reference Range Interpretation Comments HEMOGLOBIN A1c (test code = 52772) 8.8 % HEMOGLOBIN [id number] 00:00:00 Test Item Value Reference Range Interpretation Comments HEMOGLOBIN A1c (test code = 08314) 8.8 % CBC W/AUTO [id number] 00:00:00 Test Item Value Reference Range Interpretation [...] NUCLEATED RBCS (test code = 0.00 K/UL 04294) CBC W/AUTO [id number] 00:00:00 Test Item Value Reference Range Interpretation [...] NUCLEATED RBCS (test code = 0.00 K/UL 39667) CBC W/AUTO [id number] 00:00:00 Test Item Value Reference Range Interpretation [...] NUCLEATED RBCS (test code = 0.00 K/UL 11033) COMPREHENSIVE METABOLIC [id number] 00:00:00 Test Item Value Reference Range Interpretation Comments GLUCOSE (test code = 2217) 166 MG/DL BUN (test code = 2208) 30 MG/DL CREATININE (test code = 2214) 1.31 MG/DL eGFR (2020 CKD-EPI) (test code 43 ML/MIN/1.73 = 41092) CALC BUN/CREAT (test code = 23 RATIO [...] RATIO 223) BILIRUBIN, TOTAL (test code = 0.4 MG/DL 2206) ALKALINE PHOSPHATASE (test 86 U/L code = 2204) AST (test code = 2218) 21 U/L ALT (test code = 2219) 13 U/L COMPREHENSIVE METABOLIC [id number] 00:00:00 Test Item Value Reference Range Interpretation Comments GLUCOSE (test code = 2217) 166 MG/DL BUN (test code = 2208) 30 MG/DL CREATININE (test code = 2214) 1.31 MG/DL eGFR (2020 CKD-EPI) (test code 43 ML/MIN/1.73 = 90920) CALC BUN/CREAT (test code = 23 RATIO [...] (test code = 2219) 13 U/L LIPID [id number] 00:00:00 Test Item Value Reference Range Interpretation Comments CHOLESTEROL (test code = 2210) 229 MG/DL TRIGLYCERIDES (test code = 2232) 246 MG/DL HDL CHOLESTEROL (test code = 2220) 48 MG/DL CALC LDL CHOL (test code = 2237) 141 MG/DL RISK RATIO LDL/HDL (test code = 2.94 RATIO 2238) LIPID [id number] 00:00:00 Test Item Value Reference Range Interpretation Comments CHOLESTEROL (test code = 2210) 229 MG/DL TRIGLYCERIDES (test code = 2232) 246 MG/DL HDL CHOLESTEROL (test code = 2220) 48 MG/DL CALC LDL CHOL (test code = 2237) 141 MG/DL RISK RATIO LDL/HDL (test code = 2.94 RATIO 2238) CBC W/AUTO [id number] 00:00:00 Test Item Value Reference Range Interpretation [...] NUCLEATED RBCS (test code = 0.00 K/UL 68544) CBC W/AUTO [id number] 00:00:00 Test Item Value Reference Range Interpretation [...] NUCLEATED RBCS (test code = 0.00 K/UL 16863) CBC W/AUTO [id number] 00:00:00 Test Item Value Reference Range Interpretation [...] NUCLEATED RBCS (test code = 0.00 K/UL 27051) HEMOGLOBIN [id number] 00:00:00 Test Item Value Reference Range Interpretation Comments HEMOGLOBIN A1c (test code = 52589) 9.1 % HEMOGLOBIN [id number] 00:00:00 Test Item Value Reference Range Interpretation Comments HEMOGLOBIN A1c (test code = 84353) 9.1 % HEMOGLOBIN [id number] 00:00:00 Test Item Value Reference Range Interpretation Comments HEMOGLOBIN A1c (test code = 54610) 9.1 % MICROALBUMIN/CREATININE, RANDOM AND [id number] 00:00:00 Test Item Value Reference Range Interpretation Comments CREATININE, URINE, CONC. (test 108.6 MG/DL code = 2072) ALBUMIN, URINE, RANDOM (test code 29.0 MG/DL = 52468) CALC ALBUMIN/CREAT, RND (test 267 MG/G code = 05225) MICROALBUMIN/CREATININE, RANDOM AND [id number] 00:00:00 Test Item Value Reference Range Interpretation Comments CREATININE, URINE, CONC. (test 108.6 MG/DL code = 2072) ALBUMIN, URINE, RANDOM (test code 29.0 MG/DL = 43399) CALC ALBUMIN/CREAT, RND (test 267 MG/G code = 64565) INTACT [id number] 00:00:00 Test Item Value Reference Range Interpretation Comments INTACT PTH (test code = 5005) 85 PG/ML INTACT [id number] 00:00:00 Test Item Value Reference Range Interpretation Comments INTACT PTH (test code = 5005) 85 PG/ML INTACT [id number] 00:00:00 Test Item Value Reference Range Interpretation Comments INTACT PTH (test code = 5005) 85 PG/ML LIPID [id number] 00:00:00 Test Item Value Reference Range Interpretation Comments CHOLESTEROL (test code = 2210) 229 MG/DL TRIGLYCERIDES (test code = 2232) 246 MG/DL HDL CHOLESTEROL (test code = 2220) 48 MG/DL CALC LDL CHOL (test code = 2237) 141 MG/DL RISK RATIO LDL/HDL (test code = 2.94 RATIO 2238) LIPID [id number] 00:00:00 Test Item Value Reference Range Interpretation Comments CHOLESTEROL (test code = 2210) 229 MG/DL TRIGLYCERIDES (test code = 2232) 246 MG/DL HDL CHOLESTEROL (test code = 2220) 48 MG/DL CALC LDL CHOL (test code = 2237) 141 MG/DL RISK RATIO LDL/HDL (test code = 2.94 RATIO 2238) LIPID [id number] 00:00:00 Test Item Value Reference Range Interpretation Comments CHOLESTEROL (test code = 2210) 229 MG/DL TRIGLYCERIDES (test code = 2232) 246 MG/DL HDL CHOLESTEROL (test code = 2220) 48 MG/DL CALC LDL CHOL (test code = 2237) 141 MG/DL RISK RATIO LDL/HDL (test code = 2.94 RATIO 2238) CBC W/AUTO [id number] 00:00:00 Test Item Value Reference Range Interpretation [...] NUCLEATED RBCS (test code = 0.00 K/UL 47830) CBC W/AUTO [id number] 00:00:00 Test Item Value Reference Range Interpretation [...] NUCLEATED RBCS (test code = 0.00 K/UL 80134) CBC W/AUTO [id number] 00:00:00 Test Item Value Reference Range Interpretation [...] NUCLEATED RBCS (test code = 0.00 K/UL 82994) HEMOGLOBIN [id number] 00:00:00 Test Item Value Reference Range Interpretation Comments HEMOGLOBIN A1c (test code = 47728) 9.1 % HEMOGLOBIN [id number] 00:00:00 Test Item Value Reference Range Interpretation Comments HEMOGLOBIN A1c (test code = 96549) 9.1 % HEMOGLOBIN [id number] 00:00:00 Test Item Value Reference Range Interpretation Comments HEMOGLOBIN A1c (test code = 93802) 9.1 % MICROALBUMIN/CREATININE, RANDOM AND [id number] 00:00:00 Test Item Value Reference Range Interpretation Comments CREATININE, URINE, CONC. (test 108.6 MG/DL code = 2072) ALBUMIN, URINE, RANDOM (test code 29.0 MG/DL = 21734) CALC ALBUMIN/CREAT, RND (test 267 MG/G code = 97557) MICROALBUMIN/CREATININE, RANDOM AND [id number] 00:00:00 Test Item Value Reference Range Interpretation Comments CREATININE, URINE, CONC. (test 108.6 MG/DL code = 2072) ALBUMIN, URINE, RANDOM (test code 29.0 MG/DL = 20768) CALC ALBUMIN/CREAT, RND (test 267 MG/G code = 67301) INTACT [id number] 00:00:00 Test Item Value Reference Range Interpretation Comments INTACT PTH (test code = 5005) 85 PG/ML INTACT [id number] 00:00:00 Test Item Value Reference Range Interpretation Comments INTACT PTH (test code = 5005) 85 PG/ML INTACT [id number] 00:00:00 Test Item Value Reference Range Interpretation Comments INTACT PTH (test code = 5005) 85 PG/ML CBC W/AUTO [id number] 00:00:00 Test Item Value Reference Range Interpretation [...] NUCLEATED RBCS (test code = 0.00 K/UL 56451) CBC W/AUTO [id number] 00:00:00 Test Item Value Reference Range Interpretation [...] NUCLEATED RBCS (test code = 0.00 K/UL 86819) HEMOGLOBIN [id number] 00:00:00 Test Item Value Reference Range Interpretation Comments HEMOGLOBIN A1c (test code = 00676) 9.1 % HEMOGLOBIN [id number] 00:00:00 Test Item Value Reference Range Interpretation Comments HEMOGLOBIN A1c (test code = 12942) 9.1 % LIPID [id number] 00:00:00 Test Item Value Reference Range Interpretation Comments CHOLESTEROL (test code = 2210) 229 MG/DL TRIGLYCERIDES (test code = 2232) 246 MG/DL HDL CHOLESTEROL (test code = 2220) 48 MG/DL CALC LDL CHOL (test code = 2237) 141 MG/DL RISK RATIO LDL/HDL (test code = 2.94 RATIO 2238) MICROALBUMIN/CREATININE, RANDOM AND [id number] 00:00:00 Test Item Value Reference Range Interpretation Comments CREATININE, URINE, CONC. (test 108.6 MG/DL code = 2072) ALBUMIN, URINE, RANDOM (test code 29.0 MG/DL = 19113) CALC ALBUMIN/CREAT, RND (test 267 MG/G code = 78148) LIPID [id number] 00:00:00 Test Item Value Reference Range Interpretation Comments CHOLESTEROL (test code = 2210) 229 MG/DL TRIGLYCERIDES (test code = 2232) 246 MG/DL HDL CHOLESTEROL (test code = 2220) 48 MG/DL CALC LDL CHOL (test code = 2237) 141 MG/DL RISK RATIO LDL/HDL (test code = 2.94 RATIO 2238) CBC W/AUTO [id number] 00:00:00 Test Item Value Reference Range Interpretation [...] NUCLEATED RBCS (test code = 0.00 K/UL 93431) CBC W/AUTO [id number] 00:00:00 Test Item Value Reference Range Interpretation [...] NUCLEATED RBCS (test code = 0.00 K/UL 79271) CBC W/AUTO [id number] 00:00:00 Test Item Value Reference Range Interpretation [...] NUCLEATED RBCS (test code = 0.00 K/UL 68288) HEMOGLOBIN [id number] 00:00:00 Test Item Value Reference Range Interpretation Comments HEMOGLOBIN A1c (test code = 53623) 9.1 % HEMOGLOBIN [id number] 00:00:00 Test Item Value Reference Range Interpretation Comments HEMOGLOBIN A1c (test code = 35313) 9.1 % HEMOGLOBIN [id number] 00:00:00 Test Item Value Reference Range Interpretation Comments HEMOGLOBIN A1c (test code = 47171) 9.1 % MICROALBUMIN/CREATININE, RANDOM AND [id number] 00:00:00 Test Item Value Reference Range Interpretation Comments CREATININE, URINE, CONC. (test 108.6 MG/DL code = 2072) ALBUMIN, URINE, RANDOM (test code 29.0 MG/DL = 78167) CALC ALBUMIN/CREAT, RND (test 267 MG/G code = 45425) MICROALBUMIN/CREATININE, RANDOM AND [id number] 00:00:00 Test Item Value Reference Range Interpretation Comments CREATININE, URINE, CONC. (test 108.6 MG/DL code = 2072) ALBUMIN, URINE, RANDOM (test code 29.0 MG/DL = 87051) CALC ALBUMIN/CREAT, RND (test 267 MG/G code = 92495) INTACT [id number] 00:00:00 Test Item Value Reference Range Interpretation Comments INTACT PTH (test code = 5005) 85 PG/ML INTACT [id number] 00:00:00 Test Item Value Reference Range Interpretation Comments INTACT PTH (test code = 5005) 85 PG/ML INTACT [id number] 00:00:00 Test Item Value Reference Range Interpretation Comments INTACT PTH (test code = 5005) 85 PG/ML INTACT [id number] 00:00:00 Test Item Value Reference Range Interpretation Comments INTACT PTH (test code = 5005) 85 PG/ML INTACT [id number] 00:00:00 Test Item Value Reference Range Interpretation Comments INTACT PTH (test code = 5005) 85 PG/ML LIPID [id number] 00:00:00 Test Item Value Reference Range Interpretation Comments CHOLESTEROL (test code = 2210) 229 MG/DL TRIGLYCERIDES (test code = 2232) 246 MG/DL HDL CHOLESTEROL (test code = 2220) 48 MG/DL CALC LDL CHOL (test code = 2237) 141 MG/DL RISK RATIO LDL/HDL (test code = 2.94 RATIO 2238) LIPID [id number] 00:00:00 Test Item Value Reference Range Interpretation Comments CHOLESTEROL (test code = 2210) 229 MG/DL TRIGLYCERIDES (test code = 2232) 246 MG/DL HDL CHOLESTEROL (test code = 2220) 48 MG/DL CALC LDL CHOL (test code = 2237) 141 MG/DL RISK RATIO LDL/HDL (test code = 2.94 RATIO 2238) CBC W/AUTO [id number] 00:00:00 Test Item Value Reference Range Interpretation [...] NUCLEATED RBCS (test code = 0.00 K/UL 74493) CBC W/AUTO [id number] 00:00:00 Test Item Value Reference Range Interpretation [...] NUCLEATED RBCS (test code = 0.00 K/UL 34748) CBC W/AUTO [id number] 00:00:00 Test Item Value Reference Range Interpretation [...] NUCLEATED RBCS (test code = 0.00 K/UL 79488) HEMOGLOBIN [id number] 00:00:00 Test Item Value Reference Range Interpretation Comments HEMOGLOBIN A1c (test code = 50849) 9.1 % HEMOGLOBIN [id number] 00:00:00 Test Item Value Reference Range Interpretation Comments HEMOGLOBIN A1c (test code = 97999) 9.1 % HEMOGLOBIN [id number] 00:00:00 Test Item Value Reference Range Interpretation Comments HEMOGLOBIN A1c (test code = 80859) 9.1 % MICROALBUMIN/CREATININE, RANDOM AND [id number] 00:00:00 Test Item Value Reference Range Interpretation Comments CREATININE, URINE, CONC. (test 108.6 MG/DL code = 2072) ALBUMIN, URINE, RANDOM (test code 29.0 MG/DL = 86072) CALC ALBUMIN/CREAT, RND (test 267 MG/G code = 32612) MICROALBUMIN/CREATININE, RANDOM AND [id number] 00:00:00 Test Item Value Reference Range Interpretation Comments CREATININE, URINE, CONC. (test 108.6 MG/DL code = 2072) ALBUMIN, URINE, RANDOM (test code 29.0 MG/DL = 06674) CALC ALBUMIN/CREAT, RND (test 267 MG/G code = 58589) INTACT [id number] 00:00:00 Test Item Value Reference Range Interpretation Comments INTACT PTH (test code = 5005) 85 PG/ML INTACT [id number] 00:00:00 Test Item Value Reference Range Interpretation Comments INTACT PTH (test code = 5005) 85 PG/ML INTACT [id number] 00:00:00 Test Item Value Reference Range Interpretation Comments INTACT PTH (test code = 5005) 85 PG/ML LIPID [id number] 00:00:00 Test Item Value Reference Range Interpretation Comments CHOLESTEROL (test code = 2210) 229 MG/DL TRIGLYCERIDES (test code = 2232) 246 MG/DL HDL CHOLESTEROL (test code = 2220) 48 MG/DL CALC LDL CHOL (test code = 2237) 141 MG/DL RISK RATIO LDL/HDL (test code = 2.94 RATIO 2238) CBC W/AUTO [id number] 00:00:00 Test Item Value Reference Range Interpretation [...] NUCLEATED RBCS (test code = 0.00 K/UL 14100) CBC W/AUTO [id number] 00:00:00 Test Item Value Reference Range Interpretation [...] NUCLEATED RBCS (test code = 0.00 K/UL 19207) HEMOGLOBIN [id number] 00:00:00 Test Item Value Reference Range Interpretation Comments HEMOGLOBIN A1c (test code = 12817) 9.1 % HEMOGLOBIN [id number] 00:00:00 Test Item Value Reference Range Interpretation Comments HEMOGLOBIN A1c (test code = 51948) 9.1 % MICROALBUMIN/CREATININE, RANDOM AND [id number] 00:00:00 Test Item Value Reference Range Interpretation Comments CREATININE, URINE, CONC. (test 108.6 MG/DL code = 2072) ALBUMIN, URINE, RANDOM (test code 29.0 MG/DL = 56606) CALC ALBUMIN/CREAT, RND (test 267 MG/G code = 58878) INTACT [id number] 00:00:00 Test Item Value Reference Range Interpretation Comments INTACT PTH (test code = 5005) 85 PG/ML INTACT [id number] 00:00:00 Test Item Value Reference Range Interpretation Comments INTACT PTH (test code = 5005) 85 PG/ML LIPID [id number] 00:00:00 Test Item Value Reference Range Interpretation Comments CHOLESTEROL (test code = 2210) 229 MG/DL TRIGLYCERIDES (test code = 2232) 246 MG/DL HDL CHOLESTEROL (test code = 2220) 48 MG/DL CALC LDL CHOL (test code = 2237) 141 MG/DL RISK RATIO LDL/HDL (test code = 2.94 RATIO 2238) LIPID [id number] 00:00:00 Test Item Value Reference Range Interpretation Comments CHOLESTEROL (test code = 2210) 229 MG/DL TRIGLYCERIDES (test code = 2232) 246 MG/DL HDL CHOLESTEROL (test code = 2220) 48 MG/DL CALC LDL CHOL (test code = 2237) 141 MG/DL RISK RATIO LDL/HDL (test code = 2.94 RATIO 2238) CBC W/AUTO [id number] 00:00:00 Test Item Value Reference Range Interpretation [...] NUCLEATED RBCS (test code = 0.00 K/UL 55913) CBC W/AUTO [id number] 00:00:00 Test Item Value Reference Range Interpretation [...] NUCLEATED RBCS (test code = 0.00 K/UL 33605) CBC W/AUTO [id number] 00:00:00 Test Item Value Reference Range Interpretation [...] NUCLEATED RBCS (test code = 0.00 K/UL 93284) HEMOGLOBIN [id number] 00:00:00 Test Item Value Reference Range Interpretation Comments HEMOGLOBIN A1c (test code = 52860) 9.1 % HEMOGLOBIN [id number] 00:00:00 Test Item Value Reference Range Interpretation Comments HEMOGLOBIN A1c (test code = 44091) 9.1 % HEMOGLOBIN [id number] 00:00:00 Test Item Value Reference Range Interpretation Comments HEMOGLOBIN A1c (test code = 26452) 9.1 % MICROALBUMIN/CREATININE, RANDOM AND [id number] 00:00:00 Test Item Value Reference Range Interpretation Comments CREATININE, URINE, CONC. (test 108.6 MG/DL code = 2072) ALBUMIN, URINE, RANDOM (test code 29.0 MG/DL = 48950) CALC ALBUMIN/CREAT, RND (test 267 MG/G code = 81710) MICROALBUMIN/CREATININE, RANDOM AND [id number] 00:00:00 Test Item Value Reference Range Interpretation Comments CREATININE, URINE, CONC. (test 108.6 MG/DL code = 2072) ALBUMIN, URINE, RANDOM (test code 29.0 MG/DL = 21655) CALC ALBUMIN/CREAT, RND (test 267 MG/G code = 85785) INTACT [id number] 00:00:00 Test Item Value Reference Range Interpretation Comments INTACT PTH (test code = 5005) 85 PG/ML INTACT [id number] 00:00:00 Test Item Value Reference Range Interpretation Comments INTACT PTH (test code = 5005) 85 PG/ML INTACT [id number] 00:00:00 Test Item Value Reference Range Interpretation Comments INTACT PTH (test code = 5005) 85 PG/ML LIPID [id number] 00:00:00 Test Item Value Reference Range Interpretation Comments CHOLESTEROL (test code = 2210) 229 MG/DL TRIGLYCERIDES (test code = 2232) 246 MG/DL HDL CHOLESTEROL (test code = 2220) 48 MG/DL CALC LDL CHOL (test code = 2237) 141 MG/DL RISK RATIO LDL/HDL (test code = 2.94 RATIO 2238) LIPID [id number] 00:00:00 Test Item Value Reference Range Interpretation Comments CHOLESTEROL (test code = 2210) 229 MG/DL TRIGLYCERIDES (test code = 2232) 246 MG/DL HDL CHOLESTEROL (test code = 2220) 48 MG/DL CALC LDL CHOL (test code = 2237) 141 MG/DL RISK RATIO LDL/HDL (test code = 2.94 RATIO 2238) CBC W/AUTO [id number] 00:00:00 Test Item Value Reference Range Interpretation [...] NUCLEATED RBCS (test code = 0.00 K/UL 91249) CBC W/AUTO [id number] 00:00:00 Test Item Value Reference Range Interpretation [...] NUCLEATED RBCS (test code = 0.00 K/UL 19959) CBC W/AUTO [id number] 00:00:00 Test Item Value Reference Range Interpretation [...] NUCLEATED RBCS (test code = 0.00 K/UL 99568) HEMOGLOBIN [id number] 00:00:00 Test Item Value Reference Range Interpretation Comments HEMOGLOBIN A1c (test code = 59151) 9.1 % HEMOGLOBIN [id number] 00:00:00 Test Item Value Reference Range Interpretation Comments HEMOGLOBIN A1c (test code = 11172) 9.1 % HEMOGLOBIN [id number] 00:00:00 Test Item Value Reference Range Interpretation Comments HEMOGLOBIN A1c (test code = 04396) 9.1 % MICROALBUMIN/CREATININE, RANDOM AND [id number] 00:00:00 Test Item Value Reference Range Interpretation Comments CREATININE, URINE, CONC. (test 108.6 MG/DL code = 2072) ALBUMIN, URINE, RANDOM (test code 29.0 MG/DL = 65302) CALC ALBUMIN/CREAT, RND (test 267 MG/G code = 82426) MICROALBUMIN/CREATININE, RANDOM AND [id number] 00:00:00 Test Item Value Reference Range Interpretation Comments CREATININE, URINE, CONC. (test 108.6 MG/DL code = 2072) ALBUMIN, URINE, RANDOM (test code 29.0 MG/DL = 26407) CALC ALBUMIN/CREAT, RND (test 267 MG/G code = 94494) INTACT [id number] 00:00:00 Test Item Value Reference Range Interpretation Comments INTACT PTH (test code = 5005) 85 PG/ML INTACT [id number] 00:00:00 Test Item Value Reference Range Interpretation Comments INTACT PTH (test code = 5005) 85 PG/ML INTACT [id number] 00:00:00 Test Item Value Reference Range Interpretation Comments INTACT PTH (test code = 5005) 85 PG/ML CULTURE, [id number] 00:00:00 Test Item Value Reference Range Interpretation Comments CULTURE, ROUTINE (test SPECIMEN NUMBER: code = 12332) [id number] CULTURE, [id number] 00:00:00 Test Item Value Reference Range Interpretation Comments CULTURE, ROUTINE (test SPECIMEN NUMBER: code = 39587) [id number] CULTURE, [id number] 00:00:00 Test Item Value Reference Range Interpretation Comments CULTURE, ROUTINE (test SPECIMEN NUMBER: code = 45687) [id number] CULTURE, [id number] 00:00:00 Test Item Value Reference Range Interpretation Comments CULTURE, ROUTINE (test SPECIMEN NUMBER: code = 17674) [id number] CULTURE, [id number] 00:00:00 Test Item Value Reference Range Interpretation Comments CULTURE, ROUTINE (test SPECIMEN NUMBER: code = 38197) [id number] CULTURE, [id number] 00:00:00 Test Item Value Reference Range Interpretation Comments CULTURE, ROUTINE (test SPECIMEN NUMBER: code = 04575) [id number] CULTURE, [id number] 00:00:00 Test Item Value Reference Range Interpretation Comments CULTURE, ROUTINE (test SPECIMEN NUMBER: code = 27438) [id number] CULTURE, [id number] 00:00:00 Test Item Value Reference Range Interpretation Comments CULTURE, ROUTINE (test SPECIMEN NUMBER: code = 20544) [id number] CULTURE, [id number] 00:00:00 Test Item Value Reference Range Interpretation Comments CULTURE, ROUTINE (test SPECIMEN NUMBER: code = 25983) [id number] CULTURE, [id number] 00:00:00 Test Item Value Reference Range Interpretation Comments CULTURE, ROUTINE (test SPECIMEN NUMBER: code = 30155) [id number] CULTURE, [id number] 00:00:00 Test Item Value Reference Range Interpretation Comments CULTURE, ROUTINE (test SPECIMEN NUMBER: code = 29650) [id number] CULTURE, [id number] 00:00:00 Test Item Value Reference Range Interpretation Comments CULTURE, ROUTINE (test SPECIMEN NUMBER: code = 96517) [id number] CULTURE, [id number] 00:00:00 Test Item Value Reference Range Interpretation Comments CULTURE, ROUTINE (test SPECIMEN NUMBER: code = 70853) [id number] CULTURE, [id number] 00:00:00 Test Item Value Reference Range Interpretation Comments CULTURE, ROUTINE (test SPECIMEN NUMBER: code = 33387) [id number] CULTURE, [id number] 00:00:00 Test Item Value Reference Range Interpretation Comments CULTURE, ROUTINE (test SPECIMEN NUMBER: code = 40791) [id number] CULTURE, [id number] 00:00:00 Test Item Value Reference Range Interpretation Comments CULTURE, ROUTINE (test SPECIMEN NUMBER: code = 72801) [id number] CULTURE, [id number] 00:00:00 Test Item Value Reference Range Interpretation Comments CULTURE, ROUTINE (test SPECIMEN NUMBER: code = 10725) [id number] CULTURE, [id number] 00:00:00 Test Item Value Reference Range Interpretation Comments CULTURE, ROUTINE (test SPECIMEN NUMBER: code = 83646) [id number] CULTURE, [id number] 00:00:00 Test Item Value Reference Range Interpretation Comments CULTURE, ROUTINE (test SPECIMEN NUMBER: code = 46126) [id number] CULTURE, [id number] 00:00:00 Test Item Value Reference Range Interpretation Comments CULTURE, ROUTINE (test SPECIMEN NUMBER: code = 02097) [id number] CULTURE, [id number] 00:00:00 Test Item Value Reference Range Interpretation Comments CULTURE, ROUTINE (test SPECIMEN NUMBER: code = 73782) [id number] CULTURE, [id number] 00:00:00 Test Item Value Reference Range Interpretation Comments CULTURE, ROUTINE (test SPECIMEN NUMBER: code = 70648) [id number] COMPREHENSIVE METABOLIC [id number] 00:00:00 Test Item Value Reference Range Interpretation Comments GLUCOSE (test code = 2217) 222 MG/DL BUN (test code = 2208) 27 MG/DL CREATININE (test code = 2214) 1.05 MG/DL eGFR AMER. (test code 61 ML/MIN/1.73 = 70478) eGFR NON- AMER. (test 53 ML/MIN/1.73 code = 32964) CALC BUN/CREAT (test code = 26 RATIO [...] code = 2219) 11 U/L COMPREHENSIVE METABOLIC [id number] 00:00:00 Test Item Value Reference Range Interpretation Comments GLUCOSE (test code = 2217) 222 MG/DL BUN (test code = 2208) 27 MG/DL CREATININE (test code = 2214) 1.05 MG/DL eGFR AMER. (test code 61 ML/MIN/1.73 = 33182) eGFR NON- AMER. (test 53 ML/MIN/1.73 code = 03006) CALC BUN/CREAT (test code = 26 RATIO [...] (test code = 2219) 11 U/L LIPID [id number] 00:00:00 Test Item Value Reference Range Interpretation Comments CHOLESTEROL (test code = 2210) 230 MG/DL TRIGLYCERIDES (test code = 2232) 414 MG/DL HDL CHOLESTEROL (test code = 51 MG/DL 2220) CALC LDL CHOL (test code = 2237) (NOTE) MG/DL RISK RATIO LDL/HDL (test code = (NOTE) RATIO 2238) LIPID [id number] 00:00:00 Test Item Value Reference Range Interpretation Comments CHOLESTEROL (test code = 2210) 230 MG/DL TRIGLYCERIDES (test code = 2232) 414 MG/DL HDL CHOLESTEROL (test code = 51 MG/DL 2220) CALC LDL CHOL (test code = 2237) (NOTE) MG/DL RISK RATIO LDL/HDL (test code = (NOTE) RATIO 2238) HEMOGLOBIN [id number] 00:00:00 Test Item Value Reference Range Interpretation Comments HEMOGLOBIN A1c (test code = 25696) 8.7 % HEMOGLOBIN [id number] 00:00:00 Test Item Value Reference Range Interpretation Comments HEMOGLOBIN A1c (test code = 61425) 8.7 % HEMOGLOBIN [id number] 00:00:00 Test Item Value Reference Range Interpretation Comments HEMOGLOBIN A1c (test code = 32082) 8.7 % COMPREHENSIVE METABOLIC [id number] 00:00:00 Test Item Value Reference Range Interpretation Comments GLUCOSE (test code = 2217) 222 MG/DL BUN (test code = 2208) 27 MG/DL CREATININE (test code = 2214) 1.05 MG/DL eGFR AMER. (test code 61 ML/MIN/1.73 = 37483) eGFR NON- AMER. (test 53 ML/MIN/1.73 code = 09824) CALC BUN/CREAT (test code = 26 RATIO [...] code = 2219) 11 U/L COMPREHENSIVE METABOLIC [id number] 00:00:00 Test Item Value Reference Range Interpretation Comments GLUCOSE (test code = 2217) 222 MG/DL BUN (test code = 2208) 27 MG/DL CREATININE (test code = 2214) 1.05 MG/DL eGFR AMER. (test code 61 ML/MIN/1.73 = 65688) eGFR NON- AMER. (test 53 ML/MIN/1.73 code = 68934) CALC BUN/CREAT (test code = 26 RATIO [...] code = 2219) 11 U/L COMPREHENSIVE METABOLIC [id number] 00:00:00 Test Item Value Reference Range Interpretation Comments GLUCOSE (test code = 2217) 222 MG/DL BUN (test code = 2208) 27 MG/DL CREATININE (test code = 2214) 1.05 MG/DL eGFR AMER. (test code 61 ML/MIN/1.73 = 75603) eGFR NON- AMER. (test 53 ML/MIN/1.73 code = 38469) CALC BUN/CREAT (test code = 26 RATIO [...] (test code = 2219) 11 U/L LIPID [id number] 00:00:00 Test Item Value Reference Range Interpretation Comments CHOLESTEROL (test code = 2210) 230 MG/DL TRIGLYCERIDES (test code = 2232) 414 MG/DL HDL CHOLESTEROL (test code = 51 MG/DL 2220) CALC LDL CHOL (test code = 2237) (NOTE) MG/DL RISK RATIO LDL/HDL (test code = (NOTE) RATIO 2238) LIPID [id number] 00:00:00 Test Item Value Reference Range Interpretation Comments CHOLESTEROL (test code = 2210) 230 MG/DL TRIGLYCERIDES (test code = 2232) 414 MG/DL HDL CHOLESTEROL (test code = 51 MG/DL 2220) CALC LDL CHOL (test code = 2237) (NOTE) MG/DL RISK RATIO LDL/HDL (test code = (NOTE) RATIO 2238) HEMOGLOBIN [id number] 00:00:00 Test Item Value Reference Range Interpretation Comments HEMOGLOBIN A1c (test code = 35887) 8.7 % LIPID [id number] 00:00:00 Test Item Value Reference Range Interpretation Comments CHOLESTEROL (test code = 2210) 230 MG/DL TRIGLYCERIDES (test code = 2232) 414 MG/DL HDL CHOLESTEROL (test code = 51 MG/DL 2220) CALC LDL CHOL (test code = 2237) (NOTE) MG/DL RISK RATIO LDL/HDL (test code = (NOTE) RATIO 2238) HEMOGLOBIN [id number] 00:00:00 Test Item Value Reference Range Interpretation Comments HEMOGLOBIN A1c (test code = 04763) 8.7 % HEMOGLOBIN [id number] 00:00:00 Test Item Value Reference Range Interpretation Comments HEMOGLOBIN A1c (test code = 27127) 8.7 % HEMOGLOBIN [id number] 00:00:00 Test Item Value Reference Range Interpretation Comments HEMOGLOBIN A1c (test code = 90291) 8.7 % HEMOGLOBIN [id number] 00:00:00 Test Item Value Reference Range Interpretation Comments HEMOGLOBIN A1c (test code = 11814) 8.7 % COMPREHENSIVE METABOLIC [id number] 00:00:00 Test Item Value Reference Range Interpretation Comments GLUCOSE (test code = 2217) 222 MG/DL BUN (test code = 2208) 27 MG/DL CREATININE (test code = 2214) 1.05 MG/DL eGFR AMER. (test code 61 ML/MIN/1.73 = 29627) eGFR NON- AMER. (test 53 ML/MIN/1.73 code = 04650) CALC BUN/CREAT (test code = 26 RATIO [...] code = 2219) 11 U/L COMPREHENSIVE METABOLIC [id number] 00:00:00 Test Item Value Reference Range Interpretation Comments GLUCOSE (test code = 2217) 222 MG/DL BUN (test code = 2208) 27 MG/DL CREATININE (test code = 2214) 1.05 MG/DL eGFR AMER. (test code 61 ML/MIN/1.73 = 01183) eGFR NON- AMER. (test 53 ML/MIN/1.73 code = 66232) CALC BUN/CREAT (test code = 26 RATIO [...] (test code = 2219) 11 U/L LIPID [id number] 00:00:00 Test Item Value Reference Range Interpretation Comments CHOLESTEROL (test code = 2210) 230 MG/DL TRIGLYCERIDES (test code = 2232) 414 MG/DL HDL CHOLESTEROL (test code = 51 MG/DL 2220) CALC LDL CHOL (test code = 2237) (NOTE) MG/DL RISK RATIO LDL/HDL (test code = (NOTE) RATIO 2238) LIPID [id number] 00:00:00 Test Item Value Reference Range Interpretation Comments CHOLESTEROL (test code = 2210) 230 MG/DL TRIGLYCERIDES (test code = 2232) 414 MG/DL HDL CHOLESTEROL (test code = 51 MG/DL 2220) CALC LDL CHOL (test code = 2237) (NOTE) MG/DL RISK RATIO LDL/HDL (test code = (NOTE) RATIO 2238) HEMOGLOBIN [id number] 00:00:00 Test Item Value Reference Range Interpretation Comments HEMOGLOBIN A1c (test code = 63287) 8.7 % HEMOGLOBIN [id number] 00:00:00 Test Item Value Reference Range Interpretation Comments HEMOGLOBIN A1c (test code = 64113) 8.7 % HEMOGLOBIN [id number] 00:00:00 Test Item Value Reference Range Interpretation Comments HEMOGLOBIN A1c (test code = 49492) 8.7 % COMPREHENSIVE METABOLIC [id number] 00:00:00 Test Item Value Reference Range Interpretation Comments GLUCOSE (test code = 2217) 222 MG/DL BUN (test code = 2208) 27 MG/DL CREATININE (test code = 2214) 1.05 MG/DL eGFR AMER. (test code 61 ML/MIN/1.73 = 89782) eGFR NON- AMER. (test 53 ML/MIN/1.73 code = 41190) CALC BUN/CREAT (test code = 26 RATIO [...] code = 2219) 11 U/L COMPREHENSIVE METABOLIC [id number] 00:00:00 Test Item Value Reference Range Interpretation Comments GLUCOSE (test code = 2217) 222 MG/DL BUN (test code = 2208) 27 MG/DL CREATININE (test code = 2214) 1.05 MG/DL eGFR AMER. (test code 61 ML/MIN/1.73 = 12843) eGFR NON- AMER. (test 53 ML/MIN/1.73 code = 91842) CALC BUN/CREAT (test code = 26 RATIO [...] (test code = 2219) 11 U/L LIPID [id number] 00:00:00 Test Item Value Reference Range Interpretation Comments CHOLESTEROL (test code = 2210) 230 MG/DL TRIGLYCERIDES (test code = 2232) 414 MG/DL HDL CHOLESTEROL (test code = 51 MG/DL 2220) CALC LDL CHOL (test code = 2237) (NOTE) MG/DL RISK RATIO LDL/HDL (test code = (NOTE) RATIO 2238) LIPID [id number] 00:00:00 Test Item Value Reference Range Interpretation Comments CHOLESTEROL (test code = 2210) 230 MG/DL TRIGLYCERIDES (test code = 2232) 414 MG/DL HDL CHOLESTEROL (test code = 51 MG/DL 2220) CALC LDL CHOL (test code = 2237) (NOTE) MG/DL RISK RATIO LDL/HDL (test code = (NOTE) RATIO 2238) HEMOGLOBIN [id number] 00:00:00 Test Item Value Reference Range Interpretation Comments HEMOGLOBIN A1c (test code = 62420) 8.7 % HEMOGLOBIN [id number] 00:00:00 Test Item Value Reference Range Interpretation Comments HEMOGLOBIN A1c (test code = 59135) 8.7 % HEMOGLOBIN [id number] 00:00:00 Test Item Value Reference Range Interpretation Comments HEMOGLOBIN A1c (test code = 90560) 8.7 % COMPREHENSIVE METABOLIC [id number] 00:00:00 Test Item Value Reference Range Interpretation Comments GLUCOSE (test code = 2217) 222 MG/DL BUN (test code = 2208) 27 MG/DL CREATININE (test code = 2214) 1.05 MG/DL eGFR AMER. (test code 61 ML/MIN/1.73 = 28347) eGFR NON- AMER. (test 53 ML/MIN/1.73 code = 08817) CALC BUN/CREAT (test code = 26 RATIO [...] (test code = 2219) 11 U/L LIPID [id number] 00:00:00 Test Item Value Reference Range Interpretation Comments CHOLESTEROL (test code = 2210) 230 MG/DL TRIGLYCERIDES (test code = 2232) 414 MG/DL HDL CHOLESTEROL (test code = 51 MG/DL 2219) CALC LDL CHOL (test code = 2237) (NOTE) MG/DL RISK RATIO LDL/HDL (test code = (NOTE) RATIO 2238) HEMOGLOBIN [id number] 00:00:00 Test Item Value Reference Range Interpretation Comments HEMOGLOBIN A1c (test code = 75756) 8.7 % HEMOGLOBIN [id number] 00:00:00 Test Item Value Reference Range Interpretation Comments HEMOGLOBIN A1c (test code = 03667) 8.7 % COMPREHENSIVE METABOLIC [id number] 00:00:00 Test Item Value Reference Range Interpretation Comments GLUCOSE (test code = 2217) 222 MG/DL BUN (test code = 2208) 27 MG/DL CREATININE (test code = 2214) 1.05 MG/DL eGFR AMER. (test code 61 ML/MIN/1.73 = 64025) eGFR NON- AMER. (test 53 ML/MIN/1.73 code = 75946) CALC BUN/CREAT (test code = 26 RATIO [...] code = 2219) 11 U/L COMPREHENSIVE METABOLIC [id number] 00:00:00 Test Item Value Reference Range Interpretation Comments GLUCOSE (test code = 2217) 222 MG/DL BUN (test code = 2208) 27 MG/DL CREATININE (test code = 2214) 1.05 MG/DL eGFR AMER. (test code 61 ML/MIN/1.73 = 63583) eGFR NON- AMER. (test 53 ML/MIN/1.73 code = 74516) CALC BUN/CREAT (test code = 26 RATIO [...] (test code = 2219) 11 U/L LIPID [id number] 00:00:00 Test Item Value Reference Range Interpretation Comments CHOLESTEROL (test code = 2210) 230 MG/DL TRIGLYCERIDES (test code = 2232) 414 MG/DL HDL CHOLESTEROL (test code = 51 MG/DL 2220) CALC LDL CHOL (test code = 2237) (NOTE) MG/DL RISK RATIO LDL/HDL (test code = (NOTE) RATIO 2238) LIPID [id number] 00:00:00 Test Item Value Reference Range Interpretation Comments CHOLESTEROL (test code = 2210) 230 MG/DL TRIGLYCERIDES (test code = 2232) 414 MG/DL HDL CHOLESTEROL (test code = 51 MG/DL 2219) CALC LDL CHOL (test code = 2237) (NOTE) MG/DL RISK RATIO LDL/HDL (test code = (NOTE) RATIO 2238) HEMOGLOBIN [id number] 00:00:00 Test Item Value Reference Range Interpretation Comments HEMOGLOBIN A1c (test code = 97852) 8.7 % HEMOGLOBIN [id number] 00:00:00 Test Item Value Reference Range Interpretation Comments HEMOGLOBIN A1c (test code = 20045) 8.7 % HEMOGLOBIN [id number] 00:00:00 Test Item Value Reference Range Interpretation Comments HEMOGLOBIN A1c (test code = 43590) 8.7 % COMPREHENSIVE METABOLIC [id number] 00:00:00 Test Item Value Reference Range Interpretation Comments GLUCOSE (test code = 2217) 222 MG/DL BUN (test code = 8) 27 MG/DL CREATININE (test code = 2214) 1.05 MG/DL eGFR AMER. (test code 61 ML/MIN/1.73 = 49894) eGFR NON- AMER. (test 53 ML/MIN/1.73 code = 95356) CALC BUN/CREAT (test code = 26 RATIO [...] code = 2219) 11 U/L COMPREHENSIVE METABOLIC [id number] 00:00:00 Test Item Value Reference Range Interpretation Comments GLUCOSE (test code = 2217) 222 MG/DL BUN (test code = 2208) 27 MG/DL CREATININE (test code = 2214) 1.05 MG/DL eGFR AMER. (test code 61 ML/MIN/1.73 = 48692) eGFR NON- AMER. (test 53 ML/MIN/1.73 code = 33150) CALC BUN/CREAT (test code = 26 RATIO [...] (test code = 2219) 11 U/L LIPID [id number] 00:00:00 Test Item Value Reference Range Interpretation Comments CHOLESTEROL (test code = 2210) 230 MG/DL TRIGLYCERIDES (test code = 2232) 414 MG/DL HDL CHOLESTEROL (test code = 51 MG/DL 2220) CALC LDL CHOL (test code = 2237) (NOTE) MG/DL RISK RATIO LDL/HDL (test code = (NOTE) RATIO 2238) LIPID [id number] 00:00:00 Test Item Value Reference Range Interpretation Comments CHOLESTEROL (test code = 2210) 230 MG/DL TRIGLYCERIDES (test code = 2232) 414 MG/DL HDL CHOLESTEROL (test code = 51 MG/DL 2220) CALC LDL CHOL (test code = 2237) (NOTE) MG/DL RISK RATIO LDL/HDL (test code = (NOTE) RATIO 2238) HEMOGLOBIN [id number] 00:00:00 Test Item Value Reference Range Interpretation Comments HEMOGLOBIN A1c (test code = 92790) 8.7 % HEMOGLOBIN [id number] 00:00:00 Test Item Value Reference Range Interpretation Comments HEMOGLOBIN A1c (test code = 89176) 8.7 % HEMOGLOBIN [id number] 00:00:00 Test Item Value Reference Range Interpretation Comments HEMOGLOBIN A1c (test code = 05083) 8.7 % XR KNEE 3 VW [id number] 19:05:24HISTORY: ?Pain. FINDINGS: AP, lateral, oblique views [...] with minimal jointeffusion. [facility], Radiant Results Inft User - 10/14/2020 2:06 [...] degenerative arthritis of left knee with minimal [facility]teffusion[facility] 2020-10-14 19:04:18HISTORY: ?Pain. [...] joint.CONCLUSIONS: No acute fractureor dislocation in left ankle.[facility] H[facility] 3 VW LEFT 2020-10-14 19:03:08HISTORY: ?Pain. [...] fracture or dislocation in pelvis or left hip.[facility] [id number] 00:00:00 Test Item Value Reference Range Interpretation Comments VITAMIN D, 25 OH (test code = 4958) 18 NG/ML VITAMIN D, 25 [id number] 00:00:00 Test Item Value Reference Range Interpretation Comments VITAMIN D, 25 OH (test code = 4958) 18 NG/ML CULTURE, [id number] 00:00:00 Test Item Value Reference Range Interpretation Comments CULTURE, URINE (test SPECIMEN NUMBER: code = 16980) [id number] CULTURE, [id number] 00:00:00 Test Item Value Reference Range Interpretation Comments CULTURE, URINE (test SPECIMEN NUMBER: code = 95650) [id number] VITAMIN D, 25 [id number] 00:00:00 Test Item Value Reference Range Interpretation Comments VITAMIN D, 25 OH (test code = 4958) 18 NG/ML VITAMIN D, 25 [id number] 00:00:00 Test Item Value Reference Range Interpretation Comments VITAMIN D, 25 OH (test code = 4958) 18 NG/ML CULTURE, [id number] 00:00:00 Test Item Value Reference Range Interpretation Comments CULTURE, URINE (test SPECIMEN NUMBER: code = 08895) [id number] CULTURE, [id number] 00:00:00 Test Item Value Reference Range Interpretation Comments CULTURE, URINE (test SPECIMEN NUMBER: code = 58832) [id number] VITAMIN D, 25 [id number] 00:00:00 Test Item Value Reference Range Interpretation Comments VITAMIN D, 25 OH (test code = 4958) 18 NG/ML CULTURE, [id number] 00:00:00 Test Item Value Reference Range Interpretation Comments CULTURE, URINE (test SPECIMEN NUMBER: code = 23592) [id number] VITAMIN D, 25 [id number] 00:00:00 Test Item Value Reference Range Interpretation Comments VITAMIN D, 25 OH (test code = 4958) 18 NG/ML VITAMIN D, 25 [id number] 00:00:00 Test Item Value Reference Range Interpretation Comments VITAMIN D, 25 OH (test code = 4958) 18 NG/ML CULTURE, [id number] 00:00:00 Test Item Value Reference Range Interpretation Comments CULTURE, URINE (test SPECIMEN NUMBER: code = 72455) [id number] CULTURE, [id number] 00:00:00 Test Item Value Reference Range Interpretation Comments CULTURE, URINE (test SPECIMEN NUMBER: code = 25649) [id number] VITAMIN D, 25 [id number] 00:00:00 Test Item Value Reference Range Interpretation Comments VITAMIN D, 25 OH (test code = 4958) 18 NG/ML VITAMIN D, 25 [id number] 00:00:00 Test Item Value Reference Range Interpretation Comments VITAMIN D, 25 OH (test code = 4958) 18 NG/ML CULTURE, [id number] 00:00:00 Test Item Value Reference Range Interpretation Comments CULTURE, URINE (test SPECIMEN NUMBER: code = 10136) [id number] CULTURE, [id number] 00:00:00 Test Item Value Reference Range Interpretation Comments CULTURE, URINE (test SPECIMEN NUMBER: code = 68454) [id number] VITAMIN D, 25 [id number] 00:00:00 Test Item Value Reference Range Interpretation Comments VITAMIN D, 25 OH (test code = 4958) 18 NG/ML CULTURE, [id number] 00:00:00 Test Item Value Reference Range Interpretation Comments CULTURE, URINE (test SPECIMEN NUMBER: code = 64422) [id number] VITAMIN D, 25 [id number] 00:00:00 Test Item Value Reference Range Interpretation Comments VITAMIN D, 25 OH (test code = 4958) 18 NG/ML VITAMIN D, 25 [id number] 00:00:00 Test Item Value Reference Range Interpretation Comments VITAMIN D, 25 OH (test code = 4958) 18 NG/ML CULTURE, [id number] 00:00:00 Test Item Value Reference Range Interpretation Comments CULTURE, URINE (test SPECIMEN NUMBER: code = 61856) [id number] CULTURE, [id number] 00:00:00 Test Item Value Reference Range Interpretation Comments CULTURE, URINE (test SPECIMEN NUMBER: code = 08456) [id number] VITAMIN D, 25 [id number] 00:00:00 Test Item Value Reference Range Interpretation Comments VITAMIN D, 25 OH (test code = 4958) 18 NG/ML VITAMIN D, 25 [id number] 00:00:00 Test Item Value Reference Range Interpretation Comments VITAMIN D, 25 OH (test code = 4958) 18 NG/ML CULTURE, [id number] 00:00:00 Test Item Value Reference Range Interpretation Comments CULTURE, URINE (test SPECIMEN NUMBER: code = 40708) [id number] CULTURE, [id number] 00:00:00 Test Item Value Reference Range Interpretation Comments CULTURE, URINE (test SPECIMEN NUMBER: code = 34582) [id number] 00:00:00 Test Item Value Reference Range Interpretation Comments TSH, THIRD GENERATION (test code 2.450 UIU/ML = 2821) [id number] 00:00:00 Test Item Value Reference Range Interpretation Comments TSH, THIRD GENERATION (test code 2.450 UIU/ML = 2821) [id number] 00:00:00 Test Item Value Reference Range Interpretation Comments TSH, THIRD GENERATION (test code 2.450 UIU/ML = 2821) [id number] 00:00:00 Test Item Value Reference Range Interpretation Comments TSH, THIRD GENERATION (test code 2.450 UIU/ML = 2821) [id number] 00:00:00 Test Item Value Reference Range Interpretation Comments TSH, THIRD GENERATION (test code 2.450 UIU/ML = 2821) [id number] 00:00:00 Test Item Value Reference Range Interpretation Comments TSH, THIRD GENERATION (test code 2.450 UIU/ML = 2821) [id number] 00:00:00 Test Item Value Reference Range Interpretation Comments TSH, THIRD GENERATION (test code 2.450 UIU/ML = 2821) [id number] 00:00:00 Test Item Value Reference Range Interpretation Comments TSH, THIRD GENERATION (test code 2.450 UIU/ML = 2821) [id number] 00:00:00 Test Item Value Reference Range Interpretation Comments TSH, THIRD GENERATION (test code 2.450 UIU/ML = 2821) [id number] 00:00:00 Test Item Value Reference Range Interpretation Comments TSH, THIRD GENERATION (test code 2.450 UIU/ML = 2821) [id number] 00:00:00 Test Item Value Reference Range Interpretation Comments TSH, THIRD GENERATION (test code 2.450 UIU/ML = 2821) [id number] 00:00:00 Test Item Value Reference Range Interpretation Comments TSH, THIRD GENERATION (test code 2.450 UIU/ML = 2821) [id number] 00:00:00 Test Item Value Reference Range Interpretation Comments TSH, THIRD GENERATION (test code 2.450 UIU/ML = 2821) [id number] 00:00:00 Test Item Value Reference Range Interpretation Comments TSH, THIRD GENERATION (test code 2.450 UIU/ML = 2821) [id number] 00:00:00 Test Item Value Reference Range Interpretation Comments TSH, THIRD GENERATION (test code 2.450 UIU/ML = 2821) [id number] 00:00:00 Test Item Value Reference Range Interpretation Comments TSH, THIRD GENERATION (test code 2.450 UIU/ML = 2821) [id number] 00:00:00 Test Item Value Reference Range Interpretation Comments TSH, THIRD GENERATION (test code 2.450 UIU/ML = 2821) [id number] 00:00:00 Test Item Value Reference Range Interpretation Comments TSH, THIRD GENERATION (test code 2.450 UIU/ML = 2821) [id number] 00:00:00 Test Item Value Reference Range Interpretation Comments TSH, THIRD GENERATION (test code 2.450 UIU/ML = 2821) [id number] 00:00:00 Test Item Value Reference Range Interpretation Comments TSH, THIRD GENERATION (test code 2.450 UIU/ML = 2821) [id number] 00:00:00 Test Item Value Reference Range Interpretation Comments TSH, THIRD GENERATION (test code 2.450 UIU/ML = 2821) [id number] 00:00:00 Test Item Value Reference Range Interpretation Comments TSH, THIRD GENERATION (test code 2.450 UIU/ML = 2821) HEMOGLOBIN [id number] 00:00:00 Test Item Value Reference Range Interpretation Comments HEMOGLOBIN A1c (test code = 86469) 7.4 % HEMOGLOBIN [id number] 00:00:00 Test Item Value Reference Range Interpretation Comments HEMOGLOBIN A1c (test code = 54681) 7.4 % HEMOGLOBIN [id number] 00:00:00 Test Item Value Reference Range Interpretation Comments HEMOGLOBIN A1c (test code = 76312) 7.4 % HEMOGLOBIN [id number] 00:00:00 Test Item Value Reference Range Interpretation Comments HEMOGLOBIN A1c (test code = 02723) 7.4 % HEMOGLOBIN [id number] 00:00:00 Test Item Value Reference Range Interpretation Comments HEMOGLOBIN A1c (test code = 92065) 7.4 % HEMOGLOBIN [id number] 00:00:00 Test Item Value Reference Range Interpretation Comments HEMOGLOBIN A1c (test code = 81634) 7.4 % HEMOGLOBIN [id number] 00:00:00 Test Item Value Reference Range Interpretation Comments HEMOGLOBIN A1c (test code = 02746) 7.4 % HEMOGLOBIN [id number] 00:00:00 Test Item Value Reference Range Interpretation Comments HEMOGLOBIN A1c (test code = 51607) 7.4 % HEMOGLOBIN [id number] 00:00:00 Test Item Value Reference Range Interpretation Comments HEMOGLOBIN A1c (test code = 06558) 7.4 % HEMOGLOBIN [id number] 00:00:00 Test Item Value Reference Range Interpretation Comments HEMOGLOBIN A1c (test code = 21647) 7.4 % HEMOGLOBIN [id number] 00:00:00 Test Item Value Reference Range Interpretation Comments HEMOGLOBIN A1c (test code = 74289) 7.4 % HEMOGLOBIN [id number] 00:00:00 Test Item Value Reference Range Interpretation Comments HEMOGLOBIN A1c (test code = 34432) 7.4 % HEMOGLOBIN [id number] 00:00:00 Test Item Value Reference Range Interpretation Comments HEMOGLOBIN A1c (test code = 12860) 7.4 % HEMOGLOBIN [id number] 00:00:00 Test Item Value Reference Range Interpretation Comments HEMOGLOBIN A1c (test code = 85328) 7.4 % HEMOGLOBIN [id number] 00:00:00 Test Item Value Reference Range Interpretation Comments HEMOGLOBIN A1c (test code = 84635) 7.4 % HEMOGLOBIN [id number] 00:00:00 Test Item Value Reference Range Interpretation Comments HEMOGLOBIN A1c (test code = 75513) 7.4 % HEMOGLOBIN [id number] 00:00:00 Test Item Value Reference Range Interpretation Comments HEMOGLOBIN A1c (test code = 77357) 7.4 % HEMOGLOBIN [id number] 00:00:00 Test Item Value Reference Range Interpretation Comments HEMOGLOBIN A1c (test code = 79363) 7.4 % HEMOGLOBIN [id number] 00:00:00 Test Item Value Reference Range Interpretation Comments HEMOGLOBIN A1c (test code = 01938) 7.4 % HEMOGLOBIN [id number] 00:00:00 Test Item Value Reference Range Interpretation Comments HEMOGLOBIN A1c (test code = 07154) 7.4 % HEMOGLOBIN [id number] 00:00:00 Test Item Value Reference Range Interpretation Comments HEMOGLOBIN A1c (test code = 93056) 7.4 % HEMOGLOBIN [id number] 00:00:00 Test Item Value Reference Range Interpretation Comments HEMOGLOBIN A1c (test code = 89575) 7.4 % CBC W/AUTO [id number] 00:00:00 Test Item Value Reference Range Interpretation [...] code = 1015) 230 K/UL CBC W/AUTO [id number] 00:00:00 Test Item Value Reference Range Interpretation [...] code = 1015) 230 K/UL CBC W/AUTO [id number] 00:00:00 Test Item Value Reference Range Interpretation [...] code = 1015) 230 K/UL CBC W/AUTO [id number] 00:00:00 Test Item Value Reference Range Interpretation [...] code = 1015) 230 K/UL CBC W/AUTO [id number] 00:00:00 Test Item Value Reference Range Interpretation [...] code = 1015) 230 K/UL CBC W/AUTO [id number] 00:00:00 Test Item Value Reference Range Interpretation [...] code = 1015) 230 K/UL CBC W/AUTO [id number] 00:00:00 Test Item Value Reference Range Interpretation [...] code = 1015) 230 K/UL CBC W/AUTO [id number] 00:00:00 Test Item Value Reference Range Interpretation [...] code = 1015) 230 K/UL CBC W/AUTO [id number] 00:00:00 Test Item Value Reference Range Interpretation [...] code = 1015) 230 K/UL CBC W/AUTO [id number] 00:00:00 Test Item Value Reference Range Interpretation [...] code = 1015) 230 K/UL CBC W/AUTO [id number] 00:00:00 Test Item Value Reference Range Interpretation [...] code = 1015) 230 K/UL CBC W/AUTO [id number] 00:00:00 Test Item Value Reference Range Interpretation [...] code = 1015) 230 K/UL CBC W/AUTO [id number] 00:00:00 Test Item Value Reference Range Interpretation [...] code = 1015) 230 K/UL CBC W/AUTO [id number] 00:00:00 Test Item Value Reference Range Interpretation [...] code = 1015) 230 K/UL CBC W/AUTO [id number] 00:00:00 Test Item Value Reference Range Interpretation [...] code = 1015) 230 K/UL CBC W/AUTO [id number] 00:00:00 Test Item Value Reference Range Interpretation [...] code = 1015) 230 K/UL CBC W/AUTO [id number] 00:00:00 Test Item Value Reference Range Interpretation [...] code = 1015) 230 K/UL CBC W/AUTO [id number] 00:00:00 Test Item Value Reference Range Interpretation [...] code = 1015) 230 K/UL CBC W/AUTO [id number] 00:00:00 Test Item Value Reference Range Interpretation [...] code = 1015) 230 K/UL CBC W/AUTO [id number] 00:00:00 Test Item Value Reference Range Interpretation [...] code = 1015) 230 K/UL CBC W/AUTO [id number] 00:00:00 Test Item Value Reference Range Interpretation [...] code = 1015) 230 K/UL CBC W/AUTO [id number] 00:00:00 Test Item Value Reference Range Interpretation [...] (test code = 1015) 230 K/UL HEMOGLOBIN [id number] 00:00:00 Test Item Value Reference Range Interpretation Comments HEMOGLOBIN A1c (test code = 40574) 8.4 % HEMOGLOBIN [id number] 00:00:00 Test Item Value Reference Range Interpretation Comments HEMOGLOBIN A1c (test code = 06501) 8.4 % HEMOGLOBIN [id number] 00:00:00 Test Item Value Reference Range Interpretation Comments HEMOGLOBIN A1c (test code = 79528) 8.4 % COMPREHENSIVE METABOLIC [id number] 00:00:00 Test Item Value Reference Range Interpretation Comments GLUCOSE (test code = 2217) 204 MG/DL BUN (test code = 2208) 26 MG/DL CREATININE (test code = 2214) 1.21 MG/DL eGFR AMER. (test code 52 ML/MIN/1.73 = 07107) eGFR NON- AMER. (test 45 ML/MIN/1.73 code = 70537) CALC BUN/CREAT (test code = 21 RATIO [...] code = 2219) 8 U/L COMPREHENSIVE METABOLIC [id number] 00:00:00 Test Item Value Reference Range Interpretation Comments GLUCOSE (test code = 2217) 204 MG/DL BUN (test code = 2208) 26 MG/DL CREATININE (test code = 2214) 1.21 MG/DL eGFR AMER. (test code 52 ML/MIN/1.73 = 82612) eGFR NON- AMER. (test 45 ML/MIN/1.73 code = 51940) CALC BUN/CREAT (test code = 21 RATIO [...] (test code = 2219) 8 U/L LIPID [id number] 00:00:00 Test Item Value Reference Range Interpretation Comments CHOLESTEROL (test code = 2210) 184 MG/DL TRIGLYCERIDES (test code = 2232) 222 MG/DL HDL CHOLESTEROL (test code = 2220) 52 MG/DL CALC LDL CHOL (test code = 2237) 98 MG/DL RISK RATIO LDL/HDL (test code = 1.88 RATIO 2238) LIPID [id number] 00:00:00 Test Item Value Reference Range Interpretation Comments CHOLESTEROL (test code = 2210) 184 MG/DL TRIGLYCERIDES (test code = 2232) 222 MG/DL HDL CHOLESTEROL (test code = 2220) 52 MG/DL CALC LDL CHOL (test code = 2237) 98 MG/DL RISK RATIO LDL/HDL (test code = 1.88 RATIO 2238) HEMOGLOBIN [id number] 00:00:00 Test Item Value Reference Range Interpretation Comments HEMOGLOBIN A1c (test code = 74196) 8.4 % HEMOGLOBIN [id number] 00:00:00 Test Item Value Reference Range Interpretation Comments HEMOGLOBIN A1c (test code = 03660) 8.4 % HEMOGLOBIN [id number] 00:00:00 Test Item Value Reference Range Interpretation Comments HEMOGLOBIN A1c (test code = 88875) 8.4 % HEMOGLOBIN [id number] 00:00:00 Test Item Value Reference Range Interpretation Comments HEMOGLOBIN A1c (test code = 73057) 8.4 % HEMOGLOBIN [id number] 00:00:00 Test Item Value Reference Range Interpretation Comments HEMOGLOBIN A1c (test code = 33601) 8.4 % COMPREHENSIVE METABOLIC [id number] 00:00:00 Test Item Value Reference Range Interpretation Comments GLUCOSE (test code = 2217) 204 MG/DL BUN (test code = 2208) 26 MG/DL CREATININE (test code = 2214) 1.21 MG/DL eGFR AMER. (test code 52 ML/MIN/1.73 = 34138) eGFR NON- AMER. (test 45 ML/MIN/1.73 code = 46046) CALC BUN/CREAT (test code = 21 RATIO [...] = 0.3 MG/DL 2207) ALKALINE PHOSPHATASE (test 69 U/L code = 2204) AST (test code = 2218) 11 U/L ALT (test code = 2219) 8 U/L COMPREHENSIVE METABOLIC [id number] 00:00:00 Test Item Value Reference Range Interpretation Comments GLUCOSE (test code = 2217) 204 MG/DL BUN (test code = 2208) 26 MG/DL CREATININE (test code = 2214) 1.21 MG/DL eGFR AMER. (test code 52 ML/MIN/1.73 = 72058) eGFR NON- AMER. (test 45 ML/MIN/1.73 code = 72262) CALC BUN/CREAT (test code = 21 RATIO [...] = 0.3 MG/DL 2207) ALKALINE PHOSPHATASE (test 69 U/L code = 2204) AST (test code = 2218) 11 U/L ALT (test code = 2219) 8 U/L LIPID [id number] 00:00:00 Test Item Value Reference Range Interpretation Comments CHOLESTEROL (test code = 2210) 184 MG/DL TRIGLYCERIDES (test code = 2232) 222 MG/DL HDL CHOLESTEROL (test code = 2220) 52 MG/DL CALC LDL CHOL (test code = 2237) 98 MG/DL RISK RATIO LDL/HDL (test code = 1.88 RATIO 2238) LIPID [id number] 00:00:00 Test Item Value Reference Range Interpretation Comments CHOLESTEROL (test code = 2210) 184 MG/DL TRIGLYCERIDES (test code = 2232) 222 MG/DL HDL CHOLESTEROL (test code = 2220) 52 MG/DL CALC LDL CHOL (test code = 2237) 98 MG/DL RISK RATIO LDL/HDL (test code = 1.88 RATIO 2238) COMPREHENSIVE METABOLIC [id number] 00:00:00 Test Item Value Reference Range Interpretation Comments GLUCOSE (test code = 2217) 204 MG/DL BUN (test code = 2208) 26 MG/DL CREATININE (test code = 2214) 1.21 MG/DL eGFR AMER. (test code 52 ML/MIN/1.73 = 96759) eGFR NON- AMER. (test 45 ML/MIN/1.73 code = 02214) CALC BUN/CREAT (test code = 21 RATIO [...] (test code = 2219) 8 U/L HEMOGLOBIN [id number] 00:00:00 Test Item Value Reference Range Interpretation Comments HEMOGLOBIN A1c (test code = 42036) 8.4 % HEMOGLOBIN [id number] 00:00:00 Test Item Value Reference Range Interpretation Comments HEMOGLOBIN A1c (test code = 95448) 8.4 % HEMOGLOBIN [id number] 00:00:00 Test Item Value Reference Range Interpretation Comments HEMOGLOBIN A1c (test code = 05965) 8.4 % LIPID [id number] 00:00:00 Test Item Value Reference Range Interpretation Comments CHOLESTEROL (test code = 2210) 184 MG/DL TRIGLYCERIDES (test code = 2232) 222 MG/DL HDL CHOLESTEROL (test code = 2220) 52 MG/DL CALC LDL CHOL (test code = 2237) 98 MG/DL RISK RATIO LDL/HDL (test code = 1.88 RATIO 2238) COMPREHENSIVE METABOLIC [id number] 00:00:00 Test Item Value Reference Range Interpretation Comments GLUCOSE (test code = 2217) 204 MG/DL BUN (test code = 2208) 26 MG/DL CREATININE (test code = 2214) 1.21 MG/DL eGFR AMER. (test code 52 ML/MIN/1.73 = 43722) eGFR NON- AMER. (test 45 ML/MIN/1.73 code = 81756) CALC BUN/CREAT (test code = 21 RATIO [...] code = 2219) 8 U/L COMPREHENSIVE METABOLIC [id number] 00:00:00 Test Item Value Reference Range Interpretation Comments GLUCOSE (test code = 2217) 204 MG/DL BUN (test code = 2208) 26 MG/DL CREATININE (test code = 2214) 1.21 MG/DL eGFR AMER. (test code 52 ML/MIN/1.73 = 30162) eGFR NON- AMER. (test 45 ML/MIN/1.73 code = 54459) CALC BUN/CREAT (test code = 21 RATIO [...] (test code = 2219) 8 U/L LIPID [id number] 00:00:00 Test Item Value Reference Range Interpretation Comments CHOLESTEROL (test code = 2210) 184 MG/DL TRIGLYCERIDES (test code = 2232) 222 MG/DL HDL CHOLESTEROL (test code = 2220) 52 MG/DL CALC LDL CHOL (test code = 2237) 98 MG/DL RISK RATIO LDL/HDL (test code = 1.88 RATIO 2238) LIPID [id number] 00:00:00 Test Item Value Reference Range Interpretation Comments CHOLESTEROL (test code = 2210) 184 MG/DL TRIGLYCERIDES (test code = 2232) 222 MG/DL HDL CHOLESTEROL (test code = 2220) 52 MG/DL CALC LDL CHOL (test code = 2237) 98 MG/DL RISK RATIO LDL/HDL (test code = 1.88 RATIO 2238) HEMOGLOBIN [id number] 00:00:00 Test Item Value Reference Range Interpretation Comments HEMOGLOBIN A1c (test code = 44613) 8.4 % HEMOGLOBIN [id number] 00:00:00 Test Item Value Reference Range Interpretation Comments HEMOGLOBIN A1c (test code = 42713) 8.4 % HEMOGLOBIN [id number] 00:00:00 Test Item Value Reference Range Interpretation Comments HEMOGLOBIN A1c (test code = 46383) 8.4 % COMPREHENSIVE METABOLIC [id number] 00:00:00 Test Item Value Reference Range Interpretation Comments GLUCOSE (test code = 2217) 204 MG/DL BUN (test code = 2208) 26 MG/DL CREATININE (test code = 2214) 1.21 MG/DL eGFR AMER. (test code 52 ML/MIN/1.73 = 70199) eGFR NON- AMER. (test 45 ML/MIN/1.73 code = 34415) CALC BUN/CREAT (test code = 21 RATIO [...] code = 2219) 8 U/L COMPREHENSIVE METABOLIC [id number] 00:00:00 Test Item Value Reference Range Interpretation Comments GLUCOSE (test code = 2217) 204 MG/DL BUN (test code = 2208) 26 MG/DL CREATININE (test code = 2214) 1.21 MG/DL eGFR AMER. (test code 52 ML/MIN/1.73 = 80254) eGFR NON- AMER. (test 45 ML/MIN/1.73 code = 19276) CALC BUN/CREAT (test code = 21 RATIO [...] (test code = 2219) 8 U/L LIPID [id number] 00:00:00 Test Item Value Reference Range Interpretation Comments CHOLESTEROL (test code = 2210) 184 MG/DL TRIGLYCERIDES (test code = 2232) 222 MG/DL HDL CHOLESTEROL (test code = 2220) 52 MG/DL CALC LDL CHOL (test code = 2237) 98 MG/DL RISK RATIO LDL/HDL (test code = 1.88 RATIO 2238) LIPID [id number] 00:00:00 Test Item Value Reference Range Interpretation Comments CHOLESTEROL (test code = 2210) 184 MG/DL TRIGLYCERIDES (test code = 2232) 222 MG/DL HDL CHOLESTEROL (test code = 2220) 52 MG/DL CALC LDL CHOL (test code = 2237) 98 MG/DL RISK RATIO LDL/HDL (test code = 1.88 RATIO 2238) HEMOGLOBIN [id number] 00:00:00 Test Item Value Reference Range Interpretation Comments HEMOGLOBIN A1c (test code = 90506) 8.4 % HEMOGLOBIN [id number] 00:00:00 Test Item Value Reference Range Interpretation Comments HEMOGLOBIN A1c (test code = 35809) 8.4 % COMPREHENSIVE METABOLIC [id number] 00:00:00 Test Item Value Reference Range Interpretation Comments GLUCOSE (test code = 2217) 204 MG/DL BUN (test code = 2208) 26 MG/DL CREATININE (test code = 2214) 1.21 MG/DL eGFR AMER. (test code 52 ML/MIN/1.73 = 94689) eGFR NON- AMER. (test 45 ML/MIN/1.73 code = 68527) CALC BUN/CREAT (test code = 21 RATIO [...] (test code = 2219) 8 U/L LIPID [id number] 00:00:00 Test Item Value Reference Range Interpretation Comments CHOLESTEROL (test code = 2210) 184 MG/DL TRIGLYCERIDES (test code = 2232) 222 MG/DL HDL CHOLESTEROL (test code = 2220) 52 MG/DL CALC LDL CHOL (test code = 2237) 98 MG/DL RISK RATIO LDL/HDL (test code = 1.88 RATIO 2238) HEMOGLOBIN [id number] 00:00:00 Test Item Value Reference Range Interpretation Comments HEMOGLOBIN A1c (test code = 86891) 8.4 % HEMOGLOBIN [id number] 00:00:00 Test Item Value Reference Range Interpretation Comments HEMOGLOBIN A1c (test code = 06944) 8.4 % HEMOGLOBIN [id number] 00:00:00 Test Item Value Reference Range Interpretation Comments HEMOGLOBIN A1c (test code = 43290) 8.4 % COMPREHENSIVE METABOLIC [id number] 00:00:00 Test Item Value Reference Range Interpretation Comments GLUCOSE (test code = 2217) 204 MG/DL BUN (test code = 2208) 26 MG/DL CREATININE (test code = 2214) 1.21 MG/DL eGFR AMER. (test code 52 ML/MIN/1.73 = 90172) eGFR NON- AMER. (test 45 ML/MIN/1.73 code = 24106) CALC BUN/CREAT (test code = 21 RATIO [...] code = 2219) 8 U/L COMPREHENSIVE METABOLIC [id number] 00:00:00 Test Item Value Reference Range Interpretation Comments GLUCOSE (test code = 2217) 204 MG/DL BUN (test code = 2208) 26 MG/DL CREATININE (test code = 2214) 1.21 MG/DL eGFR AMER. (test code 52 ML/MIN/1.73 = 45955) eGFR NON- AMER. (test 45 ML/MIN/1.73 code = 62433) CALC BUN/CREAT (test code = 21 RATIO [...] (test code = 2219) 8 U/L LIPID [id number] 00:00:00 Test Item Value Reference Range Interpretation Comments CHOLESTEROL (test code = 2210) 184 MG/DL TRIGLYCERIDES (test code = 2232) 222 MG/DL HDL CHOLESTEROL (test code = 2220) 52 MG/DL CALC LDL CHOL (test code = 2237) 98 MG/DL RISK RATIO LDL/HDL (test code = 1.88 RATIO 2238) LIPID [id number] 00:00:00 Test Item Value Reference Range Interpretation Comments CHOLESTEROL (test code = 2210) 184 MG/DL TRIGLYCERIDES (test code = 2232) 222 MG/DL HDL CHOLESTEROL (test code = 2220) 52 MG/DL CALC LDL CHOL (test code = 2237) 98 MG/DL RISK RATIO LDL/HDL (test code = 1.88 RATIO 2238) HEMOGLOBIN [id number] 00:00:00 Test Item Value Reference Range Interpretation Comments HEMOGLOBIN A1c (test code = 45167) 8.4 % HEMOGLOBIN [id number] 00:00:00 Test Item Value Reference Range Interpretation Comments HEMOGLOBIN A1c (test code = 04162) 8.4 % HEMOGLOBIN [id number] 00:00:00 Test Item Value Reference Range Interpretation Comments HEMOGLOBIN A1c (test code = 58838) 8.4 % COMPREHENSIVE METABOLIC [id number] 00:00:00 Test Item Value Reference Range Interpretation Comments GLUCOSE (test code = 2217) 204 MG/DL BUN (test code = 2208) 26 MG/DL CREATININE (test code = 2214) 1.21 MG/DL eGFR AMER. (test code 52 ML/MIN/1.73 = 43343) eGFR NON- AMER. (test 45 ML/MIN/1.73 code = 06448) CALC BUN/CREAT (test code = 21 RATIO [...] code = 2219) 8 U/L COMPREHENSIVE METABOLIC [id number] 00:00:00 Test Item Value Reference Range Interpretation Comments GLUCOSE (test code = 2217) 204 MG/DL BUN (test code = 2208) 26 MG/DL CREATININE (test code = 2214) 1.21 MG/DL eGFR AMER. (test code 52 ML/MIN/1.73 = 60596) eGFR NON- AMER. (test 45 ML/MIN/1.73 code = 57208) CALC BUN/CREAT (test code = 21 RATIO [...] (test code = 2219) 8 U/L LIPID [id number] 00:00:00 Test Item Value Reference Range Interpretation Comments CHOLESTEROL (test code = 2210) 184 MG/DL TRIGLYCERIDES (test code = 2232) 222 MG/DL HDL CHOLESTEROL (test code = 2220) 52 MG/DL CALC LDL CHOL (test code = 2237) 98 MG/DL RISK RATIO LDL/HDL (test code = 1.88 RATIO 2238) LIPID [id number] 00:00:00 Test Item Value Reference Range Interpretation Comments CHOLESTEROL (test code = 2210) 184 MG/DL TRIGLYCERIDES (test code = 2232) 222 MG/DL HDL CHOLESTEROL (test code = 2220) 52 MG/DL CALC LDL CHOL (test code = 2237) 98 MG/DL RISK RATIO LDL/HDL (test code = 1.88 RATIO 2238) MICROALBUMIN/CREATININE, RANDOM AND [id number] 00:00:00 Test Item Value Reference Range Interpretation Comments CREATININE, URINE, CONC. (test 190.3 MG/DL code = 2072) ALBUMIN, URINE, RANDOM (test code 135.3 MG/DL = 81410) CALC ALBUMIN/CREAT, RND (test 711 MG/G code = 04142) MICROALBUMIN/CREATININE, RANDOM AND [id number] 00:00:00 Test Item Value Reference Range Interpretation Comments CREATININE, URINE, CONC. (test 190.3 MG/DL code = 2072) ALBUMIN, URINE, RANDOM (test code 135.3 MG/DL = 29633) CALC ALBUMIN/CREAT, RND (test 711 MG/G code = 46972) MICROALBUMIN/CREATININE, RANDOM AND [id number] 00:00:00 Test Item Value Reference Range Interpretation Comments CREATININE, URINE, CONC. (test 190.3 MG/DL code = 2072) ALBUMIN, URINE, RANDOM (test code 135.3 MG/DL = 45538) CALC ALBUMIN/CREAT, RND (test 711 MG/G code = 68493) MICROALBUMIN/CREATININE, RANDOM AND [id number] 00:00:00 Test Item Value Reference Range Interpretation Comments CREATININE, URINE, CONC. (test 190.3 MG/DL code = 2072) ALBUMIN, URINE, RANDOM (test code 135.3 MG/DL = 71190) CALC ALBUMIN/CREAT, RND (test 711 MG/G code = 88757) MICROALBUMIN/CREATININE, RANDOM AND [id number] 00:00:00 Test Item Value Reference Range Interpretation Comments CREATININE, URINE, CONC. (test 190.3 MG/DL code = 2072) ALBUMIN, URINE, RANDOM (test code 135.3 MG/DL = 05603) CALC ALBUMIN/CREAT, RND (test 711 MG/G code = 38937) MICROALBUMIN/CREATININE, RANDOM AND [id number] 00:00:00 Test Item Value Reference Range Interpretation Comments CREATININE, URINE, CONC. (test 190.3 MG/DL code = 2072) ALBUMIN, URINE, RANDOM (test code 135.3 MG/DL = 39279) CALC ALBUMIN/CREAT, RND (test 711 MG/G code = 02516) MICROALBUMIN/CREATININE, RANDOM AND [id number] 00:00:00 Test Item Value Reference Range Interpretation Comments CREATININE, URINE, CONC. (test 190.3 MG/DL code = 2072) ALBUMIN, URINE, RANDOM (test code 135.3 MG/DL = 82872) CALC ALBUMIN/CREAT, RND (test 711 MG/G code = 88059) MICROALBUMIN/CREATININE, RANDOM AND [id number] 00:00:00 Test Item Value Reference Range Interpretation Comments CREATININE, URINE, CONC. (test 190.3 MG/DL code = 2072) ALBUMIN, URINE, RANDOM (test code 135.3 MG/DL = 23814) CALC ALBUMIN/CREAT, RND (test 711 MG/G code = 83649) MICROALBUMIN/CREATININE, RANDOM AND [id number] 00:00:00 Test Item Value Reference Range Interpretation Comments CREATININE, URINE, CONC. (test 190.3 MG/DL code = 2072) ALBUMIN, URINE, RANDOM (test code 135.3 MG/DL = 82996) CALC ALBUMIN/CREAT, RND (test 711 MG/G code = 26860) MICROALBUMIN/CREATININE, RANDOM AND [id number] 00:00:00 Test Item Value Reference Range Interpretation Comments CREATININE, URINE, CONC. (test 190.3 MG/DL code = 2072) ALBUMIN, URINE, RANDOM (test code 135.3 MG/DL = 70924) CALC ALBUMIN/CREAT, RND (test 711 MG/G code = 33164) MICROALBUMIN/CREATININE, RANDOM AND [id number] 00:00:00 Test Item Value Reference Range Interpretation Comments CREATININE, URINE, CONC. (test 190.3 MG/DL code = 2072) ALBUMIN, URINE, RANDOM (test code 135.3 MG/DL = 47009) CALC ALBUMIN/CREAT, RND (test 711 MG/G code = 71285) MICROALBUMIN/CREATININE, RANDOM AND [id number] 00:00:00 Test Item Value Reference Range Interpretation Comments CREATININE, URINE, CONC. (test 190.3 MG/DL code = 2072) ALBUMIN, URINE, RANDOM (test code 135.3 MG/DL = 16347) CALC ALBUMIN/CREAT, RND (test 711 MG/G code = 20177) MICROALBUMIN/CREATININE, RANDOM AND [id number] 00:00:00 Test Item Value Reference Range Interpretation Comments CREATININE, URINE, CONC. (test 190.3 MG/DL code = 2072) ALBUMIN, URINE, RANDOM (test code 135.3 MG/DL = 31722) CALC ALBUMIN/CREAT, RND (test 711 MG/G code = 31759) MICROALBUMIN/CREATININE, RANDOM AND [id number] 00:00:00 Test Item Value Reference Range Interpretation Comments CREATININE, URINE, CONC. (test 190.3 MG/DL code = 2072) ALBUMIN, URINE, RANDOM (test code 135.3 MG/DL = 45543) CALC ALBUMIN/CREAT, RND (test 711 MG/G code = 68660) HEMOGLOBIN [id number] 00:00:00 Test Item Value Reference Range Interpretation Comments HEMOGLOBIN A1c (test code = 53057) 7.9 % HEMOGLOBIN [id number] 00:00:00 Test Item Value Reference Range Interpretation Comments HEMOGLOBIN A1c (test code = 33237) 7.9 % HEMOGLOBIN [id number] 00:00:00 Test Item Value Reference Range Interpretation Comments HEMOGLOBIN A1c (test code = 28239) 7.9 % LIPID [id number] 00:00:00 Test Item Value Reference Range Interpretation Comments CHOLESTEROL (test code = 2210) 227 MG/DL TRIGLYCERIDES (test code = 2232) 165 MG/DL HDL CHOLESTEROL (test code = 2220) 58 MG/DL CALC LDL CHOL (test code = 2237) 139 MG/DL RISK RATIO LDL/HDL (test code = 2.40 RATIO 2238) LIPID [id number] 00:00:00 Test Item Value Reference Range Interpretation Comments CHOLESTEROL (test code = 2210) 227 MG/DL TRIGLYCERIDES (test code = 2232) 165 MG/DL HDL CHOLESTEROL (test code = 2220) 58 MG/DL CALC LDL CHOL (test code = 2237) 139 MG/DL RISK RATIO LDL/HDL (test code = 2.40 RATIO 2238) COMPREHENSIVE METABOLIC [id number] 00:00:00 Test Item Value Reference Range Interpretation Comments GLUCOSE (test code = 2217) 103 MG/DL BUN (test code = 2208) 25 MG/DL CREATININE (test code = 2214) 1.30 MG/DL eGFR AMER. (test code 48 ML/MIN/1.73 = 80999) eGFR NON- AMER. (test 41 ML/MIN/1.73 code = 38736) CALC BUN/CREAT (test code = 19 RATIO [...] code = 2219) 12 U/L COMPREHENSIVE METABOLIC [id number] 00:00:00 Test Item Value Reference Range Interpretation Comments GLUCOSE (test code = 2217) 103 MG/DL BUN (test code = 2208) 25 MG/DL CREATININE (test code = 2214) 1.30 MG/DL eGFR AMER. (test code 48 ML/MIN/1.73 = 67559) eGFR NON- AMER. (test 41 ML/MIN/1.73 code = 65877) CALC BUN/CREAT (test code = 19 RATIO [...] = 0.4 MG/DL 7) ALKALINE PHOSPHATASE (test 79 U/L code = 2204) AST (test code = 2218) 16 U/L ALT (test code = 2219) 12 U/L HEMOGLOBIN [id number] 00:00:00 Test Item Value Reference Range Interpretation Comments HEMOGLOBIN A1c (test code = 70580) 7.9 % HEMOGLOBIN [id number] 00:00:00 Test Item Value Reference Range Interpretation Comments HEMOGLOBIN A1c (test code = 38598) 7.9 % HEMOGLOBIN [id number] 00:00:00 Test Item Value Reference Range Interpretation Comments HEMOGLOBIN A1c (test code = 39519) 7.9 % HEMOGLOBIN [id number] 00:00:00 Test Item Value Reference Range Interpretation Comments HEMOGLOBIN A1c (test code = 97136) 7.9 % HEMOGLOBIN [id number] 00:00:00 Test Item Value Reference Range Interpretation Comments HEMOGLOBIN A1c (test code = 47043) 7.9 % LIPID [id number] 00:00:00 Test Item Value Reference Range Interpretation Comments CHOLESTEROL (test code = 2210) 227 MG/DL TRIGLYCERIDES (test code = 2232) 165 MG/DL HDL CHOLESTEROL (test code = 2220) 58 MG/DL CALC LDL CHOL (test code = 2237) 139 MG/DL RISK RATIO LDL/HDL (test code = 2.40 RATIO 2238) LIPID [id number] 00:00:00 Test Item Value Reference Range Interpretation Comments CHOLESTEROL (test code = 2210) 227 MG/DL TRIGLYCERIDES (test code = 2232) 165 MG/DL HDL CHOLESTEROL (test code = 2220) 58 MG/DL CALC LDL CHOL (test code = 2237) 139 MG/DL RISK RATIO LDL/HDL (test code = 2.40 RATIO 2238) LIPID [id number] 00:00:00 Test Item Value Reference Range Interpretation Comments CHOLESTEROL (test code = 2210) 227 MG/DL TRIGLYCERIDES (test code = 2232) 165 MG/DL HDL CHOLESTEROL (test code = 2220) 58 MG/DL CALC LDL CHOL (test code = 2237) 139 MG/DL RISK RATIO LDL/HDL (test code = 2.40 RATIO 2238) COMPREHENSIVE METABOLIC [id number] 00:00:00 Test Item Value Reference Range Interpretation Comments GLUCOSE (test code = 2217) 103 MG/DL BUN (test code = 2208) 25 MG/DL CREATININE (test code = 2214) 1.30 MG/DL eGFR AMER. (test code 48 ML/MIN/1.73 = 15665) eGFR NON- AMER. (test 41 ML/MIN/1.73 code = 90080) CALC BUN/CREAT (test code = 19 RATIO 2235) SODIUM (test code = 2231) 141 MEQ/L POTASSIUM (test code = 2228) 5.0 MEQ/L CHLORIDE (test code = 2215) 104 MEQ/L CARBON DIOXIDE (test code = 21 MEQ/L 6) CALCIUM (test code = 2209) 10.3 MG/DL [...] code = 2219) 12 U/L COMPREHENSIVE METABOLIC [id number] 00:00:00 Test Item Value Reference Range Interpretation Comments GLUCOSE (test code = 2217) 103 MG/DL BUN (test code = 2208) 25 MG/DL CREATININE (test code = 2214) 1.30 MG/DL eGFR AMER. (test code 48 ML/MIN/1.73 = 59893) eGFR NON- AMER. (test 41 ML/MIN/1.73 code = 09392) CALC BUN/CREAT (test code = 19 RATIO 2235) SODIUM (test code = 2231) 141 MEQ/L POTASSIUM (test code = 2228) 5.0 MEQ/L CHLORIDE (test code = 2215) 104 MEQ/L CARBON DIOXIDE (test code = 21 MEQ/L 2205) CALCIUM (test code = 2209) 10.3 MG/DL PROTEIN, TOTAL (test code = 8.1 G/DL 9) ALBUMIN (test code = 2201) 4.5 G/DL CALC GLOBULIN (test code = 3.6 G/DL 2240) CALC A/G RATIO (test code = 1.3 RATIO 2234) BILIRUBIN, TOTAL (test code = 0.4 MG/DL 7) ALKALINE PHOSPHATASE (test 79 U/L code = 2204) AST (test code = 2218) 16 U/L ALT (test code = 2219) 12 U/L COMPREHENSIVE METABOLIC [id number] 00:00:00 Test Item Value Reference Range Interpretation Comments GLUCOSE (test code = 2217) 103 MG/DL BUN (test code = 2208) 25 MG/DL CREATININE (test code = 2214) 1.30 MG/DL eGFR AMER. (test code 48 ML/MIN/1.73 = 01147) eGFR NON- AMER. (test 41 ML/MIN/1.73 code = 16783) CALC BUN/CREAT (test code = 19 RATIO [...] (test code = 2219) 12 U/L HEMOGLOBIN [id number] 00:00:00 Test Item Value Reference Range Interpretation Comments HEMOGLOBIN A1c (test code = 05499) 7.9 % HEMOGLOBIN [id number] 00:00:00 Test Item Value Reference Range Interpretation Comments HEMOGLOBIN A1c (test code = 79707) 7.9 % HEMOGLOBIN [id number] 00:00:00 Test Item Value Reference Range Interpretation Comments HEMOGLOBIN A1c (test code = 49458) 7.9 % LIPID [id number] 00:00:00 Test Item Value Reference Range Interpretation Comments CHOLESTEROL (test code = 2210) 227 MG/DL TRIGLYCERIDES (test code = 2232) 165 MG/DL HDL CHOLESTEROL (test code = 2220) 58 MG/DL CALC LDL CHOL (test code = 2237) 139 MG/DL RISK RATIO LDL/HDL (test code = 2.40 RATIO 2238) LIPID [id number] 00:00:00 Test Item Value Reference Range Interpretation Comments CHOLESTEROL (test code = 2210) 227 MG/DL TRIGLYCERIDES (test code = 2232) 165 MG/DL HDL CHOLESTEROL (test code = 2220) 58 MG/DL CALC LDL CHOL (test code = 2237) 139 MG/DL RISK RATIO LDL/HDL (test code = 2.40 RATIO 2238) COMPREHENSIVE METABOLIC [id number] 00:00:00 Test Item Value Reference Range Interpretation Comments GLUCOSE (test code = 2217) 103 MG/DL BUN (test code = 2208) 25 MG/DL CREATININE (test code = 2214) 1.30 MG/DL eGFR AMER. (test code 48 ML/MIN/1.73 = 08790) eGFR NON- AMER. (test 41 ML/MIN/1.73 code = 97687) CALC BUN/CREAT (test code = 19 RATIO [...] code = 2219) 12 U/L COMPREHENSIVE METABOLIC [id number] 00:00:00 Test Item Value Reference Range Interpretation Comments GLUCOSE (test code = 2217) 103 MG/DL BUN (test code = 2208) 25 MG/DL CREATININE (test code = 2214) 1.30 MG/DL eGFR AMER. (test code 48 ML/MIN/1.73 = 16695) eGFR NON- AMER. (test 41 ML/MIN/1.73 code = 28883) CALC BUN/CREAT (test code = 19 RATIO [...] (test code = 2219) 12 U/L HEMOGLOBIN [id number] 00:00:00 Test Item Value Reference Range Interpretation Comments HEMOGLOBIN A1c (test code = 60009) 7.9 % HEMOGLOBIN [id number] 00:00:00 Test Item Value Reference Range Interpretation Comments HEMOGLOBIN A1c (test code = 00877) 7.9 % HEMOGLOBIN [id number] 00:00:00 Test Item Value Reference Range Interpretation Comments HEMOGLOBIN A1c (test code = 38219) 7.9 % LIPID [id number] 00:00:00 Test Item Value Reference Range Interpretation Comments CHOLESTEROL (test code = 2210) 227 MG/DL TRIGLYCERIDES (test code = 2232) 165 MG/DL HDL CHOLESTEROL (test code = 2220) 58 MG/DL CALC LDL CHOL (test code = 2237) 139 MG/DL RISK RATIO LDL/HDL (test code = 2.40 RATIO 2238) LIPID [id number] 00:00:00 Test Item Value Reference Range Interpretation Comments CHOLESTEROL (test code = 2210) 227 MG/DL TRIGLYCERIDES (test code = 2232) 165 MG/DL HDL CHOLESTEROL (test code = 2220) 58 MG/DL CALC LDL CHOL (test code = 2237) 139 MG/DL RISK RATIO LDL/HDL (test code = 2.40 RATIO 2238) COMPREHENSIVE METABOLIC [id number] 00:00:00 Test Item Value Reference Range Interpretation Comments GLUCOSE (test code = 2217) 103 MG/DL BUN (test code = 2208) 25 MG/DL CREATININE (test code = 2214) 1.30 MG/DL eGFR AMER. (test code 48 ML/MIN/1.73 = 08978) eGFR NON- AMER. (test 41 ML/MIN/1.73 code = 87222) CALC BUN/CREAT (test code = 19 RATIO [...] code = 2219) 12 U/L COMPREHENSIVE METABOLIC [id number] 00:00:00 Test Item Value Reference Range Interpretation Comments GLUCOSE (test code = 2217) 103 MG/DL BUN (test code = 2208) 25 MG/DL CREATININE (test code = 2214) 1.30 MG/DL eGFR AMER. (test code 48 ML/MIN/1.73 = 08822) eGFR NON- AMER. (test 41 ML/MIN/1.73 code = 14457) CALC BUN/CREAT (test code = 19 RATIO [...] (test code = 2219) 12 U/L HEMOGLOBIN [id number] 00:00:00 Test Item Value Reference Range Interpretation Comments HEMOGLOBIN A1c (test code = 53399) 7.9 % HEMOGLOBIN [id number] 00:00:00 Test Item Value Reference Range Interpretation Comments HEMOGLOBIN A1c (test code = 76674) 7.9 % LIPID [id number] 00:00:00 Test Item Value Reference Range Interpretation Comments CHOLESTEROL (test code = 2210) 227 MG/DL TRIGLYCERIDES (test code = 2232) 165 MG/DL HDL CHOLESTEROL (test code = 2220) 58 MG/DL CALC LDL CHOL (test code = 2237) 139 MG/DL RISK RATIO LDL/HDL (test code = 2.40 RATIO 2238) COMPREHENSIVE METABOLIC [id number] 00:00:00 Test Item Value Reference Range Interpretation Comments GLUCOSE (test code = 2217) 103 MG/DL BUN (test code = 2208) 25 MG/DL CREATININE (test code = 2214) 1.30 MG/DL eGFR AMER. (test code 48 ML/MIN/1.73 = 11748) eGFR NON- AMER. (test 41 ML/MIN/1.73 code = 48572) CALC BUN/CREAT (test code = 19 RATIO [...] CALC GLOBULIN (test code = 3.6 G/DL 0) CALC A/G RATIO (test code = 1.3 RATIO 2233) BILIRUBIN, TOTAL (test code = 0.4 MG/DL 2206) ALKALINE PHOSPHATASE (test 79 U/L code = 2204) AST (test code = 2218) 16 U/L ALT (test code = 2219) 12 U/L HEMOGLOBIN [id number] 00:00:00 Test Item Value Reference Range Interpretation Comments HEMOGLOBIN A1c (test code = 25756) 7.9 % HEMOGLOBIN [id number] 00:00:00 Test Item Value Reference Range Interpretation Comments HEMOGLOBIN A1c (test code = 78261) 7.9 % HEMOGLOBIN [id number] 00:00:00 Test Item Value Reference Range Interpretation Comments HEMOGLOBIN A1c (test code = 32828) 7.9 % LIPID [id number] 00:00:00 Test Item Value Reference Range Interpretation Comments CHOLESTEROL (test code = 2210) 227 MG/DL TRIGLYCERIDES (test code = 2232) 165 MG/DL HDL CHOLESTEROL (test code = 2220) 58 MG/DL CALC LDL CHOL (test code = 2237) 139 MG/DL RISK RATIO LDL/HDL (test code = 2.40 RATIO 2238) LIPID [id number] 00:00:00 Test Item Value Reference Range Interpretation Comments CHOLESTEROL (test code = 2210) 227 MG/DL TRIGLYCERIDES (test code = 2232) 165 MG/DL HDL CHOLESTEROL (test code = 2220) 58 MG/DL CALC LDL CHOL (test code = 2237) 139 MG/DL RISK RATIO LDL/HDL (test code = 2.40 RATIO 2238) COMPREHENSIVE METABOLIC [id number] 00:00:00 Test Item Value Reference Range Interpretation Comments GLUCOSE (test code = 2217) 103 MG/DL BUN (test code = 2208) 25 MG/DL CREATININE (test code = 2214) 1.30 MG/DL eGFR AMER. (test code 48 ML/MIN/1.73 = 93961) eGFR NON- AMER. (test 41 ML/MIN/1.73 code = 76176) CALC BUN/CREAT (test code = 19 RATIO [...] code = 2219) 12 U/L COMPREHENSIVE METABOLIC [id number] 00:00:00 Test Item Value Reference Range Interpretation Comments GLUCOSE (test code = 2217) 103 MG/DL BUN (test code = 2208) 25 MG/DL CREATININE (test code = 2214) 1.30 MG/DL eGFR AMER. (test code 48 ML/MIN/1.73 = 86746) eGFR NON- AMER. (test 41 ML/MIN/1.73 code = 26502) CALC BUN/CREAT (test code = 19 RATIO [...] (test code = 2219) 12 U/L HEMOGLOBIN [id number] 00:00:00 Test Item Value Reference Range Interpretation Comments HEMOGLOBIN A1c (test code = 02922) 7.9 % HEMOGLOBIN [id number] 00:00:00 Test Item Value Reference Range Interpretation Comments HEMOGLOBIN A1c (test code = 56787) 7.9 % HEMOGLOBIN [id number] 00:00:00 Test Item Value Reference Range Interpretation Comments HEMOGLOBIN A1c (test code = 59830) 7.9 % LIPID [id number] 00:00:00 Test Item Value Reference Range Interpretation Comments CHOLESTEROL (test code = 2210) 227 MG/DL TRIGLYCERIDES (test code = 2232) 165 MG/DL HDL CHOLESTEROL (test code = 2220) 58 MG/DL CALC LDL CHOL (test code = 2237) 139 MG/DL RISK RATIO LDL/HDL (test code = 2.40 RATIO 2238) LIPID [id number] 00:00:00 Test Item Value Reference Range Interpretation Comments CHOLESTEROL (test code = 2210) 227 MG/DL TRIGLYCERIDES (test code = 2232) 165 MG/DL HDL CHOLESTEROL (test code = 2220) 58 MG/DL CALC LDL CHOL (test code = 2237) 139 MG/DL RISK RATIO LDL/HDL (test code = 2.40 RATIO 2238) COMPREHENSIVE METABOLIC [id number] 00:00:00 Test Item Value Reference Range Interpretation Comments GLUCOSE (test code = 2217) 103 MG/DL BUN (test code = 2208) 25 MG/DL CREATININE (test code = 2214) 1.30 MG/DL eGFR AMER. (test code 48 ML/MIN/1.73 = 42892) eGFR NON- AMER. (test 41 ML/MIN/1.73 code = 22871) CALC BUN/CREAT (test code = 19 RATIO [...] code = 2219) 12 U/L COMPREHENSIVE METABOLIC [id number] 00:00:00 Test Item Value Reference Range Interpretation Comments GLUCOSE (test code = 2217) 103 MG/DL BUN (test code = 2208) 25 MG/DL CREATININE (test code = 2214) 1.30 MG/DL eGFR AMER. (test code 48 ML/MIN/1.73 = 32604) eGFR NON- AMER. (test 41 ML/MIN/1.73 code = 06225) CALC BUN/CREAT (test code = 19 RATIO [...] = 0.4 MG/DL 7) ALKALINE PHOSPHATASE (test 79 U/L code = 2204) AST (test code = 2218) 16 U/L ALT (test code = 2219) 12 U/L COMPREHENSIVE METABOLIC [id number] 00:00:00 Test Item Value Reference Range Interpretation Comments GLUCOSE (test code = 2217) 138 MG/DL BUN (test code = 2208) 33 MG/DL CREATININE (test code = 2214) 1.25 MG/DL eGFR AMER. (test code 50 ML/MIN/1.73 = 73821) eGFR NON- AMER. (test 43 ML/MIN/1.73 code = 24244) CALC BUN/CREAT (test code = 26 RATIO [...] code = 2219) 12 U/L COMPREHENSIVE METABOLIC [id number] 00:00:00 Test Item Value Reference Range Interpretation Comments GLUCOSE (test code = 2217) 138 MG/DL BUN (test code = 2208) 33 MG/DL CREATININE (test code = 2214) 1.25 MG/DL eGFR AMER. (test code 50 ML/MIN/1.73 = 20851) eGFR NON- AMER. (test 43 ML/MIN/1.73 code = 66059) CALC BUN/CREAT (test code = 26 RATIO [...] (test code = 2219) 12 U/L LIPID [id number] 00:00:00 Test Item Value Reference Range Interpretation Comments CHOLESTEROL (test code = 2210) 211 MG/DL TRIGLYCERIDES (test code = 2232) 245 MG/DL HDL CHOLESTEROL (test code = 2220) 52 MG/DL CALC LDL CHOL (test code = 2237) 122 MG/DL RISK RATIO LDL/HDL (test code = 2.35 RATIO 2238) LIPID [id number] 00:00:00 Test Item Value Reference Range Interpretation Comments CHOLESTEROL (test code = 2210) 211 MG/DL TRIGLYCERIDES (test code = 2232) 245 MG/DL HDL CHOLESTEROL (test code = 2220) 52 MG/DL CALC LDL CHOL (test code = 2237) 122 MG/DL RISK RATIO LDL/HDL (test code = 2.35 RATIO 2238) COMPREHENSIVE METABOLIC [id number] 00:00:00 Test Item Value Reference Range Interpretation Comments GLUCOSE (test code = 2217) 138 MG/DL BUN (test code = 2208) 33 MG/DL CREATININE (test code = 2214) 1.25 MG/DL eGFR AMER. (test code 50 ML/MIN/1.73 = 37065) eGFR NON- AMER. (test 43 ML/MIN/1.73 code = 74811) CALC BUN/CREAT (test code = 26 RATIO [...] code = 2219) 12 U/L COMPREHENSIVE METABOLIC [id number] 00:00:00 Test Item Value Reference Range Interpretation Comments GLUCOSE (test code = 2217) 138 MG/DL BUN (test code = 2208) 33 MG/DL CREATININE (test code = 2214) 1.25 MG/DL eGFR AMER. (test code 50 ML/MIN/1.73 = 57790) eGFR NON- AMER. (test 43 ML/MIN/1.73 code = 05529) CALC BUN/CREAT (test code = 26 RATIO [...] (test code = 2219) 12 U/L LIPID [id number] 00:00:00 Test Item Value Reference Range Interpretation Comments CHOLESTEROL (test code = 2210) 211 MG/DL TRIGLYCERIDES (test code = 2232) 245 MG/DL HDL CHOLESTEROL (test code = 2220) 52 MG/DL CALC LDL CHOL (test code = 2237) 122 MG/DL RISK RATIO LDL/HDL (test code = 2.35 RATIO 2238) LIPID [id number] 00:00:00 Test Item Value Reference Range Interpretation Comments CHOLESTEROL (test code = 2210) 211 MG/DL TRIGLYCERIDES (test code = 2232) 245 MG/DL HDL CHOLESTEROL (test code = 2220) 52 MG/DL CALC LDL CHOL (test code = 2237) 122 MG/DL RISK RATIO LDL/HDL (test code = 2.35 RATIO 2238) COMPREHENSIVE METABOLIC [id number] 00:00:00 Test Item Value Reference Range Interpretation Comments GLUCOSE (test code = 2217) 138 MG/DL BUN (test code = 2208) 33 MG/DL CREATININE (test code = 2214) 1.25 MG/DL eGFR AMER. (test code 50 ML/MIN/1.73 = 06613) eGFR NON- AMER. (test 43 ML/MIN/1.73 code = 09978) CALC BUN/CREAT (test code = 26 RATIO [...] (test code = 2219) 12 U/L LIPID [id number] 00:00:00 Test Item Value Reference Range Interpretation Comments CHOLESTEROL (test code = 2210) 211 MG/DL TRIGLYCERIDES (test code = 2232) 245 MG/DL HDL CHOLESTEROL (test code = 2220) 52 MG/DL CALC LDL CHOL (test code = 2237) 122 MG/DL RISK RATIO LDL/HDL (test code = 2.35 RATIO 2238) COMPREHENSIVE METABOLIC [id number] 00:00:00 Test Item Value Reference Range Interpretation Comments GLUCOSE (test code = 2217) 138 MG/DL BUN (test code = 2208) 33 MG/DL CREATININE (test code = 2214) 1.25 MG/DL eGFR AMER. (test code 50 ML/MIN/1.73 = 14909) eGFR NON- AMER. (test 43 ML/MIN/1.73 code = 91917) CALC BUN/CREAT (test code = 26 RATIO [...] code = 2219) 12 U/L COMPREHENSIVE METABOLIC [id number] 00:00:00 Test Item Value Reference Range Interpretation Comments GLUCOSE (test code = 2217) 138 MG/DL BUN (test code = 2208) 33 MG/DL CREATININE (test code = 2214) 1.25 MG/DL eGFR AMER. (test code 50 ML/MIN/1.73 = 19298) eGFR NON- AMER. (test 43 ML/MIN/1.73 code = 52832) CALC BUN/CREAT (test code = 26 RATIO [...] (test code = 2219) 12 U/L LIPID [id number] 00:00:00 Test Item Value Reference Range Interpretation Comments CHOLESTEROL (test code = 2210) 211 MG/DL TRIGLYCERIDES (test code = 2232) 245 MG/DL HDL CHOLESTEROL (test code = 2220) 52 MG/DL CALC LDL CHOL (test code = 2237) 122 MG/DL RISK RATIO LDL/HDL (test code = 2.35 RATIO 2238) LIPID [id number] 00:00:00 Test Item Value Reference Range Interpretation Comments CHOLESTEROL (test code = 2210) 211 MG/DL TRIGLYCERIDES (test code = 2232) 245 MG/DL HDL CHOLESTEROL (test code = 2220) 52 MG/DL CALC LDL CHOL (test code = 2237) 122 MG/DL RISK RATIO LDL/HDL (test code = 2.35 RATIO 2238) COMPREHENSIVE METABOLIC [id number] 00:00:00 Test Item Value Reference Range Interpretation Comments GLUCOSE (test code = 2217) 138 MG/DL BUN (test code = 2208) 33 MG/DL CREATININE (test code = 2214) 1.25 MG/DL eGFR AMER. (test code 50 ML/MIN/1.73 = 19018) eGFR NON- AMER. (test 43 ML/MIN/1.73 code = 52443) CALC BUN/CREAT (test code = 26 RATIO [...] code = 2219) 12 U/L COMPREHENSIVE METABOLIC [id number] 00:00:00 Test Item Value Reference Range Interpretation Comments GLUCOSE (test code = 2217) 138 MG/DL BUN (test code = 2208) 33 MG/DL CREATININE (test code = 2214) 1.25 MG/DL eGFR AMER. (test code 50 ML/MIN/1.73 = 94334) eGFR NON- AMER. (test 43 ML/MIN/1.73 code = 63169) CALC BUN/CREAT (test code = 26 RATIO [...] (test code = 2219) 12 U/L LIPID [id number] 00:00:00 Test Item Value Reference Range Interpretation Comments CHOLESTEROL (test code = 2210) 211 MG/DL TRIGLYCERIDES (test code = 2232) 245 MG/DL HDL CHOLESTEROL (test code = 2220) 52 MG/DL CALC LDL CHOL (test code = 2237) 122 MG/DL RISK RATIO LDL/HDL (test code = 2.35 RATIO 2238) LIPID [id number] 00:00:00 Test Item Value Reference Range Interpretation Comments CHOLESTEROL (test code = 2210) 211 MG/DL TRIGLYCERIDES (test code = 2232) 245 MG/DL HDL CHOLESTEROL (test code = 2220) 52 MG/DL CALC LDL CHOL (test code = 2237) 122 MG/DL RISK RATIO LDL/HDL (test code = 2.35 RATIO 2238) COMPREHENSIVE METABOLIC [id number] 00:00:00 Test Item Value Reference Range Interpretation Comments GLUCOSE (test code = 2217) 138 MG/DL BUN (test code = 2208) 33 MG/DL CREATININE (test code = 2214) 1.25 MG/DL eGFR AMER. (test code 50 ML/MIN/1.73 = 28024) eGFR NON- AMER. (test 43 ML/MIN/1.73 code = 78054) CALC BUN/CREAT (test code = 26 RATIO [...] (test code = 2219) 12 U/L LIPID [id number] 00:00:00 Test Item Value Reference Range Interpretation Comments CHOLESTEROL (test code = 2210) 211 MG/DL TRIGLYCERIDES (test code = 2232) 245 MG/DL HDL CHOLESTEROL (test code = 2220) 52 MG/DL CALC LDL CHOL (test code = 2237) 122 MG/DL RISK RATIO LDL/HDL (test code = 2.35 RATIO 2238) COMPREHENSIVE METABOLIC [id number] 00:00:00 Test Item Value Reference Range Interpretation Comments GLUCOSE (test code = 2217) 138 MG/DL BUN (test code = 2208) 33 MG/DL CREATININE (test code = 2214) 1.25 MG/DL eGFR AMER. (test code 50 ML/MIN/1.73 = 45785) eGFR NON- AMER. (test 43 ML/MIN/1.73 code = 62939) CALC BUN/CREAT (test code = 26 RATIO [...] code = 2219) 12 U/L COMPREHENSIVE METABOLIC [id number] 00:00:00 Test Item Value Reference Range Interpretation Comments GLUCOSE (test code = 2217) 138 MG/DL BUN (test code = 2208) 33 MG/DL CREATININE (test code = 2214) 1.25 MG/DL eGFR AMER. (test code 50 ML/MIN/1.73 = 83434) eGFR NON- AMER. (test 43 ML/MIN/1.73 code = 10366) CALC BUN/CREAT (test code = 26 RATIO [...] (test code = 2219) 12 U/L LIPID [id number] 00:00:00 Test Item Value Reference Range Interpretation Comments CHOLESTEROL (test code = 2210) 211 MG/DL TRIGLYCERIDES (test code = 2232) 245 MG/DL HDL CHOLESTEROL (test code = 2220) 52 MG/DL CALC LDL CHOL (test code = 2237) 122 MG/DL RISK RATIO LDL/HDL (test code = 2.35 RATIO 2238) LIPID [id number] 00:00:00 Test Item Value Reference Range Interpretation Comments CHOLESTEROL (test code = 2210) 211 MG/DL TRIGLYCERIDES (test code = 2232) 245 MG/DL HDL CHOLESTEROL (test code = 2220) 52 MG/DL CALC LDL CHOL (test code = 2237) 122 MG/DL RISK RATIO LDL/HDL (test code = 2.35 RATIO 2238) COMPREHENSIVE METABOLIC [id number] 00:00:00 Test Item Value Reference Range Interpretation Comments GLUCOSE (test code = 2217) 138 MG/DL BUN (test code = 2208) 33 MG/DL CREATININE (test code = 2214) 1.25 MG/DL eGFR AMER. (test code 50 ML/MIN/1.73 = 18770) eGFR NON- AMER. (test 43 ML/MIN/1.73 code = 44633) CALC BUN/CREAT (test code = 26 RATIO [...] code = 2219) 12 U/L COMPREHENSIVE METABOLIC [id number] 00:00:00 Test Item Value Reference Range Interpretation Comments GLUCOSE (test code = 2217) 138 MG/DL BUN (test code = 2208) 33 MG/DL CREATININE (test code = 2214) 1.25 MG/DL eGFR AMER. (test code 50 ML/MIN/1.73 = 64698) eGFR NON- AMER. (test 43 ML/MIN/1.73 code = 42985) CALC BUN/CREAT (test code = 26 RATIO [...] (test code = 2219) 12 U/L LIPID [id number] 00:00:00 Test Item Value Reference Range Interpretation Comments CHOLESTEROL (test code = 2210) 211 MG/DL TRIGLYCERIDES (test code = 2232) 245 MG/DL HDL CHOLESTEROL (test code = 2220) 52 MG/DL CALC LDL CHOL (test code = 2237) 122 MG/DL RISK RATIO LDL/HDL (test code = 2.35 RATIO 2238) LIPID [id number] 00:00:00 Test Item Value Reference Range Interpretation Comments CHOLESTEROL (test code = 2210) 211 MG/DL TRIGLYCERIDES (test code = 2232) 245 MG/DL HDL CHOLESTEROL (test code = 2220) 52 MG/DL CALC LDL CHOL (test code = 2237) 122 MG/DL RISK RATIO LDL/HDL (test code = 2.35 RATIO 2238) HEMOGLOBIN [id number] 00:00:00 Test Item Value Reference Range Interpretation Comments HEMOGLOBIN A1c (test code = 13058) 7.5 % HEMOGLOBIN [id number] 00:00:00 Test Item Value Reference Range Interpretation Comments HEMOGLOBIN A1c (test code = 16325) 7.5 % HEMOGLOBIN [id number] 00:00:00 Test Item Value Reference Range Interpretation Comments HEMOGLOBIN A1c (test code = 99850) 7.5 % HEMOGLOBIN [id number] 00:00:00 Test Item Value Reference Range Interpretation Comments HEMOGLOBIN A1c (test code = 05525) 7.5 % HEMOGLOBIN [id number] 00:00:00 Test Item Value Reference Range Interpretation Comments HEMOGLOBIN A1c (test code = 42512) 7.5 % HEMOGLOBIN [id number] 00:00:00 Test Item Value Reference Range Interpretation Comments HEMOGLOBIN A1c (test code = 03361) 7.5 % HEMOGLOBIN [id number] 00:00:00 Test Item Value Reference Range Interpretation Comments HEMOGLOBIN A1c (test code = 84254) 7.5 % HEMOGLOBIN [id number] 00:00:00 Test Item Value Reference Range Interpretation Comments HEMOGLOBIN A1c (test code = 47240) 7.5 % HEMOGLOBIN [id number] 00:00:00 Test Item Value Reference Range Interpretation Comments HEMOGLOBIN A1c (test code = 58887) 7.5 % HEMOGLOBIN [id number] 00:00:00 Test Item Value Reference Range Interpretation Comments HEMOGLOBIN A1c (test code = 98548) 7.5 % HEMOGLOBIN [id number] 00:00:00 Test Item Value Reference Range Interpretation Comments HEMOGLOBIN A1c (test code = 81000) 7.5 % HEMOGLOBIN [id number] 00:00:00 Test Item Value Reference Range Interpretation Comments HEMOGLOBIN A1c (test code = 32925) 7.5 % HEMOGLOBIN [id number] 00:00:00 Test Item Value Reference Range Interpretation Comments HEMOGLOBIN A1c (test code = 72007) 7.5 % HEMOGLOBIN [id number] 00:00:00 Test Item Value Reference Range Interpretation Comments HEMOGLOBIN A1c (test code = 70360) 7.5 % HEMOGLOBIN [id number] 00:00:00 Test Item Value Reference Range Interpretation Comments HEMOGLOBIN A1c (test code = 34098) 7.5 % HEMOGLOBIN [id number] 00:00:00 Test Item Value Reference Range Interpretation Comments HEMOGLOBIN A1c (test code = 30362) 7.5 % HEMOGLOBIN [id number] 00:00:00 Test Item Value Reference Range Interpretation Comments HEMOGLOBIN A1c (test code = 29021) 7.5 % HEMOGLOBIN [id number] 00:00:00 Test Item Value Reference Range Interpretation Comments HEMOGLOBIN A1c (test code = 68765) 7.5 % HEMOGLOBIN [id number] 00:00:00 Test Item Value Reference Range Interpretation Comments HEMOGLOBIN A1c (test code = 40308) 7.5 % HEMOGLOBIN [id number] 00:00:00 Test Item Value Reference Range Interpretation Comments HEMOGLOBIN A1c (test code = 62249) 7.5 % HEMOGLOBIN [id number] 00:00:00 Test Item Value Reference Range Interpretation Comments HEMOGLOBIN A1c (test code = 66590) 7.5 % HEMOGLOBIN [id number] 00:00:00 Test Item Value Reference Range Interpretation Comments HEMOGLOBIN A1c (test code = 75297) 7.5 % TROPONIN [id number] 00:00:00 Test Item Value Reference Range Interpretation Comments TROPONIN T (test code = 4017) <0.010 UG/L TROPONIN [id number] 00:00:00 Test Item Value Reference Range Interpretation Comments TROPONIN T (test code = 4017) <0.010 UG/L TROPONIN [id number] 00:00:00 Test Item Value Reference Range Interpretation Comments TROPONIN T (test code = 4017) <0.010 UG/L TROPONIN [id number] 00:00:00 Test Item Value Reference Range Interpretation Comments TROPONIN T (test code = 4017) <0.010 UG/L TROPONIN [id number] 00:00:00 Test Item Value Reference Range Interpretation Comments TROPONIN T (test code = 4017) <0.010 UG/L TROPONIN [id number] 00:00:00 Test Item Value Reference Range Interpretation Comments TROPONIN T (test code = 4017) <0.010 UG/L TROPONIN [id number] 00:00:00 Test Item Value Reference Range Interpretation Comments TROPONIN T (test code = 4017) <0.010 UG/L TROPONIN [id number] 00:00:00 Test Item Value Reference Range Interpretation Comments TROPONIN T (test code = 4017) <0.010 UG/L TROPONIN [id number] 00:00:00 Test Item Value Reference Range Interpretation Comments TROPONIN T (test code = 4017) <0.010 UG/L TROPONIN [id number] 00:00:00 Test Item Value Reference Range Interpretation Comments TROPONIN T (test code = 4017) <0.010 UG/L TROPONIN [id number] 00:00:00 Test Item Value Reference Range Interpretation Comments TROPONIN T (test code = 4017) <0.010 UG/L TROPONIN [id number] 00:00:00 Test Item Value Reference Range Interpretation Comments TROPONIN T (test code = 4017) <0.010 UG/L TROPONIN [id number] 00:00:00 Test Item Value Reference Range Interpretation Comments TROPONIN T (test code = 4017) <0.010 UG/L TROPONIN [id number] 00:00:00 Test Item Value Reference Range Interpretation Comments TROPONIN T (test code = 4017) <0.010 UG/L COMPREHENSIVE METABOLIC [id number] 00:00:00 Test Item Value Reference Range Interpretation Comments GLUCOSE (test code = 2217) 68 MG/DL BUN (test code = 2208) 31 MG/DL CREATININE (test code = 2214) 1.10 MG/DL eGFR AMER. (test code 59 ML/MIN/1.73 = 49898) eGFR NON- AMER. (test 51 ML/MIN/1.73 code = 83576) CALC BUN/CREAT (test code = 28 RATIO [...] code = 2219) 9 U/L COMPREHENSIVE METABOLIC [id number] 00:00:00 Test Item Value Reference Range Interpretation Comments GLUCOSE (test code = 2217) 68 MG/DL BUN (test code = 2208) 31 MG/DL CREATININE (test code = 2214) 1.10 MG/DL eGFR AMER. (test code 59 ML/MIN/1.73 = 86524) eGFR NON- AMER. (test 51 ML/MIN/1.73 code = 79424) CALC BUN/CREAT (test code = 28 RATIO [...] code = 2219) 9 U/L CBC W/AUTO [id number] 00:00:00 Test Item Value Reference Range Interpretation [...] code = 1015) 249 K/UL CBC W/AUTO [id number] 00:00:00 Test Item Value Reference Range Interpretation [...] code = 1015) 249 K/UL CBC W/AUTO [id number] 00:00:00 Test Item Value Reference Range Interpretation [...] (test code = 1015) 249 K/UL CK, [id number] 00:00:00 Test Item Value Reference Range Interpretation Comments CK, TOTAL (test code = 2013) 67 U/L CK, [id number] 00:00:00 Test Item Value Reference Range Interpretation Comments CK, TOTAL (test code = 2013) 67 U/L COMPREHENSIVE METABOLIC [id number] 00:00:00 Test Item Value Reference Range Interpretation Comments GLUCOSE (test code = 2217) 68 MG/DL BUN (test code = 2208) 31 MG/DL CREATININE (test code = 2214) 1.10 MG/DL eGFR AMER. (test code 59 ML/MIN/1.73 = 80881) eGFR NON- AMER. (test 51 ML/MIN/1.73 code = 35721) CALC BUN/CREAT (test code = 28 RATIO [...] code = 2219) 9 U/L COMPREHENSIVE METABOLIC [id number] 00:00:00 Test Item Value Reference Range Interpretation Comments GLUCOSE (test code = 2217) 68 MG/DL BUN (test code = 2208) 31 MG/DL CREATININE (test code = 2214) 1.10 MG/DL eGFR AMER. (test code 59 ML/MIN/1.73 = 57060) eGFR NON- AMER. (test 51 ML/MIN/1.73 code = 35719) CALC BUN/CREAT (test code = 28 RATIO [...] code = 2219) 9 U/L COMPREHENSIVE METABOLIC [id number] 00:00:00 Test Item Value Reference Range Interpretation Comments GLUCOSE (test code = 2217) 68 MG/DL BUN (test code = 2208) 31 MG/DL CREATININE (test code = 2214) 1.10 MG/DL eGFR AMER. (test code 59 ML/MIN/1.73 = 34411) eGFR NON- AMER. (test 51 ML/MIN/1.73 code = 28950) CALC BUN/CREAT (test code = 28 RATIO [...] code = 2219) 9 U/L CBC W/AUTO [id number] 00:00:00 Test Item Value Reference Range Interpretation [...] code = 1015) 249 K/UL CBC W/AUTO [id number] 00:00:00 Test Item Value Reference Range Interpretation [...] code = 1015) 249 K/UL CBC W/AUTO [id number] 00:00:00 Test Item Value Reference Range Interpretation [...] (test code = 1015) 249 K/UL CK, [id number] 00:00:00 Test Item Value Reference Range Interpretation Comments CK, TOTAL (test code = 2013) 67 U/L CK, [id number] 00:00:00 Test Item Value Reference Range Interpretation Comments CK, TOTAL (test code = 2013) 67 U/L CBC W/AUTO [id number] 00:00:00 Test Item Value Reference Range Interpretation [...] code = 1015) 249 K/UL CBC W/AUTO [id number] 00:00:00 Test Item Value Reference Range Interpretation [...] (test code = 1015) 249 K/UL CK, [id number] 00:00:00 Test Item Value Reference Range Interpretation Comments CK, TOTAL (test code = 2013) 67 U/L COMPREHENSIVE METABOLIC [id number] 00:00:00 Test Item Value Reference Range Interpretation Comments GLUCOSE (test code = 2217) 68 MG/DL BUN (test code = 2208) 31 MG/DL CREATININE (test code = 2214) 1.10 MG/DL eGFR AMER. (test code 59 ML/MIN/1.73 = 88179) eGFR NON- AMER. (test 51 ML/MIN/1.73 code = 37189) CALC BUN/CREAT (test code = 28 RATIO [...] code = 2219) 9 U/L COMPREHENSIVE METABOLIC [id number] 00:00:00 Test Item Value Reference Range Interpretation Comments GLUCOSE (test code = 2217) 68 MG/DL BUN (test code = 2208) 31 MG/DL CREATININE (test code = 2214) 1.10 MG/DL eGFR AMER. (test code 59 ML/MIN/1.73 = 72662) eGFR NON- AMER. (test 51 ML/MIN/1.73 code = 02873) CALC BUN/CREAT (test code = 28 RATIO [...] code = 2219) 9 U/L CBC W/AUTO [id number] 00:00:00 Test Item Value Reference Range Interpretation [...] code = 1015) 249 K/UL CBC W/AUTO [id number] 00:00:00 Test Item Value Reference Range Interpretation [...] code = 1015) 249 K/UL CBC W/AUTO [id number] 00:00:00 Test Item Value Reference Range Interpretation [...] (test code = 1015) 249 K/UL CK, [id number] 00:00:00 Test Item Value Reference Range Interpretation Comments CK, TOTAL (test code = 2013) 67 U/L CK, [id number] 00:00:00 Test Item Value Reference Range Interpretation Comments CK, TOTAL (test code = 2013) 67 U/L COMPREHENSIVE METABOLIC [id number] 00:00:00 Test Item Value Reference Range Interpretation Comments GLUCOSE (test code = 2217) 68 MG/DL BUN (test code = 2208) 31 MG/DL CREATININE (test code = 2214) 1.10 MG/DL eGFR AMER. (test code 59 ML/MIN/1.73 = 69032) eGFR NON- AMER. (test 51 ML/MIN/1.73 code = 78922) CALC BUN/CREAT (test code = 28 RATIO [...] code = 2219) 9 U/L COMPREHENSIVE METABOLIC [id number] 00:00:00 Test Item Value Reference Range Interpretation Comments GLUCOSE (test code = 2217) 68 MG/DL BUN (test code = 2208) 31 MG/DL CREATININE (test code = 2214) 1.10 MG/DL eGFR AMER. (test code 59 ML/MIN/1.73 = 30542) eGFR NON- AMER. (test 51 ML/MIN/1.73 code = 43898) CALC BUN/CREAT (test code = 28 RATIO [...] code = 2219) 9 U/L CBC W/AUTO [id number] 00:00:00 Test Item Value Reference Range Interpretation [...] code = 1015) 249 K/UL CBC W/AUTO [id number] 00:00:00 Test Item Value Reference Range Interpretation [...] code = 1015) 249 K/UL CBC W/AUTO [id number] 00:00:00 Test Item Value Reference Range Interpretation [...] (test code = 1015) 249 K/UL CK, [id number] 00:00:00 Test Item Value Reference Range Interpretation Comments CK, TOTAL (test code = 2013) 67 U/L CK, [id number] 00:00:00 Test Item Value Reference Range Interpretation Comments CK, TOTAL (test code = 2013) 67 U/L COMPREHENSIVE METABOLIC [id number] 00:00:00 Test Item Value Reference Range Interpretation Comments GLUCOSE (test code = 2217) 68 MG/DL BUN (test code = 2208) 31 MG/DL CREATININE (test code = 2214) 1.10 MG/DL eGFR AMER. (test code 59 ML/MIN/1.73 = 27802) eGFR NON- AMER. (test 51 ML/MIN/1.73 code = 49479) CALC BUN/CREAT (test code = 28 RATIO [...] code = 2219) 9 U/L CBC W/AUTO [id number] 00:00:00 Test Item Value Reference Range Interpretation [...] code = 1015) 249 K/UL CBC W/AUTO [id number] 00:00:00 Test Item Value Reference Range Interpretation [...] (test code = 1015) 249 K/UL CK, [id number] 00:00:00 Test Item Value Reference Range Interpretation Comments CK, TOTAL (test code = 2013) 67 U/L COMPREHENSIVE METABOLIC [id number] 00:00:00 Test Item Value Reference Range Interpretation Comments GLUCOSE (test code = 2217) 68 MG/DL BUN (test code = 2208) 31 MG/DL CREATININE (test code = 2214) 1.10 MG/DL eGFR AMER. (test code 59 ML/MIN/1.73 = 83669) eGFR NON- AMER. (test 51 ML/MIN/1.73 code = 57947) CALC BUN/CREAT (test code = 28 RATIO [...] code = 2219) 9 U/L COMPREHENSIVE METABOLIC [id number] 00:00:00 Test Item Value Reference Range Interpretation Comments GLUCOSE (test code = 2217) 68 MG/DL BUN (test code = 2208) 31 MG/DL CREATININE (test code = 2214) 1.10 MG/DL eGFR AMER. (test code 59 ML/MIN/1.73 = 23501) eGFR NON- AMER. (test 51 ML/MIN/1.73 code = 52796) CALC BUN/CREAT (test code = 28 RATIO [...] code = 2219) 9 U/L CBC W/AUTO [id number] 00:00:00 Test Item Value Reference Range Interpretation [...] code = 1015) 249 K/UL CBC W/AUTO [id number] 00:00:00 Test Item Value Reference Range Interpretation [...] code = 1015) 249 K/UL CBC W/AUTO [id number] 00:00:00 Test Item Value Reference Range Interpretation [...] (test code = 1015) 249 K/UL CK, [id number] 00:00:00 Test Item Value Reference Range Interpretation Comments CK, TOTAL (test code = 2013) 67 U/L CK, [id number] 00:00:00 Test Item Value Reference Range Interpretation Comments CK, TOTAL (test code = 2013) 67 U/L COMPREHENSIVE METABOLIC [id number] 00:00:00 Test Item Value Reference Range Interpretation Comments GLUCOSE (test code = 2217) 68 MG/DL BUN (test code = 2208) 31 MG/DL CREATININE (test code = 2214) 1.10 MG/DL eGFR AMER. (test code 59 ML/MIN/1.73 = 87861) eGFR NON- AMER. (test 51 ML/MIN/1.73 code = 46269) CALC BUN/CREAT (test code = 28 RATIO [...] = 0.3 MG/DL 220) ALKALINE PHOSPHATASE (test 80 U/L code = 2204) AST (test code = 2218) 18 U/L ALT (test code = 2219) 9 U/L COMPREHENSIVE METABOLIC [id number] 00:00:00 Test Item Value Reference Range Interpretation Comments GLUCOSE (test code = 2217) 68 MG/DL BUN (test code = 2208) 31 MG/DL CREATININE (test code = 2214) 1.10 MG/DL eGFR AMER. (test code 59 ML/MIN/1.73 = 60398) eGFR NON- AMER. (test 51 ML/MIN/1.73 code = 73268) CALC BUN/CREAT (test code = 28 RATIO [...] = 0.3 MG/DL 7) ALKALINE PHOSPHATASE (test 80 U/L code = 2204) AST (test code = 2218) 18 U/L ALT (test code = 2219) 9 U/L CBC W/AUTO [id number] 00:00:00 Test Item Value Reference Range Interpretation [...] code = 1015) 249 K/UL CBC W/AUTO [id number] 00:00:00 Test Item Value Reference Range Interpretation [...] code = 1015) 249 K/UL CBC W/AUTO [id number] 00:00:00 Test Item Value Reference Range Interpretation [...] (test code = 1015) 249 K/UL CK, [id number] 00:00:00 Test Item Value Reference Range Interpretation Comments CK, TOTAL (test code = 2013) 67 U/L CK, [id number] 00:00:00 Test Item Value Reference Range Interpretation Comments CK, TOTAL (test code = 2013) 67 U/L COMPREHENSIVE METABOLIC [id number] 00:00:00 Test Item Value Reference Range Interpretation Comments GLUCOSE (test code = 2217) 222 MG/DL BUN (test code = 2208) 30 MG/DL CREATININE (test code = 2214) 1.26 MG/DL eGFR AMER. (test code 50 ML/MIN/1.73 = 03721) eGFR NON- AMER. (test 43 ML/MIN/1.73 code = 22730) CALC BUN/CREAT (test code = 24 RATIO [...] ALT (test code = 2219) 10 U/L [id number] 00:00:00 Test Item Value Reference Range Interpretation Comments TSH, THIRD GENERATION (test code 3.230 UIU/ML = 2821) [id number] 00:00:00 Test Item Value Reference Range Interpretation Comments TSH, THIRD GENERATION (test code 3.230 UIU/ML = 2821) [id number] 00:00:00 Test Item Value Reference Range Interpretation Comments TSH, THIRD GENERATION (test code 3.230 UIU/ML = 2821) CBC W/AUTO [id number] 00:00:00 Test Item Value Reference Range Interpretation [...] code = 1015) 277 K/UL CBC W/AUTO [id number] 00:00:00 Test Item Value Reference Range Interpretation [...] code = 1015) 277 K/UL CBC W/AUTO [id number] 00:00:00 Test Item Value Reference Range Interpretation [...] (test code = 1015) 277 K/UL VITAMIN [id number] 00:00:00 Test Item Value Reference Range Interpretation Comments VITAMIN B-12 (test code = 2840) 528 PG/ML VITAMIN [id number] 00:00:00 Test Item Value Reference Range Interpretation Comments VITAMIN B-12 (test code = 2840) 528 PG/ML VITAMIN [id number] 00:00:00 Test Item Value Reference Range Interpretation Comments VITAMIN B-12 (test code = 2840) 528 PG/ML HEMOGLOBIN [id number] 00:00:00 Test Item Value Reference Range Interpretation Comments HEMOGLOBIN A1c (test code = 40557) 7.4 % HEMOGLOBIN [id number] 00:00:00 Test Item Value Reference Range Interpretation Comments HEMOGLOBIN A1c (test code = 86294) 7.4 % HEMOGLOBIN [id number] 00:00:00 Test Item Value Reference Range Interpretation Comments HEMOGLOBIN A1c (test code = 55777) 7.4 % LIPID PANEL WITH REFLEX DIRECT [id number] 00:00:00 Test Item Value Reference Range Interpretation Comments CHOLESTEROL (test code = 2210) 211 MG/DL TRIGLYCERIDES (test code = 2232) 257 MG/DL HDL CHOLESTEROL (test code = 2220) 54 MG/DL CALC LDL CHOL (test code = 2237) 106 MG/DL RISK RATIO LDL/HDL (test code = 1.96 RATIO 2238) LIPID PANEL WITH REFLEX DIRECT [id number] 00:00:00 Test Item Value Reference Range Interpretation Comments CHOLESTEROL (test code = 2210) 211 MG/DL TRIGLYCERIDES (test code = 2232) 257 MG/DL HDL CHOLESTEROL (test code = 2220) 54 MG/DL CALC LDL CHOL (test code = 2237) 106 MG/DL RISK RATIO LDL/HDL (test code = 1.96 RATIO 2238) COMPREHENSIVE METABOLIC [id number] 00:00:00 Test Item Value Reference Range Interpretation Comments GLUCOSE (test code = 2217) 222 MG/DL BUN (test code = 2208) 30 MG/DL CREATININE (test code = 2214) 1.26 MG/DL eGFR AMER. (test code 50 ML/MIN/1.73 = 57821) eGFR NON- AMER. (test 43 ML/MIN/1.73 code = 75576) CALC BUN/CREAT (test code = 24 RATIO [...] code = 2219) 10 U/L COMPREHENSIVE METABOLIC [id number] 00:00:00 Test Item Value Reference Range Interpretation Comments GLUCOSE (test code = 2217) 222 MG/DL BUN (test code = 2208) 30 MG/DL CREATININE (test code = 2214) 1.26 MG/DL eGFR AMER. (test code 50 ML/MIN/1.73 = 28992) eGFR NON- AMER. (test 43 ML/MIN/1.73 code = 67088) CALC BUN/CREAT (test code = 24 RATIO [...] ALT (test code = 2219) 10 U/L [id number] 00:00:00 Test Item Value Reference Range Interpretation Comments TSH, THIRD GENERATION (test code 3.230 UIU/ML = 2821) [id number] 00:00:00 Test Item Value Reference Range Interpretation Comments TSH, THIRD GENERATION (test code 3.230 UIU/ML = 2821) [id number] 00:00:00 Test Item Value Reference Range Interpretation Comments TSH, THIRD GENERATION (test code 3.230 UIU/ML = 2821) [id number] 00:00:00 Test Item Value Reference Range Interpretation Comments TSH, THIRD GENERATION (test code 3.230 UIU/ML = 2821) [id number] 00:00:00 Test Item Value Reference Range Interpretation Comments TSH, THIRD GENERATION (test code 3.230 UIU/ML = 2821) CBC W/AUTO [id number] 00:00:00 Test Item Value Reference Range Interpretation [...] code = 1015) 277 K/UL CBC W/AUTO [id number] 00:00:00 Test Item Value Reference Range Interpretation [...] code = 1015) 277 K/UL CBC W/AUTO [id number] 00:00:00 Test Item Value Reference Range Interpretation [...] (test code = 1015) 277 K/UL VITAMIN [id number] 00:00:00 Test Item Value Reference Range Interpretation Comments VITAMIN B-12 (test code = 2840) 528 PG/ML VITAMIN [id number] 00:00:00 Test Item Value Reference Range Interpretation Comments VITAMIN B-12 (test code = 2840) 528 PG/ML VITAMIN [id number] 00:00:00 Test Item Value Reference Range Interpretation Comments VITAMIN B-12 (test code = 2840) 528 PG/ML HEMOGLOBIN [id number] 00:00:00 Test Item Value Reference Range Interpretation Comments HEMOGLOBIN A1c (test code = 45485) 7.4 % HEMOGLOBIN [id number] 00:00:00 Test Item Value Reference Range Interpretation Comments HEMOGLOBIN A1c (test code = 09235) 7.4 % HEMOGLOBIN [id number] 00:00:00 Test Item Value Reference Range Interpretation Comments HEMOGLOBIN A1c (test code = 06893) 7.4 % LIPID PANEL WITH REFLEX DIRECT [id number] 00:00:00 Test Item Value Reference Range Interpretation Comments CHOLESTEROL (test code = 2210) 211 MG/DL TRIGLYCERIDES (test code = 2232) 257 MG/DL HDL CHOLESTEROL (test code = 2220) 54 MG/DL CALC LDL CHOL (test code = 2237) 106 MG/DL RISK RATIO LDL/HDL (test code = 1.96 RATIO 2238) LIPID PANEL WITH REFLEX DIRECT [id number] 00:00:00 Test Item Value Reference Range Interpretation Comments CHOLESTEROL (test code = 2210) 211 MG/DL TRIGLYCERIDES (test code = 2232) 257 MG/DL HDL CHOLESTEROL (test code = 2220) 54 MG/DL CALC LDL CHOL (test code = 2237) 106 MG/DL RISK RATIO LDL/HDL (test code = 1.96 RATIO 2238) COMPREHENSIVE METABOLIC [id number] 00:00:00 Test Item Value Reference Range Interpretation Comments GLUCOSE (test code = 2217) 222 MG/DL BUN (test code = 2208) 30 MG/DL CREATININE (test code = 2214) 1.26 MG/DL eGFR AMER. (test code 50 ML/MIN/1.73 = 01659) eGFR NON- AMER. (test 43 ML/MIN/1.73 code = 97876) CALC BUN/CREAT (test code = 24 RATIO [...] code = 2219) 10 U/L COMPREHENSIVE METABOLIC [id number] 00:00:00 Test Item Value Reference Range Interpretation Comments GLUCOSE (test code = 2217) 222 MG/DL BUN (test code = 2208) 30 MG/DL CREATININE (test code = 2214) 1.26 MG/DL eGFR AMER. (test code 50 ML/MIN/1.73 = 26559) eGFR NON- AMER. (test 43 ML/MIN/1.73 code = 23887) CALC BUN/CREAT (test code = 24 RATIO [...] code = 2219) 10 U/L CBC W/AUTO [id number] 00:00:00 Test Item Value Reference Range Interpretation [...] code = 1015) 277 K/UL CBC W/AUTO [id number] 00:00:00 Test Item Value Reference Range Interpretation [...] (test code = 1015) 277 K/UL VITAMIN [id number] 00:00:00 Test Item Value Reference Range Interpretation Comments VITAMIN B-12 (test code = 2840) 528 PG/ML VITAMIN [id number] 00:00:00 Test Item Value Reference Range Interpretation Comments VITAMIN B-12 (test code = 2840) 528 PG/ML [id number] 00:00:00 Test Item Value Reference Range Interpretation Comments TSH, THIRD GENERATION (test code 3.230 UIU/ML = 2821) [id number] 00:00:00 Test Item Value Reference Range Interpretation Comments TSH, THIRD GENERATION (test code 3.230 UIU/ML = 2821) [id number] 00:00:00 Test Item Value Reference Range Interpretation Comments TSH, THIRD GENERATION (test code 3.230 UIU/ML = 2821) HEMOGLOBIN [id number] 00:00:00 Test Item Value Reference Range Interpretation Comments HEMOGLOBIN A1c (test code = 92568) 7.4 % CBC W/AUTO [id number] 00:00:00 Test Item Value Reference Range Interpretation [...] code = 1015) 277 K/UL CBC W/AUTO [id number] 00:00:00 Test Item Value Reference Range Interpretation [...] code = 1015) 277 K/UL CBC W/AUTO [id number] 00:00:00 Test Item Value Reference Range Interpretation [...] (test code = 1015) 277 K/UL HEMOGLOBIN [id number] 00:00:00 Test Item Value Reference Range Interpretation Comments HEMOGLOBIN A1c (test code = 69570) 7.4 % VITAMIN [id number] 00:00:00 Test Item Value Reference Range Interpretation Comments VITAMIN B-12 (test code = 2840) 528 PG/ML VITAMIN [id number] 00:00:00 Test Item Value Reference Range Interpretation Comments VITAMIN B-12 (test code = 2840) 528 PG/ML VITAMIN [id number] 00:00:00 Test Item Value Reference Range Interpretation Comments VITAMIN B-12 (test code = 2840) 528 PG/ML HEMOGLOBIN [id number] 00:00:00 Test Item Value Reference Range Interpretation Comments HEMOGLOBIN A1c (test code = 35462) 7.4 % HEMOGLOBIN [id number] 00:00:00 Test Item Value Reference Range Interpretation Comments HEMOGLOBIN A1c (test code = 11198) 7.4 % HEMOGLOBIN [id number] 00:00:00 Test Item Value Reference Range Interpretation Comments HEMOGLOBIN A1c (test code = 08777) 7.4 % LIPID PANEL WITH REFLEX DIRECT [id number] 00:00:00 Test Item Value Reference Range Interpretation Comments CHOLESTEROL (test code = 2210) 211 MG/DL TRIGLYCERIDES (test code = 2232) 257 MG/DL HDL CHOLESTEROL (test code = 2220) 54 MG/DL CALC LDL CHOL (test code = 2237) 106 MG/DL RISK RATIO LDL/HDL (test code = 1.96 RATIO 2238) LIPID PANEL WITH REFLEX DIRECT [id number] 00:00:00 Test Item Value Reference Range Interpretation Comments CHOLESTEROL (test code = 2210) 211 MG/DL TRIGLYCERIDES (test code = 2232) 257 MG/DL HDL CHOLESTEROL (test code = 2220) 54 MG/DL CALC LDL CHOL (test code = 2237) 106 MG/DL RISK RATIO LDL/HDL (test code = 1.96 RATIO 2238) LIPID PANEL WITH REFLEX DIRECT [id number] 00:00:00 Test Item Value Reference Range Interpretation Comments CHOLESTEROL (test code = 2210) 211 MG/DL TRIGLYCERIDES (test code = 2232) 257 MG/DL HDL CHOLESTEROL (test code = 2220) 54 MG/DL CALC LDL CHOL (test code = 2237) 106 MG/DL RISK RATIO LDL/HDL (test code = 1.96 RATIO 2238) COMPREHENSIVE METABOLIC [id number] 00:00:00 Test Item Value Reference Range Interpretation Comments GLUCOSE (test code = 2217) 222 MG/DL BUN (test code = 2208) 30 MG/DL CREATININE (test code = 2214) 1.26 MG/DL eGFR AMER. (test code 50 ML/MIN/1.73 = 07081) eGFR NON- AMER. (test 43 ML/MIN/1.73 code = 56164) CALC BUN/CREAT (test code = 24 RATIO [...] code = 2219) 10 U/L COMPREHENSIVE METABOLIC [id number] 00:00:00 Test Item Value Reference Range Interpretation Comments GLUCOSE (test code = 2217) 222 MG/DL BUN (test code = 2208) 30 MG/DL CREATININE (test code = 2214) 1.26 MG/DL eGFR AMER. (test code 50 ML/MIN/1.73 = 34884) eGFR NON- AMER. (test 43 ML/MIN/1.73 code = 51208) CALC BUN/CREAT (test code = 24 RATIO [...] code = 2219) 10 U/L COMPREHENSIVE METABOLIC [id number] 00:00:00 Test Item Value Reference Range Interpretation Comments GLUCOSE (test code = 2217) 222 MG/DL BUN (test code = 2208) 30 MG/DL CREATININE (test code = 2214) 1.26 MG/DL eGFR AMER. (test code 50 ML/MIN/1.73 = 99234) eGFR NON- AMER. (test 43 ML/MIN/1.73 code = 21101) CALC BUN/CREAT (test code = 24 RATIO [...] ALT (test code = 2219) 10 U/L [id number] 00:00:00 Test Item Value Reference Range Interpretation Comments TSH, THIRD GENERATION (test code 3.230 UIU/ML = 2821) [id number] 00:00:00 Test Item Value Reference Range Interpretation Comments TSH, THIRD GENERATION (test code 3.230 UIU/ML = 2821) [id number] 00:00:00 Test Item Value Reference Range Interpretation Comments TSH, THIRD GENERATION (test code 3.230 UIU/ML = 2821) CBC W/AUTO [id number] 00:00:00 Test Item Value Reference Range Interpretation [...] code = 1015) 277 K/UL CBC W/AUTO [id number] 00:00:00 Test Item Value Reference Range Interpretation [...] code = 1015) 277 K/UL CBC W/AUTO [id number] 00:00:00 Test Item Value Reference Range Interpretation [...] (test code = 1015) 277 K/UL VITAMIN [id number] 00:00:00 Test Item Value Reference Range Interpretation Comments VITAMIN B-12 (test code = 2840) 528 PG/ML VITAMIN [id number] 00:00:00 Test Item Value Reference Range Interpretation Comments VITAMIN B-12 (test code = 2840) 528 PG/ML VITAMIN [id number] 00:00:00 Test Item Value Reference Range Interpretation Comments VITAMIN B-12 (test code = 2840) 528 PG/ML HEMOGLOBIN [id number] 00:00:00 Test Item Value Reference Range Interpretation Comments HEMOGLOBIN A1c (test code = 00300) 7.4 % HEMOGLOBIN [id number] 00:00:00 Test Item Value Reference Range Interpretation Comments HEMOGLOBIN A1c (test code = 07945) 7.4 % HEMOGLOBIN [id number] 00:00:00 Test Item Value Reference Range Interpretation Comments HEMOGLOBIN A1c (test code = 63409) 7.4 % LIPID PANEL WITH REFLEX DIRECT [id number] 00:00:00 Test Item Value Reference Range Interpretation Comments CHOLESTEROL (test code = 2210) 211 MG/DL TRIGLYCERIDES (test code = 2232) 257 MG/DL HDL CHOLESTEROL (test code = 2220) 54 MG/DL CALC LDL CHOL (test code = 2237) 106 MG/DL RISK RATIO LDL/HDL (test code = 1.96 RATIO 2238) LIPID PANEL WITH REFLEX DIRECT [id number] 00:00:00 Test Item Value Reference Range Interpretation Comments CHOLESTEROL (test code = 2210) 211 MG/DL TRIGLYCERIDES (test code = 2232) 257 MG/DL HDL CHOLESTEROL (test code = 2220) 54 MG/DL CALC LDL CHOL (test code = 2237) 106 MG/DL RISK RATIO LDL/HDL (test code = 1.96 RATIO 2238) COMPREHENSIVE METABOLIC [id number] 00:00:00 Test Item Value Reference Range Interpretation Comments GLUCOSE (test code = 2217) 222 MG/DL BUN (test code = 2208) 30 MG/DL CREATININE (test code = 2214) 1.26 MG/DL eGFR AMER. (test code 50 ML/MIN/1.73 = 02384) eGFR NON- AMER. (test 43 ML/MIN/1.73 code = 20477) CALC BUN/CREAT (test code = 24 RATIO [...] code = 2219) 10 U/L COMPREHENSIVE METABOLIC [id number] 00:00:00 Test Item Value Reference Range Interpretation Comments GLUCOSE (test code = 2217) 222 MG/DL BUN (test code = 2208) 30 MG/DL CREATININE (test code = 2214) 1.26 MG/DL eGFR AMER. (test code 50 ML/MIN/1.73 = 45937) eGFR NON- AMER. (test 43 ML/MIN/1.73 code = 66776) CALC BUN/CREAT (test code = 24 RATIO [...] ALT (test code = 2219) 10 U/L [id number] 00:00:00 Test Item Value Reference Range Interpretation Comments TSH, THIRD GENERATION (test code 3.230 UIU/ML = 2821) [id number] 00:00:00 Test Item Value Reference Range Interpretation Comments TSH, THIRD GENERATION (test code 3.230 UIU/ML = 2821) CBC W/AUTO [id number] 00:00:00 Test Item Value Reference Range Interpretation [...] code = 1015) 277 K/UL CBC W/AUTO [id number] 00:00:00 Test Item Value Reference Range Interpretation [...] (test code = 1015) 277 K/UL VITAMIN [id number] 00:00:00 Test Item Value Reference Range Interpretation Comments VITAMIN B-12 (test code = 2840) 528 PG/ML VITAMIN [id number] 00:00:00 Test Item Value Reference Range Interpretation Comments VITAMIN B-12 (test code = 2840) 528 PG/ML HEMOGLOBIN [id number] 00:00:00 Test Item Value Reference Range Interpretation Comments HEMOGLOBIN A1c (test code = 26059) 7.4 % HEMOGLOBIN [id number] 00:00:00 Test Item Value Reference Range Interpretation Comments HEMOGLOBIN A1c (test code = 56652) 7.4 % LIPID PANEL WITH REFLEX DIRECT [id number] 00:00:00 Test Item Value Reference Range Interpretation Comments CHOLESTEROL (test code = 2210) 211 MG/DL TRIGLYCERIDES (test code = 2232) 257 MG/DL HDL CHOLESTEROL (test code = 2220) 54 MG/DL CALC LDL CHOL (test code = 2237) 106 MG/DL RISK RATIO LDL/HDL (test code = 1.96 RATIO 2238) COMPREHENSIVE METABOLIC [id number] 00:00:00 Test Item Value Reference Range Interpretation Comments GLUCOSE (test code = 2217) 222 MG/DL BUN (test code = 2208) 30 MG/DL CREATININE (test code = 2214) 1.26 MG/DL eGFR AMER. (test code 50 ML/MIN/1.73 = 57226) eGFR NON- AMER. (test 43 ML/MIN/1.73 code = 36759) CALC BUN/CREAT (test code = 24 RATIO [...] ALT (test code = 2219) 10 U/L [id number] 00:00:00 Test Item Value Reference Range Interpretation Comments TSH, THIRD GENERATION (test code 3.230 UIU/ML = 2821) [id number] 00:00:00 Test Item Value Reference Range Interpretation Comments TSH, THIRD GENERATION (test code 3.230 UIU/ML = 2821) [id number] 00:00:00 Test Item Value Reference Range Interpretation Comments TSH, THIRD GENERATION (test code 3.230 UIU/ML = 2821) CBC W/AUTO [id number] 00:00:00 Test Item Value Reference Range Interpretation [...] code = 1015) 277 K/UL CBC W/AUTO [id number] 00:00:00 Test Item Value Reference Range Interpretation [...] code = 1015) 277 K/UL CBC W/AUTO [id number] 00:00:00 Test Item Value Reference Range Interpretation [...] (test code = 1015) 277 K/UL VITAMIN [id number] 00:00:00 Test Item Value Reference Range Interpretation Comments VITAMIN B-12 (test code = 2840) 528 PG/ML VITAMIN [id number] 00:00:00 Test Item Value Reference Range Interpretation Comments VITAMIN B-12 (test code = 2840) 528 PG/ML VITAMIN [id number] 00:00:00 Test Item Value Reference Range Interpretation Comments VITAMIN B-12 (test code = 2840) 528 PG/ML HEMOGLOBIN [id number] 00:00:00 Test Item Value Reference Range Interpretation Comments HEMOGLOBIN A1c (test code = 78641) 7.4 % HEMOGLOBIN [id number] 00:00:00 Test Item Value Reference Range Interpretation Comments HEMOGLOBIN A1c (test code = 04448) 7.4 % HEMOGLOBIN [id number] 00:00:00 Test Item Value Reference Range Interpretation Comments HEMOGLOBIN A1c (test code = 23760) 7.4 % LIPID PANEL WITH REFLEX DIRECT [id number] 00:00:00 Test Item Value Reference Range Interpretation Comments CHOLESTEROL (test code = 2210) 211 MG/DL TRIGLYCERIDES (test code = 2232) 257 MG/DL HDL CHOLESTEROL (test code = 2220) 54 MG/DL CALC LDL CHOL (test code = 2237) 106 MG/DL RISK RATIO LDL/HDL (test code = 1.96 RATIO 2238) LIPID PANEL WITH REFLEX DIRECT [id number] 00:00:00 Test Item Value Reference Range Interpretation Comments CHOLESTEROL (test code = 2210) 211 MG/DL TRIGLYCERIDES (test code = 2232) 257 MG/DL HDL CHOLESTEROL (test code = 2220) 54 MG/DL CALC LDL CHOL (test code = 2237) 106 MG/DL RISK RATIO LDL/HDL (test code = 1.96 RATIO 2238) COMPREHENSIVE METABOLIC [id number] 00:00:00 Test Item Value Reference Range Interpretation Comments GLUCOSE (test code = 2217) 222 MG/DL BUN (test code = 2208) 30 MG/DL CREATININE (test code = 2214) 1.26 MG/DL eGFR AMER. (test code 50 ML/MIN/1.73 = 96296) eGFR NON- AMER. (test 43 ML/MIN/1.73 code = 45148) CALC BUN/CREAT (test code = 24 RATIO [...] code = 2219) 10 U/L COMPREHENSIVE METABOLIC [id number] 00:00:00 Test Item Value Reference Range Interpretation Comments GLUCOSE (test code = 2217) 222 MG/DL BUN (test code = 2208) 30 MG/DL CREATININE (test code = 2214) 1.26 MG/DL eGFR AMER. (test code 50 ML/MIN/1.73 = 53755) eGFR NON- AMER. (test 43 ML/MIN/1.73 code = 82263) CALC BUN/CREAT (test code = 24 RATIO [...] ALT (test code = 2219) 10 U/L [id number] 00:00:00 Test Item Value Reference Range Interpretation Comments TSH, THIRD GENERATION (test code 3.230 UIU/ML = 2821) [id number] 00:00:00 Test Item Value Reference Range Interpretation Comments TSH, THIRD GENERATION (test code 3.230 UIU/ML = 2821) [id number] 00:00:00 Test Item Value Reference Range Interpretation Comments TSH, THIRD GENERATION (test code 3.230 UIU/ML = 2821) CBC W/AUTO [id number] 00:00:00 Test Item Value Reference Range Interpretation [...] code = 1015) 277 K/UL CBC W/AUTO [id number] 00:00:00 Test Item Value Reference Range Interpretation [...] code = 1015) 277 K/UL CBC W/AUTO [id number] 00:00:00 Test Item Value Reference Range Interpretation [...] (test code = 1015) 277 K/UL VITAMIN [id number] 00:00:00 Test Item Value Reference Range Interpretation Comments VITAMIN B-12 (test code = 2840) 528 PG/ML VITAMIN [id number] 00:00:00 Test Item Value Reference Range Interpretation Comments VITAMIN B-12 (test code = 2840) 528 PG/ML VITAMIN [id number] 00:00:00 Test Item Value Reference Range Interpretation Comments VITAMIN B-12 (test code = 2840) 528 PG/ML HEMOGLOBIN [id number] 00:00:00 Test Item Value Reference Range Interpretation Comments HEMOGLOBIN A1c (test code = 98247) 7.4 % HEMOGLOBIN [id number] 00:00:00 Test Item Value Reference Range Interpretation Comments HEMOGLOBIN A1c (test code = 32732) 7.4 % HEMOGLOBIN [id number] 00:00:00 Test Item Value Reference Range Interpretation Comments HEMOGLOBIN A1c (test code = 55486) 7.4 % LIPID PANEL WITH REFLEX DIRECT [id number] 00:00:00 Test Item Value Reference Range Interpretation Comments CHOLESTEROL (test code = 2210) 211 MG/DL TRIGLYCERIDES (test code = 2232) 257 MG/DL HDL CHOLESTEROL (test code = 2220) 54 MG/DL CALC LDL CHOL (test code = 2237) 106 MG/DL RISK RATIO LDL/HDL (test code = 1.96 RATIO 2238) LIPID PANEL WITH REFLEX DIRECT [id number] 00:00:00 Test Item Value Reference Range Interpretation Comments CHOLESTEROL (test code = 2210) 211 MG/DL TRIGLYCERIDES (test code = 2232) 257 MG/DL HDL CHOLESTEROL (test code = 2220) 54 MG/DL CALC LDL CHOL (test code = 2237) 106 MG/DL RISK RATIO LDL/HDL (test code = 1.96 RATIO 2238) COMPREHENSIVE METABOLIC [id number] 00:00:00 Test Item Value Reference Range Interpretation Comments GLUCOSE (test code = 2217) 222 MG/DL BUN (test code = 2208) 30 MG/DL CREATININE (test code = 2214) 1.26 MG/DL eGFR AMER. (test code 50 ML/MIN/1.73 = 80253) eGFR NON- AMER. (test 43 ML/MIN/1.73 code = 82124) CALC BUN/CREAT (test code = 24 RATIO [...] Range Interpretation Comments NOTE: (test code = 12956) UNLABELLED SPECIMEN [ADDED]2019-05-20 00:00:00 Test Item Value Reference Range Interpretation Comments NOTE: (test code = 58222) UNLABELLED SPECIMEN [ADDED]2019-05-20 00:00:00 Test Item Value Reference Range Interpretation Comments NOTE: (test code = 32562) UNLABELLED SPECIMEN [ADDED]2019-05-20 00:00:00 Test Item Value Reference Range Interpretation Comments NOTE: (test code = 43036) UNLABELLED SPECIMEN [ADDED]2019-05-20 00:00:00 Test Item Value Reference Range Interpretation Comments NOTE: (test code = 86694) UNLABELLED SPECIMEN [ADDED]2019-05-20 00:00:00 Test Item Value Reference Range Interpretation Comments NOTE: (test code = 95206) UNLABELLED SPECIMEN [ADDED]2019-05-20 00:00:00 Test Item Value Reference Range Interpretation Comments NOTE: (test code = 85564) UNLABELLED SPECIMEN [ADDED]2019-05-20 00:00:00 Test Item Value Reference Range Interpretation Comments NOTE: (test code = 41524) CBC W/AUTO [id number] 00:00:00 Test Item Value Reference Range Interpretation [...] code = 1015) 284 K/UL CBC W/AUTO [id number] 00:00:00 Test Item Value Reference Range Interpretation [...] code = 1015) 284 K/UL CBC W/AUTO [id number] 00:00:00 Test Item Value Reference Range Interpretation [...] (test code = 1015) 284 K/UL LIPID [id number] 00:00:00 Test Item Value Reference Range Interpretation Comments CHOLESTEROL (test code = 2210) 196 MG/DL TRIGLYCERIDES (test code = 2232) 227 MG/DL HDL CHOLESTEROL (test code = 2220) 44 MG/DL CALC LDL CHOL (test code = 2237) 107 MG/DL RISK RATIO LDL/HDL (test code = 2.42 RATIO 2238) LIPID [id number] 00:00:00 Test Item Value Reference Range Interpretation Comments CHOLESTEROL (test code = 2210) 196 MG/DL TRIGLYCERIDES (test code = 2232) 227 MG/DL HDL CHOLESTEROL (test code = 2220) 44 MG/DL CALC LDL CHOL (test code = 2237) 107 MG/DL RISK RATIO LDL/HDL (test code = 2.42 RATIO 2238) HEMOGLOBIN [id number] 00:00:00 Test Item Value Reference Range Interpretation Comments HEMOGLOBIN A1c (test code = 94504) 9.0 % HEMOGLOBIN [id number] 00:00:00 Test Item Value Reference Range Interpretation Comments HEMOGLOBIN A1c (test code = 88732) 9.0 % HEMOGLOBIN [id number] 00:00:00 Test Item Value Reference Range Interpretation Comments HEMOGLOBIN A1c (test code = 71415) 9.0 % COMPREHENSIVE METABOLIC [id number] 00:00:00 Test Item Value Reference Range Interpretation Comments GLUCOSE (test code = 2217) 133 MG/DL BUN (test code = 2208) 44 MG/DL CREATININE (test code = 2214) 1.46 MG/DL eGFR AMER. (test code 42 ML/MIN/1.73 = 00566) eGFR NON- AMER. (test 36 ML/MIN/1.73 code = 33741) CALC BUN/CREAT (test code = 30 RATIO [...] code = 2219) 17 U/L COMPREHENSIVE METABOLIC [id number] 00:00:00 Test Item Value Reference Range Interpretation Comments GLUCOSE (test code = 2217) 133 MG/DL BUN (test code = 2208) 44 MG/DL CREATININE (test code = 2214) 1.46 MG/DL eGFR AMER. (test code 42 ML/MIN/1.73 = 97930) eGFR NON- AMER. (test 36 ML/MIN/1.73 code = 75827) CALC BUN/CREAT (test code = 30 RATIO [...] = 2219) 17 U/L MICROALBUMIN/CREATININE, RANDOM AND [id number] 00:00:00 Test Item Value Reference Range Interpretation Comments CREATININE, URINE, CONC. (test 97.1 MG/DL code = 2072) ALBUMIN, URINE, RANDOM (test code 18.9 MG/DL = 36055) CALC ALBUMIN/CREAT, RND (test code 195 MG/G = 74402) MICROALBUMIN/CREATININE, RANDOM AND [id number] 00:00:00 Test Item Value Reference Range Interpretation Comments CREATININE, URINE, CONC. (test 97.1 MG/DL code = 2072) ALBUMIN, URINE, RANDOM (test code 18.9 MG/DL = 53440) CALC ALBUMIN/CREAT, RND (test code 195 MG/G = 41206) CBC W/AUTO [id number] 00:00:00 Test Item Value Reference Range Interpretation [...] code = 1015) 284 K/UL CBC W/AUTO [id number] 00:00:00 Test Item Value Reference Range Interpretation [...] code = 1015) 284 K/UL CBC W/AUTO [id number] 00:00:00 Test Item Value Reference Range Interpretation [...] code = 1015) 284 K/UL CBC W/AUTO [id number] 00:00:00 Test Item Value Reference Range Interpretation [...] code = 1015) 284 K/UL CBC W/AUTO [id number] 00:00:00 Test Item Value Reference Range Interpretation [...] (test code = 1015) 284 K/UL LIPID [id number] 00:00:00 Test Item Value Reference Range Interpretation Comments CHOLESTEROL (test code = 2210) 196 MG/DL TRIGLYCERIDES (test code = 2232) 227 MG/DL HDL CHOLESTEROL (test code = 2220) 44 MG/DL CALC LDL CHOL (test code = 2237) 107 MG/DL RISK RATIO LDL/HDL (test code = 2.42 RATIO 2238) LIPID [id number] 00:00:00 Test Item Value Reference Range Interpretation Comments CHOLESTEROL (test code = 2210) 196 MG/DL TRIGLYCERIDES (test code = 2232) 227 MG/DL HDL CHOLESTEROL (test code = 2220) 44 MG/DL CALC LDL CHOL (test code = 2237) 107 MG/DL RISK RATIO LDL/HDL (test code = 2.42 RATIO 2238) LIPID [id number] 00:00:00 Test Item Value Reference Range Interpretation Comments CHOLESTEROL (test code = 2210) 196 MG/DL TRIGLYCERIDES (test code = 2232) 227 MG/DL HDL CHOLESTEROL (test code = 2220) 44 MG/DL CALC LDL CHOL (test code = 2237) 107 MG/DL RISK RATIO LDL/HDL (test code = 2.42 RATIO 2238) HEMOGLOBIN [id number] 00:00:00 Test Item Value Reference Range Interpretation Comments HEMOGLOBIN A1c (test code = 90573) 9.0 % HEMOGLOBIN [id number] 00:00:00 Test Item Value Reference Range Interpretation Comments HEMOGLOBIN A1c (test code = 96977) 9.0 % HEMOGLOBIN [id number] 00:00:00 Test Item Value Reference Range Interpretation Comments HEMOGLOBIN A1c (test code = 76470) 9.0 % COMPREHENSIVE METABOLIC [id number] 00:00:00 Test Item Value Reference Range Interpretation Comments GLUCOSE (test code = 2217) 133 MG/DL BUN (test code = 2208) 44 MG/DL CREATININE (test code = 2214) 1.46 MG/DL eGFR AMER. (test code 42 ML/MIN/1.73 = 74446) eGFR NON- AMER. (test 36 ML/MIN/1.73 code = 76904) CALC BUN/CREAT (test code = 30 RATIO [...] code = 2219) 17 U/L COMPREHENSIVE METABOLIC [id number] 00:00:00 Test Item Value Reference Range Interpretation Comments GLUCOSE (test code = 2217) 133 MG/DL BUN (test code = 2208) 44 MG/DL CREATININE (test code = 2214) 1.46 MG/DL eGFR AMER. (test code 42 ML/MIN/1.73 = 73007) eGFR NON- AMER. (test 36 ML/MIN/1.73 code = 20837) CALC BUN/CREAT (test code = 30 RATIO [...] = 2219) 17 U/L MICROALBUMIN/CREATININE, RANDOM AND [id number] 00:00:00 Test Item Value Reference Range Interpretation Comments CREATININE, URINE, CONC. (test 97.1 MG/DL code = 2072) ALBUMIN, URINE, RANDOM (test code 18.9 MG/DL = 16670) CALC ALBUMIN/CREAT, RND (test code 195 MG/G = 50378) MICROALBUMIN/CREATININE, RANDOM AND [id number] 00:00:00 Test Item Value Reference Range Interpretation Comments CREATININE, URINE, CONC. (test 97.1 MG/DL code = 2072) ALBUMIN, URINE, RANDOM (test code 18.9 MG/DL = 40231) CALC ALBUMIN/CREAT, RND (test code 195 MG/G = 48440) HEMOGLOBIN [id number] 00:00:00 Test Item Value Reference Range Interpretation Comments HEMOGLOBIN A1c (test code = 91358) 9.0 % HEMOGLOBIN [id number] 00:00:00 Test Item Value Reference Range Interpretation Comments HEMOGLOBIN A1c (test code = 65435) 9.0 % CBC W/AUTO [id number] 00:00:00 Test Item Value Reference Range Interpretation [...] code = 1015) 284 K/UL CBC W/AUTO [id number] 00:00:00 Test Item Value Reference Range Interpretation [...] code = 1015) 284 K/UL CBC W/AUTO [id number] 00:00:00 Test Item Value Reference Range Interpretation [...] (test code = 1015) 284 K/UL LIPID [id number] 00:00:00 Test Item Value Reference Range Interpretation Comments CHOLESTEROL (test code = 2210) 196 MG/DL TRIGLYCERIDES (test code = 2232) 227 MG/DL HDL CHOLESTEROL (test code = 2220) 44 MG/DL CALC LDL CHOL (test code = 2237) 107 MG/DL RISK RATIO LDL/HDL (test code = 2.42 RATIO 2238) LIPID [id number] 00:00:00 Test Item Value Reference Range Interpretation Comments CHOLESTEROL (test code = 2210) 196 MG/DL TRIGLYCERIDES (test code = 2232) 227 MG/DL HDL CHOLESTEROL (test code = 2220) 44 MG/DL CALC LDL CHOL (test code = 2237) 107 MG/DL RISK RATIO LDL/HDL (test code = 2.42 RATIO 2238) HEMOGLOBIN [id number] 00:00:00 Test Item Value Reference Range Interpretation Comments HEMOGLOBIN A1c (test code = 60559) 9.0 % HEMOGLOBIN [id number] 00:00:00 Test Item Value Reference Range Interpretation Comments HEMOGLOBIN A1c (test code = 82906) 9.0 % COMPREHENSIVE METABOLIC [id number] 00:00:00 Test Item Value Reference Range Interpretation Comments GLUCOSE (test code = 2217) 133 MG/DL BUN (test code = 2208) 44 MG/DL CREATININE (test code = 2214) 1.46 MG/DL eGFR AMER. (test code 42 ML/MIN/1.73 = 85983) eGFR NON- AMER. (test 36 ML/MIN/1.73 code = 88101) CALC BUN/CREAT (test code = 30 RATIO [...] (test code = 2219) 17 U/L HEMOGLOBIN [id number] 00:00:00 Test Item Value Reference Range Interpretation Comments HEMOGLOBIN A1c (test code = 84742) 9.0 % COMPREHENSIVE METABOLIC [id number] 00:00:00 Test Item Value Reference Range Interpretation Comments GLUCOSE (test code = 2217) 133 MG/DL BUN (test code = 2208) 44 MG/DL CREATININE (test code = 2214) 1.46 MG/DL eGFR AMER. (test code 42 ML/MIN/1.73 = 61389) eGFR NON- AMER. (test 36 ML/MIN/1.73 code = 31043) CALC BUN/CREAT (test code = 30 RATIO [...] code = 2219) 17 U/L COMPREHENSIVE METABOLIC [id number] 00:00:00 Test Item Value Reference Range Interpretation Comments GLUCOSE (test code = 2217) 133 MG/DL BUN (test code = 2208) 44 MG/DL CREATININE (test code = 2214) 1.46 MG/DL eGFR AMER. (test code 42 ML/MIN/1.73 = 58328) eGFR NON- AMER. (test 36 ML/MIN/1.73 code = 39839) CALC BUN/CREAT (test code = 30 RATIO [...] = 2219) 17 U/L MICROALBUMIN/CREATININE, RANDOM AND [id number] 00:00:00 Test Item Value Reference Range Interpretation Comments CREATININE, URINE, CONC. (test 97.1 MG/DL code = 2072) ALBUMIN, URINE, RANDOM (test code 18.9 MG/DL = 67795) CALC ALBUMIN/CREAT, RND (test code 195 MG/G = 67555) MICROALBUMIN/CREATININE, RANDOM AND [id number] 00:00:00 Test Item Value Reference Range Interpretation Comments CREATININE, URINE, CONC. (test 97.1 MG/DL code = 2072) ALBUMIN, URINE, RANDOM (test code 18.9 MG/DL = 32316) CALC ALBUMIN/CREAT, RND (test code 195 MG/G = 87040) MICROALBUMIN/CREATININE, RANDOM AND [id number] 00:00:00 Test Item Value Reference Range Interpretation Comments CREATININE, URINE, CONC. (test 97.1 MG/DL code = 2072) ALBUMIN, URINE, RANDOM (test code 18.9 MG/DL = 59987) CALC ALBUMIN/CREAT, RND (test code 195 MG/G = 83682) CBC W/AUTO [id number] 00:00:00 Test Item Value Reference Range Interpretation [...] code = 1015) 284 K/UL CBC W/AUTO [id number] 00:00:00 Test Item Value Reference Range Interpretation [...] code = 1015) 284 K/UL CBC W/AUTO [id number] 00:00:00 Test Item Value Reference Range Interpretation [...] (test code = 1015) 284 K/UL LIPID [id number] 00:00:00 Test Item Value Reference Range Interpretation Comments CHOLESTEROL (test code = 2210) 196 MG/DL TRIGLYCERIDES (test code = 2232) 227 MG/DL HDL CHOLESTEROL (test code = 2220) 44 MG/DL CALC LDL CHOL (test code = 2237) 107 MG/DL RISK RATIO LDL/HDL (test code = 2.42 RATIO 2238) LIPID [id number] 00:00:00 Test Item Value Reference Range Interpretation Comments CHOLESTEROL (test code = 2210) 196 MG/DL TRIGLYCERIDES (test code = 2232) 227 MG/DL HDL CHOLESTEROL (test code = 2220) 44 MG/DL CALC LDL CHOL (test code = 2237) 107 MG/DL RISK RATIO LDL/HDL (test code = 2.42 RATIO 2238) HEMOGLOBIN [id number] 00:00:00 Test Item Value Reference Range Interpretation Comments HEMOGLOBIN A1c (test code = 57855) 9.0 % HEMOGLOBIN [id number] 00:00:00 Test Item Value Reference Range Interpretation Comments HEMOGLOBIN A1c (test code = 23321) 9.0 % HEMOGLOBIN [id number] 00:00:00 Test Item Value Reference Range Interpretation Comments HEMOGLOBIN A1c (test code = 21360) 9.0 % COMPREHENSIVE METABOLIC [id number] 00:00:00 Test Item Value Reference Range Interpretation Comments GLUCOSE (test code = 2217) 133 MG/DL BUN (test code = 2208) 44 MG/DL CREATININE (test code = 2214) 1.46 MG/DL eGFR AMER. (test code 42 ML/MIN/1.73 = 13895) eGFR NON- AMER. (test 36 ML/MIN/1.73 code = 28543) CALC BUN/CREAT (test code = 30 RATIO [...] code = 2219) 17 U/L COMPREHENSIVE METABOLIC [id number] 00:00:00 Test Item Value Reference Range Interpretation Comments GLUCOSE (test code = 2217) 133 MG/DL BUN (test code = 2208) 44 MG/DL CREATININE (test code = 2214) 1.46 MG/DL eGFR AMER. (test code 42 ML/MIN/1.73 = 69294) eGFR NON- AMER. (test 36 ML/MIN/1.73 code = 15397) CALC BUN/CREAT (test code = 30 RATIO [...] = 2219) 17 U/L MICROALBUMIN/CREATININE, RANDOM AND [id number] 00:00:00 Test Item Value Reference Range Interpretation Comments CREATININE, URINE, CONC. (test 97.1 MG/DL code = 2072) ALBUMIN, URINE, RANDOM (test code 18.9 MG/DL = 88474) CALC ALBUMIN/CREAT, RND (test code 195 MG/G = 16494) MICROALBUMIN/CREATININE, RANDOM AND [id number] 00:00:00 Test Item Value Reference Range Interpretation Comments CREATININE, URINE, CONC. (test 97.1 MG/DL code = 2072) ALBUMIN, URINE, RANDOM (test code 18.9 MG/DL = 99570) CALC ALBUMIN/CREAT, RND (test code 195 MG/G = 49869) CBC W/AUTO [id number] 00:00:00 Test Item Value Reference Range Interpretation [...] code = 1015) 284 K/UL CBC W/AUTO [id number] 00:00:00 Test Item Value Reference Range Interpretation [...] (test code = 1015) 284 K/UL LIPID [id number] 00:00:00 Test Item Value Reference Range Interpretation Comments CHOLESTEROL (test code = 2210) 196 MG/DL TRIGLYCERIDES (test code = 2232) 227 MG/DL HDL CHOLESTEROL (test code = 2220) 44 MG/DL CALC LDL CHOL (test code = 2237) 107 MG/DL RISK RATIO LDL/HDL (test code = 2.42 RATIO 2238) HEMOGLOBIN [id number] 00:00:00 Test Item Value Reference Range Interpretation Comments HEMOGLOBIN A1c (test code = 01100) 9.0 % HEMOGLOBIN [id number] 00:00:00 Test Item Value Reference Range Interpretation Comments HEMOGLOBIN A1c (test code = 03747) 9.0 % COMPREHENSIVE METABOLIC [id number] 00:00:00 Test Item Value Reference Range Interpretation Comments GLUCOSE (test code = 2217) 133 MG/DL BUN (test code = 2208) 44 MG/DL CREATININE (test code = 2214) 1.46 MG/DL eGFR AMER. (test code 42 ML/MIN/1.73 = 04145) eGFR NON- AMER. (test 36 ML/MIN/1.73 code = 75544) CALC BUN/CREAT (test code = 30 RATIO [...] = 2219) 17 U/L MICROALBUMIN/CREATININE, RANDOM AND [id number] 00:00:00 Test Item Value Reference Range Interpretation Comments CREATININE, URINE, CONC. (test 97.1 MG/DL code = 2072) ALBUMIN, URINE, RANDOM (test code 18.9 MG/DL = 91172) CALC ALBUMIN/CREAT, RND (test code 195 MG/G = 00735) CBC W/AUTO [id number] 00:00:00 Test Item Value Reference Range Interpretation [...] code = 1015) 284 K/UL CBC W/AUTO [id number] 00:00:00 Test Item Value Reference Range Interpretation [...] code = 1015) 284 K/UL CBC W/AUTO [id number] 00:00:00 Test Item Value Reference Range Interpretation [...] (test code = 1015) 284 K/UL LIPID [id number] 00:00:00 Test Item Value Reference Range Interpretation Comments CHOLESTEROL (test code = 2210) 196 MG/DL TRIGLYCERIDES (test code = 2232) 227 MG/DL HDL CHOLESTEROL (test code = 2220) 44 MG/DL CALC LDL CHOL (test code = 2237) 107 MG/DL RISK RATIO LDL/HDL (test code = 2.42 RATIO 2238) LIPID [id number] 00:00:00 Test Item Value Reference Range Interpretation Comments CHOLESTEROL (test code = 2210) 196 MG/DL TRIGLYCERIDES (test code = 2232) 227 MG/DL HDL CHOLESTEROL (test code = 2220) 44 MG/DL CALC LDL CHOL (test code = 2237) 107 MG/DL RISK RATIO LDL/HDL (test code = 2.42 RATIO 2238) HEMOGLOBIN [id number] 00:00:00 Test Item Value Reference Range Interpretation Comments HEMOGLOBIN A1c (test code = 85334) 9.0 % HEMOGLOBIN [id number] 00:00:00 Test Item Value Reference Range Interpretation Comments HEMOGLOBIN A1c (test code = 22201) 9.0 % HEMOGLOBIN [id number] 00:00:00 Test Item Value Reference Range Interpretation Comments HEMOGLOBIN A1c (test code = 69789) 9.0 % COMPREHENSIVE METABOLIC [id number] 00:00:00 Test Item Value Reference Range Interpretation Comments GLUCOSE (test code = 2217) 133 MG/DL BUN (test code = 2208) 44 MG/DL CREATININE (test code = 2214) 1.46 MG/DL eGFR AMER. (test code 42 ML/MIN/1.73 = 75490) eGFR NON- AMER. (test 36 ML/MIN/1.73 code = 44679) CALC BUN/CREAT (test code = 30 RATIO [...] code = 2219) 17 U/L COMPREHENSIVE METABOLIC [id number] 00:00:00 Test Item Value Reference Range Interpretation Comments GLUCOSE (test code = 2217) 133 MG/DL BUN (test code = 2208) 44 MG/DL CREATININE (test code = 2214) 1.46 MG/DL eGFR AMER. (test code 42 ML/MIN/1.73 = 85983) eGFR NON- AMER. (test 36 ML/MIN/1.73 code = 95933) CALC BUN/CREAT (test code = 30 RATIO [...] = 2219) 17 U/L MICROALBUMIN/CREATININE, RANDOM AND [id number] 00:00:00 Test Item Value Reference Range Interpretation Comments CREATININE, URINE, CONC. (test 97.1 MG/DL code = 2072) ALBUMIN, URINE, RANDOM (test code 18.9 MG/DL = 83846) CALC ALBUMIN/CREAT, RND (test code 195 MG/G = 28009) MICROALBUMIN/CREATININE, RANDOM AND [id number] 00:00:00 Test Item Value Reference Range Interpretation Comments CREATININE, URINE, CONC. (test 97.1 MG/DL code = 2072) ALBUMIN, URINE, RANDOM (test code 18.9 MG/DL = 47515) CALC ALBUMIN/CREAT, RND (test code 195 MG/G = 11514) CBC W/AUTO [id number] 00:00:00 Test Item Value Reference Range Interpretation [...] code = 1015) 284 K/UL CBC W/AUTO [id number] 00:00:00 Test Item Value Reference Range Interpretation [...] code = 1015) 284 K/UL CBC W/AUTO [id number] 00:00:00 Test Item Value Reference Range Interpretation [...] (test code = 1015) 284 K/UL LIPID [id number] 00:00:00 Test Item Value Reference Range Interpretation Comments CHOLESTEROL (test code = 2210) 196 MG/DL TRIGLYCERIDES (test code = 2232) 227 MG/DL HDL CHOLESTEROL (test code = 2220) 44 MG/DL CALC LDL CHOL (test code = 2237) 107 MG/DL RISK RATIO LDL/HDL (test code = 2.42 RATIO 2238) LIPID [id number] 00:00:00 Test Item Value Reference Range Interpretation Comments CHOLESTEROL (test code = 2210) 196 MG/DL TRIGLYCERIDES (test code = 2232) 227 MG/DL HDL CHOLESTEROL (test code = 2220) 44 MG/DL CALC LDL CHOL (test code = 2237) 107 MG/DL RISK RATIO LDL/HDL (test code = 2.42 RATIO 2238) HEMOGLOBIN [id number] 00:00:00 Test Item Value Reference Range Interpretation Comments HEMOGLOBIN A1c (test code = 30231) 9.0 % HEMOGLOBIN [id number] 00:00:00 Test Item Value Reference Range Interpretation Comments HEMOGLOBIN A1c (test code = 25276) 9.0 % HEMOGLOBIN [id number] 00:00:00 Test Item Value Reference Range Interpretation Comments HEMOGLOBIN A1c (test code = 68585) 9.0 % COMPREHENSIVE METABOLIC [id number] 00:00:00 Test Item Value Reference Range Interpretation Comments GLUCOSE (test code = 2217) 133 MG/DL BUN (test code = 2208) 44 MG/DL CREATININE (test code = 2214) 1.46 MG/DL eGFR AMER. (test code 42 ML/MIN/1.73 = 31070) eGFR NON- AMER. (test 36 ML/MIN/1.73 code = 49954) CALC BUN/CREAT (test code = 30 RATIO [...] code = 2219) 17 U/L COMPREHENSIVE METABOLIC [id number] 00:00:00 Test Item Value Reference Range Interpretation Comments GLUCOSE (test code = 2217) 133 MG/DL BUN (test code = 2208) 44 MG/DL CREATININE (test code = 2214) 1.46 MG/DL eGFR AMER. (test code 42 ML/MIN/1.73 = 74832) eGFR NON- AMER. (test 36 ML/MIN/1.73 code = 80907) CALC BUN/CREAT (test code = 30 RATIO [...] = 2219) 17 U/L MICROALBUMIN/CREATININE, RANDOM AND [id number] 00:00:00 Test Item Value Reference Range Interpretation Comments CREATININE, URINE, CONC. (test 97.1 MG/DL code = 2072) ALBUMIN, URINE, RANDOM (test code 18.9 MG/DL = 05659) CALC ALBUMIN/CREAT, RND (test code 195 MG/G = 76433) MICROALBUMIN/CREATININE, RANDOM AND [id number] 00:00:00 Test Item Value Reference Range Interpretation Comments CREATININE, URINE, CONC. (test 97.1 MG/DL code = 2072) ALBUMIN, URINE, RANDOM (test code 18.9 MG/DL = 96625) CALC ALBUMIN/CREAT, RND (test code 195 MG/G = 94640) COMPREHENSIVE METABOLIC [id number] 00:00:00 Test Item Value Reference Range Interpretation Comments GLUCOSE (test code = 2217) 235 MG/DL BUN (test code = 2208) 36 MG/DL CREATININE (test code = 2214) 1.62 MG/DL eGFR AMER. (test code 37 ML/MIN/1.73 = 61116) eGFR NON- AMER. (test 32 ML/MIN/1.73 code = 30338) CALC BUN/CREAT (test code = 22 RATIO [...] code = 2219) 9 U/L COMPREHENSIVE METABOLIC [id number] 00:00:00 Test Item Value Reference Range Interpretation Comments GLUCOSE (test code = 2217) 235 MG/DL BUN (test code = 2208) 36 MG/DL CREATININE (test code = 2214) 1.62 MG/DL eGFR AMER. (test code 37 ML/MIN/1.73 = 94579) eGFR NON- AMER. (test 32 ML/MIN/1.73 code = 67227) CALC BUN/CREAT (test code = 22 RATIO [...] code = 2219) 9 U/L COMPREHENSIVE METABOLIC [id number] 00:00:00 Test Item Value Reference Range Interpretation Comments GLUCOSE (test code = 2217) 235 MG/DL BUN (test code = 2208) 36 MG/DL CREATININE (test code = 2214) 1.62 MG/DL eGFR AMER. (test code 37 ML/MIN/1.73 = 07501) eGFR NON- AMER. (test 32 ML/MIN/1.73 code = 06303) CALC BUN/CREAT (test code = 22 RATIO [...] code = 2219) 9 U/L COMPREHENSIVE METABOLIC [id number] 00:00:00 Test Item Value Reference Range Interpretation Comments GLUCOSE (test code = 2217) 235 MG/DL BUN (test code = 2208) 36 MG/DL CREATININE (test code = 2214) 1.62 MG/DL eGFR AMER. (test code 37 ML/MIN/1.73 = 60067) eGFR NON- AMER. (test 32 ML/MIN/1.73 code = 80094) CALC BUN/CREAT (test code = 22 RATIO [...] code = 2219) 9 U/L COMPREHENSIVE METABOLIC [id number] 00:00:00 Test Item Value Reference Range Interpretation Comments GLUCOSE (test code = 2217) 235 MG/DL BUN (test code = 2208) 36 MG/DL CREATININE (test code = 2214) 1.62 MG/DL eGFR AMER. (test code 37 ML/MIN/1.73 = 98940) eGFR NON- AMER. (test 32 ML/MIN/1.73 code = 56490) CALC BUN/CREAT (test code = 22 RATIO [...] code = 2219) 9 U/L COMPREHENSIVE METABOLIC [id number] 00:00:00 Test Item Value Reference Range Interpretation Comments GLUCOSE (test code = 2217) 235 MG/DL BUN (test code = 2208) 36 MG/DL CREATININE (test code = 2214) 1.62 MG/DL eGFR AMER. (test code 37 ML/MIN/1.73 = 97118) eGFR NON- AMER. (test 32 ML/MIN/1.73 code = 13119) CALC BUN/CREAT (test code = 22 RATIO [...] code = 2219) 9 U/L COMPREHENSIVE METABOLIC [id number] 00:00:00 Test Item Value Reference Range Interpretation Comments GLUCOSE (test code = 2217) 235 MG/DL BUN (test code = 2208) 36 MG/DL CREATININE (test code = 2214) 1.62 MG/DL eGFR AMER. (test code 37 ML/MIN/1.73 = 76656) eGFR NON- AMER. (test 32 ML/MIN/1.73 code = 88970) CALC BUN/CREAT (test code = 22 RATIO [...] code = 2219) 9 U/L COMPREHENSIVE METABOLIC [id number] 00:00:00 Test Item Value Reference Range Interpretation Comments GLUCOSE (test code = 2217) 235 MG/DL BUN (test code = 2208) 36 MG/DL CREATININE (test code = 2214) 1.62 MG/DL eGFR AMER. (test code 37 ML/MIN/1.73 = 72703) eGFR NON- AMER. (test 32 ML/MIN/1.73 code = 26622) CALC BUN/CREAT (test code = 22 RATIO [...] code = 2219) 9 U/L COMPREHENSIVE METABOLIC [id number] 00:00:00 Test Item Value Reference Range Interpretation Comments GLUCOSE (test code = 2217) 235 MG/DL BUN (test code = 2208) 36 MG/DL CREATININE (test code = 2214) 1.62 MG/DL eGFR AMER. (test code 37 ML/MIN/1.73 = 00182) eGFR NON- AMER. (test 32 ML/MIN/1.73 code = 30381) CALC BUN/CREAT (test code = 22 RATIO [...] code = 2219) 9 U/L COMPREHENSIVE METABOLIC [id number] 00:00:00 Test Item Value Reference Range Interpretation Comments GLUCOSE (test code = 2217) 235 MG/DL BUN (test code = 2208) 36 MG/DL CREATININE (test code = 2214) 1.62 MG/DL eGFR AMER. (test code 37 ML/MIN/1.73 = 97589) eGFR NON- AMER. (test 32 ML/MIN/1.73 code = 60993) CALC BUN/CREAT (test code = 22 RATIO [...] code = 2219) 9 U/L COMPREHENSIVE METABOLIC [id number] 00:00:00 Test Item Value Reference Range Interpretation Comments GLUCOSE (test code = 2217) 235 MG/DL BUN (test code = 2208) 36 MG/DL CREATININE (test code = 2214) 1.62 MG/DL eGFR AMER. (test code 37 ML/MIN/1.73 = 65898) eGFR NON- AMER. (test 32 ML/MIN/1.73 code = 28439) CALC BUN/CREAT (test code = 22 RATIO [...] code = 2219) 9 U/L COMPREHENSIVE METABOLIC [id number] 00:00:00 Test Item Value Reference Range Interpretation Comments GLUCOSE (test code = 2217) 235 MG/DL BUN (test code = 2208) 36 MG/DL CREATININE (test code = 2214) 1.62 MG/DL eGFR AMER. (test code 37 ML/MIN/1.73 = 35558) eGFR NON- AMER. (test 32 ML/MIN/1.73 code = 55260) CALC BUN/CREAT (test code = 22 RATIO [...] code = 2219) 9 U/L COMPREHENSIVE METABOLIC [id number] 00:00:00 Test Item Value Reference Range Interpretation Comments GLUCOSE (test code = 2217) 235 MG/DL BUN (test code = 2208) 36 MG/DL CREATININE (test code = 2214) 1.62 MG/DL eGFR AMER. (test code 37 ML/MIN/1.73 = 66886) eGFR NON- AMER. (test 32 ML/MIN/1.73 code = 79362) CALC BUN/CREAT (test code = 22 RATIO [...] code = 2219) 9 U/L COMPREHENSIVE METABOLIC [id number] 00:00:00 Test Item Value Reference Range Interpretation Comments GLUCOSE (test code = 2217) 235 MG/DL BUN (test code = 2208) 36 MG/DL CREATININE (test code = 2214) 1.62 MG/DL eGFR AMER. (test code 37 ML/MIN/1.73 = 07641) eGFR NON- AMER. (test 32 ML/MIN/1.73 code = 10579) CALC BUN/CREAT (test code = 22 RATIO [...] code = 2219) 9 U/L CBC W/AUTO [id number] 00:00:00 Test Item Value Reference Range Interpretation [...] code = 1015) 247 K/UL CBC W/AUTO [id number] 00:00:00 Test Item Value Reference Range Interpretation [...] code = 1015) 247 K/UL CBC W/AUTO [id number] 00:00:00 Test Item Value Reference Range Interpretation [...] (test code = 1015) 247 K/UL HEMOGLOBIN [id number] 00:00:00 Test Item Value Reference Range Interpretation Comments HEMOGLOBIN A1c (test code = 04030) 7.1 % HEMOGLOBIN [id number] 00:00:00 Test Item Value Reference Range Interpretation Comments HEMOGLOBIN A1c (test code = 86213) 7.1 % HEMOGLOBIN [id number] 00:00:00 Test Item Value Reference Range Interpretation Comments HEMOGLOBIN A1c (test code = 01198) 7.1 % COMPREHENSIVE METABOLIC [id number] 00:00:00 Test Item Value Reference Range Interpretation Comments GLUCOSE (test code = 2217) 116 MG/DL BUN (test code = 2208) 35 MG/DL CREATININE (test code = 2214) 1.31 MG/DL eGFR AMER. (test code 48 ML/MIN/1.73 = 67195) eGFR NON- AMER. (test 41 ML/MIN/1.73 code = 47427) CALC BUN/CREAT (test code = 27 RATIO [...] code = 2219) 10 U/L COMPREHENSIVE METABOLIC [id number] 00:00:00 Test Item Value Reference Range Interpretation Comments GLUCOSE (test code = 2217) 116 MG/DL BUN (test code = 2208) 35 MG/DL CREATININE (test code = 2214) 1.31 MG/DL eGFR AMER. (test code 48 ML/MIN/1.73 = 33740) eGFR NON- AMER. (test 41 ML/MIN/1.73 code = 03974) CALC BUN/CREAT (test code = 27 RATIO [...] code = 2219) 10 U/L CBC W/AUTO [id number] 00:00:00 Test Item Value Reference Range Interpretation [...] code = 1015) 247 K/UL CBC W/AUTO [id number] 00:00:00 Test Item Value Reference Range Interpretation [...] code = 1015) 247 K/UL CBC W/AUTO [id number] 00:00:00 Test Item Value Reference Range Interpretation [...] code = 1015) 247 K/UL CBC W/AUTO [id number] 00:00:00 Test Item Value Reference Range Interpretation [...] code = 1015) 247 K/UL CBC W/AUTO [id number] 00:00:00 Test Item Value Reference Range Interpretation [...] (test code = 1015) 247 K/UL HEMOGLOBIN [id number] 00:00:00 Test Item Value Reference Range Interpretation Comments HEMOGLOBIN A1c (test code = 96964) 7.1 % HEMOGLOBIN [id number] 00:00:00 Test Item Value Reference Range Interpretation Comments HEMOGLOBIN A1c (test code = 04504) 7.1 % HEMOGLOBIN [id number] 00:00:00 Test Item Value Reference Range Interpretation Comments HEMOGLOBIN A1c (test code = 01957) 7.1 % COMPREHENSIVE METABOLIC [id number] 00:00:00 Test Item Value Reference Range Interpretation Comments GLUCOSE (test code = 2217) 116 MG/DL BUN (test code = 2208) 35 MG/DL CREATININE (test code = 2214) 1.31 MG/DL eGFR AMER. (test code 48 ML/MIN/1.73 = 59368) eGFR NON- AMER. (test 41 ML/MIN/1.73 code = 60838) CALC BUN/CREAT (test code = 27 RATIO [...] code = 2219) 10 U/L COMPREHENSIVE METABOLIC [id number] 00:00:00 Test Item Value Reference Range Interpretation Comments GLUCOSE (test code = 2217) 116 MG/DL BUN (test code = 2208) 35 MG/DL CREATININE (test code = 2214) 1.31 MG/DL eGFR AMER. (test code 48 ML/MIN/1.73 = 46312) eGFR NON- AMER. (test 41 ML/MIN/1.73 code = 38199) CALC BUN/CREAT (test code = 27 RATIO [...] ALT (test code = 2219) 10 U/L HEMOGLOBIN [id number] 00:00:00 Test Item Value Reference Range Interpretation Comments HEMOGLOBIN A1c (test code = 52227) 7.1 % HEMOGLOBIN [id number] 00:00:00 Test Item Value Reference Range Interpretation Comments HEMOGLOBIN A1c (test code = 27042) 7.1 % COMPREHENSIVE METABOLIC [id number] 00:00:00 Test Item Value Reference Range Interpretation Comments GLUCOSE (test code = 2217) 116 MG/DL BUN (test code = 2208) 35 MG/DL CREATININE (test code = 2214) 1.31 MG/DL eGFR AMER. (test code 48 ML/MIN/1.73 = 26933) eGFR NON- AMER. (test 41 ML/MIN/1.73 code = 45938) CALC BUN/CREAT (test code = 27 RATIO [...] code = 2219) 10 U/L CBC W/AUTO [id number] 00:00:00 Test Item Value Reference Range Interpretation [...] code = 1015) 247 K/UL CBC W/AUTO [id number] 00:00:00 Test Item Value Reference Range Interpretation [...] code = 1015) 247 K/UL CBC W/AUTO [id number] 00:00:00 Test Item Value Reference Range Interpretation [...] (test code = 1015) 247 K/UL HEMOGLOBIN [id number] 00:00:00 Test Item Value Reference Range Interpretation Comments HEMOGLOBIN A1c (test code = 05247) 7.1 % HEMOGLOBIN [id number] 00:00:00 Test Item Value Reference Range Interpretation Comments HEMOGLOBIN A1c (test code = 55043) 7.1 % HEMOGLOBIN [id number] 00:00:00 Test Item Value Reference Range Interpretation Comments HEMOGLOBIN A1c (test code = 96977) 7.1 % COMPREHENSIVE METABOLIC [id number] 00:00:00 Test Item Value Reference Range Interpretation Comments GLUCOSE (test code = 2217) 116 MG/DL BUN (test code = 2208) 35 MG/DL CREATININE (test code = 2214) 1.31 MG/DL eGFR AMER. (test code 48 ML/MIN/1.73 = 54458) eGFR NON- AMER. (test 41 ML/MIN/1.73 code = 49609) CALC BUN/CREAT (test code = 27 RATIO [...] code = 2219) 10 U/L COMPREHENSIVE METABOLIC [id number] 00:00:00 Test Item Value Reference Range Interpretation Comments GLUCOSE (test code = 2217) 116 MG/DL BUN (test code = 2208) 35 MG/DL CREATININE (test code = 2214) 1.31 MG/DL eGFR AMER. (test code 48 ML/MIN/1.73 = 55263) eGFR NON- AMER. (test 41 ML/MIN/1.73 code = 58528) CALC BUN/CREAT (test code = 27 RATIO [...] code = 2219) 10 U/L CBC W/AUTO [id number] 00:00:00 Test Item Value Reference Range Interpretation [...] code = 1015) 247 K/UL CBC W/AUTO [id number] 00:00:00 Test Item Value Reference Range Interpretation [...] code = 1015) 247 K/UL CBC W/AUTO [id number] 00:00:00 Test Item Value Reference Range Interpretation [...] (test code = 1015) 247 K/UL HEMOGLOBIN [id number] 00:00:00 Test Item Value Reference Range Interpretation Comments HEMOGLOBIN A1c (test code = 13483) 7.1 % HEMOGLOBIN [id number] 00:00:00 Test Item Value Reference Range Interpretation Comments HEMOGLOBIN A1c (test code = 57328) 7.1 % HEMOGLOBIN [id number] 00:00:00 Test Item Value Reference Range Interpretation Comments HEMOGLOBIN A1c (test code = 28906) 7.1 % COMPREHENSIVE METABOLIC [id number] 00:00:00 Test Item Value Reference Range Interpretation Comments GLUCOSE (test code = 2217) 116 MG/DL BUN (test code = 2208) 35 MG/DL CREATININE (test code = 2214) 1.31 MG/DL eGFR AMER. (test code 48 ML/MIN/1.73 = 99068) eGFR NON- AMER. (test 41 ML/MIN/1.73 code = 07576) CALC BUN/CREAT (test code = 27 RATIO [...] code = 2219) 10 U/L COMPREHENSIVE METABOLIC [id number] 00:00:00 Test Item Value Reference Range Interpretation Comments GLUCOSE (test code = 2217) 116 MG/DL BUN (test code = 2208) 35 MG/DL CREATININE (test code = 2214) 1.31 MG/DL eGFR AMER. (test code 48 ML/MIN/1.73 = 68359) eGFR NON- AMER. (test 41 ML/MIN/1.73 code = 07809) CALC BUN/CREAT (test code = 27 RATIO [...] code = 2219) 10 U/L CBC W/AUTO [id number] 00:00:00 Test Item Value Reference Range Interpretation [...] code = 1015) 247 K/UL CBC W/AUTO [id number] 00:00:00 Test Item Value Reference Range Interpretation [...] (test code = 1015) 247 K/UL HEMOGLOBIN [id number] 00:00:00 Test Item Value Reference Range Interpretation Comments HEMOGLOBIN A1c (test code = 79262) 7.1 % HEMOGLOBIN [id number] 00:00:00 Test Item Value Reference Range Interpretation Comments HEMOGLOBIN A1c (test code = 05223) 7.1 % COMPREHENSIVE METABOLIC [id number] 00:00:00 Test Item Value Reference Range Interpretation Comments GLUCOSE (test code = 2217) 116 MG/DL BUN (test code = 2208) 35 MG/DL CREATININE (test code = 2214) 1.31 MG/DL eGFR AMER. (test code 48 ML/MIN/1.73 = 58483) eGFR NON- AMER. (test 41 ML/MIN/1.73 code = 22901) CALC BUN/CREAT (test code = 27 RATIO [...] code = 2219) 10 U/L CBC W/AUTO [id number] 00:00:00 Test Item Value Reference Range Interpretation [...] code = 1015) 247 K/UL CBC W/AUTO [id number] 00:00:00 Test Item Value Reference Range Interpretation [...] code = 1015) 247 K/UL CBC W/AUTO [id number] 00:00:00 Test Item Value Reference Range Interpretation [...] (test code = 1015) 247 K/UL HEMOGLOBIN [id number] 00:00:00 Test Item Value Reference Range Interpretation Comments HEMOGLOBIN A1c (test code = 59115) 7.1 % HEMOGLOBIN [id number] 00:00:00 Test Item Value Reference Range Interpretation Comments HEMOGLOBIN A1c (test code = 51597) 7.1 % HEMOGLOBIN [id number] 00:00:00 Test Item Value Reference Range Interpretation Comments HEMOGLOBIN A1c (test code = 95842) 7.1 % COMPREHENSIVE METABOLIC [id number] 00:00:00 Test Item Value Reference Range Interpretation Comments GLUCOSE (test code = 2217) 116 MG/DL BUN (test code = 2208) 35 MG/DL CREATININE (test code = 2214) 1.31 MG/DL eGFR AMER. (test code 48 ML/MIN/1.73 = 27097) eGFR NON- AMER. (test 41 ML/MIN/1.73 code = 20880) CALC BUN/CREAT (test code = 27 RATIO 2235) SODIUM (test code = 2231) 141 MEQ/L POTASSIUM (test code = 2228) 5.0 MEQ/L CHLORIDE (test code = 2215) 104 MEQ/L CARBON DIOXIDE (test code = 22 MEQ/L 6) CALCIUM (test code = 2209) 9.5 MG/DL [...] code = 2219) 10 U/L COMPREHENSIVE METABOLIC [id number] 00:00:00 Test Item Value Reference Range Interpretation Comments GLUCOSE (test code = 2217) 116 MG/DL BUN (test code = 2208) 35 MG/DL CREATININE (test code = 2214) 1.31 MG/DL eGFR AMER. (test code 48 ML/MIN/1.73 = 13457) eGFR NON- AMER. (test 41 ML/MIN/1.73 code = 11864) CALC BUN/CREAT (test code = 27 RATIO [...] code = 2219) 10 U/L CBC W/AUTO [id number] 00:00:00 Test Item Value Reference Range Interpretation [...] code = 1015) 247 K/UL CBC W/AUTO [id number] 00:00:00 Test Item Value Reference Range Interpretation [...] code = 1015) 247 K/UL CBC W/AUTO [id number] 00:00:00 Test Item Value Reference Range Interpretation [...] (test code = 1015) 247 K/UL HEMOGLOBIN [id number] 00:00:00 Test Item Value Reference Range Interpretation Comments HEMOGLOBIN A1c (test code = 77622) 7.1 % HEMOGLOBIN [id number] 00:00:00 Test Item Value Reference Range Interpretation Comments HEMOGLOBIN A1c (test code = 47645) 7.1 % HEMOGLOBIN [id number] 00:00:00 Test Item Value Reference Range Interpretation Comments HEMOGLOBIN A1c (test code = 44523) 7.1 % COMPREHENSIVE METABOLIC [id number] 00:00:00 Test Item Value Reference Range Interpretation Comments GLUCOSE (test code = 2217) 116 MG/DL BUN (test code = 2208) 35 MG/DL CREATININE (test code = 2214) 1.31 MG/DL eGFR AMER. (test code 48 ML/MIN/1.73 = 04158) eGFR NON- AMER. (test 41 ML/MIN/1.73 code = 84898) CALC BUN/CREAT (test code = 27 RATIO [...] code = 2219) 10 U/L COMPREHENSIVE METABOLIC [id number] 00:00:00 Test Item Value Reference Range Interpretation Comments GLUCOSE (test code = 2217) 116 MG/DL BUN (test code = 2208) 35 MG/DL CREATININE (test code = 2214) 1.31 MG/DL eGFR AMER. (test code 48 ML/MIN/1.73 = 88320) eGFR NON- AMER. (test 41 ML/MIN/1.73 code = 47530) CALC BUN/CREAT (test code = 27 RATIO 2235) SODIUM (test code = 2231) 141 MEQ/L POTASSIUM (test code = 2228) 5.0 MEQ/L CHLORIDE (test code = 2215) 104 MEQ/L CARBON DIOXIDE (test code = 22 MEQ/L 6) CALCIUM (test code = 2209) 9.5 MG/DL [...] code = 2219) 10 U/L COMPREHENSIVE METABOLIC [id number] 00:00:00 Test Item Value Reference Range Interpretation Comments GLUCOSE (test code = 2217) 209 MG/DL BUN (test code = 2208) 44 MG/DL CREATININE (test code = 2214) 1.50 MG/DL eGFR AMER. (test code 41 ML/MIN/1.73 = 01705) eGFR NON- AMER. (test 35 ML/MIN/1.73 code = 23804) CALC BUN/CREAT (test code = 29 RATIO [...] code = 2219) 13 U/L COMPREHENSIVE METABOLIC [id number] 00:00:00 Test Item Value Reference Range Interpretation Comments GLUCOSE (test code = 2217) 209 MG/DL BUN (test code = 2208) 44 MG/DL CREATININE (test code = 2214) 1.50 MG/DL eGFR AMER. (test code 41 ML/MIN/1.73 = 55110) eGFR NON- AMER. (test 35 ML/MIN/1.73 code = 28972) CALC BUN/CREAT (test code = 29 RATIO [...] (test code = 2219) 13 U/L LIPID [id number] 00:00:00 Test Item Value Reference Range Interpretation Comments CHOLESTEROL (test code = 2210) 195 MG/DL TRIGLYCERIDES (test code = 2232) 195 MG/DL HDL CHOLESTEROL (test code = 2220) 49 MG/DL CALC LDL CHOL (test code = 2237) 107 MG/DL RISK RATIO LDL/HDL (test code = 2.18 RATIO 2238) LIPID [id number] 00:00:00 Test Item Value Reference Range Interpretation Comments CHOLESTEROL (test code = 2210) 195 MG/DL TRIGLYCERIDES (test code = 2232) 195 MG/DL HDL CHOLESTEROL (test code = 2220) 49 MG/DL CALC LDL CHOL (test code = 2237) 107 MG/DL RISK RATIO LDL/HDL (test code = 2.18 RATIO 2238) CBC W/AUTO [id number] 00:00:00 Test Item Value Reference Range Interpretation [...] code = 1015) 245 K/UL CBC W/AUTO [id number] 00:00:00 Test Item Value Reference Range Interpretation [...] code = 1015) 245 K/UL CBC W/AUTO [id number] 00:00:00 Test Item Value Reference Range Interpretation [...] (test code = 1015) 245 K/UL HEMOGLOBIN [id number] 00:00:00 Test Item Value Reference Range Interpretation Comments HEMOGLOBIN A1c (test code = 93396) 7.8 % HEMOGLOBIN [id number] 00:00:00 Test Item Value Reference Range Interpretation Comments HEMOGLOBIN A1c (test code = 70222) 7.8 % HEMOGLOBIN [id number] 00:00:00 Test Item Value Reference Range Interpretation Comments HEMOGLOBIN A1c (test code = 24786) 7.8 % COMPREHENSIVE METABOLIC [id number] 00:00:00 Test Item Value Reference Range Interpretation Comments GLUCOSE (test code = 2217) 209 MG/DL BUN (test code = 2208) 44 MG/DL CREATININE (test code = 2214) 1.50 MG/DL eGFR AMER. (test code 41 ML/MIN/1.73 = 71443) eGFR NON- AMER. (test 35 ML/MIN/1.73 code = 22053) CALC BUN/CREAT (test code = 29 RATIO [...] code = 2219) 13 U/L COMPREHENSIVE METABOLIC [id number] 00:00:00 Test Item Value Reference Range Interpretation Comments GLUCOSE (test code = 2217) 209 MG/DL BUN (test code = 2208) 44 MG/DL CREATININE (test code = 2214) 1.50 MG/DL eGFR AMER. (test code 41 ML/MIN/1.73 = 76740) eGFR NON- AMER. (test 35 ML/MIN/1.73 code = 92658) CALC BUN/CREAT (test code = 29 RATIO [...] code = 2219) 13 U/L COMPREHENSIVE METABOLIC [id number] 00:00:00 Test Item Value Reference Range Interpretation Comments GLUCOSE (test code = 2217) 209 MG/DL BUN (test code = 2208) 44 MG/DL CREATININE (test code = 2214) 1.50 MG/DL eGFR AMER. (test code 41 ML/MIN/1.73 = 18636) eGFR NON- AMER. (test 35 ML/MIN/1.73 code = 41784) CALC BUN/CREAT (test code = 29 RATIO [...] (test code = 2219) 13 U/L LIPID [id number] 00:00:00 Test Item Value Reference Range Interpretation Comments CHOLESTEROL (test code = 2210) 195 MG/DL TRIGLYCERIDES (test code = 2232) 195 MG/DL HDL CHOLESTEROL (test code = 2220) 49 MG/DL CALC LDL CHOL (test code = 2237) 107 MG/DL RISK RATIO LDL/HDL (test code = 2.18 RATIO 2238) LIPID [id number] 00:00:00 Test Item Value Reference Range Interpretation Comments CHOLESTEROL (test code = 2210) 195 MG/DL TRIGLYCERIDES (test code = 2232) 195 MG/DL HDL CHOLESTEROL (test code = 2220) 49 MG/DL CALC LDL CHOL (test code = 2237) 107 MG/DL RISK RATIO LDL/HDL (test code = 2.18 RATIO 2238) CBC W/AUTO [id number] 00:00:00 Test Item Value Reference Range Interpretation [...] code = 1015) 245 K/UL CBC W/AUTO [id number] 00:00:00 Test Item Value Reference Range Interpretation [...] code = 1015) 245 K/UL CBC W/AUTO [id number] 00:00:00 Test Item Value Reference Range Interpretation [...] (test code = 1015) 245 K/UL HEMOGLOBIN [id number] 00:00:00 Test Item Value Reference Range Interpretation Comments HEMOGLOBIN A1c (test code = 31452) 7.8 % HEMOGLOBIN [id number] 00:00:00 Test Item Value Reference Range Interpretation Comments HEMOGLOBIN A1c (test code = 46793) 7.8 % HEMOGLOBIN [id number] 00:00:00 Test Item Value Reference Range Interpretation Comments HEMOGLOBIN A1c (test code = 70337) 7.8 % LIPID [id number] 00:00:00 Test Item Value Reference Range Interpretation Comments CHOLESTEROL (test code = 2210) 195 MG/DL TRIGLYCERIDES (test code = 2232) 195 MG/DL HDL CHOLESTEROL (test code = 2220) 49 MG/DL CALC LDL CHOL (test code = 2237) 107 MG/DL RISK RATIO LDL/HDL (test code = 2.18 RATIO 2238) CBC W/AUTO [id number] 00:00:00 Test Item Value Reference Range Interpretation [...] code = 1015) 245 K/UL CBC W/AUTO [id number] 00:00:00 Test Item Value Reference Range Interpretation [...] (test code = 1015) 245 K/UL HEMOGLOBIN [id number] 00:00:00 Test Item Value Reference Range Interpretation Comments HEMOGLOBIN A1c (test code = 25637) 7.8 % COMPREHENSIVE METABOLIC [id number] 00:00:00 Test Item Value Reference Range Interpretation Comments GLUCOSE (test code = 2217) 209 MG/DL BUN (test code = 2208) 44 MG/DL CREATININE (test code = 2214) 1.50 MG/DL eGFR AMER. (test code 41 ML/MIN/1.73 = 60886) eGFR NON- AMER. (test 35 ML/MIN/1.73 code = 65550) CALC BUN/CREAT (test code = 29 RATIO [...] code = 2219) 13 U/L COMPREHENSIVE METABOLIC [id number] 00:00:00 Test Item Value Reference Range Interpretation Comments GLUCOSE (test code = 2217) 209 MG/DL BUN (test code = 2208) 44 MG/DL CREATININE (test code = 2214) 1.50 MG/DL eGFR AMER. (test code 41 ML/MIN/1.73 = 25831) eGFR NON- AMER. (test 35 ML/MIN/1.73 code = 75209) CALC BUN/CREAT (test code = 29 RATIO [...] (test code = 2219) 13 U/L LIPID [id number] 00:00:00 Test Item Value Reference Range Interpretation Comments CHOLESTEROL (test code = 2210) 195 MG/DL TRIGLYCERIDES (test code = 2232) 195 MG/DL HDL CHOLESTEROL (test code = 2220) 49 MG/DL CALC LDL CHOL (test code = 2237) 107 MG/DL RISK RATIO LDL/HDL (test code = 2.18 RATIO 2238) LIPID [id number] 00:00:00 Test Item Value Reference Range Interpretation Comments CHOLESTEROL (test code = 2210) 195 MG/DL TRIGLYCERIDES (test code = 2232) 195 MG/DL HDL CHOLESTEROL (test code = 2220) 49 MG/DL CALC LDL CHOL (test code = 2237) 107 MG/DL RISK RATIO LDL/HDL (test code = 2.18 RATIO 2238) HEMOGLOBIN [id number] 00:00:00 Test Item Value Reference Range Interpretation Comments HEMOGLOBIN A1c (test code = 94233) 7.8 % CBC W/AUTO [id number] 00:00:00 Test Item Value Reference Range Interpretation [...] code = 1015) 245 K/UL CBC W/AUTO [id number] 00:00:00 Test Item Value Reference Range Interpretation [...] code = 1015) 245 K/UL CBC W/AUTO [id number] 00:00:00 Test Item Value Reference Range Interpretation [...] (test code = 1015) 245 K/UL HEMOGLOBIN [id number] 00:00:00 Test Item Value Reference Range Interpretation Comments HEMOGLOBIN A1c (test code = 18559) 7.8 % HEMOGLOBIN [id number] 00:00:00 Test Item Value Reference Range Interpretation Comments HEMOGLOBIN A1c (test code = 06531) 7.8 % HEMOGLOBIN [id number] 00:00:00 Test Item Value Reference Range Interpretation Comments HEMOGLOBIN A1c (test code = 05865) 7.8 % COMPREHENSIVE METABOLIC [id number] 00:00:00 Test Item Value Reference Range Interpretation Comments GLUCOSE (test code = 2217) 209 MG/DL BUN (test code = 2208) 44 MG/DL CREATININE (test code = 2214) 1.50 MG/DL eGFR AMER. (test code 41 ML/MIN/1.73 = 61745) eGFR NON- AMER. (test 35 ML/MIN/1.73 code = 88623) CALC BUN/CREAT (test code = 29 RATIO [...] code = 2219) 13 U/L COMPREHENSIVE METABOLIC [id number] 00:00:00 Test Item Value Reference Range Interpretation Comments GLUCOSE (test code = 2217) 209 MG/DL BUN (test code = 2208) 44 MG/DL CREATININE (test code = 2214) 1.50 MG/DL eGFR AMER. (test code 41 ML/MIN/1.73 = 75643) eGFR NON- AMER. (test 35 ML/MIN/1.73 code = 48026) CALC BUN/CREAT (test code = 29 RATIO [...] (test code = 2219) 13 U/L LIPID [id number] 00:00:00 Test Item Value Reference Range Interpretation Comments CHOLESTEROL (test code = 2210) 195 MG/DL TRIGLYCERIDES (test code = 2232) 195 MG/DL HDL CHOLESTEROL (test code = 2220) 49 MG/DL CALC LDL CHOL (test code = 2237) 107 MG/DL RISK RATIO LDL/HDL (test code = 2.18 RATIO 2238) LIPID [id number] 00:00:00 Test Item Value Reference Range Interpretation Comments CHOLESTEROL (test code = 2210) 195 MG/DL TRIGLYCERIDES (test code = 2232) 195 MG/DL HDL CHOLESTEROL (test code = 2220) 49 MG/DL CALC LDL CHOL (test code = 2237) 107 MG/DL RISK RATIO LDL/HDL (test code = 2.18 RATIO 2238) CBC W/AUTO [id number] 00:00:00 Test Item Value Reference Range Interpretation [...] code = 1015) 245 K/UL CBC W/AUTO [id number] 00:00:00 Test Item Value Reference Range Interpretation [...] code = 1015) 245 K/UL CBC W/AUTO [id number] 00:00:00 Test Item Value Reference Range Interpretation [...] (test code = 1015) 245 K/UL HEMOGLOBIN [id number] 00:00:00 Test Item Value Reference Range Interpretation Comments HEMOGLOBIN A1c (test code = 66755) 7.8 % HEMOGLOBIN [id number] 00:00:00 Test Item Value Reference Range Interpretation Comments HEMOGLOBIN A1c (test code = 18604) 7.8 % HEMOGLOBIN [id number] 00:00:00 Test Item Value Reference Range Interpretation Comments HEMOGLOBIN A1c (test code = 17434) 7.8 % COMPREHENSIVE METABOLIC [id number] 00:00:00 Test Item Value Reference Range Interpretation Comments GLUCOSE (test code = 2217) 209 MG/DL BUN (test code = 2208) 44 MG/DL CREATININE (test code = 2214) 1.50 MG/DL eGFR AMER. (test code 41 ML/MIN/1.73 = 11307) eGFR NON- AMER. (test 35 ML/MIN/1.73 code = 99754) CALC BUN/CREAT (test code = 29 RATIO [...] (test code = 2219) 13 U/L LIPID [id number] 00:00:00 Test Item Value Reference Range Interpretation Comments CHOLESTEROL (test code = 2210) 195 MG/DL TRIGLYCERIDES (test code = 2232) 195 MG/DL HDL CHOLESTEROL (test code = 2220) 49 MG/DL CALC LDL CHOL (test code = 2237) 107 MG/DL RISK RATIO LDL/HDL (test code = 2.18 RATIO 2238) CBC W/AUTO [id number] 00:00:00 Test Item Value Reference Range Interpretation [...] code = 1015) 245 K/UL CBC W/AUTO [id number] 00:00:00 Test Item Value Reference Range Interpretation [...] (test code = 1015) 245 K/UL HEMOGLOBIN [id number] 00:00:00 Test Item Value Reference Range Interpretation Comments HEMOGLOBIN A1c (test code = 86369) 7.8 % HEMOGLOBIN [id number] 00:00:00 Test Item Value Reference Range Interpretation Comments HEMOGLOBIN A1c (test code = 25865) 7.8 % COMPREHENSIVE METABOLIC [id number] 00:00:00 Test Item Value Reference Range Interpretation Comments GLUCOSE (test code = 2217) 209 MG/DL BUN (test code = 2208) 44 MG/DL CREATININE (test code = 2214) 1.50 MG/DL eGFR AMER. (test code 41 ML/MIN/1.73 = 64599) eGFR NON- AMER. (test 35 ML/MIN/1.73 code = 03940) CALC BUN/CREAT (test code = 29 RATIO [...] code = 2219) 13 U/L COMPREHENSIVE METABOLIC [id number] 00:00:00 Test Item Value Reference Range Interpretation Comments GLUCOSE (test code = 2217) 209 MG/DL BUN (test code = 2208) 44 MG/DL CREATININE (test code = 2214) 1.50 MG/DL eGFR AMER. (test code 41 ML/MIN/1.73 = 20960) eGFR NON- AMER. (test 35 ML/MIN/1.73 code = 07647) CALC BUN/CREAT (test code = 29 RATIO [...] (test code = 2219) 13 U/L LIPID [id number] 00:00:00 Test Item Value Reference Range Interpretation Comments CHOLESTEROL (test code = 2210) 195 MG/DL TRIGLYCERIDES (test code = 2232) 195 MG/DL HDL CHOLESTEROL (test code = 2220) 49 MG/DL CALC LDL CHOL (test code = 2237) 107 MG/DL RISK RATIO LDL/HDL (test code = 2.18 RATIO 2238) LIPID [id number] 00:00:00 Test Item Value Reference Range Interpretation Comments CHOLESTEROL (test code = 2210) 195 MG/DL TRIGLYCERIDES (test code = 2232) 195 MG/DL HDL CHOLESTEROL (test code = 2220) 49 MG/DL CALC LDL CHOL (test code = 2237) 107 MG/DL RISK RATIO LDL/HDL (test code = 2.18 RATIO 2238) CBC W/AUTO [id number] 00:00:00 Test Item Value Reference Range Interpretation [...] code = 1015) 245 K/UL CBC W/AUTO [id number] 00:00:00 Test Item Value Reference Range Interpretation [...] code = 1015) 245 K/UL CBC W/AUTO [id number] 00:00:00 Test Item Value Reference Range Interpretation [...] (test code = 1015) 245 K/UL HEMOGLOBIN [id number] 00:00:00 Test Item Value Reference Range Interpretation Comments HEMOGLOBIN A1c (test code = 22782) 7.8 % HEMOGLOBIN [id number] 00:00:00 Test Item Value Reference Range Interpretation Comments HEMOGLOBIN A1c (test code = 47073) 7.8 % HEMOGLOBIN [id number] 00:00:00 Test Item Value Reference Range Interpretation Comments HEMOGLOBIN A1c (test code = 10744) 7.8 % COMPREHENSIVE METABOLIC [id number] 00:00:00 Test Item Value Reference Range Interpretation Comments GLUCOSE (test code = 2217) 209 MG/DL BUN (test code = 2208) 44 MG/DL CREATININE (test code = 2214) 1.50 MG/DL eGFR AMER. (test code 41 ML/MIN/1.73 = 37718) eGFR NON- AMER. (test 35 ML/MIN/1.73 code = 10485) CALC BUN/CREAT (test code = 29 RATIO [...] code = 2219) 13 U/L COMPREHENSIVE METABOLIC [id number] 00:00:00 Test Item Value Reference Range Interpretation Comments GLUCOSE (test code = 2217) 209 MG/DL BUN (test code = 2208) 44 MG/DL CREATININE (test code = 2214) 1.50 MG/DL eGFR AMER. (test code 41 ML/MIN/1.73 = 62202) eGFR NON- AMER. (test 35 ML/MIN/1.73 code = 90938) CALC BUN/CREAT (test code = 29 RATIO [...] (test code = 2219) 13 U/L LIPID [id number] 00:00:00 Test Item Value Reference Range Interpretation Comments CHOLESTEROL (test code = 2210) 195 MG/DL TRIGLYCERIDES (test code = 2232) 195 MG/DL HDL CHOLESTEROL (test code = 2220) 49 MG/DL CALC LDL CHOL (test code = 2237) 107 MG/DL RISK RATIO LDL/HDL (test code = 2.18 RATIO 2238) LIPID [id number] 00:00:00 Test Item Value Reference Range Interpretation Comments CHOLESTEROL (test code = 2210) 195 MG/DL TRIGLYCERIDES (test code = 2232) 195 MG/DL HDL CHOLESTEROL (test code = 2220) 49 MG/DL CALC LDL CHOL (test code = 2237) 107 MG/DL RISK RATIO LDL/HDL (test code = 2.18 RATIO 2238) CBC W/AUTO [id number] 00:00:00 Test Item Value Reference Range Interpretation [...] code = 1015) 245 K/UL CBC W/AUTO [id number] 00:00:00 Test Item Value Reference Range Interpretation [...] code = 1015) 245 K/UL CBC W/AUTO [id number] 00:00:00 Test Item Value Reference Range Interpretation [...] (test code = 1015) 245 K/UL HEMOGLOBIN [id number] 00:00:00 Test Item Value Reference Range Interpretation Comments HEMOGLOBIN A1c (test code = 04752) 7.8 % HEMOGLOBIN [id number] 00:00:00 Test Item Value Reference Range Interpretation Comments HEMOGLOBIN A1c (test code = 34450) 7.8 % HEMOGLOBIN [id number] 00:00:00 Test Item Value Reference Range Interpretation Comments HEMOGLOBIN A1c (test code = 74058) 7.8 % CBC W/AUTO DIFF WITH PLATELETS [...] Interpretation Comments HEMOGLOBIN A1c (test code = 81195) 7.3 % HEMOGLOBIN A1c [ADDED]2018-02-14 00:00:00 Test Item Value Reference Range Interpretation Comments HEMOGLOBIN A1c (test code = 43209) 7.3 % HEMOGLOBIN A1c [ADDED]2018-02-14 00:00:00 Test Item Value Reference Range Interpretation Comments HEMOGLOBIN A1c (test code = 86995) 7.3 % LIPID PANEL [ADDED]2018-02-14 00:00:00 Test [...] eGFR AMER. (test code 55 ML/MIN/1.73 = 27149) eGFR NON- AMER. (test 48 ML/MIN/1.73 code = 67998) CALC BUN/CREAT (test code = 17 RATIO [...] eGFR AMER. (test code 55 ML/MIN/1.73 = 85672) eGFR NON- AMER. (test 48 ML/MIN/1.73 code = 27384) CALC BUN/CREAT (test code = 17 RATIO [...] URINE, RANDOM (test code 226.7 MG/DL = 01581) CALC ALBUMIN/CREAT, RND (test 1246 MG/G code = 14038) ALBUMIN/CREATININE RATIO, RANDOM URINE [ADDED]2018-02-14 00:00:00 Test Item Value Reference Range Interpretation Comments CREATININE, URINE, CONC. (test 181.9 MG/DL code = 2072) ALBUMIN, URINE, RANDOM (test code 226.7 MG/DL = 68105) CALC ALBUMIN/CREAT, RND (test 1246 MG/G code = 18274) CBC W/AUTO DIFF WITH PLATELETS [ADDED]2018-02-14 00:00:00 [...] Interpretation Comments HEMOGLOBIN A1c (test code = 02354) 7.3 % HEMOGLOBIN A1c [ADDED]2018-02-14 00:00:00 Test Item Value Reference Range Interpretation Comments HEMOGLOBIN A1c (test code = 34912) 7.3 % HEMOGLOBIN A1c [ADDED]2018-02-14 00:00:00 Test Item Value Reference Range Interpretation Comments HEMOGLOBIN A1c (test code = 72075) 7.3 % HEMOGLOBIN A1c [ADDED]2018-02-14 00:00:00 Test Item Value Reference Range Interpretation Comments HEMOGLOBIN A1c (test code = 50411) 7.3 % LIPID PANEL [ADDED]2018-02-14 00:00:00 Test [...] eGFR AMER. (test code 55 ML/MIN/1.73 = 22025) eGFR NON- AMER. (test 48 ML/MIN/1.73 code = 36640) CALC BUN/CREAT (test code = 17 RATIO [...] eGFR AMER. (test code 55 ML/MIN/1.73 = 99110) eGFR NON- AMER. (test 48 ML/MIN/1.73 code = 87583) CALC BUN/CREAT (test code = 17 RATIO [...] Interpretation Comments HEMOGLOBIN A1c (test code = 26233) 7.3 % ALBUMIN/CREATININE RATIO, RANDOM URINE [ADDED]2018-02-14 00:00:00 Test Item Value Reference Range Interpretation Comments CREATININE, URINE, CONC. (test 181.9 MG/DL code = 2072) ALBUMIN, URINE, RANDOM (test code 226.7 MG/DL = 52046) CALC ALBUMIN/CREAT, RND (test 1246 MG/G code = 76691) ALBUMIN/CREATININE RATIO, RANDOM URINE [ADDED]2018-02-14 00:00:00 Test Item Value Reference Range Interpretation Comments CREATININE, URINE, CONC. (test 181.9 MG/DL code = 2072) ALBUMIN, URINE, RANDOM (test code 226.7 MG/DL = 94138) CALC ALBUMIN/CREAT, RND (test 1246 MG/G code = 98994) LIPID PANEL [ADDED]2018-02-14 00:00:00 Test Item Value [...] Interpretation Comments HEMOGLOBIN A1c (test code = 98310) 7.3 % HEMOGLOBIN A1c [ADDED]2018-02-14 00:00:00 Test Item Value Reference Range Interpretation Comments HEMOGLOBIN A1c (test code = 65708) 7.3 % COMPREHENSIVE METABOLIC PANEL [ADDED]2018-02-14 00:00:00 Test Item Value Reference Range Interpretation Comments GLUCOSE (test code = 2217) 177 MG/DL BUN (test code = 2208) 20 MG/DL CREATININE (test code = 2214) 1.17 MG/DL eGFR AMER. (test code 55 ML/MIN/1.73 = 58938) eGFR NON- AMER. (test 48 ML/MIN/1.73 code = 26424) CALC BUN/CREAT (test code = 17 RATIO [...] Interpretation Comments HEMOGLOBIN A1c (test code = 80510) 7.3 % LIPID PANEL [ADDED]2018-02-14 00:00:00 Test [...] eGFR AMER. (test code 55 ML/MIN/1.73 = 85268) eGFR NON- AMER. (test 48 ML/MIN/1.73 code = 17951) CALC BUN/CREAT (test code = 17 RATIO [...] eGFR AMER. (test code 55 ML/MIN/1.73 = 47968) eGFR NON- AMER. (test 48 ML/MIN/1.73 code = 46145) CALC BUN/CREAT (test code = 17 RATIO [...] URINE, RANDOM (test code 226.7 MG/DL = 61184) CALC ALBUMIN/CREAT, RND (test 1246 MG/G code = 36857) ALBUMIN/CREATININE RATIO, RANDOM URINE [ADDED]2018-02-14 00:00:00 Test Item Value Reference Range Interpretation Comments CREATININE, URINE, CONC. (test 181.9 MG/DL code = 2072) ALBUMIN, URINE, RANDOM (test code 226.7 MG/DL = 73010) CALC ALBUMIN/CREAT, RND (test 1246 MG/G code = 64172) ALBUMIN/CREATININE RATIO, RANDOM URINE [ADDED]2018-02-14 00:00:00 Test Item Value Reference Range Interpretation Comments CREATININE, URINE, CONC. (test 181.9 MG/DL code = 2072) ALBUMIN, URINE, RANDOM (test code 226.7 MG/DL = 34403) CALC ALBUMIN/CREAT, RND (test 1246 MG/G code = 36965) CBC W/AUTO DIFF WITH PLATELETS [ADDED]2018-02-14 00:00:00 [...] Interpretation Comments HEMOGLOBIN A1c (test code = 29625) 7.3 % HEMOGLOBIN A1c [ADDED]2018-02-14 00:00:00 Test Item Value Reference Range Interpretation Comments HEMOGLOBIN A1c (test code = 23137) 7.3 % HEMOGLOBIN A1c [ADDED]2018-02-14 00:00:00 Test Item Value Reference Range Interpretation Comments HEMOGLOBIN A1c (test code = 89340) 7.3 % LIPID PANEL [ADDED]2018-02-14 00:00:00 Test [...] eGFR AMER. (test code 55 ML/MIN/1.73 = 42912) eGFR NON- AMER. (test 48 ML/MIN/1.73 code = 96443) CALC BUN/CREAT (test code = 17 RATIO [...] eGFR AMER. (test code 55 ML/MIN/1.73 = 35345) eGFR NON- AMER. (test 48 ML/MIN/1.73 code = 02346) CALC BUN/CREAT (test code = 17 RATIO [...] URINE, RANDOM (test code 226.7 MG/DL = 15896) CALC ALBUMIN/CREAT, RND (test 1246 MG/G code = 32774) ALBUMIN/CREATININE RATIO, RANDOM URINE [ADDED]2018-02-14 00:00:00 Test Item Value Reference Range Interpretation Comments CREATININE, URINE, CONC. (test 181.9 MG/DL code = 2072) ALBUMIN, URINE, RANDOM (test code 226.7 MG/DL = 47565) CALC ALBUMIN/CREAT, RND (test 1246 MG/G code = 13221) CBC W/AUTO DIFF WITH PLATELETS [ADDED]2018-02-14 00:00:00 [...] Interpretation Comments HEMOGLOBIN A1c (test code = 00822) 7.3 % HEMOGLOBIN A1c [ADDED]2018-02-14 00:00:00 Test Item Value Reference Range Interpretation Comments HEMOGLOBIN A1c (test code = 90277) 7.3 % LIPID PANEL [ADDED]2018-02-14 00:00:00 Test [...] eGFR AMER. (test code 55 ML/MIN/1.73 = 20329) eGFR NON- AMER. (test 48 ML/MIN/1.73 code = 79945) CALC BUN/CREAT (test code = 17 RATIO [...] URINE, RANDOM (test code 226.7 MG/DL = 06689) CALC ALBUMIN/CREAT, RND (test 1246 MG/G code = 88557) CBC W/AUTO DIFF WITH PLATELETS [ADDED]2018-02-14 00:00:00 [...] Interpretation Comments HEMOGLOBIN A1c (test code = 61956) 7.3 % HEMOGLOBIN A1c [ADDED]2018-02-14 00:00:00 Test Item Value Reference Range Interpretation Comments HEMOGLOBIN A1c (test code = 15059) 7.3 % HEMOGLOBIN A1c [ADDED]2018-02-14 00:00:00 Test Item Value Reference Range Interpretation Comments HEMOGLOBIN A1c (test code = 92438) 7.3 % LIPID PANEL [ADDED]2018-02-14 00:00:00 Test [...] eGFR AMER. (test code 55 ML/MIN/1.73 = 68451) eGFR NON- AMER. (test 48 ML/MIN/1.73 code = 31356) CALC BUN/CREAT (test code = 17 RATIO [...] eGFR AMER. (test code 55 ML/MIN/1.73 = 22014) eGFR NON- AMER. (test 48 ML/MIN/1.73 code = 98081) CALC BUN/CREAT (test code = 17 RATIO [...] URINE, RANDOM (test code 226.7 MG/DL = 76344) CALC ALBUMIN/CREAT, RND (test 1246 MG/G code = 80477) ALBUMIN/CREATININE RATIO, RANDOM URINE [ADDED]2018-02-14 00:00:00 Test Item Value Reference Range Interpretation Comments CREATININE, URINE, CONC. (test 181.9 MG/DL code = 2072) ALBUMIN, URINE, RANDOM (test code 226.7 MG/DL = 05364) CALC ALBUMIN/CREAT, RND (test 1246 MG/G code = 38528) CBC W/AUTO DIFF WITH PLATELETS [ADDED]2018-02-14 00:00:00 [...] Interpretation Comments HEMOGLOBIN A1c (test code = 45236) 7.3 % HEMOGLOBIN A1c [ADDED]2018-02-14 00:00:00 Test Item Value Reference Range Interpretation Comments HEMOGLOBIN A1c (test code = 33123) 7.3 % HEMOGLOBIN A1c [ADDED]2018-02-14 00:00:00 Test Item Value Reference Range Interpretation Comments HEMOGLOBIN A1c (test code = 79185) 7.3 % LIPID PANEL [ADDED]2018-02-14 00:00:00 Test [...] eGFR AMER. (test code 55 ML/MIN/1.73 = 70386) eGFR NON- AMER. (test 48 ML/MIN/1.73 code = 88066) CALC BUN/CREAT (test code = 17 RATIO [...] eGFR AMER. (test code 55 ML/MIN/1.73 = 86973) eGFR NON- AMER. (test 48 ML/MIN/1.73 code = 85007) CALC BUN/CREAT (test code = 17 RATIO [...] URINE, RANDOM (test code 226.7 MG/DL = 61221) CALC ALBUMIN/CREAT, RND (test 1246 MG/G code = 84057) ALBUMIN/CREATININE RATIO, RANDOM URINE [ADDED]2018-02-14 00:00:00 Test Item Value Reference Range Interpretation Comments CREATININE, URINE, CONC. (test 181.9 MG/DL code = 2072) ALBUMIN, URINE, RANDOM (test code 226.7 MG/DL = 55580) CALC ALBUMIN/CREAT, RND (test 1246 MG/G code = 53105) WEEMS AND FURNACE MASON [id number] 00:00:00 Test Item Value Reference Range Interpretation Comments WEEMS (Sm) ANTIBODY (test code = <0.2 AI 84646) FURNACE MASON ANTIBODY (test code = 00761) 6.4 AI HEMOGLOBIN [id number] 00:00:00 Test Item Value Reference Range Interpretation Comments HEMOGLOBIN A1c (test code = 21060) 7.5 % HEMOGLOBIN [id number] 00:00:00 Test Item Value Reference Range Interpretation Comments HEMOGLOBIN A1c (test code = 72577) 7.5 % WEEMS AND FURNACE MASON [id number] 00:00:00 Test Item Value Reference Range Interpretation Comments WEEMS (Sm) ANTIBODY (test code = <0.2 AI 30046) FURNACE MASON ANTIBODY (test code = 10164) 6.4 AI HEMOGLOBIN [id number] 00:00:00 Test Item Value Reference Range Interpretation Comments HEMOGLOBIN A1c (test code = 86738) 7.5 % DNA DS ANTIBODY [id number] 00:00:00 Test Item Value Reference Range Interpretation Comments dsDNA ANTIBODY REFLEX (test code = NEGATIVE 07341) LIPID PANEL [ADDED]2017-07-31 00:00:00 Test Item Value [...] = 1.51 RATIO 2238) DNA DS ANTIBODY [id number] 00:00:00 Test Item Value Reference Range Interpretation Comments dsDNA ANTIBODY REFLEX (test code = NEGATIVE 22699) DNA DS [id number] 00:00:00 Test Item Value Reference Range Interpretation Comments dsDNA ANTIBODY (test code = 4287) <1.0 IU/ML DNA DS [id number] 00:00:00 Test Item Value Reference Range Interpretation Comments dsDNA ANTIBODY (test code = 4287) <1.0 IU/ML WE[facility]S [facility]NACE [facility] [id number] 00:00:00 Test Item Value Reference Range Interpretation Comments WEEMS (Sm) ANTIBODY (test code = <0.2 AI 89367) FURNACE [facility]ON ANTIBODY (test code = 84191) 6.4 AI HEMOGLOBIN [id number] 00:00:00 Test Item Value Reference Range Interpretation Comments HEMOGLOBIN A1c (test code = 73559) 7.5 % WE[facility] [id number] 00:00:00 Test Item Value Reference Range Interpretation Comments WEEMS (Sm) ANTIBODY (test code = <0.2 AI 05888) FURNACE [facility] ANTIBODY (test code = 03533) 6.4 AI HEMOGLOBIN [id number] 00:00:00 Test Item Value Reference Range Interpretation Comments HEMOGLOBIN A1c (test code = 03779) 7.5 % WEEMS AND F[facility]NA[facility] [id number] 00:00:00 Test Item Value Reference Range Interpretation Comments WEEMS (Sm) ANTIBODY (test code = <0.2 AI 93982) FURNACE [facility]ON ANTIBODY (test code = 01991) 6.4 AI HEMOGLOBIN [id number] 00:00:00 Test Item Value Reference Range Interpretation Comments HEMOGLOBIN A1c (test code = 73599) 7.5 % HEMOGLOBIN [id number] 00:00:00 Test Item Value Reference Range Interpretation Comments HEMOGLOBIN A1c (test code = 40008) 7.5 % HEMOGLOBIN [id number] 00:00:00 Test Item Value Reference Range Interpretation Comments HEMOGLOBIN A1c (test code = 33891) 7.5 % LIPID PANEL [ADDED]2017-07-31 00:00:00 Test [...] = 1.51 RATIO 2238) DNA DS ANTIBODY [id number] 00:00:00 Test Item Value Reference Range Interpretation Comments dsDNA ANTIBODY REFLEX (test code = NEGATIVE 65340) DNA DS ANTIBODY [id number] 00:00:00 Test Item Value Reference Range Interpretation Comments dsDNA ANTIBODY REFLEX (test code = NEGATIVE 99537) DNA DS ANTIBODY [id number] 00:00:00 Test Item Value Reference Range Interpretation Comments dsDNA ANTIBODY REFLEX (test code = NEGATIVE 23593) LIPID PANEL [ADDED]2017-07-31 00:00:00 Test Item Value Reference Range Interpretation Comments CHOLESTEROL (test code = 2210) 179 MG/DL TRIGLYCERIDES (test code = 2232) 193 MG/DL HDL CHOLESTEROL (test code = 2220) 56 MG/DL CALC LDL CHOL (test code = 2237) 84 MG/DL RISK RATIO LDL/HDL (test code = 1.51 RATIO 2238) DNA DS [id number] 00:00:00 Test Item Value Reference Range Interpretation Comments dsDNA ANTIBODY (test code = 4287) <1.0 IU/ML DNA DS [id number] 00:00:00 Test Item Value Reference Range Interpretation Comments dsDNA ANTIBODY (test code = 4287) <1.0 IU/ML DNA DS [id number] 00:00:00 Test Item Value Reference Range Interpretation Comments dsDNA ANTIBODY (test code = 4287) <1.0 IU/ML [facility] [id number] 00:00:00 Test Item Value Reference Range Interpretation Comments WEEMS (Sm) ANTIBODY (test code = <0.2 AI 51490) FURNACE [facility] ANTIBODY (test code = 31026) 6.4 AI [facility] [id number] 00:00:00 Test Item Value Reference Range Interpretation Comments WEEMS (Sm) ANTIBODY (test code = <0.2 AI 90751) FURNACE [facility] ANTIBODY (test code = 64331) 6.4 AI HEMOGLOBIN [id number] 00:00:00 Test Item Value Reference Range Interpretation Comments HEMOGLOBIN A1c (test code = 38884) 7.5 % HEMOGLOBIN [id number] 00:00:00 Test Item Value Reference Range Interpretation Comments HEMOGLOBIN A1c (test code = 54896) 7.5 % HEMOGLOBIN [id number] 00:00:00 Test Item Value Reference Range Interpretation Comments HEMOGLOBIN A1c (test code = 60776) 7.5 % LIPID PANEL [ADDED]2017-07-31 00:00:00 Test [...] = 1.51 RATIO 2238) DNA DS ANTIBODY [id number] 00:00:00 Test Item Value Reference Range Interpretation Comments dsDNA ANTIBODY REFLEX (test code = NEGATIVE 20326) DNA DS ANTIBODY [id number] 00:00:00 Test Item Value Reference Range Interpretation Comments dsDNA ANTIBODY REFLEX (test code = NEGATIVE 94732) DNA DS [id number] 00:00:00 Test Item Value Reference Range Interpretation Comments dsDNA ANTIBODY (test code = 4287) <1.0 IU/ML DNA DS [id number] 00:00:00 Test Item Value Reference Range Interpretation Comments dsDNA ANTIBODY (test code = 4287) <1.0 IU/ML [facility] [id number] 00:00:00 Test Item Value Reference Range Interpretation Comments WEEMS (Sm) ANTIBODY (test code = <0.2 AI 93429) FURNACE [facility] ANTIBODY (test code = 49020) 6.4 AI HEMOGLOBIN [id number] 00:00:00 Test Item Value Reference Range Interpretation Comments HEMOGLOBIN A1c (test code = 77625) 7.5 % WE[facility] [id number] 00:00:00 Test Item Value Reference Range Interpretation Comments WEEMS (Sm) ANTIBODY (test code = <0.2 AI 32075) FURNACE [facility] ANTIBODY (test code = 43432) 6.4 AI HEMOGLOBIN [id number] 00:00:00 Test Item Value Reference Range Interpretation Comments HEMOGLOBIN A1c (test code = 15629) 7.5 % HEMOGLOBIN [id number] 00:00:00 Test Item Value Reference Range Interpretation Comments HEMOGLOBIN A1c (test code = 78802) 7.5 % DNA DS ANTIBODY [id number] 00:00:00 Test Item Value Reference Range Interpretation Comments dsDNA ANTIBODY REFLEX (test code = NEGATIVE 53711) LIPID PANEL [ADDED]2017-07-31 00:00:00 Test Item Value [...] = 1.51 RATIO 2238) DNA DS ANTIBODY [id number] 00:00:00 Test Item Value Reference Range Interpretation Comments dsDNA ANTIBODY REFLEX (test code = NEGATIVE 47348) DNA DS [id number] 00:00:00 Test Item Value Reference Range Interpretation Comments dsDNA ANTIBODY (test code = 4287) <1.0 IU/ML DNA DS [id number] 00:00:00 Test Item Value Reference Range Interpretation Comments dsDNA ANTIBODY (test code = 4287) <1.0 IU/ML [facility] [id number] 00:00:00 Test Item Value Reference Range Interpretation Comments WEEMS (Sm) ANTIBODY (test code = <0.2 AI 07059) FURNACE [facility] ANTIBODY (test code = 96437) 6.4 AI HEMOGLOBIN [id number] 00:00:00 Test Item Value Reference Range Interpretation Comments HEMOGLOBIN A1c (test code = 85802) 7.5 % HEMOGLOBIN [id number] 00:00:00 Test Item Value Reference Range Interpretation Comments HEMOGLOBIN A1c (test code = 07301) 7.5 % LIPID PANEL [ADDED]2017-07-31 00:00:00 Test Item Value Reference Range Interpretation Comments CHOLESTEROL (test code = 2210) 179 MG/DL TRIGLYCERIDES (test code = 2232) 193 MG/DL HDL CHOLESTEROL (test code = 2220) 56 MG/DL CALC LDL CHOL (test code = 2237) 84 MG/DL RISK RATIO LDL/HDL (test code = 1.51 RATIO 2238) DNA DS ANTIBODY [id number] 00:00:00 Test Item Value Reference Range Interpretation Comments dsDNA ANTIBODY REFLEX (test code = NEGATIVE 28755) DNA DS [id number] 00:00:00 Test Item Value Reference Range Interpretation Comments dsDNA ANTIBODY (test code = 4287) <1.0 IU/ML HEMOGLOBIN [id number] 00:00:00 Test Item Value Reference Range Interpretation Comments HEMOGLOBIN A1c (test code = 44364) 7.5 % HEMOGLOBIN [id number] 00:00:00 Test Item Value Reference Range Interpretation Comments HEMOGLOBIN A1c (test code = 31080) 7.5 % [facility] [id number] 00:00:00 Test Item Value Reference Range Interpretation Comments WEEMS (Sm) ANTIBODY (test code = <0.2 AI 36706) FURNACE [facility] ANTIBODY (test code = 11387) 6.4 AI HEMOGLOBIN [id number] 00:00:00 Test Item Value Reference Range Interpretation Comments HEMOGLOBIN A1c (test code = 54424) 7.5 % [facility] [id number] 00:00:00 Test Item Value Reference Range Interpretation Comments WEEMS (Sm) ANTIBODY (test code = <0.2 AI 69763) FURNACE [facility] ANTIBODY (test code = 90032) 6.4 AI DNA DS ANTIBODY [id number] 00:00:00 Test Item Value Reference Range Interpretation Comments dsDNA ANTIBODY REFLEX (test code = NEGATIVE 83909) DNA DS ANTIBODY [id number] 00:00:00 Test Item Value Reference Range Interpretation Comments dsDNA ANTIBODY REFLEX (test code = NEGATIVE 07997) LIPID PANEL [ADDED]2017-07-31 00:00:00 Test Item Value [...] code = 1.51 RATIO 2238) DNA DS [id number] 00:00:00 Test Item Value Reference Range Interpretation Comments dsDNA ANTIBODY (test code = 4287) <1.0 IU/ML DNA DS [id number] 00:00:00 Test Item Value Reference Range Interpretation Comments dsDNA ANTIBODY (test code = 4287) <1.0 IU/ML HEMOGLOBIN [id number] 00:00:00 Test Item Value Reference Range Interpretation Comments HEMOGLOBIN A1c (test code = 61273) 7.5 % [facility] [id number] 00:00:00 Test Item Value Reference Range Interpretation Comments WEEMS (Sm) ANTIBODY (test code = <0.2 AI 89769) FURNACE [facility] ANTIBODY (test code = 00055) 6.4 AI HEMOGLOBIN [id number] 00:00:00 Test Item Value Reference Range Interpretation Comments HEMOGLOBIN A1c (test code = 54970) 7.5 % HEMOGLOBIN [id number] 00:00:00 Test Item Value Reference Range Interpretation Comments HEMOGLOBIN A1c (test code = 31092) 7.5 % [facility] [id number] 00:00:00 Test Item Value Reference Range Interpretation Comments WEEMS (Sm) ANTIBODY (test code = <0.2 AI 45756) FURNACE [facility] ANTIBODY (test code = 55887) 6.4 AI DNA DS ANTIBODY [id number] 00:00:00 Test Item Value Reference Range Interpretation Comments dsDNA ANTIBODY REFLEX (test code = NEGATIVE 03334) LIPID PANEL [ADDED]2017-07-31 00:00:00 Test Item Value [...] = 1.51 RATIO 2238) DNA DS ANTIBODY [id number] 00:00:00 Test Item Value Reference Range Interpretation Comments dsDNA ANTIBODY REFLEX (test code = NEGATIVE 12163) DNA DS [id number] 00:00:00 Test Item Value Reference Range Interpretation Comments dsDNA ANTIBODY (test code = 4287) <1.0 IU/ML DNA DS [id number] 00:00:00 Test Item Value Reference Range Interpretation Comments dsDNA ANTIBODY (test code = 4287) <1.0 IU/ML ARMEN TITER AND PATTERN [REFLEX]2017-07-18 00:00:00 Test Item Value Reference Range Interpretation Comments PATTERN (test code = 92874) SS-A ARMEN TITER (test code = 3550) 1:40 TITER METHOD (test code = 27651) (NOTE) ARMEN TITER AND PATTERN [REFLEX]2017-07-18 00:00:00 Test Item Value Reference Range Interpretation Comments PATTERN (test code = 49020) SS-A ARMEN TITER (test code = 3550) 1:40 TITER METHOD (test code = 16364) (NOTE) ARMEN TITER AND PATTERN [REFLEX]2017-07-18 00:00:00 Test Item Value Reference Range Interpretation Comments PATTERN (test code = 37654) SS-A ARMEN TITER (test code = 3550) 1:40 TITER METHOD (test code = 88898) (NOTE) ARMEN TITER AND PATTERN [REFLEX]2017-07-18 00:00:00 Test Item Value Reference Range Interpretation Comments PATTERN (test code = 75893) SS-A ARMEN TITER (test code = 3550) 1:40 TITER METHOD (test code = 43044) (NOTE) ARMEN TITER AND PATTERN [REFLEX]2017-07-18 00:00:00 Test Item Value Reference Range Interpretation Comments PATTERN (test code = 86149) SS-A ARMEN TITER (test code = 3550) 1:40 TITER METHOD (test code = 44032) (NOTE) ARMEN TITER AND PATTERN [REFLEX]2017-07-18 00:00:00 Test Item Value Reference Range Interpretation Comments PATTERN (test code = 99438) SS-A ARMEN TITER (test code = 3550) 1:40 TITER METHOD (test code = 01797) (NOTE) ARMEN TITER AND PATTERN [REFLEX]2017-07-18 00:00:00 Test Item Value Reference Range Interpretation Comments PATTERN (test code = 03838) SS-A ARMEN TITER (test code = 3550) 1:40 TITER METHOD (test code = 90198) (NOTE) ARMEN TITER AND PATTERN [REFLEX]2017-07-18 00:00:00 Test Item Value Reference Range Interpretation Comments PATTERN (test code = 15252) SS-A ARMEN TITER (test code = 3550) 1:40 TITER METHOD (test code = 27174) (NOTE) VITAMIN D, 25 [id number] 00:00:00 Test Item Value Reference Range Interpretation Comments VITAMIN D, 25 OH (test code = 4958) 24 NG/ML VITAMIN D, 25 [id number] 00:00:00 Test Item Value Reference Range Interpretation Comments VITAMIN D, 25 OH (test code = 4958) 24 NG/ML RHEUMATOID FACTOR, [id number] 00:00:00 Test Item Value Reference Range Interpretation Comments RHEUMATOID FACTOR, QUANT (test code 11 IU/ML = 3502) RHEUMATOID FACTOR, [id number] 00:00:00 Test Item Value Reference Range Interpretation Comments RHEUMATOID FACTOR, QUANT (test code 11 IU/ML = 3502) RHEUMATOID FACTOR, [id number] 00:00:00 Test Item Value Reference Range Interpretation Comments RHEUMATOID FACTOR, QUANT (test code 11 IU/ML = 3502) SEDIMENTATION [id number] 00:00:00 Test Item Value Reference Range Interpretation Comments SEDIMENTATION RATE (test code = 40 MM/HOUR 1017) SEDIMENTATION [id number] 00:00:00 Test Item Value Reference Range Interpretation Comments SEDIMENTATION RATE (test code = 40 MM/HOUR 1017) C-REACTIVE [id number] 00:00:00 Test Item Value Reference Range Interpretation Comments C-REACTIVE PROTEIN (test code = 0.2 MG/DL 3513) C-REACTIVE [id number] 00:00:00 Test Item Value Reference Range Interpretation Comments C-REACTIVE PROTEIN (test code = 0.2 MG/DL 3513) ARMEN (ANTI-NUCLEAR AB) WITH REFLEX [id number] 00:00:00 Test Item Value Reference Range Interpretation Comments ANTI-NUCLEAR ANTIBODIES (test code = POSITIVE 3506) ARMEN (ANTI-NUCLEAR AB) WITH REFLEX [id number] 00:00:00 Test Item Value Reference Range Interpretation Comments ANTI-NUCLEAR ANTIBODIES (test code = POSITIVE 3506) VITAMIN D, 25 [id number] 00:00:00 Test Item Value Reference Range Interpretation Comments VITAMIN D, 25 OH (test code = 4958) 24 NG/ML VITAMIN D, 25 [id number] 00:00:00 Test Item Value Reference Range Interpretation Comments VITAMIN D, 25 OH (test code = 4958) 24 NG/ML VITAMIN D, 25 [id number] 00:00:00 Test Item Value Reference Range Interpretation Comments VITAMIN D, 25 OH (test code = 4958) 24 NG/ML RHEUMATOID FACTOR, [id number] 00:00:00 Test Item Value Reference Range Interpretation Comments RHEUMATOID FACTOR, QUANT (test code 11 IU/ML = 3502) RHEUMATOID FACTOR, [id number] 00:00:00 Test Item Value Reference Range Interpretation Comments RHEUMATOID FACTOR, QUANT (test code 11 IU/ML = 3502) RHEUMATOID FACTOR, [id number] 00:00:00 Test Item Value Reference Range Interpretation Comments RHEUMATOID FACTOR, QUANT (test code 11 IU/ML = 3502) RHEUMATOID FACTOR, [id number] 00:00:00 Test Item Value Reference Range Interpretation Comments RHEUMATOID FACTOR, QUANT (test code 11 IU/ML = 3502) SEDIMENTATION [id number] 00:00:00 Test Item Value Reference Range Interpretation Comments SEDIMENTATION RATE (test code = 40 MM/HOUR 1017) SEDIMENTATION [id number] 00:00:00 Test Item Value Reference Range Interpretation Comments SEDIMENTATION RATE (test code = 40 MM/HOUR 1017) C-REACTIVE [id number] 00:00:00 Test Item Value Reference Range Interpretation Comments C-REACTIVE PROTEIN (test code = 0.2 MG/DL 3513) C-REACTIVE [id number] 00:00:00 Test Item Value Reference Range Interpretation Comments C-REACTIVE PROTEIN (test code = 0.2 MG/DL 3513) ARMEN (ANTI-NUCLEAR AB) WITH REFLEX [id number] 00:00:00 Test Item Value Reference Range Interpretation Comments ANTI-NUCLEAR ANTIBODIES (test code = POSITIVE 3506) ARMEN (ANTI-NUCLEAR AB) WITH REFLEX [id number] 00:00:00 Test Item Value Reference Range Interpretation Comments ANTI-NUCLEAR ANTIBODIES (test code = POSITIVE 3506) RHEUMATOID FACTOR, [id number] 00:00:00 Test Item Value Reference Range Interpretation Comments RHEUMATOID FACTOR, QUANT (test code 11 IU/ML = 3502) SEDIMENTATION [id number] 00:00:00 Test Item Value Reference Range Interpretation Comments SEDIMENTATION RATE (test code = 40 MM/HOUR 1017) VITAMIN D, 25 [id number] 00:00:00 Test Item Value Reference Range Interpretation Comments VITAMIN D, 25 OH (test code = 4958) 24 NG/ML VITAMIN D, 25 [id number] 00:00:00 Test Item Value Reference Range Interpretation Comments VITAMIN D, 25 OH (test code = 4958) 24 NG/ML RHEUMATOID FACTOR, [id number] 00:00:00 Test Item Value Reference Range Interpretation Comments RHEUMATOID FACTOR, QUANT (test code 11 IU/ML = 3502) C-REACTIVE [id number] 00:00:00 Test Item Value Reference Range Interpretation Comments C-REACTIVE PROTEIN (test code = 0.2 MG/DL 3513) RHEUMATOID FACTOR, [id number] 00:00:00 Test Item Value Reference Range Interpretation Comments RHEUMATOID FACTOR, QUANT (test code 11 IU/ML = 3502) RHEUMATOID FACTOR, [id number] 00:00:00 Test Item Value Reference Range Interpretation Comments RHEUMATOID FACTOR, QUANT (test code 11 IU/ML = 3502) SEDIMENTATION [id number] 00:00:00 Test Item Value Reference Range Interpretation Comments SEDIMENTATION RATE (test code = 40 MM/HOUR 1017) SEDIMENTATION [id number] 00:00:00 Test Item Value Reference Range Interpretation Comments SEDIMENTATION RATE (test code = 40 MM/HOUR 1017) ARMEN (ANTI-NUCLEAR AB) WITH REFLEX [id number] 00:00:00 Test Item Value Reference Range Interpretation Comments ANTI-NUCLEAR ANTIBODIES (test code = POSITIVE 3506) C-REACTIVE [id number] 00:00:00 Test Item Value Reference Range Interpretation Comments C-REACTIVE PROTEIN (test code = 0.2 MG/DL 3513) C-REACTIVE [id number] 00:00:00 Test Item Value Reference Range Interpretation Comments C-REACTIVE PROTEIN (test code = 0.2 MG/DL 3513) ARMEN (ANTI-NUCLEAR AB) WITH REFLEX [id number] 00:00:00 Test Item Value Reference Range Interpretation Comments ANTI-NUCLEAR ANTIBODIES (test code = POSITIVE 3506) ARMEN (ANTI-NUCLEAR AB) WITH REFLEX [id number] 00:00:00 Test Item Value Reference Range Interpretation Comments ANTI-NUCLEAR ANTIBODIES (test code = POSITIVE 3506) VITAMIN D, 25 [id number] 00:00:00 Test Item Value Reference Range Interpretation Comments VITAMIN D, 25 OH (test code = 4958) 24 NG/ML VITAMIN D, 25 [id number] 00:00:00 Test Item Value Reference Range Interpretation Comments VITAMIN D, 25 OH (test code = 4958) 24 NG/ML RHEUMATOID FACTOR, [id number] 00:00:00 Test Item Value Reference Range Interpretation Comments RHEUMATOID FACTOR, QUANT (test code 11 IU/ML = 3502) RHEUMATOID FACTOR, [id number] 00:00:00 Test Item Value Reference Range Interpretation Comments RHEUMATOID FACTOR, QUANT (test code 11 IU/ML = 3502) RHEUMATOID FACTOR, [id number] 00:00:00 Test Item Value Reference Range Interpretation Comments RHEUMATOID FACTOR, QUANT (test code 11 IU/ML = 3502) SEDIMENTATION [id number] 00:00:00 Test Item Value Reference Range Interpretation Comments SEDIMENTATION RATE (test code = 40 MM/HOUR 1017) SEDIMENTATION [id number] 00:00:00 Test Item Value Reference Range Interpretation Comments SEDIMENTATION RATE (test code = 40 MM/HOUR 1017) C-REACTIVE [id number] 00:00:00 Test Item Value Reference Range Interpretation Comments C-REACTIVE PROTEIN (test code = 0.2 MG/DL 3513) C-REACTIVE [id number] 00:00:00 Test Item Value Reference Range Interpretation Comments C-REACTIVE PROTEIN (test code = 0.2 MG/DL 3513) ARMEN (ANTI-NUCLEAR AB) WITH REFLEX [id number] 00:00:00 Test Item Value Reference Range Interpretation Comments ANTI-NUCLEAR ANTIBODIES (test code = POSITIVE 3506) ARMEN (ANTI-NUCLEAR AB) WITH REFLEX [id number] 00:00:00 Test Item Value Reference Range Interpretation Comments ANTI-NUCLEAR ANTIBODIES (test code = POSITIVE 3506) VITAMIN D, 25 [id number] 00:00:00 Test Item Value Reference Range Interpretation Comments VITAMIN D, 25 OH (test code = 4958) 24 NG/ML RHEUMATOID FACTOR, [id number] 00:00:00 Test Item Value Reference Range Interpretation Comments RHEUMATOID FACTOR, QUANT (test code 11 IU/ML = 3502) RHEUMATOID FACTOR, [id number] 00:00:00 Test Item Value Reference Range Interpretation Comments RHEUMATOID FACTOR, QUANT (test code 11 IU/ML = 3502) SEDIMENTATION [id number] 00:00:00 Test Item Value Reference Range Interpretation Comments SEDIMENTATION RATE (test code = 40 MM/HOUR 1017) C-REACTIVE [id number] 00:00:00 Test Item Value Reference Range Interpretation Comments C-REACTIVE PROTEIN (test code = 0.2 MG/DL 3513) ARMEN (ANTI-NUCLEAR AB) WITH REFLEX [id number] 00:00:00 Test Item Value Reference Range Interpretation Comments ANTI-NUCLEAR ANTIBODIES (test code = POSITIVE 3506) VITAMIN D, 25 [id number] 00:00:00 Test Item Value Reference Range Interpretation Comments VITAMIN D, 25 OH (test code = 4958) 24 NG/ML VITAMIN D, 25 [id number] 00:00:00 Test Item Value Reference Range Interpretation Comments VITAMIN D, 25 OH (test code = 4958) 24 NG/ML RHEUMATOID FACTOR, [id number] 00:00:00 Test Item Value Reference Range Interpretation Comments RHEUMATOID FACTOR, QUANT (test code 11 IU/ML = 3502) RHEUMATOID FACTOR, [id number] 00:00:00 Test Item Value Reference Range Interpretation Comments RHEUMATOID FACTOR, QUANT (test code 11 IU/ML = 3502) RHEUMATOID FACTOR, [id number] 00:00:00 Test Item Value Reference Range Interpretation Comments RHEUMATOID FACTOR, QUANT (test code 11 IU/ML = 3502) SEDIMENTATION [id number] 00:00:00 Test Item Value Reference Range Interpretation Comments SEDIMENTATION RATE (test code = 40 MM/HOUR 1017) SEDIMENTATION [id number] 00:00:00 Test Item Value Reference Range Interpretation Comments SEDIMENTATION RATE (test code = 40 MM/HOUR 1017) C-REACTIVE [id number] 00:00:00 Test Item Value Reference Range Interpretation Comments C-REACTIVE PROTEIN (test code = 0.2 MG/DL 3513) C-REACTIVE [id number] 00:00:00 Test Item Value Reference Range Interpretation Comments C-REACTIVE PROTEIN (test code = 0.2 MG/DL 3513) ARMEN (ANTI-NUCLEAR AB) WITH REFLEX [id number] 00:00:00 Test Item Value Reference Range Interpretation Comments ANTI-NUCLEAR ANTIBODIES (test code = POSITIVE 3506) ARMEN (ANTI-NUCLEAR AB) WITH REFLEX [id number] 00:00:00 Test Item Value Reference Range Interpretation Comments ANTI-NUCLEAR ANTIBODIES (test code = POSITIVE 3506) VITAMIN D, 25 [id number] 00:00:00 Test Item Value Reference Range Interpretation Comments VITAMIN D, 25 OH (test code = 4958) 24 NG/ML VITAMIN D, 25 [id number] 00:00:00 Test Item Value Reference Range Interpretation Comments VITAMIN D, 25 OH (test code = 4958) 24 NG/ML RHEUMATOID FACTOR, [id number] 00:00:00 Test Item Value Reference Range Interpretation Comments RHEUMATOID FACTOR, QUANT (test code 11 IU/ML = 3502) RHEUMATOID FACTOR, [id number] 00:00:00 Test Item Value Reference Range Interpretation Comments RHEUMATOID FACTOR, QUANT (test code 11 IU/ML = 3502) RHEUMATOID FACTOR, [id number] 00:00:00 Test Item Value Reference Range Interpretation Comments RHEUMATOID FACTOR, QUANT (test code 11 IU/ML = 3502) SEDIMENTATION [id number] 00:00:00 Test Item Value Reference Range Interpretation Comments SEDIMENTATION RATE (test code = 40 MM/HOUR 1017) SEDIMENTATION [id number] 00:00:00 Test Item Value Reference Range Interpretation Comments SEDIMENTATION RATE (test code = 40 MM/HOUR 1017) C-REACTIVE [id number] 00:00:00 Test Item Value Reference Range Interpretation Comments C-REACTIVE PROTEIN (test code = 0.2 MG/DL 3513) C-REACTIVE [id number] 00:00:00 Test Item Value Reference Range Interpretation Comments C-REACTIVE PROTEIN (test code = 0.2 MG/DL 3513) ARMEN (ANTI-NUCLEAR AB) WITH REFLEX [id number] 00:00:00 Test Item Value Reference Range Interpretation Comments ANTI-NUCLEAR ANTIBODIES (test code = POSITIVE 3506) ARMEN (ANTI-NUCLEAR AB) WITH REFLEX [id number] 00:00:00 Test Item Value Reference Range Interpretation Comments ANTI-NUCLEAR ANTIBODIES (test code = POSITIVE 3506) HEMOGLOBIN A1c [ADDED]2017-05-01 00:00:00 Test Item Value Reference Range Interpretation Comments HEMOGLOBIN A1c (test code = 93641) 8.1 % HEMOGLOBIN A1c [ADDED]2017-05-01 00:00:00 Test Item Value Reference Range Interpretation Comments HEMOGLOBIN A1c (test code = 80144) 8.1 % HEMOGLOBIN A1c [ADDED]2017-05-01 00:00:00 Test Item Value Reference Range Interpretation Comments HEMOGLOBIN A1c (test code = 49859) 8.1 % CBC W/AUTO DIFF WITH PLATELETS [...] eGFR AMER. (test code 62 ML/MIN/1.73 = 97042) eGFR NON- AMER. (test 53 ML/MIN/1.73 code = 08833) CALC BUN/CREAT (test code = 31 RATIO 2235) SODIUM (test code = 2231) 142 MEQ/L POTASSIUM (test code = 2228) 4.9 MEQ/L CHLORIDE (test code = 2215) 102 MEQ/L CARBON DIOXIDE (test code = 25 MEQ/L 6) CALCIUM (test code = 2209) [...] eGFR AMER. (test code 62 ML/MIN/1.73 = 70727) eGFR NON- AMER. (test 53 ML/MIN/1.73 code = 80596) CALC BUN/CREAT (test code = 31 RATIO [...] MICROALBUMIN, RANDOM (test code = 60.7 MG/DL 74923) CALC MICROALB/CREAT RND (test code 1096 MG/G = 81621) MICROALBUMIN/CREATININE, RANDOM AND RATIO [ADDED]2017-05-01 00:00:00 Test Item Value Reference Range Interpretation Comments CREATININE, URINE, CONC. (test 55.4 MG/DL code = 2072) MICROALBUMIN, RANDOM (test code = 60.7 MG/DL 01313) CALC MICROALB/CREAT RND (test code 1096 MG/G = 58019) HEMOGLOBIN A1c [ADDED]2017-05-01 00:00:00 Test Item Value Reference Range Interpretation Comments HEMOGLOBIN A1c (test code = 24203) 8.1 % HEMOGLOBIN A1c [ADDED]2017-05-01 00:00:00 Test Item Value Reference Range Interpretation Comments HEMOGLOBIN A1c (test code = 24815) 8.1 % HEMOGLOBIN A1c [ADDED]2017-05-01 00:00:00 Test Item Value Reference Range Interpretation Comments HEMOGLOBIN A1c (test code = 06052) 8.1 % HEMOGLOBIN A1c [ADDED]2017-05-01 00:00:00 Test Item Value Reference Range Interpretation Comments HEMOGLOBIN A1c (test code = 26939) 8.1 % CBC W/AUTO DIFF WITH PLATELETS [...] Interpretation Comments HEMOGLOBIN A1c (test code = 50773) 8.1 % CBC W/AUTO DIFF WITH PLATELETS [...] eGFR AMER. (test code 62 ML/MIN/1.73 = 86600) eGFR NON- AMER. (test 53 ML/MIN/1.73 code = 14879) CALC BUN/CREAT (test code = 31 RATIO [...] eGFR AMER. (test code 62 ML/MIN/1.73 = 76043) eGFR NON- AMER. (test 53 ML/MIN/1.73 code = 24274) CALC BUN/CREAT (test code = 31 RATIO [...] MICROALBUMIN, RANDOM (test code = 60.7 MG/DL 59511) CALC MICROALB/CREAT RND (test code 1096 MG/G = 33061) MICROALBUMIN/CREATININE, RANDOM AND RATIO [ADDED]2017-05-01 00:00:00 Test Item Value Reference Range Interpretation Comments CREATININE, URINE, CONC. (test 55.4 MG/DL code = 2072) MICROALBUMIN, RANDOM (test code = 60.7 MG/DL 80611) CALC MICROALB/CREAT RND (test code 1096 MG/G = 83688) COMPREHENSIVE METABOLIC PANEL [ADDED]2017-05-01 00:00:00 Test Item Value Reference Range Interpretation Comments GLUCOSE (test code = 2217) 287 MG/DL BUN (test code = 2208) 33 MG/DL CREATININE (test code = 2214) 1.07 MG/DL eGFR AMER. (test code 62 ML/MIN/1.73 = 47853) eGFR NON- AMER. (test 53 ML/MIN/1.73 code = 88604) CALC BUN/CREAT (test code = 31 RATIO [...] Interpretation Comments HEMOGLOBIN A1c (test code = 88431) 8.1 % HEMOGLOBIN A1c [ADDED]2017-05-01 00:00:00 Test Item Value Reference Range Interpretation Comments HEMOGLOBIN A1c (test code = 25951) 8.1 % HEMOGLOBIN A1c [ADDED]2017-05-01 00:00:00 Test Item Value Reference Range Interpretation Comments HEMOGLOBIN A1c (test code = 10302) 8.1 % CBC W/AUTO DIFF WITH PLATELETS [...] eGFR AMER. (test code 62 ML/MIN/1.73 = 72985) eGFR NON- AMER. (test 53 ML/MIN/1.73 code = 69586) CALC BUN/CREAT (test code = 31 RATIO [...] eGFR AMER. (test code 62 ML/MIN/1.73 = 92648) eGFR NON- AMER. (test 53 ML/MIN/1.73 code = 74502) CALC BUN/CREAT (test code = 31 RATIO [...] RATIO 4) BILIRUBIN, TOTAL (test code = 0.5 MG/DL 2206) ALKALINE PHOSPHATASE (test 90 U/L code = 2204) AST (test code = 2218) 20 U/L ALT (test code = 2219) 22 U/L MICROALBUMIN/CREATININE, RANDOM AND RATIO [ADDED]2017-05-01 00:00:00 Test Item Value Reference Range Interpretation Comments CREATININE, URINE, CONC. (test 55.4 MG/DL code = 2072) MICROALBUMIN, RANDOM (test code = 60.7 MG/DL 04649) CALC MICROALB/CREAT RND (test code 1096 MG/G = 29422) LIPID PANEL [ADDED]2017-05-01 00:00:00 Test Item Value [...] MICROALBUMIN, RANDOM (test code = 60.7 MG/DL 04641) CALC MICROALB/CREAT RND (test code 1096 MG/G = 74711) MICROALBUMIN/CREATININE, RANDOM AND RATIO [ADDED]2017-05-01 00:00:00 Test Item Value Reference Range Interpretation Comments CREATININE, URINE, CONC. (test 55.4 MG/DL code = 2072) MICROALBUMIN, RANDOM (test code = 60.7 MG/DL 27295) CALC MICROALB/CREAT RND (test code 1096 MG/G = 15143) HEMOGLOBIN A1c [ADDED]2017-05-01 00:00:00 Test Item Value Reference Range Interpretation Comments HEMOGLOBIN A1c (test code = 49310) 8.1 % HEMOGLOBIN A1c [ADDED]2017-05-01 00:00:00 Test Item Value Reference Range Interpretation Comments HEMOGLOBIN A1c (test code = 20968) 8.1 % HEMOGLOBIN A1c [ADDED]2017-05-01 00:00:00 Test Item Value Reference Range Interpretation Comments HEMOGLOBIN A1c (test code = 11994) 8.1 % CBC W/AUTO DIFF WITH PLATELETS [...] eGFR AMER. (test code 62 ML/MIN/1.73 = 91486) eGFR NON- AMER. (test 53 ML/MIN/1.73 code = 93873) CALC BUN/CREAT (test code = 31 RATIO [...] eGFR AMER. (test code 62 ML/MIN/1.73 = 21492) eGFR NON- AMER. (test 53 ML/MIN/1.73 code = 63974) CALC BUN/CREAT (test code = 31 RATIO [...] MICROALBUMIN, RANDOM (test code = 60.7 MG/DL 09306) CALC MICROALB/CREAT RND (test code 1096 MG/G = 71437) MICROALBUMIN/CREATININE, RANDOM AND RATIO [ADDED]2017-05-01 00:00:00 Test Item Value Reference Range Interpretation Comments CREATININE, URINE, CONC. (test 55.4 MG/DL code = 2072) MICROALBUMIN, RANDOM (test code = 60.7 MG/DL 32558) CALC MICROALB/CREAT RND (test code 1096 MG/G = 10213) HEMOGLOBIN A1c [ADDED]2017-05-01 00:00:00 Test Item Value Reference Range Interpretation Comments HEMOGLOBIN A1c (test code = 94678) 8.1 % HEMOGLOBIN A1c [ADDED]2017-05-01 00:00:00 Test Item Value Reference Range Interpretation Comments HEMOGLOBIN A1c (test code = 56175) 8.1 % CBC W/AUTO DIFF WITH PLATELETS [...] eGFR AMER. (test code 62 ML/MIN/1.73 = 62871) eGFR NON- AMER. (test 53 ML/MIN/1.73 code = 13334) CALC BUN/CREAT (test code = 31 RATIO [...] MICROALBUMIN, RANDOM (test code = 60.7 MG/DL 81829) CALC MICROALB/CREAT RND (test code 1096 MG/G = 16639) HEMOGLOBIN A1c [ADDED]2017-05-01 00:00:00 Test Item Value Reference Range Interpretation Comments HEMOGLOBIN A1c (test code = 67814) 8.1 % HEMOGLOBIN A1c [ADDED]2017-05-01 00:00:00 Test Item Value Reference Range Interpretation Comments HEMOGLOBIN A1c (test code = 08656) 8.1 % HEMOGLOBIN A1c [ADDED]2017-05-01 00:00:00 Test Item Value Reference Range Interpretation Comments HEMOGLOBIN A1c (test code = 68185) 8.1 % CBC W/AUTO DIFF WITH PLATELETS [...] eGFR AMER. (test code 62 ML/MIN/1.73 = 47321) eGFR NON- AMER. (test 53 ML/MIN/1.73 code = 91040) CALC BUN/CREAT (test code = 31 RATIO [...] eGFR AMER. (test code 62 ML/MIN/1.73 = 23095) eGFR NON- AMER. (test 53 ML/MIN/1.73 code = 94081) CALC BUN/CREAT (test code = 31 RATIO [...] MICROALBUMIN, RANDOM (test code = 60.7 MG/DL 05595) CALC MICROALB/CREAT RND (test code 1096 MG/G = 35919) MICROALBUMIN/CREATININE, RANDOM AND RATIO [ADDED]2017-05-01 00:00:00 Test Item Value Reference Range Interpretation Comments CREATININE, URINE, CONC. (test 55.4 MG/DL code = 2072) MICROALBUMIN, RANDOM (test code = 60.7 MG/DL 95271) CALC MICROALB/CREAT RND (test code 1096 MG/G = 23486) HEMOGLOBIN A1c [ADDED]2017-05-01 00:00:00 Test Item Value Reference Range Interpretation Comments HEMOGLOBIN A1c (test code = 31070) 8.1 % HEMOGLOBIN A1c [ADDED]2017-05-01 00:00:00 Test Item Value Reference Range Interpretation Comments HEMOGLOBIN A1c (test code = 67958) 8.1 % HEMOGLOBIN A1c [ADDED]2017-05-01 00:00:00 Test Item Value Reference Range Interpretation Comments HEMOGLOBIN A1c (test code = 68176) 8.1 % CBC W/AUTO DIFF WITH PLATELETS [...] eGFR AMER. (test code 62 ML/MIN/1.73 = 25830) eGFR NON- AMER. (test 53 ML/MIN/1.73 code = 43801) CALC BUN/CREAT (test code = 31 RATIO [...] eGFR AMER. (test code 62 ML/MIN/1.73 = 53657) eGFR NON- AMER. (test 53 ML/MIN/1.73 code = 81397) CALC BUN/CREAT (test code = 31 RATIO [...] MICROALBUMIN, RANDOM (test code = 60.7 MG/DL 19054) CALC MICROALB/CREAT RND (test code 1096 MG/G = 17881) MICROALBUMIN/CREATININE, RANDOM AND RATIO [ADDED]2017-05-01 00:00:00 Test Item Value Reference Range Interpretation Comments CREATININE, URINE, CONC. (test 55.4 MG/DL code = 2072) MICROALBUMIN, RANDOM (test code = 60.7 MG/DL 35664) CALC MICROALB/CREAT RND (test code 1096 MG/G = 87490) VITAMIN D, 25 [id number] 00:00:00 Test Item Value Reference Range Interpretation Comments VITAMIN D, 25 OH (test code = 4958) 16 NG/ML VITAMIN D, 25 [id number] 00:00:00 Test Item Value Reference Range Interpretation Comments VITAMIN D, 25 OH (test code = 4958) 16 NG/ML [id number] 00:00:00 Test Item Value Reference Range Interpretation Comments TSH (test code = 2821) 4.260 UIU/ML [id number] 00:00:00 Test Item Value Reference Range Interpretation Comments TSH (test code = 2821) 4.260 UIU/ML [id number] 00:00:00 Test Item Value Reference Range Interpretation Comments TSH (test code = 2821) 4.260 UIU/ML LIPID [id number] 00:00:00 Test Item Value Reference Range Interpretation Comments CHOLESTEROL (test code = 2210) 152 MG/DL TRIGLYCERIDES (test code = 2232) 149 MG/DL HDL CHOLESTEROL (test code = 2220) 56 MG/DL CALC LDL CHOL (test code = 2237) 66 MG/DL RISK RATIO LDL/HDL (test code = 1.18 RATIO 2238) LIPID [id number] 00:00:00 Test Item Value Reference Range Interpretation Comments CHOLESTEROL (test code = 2210) 152 MG/DL TRIGLYCERIDES (test code = 2232) 149 MG/DL HDL CHOLESTEROL (test code = 2220) 56 MG/DL CALC LDL CHOL (test code = 2237) 66 MG/DL RISK RATIO LDL/HDL (test code = 1.18 RATIO 2238) COMPREHENSIVE METABOLIC [id number] 00:00:00 Test Item Value Reference Range Interpretation Comments GLUCOSE (test code = 2217) 173 MG/DL BUN (test code = 2208) 22 MG/DL CREATININE (test code = 2214) 1.01 MG/DL eGFR AMER. (test code 66 ML/MIN/1.73 = 55974) eGFR NON- AMER. (test 57 ML/MIN/1.73 code = 69185) CALC BUN/CREAT (test code = 22 RATIO [...] code = 2219) 13 U/L COMPREHENSIVE METABOLIC [id number] 00:00:00 Test Item Value Reference Range Interpretation Comments GLUCOSE (test code = 2217) 173 MG/DL BUN (test code = 2208) 22 MG/DL CREATININE (test code = 2214) 1.01 MG/DL eGFR AMER. (test code 66 ML/MIN/1.73 = 69541) eGFR NON- AMER. (test 57 ML/MIN/1.73 code = 84839) CALC BUN/CREAT (test code = 22 RATIO [...] code = 2219) 13 U/L CBC W/AUTO [id number] 00:00:00 Test Item Value Reference Range Interpretation [...] code = 1015) 266 K/UL CBC W/AUTO [id number] 00:00:00 Test Item Value Reference Range Interpretation [...] code = 1015) 266 K/UL CBC W/AUTO [id number] 00:00:00 Test Item Value Reference Range Interpretation [...] (test code = 1015) 266 K/UL HEMOGLOBIN [id number] 00:00:00 Test Item Value Reference Range Interpretation Comments HEMOGLOBIN A1c (test code = 59933) 9.4 % HEMOGLOBIN [id number] 00:00:00 Test Item Value Reference Range Interpretation Comments HEMOGLOBIN A1c (test code = 85581) 9.4 % HEMOGLOBIN [id number] 00:00:00 Test Item Value Reference Range Interpretation Comments HEMOGLOBIN A1c (test code = 45827) 9.4 % URIC [id number] 00:00:00 Test Item Value Reference Range Interpretation Comments URIC ACID (test code = 2233) 4.7 MG/DL URIC [id number] 00:00:00 Test Item Value Reference Range Interpretation Comments URIC ACID (test code = 2233) 4.7 MG/DL VITAMIN D, 25 [id number] 00:00:00 Test Item Value Reference Range Interpretation Comments VITAMIN D, 25 OH (test code = 4958) 16 NG/ML VITAMIN D, 25 [id number] 00:00:00 Test Item Value Reference Range Interpretation Comments VITAMIN D, 25 OH (test code = 4958) 16 NG/ML [id number] 00:00:00 Test Item Value Reference Range Interpretation Comments TSH (test code = 2821) 4.260 UIU/ML [id number] 00:00:00 Test Item Value Reference Range Interpretation Comments TSH (test code = 2821) 4.260 UIU/ML [id number] 00:00:00 Test Item Value Reference Range Interpretation Comments TSH (test code = 2821) 4.260 UIU/ML [id number] 00:00:00 Test Item Value Reference Range Interpretation Comments TSH (test code = 2821) 4.260 UIU/ML [id number] 00:00:00 Test Item Value Reference Range Interpretation Comments TSH (test code = 2821) 4.260 UIU/ML LIPID [id number] 00:00:00 Test Item Value Reference Range Interpretation Comments CHOLESTEROL (test code = 2210) 152 MG/DL TRIGLYCERIDES (test code = 2232) 149 MG/DL HDL CHOLESTEROL (test code = 2220) 56 MG/DL CALC LDL CHOL (test code = 2237) 66 MG/DL RISK RATIO LDL/HDL (test code = 1.18 RATIO 2238) LIPID [id number] 00:00:00 Test Item Value Reference Range Interpretation Comments CHOLESTEROL (test code = 2210) 152 MG/DL TRIGLYCERIDES (test code = 2232) 149 MG/DL HDL CHOLESTEROL (test code = 2220) 56 MG/DL CALC LDL CHOL (test code = 2237) 66 MG/DL RISK RATIO LDL/HDL (test code = 1.18 RATIO 2238) COMPREHENSIVE METABOLIC [id number] 00:00:00 Test Item Value Reference Range Interpretation Comments GLUCOSE (test code = 2217) 173 MG/DL BUN (test code = 2208) 22 MG/DL CREATININE (test code = 2214) 1.01 MG/DL eGFR AMER. (test code 66 ML/MIN/1.73 = 85462) eGFR NON- AMER. (test 57 ML/MIN/1.73 code = 88452) CALC BUN/CREAT (test code = 22 RATIO [...] RATIO 223) BILIRUBIN, TOTAL (test code = 0.4 MG/DL 2206) ALKALINE PHOSPHATASE (test 89 U/L code = 2204) AST (test code = 2218) 16 U/L ALT (test code = 2219) 13 U/L LIPID [id number] 00:00:00 Test Item Value Reference Range Interpretation Comments CHOLESTEROL (test code = 2210) 152 MG/DL TRIGLYCERIDES (test code = 2232) 149 MG/DL HDL CHOLESTEROL (test code = 2220) 56 MG/DL CALC LDL CHOL (test code = 2237) 66 MG/DL RISK RATIO LDL/HDL (test code = 1.18 RATIO 2238) COMPREHENSIVE METABOLIC [id number] 00:00:00 Test Item Value Reference Range Interpretation Comments GLUCOSE (test code = 2217) 173 MG/DL BUN (test code = 2208) 22 MG/DL CREATININE (test code = 2214) 1.01 MG/DL eGFR AMER. (test code 66 ML/MIN/1.73 = 68978) eGFR NON- AMER. (test 57 ML/MIN/1.73 code = 64831) CALC BUN/CREAT (test code = 22 RATIO [...] RATIO 223) BILIRUBIN, TOTAL (test code = 0.4 MG/DL 2206) ALKALINE PHOSPHATASE (test 89 U/L code = 2204) AST (test code = 2218) 16 U/L ALT (test code = 2219) 13 U/L CBC W/AUTO [id number] 00:00:00 Test Item Value Reference Range Interpretation [...] code = 1015) 266 K/UL CBC W/AUTO [id number] 00:00:00 Test Item Value Reference Range Interpretation [...] code = 1015) 266 K/UL CBC W/AUTO [id number] 00:00:00 Test Item Value Reference Range Interpretation [...] (test code = 1015) 266 K/UL HEMOGLOBIN [id number] 00:00:00 Test Item Value Reference Range Interpretation Comments HEMOGLOBIN A1c (test code = 23607) 9.4 % HEMOGLOBIN [id number] 00:00:00 Test Item Value Reference Range Interpretation Comments HEMOGLOBIN A1c (test code = 31457) 9.4 % HEMOGLOBIN [id number] 00:00:00 Test Item Value Reference Range Interpretation Comments HEMOGLOBIN A1c (test code = 66754) 9.4 % URIC [id number] 00:00:00 Test Item Value Reference Range Interpretation Comments URIC ACID (test code = 2233) 4.7 MG/DL URIC [id number] 00:00:00 Test Item Value Reference Range Interpretation Comments URIC ACID (test code = 2233) 4.7 MG/DL VITAMIN D, 25 [id number] 00:00:00 Test Item Value Reference Range Interpretation Comments VITAMIN D, 25 OH (test code = 4958) 16 NG/ML VITAMIN D, 25 [id number] 00:00:00 Test Item Value Reference Range Interpretation Comments VITAMIN D, 25 OH (test code = 4958) 16 NG/ML COMPREHENSIVE METABOLIC [id number] 00:00:00 Test Item Value Reference Range Interpretation Comments GLUCOSE (test code = 2217) 173 MG/DL BUN (test code = 2208) 22 MG/DL CREATININE (test code = 2214) 1.01 MG/DL eGFR AMER. (test code 66 ML/MIN/1.73 = 30978) eGFR NON- AMER. (test 57 ML/MIN/1.73 code = 78733) CALC BUN/CREAT (test code = 22 RATIO [...] ALT (test code = 2219) 13 U/L [id number] 00:00:00 Test Item Value Reference Range Interpretation Comments TSH (test code = 2821) 4.260 UIU/ML [id number] 00:00:00 Test Item Value Reference Range Interpretation Comments TSH (test code = 2821) 4.260 UIU/ML [id number] 00:00:00 Test Item Value Reference Range Interpretation Comments TSH (test code = 2821) 4.260 UIU/ML CBC W/AUTO [id number] 00:00:00 Test Item Value Reference Range Interpretation [...] code = 1015) 266 K/UL CBC W/AUTO [id number] 00:00:00 Test Item Value Reference Range Interpretation [...] (test code = 1015) 266 K/UL LIPID [id number] 00:00:00 Test Item Value Reference Range Interpretation Comments CHOLESTEROL (test code = 2210) 152 MG/DL TRIGLYCERIDES (test code = 2232) 149 MG/DL HDL CHOLESTEROL (test code = 2220) 56 MG/DL CALC LDL CHOL (test code = 2237) 66 MG/DL RISK RATIO LDL/HDL (test code = 1.18 RATIO 2238) LIPID [id number] 00:00:00 Test Item Value Reference Range Interpretation Comments CHOLESTEROL (test code = 2210) 152 MG/DL TRIGLYCERIDES (test code = 2232) 149 MG/DL HDL CHOLESTEROL (test code = 2220) 56 MG/DL CALC LDL CHOL (test code = 2237) 66 MG/DL RISK RATIO LDL/HDL (test code = 1.18 RATIO 2238) COMPREHENSIVE METABOLIC [id number] 00:00:00 Test Item Value Reference Range Interpretation Comments GLUCOSE (test code = 2217) 173 MG/DL BUN (test code = 2208) 22 MG/DL CREATININE (test code = 2214) 1.01 MG/DL eGFR AMER. (test code 66 ML/MIN/1.73 = 65933) eGFR NON- AMER. (test 57 ML/MIN/1.73 code = 03235) CALC BUN/CREAT (test code = 22 RATIO [...] code = 2219) 13 U/L COMPREHENSIVE METABOLIC [id number] 00:00:00 Test Item Value Reference Range Interpretation Comments GLUCOSE (test code = 2217) 173 MG/DL BUN (test code = 2208) 22 MG/DL CREATININE (test code = 2214) 1.01 MG/DL eGFR AMER. (test code 66 ML/MIN/1.73 = 26457) eGFR NON- AMER. (test 57 ML/MIN/1.73 code = 16197) CALC BUN/CREAT (test code = 22 RATIO [...] code = 2219) 13 U/L CBC W/AUTO [id number] 00:00:00 Test Item Value Reference Range Interpretation [...] code = 1015) 266 K/UL CBC W/AUTO [id number] 00:00:00 Test Item Value Reference Range Interpretation [...] code = 1015) 266 K/UL CBC W/AUTO [id number] 00:00:00 Test Item Value Reference Range Interpretation [...] (test code = 1015) 266 K/UL HEMOGLOBIN [id number] 00:00:00 Test Item Value Reference Range Interpretation Comments HEMOGLOBIN A1c (test code = 10231) 9.4 % HEMOGLOBIN [id number] 00:00:00 Test Item Value Reference Range Interpretation Comments HEMOGLOBIN A1c (test code = 05916) 9.4 % HEMOGLOBIN [id number] 00:00:00 Test Item Value Reference Range Interpretation Comments HEMOGLOBIN A1c (test code = 94022) 9.4 % URIC [id number] 00:00:00 Test Item Value Reference Range Interpretation Comments URIC ACID (test code = 2233) 4.7 MG/DL URIC [id number] 00:00:00 Test Item Value Reference Range Interpretation Comments URIC ACID (test code = 2233) 4.7 MG/DL HEMOGLOBIN [id number] 00:00:00 Test Item Value Reference Range Interpretation Comments HEMOGLOBIN A1c (test code = 30966) 9.4 % VITAMIN D, 25 [id number] 00:00:00 Test Item Value Reference Range Interpretation Comments VITAMIN D, 25 OH (test code = 4958) 16 NG/ML VITAMIN D, 25 [id number] 00:00:00 Test Item Value Reference Range Interpretation Comments VITAMIN D, 25 OH (test code = 4958) 16 NG/ML HEMOGLOBIN [id number] 00:00:00 Test Item Value Reference Range Interpretation Comments HEMOGLOBIN A1c (test code = 74469) 9.4 % URIC [id number] 00:00:00 Test Item Value Reference Range Interpretation Comments URIC ACID (test code = 2233) 4.7 MG/DL VITAMIN D, 25 [id number] 00:00:00 Test Item Value Reference Range Interpretation Comments VITAMIN D, 25 OH (test code = 4958) 16 NG/ML [id number] 00:00:00 Test Item Value Reference Range Interpretation Comments TSH (test code = 2821) 4.260 UIU/ML [id number] 00:00:00 Test Item Value Reference Range Interpretation Comments TSH (test code = 2821) 4.260 UIU/ML [id number] 00:00:00 Test Item Value Reference Range Interpretation Comments TSH (test code = 2821) 4.260 UIU/ML LIPID [id number] 00:00:00 Test Item Value Reference Range Interpretation Comments CHOLESTEROL (test code = 2210) 152 MG/DL TRIGLYCERIDES (test code = 2232) 149 MG/DL HDL CHOLESTEROL (test code = 2220) 56 MG/DL CALC LDL CHOL (test code = 2237) 66 MG/DL RISK RATIO LDL/HDL (test code = 1.18 RATIO 2238) LIPID [id number] 00:00:00 Test Item Value Reference Range Interpretation Comments CHOLESTEROL (test code = 2210) 152 MG/DL TRIGLYCERIDES (test code = 2232) 149 MG/DL HDL CHOLESTEROL (test code = 2220) 56 MG/DL CALC LDL CHOL (test code = 2237) 66 MG/DL RISK RATIO LDL/HDL (test code = 1.18 RATIO 2238) COMPREHENSIVE METABOLIC [id number] 00:00:00 Test Item Value Reference Range Interpretation Comments GLUCOSE (test code = 2217) 173 MG/DL BUN (test code = 2208) 22 MG/DL CREATININE (test code = 2214) 1.01 MG/DL eGFR AMER. (test code 66 ML/MIN/1.73 = 02668) eGFR NON- AMER. (test 57 ML/MIN/1.73 code = 01210) CALC BUN/CREAT (test code = 22 RATIO [...] code = 2219) 13 U/L COMPREHENSIVE METABOLIC [id number] 00:00:00 Test Item Value Reference Range Interpretation Comments GLUCOSE (test code = 2217) 173 MG/DL BUN (test code = 2208) 22 MG/DL CREATININE (test code = 2214) 1.01 MG/DL eGFR AMER. (test code 66 ML/MIN/1.73 = 84345) eGFR NON- AMER. (test 57 ML/MIN/1.73 code = 61553) CALC BUN/CREAT (test code = 22 RATIO [...] code = 2219) 13 U/L CBC W/AUTO [id number] 00:00:00 Test Item Value Reference Range Interpretation [...] code = 1015) 266 K/UL CBC W/AUTO [id number] 00:00:00 Test Item Value Reference Range Interpretation [...] code = 1015) 266 K/UL CBC W/AUTO [id number] 00:00:00 Test Item Value Reference Range Interpretation [...] (test code = 1015) 266 K/UL HEMOGLOBIN [id number] 00:00:00 Test Item Value Reference Range Interpretation Comments HEMOGLOBIN A1c (test code = 60760) 9.4 % HEMOGLOBIN [id number] 00:00:00 Test Item Value Reference Range Interpretation Comments HEMOGLOBIN A1c (test code = 54547) 9.4 % HEMOGLOBIN [id number] 00:00:00 Test Item Value Reference Range Interpretation Comments HEMOGLOBIN A1c (test code = 56979) 9.4 % URIC [id number] 00:00:00 Test Item Value Reference Range Interpretation Comments URIC ACID (test code = 2233) 4.7 MG/DL URIC [id number] 00:00:00 Test Item Value Reference Range Interpretation Comments URIC ACID (test code = 2233) 4.7 MG/DL VITAMIN D, 25 [id number] 00:00:00 Test Item Value Reference Range Interpretation Comments VITAMIN D, 25 OH (test code = 4958) 16 NG/ML VITAMIN D, 25 [id number] 00:00:00 Test Item Value Reference Range Interpretation Comments VITAMIN D, 25 OH (test code = 4958) 16 NG/ML [id number] 00:00:00 Test Item Value Reference Range Interpretation Comments TSH (test code = 2821) 4.260 UIU/ML [id number] 00:00:00 Test Item Value Reference Range Interpretation Comments TSH (test code = 2821) 4.260 UIU/ML LIPID [id number] 00:00:00 Test Item Value Reference Range Interpretation Comments CHOLESTEROL (test code = 2210) 152 MG/DL TRIGLYCERIDES (test code = 2232) 149 MG/DL HDL CHOLESTEROL (test code = 2220) 56 MG/DL CALC LDL CHOL (test code = 2237) 66 MG/DL RISK RATIO LDL/HDL (test code = 1.18 RATIO 2238) COMPREHENSIVE METABOLIC [id number] 00:00:00 Test Item Value Reference Range Interpretation Comments GLUCOSE (test code = 2217) 173 MG/DL BUN (test code = 2208) 22 MG/DL CREATININE (test code = 2214) 1.01 MG/DL eGFR AMER. (test code 66 ML/MIN/1.73 = 18681) eGFR NON- AMER. (test 57 ML/MIN/1.73 code = 48460) CALC BUN/CREAT (test code = 22 RATIO [...] code = 2219) 13 U/L CBC W/AUTO [id number] 00:00:00 Test Item Value Reference Range Interpretation [...] code = 1015) 266 K/UL CBC W/AUTO [id number] 00:00:00 Test Item Value Reference Range Interpretation [...] (test code = 1015) 266 K/UL HEMOGLOBIN [id number] 00:00:00 Test Item Value Reference Range Interpretation Comments HEMOGLOBIN A1c (test code = 17983) 9.4 % HEMOGLOBIN [id number] 00:00:00 Test Item Value Reference Range Interpretation Comments HEMOGLOBIN A1c (test code = 91708) 9.4 % URIC [id number] 00:00:00 Test Item Value Reference Range Interpretation Comments URIC ACID (test code = 2233) 4.7 MG/DL VITAMIN D, 25 [id number] 00:00:00 Test Item Value Reference Range Interpretation Comments VITAMIN D, 25 OH (test code = 4958) 16 NG/ML [id number] 00:00:00 Test Item Value Reference Range Interpretation Comments TSH (test code = 2821) 4.260 UIU/ML [id number] 00:00:00 Test Item Value Reference Range Interpretation Comments TSH (test code = 2821) 4.260 UIU/ML [id number] 00:00:00 Test Item Value Reference Range Interpretation Comments TSH (test code = 2821) 4.260 UIU/ML LIPID [id number] 00:00:00 Test Item Value Reference Range Interpretation Comments CHOLESTEROL (test code = 2210) 152 MG/DL TRIGLYCERIDES (test code = 2232) 149 MG/DL HDL CHOLESTEROL (test code = 2220) 56 MG/DL CALC LDL CHOL (test code = 2237) 66 MG/DL RISK RATIO LDL/HDL (test code = 1.18 RATIO 2238) LIPID [id number] 00:00:00 Test Item Value Reference Range Interpretation Comments CHOLESTEROL (test code = 2210) 152 MG/DL TRIGLYCERIDES (test code = 2232) 149 MG/DL HDL CHOLESTEROL (test code = 2220) 56 MG/DL CALC LDL CHOL (test code = 2237) 66 MG/DL RISK RATIO LDL/HDL (test code = 1.18 RATIO 2238) COMPREHENSIVE METABOLIC [id number] 00:00:00 Test Item Value Reference Range Interpretation Comments GLUCOSE (test code = 2217) 173 MG/DL BUN (test code = 2208) 22 MG/DL CREATININE (test code = 2214) 1.01 MG/DL eGFR AMER. (test code 66 ML/MIN/1.73 = 09515) eGFR NON- AMER. (test 57 ML/MIN/1.73 code = 58342) CALC BUN/CREAT (test code = 22 RATIO 2235) SODIUM (test code = 2231) 140 MEQ/L POTASSIUM (test code = 2228) 4.9 MEQ/L CHLORIDE (test code = 2215) 103 MEQ/L CARBON DIOXIDE (test code = 23 MEQ/L 220) CALCIUM (test code = 2209) 9.3 MG/DL PROTEIN, TOTAL (test code = 7.0 G/DL 222) ALBUMIN (test code = 2201) 3.9 G/DL CALC GLOBULIN (test code = 3.1 G/DL 2240) CALC A/G RATIO (test code = 1.3 RATIO 2234) BILIRUBIN, TOTAL (test code = 0.4 MG/DL 2206) ALKALINE PHOSPHATASE (test 89 U/L code = 2204) AST (test code = 2218) 16 U/L ALT (test code = 2219) 13 U/L COMPREHENSIVE METABOLIC [id number] 00:00:00 Test Item Value Reference Range Interpretation Comments GLUCOSE (test code = 2217) 173 MG/DL BUN (test code = 2208) 22 MG/DL CREATININE (test code = 2214) 1.01 MG/DL eGFR AMER. (test code 66 ML/MIN/1.73 = 16843) eGFR NON- AMER. (test 57 ML/MIN/1.73 code = 22197) CALC BUN/CREAT (test code = 22 RATIO [...] code = 2219) 13 U/L CBC W/AUTO [id number] 00:00:00 Test Item Value Reference Range Interpretation [...] code = 1015) 266 K/UL CBC W/AUTO [id number] 00:00:00 Test Item Value Reference Range Interpretation [...] code = 1015) 266 K/UL CBC W/AUTO [id number] 00:00:00 Test Item Value Reference Range Interpretation [...] (test code = 1015) 266 K/UL HEMOGLOBIN [id number] 00:00:00 Test Item Value Reference Range Interpretation Comments HEMOGLOBIN A1c (test code = 33602) 9.4 % HEMOGLOBIN [id number] 00:00:00 Test Item Value Reference Range Interpretation Comments HEMOGLOBIN A1c (test code = 10044) 9.4 % HEMOGLOBIN [id number] 00:00:00 Test Item Value Reference Range Interpretation Comments HEMOGLOBIN A1c (test code = 45513) 9.4 % URIC [id number] 00:00:00 Test Item Value Reference Range Interpretation Comments URIC ACID (test code = 2233) 4.7 MG/DL URIC [id number] 00:00:00 Test Item Value Reference Range Interpretation Comments URIC ACID (test code = 2233) 4.7 MG/DL VITAMIN D, 25 [id number] 00:00:00 Test Item Value Reference Range Interpretation Comments VITAMIN D, 25 OH (test code = 4958) 16 NG/ML VITAMIN D, 25 [id number] 00:00:00 Test Item Value Reference Range Interpretation Comments VITAMIN D, 25 OH (test code = 4958) 16 NG/ML [id number] 00:00:00 Test Item Value Reference Range Interpretation Comments TSH (test code = 2821) 4.260 UIU/ML [id number] 00:00:00 Test Item Value Reference Range Interpretation Comments TSH (test code = 2821) 4.260 UIU/ML [id number] 00:00:00 Test Item Value Reference Range Interpretation Comments TSH (test code = 2821) 4.260 UIU/ML LIPID [id number] 00:00:00 Test Item Value Reference Range Interpretation Comments CHOLESTEROL (test code = 2210) 152 MG/DL TRIGLYCERIDES (test code = 2232) 149 MG/DL HDL CHOLESTEROL (test code = 2220) 56 MG/DL CALC LDL CHOL (test code = 2237) 66 MG/DL RISK RATIO LDL/HDL (test code = 1.18 RATIO 2238) LIPID [id number] 00:00:00 Test Item Value Reference Range Interpretation Comments CHOLESTEROL (test code = 2210) 152 MG/DL TRIGLYCERIDES (test code = 2232) 149 MG/DL HDL CHOLESTEROL (test code = 2220) 56 MG/DL CALC LDL CHOL (test code = 2237) 66 MG/DL RISK RATIO LDL/HDL (test code = 1.18 RATIO 2238) COMPREHENSIVE METABOLIC [id number] 00:00:00 Test Item Value Reference Range Interpretation Comments GLUCOSE (test code = 2217) 173 MG/DL BUN (test code = 2208) 22 MG/DL CREATININE (test code = 2214) 1.01 MG/DL eGFR AMER. (test code 66 ML/MIN/1.73 = 97824) eGFR NON- AMER. (test 57 ML/MIN/1.73 code = 36751) CALC BUN/CREAT (test code = 22 RATIO [...] code = 2219) 13 U/L COMPREHENSIVE METABOLIC [id number] 00:00:00 Test Item Value Reference Range Interpretation Comments GLUCOSE (test code = 2217) 173 MG/DL BUN (test code = 2208) 22 MG/DL CREATININE (test code = 2214) 1.01 MG/DL eGFR AMER. (test code 66 ML/MIN/1.73 = 09123) eGFR NON- AMER. (test 57 ML/MIN/1.73 code = 84796) CALC BUN/CREAT (test code = 22 RATIO [...] code = 2219) 13 U/L CBC W/AUTO [id number] 00:00:00 Test Item Value Reference Range Interpretation [...] code = 1015) 266 K/UL CBC W/AUTO [id number] 00:00:00 Test Item Value Reference Range Interpretation [...] code = 1015) 266 K/UL CBC W/AUTO [id number] 00:00:00 Test Item Value Reference Range Interpretation [...] (test code = 1015) 266 K/UL HEMOGLOBIN [id number] 00:00:00 Test Item Value Reference Range Interpretation Comments HEMOGLOBIN A1c (test code = 15753) 9.4 % HEMOGLOBIN [id number] 00:00:00 Test Item Value Reference Range Interpretation Comments HEMOGLOBIN A1c (test code = 75340) 9.4 % HEMOGLOBIN [id number] 00:00:00 Test Item Value Reference Range Interpretation Comments HEMOGLOBIN A1c (test code = 20930) 9.4 % URIC [id number] 00:00:00 Test Item Value Reference Range Interpretation Comments URIC ACID (test code = 2233) 4.7 MG/DL URIC [id number] 00:00:00 Test Item Value Reference Range Interpretation Comments URIC ACID (test code = 2233) 4.7 MG/DL COMPREHENSIVE METABOLIC [id number] 00:00:00 Test Item Value Reference Range Interpretation Comments GLUCOSE (test code = 2217) 74 MG/DL BUN (test code = 2208) 34 MG/DL CREATININE (test code = 2214) 1.11 MG/DL eGFR AMER. (test code 60 ML/MIN/1.73 = 55622) eGFR NON- AMER. (test 51 ML/MIN/1.73 code = 91810) CALC BUN/CREAT (test code = 31 RATIO [...] ALKALINE PHOSPHATASE (test 98 U/L code = 220) AST (test code = 2218) 18 U/L ALT (test code = 2219) 13 U/L COMPREHENSIVE METABOLIC [id number] 00:00:00 Test Item Value Reference Range Interpretation Comments GLUCOSE (test code = 2217) 74 MG/DL BUN (test code = 2208) 34 MG/DL CREATININE (test code = 2214) 1.11 MG/DL eGFR AMER. (test code 60 ML/MIN/1.73 = 55577) eGFR NON- AMER. (test 51 ML/MIN/1.73 code = 92136) CALC BUN/CREAT (test code = 31 RATIO [...] (test code = 2219) 13 U/L LIPID [id number] 00:00:00 Test Item Value Reference Range Interpretation Comments CHOLESTEROL (test code = 2210) 220 MG/DL TRIGLYCERIDES (test code = 2232) 136 MG/DL HDL CHOLESTEROL (test code = 2220) 57 MG/DL CALC LDL CHOL (test code = 2237) 136 MG/DL RISK RATIO LDL/HDL (test code = 2.38 RATIO 2238) LIPID [id number] 00:00:00 Test Item Value Reference Range Interpretation Comments CHOLESTEROL (test code = 2210) 220 MG/DL TRIGLYCERIDES (test code = 2232) 136 MG/DL HDL CHOLESTEROL (test code = 2220) 57 MG/DL CALC LDL CHOL (test code = 2237) 136 MG/DL RISK RATIO LDL/HDL (test code = 2.38 RATIO 2238) CBC W/AUTO [id number] 00:00:00 Test Item Value Reference Range Interpretation [...] code = 1015) 294 K/UL CBC W/AUTO [id number] 00:00:00 Test Item Value Reference Range Interpretation [...] code = 1015) 294 K/UL CBC W/AUTO [id number] 00:00:00 Test Item Value Reference Range Interpretation [...] (test code = 1015) 294 K/UL HEMOGLOBIN [id number] 00:00:00 Test Item Value Reference Range Interpretation Comments HEMOGLOBIN A1c (test code = 05122) 6.5 % HEMOGLOBIN [id number] 00:00:00 Test Item Value Reference Range Interpretation Comments HEMOGLOBIN A1c (test code = 28407) 6.5 % HEMOGLOBIN [id number] 00:00:00 Test Item Value Reference Range Interpretation Comments HEMOGLOBIN A1c (test code = 07512) 6.5 % THYROID II PROFILE (T3U, T4, T7, TSH)[id number] 00:00:00 Test Item Value Reference Range Interpretation Comments T3 UPTAKE (test code = 2817) 30.8 % T4 (THYROXINE) (test code = 2819) 5.3 UG/DL CALCULATED T7 (FTI) (test code = 1.63 2070) TSH (test code = 2821) 3.1 UIU/ML THYROID II PROFILE (T3U, T4, T7, TSH)[id number] 00:00:00 Test Item Value Reference Range Interpretation Comments T3 UPTAKE (test code = 2817) 30.8 % T4 (THYROXINE) (test code = 2819) 5.3 UG/DL CALCULATED T7 (FTI) (test code = 1.63 0) TSH (test code = 2821) 3.1 UIU/ML COMPREHENSIVE METABOLIC [id number] 00:00:00 Test Item Value Reference Range Interpretation Comments GLUCOSE (test code = 2217) 74 MG/DL BUN (test code = 2208) 34 MG/DL CREATININE (test code = 2214) 1.11 MG/DL eGFR AMER. (test code 60 ML/MIN/1.73 = 75788) eGFR NON- AMER. (test 51 ML/MIN/1.73 code = 15163) CALC BUN/CREAT (test code = 31 RATIO [...] code = 2219) 13 U/L COMPREHENSIVE METABOLIC [id number] 00:00:00 Test Item Value Reference Range Interpretation Comments GLUCOSE (test code = 2217) 74 MG/DL BUN (test code = 2208) 34 MG/DL CREATININE (test code = 2214) 1.11 MG/DL eGFR AMER. (test code 60 ML/MIN/1.73 = 78893) eGFR NON- AMER. (test 51 ML/MIN/1.73 code = 09668) CALC BUN/CREAT (test code = 31 RATIO [...] code = 2219) 13 U/L COMPREHENSIVE METABOLIC [id number] 00:00:00 Test Item Value Reference Range Interpretation Comments GLUCOSE (test code = 2217) 74 MG/DL BUN (test code = 2208) 34 MG/DL CREATININE (test code = 2214) 1.11 MG/DL eGFR AMER. (test code 60 ML/MIN/1.73 = 49783) eGFR NON- AMER. (test 51 ML/MIN/1.73 code = 54781) CALC BUN/CREAT (test code = 31 RATIO [...] (test code = 2219) 13 U/L LIPID [id number] 00:00:00 Test Item Value Reference Range Interpretation Comments CHOLESTEROL (test code = 2210) 220 MG/DL TRIGLYCERIDES (test code = 2232) 136 MG/DL HDL CHOLESTEROL (test code = 2220) 57 MG/DL CALC LDL CHOL (test code = 2237) 136 MG/DL RISK RATIO LDL/HDL (test code = 2.38 RATIO 2238) LIPID [id number] 00:00:00 Test Item Value Reference Range Interpretation Comments CHOLESTEROL (test code = 2210) 220 MG/DL TRIGLYCERIDES (test code = 2232) 136 MG/DL HDL CHOLESTEROL (test code = 2220) 57 MG/DL CALC LDL CHOL (test code = 2237) 136 MG/DL RISK RATIO LDL/HDL (test code = 2.38 RATIO 2238) CBC W/AUTO [id number] 00:00:00 Test Item Value Reference Range Interpretation [...] code = 1015) 294 K/UL CBC W/AUTO [id number] 00:00:00 Test Item Value Reference Range Interpretation [...] code = 1015) 294 K/UL CBC W/AUTO [id number] 00:00:00 Test Item Value Reference Range Interpretation [...] (test code = 1015) 294 K/UL HEMOGLOBIN [id number] 00:00:00 Test Item Value Reference Range Interpretation Comments HEMOGLOBIN A1c (test code = 45849) 6.5 % HEMOGLOBIN [id number] 00:00:00 Test Item Value Reference Range Interpretation Comments HEMOGLOBIN A1c (test code = 28445) 6.5 % HEMOGLOBIN [id number] 00:00:00 Test Item Value Reference Range Interpretation Comments HEMOGLOBIN A1c (test code = 61570) 6.5 % THYROID II PROFILE (T3U, T4, [...] (test code = 2821) 3.1 UIU/ML LIPID [id number] 00:00:00 Test Item Value Reference Range Interpretation Comments CHOLESTEROL (test code = 2210) 220 MG/DL TRIGLYCERIDES (test code = 2232) 136 MG/DL HDL CHOLESTEROL (test code = 2220) 57 MG/DL CALC LDL CHOL (test code = 2237) 136 MG/DL RISK RATIO LDL/HDL (test code = 2.38 RATIO 2238) CBC W/AUTO [id number] 00:00:00 Test Item Value Reference Range Interpretation [...] code = 1015) 294 K/UL CBC W/AUTO [id number] 00:00:00 Test Item Value Reference Range Interpretation [...] (test code = 1015) 294 K/UL HEMOGLOBIN [id number] 00:00:00 Test Item Value Reference Range Interpretation Comments HEMOGLOBIN A1c (test code = 76716) 6.5 % COMPREHENSIVE METABOLIC [id number] 00:00:00 Test Item Value Reference Range Interpretation Comments GLUCOSE (test code = 2217) 74 MG/DL BUN (test code = 2208) 34 MG/DL CREATININE (test code = 2214) 1.11 MG/DL eGFR AMER. (test code 60 ML/MIN/1.73 = 66919) eGFR NON- AMER. (test 51 ML/MIN/1.73 code = 01984) CALC BUN/CREAT (test code = 31 RATIO [...] (test code = 2219) 13 U/L HEMOGLOBIN [id number] 00:00:00 Test Item Value Reference Range Interpretation Comments HEMOGLOBIN A1c (test code = 42138) 6.5 % COMPREHENSIVE METABOLIC [id number] 00:00:00 Test Item Value Reference Range Interpretation Comments GLUCOSE (test code = 2217) 74 MG/DL BUN (test code = 2208) 34 MG/DL CREATININE (test code = 2214) 1.11 MG/DL eGFR AMER. (test code 60 ML/MIN/1.73 = 26813) eGFR NON- AMER. (test 51 ML/MIN/1.73 code = 06202) CALC BUN/CREAT (test code = 31 RATIO [...] CALC GLOBULIN (test code = 3.5 G/DL 0) CALC A/G RATIO (test code = 1.2 RATIO 2234) BILIRUBIN, TOTAL (test code = 0.3 MG/DL 2206) ALKALINE PHOSPHATASE (test 98 U/L code = 2204) AST (test code = 2218) 18 U/L ALT (test code = 2219) 13 U/L LIPID [id number] 00:00:00 Test Item Value Reference Range Interpretation Comments CHOLESTEROL (test code = 2210) 220 MG/DL TRIGLYCERIDES (test code = 2232) 136 MG/DL HDL CHOLESTEROL (test code = 2220) 57 MG/DL CALC LDL CHOL (test code = 2237) 136 MG/DL RISK RATIO LDL/HDL (test code = 2.38 RATIO 2238) LIPID [id number] 00:00:00 Test Item Value Reference Range Interpretation Comments CHOLESTEROL (test code = 2210) 220 MG/DL TRIGLYCERIDES (test code = 2232) 136 MG/DL HDL CHOLESTEROL (test code = 2220) 57 MG/DL CALC LDL CHOL (test code = 2237) 136 MG/DL RISK RATIO LDL/HDL (test code = 2.38 RATIO 2238) CBC W/AUTO [id number] 00:00:00 Test Item Value Reference Range Interpretation [...] code = 1015) 294 K/UL CBC W/AUTO [id number] 00:00:00 Test Item Value Reference Range Interpretation [...] code = 1015) 294 K/UL CBC W/AUTO [id number] 00:00:00 Test Item Value Reference Range Interpretation [...] CALCULATED T7 (FTI) (test code = 1.63 4710) TSH (test code = 2821) 3.1 UIU/ML HEMOGLOBIN [id number] 00:00:00 Test Item Value Reference Range Interpretation Comments HEMOGLOBIN A1c (test code = 10461) 6.5 % HEMOGLOBIN [id number] 00:00:00 Test Item Value Reference Range Interpretation Comments HEMOGLOBIN A1c (test code = 94663) 6.5 % HEMOGLOBIN [id number] 00:00:00 Test Item Value Reference Range Interpretation Comments HEMOGLOBIN A1c (test code = 67697) 6.5 % THYROID II PROFILE (T3U, T4, [...] code = 2821) 3.1 UIU/ML COMPREHENSIVE METABOLIC [id number] 00:00:00 Test Item Value Reference Range Interpretation Comments GLUCOSE (test code = 2217) 74 MG/DL BUN (test code = 2208) 34 MG/DL CREATININE (test code = 2214) 1.11 MG/DL eGFR AMER. (test code 60 ML/MIN/1.73 = 14779) eGFR NON- AMER. (test 51 ML/MIN/1.73 code = 94719) CALC BUN/CREAT (test code = 31 RATIO [...] code = 2219) 13 U/L COMPREHENSIVE METABOLIC [id number] 00:00:00 Test Item Value Reference Range Interpretation Comments GLUCOSE (test code = 2217) 74 MG/DL BUN (test code = 2208) 34 MG/DL CREATININE (test code = 2214) 1.11 MG/DL eGFR AMER. (test code 60 ML/MIN/1.73 = 09561) eGFR NON- AMER. (test 51 ML/MIN/1.73 code = 38974) CALC BUN/CREAT (test code = 31 RATIO [...] (test code = 2219) 13 U/L LIPID [id number] 00:00:00 Test Item Value Reference Range Interpretation Comments CHOLESTEROL (test code = 2210) 220 MG/DL TRIGLYCERIDES (test code = 2232) 136 MG/DL HDL CHOLESTEROL (test code = 2220) 57 MG/DL CALC LDL CHOL (test code = 2237) 136 MG/DL RISK RATIO LDL/HDL (test code = 2.38 RATIO 2238) LIPID [id number] 00:00:00 Test Item Value Reference Range Interpretation Comments CHOLESTEROL (test code = 2210) 220 MG/DL TRIGLYCERIDES (test code = 2232) 136 MG/DL HDL CHOLESTEROL (test code = 2220) 57 MG/DL CALC LDL CHOL (test code = 2237) 136 MG/DL RISK RATIO LDL/HDL (test code = 2.38 RATIO 8) CBC W/AUTO [id number] 00:00:00 Test Item Value Reference Range Interpretation [...] code = 1015) 294 K/UL CBC W/AUTO [id number] 00:00:00 Test Item Value Reference Range Interpretation [...] code = 1015) 294 K/UL CBC W/AUTO [id number] 00:00:00 Test Item Value Reference Range Interpretation [...] (test code = 1015) 294 K/UL HEMOGLOBIN [id number] 00:00:00 Test Item Value Reference Range Interpretation Comments HEMOGLOBIN A1c (test code = 47428) 6.5 % HEMOGLOBIN [id number] 00:00:00 Test Item Value Reference Range Interpretation Comments HEMOGLOBIN A1c (test code = 95190) 6.5 % HEMOGLOBIN [id number] 00:00:00 Test Item Value Reference Range Interpretation Comments HEMOGLOBIN A1c (test code = 05398) 6.5 % THYROID II PROFILE (T3U, T4, [...] code = 2821) 3.1 UIU/ML COMPREHENSIVE METABOLIC [id number] 00:00:00 Test Item Value Reference Range Interpretation Comments GLUCOSE (test code = 2217) 74 MG/DL BUN (test code = 2208) 34 MG/DL CREATININE (test code = 2214) 1.11 MG/DL eGFR AMER. (test code 60 ML/MIN/1.73 = 31675) eGFR NON- AMER. (test 51 ML/MIN/1.73 code = 90856) CALC BUN/CREAT (test code = 31 RATIO [...] (test code = 2219) 13 U/L LIPID [id number] 00:00:00 Test Item Value Reference Range Interpretation Comments CHOLESTEROL (test code = 2210) 220 MG/DL TRIGLYCERIDES (test code = 2232) 136 MG/DL HDL CHOLESTEROL (test code = 2220) 57 MG/DL CALC LDL CHOL (test code = 2237) 136 MG/DL RISK RATIO LDL/HDL (test code = 2.38 RATIO 2238) CBC W/AUTO [id number] 00:00:00 Test Item Value Reference Range Interpretation [...] code = 1015) 294 K/UL CBC W/AUTO [id number] 00:00:00 Test Item Value Reference Range Interpretation [...] (test code = 1015) 294 K/UL HEMOGLOBIN [id number] 00:00:00 Test Item Value Reference Range Interpretation Comments HEMOGLOBIN A1c (test code = 00864) 6.5 % HEMOGLOBIN [id number] 00:00:00 Test Item Value Reference Range Interpretation Comments HEMOGLOBIN A1c (test code = 55184) 6.5 % THYROID II PROFILE (T3U, T4, T7, TSH)2016-05-17 00:00:00 Test Item Value Reference Range Interpretation Comments T3 UPTAKE (test code = 2817) 30.8 % T4 (THYROXINE) (test code = 2819) 5.3 UG/DL CALCULATED T7 (FTI) (test code = 1.63 2820) TSH (test code = 2821) 3.1 UIU/ML COMPREHENSIVE METABOLIC [id number] 00:00:00 Test Item Value Reference Range Interpretation Comments GLUCOSE (test code = 2217) 74 MG/DL BUN (test code = 2208) 34 MG/DL CREATININE (test code = 2214) 1.11 MG/DL eGFR AMER. (test code 60 ML/MIN/1.73 = 21049) eGFR NON- AMER. (test 51 ML/MIN/1.73 code = 12391) CALC BUN/CREAT (test code = 31 RATIO [...] code = 2219) 13 U/L COMPREHENSIVE METABOLIC [id number] 00:00:00 Test Item Value Reference Range Interpretation Comments GLUCOSE (test code = 2217) 74 MG/DL BUN (test code = 2208) 34 MG/DL CREATININE (test code = 2214) 1.11 MG/DL eGFR AMER. (test code 60 ML/MIN/1.73 = 95946) eGFR NON- AMER. (test 51 ML/MIN/1.73 code = 67345) CALC BUN/CREAT (test code = 31 RATIO [...] (test code = 2219) 13 U/L LIPID [id number] 00:00:00 Test Item Value Reference Range Interpretation Comments CHOLESTEROL (test code = 2210) 220 MG/DL TRIGLYCERIDES (test code = 2232) 136 MG/DL HDL CHOLESTEROL (test code = 2220) 57 MG/DL CALC LDL CHOL (test code = 2237) 136 MG/DL RISK RATIO LDL/HDL (test code = 2.38 RATIO 2238) LIPID [id number] 00:00:00 Test Item Value Reference Range Interpretation Comments CHOLESTEROL (test code = 2210) 220 MG/DL TRIGLYCERIDES (test code = 2232) 136 MG/DL HDL CHOLESTEROL (test code = 2220) 57 MG/DL CALC LDL CHOL (test code = 2237) 136 MG/DL RISK RATIO LDL/HDL (test code = 2.38 RATIO 2238) CBC W/AUTO [id number] 00:00:00 Test Item Value Reference Range Interpretation [...] code = 1015) 294 K/UL CBC W/AUTO [id number] 00:00:00 Test Item Value Reference Range Interpretation [...] code = 1015) 294 K/UL CBC W/AUTO [id number] 00:00:00 Test Item Value Reference Range Interpretation [...] (test code = 1015) 294 K/UL HEMOGLOBIN [id number] 00:00:00 Test Item Value Reference Range Interpretation Comments HEMOGLOBIN A1c (test code = 24447) 6.5 % HEMOGLOBIN [id number] 00:00:00 Test Item Value Reference Range Interpretation Comments HEMOGLOBIN A1c (test code = 80041) 6.5 % HEMOGLOBIN [id number] 00:00:00 Test Item Value Reference Range Interpretation Comments HEMOGLOBIN A1c (test code = 38431) 6.5 % THYROID II PROFILE (T3U, T4, [...] code = 2821) 3.1 UIU/ML COMPREHENSIVE METABOLIC [id number] 00:00:00 Test Item Value Reference Range Interpretation Comments GLUCOSE (test code = 2217) 74 MG/DL BUN (test code = 2208) 34 MG/DL CREATININE (test code = 2214) 1.11 MG/DL eGFR AMER. (test code 60 ML/MIN/1.73 = 65566) eGFR NON- AMER. (test 51 ML/MIN/1.73 code = 95964) CALC BUN/CREAT (test code = 31 RATIO [...] code = 2219) 13 U/L COMPREHENSIVE METABOLIC [id number] 00:00:00 Test Item Value Reference Range Interpretation Comments GLUCOSE (test code = 2217) 74 MG/DL BUN (test code = 2208) 34 MG/DL CREATININE (test code = 2214) 1.11 MG/DL eGFR AMER. (test code 60 ML/MIN/1.73 = 17733) eGFR NON- AMER. (test 51 ML/MIN/1.73 code = 02548) CALC BUN/CREAT (test code = 31 RATIO [...] (test code = 2219) 13 U/L LIPID [id number] 00:00:00 Test Item Value Reference Range Interpretation Comments CHOLESTEROL (test code = 2210) 220 MG/DL TRIGLYCERIDES (test code = 2232) 136 MG/DL HDL CHOLESTEROL (test code = 2220) 57 MG/DL CALC LDL CHOL (test code = 2237) 136 MG/DL RISK RATIO LDL/HDL (test code = 2.38 RATIO 2238) LIPID [id number] 00:00:00 Test Item Value Reference Range Interpretation Comments CHOLESTEROL (test code = 2210) 220 MG/DL TRIGLYCERIDES (test code = 2232) 136 MG/DL HDL CHOLESTEROL (test code = 2220) 57 MG/DL CALC LDL CHOL (test code = 2237) 136 MG/DL RISK RATIO LDL/HDL (test code = 2.38 RATIO 2238) CBC W/AUTO [id number] 00:00:00 Test Item Value Reference Range Interpretation [...] code = 1015) 294 K/UL CBC W/AUTO [id number] 00:00:00 Test Item Value Reference Range Interpretation [...] code = 1015) 294 K/UL CBC W/AUTO [id number] 00:00:00 Test Item Value Reference Range Interpretation [...] (test code = 1015) 294 K/UL HEMOGLOBIN [id number] 00:00:00 Test Item Value Reference Range Interpretation Comments HEMOGLOBIN A1c (test code = 23805) 6.5 % HEMOGLOBIN [id number] 00:00:00 Test Item Value Reference Range Interpretation Comments HEMOGLOBIN A1c (test code = 90056) 6.5 % HEMOGLOBIN [id number] 00:00:00 Test Item Value Reference Range Interpretation Comments HEMOGLOBIN A1c (test code = 27149) 6.5 % THYROID II PROFILE (T3U, T4, T7, TSH)2016-05-17 00:00:00 Test Item Value Reference Range Interpretation Comments T3 UPTAKE (test code = 2817) 30.8 % T4 (THYROXINE) (test code = 2819) 5.3 UG/DL CALCULATED T7 (FTI) (test code = 1.63 6350) TSH (test code = 2821) 3.1 UIU/ML THYROID II PROFILE (T3U, T4, T7, TSH)2016-05-17 00:00:00 Test Item Value Reference Range Interpretation Comments T3 UPTAKE (test code = 2817) 30.8 % T4 (THYROXINE) (test code = 2819) 5.3 UG/DL CALCULATED T7 (FTI) (test code = 1.63 5970) TSH (test code = 2821) 3.1 UIU/ML
[2022-07-17] MEDS ORDERED: NA CHLORIDE 0.9% 1,000 ML ONE (18:54)
[2022-07-17] MEDS ORDERED: NALOXONE 0.4 MG/ML VIAL ONE (18:54)
--- NOTE | 2022-07-17 19:59 | RAD REPORT ---
EXAM DESCRIPTION: [facility] Single View07/17/2022 7:34 pm CLINICAL HISTORY: hypotension COMPARISON: Chest Single View dated 06/26/2022; Chest Single View dated 06/22/2022; Chest Single View dated 09/04/2021; Chest Single View dated 08/03/2017 TECHNIQUE: Portable AP view of the chest. FINDINGS: Right arm PICC has been slightly retracted. The catheter tip now projects at the level of the superior cavoatrial junction. Decreased inspiratory effort somewhat limits evaluation. Developing patchy retrocardiac airspace opacity, concerning for atelectasis or early pneumonia. More subtle patchy opacities along the more peripheral left basal lung. No pneumothorax or effusion. The c ardiomediastinal contours are unremarkable. IMPRESSION: As above.
[2022-07-17 20:31] LABS: Absolute Lymphocytes (CBC) 2.5 K/uL (0.7-4.9); Hematocrit 34.4 % (36.0-45.0); Lymphocytes % 40.2 % (15.3-44.8); MCV 91.4 fL (80-100); MPV 9.9 fL (7.6-11.3); RBC Red Blood Cell Count 3.77 M/uL (3.86-4.86)
[2022-07-17 20:56] LABS: Potassium 4.4 mmol/L (3.5-5.1); Troponin High Sensitivity 6.9 pg/mL (<58.9)
--- NOTE | 2022-07-17 21:18 | EDPHYS ---
Physician Documentation [facility] Name: Kinga Singleton Age: 71 yrs Sex: Female : 1950 Arrival Date: 07/17/2022 Time: 17:57 Bed 8 Private MD: ED Physician Murray Ponce HPI: 07/17 18:46 This 71 yrs old Female presents to ER via Wheelchair with complaints of Low rn Blood Pressure, abnormal ekg, Dizziness. 18:50 The patient has elevated blood pressure and discovered this at a physician's office, rn and sent to the emergency department for evaluation. Onset: The symptoms/episode began/occurred just prior to arrival. Modifying factors: The symptoms are aggravated by 2 x clonidine. Associated signs and symptoms: Pertinent positives: dizziness, Pertinent negatives: chest pain, headache, vomiting, weakness. Severity of symptoms: At its worst the blood pressure was severe, in the emergency department the blood pressure is hypotensive. The patient has not experienced similar symptoms in the past. The patient has been recently seen by a physician:. Sent by PCP after had high BP in clinic, had been out of her HTN meds for a few weeks, given 2 clonidine for her HTN of 200/100 in clinic, observed for a while there after became hypotensive and sleepy, sent here for further treatment. Never with chest pain/sob/abd pain. . Historical: - Allergies: 19:20 No Known Allergies; jl7 - PMHx: 18:22 Diabetes - IDDM; Hypercholesterolemia; Hypertensive disorder; jh5 - PSHx: 18:22 Total abdominal hysterectomy; 5 - Immunization history:: Adult Immunizations up to date. - Social history:: Smoking status: Patient denies any tobacco usage or history of. - Family history:: not pertinent. - Hospitalizations: : No recent hospitalization is reported. ROS: 18:50 Constitutional: Negative for fever, chills, and weight loss, Eyes: Negative for injury, rn pain, redness, and discharge, Neck: Negative for injury, pain, and swelling, Cardiovascular: Negative for chest pain, palpitations, and edema, Respiratory: Negative for shortness of breath, cough, wheezing, and pleuritic chest pain, Abdomen/GI: Negative for abdominal pain, nausea, vomiting, diarrhea, and constipation, Back: Negative for injury and pain, MS/Extremity: Negative for injury and deformity, Skin: Negative for injury, rash, and discoloration, Neuro: Negative for headache, weakness, numbness, tingling, and seizure. Exam: 18:50 Constitutional: This is a well developed, well nourished patient who is awake, rn somnolent Head/Face: Normocephalic, atraumatic. Eyes: Pupils equal round and reactive to light, extra-ocular motions intact. Cardiovascular: Regular rate and rhythm. No pulse deficits. Respiratory: No increased work of breathing, no retractions or nasal flaring. Abdomen/GI: Soft, non-tender Skin: Warm, dry MS/ Extremity: Pulses equal, no cyanosis. Neuro: Awake, somnolent, non focal neuro exam. 21:23 ECG was reviewed by the Attending Physician. [facility] Vital Signs: 18:15 BP 81 / 55 Sitting; Pulse 81; Resp 18; Temp 98.6; Pulse Ox 98% ; Weight 72.57 kg; 5 Height 5 ft. 2 in. (157.48 cm); Pain 0/10; 18:23 BP 85 / 56; Pulse 81; Resp 18; Pulse Ox 100% ; jh5 18:33 BP 66 / 47; Pulse 83; Resp 18; Pulse Ox 99% ; 5 19:00 BP 80 / 58; Pulse 76; Resp 15; Pulse Ox 98% ; jl7 19:19 BP 95 / 65; Pulse 77; Resp 15; Pulse Ox 98% ; jl7 20:00 BP 94 / 53; Pulse 68; Resp 25; Pulse Ox 97% ; vc1 21:00 BP 154 / 76; Pulse 67; Resp 24; Pulse Ox 100% ; vc1 21:30 BP 144 / 68; Pulse 64; Resp 16; Pulse Ox 98% ; vc1 18:15 Body Mass Index 29.26 (72.57 kg, 157.48 cm) [facility] MDM: 18:37 Patient medically screened. rn 19:13 Transition of care: After a detail discussion of the patient's case, care is rn transferred to Murray Ponce MD. 21:15 Differential diagnosis: hypertensive crisis, Malignant HTN. Data reviewed: vital signs, [facility] nurses notes, EMS record, lab test result(s), EKG, radiologic studies, CT scan, plain films. Consideration of Admission/Observation Patient was admitted/placed on observation. Escalation of care including admission/observation considered. I considered the following discharge prescriptions or medication management in the emergency department Medications were administered in the Emergency Department. See MAR. Historians other than the Patient: Daughter/Son: son , well informed. Care significantly affected by the following chronic conditions: Diabetes, Hypertension. 07/17 18:41 Order name: Basic Metabolic Panel rn 07/17 18:41 Order name: CBC with Diff rn 07/17 18:41 Order name: NT PRO-BNP rn 07/17 18:41 Order name: Troponin HS rn 07/17 20:46 Order name: CBC with Automated Diff; Complete Time: 20:58 EDMS 07/17 20:56 Order name: Basic Metabolic Panel; Complete Time: 20:58 EDMS 07/17 18:41 Order name: XRAY Chest (1 view) rn 07/17 19:59 Order name: RAD; Complete Time: 20:44 EDMS 07/17 20:56 Order name: Troponin High Sensitivity; Complete Time: 20:58 EDMS 07/17 20:56 Order name: NT PRO-BNP; Complete Time: 20:58 EDMS 07/17 21:14 Order name: Blood Culture Adult (2) [facility] 07/17 18:41 Order name: EKG; Complete Time: 18:42 rn 07/17 18:41 Order name: Cardiac monitoring; Complete Time: 19:18 rn 07/17 18:41 Order name: EKG - Nurse/Tech; Complete Time: 19:32 rn 07/17 18:41 Order name: IV Saline Lock; Complete Time: 19:18 rn 07/17 18:41 Order name: Labs collected and sent; Complete Time: 19:18 rn 07/17 18:41 Order name: O2 Per Protocol; Complete Time: 19:18 rn 07/17 18:41 Order name: O2 Sat Monitoring; Complete Time: 19:18 rn EC:23 Rate is 71 beats/min. Rhythm is regular. QRS [place] is Normal. NV interval is normal. QRS cr interval is normal. QT interval is normal. No Q waves. T waves are Normal. No ST changes noted. Clinical impression: NSR w/ Non-specific ST/T Changes and No evidence of ischemia. Interpreted by me. Reviewed by me. Administered Medications: 19:00 Drug: NARcan (naloxone) 0.4 mg Route: IVP; Site: right antecubital; jl7 19:30 Follow up: Response: No adverse reaction vc1 19:18 Drug: NS 0.9% 1000 ml Route: IV; Rate: 1000 ml; Site: right antecubital; jl7 20:00 Follow up: IV Status: Completed infusion; IV Intake: 1000ml vc1 22:20 Drug: Rocephin (cefTRIAXone) 1 grams Route: IV; Rate: per protocol; Site: PICC; vc1 22:30 Follow up: Response: No adverse reaction; IV Status: Completed infusion; IV Intake: [id number] 22:41 Drug: Zithromax (azithromycin) 500 mg Route: PO; vc1 07/18 00:00 Follow up: Response: No adverse reaction vc1 07/17 22:41 Drug: Norvasc (amlodipine) 5 mg Route: PO; vc1 07/18 00:00 Follow up: Response: No adverse reaction; Marked relief of symptoms vc1 Disposition Summary: 07/17/22 21:18 Discharge Ordered Location: Home cr Problem: new cr Symptoms: have improved cr Condition: Stable cr Diagnosis - Pneumonia due to other specified bacteria - left base cr - Essential (primary) hypertension cr - Hypotension, unspecified - resolved cr Followup: cr - With: Private Physician - When: 2 - 3 days - Reason: Recheck today's complaints, Continuance of care, Re-evaluation by your physician Discharge Instructions: - Discharge Summary Sheet cr - Hypertension, Adult cr - Hypotension cr - Community-Acquired Pneumonia, Adult cr - Hypertension, Adult, [id number] cr - Community-Acquired Pneumonia, Adult, [id number] cr - How to Take Your Blood Pressure, [id number] cr - Managing Your Hypertension cr Forms: - Medication Reconciliation Form cr - Thank You Letter cr - Antibiotic Education cr - Prescription Opioid Use cr Prescriptions: - Zithromax 500 mg Oral Tablet - take 1 tablet by ORAL route once daily for 4 days; 4 tablet; Refills: 0, cr Product Selection Permitted Signatures: Dispatcher [employer] Murray Echavarria MD MD cha Nieto, Roman, MD MD rn Leal, Jahala RN RN jl7 Mari Metcalf RN RN jh5 Salome Terry RN RN vc1
--- NOTE | 2022-07-17 21:18 | ER ---
Nurse's Notes [facility] Name: Kinga Singleton Age: 71 yrs Sex: Female : 1950 Arrival Date: 07/17/2022 Time: 17:57 Bed 8 Private MD: Diagnosis: Pneumonia due to other specified bacteria-left base;Essential (primary) hypertension;Hypotension, unspecified-resolved Presentation: 07/17 18:15 Chief complaint: Patient states: Dr. Ochoa office today and told she has high blood jh5 pressure, gave her 2 pills medicine at 4:50pm in office and watched her for 15-20 minutes and it didn't come down so told them to come here. That doctor overt here didn't tell me what the 2 pills were so i dont know what i took... pt has been at home 10 days without blood pressure medicine, so HAS NOT been taking BP meds. Went to primary doc with HTN today, primary doc gave 2 unknown pills for HTN. Coronavirus screen: Vaccine status: Patient reports receiving the 2nd dose of the covid vaccine. Client denies travel out of the [place] in the last 14 days. Ebola Screen: Patient negative for fever greater than or equal to 101.5 degrees Fahrenheit, and additional compatible Ebola Virus Disease symptoms Patient denies exposure to infectious person. Patient denies travel to an Ebola-affected area in the 21 days before illness onset. Initial Sepsis Screen: Does the patient meet any 2 criteria? No. Patient's initial sepsis screen is negative. Does the patient have a suspected source of infection? No. Patient's initial sepsis screen is negative. Risk Assessment: Do you want to hurt yourself or someone else? Patient reports no desire to harm self or others. Onset of symptoms was July 14, 2022. 18:15 Method Of Arrival: Wheelchair jh5 18:15 Acuity: JITENDRA 3 jh5 18:42 Acuity: JITENDRA 2 iw Triage Assessment: 18:22 General: Appears comfortable, well groomed, well developed, well nourished, Behavior is jh5 calm, cooperative, appropriate for age. Pain: Denies pain. Historical: - Allergies: 19:20 No Known Allergies; jl7 - PMHx: 18:22 Diabetes - IDDM; Hypercholesterolemia; Hypertensive disorder; jh5 - PSHx: 18:22 Total abdominal hysterectomy; jh5 - Immunization history:: Adult Immunizations up to date. - Social history:: Smoking status: Patient denies any tobacco usage or history of. - Family history:: not pertinent. - Hospitalizations: : No recent hospitalization is reported. Screenin:23 [facility] ED Fall Risk Assessment (Adult) History of falling in the last 3 months, vc1 including since admission No falls in past 3 months (0 pts) Confusion or Disorientation No (0 pts) Intoxicated or Sedated No (0 pts) Impaired Gait No (0 pts) Mobility Assist Device Used No (0 pt) Altered Elimination No (0 pt) Score/Fall Risk Level 0 - 2 = Low Risk Oriented to surroundings, Maintained a safe environment, Educated pt \T\ family on fall prevention, incl call for assistance when getting out of bed. Abuse screen: Denies threats or abuse. Nutritional screening: No deficits noted. Tuberculosis screening: No symptoms or risk factors identified. Assessment: 21:37 Reassessment: Patient and/or family updated on plan of care and expected duration. Pain vc1 level reassessed. Patient is alert, oriented x 3, equal unlabored respirations, skin warm/dry/pink. Patient states feeling better. Patient states symptoms have improved. 22:42 Reassessment: Patient and/or family updated on plan of care and expected duration. Pain vc1 level reassessed. Patient is alert, oriented x 3, equal unlabored respirations, skin warm/dry/pink. Patient denies pain at this time. Patient states feeling better. Patient states symptoms have improved. Vital Signs: 18:15 BP 81 / 55 Sitting; Pulse 81; Resp 18; Temp 98.6; Pulse Ox 98% ; Weight 72.57 kg; jh5 Height 5 ft. 2 in. (157.48 cm); Pain 0/10; 18:23 BP 85 / 56; Pulse 81; Resp 18; Pulse Ox 100% ; jh5 18:33 BP 66 / 47; Pulse 83; Resp 18; Pulse Ox 99% ; jh5 19:00 BP 80 / 58; Pulse 76; Resp 15; Pulse Ox 98% ; jl7 19:19 BP 95 / 65; Pulse 77; Resp 15; Pulse Ox 98% ; jl7 20:00 BP 94 / 53; Pulse 68; Resp 25; Pulse Ox 97% ; vc1 21:00 BP 154 / 76; Pulse 67; Resp 24; Pulse Ox 100% ; vc1 21:30 BP 144 / 68; Pulse 64; Resp 16; Pulse Ox 98% ; vc1 18:15 Body Mass Index 29.26 (72.57 kg, 157.48 cm) [facility] ED Course: 17:57 Patient arrived in ED. am2 18:22 Triage completed. [facility] 18:22 Arm band placed on right wrist. [facility] 18:37 Domingo Kohli MD is Attending Physician. rn 19:00 Initial lab(s) drawn, by md, sent to lab. Inserted saline lock: 20 gauge in right jl7 antecubital area, using aseptic technique. Blood collected. 19:44 Attending Physician role handed off by Domingo Kohli MD [facility] 19:44 Murray Ponce MD is Attending Physician. [facility] 20:23 Patient has correct armband on for positive identification. Bed in low position. Call vc1 light in reach. Client placed on continuous cardiac and pulse oximetry monitoring. NIBP monitoring applied. 22:40 Salome Terry RN is Primary Nurse. [facility] 22:42 No provider procedures requiring assistance completed. pt with picc from home. vc1 Administered Medications: 19:00 Drug: NARcan (naloxone) 0.4 mg Route: IVP; Site: right antecubital; 7 19:30 Follow up: Response: No adverse reaction [facility] 19:18 Drug: NS 0.9% 1000 ml Route: IV; Rate: 1000 ml; Site: right antecubital; jl7 20:00 Follow up: IV Status: Completed infusion; IV Intake: 1000ml [facility] 22:20 Drug: Rocephin (cefTRIAXone) 1 grams Route: IV; Rate: per protocol; Site: PICC; 1 22:30 Follow up: Response: No adverse reaction; IV Status: Completed infusion; IV Intake: 85auhg5 22:41 Drug: Zithromax (azithromycin) 500 mg Route: PO; vc1 07/18 00:00 Follow up: Response: No adverse reaction 1 07/17 22:41 Drug: Norvasc (amlodipine) 5 mg Route: PO; vc1 07/18 00:00 Follow up: Response: No adverse reaction; Marked relief of symptoms [facility] Medication: 07/17 19:00 VIS not applicable for this client. 7 Intake: 20:00 IV: 1000ml; Total: 1000ml. vc1 22:30 IV: 10ml; Total: 1010ml. vc1 Outcome: 21:18 Discharge ordered by . cr 22:44 Discharged to home via wheelchair, with family. 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 medication usage, Demonstrated understanding of instructions, follow-up care, medications. 22:45 Prescriptions given X 1. vc1 22:45 Patient left the ED. vc1 Signatures: Murray Ponce MD MD cha Williams, Irene, RN RN Domingo Aquino MD MD rn Leal, Jahala RN RN jl7 Susan Falk Jessica, RN RN jh5 Salome Terry RN RN vc1 Corrections: (The following items were deleted from the chart) 18:25 18:15 Chief complaint: Patient states: Dr. Ochoa office today and told she has high jh5 blood pressure, gave her 2 pills medicine in office and watched her for 15-20 minutes and it didn't come down so told them to come here. That doctor overt here didn't tell me what the 2 pills were so i dont know what i took jh5 18:26 18:15 Chief complaint: Patient states: Dr. Ochoa office today and told she has high jh5 blood pressure, gave her 2 pills medicine in office and watched her for 15-20 minutes and it didn't come down so told them to come here. That doctor overt here didn't tell me what the 2 pills were so i dont know what i took... pt has been at home 10 days without blood pressure medicine, so HAS NOT been taking BP meds. Went to primary doc with HTN today, primary doc gave 2 unknown pills for HTN. jh5
[2022-07-17] MEDS ORDERED: AMLODIPINE 5 MG TAB ONE (22:28)
[2022-07-17] MEDS ORDERED: AZITHROMYCIN 250 MG TAB ONE (22:29)
[2022-07-17] MEDS ORDERED: CEFTRIAXONE 1000 MG/VIAL ONE (22:29)
[2022-07-17 23:41] VITALS: TEMP 98.6
[2022-07-17 23:49] VITALS: BP 144/68; O2SAT 98
--- NOTE | 2022-07-18 17:11 | EKG ---
Test Date: 2022-07-17 Test Time: 19:30:52 Family Manager: MARJORIE MEASUREMENT RESULTS: Intervals: Rate: 71 FL: 204 QRSD: 82 QT: 424 QTc: 460 [place]: P: 18 FL: 204 QRS: 62 T: 67 INTERPRETIVE STATEMENTS: Normal sinus rhythm Normal ECG Compared to ECG 06/22/2022 19:41:48 No significant changes Electronically Signed On 07-18-22 17:08:54 THRESHING OPERATOR by Calos Calle
== END 2022-07-17 22:45 | disposition home or self-care (01) ==
LOC: ER 17:56
DX: J15.8 Pneumonia due to other specified bacteria (principal); I10 Essential (primary) hypertension; E11.9 Type 2 diabetes mellitus without complications
CPT/HCPCS: 93005; 87040 ×2; 85025; 80048; 36415; 84484; 83880; 71045; 99291; 99292; J2310; J7030

== ENCOUNTER 2023-01-11 20:04 | Inpatient (IN) | payer OTHER ==
--- OUTSIDE RECORDS SUMMARY | 2023-01-11 20:37 | XMS REPORT | Continuity of Care Document ---
:1950 Author Organization [facility] t Address [address] [facility] [address] [place] [address] Care Team Providers Name Role Phone ZEHRA MARSH Primary Care Physician Unavailable SHERRIE ANTONIO Attending Clinician Unavailable Doctor Unassigned, [place] Attending Clinician Unavailable Kari Groves Attending Clinician Unavailable Leslie Hinds Attending Clinician LESLIE MARTINEZ Attending Clinician Unavailable Kari Groves Admitting Clinician Unavailable Payers Payer Name Policy Type Policy Number Effective Date Expiration Date S ource Problems Condition Condition Condition Status Onset Resolution Last Treating Co mments Source Name Details Category Date Date Treatment Clinician Date Chronic Chronic Disease Active Univers pain of pain of 7-31 [place] [facility] Chronic Chronic Disease Active Univers pain of pain of 7-31 [place] [facility] Sjogren's Sjogren's Disease Active Uni vers syndrome: syndrome: 7-11 ity of +SSA +SSA 00:00: [address] Proteinuri Proteinuri Disease Active U nivers a a 6-13 ity of 00:00: [address] ESR raised ESR raised Disease Active U nivers 6-06 ity of 00:00: [address] 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 4-04 it y of present present 00:00: [place] 00 [facility] Immunizati Immunizati Disease Active U nivers on on 09-05 ity of counseling [place] [facility] [place] Rotator Rotator Disease Active Univers cuff tear cuff tear 09-05 ity of arthropath arthropath [place] right y of right 00 Or dical shoulder shoulder Branch Dry eyes Dry eyes Disease Active Unive rs - ity of 00:00: [place] 00 [facility] Pain in Pain in Disease Active Univers both hands both hands 09-05 it y of 00:00: [place] 00 [facility] [place] Allergies, Adverse Reactions, Alerts Allergy Allergy Status Severity Reaction(s) Onset Inactive Treating Comm ents Source Name Type Date Date Clinician No Known DA Active U 2013-06 [facility] All[facility]ie 07-22 [facility] NO KNOWN Drug Active Univers ALLERGIE Class ity of S [facility] Social History Social Habit Start Date Stop Date Quantity Comments Source Gender identity Universit y of [facility] Sexual orientation Univer sity of [facility] History of Social 2017-09-05 2017-09-05 Univers ity of function 00:00:00 00:00:00 [facility] Tobacco use and 2017-09-05 2017-09-05 Smokeless Universit y of exposure 00:00:00 00:00:00 tobacco non-user [facility] dical [place] Alcohol intake 2017-09-05 2017-09-05 Current University of 00:00:00 00:00:00 non-drinker of [facility] alcohol Branch (finding) Sex Ass[birth year] At [birth year] Universit y of 00:00:00 00:00:00 [facility] Smoking Status Start Date Stop Date Source Never smoked tobacco [facility] Medications Ordered Filled Start Stop Current Ordering Indication Dosage Frequency Signature Comments Components Source Medication Medication Date Date Medication? Clinician (SIG) Name Name Dose 2021-06 No Unknown 2-21 00:00: 00 Dose 2021-06 No Unknown 2-21 00:00: 00 Dose 2021-06 No Unknown 2-21 00:00: 00 TAKE 1 2021-06 No TABLET AT 2-13 BEDTIME. 00:00: [...] TABLET 2-13 TWICE 00:00: DAILY. 00 TOME 2021-06 No TABLETA 2-13 TODOS LOS D [...] TABLET 2-13 TWICE 00:00: DAILY. 00 TAKE 1 2021-06 No TABLET BY [...] 50-1000 MG 2- TB24 00:00: 00 Dose 2021- No Unknown 1-03 00:00: 00 TOME JAGDISH 2021-06 No TABLETA DOS 1-03 VECES AL D 00:00: A 00 TOME JAGDISH 2021-06 No TABLETA DOS 1-03 VECES AL D 00:00: A 00 TOME JAGDISH 2021-06 No TABLETA DOS 1-03 VECES AL D 00:00: A 00 MUPIROCIN 2 No % OINT 02-08 00:00: 00 MUPIROCIN 2 2022-0 No % OINT 02-08 00:00: 00 MUPIROCIN 2 2022-0 No % OINT 02-08 00:00: 00 MUPIROCIN 2 2022-0 No % OINT 02-08 00:00: 00 MUPIROCIN 2 2022-0 No % OINT 02-08 00:00: 00 MUPIROCIN 2 2022-0 No % OINT 02-08 00:00: 00 &lt [...] 00:00: A 00 Dose 2-0 No Unknown 7- 00:00: 00 TOME JAGDISH 2021-0 No 40 [...] 00:00: A 00 Dose 2-0 No Unknown 7- 00:00: 00 TOME JAGDISH 2021-0 No 40 TABLETA POR 7-26 V A ORAL 00:00: TODOS LOS D 00 TOME JAGDISH 2021-0 No TABLETA DOS 7-26 VECES AL D 00:00: A 00 Dose 2022-0 No Unknown 7-26 00:00: 00 TOME JAGDISH 2021-0 No 40 TABLETA POR 7-26 V A ORAL 00:00: TODOS LOS D 00 TOME JAGDISH 2021-0 No TABLETA DOS 7-26 VECES AL D 00:00: A 00 Dose 2-0 No Unknown 7- 00:00: 00 TOME JAGDISH 2021-0 No 40 TABLETA POR 7-26 V A ORAL 00:00: TODOS LOS D 00 TOME JAGDISH 2021-0 No TABLETA DOS 7-26 VECES AL D 00:00: A 00 Dose 2-0 No Unknown 7- 00:00: 00 TOME JAGDISH 2021-0 No 40 TABLETA POR 7-26 V A ORAL 00:00: DOS LOS D 00 Dose 2-0 No Unknown 7-25 00:00: 00 Dose 2022-0 No Unknown 7-25 00:00: 00 Dose 2022-0 No Unknown 7-25 00:00: 00 Dose 2022-0 No Unknown 7-25 00:00: 00 Dose 2022-0 No Unknown 7-25 00:00: 00 Dose 2022-0 No Unknown 7-25 00:00: 00 Dose 2022-0 No Unknown 7-25 00:00: 00 TOME JAGDISH 2-0 No TABLETA DOS 7-12 VECES AL D 00:00: A 00 TOME JAGDISH 2-0 No TABLETA DOS 7-12 VECES AL D 00:00: A 00 TOME JAGDISH 2-0 No TABLETA DOS 7-12 VECES AL D 00:00: A 00 TOME JAGDISH 2-0 No TABLETA DOS 7-12 VECES AL D 00:00: A 00 TOME JAGDISH 2-0 No TABLETA DOS 7-12 VECES AL D 00:00: A 00 TOME JAGDISH 2-0 No TABLETA DOS 7-12 VECES AL D 00:00: A 00 TOME JAGDISH 2-0 No TABLETA DOS 7-12 VECES AL D 00:00: A 00 INJECT 2022-0 No UNITS BELOW 7-06 THE SKIN AT 00:00: BEDTIME 00 INJECT 55 UNITS APLIQUE A 2022-0 No DIARIO A LA 7-06 PIEL EL LC 00:00: AFECTADA 00 TODOS LOS D INJECT 2021-0 No UNITS BELOW 7-06 THE SKIN AT 00:00: BEDTIME 00 INJECT 55 UNITS APLIQUE A 0 No DIARIO A LA 7-06 PIEL EL LC 00:00: AFECTADA 00 TODOS LOS D INJECT 0 No UNITS BELOW 7-06 THE SKIN AT 00:00: BEDTIME 00 INJECT 55 UNITS APLIQUE A 0 No DIARIO A LA 7- PIEL EL LC 00:00: AFECTADA 00 TODOS LOS D INJECT 0 No UNITS BELOW 7-06 THE SKIN AT 00:00: BEDTIME 00 INJECT 55 UNITS APLIQUE A 0 No DIARIO A LA 7- PIEL EL LC 00:00: AFECTADA 00 TODOS LOS D INJECT 0 No UNITS BELOW 7-06 THE SKIN AT 00:00: BEDTIME 00 INJECT 55 UNITS APLIQUE A 0 No DIARIO A LA 7 PIEL EL LC 00:00: AFECTADA 00 TODOS LOS D INJECT 0 No UNITS BELOW 7-06 THE SKIN AT 00:00: BEDTIME 00 INJECT 55 UNITS APLIQUE A 0 No DIARIO A LA 7 PIEL EL LC 00:00: AFECTADA 00 TODOS LOS D INJECT 0 No UNITS BELOW 7-06 THE SKIN AT 00:00: BEDTIME 00 INJECT 55 UNITS APLIQUE A 0 No DIARIO A LA 7 PIEL EL LC 00:00: AFECTADA 00 TODOS LOS D TAKE 1 No 10 TABLET BY 05 MOUTH DAILY 00:00: JULIET JAGDISH 00 TABLETA JAGDISH VECE AL IPTO PARA LA SHANNAN OSEA TAKE 2021-0 No 20 TABLET BY 7-05 MOUTH [...] TOME JAGDISH 2021-0 No 10 TABLETA POR - V A ORAL 00:00: TODOS LOS D [...] TABLET BY 7-05 MOUTH DAILY 00:00: JULIET AJGDISH 00 TABLETA JAGDISH VECES AL PITO PARA [...] 12-06 00:00: 00 Dose 2021-0 No Unknown 7 00:00: 00 Dose 2021-0 No Unknown 12-06 00:00: 00 TAKE 1 2021-0 No 100 TABLET BY 7-05 MOUTH DAILY 00:00: JULIET JAGDISH 00 TABLETA JAGDISH VECES AL PITO PARA LA PRESION ARTERIAL TOME JAGDISH 0 No 10 TABLETA POR 7-05 V A ORAL 00:00: TODOS LOS D 00 TOME JAGDISH 2021-0 No 500 TABLETA 12-06DOS LOS D 00:00: 00 Dose 2021-0 No [...] TAKE 1 2021-0 No 100 TABLET BY 05 MOUTH DAILY 00:00: JULIET JAGDISH 00 TABLETA JAGDISH VECES AL PITO PARA LA PRESION ARTERIAL TOME JAGDISH 2021-0 No 10 TABLETA POR 12-06 V A ORAL 00:00: TODOS LOS D 00 TOME JAGDISH 2021-0 No 500 TABLETA 12-06DOS LOS D 00:00: 00 Dose 2021-0 No [...] 12-06 00:00: 00 Dose 2021-0 No Unknown 7- 00:00: 00 Dose 2021-0 No Unknown 12-06 [...] 2021-0 No Unknown 7- 00:00: 00 Dose 2-0 No Unknown 7-05 00:00: 00 TAKE 1 2021-0 No 10 TABLET BY 7-05 MOUTH DAILY 00:00: JULIET JAGDISH 00 TABLETA JAGDISH VECE AL PITO PARA LA SHANNAN OSEA TAKE 1 2021-0 No 20 TABLET BY 7-05 MOUTH AT 00:00: BEDTIME 00 JULIET JAGDISH TABLETA EN LA NOCHE PARA EL COLESTEROL Dose 2021-0 No Unknown 7- 00:00: 00 Dose 2022-0 No Unknown 7- 00:00: 00 Dose 2-0 No Unknown 7-05 00:00: 00 TAKE 1 2021-0 No 100 TABLET BY 705 MOUTH DAILY 00:00: JULIET JAGDISH 00 TABLETA JAGDISH VECES AL PITO PARA LA PRESION ARTERIAL TOME JAGDISH 2021-0 No 10 TABLETA POR 705 V A ORAL 00:00: TODOS LOS D 00 TOME JAGDISH 2021-0 No 500 TABLETA 12-06 TODOS LOS D 00:00: 00 Dose 2021-0 No Unknown 7- 00:00: 00 Dose 2-0 No Unknown 7-05 00:00: 00 Levemir 2-0 No (3 mL) FlexTouch 6-20 U-100 00:00: [...] 2022-0 No Unknown 6-20 00:00: 00 Dose 2-0 No Unknown 6-20 00:00: 00 Dose 2-0 No Unknown 6-20 00:00: 00 Dose 2-0 No Unknown 6-20 00:00: 00 Dose 2-0 No Unknown 6-20 00:00: 00 lisinopril 2-0 No 1mg 40 mg 6-20 tablet 00:00: 00 amlodipine 2-0 No 1mg 10 mg 6-20 tablet 00:00: 00 Dose 2-0 No Unknown 6-20 00:00: 00 Dose 2-0 No Unknown 6-20 00:00: 00 Dose 2-0 No Unknown 6-20 00:00: 00 Dose 2-0 No Unknown 6-20 00:00: 00 Dose 2-0 No Unknown 6-20 00:00: 00 Dose 2-0 No Unknown 6-20 00:00: 00 lisinopril 2-0 No 1mg 40 mg 6-20 tablet 00:00: 00 amlodipine 2-0 No 1mg 10 mg 6-20 tablet 00:00: 00 Dose 2-0 No Unknown 6-20 00:00: 00 Dose 2-0 No Unknown 6-20 00:00: 00 Dose 2-0 No Unknown 6-20 00:00: 00 Dose 2-0 No Unknown 6-20 00:00: 00 Dose 2-0 No Unknown 6-20 00:00: 00 APLIQUE A 0 No DIARIO [...] 00:00: AFECTADA 00 TODOS LOS D Levemir 0 No (3 mL) FlexTouch 5-25 U-100 00:00: Insulin 100 00 unit/mL (3 mL) subcutaneou s pen Levemir 0 No (3 mL) FlexTouch 5-25 U-100 00:00: Insulin 100 00 unit/mL (3 mL) subcutaneou s pen Levemir 2021-0 No (3 mL) FlexTouch 5-25 U-100 00:00: Insulin 100 00 unit/mL (3 mL) subcutaneou s pen Levemir 0 No (3 mL) FlexTouch 5-25 U-100 00:00: [...] unit/mL (3 mL) subcutaneou s pen levofloxaci 0 No 1mg n 500 mg 4-23 tablet [...] 2-0 No Unknown 2-02 00:00: 00 Dose 2021-0 [...] Dose 2020- No Unknown 2-08 00:00: 00 Levemir 2020- No (3 mL) [...] Dose 2020- No Unknown 2-08 00:00: 00 Levemir 2020- No (3 mL) [...] 300 mg 0-13 capsule 00:00: 00 clindamycin 1 No 1mg HCl 300 mg 0-13 capsule 00:00: 00 clindamycin 1 No 1mg HCl 300 mg 0-13 capsule 00:00: 00 clindamycin 1 No 1mg HCl 300 mg 0-13 capsule 00:00: 00 clindamycin 2021-1 No 1mg HCl 300 mg 0-13 capsule 00:00: 00 clindamycin 1 No 1mg HCl 300 mg 0-13 capsule 00:00: 00 clindamycin 1 No 1mg HCl 300 mg 0-13 capsule 00:00: 00 mupirocin 2 1 No 1% % topical 0-07 ointment 00:00: 00 clindamycin 1 No 1mg HCl 300 mg 0-07 capsule 00:00: 00 mupirocin 2 2020-1 No 1% % topical 0-07 ointment 00:00: 00 clindamycin 1 No 1mg HCl 300 mg 0-07 capsule 00:00: 00 mupirocin 2 1 No 1% % topical 0-07 ointment 00:00: 00 clindamycin 1 No 1mg HCl 300 mg 0-07 capsule 00:00: 00 mupirocin 2 1 No 1% % topical 0-07 ointment 00:00: 00 clindamycin 1 No 1mg HCl 300 mg 0-07 capsule 00:00: 00 mupirocin 2 1 No 1% % topical 0-07 ointment 00:00: 00 clindamycin 1 No 1mg HCl 300 mg 0-07 capsule 00:00: 00 mupirocin 2 2020-1 No 1% % topical 0-07 ointment 00:00: 00 clindamycin 1 No 1mg HCl 300 mg 0-07 capsule 00:00: 00 mupirocin 2 1 No 1% % topical 0-07 ointment 00:00: 00 clindamycin 1 No 1mg HCl 300 mg 0-07 capsule 00:00: 00 mupirocin 2 1 No 1% % topical 0-07 ointment 00:00: 00 clindamycin 1 No 1mg HCl 300 mg 0-07 capsule 00:00: 00 Levemir 1-0 No (3 mL) FlexTouch 9-20 U-100 00:00: Insulin 100 00 unit/mL (3 mL) subcutaneou s pen alendronate 2020-0 No 1mg 10 mg 9-20 tablet 00:00: [...] hr Janumet XR 2020-0 No 1mg 100 9-20 mg-1,000 mg 00:00: tablet,exte 00 nded release lovastatin 2020-0 No 1mg 20 mg 9-20 tablet 00:00: 00 Levemir 1-0 No (3 mL) FlexTouch 7-10 [...] aspirin 81 2021-0 No 1mg mg 5-25 tablet,teresas 00:00: yed release 00 amlodipine 2021-0 No [...] 10 mg 5-25 tablet 00:00: 00 lisinopril 1-0 No 1mg 40 mg 5-25 tablet 00:00: [...] unit/mL (3 mL) subcutaneou s pen Dose 2021-0 No Unknown 4-30 00:00: 00 Macrobid 2021-0 [...] 10 mg 2-09 tablet 00:00: 00 loratadine 2018- No 1mg 10 mg 2-09 tablet 00:00: 00 Januvia 50 2018- No 1mg mg tablet [...] 00:00: tablet,exte 00 nded release Januvia 50 2018-06 No 1mg mg tablet 0-15 00:00: 00 [...] 2019-0 No 1 Pads 8-20 00:00: 00 Jurgen 50 2019-0 No 1mg mg tablet 724 00:00: 00 Jurgen 50 2019-0 No 1mg mg tablet 7 00:00: 00 Jurgen 50 2019-0 No 1mg mg tablet 7 00:00: 00 Jurgen 50 2019-0 No 1mg mg tablet 7 00:00: 00 Jurgen 50 2019-0 No 1mg mg tablet 7 00:00: 00 Jurgen 50 2019-0 No 1mg [...] tablet,teressa 00:00: yed release 00 aspirin 81 2017- No 1mg mg 0-30 tablet,teressa 00:00: yed [...] tablet,teressa 00:00: yed release 00 aspirin 81 2017- No 1mg mg 0-30 tablet,teressa 00:00: yed release 00 alendronate 2017-1 No 1mg 10 mg 0-30 tablet 00:00: 00 metoprolol 2018-1 No 1mg tartrate 0-30 100 mg 00:00: tablet 00 lovastatin 2018-1 No 1mg 20 mg 0-30 tablet 00:00: 00 amlodipine 2018-1 No 1mg 10 mg 0-30 tablet 00:00: 00 pantoprazol 2017-1 No 1mg e 20 mg 0-30 tablet,teressa 00:00: yed release 00 aspirin 81 2017- No 1mg mg 0-30 tablet,teressa 00:00: yed [...] aspirin 81 2018-1 No 1mg mg 0-30 tablet,tersesa 00:00: yed release 00 alendronate 2018-1 No [...] to ity o f gel 00:00: affected [place] 00 area twice Medical daily Branch Diclofenac 2018-0 Yes Apply Univer s Sodium 1 % 7-31 1gram to ity o f gel 00:00: affected [place] 00 area twice Medical daily Branch aspirin [...] by ity of mg tablet 00:00: mouth. [place] [address] Medical Branch ciprofloxac 2018-0 Yes 500mg Take 500 U nivers in HCl 500 3-19 mg by ity of mg tablet 00:00: mouth. [place] [address] Medical Branch ciprofloxac 2018-0 Yes 500mg Take 500 U nivers in HCl 500 3-19 mg by ity of mg tablet 00:00: mouth. [place] [address] Medical Branch ciprofloxac 2018-0 Yes 500mg Take 500 U nivers in HCl 500 3-19 mg by ity of mg tablet 00:00: mouth. [place] [address] Medical Branch ciprofloxac 2018-0 Yes 500mg Take 500 U nivers in HCl 500 3-19 mg by ity of mg tablet 00:00: mouth. [place] [address] Medical Branch ciprofloxac 2018-0 Yes 500mg Take 500 U nivers in HCl 500 3-19 mg by ity of mg tablet 00:00: mouth. [place] [address] Medical Branch ciprofloxac 2018-0 No 1mg in [...] 3-04 by mouth. ity of tablet 00:00: [place] [address] Medical Branch nitrofurant 2018-0 Yes 100mg Take 100 U nivers oin 100 mg 3-04 mg by ity of capsule 00:00: mouth [place] daily. Medical Branch atorvastati 2018-0 Yes 40mg [...] of capsule 00:00: mouth daily. Medical Branch SARAH PEN 2017-0 Yes misc Univers NEEDLE 32 2-27 ity of gauge x 00:00: [place] " [place] 00 Medical Branch amLODIPine 2017-0 Yes 10mg Take 10 mg U nivers 10 mg 2-27 by mouth ity of tablet 00:00: daily. Medical Branch aspirin 81 2018-0 Yes 81mg Take 81 mg U nivers mg chewable 2-27 by mouth ity of tablet 00:00: daily. Medical Branch pantoprazol 2017-0 Yes 40mg Take 40 mg Univers e 40 mg EC 2-27 by mouth ity o f tablet 00:00: daily. Medical Branch naproxen 2018-0 Yes 500mg Take 500 Univ ers 500 [...] TABLETA ity o f iazide 00:00: TODOS [facility] 100-12.5 mg 00 D? Medical per tablet [...] 2-27 TABLETA ity o f iazide 00:00: TOS [facility] 100-12.5 mg 00 D? Medical per tablet [...] mouth 2 ity of tablet 00:00: (two) [place] 00 times Medical daily. Branch SARAH PEN Yes misc Univers NEEDLE 32 2-27 ity of gauge x 00:00: " [place] 00 Medical Branch amLODIPine Yes 10mg Take 10 mg U nivers 10 mg 2-27 by mouth ity of tablet 00:00: daily. Medical Branch aspirin 81 Yes 81mg Take 81 mg U nivers mg chewable 2-27 by mouth ity of tablet 00:00: daily. [place] [facility] pantoprazol Yes 40mg Take 40 mg Univers e 40 mg EC 2-27 by mouth ity o f tablet 00:00: daily. [place] [facility] naproxen Yes 500mg Take 500 [...] 00 times Medical daily. Branch aspirin 81 No 1mg mg 2-27 tablet,teressa 00:00: yed release metoprolol 2017-0 No 1mg tartrate 2-27 100 mg 00:00: tablet 00 naproxen 2017-0 No 1mg 500 mg 2-27 tablet 00:00: 00 glipizide 2017-0 No 1mg 10 mg 2-27 tablet 00:00: 00 amlodipine 2017-0 No 1mg 10 mg 2-27 tablet 00:00: 00 pantoprazol 2017-0 No 1mg e 40 mg 2-27 tablet,teressa 00:00: yed release 00 aspirin 81 No 1mg mg 2-27 tablet,teerssa 00:00: yed release metoprolol 0 No 1mg tartrate 2-27 100 mg 00:00: [...] tablet,teressa 00:00: yed release 00 VITAMIN D2 2018-0 Yes TAKE 1 Unive rs 50,000 unit 2-14 CAPSULE ity o f capsule 00:00: ONCE A [place] WEEK FOR Medical 13 WEEKS Branch VITAMIN D2 2018-0 Yes TAKE 1 Unive rs 50,000 unit 2-14 CAPSULE ity o f capsule 00:00: ONCE A [place] WEEK FOR Medical 13 WEEKS Branch VITAMIN D2 2018-0 Yes TAKE 1 Unive rs 50,000 unit 2-14 CAPSULE ity o f capsule 00:00: ONCE A [place] WEEK FOR Medical 13 WEEKS Branch VITAMIN D2 0 Yes TAKE 1 Unive rs 50,000 unit 2-14 CAPSULE ity o f capsule 00:00: ONCE A [place] WEEK FOR Medical 13 WEEKS Branch VITAMIN D2 0 Yes TAKE 1 Unive rs 50,000 unit 2-14 CAPSULE ity o f capsule 00:00: ONCE A [place] WEEK FOR Medical 13 WEEKS Branch VITAMIN D2 0 Yes TAKE 1 Unive rs 50,000 unit 2-14 CAPSULE ity o f capsule 00:00: ONCE A [place] WEEK FOR Medical 13 WEEKS Branch Vitamin [...] by mouth ity of tablet 00:00: daily. [address] alendronate 0 Yes 10mg Take 10 mg Univers 10 mg 2-13 by mouth ity of tablet 00:00: daily. [place] [facility] alendronate 0 Yes 10mg Take 10 mg Univers 10 mg 2-13 by mouth ity of tablet 00:00: daily. [place] [facility] alendronate 0 Yes 10mg Take 10 mg Univers 10 mg 2-13 by mouth ity of tablet 00:00: daily. [place] [facility] alendronate 0 Yes 10mg Take 10 mg Univers 10 mg 2-13 by mouth ity of tablet 00:00: daily. [address] alendronate 0 Yes 10mg Take 10 mg Univers 10 mg 2-13 by mouth ity of tablet 00:00: daily. [place] 00 Medical Branch alendronate 2018-0 No 1mg 10 mg 2-12 [...] mg 0-24 capsule 00:00: 00 aspirin 81 2016-1 No 1mg mg 0-24 tablet,teressa 00:00: yed [...] 20 mg 2-14 tablet 00:00: 00 lovastatin 2015-06 No 2mg 20 mg 2-14 tablet 00:00: 00 lovastatin 2015-06 No 2mg 20 mg 2-14 tablet 00:00: 00 lovastatin 2015-06 No 2mg 20 mg 2-14 tablet 00:00: 00 lovastatin 2015-06 No 2mg 20 mg 2-14 tablet 00:00: 00 lovastatin 2015-06 No 2mg 20 mg 2-14 tablet 00:00: 00 lovastatin 2015-06 No 2mg 20 mg 2-14 tablet 00:00: 00 lovastatin 2015-06 No 2mg 20 mg 2-14 tablet 00:00: 00 amlodipine 2015-06 No 1mg 5 [...] Procedure Date / Time Performed Performing Clinician [facility] e REFERRAL- 2022-12-27 05:01:00 Doctor Unassigned, No Univer [facility] REQUEST/RESPONSE Name [facility] Branch REFERRAL- 2022-08-24 05:01:00 [facility] [id number] 2022-04-27 00:00:00 [facility] [id number] 2022-04-27 00:00:00 [facility] [id number] 2022-04-27 00:00:00 [facility] XR ANKLE 3+ VW LEFT 2020-10-14 18:55:23 Leslie Martinez [facility] XR HIPS 3 VW LEFT 2020-10-14 18:55:12 Leslie Martinez [facility] XR KNEE 3 VW LEFT 2020-10-14 18:54:59 Leslie Martinez [facility] ASSIGNMENT OF BENEFITS 2020-10-14 18:28:36 Doctor Unassigned, No [facility] Name [facility] Ekg 2019-07-08 00:00:00 Plan of Care Planned Activity Planned Date Details Comments Source Goal Plan of Care Note [code = 52241-3] Goal Plan of Care Note [code = 31748-0] Goal Plan of Care Note [code = 42192-1] Goal Plan of Care Note [code = 20499-3] Goal Plan of Care Note [code = 91819-9] Goal Plan of Care Note [code = 54386-2] Goal Plan of Care Note [code = 02669-9] Goal Plan of Care Note [code = 77486-3] Goal Plan of Care Note [code = 48120-7] Goal Plan of Care Note [code = 66666-4] Goal Plan of Care Note [code = 11906-3] Goal Plan of Care Note [code = 01452-0] Goal Plan of Care Note [code = 28621-0] Goal Plan of Care Note [code = 39875-1] Goal Plan of Care Note [code = 52000-1] Goal Plan of Care Note [code = 56413-2] Goal Plan of Care Note [code = 73150-1] Goal Plan of Care Note [code = 04700-6] Goal Plan of Care Note [code = 73683-3] Goal Plan of Care Note [code = 71432-9] Goal Plan of Care Note [code = 24227-3] Goal Plan of Care Note [code = 83919-3] Goal Plan of Care Note [code = 63957-8] Goal Plan of Care Note [code = 96279-1] Goal Plan of Care Note [code = 35303-9] Goal Plan of Care Note [code = 36094-6] Goal Plan of Care Note [code = 61990-7] Goal Plan of Care Note [code = 16149-4] Goal Plan of Care Note [code = 05464-9] Goal Plan of Care Note [code = 01599-2] Goal Plan of Care Note [code = 60654-1] Goal Plan of Care Note [code = 01185-9] Goal Plan of Care Note [code = 41803-4] Goal Plan of Care Note [code = 98735-5] Goal Plan of Care Note [code = 91346-2] Goal Plan of Care Note [code = 19991-6] Goal Plan of Care Note [code = 30305-3] Goal Plan of Care Note [code = 53702-3] Goal Plan of Care Note [code = 94370-9] Goal Plan of Care Note [code = 34353-0] Goal Plan of Care Note [code = 45063-4] Goal Plan of Care Note [code = 07892-6] Goal Plan of Care Note [code = 96940-3] Goal Plan of Care Note [code = 40131-1] Goal Plan of Care Note [code = 43824-1] Goal Plan of Care Note [code = 35279-5] Goal Plan of Care Note [code = 69625-5] Goal Plan of Care Note [code = 33276-5] Goal Plan of Care Note [code = 92356-1] Goal Plan of Care Note [code = 23913-7] Goal Plan of Care Note [code = 91774-4] Goal Plan of Care Note [code = 25330-5] Goal Plan of Care Note [code = 30926-1] Goal Plan of Care Note [code = 21402-7] Goal Plan of Care Note [code = 39936-8] Goal Plan of Care Note [code = 29782-0] Goal Plan of Care Note [code = 55021-7] Goal Plan of Care Note [code = 23642-7] Goal Plan of Care Note [code = 41262-0] Goal Plan of Care Note [code = 65990-8] Goal Plan of Care Note [code = 81984-9] Goal Plan of Care Note [code = 47833-4] Goal Plan of Care Note [code = 26112-0] Goal Plan of Care Note [code = 87497-6] Goal Plan of Care Note [code = 21447-6] Goal Plan of Care Note [code = 66952-4] Goal Plan of Care Note [code = 17806-3] Goal Plan of Care Note [code = 01700-0] Goal Plan of Care Note [code = 61513-9] Goal Plan of Care Note [code = 84177-4] Goal Plan of Care Note [code = 42191-8] Goal Plan of Care Note [code = 41965-6] Goal Plan of Care Note [code = 98247-9] Goal Plan of Care Note [code = 08517-7] Goal Plan of Care Note [code = 67524-4] Goal Plan of Care Note [code = 79866-9] Goal Plan of Care Note [code = 87943-7] Goal Plan of Care Note [code = 75154-9] Goal Plan of Care Note [code = 60261-3] Goal Plan of Care Note [code = 06164-2] Goal Plan of Care Note [code = 30502-2] Goal Plan of Care Note [code = 01309-9] Goal Plan of Care Note [code = 97068-7] Goal Plan of Care Note [code = 74716-7] Goal Plan of Care Note [code = 09024-5] Goal Plan of Care Note [code = 70019-0] Goal Plan of Care Note [code = 49414-3] Goal Plan of Care Note [code = 84594-6] Goal Plan of Care Note [code = 80378-4] Goal Plan of Care Note [code = 99045-3] Goal Plan of Care Note [code = 61740-1] Goal Plan of Care Note [code = 87336-8] Goal Plan of Care Note [code = 01125-6] Goal Plan of Care Note [code = 97633-5] Goal Plan of Care Note [code = 24409-0] Goal Plan of Care Note [code = 80145-0] Goal Plan of Care Note [code = 63509-3] Goal Plan of Care Note [code = 57230-4] Goal Plan of Care Note [code = 82190-1] Goal Plan of Care Note [code = 93757-3] Goal Plan of Care Note [code = 34844-5] Goal Plan of Care Note [code = 45504-5] Goal Plan of Care Note [code = 38788-3] Goal Plan of Care Note [code = 56694-1] Goal Plan of Care Note [code = 61234-7] Goal Plan of Care Note [code = 36965-9] Goal Plan of Care Note [code = 18377-5] Goal Plan of Care Note [code = 31336-5] Goal Plan of Care Note [code = 81494-2] Goal Plan of Care Note [code = 06428-6] Goal Plan of Care Note [code = 99707-8] Goal Plan of Care Note [code = 44636-8] Goal Plan of Care Note [code = 83435-2] Goal Plan of Care Note [code = 59165-1] Goal Plan of Care Note [code = 27851-8] Goal Plan of Care Note [code = 98860-5] Goal Plan of Care Note [code = 16677-2] Goal Plan of Care Note [code = 18498-8] Goal Plan of Care Note [code = 18712-5] Goal Plan of Care Note [code = 63412-8] Goal Plan of Care Note [code = 46530-6] Goal Plan of Care Note [code = 75753-4] Goal Plan of Care Note [code = 28646-3] Goal Plan of Care Note [code = 61899-7] Goal Plan of Care Note [code = 40825-7] Goal Plan of Care Note [code = 72940-0] Goal Plan of Care Note [code = 90430-9] Goal Plan of Care Note [code = 93807-1] Goal Plan of Care Note [code = 98783-4] Goal Plan of Care Note [code = 98667-3] Goal Plan of Care Note [code = 20046-2] Goal Plan of Care Note [code = 65492-1] Goal Plan of Care Note [code = 42051-6] Goal Plan of Care Note [code = 96117-6] Goal Plan of Care Note [code = 55049-4] Goal Plan of Care Note [code = 39178-0] Goal Plan of Care Note [code = 10188-6] Goal Plan of Care Note [code = 94753-3] Goal Plan of Care Note [code = 21492-1] Goal Plan of Care Note [code = 58789-9] Goal Plan of Care Note [code = 77241-6] Goal Plan of Care Note [code = 76921-0] Goal Plan of Care Note [code = 91375-7] Goal Plan of Care Note [code = 84136-3] Goal Plan of Care Note [code = 86933-8] Goal Plan of Care Note [code = 32042-8] Goal Plan of Care Note [code = 55709-2] Goal Plan of Care Note [code = 43253-0] Goal Plan of Care Note [code = 46173-0] Goal Plan of Care Note [code = 84677-0] Goal Plan of Care Note [code = 62346-8] Goal Plan of Care Note [code = 46562-5] Goal Plan of Care Note [code = 06610-8] Goal Plan of Care Note [code = 36546-5] Goal Plan of Care Note [code = 52520-7] Goal Plan of Care Note [code = 53362-5] Goal Plan of Care Note [code = 29951-2] Goal Plan of Care Note [code = 60470-8] Goal Plan of Care Note [code = 08526-8] Goal Plan of Care Note [code = 24992-4] Goal Plan of Care Note [code = 44134-0] Goal Plan of Care Note [code = 67783-1] Goal Plan of Care Note [code = 34379-8] Goal Plan of Care Note [code = 01348-9] Goal Plan of Care Note [code = 17492-0] Goal Plan of Care Note [code = 37507-3] Goal Plan of Care Note [code = 03186-6] Goal Plan of Care Note [code = 92728-5] Goal Plan of Care Note [code = 27342-7] Goal Plan of Care Note [code = 55804-9] Goal Plan of Care Note [code = 33503-5] Goal Plan of Care Note [code = 36897-1] Goal Plan of Care Note [code = 76828-1] Goal Plan of Care Note [code = 92750-1] Goal Plan of Care Note [code = 62943-3] Goal Plan of Care Note [code = 84106-1] Goal Plan of Care Note [code = 35743-9] Goal Plan of Care Note [code = 92729-8] Goal Plan of Care Note [code = 13760-5] Goal Plan of Care Note [code = 58078-5] Goal Plan of Care Note [code = 09255-7] Goal Plan of Care Note [code = 09107-0] Goal Plan of Care Note [code = 88579-8] Goal Plan of Care Note [code = 58176-0] Goal Plan of Care Note [code = 21416-7] Goal Plan of Care Note [code = 63384-8] Goal Plan of Care Note [code = 89302-7] Goal Plan of Care Note [code = 81564-0] Goal Plan of Care Note [code = 30922-2] Goal Plan of Care Note [code = 41555-3] Goal Plan of Care Note [code = 61353-6] Goal Plan of Care Note [code = 90727-2] Goal Plan of Care Note [code = 74729-0] Goal Plan of Care Note [code = 97469-1] Goal Plan of Care Note [code = 72905-5] Goal Plan of Care Note [code = 66382-7] Goal Plan of Care Note [code = 87952-0] Goal Plan of Care Note [code = 21522-7] Goal Plan of Care Note [code = 50075-4] Goal Plan of Care Note [code = 21457-2] Goal Plan of Care Note [code = 18578-5] Goal Plan of Care Note [code = 42883-3] Goal Plan of Care Note [code = 62008-3] Goal Plan of Care Note [code = 63479-0] Goal Plan of Care Note [code = 82323-4] Goal Plan of Care Note [code = 94613-4] Goal Plan of Care Note [code = 79484-5] Goal Plan of Care Note [code = 24313-7] Goal Plan of Care Note [code = 11756-4] Goal Plan of Care Note [code = 37902-9] Goal Plan of Care Note [code = 29306-6] Goal Plan of Care Note [code = 96720-2] Goal Plan of Care Note [code = 74209-3] Goal Plan of Care Note [code = 23856-7] Goal Plan of Care Note [code = 05517-0] Goal Plan of Care Note [code = 39308-9] Goal Plan of Care Note [code = 08787-4] Goal Plan of Care Note [code = 11664-3] Goal Plan of Care Note [code = 15491-2] Goal Plan of Care Note [code = 00532-4] Goal Plan of Care Note [code = 52246-0] Goal Plan of Care Note [code = 59261-1] Goal Plan of Care Note [code = 66100-3] Goal Plan of Care Note [code = 00579-0] Goal Plan of Care Note [code = 82800-5] Goal Plan of Care Note [code = 75015-5] Goal Plan of Care Note [code = 44844-9] Goal Plan of Care Note [code = 56740-4] Goal Plan of Care Note [code = 38873-1] Goal Plan of Care Note [code = 32481-8] Goal Plan of Care Note [code = 06384-9] Goal Plan of Care Note [code = 27685-8] Goal Plan of Care Note [code = 70401-4] Goal Plan of Care Note [code = 54713-8] Goal Plan of Care Note [code = 23353-4] Goal Plan of Care Note [code = 69913-4] Goal Plan of Care Note [code = 08037-5] Goal Plan of Care Note [code = 73444-8] Goal Plan of Care Note [code = 03207-7] Goal Plan of Care Note [code = 87660-7] Goal Plan of Care Note [code = 32025-3] Goal Plan of Care Note [code = 48569-7] Goal Plan of Care Note [code = 81800-9] Goal Plan of Care Note [code = 97099-5] Goal Plan of Care Note [code = 40958-9] Goal Plan of Care Note [code = 48630-5] Goal Plan of Care Note [code = 30965-8] Goal Plan of Care Note [code = 00630-0] Goal Plan of Care Note [code = 93146-6] Goal Plan of Care Note [code = 53608-8] Goal Plan of Care Note [code = 71570-2] Goal Plan of Care Note [code = 94169-4] Goal Plan of Care Note [code = 67816-4] Goal Plan of Care Note [code = 22139-1] Goal Plan of Care Note [code = 20657-2] Goal Plan of Care Note [code = 98116-4] Goal Plan of Care Note [code = 48123-8] Goal Plan of Care Note [code = 58066-2] Goal Plan of Care Note [code = 64928-7] Goal Plan of Care Note [code = 18745-7] Goal Plan of Care Note [code = 96234-8] Goal Plan of Care Note [code = 48622-8] Goal Plan of Care Note [code = 80074-7] Goal Plan of Care Note [code = 96162-3] Goal Plan of Care Note [code = 06946-2] Goal Plan of Care Note [code = 37393-5] Goal Plan of Care Note [code = 05667-0] Goal Plan of Care Note [code = 98086-4] Goal Plan of Care Note [code = 76629-0] Goal Plan of Care Note [code = 11995-7] Goal Plan of Care Note [code = 82797-2] Goal Plan of Care Note [code = 54884-6] Goal Plan of Care Note [code = 68923-7] Goal Plan of Care Note [code = 57481-8] Goal Plan of Care Note [code = 17610-8] Goal Plan of Care Note [code = 58123-7] Goal Plan of Care Note [code = 49344-9] Goal Plan of Care Note [code = 46899-2] Goal Plan of Care Note [code = 06095-0] Goal Plan of Care Note [code = 29777-3] Goal Plan of Care Note [code = 30923-0] Goal Plan of Care Note [code = 00306-4] Goal Plan of Care Note [code = 43364-9] Goal Plan of Care Note [code = 82425-9] Goal Plan of Care Note [code = 04798-1] Goal Plan of Care Note [code = 46032-9] Goal Plan of Care Note [code = 13151-7] Goal Plan of Care Note [code = 48698-3] Goal Plan of Care Note [code = 32180-3] Goal Plan of Care Note [code = 07458-6] Goal Plan of Care Note [code = 37098-4] Goal Plan of Care Note [code = 24892-5] Goal Plan of Care Note [code = 68454-6] Goal Plan of Care Note [code = 33702-8] Goal Plan of Care Note [code = 59932-6] Goal Plan of Care Note [code = 35993-1] Goal Plan of Care Note [code = 46946-7] Goal Plan of Care Note [code = 15704-7] Goal Plan of Care Note [code = 26830-4] Goal Plan of Care Note [code = 32853-2] Goal Plan of Care Note [code = 52549-2] Goal Plan of Care Note [code = 52849-1] Goal Plan of Care Note [code = 17614-6] Goal Plan of Care Note [code = 70896-6] Goal Plan of Care Note [code = 73715-6] Goal Plan of Care Note [code = 78777-2] Goal Plan of Care Note [code = 72171-7] Goal Plan of Care Note [code = 36232-0] Goal Plan of Care Note [code = 69443-7] Goal Plan of Care Note [code = 60246-2] Goal Plan of Care Note [code = 16386-7] Goal Plan of Care Note [code = 64773-6] Goal Plan of Care Note [code = 68923-9] Goal Plan of Care Note [code = 80667-5] Goal Plan of Care Note [code = 07577-7] Goal Plan of Care Note [code = 92385-6] Goal Plan of Care Note [code = 40982-3] Goal Plan of Care Note [code = 88540-2] Goal Plan of Care Note [code = 39175-7] Encounters Start End Encounter Admission Attending Care Care Encounter Source Date/Time Date/Time Type Type Clinicians Facility Department ID 2022-12-27 2022-12-27 Leticia AG 1.2.840.114 [id number] [facility] 00:00:00 00:00:00 Only UnassignedRACHID 350.1.13.10 ity of [place] [facility] 4.2.7.2.686 Fredy as [id number] [address] 2022-12-21 2022-12-21 Outpatient SFA SFA 92710-6 023 Madhu 14:55:43 14:55:43 0720 [facility] 2022-12-15 2022-12-15 Outpatient SFA SFA 92417-4 023 Madhu 13:05:00 13:05:00 0714 [facility] 2022-08-24 2022-08-24 Orders Doctor ANCELMO 1.2.840.114 [id number] [facility] 00:00:00 00:00:00 Only Unassigned, RACHID 350.1.13.10 ity of [place] [facility] 4.2.7.2.686 Fredy as [id number] [address] 2022-08-23 2022-08-23 Outpatient SFA SFA 03810-6 023 Madhu 15:47:11 15:47:11 0322 [facility] 2022-08-03 2022-08-03 Outpatient SFA SFA 81796-9 023 Madhu 11:58:09 11:58:09 0302 [facility] 2022-07-26 2022-07-26 Outpatient SFA SFA 01475-0 023 Madhu 14:28:50 14:28:50 022 [facility] 2022-07-17 2022-07-17 Outpatient SFA SFA 00576-4 023 Madhu 15:25:27 15:25:27 0213 [facility] 2022-06-08 2022-06-08 Outpatient SFA SFA 07538-1 023 Madhu 10:19:11 10:19:11 0105 [facility] 2022-06-08 2022-06-08 Outpatient wup2cips- [id number] bc o6iobs-f 00:00:00 00:00:00 Visit s354-9k37 410-4a53-9 -7qj9-6x3 da6-4e5f2c z2cpuxo75 bddc28 2022-06-01 2022-06-01 Outpatient SFA SFA 80993-4 022 Madhu 10:42:48 10:42:48 1229 [facility] 2022-06-01 2022-06-01 Outpatient s22l93u1- [id number] f5 7u19p8-l 00:00:00 00:00:00 Visit a336-64kw 969-40ed-9 -9022-5aa 022-5aad19 y77y800w1 b466d8 2022-05-25 2022-05-25 Outpatient SFA SFA 28361-7 022 Madhu 13:44:52 13:44:52 1222 F Ludin 2022-05-25 2022-05-25 Outpatient 051k4i78- [id number] 0g3z87-p 00:00:00 00:00:00 Visit s565-6094 890-4564-b -bbde-d86 bde-h86995 03530s68s 87f52c 2022-05-10 2022-05-10 Outpatient SFA SFA 38105-6 022 Madhu 09:54:09 09:54:09 1207 F Ludin 2022-05-09 2022-05-09 Outpatient SFA SFA 14132-6 022 Madhu 09:38:21 09:38:21 1206 F Ludin 2022-05-09 2022-05-09 Outpatient f2nq63g4- [id number] c9 an61d6-r 00:00:00 00:00:00 Visit j343-941l 893-464a-a -t8e8-hm1 8m9-yg9m5s d2v0911j4 2158a2 2022-04-27 2022-04-29 Inpatient EM Da, [facility] [id number] [facility] 23:31:00 15:15:[address] [place] [address] 2022-03-08 2022-03-08 Outpatient SFA SFA 53023-6 022 Madhu 10:30:25 10:30:25 1005 F Ludin 2022-03-08 2022-03-08 Outpatient p204f428- [id number] c8 96m352-4 00:00:00 00:00:00 Visit 70u6-6oe0 9k7-4pa7-5 -14t7-r4c 5w6-y6d15g 42eob5c3p bf4e6c 2022-02-08 2022-02-08 Outpatient l418hqpv- [id number] [id number] 39cfed-c 00:00:00 00:00:00 Visit d69w-57e1 47d-41e8-a -d728-8o7 655-8f6357 4381ly09s 7ff23b 2022-01-04 2022-01-04 Outpatient 7nn5v782- [id number] 8d n9v288-4 00:00:00 00:00:00 Visit 6614-1984 388-4690-8 -0xg2-3re ed5-5ca68b 90u0856xi 6810ce 2021-12-06 2021-12-06 Outpatient [id number] 778151-j 00:00:00 00:00:00 Visit fec0-4c02 ec0-4c02-a -o104-406 538-264fda tnoz2cz10 e1ba61 2020-10-14 2020-10-14 [facility] 1.2.840.114 [id number] Univers 13:34:04 23:59:00 Encounter Leslie Simon 350.1.13.10 ity of [place] 4.2.7.2.686 [facility] [id number] [address] 2020-10-14 2020-10-14 [facility] 1.2.840.114 [id number] Univers 13:33:50 13:33:50 Encounter Leslie Simon 350.1.13.10 ity of [place] 4.2.7.2.686 [facility] [id number] [address] 2020-10-14 2020-10-14 [facility] 1.2.840.114 [id number] Univers 13:30:00 13:32:00 Encounter Leslie Simon 350.1.13.10 ity of [place] 4.2.7.2.686 [facility] [id number] [address] 2020-10-14 2020-10-14 Outpatient R [facility] [id number] Univers 00:00:00 00:00:00 LESLIE lozano of [facility] 2020-10-14 2020-10-14 Orders Doctor AG 1.2.840.114 [id number] Univers 00:00:00 00:00:00 Only Unassigned, RACHID 350.1.13.10 ity of [place] [facility] 4.2.7.2.686 Fredy as [id number] [place] [address] Branch Results Test Description Test Time Test Comments Results Result Comments Source COMPREHENSIVE METABOLIC PANEL 2022-07-27 04:54:53 Test Item Value Reference Range Interpretation Comme nts GLUCOSE (test code = 2216) 188 MG/DL 70-99 H BUN (test code = 2207) 35 MG/DL 8-23 H CREATININE (test code = 1.31 MG/DL 0.60-1.30 H 2213) eGFR (2020 CKD-EPI) (test 43 ML/MIN/1.73 >60 L code = 47125) CALC BUN/CREAT (test code = 27 RATIO 6-28 2234) SODIUM (test code = 223) 143 MEQ/L 133-146 POTASSIUM (test code = 222) 4.8 MEQ/L 3.5-5.4 CHLORIDE (test code = 2214) 107 MEQ/L 95-107 CARBON DIOXIDE (test code = 21 MEQ/L 19-31 2205) CALCIUM (test code = 2208) 10.0 MG/DL 8.5-10.5 PROTEIN, TOTAL (test code = 7.9 G/DL 6.1-8.3 2228) ALBUMIN (test code = 220) 4.6 G/DL 3.5-5.2 CALC GLOBULIN (test code = 3.3 G/DL 1.9-3.7 2239) CALC A/G RATIO (test code = 1.4 RATIO 1.0-2.6 2233) BILIRUBIN, TOTAL (test code 0.3 MG/DL See_Comment [Automated message] The = 2206) system which ge nerated this result transmit ellie reference range: <=1.2. T he reference range was not u sed to interpret this result as normal/abnormal . ALKALINE PHOSPHATASE (test 128 U/L 40-142 code = 2204) AST (test code = 2218) 23 U/L 9-40 ALT (test code = 2219) 25 U/L 5-40 HEMOGLOBIN [id number] 04:20:26 Test Item Value Reference Range Interpretation Comments HEMOGLOBIN A1c (test 7.6 % 4.2-5.6 H [employer]ETES code = 89876) ASSOCIATION IDELINES FOR HGB A1C: PREDIABETES/INC REASED [...] ALTERN ATE TESTING OR LABORATORY C ONSULTATION. ALBUMIN/CREATININE RATIO, URINE, [id number] 03:01:49 Test Item Value Reference Range Interpretation Comments CREATININE, URINE, 94.0 MG/DL NOT ESTAB CONC. (test code = 2072) ALBUMIN, URINE, 37.3 MG/DL NOT ESTAB RANDOM (test code = 35187) CALC 397 MG/G <30 H Note: Albumin/ Creatinine ALBUMIN/CREAT, RND ratio ref erence interval (test code = reflects ADA an d NKF 05176) guidelines. * [facility] has important patho logy staff changes effecti ve 08/02/2022. New pathology staff will provide uninter rupted, excellent patie nt care and clinical consultation. S ee URL: [email or web address]. UNLESS O THERWISE INDICATED, ALL TESTING [facility]FOR[facility] AT [facility] [address] [place] [address] DIRECTOR: KEN NEWMAN M.D. [place] NUMBER [id number] CAP ACCREDITATION N O. [id number] CBC W/AUTO DIFF WITH [id number] 08:51:31 Test Item Value Reference Range Interpretation Comments WBC (test code = 9.3 K/UL 3.5-11.0 1001) RBC (test code = 3.93 M/UL 3.80-5.40 1002) HEMOGLOBIN (test code 11.6 G/DL 11.5-15.5 = 1003) HEMATOCRIT (test code 35.3 % 34.0-45.0 = 1004) MCV (test code = 89.8 fL 80.0-99.0 1005) MCH (test code = 29.5 PG 25.0-33.0 1006) MCHC (test code = 32.9 G/DL 31.0-36.0 1007) RDW (test code = 13.4 % 11.5-15.0 1038) NEUTROPHILS (test 51.1 % code = 1008) LYMPHOCYTES (test 37.8 % code = 1010) MONOCYTES (test code 7.5 % = 1011) EOSINOPHILS (test 2.4 % code = 1012) BASOPHILS (test code 0.4 % = 1013) IMMATURE GRANULOCYTES 0.8 % (test code = 1036) NUCLEATED RBCS (test 0.0 /100 WBC'S See_Comment [Aut omated code = 1065) message] The sy stem which generated this result transmitted reference range : 0.0. The refere nce range was not u sed to interpret th is result as normal/abnormal . PLATELET COUNT (test 266 K/UL 130-400 code = 1015) ABSOLUTE NEUTROPHILS 4.77 K/UL 1.50-7.50 (test code = 1066) ABSOLUTE LYMPHOCYTES 3.53 K/UL 1.00-4.00 (test code = 1067) ABSOLUTE MONOCYTES 0.70 K/UL 0.20-1.00 (test code = 1068) ABSOLUTE EOSINOPHILS 0.22 K/UL 0.00-0.50 (test code = 1040) ABSOLUTE BASOPHILS 0.04 K/UL 0.00-0.20 (test code = 1069) ABS IMMATURE 0.07 K/UL 0.00-0.10 GRANULOCYTES (test code = 1020) ABS NUCLEATED RBCS 0.00 K/UL 0.00-0.11 (test code = 47302) PROTHROMBIN TIME (PT)2022-05-26 04:26:22 Test Item Value Reference Range Interpretation Comments PROTHROMBIN TIME 13.2 SECONDS 12.5-14.7 (PT) (test code = 1402) INR (test code = 1.0 SEE BELOW CURRENT 13184) RECOMMENDATIONS ARE FOR AN INR OF 2 .0-3.0 FOR ALL PATIENT S ON VITAMIN K ANTAG ONISTS, EXCEPT THOSE WI TH PROSTHETIC HEAR T VALVES, FOR WHO M INR OF 2.5-3.5 IS RECOMMENDED. UN LESS OTHERWISE INDIC ATED, ALL TESTING PER FORMED ATCLINICAL PATH OLOGY LABORATORIES, I [place]. [address] [facility] [place] [address] [facility] DIRECTOR: Janessa VILLAGRAN NUMBER [id number] [facility] ACCREDITATION N O. [id number] CBC W/AUTO [id number] 00:00:00 Test Item Value Reference Range Interpretation [...] NUCLEATED RBCS (test code = 0.00 K/UL 07434) CBC W/AUTO [id number] 00:00:00 Test Item Value Reference Range Interpretation [...] NUCLEATED RBCS (test code = 0.00 K/UL 35675) CBC W/AUTO [id number] 00:00:00 Test Item Value Reference Range Interpretation [...] NUCLEATED RBCS (test code = 0.00 K/UL 14327) PROTHROMBIN TIME (PT)2022-05-26 00:00:00 Test Item Value Reference Range Interpretation Comments PROTHROMBIN TIME (PT) (test code 13.2 SECONDS = 1402) INR (test code = 50103) 1.0 PROTHROMBIN TIME (PT)2022-05-26 00:00:00 Test Item Value Reference Range Interpretation Comments PROTHROMBIN TIME (PT) (test code 13.2 SECONDS = 1402) INR (test code = 26448) 1.0 CBC W/AUTO [id number] 00:00:00 Test Item Value Reference Range Interpretation [...] NUCLEATED RBCS (test code = 0.00 K/UL 99815) CBC W/AUTO [id number] 00:00:00 Test Item Value Reference Range Interpretation [...] NUCLEATED RBCS (test code = 0.00 K/UL 23315) CBC W/AUTO [id number] 00:00:00 Test Item Value Reference Range Interpretation [...] NUCLEATED RBCS (test code = 0.00 K/UL 64611) PROTHROMBIN TIME (PT)2022-05-26 00:00:00 Test Item Value Reference Range Interpretation Comments PROTHROMBIN TIME (PT) (test code 13.2 SECONDS = 1402) INR (test code = 80338) 1.0 PROTHROMBIN TIME (PT)2022-05-26 00:00:00 Test Item Value Reference Range Interpretation Comments PROTHROMBIN TIME (PT) (test code 13.2 SECONDS = 1402) INR (test code = 02514) 1.0 CBC W/AUTO [id number] 00:00:00 Test Item Value Reference Range Interpretation [...] NUCLEATED RBCS (test code = 0.00 K/UL 85711) CBC W/AUTO [id number] 00:00:00 Test Item Value Reference Range Interpretation [...] NUCLEATED RBCS (test code = 0.00 K/UL 17202) CBC W/AUTO [id number] 00:00:00 Test Item Value Reference Range Interpretation [...] NUCLEATED RBCS (test code = 0.00 K/UL 25060) PROTHROMBIN TIME (PT)2022-05-26 00:00:00 Test Item Value Reference Range Interpretation Comments PROTHROMBIN TIME (PT) (test code 13.2 SECONDS = 1402) INR (test code = 27422) 1.0 PROTHROMBIN TIME (PT)2022-05-26 00:00:00 Test Item Value Reference Range Interpretation Comments PROTHROMBIN TIME (PT) (test code 13.2 SECONDS = 1402) INR (test code = 51780) 1.0 CULTURE, [id number] 00:00:00 Test Item Value Reference Range Interpretation Comments CULTURE, URINE (test SPECIMEN NUMBER: code = 87136) [id number] CULTURE, [id number] 00:00:00 Test Item Value Reference Range Interpretation Comments CULTURE, URINE (test SPECIMEN NUMBER: code = 28411) [id number] CULTURE, [id number] 00:00:00 Test Item Value Reference Range Interpretation Comments CULTURE, URINE (test SPECIMEN NUMBER: code = 05789) [id number] CULTURE, [id number] 00:00:00 Test Item Value Reference Range Interpretation Comments CULTURE, URINE (test SPECIMEN NUMBER: code = 05071) [id number] CULTURE, [id number] 00:00:00 Test Item Value Reference Range Interpretation Comments CULTURE, URINE (test SPECIMEN NUMBER: code = 15681) [id number] CULTURE, [id number] 00:00:00 Test Item Value Reference Range Interpretation Comments CULTURE, URINE (test SPECIMEN NUMBER: code = 30092) [id number] 10:13:00 Test Item Value Reference Range Interpretation Comments GLUBED (test code = 250 mg/dL 74-106 H Performe d by certified 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 [facility] [id number] 16:11:00 Test Item Value Reference Range Interpretation Comments GLUBED (test code = 199 mg/dL 74-106 H Performe d by certified GLUBED) 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 [facility] [id number] 11:25:00 Test Item Value Reference Range Interpretation Comments GLUBED (test code = 137 mg/dL 74-106 H Performe d by certified GLUBED) 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 [facility] - XR CHEST 1 [id number] 07:47:00 [facility] : 1950 Sex: F FAX: Kari Groves MD [phone] [place]: St: ADM FAX: Sophie Torres Name: ARMEN LOPEZ [facility] : 1950 Age/S: 71/F [address] [facility] Unit #: [id number] Loc: V.[address] [address] Phys:Sophie Torres CARD LACER JACQUARD Acct: [id number] Dis Date: Status: ADM IN PHONE #: [phone] Exam Date:04/28/2022 0601 FAX #: [phone] Reason: TO EVAL LUNGS EXAMS: CPT CODE: [id number] XR CHEST 1 V 82013 EXAM: - XR CHEST 1 V DATE: [...] is unremarkable. Bones: No acute skeletal abnormality isidentified. There are degenerative changes of the thoracic spine. Upper abdomen: Within normal limits IMPRESSION: Lung base atelectasis at 0716 Reported and signed by: Tamir Gibbons M.D. 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 7 ESTIMATED AVERAGE 194 MG/DL GLUCOSE (test code = EAG) COMPREHENSIVE METABOLIC [id number] 05:20:00 Test Item Value Reference Range Interpretation [...] (test code = ALKP) change in reagent. [id number] 05:20:00 Test Item Value Reference Range Interpretation Comments PHOSPHORUS (test code = PHOS) 3.7 mg/dL 2.5-4.9 N [id number] 05:20:00 Test Item Value Reference Range Interpretation Comments MAGNESIUM (test code = MAG) 1.7 mg/dL 1.8-2.4 L CBC W/AUTO [id number] 05:10:00 Test Item Value Reference Range Interpretation [...] 0.00 K/mm3 0.0-0.1 N NRBC#) HEPATIC FUNCTION [id number] 23:51:00 Test Item Value Reference Range Interpretation [...] range due ALKP) to change in reagent. [id number] 23:51:00 Test Item Value Reference Range Interpretation Comments LIPASE (test code = LIP) 79 U/L 12.00-57.00 H [id number] 23:51:00 Test Item Value Reference Range Interpretation Comments MAGNESIUM (test code = MAG) 1.8 mg/dL 1.8-2.4 N [id number] 23:51:00 Test Item Value Reference Range Interpretation Comments TROPONIN-HS (test <4.0 pg/mL 0-45 N CAUTION: U nits of the code = TROPI) current test m ethodology (pg/mL)differ f rom the prior test meth odology (ng/mL) by a fa ctorof 1000. BASIC METABOLIC [id number] 23:51:00 Test Item Value Reference Range Interpretation [...] 9.0 mg/dL 8.5-10.1 N = CA) PROTHROMBIN [id number] 23:43:00 Test Item Value Reference Range Interpretation [...] (2.5-3.5) IS PATIENT ON ANTICOAGULANTS? NTHROMBOPLASTIN TIME [id number] 23:43:00 Test Item Value Reference Range Interpretation Comments THROMBOPLASTIN TIME PARTIAL 22.4 seconds 23.0-37.0 L (test code = PTT) IS PATIENT ON ANTICOAGULANTS? NCBC W/O [id number] 23:42:00 Test Item Value Reference Range Interpretation [...] N = MPV) - XR CHEST 1 [id number] 23:30:00 [facility])Name: ARMEN LOPEZ : 1950 Sex: F FAX: Usha Ramachandran MD [phone] [place]: B St: ADM Name: ARMEN LOPEZ [facility] : 1950 Age/S:71/F [address] Unit #: [id number] Loc: [place] [address] Phys: Usha Ramachandran MD Acct: [id number] Dis Date: Status: ADM IN PHONE #: [phone] Exam Date: 04/27/2022 2311 FAX #: [phone] Reason: CHEST PAIN EXAMS: CPT CODE: [id number] XR CHEST 1 V [id number] Dictation location: H3 Chest x-ray exam, AP frontal projection, one view, 04/27/22 CLINICAL HISTORY: Chest pain Comparison exam: None of the chest available Exam is somewhat limited given shallow degree of inspiration and overl miguel objects. Given technical factors, heart, lungs, and mediastinal structures are unremarkable. Donot see a definite acute osseous finding. No definite findings for pneumonia or CHF. No abnormal aircollection. IMPRESSION: No acute finding given technical factors at 2330 Reported and signed by: Maryam Rehman M.D. CC: Usha Ramachandran MD Technologist: Jordan Paiz RT(R) Trnscrd Date/Time/By: 04/27/2022 (233) : By: [email or web address] Orig Print D/T: S: 04/27/2022 (8462) PAGE 1 Signed ReportCOMPREHENSIVE METABOLIC [id number] 06:08:16 Test Item Value Reference Range Interpretation Comments GLUCOSE (test code = 205 MG/DL 70-99 H 2216) BUN (test code = 23 MG/DL 8-23 2207) CREATININE (test 1.67 MG/DL 0.60-1.30 H code = 2214) eGFR (2020 CKD-EPI) 32 ML/MIN/1.73 >60 L (test code = 29689) CALC BUN/CREAT (test 14 RATIO 6-28 code = 2235) SODIUM (test code = 143 MEQ/L [phone]) POTASSIUM (test code 4.2 MEQ/L 3.5-5.4 = 2227) CHLORIDE (test code 107 MEQ/L 95-107 = 221) CARBON DIOXIDE (test 22 MEQ/L 19-31 code [...] code = 21 U/L 5-40 2218) LIPID [id number] 06:08:16 Test Item Value Reference Range Interpretation [...] MOREINFORMATION , SEE CLIENT ANNOUNCE MENT AT [email or web address] RISK RATIO LDL/HDL 1.49 RATIO <3.22 UNLESS O THERWISE (test code = 2237) INDICATED , ALL TESTING PERFORMED [facility] [place]. [address] [place] [address] [facility] DIRECTOR: KEN NEWMAN M.D. CLIA NUMBER [id number] CAP ACCREDITATION N O. [id number] HEMOGLOBIN [id number] 04:41:39 Test Item Value Reference Range Interpretation Comments HEMOGLOBIN A1c (test 8.3 % 4.2-5.6 H AMERIC AN DIABETES code = 95458) ASSOCIATION IDELINES FOR HGB A1C: PREDIABETES/INC REASED [...] LABORATORY C ONSULTATION. CBC W/AUTO DIFF WITH [id number] 03:44:15 Test Item Value Reference Range Interpretation [...] RBCS 0.00 K/UL 0.00-0.11 (test code = 97085) LIPID [id number] 00:00:00 Test Item Value Reference Range Interpretation Comments CHOLESTEROL (test code = 2210) 160 MG/DL TRIGLYCERIDES (test code = 2232) 129 MG/DL HDL CHOLESTEROL (test code = 2220) 55 MG/DL CALC LDL CHOL (test code = 2237) 82 MG/DL RISK RATIO LDL/HDL (test code = 1.49 RATIO 2238) LIPID [id number] 00:00:00 Test Item Value Reference Range Interpretation Comments CHOLESTEROL (test code = 2210) 160 MG/DL TRIGLYCERIDES (test code = 2232) 129 MG/DL HDL CHOLESTEROL (test code = 2220) 55 MG/DL CALC LDL CHOL (test code = 2237) 82 MG/DL RISK RATIO LDL/HDL (test code = 1.49 RATIO 2238) HEMOGLOBIN [id number] 00:00:00 Test Item Value Reference Range Interpretation Comments HEMOGLOBIN A1c (test code = 38606) 8.3 % HEMOGLOBIN [id number] 00:00:00 Test Item Value Reference Range Interpretation Comments HEMOGLOBIN A1c (test code = 53855) 8.3 % HEMOGLOBIN [id number] 00:00:00 Test Item Value Reference Range Interpretation Comments HEMOGLOBIN A1c (test code = 22168) 8.3 % CBC W/AUTO [id number] 00:00:00 Test Item Value Reference Range Interpretation [...] NUCLEATED RBCS (test code = 0.00 K/UL 46769) CBC W/AUTO [id number] 00:00:00 Test Item Value Reference Range Interpretation [...] NUCLEATED RBCS (test code = 0.00 K/UL 02794) CBC W/AUTO [id number] 00:00:00 Test Item Value Reference Range Interpretation [...] NUCLEATED RBCS (test code = 0.00 K/UL 81869) COMPREHENSIVE METABOLIC [id number] 00:00:00 Test Item Value Reference Range Interpretation Comments GLUCOSE (test code = 2217) 205 MG/DL BUN (test code = 2208) 23 MG/DL CREATININE (test code = 2214) 1.67 MG/DL eGFR (2020 CKD-EPI) (test code 32 ML/MIN/1.73 = 75576) CALC BUN/CREAT (test code = 14 RATIO [...] code = 2219) 21 U/L COMPREHENSIVE METABOLIC [id number] 00:00:00 Test Item Value Reference Range Interpretation Comments GLUCOSE (test code = 2217) 205 MG/DL BUN (test code = 2208) 23 MG/DL CREATININE (test code = 2214) 1.67 MG/DL eGFR (2020 CKD-EPI) (test code 32 ML/MIN/1.73 = 31207) CALC BUN/CREAT (test code = 14 RATIO [...] (test code = 2219) 21 U/L LIPID [id number] 00:00:00 Test Item Value Reference Range Interpretation Comments CHOLESTEROL (test code = 2210) 160 MG/DL TRIGLYCERIDES (test code = 2232) 129 MG/DL HDL CHOLESTEROL (test code = 2220) 55 MG/DL CALC LDL CHOL (test code = 2237) 82 MG/DL RISK RATIO LDL/HDL (test code = 1.49 RATIO 2238) LIPID [id number] 00:00:00 Test Item Value Reference Range Interpretation Comments CHOLESTEROL (test code = 2210) 160 MG/DL TRIGLYCERIDES (test code = 2232) 129 MG/DL HDL CHOLESTEROL (test code = 2220) 55 MG/DL CALC LDL CHOL (test code = 2237) 82 MG/DL RISK RATIO LDL/HDL (test code = 1.49 RATIO 2238) HEMOGLOBIN [id number] 00:00:00 Test Item Value Reference Range Interpretation Comments HEMOGLOBIN A1c (test code = 26453) 8.3 % HEMOGLOBIN [id number] 00:00:00 Test Item Value Reference Range Interpretation Comments HEMOGLOBIN A1c (test code = 54220) 8.3 % HEMOGLOBIN [id number] 00:00:00 Test Item Value Reference Range Interpretation Comments HEMOGLOBIN A1c (test code = 14533) 8.3 % CBC W/AUTO [id number] 00:00:00 Test Item Value Reference Range Interpretation [...] NUCLEATED RBCS (test code = 0.00 K/UL 46401) CBC W/AUTO [id number] 00:00:00 Test Item Value Reference Range Interpretation [...] NUCLEATED RBCS (test code = 0.00 K/UL 56206) CBC W/AUTO [id number] 00:00:00 Test Item Value Reference Range Interpretation [...] NUCLEATED RBCS (test code = 0.00 K/UL 28195) COMPREHENSIVE METABOLIC [id number] 00:00:00 Test Item Value Reference Range Interpretation Comments GLUCOSE (test code = 2217) 205 MG/DL BUN (test code = 2208) 23 MG/DL CREATININE (test code = 2214) 1.67 MG/DL eGFR (2020 CKD-EPI) (test code 32 ML/MIN/1.73 = 29278) CALC BUN/CREAT (test code = 14 RATIO [...] code = 2219) 21 U/L COMPREHENSIVE METABOLIC [id number] 00:00:00 Test Item Value Reference Range Interpretation Comments GLUCOSE (test code = 2217) 205 MG/DL BUN (test code = 2208) 23 MG/DL CREATININE (test code = 2214) 1.67 MG/DL eGFR (2020 CKD-EPI) (test code 32 ML/MIN/1.73 = 67437) CALC BUN/CREAT (test code = 14 RATIO 2234) SODIUM (test code = 2231) 143 MEQ/L [...] (test code = 2219) 21 U/L LIPID [id number] 00:00:00 Test Item Value Reference Range Interpretation Comments CHOLESTEROL (test code = 2210) 160 MG/DL TRIGLYCERIDES (test code = 2232) 129 MG/DL HDL CHOLESTEROL (test code = 2220) 55 MG/DL CALC LDL CHOL (test code = 2237) 82 MG/DL RISK RATIO LDL/HDL (test code = 1.49 RATIO 2238) LIPID [id number] 00:00:00 Test Item Value Reference Range Interpretation Comments CHOLESTEROL (test code = 2210) 160 MG/DL TRIGLYCERIDES (test code = 2232) 129 MG/DL HDL CHOLESTEROL (test code = 2220) 55 MG/DL CALC LDL CHOL (test code = 2237) 82 MG/DL RISK RATIO LDL/HDL (test code = 1.49 RATIO 2238) HEMOGLOBIN [id number] 00:00:00 Test Item Value Reference Range Interpretation Comments HEMOGLOBIN A1c (test code = 54441) 8.3 % HEMOGLOBIN [id number] 00:00:00 Test Item Value Reference Range Interpretation Comments HEMOGLOBIN A1c (test code = 61667) 8.3 % HEMOGLOBIN [id number] 00:00:00 Test Item Value Reference Range Interpretation Comments HEMOGLOBIN A1c (test code = 80138) 8.3 % CBC W/AUTO [id number] 00:00:00 Test Item Value Reference Range Interpretation [...] NUCLEATED RBCS (test code = 0.00 K/UL 57607) CBC W/AUTO [id number] 00:00:00 Test Item Value Reference Range Interpretation [...] NUCLEATED RBCS (test code = 0.00 K/UL 86152) CBC W/AUTO [id number] 00:00:00 Test Item Value Reference Range Interpretation [...] NUCLEATED RBCS (test code = 0.00 K/UL 16560) COMPREHENSIVE METABOLIC [id number] 00:00:00 Test Item Value Reference Range Interpretation Comments GLUCOSE (test code = 2217) 205 MG/DL BUN (test code = 2208) 23 MG/DL CREATININE (test code = 2214) 1.67 MG/DL eGFR (2020 CKD-EPI) (test code 32 ML/MIN/1.73 = 67589) CALC BUN/CREAT (test code = 14 RATIO [...] code = 2219) 21 U/L COMPREHENSIVE METABOLIC [id number] 00:00:00 Test Item Value Reference Range Interpretation Comments GLUCOSE (test code = 2217) 205 MG/DL BUN (test code = 2208) 23 MG/DL CREATININE (test code = 2214) 1.67 MG/DL eGFR (2020 CKD-EPI) (test code 32 ML/MIN/1.73 = 19950) CALC BUN/CREAT (test code = 14 RATIO [...] (test code = 2219) 21 U/L LIPID [id number] 00:00:00 Test Item Value Reference Range Interpretation Comments CHOLESTEROL (test code = 2210) 160 MG/DL TRIGLYCERIDES (test code = 2232) 129 MG/DL HDL CHOLESTEROL (test code = 2220) 55 MG/DL CALC LDL CHOL (test code = 2237) 82 MG/DL RISK RATIO LDL/HDL (test code = 1.49 RATIO 2238) LIPID [id number] 00:00:00 Test Item Value Reference Range Interpretation Comments CHOLESTEROL (test code = 2210) 160 MG/DL TRIGLYCERIDES (test code = 2232) 129 MG/DL HDL CHOLESTEROL (test code = 2220) 55 MG/DL CALC LDL CHOL (test code = 2237) 82 MG/DL RISK RATIO LDL/HDL (test code = 1.49 RATIO 2238) HEMOGLOBIN [id number] 00:00:00 Test Item Value Reference Range Interpretation Comments HEMOGLOBIN A1c (test code = 85027) 8.3 % HEMOGLOBIN [id number] 00:00:00 Test Item Value Reference Range Interpretation Comments HEMOGLOBIN A1c (test code = 93463) 8.3 % HEMOGLOBIN [id number] 00:00:00 Test Item Value Reference Range Interpretation Comments HEMOGLOBIN A1c (test code = 54818) 8.3 % CBC W/AUTO [id number] 00:00:00 Test Item Value Reference Range Interpretation [...] NUCLEATED RBCS (test code = 0.00 K/UL 05954) CBC W/AUTO [id number] 00:00:00 Test Item Value Reference Range Interpretation [...] NUCLEATED RBCS (test code = 0.00 K/UL 89600) CBC W/AUTO [id number] 00:00:00 Test Item Value Reference Range Interpretation [...] NUCLEATED RBCS (test code = 0.00 K/UL 13080) COMPREHENSIVE METABOLIC [id number] 00:00:00 Test Item Value Reference Range Interpretation Comments GLUCOSE (test code = 2217) 205 MG/DL BUN (test code = 2208) 23 MG/DL CREATININE (test code = 2214) 1.67 MG/DL eGFR (2020 CKD-EPI) (test code 32 ML/MIN/1.73 = 07974) CALC BUN/CREAT (test code = 14 RATIO [...] code = 2219) 21 U/L COMPREHENSIVE METABOLIC [id number] 00:00:00 Test Item Value Reference Range Interpretation Comments GLUCOSE (test code = 2217) 205 MG/DL BUN (test code = 2208) 23 MG/DL CREATININE (test code = 2214) 1.67 MG/DL eGFR (2020 CKD-EPI) (test code 32 ML/MIN/1.73 = 27930) CALC BUN/CREAT (test code = 14 RATIO [...] (test code = 2219) 21 U/L LIPID [id number] 00:00:00 Test Item Value Reference Range Interpretation Comments CHOLESTEROL (test code = 2210) 160 MG/DL TRIGLYCERIDES (test code = 2232) 129 MG/DL HDL CHOLESTEROL (test code = 2220) 55 MG/DL CALC LDL CHOL (test code = 2237) 82 MG/DL RISK RATIO LDL/HDL (test code = 1.49 RATIO 2238) LIPID [id number] 00:00:00 Test Item Value Reference Range Interpretation Comments CHOLESTEROL (test code = 2210) 160 MG/DL TRIGLYCERIDES (test code = 2232) 129 MG/DL HDL CHOLESTEROL (test code = 2220) 55 MG/DL CALC LDL CHOL (test code = 2237) 82 MG/DL RISK RATIO LDL/HDL (test code = 1.49 RATIO 2238) HEMOGLOBIN [id number] 00:00:00 Test Item Value Reference Range Interpretation Comments HEMOGLOBIN A1c (test code = 79483) 8.3 % HEMOGLOBIN [id number] 00:00:00 Test Item Value Reference Range Interpretation Comments HEMOGLOBIN A1c (test code = 16503) 8.3 % HEMOGLOBIN [id number] 00:00:00 Test Item Value Reference Range Interpretation Comments HEMOGLOBIN A1c (test code = 35370) 8.3 % CBC W/AUTO [id number] 00:00:00 Test Item Value Reference Range Interpretation [...] NUCLEATED RBCS (test code = 0.00 K/UL 26459) CBC W/AUTO [id number] 00:00:00 Test Item Value Reference Range Interpretation [...] NUCLEATED RBCS (test code = 0.00 K/UL 43732) CBC W/AUTO [id number] 00:00:00 Test Item Value Reference Range Interpretation [...] NUCLEATED RBCS (test code = 0.00 K/UL 35400) COMPREHENSIVE METABOLIC [id number] 00:00:00 Test Item Value Reference Range Interpretation Comments GLUCOSE (test code = 2217) 205 MG/DL BUN (test code = 2208) 23 MG/DL CREATININE (test code = 2214) 1.67 MG/DL eGFR (2020 CKD-EPI) (test code 32 ML/MIN/1.73 = 45869) CALC BUN/CREAT (test code = 14 RATIO [...] code = 2219) 21 U/L COMPREHENSIVE METABOLIC [id number] 00:00:00 Test Item Value Reference Range Interpretation Comments GLUCOSE (test code = 2217) 205 MG/DL BUN (test code = 2208) 23 MG/DL CREATININE (test code = 2214) 1.67 MG/DL eGFR (2020 CKD-EPI) (test code 32 ML/MIN/1.73 = 67764) CALC BUN/CREAT (test code = 14 RATIO [...] (test code = 2219) 21 U/L LIPID [id number] 00:00:00 Test Item Value Reference Range Interpretation Comments CHOLESTEROL (test code = 2210) 160 MG/DL TRIGLYCERIDES (test code = 2232) 129 MG/DL HDL CHOLESTEROL (test code = 2220) 55 MG/DL CALC LDL CHOL (test code = 2237) 82 MG/DL RISK RATIO LDL/HDL (test code = 1.49 RATIO 2238) LIPID [id number] 00:00:00 Test Item Value Reference Range Interpretation Comments CHOLESTEROL (test code = 2210) 160 MG/DL TRIGLYCERIDES (test code = 2232) 129 MG/DL HDL CHOLESTEROL (test code = 2220) 55 MG/DL CALC LDL CHOL (test code = 2237) 82 MG/DL RISK RATIO LDL/HDL (test code = 1.49 RATIO 2238) HEMOGLOBIN [id number] 00:00:00 Test Item Value Reference Range Interpretation Comments HEMOGLOBIN A1c (test code = 04294) 8.3 % HEMOGLOBIN [id number] 00:00:00 Test Item Value Reference Range Interpretation Comments HEMOGLOBIN A1c (test code = 68596) 8.3 % HEMOGLOBIN [id number] 00:00:00 Test Item Value Reference Range Interpretation Comments HEMOGLOBIN A1c (test code = 45913) 8.3 % CBC W/AUTO [id number] 00:00:00 Test Item Value Reference Range Interpretation [...] NUCLEATED RBCS (test code = 0.00 K/UL 49864) CBC W/AUTO [id number] 00:00:00 Test Item Value Reference Range Interpretation [...] NUCLEATED RBCS (test code = 0.00 K/UL 20094) CBC W/AUTO [id number] 00:00:00 Test Item Value Reference Range Interpretation [...] NUCLEATED RBCS (test code = 0.00 K/UL 06762) COMPREHENSIVE METABOLIC [id number] 00:00:00 Test Item Value Reference Range Interpretation Comments GLUCOSE (test code = 2217) 205 MG/DL BUN (test code = 2208) 23 MG/DL CREATININE (test code = 2214) 1.67 MG/DL eGFR (2020 CKD-EPI) (test code 32 ML/MIN/1.73 = 59279) CALC BUN/CREAT (test code = 14 RATIO [...] code = 2219) 21 U/L COMPREHENSIVE METABOLIC [id number] 00:00:00 Test Item Value Reference Range Interpretation Comments GLUCOSE (test code = 2217) 205 MG/DL BUN (test code = 2208) 23 MG/DL CREATININE (test code = 2214) 1.67 MG/DL eGFR (2020 CKD-EPI) (test code 32 ML/MIN/1.73 = 26124) CALC BUN/CREAT (test code = 14 RATIO [...] (test code = 2219) 21 U/L CULTURE, [id number] 14:31:20SPECIMEN NUMBER: [id number] CULTURE, URINE SPECIMEN NUMBER: [id number] SPECIMEN COMMENT: URINE SOURCE: URINE REPORT STATUS: [...] INMCG/ML. UNLESS OTHERWISE INDICATED, ALL TESTING PERFORMED [facility] [address] [place] [address] KNIFE FINISHER: KEN NEWMAN M.D. CLIA NUMBER [id number] [facility] [place]. [id number], [id number] 00:00:00 Test Item Value Reference Range Interpretation Comments CULTURE, URINE (test SPECIMEN NUMBER: code = 79900) [id number] CULTURE, [id number] 00:00:00 Test Item Value Reference Range Interpretation Comments CULTURE, URINE (test SPECIMEN NUMBER: code = 60098) [id number] CULTURE, [id number] 00:00:00 Test Item Value Reference Range Interpretation Comments CULTURE, URINE (test SPECIMEN NUMBER: code = 45969) [id number] CULTURE, [id number] 00:00:00 Test Item Value Reference Range Interpretation Comments CULTURE, URINE (test SPECIMEN NUMBER: code = 02680) [id number] CULTURE, [id number] 00:00:00 Test Item Value Reference Range Interpretation Comments CULTURE, URINE (test SPECIMEN NUMBER: code = 92466) [id number] CULTURE, [id number] 00:00:00 Test Item Value Reference Range Interpretation Comments CULTURE, URINE (test SPECIMEN NUMBER: code = 05782) [id number] CULTURE, [id number] 00:00:00 Test Item Value Reference Range Interpretation Comments CULTURE, URINE (test SPECIMEN NUMBER: code = 72284) [id number] CULTURE, [id number] 00:00:00 Test Item Value Reference Range Interpretation Comments CULTURE, URINE (test SPECIMEN NUMBER: code = 35409) [id number] CULTURE, [id number] 00:00:00 Test Item Value Reference Range Interpretation Comments CULTURE, URINE (test SPECIMEN NUMBER: code = 43788) [id number] CULTURE, [id number] 00:00:00 Test Item Value Reference Range Interpretation Comments CULTURE, URINE (test SPECIMEN NUMBER: code = 63428) [id number] CULTURE, [id number] 00:00:00 Test Item Value Reference Range Interpretation Comments CULTURE, URINE (test SPECIMEN NUMBER: code = 84717) [id number] CULTURE, [id number] 00:00:00 Test Item Value Reference Range Interpretation Comments CULTURE, URINE (test SPECIMEN NUMBER: code = 12144) [id number] OCCULT BLD,FECAL,IMMUNOASSAY [id number] 16:34:09 Test Item Value Reference Range Interpretation Comments OCCULT BLD, FECAL NEGATIVE NEGATIVE Note: Danii moreira received (test code = 16802) in an ex pired collection system. Results and details of anal ysis reviewed by [facility] IRIS MASSEY M.D. UNLESS OTHERWISE INDIC ATED, ALL TESTING PERFORM ED ATCLINICAL PATH OLOGY LABORATORIES, [facility]. [address] [place] [address] LABORATORY DIRE CTOR: Rojelio VILLAGRAN. CLIA NUMBER [id number] CAP ACCREDITATION N O. [id number] OCCULT BLD,FECAL,IMMUNOASSAY [id number] 00:00:00 Test Item Value Reference Range Interpretation Comments OCCULT BLD, FECAL (test code = NEGATIVE 71862) OCCULT BLD,FECAL,IMMUNOASSAY [id number] 00:00:00 Test Item Value Reference Range Interpretation Comments OCCULT BLD, FECAL (test code = NEGATIVE 87215) OCCULT BLD,FECAL,IMMUNOASSAY [id number] 00:00:00 Test Item Value Reference Range Interpretation Comments OCCULT BLD, FECAL (test code = NEGATIVE 62317) OCCULT BLD,FECAL,IMMUNOASSAY [id number] 00:00:00 Test Item Value Reference Range Interpretation Comments OCCULT BLD, FECAL (test code = NEGATIVE 01570) OCCULT BLD,FECAL,IMMUNOASSAY [id number] 00:00:00 Test Item Value Reference Range Interpretation Comments OCCULT BLD, FECAL (test code = NEGATIVE 73674) OCCULT BLD,FECAL,IMMUNOASSAY [id number] 00:00:00 Test Item Value Reference Range Interpretation Comments OCCULT BLD, FECAL (test code = NEGATIVE 82963) OCCULT BLD,FECAL,IMMUNOASSAY [id number] 00:00:00 Test Item Value Reference Range Interpretation Comments OCCULT BLD, FECAL (test code = NEGATIVE 17977) OCCULT BLD,FECAL,IMMUNOASSAY [id number] 00:00:00 Test Item Value Reference Range Interpretation Comments OCCULT BLD, FECAL (test code = NEGATIVE 99695) OCCULT BLD,FECAL,IMMUNOASSAY [id number] 00:00:00 Test Item Value Reference Range Interpretation Comments OCCULT BLD, FECAL (test code = NEGATIVE 91363) OCCULT BLD,FECAL,IMMUNOASSAY [id number] 00:00:00 Test Item Value Reference Range Interpretation Comments OCCULT BLD, FECAL (test code = NEGATIVE 32506) OCCULT BLD,FECAL,IMMUNOASSAY [id number] 00:00:00 Test Item Value Reference Range Interpretation Comments OCCULT BLD, FECAL (test code = NEGATIVE 03082) OCCULT BLD,FECAL,IMMUNOASSAY [id number] 00:00:00 Test Item Value Reference Range Interpretation Comments OCCULT BLD, FECAL (test code = NEGATIVE 32425) OCCULT BLD,FECAL,IMMUNOASSAY [id number] 00:00:00 Test Item Value Reference Range Interpretation Comments OCCULT BLD, FECAL (test code = NEGATIVE 10889) HEMOGLOBIN [id number] 04:08:08 Test Item Value Reference Range Interpretation Comments HEMOGLOBIN A1c (test 8.3 % 4.2-5.6 H AMERIC AN DIABETES code = 41103) ASSOCIATION IDELINES FOR HGB A1C: PREDIABETES/INC REASED [...] INDICATED, ALL TESTING PER FORMED ATCLINICAL PATH [facility], [facility]. [address] [place] [address] LABORATORY DIRE CTOR: KEN NEWMAN M.D. CLIA NUMBER [id number] [facility] [place]. [id number] HEMOGLOBIN [id number] 00:00:00 Test Item Value Reference Range Interpretation Comments HEMOGLOBIN A1c (test code = 65249) 8.3 % HEMOGLOBIN [id number] 00:00:00 Test Item Value Reference Range Interpretation Comments HEMOGLOBIN A1c (test code = 05784) 8.3 % HEMOGLOBIN [id number] 00:00:00 Test Item Value Reference Range Interpretation Comments HEMOGLOBIN A1c (test code = 69997) 8.3 % HEMOGLOBIN [id number] 00:00:00 Test Item Value Reference Range Interpretation Comments HEMOGLOBIN A1c (test code = 10581) 8.3 % HEMOGLOBIN [id number] 00:00:00 Test Item Value Reference Range Interpretation Comments HEMOGLOBIN A1c (test code = 47459) 8.3 % HEMOGLOBIN [id number] 00:00:00 Test Item Value Reference Range Interpretation Comments HEMOGLOBIN A1c (test code = 65414) 8.3 % HEMOGLOBIN [id number] 00:00:00 Test Item Value Reference Range Interpretation Comments HEMOGLOBIN A1c (test code = 28743) 8.3 % HEMOGLOBIN [id number] 00:00:00 Test Item Value Reference Range Interpretation Comments HEMOGLOBIN A1c (test code = 98240) 8.3 % HEMOGLOBIN [id number] 00:00:00 Test Item Value Reference Range Interpretation Comments HEMOGLOBIN A1c (test code = 79139) 8.3 % HEMOGLOBIN [id number] 00:00:00 Test Item Value Reference Range Interpretation Comments HEMOGLOBIN A1c (test code = 12523) 8.3 % HEMOGLOBIN [id number] 00:00:00 Test Item Value Reference Range Interpretation Comments HEMOGLOBIN A1c (test code = 51603) 8.3 % HEMOGLOBIN [id number] 00:00:00 Test Item Value Reference Range Interpretation Comments HEMOGLOBIN A1c (test code = 75231) 8.3 % HEMOGLOBIN [id number] 00:00:00 Test Item Value Reference Range Interpretation Comments HEMOGLOBIN A1c (test code = 14873) 8.3 % HEMOGLOBIN [id number] 00:00:00 Test Item Value Reference Range Interpretation Comments HEMOGLOBIN A1c (test code = 76131) 8.3 % HEMOGLOBIN [id number] 00:00:00 Test Item Value Reference Range Interpretation Comments HEMOGLOBIN A1c (test code = 61456) 8.3 % HEMOGLOBIN [id number] 00:00:00 Test Item Value Reference Range Interpretation Comments HEMOGLOBIN A1c (test code = 94427) 8.3 % HEMOGLOBIN [id number] 00:00:00 Test Item Value Reference Range Interpretation Comments HEMOGLOBIN A1c (test code = 70123) 8.3 % HEMOGLOBIN [id number] 00:00:00 Test Item Value Reference Range Interpretation Comments HEMOGLOBIN A1c (test code = 43183) 8.3 % HEMOGLOBIN [id number] 00:00:00 Test Item Value Reference Range Interpretation Comments HEMOGLOBIN A1c (test code = 54424) 8.3 % HEMOGLOBIN [id number] 00:00:00 Test Item Value Reference Range Interpretation Comments HEMOGLOBIN A1c (test code = 18453) 8.3 % HEMOGLOBIN [id number] 00:00:00 Test Item Value Reference Range Interpretation Comments HEMOGLOBIN A1c (test code = 10026) 8.3 % HEMOGLOBIN [id number] 00:00:00 Test Item Value Reference Range Interpretation Comments HEMOGLOBIN A1c (test code = 11289) 8.3 % CULTURE, [id number] 12:05:43SPECIMEN NUMBER: [id number] CULTURE, URINE SPECIMEN NUMBER: [id number] SPECIMEN COMMENT: URINE SOURCE: URINE REPORT STATUS: FINAL ISOLATE NUMBER 1: ORGANISM: 09/23/2021 >100,000 CFU/ML GRAM NEGATIVE B ACILLI IDENTIFICATION: 09/24/2021 ESCHERICHIA COLI E. COLI AMOXICILLIN/CA SENSITIVE <=8/4AMPICILLIN RESISTANT >16CEFAZOLIN SENSITIVE <=2CEFTRIAXONE SENSITIVE <=1CIPROFLOXACIN SENSITIVE <=1LEVOFLOXACIN SENSITIVE <=2NITROFURANTOIN SENSITIVE <=32PIP/TAZOBAC SENSITIVE <=16TETRACYCLINE RESISTANT >8TOBRAMYCIN SENSITIVE <=4TRIMETH/SULFA RESISTANT > NOTE: NUMBERS DISPLAYED REPRESENT MINIMUM INHIBITORY CONCENTRATION (MARTA) WHICH IS EXPRESSED IN MCG/ML. CULTURE, [id number] 00:00:00 Test Item Value Reference Range Interpretation Comments CULTURE, URINE (test SPECIMEN NUMBER: code = 89518) [id number] CULTURE, [id number] 00:00:00 Test Item Value Reference Range Interpretation Comments CULTURE, URINE (test SPECIMEN NUMBER: code = 58220) [id number] CULTURE, [id number] 00:00:00 Test Item Value Reference Range Interpretation Comments CULTURE, URINE (test SPECIMEN NUMBER: code = 79018) [id number] CULTURE, [id number] 00:00:00 Test Item Value Reference Range Interpretation Comments CULTURE, URINE (test SPECIMEN NUMBER: code = 31651) [id number] CULTURE, [id number] 00:00:00 Test Item Value Reference Range Interpretation Comments CULTURE, URINE (test SPECIMEN NUMBER: code = 96565) [id number] CULTURE, [id number] 00:00:00 Test Item Value Reference Range Interpretation Comments CULTURE, URINE (test SPECIMEN NUMBER: code = 17155) [id number] CULTURE, [id number] 00:00:00 Test Item Value Reference Range Interpretation Comments CULTURE, URINE (test SPECIMEN NUMBER: code = 36830) [id number] CULTURE, [id number] 00:00:00 Test Item Value Reference Range Interpretation Comments CULTURE, URINE (test SPECIMEN NUMBER: code = 12777) [id number] CULTURE, [id number] 00:00:00 Test Item Value Reference Range Interpretation Comments CULTURE, URINE (test SPECIMEN NUMBER: code = 79200) [id number] CULTURE, [id number] 00:00:00 Test Item Value Reference Range Interpretation Comments CULTURE, URINE (test SPECIMEN NUMBER: code = 64495) [id number] CULTURE, [id number] 00:00:00 Test Item Value Reference Range Interpretation Comments CULTURE, URINE (test SPECIMEN NUMBER: code = 00549) [id number] CULTURE, [id number] 00:00:00 Test Item Value Reference Range Interpretation Comments CULTURE, URINE (test SPECIMEN NUMBER: code = 33606) [id number] CULTURE, [id number] 00:00:00 Test Item Value Reference Range Interpretation Comments CULTURE, URINE (test SPECIMEN NUMBER: code = 53853) [id number] CULTURE, [id number] 00:00:00 Test Item Value Reference Range Interpretation Comments CULTURE, URINE (test SPECIMEN NUMBER: code = 16672) [id number] TSH, THIRD [id number] 03:43:01 Test Item Value Reference Range Interpretation Comments TSH, THIRD 2.470 UIU/ML 0.400-4.100 UNLESS OTHERWI SE GENERATION (test INDICATED, ALL TESTING code = 2821) PERFORMED [facility], [address] DIRECTOR: KEN NEWMAN M.D. CLIA NUMBER [id number] CAP ACCREDITATION N O. [id number] CBC W/AUTO DIFF WITH [id number] 03:14:58 Test Item Value Reference Range Interpretation [...] RBCS 0.00 K/UL 0.00-0.11 (test code = 03873) COMPREHENSIVE METABOLIC [id number] 02:59:52 Test Item Value Reference Range Interpretation Comments GLUCOSE (test code = 188 MG/DL 70-99 H 2216) BUN (test code = 40 MG/DL 8-23 H 2207) CREATININE (test 1.36 MG/DL 0.60-1.30 H code = 2214) eGFR (2020 CKD-EPI) 41 ML/MIN/1.73 >60 L (test code = 17438) CALC BUN/CREAT (test 29 RATIO 6-28 H code = 2235) SODIUM (test code = 145 MEQ/L 941-665 8458) POTASSIUM (test code 5.2 MEQ/L 3.5-5.4 = 2228) CHLORIDE (test code 109 MEQ/L 95-107 H = 2215) CARBON DIOXIDE (test 21 MEQ/L 19-31 code [...] = 14 U/L 5-40 2218) COMPREHENSIVE METABOLIC [id number] 00:00:00 Test Item Value Reference Range Interpretation Comments GLUCOSE (test code = 2217) 188 MG/DL BUN (test code = 2208) 40 MG/DL CREATININE (test code = 2214) 1.36 MG/DL eGFR (2020 CKD-EPI) (test code 41 ML/MIN/1.73 = 41561) CALC BUN/CREAT (test code = 29 RATIO [...] ALT (test code = 2219) 14 U/L [id number] 00:00:00 Test Item Value Reference Range Interpretation Comments TSH, THIRD GENERATION (test code 2.470 UIU/ML = 2821) [id number] 00:00:00 Test Item Value Reference Range Interpretation Comments TSH, THIRD GENERATION (test code 2.470 UIU/ML = 2821) [id number] 00:00:00 Test Item Value Reference Range Interpretation Comments TSH, THIRD GENERATION (test code 2.470 UIU/ML = 2821) CBC W/AUTO [id number] 00:00:00 Test Item Value Reference Range Interpretation [...] NUCLEATED RBCS (test code = 0.00 K/UL 26240) CBC W/AUTO [id number] 00:00:00 Test Item Value Reference Range Interpretation [...] NUCLEATED RBCS (test code = 0.00 K/UL 04418) CBC W/AUTO [id number] 00:00:00 Test Item Value Reference Range Interpretation [...] NUCLEATED RBCS (test code = 0.00 K/UL 42322) COMPREHENSIVE METABOLIC [id number] 00:00:00 Test Item Value Reference Range Interpretation Comments GLUCOSE (test code = 2217) 188 MG/DL BUN (test code = 2208) 40 MG/DL CREATININE (test code = 2214) 1.36 MG/DL eGFR (2020 CKD-EPI) (test code 41 ML/MIN/1.73 = 54362) CALC BUN/CREAT (test code = 29 RATIO [...] code = 2219) 14 U/L COMPREHENSIVE METABOLIC [id number] 00:00:00 Test Item Value Reference Range Interpretation Comments GLUCOSE (test code = 2217) 188 MG/DL BUN (test code = 2208) 40 MG/DL CREATININE (test code = 2214) 1.36 MG/DL eGFR (2020 CKD-EPI) (test code 41 ML/MIN/1.73 = 26321) CALC BUN/CREAT (test code = 29 RATIO [...] ALT (test code = 2219) 14 U/L [id number] 00:00:00 Test Item Value Reference Range Interpretation Comments TSH, THIRD GENERATION (test code 2.470 UIU/ML = 2821) [id number] 00:00:00 Test Item Value Reference Range Interpretation Comments TSH, THIRD GENERATION (test code 2.470 UIU/ML = 2821) [id number] 00:00:00 Test Item Value Reference Range Interpretation Comments TSH, THIRD GENERATION (test code 2.470 UIU/ML = 2821) CBC W/AUTO [id number] 00:00:00 Test Item Value Reference Range Interpretation [...] NUCLEATED RBCS (test code = 0.00 K/UL 42365) CBC W/AUTO [id number] 00:00:00 Test Item Value Reference Range Interpretation [...] NUCLEATED RBCS (test code = 0.00 K/UL 89704) CBC W/AUTO [id number] 00:00:00 Test Item Value Reference Range Interpretation [...] NUCLEATED RBCS (test code = 0.00 K/UL 34815) COMPREHENSIVE METABOLIC [id number] 00:00:00 Test Item Value Reference Range Interpretation Comments GLUCOSE (test code = 2217) 188 MG/DL BUN (test code = 2208) 40 MG/DL CREATININE (test code = 2214) 1.36 MG/DL eGFR (2020 CKD-EPI) (test code 41 ML/MIN/1.73 = 58382) CALC BUN/CREAT (test code = 29 RATIO [...] code = 2219) 14 U/L COMPREHENSIVE METABOLIC [id number] 00:00:00 Test Item Value Reference Range Interpretation Comments GLUCOSE (test code = 2217) 188 MG/DL BUN (test code = 2208) 40 MG/DL CREATININE (test code = 2214) 1.36 MG/DL eGFR (2020 CKD-EPI) (test code 41 ML/MIN/1.73 = 71022) CALC BUN/CREAT (test code = 29 RATIO [...] ALT (test code = 2219) 14 U/L [id number] 00:00:00 Test Item Value Reference Range Interpretation Comments TSH, THIRD GENERATION (test code 2.470 UIU/ML = 2821) [id number] 00:00:00 Test Item Value Reference Range Interpretation Comments TSH, THIRD GENERATION (test code 2.470 UIU/ML = 2821) [id number] 00:00:00 Test Item Value Reference Range Interpretation Comments TSH, THIRD GENERATION (test code 2.470 UIU/ML = 2821) CBC W/AUTO [id number] 00:00:00 Test Item Value Reference Range Interpretation [...] NUCLEATED RBCS (test code = 0.00 K/UL 27888) CBC W/AUTO [id number] 00:00:00 Test Item Value Reference Range Interpretation [...] NUCLEATED RBCS (test code = 0.00 K/UL 57470) COMPREHENSIVE METABOLIC [id number] 00:00:00 Test Item Value Reference Range Interpretation Comments GLUCOSE (test code = 2217) 188 MG/DL BUN (test code = 2208) 40 MG/DL CREATININE (test code = 2214) 1.36 MG/DL eGFR (2020 CKD-EPI) (test code 41 ML/MIN/1.73 = 75202) CALC BUN/CREAT (test code = 29 RATIO [...] ALT (test code = 2219) 14 U/L [id number] 00:00:00 Test Item Value Reference Range Interpretation Comments TSH, THIRD GENERATION (test code 2.470 UIU/ML = 2821) CBC W/AUTO [id number] 00:00:00 Test Item Value Reference Range Interpretation [...] NUCLEATED RBCS (test code = 0.00 K/UL 36487) CBC W/AUTO [id number] 00:00:00 Test Item Value Reference Range Interpretation [...] NUCLEATED RBCS (test code = 0.00 K/UL 43274) CBC W/AUTO [id number] 00:00:00 Test Item Value Reference Range Interpretation [...] NUCLEATED RBCS (test code = 0.00 K/UL 43661) COMPREHENSIVE METABOLIC [id number] 00:00:00 Test Item Value Reference Range Interpretation Comments GLUCOSE (test code = 2217) 188 MG/DL BUN (test code = 2208) 40 MG/DL CREATININE (test code = 2214) 1.36 MG/DL eGFR (2020 CKD-EPI) (test code 41 ML/MIN/1.73 = 89583) CALC BUN/CREAT (test code = 29 RATIO [...] code = 2219) 14 U/L COMPREHENSIVE METABOLIC [id number] 00:00:00 Test Item Value Reference Range Interpretation Comments GLUCOSE (test code = 2217) 188 MG/DL BUN (test code = 2208) 40 MG/DL CREATININE (test code = 2214) 1.36 MG/DL eGFR (2020 CKD-EPI) (test code 41 ML/MIN/1.73 = 22152) CALC BUN/CREAT (test code = 29 RATIO [...] ALT (test code = 2219) 14 U/L [id number] 00:00:00 Test Item Value Reference Range Interpretation Comments TSH, THIRD GENERATION (test code 2.470 UIU/ML = 2821) [id number] 00:00:00 Test Item Value Reference Range Interpretation Comments TSH, THIRD GENERATION (test code 2.470 UIU/ML = 2821) [id number] 00:00:00 Test Item Value Reference Range Interpretation Comments TSH, THIRD GENERATION (test code 2.470 UIU/ML = 2821) [id number] 00:00:00 Test Item Value Reference Range Interpretation Comments TSH, THIRD GENERATION (test code 2.470 UIU/ML = 2821) CBC W/AUTO [id number] 00:00:00 Test Item Value Reference Range Interpretation [...] NUCLEATED RBCS (test code = 0.00 K/UL 16818) CBC W/AUTO [id number] 00:00:00 Test Item Value Reference Range Interpretation [...] NUCLEATED RBCS (test code = 0.00 K/UL 24423) CBC W/AUTO [id number] 00:00:00 Test Item Value Reference Range Interpretation [...] NUCLEATED RBCS (test code = 0.00 K/UL 24079) COMPREHENSIVE METABOLIC [id number] 00:00:00 Test Item Value Reference Range Interpretation Comments GLUCOSE (test code = 2217) 188 MG/DL BUN (test code = 2208) 40 MG/DL CREATININE (test code = 2214) 1.36 MG/DL eGFR (2020 CKD-EPI) (test code 41 ML/MIN/1.73 = 41726) CALC BUN/CREAT (test code = 29 RATIO [...] code = 2219) 14 U/L COMPREHENSIVE METABOLIC [id number] 00:00:00 Test Item Value Reference Range Interpretation Comments GLUCOSE (test code = 2217) 188 MG/DL BUN (test code = 2208) 40 MG/DL CREATININE (test code = 2214) 1.36 MG/DL eGFR (2021 CKD-EPI) (test code 41 ML/MIN/1.73 = 03974) CALC BUN/CREAT (test code = 29 RATIO [...] ALT (test code = 2219) 14 U/L [id number] 00:00:00 Test Item Value Reference Range Interpretation Comments TSH, THIRD GENERATION (test code 2.470 UIU/ML = 2821) [id number] 00:00:00 Test Item Value Reference Range Interpretation Comments TSH, THIRD GENERATION (test code 2.470 UIU/ML = 2821) [id number] 00:00:00 Test Item Value Reference Range Interpretation Comments TSH, THIRD GENERATION (test code 2.470 UIU/ML = 2821) CBC W/AUTO [id number] 00:00:00 Test Item Value Reference Range Interpretation [...] NUCLEATED RBCS (test code = 0.00 K/UL 79216) CBC W/AUTO [id number] 00:00:00 Test Item Value Reference Range Interpretation [...] NUCLEATED RBCS (test code = 0.00 K/UL 16834) COMPREHENSIVE METABOLIC [id number] 00:00:00 Test Item Value Reference Range Interpretation Comments GLUCOSE (test code = 2217) 188 MG/DL BUN (test code = 2208) 40 MG/DL CREATININE (test code = 2214) 1.36 MG/DL eGFR (2020 CKD-EPI) (test code 41 ML/MIN/1.73 = 06261) CALC BUN/CREAT (test code = 29 RATIO [...] ALT (test code = 2219) 14 U/L [id number] 00:00:00 Test Item Value Reference Range Interpretation Comments TSH, THIRD GENERATION (test code 2.470 UIU/ML = 2821) [id number] 00:00:00 Test Item Value Reference Range Interpretation Comments TSH, THIRD GENERATION (test code 2.470 UIU/ML = 2821) CBC W/AUTO [id number] 00:00:00 Test Item Value Reference Range Interpretation [...] NUCLEATED RBCS (test code = 0.00 K/UL 77838) CBC W/AUTO [id number] 00:00:00 Test Item Value Reference Range Interpretation [...] NUCLEATED RBCS (test code = 0.00 K/UL 67210) CBC W/AUTO [id number] 00:00:00 Test Item Value Reference Range Interpretation [...] NUCLEATED RBCS (test code = 0.00 K/UL 50008) COMPREHENSIVE METABOLIC [id number] 00:00:00 Test Item Value Reference Range Interpretation Comments GLUCOSE (test code = 2217) 188 MG/DL BUN (test code = 2208) 40 MG/DL CREATININE (test code = 2214) 1.36 MG/DL eGFR (2020 CKD-EPI) (test code 41 ML/MIN/1.73 = 28583) CALC BUN/CREAT (test code = 29 RATIO [...] code = 2219) 14 U/L COMPREHENSIVE METABOLIC [id number] 00:00:00 Test Item Value Reference Range Interpretation Comments GLUCOSE (test code = 2217) 188 MG/DL BUN (test code = 2208) 40 MG/DL CREATININE (test code = 2214) 1.36 MG/DL eGFR (2020 CKD-EPI) (test code 41 ML/MIN/1.73 = 91328) CALC BUN/CREAT (test code = 29 RATIO [...] ALT (test code = 2219) 14 U/L [id number] 00:00:00 Test Item Value Reference Range Interpretation Comments TSH, THIRD GENERATION (test code 2.470 UIU/ML = 2821) [id number] 00:00:00 Test Item Value Reference Range Interpretation Comments TSH, THIRD GENERATION (test code 2.470 UIU/ML = 2821) [id number] 00:00:00 Test Item Value Reference Range Interpretation Comments TSH, THIRD GENERATION (test code 2.470 UIU/ML = 2821) CBC W/AUTO [id number] 00:00:00 Test Item Value Reference Range Interpretation [...] NUCLEATED RBCS (test code = 0.00 K/UL 49776) CBC W/AUTO [id number] 00:00:00 Test Item Value Reference Range Interpretation [...] NUCLEATED RBCS (test code = 0.00 K/UL 67835) CBC W/AUTO [id number] 00:00:00 Test Item Value Reference Range Interpretation [...] NUCLEATED RBCS (test code = 0.00 K/UL 11315) COMPREHENSIVE METABOLIC [id number] 00:00:00 Test Item Value Reference Range Interpretation Comments GLUCOSE (test code = 2217) 188 MG/DL BUN (test code = 2208) 40 MG/DL CREATININE (test code = 2214) 1.36 MG/DL eGFR (2020 CKD-EPI) (test code 41 ML/MIN/1.73 = 52879) CALC BUN/CREAT (test code = 29 RATIO [...] ALT (test code = 2219) 14 U/L CBC W/AUTO DIFF WITH [id number] 04:35:16 Test Item Value Reference Range Interpretation [...] RBCS 0.00 K/UL 0.00-0.11 (test code = 43221) HEMOGLOBIN [id number] 04:23:29 Test Item Value Reference Range Interpretation Comments HEMOGLOBIN A1c (test 8.8 % 4.2-5.6 H [employer] code = 12210) ASSOCIATION [employer] FOR HGB A1C: PREDIABETES/INC REASED [...] TESTING OR LABORATORY C ONSULTATION. COMPREHENSIVE METABOLIC [id number] 03:52:38 Test Item Value Reference Range Interpretation Comments GLUCOSE (test code = 166 MG/DL 70-99 H 2216) BUN (test code = 30 MG/DL 8-23 H 2207) CREATININE (test 1.31 MG/DL 0.60-1.30 H code = 2213) eGFR (2020 CKD-EPI) 43 >60 L (test code = 91832) ML/MIN/1.73 CALC BUN/CREAT (test 23 RATIO 6-28 code = 2235) SODIUM (test code = 140 MEQ/L 251-305 9792) POTASSIUM (test code 5.5 MEQ/L 3.5-5.4 H = 2227) CHLORIDE (test code 104 MEQ/L 95-107 = 2214) CARBON DIOXIDE (test 22 MEQ/L 19-31 code = 220) CALCIUM (test code = 10.0 MG/DL 8.5-10.5 2208) PROTEIN, TOTAL (test 7.8 G/DL 6.1-8.3 code = 2228) ALBUMIN (test code = 4.5 G/DL 3.5-5.2 2200) CALC GLOBULIN (test 3.3 G/DL 1.9-3.7 code = 2239) CALC A/G RATIO (test 1.4 RATIO 1.0-2.6 [...] TESTING [facility] [place] [address] [place] [id number] [place] [address] DIRECTOR: Janessa VILLAGRANIA NUMBER [id number] CAP ACCREDITATION N O. [id number] HEMOGLOBIN [id number] 00:00:00 Test Item Value Reference Range Interpretation Comments HEMOGLOBIN A1c (test code = 97744) 8.8 % HEMOGLOBIN [id number] 00:00:00 Test Item Value Reference Range Interpretation Comments HEMOGLOBIN A1c (test code = 03263) 8.8 % HEMOGLOBIN [id number] 00:00:00 Test Item Value Reference Range Interpretation Comments HEMOGLOBIN A1c (test code = 97046) 8.8 % CBC W/AUTO [id number] 00:00:00 Test Item Value Reference Range Interpretation [...] NUCLEATED RBCS (test code = 0.00 K/UL 12646) CBC W/AUTO [id number] 00:00:00 Test Item Value Reference Range Interpretation [...] NUCLEATED RBCS (test code = 0.00 K/UL 28903) CBC W/AUTO [id number] 00:00:00 Test Item Value Reference Range Interpretation [...] NUCLEATED RBCS (test code = 0.00 K/UL 84421) COMPREHENSIVE METABOLIC [id number] 00:00:00 Test Item Value Reference Range Interpretation Comments GLUCOSE (test code = 2217) 166 MG/DL BUN (test code = 2208) 30 MG/DL CREATININE (test code = 2214) 1.31 MG/DL eGFR (2020 CKD-EPI) (test code 43 ML/MIN/1.73 = 17875) CALC BUN/CREAT (test code = 23 RATIO [...] code = 2219) 13 U/L COMPREHENSIVE METABOLIC [id number] 00:00:00 Test Item Value Reference Range Interpretation Comments GLUCOSE (test code = 2217) 166 MG/DL BUN (test code = 2208) 30 MG/DL CREATININE (test code = 2214) 1.31 MG/DL eGFR (2020 CKD-EPI) (test code 43 ML/MIN/1.73 = 04322) CALC BUN/CREAT (test code = 23 RATIO [...] (test code = 2219) 13 U/L HEMOGLOBIN [id number] 00:00:00 Test Item Value Reference Range Interpretation Comments HEMOGLOBIN A1c (test code = 58519) 8.8 % HEMOGLOBIN [id number] 00:00:00 Test Item Value Reference Range Interpretation Comments HEMOGLOBIN A1c (test code = 22923) 8.8 % HEMOGLOBIN [id number] 00:00:00 Test Item Value Reference Range Interpretation Comments HEMOGLOBIN A1c (test code = 26588) 8.8 % HEMOGLOBIN [id number] 00:00:00 Test Item Value Reference Range Interpretation Comments HEMOGLOBIN A1c (test code = 98511) 8.8 % HEMOGLOBIN [id number] 00:00:00 Test Item Value Reference Range Interpretation Comments HEMOGLOBIN A1c (test code = 49302) 8.8 % CBC W/AUTO [id number] 00:00:00 Test Item Value Reference Range Interpretation [...] NUCLEATED RBCS (test code = 0.00 K/UL 41902) CBC W/AUTO [id number] 00:00:00 Test Item Value Reference Range Interpretation [...] NUCLEATED RBCS (test code = 0.00 K/UL 36800) CBC W/AUTO [id number] 00:00:00 Test Item Value Reference Range Interpretation [...] NUCLEATED RBCS (test code = 0.00 K/UL 22752) CBC W/AUTO [id number] 00:00:00 Test Item Value Reference Range Interpretation [...] NUCLEATED RBCS (test code = 0.00 K/UL 01120) CBC W/AUTO [id number] 00:00:00 Test Item Value Reference Range Interpretation [...] NUCLEATED RBCS (test code = 0.00 K/UL 49915) COMPREHENSIVE METABOLIC [id number] 00:00:00 Test Item Value Reference Range Interpretation Comments GLUCOSE (test code = 2217) 166 MG/DL BUN (test code = 2208) 30 MG/DL CREATININE (test code = 2214) 1.31 MG/DL eGFR (2020 CKD-EPI) (test code 43 ML/MIN/1.73 = 25935) CALC BUN/CREAT (test code = 23 RATIO [...] code = 2219) 13 U/L COMPREHENSIVE METABOLIC [id number] 00:00:00 Test Item Value Reference Range Interpretation Comments GLUCOSE (test code = 2217) 166 MG/DL BUN (test code = 2208) 30 MG/DL CREATININE (test code = 2214) 1.31 MG/DL eGFR (2020 CKD-EPI) (test code 43 ML/MIN/1.73 = 62045) CALC BUN/CREAT (test code = 23 RATIO [...] code = 2219) 13 U/L COMPREHENSIVE METABOLIC [id number] 00:00:00 Test Item Value Reference Range Interpretation Comments GLUCOSE (test code = 2217) 166 MG/DL BUN (test code = 2208) 30 MG/DL CREATININE (test code = 2214) 1.31 MG/DL eGFR (2020 CKD-EPI) (test code 43 ML/MIN/1.73 = 85918) CALC BUN/CREAT (test code = 23 RATIO [...] (test code = 2219) 13 U/L HEMOGLOBIN [id number] 00:00:00 Test Item Value Reference Range Interpretation Comments HEMOGLOBIN A1c (test code = 02006) 8.8 % HEMOGLOBIN [id number] 00:00:00 Test Item Value Reference Range Interpretation Comments HEMOGLOBIN A1c (test code = 29992) 8.8 % HEMOGLOBIN [id number] 00:00:00 Test Item Value Reference Range Interpretation Comments HEMOGLOBIN A1c (test code = 41883) 8.8 % CBC W/AUTO [id number] 00:00:00 Test Item Value Reference Range Interpretation [...] NUCLEATED RBCS (test code = 0.00 K/UL 47337) CBC W/AUTO [id number] 00:00:00 Test Item Value Reference Range Interpretation [...] NUCLEATED RBCS (test code = 0.00 K/UL 54587) CBC W/AUTO [id number] 00:00:00 Test Item Value Reference Range Interpretation [...] NUCLEATED RBCS (test code = 0.00 K/UL 41522) COMPREHENSIVE METABOLIC [id number] 00:00:00 Test Item Value Reference Range Interpretation Comments GLUCOSE (test code = 2217) 166 MG/DL BUN (test code = 2208) 30 MG/DL CREATININE (test code = 2214) 1.31 MG/DL eGFR (2020 CKD-EPI) (test code 43 ML/MIN/1.73 = 43196) CALC BUN/CREAT (test code = 23 RATIO [...] code = 2219) 13 U/L COMPREHENSIVE METABOLIC [id number] 00:00:00 Test Item Value Reference Range Interpretation Comments GLUCOSE (test code = 2217) 166 MG/DL BUN (test code = 2208) 30 MG/DL CREATININE (test code = 2214) 1.31 MG/DL eGFR (2020 CKD-EPI) (test code 43 ML/MIN/1.73 = 20142) CALC BUN/CREAT (test code = 23 RATIO [...] (test code = 2219) 13 U/L HEMOGLOBIN [id number] 00:00:00 Test Item Value Reference Range Interpretation Comments HEMOGLOBIN A1c (test code = 69074) 8.8 % HEMOGLOBIN [id number] 00:00:00 Test Item Value Reference Range Interpretation Comments HEMOGLOBIN A1c (test code = 80042) 8.8 % HEMOGLOBIN [id number] 00:00:00 Test Item Value Reference Range Interpretation Comments HEMOGLOBIN A1c (test code = 46006) 8.8 % CBC W/AUTO [id number] 00:00:00 Test Item Value Reference Range Interpretation [...] NUCLEATED RBCS (test code = 0.00 K/UL 31715) CBC W/AUTO [id number] 00:00:00 Test Item Value Reference Range Interpretation [...] NUCLEATED RBCS (test code = 0.00 K/UL 35357) CBC W/AUTO [id number] 00:00:00 Test Item Value Reference Range Interpretation [...] NUCLEATED RBCS (test code = 0.00 K/UL 19008) COMPREHENSIVE METABOLIC [id number] 00:00:00 Test Item Value Reference Range Interpretation Comments GLUCOSE (test code = 2217) 166 MG/DL BUN (test code = 2208) 30 MG/DL CREATININE (test code = 2214) 1.31 MG/DL eGFR (2020 CKD-EPI) (test code 43 ML/MIN/1.73 = 24788) CALC BUN/CREAT (test code = 23 RATIO [...] code = 2219) 13 U/L COMPREHENSIVE METABOLIC [id number] 00:00:00 Test Item Value Reference Range Interpretation Comments GLUCOSE (test code = 2217) 166 MG/DL BUN (test code = 2208) 30 MG/DL CREATININE (test code = 2214) 1.31 MG/DL eGFR (2020 CKD-EPI) (test code 43 ML/MIN/1.73 = 48172) CALC BUN/CREAT (test code = 23 RATIO [...] (test code = 2219) 13 U/L HEMOGLOBIN [id number] 00:00:00 Test Item Value Reference Range Interpretation Comments HEMOGLOBIN A1c (test code = 57045) 8.8 % HEMOGLOBIN [id number] 00:00:00 Test Item Value Reference Range Interpretation Comments HEMOGLOBIN A1c (test code = 19106) 8.8 % CBC W/AUTO [id number] 00:00:00 Test Item Value Reference Range Interpretation [...] NUCLEATED RBCS (test code = 0.00 K/UL 98668) CBC W/AUTO [id number] 00:00:00 Test Item Value Reference Range Interpretation [...] NUCLEATED RBCS (test code = 0.00 K/UL 30335) COMPREHENSIVE METABOLIC [id number] 00:00:00 Test Item Value Reference Range Interpretation Comments GLUCOSE (test code = 2217) 166 MG/DL BUN (test code = 2208) 30 MG/DL CREATININE (test code = 2214) 1.31 MG/DL eGFR (2020 CKD-EPI) (test code 43 ML/MIN/1.73 = 82750) CALC BUN/CREAT (test code = 23 RATIO [...] (test code = 2219) 13 U/L HEMOGLOBIN [id number] 00:00:00 Test Item Value Reference Range Interpretation Comments HEMOGLOBIN A1c (test code = 98650) 8.8 % HEMOGLOBIN [id number] 00:00:00 Test Item Value Reference Range Interpretation Comments HEMOGLOBIN A1c (test code = 08058) 8.8 % HEMOGLOBIN [id number] 00:00:00 Test Item Value Reference Range Interpretation Comments HEMOGLOBIN A1c (test code = 21243) 8.8 % CBC W/AUTO [id number] 00:00:00 Test Item Value Reference Range Interpretation [...] NUCLEATED RBCS (test code = 0.00 K/UL 11994) CBC W/AUTO [id number] 00:00:00 Test Item Value Reference Range Interpretation [...] NUCLEATED RBCS (test code = 0.00 K/UL 55729) CBC W/AUTO [id number] 00:00:00 Test Item Value Reference Range Interpretation [...] NUCLEATED RBCS (test code = 0.00 K/UL 84697) COMPREHENSIVE METABOLIC [id number] 00:00:00 Test Item Value Reference Range Interpretation Comments GLUCOSE (test code = 2217) 166 MG/DL BUN (test code = 2208) 30 MG/DL CREATININE (test code = 2214) 1.31 MG/DL eGFR (2020 CKD-EPI) (test code 43 ML/MIN/1.73 = 72683) CALC BUN/CREAT (test code = 23 RATIO [...] code = 2219) 13 U/L COMPREHENSIVE METABOLIC [id number] 00:00:00 Test Item Value Reference Range Interpretation Comments GLUCOSE (test code = 2217) 166 MG/DL BUN (test code = 2208) 30 MG/DL CREATININE (test code = 2214) 1.31 MG/DL eGFR (2020 CKD-EPI) (test code 43 ML/MIN/1.73 = 70093) CALC BUN/CREAT (test code = 23 RATIO [...] (test code = 2219) 13 U/L HEMOGLOBIN [id number] 00:00:00 Test Item Value Reference Range Interpretation Comments HEMOGLOBIN A1c (test code = 67513) 8.8 % HEMOGLOBIN [id number] 00:00:00 Test Item Value Reference Range Interpretation Comments HEMOGLOBIN A1c (test code = 04393) 8.8 % HEMOGLOBIN [id number] 00:00:00 Test Item Value Reference Range Interpretation Comments HEMOGLOBIN A1c (test code = 37711) 8.8 % CBC W/AUTO [id number] 00:00:00 Test Item Value Reference Range Interpretation [...] NUCLEATED RBCS (test code = 0.00 K/UL 89002) CBC W/AUTO [id number] 00:00:00 Test Item Value Reference Range Interpretation [...] NUCLEATED RBCS (test code = 0.00 K/UL 67838) CBC W/AUTO [id number] 00:00:00 Test Item Value Reference Range Interpretation [...] NUCLEATED RBCS (test code = 0.00 K/UL 20648) COMPREHENSIVE METABOLIC [id number] 00:00:00 Test Item Value Reference Range Interpretation Comments GLUCOSE (test code = 2217) 166 MG/DL BUN (test code = 2208) 30 MG/DL CREATININE (test code = 2214) 1.31 MG/DL eGFR (2020 CKD-EPI) (test code 43 ML/MIN/1.73 = 76647) CALC BUN/CREAT (test code = 23 RATIO [...] code = 2219) 13 U/L COMPREHENSIVE METABOLIC [id number] 00:00:00 Test Item Value Reference Range Interpretation Comments GLUCOSE (test code = 2217) 166 MG/DL BUN (test code = 2208) 30 MG/DL CREATININE (test code = 2214) 1.31 MG/DL eGFR (2020 CKD-EPI) (test code 43 ML/MIN/1.73 = 78697) CALC BUN/CREAT (test code = 23 RATIO [...] ALT (test code = 2219) 13 U/L MICROALBUMIN/CREATININE, RANDOM AND [id number] 00:00:00 Test Item Value Reference Range Interpretation Comments CREATININE, URINE, CONC. (test 108.6 MG/DL code = 2072) ALBUMIN, URINE, RANDOM (test code 29.0 MG/DL = 53880) CALC ALBUMIN/CREAT, RND (test 267 MG/G code = 00248) MICROALBUMIN/CREATININE, RANDOM AND [id number] 00:00:00 Test Item Value Reference Range Interpretation Comments CREATININE, URINE, CONC. (test 108.6 MG/DL code = 2072) ALBUMIN, URINE, RANDOM (test code 29.0 MG/DL = 88566) CALC ALBUMIN/CREAT, RND (test 267 MG/G code = 41599) INTACT [id number] 00:00:00 Test Item Value Reference Range Interpretation Comments INTACT PTH (test code = 5005) 85 PG/ML INTACT [id number] 00:00:00 Test Item Value Reference Range Interpretation Comments INTACT PTH (test code = 5005) 85 PG/ML INTACT [id number] 00:00:00 Test Item Value Reference Range Interpretation Comments INTACT PTH (test code = 5005) 85 PG/ML LIPID [id number] 00:00:00 Test Item Value Reference Range Interpretation Comments CHOLESTEROL (test code = 2210) 229 MG/DL TRIGLYCERIDES (test code = 2232) 246 MG/DL HDL CHOLESTEROL (test code = 2220) 48 MG/DL CALC LDL CHOL (test code = 2237) 141 MG/DL RISK RATIO LDL/HDL (test code = 2.94 RATIO 2238) LIPID [id number] 00:00:00 Test Item Value Reference Range Interpretation Comments CHOLESTEROL (test code = 2210) 229 MG/DL TRIGLYCERIDES (test code = 2232) 246 MG/DL HDL CHOLESTEROL (test code = 2220) 48 MG/DL CALC LDL CHOL (test code = 2237) 141 MG/DL RISK RATIO LDL/HDL (test code = 2.94 RATIO 2238) CBC W/AUTO [id number] 00:00:00 Test Item Value Reference Range Interpretation [...] NUCLEATED RBCS (test code = 0.00 K/UL 95920) CBC W/AUTO [id number] 00:00:00 Test Item Value Reference Range Interpretation [...] NUCLEATED RBCS (test code = 0.00 K/UL 47057) CBC W/AUTO [id number] 00:00:00 Test Item Value Reference Range Interpretation [...] NUCLEATED RBCS (test code = 0.00 K/UL 48342) HEMOGLOBIN [id number] 00:00:00 Test Item Value Reference Range Interpretation Comments HEMOGLOBIN A1c (test code = 38554) 9.1 % HEMOGLOBIN [id number] 00:00:00 Test Item Value Reference Range Interpretation Comments HEMOGLOBIN A1c (test code = 22038) 9.1 % HEMOGLOBIN [id number] 00:00:00 Test Item Value Reference Range Interpretation Comments HEMOGLOBIN A1c (test code = 20254) 9.1 % MICROALBUMIN/CREATININE, RANDOM AND [id number] 00:00:00 Test Item Value Reference Range Interpretation Comments CREATININE, URINE, CONC. (test 108.6 MG/DL code = 2072) ALBUMIN, URINE, RANDOM (test code 29.0 MG/DL = 17399) CALC ALBUMIN/CREAT, RND (test 267 MG/G code = 90427) MICROALBUMIN/CREATININE, RANDOM AND [id number] 00:00:00 Test Item Value Reference Range Interpretation Comments CREATININE, URINE, CONC. (test 108.6 MG/DL code = 2072) ALBUMIN, URINE, RANDOM (test code 29.0 MG/DL = 41793) CALC ALBUMIN/CREAT, RND (test 267 MG/G code = 19362) INTACT [id number] 00:00:00 Test Item Value Reference Range Interpretation Comments INTACT PTH (test code = 5005) 85 PG/ML INTACT [id number] 00:00:00 Test Item Value Reference Range Interpretation Comments INTACT PTH (test code = 5005) 85 PG/ML INTACT [id number] 00:00:00 Test Item Value Reference Range Interpretation Comments INTACT PTH (test code = 5005) 85 PG/ML LIPID [id number] 00:00:00 Test Item Value Reference Range Interpretation Comments CHOLESTEROL (test code = 2210) 229 MG/DL TRIGLYCERIDES (test code = 2232) 246 MG/DL HDL CHOLESTEROL (test code = 2220) 48 MG/DL CALC LDL CHOL (test code = 2237) 141 MG/DL RISK RATIO LDL/HDL (test code = 2.94 RATIO 2238) LIPID [id number] 00:00:00 Test Item Value Reference Range Interpretation Comments CHOLESTEROL (test code = 2210) 229 MG/DL TRIGLYCERIDES (test code = 2232) 246 MG/DL HDL CHOLESTEROL (test code = 2220) 48 MG/DL CALC LDL CHOL (test code = 2237) 141 MG/DL RISK RATIO LDL/HDL (test code = 2.94 RATIO 2238) LIPID [id number] 00:00:00 Test Item Value Reference Range Interpretation Comments CHOLESTEROL (test code = 2210) 229 MG/DL TRIGLYCERIDES (test code = 2232) 246 MG/DL HDL CHOLESTEROL (test code = 2220) 48 MG/DL CALC LDL CHOL (test code = 2237) 141 MG/DL RISK RATIO LDL/HDL (test code = 2.94 RATIO 2238) CBC W/AUTO [id number] 00:00:00 Test Item Value Reference Range Interpretation [...] NUCLEATED RBCS (test code = 0.00 K/UL 78692) CBC W/AUTO [id number] 00:00:00 Test Item Value Reference Range Interpretation [...] NUCLEATED RBCS (test code = 0.00 K/UL 32161) CBC W/AUTO [id number] 00:00:00 Test Item Value Reference Range Interpretation [...] NUCLEATED RBCS (test code = 0.00 K/UL 15545) HEMOGLOBIN [id number] 00:00:00 Test Item Value Reference Range Interpretation Comments HEMOGLOBIN A1c (test code = 85414) 9.1 % HEMOGLOBIN [id number] 00:00:00 Test Item Value Reference Range Interpretation Comments HEMOGLOBIN A1c (test code = 67954) 9.1 % HEMOGLOBIN [id number] 00:00:00 Test Item Value Reference Range Interpretation Comments HEMOGLOBIN A1c (test code = 00378) 9.1 % MICROALBUMIN/CREATININE, RANDOM AND [id number] 00:00:00 Test Item Value Reference Range Interpretation Comments CREATININE, URINE, CONC. (test 108.6 MG/DL code = 2072) ALBUMIN, URINE, RANDOM (test code 29.0 MG/DL = 77337) CALC ALBUMIN/CREAT, RND (test 267 MG/G code = 51365) MICROALBUMIN/CREATININE, RANDOM AND [id number] 00:00:00 Test Item Value Reference Range Interpretation Comments CREATININE, URINE, CONC. (test 108.6 MG/DL code = 2072) ALBUMIN, URINE, RANDOM (test code 29.0 MG/DL = 17374) CALC ALBUMIN/CREAT, RND (test 267 MG/G code = 58324) INTACT [id number] 00:00:00 Test Item Value Reference Range Interpretation Comments INTACT PTH (test code = 5005) 85 PG/ML INTACT [id number] 00:00:00 Test Item Value Reference Range Interpretation Comments INTACT PTH (test code = 5005) 85 PG/ML INTACT [id number] 00:00:00 Test Item Value Reference Range Interpretation Comments INTACT PTH (test code = 5005) 85 PG/ML CBC W/AUTO [id number] 00:00:00 Test Item Value Reference Range Interpretation [...] NUCLEATED RBCS (test code = 0.00 K/UL 15962) CBC W/AUTO [id number] 00:00:00 Test Item Value Reference Range Interpretation [...] NUCLEATED RBCS (test code = 0.00 K/UL 02564) HEMOGLOBIN [id number] 00:00:00 Test Item Value Reference Range Interpretation Comments HEMOGLOBIN A1c (test code = 04322) 9.1 % HEMOGLOBIN [id number] 00:00:00 Test Item Value Reference Range Interpretation Comments HEMOGLOBIN A1c (test code = 82582) 9.1 % LIPID [id number] 00:00:00 Test Item Value Reference Range Interpretation Comments CHOLESTEROL (test code = 2210) 229 MG/DL TRIGLYCERIDES (test code = 2232) 246 MG/DL HDL CHOLESTEROL (test code = 2220) 48 MG/DL CALC LDL CHOL (test code = 2237) 141 MG/DL RISK RATIO LDL/HDL (test code = 2.94 RATIO 2238) MICROALBUMIN/CREATININE, RANDOM AND [id number] 00:00:00 Test Item Value Reference Range Interpretation Comments CREATININE, URINE, CONC. (test 108.6 MG/DL code = 2072) ALBUMIN, URINE, RANDOM (test code 29.0 MG/DL = 64752) CALC ALBUMIN/CREAT, RND (test 267 MG/G code = 50759) LIPID [id number] 00:00:00 Test Item Value Reference Range Interpretation Comments CHOLESTEROL (test code = 2210) 229 MG/DL TRIGLYCERIDES (test code = 2232) 246 MG/DL HDL CHOLESTEROL (test code = 2220) 48 MG/DL CALC LDL CHOL (test code = 2237) 141 MG/DL RISK RATIO LDL/HDL (test code = 2.94 RATIO 2238) CBC W/AUTO [id number] 00:00:00 Test Item Value Reference Range Interpretation [...] NUCLEATED RBCS (test code = 0.00 K/UL 78878) CBC W/AUTO [id number] 00:00:00 Test Item Value Reference Range Interpretation [...] NUCLEATED RBCS (test code = 0.00 K/UL 32032) CBC W/AUTO [id number] 00:00:00 Test Item Value Reference Range Interpretation [...] NUCLEATED RBCS (test code = 0.00 K/UL 07735) HEMOGLOBIN [id number] 00:00:00 Test Item Value Reference Range Interpretation Comments HEMOGLOBIN A1c (test code = 95285) 9.1 % HEMOGLOBIN [id number] 00:00:00 Test Item Value Reference Range Interpretation Comments HEMOGLOBIN A1c (test code = 21509) 9.1 % HEMOGLOBIN [id number] 00:00:00 Test Item Value Reference Range Interpretation Comments HEMOGLOBIN A1c (test code = 14492) 9.1 % MICROALBUMIN/CREATININE, RANDOM AND [id number] 00:00:00 Test Item Value Reference Range Interpretation Comments CREATININE, URINE, CONC. (test 108.6 MG/DL code = 2072) ALBUMIN, URINE, RANDOM (test code 29.0 MG/DL = 67749) CALC ALBUMIN/CREAT, RND (test 267 MG/G code = 34476) MICROALBUMIN/CREATININE, RANDOM AND [id number] 00:00:00 Test Item Value Reference Range Interpretation Comments CREATININE, URINE, CONC. (test 108.6 MG/DL code = 2072) ALBUMIN, URINE, RANDOM (test code 29.0 MG/DL = 01470) CALC ALBUMIN/CREAT, RND (test 267 MG/G code = 93511) INTACT [id number] 00:00:00 Test Item Value Reference Range Interpretation Comments INTACT PTH (test code = 5005) 85 PG/ML INTACT [id number] 00:00:00 Test Item Value Reference Range Interpretation Comments INTACT PTH (test code = 5005) 85 PG/ML INTACT [id number] 00:00:00 Test Item Value Reference Range Interpretation Comments INTACT PTH (test code = 5005) 85 PG/ML INTACT [id number] 00:00:00 Test Item Value Reference Range Interpretation Comments INTACT PTH (test code = 5005) 85 PG/ML INTACT [id number] 00:00:00 Test Item Value Reference Range Interpretation Comments INTACT PTH (test code = 5005) 85 PG/ML LIPID [id number] 00:00:00 Test Item Value Reference Range Interpretation Comments CHOLESTEROL (test code = 2210) 229 MG/DL TRIGLYCERIDES (test code = 2232) 246 MG/DL HDL CHOLESTEROL (test code = 2220) 48 MG/DL CALC LDL CHOL (test code = 2237) 141 MG/DL RISK RATIO LDL/HDL (test code = 2.94 RATIO 2238) LIPID [id number] 00:00:00 Test Item Value Reference Range Interpretation Comments CHOLESTEROL (test code = 2210) 229 MG/DL TRIGLYCERIDES (test code = 2232) 246 MG/DL HDL CHOLESTEROL (test code = 2220) 48 MG/DL CALC LDL CHOL (test code = 2237) 141 MG/DL RISK RATIO LDL/HDL (test code = 2.94 RATIO 2238) CBC W/AUTO [id number] 00:00:00 Test Item Value Reference Range Interpretation [...] NUCLEATED RBCS (test code = 0.00 K/UL 38980) CBC W/AUTO [id number] 00:00:00 Test Item Value Reference Range Interpretation [...] NUCLEATED RBCS (test code = 0.00 K/UL 27999) CBC W/AUTO [id number] 00:00:00 Test Item Value Reference Range Interpretation [...] NUCLEATED RBCS (test code = 0.00 K/UL 21507) HEMOGLOBIN [id number] 00:00:00 Test Item Value Reference Range Interpretation Comments HEMOGLOBIN A1c (test code = 29040) 9.1 % HEMOGLOBIN [id number] 00:00:00 Test Item Value Reference Range Interpretation Comments HEMOGLOBIN A1c (test code = 96819) 9.1 % HEMOGLOBIN [id number] 00:00:00 Test Item Value Reference Range Interpretation Comments HEMOGLOBIN A1c (test code = 97695) 9.1 % MICROALBUMIN/CREATININE, RANDOM AND [id number] 00:00:00 Test Item Value Reference Range Interpretation Comments CREATININE, URINE, CONC. (test 108.6 MG/DL code = 2072) ALBUMIN, URINE, RANDOM (test code 29.0 MG/DL = 75153) CALC ALBUMIN/CREAT, RND (test 267 MG/G code = 31866) MICROALBUMIN/CREATININE, RANDOM AND [id number] 00:00:00 Test Item Value Reference Range Interpretation Comments CREATININE, URINE, CONC. (test 108.6 MG/DL code = 2072) ALBUMIN, URINE, RANDOM (test code 29.0 MG/DL = 07068) CALC ALBUMIN/CREAT, RND (test 267 MG/G code = 83951) INTACT [id number] 00:00:00 Test Item Value Reference Range Interpretation Comments INTACT PTH (test code = 5005) 85 PG/ML INTACT [id number] 00:00:00 Test Item Value Reference Range Interpretation Comments INTACT PTH (test code = 5005) 85 PG/ML INTACT [id number] 00:00:00 Test Item Value Reference Range Interpretation Comments INTACT PTH (test code = 5005) 85 PG/ML LIPID [id number] 00:00:00 Test Item Value Reference Range Interpretation Comments CHOLESTEROL (test code = 2210) 229 MG/DL TRIGLYCERIDES (test code = 2232) 246 MG/DL HDL CHOLESTEROL (test code = 2220) 48 MG/DL CALC LDL CHOL (test code = 2237) 141 MG/DL RISK RATIO LDL/HDL (test code = 2.94 RATIO 2238) CBC W/AUTO [id number] 00:00:00 Test Item Value Reference Range Interpretation [...] NUCLEATED RBCS (test code = 0.00 K/UL 57874) CBC W/AUTO [id number] 00:00:00 Test Item Value Reference Range Interpretation [...] NUCLEATED RBCS (test code = 0.00 K/UL 99317) HEMOGLOBIN [id number] 00:00:00 Test Item Value Reference Range Interpretation Comments HEMOGLOBIN A1c (test code = 01192) 9.1 % HEMOGLOBIN [id number] 00:00:00 Test Item Value Reference Range Interpretation Comments HEMOGLOBIN A1c (test code = 69014) 9.1 % MICROALBUMIN/CREATININE, RANDOM AND [id number] 00:00:00 Test Item Value Reference Range Interpretation Comments CREATININE, URINE, CONC. (test 108.6 MG/DL code = 2072) ALBUMIN, URINE, RANDOM (test code 29.0 MG/DL = 58606) CALC ALBUMIN/CREAT, RND (test 267 MG/G code = 09934) INTACT [id number] 00:00:00 Test Item Value Reference Range Interpretation Comments INTACT PTH (test code = 5005) 85 PG/ML INTACT [id number] 00:00:00 Test Item Value Reference Range Interpretation Comments INTACT PTH (test code = 5005) 85 PG/ML LIPID [id number] 00:00:00 Test Item Value Reference Range Interpretation Comments CHOLESTEROL (test code = 2210) 229 MG/DL TRIGLYCERIDES (test code = 2232) 246 MG/DL HDL CHOLESTEROL (test code = 2220) 48 MG/DL CALC LDL CHOL (test code = 2237) 141 MG/DL RISK RATIO LDL/HDL (test code = 2.94 RATIO 2238) LIPID [id number] 00:00:00 Test Item Value Reference Range Interpretation Comments CHOLESTEROL (test code = 2210) 229 MG/DL TRIGLYCERIDES (test code = 2232) 246 MG/DL HDL CHOLESTEROL (test code = 2220) 48 MG/DL CALC LDL CHOL (test code = 2237) 141 MG/DL RISK RATIO LDL/HDL (test code = 2.94 RATIO 2238) CBC W/AUTO [id number] 00:00:00 Test Item Value Reference Range Interpretation [...] NUCLEATED RBCS (test code = 0.00 K/UL 02535) CBC W/AUTO [id number] 00:00:00 Test Item Value Reference Range Interpretation [...] NUCLEATED RBCS (test code = 0.00 K/UL 97199) CBC W/AUTO [id number] 00:00:00 Test Item Value Reference Range Interpretation [...] NUCLEATED RBCS (test code = 0.00 K/UL 04136) HEMOGLOBIN [id number] 00:00:00 Test Item Value Reference Range Interpretation Comments HEMOGLOBIN A1c (test code = 83894) 9.1 % HEMOGLOBIN [id number] 00:00:00 Test Item Value Reference Range Interpretation Comments HEMOGLOBIN A1c (test code = 88561) 9.1 % HEMOGLOBIN [id number] 00:00:00 Test Item Value Reference Range Interpretation Comments HEMOGLOBIN A1c (test code = 61719) 9.1 % MICROALBUMIN/CREATININE, RANDOM AND [id number] 00:00:00 Test Item Value Reference Range Interpretation Comments CREATININE, URINE, CONC. (test 108.6 MG/DL code = 2072) ALBUMIN, URINE, RANDOM (test code 29.0 MG/DL = 87365) CALC ALBUMIN/CREAT, RND (test 267 MG/G code = 65448) MICROALBUMIN/CREATININE, RANDOM AND [id number] 00:00:00 Test Item Value Reference Range Interpretation Comments CREATININE, URINE, CONC. (test 108.6 MG/DL code = 2072) ALBUMIN, URINE, RANDOM (test code 29.0 MG/DL = 01351) CALC ALBUMIN/CREAT, RND (test 267 MG/G code = 46163) INTACT [id number] 00:00:00 Test Item Value Reference Range Interpretation Comments INTACT PTH (test code = 5005) 85 PG/ML INTACT [id number] 00:00:00 Test Item Value Reference Range Interpretation Comments INTACT PTH (test code = 5005) 85 PG/ML INTACT [id number] 00:00:00 Test Item Value Reference Range Interpretation Comments INTACT PTH (test code = 5005) 85 PG/ML LIPID [id number] 00:00:00 Test Item Value Reference Range Interpretation Comments CHOLESTEROL (test code = 2210) 229 MG/DL TRIGLYCERIDES (test code = 2232) 246 MG/DL HDL CHOLESTEROL (test code = 2220) 48 MG/DL CALC LDL CHOL (test code = 2237) 141 MG/DL RISK RATIO LDL/HDL (test code = 2.94 RATIO 2238) LIPID [id number] 00:00:00 Test Item Value Reference Range Interpretation Comments CHOLESTEROL (test code = 2210) 229 MG/DL TRIGLYCERIDES (test code = 2232) 246 MG/DL HDL CHOLESTEROL (test code = 2220) 48 MG/DL CALC LDL CHOL (test code = 2237) 141 MG/DL RISK RATIO LDL/HDL (test code = 2.94 RATIO 2238) CBC W/AUTO [id number] 00:00:00 Test Item Value Reference Range Interpretation [...] NUCLEATED RBCS (test code = 0.00 K/UL 22711) CBC W/AUTO [id number] 00:00:00 Test Item Value Reference Range Interpretation [...] NUCLEATED RBCS (test code = 0.00 K/UL 71267) CBC W/AUTO [id number] 00:00:00 Test Item Value Reference Range Interpretation [...] NUCLEATED RBCS (test code = 0.00 K/UL 46330) HEMOGLOBIN [id number] 00:00:00 Test Item Value Reference Range Interpretation Comments HEMOGLOBIN A1c (test code = 30032) 9.1 % HEMOGLOBIN [id number] 00:00:00 Test Item Value Reference Range Interpretation Comments HEMOGLOBIN A1c (test code = 15762) 9.1 % HEMOGLOBIN [id number] 00:00:00 Test Item Value Reference Range Interpretation Comments HEMOGLOBIN A1c (test code = 61040) 9.1 % CULTURE, [id number] 00:00:00 Test Item Value Reference Range Interpretation Comments CULTURE, ROUTINE (test SPECIMEN NUMBER: code = 66660) [id number] CULTURE, [id number] 00:00:00 Test Item Value Reference Range Interpretation Comments CULTURE, ROUTINE (test SPECIMEN NUMBER: code = 30291) [id number] CULTURE, [id number] 00:00:00 Test Item Value Reference Range Interpretation Comments CULTURE, ROUTINE (test SPECIMEN NUMBER: code = 19373) [id number] CULTURE, [id number] 00:00:00 Test Item Value Reference Range Interpretation Comments CULTURE, ROUTINE (test SPECIMEN NUMBER: code = 14596) [id number] CULTURE, [id number] 00:00:00 Test Item Value Reference Range Interpretation Comments CULTURE, ROUTINE (test SPECIMEN NUMBER: code = 52130) [id number] CULTURE, [id number] 00:00:00 Test Item Value Reference Range Interpretation Comments CULTURE, ROUTINE (test SPECIMEN NUMBER: code = 93766) [id number] CULTURE, [id number] 00:00:00 Test Item Value Reference Range Interpretation Comments CULTURE, ROUTINE (test SPECIMEN NUMBER: code = 82403) [id number] CULTURE, [id number] 00:00:00 Test Item Value Reference Range Interpretation Comments CULTURE, ROUTINE (test SPECIMEN NUMBER: code = 61182) [id number] CULTURE, [id number] 00:00:00 Test Item Value Reference Range Interpretation Comments CULTURE, ROUTINE (test SPECIMEN NUMBER: code = 80629) [id number] CULTURE, [id number] 00:00:00 Test Item Value Reference Range Interpretation Comments CULTURE, ROUTINE (test SPECIMEN NUMBER: code = 15543) [id number] CULTURE, [id number] 00:00:00 Test Item Value Reference Range Interpretation Comments CULTURE, ROUTINE (test SPECIMEN NUMBER: code = 00929) [id number] CULTURE, [id number] 00:00:00 Test Item Value Reference Range Interpretation Comments CULTURE, ROUTINE (test SPECIMEN NUMBER: code = 37829) [id number] CULTURE, [id number] 00:00:00 Test Item Value Reference Range Interpretation Comments CULTURE, ROUTINE (test SPECIMEN NUMBER: code = 45659) [id number] CULTURE, [id number] 00:00:00 Test Item Value Reference Range Interpretation Comments CULTURE, ROUTINE (test SPECIMEN NUMBER: code = 79842) [id number] CULTURE, [id number] 00:00:00 Test Item Value Reference Range Interpretation Comments CULTURE, ROUTINE (test SPECIMEN NUMBER: code = 99615) [id number] CULTURE, [id number] 00:00:00 Test Item Value Reference Range Interpretation Comments CULTURE, ROUTINE (test SPECIMEN NUMBER: code = 81210) [id number] CULTURE, [id number] 00:00:00 Test Item Value Reference Range Interpretation Comments CULTURE, ROUTINE (test SPECIMEN NUMBER: code = 88255) [id number] CULTURE, [id number] 00:00:00 Test Item Value Reference Range Interpretation Comments CULTURE, ROUTINE (test SPECIMEN NUMBER: code = 16630) [id number] CULTURE, [id number] 00:00:00 Test Item Value Reference Range Interpretation Comments CULTURE, ROUTINE (test SPECIMEN NUMBER: code = 60522) [id number] CULTURE, [id number] 00:00:00 Test Item Value Reference Range Interpretation Comments CULTURE, ROUTINE (test SPECIMEN NUMBER: code = 50795) [id number] CULTURE, [id number] 00:00:00 Test Item Value Reference Range Interpretation Comments CULTURE, ROUTINE (test SPECIMEN NUMBER: code = 11052) [id number] CULTURE, [id number] 00:00:00 Test Item Value Reference Range Interpretation Comments CULTURE, ROUTINE (test SPECIMEN NUMBER: code = 58256) [id number] COMPREHENSIVE METABOLIC [id number] 00:00:00 Test Item Value Reference Range Interpretation Comments GLUCOSE (test code = 2217) 222 MG/DL BUN (test code = 2208) 27 MG/DL CREATININE (test code = 2214) 1.05 MG/DL eGFR AMER. (test code 61 ML/MIN/1.73 = 85902) eGFR NON- AMER. (test 53 ML/MIN/1.73 code = 70516) CALC BUN/CREAT (test code = 26 RATIO [...] code = 2219) 11 U/L COMPREHENSIVE METABOLIC [id number] 00:00:00 Test Item Value Reference Range Interpretation Comments GLUCOSE (test code = 2217) 222 MG/DL BUN (test code = 2208) 27 MG/DL CREATININE (test code = 2214) 1.05 MG/DL eGFR AMER. (test code 61 ML/MIN/1.73 = 20624) eGFR NON- AMER. (test 53 ML/MIN/1.73 code = 82643) CALC BUN/CREAT (test code = 26 RATIO [...] (test code = 2219) 11 U/L LIPID [id number] 00:00:00 Test Item Value Reference Range Interpretation Comments CHOLESTEROL (test code = 2210) 230 MG/DL TRIGLYCERIDES (test code = 2232) 414 MG/DL HDL CHOLESTEROL (test code = 51 MG/DL 2220) CALC LDL CHOL (test code = 2237) (NOTE) MG/DL RISK RATIO LDL/HDL (test code = (NOTE) RATIO 2238) LIPID [id number] 00:00:00 Test Item Value Reference Range Interpretation Comments CHOLESTEROL (test code = 2210) 230 MG/DL TRIGLYCERIDES (test code = 2232) 414 MG/DL HDL CHOLESTEROL (test code = 51 MG/DL 2220) CALC LDL CHOL (test code = 2237) (NOTE) MG/DL RISK RATIO LDL/HDL (test code = (NOTE) RATIO 2238) HEMOGLOBIN [id number] 00:00:00 Test Item Value Reference Range Interpretation Comments HEMOGLOBIN A1c (test code = 62260) 8.7 % HEMOGLOBIN [id number] 00:00:00 Test Item Value Reference Range Interpretation Comments HEMOGLOBIN A1c (test code = 28446) 8.7 % HEMOGLOBIN [id number] 00:00:00 Test Item Value Reference Range Interpretation Comments HEMOGLOBIN A1c (test code = 24813) 8.7 % COMPREHENSIVE METABOLIC [id number] 00:00:00 Test Item Value Reference Range Interpretation Comments GLUCOSE (test code = 2217) 222 MG/DL BUN (test code = 2208) 27 MG/DL CREATININE (test code = 2214) 1.05 MG/DL eGFR AMER. (test code 61 ML/MIN/1.73 = 18612) eGFR NON- AMER. (test 53 ML/MIN/1.73 code = 08262) CALC BUN/CREAT (test code = 26 RATIO [...] = 220) AST (test code = 2218) 14 U/L ALT (test code = 2219) 11 U/L COMPREHENSIVE METABOLIC [id number] 00:00:00 Test Item Value Reference Range Interpretation Comments GLUCOSE (test code = 2217) 222 MG/DL BUN (test code = 2208) 27 MG/DL CREATININE (test code = 2214) 1.05 MG/DL eGFR AMER. (test code 61 ML/MIN/1.73 = 56821) eGFR NON- AMER. (test 53 ML/MIN/1.73 code = 58267) CALC BUN/CREAT (test code = 26 RATIO [...] code = 2219) 11 U/L COMPREHENSIVE METABOLIC [id number] 00:00:00 Test Item Value Reference Range Interpretation Comments GLUCOSE (test code = 2217) 222 MG/DL BUN (test code = 2208) 27 MG/DL CREATININE (test code = 2214) 1.05 MG/DL eGFR AMER. (test code 61 ML/MIN/1.73 = 41671) eGFR NON- AMER. (test 53 ML/MIN/1.73 code = 20505) CALC BUN/CREAT (test code = 26 RATIO [...] (test code = 2219) 11 U/L LIPID [id number] 00:00:00 Test Item Value Reference Range Interpretation Comments CHOLESTEROL (test code = 2210) 230 MG/DL TRIGLYCERIDES (test code = 2232) 414 MG/DL HDL CHOLESTEROL (test code = 51 MG/DL 2220) CALC LDL CHOL (test code = 2237) (NOTE) MG/DL RISK RATIO LDL/HDL (test code = (NOTE) RATIO 2238) LIPID [id number] 00:00:00 Test Item Value Reference Range Interpretation Comments CHOLESTEROL (test code = 2210) 230 MG/DL TRIGLYCERIDES (test code = 2232) 414 MG/DL HDL CHOLESTEROL (test code = 51 MG/DL 2220) CALC LDL CHOL (test code = 2237) (NOTE) MG/DL RISK RATIO LDL/HDL (test code = (NOTE) RATIO 2238) HEMOGLOBIN [id number] 00:00:00 Test Item Value Reference Range Interpretation Comments HEMOGLOBIN A1c (test code = 13758) 8.7 % LIPID [id number] 00:00:00 Test Item Value Reference Range Interpretation Comments CHOLESTEROL (test code = 2210) 230 MG/DL TRIGLYCERIDES (test code = 2232) 414 MG/DL HDL CHOLESTEROL (test code = 51 MG/DL 2219) CALC LDL CHOL (test code = 2237) (NOTE) MG/DL RISK RATIO LDL/HDL (test code = (NOTE) RATIO 2238) HEMOGLOBIN [id number] 00:00:00 Test Item Value Reference Range Interpretation Comments HEMOGLOBIN A1c (test code = 30791) 8.7 % HEMOGLOBIN [id number] 00:00:00 Test Item Value Reference Range Interpretation Comments HEMOGLOBIN A1c (test code = 20121) 8.7 % HEMOGLOBIN [id number] 00:00:00 Test Item Value Reference Range Interpretation Comments HEMOGLOBIN A1c (test code = 80256) 8.7 % HEMOGLOBIN [id number] 00:00:00 Test Item Value Reference Range Interpretation Comments HEMOGLOBIN A1c (test code = 80544) 8.7 % COMPREHENSIVE METABOLIC [id number] 00:00:00 Test Item Value Reference Range Interpretation Comments GLUCOSE (test code = 2217) 222 MG/DL BUN (test code = 2208) 27 MG/DL CREATININE (test code = 2214) 1.05 MG/DL eGFR AMER. (test code 61 ML/MIN/1.73 = 53561) eGFR NON- AMER. (test 53 ML/MIN/1.73 code = 38526) CALC BUN/CREAT (test code = 26 RATIO [...] code = 2219) 11 U/L COMPREHENSIVE METABOLIC [id number] 00:00:00 Test Item Value Reference Range Interpretation Comments GLUCOSE (test code = 2217) 222 MG/DL BUN (test code = 2208) 27 MG/DL CREATININE (test code = 2214) 1.05 MG/DL eGFR AMER. (test code 61 ML/MIN/1.73 = 10263) eGFR NON- AMER. (test 53 ML/MIN/1.73 code = 96911) CALC BUN/CREAT (test code = 26 RATIO [...] (test code = 2219) 11 U/L LIPID [id number] 00:00:00 Test Item Value Reference Range Interpretation Comments CHOLESTEROL (test code = 2210) 230 MG/DL TRIGLYCERIDES (test code = 2232) 414 MG/DL HDL CHOLESTEROL (test code = 51 MG/DL 2220) CALC LDL CHOL (test code = 2237) (NOTE) MG/DL RISK RATIO LDL/HDL (test code = (NOTE) RATIO 2238) LIPID [id number] 00:00:00 Test Item Value Reference Range Interpretation Comments CHOLESTEROL (test code = 2210) 230 MG/DL TRIGLYCERIDES (test code = 2232) 414 MG/DL HDL CHOLESTEROL (test code = 51 MG/DL 2220) CALC LDL CHOL (test code = 2237) (NOTE) MG/DL RISK RATIO LDL/HDL (test code = (NOTE) RATIO 2238) HEMOGLOBIN [id number] 00:00:00 Test Item Value Reference Range Interpretation Comments HEMOGLOBIN A1c (test code = 43198) 8.7 % HEMOGLOBIN [id number] 00:00:00 Test Item Value Reference Range Interpretation Comments HEMOGLOBIN A1c (test code = 71864) 8.7 % HEMOGLOBIN [id number] 00:00:00 Test Item Value Reference Range Interpretation Comments HEMOGLOBIN A1c (test code = 87393) 8.7 % COMPREHENSIVE METABOLIC [id number] 00:00:00 Test Item Value Reference Range Interpretation Comments GLUCOSE (test code = 2217) 222 MG/DL BUN (test code = 2208) 27 MG/DL CREATININE (test code = 2214) 1.05 MG/DL eGFR AMER. (test code 61 ML/MIN/1.73 = 37132) eGFR NON- AMER. (test 53 ML/MIN/1.73 code = 61287) CALC BUN/CREAT (test code = 26 RATIO [...] code = 2219) 11 U/L COMPREHENSIVE METABOLIC [id number] 00:00:00 Test Item Value Reference Range Interpretation Comments GLUCOSE (test code = 2217) 222 MG/DL BUN (test code = 2208) 27 MG/DL CREATININE (test code = 2214) 1.05 MG/DL eGFR AMER. (test code 61 ML/MIN/1.73 = 33239) eGFR NON- AMER. (test 53 ML/MIN/1.73 code = 81558) CALC BUN/CREAT (test code = 26 RATIO [...] (test code = 2219) 11 U/L LIPID [id number] 00:00:00 Test Item Value Reference Range Interpretation Comments CHOLESTEROL (test code = 2210) 230 MG/DL TRIGLYCERIDES (test code = 2232) 414 MG/DL HDL CHOLESTEROL (test code = 51 MG/DL 2220) CALC LDL CHOL (test code = 2237) (NOTE) MG/DL RISK RATIO LDL/HDL (test code = (NOTE) RATIO 2238) LIPID [id number] 00:00:00 Test Item Value Reference Range Interpretation Comments CHOLESTEROL (test code = 2210) 230 MG/DL TRIGLYCERIDES (test code = 2232) 414 MG/DL HDL CHOLESTEROL (test code = 51 MG/DL 2220) CALC LDL CHOL (test code = 2237) (NOTE) MG/DL RISK RATIO LDL/HDL (test code = (NOTE) RATIO 2238) HEMOGLOBIN [id number] 00:00:00 Test Item Value Reference Range Interpretation Comments HEMOGLOBIN A1c (test code = 54950) 8.7 % HEMOGLOBIN [id number] 00:00:00 Test Item Value Reference Range Interpretation Comments HEMOGLOBIN A1c (test code = 60265) 8.7 % HEMOGLOBIN [id number] 00:00:00 Test Item Value Reference Range Interpretation Comments HEMOGLOBIN A1c (test code = 95745) 8.7 % COMPREHENSIVE METABOLIC [id number] 00:00:00 Test Item Value Reference Range Interpretation Comments GLUCOSE (test code = 2217) 222 MG/DL BUN (test code = 2208) 27 MG/DL CREATININE (test code = 2214) 1.05 MG/DL eGFR AMER. (test code 61 ML/MIN/1.73 = 53649) eGFR NON- AMER. (test 53 ML/MIN/1.73 code = 77517) CALC BUN/CREAT (test code = 26 RATIO [...] (test code = 2219) 11 U/L LIPID [id number] 00:00:00 Test Item Value Reference Range Interpretation Comments CHOLESTEROL (test code = 2210) 230 MG/DL TRIGLYCERIDES (test code = 2232) 414 MG/DL HDL CHOLESTEROL (test code = 51 MG/DL 0) CALC LDL CHOL (test code = 2237) (NOTE) MG/DL RISK RATIO LDL/HDL (test code = (NOTE) RATIO 2238) HEMOGLOBIN [id number] 00:00:00 Test Item Value Reference Range Interpretation Comments HEMOGLOBIN A1c (test code = 99946) 8.7 % HEMOGLOBIN [id number] 00:00:00 Test Item Value Reference Range Interpretation Comments HEMOGLOBIN A1c (test code = 35844) 8.7 % COMPREHENSIVE METABOLIC [id number] 00:00:00 Test Item Value Reference Range Interpretation Comments GLUCOSE (test code = 2217) 222 MG/DL BUN (test code = 2208) 27 MG/DL CREATININE (test code = 2214) 1.05 MG/DL eGFR AMER. (test code 61 ML/MIN/1.73 = 28836) eGFR NON- AMER. (test 53 ML/MIN/1.73 code = 48331) CALC BUN/CREAT (test code = 26 RATIO [...] = 220) AST (test code = 2218) 14 U/L ALT (test code = 2219) 11 U/L COMPREHENSIVE METABOLIC [id number] 00:00:00 Test Item Value Reference Range Interpretation Comments GLUCOSE (test code = 2217) 222 MG/DL BUN (test code = 2208) 27 MG/DL CREATININE (test code = 2214) 1.05 MG/DL eGFR AMER. (test code 61 ML/MIN/1.73 = 96060) eGFR NON- AMER. (test 53 ML/MIN/1.73 code = 70513) CALC BUN/CREAT (test code = 26 RATIO [...] (test code = 2219) 11 U/L LIPID [id number] 00:00:00 Test Item Value Reference Range Interpretation Comments CHOLESTEROL (test code = 2210) 230 MG/DL TRIGLYCERIDES (test code = 2232) 414 MG/DL HDL CHOLESTEROL (test code = 51 MG/DL 2220) CALC LDL CHOL (test code = 2237) (NOTE) MG/DL RISK RATIO LDL/HDL (test code = (NOTE) RATIO 2238) LIPID [id number] 00:00:00 Test Item Value Reference Range Interpretation Comments CHOLESTEROL (test code = 2210) 230 MG/DL TRIGLYCERIDES (test code = 2232) 414 MG/DL HDL CHOLESTEROL (test code = 51 MG/DL 2220) CALC LDL CHOL (test code = 2237) (NOTE) MG/DL RISK RATIO LDL/HDL (test code = (NOTE) RATIO 2238) HEMOGLOBIN [id number] 00:00:00 Test Item Value Reference Range Interpretation Comments HEMOGLOBIN A1c (test code = 27301) 8.7 % HEMOGLOBIN [id number] 00:00:00 Test Item Value Reference Range Interpretation Comments HEMOGLOBIN A1c (test code = 48150) 8.7 % HEMOGLOBIN [id number] 00:00:00 Test Item Value Reference Range Interpretation Comments HEMOGLOBIN A1c (test code = 14201) 8.7 % COMPREHENSIVE METABOLIC [id number] 00:00:00 Test Item Value Reference Range Interpretation Comments GLUCOSE (test code = 2217) 222 MG/DL BUN (test code = 2208) 27 MG/DL CREATININE (test code = 2214) 1.05 MG/DL eGFR AMER. (test code 61 ML/MIN/1.73 = 28101) eGFR NON- AMER. (test 53 ML/MIN/1.73 code = 69793) CALC BUN/CREAT (test code = 26 RATIO 2235) SODIUM (test code = 2231) 140 MEQ/L POTASSIUM (test code = 2228) 5.2 MEQ/L CHLORIDE (test code = 2215) 106 MEQ/L CARBON DIOXIDE (test code = 20 MEQ/L 6) CALCIUM (test code = 2209) 9.4 MG/DL [...] code = 2219) 11 U/L COMPREHENSIVE METABOLIC [id number] 00:00:00 Test Item Value Reference Range Interpretation Comments GLUCOSE (test code = 2217) 222 MG/DL BUN (test code = 2208) 27 MG/DL CREATININE (test code = 2214) 1.05 MG/DL eGFR AMER. (test code 61 ML/MIN/1.73 = 83148) eGFR NON- AMER. (test 53 ML/MIN/1.73 code = 38407) CALC BUN/CREAT (test code = 26 RATIO [...] (test code = 2219) 11 U/L LIPID [id number] 00:00:00 Test Item Value Reference Range Interpretation Comments CHOLESTEROL (test code = 2210) 230 MG/DL TRIGLYCERIDES (test code = 2232) 414 MG/DL HDL CHOLESTEROL (test code = 51 MG/DL 0) CALC LDL CHOL (test code = 2237) (NOTE) MG/DL RISK RATIO LDL/HDL (test code = (NOTE) RATIO 2238) LIPID [id number] 00:00:00 Test Item Value Reference Range Interpretation Comments CHOLESTEROL (test code = 2210) 230 MG/DL TRIGLYCERIDES (test code = 2232) 414 MG/DL HDL CHOLESTEROL (test code = 51 MG/DL 2220) CALC LDL CHOL (test code = 2237) (NOTE) MG/DL RISK RATIO LDL/HDL (test code = (NOTE) RATIO 2238) HEMOGLOBIN [id number] 00:00:00 Test Item Value Reference Range Interpretation Comments HEMOGLOBIN A1c (test code = 87391) 8.7 % HEMOGLOBIN [id number] 00:00:00 Test Item Value Reference Range Interpretation Comments HEMOGLOBIN A1c (test code = 36751) 8.7 % HEMOGLOBIN [id number] 00:00:00 Test Item Value Reference Range Interpretation Comments HEMOGLOBIN A1c (test code = 70650) 8.7 % XR KNEE 3 VW [id number] 19:05:24HISTORY: ?Pain. FINDINGS: AP, lateral, oblique views [...] arthritis of left knee with minimal jointeffusion. [facility], [facility] Results Inft User - 10/14/2020 2:06 [...] degenerative arthritis of left [facility]usion[facility] 2020-10-14 19:04:18HISTORY: ?Pain. [...] No acutefracture or dislocation in left ankle. [facility], [facility] Results Inft User - 10/14/2020 2:05 [...] joint.CONCLUSIONS: No acute fractureor dislocation in left ankle[facility] LEFT 2020-10-14 19:03:08HISTORY: ?Pain. FINDINGS: AP view of the pelvis, AP and lateral views centered over theleft hip joint showed no acute fracture or dislocation. No sign of AVN inthe femoral heads. Mild degenerative arthritis is noted in the left hipjoint. Sacroiliac joints appear normal. CONCLUSIONS: No acute fracture or dislocation in pelvis or left hip. [facility], [facility] Results Inft User - 10/14/2020 2:04 PM CDTHISTORY: Pain.FINDINGS: AP view of the pelvis, AP and lateral views centered over theleft hip joint showed no acute fracture or dislocation. No sign of AVN inthe femoral heads. Mild degenerative arthritis is noted in the left hipjoint. Sacroiliac joints appear normal.CONCLUSIONS: No acute fracture or dislocation in pelvis or left hip.[facility] [id number] 00:00:00 Test Item Value Reference Range Interpretation Comments CULTURE, URINE (test SPECIMEN NUMBER: code = 44879) [id number] CULTURE, [id number] 00:00:00 Test Item Value Reference Range Interpretation Comments CULTURE, URINE (test SPECIMEN NUMBER: code = 40577) [id number] VITAMIN D, 25 [id number] 00:00:00 Test Item Value Reference Range Interpretation Comments VITAMIN D, 25 OH (test code = 4958) 18 NG/ML VITAMIN D, 25 [id number] 00:00:00 Test Item Value Reference Range Interpretation Comments VITAMIN D, 25 OH (test code = 4958) 18 NG/ML CULTURE, [id number] 00:00:00 Test Item Value Reference Range Interpretation Comments CULTURE, URINE (test SPECIMEN NUMBER: code = 01184) [id number] CULTURE, [id number] 00:00:00 Test Item Value Reference Range Interpretation Comments CULTURE, URINE (test SPECIMEN NUMBER: code = 01292) [id number] VITAMIN D, 25 [id number] 00:00:00 Test Item Value Reference Range Interpretation Comments VITAMIN D, 25 OH (test code = 4958) 18 NG/ML VITAMIN D, 25 [id number] 00:00:00 Test Item Value Reference Range Interpretation Comments VITAMIN D, 25 OH (test code = 4958) 18 NG/ML CULTURE, [id number] 00:00:00 Test Item Value Reference Range Interpretation Comments CULTURE, URINE (test SPECIMEN NUMBER: code = 44412) [id number] CULTURE, [id number] 00:00:00 Test Item Value Reference Range Interpretation Comments CULTURE, URINE (test SPECIMEN NUMBER: code = 68746) [id number] VITAMIN D, 25 [id number] 00:00:00 Test Item Value Reference Range Interpretation Comments VITAMIN D, 25 OH (test code = 4958) 18 NG/ML CULTURE, [id number] 00:00:00 Test Item Value Reference Range Interpretation Comments CULTURE, URINE (test SPECIMEN NUMBER: code = 94878) [id number] VITAMIN D, 25 [id number] 00:00:00 Test Item Value Reference Range Interpretation Comments VITAMIN D, 25 OH (test code = 4958) 18 NG/ML VITAMIN D, 25 [id number] 00:00:00 Test Item Value Reference Range Interpretation Comments VITAMIN D, 25 OH (test code = 4958) 18 NG/ML CULTURE, [id number] 00:00:00 Test Item Value Reference Range Interpretation Comments CULTURE, URINE (test SPECIMEN NUMBER: code = 30422) [id number] CULTURE, [id number] 00:00:00 Test Item Value Reference Range Interpretation Comments CULTURE, URINE (test SPECIMEN NUMBER: code = 95914) [id number] VITAMIN D, 25 [id number] 00:00:00 Test Item Value Reference Range Interpretation Comments VITAMIN D, 25 OH (test code = 4958) 18 NG/ML VITAMIN D, 25 [id number] 00:00:00 Test Item Value Reference Range Interpretation Comments VITAMIN D, 25 OH (test code = 4958) 18 NG/ML CULTURE, [id number] 00:00:00 Test Item Value Reference Range Interpretation Comments CULTURE, URINE (test SPECIMEN NUMBER: code = 81499) [id number] CULTURE, [id number] 00:00:00 Test Item Value Reference Range Interpretation Comments CULTURE, URINE (test SPECIMEN NUMBER: code = 84679) [id number] VITAMIN D, 25 [id number] 00:00:00 Test Item Value Reference Range Interpretation Comments VITAMIN D, 25 OH (test code = 4958) 18 NG/ML CULTURE, [id number] 00:00:00 Test Item Value Reference Range Interpretation Comments CULTURE, URINE (test SPECIMEN NUMBER: code = 30697) [id number] VITAMIN D, 25 [id number] 00:00:00 Test Item Value Reference Range Interpretation Comments VITAMIN D, 25 OH (test code = 4958) 18 NG/ML VITAMIN D, 25 [id number] 00:00:00 Test Item Value Reference Range Interpretation Comments VITAMIN D, 25 OH (test code = 4958) 18 NG/ML CULTURE, [id number] 00:00:00 Test Item Value Reference Range Interpretation Comments CULTURE, URINE (test SPECIMEN NUMBER: code = 37746) [id number] CULTURE, [id number] 00:00:00 Test Item Value Reference Range Interpretation Comments CULTURE, URINE (test SPECIMEN NUMBER: code = 73994) [id number] VITAMIN D, 25 [id number] 00:00:00 Test Item Value Reference Range Interpretation Comments VITAMIN D, 25 OH (test code = 4958) 18 NG/ML VITAMIN D, 25 [id number] 00:00:00 Test Item Value Reference Range Interpretation Comments VITAMIN D, 25 OH (test code = 4958) 18 NG/ML [id number] 00:00:00 Test Item Value Reference Range Interpretation Comments TSH, THIRD GENERATION (test code 2.450 UIU/ML = 2821) [id number] 00:00:00 Test Item Value Reference Range Interpretation Comments TSH, THIRD GENERATION (test code 2.450 UIU/ML = 2821) [id number] 00:00:00 Test Item Value Reference Range Interpretation Comments TSH, THIRD GENERATION (test code 2.450 UIU/ML = 2821) [id number] 00:00:00 Test Item Value Reference Range Interpretation Comments TSH, THIRD GENERATION (test code 2.450 UIU/ML = 2821) [id number] 00:00:00 Test Item Value Reference Range Interpretation Comments TSH, THIRD GENERATION (test code 2.450 UIU/ML = 2821) [id number] 00:00:00 Test Item Value Reference Range Interpretation Comments TSH, THIRD GENERATION (test code 2.450 UIU/ML = 2821) [id number] 00:00:00 Test Item Value Reference Range Interpretation Comments TSH, THIRD GENERATION (test code 2.450 UIU/ML = 2821) [id number] 00:00:00 Test Item Value Reference Range Interpretation Comments TSH, THIRD GENERATION (test code 2.450 UIU/ML = 2821) [id number] 00:00:00 Test Item Value Reference Range Interpretation Comments TSH, THIRD GENERATION (test code 2.450 UIU/ML = 2821) [id number] 00:00:00 Test Item Value Reference Range Interpretation Comments TSH, THIRD GENERATION (test code 2.450 UIU/ML = 2821) [id number] 00:00:00 Test Item Value Reference Range Interpretation Comments TSH, THIRD GENERATION (test code 2.450 UIU/ML = 2821) [id number] 00:00:00 Test Item Value Reference Range Interpretation Comments TSH, THIRD GENERATION (test code 2.450 UIU/ML = 2821) [id number] 00:00:00 Test Item Value Reference Range Interpretation Comments TSH, THIRD GENERATION (test code 2.450 UIU/ML = 2821) [id number] 00:00:00 Test Item Value Reference Range Interpretation Comments TSH, THIRD GENERATION (test code 2.450 UIU/ML = 2821) [id number] 00:00:00 Test Item Value Reference Range Interpretation Comments TSH, THIRD GENERATION (test code 2.450 UIU/ML = 2821) [id number] 00:00:00 Test Item Value Reference Range Interpretation Comments TSH, THIRD GENERATION (test code 2.450 UIU/ML = 2821) [id number] 00:00:00 Test Item Value Reference Range Interpretation Comments TSH, THIRD GENERATION (test code 2.450 UIU/ML = 2821) [id number] 00:00:00 Test Item Value Reference Range Interpretation Comments TSH, THIRD GENERATION (test code 2.450 UIU/ML = 2821) [id number] 00:00:00 Test Item Value Reference Range Interpretation Comments TSH, THIRD GENERATION (test code 2.450 UIU/ML = 2821) [id number] 00:00:00 Test Item Value Reference Range Interpretation Comments TSH, THIRD GENERATION (test code 2.450 UIU/ML = 2821) [id number] 00:00:00 Test Item Value Reference Range Interpretation Comments TSH, THIRD GENERATION (test code 2.450 UIU/ML = 2821) [id number] 00:00:00 Test Item Value Reference Range Interpretation Comments TSH, THIRD GENERATION (test code 2.450 UIU/ML = 2821) HEMOGLOBIN [id number] 00:00:00 Test Item Value Reference Range Interpretation Comments HEMOGLOBIN A1c (test code = 50402) 7.4 % HEMOGLOBIN [id number] 00:00:00 Test Item Value Reference Range Interpretation Comments HEMOGLOBIN A1c (test code = 00538) 7.4 % HEMOGLOBIN [id number] 00:00:00 Test Item Value Reference Range Interpretation Comments HEMOGLOBIN A1c (test code = 48421) 7.4 % HEMOGLOBIN [id number] 00:00:00 Test Item Value Reference Range Interpretation Comments HEMOGLOBIN A1c (test code = 60049) 7.4 % HEMOGLOBIN [id number] 00:00:00 Test Item Value Reference Range Interpretation Comments HEMOGLOBIN A1c (test code = 47325) 7.4 % HEMOGLOBIN [id number] 00:00:00 Test Item Value Reference Range Interpretation Comments HEMOGLOBIN A1c (test code = 68306) 7.4 % HEMOGLOBIN [id number] 00:00:00 Test Item Value Reference Range Interpretation Comments HEMOGLOBIN A1c (test code = 98010) 7.4 % HEMOGLOBIN [id number] 00:00:00 Test Item Value Reference Range Interpretation Comments HEMOGLOBIN A1c (test code = 26686) 7.4 % HEMOGLOBIN [id number] 00:00:00 Test Item Value Reference Range Interpretation Comments HEMOGLOBIN A1c (test code = 43505) 7.4 % HEMOGLOBIN [id number] 00:00:00 Test Item Value Reference Range Interpretation Comments HEMOGLOBIN A1c (test code = 67171) 7.4 % HEMOGLOBIN [id number] 00:00:00 Test Item Value Reference Range Interpretation Comments HEMOGLOBIN A1c (test code = 14147) 7.4 % HEMOGLOBIN [id number] 00:00:00 Test Item Value Reference Range Interpretation Comments HEMOGLOBIN A1c (test code = 29492) 7.4 % HEMOGLOBIN [id number] 00:00:00 Test Item Value Reference Range Interpretation Comments HEMOGLOBIN A1c (test code = 44198) 7.4 % HEMOGLOBIN [id number] 00:00:00 Test Item Value Reference Range Interpretation Comments HEMOGLOBIN A1c (test code = 22449) 7.4 % HEMOGLOBIN [id number] 00:00:00 Test Item Value Reference Range Interpretation Comments HEMOGLOBIN A1c (test code = 03849) 7.4 % HEMOGLOBIN [id number] 00:00:00 Test Item Value Reference Range Interpretation Comments HEMOGLOBIN A1c (test code = 25239) 7.4 % HEMOGLOBIN [id number] 00:00:00 Test Item Value Reference Range Interpretation Comments HEMOGLOBIN A1c (test code = 87710) 7.4 % HEMOGLOBIN [id number] 00:00:00 Test Item Value Reference Range Interpretation Comments HEMOGLOBIN A1c (test code = 07078) 7.4 % HEMOGLOBIN [id number] 00:00:00 Test Item Value Reference Range Interpretation Comments HEMOGLOBIN A1c (test code = 78026) 7.4 % HEMOGLOBIN [id number] 00:00:00 Test Item Value Reference Range Interpretation Comments HEMOGLOBIN A1c (test code = 43566) 7.4 % HEMOGLOBIN [id number] 00:00:00 Test Item Value Reference Range Interpretation Comments HEMOGLOBIN A1c (test code = 45845) 7.4 % HEMOGLOBIN [id number] 00:00:00 Test Item Value Reference Range Interpretation Comments HEMOGLOBIN A1c (test code = 90380) 7.4 % CBC W/AUTO [id number] 00:00:00 Test Item Value Reference Range Interpretation [...] code = 1015) 230 K/UL CBC W/AUTO [id number] 00:00:00 Test Item Value Reference Range Interpretation [...] code = 1015) 230 K/UL CBC W/AUTO [id number] 00:00:00 Test Item Value Reference Range Interpretation [...] code = 1015) 230 K/UL CBC W/AUTO [id number] 00:00:00 Test Item Value Reference Range Interpretation [...] code = 1015) 230 K/UL CBC W/AUTO [id number] 00:00:00 Test Item Value Reference Range Interpretation [...] code = 1015) 230 K/UL CBC W/AUTO [id number] 00:00:00 Test Item Value Reference Range Interpretation [...] code = 1015) 230 K/UL CBC W/AUTO [id number] 00:00:00 Test Item Value Reference Range Interpretation [...] code = 1015) 230 K/UL CBC W/AUTO [id number] 00:00:00 Test Item Value Reference Range Interpretation [...] code = 1015) 230 K/UL CBC W/AUTO [id number] 00:00:00 Test Item Value Reference Range Interpretation [...] code = 1015) 230 K/UL CBC W/AUTO [id number] 00:00:00 Test Item Value Reference Range Interpretation [...] code = 1015) 230 K/UL CBC W/AUTO [id number] 00:00:00 Test Item Value Reference Range Interpretation [...] code = 1015) 230 K/UL CBC W/AUTO [id number] 00:00:00 Test Item Value Reference Range Interpretation [...] code = 1015) 230 K/UL CBC W/AUTO [id number] 00:00:00 Test Item Value Reference Range Interpretation [...] code = 1015) 230 K/UL CBC W/AUTO [id number] 00:00:00 Test Item Value Reference Range Interpretation [...] code = 1015) 230 K/UL CBC W/AUTO [id number] 00:00:00 Test Item Value Reference Range Interpretation [...] code = 1015) 230 K/UL CBC W/AUTO [id number] 00:00:00 Test Item Value Reference Range Interpretation [...] code = 1015) 230 K/UL CBC W/AUTO [id number] 00:00:00 Test Item Value Reference Range Interpretation [...] code = 1015) 230 K/UL CBC W/AUTO [id number] 00:00:00 Test Item Value Reference Range Interpretation [...] code = 1015) 230 K/UL CBC W/AUTO [id number] 00:00:00 Test Item Value Reference Range Interpretation [...] code = 1015) 230 K/UL CBC W/AUTO [id number] 00:00:00 Test Item Value Reference Range Interpretation [...] code = 1015) 230 K/UL CBC W/AUTO [id number] 00:00:00 Test Item Value Reference Range Interpretation [...] code = 1015) 230 K/UL CBC W/AUTO [id number] 00:00:00 Test Item Value Reference Range Interpretation [...] (test code = 1015) 230 K/UL LIPID [id number] 00:00:00 Test Item Value Reference Range Interpretation Comments CHOLESTEROL (test code = 2210) 184 MG/DL TRIGLYCERIDES (test code = 2232) 222 MG/DL HDL CHOLESTEROL (test code = 2220) 52 MG/DL CALC LDL CHOL (test code = 2237) 98 MG/DL RISK RATIO LDL/HDL (test code = 1.88 RATIO 2238) LIPID [id number] 00:00:00 Test Item Value Reference Range Interpretation Comments CHOLESTEROL (test code = 2210) 184 MG/DL TRIGLYCERIDES (test code = 2232) 222 MG/DL HDL CHOLESTEROL (test code = 2220) 52 MG/DL CALC LDL CHOL (test code = 2237) 98 MG/DL RISK RATIO LDL/HDL (test code = 1.88 RATIO 2238) HEMOGLOBIN [id number] 00:00:00 Test Item Value Reference Range Interpretation Comments HEMOGLOBIN A1c (test code = 48581) 8.4 % HEMOGLOBIN [id number] 00:00:00 Test Item Value Reference Range Interpretation Comments HEMOGLOBIN A1c (test code = 66510) 8.4 % HEMOGLOBIN [id number] 00:00:00 Test Item Value Reference Range Interpretation Comments HEMOGLOBIN A1c (test code = 24666) 8.4 % COMPREHENSIVE METABOLIC [id number] 00:00:00 Test Item Value Reference Range Interpretation Comments GLUCOSE (test code = 2217) 204 MG/DL BUN (test code = 2208) 26 MG/DL CREATININE (test code = 2214) 1.21 MG/DL eGFR AMER. (test code 52 ML/MIN/1.73 = 61242) eGFR NON- AMER. (test 45 ML/MIN/1.73 code = 60896) CALC BUN/CREAT (test code = 21 RATIO [...] code = 2219) 8 U/L COMPREHENSIVE METABOLIC [id number] 00:00:00 Test Item Value Reference Range Interpretation Comments GLUCOSE (test code = 2217) 204 MG/DL BUN (test code = 2208) 26 MG/DL CREATININE (test code = 2214) 1.21 MG/DL eGFR AMER. (test code 52 ML/MIN/1.73 = 98770) eGFR NON- AMER. (test 45 ML/MIN/1.73 code = 76461) CALC BUN/CREAT (test code = 21 RATIO [...] (test code = 2219) 8 U/L LIPID [id number] 00:00:00 Test Item Value Reference Range Interpretation Comments CHOLESTEROL (test code = 2210) 184 MG/DL TRIGLYCERIDES (test code = 2232) 222 MG/DL HDL CHOLESTEROL (test code = 2220) 52 MG/DL CALC LDL CHOL (test code = 2237) 98 MG/DL RISK RATIO LDL/HDL (test code = 1.88 RATIO 2238) LIPID [id number] 00:00:00 Test Item Value Reference Range Interpretation Comments CHOLESTEROL (test code = 2210) 184 MG/DL TRIGLYCERIDES (test code = 2232) 222 MG/DL HDL CHOLESTEROL (test code = 2220) 52 MG/DL CALC LDL CHOL (test code = 2237) 98 MG/DL RISK RATIO LDL/HDL (test code = 1.88 RATIO 2238) HEMOGLOBIN [id number] 00:00:00 Test Item Value Reference Range Interpretation Comments HEMOGLOBIN A1c (test code = 40920) 8.4 % HEMOGLOBIN [id number] 00:00:00 Test Item Value Reference Range Interpretation Comments HEMOGLOBIN A1c (test code = 12917) 8.4 % HEMOGLOBIN [id number] 00:00:00 Test Item Value Reference Range Interpretation Comments HEMOGLOBIN A1c (test code = 39844) 8.4 % HEMOGLOBIN [id number] 00:00:00 Test Item Value Reference Range Interpretation Comments HEMOGLOBIN A1c (test code = 80210) 8.4 % HEMOGLOBIN [id number] 00:00:00 Test Item Value Reference Range Interpretation Comments HEMOGLOBIN A1c (test code = 23502) 8.4 % COMPREHENSIVE METABOLIC [id number] 00:00:00 Test Item Value Reference Range Interpretation Comments GLUCOSE (test code = 2217) 204 MG/DL BUN (test code = 2208) 26 MG/DL CREATININE (test code = 2214) 1.21 MG/DL eGFR AMER. (test code 52 ML/MIN/1.73 = 89820) eGFR NON- AMER. (test 45 ML/MIN/1.73 code = 91916) CALC BUN/CREAT (test code = 21 RATIO [...] code = 2219) 8 U/L COMPREHENSIVE METABOLIC [id number] 00:00:00 Test Item Value Reference Range Interpretation Comments GLUCOSE (test code = 2217) 204 MG/DL BUN (test code = 2208) 26 MG/DL CREATININE (test code = 2214) 1.21 MG/DL eGFR AMER. (test code 52 ML/MIN/1.73 = 23288) eGFR NON- AMER. (test 45 ML/MIN/1.73 code = 92898) CALC BUN/CREAT (test code = 21 RATIO [...] (test code = 2219) 8 U/L LIPID [id number] 00:00:00 Test Item Value Reference Range Interpretation Comments CHOLESTEROL (test code = 2210) 184 MG/DL TRIGLYCERIDES (test code = 2232) 222 MG/DL HDL CHOLESTEROL (test code = 2220) 52 MG/DL CALC LDL CHOL (test code = 2237) 98 MG/DL RISK RATIO LDL/HDL (test code = 1.88 RATIO 2238) LIPID [id number] 00:00:00 Test Item Value Reference Range Interpretation Comments CHOLESTEROL (test code = 2210) 184 MG/DL TRIGLYCERIDES (test code = 2232) 222 MG/DL HDL CHOLESTEROL (test code = 2220) 52 MG/DL CALC LDL CHOL (test code = 2237) 98 MG/DL RISK RATIO LDL/HDL (test code = 1.88 RATIO 2238) COMPREHENSIVE METABOLIC [id number] 00:00:00 Test Item Value Reference Range Interpretation Comments GLUCOSE (test code = 2217) 204 MG/DL BUN (test code = 2208) 26 MG/DL CREATININE (test code = 2214) 1.21 MG/DL eGFR AMER. (test code 52 ML/MIN/1.73 = 75610) eGFR NON- AMER. (test 45 ML/MIN/1.73 code = 25083) CALC BUN/CREAT (test code = 21 RATIO [...] (test code = 2219) 8 U/L HEMOGLOBIN [id number] 00:00:00 Test Item Value Reference Range Interpretation Comments HEMOGLOBIN A1c (test code = 27247) 8.4 % HEMOGLOBIN [id number] 00:00:00 Test Item Value Reference Range Interpretation Comments HEMOGLOBIN A1c (test code = 07554) 8.4 % HEMOGLOBIN [id number] 00:00:00 Test Item Value Reference Range Interpretation Comments HEMOGLOBIN A1c (test code = 93910) 8.4 % LIPID [id number] 00:00:00 Test Item Value Reference Range Interpretation Comments CHOLESTEROL (test code = 2210) 184 MG/DL TRIGLYCERIDES (test code = 2232) 222 MG/DL HDL CHOLESTEROL (test code = 2220) 52 MG/DL CALC LDL CHOL (test code = 2237) 98 MG/DL RISK RATIO LDL/HDL (test code = 1.88 RATIO 2238) COMPREHENSIVE METABOLIC [id number] 00:00:00 Test Item Value Reference Range Interpretation Comments GLUCOSE (test code = 2217) 204 MG/DL BUN (test code = 2208) 26 MG/DL CREATININE (test code = 2214) 1.21 MG/DL eGFR AMER. (test code 52 ML/MIN/1.73 = 27410) eGFR NON- AMER. (test 45 ML/MIN/1.73 code = 76302) CALC BUN/CREAT (test code = 21 RATIO [...] code = 2219) 8 U/L COMPREHENSIVE METABOLIC [id number] 00:00:00 Test Item Value Reference Range Interpretation Comments GLUCOSE (test code = 2217) 204 MG/DL BUN (test code = 2208) 26 MG/DL CREATININE (test code = 2214) 1.21 MG/DL eGFR AMER. (test code 52 ML/MIN/1.73 = 95417) eGFR NON- AMER. (test 45 ML/MIN/1.73 code = 73384) CALC BUN/CREAT (test code = 21 RATIO [...] (test code = 2219) 8 U/L LIPID [id number] 00:00:00 Test Item Value Reference Range Interpretation Comments CHOLESTEROL (test code = 2210) 184 MG/DL TRIGLYCERIDES (test code = 2232) 222 MG/DL HDL CHOLESTEROL (test code = 2220) 52 MG/DL CALC LDL CHOL (test code = 2237) 98 MG/DL RISK RATIO LDL/HDL (test code = 1.88 RATIO 2238) LIPID [id number] 00:00:00 Test Item Value Reference Range Interpretation Comments CHOLESTEROL (test code = 2210) 184 MG/DL TRIGLYCERIDES (test code = 2232) 222 MG/DL HDL CHOLESTEROL (test code = 2220) 52 MG/DL CALC LDL CHOL (test code = 2237) 98 MG/DL RISK RATIO LDL/HDL (test code = 1.88 RATIO 2238) HEMOGLOBIN [id number] 00:00:00 Test Item Value Reference Range Interpretation Comments HEMOGLOBIN A1c (test code = 22889) 8.4 % HEMOGLOBIN [id number] 00:00:00 Test Item Value Reference Range Interpretation Comments HEMOGLOBIN A1c (test code = 95638) 8.4 % HEMOGLOBIN [id number] 00:00:00 Test Item Value Reference Range Interpretation Comments HEMOGLOBIN A1c (test code = 47273) 8.4 % COMPREHENSIVE METABOLIC [id number] 00:00:00 Test Item Value Reference Range Interpretation Comments GLUCOSE (test code = 2217) 204 MG/DL BUN (test code = 8) 26 MG/DL CREATININE (test code = 2214) 1.21 MG/DL eGFR AMER. (test code 52 ML/MIN/1.73 = 46959) eGFR NON- AMER. (test 45 ML/MIN/1.73 code = 53789) CALC BUN/CREAT (test code = 21 RATIO [...] code = 2219) 8 U/L COMPREHENSIVE METABOLIC [id number] 00:00:00 Test Item Value Reference Range Interpretation Comments GLUCOSE (test code = 2217) 204 MG/DL BUN (test code = 2208) 26 MG/DL CREATININE (test code = 2214) 1.21 MG/DL eGFR AMER. (test code 52 ML/MIN/1.73 = 55727) eGFR NON- AMER. (test 45 ML/MIN/1.73 code = 65383) CALC BUN/CREAT (test code = 21 RATIO [...] (test code = 2219) 8 U/L LIPID [id number] 00:00:00 Test Item Value Reference Range Interpretation Comments CHOLESTEROL (test code = 2210) 184 MG/DL TRIGLYCERIDES (test code = 2232) 222 MG/DL HDL CHOLESTEROL (test code = 2220) 52 MG/DL CALC LDL CHOL (test code = 2237) 98 MG/DL RISK RATIO LDL/HDL (test code = 1.88 RATIO 2238) LIPID [id number] 00:00:00 Test Item Value Reference Range Interpretation Comments CHOLESTEROL (test code = 2210) 184 MG/DL TRIGLYCERIDES (test code = 2232) 222 MG/DL HDL CHOLESTEROL (test code = 2220) 52 MG/DL CALC LDL CHOL (test code = 2237) 98 MG/DL RISK RATIO LDL/HDL (test code = 1.88 RATIO 2238) HEMOGLOBIN [id number] 00:00:00 Test Item Value Reference Range Interpretation Comments HEMOGLOBIN A1c (test code = 56147) 8.4 % HEMOGLOBIN [id number] 00:00:00 Test Item Value Reference Range Interpretation Comments HEMOGLOBIN A1c (test code = 09231) 8.4 % COMPREHENSIVE METABOLIC [id number] 00:00:00 Test Item Value Reference Range Interpretation Comments GLUCOSE (test code = 2217) 204 MG/DL BUN (test code = 2208) 26 MG/DL CREATININE (test code = 2214) 1.21 MG/DL eGFR AMER. (test code 52 ML/MIN/1.73 = 32168) eGFR NON- AMER. (test 45 ML/MIN/1.73 code = 11202) CALC BUN/CREAT (test code = 21 RATIO [...] (test code = 2219) 8 U/L LIPID [id number] 00:00:00 Test Item Value Reference Range Interpretation Comments CHOLESTEROL (test code = 2210) 184 MG/DL TRIGLYCERIDES (test code = 2232) 222 MG/DL HDL CHOLESTEROL (test code = 2220) 52 MG/DL CALC LDL CHOL (test code = 2237) 98 MG/DL RISK RATIO LDL/HDL (test code = 1.88 RATIO 2238) HEMOGLOBIN [id number] 00:00:00 Test Item Value Reference Range Interpretation Comments HEMOGLOBIN A1c (test code = 80402) 8.4 % HEMOGLOBIN [id number] 00:00:00 Test Item Value Reference Range Interpretation Comments HEMOGLOBIN A1c (test code = 96998) 8.4 % HEMOGLOBIN [id number] 00:00:00 Test Item Value Reference Range Interpretation Comments HEMOGLOBIN A1c (test code = 13358) 8.4 % COMPREHENSIVE METABOLIC [id number] 00:00:00 Test Item Value Reference Range Interpretation Comments GLUCOSE (test code = 2217) 204 MG/DL BUN (test code = 2208) 26 MG/DL CREATININE (test code = 2214) 1.21 MG/DL eGFR AMER. (test code 52 ML/MIN/1.73 = 38978) eGFR NON- AMER. (test 45 ML/MIN/1.73 code = 10427) CALC BUN/CREAT (test code = 21 RATIO [...] code = 2219) 8 U/L COMPREHENSIVE METABOLIC [id number] 00:00:00 Test Item Value Reference Range Interpretation Comments GLUCOSE (test code = 2217) 204 MG/DL BUN (test code = 2208) 26 MG/DL CREATININE (test code = 2214) 1.21 MG/DL eGFR AMER. (test code 52 ML/MIN/1.73 = 93938) eGFR NON- AMER. (test 45 ML/MIN/1.73 code = 54926) CALC BUN/CREAT (test code = 21 RATIO [...] (test code = 2219) 8 U/L LIPID [id number] 00:00:00 Test Item Value Reference Range Interpretation Comments CHOLESTEROL (test code = 2210) 184 MG/DL TRIGLYCERIDES (test code = 2232) 222 MG/DL HDL CHOLESTEROL (test code = 2220) 52 MG/DL CALC LDL CHOL (test code = 2237) 98 MG/DL RISK RATIO LDL/HDL (test code = 1.88 RATIO 2238) LIPID [id number] 00:00:00 Test Item Value Reference Range Interpretation Comments CHOLESTEROL (test code = 2210) 184 MG/DL TRIGLYCERIDES (test code = 2232) 222 MG/DL HDL CHOLESTEROL (test code = 2220) 52 MG/DL CALC LDL CHOL (test code = 2237) 98 MG/DL RISK RATIO LDL/HDL (test code = 1.88 RATIO 2238) HEMOGLOBIN [id number] 00:00:00 Test Item Value Reference Range Interpretation Comments HEMOGLOBIN A1c (test code = 60537) 8.4 % HEMOGLOBIN [id number] 00:00:00 Test Item Value Reference Range Interpretation Comments HEMOGLOBIN A1c (test code = 34225) 8.4 % HEMOGLOBIN [id number] 00:00:00 Test Item Value Reference Range Interpretation Comments HEMOGLOBIN A1c (test code = 34244) 8.4 % COMPREHENSIVE METABOLIC [id number] 00:00:00 Test Item Value Reference Range Interpretation Comments GLUCOSE (test code = 2217) 204 MG/DL BUN (test code = 2208) 26 MG/DL CREATININE (test code = 2214) 1.21 MG/DL eGFR AMER. (test code 52 ML/MIN/1.73 = 13657) eGFR NON- AMER. (test 45 ML/MIN/1.73 code = 67164) CALC BUN/CREAT (test code = 21 RATIO [...] code = 2219) 8 U/L COMPREHENSIVE METABOLIC [id number] 00:00:00 Test Item Value Reference Range Interpretation Comments GLUCOSE (test code = 2217) 204 MG/DL BUN (test code = 2208) 26 MG/DL CREATININE (test code = 2214) 1.21 MG/DL eGFR AMER. (test code 52 ML/MIN/1.73 = 87398) eGFR NON- AMER. (test 45 ML/MIN/1.73 code = 62722) CALC BUN/CREAT (test code = 21 RATIO [...] = 0.3 MG/DL 7) ALKALINE PHOSPHATASE (test 69 U/L code = 2204) AST (test code = 2218) 11 U/L ALT (test code = 2219) 8 U/L MICROALBUMIN/CREATININE, RANDOM AND [id number] 00:00:00 Test Item Value Reference Range Interpretation Comments CREATININE, URINE, CONC. (test 190.3 MG/DL code = 2072) ALBUMIN, URINE, RANDOM (test code 135.3 MG/DL = 51537) CALC ALBUMIN/CREAT, RND (test 711 MG/G code = 03247) MICROALBUMIN/CREATININE, RANDOM AND [id number] 00:00:00 Test Item Value Reference Range Interpretation Comments CREATININE, URINE, CONC. (test 190.3 MG/DL code = 2072) ALBUMIN, URINE, RANDOM (test code 135.3 MG/DL = 88783) CALC ALBUMIN/CREAT, RND (test 711 MG/G code = 87968) MICROALBUMIN/CREATININE, RANDOM AND [id number] 00:00:00 Test Item Value Reference Range Interpretation Comments CREATININE, URINE, CONC. (test 190.3 MG/DL code = 2072) ALBUMIN, URINE, RANDOM (test code 135.3 MG/DL = 49417) CALC ALBUMIN/CREAT, RND (test 711 MG/G code = 19077) MICROALBUMIN/CREATININE, RANDOM AND [id number] 00:00:00 Test Item Value Reference Range Interpretation Comments CREATININE, URINE, CONC. (test 190.3 MG/DL code = 2072) ALBUMIN, URINE, RANDOM (test code 135.3 MG/DL = 34165) CALC ALBUMIN/CREAT, RND (test 711 MG/G code = 23492) MICROALBUMIN/CREATININE, RANDOM AND [id number] 00:00:00 Test Item Value Reference Range Interpretation Comments CREATININE, URINE, CONC. (test 190.3 MG/DL code = 2072) ALBUMIN, URINE, RANDOM (test code 135.3 MG/DL = 46519) CALC ALBUMIN/CREAT, RND (test 711 MG/G code = 79918) MICROALBUMIN/CREATININE, RANDOM AND [id number] 00:00:00 Test Item Value Reference Range Interpretation Comments CREATININE, URINE, CONC. (test 190.3 MG/DL code = 2072) ALBUMIN, URINE, RANDOM (test code 135.3 MG/DL = 94741) CALC ALBUMIN/CREAT, RND (test 711 MG/G code = 87827) MICROALBUMIN/CREATININE, RANDOM AND [id number] 00:00:00 Test Item Value Reference Range Interpretation Comments CREATININE, URINE, CONC. (test 190.3 MG/DL code = 2072) ALBUMIN, URINE, RANDOM (test code 135.3 MG/DL = 70636) CALC ALBUMIN/CREAT, RND (test 711 MG/G code = 83355) MICROALBUMIN/CREATININE, RANDOM AND [id number] 00:00:00 Test Item Value Reference Range Interpretation Comments CREATININE, URINE, CONC. (test 190.3 MG/DL code = 2072) ALBUMIN, URINE, RANDOM (test code 135.3 MG/DL = 70182) CALC ALBUMIN/CREAT, RND (test 711 MG/G code = 19079) MICROALBUMIN/CREATININE, RANDOM AND [id number] 00:00:00 Test Item Value Reference Range Interpretation Comments CREATININE, URINE, CONC. (test 190.3 MG/DL code = 2072) ALBUMIN, URINE, RANDOM (test code 135.3 MG/DL = 98412) CALC ALBUMIN/CREAT, RND (test 711 MG/G code = 02210) MICROALBUMIN/CREATININE, RANDOM AND [id number] 00:00:00 Test Item Value Reference Range Interpretation Comments CREATININE, URINE, CONC. (test 190.3 MG/DL code = 2072) ALBUMIN, URINE, RANDOM (test code 135.3 MG/DL = 74344) CALC ALBUMIN/CREAT, RND (test 711 MG/G code = 91971) MICROALBUMIN/CREATININE, RANDOM AND [id number] 00:00:00 Test Item Value Reference Range Interpretation Comments CREATININE, URINE, CONC. (test 190.3 MG/DL code = 2072) ALBUMIN, URINE, RANDOM (test code 135.3 MG/DL = 76619) CALC ALBUMIN/CREAT, RND (test 711 MG/G code = 60451) MICROALBUMIN/CREATININE, RANDOM AND [id number] 00:00:00 Test Item Value Reference Range Interpretation Comments CREATININE, URINE, CONC. (test 190.3 MG/DL code = 2072) ALBUMIN, URINE, RANDOM (test code 135.3 MG/DL = 14177) CALC ALBUMIN/CREAT, RND (test 711 MG/G code = 88655) MICROALBUMIN/CREATININE, RANDOM AND [id number] 00:00:00 Test Item Value Reference Range Interpretation Comments CREATININE, URINE, CONC. (test 190.3 MG/DL code = 2072) ALBUMIN, URINE, RANDOM (test code 135.3 MG/DL = 31362) CALC ALBUMIN/CREAT, RND (test 711 MG/G code = 26140) MICROALBUMIN/CREATININE, RANDOM AND [id number] 00:00:00 Test Item Value Reference Range Interpretation Comments CREATININE, URINE, CONC. (test 190.3 MG/DL code = 2072) ALBUMIN, URINE, RANDOM (test code 135.3 MG/DL = 20461) CALC ALBUMIN/CREAT, RND (test 711 MG/G code = 34095) HEMOGLOBIN [id number] 00:00:00 Test Item Value Reference Range Interpretation Comments HEMOGLOBIN A1c (test code = 33733) 7.9 % HEMOGLOBIN [id number] 00:00:00 Test Item Value Reference Range Interpretation Comments HEMOGLOBIN A1c (test code = 41390) 7.9 % HEMOGLOBIN [id number] 00:00:00 Test Item Value Reference Range Interpretation Comments HEMOGLOBIN A1c (test code = 09037) 7.9 % LIPID [id number] 00:00:00 Test Item Value Reference Range Interpretation Comments CHOLESTEROL (test code = 2210) 227 MG/DL TRIGLYCERIDES (test code = 2232) 165 MG/DL HDL CHOLESTEROL (test code = 2220) 58 MG/DL CALC LDL CHOL (test code = 2237) 139 MG/DL RISK RATIO LDL/HDL (test code = 2.40 RATIO 2238) LIPID [id number] 00:00:00 Test Item Value Reference Range Interpretation Comments CHOLESTEROL (test code = 2210) 227 MG/DL TRIGLYCERIDES (test code = 2232) 165 MG/DL HDL CHOLESTEROL (test code = 2220) 58 MG/DL CALC LDL CHOL (test code = 2237) 139 MG/DL RISK RATIO LDL/HDL (test code = 2.40 RATIO 2238) COMPREHENSIVE METABOLIC [id number] 00:00:00 Test Item Value Reference Range Interpretation Comments GLUCOSE (test code = 2217) 103 MG/DL BUN (test code = 2208) 25 MG/DL CREATININE (test code = 2214) 1.30 MG/DL eGFR AMER. (test code 48 ML/MIN/1.73 = 21279) eGFR NON- AMER. (test 41 ML/MIN/1.73 code = 36065) CALC BUN/CREAT (test code = 19 RATIO [...] code = 2219) 12 U/L COMPREHENSIVE METABOLIC [id number] 00:00:00 Test Item Value Reference Range Interpretation Comments GLUCOSE (test code = 2216) 103 MG/DL BUN (test code = 8) 25 MG/DL CREATININE (test code = 2214) 1.30 MG/DL eGFR AMER. (test code 48 ML/MIN/1.73 = 91888) eGFR NON- AMER. (test 41 ML/MIN/1.73 code = 64701) CALC BUN/CREAT (test code = 19 RATIO 223) SODIUM (test code = 2231) 141 MEQ/L [...] (test code = 2219) 12 U/L HEMOGLOBIN [id number] 00:00:00 Test Item Value Reference Range Interpretation Comments HEMOGLOBIN A1c (test code = 59819) 7.9 % HEMOGLOBIN [id number] 00:00:00 Test Item Value Reference Range Interpretation Comments HEMOGLOBIN A1c (test code = 62422) 7.9 % HEMOGLOBIN [id number] 00:00:00 Test Item Value Reference Range Interpretation Comments HEMOGLOBIN A1c (test code = 40990) 7.9 % HEMOGLOBIN [id number] 00:00:00 Test Item Value Reference Range Interpretation Comments HEMOGLOBIN A1c (test code = 41936) 7.9 % HEMOGLOBIN [id number] 00:00:00 Test Item Value Reference Range Interpretation Comments HEMOGLOBIN A1c (test code = 70292) 7.9 % LIPID [id number] 00:00:00 Test Item Value Reference Range Interpretation Comments CHOLESTEROL (test code = 2210) 227 MG/DL TRIGLYCERIDES (test code = 2232) 165 MG/DL HDL CHOLESTEROL (test code = 2220) 58 MG/DL CALC LDL CHOL (test code = 2237) 139 MG/DL RISK RATIO LDL/HDL (test code = 2.40 RATIO 2238) LIPID [id number] 00:00:00 Test Item Value Reference Range Interpretation Comments CHOLESTEROL (test code = 2210) 227 MG/DL TRIGLYCERIDES (test code = 2232) 165 MG/DL HDL CHOLESTEROL (test code = 2220) 58 MG/DL CALC LDL CHOL (test code = 2237) 139 MG/DL RISK RATIO LDL/HDL (test code = 2.40 RATIO 2238) LIPID [id number] 00:00:00 Test Item Value Reference Range Interpretation Comments CHOLESTEROL (test code = 2210) 227 MG/DL TRIGLYCERIDES (test code = 2232) 165 MG/DL HDL CHOLESTEROL (test code = 2220) 58 MG/DL CALC LDL CHOL (test code = 2237) 139 MG/DL RISK RATIO LDL/HDL (test code = 2.40 RATIO 2238) COMPREHENSIVE METABOLIC [id number] 00:00:00 Test Item Value Reference Range Interpretation Comments GLUCOSE (test code = 2217) 103 MG/DL BUN (test code = 2208) 25 MG/DL CREATININE (test code = 2214) 1.30 MG/DL eGFR AMER. (test code 48 ML/MIN/1.73 = 68554) eGFR NON- AMER. (test 41 ML/MIN/1.73 code = 27024) CALC BUN/CREAT (test code = 19 RATIO [...] code = 2219) 12 U/L COMPREHENSIVE METABOLIC [id number] 00:00:00 Test Item Value Reference Range Interpretation Comments GLUCOSE (test code = 2217) 103 MG/DL BUN (test code = 2208) 25 MG/DL CREATININE (test code = 2214) 1.30 MG/DL eGFR AMER. (test code 48 ML/MIN/1.73 = 40698) eGFR NON- AMER. (test 41 ML/MIN/1.73 code = 60335) CALC BUN/CREAT (test code = 19 RATIO [...] code = 2219) 12 U/L COMPREHENSIVE METABOLIC [id number] 00:00:00 Test Item Value Reference Range Interpretation Comments GLUCOSE (test code = 2217) 103 MG/DL BUN (test code = 2208) 25 MG/DL CREATININE (test code = 2214) 1.30 MG/DL eGFR AMER. (test code 48 ML/MIN/1.73 = 03520) eGFR NON- AMER. (test 41 ML/MIN/1.73 code = 21446) CALC BUN/CREAT (test code = 19 RATIO [...] (test code = 2219) 12 U/L HEMOGLOBIN [id number] 00:00:00 Test Item Value Reference Range Interpretation Comments HEMOGLOBIN A1c (test code = 93740) 7.9 % HEMOGLOBIN [id number] 00:00:00 Test Item Value Reference Range Interpretation Comments HEMOGLOBIN A1c (test code = 30831) 7.9 % HEMOGLOBIN [id number] 00:00:00 Test Item Value Reference Range Interpretation Comments HEMOGLOBIN A1c (test code = 11742) 7.9 % LIPID [id number] 00:00:00 Test Item Value Reference Range Interpretation Comments CHOLESTEROL (test code = 2210) 227 MG/DL TRIGLYCERIDES (test code = 2232) 165 MG/DL HDL CHOLESTEROL (test code = 2220) 58 MG/DL CALC LDL CHOL (test code = 2237) 139 MG/DL RISK RATIO LDL/HDL (test code = 2.40 RATIO 2238) LIPID [id number] 00:00:00 Test Item Value Reference Range Interpretation Comments CHOLESTEROL (test code = 2210) 227 MG/DL TRIGLYCERIDES (test code = 2232) 165 MG/DL HDL CHOLESTEROL (test code = 2220) 58 MG/DL CALC LDL CHOL (test code = 2237) 139 MG/DL RISK RATIO LDL/HDL (test code = 2.40 RATIO 2238) COMPREHENSIVE METABOLIC [id number] 00:00:00 Test Item Value Reference Range Interpretation Comments GLUCOSE (test code = 2217) 103 MG/DL BUN (test code = 2208) 25 MG/DL CREATININE (test code = 2214) 1.30 MG/DL eGFR AMER. (test code 48 ML/MIN/1.73 = 88252) eGFR NON- AMER. (test 41 ML/MIN/1.73 code = 36569) CALC BUN/CREAT (test code = 19 RATIO [...] code = 2219) 12 U/L COMPREHENSIVE METABOLIC [id number] 00:00:00 Test Item Value Reference Range Interpretation Comments GLUCOSE (test code = 2217) 103 MG/DL BUN (test code = 2208) 25 MG/DL CREATININE (test code = 2214) 1.30 MG/DL eGFR AMER. (test code 48 ML/MIN/1.73 = 74657) eGFR NON- AMER. (test 41 ML/MIN/1.73 code = 04134) CALC BUN/CREAT (test code = 19 RATIO [...] (test code = 2219) 12 U/L HEMOGLOBIN [id number] 00:00:00 Test Item Value Reference Range Interpretation Comments HEMOGLOBIN A1c (test code = 01116) 7.9 % HEMOGLOBIN [id number] 00:00:00 Test Item Value Reference Range Interpretation Comments HEMOGLOBIN A1c (test code = 93804) 7.9 % HEMOGLOBIN [id number] 00:00:00 Test Item Value Reference Range Interpretation Comments HEMOGLOBIN A1c (test code = 98915) 7.9 % LIPID [id number] 00:00:00 Test Item Value Reference Range Interpretation Comments CHOLESTEROL (test code = 2210) 227 MG/DL TRIGLYCERIDES (test code = 2232) 165 MG/DL HDL CHOLESTEROL (test code = 2220) 58 MG/DL CALC LDL CHOL (test code = 2237) 139 MG/DL RISK RATIO LDL/HDL (test code = 2.40 RATIO 2238) LIPID [id number] 00:00:00 Test Item Value Reference Range Interpretation Comments CHOLESTEROL (test code = 2210) 227 MG/DL TRIGLYCERIDES (test code = 2232) 165 MG/DL HDL CHOLESTEROL (test code = 2220) 58 MG/DL CALC LDL CHOL (test code = 2237) 139 MG/DL RISK RATIO LDL/HDL (test code = 2.40 RATIO 2238) COMPREHENSIVE METABOLIC [id number] 00:00:00 Test Item Value Reference Range Interpretation Comments GLUCOSE (test code = 2217) 103 MG/DL BUN (test code = 2208) 25 MG/DL CREATININE (test code = 2214) 1.30 MG/DL eGFR AMER. (test code 48 ML/MIN/1.73 = 56934) eGFR NON- AMER. (test 41 ML/MIN/1.73 code = 66070) CALC BUN/CREAT (test code = 19 RATIO [...] code = 2219) 12 U/L COMPREHENSIVE METABOLIC [id number] 00:00:00 Test Item Value Reference Range Interpretation Comments GLUCOSE (test code = 2217) 103 MG/DL BUN (test code = 2208) 25 MG/DL CREATININE (test code = 2214) 1.30 MG/DL eGFR AMER. (test code 48 ML/MIN/1.73 = 30358) eGFR NON- AMER. (test 41 ML/MIN/1.73 code = 32269) CALC BUN/CREAT (test code = 19 RATIO [...] (test code = 2219) 12 U/L HEMOGLOBIN [id number] 00:00:00 Test Item Value Reference Range Interpretation Comments HEMOGLOBIN A1c (test code = 40279) 7.9 % HEMOGLOBIN [id number] 00:00:00 Test Item Value Reference Range Interpretation Comments HEMOGLOBIN A1c (test code = 07792) 7.9 % LIPID [id number] 00:00:00 Test Item Value Reference Range Interpretation Comments CHOLESTEROL (test code = 2210) 227 MG/DL TRIGLYCERIDES (test code = 2232) 165 MG/DL HDL CHOLESTEROL (test code = 2220) 58 MG/DL CALC LDL CHOL (test code = 2237) 139 MG/DL RISK RATIO LDL/HDL (test code = 2.40 RATIO 2238) COMPREHENSIVE METABOLIC [id number] 00:00:00 Test Item Value Reference Range Interpretation Comments GLUCOSE (test code = 2217) 103 MG/DL BUN (test code = 2208) 25 MG/DL CREATININE (test code = 2214) 1.30 MG/DL eGFR AMER. (test code 48 ML/MIN/1.73 = 27615) eGFR NON- AMER. (test 41 ML/MIN/1.73 code = 14329) CALC BUN/CREAT (test code = 19 RATIO [...] (test code = 2219) 12 U/L HEMOGLOBIN [id number] 00:00:00 Test Item Value Reference Range Interpretation Comments HEMOGLOBIN A1c (test code = 18612) 7.9 % HEMOGLOBIN [id number] 00:00:00 Test Item Value Reference Range Interpretation Comments HEMOGLOBIN A1c (test code = 01121) 7.9 % HEMOGLOBIN [id number] 00:00:00 Test Item Value Reference Range Interpretation Comments HEMOGLOBIN A1c (test code = 98022) 7.9 % LIPID [id number] 00:00:00 Test Item Value Reference Range Interpretation Comments CHOLESTEROL (test code = 2210) 227 MG/DL TRIGLYCERIDES (test code = 2232) 165 MG/DL HDL CHOLESTEROL (test code = 2220) 58 MG/DL CALC LDL CHOL (test code = 2237) 139 MG/DL RISK RATIO LDL/HDL (test code = 2.40 RATIO 2238) LIPID [id number] 00:00:00 Test Item Value Reference Range Interpretation Comments CHOLESTEROL (test code = 2210) 227 MG/DL TRIGLYCERIDES (test code = 2232) 165 MG/DL HDL CHOLESTEROL (test code = 2220) 58 MG/DL CALC LDL CHOL (test code = 2237) 139 MG/DL RISK RATIO LDL/HDL (test code = 2.40 RATIO 2238) COMPREHENSIVE METABOLIC [id number] 00:00:00 Test Item Value Reference Range Interpretation Comments GLUCOSE (test code = 2217) 103 MG/DL BUN (test code = 2208) 25 MG/DL CREATININE (test code = 2214) 1.30 MG/DL eGFR AMER. (test code 48 ML/MIN/1.73 = 01958) eGFR NON- AMER. (test 41 ML/MIN/1.73 code = 37530) CALC BUN/CREAT (test code = 19 RATIO [...] code = 2219) 12 U/L COMPREHENSIVE METABOLIC [id number] 00:00:00 Test Item Value Reference Range Interpretation Comments GLUCOSE (test code = 2217) 103 MG/DL BUN (test code = 2208) 25 MG/DL CREATININE (test code = 2214) 1.30 MG/DL eGFR AMER. (test code 48 ML/MIN/1.73 = 68209) eGFR NON- AMER. (test 41 ML/MIN/1.73 code = 46259) CALC BUN/CREAT (test code = 19 RATIO [...] CALC GLOBULIN (test code = 3.6 G/DL 224) CALC A/G RATIO (test code = 1.3 RATIO 2234) BILIRUBIN, TOTAL (test code = 0.4 MG/DL 2206) ALKALINE PHOSPHATASE (test 79 U/L code = 2204) AST (test code = 2218) 16 U/L ALT (test code = 2219) 12 U/L HEMOGLOBIN [id number] 00:00:00 Test Item Value Reference Range Interpretation Comments HEMOGLOBIN A1c (test code = 49633) 7.9 % HEMOGLOBIN [id number] 00:00:00 Test Item Value Reference Range Interpretation Comments HEMOGLOBIN A1c (test code = 12360) 7.9 % HEMOGLOBIN [id number] 00:00:00 Test Item Value Reference Range Interpretation Comments HEMOGLOBIN A1c (test code = 00811) 7.9 % LIPID [id number] 00:00:00 Test Item Value Reference Range Interpretation Comments CHOLESTEROL (test code = 2210) 227 MG/DL TRIGLYCERIDES (test code = 2232) 165 MG/DL HDL CHOLESTEROL (test code = 2220) 58 MG/DL CALC LDL CHOL (test code = 2237) 139 MG/DL RISK RATIO LDL/HDL (test code = 2.40 RATIO 2238) LIPID [id number] 00:00:00 Test Item Value Reference Range Interpretation Comments CHOLESTEROL (test code = 2210) 227 MG/DL TRIGLYCERIDES (test code = 2232) 165 MG/DL HDL CHOLESTEROL (test code = 2220) 58 MG/DL CALC LDL CHOL (test code = 2237) 139 MG/DL RISK RATIO LDL/HDL (test code = 2.40 RATIO 2238) COMPREHENSIVE METABOLIC [id number] 00:00:00 Test Item Value Reference Range Interpretation Comments GLUCOSE (test code = 2217) 103 MG/DL BUN (test code = 2208) 25 MG/DL CREATININE (test code = 2214) 1.30 MG/DL eGFR AMER. (test code 48 ML/MIN/1.73 = 99338) eGFR NON- AMER. (test 41 ML/MIN/1.73 code = 20688) CALC BUN/CREAT (test code = 19 RATIO [...] code = 2219) 12 U/L COMPREHENSIVE METABOLIC [id number] 00:00:00 Test Item Value Reference Range Interpretation Comments GLUCOSE (test code = 2217) 103 MG/DL BUN (test code = 2208) 25 MG/DL CREATININE (test code = 2214) 1.30 MG/DL eGFR AMER. (test code 48 ML/MIN/1.73 = 10971) eGFR NON- AMER. (test 41 ML/MIN/1.73 code = 30997) CALC BUN/CREAT (test code = 19 RATIO [...] code = 2219) 12 U/L COMPREHENSIVE METABOLIC [id number] 00:00:00 Test Item Value Reference Range Interpretation Comments GLUCOSE (test code = 2217) 138 MG/DL BUN (test code = 2208) 33 MG/DL CREATININE (test code = 2214) 1.25 MG/DL eGFR AMER. (test code 50 ML/MIN/1.73 = 18537) eGFR NON- AMER. (test 43 ML/MIN/1.73 code = 36236) CALC BUN/CREAT (test code = 26 RATIO [...] code = 2219) 12 U/L COMPREHENSIVE METABOLIC [id number] 00:00:00 Test Item Value Reference Range Interpretation Comments GLUCOSE (test code = 2217) 138 MG/DL BUN (test code = 2208) 33 MG/DL CREATININE (test code = 2214) 1.25 MG/DL eGFR AMER. (test code 50 ML/MIN/1.73 = 18647) eGFR NON- AMER. (test 43 ML/MIN/1.73 code = 59025) CALC BUN/CREAT (test code = 26 RATIO [...] (test code = 2219) 12 U/L LIPID [id number] 00:00:00 Test Item Value Reference Range Interpretation Comments CHOLESTEROL (test code = 2210) 211 MG/DL TRIGLYCERIDES (test code = 2232) 245 MG/DL HDL CHOLESTEROL (test code = 2220) 52 MG/DL CALC LDL CHOL (test code = 2237) 122 MG/DL RISK RATIO LDL/HDL (test code = 2.35 RATIO 2238) LIPID [id number] 00:00:00 Test Item Value Reference Range Interpretation Comments CHOLESTEROL (test code = 2210) 211 MG/DL TRIGLYCERIDES (test code = 2232) 245 MG/DL HDL CHOLESTEROL (test code = 2220) 52 MG/DL CALC LDL CHOL (test code = 2237) 122 MG/DL RISK RATIO LDL/HDL (test code = 2.35 RATIO 2238) COMPREHENSIVE METABOLIC [id number] 00:00:00 Test Item Value Reference Range Interpretation Comments GLUCOSE (test code = 2217) 138 MG/DL BUN (test code = 2208) 33 MG/DL CREATININE (test code = 2214) 1.25 MG/DL eGFR AMER. (test code 50 ML/MIN/1.73 = 07602) eGFR NON- AMER. (test 43 ML/MIN/1.73 code = 68044) CALC BUN/CREAT (test code = 26 RATIO [...] code = 2219) 12 U/L COMPREHENSIVE METABOLIC [id number] 00:00:00 Test Item Value Reference Range Interpretation Comments GLUCOSE (test code = 2217) 138 MG/DL BUN (test code = 2208) 33 MG/DL CREATININE (test code = 2214) 1.25 MG/DL eGFR AMER. (test code 50 ML/MIN/1.73 = 92167) eGFR NON- AMER. (test 43 ML/MIN/1.73 code = 80394) CALC BUN/CREAT (test code = 26 RATIO [...] (test code = 2219) 12 U/L LIPID [id number] 00:00:00 Test Item Value Reference Range Interpretation Comments CHOLESTEROL (test code = 2210) 211 MG/DL TRIGLYCERIDES (test code = 2232) 245 MG/DL HDL CHOLESTEROL (test code = 2220) 52 MG/DL CALC LDL CHOL (test code = 2237) 122 MG/DL RISK RATIO LDL/HDL (test code = 2.35 RATIO 2238) LIPID [id number] 00:00:00 Test Item Value Reference Range Interpretation Comments CHOLESTEROL (test code = 2210) 211 MG/DL TRIGLYCERIDES (test code = 2232) 245 MG/DL HDL CHOLESTEROL (test code = 2220) 52 MG/DL CALC LDL CHOL (test code = 2237) 122 MG/DL RISK RATIO LDL/HDL (test code = 2.35 RATIO 2238) COMPREHENSIVE METABOLIC [id number] 00:00:00 Test Item Value Reference Range Interpretation Comments GLUCOSE (test code = 2217) 138 MG/DL BUN (test code = 2208) 33 MG/DL CREATININE (test code = 2214) 1.25 MG/DL eGFR AMER. (test code 50 ML/MIN/1.73 = 71149) eGFR NON- AMER. (test 43 ML/MIN/1.73 code = 51525) CALC BUN/CREAT (test code = 26 RATIO [...] (test code = 2219) 12 U/L LIPID [id number] 00:00:00 Test Item Value Reference Range Interpretation Comments CHOLESTEROL (test code = 2210) 211 MG/DL TRIGLYCERIDES (test code = 2232) 245 MG/DL HDL CHOLESTEROL (test code = 2220) 52 MG/DL CALC LDL CHOL (test code = 2237) 122 MG/DL RISK RATIO LDL/HDL (test code = 2.35 RATIO 2238) COMPREHENSIVE METABOLIC [id number] 00:00:00 Test Item Value Reference Range Interpretation Comments GLUCOSE (test code = 2217) 138 MG/DL BUN (test code = 2208) 33 MG/DL CREATININE (test code = 2214) 1.25 MG/DL eGFR AMER. (test code 50 ML/MIN/1.73 = 50624) eGFR NON- AMER. (test 43 ML/MIN/1.73 code = 41323) CALC BUN/CREAT (test code = 26 RATIO [...] code = 2219) 12 U/L COMPREHENSIVE METABOLIC [id number] 00:00:00 Test Item Value Reference Range Interpretation Comments GLUCOSE (test code = 2217) 138 MG/DL BUN (test code = 2208) 33 MG/DL CREATININE (test code = 2214) 1.25 MG/DL eGFR AMER. (test code 50 ML/MIN/1.73 = 45995) eGFR NON- AMER. (test 43 ML/MIN/1.73 code = 67185) CALC BUN/CREAT (test code = 26 RATIO [...] (test code = 2219) 12 U/L LIPID [id number] 00:00:00 Test Item Value Reference Range Interpretation Comments CHOLESTEROL (test code = 2210) 211 MG/DL TRIGLYCERIDES (test code = 2232) 245 MG/DL HDL CHOLESTEROL (test code = 2220) 52 MG/DL CALC LDL CHOL (test code = 2237) 122 MG/DL RISK RATIO LDL/HDL (test code = 2.35 RATIO 2238) LIPID [id number] 00:00:00 Test Item Value Reference Range Interpretation Comments CHOLESTEROL (test code = 2210) 211 MG/DL TRIGLYCERIDES (test code = 2232) 245 MG/DL HDL CHOLESTEROL (test code = 2220) 52 MG/DL CALC LDL CHOL (test code = 2237) 122 MG/DL RISK RATIO LDL/HDL (test code = 2.35 RATIO 2238) COMPREHENSIVE METABOLIC [id number] 00:00:00 Test Item Value Reference Range Interpretation Comments GLUCOSE (test code = 2217) 138 MG/DL BUN (test code = 2208) 33 MG/DL CREATININE (test code = 2214) 1.25 MG/DL eGFR AMER. (test code 50 ML/MIN/1.73 = 89053) eGFR NON- AMER. (test 43 ML/MIN/1.73 code = 64902) CALC BUN/CREAT (test code = 26 RATIO [...] code = 2219) 12 U/L COMPREHENSIVE METABOLIC [id number] 00:00:00 Test Item Value Reference Range Interpretation Comments GLUCOSE (test code = 2217) 138 MG/DL BUN (test code = 2208) 33 MG/DL CREATININE (test code = 2214) 1.25 MG/DL eGFR AMER. (test code 50 ML/MIN/1.73 = 77737) eGFR NON- AMER. (test 43 ML/MIN/1.73 code = 75904) CALC BUN/CREAT (test code = 26 RATIO [...] (test code = 2219) 12 U/L LIPID [id number] 00:00:00 Test Item Value Reference Range Interpretation Comments CHOLESTEROL (test code = 2210) 211 MG/DL TRIGLYCERIDES (test code = 2232) 245 MG/DL HDL CHOLESTEROL (test code = 2220) 52 MG/DL CALC LDL CHOL (test code = 2237) 122 MG/DL RISK RATIO LDL/HDL (test code = 2.35 RATIO 2238) LIPID [id number] 00:00:00 Test Item Value Reference Range Interpretation Comments CHOLESTEROL (test code = 2210) 211 MG/DL TRIGLYCERIDES (test code = 2232) 245 MG/DL HDL CHOLESTEROL (test code = 2220) 52 MG/DL CALC LDL CHOL (test code = 2237) 122 MG/DL RISK RATIO LDL/HDL (test code = 2.35 RATIO 2238) COMPREHENSIVE METABOLIC [id number] 00:00:00 Test Item Value Reference Range Interpretation Comments GLUCOSE (test code = 2217) 138 MG/DL BUN (test code = 2208) 33 MG/DL CREATININE (test code = 2214) 1.25 MG/DL eGFR AMER. (test code 50 ML/MIN/1.73 = 84247) eGFR NON- AMER. (test 43 ML/MIN/1.73 code = 54396) CALC BUN/CREAT (test code = 26 RATIO [...] (test code = 2219) 12 U/L LIPID [id number] 00:00:00 Test Item Value Reference Range Interpretation Comments CHOLESTEROL (test code = 2210) 211 MG/DL TRIGLYCERIDES (test code = 2232) 245 MG/DL HDL CHOLESTEROL (test code = 2220) 52 MG/DL CALC LDL CHOL (test code = 2237) 122 MG/DL RISK RATIO LDL/HDL (test code = 2.35 RATIO 2238) COMPREHENSIVE METABOLIC [id number] 00:00:00 Test Item Value Reference Range Interpretation Comments GLUCOSE (test code = 2217) 138 MG/DL BUN (test code = 2208) 33 MG/DL CREATININE (test code = 2214) 1.25 MG/DL eGFR AMER. (test code 50 ML/MIN/1.73 = 37412) eGFR NON- AMER. (test 43 ML/MIN/1.73 code = 73718) CALC BUN/CREAT (test code = 26 RATIO [...] code = 2219) 12 U/L COMPREHENSIVE METABOLIC [id number] 00:00:00 Test Item Value Reference Range Interpretation Comments GLUCOSE (test code = 2217) 138 MG/DL BUN (test code = 2208) 33 MG/DL CREATININE (test code = 2214) 1.25 MG/DL eGFR AMER. (test code 50 ML/MIN/1.73 = 00741) eGFR NON- AMER. (test 43 ML/MIN/1.73 code = 02854) CALC BUN/CREAT (test code = 26 RATIO [...] (test code = 2219) 12 U/L LIPID [id number] 00:00:00 Test Item Value Reference Range Interpretation Comments CHOLESTEROL (test code = 2210) 211 MG/DL TRIGLYCERIDES (test code = 2232) 245 MG/DL HDL CHOLESTEROL (test code = 2220) 52 MG/DL CALC LDL CHOL (test code = 2237) 122 MG/DL RISK RATIO LDL/HDL (test code = 2.35 RATIO 2238) LIPID [id number] 00:00:00 Test Item Value Reference Range Interpretation Comments CHOLESTEROL (test code = 2210) 211 MG/DL TRIGLYCERIDES (test code = 2232) 245 MG/DL HDL CHOLESTEROL (test code = 2220) 52 MG/DL CALC LDL CHOL (test code = 2237) 122 MG/DL RISK RATIO LDL/HDL (test code = 2.35 RATIO 2238) COMPREHENSIVE METABOLIC [id number] 00:00:00 Test Item Value Reference Range Interpretation Comments GLUCOSE (test code = 2217) 138 MG/DL BUN (test code = 2208) 33 MG/DL CREATININE (test code = 2214) 1.25 MG/DL eGFR AMER. (test code 50 ML/MIN/1.73 = 85137) eGFR NON- AMER. (test 43 ML/MIN/1.73 code = 22826) CALC BUN/CREAT (test code = 26 RATIO [...] code = 2219) 12 U/L COMPREHENSIVE METABOLIC [id number] 00:00:00 Test Item Value Reference Range Interpretation Comments GLUCOSE (test code = 2217) 138 MG/DL BUN (test code = 2208) 33 MG/DL CREATININE (test code = 2214) 1.25 MG/DL eGFR AMER. (test code 50 ML/MIN/1.73 = 69176) eGFR NON- AMER. (test 43 ML/MIN/1.73 code = 48859) CALC BUN/CREAT (test code = 26 RATIO [...] (test code = 2219) 12 U/L LIPID [id number] 00:00:00 Test Item Value Reference Range Interpretation Comments CHOLESTEROL (test code = 2210) 211 MG/DL TRIGLYCERIDES (test code = 2232) 245 MG/DL HDL CHOLESTEROL (test code = 2220) 52 MG/DL CALC LDL CHOL (test code = 2237) 122 MG/DL RISK RATIO LDL/HDL (test code = 2.35 RATIO 2238) LIPID [id number] 00:00:00 Test Item Value Reference Range Interpretation Comments CHOLESTEROL (test code = 2210) 211 MG/DL TRIGLYCERIDES (test code = 2232) 245 MG/DL HDL CHOLESTEROL (test code = 2220) 52 MG/DL CALC LDL CHOL (test code = 2237) 122 MG/DL RISK RATIO LDL/HDL (test code = 2.35 RATIO 2238) HEMOGLOBIN [id number] 00:00:00 Test Item Value Reference Range Interpretation Comments HEMOGLOBIN A1c (test code = 20102) 7.5 % HEMOGLOBIN [id number] 00:00:00 Test Item Value Reference Range Interpretation Comments HEMOGLOBIN A1c (test code = 28519) 7.5 % HEMOGLOBIN [id number] 00:00:00 Test Item Value Reference Range Interpretation Comments HEMOGLOBIN A1c (test code = 87619) 7.5 % HEMOGLOBIN [id number] 00:00:00 Test Item Value Reference Range Interpretation Comments HEMOGLOBIN A1c (test code = 17989) 7.5 % HEMOGLOBIN [id number] 00:00:00 Test Item Value Reference Range Interpretation Comments HEMOGLOBIN A1c (test code = 78956) 7.5 % HEMOGLOBIN [id number] 00:00:00 Test Item Value Reference Range Interpretation Comments HEMOGLOBIN A1c (test code = 12254) 7.5 % HEMOGLOBIN [id number] 00:00:00 Test Item Value Reference Range Interpretation Comments HEMOGLOBIN A1c (test code = 32495) 7.5 % HEMOGLOBIN [id number] 00:00:00 Test Item Value Reference Range Interpretation Comments HEMOGLOBIN A1c (test code = 47114) 7.5 % HEMOGLOBIN [id number] 00:00:00 Test Item Value Reference Range Interpretation Comments HEMOGLOBIN A1c (test code = 67815) 7.5 % HEMOGLOBIN [id number] 00:00:00 Test Item Value Reference Range Interpretation Comments HEMOGLOBIN A1c (test code = 29954) 7.5 % HEMOGLOBIN [id number] 00:00:00 Test Item Value Reference Range Interpretation Comments HEMOGLOBIN A1c (test code = 53452) 7.5 % HEMOGLOBIN [id number] 00:00:00 Test Item Value Reference Range Interpretation Comments HEMOGLOBIN A1c (test code = 20451) 7.5 % HEMOGLOBIN [id number] 00:00:00 Test Item Value Reference Range Interpretation Comments HEMOGLOBIN A1c (test code = 28447) 7.5 % HEMOGLOBIN [id number] 00:00:00 Test Item Value Reference Range Interpretation Comments HEMOGLOBIN A1c (test code = 24247) 7.5 % HEMOGLOBIN [id number] 00:00:00 Test Item Value Reference Range Interpretation Comments HEMOGLOBIN A1c (test code = 62402) 7.5 % HEMOGLOBIN [id number] 00:00:00 Test Item Value Reference Range Interpretation Comments HEMOGLOBIN A1c (test code = 77777) 7.5 % HEMOGLOBIN [id number] 00:00:00 Test Item Value Reference Range Interpretation Comments HEMOGLOBIN A1c (test code = 92652) 7.5 % HEMOGLOBIN [id number] 00:00:00 Test Item Value Reference Range Interpretation Comments HEMOGLOBIN A1c (test code = 07887) 7.5 % HEMOGLOBIN [id number] 00:00:00 Test Item Value Reference Range Interpretation Comments HEMOGLOBIN A1c (test code = 68063) 7.5 % HEMOGLOBIN [id number] 00:00:00 Test Item Value Reference Range Interpretation Comments HEMOGLOBIN A1c (test code = 83903) 7.5 % HEMOGLOBIN [id number] 00:00:00 Test Item Value Reference Range Interpretation Comments HEMOGLOBIN A1c (test code = 41014) 7.5 % HEMOGLOBIN [id number] 00:00:00 Test Item Value Reference Range Interpretation Comments HEMOGLOBIN A1c (test code = 35686) 7.5 % TROPONIN [id number] 00:00:00 Test Item Value Reference Range Interpretation Comments TROPONIN T (test code = 4017) <0.010 UG/L TROPONIN [id number] 00:00:00 Test Item Value Reference Range Interpretation Comments TROPONIN T (test code = 4017) <0.010 UG/L TROPONIN [id number] 00:00:00 Test Item Value Reference Range Interpretation Comments TROPONIN T (test code = 4017) <0.010 UG/L TROPONIN [id number] 00:00:00 Test Item Value Reference Range Interpretation Comments TROPONIN T (test code = 4017) <0.010 UG/L TROPONIN [id number] 00:00:00 Test Item Value Reference Range Interpretation Comments TROPONIN T (test code = 4017) <0.010 UG/L TROPONIN [id number] 00:00:00 Test Item Value Reference Range Interpretation Comments TROPONIN T (test code = 4017) <0.010 UG/L TROPONIN [id number] 00:00:00 Test Item Value Reference Range Interpretation Comments TROPONIN T (test code = 4017) <0.010 UG/L TROPONIN [id number] 00:00:00 Test Item Value Reference Range Interpretation Comments TROPONIN T (test code = 4017) <0.010 UG/L TROPONIN [id number] 00:00:00 Test Item Value Reference Range Interpretation Comments TROPONIN T (test code = 4017) <0.010 UG/L TROPONIN [id number] 00:00:00 Test Item Value Reference Range Interpretation Comments TROPONIN T (test code = 4017) <0.010 UG/L TROPONIN [id number] 00:00:00 Test Item Value Reference Range Interpretation Comments TROPONIN T (test code = 4017) <0.010 UG/L TROPONIN [id number] 00:00:00 Test Item Value Reference Range Interpretation Comments TROPONIN T (test code = 4017) <0.010 UG/L TROPONIN [id number] 00:00:00 Test Item Value Reference Range Interpretation Comments TROPONIN T (test code = 4017) <0.010 UG/L TROPONIN [id number] 00:00:00 Test Item Value Reference Range Interpretation Comments TROPONIN T (test code = 4017) <0.010 UG/L COMPREHENSIVE METABOLIC [id number] 00:00:00 Test Item Value Reference Range Interpretation Comments GLUCOSE (test code = 2217) 68 MG/DL BUN (test code = 2208) 31 MG/DL CREATININE (test code = 2214) 1.10 MG/DL eGFR AMER. (test code 59 ML/MIN/1.73 = 12665) eGFR NON- AMER. (test 51 ML/MIN/1.73 code = 17696) CALC BUN/CREAT (test code = 28 RATIO [...] code = 2219) 9 U/L COMPREHENSIVE METABOLIC [id number] 00:00:00 Test Item Value Reference Range Interpretation Comments GLUCOSE (test code = 2217) 68 MG/DL BUN (test code = 2208) 31 MG/DL CREATININE (test code = 2214) 1.10 MG/DL eGFR AMER. (test code 59 ML/MIN/1.73 = 53836) eGFR NON- AMER. (test 51 ML/MIN/1.73 code = 82261) CALC BUN/CREAT (test code = 28 RATIO [...] code = 2219) 9 U/L CBC W/AUTO [id number] 00:00:00 Test Item Value Reference Range Interpretation [...] code = 1015) 249 K/UL CBC W/AUTO [id number] 00:00:00 Test Item Value Reference Range Interpretation [...] code = 1015) 249 K/UL CBC W/AUTO [id number] 00:00:00 Test Item Value Reference Range Interpretation [...] (test code = 1015) 249 K/UL CK, [id number] 00:00:00 Test Item Value Reference Range Interpretation Comments CK, TOTAL (test code = 2013) 67 U/L CK, [id number] 00:00:00 Test Item Value Reference Range Interpretation Comments CK, TOTAL (test code = 2013) 67 U/L COMPREHENSIVE METABOLIC [id number] 00:00:00 Test Item Value Reference Range Interpretation Comments GLUCOSE (test code = 2217) 68 MG/DL BUN (test code = 2208) 31 MG/DL CREATININE (test code = 2214) 1.10 MG/DL eGFR AMER. (test code 59 ML/MIN/1.73 = 43745) eGFR NON- AMER. (test 51 ML/MIN/1.73 code = 21141) CALC BUN/CREAT (test code = 28 RATIO [...] code = 2219) 9 U/L COMPREHENSIVE METABOLIC [id number] 00:00:00 Test Item Value Reference Range Interpretation Comments GLUCOSE (test code = 2217) 68 MG/DL BUN (test code = 2208) 31 MG/DL CREATININE (test code = 2214) 1.10 MG/DL eGFR AMER. (test code 59 ML/MIN/1.73 = 31914) eGFR NON- AMER. (test 51 ML/MIN/1.73 code = 07403) CALC BUN/CREAT (test code = 28 RATIO [...] code = 2219) 9 U/L COMPREHENSIVE METABOLIC [id number] 00:00:00 Test Item Value Reference Range Interpretation Comments GLUCOSE (test code = 2217) 68 MG/DL BUN (test code = 2208) 31 MG/DL CREATININE (test code = 2214) 1.10 MG/DL eGFR AMER. (test code 59 ML/MIN/1.73 = 00754) eGFR NON- AMER. (test 51 ML/MIN/1.73 code = 07055) CALC BUN/CREAT (test code = 28 RATIO [...] code = 2219) 9 U/L CBC W/AUTO [id number] 00:00:00 Test Item Value Reference Range Interpretation [...] code = 1015) 249 K/UL CBC W/AUTO [id number] 00:00:00 Test Item Value Reference Range Interpretation [...] code = 1015) 249 K/UL CBC W/AUTO [id number] 00:00:00 Test Item Value Reference Range Interpretation [...] (test code = 1015) 249 K/UL CK, [id number] 00:00:00 Test Item Value Reference Range Interpretation Comments CK, TOTAL (test code = 2013) 67 U/L CK, [id number] 00:00:00 Test Item Value Reference Range Interpretation Comments CK, TOTAL (test code = 2013) 67 U/L CBC W/AUTO [id number] 00:00:00 Test Item Value Reference Range Interpretation [...] code = 1015) 249 K/UL CBC W/AUTO [id number] 00:00:00 Test Item Value Reference Range Interpretation [...] (test code = 1015) 249 K/UL CK, [id number] 00:00:00 Test Item Value Reference Range Interpretation Comments CK, TOTAL (test code = 2013) 67 U/L COMPREHENSIVE METABOLIC [id number] 00:00:00 Test Item Value Reference Range Interpretation Comments GLUCOSE (test code = 2217) 68 MG/DL BUN (test code = 2208) 31 MG/DL CREATININE (test code = 2214) 1.10 MG/DL eGFR AMER. (test code 59 ML/MIN/1.73 = 95024) eGFR NON- AMER. (test 51 ML/MIN/1.73 code = 31779) CALC BUN/CREAT (test code = 28 RATIO [...] code = 2219) 9 U/L COMPREHENSIVE METABOLIC [id number] 00:00:00 Test Item Value Reference Range Interpretation Comments GLUCOSE (test code = 2217) 68 MG/DL BUN (test code = 2208) 31 MG/DL CREATININE (test code = 2214) 1.10 MG/DL eGFR AMER. (test code 59 ML/MIN/1.73 = 31252) eGFR NON- AMER. (test 51 ML/MIN/1.73 code = 75594) CALC BUN/CREAT (test code = 28 RATIO [...] code = 2219) 9 U/L CBC W/AUTO [id number] 00:00:00 Test Item Value Reference Range Interpretation [...] code = 1015) 249 K/UL CBC W/AUTO [id number] 00:00:00 Test Item Value Reference Range Interpretation [...] code = 1015) 249 K/UL CBC W/AUTO [id number] 00:00:00 Test Item Value Reference Range Interpretation [...] (test code = 1015) 249 K/UL CK, [id number] 00:00:00 Test Item Value Reference Range Interpretation Comments CK, TOTAL (test code = 2013) 67 U/L CK, [id number] 00:00:00 Test Item Value Reference Range Interpretation Comments CK, TOTAL (test code = 2013) 67 U/L COMPREHENSIVE METABOLIC [id number] 00:00:00 Test Item Value Reference Range Interpretation Comments GLUCOSE (test code = 2217) 68 MG/DL BUN (test code = 2208) 31 MG/DL CREATININE (test code = 2214) 1.10 MG/DL eGFR AMER. (test code 59 ML/MIN/1.73 = 27510) eGFR NON- AMER. (test 51 ML/MIN/1.73 code = 08541) CALC BUN/CREAT (test code = 28 RATIO [...] code = 2219) 9 U/L COMPREHENSIVE METABOLIC [id number] 00:00:00 Test Item Value Reference Range Interpretation Comments GLUCOSE (test code = 2217) 68 MG/DL BUN (test code = 2208) 31 MG/DL CREATININE (test code = 2214) 1.10 MG/DL eGFR AMER. (test code 59 ML/MIN/1.73 = 45833) eGFR NON- AMER. (test 51 ML/MIN/1.73 code = 82113) CALC BUN/CREAT (test code = 28 RATIO [...] code = 2219) 9 U/L CBC W/AUTO [id number] 00:00:00 Test Item Value Reference Range Interpretation [...] code = 1015) 249 K/UL CBC W/AUTO [id number] 00:00:00 Test Item Value Reference Range Interpretation [...] code = 1015) 249 K/UL CBC W/AUTO [id number] 00:00:00 Test Item Value Reference Range Interpretation [...] (test code = 1015) 249 K/UL CK, [id number] 00:00:00 Test Item Value Reference Range Interpretation Comments CK, TOTAL (test code = 2013) 67 U/L CK, [id number] 00:00:00 Test Item Value Reference Range Interpretation Comments CK, TOTAL (test code = 2013) 67 U/L COMPREHENSIVE METABOLIC [id number] 00:00:00 Test Item Value Reference Range Interpretation Comments GLUCOSE (test code = 2217) 68 MG/DL BUN (test code = 2208) 31 MG/DL CREATININE (test code = 2214) 1.10 MG/DL eGFR AMER. (test code 59 ML/MIN/1.73 = 95541) eGFR NON- AMER. (test 51 ML/MIN/1.73 code = 32932) CALC BUN/CREAT (test code = 28 RATIO [...] code = 2219) 9 U/L CBC W/AUTO [id number] 00:00:00 Test Item Value Reference Range Interpretation [...] code = 1015) 249 K/UL CBC W/AUTO [id number] 00:00:00 Test Item Value Reference Range Interpretation [...] (test code = 1015) 249 K/UL CK, [id number] 00:00:00 Test Item Value Reference Range Interpretation Comments CK, TOTAL (test code = 2013) 67 U/L COMPREHENSIVE METABOLIC [id number] 00:00:00 Test Item Value Reference Range Interpretation Comments GLUCOSE (test code = 2217) 68 MG/DL BUN (test code = 2208) 31 MG/DL CREATININE (test code = 2214) 1.10 MG/DL eGFR AMER. (test code 59 ML/MIN/1.73 = 92222) eGFR NON- AMER. (test 51 ML/MIN/1.73 code = 49056) CALC BUN/CREAT (test code = 28 RATIO [...] code = 2219) 9 U/L COMPREHENSIVE METABOLIC [id number] 00:00:00 Test Item Value Reference Range Interpretation Comments GLUCOSE (test code = 2217) 68 MG/DL BUN (test code = 2208) 31 MG/DL CREATININE (test code = 2214) 1.10 MG/DL eGFR AMER. (test code 59 ML/MIN/1.73 = 74210) eGFR NON- AMER. (test 51 ML/MIN/1.73 code = 35950) CALC BUN/CREAT (test code = 28 RATIO [...] code = 2219) 9 U/L CBC W/AUTO [id number] 00:00:00 Test Item Value Reference Range Interpretation [...] code = 1015) 249 K/UL CBC W/AUTO [id number] 00:00:00 Test Item Value Reference Range Interpretation [...] code = 1015) 249 K/UL CBC W/AUTO [id number] 00:00:00 Test Item Value Reference Range Interpretation [...] (test code = 1015) 249 K/UL CK, [id number] 00:00:00 Test Item Value Reference Range Interpretation Comments CK, TOTAL (test code = 2013) 67 U/L CK, [id number] 00:00:00 Test Item Value Reference Range Interpretation Comments CK, TOTAL (test code = 2013) 67 U/L COMPREHENSIVE METABOLIC [id number] 00:00:00 Test Item Value Reference Range Interpretation Comments GLUCOSE (test code = 2217) 68 MG/DL BUN (test code = 2208) 31 MG/DL CREATININE (test code = 2214) 1.10 MG/DL eGFR AMER. (test code 59 ML/MIN/1.73 = 43288) eGFR NON- AMER. (test 51 ML/MIN/1.73 code = 35637) CALC BUN/CREAT (test code = 28 RATIO [...] code = 2219) 9 U/L COMPREHENSIVE METABOLIC [id number] 00:00:00 Test Item Value Reference Range Interpretation Comments GLUCOSE (test code = 2217) 68 MG/DL BUN (test code = 2208) 31 MG/DL CREATININE (test code = 2214) 1.10 MG/DL eGFR AMER. (test code 59 ML/MIN/1.73 = 73215) eGFR NON- AMER. (test 51 ML/MIN/1.73 code = 87436) CALC BUN/CREAT (test code = 28 RATIO [...] code = 2219) 9 U/L CBC W/AUTO [id number] 00:00:00 Test Item Value Reference Range Interpretation [...] code = 1015) 249 K/UL CBC W/AUTO [id number] 00:00:00 Test Item Value Reference Range Interpretation [...] code = 1015) 249 K/UL CBC W/AUTO [id number] 00:00:00 Test Item Value Reference Range Interpretation [...] (test code = 1015) 249 K/UL CK, [id number] 00:00:00 Test Item Value Reference Range Interpretation Comments CK, TOTAL (test code = 2013) 67 U/L CK, [id number] 00:00:00 Test Item Value Reference Range Interpretation Comments CK, TOTAL (test code = 2013) 67 U/L HEMOGLOBIN [id number] 00:00:00 Test Item Value Reference Range Interpretation Comments HEMOGLOBIN A1c (test code = 87606) 7.4 % HEMOGLOBIN [id number] 00:00:00 Test Item Value Reference Range Interpretation Comments HEMOGLOBIN A1c (test code = 58771) 7.4 % HEMOGLOBIN [id number] 00:00:00 Test Item Value Reference Range Interpretation Comments HEMOGLOBIN A1c (test code = 84257) 7.4 % LIPID PANEL WITH REFLEX DIRECT [id number] 00:00:00 Test Item Value Reference Range Interpretation Comments CHOLESTEROL (test code = 2210) 211 MG/DL TRIGLYCERIDES (test code = 2232) 257 MG/DL HDL CHOLESTEROL (test code = 2220) 54 MG/DL CALC LDL CHOL (test code = 2237) 106 MG/DL RISK RATIO LDL/HDL (test code = 1.96 RATIO 2238) LIPID PANEL WITH REFLEX DIRECT [id number] 00:00:00 Test Item Value Reference Range Interpretation Comments CHOLESTEROL (test code = 2210) 211 MG/DL TRIGLYCERIDES (test code = 2232) 257 MG/DL HDL CHOLESTEROL (test code = 2220) 54 MG/DL CALC LDL CHOL (test code = 2237) 106 MG/DL RISK RATIO LDL/HDL (test code = 1.96 RATIO 2238) COMPREHENSIVE METABOLIC [id number] 00:00:00 Test Item Value Reference Range Interpretation Comments GLUCOSE (test code = 2217) 222 MG/DL BUN (test code = 2208) 30 MG/DL CREATININE (test code = 2214) 1.26 MG/DL eGFR AMER. (test code 50 ML/MIN/1.73 = 42337) eGFR NON- AMER. (test 43 ML/MIN/1.73 code = 55162) CALC BUN/CREAT (test code = 24 RATIO [...] code = 2219) 10 U/L COMPREHENSIVE METABOLIC [id number] 00:00:00 Test Item Value Reference Range Interpretation Comments GLUCOSE (test code = 2217) 222 MG/DL BUN (test code = 2208) 30 MG/DL CREATININE (test code = 2214) 1.26 MG/DL eGFR AMER. (test code 50 ML/MIN/1.73 = 09997) eGFR NON- AMER. (test 43 ML/MIN/1.73 code = 69498) CALC BUN/CREAT (test code = 24 RATIO [...] ALT (test code = 2219) 10 U/L [id number] 00:00:00 Test Item Value Reference Range Interpretation Comments TSH, THIRD GENERATION (test code 3.230 UIU/ML = 2821) [id number] 00:00:00 Test Item Value Reference Range Interpretation Comments TSH, THIRD GENERATION (test code 3.230 UIU/ML = 2821) [id number] 00:00:00 Test Item Value Reference Range Interpretation Comments TSH, THIRD GENERATION (test code 3.230 UIU/ML = 2821) CBC W/AUTO [id number] 00:00:00 Test Item Value Reference Range Interpretation [...] code = 1015) 277 K/UL CBC W/AUTO [id number] 00:00:00 Test Item Value Reference Range Interpretation [...] code = 1015) 277 K/UL CBC W/AUTO [id number] 00:00:00 Test Item Value Reference Range Interpretation [...] (test code = 1015) 277 K/UL VITAMIN [id number] 00:00:00 Test Item Value Reference Range Interpretation Comments VITAMIN B-12 (test code = 2840) 528 PG/ML VITAMIN [id number] 00:00:00 Test Item Value Reference Range Interpretation Comments VITAMIN B-12 (test code = 2840) 528 PG/ML VITAMIN [id number] 00:00:00 Test Item Value Reference Range Interpretation Comments VITAMIN B-12 (test code = 2840) 528 PG/ML HEMOGLOBIN [id number] 00:00:00 Test Item Value Reference Range Interpretation Comments HEMOGLOBIN A1c (test code = 72243) 7.4 % HEMOGLOBIN [id number] 00:00:00 Test Item Value Reference Range Interpretation Comments HEMOGLOBIN A1c (test code = 32961) 7.4 % HEMOGLOBIN [id number] 00:00:00 Test Item Value Reference Range Interpretation Comments HEMOGLOBIN A1c (test code = 04259) 7.4 % LIPID PANEL WITH REFLEX DIRECT [id number] 00:00:00 Test Item Value Reference Range Interpretation Comments CHOLESTEROL (test code = 2210) 211 MG/DL TRIGLYCERIDES (test code = 2232) 257 MG/DL HDL CHOLESTEROL (test code = 2220) 54 MG/DL CALC LDL CHOL (test code = 2237) 106 MG/DL RISK RATIO LDL/HDL (test code = 1.96 RATIO 2238) LIPID PANEL WITH REFLEX DIRECT [id number] 00:00:00 Test Item Value Reference Range Interpretation Comments CHOLESTEROL (test code = 2210) 211 MG/DL TRIGLYCERIDES (test code = 2232) 257 MG/DL HDL CHOLESTEROL (test code = 2220) 54 MG/DL CALC LDL CHOL (test code = 2237) 106 MG/DL RISK RATIO LDL/HDL (test code = 1.96 RATIO 2238) COMPREHENSIVE METABOLIC [id number] 00:00:00 Test Item Value Reference Range Interpretation Comments GLUCOSE (test code = 2217) 222 MG/DL BUN (test code = 2208) 30 MG/DL CREATININE (test code = 2214) 1.26 MG/DL eGFR AMER. (test code 50 ML/MIN/1.73 = 44944) eGFR NON- AMER. (test 43 ML/MIN/1.73 code = 10690) CALC BUN/CREAT (test code = 24 RATIO [...] code = 2219) 10 U/L COMPREHENSIVE METABOLIC [id number] 00:00:00 Test Item Value Reference Range Interpretation Comments GLUCOSE (test code = 2217) 222 MG/DL BUN (test code = 2208) 30 MG/DL CREATININE (test code = 2214) 1.26 MG/DL eGFR AMER. (test code 50 ML/MIN/1.73 = 96315) eGFR NON- AMER. (test 43 ML/MIN/1.73 code = 42784) CALC BUN/CREAT (test code = 24 RATIO [...] ALT (test code = 2219) 10 U/L [id number] 00:00:00 Test Item Value Reference Range Interpretation Comments TSH, THIRD GENERATION (test code 3.230 UIU/ML = 2821) [id number] 00:00:00 Test Item Value Reference Range Interpretation Comments TSH, THIRD GENERATION (test code 3.230 UIU/ML = 2821) [id number] 00:00:00 Test Item Value Reference Range Interpretation Comments TSH, THIRD GENERATION (test code 3.230 UIU/ML = 2821) [id number] 00:00:00 Test Item Value Reference Range Interpretation Comments TSH, THIRD GENERATION (test code 3.230 UIU/ML = 2821) [id number] 00:00:00 Test Item Value Reference Range Interpretation Comments TSH, THIRD GENERATION (test code 3.230 UIU/ML = 2821) CBC W/AUTO [id number] 00:00:00 Test Item Value Reference Range Interpretation [...] code = 1015) 277 K/UL CBC W/AUTO [id number] 00:00:00 Test Item Value Reference Range Interpretation [...] code = 1015) 277 K/UL CBC W/AUTO [id number] 00:00:00 Test Item Value Reference Range Interpretation [...] (test code = 1015) 277 K/UL VITAMIN [id number] 00:00:00 Test Item Value Reference Range Interpretation Comments VITAMIN B-12 (test code = 2840) 528 PG/ML VITAMIN [id number] 00:00:00 Test Item Value Reference Range Interpretation Comments VITAMIN B-12 (test code = 2840) 528 PG/ML VITAMIN [id number] 00:00:00 Test Item Value Reference Range Interpretation Comments VITAMIN B-12 (test code = 2840) 528 PG/ML HEMOGLOBIN [id number] 00:00:00 Test Item Value Reference Range Interpretation Comments HEMOGLOBIN A1c (test code = 79412) 7.4 % HEMOGLOBIN [id number] 00:00:00 Test Item Value Reference Range Interpretation Comments HEMOGLOBIN A1c (test code = 73768) 7.4 % HEMOGLOBIN [id number] 00:00:00 Test Item Value Reference Range Interpretation Comments HEMOGLOBIN A1c (test code = 79159) 7.4 % LIPID PANEL WITH REFLEX DIRECT [id number] 00:00:00 Test Item Value Reference Range Interpretation Comments CHOLESTEROL (test code = 2210) 211 MG/DL TRIGLYCERIDES (test code = 2232) 257 MG/DL HDL CHOLESTEROL (test code = 2220) 54 MG/DL CALC LDL CHOL (test code = 2237) 106 MG/DL RISK RATIO LDL/HDL (test code = 1.96 RATIO 2238) LIPID PANEL WITH REFLEX DIRECT [id number] 00:00:00 Test Item Value Reference Range Interpretation Comments CHOLESTEROL (test code = 2210) 211 MG/DL TRIGLYCERIDES (test code = 2232) 257 MG/DL HDL CHOLESTEROL (test code = 2220) 54 MG/DL CALC LDL CHOL (test code = 2237) 106 MG/DL RISK RATIO LDL/HDL (test code = 1.96 RATIO 2238) COMPREHENSIVE METABOLIC [id number] 00:00:00 Test Item Value Reference Range Interpretation Comments GLUCOSE (test code = 2217) 222 MG/DL BUN (test code = 2208) 30 MG/DL CREATININE (test code = 2214) 1.26 MG/DL eGFR AMER. (test code 50 ML/MIN/1.73 = 11749) eGFR NON- AMER. (test 43 ML/MIN/1.73 code = 44691) CALC BUN/CREAT (test code = 24 RATIO [...] code = 2219) 10 U/L COMPREHENSIVE METABOLIC [id number] 00:00:00 Test Item Value Reference Range Interpretation Comments GLUCOSE (test code = 2217) 222 MG/DL BUN (test code = 2208) 30 MG/DL CREATININE (test code = 2214) 1.26 MG/DL eGFR AMER. (test code 50 ML/MIN/1.73 = 30597) eGFR NON- AMER. (test 43 ML/MIN/1.73 code = 00339) CALC BUN/CREAT (test code = 24 RATIO [...] code = 2219) 10 U/L CBC W/AUTO [id number] 00:00:00 Test Item Value Reference Range Interpretation [...] code = 1015) 277 K/UL CBC W/AUTO [id number] 00:00:00 Test Item Value Reference Range Interpretation [...] (test code = 1015) 277 K/UL VITAMIN [id number] 00:00:00 Test Item Value Reference Range Interpretation Comments VITAMIN B-12 (test code = 2840) 528 PG/ML VITAMIN [id number] 00:00:00 Test Item Value Reference Range Interpretation Comments VITAMIN B-12 (test code = 2840) 528 PG/ML [id number] 00:00:00 Test Item Value Reference Range Interpretation Comments TSH, THIRD GENERATION (test code 3.230 UIU/ML = 2821) [id number] 00:00:00 Test Item Value Reference Range Interpretation Comments TSH, THIRD GENERATION (test code 3.230 UIU/ML = 2821) [id number] 00:00:00 Test Item Value Reference Range Interpretation Comments TSH, THIRD GENERATION (test code 3.230 UIU/ML = 2821) HEMOGLOBIN [id number] 00:00:00 Test Item Value Reference Range Interpretation Comments HEMOGLOBIN A1c (test code = 81976) 7.4 % CBC W/AUTO [id number] 00:00:00 Test Item Value Reference Range Interpretation [...] code = 1015) 277 K/UL CBC W/AUTO [id number] 00:00:00 Test Item Value Reference Range Interpretation [...] code = 1015) 277 K/UL CBC W/AUTO [id number] 00:00:00 Test Item Value Reference Range Interpretation [...] (test code = 1015) 277 K/UL HEMOGLOBIN [id number] 00:00:00 Test Item Value Reference Range Interpretation Comments HEMOGLOBIN A1c (test code = 72237) 7.4 % VITAMIN [id number] 00:00:00 Test Item Value Reference Range Interpretation Comments VITAMIN B-12 (test code = 2840) 528 PG/ML VITAMIN [id number] 00:00:00 Test Item Value Reference Range Interpretation Comments VITAMIN B-12 (test code = 2840) 528 PG/ML VITAMIN [id number] 00:00:00 Test Item Value Reference Range Interpretation Comments VITAMIN B-12 (test code = 2840) 528 PG/ML HEMOGLOBIN [id number] 00:00:00 Test Item Value Reference Range Interpretation Comments HEMOGLOBIN A1c (test code = 76328) 7.4 % HEMOGLOBIN [id number] 00:00:00 Test Item Value Reference Range Interpretation Comments HEMOGLOBIN A1c (test code = 63721) 7.4 % HEMOGLOBIN [id number] 00:00:00 Test Item Value Reference Range Interpretation Comments HEMOGLOBIN A1c (test code = 07534) 7.4 % LIPID PANEL WITH REFLEX DIRECT [id number] 00:00:00 Test Item Value Reference Range Interpretation Comments CHOLESTEROL (test code = 2210) 211 MG/DL TRIGLYCERIDES (test code = 2232) 257 MG/DL HDL CHOLESTEROL (test code = 2220) 54 MG/DL CALC LDL CHOL (test code = 2237) 106 MG/DL RISK RATIO LDL/HDL (test code = 1.96 RATIO 2238) LIPID PANEL WITH REFLEX DIRECT [id number] 00:00:00 Test Item Value Reference Range Interpretation Comments CHOLESTEROL (test code = 2210) 211 MG/DL TRIGLYCERIDES (test code = 2232) 257 MG/DL HDL CHOLESTEROL (test code = 2220) 54 MG/DL CALC LDL CHOL (test code = 2237) 106 MG/DL RISK RATIO LDL/HDL (test code = 1.96 RATIO 2238) LIPID PANEL WITH REFLEX DIRECT [id number] 00:00:00 Test Item Value Reference Range Interpretation Comments CHOLESTEROL (test code = 2210) 211 MG/DL TRIGLYCERIDES (test code = 2232) 257 MG/DL HDL CHOLESTEROL (test code = 2220) 54 MG/DL CALC LDL CHOL (test code = 2237) 106 MG/DL RISK RATIO LDL/HDL (test code = 1.96 RATIO 2238) COMPREHENSIVE METABOLIC [id number] 00:00:00 Test Item Value Reference Range Interpretation Comments GLUCOSE (test code = 2217) 222 MG/DL BUN (test code = 2208) 30 MG/DL CREATININE (test code = 2214) 1.26 MG/DL eGFR AMER. (test code 50 ML/MIN/1.73 = 80692) eGFR NON- AMER. (test 43 ML/MIN/1.73 code = 01170) CALC BUN/CREAT (test code = 24 RATIO [...] code = 2219) 10 U/L COMPREHENSIVE METABOLIC [id number] 00:00:00 Test Item Value Reference Range Interpretation Comments GLUCOSE (test code = 2217) 222 MG/DL BUN (test code = 2208) 30 MG/DL CREATININE (test code = 2214) 1.26 MG/DL eGFR AMER. (test code 50 ML/MIN/1.73 = 54775) eGFR NON- AMER. (test 43 ML/MIN/1.73 code = 31362) CALC BUN/CREAT (test code = 24 RATIO [...] code = 2219) 10 U/L COMPREHENSIVE METABOLIC [id number] 00:00:00 Test Item Value Reference Range Interpretation Comments GLUCOSE (test code = 2217) 222 MG/DL BUN (test code = 2208) 30 MG/DL CREATININE (test code = 2214) 1.26 MG/DL eGFR AMER. (test code 50 ML/MIN/1.73 = 01860) eGFR NON- AMER. (test 43 ML/MIN/1.73 code = 71912) CALC BUN/CREAT (test code = 24 RATIO [...] ALT (test code = 2219) 10 U/L [id number] 00:00:00 Test Item Value Reference Range Interpretation Comments TSH, THIRD GENERATION (test code 3.230 UIU/ML = 2821) [id number] 00:00:00 Test Item Value Reference Range Interpretation Comments TSH, THIRD GENERATION (test code 3.230 UIU/ML = 2821) [id number] 00:00:00 Test Item Value Reference Range Interpretation Comments TSH, THIRD GENERATION (test code 3.230 UIU/ML = 2821) CBC W/AUTO [id number] 00:00:00 Test Item Value Reference Range Interpretation [...] code = 1015) 277 K/UL CBC W/AUTO [id number] 00:00:00 Test Item Value Reference Range Interpretation [...] code = 1015) 277 K/UL CBC W/AUTO [id number] 00:00:00 Test Item Value Reference Range Interpretation [...] (test code = 1015) 277 K/UL VITAMIN [id number] 00:00:00 Test Item Value Reference Range Interpretation Comments VITAMIN B-12 (test code = 2840) 528 PG/ML VITAMIN [id number] 00:00:00 Test Item Value Reference Range Interpretation Comments VITAMIN B-12 (test code = 2840) 528 PG/ML VITAMIN [id number] 00:00:00 Test Item Value Reference Range Interpretation Comments VITAMIN B-12 (test code = 2840) 528 PG/ML HEMOGLOBIN [id number] 00:00:00 Test Item Value Reference Range Interpretation Comments HEMOGLOBIN A1c (test code = 71202) 7.4 % HEMOGLOBIN [id number] 00:00:00 Test Item Value Reference Range Interpretation Comments HEMOGLOBIN A1c (test code = 62468) 7.4 % HEMOGLOBIN [id number] 00:00:00 Test Item Value Reference Range Interpretation Comments HEMOGLOBIN A1c (test code = 80447) 7.4 % LIPID PANEL WITH REFLEX DIRECT [id number] 00:00:00 Test Item Value Reference Range Interpretation Comments CHOLESTEROL (test code = 2210) 211 MG/DL TRIGLYCERIDES (test code = 2232) 257 MG/DL HDL CHOLESTEROL (test code = 2220) 54 MG/DL CALC LDL CHOL (test code = 2237) 106 MG/DL RISK RATIO LDL/HDL (test code = 1.96 RATIO 2238) LIPID PANEL WITH REFLEX DIRECT [id number] 00:00:00 Test Item Value Reference Range Interpretation Comments CHOLESTEROL (test code = 2210) 211 MG/DL TRIGLYCERIDES (test code = 2232) 257 MG/DL HDL CHOLESTEROL (test code = 2220) 54 MG/DL CALC LDL CHOL (test code = 2237) 106 MG/DL RISK RATIO LDL/HDL (test code = 1.96 RATIO 2238) COMPREHENSIVE METABOLIC [id number] 00:00:00 Test Item Value Reference Range Interpretation Comments GLUCOSE (test code = 2217) 222 MG/DL BUN (test code = 2208) 30 MG/DL CREATININE (test code = 2214) 1.26 MG/DL eGFR AMER. (test code 50 ML/MIN/1.73 = 55571) eGFR NON- AMER. (test 43 ML/MIN/1.73 code = 43640) CALC BUN/CREAT (test code = 24 RATIO [...] code = 2219) 10 U/L COMPREHENSIVE METABOLIC [id number] 00:00:00 Test Item Value Reference Range Interpretation Comments GLUCOSE (test code = 2217) 222 MG/DL BUN (test code = 2208) 30 MG/DL CREATININE (test code = 2214) 1.26 MG/DL eGFR AMER. (test code 50 ML/MIN/1.73 = 93672) eGFR NON- AMER. (test 43 ML/MIN/1.73 code = 84892) CALC BUN/CREAT (test code = 24 RATIO [...] ALT (test code = 2219) 10 U/L [id number] 00:00:00 Test Item Value Reference Range Interpretation Comments TSH, THIRD GENERATION (test code 3.230 UIU/ML = 2821) [id number] 00:00:00 Test Item Value Reference Range Interpretation Comments TSH, THIRD GENERATION (test code 3.230 UIU/ML = 2821) CBC W/AUTO [id number] 00:00:00 Test Item Value Reference Range Interpretation [...] code = 1015) 277 K/UL CBC W/AUTO [id number] 00:00:00 Test Item Value Reference Range Interpretation [...] (test code = 1015) 277 K/UL VITAMIN [id number] 00:00:00 Test Item Value Reference Range Interpretation Comments VITAMIN B-12 (test code = 2840) 528 PG/ML VITAMIN [id number] 00:00:00 Test Item Value Reference Range Interpretation Comments VITAMIN B-12 (test code = 2840) 528 PG/ML HEMOGLOBIN [id number] 00:00:00 Test Item Value Reference Range Interpretation Comments HEMOGLOBIN A1c (test code = 55438) 7.4 % HEMOGLOBIN [id number] 00:00:00 Test Item Value Reference Range Interpretation Comments HEMOGLOBIN A1c (test code = 28355) 7.4 % LIPID PANEL WITH REFLEX DIRECT [id number] 00:00:00 Test Item Value Reference Range Interpretation Comments CHOLESTEROL (test code = 2210) 211 MG/DL TRIGLYCERIDES (test code = 2232) 257 MG/DL HDL CHOLESTEROL (test code = 2220) 54 MG/DL CALC LDL CHOL (test code = 2237) 106 MG/DL RISK RATIO LDL/HDL (test code = 1.96 RATIO 2238) COMPREHENSIVE METABOLIC [id number] 00:00:00 Test Item Value Reference Range Interpretation Comments GLUCOSE (test code = 2217) 222 MG/DL BUN (test code = 2208) 30 MG/DL CREATININE (test code = 2214) 1.26 MG/DL eGFR AMER. (test code 50 ML/MIN/1.73 = 36435) eGFR NON- AMER. (test 43 ML/MIN/1.73 code = 99075) CALC BUN/CREAT (test code = 24 RATIO 5) SODIUM (test code = 2231) 139 MEQ/L [...] ALT (test code = 2219) 10 U/L [id number] 00:00:00 Test Item Value Reference Range Interpretation Comments TSH, THIRD GENERATION (test code 3.230 UIU/ML = 2821) [id number] 00:00:00 Test Item Value Reference Range Interpretation Comments TSH, THIRD GENERATION (test code 3.230 UIU/ML = 2821) [id number] 00:00:00 Test Item Value Reference Range Interpretation Comments TSH, THIRD GENERATION (test code 3.230 UIU/ML = 2821) CBC W/AUTO [id number] 00:00:00 Test Item Value Reference Range Interpretation [...] code = 1015) 277 K/UL CBC W/AUTO [id number] 00:00:00 Test Item Value Reference Range Interpretation [...] code = 1015) 277 K/UL CBC W/AUTO [id number] 00:00:00 Test Item Value Reference Range Interpretation [...] (test code = 1015) 277 K/UL VITAMIN [id number] 00:00:00 Test Item Value Reference Range Interpretation Comments VITAMIN B-12 (test code = 2840) 528 PG/ML VITAMIN [id number] 00:00:00 Test Item Value Reference Range Interpretation Comments VITAMIN B-12 (test code = 2840) 528 PG/ML VITAMIN [id number] 00:00:00 Test Item Value Reference Range Interpretation Comments VITAMIN B-12 (test code = 2840) 528 PG/ML HEMOGLOBIN [id number] 00:00:00 Test Item Value Reference Range Interpretation Comments HEMOGLOBIN A1c (test code = 09567) 7.4 % HEMOGLOBIN [id number] 00:00:00 Test Item Value Reference Range Interpretation Comments HEMOGLOBIN A1c (test code = 44719) 7.4 % HEMOGLOBIN [id number] 00:00:00 Test Item Value Reference Range Interpretation Comments HEMOGLOBIN A1c (test code = 18904) 7.4 % LIPID PANEL WITH REFLEX DIRECT [id number] 00:00:00 Test Item Value Reference Range Interpretation Comments CHOLESTEROL (test code = 2210) 211 MG/DL TRIGLYCERIDES (test code = 2232) 257 MG/DL HDL CHOLESTEROL (test code = 2220) 54 MG/DL CALC LDL CHOL (test code = 2237) 106 MG/DL RISK RATIO LDL/HDL (test code = 1.96 RATIO 2238) LIPID PANEL WITH REFLEX DIRECT [id number] 00:00:00 Test Item Value Reference Range Interpretation Comments CHOLESTEROL (test code = 2210) 211 MG/DL TRIGLYCERIDES (test code = 2232) 257 MG/DL HDL CHOLESTEROL (test code = 2220) 54 MG/DL CALC LDL CHOL (test code = 2237) 106 MG/DL RISK RATIO LDL/HDL (test code = 1.96 RATIO 2238) COMPREHENSIVE METABOLIC [id number] 00:00:00 Test Item Value Reference Range Interpretation Comments GLUCOSE (test code = 2217) 222 MG/DL BUN (test code = 2208) 30 MG/DL CREATININE (test code = 2214) 1.26 MG/DL eGFR AMER. (test code 50 ML/MIN/1.73 = 46698) eGFR NON- AMER. (test 43 ML/MIN/1.73 code = 05179) CALC BUN/CREAT (test code = 24 RATIO [...] code = 2219) 10 U/L COMPREHENSIVE METABOLIC [id number] 00:00:00 Test Item Value Reference Range Interpretation Comments GLUCOSE (test code = 2217) 222 MG/DL BUN (test code = 2208) 30 MG/DL CREATININE (test code = 2214) 1.26 MG/DL eGFR AMER. (test code 50 ML/MIN/1.73 = 79133) eGFR NON- AMER. (test 43 ML/MIN/1.73 code = 24174) CALC BUN/CREAT (test code = 24 RATIO [...] ALT (test code = 2219) 10 U/L [id number] 00:00:00 Test Item Value Reference Range Interpretation Comments TSH, THIRD GENERATION (test code 3.230 UIU/ML = 2821) [id number] 00:00:00 Test Item Value Reference Range Interpretation Comments TSH, THIRD GENERATION (test code 3.230 UIU/ML = 2821) [id number] 00:00:00 Test Item Value Reference Range Interpretation Comments TSH, THIRD GENERATION (test code 3.230 UIU/ML = 2821) CBC W/AUTO [id number] 00:00:00 Test Item Value Reference Range Interpretation [...] code = 1015) 277 K/UL CBC W/AUTO [id number] 00:00:00 Test Item Value Reference Range Interpretation [...] code = 1015) 277 K/UL CBC W/AUTO [id number] 00:00:00 Test Item Value Reference Range Interpretation [...] (test code = 1015) 277 K/UL VITAMIN [id number] 00:00:00 Test Item Value Reference Range Interpretation Comments VITAMIN B-12 (test code = 2840) 528 PG/ML VITAMIN [id number] 00:00:00 Test Item Value Reference Range Interpretation Comments VITAMIN B-12 (test code = 2840) 528 PG/ML VITAMIN [id number] 00:00:00 Test Item Value Reference Range Interpretation Comments VITAMIN B-12 (test code = 2840) 528 PG/ML UNLABELLED SPECIMEN [ADDED]2019-05-20 00:00:00 Test Item Value Reference Range Interpretation Comments NOTE: (test code = 90522) UNLABELLED SPECIMEN [ADDED]2019-05-20 00:00:00 Test Item Value Reference Range Interpretation Comments NOTE: (test code = 60981) UNLABELLED SPECIMEN [ADDED]2019-05-20 00:00:00 Test Item Value Reference Range Interpretation Comments NOTE: (test code = 37214) UNLABELLED SPECIMEN [ADDED]2019-05-20 00:00:00 Test Item Value Reference Range Interpretation Comments NOTE: (test code = 29783) UNLABELLED SPECIMEN [ADDED]2019-05-20 00:00:00 Test Item Value Reference Range Interpretation Comments NOTE: (test code = 04254) UNLABELLED SPECIMEN [ADDED]2019-05-20 00:00:00 Test Item Value Reference Range Interpretation Comments NOTE: (test code = 08432) UNLABELLED SPECIMEN [ADDED]2019-05-20 00:00:00 Test Item Value Reference Range Interpretation Comments NOTE: (test code = 93282) UNLABELLED SPECIMEN [ADDED]2019-05-20 00:00:00 Test Item Value Reference Range Interpretation Comments NOTE: (test code = 90026) COMPREHENSIVE METABOLIC [id number] 00:00:00 Test Item Value Reference Range Interpretation Comments GLUCOSE (test code = 2217) 133 MG/DL BUN (test code = 2208) 44 MG/DL CREATININE (test code = 2214) 1.46 MG/DL eGFR AMER. (test code 42 ML/MIN/1.73 = 23560) eGFR NON- AMER. (test 36 ML/MIN/1.73 code = 40332) CALC BUN/CREAT (test code = 30 RATIO [...] code = 2219) 17 U/L COMPREHENSIVE METABOLIC [id number] 00:00:00 Test Item Value Reference Range Interpretation Comments GLUCOSE (test code = 2217) 133 MG/DL BUN (test code = 2208) 44 MG/DL CREATININE (test code = 2214) 1.46 MG/DL eGFR AMER. (test code 42 ML/MIN/1.73 = 54977) eGFR NON- AMER. (test 36 ML/MIN/1.73 code = 78304) CALC BUN/CREAT (test code = 30 RATIO [...] ALKALINE PHOSPHATASE (test 96 U/L code = 2203) AST (test code = 2218) 19 U/L ALT (test code = 2219) 17 U/L MICROALBUMIN/CREATININE, RANDOM AND [id number] 00:00:00 Test Item Value Reference Range Interpretation Comments CREATININE, URINE, CONC. (test 97.1 MG/DL code = 2072) ALBUMIN, URINE, RANDOM (test code 18.9 MG/DL = 63436) CALC ALBUMIN/CREAT, RND (test code 195 MG/G = 06364) MICROALBUMIN/CREATININE, RANDOM AND [id number] 00:00:00 Test Item Value Reference Range Interpretation Comments CREATININE, URINE, CONC. (test 97.1 MG/DL code = 2072) ALBUMIN, URINE, RANDOM (test code 18.9 MG/DL = 26369) CALC ALBUMIN/CREAT, RND (test code 195 MG/G = 46555) CBC W/AUTO [id number] 00:00:00 Test Item Value Reference Range Interpretation [...] code = 1015) 284 K/UL CBC W/AUTO [id number] 00:00:00 Test Item Value Reference Range Interpretation [...] code = 1015) 284 K/UL CBC W/AUTO [id number] 00:00:00 Test Item Value Reference Range Interpretation [...] (test code = 1015) 284 K/UL LIPID [id number] 00:00:00 Test Item Value Reference Range Interpretation Comments CHOLESTEROL (test code = 2210) 196 MG/DL TRIGLYCERIDES (test code = 2232) 227 MG/DL HDL CHOLESTEROL (test code = 2220) 44 MG/DL CALC LDL CHOL (test code = 2237) 107 MG/DL RISK RATIO LDL/HDL (test code = 2.42 RATIO 2238) LIPID [id number] 00:00:00 Test Item Value Reference Range Interpretation Comments CHOLESTEROL (test code = 2210) 196 MG/DL TRIGLYCERIDES (test code = 2232) 227 MG/DL HDL CHOLESTEROL (test code = 2220) 44 MG/DL CALC LDL CHOL (test code = 2237) 107 MG/DL RISK RATIO LDL/HDL (test code = 2.42 RATIO 2238) HEMOGLOBIN [id number] 00:00:00 Test Item Value Reference Range Interpretation Comments HEMOGLOBIN A1c (test code = 63306) 9.0 % HEMOGLOBIN [id number] 00:00:00 Test Item Value Reference Range Interpretation Comments HEMOGLOBIN A1c (test code = 04844) 9.0 % HEMOGLOBIN [id number] 00:00:00 Test Item Value Reference Range Interpretation Comments HEMOGLOBIN A1c (test code = 14070) 9.0 % COMPREHENSIVE METABOLIC [id number] 00:00:00 Test Item Value Reference Range Interpretation Comments GLUCOSE (test code = 2217) 133 MG/DL BUN (test code = 2208) 44 MG/DL CREATININE (test code = 2214) 1.46 MG/DL eGFR AMER. (test code 42 ML/MIN/1.73 = 20577) eGFR NON- AMER. (test 36 ML/MIN/1.73 code = 39039) CALC BUN/CREAT (test code = 30 RATIO [...] code = 2219) 17 U/L COMPREHENSIVE METABOLIC [id number] 00:00:00 Test Item Value Reference Range Interpretation Comments GLUCOSE (test code = 2217) 133 MG/DL BUN (test code = 2208) 44 MG/DL CREATININE (test code = 2214) 1.46 MG/DL eGFR AMER. (test code 42 ML/MIN/1.73 = 02353) eGFR NON- AMER. (test 36 ML/MIN/1.73 code = 37795) CALC BUN/CREAT (test code = 30 RATIO [...] = 2219) 17 U/L MICROALBUMIN/CREATININE, RANDOM AND [id number] 00:00:00 Test Item Value Reference Range Interpretation Comments CREATININE, URINE, CONC. (test 97.1 MG/DL code = 2072) ALBUMIN, URINE, RANDOM (test code 18.9 MG/DL = 72441) CALC ALBUMIN/CREAT, RND (test code 195 MG/G = 17975) MICROALBUMIN/CREATININE, RANDOM AND [id number] 00:00:00 Test Item Value Reference Range Interpretation Comments CREATININE, URINE, CONC. (test 97.1 MG/DL code = 2072) ALBUMIN, URINE, RANDOM (test code 18.9 MG/DL = 17759) CALC ALBUMIN/CREAT, RND (test code 195 MG/G = 01381) CBC W/AUTO [id number] 00:00:00 Test Item Value Reference Range Interpretation [...] code = 1015) 284 K/UL CBC W/AUTO [id number] 00:00:00 Test Item Value Reference Range Interpretation [...] code = 1015) 284 K/UL CBC W/AUTO [id number] 00:00:00 Test Item Value Reference Range Interpretation [...] code = 1015) 284 K/UL CBC W/AUTO [id number] 00:00:00 Test Item Value Reference Range Interpretation [...] code = 1015) 284 K/UL CBC W/AUTO [id number] 00:00:00 Test Item Value Reference Range Interpretation [...] (test code = 1015) 284 K/UL LIPID [id number] 00:00:00 Test Item Value Reference Range Interpretation Comments CHOLESTEROL (test code = 2210) 196 MG/DL TRIGLYCERIDES (test code = 2232) 227 MG/DL HDL CHOLESTEROL (test code = 2220) 44 MG/DL CALC LDL CHOL (test code = 2237) 107 MG/DL RISK RATIO LDL/HDL (test code = 2.42 RATIO 2238) LIPID [id number] 00:00:00 Test Item Value Reference Range Interpretation Comments CHOLESTEROL (test code = 2210) 196 MG/DL TRIGLYCERIDES (test code = 2232) 227 MG/DL HDL CHOLESTEROL (test code = 2220) 44 MG/DL CALC LDL CHOL (test code = 2237) 107 MG/DL RISK RATIO LDL/HDL (test code = 2.42 RATIO 2238) LIPID [id number] 00:00:00 Test Item Value Reference Range Interpretation Comments CHOLESTEROL (test code = 2210) 196 MG/DL TRIGLYCERIDES (test code = 2232) 227 MG/DL HDL CHOLESTEROL (test code = 2220) 44 MG/DL CALC LDL CHOL (test code = 2237) 107 MG/DL RISK RATIO LDL/HDL (test code = 2.42 RATIO 2238) HEMOGLOBIN [id number] 00:00:00 Test Item Value Reference Range Interpretation Comments HEMOGLOBIN A1c (test code = 71924) 9.0 % HEMOGLOBIN [id number] 00:00:00 Test Item Value Reference Range Interpretation Comments HEMOGLOBIN A1c (test code = 46929) 9.0 % HEMOGLOBIN [id number] 00:00:00 Test Item Value Reference Range Interpretation Comments HEMOGLOBIN A1c (test code = 68517) 9.0 % COMPREHENSIVE METABOLIC [id number] 00:00:00 Test Item Value Reference Range Interpretation Comments GLUCOSE (test code = 2217) 133 MG/DL BUN (test code = 2208) 44 MG/DL CREATININE (test code = 2214) 1.46 MG/DL eGFR AMER. (test code 42 ML/MIN/1.73 = 51917) eGFR NON- AMER. (test 36 ML/MIN/1.73 code = 75538) CALC BUN/CREAT (test code = 30 RATIO [...] code = 2219) 17 U/L COMPREHENSIVE METABOLIC [id number] 00:00:00 Test Item Value Reference Range Interpretation Comments GLUCOSE (test code = 2217) 133 MG/DL BUN (test code = 2208) 44 MG/DL CREATININE (test code = 2214) 1.46 MG/DL eGFR AMER. (test code 42 ML/MIN/1.73 = 07577) eGFR NON- AMER. (test 36 ML/MIN/1.73 code = 69167) CALC BUN/CREAT (test code = 30 RATIO [...] = 2219) 17 U/L MICROALBUMIN/CREATININE, RANDOM AND [id number] 00:00:00 Test Item Value Reference Range Interpretation Comments CREATININE, URINE, CONC. (test 97.1 MG/DL code = 2072) ALBUMIN, URINE, RANDOM (test code 18.9 MG/DL = 13412) CALC ALBUMIN/CREAT, RND (test code 195 MG/G = 41029) MICROALBUMIN/CREATININE, RANDOM AND [id number] 00:00:00 Test Item Value Reference Range Interpretation Comments CREATININE, URINE, CONC. (test 97.1 MG/DL code = 2072) ALBUMIN, URINE, RANDOM (test code 18.9 MG/DL = 00779) CALC ALBUMIN/CREAT, RND (test code 195 MG/G = 41513) HEMOGLOBIN [id number] 00:00:00 Test Item Value Reference Range Interpretation Comments HEMOGLOBIN A1c (test code = 18813) 9.0 % HEMOGLOBIN [id number] 00:00:00 Test Item Value Reference Range Interpretation Comments HEMOGLOBIN A1c (test code = 30557) 9.0 % CBC W/AUTO [id number] 00:00:00 Test Item Value Reference Range Interpretation [...] code = 1015) 284 K/UL CBC W/AUTO [id number] 00:00:00 Test Item Value Reference Range Interpretation [...] code = 1015) 284 K/UL CBC W/AUTO [id number] 00:00:00 Test Item Value Reference Range Interpretation [...] (test code = 1015) 284 K/UL LIPID [id number] 00:00:00 Test Item Value Reference Range Interpretation Comments CHOLESTEROL (test code = 2210) 196 MG/DL TRIGLYCERIDES (test code = 2232) 227 MG/DL HDL CHOLESTEROL (test code = 2220) 44 MG/DL CALC LDL CHOL (test code = 2237) 107 MG/DL RISK RATIO LDL/HDL (test code = 2.42 RATIO 2238) LIPID [id number] 00:00:00 Test Item Value Reference Range Interpretation Comments CHOLESTEROL (test code = 2210) 196 MG/DL TRIGLYCERIDES (test code = 2232) 227 MG/DL HDL CHOLESTEROL (test code = 2220) 44 MG/DL CALC LDL CHOL (test code = 2237) 107 MG/DL RISK RATIO LDL/HDL (test code = 2.42 RATIO 2238) HEMOGLOBIN [id number] 00:00:00 Test Item Value Reference Range Interpretation Comments HEMOGLOBIN A1c (test code = 45547) 9.0 % HEMOGLOBIN [id number] 00:00:00 Test Item Value Reference Range Interpretation Comments HEMOGLOBIN A1c (test code = 51768) 9.0 % COMPREHENSIVE METABOLIC [id number] 00:00:00 Test Item Value Reference Range Interpretation Comments GLUCOSE (test code = 2217) 133 MG/DL BUN (test code = 2208) 44 MG/DL CREATININE (test code = 2214) 1.46 MG/DL eGFR AMER. (test code 42 ML/MIN/1.73 = 07802) eGFR NON- AMER. (test 36 ML/MIN/1.73 code = 54955) CALC BUN/CREAT (test code = 30 RATIO [...] (test code = 2219) 17 U/L HEMOGLOBIN [id number] 00:00:00 Test Item Value Reference Range Interpretation Comments HEMOGLOBIN A1c (test code = 82601) 9.0 % COMPREHENSIVE METABOLIC [id number] 00:00:00 Test Item Value Reference Range Interpretation Comments GLUCOSE (test code = 2217) 133 MG/DL BUN (test code = 2208) 44 MG/DL CREATININE (test code = 2214) 1.46 MG/DL eGFR AMER. (test code 42 ML/MIN/1.73 = 30942) eGFR NON- AMER. (test 36 ML/MIN/1.73 code = 64116) CALC BUN/CREAT (test code = 30 RATIO [...] code = 2219) 17 U/L COMPREHENSIVE METABOLIC [id number] 00:00:00 Test Item Value Reference Range Interpretation Comments GLUCOSE (test code = 2217) 133 MG/DL BUN (test code = 2208) 44 MG/DL CREATININE (test code = 2214) 1.46 MG/DL eGFR AMER. (test code 42 ML/MIN/1.73 = 65817) eGFR NON- AMER. (test 36 ML/MIN/1.73 code = 59561) CALC BUN/CREAT (test code = 30 RATIO [...] = 2219) 17 U/L MICROALBUMIN/CREATININE, RANDOM AND [id number] 00:00:00 Test Item Value Reference Range Interpretation Comments CREATININE, URINE, CONC. (test 97.1 MG/DL code = 2072) ALBUMIN, URINE, RANDOM (test code 18.9 MG/DL = 70959) CALC ALBUMIN/CREAT, RND (test code 195 MG/G = 91683) MICROALBUMIN/CREATININE, RANDOM AND [id number] 00:00:00 Test Item Value Reference Range Interpretation Comments CREATININE, URINE, CONC. (test 97.1 MG/DL code = 2072) ALBUMIN, URINE, RANDOM (test code 18.9 MG/DL = 06595) CALC ALBUMIN/CREAT, RND (test code 195 MG/G = 93256) MICROALBUMIN/CREATININE, RANDOM AND [id number] 00:00:00 Test Item Value Reference Range Interpretation Comments CREATININE, URINE, CONC. (test 97.1 MG/DL code = 2072) ALBUMIN, URINE, RANDOM (test code 18.9 MG/DL = 35144) CALC ALBUMIN/CREAT, RND (test code 195 MG/G = 13169) CBC W/AUTO [id number] 00:00:00 Test Item Value Reference Range Interpretation [...] code = 1015) 284 K/UL CBC W/AUTO [id number] 00:00:00 Test Item Value Reference Range Interpretation [...] code = 1015) 284 K/UL CBC W/AUTO [id number] 00:00:00 Test Item Value Reference Range Interpretation [...] (test code = 1015) 284 K/UL LIPID [id number] 00:00:00 Test Item Value Reference Range Interpretation Comments CHOLESTEROL (test code = 2210) 196 MG/DL TRIGLYCERIDES (test code = 2232) 227 MG/DL HDL CHOLESTEROL (test code = 2220) 44 MG/DL CALC LDL CHOL (test code = 2237) 107 MG/DL RISK RATIO LDL/HDL (test code = 2.42 RATIO 2238) LIPID [id number] 00:00:00 Test Item Value Reference Range Interpretation Comments CHOLESTEROL (test code = 2210) 196 MG/DL TRIGLYCERIDES (test code = 2232) 227 MG/DL HDL CHOLESTEROL (test code = 2220) 44 MG/DL CALC LDL CHOL (test code = 2237) 107 MG/DL RISK RATIO LDL/HDL (test code = 2.42 RATIO 2238) HEMOGLOBIN [id number] 00:00:00 Test Item Value Reference Range Interpretation Comments HEMOGLOBIN A1c (test code = 98609) 9.0 % HEMOGLOBIN [id number] 00:00:00 Test Item Value Reference Range Interpretation Comments HEMOGLOBIN A1c (test code = 74493) 9.0 % HEMOGLOBIN [id number] 00:00:00 Test Item Value Reference Range Interpretation Comments HEMOGLOBIN A1c (test code = 74902) 9.0 % COMPREHENSIVE METABOLIC [id number] 00:00:00 Test Item Value Reference Range Interpretation Comments GLUCOSE (test code = 2217) 133 MG/DL BUN (test code = 2208) 44 MG/DL CREATININE (test code = 2214) 1.46 MG/DL eGFR AMER. (test code 42 ML/MIN/1.73 = 89719) eGFR NON- AMER. (test 36 ML/MIN/1.73 code = 60477) CALC BUN/CREAT (test code = 30 RATIO [...] code = 2219) 17 U/L COMPREHENSIVE METABOLIC [id number] 00:00:00 Test Item Value Reference Range Interpretation Comments GLUCOSE (test code = 2217) 133 MG/DL BUN (test code = 2208) 44 MG/DL CREATININE (test code = 2214) 1.46 MG/DL eGFR AMER. (test code 42 ML/MIN/1.73 = 65883) eGFR NON- AMER. (test 36 ML/MIN/1.73 code = 50132) CALC BUN/CREAT (test code = 30 RATIO [...] = 2219) 17 U/L MICROALBUMIN/CREATININE, RANDOM AND [id number] 00:00:00 Test Item Value Reference Range Interpretation Comments CREATININE, URINE, CONC. (test 97.1 MG/DL code = 2072) ALBUMIN, URINE, RANDOM (test code 18.9 MG/DL = 25097) CALC ALBUMIN/CREAT, RND (test code 195 MG/G = 23439) MICROALBUMIN/CREATININE, RANDOM AND [id number] 00:00:00 Test Item Value Reference Range Interpretation Comments CREATININE, URINE, CONC. (test 97.1 MG/DL code = 2072) ALBUMIN, URINE, RANDOM (test code 18.9 MG/DL = 49402) CALC ALBUMIN/CREAT, RND (test code 195 MG/G = 69738) CBC W/AUTO [id number] 00:00:00 Test Item Value Reference Range Interpretation [...] code = 1015) 284 K/UL CBC W/AUTO [id number] 00:00:00 Test Item Value Reference Range Interpretation [...] (test code = 1015) 284 K/UL LIPID [id number] 00:00:00 Test Item Value Reference Range Interpretation Comments CHOLESTEROL (test code = 2210) 196 MG/DL TRIGLYCERIDES (test code = 2232) 227 MG/DL HDL CHOLESTEROL (test code = 2220) 44 MG/DL CALC LDL CHOL (test code = 2237) 107 MG/DL RISK RATIO LDL/HDL (test code = 2.42 RATIO 2238) HEMOGLOBIN [id number] 00:00:00 Test Item Value Reference Range Interpretation Comments HEMOGLOBIN A1c (test code = 49448) 9.0 % HEMOGLOBIN [id number] 00:00:00 Test Item Value Reference Range Interpretation Comments HEMOGLOBIN A1c (test code = 61016) 9.0 % COMPREHENSIVE METABOLIC [id number] 00:00:00 Test Item Value Reference Range Interpretation Comments GLUCOSE (test code = 2217) 133 MG/DL BUN (test code = 2208) 44 MG/DL CREATININE (test code = 2214) 1.46 MG/DL eGFR AMER. (test code 42 ML/MIN/1.73 = 30943) eGFR NON- AMER. (test 36 ML/MIN/1.73 code = 35967) CALC BUN/CREAT (test code = 30 RATIO [...] = 2219) 17 U/L MICROALBUMIN/CREATININE, RANDOM AND [id number] 00:00:00 Test Item Value Reference Range Interpretation Comments CREATININE, URINE, CONC. (test 97.1 MG/DL code = 2072) ALBUMIN, URINE, RANDOM (test code 18.9 MG/DL = 58205) CALC ALBUMIN/CREAT, RND (test code 195 MG/G = 21292) CBC W/AUTO [id number] 00:00:00 Test Item Value Reference Range Interpretation [...] code = 1015) 284 K/UL CBC W/AUTO [id number] 00:00:00 Test Item Value Reference Range Interpretation [...] code = 1015) 284 K/UL CBC W/AUTO [id number] 00:00:00 Test Item Value Reference Range Interpretation [...] (test code = 1015) 284 K/UL LIPID [id number] 00:00:00 Test Item Value Reference Range Interpretation Comments CHOLESTEROL (test code = 2210) 196 MG/DL TRIGLYCERIDES (test code = 2232) 227 MG/DL HDL CHOLESTEROL (test code = 2220) 44 MG/DL CALC LDL CHOL (test code = 2237) 107 MG/DL RISK RATIO LDL/HDL (test code = 2.42 RATIO 2238) LIPID [id number] 00:00:00 Test Item Value Reference Range Interpretation Comments CHOLESTEROL (test code = 2210) 196 MG/DL TRIGLYCERIDES (test code = 2232) 227 MG/DL HDL CHOLESTEROL (test code = 2220) 44 MG/DL CALC LDL CHOL (test code = 2237) 107 MG/DL RISK RATIO LDL/HDL (test code = 2.42 RATIO 2238) HEMOGLOBIN [id number] 00:00:00 Test Item Value Reference Range Interpretation Comments HEMOGLOBIN A1c (test code = 20119) 9.0 % HEMOGLOBIN [id number] 00:00:00 Test Item Value Reference Range Interpretation Comments HEMOGLOBIN A1c (test code = 80545) 9.0 % HEMOGLOBIN [id number] 00:00:00 Test Item Value Reference Range Interpretation Comments HEMOGLOBIN A1c (test code = 15077) 9.0 % COMPREHENSIVE METABOLIC [id number] 00:00:00 Test Item Value Reference Range Interpretation Comments GLUCOSE (test code = 2217) 133 MG/DL BUN (test code = 2208) 44 MG/DL CREATININE (test code = 2214) 1.46 MG/DL eGFR AMER. (test code 42 ML/MIN/1.73 = 34655) eGFR NON- AMER. (test 36 ML/MIN/1.73 code = 01441) CALC BUN/CREAT (test code = 30 RATIO [...] code = 2219) 17 U/L COMPREHENSIVE METABOLIC [id number] 00:00:00 Test Item Value Reference Range Interpretation Comments GLUCOSE (test code = 2217) 133 MG/DL BUN (test code = 2208) 44 MG/DL CREATININE (test code = 2214) 1.46 MG/DL eGFR AMER. (test code 42 ML/MIN/1.73 = 97435) eGFR NON- AMER. (test 36 ML/MIN/1.73 code = 01804) CALC BUN/CREAT (test code = 30 RATIO [...] = 2219) 17 U/L MICROALBUMIN/CREATININE, RANDOM AND [id number] 00:00:00 Test Item Value Reference Range Interpretation Comments CREATININE, URINE, CONC. (test 97.1 MG/DL code = 2072) ALBUMIN, URINE, RANDOM (test code 18.9 MG/DL = 56367) CALC ALBUMIN/CREAT, RND (test code 195 MG/G = 71828) MICROALBUMIN/CREATININE, RANDOM AND [id number] 00:00:00 Test Item Value Reference Range Interpretation Comments CREATININE, URINE, CONC. (test 97.1 MG/DL code = 2072) ALBUMIN, URINE, RANDOM (test code 18.9 MG/DL = 69183) CALC ALBUMIN/CREAT, RND (test code 195 MG/G = 27481) CBC W/AUTO [id number] 00:00:00 Test Item Value Reference Range Interpretation [...] code = 1015) 284 K/UL CBC W/AUTO [id number] 00:00:00 Test Item Value Reference Range Interpretation [...] code = 1015) 284 K/UL CBC W/AUTO [id number] 00:00:00 Test Item Value Reference Range Interpretation [...] (test code = 1015) 284 K/UL LIPID [id number] 00:00:00 Test Item Value Reference Range Interpretation Comments CHOLESTEROL (test code = 2210) 196 MG/DL TRIGLYCERIDES (test code = 2232) 227 MG/DL HDL CHOLESTEROL (test code = 2220) 44 MG/DL CALC LDL CHOL (test code = 2237) 107 MG/DL RISK RATIO LDL/HDL (test code = 2.42 RATIO 2238) LIPID [id number] 00:00:00 Test Item Value Reference Range Interpretation Comments CHOLESTEROL (test code = 2210) 196 MG/DL TRIGLYCERIDES (test code = 2232) 227 MG/DL HDL CHOLESTEROL (test code = 2220) 44 MG/DL CALC LDL CHOL (test code = 2237) 107 MG/DL RISK RATIO LDL/HDL (test code = 2.42 RATIO 2238) HEMOGLOBIN [id number] 00:00:00 Test Item Value Reference Range Interpretation Comments HEMOGLOBIN A1c (test code = 14284) 9.0 % HEMOGLOBIN [id number] 00:00:00 Test Item Value Reference Range Interpretation Comments HEMOGLOBIN A1c (test code = 16826) 9.0 % HEMOGLOBIN [id number] 00:00:00 Test Item Value Reference Range Interpretation Comments HEMOGLOBIN A1c (test code = 56991) 9.0 % COMPREHENSIVE METABOLIC [id number] 00:00:00 Test Item Value Reference Range Interpretation Comments GLUCOSE (test code = 2217) 235 MG/DL BUN (test code = 2208) 36 MG/DL CREATININE (test code = 2214) 1.62 MG/DL eGFR AMER. (test code 37 ML/MIN/1.73 = 75715) eGFR NON- AMER. (test 32 ML/MIN/1.73 code = 36383) CALC BUN/CREAT (test code = 22 RATIO [...] code = 2219) 9 U/L COMPREHENSIVE METABOLIC [id number] 00:00:00 Test Item Value Reference Range Interpretation Comments GLUCOSE (test code = 2217) 235 MG/DL BUN (test code = 2208) 36 MG/DL CREATININE (test code = 2214) 1.62 MG/DL eGFR AMER. (test code 37 ML/MIN/1.73 = 59156) eGFR NON- AMER. (test 32 ML/MIN/1.73 code = 12830) CALC BUN/CREAT (test code = 22 RATIO [...] code = 2219) 9 U/L COMPREHENSIVE METABOLIC [id number] 00:00:00 Test Item Value Reference Range Interpretation Comments GLUCOSE (test code = 2217) 235 MG/DL BUN (test code = 2208) 36 MG/DL CREATININE (test code = 2214) 1.62 MG/DL eGFR AMER. (test code 37 ML/MIN/1.73 = 93449) eGFR NON- AMER. (test 32 ML/MIN/1.73 code = 05411) CALC BUN/CREAT (test code = 22 RATIO [...] code = 2219) 9 U/L COMPREHENSIVE METABOLIC [id number] 00:00:00 Test Item Value Reference Range Interpretation Comments GLUCOSE (test code = 2217) 235 MG/DL BUN (test code = 2208) 36 MG/DL CREATININE (test code = 2214) 1.62 MG/DL eGFR AMER. (test code 37 ML/MIN/1.73 = 50204) eGFR NON- AMER. (test 32 ML/MIN/1.73 code = 60759) CALC BUN/CREAT (test code = 22 RATIO [...] code = 2219) 9 U/L COMPREHENSIVE METABOLIC [id number] 00:00:00 Test Item Value Reference Range Interpretation Comments GLUCOSE (test code = 2217) 235 MG/DL BUN (test code = 2208) 36 MG/DL CREATININE (test code = 2214) 1.62 MG/DL eGFR AMER. (test code 37 ML/MIN/1.73 = 43633) eGFR NON- AMER. (test 32 ML/MIN/1.73 code = 42189) CALC BUN/CREAT (test code = 22 RATIO [...] ALKALINE PHOSPHATASE (test 85 U/L code = 2203) AST (test code = 2218) 15 U/L ALT (test code = 2219) 9 U/L COMPREHENSIVE METABOLIC [id number] 00:00:00 Test Item Value Reference Range Interpretation Comments GLUCOSE (test code = 2217) 235 MG/DL BUN (test code = 2208) 36 MG/DL CREATININE (test code = 2214) 1.62 MG/DL eGFR AMER. (test code 37 ML/MIN/1.73 = 20295) eGFR NON- AMER. (test 32 ML/MIN/1.73 code = 41606) CALC BUN/CREAT (test code = 22 RATIO [...] code = 2219) 9 U/L COMPREHENSIVE METABOLIC [id number] 00:00:00 Test Item Value Reference Range Interpretation Comments GLUCOSE (test code = 2217) 235 MG/DL BUN (test code = 2208) 36 MG/DL CREATININE (test code = 2214) 1.62 MG/DL eGFR AMER. (test code 37 ML/MIN/1.73 = 85578) eGFR NON- AMER. (test 32 ML/MIN/1.73 code = 21892) CALC BUN/CREAT (test code = 22 RATIO [...] code = 2219) 9 U/L COMPREHENSIVE METABOLIC [id number] 00:00:00 Test Item Value Reference Range Interpretation Comments GLUCOSE (test code = 2217) 235 MG/DL BUN (test code = 2208) 36 MG/DL CREATININE (test code = 2214) 1.62 MG/DL eGFR AMER. (test code 37 ML/MIN/1.73 = 32840) eGFR NON- AMER. (test 32 ML/MIN/1.73 code = 23903) CALC BUN/CREAT (test code = 22 RATIO [...] code = 2219) 9 U/L COMPREHENSIVE METABOLIC [id number] 00:00:00 Test Item Value Reference Range Interpretation Comments GLUCOSE (test code = 2217) 235 MG/DL BUN (test code = 2208) 36 MG/DL CREATININE (test code = 2214) 1.62 MG/DL eGFR AMER. (test code 37 ML/MIN/1.73 = 18425) eGFR NON- AMER. (test 32 ML/MIN/1.73 code = 75621) CALC BUN/CREAT (test code = 22 RATIO [...] code = 2219) 9 U/L COMPREHENSIVE METABOLIC [id number] 00:00:00 Test Item Value Reference Range Interpretation Comments GLUCOSE (test code = 2217) 235 MG/DL BUN (test code = 2208) 36 MG/DL CREATININE (test code = 2214) 1.62 MG/DL eGFR AMER. (test code 37 ML/MIN/1.73 = 63583) eGFR NON- AMER. (test 32 ML/MIN/1.73 code = 11442) CALC BUN/CREAT (test code = 22 RATIO [...] code = 2219) 9 U/L COMPREHENSIVE METABOLIC [id number] 00:00:00 Test Item Value Reference Range Interpretation Comments GLUCOSE (test code = 2217) 235 MG/DL BUN (test code = 2208) 36 MG/DL CREATININE (test code = 2214) 1.62 MG/DL eGFR AMER. (test code 37 ML/MIN/1.73 = 73086) eGFR NON- AMER. (test 32 ML/MIN/1.73 code = 19695) CALC BUN/CREAT (test code = 22 RATIO [...] code = 2219) 9 U/L COMPREHENSIVE METABOLIC [id number] 00:00:00 Test Item Value Reference Range Interpretation Comments GLUCOSE (test code = 2217) 235 MG/DL BUN (test code = 2208) 36 MG/DL CREATININE (test code = 2214) 1.62 MG/DL eGFR AMER. (test code 37 ML/MIN/1.73 = 95817) eGFR NON- AMER. (test 32 ML/MIN/1.73 code = 01127) CALC BUN/CREAT (test code = 22 RATIO [...] code = 2219) 9 U/L COMPREHENSIVE METABOLIC [id number] 00:00:00 Test Item Value Reference Range Interpretation Comments GLUCOSE (test code = 2217) 235 MG/DL BUN (test code = 2208) 36 MG/DL CREATININE (test code = 2214) 1.62 MG/DL eGFR AMER. (test code 37 ML/MIN/1.73 = 61820) eGFR NON- AMER. (test 32 ML/MIN/1.73 code = 58661) CALC BUN/CREAT (test code = 22 RATIO [...] code = 2219) 9 U/L COMPREHENSIVE METABOLIC [id number] 00:00:00 Test Item Value Reference Range Interpretation Comments GLUCOSE (test code = 2217) 235 MG/DL BUN (test code = 2208) 36 MG/DL CREATININE (test code = 2214) 1.62 MG/DL eGFR AMER. (test code 37 ML/MIN/1.73 = 48671) eGFR NON- AMER. (test 32 ML/MIN/1.73 code = 56066) CALC BUN/CREAT (test code = 22 RATIO [...] code = 2219) 9 U/L CBC W/AUTO [id number] 00:00:00 Test Item Value Reference Range Interpretation [...] code = 1015) 247 K/UL CBC W/AUTO [id number] 00:00:00 Test Item Value Reference Range Interpretation [...] code = 1015) 247 K/UL CBC W/AUTO [id number] 00:00:00 Test Item Value Reference Range Interpretation [...] (test code = 1015) 247 K/UL HEMOGLOBIN [id number] 00:00:00 Test Item Value Reference Range Interpretation Comments HEMOGLOBIN A1c (test code = 62753) 7.1 % HEMOGLOBIN [id number] 00:00:00 Test Item Value Reference Range Interpretation Comments HEMOGLOBIN A1c (test code = 93979) 7.1 % HEMOGLOBIN [id number] 00:00:00 Test Item Value Reference Range Interpretation Comments HEMOGLOBIN A1c (test code = 65216) 7.1 % COMPREHENSIVE METABOLIC [id number] 00:00:00 Test Item Value Reference Range Interpretation Comments GLUCOSE (test code = 2217) 116 MG/DL BUN (test code = 2208) 35 MG/DL CREATININE (test code = 2214) 1.31 MG/DL eGFR AMER. (test code 48 ML/MIN/1.73 = 90284) eGFR NON- AMER. (test 41 ML/MIN/1.73 code = 37778) CALC BUN/CREAT (test code = 27 RATIO [...] code = 2219) 10 U/L COMPREHENSIVE METABOLIC [id number] 00:00:00 Test Item Value Reference Range Interpretation Comments GLUCOSE (test code = 2217) 116 MG/DL BUN (test code = 2208) 35 MG/DL CREATININE (test code = 2214) 1.31 MG/DL eGFR AMER. (test code 48 ML/MIN/1.73 = 45925) eGFR NON- AMER. (test 41 ML/MIN/1.73 code = 04569) CALC BUN/CREAT (test code = 27 RATIO [...] code = 2219) 10 U/L CBC W/AUTO [id number] 00:00:00 Test Item Value Reference Range Interpretation [...] code = 1015) 247 K/UL CBC W/AUTO [id number] 00:00:00 Test Item Value Reference Range Interpretation [...] code = 1015) 247 K/UL CBC W/AUTO [id number] 00:00:00 Test Item Value Reference Range Interpretation [...] code = 1015) 247 K/UL CBC W/AUTO [id number] 00:00:00 Test Item Value Reference Range Interpretation [...] code = 1015) 247 K/UL CBC W/AUTO [id number] 00:00:00 Test Item Value Reference Range Interpretation [...] (test code = 1015) 247 K/UL HEMOGLOBIN [id number] 00:00:00 Test Item Value Reference Range Interpretation Comments HEMOGLOBIN A1c (test code = 19168) 7.1 % HEMOGLOBIN [id number] 00:00:00 Test Item Value Reference Range Interpretation Comments HEMOGLOBIN A1c (test code = 84372) 7.1 % HEMOGLOBIN [id number] 00:00:00 Test Item Value Reference Range Interpretation Comments HEMOGLOBIN A1c (test code = 89874) 7.1 % COMPREHENSIVE METABOLIC [id number] 00:00:00 Test Item Value Reference Range Interpretation Comments GLUCOSE (test code = 2217) 116 MG/DL BUN (test code = 2208) 35 MG/DL CREATININE (test code = 2214) 1.31 MG/DL eGFR AMER. (test code 48 ML/MIN/1.73 = 19066) eGFR NON- AMER. (test 41 ML/MIN/1.73 code = 52268) CALC BUN/CREAT (test code = 27 RATIO [...] code = 2219) 10 U/L COMPREHENSIVE METABOLIC [id number] 00:00:00 Test Item Value Reference Range Interpretation Comments GLUCOSE (test code = 2217) 116 MG/DL BUN (test code = 2208) 35 MG/DL CREATININE (test code = 2214) 1.31 MG/DL eGFR AMER. (test code 48 ML/MIN/1.73 = 18111) eGFR NON- AMER. (test 41 ML/MIN/1.73 code = 46868) CALC BUN/CREAT (test code = 27 RATIO [...] (test code = 2219) 10 U/L HEMOGLOBIN [id number] 00:00:00 Test Item Value Reference Range Interpretation Comments HEMOGLOBIN A1c (test code = 35493) 7.1 % HEMOGLOBIN [id number] 00:00:00 Test Item Value Reference Range Interpretation Comments HEMOGLOBIN A1c (test code = 40598) 7.1 % COMPREHENSIVE METABOLIC [id number] 00:00:00 Test Item Value Reference Range Interpretation Comments GLUCOSE (test code = 2217) 116 MG/DL BUN (test code = 2208) 35 MG/DL CREATININE (test code = 2214) 1.31 MG/DL eGFR AMER. (test code 48 ML/MIN/1.73 = 08084) eGFR NON- AMER. (test 41 ML/MIN/1.73 code = 63064) CALC BUN/CREAT (test code = 27 RATIO [...] code = 2219) 10 U/L CBC W/AUTO [id number] 00:00:00 Test Item Value Reference Range Interpretation [...] code = 1015) 247 K/UL CBC W/AUTO [id number] 00:00:00 Test Item Value Reference Range Interpretation [...] code = 1015) 247 K/UL CBC W/AUTO [id number] 00:00:00 Test Item Value Reference Range Interpretation [...] (test code = 1015) 247 K/UL HEMOGLOBIN [id number] 00:00:00 Test Item Value Reference Range Interpretation Comments HEMOGLOBIN A1c (test code = 99974) 7.1 % HEMOGLOBIN [id number] 00:00:00 Test Item Value Reference Range Interpretation Comments HEMOGLOBIN A1c (test code = 63653) 7.1 % HEMOGLOBIN [id number] 00:00:00 Test Item Value Reference Range Interpretation Comments HEMOGLOBIN A1c (test code = 94574) 7.1 % COMPREHENSIVE METABOLIC [id number] 00:00:00 Test Item Value Reference Range Interpretation Comments GLUCOSE (test code = 2217) 116 MG/DL BUN (test code = 2208) 35 MG/DL CREATININE (test code = 2214) 1.31 MG/DL eGFR AMER. (test code 48 ML/MIN/1.73 = 40483) eGFR NON- AMER. (test 41 ML/MIN/1.73 code = 86304) CALC BUN/CREAT (test code = 27 RATIO [...] code = 2219) 10 U/L COMPREHENSIVE METABOLIC [id number] 00:00:00 Test Item Value Reference Range Interpretation Comments GLUCOSE (test code = 2217) 116 MG/DL BUN (test code = 2208) 35 MG/DL CREATININE (test code = 2214) 1.31 MG/DL eGFR AMER. (test code 48 ML/MIN/1.73 = 39734) eGFR NON- AMER. (test 41 ML/MIN/1.73 code = 91820) CALC BUN/CREAT (test code = 27 RATIO [...] code = 2219) 10 U/L CBC W/AUTO [id number] 00:00:00 Test Item Value Reference Range Interpretation [...] code = 1015) 247 K/UL CBC W/AUTO [id number] 00:00:00 Test Item Value Reference Range Interpretation [...] code = 1015) 247 K/UL CBC W/AUTO [id number] 00:00:00 Test Item Value Reference Range Interpretation [...] (test code = 1015) 247 K/UL HEMOGLOBIN [id number] 00:00:00 Test Item Value Reference Range Interpretation Comments HEMOGLOBIN A1c (test code = 06750) 7.1 % HEMOGLOBIN [id number] 00:00:00 Test Item Value Reference Range Interpretation Comments HEMOGLOBIN A1c (test code = 54355) 7.1 % HEMOGLOBIN [id number] 00:00:00 Test Item Value Reference Range Interpretation Comments HEMOGLOBIN A1c (test code = 40679) 7.1 % COMPREHENSIVE METABOLIC [id number] 00:00:00 Test Item Value Reference Range Interpretation Comments GLUCOSE (test code = 2217) 116 MG/DL BUN (test code = 2208) 35 MG/DL CREATININE (test code = 2214) 1.31 MG/DL eGFR AMER. (test code 48 ML/MIN/1.73 = 58545) eGFR NON- AMER. (test 41 ML/MIN/1.73 code = 46946) CALC BUN/CREAT (test code = 27 RATIO [...] code = 2219) 10 U/L COMPREHENSIVE METABOLIC [id number] 00:00:00 Test Item Value Reference Range Interpretation Comments GLUCOSE (test code = 2217) 116 MG/DL BUN (test code = 2208) 35 MG/DL CREATININE (test code = 2214) 1.31 MG/DL eGFR AMER. (test code 48 ML/MIN/1.73 = 20231) eGFR NON- AMER. (test 41 ML/MIN/1.73 code = 84319) CALC BUN/CREAT (test code = 27 RATIO [...] code = 2219) 10 U/L CBC W/AUTO [id number] 00:00:00 Test Item Value Reference Range Interpretation [...] code = 1015) 247 K/UL CBC W/AUTO [id number] 00:00:00 Test Item Value Reference Range Interpretation [...] (test code = 1015) 247 K/UL HEMOGLOBIN [id number] 00:00:00 Test Item Value Reference Range Interpretation Comments HEMOGLOBIN A1c (test code = 11093) 7.1 % HEMOGLOBIN [id number] 00:00:00 Test Item Value Reference Range Interpretation Comments HEMOGLOBIN A1c (test code = 22679) 7.1 % COMPREHENSIVE METABOLIC [id number] 00:00:00 Test Item Value Reference Range Interpretation Comments GLUCOSE (test code = 2217) 116 MG/DL BUN (test code = 2208) 35 MG/DL CREATININE (test code = 2214) 1.31 MG/DL eGFR AMER. (test code 48 ML/MIN/1.73 = 08187) eGFR NON- AMER. (test 41 ML/MIN/1.73 code = 59331) CALC BUN/CREAT (test code = 27 RATIO [...] code = 2219) 10 U/L CBC W/AUTO [id number] 00:00:00 Test Item Value Reference Range Interpretation [...] code = 1015) 247 K/UL CBC W/AUTO [id number] 00:00:00 Test Item Value Reference Range Interpretation [...] code = 1015) 247 K/UL CBC W/AUTO [id number] 00:00:00 Test Item Value Reference Range Interpretation [...] (test code = 1015) 247 K/UL HEMOGLOBIN [id number] 00:00:00 Test Item Value Reference Range Interpretation Comments HEMOGLOBIN A1c (test code = 19903) 7.1 % HEMOGLOBIN [id number] 00:00:00 Test Item Value Reference Range Interpretation Comments HEMOGLOBIN A1c (test code = 59503) 7.1 % HEMOGLOBIN [id number] 00:00:00 Test Item Value Reference Range Interpretation Comments HEMOGLOBIN A1c (test code = 10642) 7.1 % COMPREHENSIVE METABOLIC [id number] 00:00:00 Test Item Value Reference Range Interpretation Comments GLUCOSE (test code = 2217) 116 MG/DL BUN (test code = 2208) 35 MG/DL CREATININE (test code = 2214) 1.31 MG/DL eGFR AMER. (test code 48 ML/MIN/1.73 = 45264) eGFR NON- AMER. (test 41 ML/MIN/1.73 code = 07937) CALC BUN/CREAT (test code = 27 RATIO [...] code = 2219) 10 U/L COMPREHENSIVE METABOLIC [id number] 00:00:00 Test Item Value Reference Range Interpretation Comments GLUCOSE (test code = 2217) 116 MG/DL BUN (test code = 2208) 35 MG/DL CREATININE (test code = 2214) 1.31 MG/DL eGFR AMER. (test code 48 ML/MIN/1.73 = 34799) eGFR NON- AMER. (test 41 ML/MIN/1.73 code = 62756) CALC BUN/CREAT (test code = 27 RATIO [...] code = 2219) 10 U/L CBC W/AUTO [id number] 00:00:00 Test Item Value Reference Range Interpretation [...] code = 1015) 247 K/UL CBC W/AUTO [id number] 00:00:00 Test Item Value Reference Range Interpretation [...] code = 1015) 247 K/UL CBC W/AUTO [id number] 00:00:00 Test Item Value Reference Range Interpretation [...] (test code = 1015) 247 K/UL HEMOGLOBIN [id number] 00:00:00 Test Item Value Reference Range Interpretation Comments HEMOGLOBIN A1c (test code = 10454) 7.1 % HEMOGLOBIN [id number] 00:00:00 Test Item Value Reference Range Interpretation Comments HEMOGLOBIN A1c (test code = 20445) 7.1 % HEMOGLOBIN [id number] 00:00:00 Test Item Value Reference Range Interpretation Comments HEMOGLOBIN A1c (test code = 10713) 7.1 % COMPREHENSIVE METABOLIC [id number] 00:00:00 Test Item Value Reference Range Interpretation Comments GLUCOSE (test code = 2217) 116 MG/DL BUN (test code = 2208) 35 MG/DL CREATININE (test code = 2214) 1.31 MG/DL eGFR AMER. (test code 48 ML/MIN/1.73 = 31129) eGFR NON- AMER. (test 41 ML/MIN/1.73 code = 24875) CALC BUN/CREAT (test code = 27 RATIO [...] code = 2219) 10 U/L COMPREHENSIVE METABOLIC [id number] 00:00:00 Test Item Value Reference Range Interpretation Comments GLUCOSE (test code = 2217) 116 MG/DL BUN (test code = 2208) 35 MG/DL CREATININE (test code = 2214) 1.31 MG/DL eGFR AMER. (test code 48 ML/MIN/1.73 = 25645) eGFR NON- AMER. (test 41 ML/MIN/1.73 code = 19222) CALC BUN/CREAT (test code = 27 RATIO [...] (test code = 2219) 10 U/L HEMOGLOBIN [id number] 00:00:00 Test Item Value Reference Range Interpretation Comments HEMOGLOBIN A1c (test code = 99746) 7.8 % HEMOGLOBIN [id number] 00:00:00 Test Item Value Reference Range Interpretation Comments HEMOGLOBIN A1c (test code = 84370) 7.8 % HEMOGLOBIN [id number] 00:00:00 Test Item Value Reference Range Interpretation Comments HEMOGLOBIN A1c (test code = 68315) 7.8 % COMPREHENSIVE METABOLIC [id number] 00:00:00 Test Item Value Reference Range Interpretation Comments GLUCOSE (test code = 2217) 209 MG/DL BUN (test code = 2208) 44 MG/DL CREATININE (test code = 2214) 1.50 MG/DL eGFR AMER. (test code 41 ML/MIN/1.73 = 71929) eGFR NON- AMER. (test 35 ML/MIN/1.73 code = 75818) CALC BUN/CREAT (test code = 29 RATIO [...] code = 2219) 13 U/L COMPREHENSIVE METABOLIC [id number] 00:00:00 Test Item Value Reference Range Interpretation Comments GLUCOSE (test code = 2217) 209 MG/DL BUN (test code = 2208) 44 MG/DL CREATININE (test code = 2214) 1.50 MG/DL eGFR AMER. (test code 41 ML/MIN/1.73 = 82952) eGFR NON- AMER. (test 35 ML/MIN/1.73 code = 05538) CALC BUN/CREAT (test code = 29 RATIO [...] (test code = 2219) 13 U/L LIPID [id number] 00:00:00 Test Item Value Reference Range Interpretation Comments CHOLESTEROL (test code = 2210) 195 MG/DL TRIGLYCERIDES (test code = 2232) 195 MG/DL HDL CHOLESTEROL (test code = 2220) 49 MG/DL CALC LDL CHOL (test code = 2237) 107 MG/DL RISK RATIO LDL/HDL (test code = 2.18 RATIO 2238) LIPID [id number] 00:00:00 Test Item Value Reference Range Interpretation Comments CHOLESTEROL (test code = 2210) 195 MG/DL TRIGLYCERIDES (test code = 2232) 195 MG/DL HDL CHOLESTEROL (test code = 2220) 49 MG/DL CALC LDL CHOL (test code = 2237) 107 MG/DL RISK RATIO LDL/HDL (test code = 2.18 RATIO 2238) CBC W/AUTO [id number] 00:00:00 Test Item Value Reference Range Interpretation [...] code = 1015) 245 K/UL CBC W/AUTO [id number] 00:00:00 Test Item Value Reference Range Interpretation [...] code = 1015) 245 K/UL CBC W/AUTO [id number] 00:00:00 Test Item Value Reference Range Interpretation [...] (test code = 1015) 245 K/UL HEMOGLOBIN [id number] 00:00:00 Test Item Value Reference Range Interpretation Comments HEMOGLOBIN A1c (test code = 41445) 7.8 % HEMOGLOBIN [id number] 00:00:00 Test Item Value Reference Range Interpretation Comments HEMOGLOBIN A1c (test code = 66416) 7.8 % HEMOGLOBIN [id number] 00:00:00 Test Item Value Reference Range Interpretation Comments HEMOGLOBIN A1c (test code = 45103) 7.8 % COMPREHENSIVE METABOLIC [id number] 00:00:00 Test Item Value Reference Range Interpretation Comments GLUCOSE (test code = 2217) 209 MG/DL BUN (test code = 2208) 44 MG/DL CREATININE (test code = 2214) 1.50 MG/DL eGFR AMER. (test code 41 ML/MIN/1.73 = 88788) eGFR NON- AMER. (test 35 ML/MIN/1.73 code = 33452) CALC BUN/CREAT (test code = 29 RATIO [...] code = 2219) 13 U/L COMPREHENSIVE METABOLIC [id number] 00:00:00 Test Item Value Reference Range Interpretation Comments GLUCOSE (test code = 2217) 209 MG/DL BUN (test code = 2208) 44 MG/DL CREATININE (test code = 2214) 1.50 MG/DL eGFR AMER. (test code 41 ML/MIN/1.73 = 82502) eGFR NON- AMER. (test 35 ML/MIN/1.73 code = 34770) CALC BUN/CREAT (test code = 29 RATIO [...] ALKALINE PHOSPHATASE (test 81 U/L code = 220) AST (test code = 2218) 14 U/L ALT (test code = 2219) 13 U/L COMPREHENSIVE METABOLIC [id number] 00:00:00 Test Item Value Reference Range Interpretation Comments GLUCOSE (test code = 2217) 209 MG/DL BUN (test code = 2208) 44 MG/DL CREATININE (test code = 2214) 1.50 MG/DL eGFR AMER. (test code 41 ML/MIN/1.73 = 55885) eGFR NON- AMER. (test 35 ML/MIN/1.73 code = 63054) CALC BUN/CREAT (test code = 29 RATIO [...] (test code = 2219) 13 U/L LIPID [id number] 00:00:00 Test Item Value Reference Range Interpretation Comments CHOLESTEROL (test code = 2210) 195 MG/DL TRIGLYCERIDES (test code = 2232) 195 MG/DL HDL CHOLESTEROL (test code = 2220) 49 MG/DL CALC LDL CHOL (test code = 2237) 107 MG/DL RISK RATIO LDL/HDL (test code = 2.18 RATIO 2238) LIPID [id number] 00:00:00 Test Item Value Reference Range Interpretation Comments CHOLESTEROL (test code = 2210) 195 MG/DL TRIGLYCERIDES (test code = 2232) 195 MG/DL HDL CHOLESTEROL (test code = 2220) 49 MG/DL CALC LDL CHOL (test code = 2237) 107 MG/DL RISK RATIO LDL/HDL (test code = 2.18 RATIO 2238) CBC W/AUTO [id number] 00:00:00 Test Item Value Reference Range Interpretation [...] code = 1015) 245 K/UL CBC W/AUTO [id number] 00:00:00 Test Item Value Reference Range Interpretation [...] code = 1015) 245 K/UL CBC W/AUTO [id number] 00:00:00 Test Item Value Reference Range Interpretation [...] (test code = 1015) 245 K/UL HEMOGLOBIN [id number] 00:00:00 Test Item Value Reference Range Interpretation Comments HEMOGLOBIN A1c (test code = 80090) 7.8 % HEMOGLOBIN [id number] 00:00:00 Test Item Value Reference Range Interpretation Comments HEMOGLOBIN A1c (test code = 97274) 7.8 % HEMOGLOBIN [id number] 00:00:00 Test Item Value Reference Range Interpretation Comments HEMOGLOBIN A1c (test code = 13308) 7.8 % LIPID [id number] 00:00:00 Test Item Value Reference Range Interpretation Comments CHOLESTEROL (test code = 2210) 195 MG/DL TRIGLYCERIDES (test code = 2232) 195 MG/DL HDL CHOLESTEROL (test code = 2220) 49 MG/DL CALC LDL CHOL (test code = 2237) 107 MG/DL RISK RATIO LDL/HDL (test code = 2.18 RATIO 2238) CBC W/AUTO [id number] 00:00:00 Test Item Value Reference Range Interpretation [...] code = 1015) 245 K/UL CBC W/AUTO [id number] 00:00:00 Test Item Value Reference Range Interpretation [...] (test code = 1015) 245 K/UL HEMOGLOBIN [id number] 00:00:00 Test Item Value Reference Range Interpretation Comments HEMOGLOBIN A1c (test code = 67424) 7.8 % COMPREHENSIVE METABOLIC [id number] 00:00:00 Test Item Value Reference Range Interpretation Comments GLUCOSE (test code = 2217) 209 MG/DL BUN (test code = 2208) 44 MG/DL CREATININE (test code = 2214) 1.50 MG/DL eGFR AMER. (test code 41 ML/MIN/1.73 = 95155) eGFR NON- AMER. (test 35 ML/MIN/1.73 code = 79092) CALC BUN/CREAT (test code = 29 RATIO [...] code = 2219) 13 U/L COMPREHENSIVE METABOLIC [id number] 00:00:00 Test Item Value Reference Range Interpretation Comments GLUCOSE (test code = 2217) 209 MG/DL BUN (test code = 2208) 44 MG/DL CREATININE (test code = 2214) 1.50 MG/DL eGFR AMER. (test code 41 ML/MIN/1.73 = 87899) eGFR NON- AMER. (test 35 ML/MIN/1.73 code = 85742) CALC BUN/CREAT (test code = 29 RATIO [...] (test code = 2219) 13 U/L LIPID [id number] 00:00:00 Test Item Value Reference Range Interpretation Comments CHOLESTEROL (test code = 2210) 195 MG/DL TRIGLYCERIDES (test code = 2232) 195 MG/DL HDL CHOLESTEROL (test code = 2220) 49 MG/DL CALC LDL CHOL (test code = 2237) 107 MG/DL RISK RATIO LDL/HDL (test code = 2.18 RATIO 2238) LIPID [id number] 00:00:00 Test Item Value Reference Range Interpretation Comments CHOLESTEROL (test code = 2210) 195 MG/DL TRIGLYCERIDES (test code = 2232) 195 MG/DL HDL CHOLESTEROL (test code = 2220) 49 MG/DL CALC LDL CHOL (test code = 2237) 107 MG/DL RISK RATIO LDL/HDL (test code = 2.18 RATIO 2238) HEMOGLOBIN [id number] 00:00:00 Test Item Value Reference Range Interpretation Comments HEMOGLOBIN A1c (test code = 76787) 7.8 % CBC W/AUTO [id number] 00:00:00 Test Item Value Reference Range Interpretation [...] code = 1015) 245 K/UL CBC W/AUTO [id number] 00:00:00 Test Item Value Reference Range Interpretation [...] code = 1015) 245 K/UL CBC W/AUTO [id number] 00:00:00 Test Item Value Reference Range Interpretation [...] (test code = 1015) 245 K/UL HEMOGLOBIN [id number] 00:00:00 Test Item Value Reference Range Interpretation Comments HEMOGLOBIN A1c (test code = 29030) 7.8 % HEMOGLOBIN [id number] 00:00:00 Test Item Value Reference Range Interpretation Comments HEMOGLOBIN A1c (test code = 50499) 7.8 % HEMOGLOBIN [id number] 00:00:00 Test Item Value Reference Range Interpretation Comments HEMOGLOBIN A1c (test code = 11326) 7.8 % COMPREHENSIVE METABOLIC [id number] 00:00:00 Test Item Value Reference Range Interpretation Comments GLUCOSE (test code = 2217) 209 MG/DL BUN (test code = 2208) 44 MG/DL CREATININE (test code = 2214) 1.50 MG/DL eGFR AMER. (test code 41 ML/MIN/1.73 = 01661) eGFR NON- AMER. (test 35 ML/MIN/1.73 code = 61520) CALC BUN/CREAT (test code = 29 RATIO [...] code = 2219) 13 U/L COMPREHENSIVE METABOLIC [id number] 00:00:00 Test Item Value Reference Range Interpretation Comments GLUCOSE (test code = 2217) 209 MG/DL BUN (test code = 2208) 44 MG/DL CREATININE (test code = 2214) 1.50 MG/DL eGFR AMER. (test code 41 ML/MIN/1.73 = 71877) eGFR NON- AMER. (test 35 ML/MIN/1.73 code = 54832) CALC BUN/CREAT (test code = 29 RATIO [...] (test code = 2219) 13 U/L LIPID [id number] 00:00:00 Test Item Value Reference Range Interpretation Comments CHOLESTEROL (test code = 2210) 195 MG/DL TRIGLYCERIDES (test code = 2232) 195 MG/DL HDL CHOLESTEROL (test code = 2220) 49 MG/DL CALC LDL CHOL (test code = 2237) 107 MG/DL RISK RATIO LDL/HDL (test code = 2.18 RATIO 2238) LIPID [id number] 00:00:00 Test Item Value Reference Range Interpretation Comments CHOLESTEROL (test code = 2210) 195 MG/DL TRIGLYCERIDES (test code = 2232) 195 MG/DL HDL CHOLESTEROL (test code = 2220) 49 MG/DL CALC LDL CHOL (test code = 2237) 107 MG/DL RISK RATIO LDL/HDL (test code = 2.18 RATIO 2238) CBC W/AUTO [id number] 00:00:00 Test Item Value Reference Range Interpretation [...] code = 1015) 245 K/UL CBC W/AUTO [id number] 00:00:00 Test Item Value Reference Range Interpretation [...] code = 1015) 245 K/UL CBC W/AUTO [id number] 00:00:00 Test Item Value Reference Range Interpretation [...] (test code = 1015) 245 K/UL HEMOGLOBIN [id number] 00:00:00 Test Item Value Reference Range Interpretation Comments HEMOGLOBIN A1c (test code = 74937) 7.8 % HEMOGLOBIN [id number] 00:00:00 Test Item Value Reference Range Interpretation Comments HEMOGLOBIN A1c (test code = 60862) 7.8 % HEMOGLOBIN [id number] 00:00:00 Test Item Value Reference Range Interpretation Comments HEMOGLOBIN A1c (test code = 57718) 7.8 % COMPREHENSIVE METABOLIC [id number] 00:00:00 Test Item Value Reference Range Interpretation Comments GLUCOSE (test code = 2217) 209 MG/DL BUN (test code = 2208) 44 MG/DL CREATININE (test code = 2214) 1.50 MG/DL eGFR AMER. (test code 41 ML/MIN/1.73 = 49492) eGFR NON- AMER. (test 35 ML/MIN/1.73 code = 88194) CALC BUN/CREAT (test code = 29 RATIO [...] (test code = 2219) 13 U/L LIPID [id number] 00:00:00 Test Item Value Reference Range Interpretation Comments CHOLESTEROL (test code = 2210) 195 MG/DL TRIGLYCERIDES (test code = 2232) 195 MG/DL HDL CHOLESTEROL (test code = 2220) 49 MG/DL CALC LDL CHOL (test code = 2237) 107 MG/DL RISK RATIO LDL/HDL (test code = 2.18 RATIO 2238) CBC W/AUTO [id number] 00:00:00 Test Item Value Reference Range Interpretation [...] code = 1015) 245 K/UL CBC W/AUTO [id number] 00:00:00 Test Item Value Reference Range Interpretation [...] (test code = 1015) 245 K/UL HEMOGLOBIN [id number] 00:00:00 Test Item Value Reference Range Interpretation Comments HEMOGLOBIN A1c (test code = 54804) 7.8 % HEMOGLOBIN [id number] 00:00:00 Test Item Value Reference Range Interpretation Comments HEMOGLOBIN A1c (test code = 25266) 7.8 % COMPREHENSIVE METABOLIC [id number] 00:00:00 Test Item Value Reference Range Interpretation Comments GLUCOSE (test code = 2217) 209 MG/DL BUN (test code = 2208) 44 MG/DL CREATININE (test code = 2214) 1.50 MG/DL eGFR AMER. (test code 41 ML/MIN/1.73 = 33378) eGFR NON- AMER. (test 35 ML/MIN/1.73 code = 15696) CALC BUN/CREAT (test code = 29 RATIO [...] code = 2219) 13 U/L COMPREHENSIVE METABOLIC [id number] 00:00:00 Test Item Value Reference Range Interpretation Comments GLUCOSE (test code = 2217) 209 MG/DL BUN (test code = 2208) 44 MG/DL CREATININE (test code = 2214) 1.50 MG/DL eGFR AMER. (test code 41 ML/MIN/1.73 = 84427) eGFR NON- AMER. (test 35 ML/MIN/1.73 code = 34982) CALC BUN/CREAT (test code = 29 RATIO [...] (test code = 2219) 13 U/L LIPID [id number] 00:00:00 Test Item Value Reference Range Interpretation Comments CHOLESTEROL (test code = 2210) 195 MG/DL TRIGLYCERIDES (test code = 2232) 195 MG/DL HDL CHOLESTEROL (test code = 2220) 49 MG/DL CALC LDL CHOL (test code = 2237) 107 MG/DL RISK RATIO LDL/HDL (test code = 2.18 RATIO 2238) LIPID [id number] 00:00:00 Test Item Value Reference Range Interpretation Comments CHOLESTEROL (test code = 2210) 195 MG/DL TRIGLYCERIDES (test code = 2232) 195 MG/DL HDL CHOLESTEROL (test code = 2220) 49 MG/DL CALC LDL CHOL (test code = 2237) 107 MG/DL RISK RATIO LDL/HDL (test code = 2.18 RATIO 2238) CBC W/AUTO [id number] 00:00:00 Test Item Value Reference Range Interpretation [...] code = 1015) 245 K/UL CBC W/AUTO [id number] 00:00:00 Test Item Value Reference Range Interpretation [...] code = 1015) 245 K/UL CBC W/AUTO [id number] 00:00:00 Test Item Value Reference Range Interpretation [...] (test code = 1015) 245 K/UL HEMOGLOBIN [id number] 00:00:00 Test Item Value Reference Range Interpretation Comments HEMOGLOBIN A1c (test code = 94688) 7.8 % HEMOGLOBIN [id number] 00:00:00 Test Item Value Reference Range Interpretation Comments HEMOGLOBIN A1c (test code = 63347) 7.8 % HEMOGLOBIN [id number] 00:00:00 Test Item Value Reference Range Interpretation Comments HEMOGLOBIN A1c (test code = 89136) 7.8 % COMPREHENSIVE METABOLIC [id number] 00:00:00 Test Item Value Reference Range Interpretation Comments GLUCOSE (test code = 2217) 209 MG/DL BUN (test code = 2208) 44 MG/DL CREATININE (test code = 2214) 1.50 MG/DL eGFR AMER. (test code 41 ML/MIN/1.73 = 95088) eGFR NON- AMER. (test 35 ML/MIN/1.73 code = 19208) CALC BUN/CREAT (test code = 29 RATIO [...] code = 2219) 13 U/L COMPREHENSIVE METABOLIC [id number] 00:00:00 Test Item Value Reference Range Interpretation Comments GLUCOSE (test code = 2217) 209 MG/DL BUN (test code = 2208) 44 MG/DL CREATININE (test code = 2214) 1.50 MG/DL eGFR AMER. (test code 41 ML/MIN/1.73 = 75262) eGFR NON- AMER. (test 35 ML/MIN/1.73 code = 77135) CALC BUN/CREAT (test code = 29 RATIO [...] (test code = 2219) 13 U/L LIPID [id number] 00:00:00 Test Item Value Reference Range Interpretation Comments CHOLESTEROL (test code = 2210) 195 MG/DL TRIGLYCERIDES (test code = 2232) 195 MG/DL HDL CHOLESTEROL (test code = 2220) 49 MG/DL CALC LDL CHOL (test code = 2237) 107 MG/DL RISK RATIO LDL/HDL (test code = 2.18 RATIO 2238) LIPID [id number] 00:00:00 Test Item Value Reference Range Interpretation Comments CHOLESTEROL (test code = 2210) 195 MG/DL TRIGLYCERIDES (test code = 2232) 195 MG/DL HDL CHOLESTEROL (test code = 2220) 49 MG/DL CALC LDL CHOL (test code = 2237) 107 MG/DL RISK RATIO LDL/HDL (test code = 2.18 RATIO 2238) CBC W/AUTO [id number] 00:00:00 Test Item Value Reference Range Interpretation [...] code = 1015) 245 K/UL CBC W/AUTO [id number] 00:00:00 Test Item Value Reference Range Interpretation [...] code = 1015) 245 K/UL CBC W/AUTO [id number] 00:00:00 Test Item Value Reference Range Interpretation [...] eGFR AMER. (test code 55 ML/MIN/1.73 = 42084) eGFR NON- AMER. (test 48 ML/MIN/1.73 code = 32903) CALC BUN/CREAT (test code = 17 RATIO [...] eGFR AMER. (test code 55 ML/MIN/1.73 = 75628) eGFR NON- AMER. (test 48 ML/MIN/1.73 code = 22661) CALC BUN/CREAT (test code = 17 RATIO [...] URINE, RANDOM (test code 226.7 MG/DL = 78369) CALC ALBUMIN/CREAT, RND (test 1246 MG/G code = 19351) ALBUMIN/CREATININE RATIO, RANDOM URINE [ADDED]2018-02-14 00:00:00 Test Item Value Reference Range Interpretation Comments CREATININE, URINE, CONC. (test 181.9 MG/DL code = 2072) ALBUMIN, URINE, RANDOM (test code 226.7 MG/DL = 01091) CALC ALBUMIN/CREAT, RND (test 1246 MG/G code = 28952) CBC W/AUTO DIFF WITH PLATELETS [ADDED]2018-02-14 00:00:00 [...] Interpretation Comments HEMOGLOBIN A1c (test code = 30974) 7.3 % HEMOGLOBIN A1c [ADDED]2018-02-14 00:00:00 Test Item Value Reference Range Interpretation Comments HEMOGLOBIN A1c (test code = 45646) 7.3 % HEMOGLOBIN A1c [ADDED]2018-02-14 00:00:00 Test Item Value Reference Range Interpretation Comments HEMOGLOBIN A1c (test code = 57022) 7.3 % LIPID PANEL [ADDED]2018-02-14 00:00:00 Test [...] eGFR AMER. (test code 55 ML/MIN/1.73 = 75120) eGFR NON- AMER. (test 48 ML/MIN/1.73 code = 65168) CALC BUN/CREAT (test code = 17 RATIO [...] eGFR AMER. (test code 55 ML/MIN/1.73 = 94440) eGFR NON- AMER. (test 48 ML/MIN/1.73 code = 10817) CALC BUN/CREAT (test code = 17 RATIO [...] URINE, RANDOM (test code 226.7 MG/DL = 43460) CALC ALBUMIN/CREAT, RND (test 1246 MG/G code = 98161) ALBUMIN/CREATININE RATIO, RANDOM URINE [ADDED]2018-02-14 00:00:00 Test Item Value Reference Range Interpretation Comments CREATININE, URINE, CONC. (test 181.9 MG/DL code = 2072) ALBUMIN, URINE, RANDOM (test code 226.7 MG/DL = 93794) CALC ALBUMIN/CREAT, RND (test 1246 MG/G code = 19523) CBC W/AUTO DIFF WITH PLATELETS [ADDED]2018-02-14 00:00:00 [...] Interpretation Comments HEMOGLOBIN A1c (test code = 97643) 7.3 % HEMOGLOBIN A1c [ADDED]2018-02-14 00:00:00 Test Item Value Reference Range Interpretation Comments HEMOGLOBIN A1c (test code = 99848) 7.3 % HEMOGLOBIN A1c [ADDED]2018-02-14 00:00:00 Test Item Value Reference Range Interpretation Comments HEMOGLOBIN A1c (test code = 49954) 7.3 % HEMOGLOBIN A1c [ADDED]2018-02-14 00:00:00 Test Item Value Reference Range Interpretation Comments HEMOGLOBIN A1c (test code = 01336) 7.3 % LIPID PANEL [ADDED]2018-02-14 00:00:00 Test [...] eGFR AMER. (test code 55 ML/MIN/1.73 = 42331) eGFR NON- AMER. (test 48 ML/MIN/1.73 code = 06638) CALC BUN/CREAT (test code = 17 RATIO [...] eGFR AMER. (test code 55 ML/MIN/1.73 = 91886) eGFR NON- AMER. (test 48 ML/MIN/1.73 code = 94162) CALC BUN/CREAT (test code = 17 RATIO [...] Interpretation Comments HEMOGLOBIN A1c (test code = 55952) 7.3 % ALBUMIN/CREATININE RATIO, RANDOM URINE [ADDED]2018-02-14 00:00:00 Test Item Value Reference Range Interpretation Comments CREATININE, URINE, CONC. (test 181.9 MG/DL code = 2072) ALBUMIN, URINE, RANDOM (test code 226.7 MG/DL = 41876) CALC ALBUMIN/CREAT, RND (test 1246 MG/G code = 41340) ALBUMIN/CREATININE RATIO, RANDOM URINE [ADDED]2018-02-14 00:00:00 Test Item Value Reference Range Interpretation Comments CREATININE, URINE, CONC. (test 181.9 MG/DL code = 2072) ALBUMIN, URINE, RANDOM (test code 226.7 MG/DL = 36193) CALC ALBUMIN/CREAT, RND (test 1246 MG/G code = 20219) LIPID PANEL [ADDED]2018-02-14 00:00:00 Test Item Value [...] Interpretation Comments HEMOGLOBIN A1c (test code = 10943) 7.3 % HEMOGLOBIN A1c [ADDED]2018-02-14 00:00:00 Test Item Value Reference Range Interpretation Comments HEMOGLOBIN A1c (test code = 85602) 7.3 % COMPREHENSIVE METABOLIC PANEL [ADDED]2018-02-14 00:00:00 Test Item Value Reference Range Interpretation Comments GLUCOSE (test code = 2217) 177 MG/DL BUN (test code = 2208) 20 MG/DL CREATININE (test code = 2214) 1.17 MG/DL eGFR AMER. (test code 55 ML/MIN/1.73 = 00785) eGFR NON- AMER. (test 48 ML/MIN/1.73 code = 04762) CALC BUN/CREAT (test code = 17 RATIO [...] Interpretation Comments HEMOGLOBIN A1c (test code = 19483) 7.3 % LIPID PANEL [ADDED]2018-02-14 00:00:00 Test [...] eGFR AMER. (test code 55 ML/MIN/1.73 = 24581) eGFR NON- AMER. (test 48 ML/MIN/1.73 code = 45693) CALC BUN/CREAT (test code = 17 RATIO [...] eGFR AMER. (test code 55 ML/MIN/1.73 = 92739) eGFR NON- AMER. (test 48 ML/MIN/1.73 code = 78995) CALC BUN/CREAT (test code = 17 RATIO [...] URINE, RANDOM (test code 226.7 MG/DL = 49166) CALC ALBUMIN/CREAT, RND (test 1246 MG/G code = 38128) ALBUMIN/CREATININE RATIO, RANDOM URINE [ADDED]2018-02-14 00:00:00 Test Item Value Reference Range Interpretation Comments CREATININE, URINE, CONC. (test 181.9 MG/DL code = 2072) ALBUMIN, URINE, RANDOM (test code 226.7 MG/DL = 96417) CALC ALBUMIN/CREAT, RND (test 1246 MG/G code = 43010) ALBUMIN/CREATININE RATIO, RANDOM URINE [ADDED]2018-02-14 00:00:00 Test Item Value Reference Range Interpretation Comments CREATININE, URINE, CONC. (test 181.9 MG/DL code = 2072) ALBUMIN, URINE, RANDOM (test code 226.7 MG/DL = 63875) CALC ALBUMIN/CREAT, RND (test 1246 MG/G code = 48861) CBC W/AUTO DIFF WITH PLATELETS [ADDED]2018-02-14 00:00:00 [...] Interpretation Comments HEMOGLOBIN A1c (test code = 39589) 7.3 % HEMOGLOBIN A1c [ADDED]2018-02-14 00:00:00 Test Item Value Reference Range Interpretation Comments HEMOGLOBIN A1c (test code = 90757) 7.3 % HEMOGLOBIN A1c [ADDED]2018-02-14 00:00:00 Test Item Value Reference Range Interpretation Comments HEMOGLOBIN A1c (test code = 61540) 7.3 % LIPID PANEL [ADDED]2018-02-14 00:00:00 Test [...] eGFR AMER. (test code 55 ML/MIN/1.73 = 56317) eGFR NON- AMER. (test 48 ML/MIN/1.73 code = 14769) CALC BUN/CREAT (test code = 17 RATIO [...] eGFR AMER. (test code 55 ML/MIN/1.73 = 11612) eGFR NON- AMER. (test 48 ML/MIN/1.73 code = 30090) CALC BUN/CREAT (test code = 17 RATIO [...] URINE, RANDOM (test code 226.7 MG/DL = 31414) CALC ALBUMIN/CREAT, RND (test 1246 MG/G code = 71444) ALBUMIN/CREATININE RATIO, RANDOM URINE [ADDED]2018-02-14 00:00:00 Test Item Value Reference Range Interpretation Comments CREATININE, URINE, CONC. (test 181.9 MG/DL code = 2072) ALBUMIN, URINE, RANDOM (test code 226.7 MG/DL = 90733) CALC ALBUMIN/CREAT, RND (test 1246 MG/G code = 89236) CBC W/AUTO DIFF WITH PLATELETS [ADDED]2018-02-14 00:00:00 [...] Interpretation Comments HEMOGLOBIN A1c (test code = 39527) 7.3 % HEMOGLOBIN A1c [ADDED]2018-02-14 00:00:00 Test Item Value Reference Range Interpretation Comments HEMOGLOBIN A1c (test code = 26484) 7.3 % LIPID PANEL [ADDED]2018-02-14 00:00:00 Test [...] eGFR AMER. (test code 55 ML/MIN/1.73 = 86587) eGFR NON- AMER. (test 48 ML/MIN/1.73 code = 90451) CALC BUN/CREAT (test code = 17 RATIO [...] URINE, RANDOM (test code 226.7 MG/DL = 57498) CALC ALBUMIN/CREAT, RND (test 1246 MG/G code = 25853) CBC W/AUTO DIFF WITH PLATELETS [ADDED]2018-02-14 00:00:00 [...] Interpretation Comments HEMOGLOBIN A1c (test code = 81928) 7.3 % HEMOGLOBIN A1c [ADDED]2018-02-14 00:00:00 Test Item Value Reference Range Interpretation Comments HEMOGLOBIN A1c (test code = 76313) 7.3 % HEMOGLOBIN A1c [ADDED]2018-02-14 00:00:00 Test Item Value Reference Range Interpretation Comments HEMOGLOBIN A1c (test code = 01725) 7.3 % LIPID PANEL [ADDED]2018-02-14 00:00:00 Test [...] eGFR AMER. (test code 55 ML/MIN/1.73 = 79771) eGFR NON- AMER. (test 48 ML/MIN/1.73 code = 58403) CALC BUN/CREAT (test code = 17 RATIO [...] eGFR AMER. (test code 55 ML/MIN/1.73 = 79767) eGFR NON- AMER. (test 48 ML/MIN/1.73 code = 87394) CALC BUN/CREAT (test code = 17 RATIO [...] URINE, RANDOM (test code 226.7 MG/DL = 72263) CALC ALBUMIN/CREAT, RND (test 1246 MG/G code = 36847) ALBUMIN/CREATININE RATIO, RANDOM URINE [ADDED]2018-02-14 00:00:00 Test Item Value Reference Range Interpretation Comments CREATININE, URINE, CONC. (test 181.9 MG/DL code = 2072) ALBUMIN, URINE, RANDOM (test code 226.7 MG/DL = 34028) CALC ALBUMIN/CREAT, RND (test 1246 MG/G code = 63161) CBC W/AUTO DIFF WITH PLATELETS [ADDED]2018-02-14 00:00:00 [...] Interpretation Comments HEMOGLOBIN A1c (test code = 53005) 7.3 % HEMOGLOBIN A1c [ADDED]2018-02-14 00:00:00 Test Item Value Reference Range Interpretation Comments HEMOGLOBIN A1c (test code = 58620) 7.3 % HEMOGLOBIN A1c [ADDED]2018-02-14 00:00:00 Test Item Value Reference Range Interpretation Comments HEMOGLOBIN A1c (test code = 48447) 7.3 % LIPID PANEL [ADDED]2018-02-14 00:00:00 Test Item Value Reference Range Interpretation Comments CHOLESTEROL (test code = 2210) 261 MG/DL TRIGLYCERIDES (test code = 2232) 239 MG/DL HDL CHOLESTEROL (test code = 2220) 52 MG/DL CALC LDL CHOL (test code = 2237) 161 MG/DL RISK RATIO LDL/HDL (test code = 3.10 RATIO 2238) WEEMS AND DECORATING INSTRUCTOR [id number] 00:00:00 Test Item Value Reference Range Interpretation Comments WEEMS (Sm) ANTIBODY (test code = <0.2 AI 31683) DECORATING INSTRUCTOR ANTIBODY (test code = 32865) 6.4 AI HEMOGLOBIN [id number] 00:00:00 Test Item Value Reference Range Interpretation Comments HEMOGLOBIN A1c (test code = 77632) 7.5 % HEMOGLOBIN [id number] 00:00:00 Test Item Value Reference Range Interpretation Comments HEMOGLOBIN A1c (test code = 93646) 7.5 % WEEMS AND DECORATING INSTRUCTOR [id number] 00:00:00 Test Item Value Reference Range Interpretation Comments WEEMS (Sm) ANTIBODY (test code = <0.2 AI 29941) DECORATING INSTRUCTOR ANTIBODY (test code = 33625) 6.4 AI HEMOGLOBIN [id number] 00:00:00 Test Item Value Reference Range Interpretation Comments HEMOGLOBIN A1c (test code = 62733) 7.5 % DNA DS ANTIBODY [id number] 00:00:00 Test Item Value Reference Range Interpretation Comments dsDNA ANTIBODY REFLEX (test code = NEGATIVE 70641) LIPID PANEL [ADDED]2017-07-31 00:00:00 Test Item Value [...] = 1.51 RATIO 2238) DNA DS ANTIBODY [id number] 00:00:00 Test Item Value Reference Range Interpretation Comments dsDNA ANTIBODY REFLEX (test code = NEGATIVE 37469) DNA DS [id number] 00:00:00 Test Item Value Reference Range Interpretation Comments dsDNA ANTIBODY (test code = 4287) <1.0 IU/ML DNA DS [id number] 00:00:00 Test Item Value Reference Range Interpretation Comments dsDNA ANTIBODY (test code = 4287) <1.0 IU/ML WE[employer] AND DECORATING INSTRUCTOR [id number] 00:00:00 Test Item Value Reference Range Interpretation Comments WEEMS (Sm) ANTIBODY (test code = <0.2 AI 62490) DECORATING INSTRUCTOR ANTIBODY (test code = 49684) 6.4 AI HEMOGLOBIN [id number] 00:00:00 Test Item Value Reference Range Interpretation Comments HEMOGLOBIN A1c (test code = 72777) 7.5 % WEEMS AND DECORATING INSTRUCTOR [id number] 00:00:00 Test Item Value Reference Range Interpretation Comments WEEMS (Sm) ANTIBODY (test code = <0.2 AI 16887) DECORATING INSTRUCTOR ANTIBODY (test code = 21019) 6.4 AI HEMOGLOBIN [id number] 00:00:00 Test Item Value Reference Range Interpretation Comments HEMOGLOBIN A1c (test code = 76007) 7.5 % WEEMS AND DECORATING INSTRUCTOR [id number] 00:00:00 Test Item Value Reference Range Interpretation Comments WEEMS (Sm) ANTIBODY (test code = <0.2 AI 20054) DECORATING INSTRUCTOR ANTIBODY (test code = 78448) 6.4 AI HEMOGLOBIN [id number] 00:00:00 Test Item Value Reference Range Interpretation Comments HEMOGLOBIN A1c (test code = 84806) 7.5 % HEMOGLOBIN [id number] 00:00:00 Test Item Value Reference Range Interpretation Comments HEMOGLOBIN A1c (test code = 72023) 7.5 % HEMOGLOBIN [id number] 00:00:00 Test Item Value Reference Range Interpretation Comments HEMOGLOBIN A1c (test code = 56291) 7.5 % LIPID PANEL [ADDED]2017-07-31 00:00:00 Test [...] = 1.51 RATIO 2238) DNA DS ANTIBODY [id number] 00:00:00 Test Item Value Reference Range Interpretation Comments dsDNA ANTIBODY REFLEX (test code = NEGATIVE 02957) DNA DS ANTIBODY [id number] 00:00:00 Test Item Value Reference Range Interpretation Comments dsDNA ANTIBODY REFLEX (test code = NEGATIVE 02440) DNA DS ANTIBODY [id number] 00:00:00 Test Item Value Reference Range Interpretation Comments dsDNA ANTIBODY REFLEX (test code = NEGATIVE 68238) LIPID PANEL [ADDED]2017-07-31 00:00:00 Test Item Value Reference Range Interpretation Comments CHOLESTEROL (test code = 2210) 179 MG/DL TRIGLYCERIDES (test code = 2232) 193 MG/DL HDL CHOLESTEROL (test code = 2220) 56 MG/DL CALC LDL CHOL (test code = 2237) 84 MG/DL RISK RATIO LDL/HDL (test code = 1.51 RATIO 2238) DNA DS [id number] 00:00:00 Test Item Value Reference Range Interpretation Comments dsDNA ANTIBODY (test code = 4287) <1.0 IU/ML DNA DS [id number] 00:00:00 Test Item Value Reference Range Interpretation Comments dsDNA ANTIBODY (test code = 4287) <1.0 IU/ML DNA DS [id number] 00:00:00 Test Item Value Reference Range Interpretation Comments dsDNA ANTIBODY (test code = 4287) <1.0 IU/ML WEEM[employer] AND DECORATING INSTRUCTOR [id number] 00:00:00 Test Item Value Reference Range Interpretation Comments WEEMS (Sm) ANTIBODY (test code = <0.2 AI 14845) DECORATING INSTRUCTOR ANTIBODY (test code = 99486) 6.4 AI WEEMS AND DECORATING INSTRUCTOR [id number] 00:00:00 Test Item Value Reference Range Interpretation Comments WEEMS (Sm) ANTIBODY (test code = <0.2 AI 73063) DECORATING INSTRUCTOR ANTIBODY (test code = 56247) 6.4 AI HEMOGLOBIN [id number] 00:00:00 Test Item Value Reference Range Interpretation Comments HEMOGLOBIN A1c (test code = 51757) 7.5 % HEMOGLOBIN [id number] 00:00:00 Test Item Value Reference Range Interpretation Comments HEMOGLOBIN A1c (test code = 38562) 7.5 % HEMOGLOBIN [id number] 00:00:00 Test Item Value Reference Range Interpretation Comments HEMOGLOBIN A1c (test code = 86510) 7.5 % LIPID PANEL [ADDED]2017-07-31 00:00:00 Test [...] = 1.51 RATIO 2238) DNA DS ANTIBODY [id number] 00:00:00 Test Item Value Reference Range Interpretation Comments dsDNA ANTIBODY REFLEX (test code = NEGATIVE 78877) DNA DS ANTIBODY [id number] 00:00:00 Test Item Value Reference Range Interpretation Comments dsDNA ANTIBODY REFLEX (test code = NEGATIVE 86155) DNA DS [id number] 00:00:00 Test Item Value Reference Range Interpretation Comments dsDNA ANTIBODY (test code = 4287) <1.0 IU/ML DNA DS [id number] 00:00:00 Test Item Value Reference Range Interpretation Comments dsDNA ANTIBODY (test code = 4287) <1.0 IU/ML WE[employer] AND DECORATING INSTRUCTOR [id number] 00:00:00 Test Item Value Reference Range Interpretation Comments WEEMS (Sm) ANTIBODY (test code = <0.2 AI 77622) DECORATING INSTRUCTOR ANTIBODY (test code = 96630) 6.4 AI HEMOGLOBIN [id number] 00:00:00 Test Item Value Reference Range Interpretation Comments HEMOGLOBIN A1c (test code = 42606) 7.5 % WEEMS AND DECORATING INSTRUCTOR [id number] 00:00:00 Test Item Value Reference Range Interpretation Comments WEEMS (Sm) ANTIBODY (test code = <0.2 AI 74521) DECORATING INSTRUCTOR ANTIBODY (test code = 98808) 6.4 AI HEMOGLOBIN [id number] 00:00:00 Test Item Value Reference Range Interpretation Comments HEMOGLOBIN A1c (test code = 24309) 7.5 % HEMOGLOBIN [id number] 00:00:00 Test Item Value Reference Range Interpretation Comments HEMOGLOBIN A1c (test code = 30616) 7.5 % DNA DS ANTIBODY [id number] 00:00:00 Test Item Value Reference Range Interpretation Comments dsDNA ANTIBODY REFLEX (test code = NEGATIVE 73526) LIPID PANEL [ADDED]2017-07-31 00:00:00 Test Item Value [...] = 1.51 RATIO 2238) DNA DS ANTIBODY [id number] 00:00:00 Test Item Value Reference Range Interpretation Comments dsDNA ANTIBODY REFLEX (test code = NEGATIVE 69278) DNA DS [id number] 00:00:00 Test Item Value Reference Range Interpretation Comments dsDNA ANTIBODY (test code = 4287) <1.0 IU/ML DNA DS [id number] 00:00:00 Test Item Value Reference Range Interpretation Comments dsDNA ANTIBODY (test code = 4287) <1.0 IU/ML WEEMS AND DECORATING INSTRUCTOR [id number] 00:00:00 Test Item Value Reference Range Interpretation Comments WEEMS (Sm) ANTIBODY (test code = <0.2 AI 36588) DECORATING INSTRUCTOR ANTIBODY (test code = 79293) 6.4 AI HEMOGLOBIN [id number] 00:00:00 Test Item Value Reference Range Interpretation Comments HEMOGLOBIN A1c (test code = 04410) 7.5 % HEMOGLOBIN [id number] 00:00:00 Test Item Value Reference Range Interpretation Comments HEMOGLOBIN A1c (test code = 82608) 7.5 % LIPID PANEL [ADDED]2017-07-31 00:00:00 Test Item Value Reference Range Interpretation Comments CHOLESTEROL (test code = 2210) 179 MG/DL TRIGLYCERIDES (test code = 2232) 193 MG/DL HDL CHOLESTEROL (test code = 2220) 56 MG/DL CALC LDL CHOL (test code = 2237) 84 MG/DL RISK RATIO LDL/HDL (test code = 1.51 RATIO 2238) DNA DS ANTIBODY [id number] 00:00:00 Test Item Value Reference Range Interpretation Comments dsDNA ANTIBODY REFLEX (test code = NEGATIVE 63011) DNA DS [id number] 00:00:00 Test Item Value Reference Range Interpretation Comments dsDNA ANTIBODY (test code = 4287) <1.0 IU/ML HEMOGLOBIN [id number] 00:00:00 Test Item Value Reference Range Interpretation Comments HEMOGLOBIN A1c (test code = 93141) 7.5 % HEMOGLOBIN [id number] 00:00:00 Test Item Value Reference Range Interpretation Comments HEMOGLOBIN A1c (test code = 03790) 7.5 % [employer]ORATING [employer] [id number] 00:00:00 Test Item Value Reference Range Interpretation Comments WEEMS (Sm) ANTIBODY (test code = <0.2 AI 58421) DECORATING INSTRUCTOR ANTIBODY (test code = 00717) 6.4 AI HEMOGLOBIN [id number] 00:00:00 Test Item Value Reference Range Interpretation Comments HEMOGLOBIN A1c (test code = 68042) 7.5 % [employer]ATING [employer] [id number] 00:00:00 Test Item Value Reference Range Interpretation Comments WEEMS (Sm) ANTIBODY (test code = <0.2 AI 27302) DECORATING INSTRUCTOR ANTIBODY (test code = 88013) 6.4 AI DNA DS ANTIBODY [id number] 00:00:00 Test Item Value Reference Range Interpretation Comments dsDNA ANTIBODY REFLEX (test code = NEGATIVE 69370) DNA DS ANTIBODY [id number] 00:00:00 Test Item Value Reference Range Interpretation Comments dsDNA ANTIBODY REFLEX (test code = NEGATIVE 87434) LIPID PANEL [ADDED]2017-07-31 00:00:00 Test Item Value [...] code = 1.51 RATIO 2238) DNA DS [id number] 00:00:00 Test Item Value Reference Range Interpretation Comments dsDNA ANTIBODY (test code = 4287) <1.0 IU/ML DNA DS [id number] 00:00:00 Test Item Value Reference Range Interpretation Comments dsDNA ANTIBODY (test code = 4287) <1.0 IU/ML HEMOGLOBIN [id number] 00:00:00 Test Item Value Reference Range Interpretation Comments HEMOGLOBIN A1c (test code = 73030) 7.5 % WEEMS AND DECORATING INSTRUCTOR [id number] 00:00:00 Test Item Value Reference Range Interpretation Comments WEEMS (Sm) ANTIBODY (test code = <0.2 AI 65811) DECORATING INSTRUCTOR ANTIBODY (test code = 27973) 6.4 AI HEMOGLOBIN [id number] 00:00:00 Test Item Value Reference Range Interpretation Comments HEMOGLOBIN A1c (test code = 84255) 7.5 % HEMOGLOBIN [id number] 00:00:00 Test Item Value Reference Range Interpretation Comments HEMOGLOBIN A1c (test code = 31959) 7.5 % WEEMS AND DECORATING INSTRUCTOR [id number] 00:00:00 Test Item Value Reference Range Interpretation Comments WEEMS (Sm) ANTIBODY (test code = <0.2 AI 09250) DECORATING INSTRUCTOR ANTIBODY (test code = 57575) 6.4 AI DNA DS ANTIBODY [id number] 00:00:00 Test Item Value Reference Range Interpretation Comments dsDNA ANTIBODY REFLEX (test code = NEGATIVE 07586) LIPID PANEL [ADDED]2017-07-31 00:00:00 Test Item Value [...] = 1.51 RATIO 2238) DNA DS ANTIBODY [id number] 00:00:00 Test Item Value Reference Range Interpretation Comments dsDNA ANTIBODY REFLEX (test code = NEGATIVE 84038) DNA DS [id number] 00:00:00 Test Item Value Reference Range Interpretation Comments dsDNA ANTIBODY (test code = 4287) <1.0 IU/ML DNA DS [id number] 00:00:00 Test Item Value Reference Range Interpretation Comments dsDNA ANTIBODY (test code = 4287) <1.0 IU/ML ARMEN TITER AND PATTERN [REFLEX]2017-07-18 00:00:00 Test Item Value Reference Range Interpretation Comments PATTERN (test code = 65289) SS-A ARMEN TITER (test code = 3550) 1:40 TITER METHOD (test code = 42122) (NOTE) ARMEN TITER AND PATTERN [REFLEX]2017-07-18 00:00:00 Test Item Value Reference Range Interpretation Comments PATTERN (test code = 23191) SS-A ARMEN TITER (test code = 3550) 1:40 TITER METHOD (test code = 11913) (NOTE) ARMEN TITER AND PATTERN [REFLEX]2017-07-18 00:00:00 Test Item Value Reference Range Interpretation Comments PATTERN (test code = 82636) SS-A ARMEN TITER (test code = 3550) 1:40 TITER METHOD (test code = 85187) (NOTE) ARMEN TITER AND PATTERN [REFLEX]2017-07-18 00:00:00 Test Item Value Reference Range Interpretation Comments PATTERN (test code = 26335) SS-A ARMEN TITER (test code = 3550) 1:40 TITER METHOD (test code = 43459) (NOTE) ARMEN TITER AND PATTERN [REFLEX]2017-07-18 00:00:00 Test Item Value Reference Range Interpretation Comments PATTERN (test code = 35022) SS-A ARMEN TITER (test code = 3550) 1:40 TITER METHOD (test code = 33487) (NOTE) ARMEN TITER AND PATTERN [REFLEX]2017-07-18 00:00:00 Test Item Value Reference Range Interpretation Comments PATTERN (test code = 37535) SS-A ARMEN TITER (test code = 3550) 1:40 TITER METHOD (test code = 83884) (NOTE) ARMEN TITER AND PATTERN [REFLEX]2017-07-18 00:00:00 Test Item Value Reference Range Interpretation Comments PATTERN (test code = 31117) SS-A ARMEN TITER (test code = 3550) 1:40 TITER METHOD (test code = 92590) (NOTE) ARMEN TITER AND PATTERN [REFLEX]2017-07-18 00:00:00 Test Item Value Reference Range Interpretation Comments PATTERN (test code = 41004) SS-A ARMEN TITER (test code = 3550) 1:40 TITER METHOD (test code = 39915) (NOTE) C-REACTIVE [id number] 00:00:00 Test Item Value Reference Range Interpretation Comments C-REACTIVE PROTEIN (test code = 0.2 MG/DL 3513) C-REACTIVE [id number] 00:00:00 Test Item Value Reference Range Interpretation Comments C-REACTIVE PROTEIN (test code = 0.2 MG/DL 3513) ARMEN (ANTI-NUCLEAR AB) WITH REFLEX [id number] 00:00:00 Test Item Value Reference Range Interpretation Comments ANTI-NUCLEAR ANTIBODIES (test code = POSITIVE 3506) ARMEN (ANTI-NUCLEAR AB) WITH REFLEX [id number] 00:00:00 Test Item Value Reference Range Interpretation Comments ANTI-NUCLEAR ANTIBODIES (test code = POSITIVE 3506) VITAMIN D, 25 [id number] 00:00:00 Test Item Value Reference Range Interpretation Comments VITAMIN D, 25 OH (test code = 4958) 24 NG/ML VITAMIN D, 25 [id number] 00:00:00 Test Item Value Reference Range Interpretation Comments VITAMIN D, 25 OH (test code = 4958) 24 NG/ML RHEUMATOID FACTOR, [id number] 00:00:00 Test Item Value Reference Range Interpretation Comments RHEUMATOID FACTOR, QUANT (test code 11 IU/ML = 3502) RHEUMATOID FACTOR, [id number] 00:00:00 Test Item Value Reference Range Interpretation Comments RHEUMATOID FACTOR, QUANT (test code 11 IU/ML = 3502) RHEUMATOID FACTOR, [id number] 00:00:00 Test Item Value Reference Range Interpretation Comments RHEUMATOID FACTOR, QUANT (test code 11 IU/ML = 3502) SEDIMENTATION [id number] 00:00:00 Test Item Value Reference Range Interpretation Comments SEDIMENTATION RATE (test code = 40 MM/HOUR 1017) SEDIMENTATION [id number] 00:00:00 Test Item Value Reference Range Interpretation Comments SEDIMENTATION RATE (test code = 40 MM/HOUR 1017) C-REACTIVE [id number] 00:00:00 Test Item Value Reference Range Interpretation Comments C-REACTIVE PROTEIN (test code = 0.2 MG/DL 3513) C-REACTIVE [id number] 00:00:00 Test Item Value Reference Range Interpretation Comments C-REACTIVE PROTEIN (test code = 0.2 MG/DL 3513) ARMEN (ANTI-NUCLEAR AB) WITH REFLEX [id number] 00:00:00 Test Item Value Reference Range Interpretation Comments ANTI-NUCLEAR ANTIBODIES (test code = POSITIVE 3506) ARMEN (ANTI-NUCLEAR AB) WITH REFLEX [id number] 00:00:00 Test Item Value Reference Range Interpretation Comments ANTI-NUCLEAR ANTIBODIES (test code = POSITIVE 3506) VITAMIN D, 25 [id number] 00:00:00 Test Item Value Reference Range Interpretation Comments VITAMIN D, 25 OH (test code = 4958) 24 NG/ML VITAMIN D, 25 [id number] 00:00:00 Test Item Value Reference Range Interpretation Comments VITAMIN D, 25 OH (test code = 4958) 24 NG/ML VITAMIN D, 25 [id number] 00:00:00 Test Item Value Reference Range Interpretation Comments VITAMIN D, 25 OH (test code = 4958) 24 NG/ML RHEUMATOID FACTOR, [id number] 00:00:00 Test Item Value Reference Range Interpretation Comments RHEUMATOID FACTOR, QUANT (test code 11 IU/ML = 3502) RHEUMATOID FACTOR, [id number] 00:00:00 Test Item Value Reference Range Interpretation Comments RHEUMATOID FACTOR, QUANT (test code 11 IU/ML = 3502) RHEUMATOID FACTOR, [id number] 00:00:00 Test Item Value Reference Range Interpretation Comments RHEUMATOID FACTOR, QUANT (test code 11 IU/ML = 3502) RHEUMATOID FACTOR, [id number] 00:00:00 Test Item Value Reference Range Interpretation Comments RHEUMATOID FACTOR, QUANT (test code 11 IU/ML = 3502) SEDIMENTATION [id number] 00:00:00 Test Item Value Reference Range Interpretation Comments SEDIMENTATION RATE (test code = 40 MM/HOUR 1017) SEDIMENTATION [id number] 00:00:00 Test Item Value Reference Range Interpretation Comments SEDIMENTATION RATE (test code = 40 MM/HOUR 1017) C-REACTIVE [id number] 00:00:00 Test Item Value Reference Range Interpretation Comments C-REACTIVE PROTEIN (test code = 0.2 MG/DL 3513) C-REACTIVE [id number] 00:00:00 Test Item Value Reference Range Interpretation Comments C-REACTIVE PROTEIN (test code = 0.2 MG/DL 3513) ARMEN (ANTI-NUCLEAR AB) WITH REFLEX [id number] 00:00:00 Test Item Value Reference Range Interpretation Comments ANTI-NUCLEAR ANTIBODIES (test code = POSITIVE 3506) ARMEN (ANTI-NUCLEAR AB) WITH REFLEX [id number] 00:00:00 Test Item Value Reference Range Interpretation Comments ANTI-NUCLEAR ANTIBODIES (test code = POSITIVE 3506) RHEUMATOID FACTOR, [id number] 00:00:00 Test Item Value Reference Range Interpretation Comments RHEUMATOID FACTOR, QUANT (test code 11 IU/ML = 3502) SEDIMENTATION [id number] 00:00:00 Test Item Value Reference Range Interpretation Comments SEDIMENTATION RATE (test code = 40 MM/HOUR 1017) VITAMIN D, 25 [id number] 00:00:00 Test Item Value Reference Range Interpretation Comments VITAMIN D, 25 OH (test code = 4958) 24 NG/ML VITAMIN D, 25 [id number] 00:00:00 Test Item Value Reference Range Interpretation Comments VITAMIN D, 25 OH (test code = 4958) 24 NG/ML RHEUMATOID FACTOR, [id number] 00:00:00 Test Item Value Reference Range Interpretation Comments RHEUMATOID FACTOR, QUANT (test code 11 IU/ML = 3502) C-REACTIVE [id number] 00:00:00 Test Item Value Reference Range Interpretation Comments C-REACTIVE PROTEIN (test code = 0.2 MG/DL 3513) RHEUMATOID FACTOR, [id number] 00:00:00 Test Item Value Reference Range Interpretation Comments RHEUMATOID FACTOR, QUANT (test code 11 IU/ML = 3502) RHEUMATOID FACTOR, [id number] 00:00:00 Test Item Value Reference Range Interpretation Comments RHEUMATOID FACTOR, QUANT (test code 11 IU/ML = 3502) SEDIMENTATION [id number] 00:00:00 Test Item Value Reference Range Interpretation Comments SEDIMENTATION RATE (test code = 40 MM/HOUR 1017) SEDIMENTATION [id number] 00:00:00 Test Item Value Reference Range Interpretation Comments SEDIMENTATION RATE (test code = 40 MM/HOUR 1017) ARMEN (ANTI-NUCLEAR AB) WITH REFLEX [id number] 00:00:00 Test Item Value Reference Range Interpretation Comments ANTI-NUCLEAR ANTIBODIES (test code = POSITIVE 3506) C-REACTIVE [id number] 00:00:00 Test Item Value Reference Range Interpretation Comments C-REACTIVE PROTEIN (test code = 0.2 MG/DL 3513) C-REACTIVE [id number] 00:00:00 Test Item Value Reference Range Interpretation Comments C-REACTIVE PROTEIN (test code = 0.2 MG/DL 3513) ARMEN (ANTI-NUCLEAR AB) WITH REFLEX [id number] 00:00:00 Test Item Value Reference Range Interpretation Comments ANTI-NUCLEAR ANTIBODIES (test code = POSITIVE 3506) ARMEN (ANTI-NUCLEAR AB) WITH REFLEX [id number] 00:00:00 Test Item Value Reference Range Interpretation Comments ANTI-NUCLEAR ANTIBODIES (test code = POSITIVE 3506) VITAMIN D, 25 [id number] 00:00:00 Test Item Value Reference Range Interpretation Comments VITAMIN D, 25 OH (test code = 4958) 24 NG/ML VITAMIN D, 25 [id number] 00:00:00 Test Item Value Reference Range Interpretation Comments VITAMIN D, 25 OH (test code = 4958) 24 NG/ML RHEUMATOID FACTOR, [id number] 00:00:00 Test Item Value Reference Range Interpretation Comments RHEUMATOID FACTOR, QUANT (test code 11 IU/ML = 3502) RHEUMATOID FACTOR, [id number] 00:00:00 Test Item Value Reference Range Interpretation Comments RHEUMATOID FACTOR, QUANT (test code 11 IU/ML = 3502) RHEUMATOID FACTOR, [id number] 00:00:00 Test Item Value Reference Range Interpretation Comments RHEUMATOID FACTOR, QUANT (test code 11 IU/ML = 3502) SEDIMENTATION [id number] 00:00:00 Test Item Value Reference Range Interpretation Comments SEDIMENTATION RATE (test code = 40 MM/HOUR 1017) SEDIMENTATION [id number] 00:00:00 Test Item Value Reference Range Interpretation Comments SEDIMENTATION RATE (test code = 40 MM/HOUR 1017) C-REACTIVE [id number] 00:00:00 Test Item Value Reference Range Interpretation Comments C-REACTIVE PROTEIN (test code = 0.2 MG/DL 3513) C-REACTIVE [id number] 00:00:00 Test Item Value Reference Range Interpretation Comments C-REACTIVE PROTEIN (test code = 0.2 MG/DL 3513) ARMEN (ANTI-NUCLEAR AB) WITH REFLEX [id number] 00:00:00 Test Item Value Reference Range Interpretation Comments ANTI-NUCLEAR ANTIBODIES (test code = POSITIVE 3506) ARMEN (ANTI-NUCLEAR AB) WITH REFLEX [id number] 00:00:00 Test Item Value Reference Range Interpretation Comments ANTI-NUCLEAR ANTIBODIES (test code = POSITIVE 3506) VITAMIN D, 25 [id number] 00:00:00 Test Item Value Reference Range Interpretation Comments VITAMIN D, 25 OH (test code = 4958) 24 NG/ML RHEUMATOID FACTOR, [id number] 00:00:00 Test Item Value Reference Range Interpretation Comments RHEUMATOID FACTOR, QUANT (test code 11 IU/ML = 3502) RHEUMATOID FACTOR, [id number] 00:00:00 Test Item Value Reference Range Interpretation Comments RHEUMATOID FACTOR, QUANT (test code 11 IU/ML = 3502) SEDIMENTATION [id number] 00:00:00 Test Item Value Reference Range Interpretation Comments SEDIMENTATION RATE (test code = 40 MM/HOUR 1017) C-REACTIVE [id number] 00:00:00 Test Item Value Reference Range Interpretation Comments C-REACTIVE PROTEIN (test code = 0.2 MG/DL 3513) ARMEN (ANTI-NUCLEAR AB) WITH REFLEX [id number] 00:00:00 Test Item Value Reference Range Interpretation Comments ANTI-NUCLEAR ANTIBODIES (test code = POSITIVE 3506) VITAMIN D, 25 [id number] 00:00:00 Test Item Value Reference Range Interpretation Comments VITAMIN D, 25 OH (test code = 4958) 24 NG/ML VITAMIN D, 25 [id number] 00:00:00 Test Item Value Reference Range Interpretation Comments VITAMIN D, 25 OH (test code = 4958) 24 NG/ML RHEUMATOID FACTOR, [id number] 00:00:00 Test Item Value Reference Range Interpretation Comments RHEUMATOID FACTOR, QUANT (test code 11 IU/ML = 3502) RHEUMATOID FACTOR, [id number] 00:00:00 Test Item Value Reference Range Interpretation Comments RHEUMATOID FACTOR, QUANT (test code 11 IU/ML = 3502) RHEUMATOID FACTOR, [id number] 00:00:00 Test Item Value Reference Range Interpretation Comments RHEUMATOID FACTOR, QUANT (test code 11 IU/ML = 3502) SEDIMENTATION [id number] 00:00:00 Test Item Value Reference Range Interpretation Comments SEDIMENTATION RATE (test code = 40 MM/HOUR 1017) SEDIMENTATION [id number] 00:00:00 Test Item Value Reference Range Interpretation Comments SEDIMENTATION RATE (test code = 40 MM/HOUR 1017) C-REACTIVE [id number] 00:00:00 Test Item Value Reference Range Interpretation Comments C-REACTIVE PROTEIN (test code = 0.2 MG/DL 3513) C-REACTIVE [id number] 00:00:00 Test Item Value Reference Range Interpretation Comments C-REACTIVE PROTEIN (test code = 0.2 MG/DL 3513) ARMEN (ANTI-NUCLEAR AB) WITH REFLEX [id number] 00:00:00 Test Item Value Reference Range Interpretation Comments ANTI-NUCLEAR ANTIBODIES (test code = POSITIVE 3506) ARMEN (ANTI-NUCLEAR AB) WITH REFLEX [id number] 00:00:00 Test Item Value Reference Range Interpretation Comments ANTI-NUCLEAR ANTIBODIES (test code = POSITIVE 3506) VITAMIN D, 25 [id number] 00:00:00 Test Item Value Reference Range Interpretation Comments VITAMIN D, 25 OH (test code = 4958) 24 NG/ML VITAMIN D, 25 [id number] 00:00:00 Test Item Value Reference Range Interpretation Comments VITAMIN D, 25 OH (test code = 4958) 24 NG/ML RHEUMATOID FACTOR, [id number] 00:00:00 Test Item Value Reference Range Interpretation Comments RHEUMATOID FACTOR, QUANT (test code 11 IU/ML = 3502) RHEUMATOID FACTOR, [id number] 00:00:00 Test Item Value Reference Range Interpretation Comments RHEUMATOID FACTOR, QUANT (test code 11 IU/ML = 3502) RHEUMATOID FACTOR, [id number] 00:00:00 Test Item Value Reference Range Interpretation Comments RHEUMATOID FACTOR, QUANT (test code 11 IU/ML = 3502) SEDIMENTATION [id number] 00:00:00 Test Item Value Reference Range Interpretation Comments SEDIMENTATION RATE (test code = 40 MM/HOUR 1017) SEDIMENTATION [id number] 00:00:00 Test Item Value Reference Range Interpretation Comments SEDIMENTATION RATE (test code = 40 MM/HOUR 1017) LIPID PANEL [ADDED]2017-05-01 00:00:00 Test Item Value [...] MICROALBUMIN, RANDOM (test code = 60.7 MG/DL 84787) CALC MICROALB/CREAT RND (test code 1096 MG/G = 06797) MICROALBUMIN/CREATININE, RANDOM AND RATIO [ADDED]2017-05-01 00:00:00 Test Item Value Reference Range Interpretation Comments CREATININE, URINE, CONC. (test 55.4 MG/DL code = 2072) MICROALBUMIN, RANDOM (test code = 60.7 MG/DL 18517) CALC MICROALB/CREAT RND (test code 1096 MG/G = 68873) HEMOGLOBIN A1c [ADDED]2017-05-01 00:00:00 Test Item Value Reference Range Interpretation Comments HEMOGLOBIN A1c (test code = 85896) 8.1 % HEMOGLOBIN A1c [ADDED]2017-05-01 00:00:00 Test Item Value Reference Range Interpretation Comments HEMOGLOBIN A1c (test code = 23572) 8.1 % HEMOGLOBIN A1c [ADDED]2017-05-01 00:00:00 Test Item Value Reference Range Interpretation Comments HEMOGLOBIN A1c (test code = 32575) 8.1 % CBC W/AUTO DIFF WITH PLATELETS [...] eGFR AMER. (test code 62 ML/MIN/1.73 = 80979) eGFR NON- AMER. (test 53 ML/MIN/1.73 code = 82359) CALC BUN/CREAT (test code = 31 RATIO [...] eGFR AMER. (test code 62 ML/MIN/1.73 = 18848) eGFR NON- AMER. (test 53 ML/MIN/1.73 code = 64978) CALC BUN/CREAT (test code = 31 RATIO [...] MICROALBUMIN, RANDOM (test code = 60.7 MG/DL 45826) CALC MICROALB/CREAT RND (test code 1096 MG/G = 90191) MICROALBUMIN/CREATININE, RANDOM AND RATIO [ADDED]2017-05-01 00:00:00 Test Item Value Reference Range Interpretation Comments CREATININE, URINE, CONC. (test 55.4 MG/DL code = 2072) MICROALBUMIN, RANDOM (test code = 60.7 MG/DL 35536) CALC MICROALB/CREAT RND (test code 1096 MG/G = 10804) HEMOGLOBIN A1c [ADDED]2017-05-01 00:00:00 Test Item Value Reference Range Interpretation Comments HEMOGLOBIN A1c (test code = 58143) 8.1 % HEMOGLOBIN A1c [ADDED]2017-05-01 00:00:00 Test Item Value Reference Range Interpretation Comments HEMOGLOBIN A1c (test code = 42212) 8.1 % HEMOGLOBIN A1c [ADDED]2017-05-01 00:00:00 Test Item Value Reference Range Interpretation Comments HEMOGLOBIN A1c (test code = 26188) 8.1 % HEMOGLOBIN A1c [ADDED]2017-05-01 00:00:00 Test Item Value Reference Range Interpretation Comments HEMOGLOBIN A1c (test code = 27479) 8.1 % CBC W/AUTO DIFF WITH PLATELETS [...] Interpretation Comments HEMOGLOBIN A1c (test code = 15853) 8.1 % CBC W/AUTO DIFF WITH PLATELETS [...] eGFR AMER. (test code 62 ML/MIN/1.73 = 57971) eGFR NON- AMER. (test 53 ML/MIN/1.73 code = 17061) CALC BUN/CREAT (test code = 31 RATIO [...] eGFR AMER. (test code 62 ML/MIN/1.73 = 63184) eGFR NON- AMER. (test 53 ML/MIN/1.73 code = 80870) CALC BUN/CREAT (test code = 31 RATIO [...] MICROALBUMIN, RANDOM (test code = 60.7 MG/DL 29528) CALC MICROALB/CREAT RND (test code 1096 MG/G = 75111) MICROALBUMIN/CREATININE, RANDOM AND RATIO [ADDED]2017-05-01 00:00:00 Test Item Value Reference Range Interpretation Comments CREATININE, URINE, CONC. (test 55.4 MG/DL code = 2072) MICROALBUMIN, RANDOM (test code = 60.7 MG/DL 22954) CALC MICROALB/CREAT RND (test code 1096 MG/G = 25761) COMPREHENSIVE METABOLIC PANEL [ADDED]2017-05-01 00:00:00 Test Item Value Reference Range Interpretation Comments GLUCOSE (test code = 2217) 287 MG/DL BUN (test code = 2208) 33 MG/DL CREATININE (test code = 2214) 1.07 MG/DL eGFR AMER. (test code 62 ML/MIN/1.73 = 76837) eGFR NON- AMER. (test 53 ML/MIN/1.73 code = 34239) CALC BUN/CREAT (test code = 31 RATIO [...] Interpretation Comments HEMOGLOBIN A1c (test code = 13356) 8.1 % HEMOGLOBIN A1c [ADDED]2017-05-01 00:00:00 Test Item Value Reference Range Interpretation Comments HEMOGLOBIN A1c (test code = 86649) 8.1 % HEMOGLOBIN A1c [ADDED]2017-05-01 00:00:00 Test Item Value Reference Range Interpretation Comments HEMOGLOBIN A1c (test code = 28049) 8.1 % CBC W/AUTO DIFF WITH PLATELETS [...] eGFR AMER. (test code 62 ML/MIN/1.73 = 65054) eGFR NON- AMER. (test 53 ML/MIN/1.73 code = 74771) CALC BUN/CREAT (test code = 31 RATIO [...] eGFR AMER. (test code 62 ML/MIN/1.73 = 19700) eGFR NON- AMER. (test 53 ML/MIN/1.73 code = 21917) CALC BUN/CREAT (test code = 31 RATIO [...] MICROALBUMIN, RANDOM (test code = 60.7 MG/DL 83866) CALC MICROALB/CREAT RND (test code 1096 MG/G = 14889) LIPID PANEL [ADDED]2017-05-01 00:00:00 Test Item Value [...] MICROALBUMIN, RANDOM (test code = 60.7 MG/DL 21962) CALC MICROALB/CREAT RND (test code 1096 MG/G = 49996) MICROALBUMIN/CREATININE, RANDOM AND RATIO [ADDED]2017-05-01 00:00:00 Test Item Value Reference Range Interpretation Comments CREATININE, URINE, CONC. (test 55.4 MG/DL code = 2072) MICROALBUMIN, RANDOM (test code = 60.7 MG/DL 03141) CALC MICROALB/CREAT RND (test code 1096 MG/G = 30621) HEMOGLOBIN A1c [ADDED]2017-05-01 00:00:00 Test Item Value Reference Range Interpretation Comments HEMOGLOBIN A1c (test code = 79517) 8.1 % HEMOGLOBIN A1c [ADDED]2017-05-01 00:00:00 Test Item Value Reference Range Interpretation Comments HEMOGLOBIN A1c (test code = 10541) 8.1 % HEMOGLOBIN A1c [ADDED]2017-05-01 00:00:00 Test Item Value Reference Range Interpretation Comments HEMOGLOBIN A1c (test code = 84478) 8.1 % CBC W/AUTO DIFF WITH PLATELETS [...] eGFR AMER. (test code 62 ML/MIN/1.73 = 42134) eGFR NON- AMER. (test 53 ML/MIN/1.73 code = 26960) CALC BUN/CREAT (test code = 31 RATIO [...] eGFR AMER. (test code 62 ML/MIN/1.73 = 93110) eGFR NON- AMER. (test 53 ML/MIN/1.73 code = 42872) CALC BUN/CREAT (test code = 31 RATIO [...] MICROALBUMIN, RANDOM (test code = 60.7 MG/DL 02380) CALC MICROALB/CREAT RND (test code 1096 MG/G = 56487) MICROALBUMIN/CREATININE, RANDOM AND RATIO [ADDED]2017-05-01 00:00:00 Test Item Value Reference Range Interpretation Comments CREATININE, URINE, CONC. (test 55.4 MG/DL code = 2072) MICROALBUMIN, RANDOM (test code = 60.7 MG/DL 65687) CALC MICROALB/CREAT RND (test code 1096 MG/G = 98722) HEMOGLOBIN A1c [ADDED]2017-05-01 00:00:00 Test Item Value Reference Range Interpretation Comments HEMOGLOBIN A1c (test code = 07986) 8.1 % HEMOGLOBIN A1c [ADDED]2017-05-01 00:00:00 Test Item Value Reference Range Interpretation Comments HEMOGLOBIN A1c (test code = 33535) 8.1 % CBC W/AUTO DIFF WITH PLATELETS [...] eGFR AMER. (test code 62 ML/MIN/1.73 = 79478) eGFR NON- AMER. (test 53 ML/MIN/1.73 code = 51477) CALC BUN/CREAT (test code = 31 RATIO [...] 2218) 20 U/L ALT (test code = 221) 22 U/L LIPID PANEL [ADDED]2017-05-01 00:00:00 Test Item Value Reference Range Interpretation Comments CHOLESTEROL (test code = 2210) 163 MG/DL TRIGLYCERIDES (test code = 2232) 118 MG/DL HDL CHOLESTEROL (test code = 2220) 51 MG/DL CALC LDL CHOL (test code = 2237) 88 MG/DL RISK RATIO LDL/HDL (test code = 1.73 RATIO 8) MICROALBUMIN/CREATININE, RANDOM AND RATIO [ADDED]2017-05-01 00:00:00 Test Item Value Reference Range Interpretation Comments CREATININE, URINE, CONC. (test 55.4 MG/DL code = 2071) MICROALBUMIN, RANDOM (test code = 60.7 MG/DL 12807) CALC MICROALB/CREAT RND (test code 1096 MG/G = 45781) HEMOGLOBIN A1c [ADDED]2017-05-01 00:00:00 Test Item Value Reference Range Interpretation Comments HEMOGLOBIN A1c (test code = 13915) 8.1 % HEMOGLOBIN A1c [ADDED]2017-05-01 00:00:00 Test Item Value Reference Range Interpretation Comments HEMOGLOBIN A1c (test code = 81667) 8.1 % HEMOGLOBIN A1c [ADDED]2017-05-01 00:00:00 Test Item Value Reference Range Interpretation Comments HEMOGLOBIN A1c (test code = 93470) 8.1 % CBC W/AUTO DIFF WITH PLATELETS [...] eGFR AMER. (test code 62 ML/MIN/1.73 = 02561) eGFR NON- AMER. (test 53 ML/MIN/1.73 code = 75496) CALC BUN/CREAT (test code = 31 RATIO [...] eGFR AMER. (test code 62 ML/MIN/1.73 = 29459) eGFR NON- AMER. (test 53 ML/MIN/1.73 code = 54864) CALC BUN/CREAT (test code = 31 RATIO [...] MICROALBUMIN, RANDOM (test code = 60.7 MG/DL 52332) CALC MICROALB/CREAT RND (test code 1096 MG/G = 75919) MICROALBUMIN/CREATININE, RANDOM AND RATIO [ADDED]2017-05-01 00:00:00 Test Item Value Reference Range Interpretation Comments CREATININE, URINE, CONC. (test 55.4 MG/DL code = 2072) MICROALBUMIN, RANDOM (test code = 60.7 MG/DL 98508) CALC MICROALB/CREAT RND (test code 1096 MG/G = 74389) HEMOGLOBIN A1c [ADDED]2017-05-01 00:00:00 Test Item Value Reference Range Interpretation Comments HEMOGLOBIN A1c (test code = 25650) 8.1 % HEMOGLOBIN A1c [ADDED]2017-05-01 00:00:00 Test Item Value Reference Range Interpretation Comments HEMOGLOBIN A1c (test code = 61697) 8.1 % HEMOGLOBIN A1c [ADDED]2017-05-01 00:00:00 Test Item Value Reference Range Interpretation Comments HEMOGLOBIN A1c (test code = 37433) 8.1 % CBC W/AUTO DIFF WITH PLATELETS [...] eGFR AMER. (test code 62 ML/MIN/1.73 = 50781) eGFR NON- AMER. (test 53 ML/MIN/1.73 code = 26488) CALC BUN/CREAT (test code = 31 RATIO [...] eGFR AMER. (test code 62 ML/MIN/1.73 = 40957) eGFR NON- AMER. (test 53 ML/MIN/1.73 code = 54031) CALC BUN/CREAT (test code = 31 RATIO [...] code = 2219) 22 U/L COMPREHENSIVE METABOLIC [id number] 00:00:00 Test Item Value Reference Range Interpretation Comments GLUCOSE (test code = 2217) 173 MG/DL BUN (test code = 2208) 22 MG/DL CREATININE (test code = 2214) 1.01 MG/DL eGFR AMER. (test code 66 ML/MIN/1.73 = 20967) eGFR NON- AMER. (test 57 ML/MIN/1.73 code = 31195) CALC BUN/CREAT (test code = 22 RATIO [...] code = 2219) 13 U/L CBC W/AUTO [id number] 00:00:00 Test Item Value Reference Range Interpretation [...] code = 1015) 266 K/UL CBC W/AUTO [id number] 00:00:00 Test Item Value Reference Range Interpretation [...] code = 1015) 266 K/UL CBC W/AUTO [id number] 00:00:00 Test Item Value Reference Range Interpretation [...] (test code = 1015) 266 K/UL HEMOGLOBIN [id number] 00:00:00 Test Item Value Reference Range Interpretation Comments HEMOGLOBIN A1c (test code = 51326) 9.4 % HEMOGLOBIN [id number] 00:00:00 Test Item Value Reference Range Interpretation Comments HEMOGLOBIN A1c (test code = 54613) 9.4 % HEMOGLOBIN [id number] 00:00:00 Test Item Value Reference Range Interpretation Comments HEMOGLOBIN A1c (test code = 85594) 9.4 % URIC [id number] 00:00:00 Test Item Value Reference Range Interpretation Comments URIC ACID (test code = 2233) 4.7 MG/DL URIC [id number] 00:00:00 Test Item Value Reference Range Interpretation Comments URIC ACID (test code = 2233) 4.7 MG/DL VITAMIN D, 25 [id number] 00:00:00 Test Item Value Reference Range Interpretation Comments VITAMIN D, 25 OH (test code = 4958) 16 NG/ML VITAMIN D, 25 [id number] 00:00:00 Test Item Value Reference Range Interpretation Comments VITAMIN D, 25 OH (test code = 4958) 16 NG/ML [id number] 00:00:00 Test Item Value Reference Range Interpretation Comments TSH (test code = 2821) 4.260 UIU/ML [id number] 00:00:00 Test Item Value Reference Range Interpretation Comments TSH (test code = 2821) 4.260 UIU/ML [id number] 00:00:00 Test Item Value Reference Range Interpretation Comments TSH (test code = 2821) 4.260 UIU/ML LIPID [id number] 00:00:00 Test Item Value Reference Range Interpretation Comments CHOLESTEROL (test code = 2210) 152 MG/DL TRIGLYCERIDES (test code = 2232) 149 MG/DL HDL CHOLESTEROL (test code = 2220) 56 MG/DL CALC LDL CHOL (test code = 2237) 66 MG/DL RISK RATIO LDL/HDL (test code = 1.18 RATIO 2238) LIPID [id number] 00:00:00 Test Item Value Reference Range Interpretation Comments CHOLESTEROL (test code = 2210) 152 MG/DL TRIGLYCERIDES (test code = 2232) 149 MG/DL HDL CHOLESTEROL (test code = 2220) 56 MG/DL CALC LDL CHOL (test code = 2237) 66 MG/DL RISK RATIO LDL/HDL (test code = 1.18 RATIO 2238) COMPREHENSIVE METABOLIC [id number] 00:00:00 Test Item Value Reference Range Interpretation Comments GLUCOSE (test code = 2217) 173 MG/DL BUN (test code = 2208) 22 MG/DL CREATININE (test code = 2214) 1.01 MG/DL eGFR AMER. (test code 66 ML/MIN/1.73 = 59019) eGFR NON- AMER. (test 57 ML/MIN/1.73 code = 71230) CALC BUN/CREAT (test code = 22 RATIO [...] code = 2219) 13 U/L COMPREHENSIVE METABOLIC [id number] 00:00:00 Test Item Value Reference Range Interpretation Comments GLUCOSE (test code = 2217) 173 MG/DL BUN (test code = 2208) 22 MG/DL CREATININE (test code = 2214) 1.01 MG/DL eGFR AMER. (test code 66 ML/MIN/1.73 = 84624) eGFR NON- AMER. (test 57 ML/MIN/1.73 code = 08771) CALC BUN/CREAT (test code = 22 RATIO [...] = 0.4 MG/DL 220) ALKALINE PHOSPHATASE (test 89 U/L code = 2204) AST (test code = 2218) 16 U/L ALT (test code = 2219) 13 U/L CBC W/AUTO [id number] 00:00:00 Test Item Value Reference Range Interpretation [...] code = 1015) 266 K/UL CBC W/AUTO [id number] 00:00:00 Test Item Value Reference Range Interpretation [...] code = 1015) 266 K/UL CBC W/AUTO [id number] 00:00:00 Test Item Value Reference Range Interpretation [...] (test code = 1015) 266 K/UL HEMOGLOBIN [id number] 00:00:00 Test Item Value Reference Range Interpretation Comments HEMOGLOBIN A1c (test code = 99617) 9.4 % HEMOGLOBIN [id number] 00:00:00 Test Item Value Reference Range Interpretation Comments HEMOGLOBIN A1c (test code = 64381) 9.4 % HEMOGLOBIN [id number] 00:00:00 Test Item Value Reference Range Interpretation Comments HEMOGLOBIN A1c (test code = 27537) 9.4 % URIC [id number] 00:00:00 Test Item Value Reference Range Interpretation Comments URIC ACID (test code = 2233) 4.7 MG/DL URIC [id number] 00:00:00 Test Item Value Reference Range Interpretation Comments URIC ACID (test code = 2233) 4.7 MG/DL VITAMIN D, 25 [id number] 00:00:00 Test Item Value Reference Range Interpretation Comments VITAMIN D, 25 OH (test code = 4958) 16 NG/ML VITAMIN D, 25 [id number] 00:00:00 Test Item Value Reference Range Interpretation Comments VITAMIN D, 25 OH (test code = 4958) 16 NG/ML [id number] 00:00:00 Test Item Value Reference Range Interpretation Comments TSH (test code = 2821) 4.260 UIU/ML [id number] 00:00:00 Test Item Value Reference Range Interpretation Comments TSH (test code = 2821) 4.260 UIU/ML [id number] 00:00:00 Test Item Value Reference Range Interpretation Comments TSH (test code = 2821) 4.260 UIU/ML [id number] 00:00:00 Test Item Value Reference Range Interpretation Comments TSH (test code = 2821) 4.260 UIU/ML [id number] 00:00:00 Test Item Value Reference Range Interpretation Comments TSH (test code = 2821) 4.260 UIU/ML LIPID [id number] 00:00:00 Test Item Value Reference Range Interpretation Comments CHOLESTEROL (test code = 2210) 152 MG/DL TRIGLYCERIDES (test code = 2232) 149 MG/DL HDL CHOLESTEROL (test code = 2220) 56 MG/DL CALC LDL CHOL (test code = 2237) 66 MG/DL RISK RATIO LDL/HDL (test code = 1.18 RATIO 2238) LIPID [id number] 00:00:00 Test Item Value Reference Range Interpretation Comments CHOLESTEROL (test code = 2210) 152 MG/DL TRIGLYCERIDES (test code = 2232) 149 MG/DL HDL CHOLESTEROL (test code = 2220) 56 MG/DL CALC LDL CHOL (test code = 2237) 66 MG/DL RISK RATIO LDL/HDL (test code = 1.18 RATIO 2238) COMPREHENSIVE METABOLIC [id number] 00:00:00 Test Item Value Reference Range Interpretation Comments GLUCOSE (test code = 2217) 173 MG/DL BUN (test code = 2208) 22 MG/DL CREATININE (test code = 2214) 1.01 MG/DL eGFR AMER. (test code 66 ML/MIN/1.73 = 13914) eGFR NON- AMER. (test 57 ML/MIN/1.73 code = 50305) CALC BUN/CREAT (test code = 22 RATIO [...] (test code = 2219) 13 U/L LIPID [id number] 00:00:00 Test Item Value Reference Range Interpretation Comments CHOLESTEROL (test code = 2210) 152 MG/DL TRIGLYCERIDES (test code = 2232) 149 MG/DL HDL CHOLESTEROL (test code = 2220) 56 MG/DL CALC LDL CHOL (test code = 2237) 66 MG/DL RISK RATIO LDL/HDL (test code = 1.18 RATIO 2238) COMPREHENSIVE METABOLIC [id number] 00:00:00 Test Item Value Reference Range Interpretation Comments GLUCOSE (test code = 2217) 173 MG/DL BUN (test code = 2208) 22 MG/DL CREATININE (test code = 2214) 1.01 MG/DL eGFR AMER. (test code 66 ML/MIN/1.73 = 84582) eGFR NON- AMER. (test 57 ML/MIN/1.73 code = 97020) CALC BUN/CREAT (test code = 22 RATIO [...] code = 2219) 13 U/L CBC W/AUTO [id number] 00:00:00 Test Item Value Reference Range Interpretation [...] code = 1015) 266 K/UL CBC W/AUTO [id number] 00:00:00 Test Item Value Reference Range Interpretation [...] code = 1015) 266 K/UL CBC W/AUTO [id number] 00:00:00 Test Item Value Reference Range Interpretation [...] (test code = 1015) 266 K/UL HEMOGLOBIN [id number] 00:00:00 Test Item Value Reference Range Interpretation Comments HEMOGLOBIN A1c (test code = 12916) 9.4 % HEMOGLOBIN [id number] 00:00:00 Test Item Value Reference Range Interpretation Comments HEMOGLOBIN A1c (test code = 89892) 9.4 % HEMOGLOBIN [id number] 00:00:00 Test Item Value Reference Range Interpretation Comments HEMOGLOBIN A1c (test code = 84807) 9.4 % URIC [id number] 00:00:00 Test Item Value Reference Range Interpretation Comments URIC ACID (test code = 2233) 4.7 MG/DL URIC [id number] 00:00:00 Test Item Value Reference Range Interpretation Comments URIC ACID (test code = 2233) 4.7 MG/DL VITAMIN D, 25 [id number] 00:00:00 Test Item Value Reference Range Interpretation Comments VITAMIN D, 25 OH (test code = 4958) 16 NG/ML VITAMIN D, 25 [id number] 00:00:00 Test Item Value Reference Range Interpretation Comments VITAMIN D, 25 OH (test code = 4958) 16 NG/ML COMPREHENSIVE METABOLIC [id number] 00:00:00 Test Item Value Reference Range Interpretation Comments GLUCOSE (test code = 2217) 173 MG/DL BUN (test code = 2208) 22 MG/DL CREATININE (test code = 2214) 1.01 MG/DL eGFR AMER. (test code 66 ML/MIN/1.73 = 40988) eGFR NON- AMER. (test 57 ML/MIN/1.73 code = 07603) CALC BUN/CREAT (test code = 22 RATIO [...] = 0.4 MG/DL 220) ALKALINE PHOSPHATASE (test 89 U/L code = 2204) AST (test code = 2218) 16 U/L ALT (test code = 2219) 13 U/L [id number] 00:00:00 Test Item Value Reference Range Interpretation Comments TSH (test code = 2821) 4.260 UIU/ML [id number] 00:00:00 Test Item Value Reference Range Interpretation Comments TSH (test code = 2821) 4.260 UIU/ML [id number] 00:00:00 Test Item Value Reference Range Interpretation Comments TSH (test code = 2821) 4.260 UIU/ML CBC W/AUTO [id number] 00:00:00 Test Item Value Reference Range Interpretation [...] code = 1015) 266 K/UL CBC W/AUTO [id number] 00:00:00 Test Item Value Reference Range Interpretation [...] (test code = 1015) 266 K/UL LIPID [id number] 00:00:00 Test Item Value Reference Range Interpretation Comments CHOLESTEROL (test code = 2210) 152 MG/DL TRIGLYCERIDES (test code = 2232) 149 MG/DL HDL CHOLESTEROL (test code = 2220) 56 MG/DL CALC LDL CHOL (test code = 2237) 66 MG/DL RISK RATIO LDL/HDL (test code = 1.18 RATIO 2238) LIPID [id number] 00:00:00 Test Item Value Reference Range Interpretation Comments CHOLESTEROL (test code = 2210) 152 MG/DL TRIGLYCERIDES (test code = 2232) 149 MG/DL HDL CHOLESTEROL (test code = 2220) 56 MG/DL CALC LDL CHOL (test code = 2237) 66 MG/DL RISK RATIO LDL/HDL (test code = 1.18 RATIO 2238) COMPREHENSIVE METABOLIC [id number] 00:00:00 Test Item Value Reference Range Interpretation Comments GLUCOSE (test code = 2217) 173 MG/DL BUN (test code = 2208) 22 MG/DL CREATININE (test code = 2214) 1.01 MG/DL eGFR AMER. (test code 66 ML/MIN/1.73 = 76567) eGFR NON- AMER. (test 57 ML/MIN/1.73 code = 53508) CALC BUN/CREAT (test code = 22 RATIO [...] code = 2219) 13 U/L COMPREHENSIVE METABOLIC [id number] 00:00:00 Test Item Value Reference Range Interpretation Comments GLUCOSE (test code = 2217) 173 MG/DL BUN (test code = 2208) 22 MG/DL CREATININE (test code = 2214) 1.01 MG/DL eGFR AMER. (test code 66 ML/MIN/1.73 = 02161) eGFR NON- AMER. (test 57 ML/MIN/1.73 code = 51170) CALC BUN/CREAT (test code = 22 RATIO [...] code = 2219) 13 U/L CBC W/AUTO [id number] 00:00:00 Test Item Value Reference Range Interpretation [...] code = 1015) 266 K/UL CBC W/AUTO [id number] 00:00:00 Test Item Value Reference Range Interpretation [...] code = 1015) 266 K/UL CBC W/AUTO [id number] 00:00:00 Test Item Value Reference Range Interpretation [...] (test code = 1015) 266 K/UL HEMOGLOBIN [id number] 00:00:00 Test Item Value Reference Range Interpretation Comments HEMOGLOBIN A1c (test code = 49749) 9.4 % HEMOGLOBIN [id number] 00:00:00 Test Item Value Reference Range Interpretation Comments HEMOGLOBIN A1c (test code = 20033) 9.4 % HEMOGLOBIN [id number] 00:00:00 Test Item Value Reference Range Interpretation Comments HEMOGLOBIN A1c (test code = 77976) 9.4 % URIC [id number] 00:00:00 Test Item Value Reference Range Interpretation Comments URIC ACID (test code = 2233) 4.7 MG/DL URIC [id number] 00:00:00 Test Item Value Reference Range Interpretation Comments URIC ACID (test code = 2233) 4.7 MG/DL HEMOGLOBIN [id number] 00:00:00 Test Item Value Reference Range Interpretation Comments HEMOGLOBIN A1c (test code = 58447) 9.4 % VITAMIN D, 25 [id number] 00:00:00 Test Item Value Reference Range Interpretation Comments VITAMIN D, 25 OH (test code = 4958) 16 NG/ML VITAMIN D, 25 [id number] 00:00:00 Test Item Value Reference Range Interpretation Comments VITAMIN D, 25 OH (test code = 4958) 16 NG/ML HEMOGLOBIN [id number] 00:00:00 Test Item Value Reference Range Interpretation Comments HEMOGLOBIN A1c (test code = 04107) 9.4 % URIC [id number] 00:00:00 Test Item Value Reference Range Interpretation Comments URIC ACID (test code = 2233) 4.7 MG/DL VITAMIN D, 25 [id number] 00:00:00 Test Item Value Reference Range Interpretation Comments VITAMIN D, 25 OH (test code = 4958) 16 NG/ML [id number] 00:00:00 Test Item Value Reference Range Interpretation Comments TSH (test code = 2821) 4.260 UIU/ML [id number] 00:00:00 Test Item Value Reference Range Interpretation Comments TSH (test code = 2821) 4.260 UIU/ML [id number] 00:00:00 Test Item Value Reference Range Interpretation Comments TSH (test code = 2821) 4.260 UIU/ML LIPID [id number] 00:00:00 Test Item Value Reference Range Interpretation Comments CHOLESTEROL (test code = 2210) 152 MG/DL TRIGLYCERIDES (test code = 2232) 149 MG/DL HDL CHOLESTEROL (test code = 2220) 56 MG/DL CALC LDL CHOL (test code = 2237) 66 MG/DL RISK RATIO LDL/HDL (test code = 1.18 RATIO 2238) LIPID [id number] 00:00:00 Test Item Value Reference Range Interpretation Comments CHOLESTEROL (test code = 2210) 152 MG/DL TRIGLYCERIDES (test code = 2232) 149 MG/DL HDL CHOLESTEROL (test code = 2220) 56 MG/DL CALC LDL CHOL (test code = 2237) 66 MG/DL RISK RATIO LDL/HDL (test code = 1.18 RATIO 2238) COMPREHENSIVE METABOLIC [id number] 00:00:00 Test Item Value Reference Range Interpretation Comments GLUCOSE (test code = 2217) 173 MG/DL BUN (test code = 2208) 22 MG/DL CREATININE (test code = 2214) 1.01 MG/DL eGFR AMER. (test code 66 ML/MIN/1.73 = 17868) eGFR NON- AMER. (test 57 ML/MIN/1.73 code = 19229) CALC BUN/CREAT (test code = 22 RATIO [...] code = 2219) 13 U/L COMPREHENSIVE METABOLIC [id number] 00:00:00 Test Item Value Reference Range Interpretation Comments GLUCOSE (test code = 2217) 173 MG/DL BUN (test code = 2208) 22 MG/DL CREATININE (test code = 2214) 1.01 MG/DL eGFR AMER. (test code 66 ML/MIN/1.73 = 47188) eGFR NON- AMER. (test 57 ML/MIN/1.73 code = 35563) CALC BUN/CREAT (test code = 22 RATIO [...] code = 2219) 13 U/L CBC W/AUTO [id number] 00:00:00 Test Item Value Reference Range Interpretation [...] code = 1015) 266 K/UL CBC W/AUTO [id number] 00:00:00 Test Item Value Reference Range Interpretation [...] code = 1015) 266 K/UL CBC W/AUTO [id number] 00:00:00 Test Item Value Reference Range Interpretation [...] (test code = 1015) 266 K/UL HEMOGLOBIN [id number] 00:00:00 Test Item Value Reference Range Interpretation Comments HEMOGLOBIN A1c (test code = 26326) 9.4 % HEMOGLOBIN [id number] 00:00:00 Test Item Value Reference Range Interpretation Comments HEMOGLOBIN A1c (test code = 84065) 9.4 % HEMOGLOBIN [id number] 00:00:00 Test Item Value Reference Range Interpretation Comments HEMOGLOBIN A1c (test code = 80977) 9.4 % URIC [id number] 00:00:00 Test Item Value Reference Range Interpretation Comments URIC ACID (test code = 2233) 4.7 MG/DL URIC [id number] 00:00:00 Test Item Value Reference Range Interpretation Comments URIC ACID (test code = 2233) 4.7 MG/DL VITAMIN D, 25 [id number] 00:00:00 Test Item Value Reference Range Interpretation Comments VITAMIN D, 25 OH (test code = 4958) 16 NG/ML VITAMIN D, 25 [id number] 00:00:00 Test Item Value Reference Range Interpretation Comments VITAMIN D, 25 OH (test code = 4958) 16 NG/ML [id number] 00:00:00 Test Item Value Reference Range Interpretation Comments TSH (test code = 2821) 4.260 UIU/ML [id number] 00:00:00 Test Item Value Reference Range Interpretation Comments TSH (test code = 2821) 4.260 UIU/ML LIPID [id number] 00:00:00 Test Item Value Reference Range Interpretation Comments CHOLESTEROL (test code = 2210) 152 MG/DL TRIGLYCERIDES (test code = 2232) 149 MG/DL HDL CHOLESTEROL (test code = 2220) 56 MG/DL CALC LDL CHOL (test code = 2237) 66 MG/DL RISK RATIO LDL/HDL (test code = 1.18 RATIO 2238) COMPREHENSIVE METABOLIC [id number] 00:00:00 Test Item Value Reference Range Interpretation Comments GLUCOSE (test code = 2217) 173 MG/DL BUN (test code = 2208) 22 MG/DL CREATININE (test code = 2214) 1.01 MG/DL eGFR AMER. (test code 66 ML/MIN/1.73 = 65425) eGFR NON- AMER. (test 57 ML/MIN/1.73 code = 03823) CALC BUN/CREAT (test code = 22 RATIO [...] code = 2219) 13 U/L CBC W/AUTO [id number] 00:00:00 Test Item Value Reference Range Interpretation [...] code = 1015) 266 K/UL CBC W/AUTO [id number] 00:00:00 Test Item Value Reference Range Interpretation [...] (test code = 1015) 266 K/UL HEMOGLOBIN [id number] 00:00:00 Test Item Value Reference Range Interpretation Comments HEMOGLOBIN A1c (test code = 92261) 9.4 % HEMOGLOBIN [id number] 00:00:00 Test Item Value Reference Range Interpretation Comments HEMOGLOBIN A1c (test code = 06550) 9.4 % URIC [id number] 00:00:00 Test Item Value Reference Range Interpretation Comments URIC ACID (test code = 2233) 4.7 MG/DL VITAMIN D, 25 [id number] 00:00:00 Test Item Value Reference Range Interpretation Comments VITAMIN D, 25 OH (test code = 4958) 16 NG/ML [id number] 00:00:00 Test Item Value Reference Range Interpretation Comments TSH (test code = 2821) 4.260 UIU/ML [id number] 00:00:00 Test Item Value Reference Range Interpretation Comments TSH (test code = 2821) 4.260 UIU/ML [id number] 00:00:00 Test Item Value Reference Range Interpretation Comments TSH (test code = 2821) 4.260 UIU/ML LIPID [id number] 00:00:00 Test Item Value Reference Range Interpretation Comments CHOLESTEROL (test code = 2210) 152 MG/DL TRIGLYCERIDES (test code = 2232) 149 MG/DL HDL CHOLESTEROL (test code = 2220) 56 MG/DL CALC LDL CHOL (test code = 2237) 66 MG/DL RISK RATIO LDL/HDL (test code = 1.18 RATIO 2238) LIPID [id number] 00:00:00 Test Item Value Reference Range Interpretation Comments CHOLESTEROL (test code = 2210) 152 MG/DL TRIGLYCERIDES (test code = 2232) 149 MG/DL HDL CHOLESTEROL (test code = 2220) 56 MG/DL CALC LDL CHOL (test code = 2237) 66 MG/DL RISK RATIO LDL/HDL (test code = 1.18 RATIO 2238) COMPREHENSIVE METABOLIC [id number] 00:00:00 Test Item Value Reference Range Interpretation Comments GLUCOSE (test code = 2217) 173 MG/DL BUN (test code = 2208) 22 MG/DL CREATININE (test code = 2214) 1.01 MG/DL eGFR AMER. (test code 66 ML/MIN/1.73 = 66439) eGFR NON- AMER. (test 57 ML/MIN/1.73 code = 63578) CALC BUN/CREAT (test code = 22 RATIO [...] code = 2219) 13 U/L COMPREHENSIVE METABOLIC [id number] 00:00:00 Test Item Value Reference Range Interpretation Comments GLUCOSE (test code = 2217) 173 MG/DL BUN (test code = 2208) 22 MG/DL CREATININE (test code = 2214) 1.01 MG/DL eGFR AMER. (test code 66 ML/MIN/1.73 = 08357) eGFR NON- AMER. (test 57 ML/MIN/1.73 code = 36407) CALC BUN/CREAT (test code = 22 RATIO [...] code = 2219) 13 U/L CBC W/AUTO [id number] 00:00:00 Test Item Value Reference Range Interpretation [...] code = 1015) 266 K/UL CBC W/AUTO [id number] 00:00:00 Test Item Value Reference Range Interpretation [...] code = 1015) 266 K/UL CBC W/AUTO [id number] 00:00:00 Test Item Value Reference Range Interpretation [...] (test code = 1015) 266 K/UL HEMOGLOBIN [id number] 00:00:00 Test Item Value Reference Range Interpretation Comments HEMOGLOBIN A1c (test code = 11241) 9.4 % HEMOGLOBIN [id number] 00:00:00 Test Item Value Reference Range Interpretation Comments HEMOGLOBIN A1c (test code = 08978) 9.4 % HEMOGLOBIN [id number] 00:00:00 Test Item Value Reference Range Interpretation Comments HEMOGLOBIN A1c (test code = 01840) 9.4 % URIC [id number] 00:00:00 Test Item Value Reference Range Interpretation Comments URIC ACID (test code = 2233) 4.7 MG/DL URIC [id number] 00:00:00 Test Item Value Reference Range Interpretation Comments URIC ACID (test code = 2233) 4.7 MG/DL VITAMIN D, 25 [id number] 00:00:00 Test Item Value Reference Range Interpretation Comments VITAMIN D, 25 OH (test code = 4958) 16 NG/ML VITAMIN D, 25 [id number] 00:00:00 Test Item Value Reference Range Interpretation Comments VITAMIN D, 25 OH (test code = 4958) 16 NG/ML [id number] 00:00:00 Test Item Value Reference Range Interpretation Comments TSH (test code = 2821) 4.260 UIU/ML [id number] 00:00:00 Test Item Value Reference Range Interpretation Comments TSH (test code = 2821) 4.260 UIU/ML [id number] 00:00:00 Test Item Value Reference Range Interpretation Comments TSH (test code = 2821) 4.260 UIU/ML LIPID [id number] 00:00:00 Test Item Value Reference Range Interpretation Comments CHOLESTEROL (test code = 2210) 152 MG/DL TRIGLYCERIDES (test code = 2232) 149 MG/DL HDL CHOLESTEROL (test code = 2220) 56 MG/DL CALC LDL CHOL (test code = 2237) 66 MG/DL RISK RATIO LDL/HDL (test code = 1.18 RATIO 2238) LIPID [id number] 00:00:00 Test Item Value Reference Range Interpretation Comments CHOLESTEROL (test code = 2210) 152 MG/DL TRIGLYCERIDES (test code = 2232) 149 MG/DL HDL CHOLESTEROL (test code = 2220) 56 MG/DL CALC LDL CHOL (test code = 2237) 66 MG/DL RISK RATIO LDL/HDL (test code = 1.18 RATIO 2238) COMPREHENSIVE METABOLIC [id number] 00:00:00 Test Item Value Reference Range Interpretation Comments GLUCOSE (test code = 2217) 173 MG/DL BUN (test code = 2208) 22 MG/DL CREATININE (test code = 2214) 1.01 MG/DL eGFR AMER. (test code 66 ML/MIN/1.73 = 49037) eGFR NON- AMER. (test 57 ML/MIN/1.73 code = 67161) CALC BUN/CREAT (test code = 22 RATIO 2235) SODIUM (test code = 2231) 140 MEQ/L POTASSIUM (test code = 2228) 4.9 MEQ/L CHLORIDE (test code = 2215) 103 MEQ/L CARBON DIOXIDE (test code = 23 MEQ/L 2205) CALCIUM (test code = 2209) 9.3 MG/DL PROTEIN, TOTAL (test code = 7.0 G/DL 2228) ALBUMIN (test code = 220) 3.9 G/DL CALC GLOBULIN (test code = 3.1 G/DL 2239) CALC A/G RATIO (test code = 1.3 RATIO 2234) BILIRUBIN, TOTAL (test code = 0.4 MG/DL 2207) ALKALINE PHOSPHATASE (test 89 U/L code = 2204) AST (test code = 2218) 16 U/L ALT (test code = 2219) 13 U/L HEMOGLOBIN [id number] 00:00:00 Test Item Value Reference Range Interpretation Comments HEMOGLOBIN A1c (test code = 35402) 6.5 % HEMOGLOBIN [id number] 00:00:00 Test Item Value Reference Range Interpretation Comments HEMOGLOBIN A1c (test code = 33140) 6.5 % HEMOGLOBIN [id number] 00:00:00 Test Item Value Reference Range Interpretation Comments HEMOGLOBIN A1c (test code = 54266) 6.5 % THYROID II PROFILE (T3U, T4, [...] code = 2821) 3.1 UIU/ML COMPREHENSIVE METABOLIC [id number] 00:00:00 Test Item Value Reference Range Interpretation Comments GLUCOSE (test code = 2217) 74 MG/DL BUN (test code = 2208) 34 MG/DL CREATININE (test code = 2214) 1.11 MG/DL eGFR AMER. (test code 60 ML/MIN/1.73 = 90339) eGFR NON- AMER. (test 51 ML/MIN/1.73 code = 63301) CALC BUN/CREAT (test code = 31 RATIO [...] code = 2219) 13 U/L COMPREHENSIVE METABOLIC [id number] 00:00:00 Test Item Value Reference Range Interpretation Comments GLUCOSE (test code = 2217) 74 MG/DL BUN (test code = 2208) 34 MG/DL CREATININE (test code = 2214) 1.11 MG/DL eGFR AMER. (test code 60 ML/MIN/1.73 = 36930) eGFR NON- AMER. (test 51 ML/MIN/1.73 code = 80971) CALC BUN/CREAT (test code = 31 RATIO [...] (test code = 2219) 13 U/L LIPID [id number] 00:00:00 Test Item Value Reference Range Interpretation Comments CHOLESTEROL (test code = 2210) 220 MG/DL TRIGLYCERIDES (test code = 2232) 136 MG/DL HDL CHOLESTEROL (test code = 2220) 57 MG/DL CALC LDL CHOL (test code = 2237) 136 MG/DL RISK RATIO LDL/HDL (test code = 2.38 RATIO 2238) LIPID [id number] 00:00:00 Test Item Value Reference Range Interpretation Comments CHOLESTEROL (test code = 2210) 220 MG/DL TRIGLYCERIDES (test code = 2232) 136 MG/DL HDL CHOLESTEROL (test code = 2220) 57 MG/DL CALC LDL CHOL (test code = 2237) 136 MG/DL RISK RATIO LDL/HDL (test code = 2.38 RATIO 2238) CBC W/AUTO [id number] 00:00:00 Test Item Value Reference Range Interpretation [...] code = 1015) 294 K/UL CBC W/AUTO [id number] 00:00:00 Test Item Value Reference Range Interpretation [...] code = 1015) 294 K/UL CBC W/AUTO [id number] 00:00:00 Test Item Value Reference Range Interpretation [...] (test code = 1015) 294 K/UL HEMOGLOBIN [id number] 00:00:00 Test Item Value Reference Range Interpretation Comments HEMOGLOBIN A1c (test code = 78897) 6.5 % HEMOGLOBIN [id number] 00:00:00 Test Item Value Reference Range Interpretation Comments HEMOGLOBIN A1c (test code = 08849) 6.5 % HEMOGLOBIN [id number] 00:00:00 Test Item Value Reference Range Interpretation Comments HEMOGLOBIN A1c (test code = 12327) 6.5 % THYROID II PROFILE (T3U, T4, [...] code = 2821) 3.1 UIU/ML COMPREHENSIVE METABOLIC [id number] 00:00:00 Test Item Value Reference Range Interpretation Comments GLUCOSE (test code = 2217) 74 MG/DL BUN (test code = 2208) 34 MG/DL CREATININE (test code = 2214) 1.11 MG/DL eGFR AMER. (test code 60 ML/MIN/1.73 = 21622) eGFR NON- AMER. (test 51 ML/MIN/1.73 code = 78586) CALC BUN/CREAT (test code = 31 RATIO [...] code = 2219) 13 U/L COMPREHENSIVE METABOLIC [id number] 00:00:00 Test Item Value Reference Range Interpretation Comments GLUCOSE (test code = 2217) 74 MG/DL BUN (test code = 2208) 34 MG/DL CREATININE (test code = 2214) 1.11 MG/DL eGFR AMER. (test code 60 ML/MIN/1.73 = 34281) eGFR NON- AMER. (test 51 ML/MIN/1.73 code = 86884) CALC BUN/CREAT (test code = 31 RATIO [...] code = 2219) 13 U/L COMPREHENSIVE METABOLIC [id number] 00:00:00 Test Item Value Reference Range Interpretation Comments GLUCOSE (test code = 2217) 74 MG/DL BUN (test code = 2208) 34 MG/DL CREATININE (test code = 2214) 1.11 MG/DL eGFR AMER. (test code 60 ML/MIN/1.73 = 88662) eGFR NON- AMER. (test 51 ML/MIN/1.73 code = 81189) CALC BUN/CREAT (test code = 31 RATIO [...] (test code = 2219) 13 U/L LIPID [id number] 00:00:00 Test Item Value Reference Range Interpretation Comments CHOLESTEROL (test code = 2210) 220 MG/DL TRIGLYCERIDES (test code = 2232) 136 MG/DL HDL CHOLESTEROL (test code = 2220) 57 MG/DL CALC LDL CHOL (test code = 2237) 136 MG/DL RISK RATIO LDL/HDL (test code = 2.38 RATIO 2238) LIPID [id number] 00:00:00 Test Item Value Reference Range Interpretation Comments CHOLESTEROL (test code = 2210) 220 MG/DL TRIGLYCERIDES (test code = 2232) 136 MG/DL HDL CHOLESTEROL (test code = 2220) 57 MG/DL CALC LDL CHOL (test code = 2237) 136 MG/DL RISK RATIO LDL/HDL (test code = 2.38 RATIO 2238) CBC W/AUTO [id number] 00:00:00 Test Item Value Reference Range Interpretation [...] code = 1015) 294 K/UL CBC W/AUTO [id number] 00:00:00 Test Item Value Reference Range Interpretation [...] code = 1015) 294 K/UL CBC W/AUTO [id number] 00:00:00 Test Item Value Reference Range Interpretation [...] (test code = 1015) 294 K/UL HEMOGLOBIN [id number] 00:00:00 Test Item Value Reference Range Interpretation Comments HEMOGLOBIN A1c (test code = 70393) 6.5 % HEMOGLOBIN [id number] 00:00:00 Test Item Value Reference Range Interpretation Comments HEMOGLOBIN A1c (test code = 33531) 6.5 % HEMOGLOBIN [id number] 00:00:00 Test Item Value Reference Range Interpretation Comments HEMOGLOBIN A1c (test code = 74869) 6.5 % THYROID II PROFILE (T3U, T4, [...] (test code = 2821) 3.1 UIU/ML LIPID [id number] 00:00:00 Test Item Value Reference Range Interpretation Comments CHOLESTEROL (test code = 2210) 220 MG/DL TRIGLYCERIDES (test code = 2232) 136 MG/DL HDL CHOLESTEROL (test code = 2220) 57 MG/DL CALC LDL CHOL (test code = 2237) 136 MG/DL RISK RATIO LDL/HDL (test code = 2.38 RATIO 2238) CBC W/AUTO [id number] 00:00:00 Test Item Value Reference Range Interpretation [...] code = 1015) 294 K/UL CBC W/AUTO [id number] 00:00:00 Test Item Value Reference Range Interpretation [...] (test code = 1015) 294 K/UL HEMOGLOBIN [id number] 00:00:00 Test Item Value Reference Range Interpretation Comments HEMOGLOBIN A1c (test code = 69542) 6.5 % COMPREHENSIVE METABOLIC [id number] 00:00:00 Test Item Value Reference Range Interpretation Comments GLUCOSE (test code = 2217) 74 MG/DL BUN (test code = 2208) 34 MG/DL CREATININE (test code = 2214) 1.11 MG/DL eGFR AMER. (test code 60 ML/MIN/1.73 = 19655) eGFR NON- AMER. (test 51 ML/MIN/1.73 code = 42669) CALC BUN/CREAT (test code = 31 RATIO [...] ALKALINE PHOSPHATASE (test 98 U/L code = 2203) AST (test code = 221) 18 U/L ALT (test code = 2219) 13 U/L HEMOGLOBIN [id number] 00:00:00 Test Item Value Reference Range Interpretation Comments HEMOGLOBIN A1c (test code = 41082) 6.5 % COMPREHENSIVE METABOLIC [id number] 00:00:00 Test Item Value Reference Range Interpretation Comments GLUCOSE (test code = 2217) 74 MG/DL BUN (test code = 2208) 34 MG/DL CREATININE (test code = 2214) 1.11 MG/DL eGFR AMER. (test code 60 ML/MIN/1.73 = 57117) eGFR NON- AMER. (test 51 ML/MIN/1.73 code = 00666) CALC BUN/CREAT (test code = 31 RATIO [...] (test code = 2219) 13 U/L LIPID [id number] 00:00:00 Test Item Value Reference Range Interpretation Comments CHOLESTEROL (test code = 2210) 220 MG/DL TRIGLYCERIDES (test code = 2232) 136 MG/DL HDL CHOLESTEROL (test code = 2220) 57 MG/DL CALC LDL CHOL (test code = 2237) 136 MG/DL RISK RATIO LDL/HDL (test code = 2.38 RATIO 2238) LIPID [id number] 00:00:00 Test Item Value Reference Range Interpretation Comments CHOLESTEROL (test code = 2210) 220 MG/DL TRIGLYCERIDES (test code = 2232) 136 MG/DL HDL CHOLESTEROL (test code = 2220) 57 MG/DL CALC LDL CHOL (test code = 2237) 136 MG/DL RISK RATIO LDL/HDL (test code = 2.38 RATIO 2238) CBC W/AUTO [id number] 00:00:00 Test Item Value Reference Range Interpretation [...] code = 1015) 294 K/UL CBC W/AUTO [id number] 00:00:00 Test Item Value Reference Range Interpretation [...] code = 1015) 294 K/UL CBC W/AUTO [id number] 00:00:00 Test Item Value Reference Range Interpretation [...] (test code = 2821) 3.1 UIU/ML HEMOGLOBIN [id number] 00:00:00 Test Item Value Reference Range Interpretation Comments HEMOGLOBIN A1c (test code = 36251) 6.5 % HEMOGLOBIN [id number] 00:00:00 Test Item Value Reference Range Interpretation Comments HEMOGLOBIN A1c (test code = 50201) 6.5 % HEMOGLOBIN [id number] 00:00:00 Test Item Value Reference Range Interpretation Comments HEMOGLOBIN A1c (test code = 72182) 6.5 % THYROID II PROFILE (T3U, T4, [...] code = 2821) 3.1 UIU/ML COMPREHENSIVE METABOLIC [id number] 00:00:00 Test Item Value Reference Range Interpretation Comments GLUCOSE (test code = 2217) 74 MG/DL BUN (test code = 2208) 34 MG/DL CREATININE (test code = 2214) 1.11 MG/DL eGFR AMER. (test code 60 ML/MIN/1.73 = 46034) eGFR NON- AMER. (test 51 ML/MIN/1.73 code = 33767) CALC BUN/CREAT (test code = 31 RATIO [...] code = 2219) 13 U/L COMPREHENSIVE METABOLIC [id number] 00:00:00 Test Item Value Reference Range Interpretation Comments GLUCOSE (test code = 2217) 74 MG/DL BUN (test code = 2208) 34 MG/DL CREATININE (test code = 2214) 1.11 MG/DL eGFR AMER. (test code 60 ML/MIN/1.73 = 94153) eGFR NON- AMER. (test 51 ML/MIN/1.73 code = 64667) CALC BUN/CREAT (test code = 31 RATIO [...] (test code = 2219) 13 U/L LIPID [id number] 00:00:00 Test Item Value Reference Range Interpretation Comments CHOLESTEROL (test code = 2210) 220 MG/DL TRIGLYCERIDES (test code = 2232) 136 MG/DL HDL CHOLESTEROL (test code = 2220) 57 MG/DL CALC LDL CHOL (test code = 2237) 136 MG/DL RISK RATIO LDL/HDL (test code = 2.38 RATIO 2238) LIPID [id number] 00:00:00 Test Item Value Reference Range Interpretation Comments CHOLESTEROL (test code = 2210) 220 MG/DL TRIGLYCERIDES (test code = 2232) 136 MG/DL HDL CHOLESTEROL (test code = 2220) 57 MG/DL CALC LDL CHOL (test code = 2237) 136 MG/DL RISK RATIO LDL/HDL (test code = 2.38 RATIO 2238) CBC W/AUTO [id number] 00:00:00 Test Item Value Reference Range Interpretation [...] code = 1015) 294 K/UL CBC W/AUTO [id number] 00:00:00 Test Item Value Reference Range Interpretation [...] code = 1015) 294 K/UL CBC W/AUTO [id number] 00:00:00 Test Item Value Reference Range Interpretation [...] (test code = 1015) 294 K/UL HEMOGLOBIN [id number] 00:00:00 Test Item Value Reference Range Interpretation Comments HEMOGLOBIN A1c (test code = 29187) 6.5 % HEMOGLOBIN [id number] 00:00:00 Test Item Value Reference Range Interpretation Comments HEMOGLOBIN A1c (test code = 22224) 6.5 % HEMOGLOBIN [id number] 00:00:00 Test Item Value Reference Range Interpretation Comments HEMOGLOBIN A1c (test code = 48661) 6.5 % THYROID II PROFILE (T3U, T4, [...] code = 2821) 3.1 UIU/ML COMPREHENSIVE METABOLIC [id number] 00:00:00 Test Item Value Reference Range Interpretation Comments GLUCOSE (test code = 2217) 74 MG/DL BUN (test code = 2208) 34 MG/DL CREATININE (test code = 2214) 1.11 MG/DL eGFR AMER. (test code 60 ML/MIN/1.73 = 77374) eGFR NON- AMER. (test 51 ML/MIN/1.73 code = 36094) CALC BUN/CREAT (test code = 31 RATIO [...] (test code = 2219) 13 U/L LIPID [id number] 00:00:00 Test Item Value Reference Range Interpretation Comments CHOLESTEROL (test code = 2210) 220 MG/DL TRIGLYCERIDES (test code = 2232) 136 MG/DL HDL CHOLESTEROL (test code = 2220) 57 MG/DL CALC LDL CHOL (test code = 2237) 136 MG/DL RISK RATIO LDL/HDL (test code = 2.38 RATIO 2238) CBC W/AUTO [id number] 00:00:00 Test Item Value Reference Range Interpretation [...] code = 1015) 294 K/UL CBC W/AUTO [id number] 00:00:00 Test Item Value Reference Range Interpretation [...] (test code = 1015) 294 K/UL HEMOGLOBIN [id number] 00:00:00 Test Item Value Reference Range Interpretation Comments HEMOGLOBIN A1c (test code = 39456) 6.5 % HEMOGLOBIN [id number] 00:00:00 Test Item Value Reference Range Interpretation Comments HEMOGLOBIN A1c (test code = 81657) 6.5 % THYROID II PROFILE (T3U, T4, T7, [id number] 00:00:00 Test Item Value Reference Range Interpretation Comments T3 UPTAKE (test code = 2817) 30.8 % T4 (THYROXINE) (test code = 2819) 5.3 UG/DL CALCULATED T7 (FTI) (test code = 1.63 2820) TSH (test code = 2821) 3.1 UIU/ML COMPREHENSIVE METABOLIC [id number] 00:00:00 Test Item Value Reference Range Interpretation Comments GLUCOSE (test code = 2217) 74 MG/DL BUN (test code = 2208) 34 MG/DL CREATININE (test code = 2214) 1.11 MG/DL eGFR AMER. (test code 60 ML/MIN/1.73 = 02985) eGFR NON- AMER. (test 51 ML/MIN/1.73 code = 19584) CALC BUN/CREAT (test code = 31 RATIO [...] code = 2219) 13 U/L COMPREHENSIVE METABOLIC [id number] 00:00:00 Test Item Value Reference Range Interpretation Comments GLUCOSE (test code = 2217) 74 MG/DL BUN (test code = 2208) 34 MG/DL CREATININE (test code = 2214) 1.11 MG/DL eGFR AMER. (test code 60 ML/MIN/1.73 = 51147) eGFR NON- AMER. (test 51 ML/MIN/1.73 code = 82253) CALC BUN/CREAT (test code = 31 RATIO [...] (test code = 2219) 13 U/L LIPID [id number] 00:00:00 Test Item Value Reference Range Interpretation Comments CHOLESTEROL (test code = 2210) 220 MG/DL TRIGLYCERIDES (test code = 2232) 136 MG/DL HDL CHOLESTEROL (test code = 2220) 57 MG/DL CALC LDL CHOL (test code = 2237) 136 MG/DL RISK RATIO LDL/HDL (test code = 2.38 RATIO 2238) LIPID [id number] 00:00:00 Test Item Value Reference Range Interpretation Comments CHOLESTEROL (test code = 2210) 220 MG/DL TRIGLYCERIDES (test code = 2232) 136 MG/DL HDL CHOLESTEROL (test code = 2220) 57 MG/DL CALC LDL CHOL (test code = 2237) 136 MG/DL RISK RATIO LDL/HDL (test code = 2.38 RATIO 2238) CBC W/AUTO [id number] 00:00:00 Test Item Value Reference Range Interpretation [...] code = 1015) 294 K/UL CBC W/AUTO [id number] 00:00:00 Test Item Value Reference Range Interpretation [...] code = 1015) 294 K/UL CBC W/AUTO [id number] 00:00:00 Test Item Value Reference Range Interpretation [...] (test code = 1015) 294 K/UL HEMOGLOBIN [id number] 00:00:00 Test Item Value Reference Range Interpretation Comments HEMOGLOBIN A1c (test code = 50810) 6.5 % HEMOGLOBIN [id number] 00:00:00 Test Item Value Reference Range Interpretation Comments HEMOGLOBIN A1c (test code = 97493) 6.5 % HEMOGLOBIN [id number] 00:00:00 Test Item Value Reference Range Interpretation Comments HEMOGLOBIN A1c (test code = 82174) 6.5 % THYROID II PROFILE (T3U, T4, [...] code = 2821) 3.1 UIU/ML COMPREHENSIVE METABOLIC [id number] 00:00:00 Test Item Value Reference Range Interpretation Comments GLUCOSE (test code = 2217) 74 MG/DL BUN (test code = 2208) 34 MG/DL CREATININE (test code = 2214) 1.11 MG/DL eGFR AMER. (test code 60 ML/MIN/1.73 = 89964) eGFR NON- AMER. (test 51 ML/MIN/1.73 code = 47664) CALC BUN/CREAT (test code = 31 RATIO [...] code = 2219) 13 U/L COMPREHENSIVE METABOLIC [id number] 00:00:00 Test Item Value Reference Range Interpretation Comments GLUCOSE (test code = 2217) 74 MG/DL BUN (test code = 2208) 34 MG/DL CREATININE (test code = 2214) 1.11 MG/DL eGFR AMER. (test code 60 ML/MIN/1.73 = 28878) eGFR NON- AMER. (test 51 ML/MIN/1.73 code = 40166) CALC BUN/CREAT (test code = 31 RATIO [...] (test code = 2219) 13 U/L LIPID [id number] 00:00:00 Test Item Value Reference Range Interpretation Comments CHOLESTEROL (test code = 2210) 220 MG/DL TRIGLYCERIDES (test code = 2232) 136 MG/DL HDL CHOLESTEROL (test code = 2220) 57 MG/DL CALC LDL CHOL (test code = 2237) 136 MG/DL RISK RATIO LDL/HDL (test code = 2.38 RATIO 2238) LIPID [id number] 00:00:00 Test Item Value Reference Range Interpretation Comments CHOLESTEROL (test code = 2210) 220 MG/DL TRIGLYCERIDES (test code = 2232) 136 MG/DL HDL CHOLESTEROL (test code = 2220) 57 MG/DL CALC LDL CHOL (test code = 2237) 136 MG/DL RISK RATIO LDL/HDL (test code = 2.38 RATIO 2238) CBC W/AUTO [id number] 00:00:00 Test Item Value Reference Range Interpretation [...] code = 1015) 294 K/UL CBC W/AUTO [id number] 00:00:00 Test Item Value Reference Range Interpretation [...] code = 1015) 294 K/UL CBC W/AUTO [id number] 00:00:00 Test Item Value Reference Range Interpretation [...] COUNT (test code = 1015) 294 K/UL Notes Date/Time Note Provider Source 2022-06-05 21:22:00-00:00 [id number] [facility] PATIENT NAME: ARMEN LOPEZ ADMIT DATE: ACCOUNT NO: [id number] ROOM NO: V.S16 AGE: 71 REPORT TYPE: DISCHARGE SUMMARY REPORT SEX: F DATE OF : 46 ADMITTING PHYSICIAN:Kari Groves MD ATTENDING PHYSICIAN:Kari Groves MD ADMISSION DATE: 04/27/2022 23:31:00 DISCHARGE DATE: 04/29/2022 15:15:00 DISCHARGE DIAGNOSES: 1. Chest pain, status post left heart catheteriz ation performed on 04/27/2022 -- no intervention was needed, found to be atypi carline chest pain. 2. Uncontrolled hypertension -- resolved. 3. Type 2 diabetes. 4. Hyperlipidemia. CONSULTANTS: Cardiology, pulmonary, and critical care. VITAL SIGNS: Afebrile. Normotensive. Respiratory rate is good. LABS: Reviewed, stable. IMAGING STUDIES: Chest x-ray, found to be negati ve. Repeat chest x-ray found to be negative for any acute findings. HOSPITAL COURSE: A 71-year-o ld female came into the ED with complaints of chest pain, noted to have an abnor mal EKG, needing further evaluation and management. Cardiology was consulted. The patient underwent left heart catheterization on 04/27/2022, found to have a normal catheterization with no obstruction. Patient post-procedurally was sent t o the ICU for close monitoring and evaluation under critical care services. Patient did well overnig ht and was downgraded to a medical tele floor. Chest pain all resolved. I s poke with Cardiology. No further workup needed. Outpatient follow up in the office. A 2D echo was found to be normal. It was felt by Cardiology. The pat ient abnormal EKG was found likely to be repolarization. Patient also noted to have uncontrolled hypertension, for which, her medication was adju sted accordingly. She was cleared for discharge by all consultants. The isis lee's vital signs were stable. Labs reviewed and stable. The patient wa s seen, evaluated and examined. On the day of discharge, no ot her complaints. The patient verbalized understanding and agrees with plan of care to fo llow up as an outpatient with primary care physician in 1 week and Cardiology in 2 weeks' time. The patient was stable prior to being discharged to home in stable condition. Follow up results. I reviewed labs, imaging studies and re commendations of all consultants with the patient at bedside and she verbalized understanding and agrees with plan of care. MEDICATIONS: See medication reconciliation form. DISPOSITION: To home. PATIENT NAME: ARMEN LOPEZ [id number] CONDITION: Stable. DIET: Heart healthy. In the event of any worsenin g symptoms, the patient advised to come back to the emergency department for further evaluation. Discharge summary took greater than 35 minutes. Dictated By: Kari Groves MD Date Dictated: 06/05/2022 21:22:18 Date Transcribed: 06/05/2022 22:17:46 ALENA/JUAN/JOSELITO Receipt ID: [id number] Authenticated by Kari Groves MD On 06/06/2022 02:56:53 PM Electronically Signed by Kari Groves MD on at 0256 PATIENT NAME: ARMEN LOPEZ [id number] 2022-04-29 14:12:00-00:00 [facility] ([facility]) Critical Care Progress Note REPORT#:[id number] REPORT STATUS: Signed DATE:04/29/22 TIME: 1412 PATIENT: ARMEN LOPEZ UNIT #: [id number] ROOM/BED: [address] : 48 AGE: 71 SEX: F ATTEND: Kari Groves MD ADM AUTHOR: Jhonny,Torrie Erickson NP * ALL edits or amendments must be made on the [employer]/computer document * Subjective Chief complaint: CHEST PAIN HPI: 71-year-old female with PMH DM, HTN, HLD who was brought in by family for evaluation of left sided chest pain and syncopal episode. Per reports, EMS EKG shows ST elevation in inferior leads with modera tely large Q waves. Also some mild ST elevation in the lateral leads without s ignificant Q waves. No clear reciprocal changes. Code STEMI called prior to p atient arrival. Patient received 324 mg ASA and 1 spray of nitro in rout e. Initial blood pressure for EMS was in the 220s. After 1 spray of ni tro, blood pressure dropped to the low 100s systolic. Pain did improve after ni tro. Patient continues with mild left- sided chest pain. wharf labourer w as activated by the ER, Cath completed demonstrating Mild to Moderate Nonobstruct jojo disease. Per cardiology, will medically manage. Admitted to ICU for observation. Review of Systems Constitutional: Reports: generalized weakness. All systems rev neg: except as marked Objective General VS/I O Last Documented: Result Date Time Pulse Ox 98 04/29 1511 FiO2 21 04/29 1511 O2 Delivery Room air 04/29 1511 O2 Flow Rate 0 04/29 1511 B/P 157/70 04/29 1400 B/P Mean 101 04/29 1400 Pulse 75 04/29 1400 Resp 26 04/29 1400 Temp 98.6 04/29 1202 24 hour I O ending at 0700: 04/29 0700 04/28 1900 Intake Total 825.00 Output Total 400 Balance 425.00 Intake, IV 825.00 Number 1 Incontinent Voids Output, Urine 400 Patient 73.482 kg Weight PATIENT WEIGHT: Weight (lb): 162 Weight (oz): 4.16 Weight (kg): 73.482 Medications: Active Meds + DC'd Last 24 Hrs Magnesium Oxide (MAG-OX 400) 400 MG ONCE ONE PO (DC) Atorvastatin Calcium (LIPITOR 40MG TAB) 40 MG BE DTIME PO (DCD) Carvedilol (COREG 12.5MG TAB) 12.5 MG Q12HR PO ( DCD) Acetaminophen (TYLENOL) 650 MG Q6H PRN PRN PO (D CD) Benzonatate (BENZONATATE) 100 MG Q6H PRN PRN PO (DCD) Hydralazine HCl (APRESOLINE) 10 MG Q4H PRN PRN I V (DCD) Melatonin (MELATONIN) 6 MG BEDTIME PRN PO (DCD) Miscellaneous Information (PHARMACY TO DOSE/EVAL UATE) 1 EACH ASDIR MISC (DCD) Aspirin (ECOTRIN) 81 MG DAILY PO (DCD) Mupirocin (BACTROBAN 2% OINTMENT) 1 APPLIC BID N NARENDRA (DCD) Senna/Docusate Sodium (SENNA-S 50 MG/8.6 MG TABL ET) 1 TAB BID PO (DCD) Insulin Human Lispro (HUMALOG) S/SCALE MED AC HS SUBQ (DCD) Influenza Virus Vaccine (FLUZONE HIGH-DOSE QUAD ) 240 MCG ASDIR IM (DCD) Dextrose/Water (DEXTROSE 50%-WATER) 50 ML ASDIR PRN IV (DCD) Ondansetron HCl (ondansetron HCL) 4 MG Q6H PRN P RN IV (DCD) Sodium Chloride (SODIUM CHLORIDE 0.9%) 1,000 ML .[id number] IV (DCD) Physical Exam General appearance: alert, awake, oriented, no a cute distress Head/eyes: atraumatic, clear cornea, normal conjunctiva/sclera, normal eyelids/ periorb. ENT: normal ear left, normal ear right, normal n ose Neck: full range of motion, no JVD, no masses or swelling Cardiovascular: normal capil harley refill, regular rate and rhythm, normal S1/S2, no ectopy Respiratory: aerating well, clear to auscultatio n, symmetric expansion, no distress Abdomen: soft, non-tender Genitourinary: no bladder distention Extremities: no clubbing, no cyanosis, no edema Musculoskeletal normal inspection, no muscle spa sm Neuro/BRICKMASON: alert, oriented X 3 Skin: dry, normal color, normal temperature Psychiatry: normal affect, normal mood Results Findings/data: Laboratory Tests 04/29 04/29 04/28 1010 0120 2056 Chemistry Sodium (136 - 145 mmol/L) 138 Potassium (3.5 - 5.1 mmol/L) 4.2 Chloride (98 - 107 mmol/L) 110.0 H Carbon Dioxide (21 - 32 mmol/L) 20.0 L Anion Gap (10 - 20) 12.2 BUN (7 - 18 mg/dL) 18 Creatinine (0.55 - 1.02 mg/dL) 1.10 H Glomerular Filtr Rate (>=60 mL/min) 53 BUN/Creatinine Ratio (10 - 20) 16.4 Glucose (74 - 106 mg/dL) 139 H POC Glucose (74 - 106 mg/dL) 250 H 188 H Calcium (8.5 - 10.1 mg/dL) 8.1 L Phosphorus (2.5 - 4.9 mg/dL) 3.2 Magnesium (1.8 - 2.4 mg/dL) 1.9 Total Bilirubin (0.0 - 1.0 mg/dL) 0.50 AST (15 - 37 IUnit/L) 13 L ALT (12 - 78 IUnit/L) < 7 L Total Alk Phosphatase (45 - 117 IUnit/L) 92 Total Protein (6.4 - 8.2 gram/dL) 6.4 Albumin (3.4 - 5.0 g/dL) 3.0 L Globulin (2.7 - 4.2 gram/dL) 3.4 Albumin/Globulin Ratio (0.75 - 1.50) 0.9 Laboratory Tests 04/29 0120 Hematology WBC (4.5 - 12.5 K/mm3) 5.9 RBC (3.7 - 5.2 mill/mm3) 3.66 L Hgb (11.5 - 15.5 gram/dL) 11.2 L Hct (36.0 - 46.0 %) 33.8 L MCV (80 - 98 fL) 92.3 MCH (27.0 - 33.0 picogram) 30.6 MCHC (33.0 - 36.0 gram/dL) 33.1 RDW (11.6 - 16.2 %) 13.5 RDW Std Deviation (37.0 - 51.0 fL) 45.5 Plt Count (150 - 450 K/mm3) 216 MPV (6.7 - 11.0 fL) 10.7 Neut % (Auto) (39.0 - 69.0 %) 45.7 Lymph % (Auto) (25.0 - 55.0 %) 41.5 [place] % (Auto) (0.0 - 10.0 %) 9.2 Eos % (Auto) (0.0 - 5.0 %) 2.6 Baso % (Auto) (0.0 - 1.0 %) 0.7 Neut # (Auto) (1.8 - 7.7 K/mm3) 2.69 Lymph # (Auto) (1.0 - 5.0 K/mm3) 2.44 [place] # (Auto) (0 - 0.8 K/mm3) 0.54 Eos # (Auto) (0.0 - 0.5 K/mm3) 0.15 Baso # (Auto) (0.0 - 0.2 K/mm3) 0.04 Nucleated RBC % (0 - 0 %) 0.0 Nucleated RBCs # (Man) (0.0 - 0.1 K/mm3) 0.00 Laboratory Tests 04/29/22 0120: [Embedded Image Not Available] Diagnosis, Assessment Plan Free text A P: History of Present Illness: 71-year-old female with PMH DM, HTN, HLD who was brought in by family for evaluation of left sided chest pain and syncopal episode. Per reports, EMS EKG shows ST elevation in inferior leads with modera tely large Q waves. Also some mild ST elevation in the lateral leads without s ignificant Q waves. No clear reciprocal changes. Code STEMI called prior to p atient arrival. Patient received 324 mg ASA and 1 spray of nitro in rout e. Initial blood pressure for EMS was in the 220s. After 1 spray of ni tro, blood pressure dropped to the low 100s systolic. Pain did improve after ni tro. Patient continues with mild left- sided chest pain. wharf labourer w as activated by the ER, Cath completed demonstrating Mild to Moderate Nonobstruct jojo disease. Per cardiology, will medically manage. Admitted to ICU for observation. Hospital Course: 04/28/22 - Admitted to ICU s/p laboratory monitor with Mil d to Moderate Nonobstructive disease. Per cardiology, will medically manage. 04/29/22 - No new events overnight. Danny es any further chest pain or shortness of breath. Currently on aspirin, statin, and bet a-dayan. Okay to transfer out of ICU versus DC home. Cardiology is okay wi th discharge to home. Primary team notified. Active Problems: Acute STEMI - EMS EKG shows ST elevation in inferior leads w ith moderately large Q waves - Code STEMI called prior to patient arrival. - cardiology following - Cath completed demonstrating Mild to Moderate Nonobstructive disease - follow post cath orders - ASA, statin per cardiology - check HgbA1C and Lipid profile - STAT Echo pending Acute kidney injury Electrolyte and fluid imbalance - Trend Cr and follow UOP - Replete electrolytes per protocol Co-morbidities:DM, HTN, HLD ICU Patient Safety Checklist: - Diet: Cardiac - Bowel regimen: Senna Colace - Glucose:ACHS - Antibiotics: - Home meds resumed: yes except - Ulcer prophylaxis (discontinue if on diet): - DVT prophylaxis: SCD - [place]: - Lines: PIV - Wounds or pressure ulcer present on admission: TBD - Next of kin: - Code status: Full code - Disposition: ICU Critical care time: 35 minutes, excluding proced ures, was spent directly evaluating the patient at the bedside, i nterpreting labs and imaging, ordering new labs and medications, an d discussing the case with the ICU multidisciplinary team, consultants and admitting teams. Electronically Signed by Torrie Barry NP on 04/29 at 1620 Electronically Signed by Sherrie Nunez MD on 1 07/20/21 at 1315 RPT #:[id number] END OF REPORT 2022-04-29 12:45:00-00:00 [facility] ([facility]) Clinical Note REPORT#:[id number] REPORT STATUS: Signed DATE:04/29/22 TIME: 1245 PATIENT: ARMEN LOPEZ UNIT #: [id number] ROOM/BED: [address] : 48 AGE: 71 SEX: F ATTEND: Kari Groves MD ADM AUTHOR: Kari Groves MD * ALL edits or amendments must be made on the [employer] document * Clinical Note Note: DC SUMMARY: [id number] Electronically Signed by Kari Groves MD on 07/27 at 2122 RPT #:[id number] END OF REPORT 2022-04-29 11:23:00-00:00 [facility] ([facility] Cardiology Progress Note REPORT#:[id number] REPORT STATUS: Signed DATE:04/29/22 TIME: 1123 PATIENT: ARMEN LOPEZ UNIT #: [id number] ROOM/BED: [address] : 48 AGE: 71 SEX: F ATTEND: Kari Groves MD ADM AUTHOR: Madina Gordon APRN * ALL edits or amendments must be made on the [employer] document * Subjective Free Text Subj Notes Free Text Subj Notes: Cardiology progress note Date of service: 04/29/2022 Chief complaint/reason for consult: Syncope/ches t pain. Patient seen and examined, c manoj reviewed, questions/concerns addressed with RN. Current medication and vitals reviewed and liste d above HPI and interval Hx: On 04/28/2022, patient Porter hendrix, 71 yo presented with chest pain and syncope Inital ECG demonstrated possibl e STEMI and the laboratory monitor was activated by the ER Cath com pleted demonstrating Mild to Moderate Nonobstructive disease, no intervention. Right femoral cath sit e without hematoma, pulses palpable Subjective: Denies any chest pain or shortness o f breath Objective: Vital Signs Date Temp Pulse Resp B/P B/P Mean Pulse Ox FiO2 04/28-04/29 98.4-98.6 69-86 15-31 100-166/54-77 74-111 95-100 Vital signs as above Physical examination: GEN: Alert and cooperative, no acute distress. HEENT: NC/AT, EOMI CARD: RRR, normal S1/S2, no R/M/G appreciated LUNGS: CTA w/o added sounds, GBAE. ABD: Soft, nondistended, nontender. Intact BS EXT: No obvious deformities. No edema. Periphera l pulses intact NEURO: AOx4, CN II-XII grossly intact. SKIN: Warm and dry, no rashes/lesions. PSYCH: AOx4. Appropriate mood and affect Laboratory Tests: 04/29 04/29 04/28 04/28 1010 0120 2056 1609 Chemistry Sodium (136 - 145 mmol/L) 138 Potassium (3.5 - 5.1 mmol/L) 4.2 Chloride (98 - 107 mmol/L) 110.0 H Carbon Dioxide (21 - 32 mmol/L) 20.0 L Anion Gap (10 - 20) 12.2 BUN (7 - 18 mg/dL) 18 Creatinine (0.55 - 1.02 mg/dL) 1.10 H Glomerular Filtr Rate (>=60 mL/min) 53 BUN/Creatinine Ratio (10 - 20) 16.4 Glucose (74 - 106 mg/dL) 139 H POC Glucose (74 - 106 mg/dL) 250 H 188 H 199 H Calcium (8.5 - 10.1 mg/dL) 8.1 L Phosphorus (2.5 - 4.9 mg/dL) 3.2 Magnesium (1.8 - 2.4 mg/dL) 1.9 Total Bilirubin (0.0 - 1.0 mg/dL) 0.50 AST (15 - 37 IUnit/L) 13 L ALT (12 - 78 IUnit/L) < 7 L Total Alk Phosphatase (45 - 117 IUnit/L) 92 Total Protein (6.4 - 8.2 gram/dL) 6.4 Albumin (3.4 - 5.0 g/dL) 3.0 L Globulin (2.7 - 4.2 gram/dL) 3.4 Albumin/Globulin Ratio (0.75 - 1.50) 0.9 Hematology WBC (4.5 - 12.5 K/mm3) 5.9 RBC (3.7 - 5.2 mill/mm3) 3.66 L Hgb (11.5 - 15.5 gram/dL) 11.2 L Hct (36.0 - 46.0 %) 33.8 L MCV (80 - 98 fL) 92.3 MCH (27.0 - 33.0 picogram) 30.6 MCHC (33.0 - 36.0 gram/dL) 33.1 RDW (11.6 - 16.2 %) 13.5 RDW Std Deviation (37.0 - 51.0 fL) 45.5 Plt Count (150 - 450 K/mm3) 216 MPV (6.7 - 11.0 fL) 10.7 Neut % (Auto) (39.0 - 69.0 %) 45.7 Lymph % (Auto) (25.0 - 55.0 %) 41.5 [place] % (Auto) (0.0 - 10.0 %) 9.2 Eos % (Auto) (0.0 - 5.0 %) 2.6 Baso % (Auto) (0.0 - 1.0 %) 0.7 Neut # (Auto) (1.8 - 7.7 K/mm3) 2.69 Lymph # (Auto) (1.0 - 5.0 K/mm3) 2.44 [place] # (Auto) (0 - 0.8 K/mm3) 0.54 Eos # (Auto) (0.0 - 0.5 K/mm3) 0.15 Baso # (Auto) (0.0 - 0.2 K/mm3) 0.04 Nucleated RBC % (0 - 0 %) 0.0 Nucleated RBCs # (Man) (0.0 - 0.1 K/mm3) 0.00 EKG Interpretation: NSR Early Repolarization Echocardiogram Result: Conclusions Summary: Left ventricle: The cavity size is norm al. Wall thickness is mildly increased. Systolic function is normal. T he estimated ejection fraction is 55-60%. Prepared and electronically signed by German Stephens MD 04/28/2022 11:00 PATIENT NAME: ARMEN LOPEZ [id number] >>>>>>>>>>>>>>>>>>>>>>>>>&gt ;>>>>>> END OF PAGE <<<<<<<<<<<<<<<<<<<<<<<<<<<<<<<< Diagnosis, Assessment Plan Problem List/A P: 1. 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 Syncope and collapse Free Text DxA P Notes Free Text DxA P Notes: 71 yo with chest pain and sy ncope Inital ECG demonstrated possible STEMT and the laboratory monitor was activated by the ER Cath co mpleted demonstrating Mild to Moderate Nonobstructive disease Plan 1. Moniter on Telemetery 2. Start Aspirin and Lipitor for 40% stenosis in Mid LAD Electronically Signed by German Stephens MD on at 0007 04/29/2022 Plan/recommendation: On 04/28/2022, patient Porter hendrix, 71 yo presented with chest pain and syncope Inital ECG demonstrated possibl e STEMI and the laboratory monitor was activated by the ER Cath com pleted demonstrating Mild to Moderate Nonobstructive disease, no intervention. Right femoral cath sit e without hematoma, pulses palpable -Discharge medications should include: -Continue antiplatelet/Aspirin daily for life a nd high intensity statin/ Lipitor -Normal systolic function LVEF 55 to 60%. Bert nue betablocker -Discharge instruction should include: -Aggressive risk factor modication, weight redu ction -Provide CAD/CHF education materials -No heavy lifting x 1 week. Cath site precautio n/right femoral cath site incission care. -Follow-up in cardiology clinic with Dr. Stephens in 2 weeks-family/sons instructed to call office to set appointment Thank you for your consultat ion and allowing us to take the care of your patient please do not hesitate to contact us with any qu estions or concerns. Madina Gordon, [facility]ACER JACQUARD Dr. German Stephens MD-Attending Applications Project Manager [facility] Cardiology at 1243 Electronically Signed by German Stephens MD on at 1317 RPT #:[id number] END OF REPORT 2022-04-29 11:00:00-00:00 [facility] ([facility]) Internal Medicine Prog. Note REPORT#:[id number] REPORT STATUS: Signed DATE:04/29/22 TIME: 1100 PATIENT: ARMEN LOPEZ UNIT #: [id number] ROOM/BED: [address] : 48 AGE: 71 SEX: F ATTEND: Kari Groves MD ADM AUTHOR: Kari Groves MD * ALL edits or amendments must be made on the el [employer]/computer document * Subjective Free Text Subj Notes Free Text Subj Notes: No overnight events. Afebrile. Review of Systems All systems rev neg: except as marked Objective General VS/I O: Vital Signs Date Temp Pulse Resp B/P B/P Mean Pulse Ox FiO 2 04/28-04/29 36.9-37.0 69-88 15-30 100-166/54-77 74-111 97-100 Last Documented: Result Date Time O2 Delivery Nasal cannula 04/29 08 O2 Flow Rate 2 04/29 08 Temp 37.0 04/29 0800 Pulse Ox 99 04/29 0600 B/P 146/65 04/29 0600 B/P Mean 94 04/29 0600 Pulse 72 04/29 0600 Resp 21 04/29 0600 24 hour I O ending at 0700: 04/29 0700 04/28 1900 Intake Total 825.00 Output Total 400 Balance 425.00 Intake, IV 825.00 Number 1 Incontinent Voids Output, Urine 400 Patient 73.482 kg Weight PATIENT WEIGHT: Weight (lb): 162 Weight (oz): 4.16 Weight (kg): 73.482 Medications: Active Meds + DC'd Last 24 Hrs Magnesium Oxide (MAG-OX 400) 400 MG ONCE ONE PO (DC) Atorvastatin Calcium (LIPITOR 40MG TAB) 40 MG BE DTIME PO Carvedilol (COREG 12.5MG TAB) 12.5 MG Q12HR PO Acetaminophen (TYLENOL) 650 MG Q6H PRN PRN PO Benzonatate (BENZONATATE) 100 MG Q6H PRN PRN PO Hydralazine HCl (APRESOLINE) 10 MG Q4H PRN PRN I V Melatonin (MELATONIN) 6 MG BEDTIME PRN PO Miscellaneous Information (PHARMACY TO DOSE/EVAL UATE) 1 EACH ASDIR MISC Aspirin (ECOTRIN) 81 MG DAILY PO Mupirocin (BACTROBAN 2% OINTMENT) 1 APPLIC BID N NARENDRA Senna/Docusate Sodium (SENNA-S 50 MG/8.6 MG TABL ET) 1 TAB BID PO Insulin Human Lispro (HUMALOG) S/SCALE MED AC HS SUBQ Influenza Virus Vaccine (FLUZONE HIGH-DOSE QUAD ) 240 MCG ASDIR IM Dextrose/Water (DEXTROSE 50%-WATER) 50 ML ASDIR PRN IV (CKD) Ondansetron HCl (ondansetron HCL) 4 MG Q6H PRN P RN IV Sodium Chloride (SODIUM CHLORIDE 0.9%) 1,000 ML .[id number] IV Physical Exam General appearance: alert, awake, oriented Head/Eyes: atraumatic, EOMI ENT: moist mucosal membranes Neck: full range of motion, non-tender Cardiovascular: normal capillary refill, normal heart sounds, regular rate rhythm, no murmur Respiratory: aerating well, clear to auscultatio n Abdomen: non-tender, normal bowel sounds, soft Extremities: Extremities: full range of motion, moves all Musculoskeletal: full range of motion, normal in spection Neuro/BRICKMASON: alert, oriented x 3 Skin: dry, intact Results Findings/Data: Laboratory Tests 04/29/22 0120: [Embedded Image Not Available] Laboratory Tests 04/29 04/29 04/28 04/28 04/28 1010 0120 2056 1609 1123 Chemistry Sodium (136 - 145 mmol/L) 138 Potassium (3.5 - 5.1 mmol/L) 4.2 Chloride (98 - 107 mmol/L) 110.0 H Carbon Dioxide (21 - 32 mmol/L) 20.0 L Anion Gap (10 - 20) 12.2 BUN (7 - 18 mg/dL) 18 Creatinine (0.55 - 1.02 mg/dL) 1.10 H Glomerular Filtr Rate (>=60 mL/min) 53 BUN/Creatinine Ratio (10 - 20) 16.4 Glucose (74 - 106 mg/dL) 139 H POC Glucose (74 - 106 mg/dL) 250 H 188 H 199 H 137 H Calcium (8.5 - 10.1 mg/dL) 8.1 L Phosphorus (2.5 - 4.9 mg/dL) 3.2 Magnesium (1.8 - 2.4 mg/dL) 1.9 Total Bilirubin (0.0 - 1.0 mg/dL) 0.50 AST (15 - 37 IUnit/L) 13 L ALT (12 - 78 IUnit/L) < 7 L Total Alk Phosphatase (45 - 117 92 IUnit/L) Total Protein (6.4 - 8.2 gram/dL) 6.4 Albumin (3.4 - 5.0 g/dL) 3.0 L Globulin (2.7 - 4.2 gram/dL) 3.4 Albumin/Globulin Ratio (0.75 - 1.50) 0.9 Laboratory Tests 04/29 0120 Hematology WBC (4.5 - 12.5 K/mm3) 5.9 RBC (3.7 - 5.2 mill/mm3) 3.66 L Hgb (11.5 - 15.5 gram/dL) 11.2 L Hct (36.0 - 46.0 %) 33.8 L MCV (80 - 98 fL) 92.3 MCH (27.0 - 33.0 picogram) 30.6 MCHC (33.0 - 36.0 gram/dL) 33.1 RDW (11.6 - 16.2 %) 13.5 RDW Std Deviation (37.0 - 51.0 fL) 45.5 Plt Count (150 - 450 K/mm3) 216 MPV (6.7 - 11.0 fL) 10.7 Neut % (Auto) (39.0 - 69.0 %) 45.7 Lymph % (Auto) (25.0 - 55.0 %) 41.5 Madison % (Auto) (0.0 - 10.0 %) 9.2 Eos % (Auto) (0.0 - 5.0 %) 2.6 Baso % (Auto) (0.0 - 1.0 %) 0.7 Neut # (Auto) (1.8 - 7.7 K/mm3) 2.69 Lymph # (Auto) (1.0 - 5.0 K/mm3) 2.44 Madison # (Auto) (0 - 0.8 K/mm3) 0.54 Eos # (Auto) (0.0 - 0.5 K/mm3) 0.15 Baso # (Auto) (0.0 - 0.2 K/mm3) 0.04 Nucleated RBC % (0 - 0 %) 0.0 Nucleated RBCs # (Man) (0.0 - 0.1 K/mm3) 0.00 Results: labs reviewed Diagnosis, Assessment Plan Free Text DxA P Notes Free text DxA P notes: 1. Left-sided chest pain status post left heart cath performed 04/27/2022 in the evening, no intervention was needed, spoke w erika cardiology felt to be repolarization; continue with antiplatelet thera py, cardioprotective meds, statin, currently in ICU downgrade to medical te lemetry floor 04/29: Patient is chest pain-free. Cont inue cardioprotective meds. Left heart cath found to be negative. 2D echo was found to be normal. Awaiting downgrade to medical telemetry floor. Discharge planning h ome soon. Blood pressure is much improved. 2. Uncontrolled hypertension resume same antihyp ertensive medications, adjust accordingly, IV as needed hydralazine 3. Type 2 diabetes sliding scale, Accu-Cheks, A1 c 4. Hyperlipidemia oral statin 5. Nutrition diabetic diet 6. Physical therapy and Occupational Therapy 7. Lovenox for DVT prophylaxis Consultants: Cardiology, pulmonary critical care Electronically Signed by Kari Groves MD on at 1101 RPT #:[id number] END OF REPORT 2022-04-28 11:00:00-00:00 [id number] [facility] PATIENT NAME: ARMEN LOPEZ ADMIT DATE: ACCOUNT NO: [id number] ROOM NO: [facility] AGE: 71 REPORT TYPE: eECHOCARDIOGRAM REPORT SEX: F DATE OF : 46 ADMITTING PHYSICIAN:Kari Groves MD ATTENDING PHYSICIAN:Kari Groves MD *[facility]* [address] [place], [place] [address] Transthoracic Echocardiogram Patient: Armen Lopez Study Date: 04/28/2022 BP: Location: [facility] URN: [id number] : 1950 Age: 71 Height: 62 in / 157.5 cm Gender: F Weight: 16 0.6 lb / 73 kg BMI/BSA: 29.4 kg/m 2 / 1.81 m 2 *Ordering Physician: * Sophie Torres *Interpreting Physician: * German Stephens MD *Field Reporter: * Albaro Henry Than Indications: Eval lv. Study data: Transthoracic echocardiogram. Comple te 2D, complete spectral Doppler, and color Doppler. Location: [facility]. Patient status: Inpatient. Patient room number: s16. Kermit dy status: Routine. Findings Left ventricle: The cavity size is normal. Wall thickness is mildly increased. Systolic function is normal. The helga mated ejection fraction is 55-60%. Right ventricle: The cavity size is normal. Syst olic function is normal. Left atrium: The atrium is normal in size. Right atrium: The atrium is normal in size. Aorta: Aortic root: The aortic root is normal in size. Aortic valve: The valve is trileaflet. The leafl ets are mildly PATIENT NAME: ARMEN LOPEZ [id number] calcified. There is no evidence of stenosis. The re is no regurgitation. Mitral valve: The valve is structurally normal. There is no evidence of stenosis. There is mild regurgitatio n. Tricuspid valve: The valve is structurally elton l. There is mild regurgitation. Pulmonic valve: The valve is structurally normal . There is no regurgitation. Pericardium: There is no pericardial effusion. Pulmonary arteries: The main pulmonary artery is normal-sized. Systemic veins: Inferior vena cava: The vessel is normal in size . Measurements Left ventricle Value Ref HARJINDER, LAX 3.1 cm 3.8 - 5.2 ESD, LAX 2.1 cm 2.2 - 3.5 ESD/bsa, LAX 1.2 cm/m 2 1.3 - 2.1 FS, LAX 31 % 27 - 45 PW, ED 1.2 cm 0.6 - 0.9 IVS/PW, ED 0.98 --------- EF 61 % 54 - 74 E', lat jack, TDI 9.7 cm/sec >=10.0 E/e', lat jack, 6 --------- TDI LVOT Value Ref Diam, S 2.00 cm --------- Area 3.1 cm 2 --------- Peak cora, S 1.16 m/sec --------- Mean cora, S 0.88 m/sec --------- VTI, S 23.7 cm --------- Peak grad, S 5 mm Hg --------- Mean grad, S 3 mm Hg --------- SV 74 ml --------- Qs 16.53 L/min --------- Qs/bsa 9.1 L/(min-m 2) --------- SV/bsa 41 ml/m 2 --------- Ventricular septum Value Ref IVS, ED 1.2 cm 0.6 - 0.9 Right ventricle Value Ref HARJINDER, LAX 2.6 cm --------- Pressure, S 21 mm Hg --------- Left atrium Value Ref AP dim, ES 2.53 cm 2.70 - 3.80 AP dim, ES MM 2.6 cm 2.7 - 3.8 LA/Ao root 0.91 --------- PATIENT NAME: ARMEN LOPEZ [id number] ratio, MM Aortic valve Value Ref Leaflet sep, MM 1.64 cm --------- Peak v, S 1.25 m/sec --------- Mean v, S 0.96 m/sec --------- VTI, S 22.6 cm --------- Mean grad, S 4.1 mm Hg --------- Peak grad, S 6.2 mm Hg --------- LVOT/AV, VTI 1.05 --------- ratio DONAL, VTI 3.28 cm 2 --------- LVOT/AV, Vpeak 0.93 --------- ratio DONAL, Vmax 2.90 cm 2 --------- Mitral valve Value Ref E-septal 0.4 cm --------- separation E-F slope 0.07 m/sec --------- Peak E 0.6 m/sec --------- Peak A 1.03 m/sec --------- Decel time 129 ms --------- Peak E/A ratio 0.58 --------- MR peak v 3.34 m/sec --------- Pulmonic valve Value Ref VA v, ED 2.24 m/sec --------- VA grad, ED 20 mm Hg --------- Tricuspid valve Value Ref TR peak v 2.14 m/sec <=2.8 Peak RV-RA grad, 18 mm Hg --------- S Aortic root Value Ref Root diam, ED MM 2.90 cm --------- Ascending aorta Value Ref AAo AP diam, S 2.8 cm --------- AAo AP diam/bsa, 1.5 cm/m 2 --------- S Pulmonary artery Value Ref Pressure, S 17.6 mm Hg --------- Systemic veins Value Ref Estimated CVP 3 mm Hg --------- Conclusions Summary: Left ventricle: The cavity size is norm al. Wall thickness is mildly increased. Systolic function is normal. T he estimated ejection PATIENT NAME: ARMEN LOPEZ [id number] fraction is 55-60%. Prepared and electronically signed by German Stephens MD 04/28/2022 11:00 Electronically Signed by German Stephens MD on at 1100 PATIENT NAME: ARMEN LOPEZ [id number] 2022-04-28 10:42:00-00:00 [facility] ([facility]) History Physical - Adult REPORT#:[id number] REPORT STATUS: Signed DATE:04/28/22 TIME: 104 PATIENT: ARMEN LOPEZ UNIT #: [id number] ROOM/BED: [address] : 48 AGE: 71 SEX: F ATTEND: Kari Groves MD ADM AUTHOR: Kari Groves MD * ALL edits or amendments must be made on the [employer] document * History of Present Illness HPI Chief complaint: Chest pain Free Text HPI Notes Free Text HPI Notes: 71-year-old female history of hypertension type 2 diabetes hyperlipidemia she came into the ED with complaints of left-sided c hest pain and had a syncopal episode. On presentation to the emergenc y room EKG showed a STEMI in which the Commercial Counsel was activated. Patient underwent left h eart cath and noted and required no PCI stenting. It was felt to be more repolarization. On admission patient noted to be hypertensive blood pressure systolically in the 220s. She required some nitroglycerin with blood pressure much improved. Patient was sent to the ICU post cath for close monitoring and ev aluation. Patient seen and evaluated at bedside on the medical floor she is currently doing much better with no issues at this time History Past medical history: Reports: Diabetes mellitus, Hypertension, Dyslip idemia. Past surgical history: Reports: Hysterectomy. Family history: Reports: Diabetes, Hypertension. Alcohol use: Denies EtOH use Drug use: Denies recreational drugs Smoking status for patients 13 years old or olde r: Never Smoker Medication/Allergy-Vaccine Hx Medications: Home Medications: Medication Dose/Rte/Freq Days Qty Entered Last Max Daily Dose Reviewed levoFLOXacin (LEVAQUIN) 500 MG PO DAILY 4 Strength: 500 MG TAB 1055 metFORMIN (GLUCOPHAGE) 500 MG PO BID 05/24/14 Strength: 500 MG TAB 1055 Current Hospital Medications: Blood Formation,Coagulation Sig/[place] Start time Last Medication Dose Route Stop Time Status Admin Heparin Sodium 1,500 ML .STK-MED ONE 04/27 2320 DC 04/28 (HEPARIN SODIUM in IV 0039 0.9% NACL) Cardiovascular Drugs Sig/[place] Start time Last Medication Dose Route Stop Time Status Admin Atorvastatin Calcium 40 MG BEDTIME 04/28 2100 A C (LIPITOR 40MG TAB) PO 05/28 2059 Carvedilol 12.5 MG Q12HR 04/28 2100 AC (COREG 12.5MG TAB) PO 05/28 2059 Nitroglycerin/ 250 ML .STK-MED ONE 04/270 D C 04/28 Dextrose IV 0039 (NITROGLYCERIN 50MG/ D5 250ML) Lidocaine HCl 0 .STK-MED ONE 04/279 DC 04/05 5 (LIDOCAINE HCL 2%) .ROUTE 0047 Central Nervous System Agents Sig/[place] Start time Last Medication Dose Route Stop Time Status Admin Aspirin 81 MG DAILY 04/28 0900 AC 04/28 (ECOTRIN) PO 05/28 0859 0809 Magnesium Sulfate 50 ML ONCE ONE 04/28 0445 DC 04/28 (MAGNESIUM 2G/50 ML IV 04/28 0544 0537 WATER) Midazolam HCl 0 .STK-MED ONE 04/270 DCr (VERSED) .ROUTE 0039 Fentanyl Citrate 0 .STK-MED ONE 04/27 2339 DC 06/28 (SUBLIMAZE INJ. 2ML) .ROUTE 0039 Diagnostic Agents Sig/[place] Start time Last Medication Dose Route Stop Time Status Admin Iopamidol 0 .STK-MED ONE 04/27 2320 DC (ISOVUE-370) .ROUTE Electrolytic, Caloric, And Torrie Sig/[place] Start time Last Medication Dose Route Stop Time Status Admin Sodium Chloride 1,000 ML .[id number] 04/28 0015 AC 04/28 (SODIUM CHLORIDE IV 05/28 0014 0122 0.9%) Gastrointestinal Drugs Sig/[place] Start time Last Medication Dose Route Stop Time Status Admin Senna/Docusate Sodium 1 TAB BID 04/28 0900 AC 1 06/28 (SENNA-S 50 MG/8.6 PO 05/28 0859 0810 MG TABLET) Ondansetron HCl 4 MG Q6H PRN PRN 04/28 0030 AC (ondansetron HCL) IV 05/28 0029 Hormones And Synthetic Substit Sig/[place] Start time Last Medication Dose Route Stop Time Status Admin Insulin Human Lispro See Dose AC HS 04/28 0730 AC 04/28 (HUMALOG) Insts (1) SUBQ 05/28 0729 0809 Serums, Toxoids, And Vaccines Sig/[place] Start time Last Medication Dose Route Stop Time Status Admin Influenza Virus 240 MCG ASDIR 04/28 0245 AC Vaccine IM 05/28 0244 (FLUZONE HIGH-DOSE QUAD ) Skin And Mucous Membrane Agent Sig/[place] Start time Last Medication Dose Route Stop Time Status Admin Mupirocin 1 APPLIC BID 04/28 0900 DC (BACTROBAN 2% NASAL 05/02 1701 OINTMENT) Mupirocin 1 APPLIC BID 04/28 0900 AC 04/28 (BACTROBAN 2% NASAL 05/02 170 0809 OINTMENT) Tpn Carrier Sig/[place] Start time Last Medication Dose Route Stop Time Status Admin Dextrose/Water 50 ML ASDIR PRN 04/28 0030 CKD (DEXTROSE 50%-WATER) IV 05/28 0029 Dextrose/Water 50 ML ASDIR PRN 04/27 2330 DC (DEXTROSE 50%-WATER) IV 05/27 2329 Other Sig/[place] Start time Last Medication Dose Route Stop Time Status Admin Miscellaneous 1 EACH ASDIR 04/28 0945 AC Information MISC 05/28 0944 (PHARMACY TO DOSE/ EVALUATE) Dose Instructions: (1)Insulin Human Lispro (HUMALOG): S/SCALE MED Allergies: Coded Allergies: No Known Allergies (05/21/14) Review of Systems Free Text ROS Notes Free Text ROS Notes: Pertinent positive: Chest pain left-sided The rest of 14 point review systems are reviewed with patient and are negative Physical Exam VS/I O Vital Signs: Date Time Temp Pulse Resp B/P B/P Pulse O2 O2 F low FiO2 Mean Ox Delivery Rate 04/28 08 36.9 Nasal 2 cannula 04/28 08 Nasal 2 cannula 04/28 0800 89 25 156/76 109 100 04/28 0700 88 26 148/80 108 100 04/28 0600 87 14 140/69 97 100 04/28 0500 88 20 150/75 104 100 04/28 0400 36.8 84 21 133/62 89 100 Nasal 3 cannula 04/28 0400 84 21 133/62 89 100 04/28 0300 86 17 139/70 96 100 04/28 0230 85 23 146/65 93 100 04/28 0216 Nasal 3 cannula 04/28 0200 84 24 145/71 100 100 04/28 0130 82 23 134/66 89 100 04/28 0115 85 25 150/75 103 100 04/27 2320 18 04/27 2319 95 04/27 2259 84 17 108/63 78 96 Room air 24 hour I O ending at 0700: 04/28 0700 04/27 1900 Intake Total 500.00 Output Total 200 Balance 300.00 Intake, IV 500.00 Number 1 Bowel Movements Number 1 Incontinent Voids Output, Urine 200 Patient 73.6 kg Weight Weight Bed scale Measurement Method PATIENT WEIGHT: Weight (lb): 162 Weight (oz): 4.16 Weight (kg): 73.600 General appearance: alert, awake, oriented Head/Eyes: atraumatic, EOMI ENT: moist mucosal membranes Neck: full range of motion, non-tender Cardiovascular: normal capillary refill, regular rate rhythm, normal heart sounds Respiratory: clear to auscultation, no distress, no tenderness Abdomen/GI: active bowel sounds, soft, non-tende r Extremities: moves all, no edema-all extremities Musculoskeletal: full range of motion, normal in spection Neuro/BRICKMASON: alert, oriented X 3 Results Findings/Data: Laboratory Tests: 04/28 04/28 04/28 04/28 04/27 0722 0556 0420 4626 2308 Chemistry Sodium (136 - 145 mmol/L) 138 136 Potassium (3.5 - 5.1 mmol/L) 4.5 4.6 Chloride (98 - 107 mmol/L) 106.0 105.0 Carbon Dioxide (21 - 32 mmol/L) 19.0 L 17.0 L Anion Gap (10 - 20) 17.5 18.6 BUN (7 - 18 mg/dL) 38 H 37 H Creatinine (0.55 - 1.02 mg/dL) 1.60 H 1.50 H Glomerular Filtr Rate (>=60 mL/min) 34 37 BUN/Creatinine Ratio (10 - 20) 24.2 H 24.8 H Glucose (74 - 106 mg/dL) 334 H 298 H POC Glucose (74 - 106 mg/dL) 230 H Hemoglobin A1c (% HbA1) 8.4 Estim Average Glucose (MG/DL) 194 Calcium (8.5 - 10.1 mg/dL) 8.4 L 9.0 Ionized Calcium Obed (1.12 - 1.32 mmol/L) 1.19 Phosphorus (2.5 - 4.9 mg/dL) 3.7 Magnesium (1.8 - 2.4 mg/dL) 1.7 L 1.8 Total Bilirubin (0.0 - 1.0 mg/dL) 0.20 0.30 Direct Bilirubin (0.0 - 0.20 mg/dL) < 0.10 AST (15 - 37 IUnit/L) 11 L 17 ALT (12 - 78 IUnit/L) 8 L 9 L Total Alk Phosphatase (45 - 117 IUnit/L) 102 10 3 Troponin I (0 - 45 pg/mL) <4.0 Total Protein (6.4 - 8.2 gram/dL) 6.6 7.4 Albumin (3.4 - 5.0 g/dL) 3.1 L 3.4 Globulin (2.7 - 4.2 gram/dL) 3.5 4.0 Albumin/Globulin Ratio (0.75 - 1.50) 0.9 0.8 Lipase (12.00 - 57.00 U/L) 79 H Coagulation INR (0.8 - 1.2) 1.1 PTT (Ruth) (23.0 - 37.0 seconds) 22.4 L PT Patient/Control Mix (9.0 - 14.0 12.0 seconds) Hematology WBC (4.5 - 12.5 K/mm3) 8.4 7.6 RBC (3.7 - 5.2 mill/mm3) 3.81 4.08 Hgb (11.5 - 15.5 gram/dL) 11.4 L 12.4 Hct (36.0 - 46.0 %) 34.9 L 37.9 MCV (80 - 98 fL) 91.6 92.9 MCH (27.0 - 33.0 picogram) 29.9 30.4 MCHC (33.0 - 36.0 gram/dL) 32.7 L 32.7 L RDW (11.6 - 16.2 %) 13.3 13.3 RDW Std Deviation (37.0 - 51.0 fL) 45.1 Plt Count (150 - 450 K/mm3) 224 230 MPV (6.7 - 11.0 fL) 11.3 H 10.8 Neut % (Auto) (39.0 - 69.0 %) 66.4 Lymph % (Auto) (25.0 - 55.0 %) 25.4 [place] % (Auto) (0.0 - 10.0 %) 6.8 Eos % (Auto) (0.0 - 5.0 %) 0.6 Baso % (Auto) (0.0 - 1.0 %) 0.4 Neut # (Auto) (1.8 - 7.7 K/mm3) 5.56 Lymph # (Auto) (1.0 - 5.0 K/mm3) 2.13 [place] # (Auto) (0 - 0.8 K/mm3) 0.57 Eos # (Auto) (0.0 - 0.5 K/mm3) 0.05 Baso # (Auto) (0.0 - 0.2 K/mm3) 0.03 Nucleated RBC % (0 - 0 %) 0.0 Nucleated RBCs # (Man) (0.0 - 0.1 K/mm3) 0.00 Radiology data: Recent Impressions: RADIOLOGY - XR CHEST 1 V 04/277 Report Impression - Status: SIGNED Entered: 04/27/2022 2991 IMPRESSION: No acute finding given technical factors Impression By: Annel - Maryam farooq M.D. RADIOLOGY - XR CHEST 1 V 04/28 0601 Report Impression - Status: SIGNED Entered: 04/28/2022 0750 IMPRESSION: Lung base atelectasis Impression By: ValentineIBAbby Gibbons M.D. Results: labs reviewed Diagnosis, Assessment Plan Free Text DxA P Notes Free Text DxA P Notes: 1. Left-sided chest pain status post left heart cath performed 04/27/2022 in the evening, no intervention was needed, spoke w ith cardiology felt to be repolarization; continue with antiplatelet thera py, cardioprotective meds, statin, currently in ICU downgrade to medical te lemetry floor 2. Uncontrolled hypertension resume same antihyp ertensive medications, adjust accordingly, IV as needed hydralazine 3. Type 2 diabetes sliding scale, Accu-Cheks, A1 c 4. Hyperlipidemia oral statin 5. Nutrition diabetic diet 6. Physical therapy and Occupational Therapy 7. Lovenox for DVT prophylaxis Consultants: Cardiology, pulmonary critical care Electronically Signed by Kari Groves MD on at 1100 RPT #:[id number] END OF REPORT 2022-04-28 10:31:00-00:00 [facility] ([facility]) Cardiology Progress Note REPORT#:[id number] REPORT STATUS: Signed DATE:04/28/22 TIME: 1031 PATIENT: ARMEN LOPEZ UNIT #: [id number] ROOM/BED: [address] : 48 AGE: 71 SEX: F ATTEND: Kari Groves MD ADM AUTHOR: German Stephens MD * ALL edits or amendments must be made on the Jobin[employer]/computer document * Subjective Chief complaint: Syncope/Chest Pain HPI: 71 yo with chest pain and sy ncope Inital ECG demonstrated possible STEMI and the laboratory monitor was activated by the ER Cath co mpleted demonstrating Mild to Moderate Nonobstructive disease Patient reports: Yes: fatigue. Nursing reports: Yes: fatigue. Objective General VS/I O: 24 hour I O ending at 0700: 04/28 0700 04/27 1900 Intake Total 500.00 Output Total 200 Balance 300.00 Intake, IV 500.00 Number 1 Bowel Movements Number 1 Incontinent Voids Output, Urine 200 Patient 73.6 kg Weight Weight Bed scale Measurement Method Vital Signs: Date Time Temp Pulse Resp B/P B/P Pulse O2 O2 F low FiO2 Mean Ox Delivery Rate 04/28 08 36.9 Nasal 2 cannula 04/28 0800 Nasal 2 cannula 04/28 0800 89 25 156/76 109 100 04/28 0700 88 26 148/80 108 100 04/28 0600 87 14 140/69 97 100 04/28 0500 88 20 150/75 104 100 04/28 0400 36.8 84 21 133/62 89 100 Nasal 3 cannula 04/28 0400 84 21 133/62 89 100 04/28 0300 86 17 139/70 96 100 04/28 0230 85 23 146/65 93 100 04/28 0216 Nasal 3 cannula 04/28 0200 84 24 145/71 100 100 04/28 0130 82 23 134/66 89 100 04/28 0115 85 25 150/75 103 100 04/27 2320 18 04/27 2319 95 04/27 2259 84 17 108/63 78 96 Room air PATIENT WEIGHT: Weight (lb): 162 Weight (oz): 4.16 Weight (kg): 73.600 Medications: Active Meds + DC'd Last 24 Hrs Atorvastatin Calcium (LIPITOR 40MG TAB) 40 MG BE DTIME PO Miscellaneous Information (PHARMACY TO DOSE/EVAL UATE) 1 EACH ASDIR MISC Aspirin (ECOTRIN) 81 MG DAILY PO Mupirocin (BACTROBAN 2% OINTMENT) 1 APPLIC BID N NARENDRA (DC) Mupirocin (BACTROBAN 2% OINTMENT) 1 APPLIC BID N NARENDRA Senna/Docusate Sodium (SENNA-S 50 MG/8.6 MG TABL ET) 1 TAB BID PO Insulin Human Lispro (HUMALOG) S/SCALE MED AC HS SUBQ Magnesium Sulfate (MAGNESIUM 2G/50 ML WATER) 50 ML ONCE ONE IV (DC) Influenza Virus Vaccine (FLUZONE HIGH-DOSE QUAD ) 240 MCG ASDIR IM Dextrose/Water (DEXTROSE 50%-WATER) 50 ML ASDIR PRN IV (CKD) Ondansetron HCl (ondansetron HCL) 4 MG Q6H PRN P RN IV Sodium Chloride (SODIUM CHLORIDE 0.9%) 1,000 ML .[id number] IV Midazolam HCl (VERSED) 0 .STK-MED ONE .ROUTE (DC r) Nitroglycerin/Dextrose (NITROGLYCERIN 50MG/ D5 2 50ML) 250 ML .STK-MED ONE IV (DC) Fentanyl Citrate (SUBLIMAZE INJ. 2ML) 0 .STK-MED ONE .ROUTE (DC) Dextrose/Water (DEXTROSE 50%-WATER) 50 ML ASDIR PRN IV (DC) Heparin Sodium (HEPARIN SODIUM in 0.9% NACL) 1,5 00 ML .STK-MED ONE IV ( DC) Iopamidol (ISOVUE-370) 0 .STK-MED ONE .ROUTE (DC ) Lidocaine HCl (LIDOCAINE HCL 2%) 0 .STK-MED ONE .ROUTE (DC) Physical Exam General appearance: awake, no acute distress Head/Eyes: atraumatic, clear cornea, EOMI, normo cephalic Cardiovascular: CV assessment: regular rate and rhythm, no ecto py, no gallop, no murmur Respiratory: clear to auscultation, no distress Abdomen: soft, non-tender, no distention, no gua rding Lower extremity: LE assessment: no clubbing, no cyanosis, no pancho ma Neuro/BRICKMASON: alert, oriented X 3, normal speech, n o motor deficits Results Findings/Data: Laboratory Tests 04/28 04/28 04/28 04/28 04/27 0722 0556 0420 0420 2308 Chemistry Sodium (136 - 145 mmol/L) 138 136 Potassium (3.5 - 5.1 mmol/L) 4.5 4.6 Chloride (98 - 107 mmol/L) 106.0 105.0 Carbon Dioxide (21 - 32 mmol/L) 19.0 L 17.0 L Anion Gap (10 - 20) 17.5 18.6 BUN (7 - 18 mg/dL) 38 H 37 H Creatinine (0.55 - 1.02 mg/dL) 1.60 H 1.50 H Glomerular Filtr Rate (>=60 mL/min) 34 37 BUN/Creatinine Ratio (10 - 20) 24.2 H 24.8 H Glucose (74 - 106 mg/dL) 334 H 298 H POC Glucose (74 - 106 mg/dL) 230 H Hemoglobin A1c (% HbA1) 8.4 Estim Average Glucose (MG/DL) 194 Calcium (8.5 - 10.1 mg/dL) 8.4 L 9.0 Ionized Calcium Obed (1.12 - 1.32 mmol/L) 1.19 Phosphorus (2.5 - 4.9 mg/dL) 3.7 Magnesium (1.8 - 2.4 mg/dL) 1.7 L 1.8 Total Bilirubin (0.0 - 1.0 mg/dL) 0.20 0.30 Direct Bilirubin (0.0 - 0.20 mg/dL) < 0.10 AST (15 - 37 IUnit/L) 11 L 17 ALT (12 - 78 IUnit/L) 8 L 9 L Total Alk Phosphatase (45 - 117 IUnit/L) 102 10 3 Troponin I (0 - 45 pg/mL) <4.0 Total Protein (6.4 - 8.2 gram/dL) 6.6 7.4 Albumin (3.4 - 5.0 g/dL) 3.1 L 3.4 Globulin (2.7 - 4.2 gram/dL) 3.5 4.0 Albumin/Globulin Ratio (0.75 - 1.50) 0.9 0.8 Lipase (12.00 - 57.00 U/L) 79 H Laboratory Tests 04/27 2308 Coagulation INR (0.8 - 1.2) 1.1 PTT ([place]) (23.0 - 37.0 seconds) 22.4 L PT Patient/Control Mix (9.0 - 14.0 seconds) 12. 0 Laboratory Tests 04/28 04/27 0420 2308 Hematology WBC (4.5 - 12.5 K/mm3) 8.4 7.6 RBC (3.7 - 5.2 mill/mm3) 3.81 4.08 Hgb (11.5 - 15.5 gram/dL) 11.4 L 12.4 Hct (36.0 - 46.0 %) 34.9 L 37.9 MCV (80 - 98 fL) 91.6 92.9 MCH (27.0 - 33.0 picogram) 29.9 30.4 MCHC (33.0 - 36.0 gram/dL) 32.7 L 32.7 L RDW (11.6 - 16.2 %) 13.3 13.3 RDW Std Deviation (37.0 - 51.0 fL) 45.1 Plt Count (150 - 450 K/mm3) 224 230 MPV (6.7 - 11.0 fL) 11.3 H 10.8 Neut % (Auto) (39.0 - 69.0 %) 66.4 Lymph % (Auto) (25.0 - 55.0 %) 25.4 [place] % (Auto) (0.0 - 10.0 %) 6.8 Eos % (Auto) (0.0 - 5.0 %) 0.6 Baso % (Auto) (0.0 - 1.0 %) 0.4 Neut # (Auto) (1.8 - 7.7 K/mm3) 5.56 Lymph # (Auto) (1.0 - 5.0 K/mm3) 2.13 [place] # (Auto) (0 - 0.8 K/mm3) 0.57 Eos # (Auto) (0.0 - 0.5 K/mm3) 0.05 Baso # (Auto) (0.0 - 0.2 K/mm3) 0.03 Nucleated RBC % (0 - 0 %) 0.0 Nucleated RBCs # (Man) (0.0 - 0.1 K/mm3) 0.00 Laboratory Tests 04/28 04/27 0420 2308 Chemistry Magnesium (1.8 - 2.4 mg/dL) 1.7 L 1.8 Troponin I (0 - 45 pg/mL) <4.0 Radiology data: Recent Impressions: RADIOLOGY - XR CHEST 1 V 04/27 2306 Report Impression - Status: SIGNED Entered: 04/27/2022 2334 IMPRESSION: No acute finding given technical factors Impression By: [email or web address] - Maryam farooq M.D. RADIOLOGY - XR CHEST 1 V 04/28 0601 Report Impression - Status: SIGNED Entered: 04/28/2022 0750 IMPRESSION: Lung base atelectasis Impression By: [email or web address] - Tamir Gibbons M.D. Telemetry Interpretation: Sinus Diagnosis, Assessment Plan Problem List/A P: 1. 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 Syncope and collapse Free Text DxA P Notes Free Text DxA P Notes: 71 yo with chest pain and sy ncope Inital ECG demonstrated possible STEMT and the laboratory monitor was activated by the ER Cath co mpleted demonstrating Mild to Moderate Nonobstructive disease Plan 1. Moniter on Telemetery 2. Start Aspirin and Lipitor for 40% stenosis in Mid LAD 3, Start Betablockers for blood pressure Electronically Signed by German Stephens MD on at 1033 RPT #:[id number] END OF REPORT 2022-04-28 00:21:00-00:00 [facility] ([facility]) Critical Care Consult Note REPORT#:[id number] REPORT STATUS: Signed DATE:04/28/22 TIME: 20 PATIENT: ARMEN LOPEZ UNIT #: [id number] ROOM/BED: [address] : 48 AGE: 71 SEX: F ATTEND: Kari Groves MD ADM AUTHOR: Sophie Torres CARD LACER JACQUARD * ALL edits or amendments must be made on the Jobin[employer]/computer document * History of Present Illness HPI Requesting clinician: Dr. Stephens Reason for consult: CODE STEMI Chief complaint: CHEST PAIN PCP: PCP: No Primary or Family Physician HPI: 71-year-old female with PMH DM, HTN, HLD who was brought in by family for evaluation of left sided chest pain and syncopal episode. Per reports, EMS EKG shows ST elevation in inferior leads with modera tely large Q waves. Also some mild ST elevation in the lateral leads without s ignificant Q waves. No clear reciprocal changes. Code STEMI called prior to p atient arrival. Patient received 324 mg ASA and 1 spray of nitro in rout e. Initial blood pressure for EMS was in the 220s. After 1 spray of ni tro, blood pressure dropped to the low 100s systolic. Pain did improve after ni tro. Patient continues with mild left- sided chest pain. wharf labourer w as activated by the ER, Cath completed demonstrating Mild to Moderate Nonobstruct jojo disease. Per cardiology, will medically manage. Admitted to ICU for observation. History - Adult longitudinal Past medical history: Reports: Diabetes mellitus, Hypertension, Dyslip idemia. Past surgical history: Reports: Hysterectomy. Family history: Reports: Diabetes, Hypertension. Alcohol use: Denies EtOH use Drug use: Denies recreational drugs Smoking status for patients 13 years old or olde r: Never Smoker Allergies: Coded Allergies: No Known Allergies (05/21/14) Review of Systems ROS Constitutional: Reports: generalized weakness. Cardiovascular: Denies: chest pain. All systems rev neg: except as marked Objective Physical Exam VS/I O: Last Documented: Result Date Time Pulse Ox 100 04/28 230 B/P 146/65 04/28 230 B/P Mean 93 04/28 230 Pulse 85 04/28 230 Resp 23 04/28 230 O2 Delivery Nasal cannula 04/28 216 O2 Flow Rate 3 04/28 216 24 hour I O ending at 0700: 04/28 0700 04/27 1900 Intake Total Output Total Balance Patient 73.6 kg Weight Weight Bed scale Measurement Method Patient Weight and BMI Weight (kg): 73.600 BMI: 29.7 General appearance: alert, awake, oriented, no a cute distress Head/Eyes: atraumatic, clear cornea, normal conjunctiva/sclera, normal eyelids/ periorb. ENT: normal ear left, normal ear right, normal n ose Neck: full range of motion, no JVD, no masses or swelling Cardiovascular: normal capil harley refill, regular rate and rhythm, normal S1/S2, no ectopy Respiratory: aerating well, clear to auscultatio n, symmetric expansion, no distress Abdomen: soft, non-tender Genitourinary: no bladder distention Extremities: no clubbing, no cyanosis, no edema Musculoskeletal: normal inspection, no muscle sp asm Neuro/BRICKMASON: alert, oriented X 3 Skin: dry, normal color, normal temperature Psychiatry: normal affect, normal mood Results Findings/Data: Laboratory Tests 04/28/22 0420: [Embedded Image Not Available] 04/27/228: [Embedded Image Not Available] Laboratory Tests 04/28 04/28 04/28 04/27 0556 0420 0420 2308 Chemistry Sodium (136 - 145 mmol/L) 138 136 Potassium (3.5 - 5.1 mmol/L) 4.5 4.6 Chloride (98 - 107 mmol/L) 106.0 105.0 Carbon Dioxide (21 - 32 mmol/L) 19.0 L 17.0 L Anion Gap (10 - 20) 17.5 18.6 BUN (7 - 18 mg/dL) 38 H 37 H Creatinine (0.55 - 1.02 mg/dL) 1.60 H 1.50 H Glomerular Filtr Rate (>=60 mL/min) 34 37 BUN/Creatinine Ratio (10 - 20) 24.2 H 24.8 H Glucose (74 - 106 mg/dL) 334 H 298 H Hemoglobin A1c (% HbA1) 8.4 Estim Average Glucose (MG/DL) 194 Calcium (8.5 - 10.1 mg/dL) 8.4 L 9.0 Ionized Calcium Obed (1.12 - 1.32 mmol/L) 1.19 Phosphorus (2.5 - 4.9 mg/dL) 3.7 Magnesium (1.8 - 2.4 mg/dL) 1.7 L 1.8 Total Bilirubin (0.0 - 1.0 mg/dL) 0.20 0.30 Direct Bilirubin (0.0 - 0.20 mg/dL) < 0.10 AST (15 - 37 IUnit/L) 11 L 17 ALT (12 - 78 IUnit/L) 8 L 9 L Total Alk Phosphatase (45 - 117 IUnit/L) 102 10 3 Troponin I (0 - 45 pg/mL) <4.0 Total Protein (6.4 - 8.2 gram/dL) 6.6 7.4 Albumin (3.4 - 5.0 g/dL) 3.1 L 3.4 Globulin (2.7 - 4.2 gram/dL) 3.5 4.0 Albumin/Globulin Ratio (0.75 - 1.50) 0.9 0.8 Lipase (12.00 - 57.00 U/L) 79 H Laboratory Tests 04/27 2308 Coagulation INR (0.8 - 1.2) 1.1 PTT ([place]) (23.0 - 37.0 seconds) 22.4 L PT Patient/Control Mix (9.0 - 14.0 seconds) 12 .0 Laboratory Tests 04/28 04/27 0420 2308 Hematology WBC (4.5 - 12.5 K/mm3) 8.4 7.6 RBC (3.7 - 5.2 mill/mm3) 3.81 4.08 Hgb (11.5 - 15.5 gram/dL) 11.4 L 12.4 Hct (36.0 - 46.0 %) 34.9 L 37.9 MCV (80 - 98 fL) 91.6 92.9 MCH (27.0 - 33.0 picogram) 29.9 30.4 MCHC (33.0 - 36.0 gram/dL) 32.7 L 32.7 L RDW (11.6 - 16.2 %) 13.3 13.3 RDW Std Deviation (37.0 - 51.0 fL) 45.1 Plt Count (150 - 450 K/mm3) 224 230 MPV (6.7 - 11.0 fL) 11.3 H 10.8 Neut % (Auto) (39.0 - 69.0 %) 66.4 Lymph % (Auto) (25.0 - 55.0 %) 25.4 [place] % (Auto) (0.0 - 10.0 %) 6.8 Eos % (Auto) (0.0 - 5.0 %) 0.6 Baso % (Auto) (0.0 - 1.0 %) 0.4 Neut # (Auto) (1.8 - 7.7 K/mm3) 5.56 Lymph # (Auto) (1.0 - 5.0 K/mm3) 2.13 [place] # (Auto) (0 - 0.8 K/mm3) 0.57 Eos # (Auto) (0.0 - 0.5 K/mm3) 0.05 Baso # (Auto) (0.0 - 0.2 K/mm3) 0.03 Nucleated RBC % (0 - 0 %) 0.0 Nucleated RBCs # (Man) (0.0 - 0.1 K/mm3) 0.00 Radiology data: Recent Impressions: RADIOLOGY - XR CHEST 1 V 04/27 2306 Report Impression - Status: SIGNED Entered: 04/27/2022 4114 IMPRESSION: No acute finding given technical factors Impression By: Annel - Maryam farooq M.D. Diagnosis, Assessment Plan Free text DxA P: History of Present Illness: 71-year-old female with PMH DM, HTN, HLD who was brought in by family for evaluation of left sided chest pain and syncopal episode. Per reports, EMS EKG shows ST elevation in inferior leads with modera tely large Q waves. Also some mild ST elevation in the lateral leads without s ignificant Q waves. No clear reciprocal changes. Code STEMI called prior to p atient arrival. Patient received 324 mg ASA and 1 spray of nitro in rout e. Initial blood pressure for EMS was in the 220s. After 1 spray of ni tro, blood pressure dropped to the low 100s systolic. Pain did improve after ni tro. Patient continues with mild left- sided chest pain. wharf labourer w as activated by the ER, Cath completed demonstrating Mild to Moderate Nonobstruct jojo disease. Per cardiology, will medically manage. Admitted to ICU for observation. Hospital Course: 04/28/22 - Admitted to ICU s/p laboratory monitor with Mil d to Moderate Nonobstructive disease. Per cardiology, will medically manage. Active Problems: Acute STEMI - EMS EKG shows ST elevation in inferior leads w ith moderately large Q waves - Code STEMI called prior to patient arrival. - cardiology following - Cath completed demonstrating Mild to Moderate Nonobstructive disease - follow post cath orders - ASA, statin per cardiology - check HgbA1C and Lipid profile - STAT Echo pending Acute kidney injury Electrolyte and fluid imbalance - Trend Cr and follow UOP - Replete electrolytes per protocol Co-morbidities:DM, HTN, HLD ICU Patient Safety Checklist: - Diet: Cardiac - Bowel regimen: Senna Colace - Glucose:ACHS - Antibiotics: - Home meds resumed: yes except - Ulcer prophylaxis (discontinue if on diet): - DVT prophylaxis: SCD - [place]: - Lines: PIV - Wounds or pressure ulcer present on admission: TBD - Next of kin: - Code status: Full code - Disposition: ICU Critical care time: 45 minutes, excluding proced ures, was spent directly evaluating the patient at the bedside, i nterpreting labs and imaging, ordering new labs and medications, an d discussing the case with the ICU multidisciplinary team, consultants and admitting teams. at 0618 Electronically Signed by Sherrie Nunez MD on 1 07/20/21 at 1315 RPT #:[id number] END OF REPORT 2022-04-28 00:02:00-00:00 [facility] ([facility]) Cardiology Consultation REPORT#:[id number] REPORT STATUS: Signed DATE:04/28/22 TIME: 0002 PATIENT: ARMEN LOPEZ UNIT #: [id number] ROOM/BED: [facility] : 48 AGE: 71 SEX: F ATTEND: Kari Groves MD ADM AUTHOR: German Stephens MD * ALL edits or amendments must be made on the Jobin[employer]/computer document * History of Present Illness HPI Requesting Clinician: Dr Groves Reason for consult: Syncope/Chest Pain Chief complaint: Syncope/Chest Pain HPI: 71 yo with chest pain and sy ncope Inital ECG demonstrated possible STEMT and the laboratory monitor was activated by the Cath co mpleted demonstrating Mild to Moderate Nonobstructive disease History - Adult longitudinal Past medical history: Reports: Diabetes mellitus, Hypertension, Dyslip idemia. Past surgical history: Reports: Hysterectomy. Family history: Reports: Diabetes, Hypertension. Alcohol use: Denies EtOH use Drug use: Denies recreational drugs Smoking status for patients 13 years old or olde r: Never Smoker Home medications: Home Medications: levoFLOXacin (LEVAQUIN) 500 MG PO DAILY metFORMIN (GLUCOPHAGE) 500 MG PO BID Allergies: Coded Allergies: No Known Allergies (05/21/14) Review of Systems Constitutional: Denies: chills, fever. Respiratory: Denies: hemoptysis, SOB. Cardiovascular: Reports: chest pain. GI: Denies: abdominal pain, diarrhea, dysphagia, hem atemesis, hematochezia. Objective General VS/I O: Vital Signs: Date Time Temp Pulse Resp B/P B/P Pulse O2 O2 F low FiO2 Mean Ox Delivery Rate 04/27 2320 18 04/27 2319 95 04/27 2259 84 17 108/63 78 96 Room air 24 hour I O ending at 0700: 04/28 0700 04/27 1900 Intake Total Output Total Balance Patient 75 kg Weight Weight Estimated Measurement Method PATIENT WEIGHT: Weight (lb): Weight (oz): Weight (kg): 75.000 Medications: Active Meds + DC'd Last 24 Hrs Mupirocin (BACTROBAN 2% OINTMENT) 1 APPLIC BID N NARENDRA Insulin Human Lispro (HUMALOG) S/SCALE MED AC HS SUBQ Midazolam HCl (VERSED) 0 .STK-MED ONE .ROUTE (DC r) Nitroglycerin/Dextrose (NITROGLYCERIN 50MG/ D5 2 50ML) 250 ML .STK-MED ONE IV (DC) Fentanyl Citrate (SUBLIMAZE INJ. 2ML) 0 .STK-MED ONE .ROUTE (DC) Dextrose/Water (DEXTROSE 50%-WATER) 50 ML ASDIR PRN IV (CKD) Heparin Sodium (HEPARIN SODIUM in 0.9% NACL) 1,5 00 ML .STK-MED ONE IV ( DC) Iopamidol (ISOVUE-370) 0 .STK-MED ONE .ROUTE (DC ) Lidocaine HCl (LIDOCAINE HCL 2%) 0 .STK-MED ONE .ROUTE (DC) Physical Exam General appearance: alert, awake, no acute distr ess Head/Eyes: atraumatic, clear cornea, EOMI, normo cephalic Cardiovascular: CV assessment: regular rate and rhythm, no ecto py, no gallop, no murmur Respiratory: clear to auscultation, no distress Abdomen: soft, non-tender, no distention, no gua rding Lower extremity: LE assessment: no clubbing, no cyanosis, no pancho ma Neuro/BRICKMASON: alert, oriented X 3, normal speech, n o motor deficits Results Findings/Data: Laboratory Tests 04/27 2308 Chemistry Sodium (136 - 145 mmol/L) 136 Potassium (3.5 - 5.1 mmol/L) 4.6 Chloride (98 - 107 mmol/L) 105.0 Carbon Dioxide (21 - 32 mmol/L) 17.0 L Anion Gap (10 - 20) 18.6 BUN (7 - 18 mg/dL) 37 H Creatinine (0.55 - 1.02 mg/dL) 1.50 H Glomerular Filtr Rate (>=60 mL/min) 37 BUN/Creatinine Ratio (10 - 20) 24.8 H Glucose (74 - 106 mg/dL) 298 H Calcium (8.5 - 10.1 mg/dL) 9.0 Magnesium (1.8 - 2.4 mg/dL) 1.8 Total Bilirubin (0.0 - 1.0 mg/dL) 0.30 Direct Bilirubin (0.0 - 0.20 mg/dL) < 0.10 AST (15 - 37 IUnit/L) 17 ALT (12 - 78 IUnit/L) 9 L Total Alk Phosphatase (45 - 117 IUnit/L) 103 Troponin I (0 - 45 pg/mL) <4.0 Total Protein (6.4 - 8.2 gram/dL) 7.4 Albumin (3.4 - 5.0 g/dL) 3.4 Globulin (2.7 - 4.2 gram/dL) 4.0 Albumin/Globulin Ratio (0.75 - 1.50) 0.8 Lipase (12.00 - 57.00 U/L) 79 H Laboratory Tests 04/278 Coagulation INR (0.8 - 1.2) 1.1 PTT ([place]) (23.0 - 37.0 seconds) 22.4 L PT Patient/Control Mix (9.0 - 14.0 seconds) 12. 0 Laboratory Tests 04/278 Hematology WBC (4.5 - 12.5 K/mm3) 7.6 RBC (3.7 - 5.2 mill/mm3) 4.08 Hgb (11.5 - 15.5 gram/dL) 12.4 Hct (36.0 - 46.0 %) 37.9 MCV (80 - 98 fL) 92.9 MCH (27.0 - 33.0 picogram) 30.4 MCHC (33.0 - 36.0 gram/dL) 32.7 L RDW (11.6 - 16.2 %) 13.3 Plt Count (150 - 450 K/mm3) 230 MPV (6.7 - 11.0 fL) 10.8 Laboratory Tests 04/278 Chemistry Magnesium (1.8 - 2.4 mg/dL) 1.8 Troponin I (0 - 45 pg/mL) <4.0 Radiology Data: Recent Impressions: RADIOLOGY - XR CHEST 1 V 04/27 2306 Report Impression - Status: SIGNED Entered: 04/27/2022 4390 IMPRESSION: No acute finding given technical factors Impression By: Annel - Maryam farooq M.D. EKG Interpretation: NSR Early Repolarization Diagnosis, Assessment Plan Problem List/A P: 1. 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 Syncope and collapse Free Text DxA P Notes Free Text DxA P Notes: 71 yo with chest pain and sy ncope Inital ECG demonstrated possible STEMT and the laboratory monitor was activated by the ER Cath co mpleted demonstrating Mild to Moderate Nonobstructive disease Plan 1. Moniter on Telemetery 2. Start Aspirin and Lipitor for 40% stenosis in Mid LAD Electronically Signed by German Stephens MD on at 0007 RPT #:[id number] END OF REPORT 2022-04-28 00:01:00-00:00 [id number] [facility] PATIENT NAME: ARMEN LOPEZ ADMIT DATE: 04/27 ACCOUNT NO: [id number] ROOM NO: [facility] AGE: 71 REPORT TYPE: OPERATIVE REPORT SEX: F DATE OF : 46 ADMITTING PHYSICIAN:Kari Groves MD ATTENDING PHYSICIAN:Kari Groves MD OPERATION DATE: 04/27/2022 PROCEDURE: Left heart catheterization. PREOPERATIVE DIAGNOSIS: Coronary artery disease. POSTOPERATIVE DIAGNOSIS: Coronary artery disease . SAFETY ANALYST: German Stephens MD BODY LINER: None. COMPLICATIONS: None. ANESTHESIA: Conscious sedation. TECHNIQUE: The right groin was draped and preppe d in the usual fashion. The area was anesthetized with lidocaine. St andard Seldinger technique was used to place a 6-[place] sheath into the right femoral artery without difficulty. A JL4 catheter was used to selectively engage the left coronary artery. A 3DRC catheter was used to selectively engage the righ t coronary artery. A pigtail catheter was used to cross the aortic va lve and perform a left ventriculogram. A Mynx device was used for closure. There were n o complications. Results are as follows: 1. There is a normal left main trunk. 2. There is a large left anterior descending art bekah, which gave rise to a medium size diagonal branch. There was 40% cylin drical narrowing in the mid left anterior descending artery. 3. There was a medium size AV circumflex artery, which gave rise to large bifurcating obtuse marginal branch. There was minimal disease in the circumflex system. 4. There was a large dominant right coronary art bekah with minimal disease. 5. There was normal left ventricular size and fu nction with an ejection fraction of 60%. CONCLUSION: The patient has some mild nonobstruc tive coronary artery disease with no hemodynamically significant stenosis. Dictated By: German Stephens MD Date Dictated: 04/28/2022 00:01:45 Date Transcribed: 04/28/2022 00:12:44 [facility] PATIENT NAME: ARMEN LOPEZ [id number] Receipt ID: [id number] Authenticated by German Stephens MD On 04/28/2022 12:01:47 PM Electronically Signed by German Stephens MD on at 1201 PATIENT NAME: ARMEN LOPEZ [id number] 2022-04-27 23:16:00-00:00 [facility] ([facility]) EMERGENCY PROVIDER REPORT REPORT#:[id number] REPORT STATUS: Signed DATE:04/27/22 TIME: 2315 PATIENT: ARMEN LOPEZ UNIT #: [id number] ROOM/BED: [address] AGE: 71 SEX: F PCP PHYS: No Primary or Family Ph ysician SERVICE AUTHOR: Usha Ramachandran MD * ALL edits or amendments must be made on the Jobinasecond/computer document * HPI-Chest Pain 40 and Over General Initial Greet Date/Time 04/27/22 2300 Presentation Chief Complaint Chest pain, Diaphoresis Sudden in Onset? Yes )( Migration/Movement None Free Text HPI Notes Free Text HPI Notes Patient is a 71-year-old female with PMH DM, HTN , HLD who presents with an apparent STEMI. Family reports patient w as at home, had sudden onset of severe left-sided chest pain. She had a syncopal episod e and then became profusely diaphoretic. Patient with nausea but no vomiting . Some shortness of breath. Denies similar symptoms previously. EMS EKG show s ST elevation in inferior leads with moderately large Q waves. Also some mild ST elevation in the lateral leads without significant Q waves. No clear reci procal changes. Code STEMI called prior to patient arrival. Patient receive d 324 mg ASA and 1 spray of nitro in route. Initial blood pressure for EMS w as in the 220s. After 1 spray of nitro, blood pressure dropped to the low 100s systolic. Pain did improve after nitro. Patient continues with mild left-si ded chest pain. Not currently diaphoretic. Risk-Chest Pain 40 and Over Risk Stratification )( Coronary Artery Disease Risk factors reviewed )( Thoracic Aortic Dissection Risk factors revie wed )( Pulmonary Embolism Risk factors reviewed )( AMI-Aspirin Aspirin Last 24 Hrs 324 mg, By EMS )( HEART for MACE )( HEART for MACE Response Value History High index of suspicion 2 ECG Interpretation Nonspec repol disturb 1 Age Age 65 or over 2 Risk Factors for CAD 3+ CAD risk factors 2 Total 7 Review of Systems ROS Statements All systems rev neg except as marked. Free Text ROS Notes Free Text ROS Notes Constitutional: No fever or chills Respiratory: No cough or shortness of breath Cardiovascular: No palpitations Neurologic: No headache, focal deficits or weakn ess Chronic conditions/symptoms are consider ed negative if unchanged from baseline Additional positives and negatives may be presen t in the HPI Past Medical History - Adult Stated Complaint CHEST PAIN Allergies Coded Allergies: No Known Allergies (05/21/14) Home Medications Reported Medications metFORMIN (GLUCOPHAGE) 500 MG PO BID Past Medical History: Reports: Diabetes mellitus, Hypertension, Dyslip idemia. Past Surgical History: Reports: Hysterectomy. Alcohol Use Denies EtOH use Drug Use Denies recreational drugs Smoking status for patients 13 years old or olde r: Never Smoker Physical Exam Vital Signs Vital Signs First Documented: Result Date Time Pulse Ox 96 04/279 B/P 108/63 04/27 2259 B/P Mean 78 04/279 O2 Delivery Room air 04/27 2259 Pulse 84 04/27 2259 Resp 17 04/27 2259 Last Documented: Result Date Time Resp 18 04/27 2320 Pulse Ox 95 04/27 2319 B/P 108/63 04/279 B/P Mean 78 04/27 2259 O2 Delivery Room air 04/27 2259 Pulse 84 04/27 2259 Review of Vital Signs Reviewed Free Text PE Notes Free Text PE Notes GEN: Awake, alert. No acute distress. Well-appea ring. Cooperative. HEAD: Atraumatic. Normocephalic. EYES: PERRL. EOMI. No nystagmus. No photophobia. ENT: Airway patent. MMM. Normal pharynx. NECK: Atraumatic. No meningismus. FROM. Nontende r. RESP/CHEST: Breath sounds normal. No respiratory distress. No chest tenderness. CV: RRR. Heart sounds normal. Normal cap refill. ABD/GI: Soft, nontender. BS normoactive. No palp able mass. SKIN: WDI. Normal color. No rash. NEURO: Oriented x3. Clear speech. CN II - XII gr ossly intact. BACK: Atraumatic. Nontender. PSYCH: Mood and affect normal. Interpretation Diagnostics Lab Results Interpretation Results Laboratory Tests 04/27/222307: [Embedded Image Not Available] Laboratory Tests: 04/27 2308 Chemistry Sodium (136 - 145 mmol/L) 136 Potassium (3.5 - 5.1 mmol/L) 4.6 Chloride (98 - 107 mmol/L) 105.0 Carbon Dioxide (21 - 32 mmol/L) 17.0 L Anion Gap (10 - 20) 18.6 BUN (7 - 18 mg/dL) 37 H Creatinine (0.55 - 1.02 mg/dL) 1.50 H Glomerular Filtr Rate (>=60 mL/min) 37 BUN/Creatinine Ratio (10 - 20) 24.8 H Glucose (74 - 106 mg/dL) 298 H Calcium (8.5 - 10.1 mg/dL) 9.0 Magnesium (1.8 - 2.4 mg/dL) 1.8 Total Bilirubin (0.0 - 1.0 mg/dL) 0.30 Direct Bilirubin (0.0 - 0.20 mg/dL) < 0.10 AST (15 - 37 IUnit/L) 17 ALT (12 - 78 IUnit/L) 9 L Total Alk Phosphatase (45 - 117 IUnit/L) 103 Troponin I (0 - 45 pg/mL) <4.0 Total Protein (6.4 - 8.2 gram/dL) 7.4 Albumin (3.4 - 5.0 g/dL) 3.4 Globulin (2.7 - 4.2 gram/dL) 4.0 Albumin/Globulin Ratio (0.75 - 1.50) 0.8 Lipase (12.00 - 57.00 U/L) 79 H Coagulation INR (0.8 - 1.2) 1.1 PTT (Ruth) (23.0 - 37.0 seconds) 22.4 L PT Patient/Control Mix (9.0 - 14.0 seconds) 12. 0 Hematology WBC (4.5 - 12.5 K/mm3) 7.6 RBC (3.7 - 5.2 mill/mm3) 4.08 Hgb (11.5 - 15.5 gram/dL) 12.4 Hct (36.0 - 46.0 %) 37.9 MCV (80 - 98 fL) 92.9 MCH (27.0 - 33.0 picogram) 30.4 MCHC (33.0 - 36.0 gram/dL) 32.7 L RDW (11.6 - 16.2 %) 13.3 Plt Count (150 - 450 K/mm3) 230 MPV (6.7 - 11.0 fL) 10.8 Recent Impressions: RADIOLOGY - XR CHEST 1 V 04/27 2306 Report Impression - Status: SIGNED Entered: 04/27/20222333 IMPRESSION: No acute finding given technical factors Impression By: Annel farooq M.D. Lab Imaging Statement Laboratory radiographic studies reviewed and con sidered in the medical decision-making. Point of Care Testing Pulse Oximetry Pulse Ox % 96 On: Room air Interpretation Interpreted by me, Pulse oximetr y normal ECG #1 Interpretation Date 04/27/22 Time 2258 Interpreted by and reviewed by me NL ECG Interpretation Normal rate (92), Normal sinus rhythm, No acute ischemic changes, No STEMI ECG Q-T-ST - VA Q waves inferior Re-Evaluation MDM ED Course Medication(s) Ordered Medication(s) Ordered: Blood Formation,Coagulation Sig/[place] Start time Last Medication Dose Route Stop Time Status Admin Heparin Sodium 1,500 ML .STK-MED ONE 04/27 2320 DC IV Cardiovascular Drugs Sig/[place] Start time Last Medication Dose Route Stop Time Status Admin Lidocaine HCl 0 .STK-MED ONE 04/27 2319 DC .ROUTE Diagnostic Agents Sig/[place] Start time Last Medication Dose Route Stop Time Status Admin Iopamidol 0 .STK-MED ONE 04/27 2320 DC .ROUTE Consultation Consultation Referral/Consult Name German Stephens MD [facility] Called Cardiology Requested Call Time 2300 Requested Call Date 04/27/22 Call Returned Call returned Call Returned Time 2300 Call Returned Date 04/27/22 [facility] Will see patient, Agrees with eval, Agrees with plan, Requested laboratory monitor Free Text Consult Notes Unable to reach Dr. Rodriguez Patient Discharge Departure Vital Signs/Condition Vital Signs First Documented: Result Date Time Pulse Ox 96 04/27 2259 B/P 108/63 04/27 2259 B/P Mean 78 04/27 2259 O2 Delivery Room air 04/27 2259 Pulse 84 04/27 2259 Resp 17 04/27 2259 Last Documented: Result Date Time Resp 04/27 Pulse Ox 95 04/27 2319 B/P 108/63 04/27 2259 B/P Mean 78 04/27 2259 O2 Delivery Room air 04/27 2259 Pulse 84 04/27 2259 All vital signs available at the time of this en try have been reviewed. Clinical Impression Clinical Impression Primary Impression: STEMI (ST elevation myocardi al infarction) Disposition Decision Admit Admit Physician Name Sruthi Christiansen MD Admit Physician Hospitalist Request Time 2321 Request Date 04/27/22 )( Admission Accepts Yes )( Accepted Time 2321 )( Accepted Date 04/27/22 Call Information will see patient, agrees with eval, agrees with plan Discharge/Care Plan (Auto) Prescriptions Current Visit Scripts ATORVASTATIN (LIPITOR) 40 MG PO BEDTIME 30 Days #30 TAB ASPIRIN EC (ECOTRIN) 81 MG PO DAILY 30 Days #30 TAB Ref 1 CARVEDILOL (COREG) 6.25 MG PO BID MEALS 30 Days #60 TABS sitaGLIPtin (JANUVIA) 25 MG PO C BK 30 Days #30 TABS Critical Care Time Spent (minutes): 30 Services Performed Patient management by Kwasi bui spent at bedside, Reviewing test results, Reviewing imaging, Discussing naila ent care, Documentation in record Separately billable procedures excluded from kwasi preston. at [address] [facility] #:[id number] END OF REPORT
[2023-01-11] MEDS ORDERED: CEFTRIAXONE 1000 MG/VIAL ONE (21:17)
[2023-01-11] MEDS ORDERED: ACETAMINOPHEN 500 MG TAB ONE (21:17)
[2023-01-11] MEDS ORDERED: NA CHLORIDE 0.9% 2,000 ML ONE (21:17)
[2023-01-11] MEDS ORDERED: NA CHLORIDE 0.9% 50 ML ONE (21:18)
[2023-01-11 21:29] LABS: Absolute Lymphocytes (CBC) 0.6 K/uL (0.7-4.9); Hematocrit 35.4 % (36.0-45.0); Lymphocytes % 4.2 % (15.3-44.8); MCV 89.9 fL (80-100); MPV 9.3 fL (7.6-11.3); Platelets 232 thou/uL (152-406); Protime INR 1.05; RBC Red Blood Cell Count 3.94 M/uL (3.86-4.86)
[2023-01-11 21:39] LABS: SARS-CoV-2 Antigen Rapid Res Negative (Negative)
[2023-01-11 21:40] LABS: Specific Gravity 1.014 (1.005-1.030); Urine Bacteria <20 /HPF (<20); Urine Bilirubin NEGATIVE (Negative); Urine Blood 1+ (Negative); Urine Clarity Extremely Turbid (Clear); Urine Color Light-Yellow (Yellow); Urine Crystals Unidentified Few /HPF (None Seen); Urine Glucose 3+ (Negative); Urine Mucus Slight /HPF (None Seen); Urine Protein 2+ (Negative); Urine RBC <5 /HPF (None Seen); Urine Urobilinogen Normal (Normal); Urine pH 5.5 (5.0-7.0)
--- NOTE | 2023-01-11 21:41 | RAD REPORT ---
EXAM DESCRIPTION: RADChest Single View01/11/2023 9:12 pm CLINICAL HISTORY: PAIN COMPARISON: Chest Single View dated 07/17/2022; Chest Single View dated 06/26/2022; Chest Single View dated 06/22/2022; Chest Single View dated 09/04/2021 TECHNIQUE: Portable AP view of the chest. FINDINGS: Right arm PICC has been removed. Decreased inspiratory effort limits evaluation. Central i nterstitial prominence, stable. The lungs are clear. No pneumothorax or effusion. The cardiomediastin al contours are unremarkable. IMPRESSION: Stable central interstitial prominence, could relate to bronchovascular crowding or mild central congestion No other acute cardiopulmonary process.
[2023-01-11 21:44] LABS: Albumin 3.4 g/dL (3.4-5.0); Bilirubin Direct 0.2 mg/dL (0-0.2); Bilirubin Indirect, Calculated 0.4 mg/dL (0.2-0.8); Bilirubin Total 0.6 mg/dL (0.2-1.0); Magnesium 1.7 mg/dL (1.6-2.4); Potassium 4.1 mEq/L (3.5-5.1); Protein, Total 7.8 g/dL (6.4-8.2); Troponin High Sensitivity 4.2 pg/mL (<58.9)
--- NOTE | 2023-01-11 21:52 | ER ---
Nurse's Notes [facility] Name: Kinga Singleton Age: 72 yrs Sex: Female : 1950 Arrival Date: 01/11/2023 Time: 20:04 Bed 15 Private MD: Diagnosis: Fever, unspecified;Vomiting;Obesity, unspecified;UTI/ Urinary tract infection, site not specified;Type 1 diabetes mellitus with hyperglycemia;Elevated white blood cell count;Pyelonephritis acute Presentation: 01/11 20:07 Chief complaint: EMS states: 72 year old female has have been having nausea and ha1 vomiting since yesterday. Reports pain on the left side of her back. 20:07 Coronavirus screen: Vaccine status: Patient reports receiving the 2nd dose of the covid ha1 vaccine. moderna. Ebola Screen: No symptoms or risks identified at this time. Initial Sepsis Screen: Does the patient meet any 2 criteria? RR > 20 per min. HR > 90 bpm. Yes Does the patient have a suspected source of infection? No. Patient's initial sepsis screen is negative. Risk Assessment: Do you want to hurt yourself or someone else? Patient reports no desire to harm self or others. 20:07 Method Of Arrival: EMS: [facility] ha1 20:07 Acuity: JITENDRA 3 ha1 20:07 Onset of symptoms was January 10, 2023. 1 Triage Assessment: 20:07 General: Appears uncomfortable, Behavior is calm, cooperative. Pain: Complains of pain ha1 in back Pain does not radiate. Pain currently is 6 out of 10 on a pain scale. Quality of pain is described as pressure. Neuro: Level of Consciousness is awake, alert, obeys commands, Oriented to person, place, time, situation. Cardiovascular: Patient's skin is warm and dry. Respiratory: Airway is patent Respiratory effort is even, unlabored, Respiratory pattern is regular, symmetrical. GI: Abdomen is round non-distended, Bowel sounds present X 4 quads. Abd is soft and non tender Reports nausea, vomiting. Derm: Skin is pink, warm \T\ dry. Musculoskeletal: Circulation, motion, and sensation intact. Range of motion: intact in all extremities. Historical: - Allergies: 20:27 No Known Allergies; ha1 - PMHx: 20:27 Diabetes - IDDM; Hypercholesterolemia; Hypertensive disorder; ha1 - PSHx: 20:27 Total abdominal hysterectomy; ha1 - Immunization history:: Adult Immunizations unknown. - Social history:: Smoking status: unknown. Screenin:07 [facility] ED Fall Risk Assessment (Adult) History of falling in the last 3 months, ha1 including since admission No falls in past 3 months (0 pts) Confusion or Disorientation No (0 pts) Intoxicated or Sedated No (0 pts) Impaired Gait No (0 pts) Mobility Assist Device Used No (0 pt) Altered Elimination No (0 pt) Score/Fall Risk Level 0 - 2 = Low Risk Oriented to surroundings, Maintained a safe environment, Educated pt \T\ family on fall prevention, incl call for assistance when getting out of bed. Abuse screen: Denies threats or abuse. Denies injuries from another. Nutritional screening: No deficits noted. Tuberculosis screening: No symptoms or risk factors identified. Assessment: 20:07 Reassessment: see triage assessment. ha1 21:05 Reassessment: Patient and/or family updated on plan of care and expected duration. Pain ha1 level reassessed. Patient is alert, oriented x 3, equal unlabored respirations, skin warm/dry/pink. 22:05 Reassessment: Patient and/or family updated on plan of care and expected duration. Pain ha1 level reassessed. Patient is alert, oriented x 3, equal unlabored respirations, skin warm/dry/pink. 23:00 Reassessment: Patient and/or family updated on plan of care and expected duration. Pain ha1 level reassessed. Patient is alert, oriented x 3, equal unlabored respirations, skin warm/dry/pink. 01/12 00:00 Reassessment: Patient and/or family updated on plan of care and expected duration. Pain ha1 level reassessed. Patient is alert, oriented x 3, equal unlabored respirations, skin warm/dry/pink. Vital Signs: 01/11 20:07 BP 139 / 72; Pulse 107; Resp 22 S; Temp 100.2; Pulse Ox 95% on R/A; Weight 73.94 kg; ha1 Pain 6/10; 21:15 BP 125 / 76; Pulse 94; Resp 20 S; Temp 98.5; Pulse Ox 97% on R/A; ha1 22:05 BP 126 / 66; Pulse 94; Resp 20 S; Temp 98.5; Pulse Ox 96% on R/A; ha1 23:00 BP 127 / 75; Pulse 93; Resp 20 S; Pulse Ox 97% on R/A; ha1 20:07 Pain Scale: Adult ha ED Course: 20:07 Patient arrived in ED. ha1 20:07 Patient has correct armband on for positive identification. Placed in gown. Bed in low ha1 position. Call light in reach. Side rails up X 1. 20:07 Arm band placed on right wrist. ha1 20:08 Murray Ponce MD is Attending Physician. [facility] 20:27 Triage completed. ha1 20:34 Sonja Ramirez, JACKELINE is Primary Nurse. ha1 21:14 Chest Single View In Process Unspecified. EDMS 21:26 Blood Culture Sent. ha1 21:26 Blood Culture Sent. ha1 21:26 Influenza Screen (A Sent. ha1 21:26 Lactate w/ 2H reflex if indic. Sent. ha1 21:26 SARS-COV-2 Antigen Rapid Sent. ha1 21:26 CBC with Automated Diff Sent. ha1 21:26 Protime (+INR) Sent. ha1 21:27 NT PRO-BNP Sent. ha1 21:27 Magnesium Sent. ha1 21:27 Lipase Sent. ha1 21:27 Basic Metabolic Panel Sent. ha1 21:27 Liver (Hepatic) Function Sent. ha1 21:27 Troponin High Sensitivity Sent. ha1 21:51 Lisa Tabor MD is Hospitalizing Provider. [facility] 22:02 Nathan Mehta MD is Hospitalizing Provider. [facility] 22:13 CT Chest, Abdomen, Pelvis - W/Contrast In Process Unspecified. EDDE 01/12 00:00 Provided Education on: need fro admit. ha1 00:02 No provider procedures requiring assistance completed. Patient admitted, IV remains in ha1 place. Administered Medications: 01/11 21:00 Drug: Acetaminophen PO 1000 mg Route: PO; ha1 22:20 Follow up: Response: No adverse reaction; Temperature is decreased ha1 21:27 Drug: NS 0.9% IV 1000 ml Route: IV; Rate: 125 ml/hr; Site: right antecubital; [facility] 01/12 00:00 Follow up: Response: No adverse reaction; IV Status: Infusion continued; IV Intake: ha1 450ml 01/11 21:27 Drug: Rocephin IV 1 grams Route: IV; Rate: bolus; Site: right antecubital; ha1 22:00 Follow up: Response: No adverse reaction; IV Status: Completed infusion; IV Intake: [id number] 21:28 Drug: NS 0.9% IV 1000 ml Route: IV; Rate: 1 bolus; Site: right antecubital; ha1 01/12 00:00 Follow up: Response: No adverse reaction; IV Status: Completed infusion; IV Intake: ha1 1000ml 01/11 22:23 Drug: NS 0.9% IV 1000 ml Route: IV; Rate: 1 bolus; Site: right antecubital; ha1 23:40 Follow up: Response: No adverse reaction; IV Status: Completed infusion; IV Intake: ha1 1000ml 23:45 Drug: Meropenem IV 1 grams Route: IV; Rate: per protocol; Site: right antecubital; ha1 Medication: 01/12 00:03 VIS not applicable for this client. ha1 Intake: 01/11 22:00 IV: 50ml; Total: 50ml. ha1 23:40 IV: 1000ml; Total: 1050ml. ha1 01/12 00:00 IV: 450ml; Total: 1500ml. ha1 00:00 IV: 1000ml; Total: 2500ml. ha1 Outcome: 01/11 21:52 Decision to Hospitalize by Provider. [facility] 01/12 00:02 Admitted to Med/surg accompanied by tech, via stretcher, room 219, Report called to Chaim Donato RN Condition: stable Discharge instructions given to patient, family, Instructed on the need for admit. 00:05 Patient left the ED. [facility] Signatures: Dispatcher [employer] EDDE Murray Ponce MD MD cha Ayala, Heidy, RN RN ha1 Corrections: (The following items were deleted from the chart) 01/11 22:37 20:07 BP 139 / 72; Pulse 107bpm; Resp 20bpm; Pulse Ox 95% RA; Temp 100.2F; 73.94 kg; ha1 Pain 6/10, Adult; ha1 01/12 02:16 00:20 Patient left the ED. ha1 ha1 02:45 01/11 23:00 Response: No adverse reaction; IV Status: Completed infusion; IV Intake: ha1 1000ml ha1
--- NOTE | 2023-01-11 21:52 | EDPHYS ---
Physician Documentation [facility] Name: Kinga Singleton Age: 72 yrs Sex: Female : 1950 Arrival Date: 01/11/2023 Time: 20:04 Bed 15 Private MD: OLVIN Physician Murray Ponce HPI: 01/11 20:57 This 72 yrs old Female presents to ER via EMS with complaints of left abd pain cr , nausea and vomiting. 20:57 The patient presents with abdominal pain in the left upper quadrant, abdominal cr distention in the upper abdomen, in the lower abdomen. Onset: The symptoms/episode began/occurred 1 day(s) ago. The patient presents to the emergency department with nausea, vomiting, abdominal pain, of the posterior aspect of left lateral abdomen, anterior aspect of left lateral abdomen and left upper quadrant. Onset: The symptoms/episode began/occurred 1 day(s) ago. Possible causes: unknown. The symptoms are aggravated by nothing. The symptoms are alleviated by nothing. fever , abd pain, vomiting and diarrhea. Associated signs and symptoms: Pertinent positives: abdominal pain, fever, nausea, vomiting. The symptoms do not radiate. Associated signs and symptoms: Pertinent positives: fever, nausea, vomiting. The symptoms are described as crampy. Modifying factors: The symptoms are alleviated by. The patient reports fever, that was measured at 101 degrees Fahrenheit. Severity of pain: At its worst the pain was moderate in the emergency department the pain is unchanged. Historical: - Allergies: 20:27 No Known Allergies; ha1 - PMHx: 20:27 Diabetes - IDDM; Hypercholesterolemia; Hypertensive disorder; ha1 - PSHx: 20:27 Total abdominal hysterectomy; ha1 - Immunization history:: Adult Immunizations unknown. - Social history:: Smoking status: unknown. ROS: 20:59 Constitutional: Negative for fever, chills, and weight loss, Eyes: Negative for injury, cr pain, redness, and discharge, ENT: Negative for injury, pain, and discharge, Neck: Negative for injury, pain, and swelling, Cardiovascular: Negative for chest pain, palpitations, and edema, Respiratory: Negative for shortness of breath, cough, wheezing, and pleuritic chest pain, Back: Negative for injury and pain, : Negative for injury, bleeding, discharge, and swelling, MS/Extremity: Negative for injury and deformity, Skin: Negative for injury, rash, and discoloration, Neuro: Negative for headache, weakness, numbness, tingling, and seizure, Psych: Negative for depression, anxiety, suicide ideation, homicidal ideation, and hallucinations, Allergy/Immunology: Negative for hives, rash, and allergies, Endocrine: Negative for neck swelling, polydipsia, polyuria, polyphagia, and marked weight changes, Hematologic/Lymphatic: Negative for swollen nodes, abnormal bleeding, and unusual bruising. 20:59 Abdomen/GI: Positive for abdominal pain, nausea and vomiting, of the left upper quadrant. Exam: 20:59 Head/Face: Normocephalic, atraumatic. Eyes: Pupils equal round and reactive to light, cr extra-ocular motions intact. Lids and lashes normal. Conjunctiva and sclera are non-icteric and not injected. Cornea within normal limits. Periorbital areas with no swelling, redness, or edema. ENT: Nares patent. No nasal discharge, no septal abnormalities noted. Tympanic membranes are normal and external auditory canals are clear. Oropharynx with no redness, swelling, or masses, exudates, or evidence of obstruction, uvula midline. Mucous membranes moist. Neck: Trachea midline, no thyromegaly or masses palpated, and no cervical lymphadenopathy. Supple, full range of motion without nuchal rigidity, or vertebral point tenderness. No Meningismus. Chest/axilla: Normal chest wall appearance and motion. Nontender with no deformity. No lesions are appreciated. Cardiovascular: Regular rate and rhythm with a normal S1 and S2. No gallops, murmurs, or rubs. Normal PMI, no JVD. No pulse deficits. Respiratory: Lungs have equal breath sounds bilaterally, clear to auscultation and percussion. No rales, rhonchi or wheezes noted. No increased work of breathing, no retractions or nasal flaring. Back: No spinal tenderness. No costovertebral tenderness. Full range of motion. Skin: Warm, dry with normal turgor. Normal color with no rashes, no lesions, and no evidence of cellulitis. MS/ Extremity: Pulses equal, no cyanosis. Neurovascular intact. Full, normal range of motion. Neuro: Awake and alert, GCS 15, oriented to person, place, time, and situation. Cranial nerves II-XII grossly intact. Motor strength 5/5 in all extremities. Sensory grossly intact. Cerebellar exam normal. Normal gait. Psych: Awake, alert, with orientation to person, place and time. Behavior, mood, and affect are within normal limits. 20:59 Constitutional: The patient appears febrile. 20:59 Abdomen/GI: Inspection: abdomen appears normal, Bowel sounds: normal, Palpation: mild abdominal tenderness, in the posterior aspect of left lateral abdomen, anterior aspect of left lateral abdomen and left upper quadrant, Liver: no appreciated palpable abnormalities, Hernia: not appreciated. 21:53 ECG was reviewed by the Attending Physician. [facility] Vital Signs: 20:07 BP 139 / 72; Pulse 107; Resp 22 S; Temp 100.2; Pulse Ox 95% on R/A; Weight 73.94 kg; ha1 Pain 6/10; 21:15 BP 125 / 76; Pulse 94; Resp 20 S; Temp 98.5; Pulse Ox 97% on R/A; ha1 22:05 BP 126 / 66; Pulse 94; Resp 20 S; Temp 98.5; Pulse Ox 96% on R/A; ha1 23:00 BP 127 / 75; Pulse 93; Resp 20 S; Pulse Ox 97% on R/A; ha1 20:07 Pain Scale: Adult ha1 MDM: 20:09 Patient medically screened. [facility] 21:00 Differential Diagnosis sepsis. Differential diagnosis: Nonspecific abd pain, gastritis, cr pancreatitis, diverticulitis, viral gastroenteritis, gastroenteritis, bowel obstruction, diverticulitis, gastritis, Hepatitis, non-specific abd pain, pancreatitis, Peptic Ulcer Disease. Data reviewed: vital signs, nurses notes, lab test result(s), EKG, radiologic studies, CT scan, plain films. Consideration of Admission/Observation Escalation of care including admission/observation considered. I considered the following discharge prescriptions or medication management in the emergency department Medications were administered in the Emergency Department. See MAR. Test considered but Not performed: Ultrasound no abd usg. Historians other than the Patient: EMS: ems informed. Care significantly affected by the following chronic conditions: Diabetes, Hypertension, high cholesterol. 01/11 20:21 Order name: Urinalysis w/ reflexes; Complete Time: 21:49 cr 01/11 20:22 Order name: SARS RAPID [facility] 01/11 21:19 Order name: Basic Metabolic Panel; Complete Time: 21:49 EDMS 01/11 21:19 Order name: Liver (Hepatic) Function; Complete Time: 21:49 EDMS 01/11 21:19 Order name: Troponin High Sensitivity; Complete Time: 21:49 EDMS 01/11 21:19 Order name: NT PRO-BNP; Complete Time: 21:49 EDMS 01/11 21:19 Order name: Magnesium; Complete Time: 21:49 EDMS 01/11 21:19 Order name: Lipase; Complete Time: 21:49 EDMS 01/11 21:19 Order name: Lactate w/ 2H reflex if indic.; Complete Time: 21:49 EDMS 01/11 21:19 Order name: SARS-COV-2 Antigen Rapid; Complete Time: 21:49 EDMS 01/11 21:19 Order name: CBC with Automated Diff; Complete Time: 21:49 EDMS 01/11 21:19 Order name: Protime (+INR); Complete Time: 21:49 EDMS 01/11 21:19 Order name: Blood Culture EDMS 01/11 21:19 Order name: Blood Culture EDMS 01/11 21:19 Order name: Influenza Screen (A ; Complete Time: 21:49 EDMS 01/11 21:44 Order name: Urine Culture EDMS 01/11 23:06 Order name: Urinalysis w/ reflexes EDMS 01/11 23:06 Order name: Basic Metabolic Panel EDMS 01/11 23:06 Order name: Basic Metabolic Panel EDMS 01/11 23:06 Order name: Basic Metabolic Panel EDMS 01/11 23:06 Order name: Basic Metabolic Panel EDMS 01/11 23:06 Order name: CBC with Automated Diff EDMS 01/11 23:06 Order name: CBC with Automated Diff EDMS 01/11 23:06 Order name: CBC with Automated Diff EDMS 01/11 23:06 Order name: CBC with Automated Diff EDMS 01/11 23:06 Order name: Magnesium EDMS 01/11 23:06 Order name: Magnesium EDMS 01/11 23:06 Order name: Magnesium EDMS 01/11 23:06 Order name: Magnesium EDMS 01/11 20:21 Order name: CT Chest, Abdomen, Pelvis - W/Contrast cr 01/11 20:53 Order name: Chest Single View; Complete Time: 21:49 EDMS 01/11 20:21 Order name: EKG; Complete Time: 21:29 cr 01/11 23:06 Order name: Clear Liquid [facility] 01/11 23:06 Order name: CONS Physician Consult [facility] 01/11 20:21 Order name: Cardiac monitoring; Complete Time: [facility] 01/11 20:21 Order name: EKG - Nurse/Tech; Complete Time: 22:33 [facility] 01/11 20:21 Order name: IV Saline Lock; Complete Time: : [facility] 01/11 20:21 Order name: Labs collected and sent; Complete Time: [facility] 01/11 20:21 Order name: O2 Per Protocol; Complete Time: [facility] 01/11 20:21 Order name: O2 Sat Monitoring; Complete Time: : [facility] EC:53 Rate is 92 beats/min. Rhythm is regular. QRS Miles is Normal. FL interval is normal. QRS cr interval is normal. QT interval is normal. No Q waves. T waves are Normal. No ST changes noted. Clinical impression: NSR w/ Non-specific ST/T Changes and No evidence of ischemia. Interpreted by me. Reviewed by me. Administered Medications: 21:00 Drug: Acetaminophen PO 1000 mg Route: PO; [facility] 22:20 Follow up: Response: No adverse reaction; Temperature is decreased 21:27 Drug: NS 0.9% IV 1000 ml Route: IV; Rate: 125 ml/hr; Site: right antecubital; 01/12 00:00 Follow up: Response: No adverse reaction; IV Status: Infusion continued; IV Intake: ha1 450ml 01/11 21:27 Drug: Rocephin IV 1 grams Route: IV; Rate: bolus; Site: right antecubital; 22:00 Follow up: Response: No adverse reaction; IV Status: Completed infusion; IV Intake: [id number] 21:28 Drug: NS 0.9% IV 1000 ml Route: IV; Rate: 1 bolus; Site: right antecubital; 01/12 00:00 Follow up: Response: No adverse reaction; IV Status: Completed infusion; IV Intake: ha1 1000ml 01/11 22:23 Drug: NS 0.9% IV 1000 ml Route: IV; Rate: 1 bolus; Site: right antecubital; [facility] 23:40 Follow up: Response: No adverse reaction; IV Status: Completed infusion; IV Intake: ha1 1000ml 23:45 Drug: Meropenem IV 1 grams Route: IV; Rate: per protocol; Site: right antecubital; ha1 Disposition Summary: 01/11/23 21:52 Hospitalization Ordered Hospitalization Status: Inpatient Admission cr Location: Telemetry/MedSurg (Inpatient) cr Condition: Fair cr Problem: new cr Symptoms: have improved cr Bed/Room Type: Standard cr Provider: Nathan Mehta(01/11/23 22:02) cr Room Assignment: 219(01/11/23 22:49) Diagnosis - Fever, unspecified cr - Vomiting cr - Obesity, unspecified cr - UTI/ Urinary tract infection, site not specified cr - Type 1 diabetes mellitus with hyperglycemia cr - Elevated white blood cell count cr - Pyelonephritis acute cr Forms: - Medication Reconciliation Form cr - SBAR form cr Signatures: Dispatcher [employer] EDMS Murray Ponce MD MD cha Garcia, Cindy, RN RN Sonja Ramirez RN RN ha1 Corrections: (The following items were deleted from the chart) 21:37 21:29 Chest Single View+RAD.RAD.BRZ ordered. EDAZ EDMS 22:02 21:52 Lisa Tabor cha cr 22:36 21:29 Influenza Screen (A \T\ B)+BA.LAB.BRZ ordered. EDAZ EDMS 22:38 21:29 BASIC METABOLIC PANEL+C.LAB.BRZ ordered. EDAZ EDMS 22:38 21:29 CBC+H.LAB.BRZ ordered. EDAZ EDMS 22:38 21:29 HEPATIC FUNCTION+C.LAB.BRZ ordered. EDMS EDMS 22:38 21:29 MAGNESIUM+C.LAB.BRZ ordered. EDMS EDMS 22:38 21:29 PROBNP+C.LAB.BRZ ordered. EDMS EDMS 22:38 21:29 PROTIME (+INR)+COAG.LAB.BRZ ordered. EDMS EDMS 22:38 21:29 Troponin High Sensitivity+C.LAB.BRZ ordered. EDMS EDMS 22:38 21:29 LIPASE+C.LAB.BRZ ordered. EDMS EDMS 22:38 21:29 BLOOD CULTURE*+BA.LAB.BRZ ordered. EDAZ EDMS 22:38 21:29 LACTATE+C.LAB.BRZ ordered. EDMS EDMS 22:49 21:52 cr cg
--- NOTE | 2023-01-11 22:00 | P.HP ---
Certification for Inpatient Patient admitted to: Inpatient With expected LOS: <2 Midnights Patient will require the following post-hospital care: None Practitioner: I am a practitioner with admitting privileges, knowledge of patient current condition, hospital course, and medical plan of care. Services: Services provided to patient in accordance with Admission requirements found in Title 42 Section 412.3 of the Code of Federal Regulations Patient History Date of Service: 01/12/23 Reason for admission: Acute Cystitis History of Present Illness: 71-year-old speaking female with history of insulin-dependent diabetes, hypertension, hyperlipidemia presents to the emergency department for weakness, malaise, urinary frequency/urgency presents to the emergency room with abdominal pain with nausea vomiting. She reports abdominal pain is lower abdomen, and left upper quadrant, started 1 day ago. She denies chest pain, shortness of breath, dizziness, edema. Plan to admit for pyelonephritis, nausea vomiting, type 1 diabetes mellitus with hyperglycemia, leukocytosis, laboratory evaluation WBCs 13.0, early left shift 89.7, normocytic anemia hemoglobin 11.8, 35.4, CMP mild hyponatremia 135 acute kidney injury, BUN 27, creatinine 1.30, elevated lactic at 2.5, CT of the abdomen pelvis pending, chest x-ray pending Allergies No Known Allergies Allergy (Verified 08/04/17 01:02) Home Medications: Amlodipine Besylate 1 tab PO DAILY 08/04/17 Aspirin [Aspir-Low] 1 tab PO DAILY 08/04/17 Insulin Detemir [Levemir Flextouch] 35 units SQ BID 08/04/17 Alendronate [Fosamax*] 10 mg DAILY 01/28/22 Gabapentin 100 mg DAILY 01/28/22 Lisinopril [Zestril] 40 mg DAILY 01/28/22 Metoprolol Succinate 100 mg DAILY 01/28/22 Sitagliptin Phos/Metformin HCl [Janumet Xr 100-1,000 mg Tablet] 50 - 1,000 mg DAILY 01/28/22 Ciprofloxacin HCl [Cipro 500 MG Tablet] 500 mg PO BID 12 Days #24 tab 01/31/22 Pantoprazole Sodium [Protonix] 40 mg PO BID 30 Days #60 tab 01/31/22 Tramadol HCl [Ultram] 50 mg PO Q6H PRN #12 tab 01/31/22 metroNIDAZOLE [Flagyl*] 500 mg PO Q8H 12 Days #36 tab 01/31/22 - Past Medical/Surgical History Diabetic: Yes -: high cholesterol -: IDDM -: HTN -: Dyslipidemia -: DM type II -: hysterectomy Psychosocial/ Personal History: Lives at home with her family - Family History Mother -: Diabetes Father -: Diabetes - Social History Alcohol use: No CD- Drugs: No Caffeine use: No Review of Systems 10-point ROS is otherwise unremarkable Physical Examination - Physical Exam General: Alert, In no apparent distress, Oriented x3 HEENT: Atraumatic, Normocephalic, PERRLA Neck: Supple, 2+ carotid pulse no bruit Respiratory: Clear to auscultation bilaterally, Normal air movement Cardiovascular: No edema, Normal pulses, Regular rate/rhythm (ED) Gastrointestinal: Normal bowel sounds, Other (Lower abdominal tenderness, no rebound tenderness,) Musculoskeletal: No clubbing, No swelling Neurological: Normal speech, Normal strength at 5/5 x4 extr - Studies Laboratory Data (last 24 hrs) 01/11/23 01/11/23 01/11/23 20:55 20:55 20:55 WBC 13.40 H Hgb 11.8 L Hct 35.4 L Plt Count 232 PT 11.5 INR 1.05 Sodium 135 L Potassium 4.1 BUN 27 H Creatinine 1.30 H Glucose 307 H Magnesium 1.7 Total Bilirubin 0.6 AST 11 L ALT 15 Alkaline Phosphatase 82 Lipase 81 H Microbiology Data (last 24 hrs): 01/11/23 20:55 Nasopharnyx Influenza Type A Antigen Screen - Final 01/11/23 20:55 Nasopharnyx Influenza Type B Antigen Screen - Final Assessment and Plan - Plan Assessment plan Pyelonephritis Nausea vomiting, abdominal pain Insulin-dependent diabetes mellitus with hyperglycemia Acute kidney injury Normocytic anemia Essential hypertension Hyperlipidemia Assessment plan Pyelonephritis IV fluids, IV antibiotics, WBCs 13.0, early left shift 89.7, UA leukoesterase greater than 500, WBCs greater than 50, +1 hematuria +3 glucose elevated lactic at 2.5 CT of the abdomen pelvis pending, chest x-ray pending Nausea vomiting, abdominal pain IV fluids, as needed antiemetics, as needed analgesics Insulin-dependent diabetes mellitus Accu-Cheks, sliding scale insulin, A1c in the a.m. Insulin-dependent diabetes mellitus with hyperglycemia Sliding scale insulin, A1c in the a.m Acute kidney injury, Nephrology consult IV fluids, trend kidney function acute kidney injury, BUN 27, creatinine 1.30, Normocytic anemia normocytic anemia hemoglobin 11.8, 35.4, Trend H&H Essential hypertension Hyperlipidemia Resume appropriate home medications Full code DVT heparin Diet clear liquids advance as tolerated . Discharge Plan: Home Plan to discharge in: 48 Hours - Advance Directives Does patient have a Living Will: No Does patient have a Durable POA for Healthcare: No - Code Status/Comfort Care Code Status: Full Code Physician Review: Patient Assessed, Agree with Above Assessment and Plan Time Spent Managing Pts Care (In Minutes): 50
--- NOTE | 2023-01-11 22:48 | RAD REPORT ---
EXAM DESCRIPTION: CT - Chest Abdomen Pelvis W Cont - 01/11/2023 10:12 pm CLINICAL HISTORY: PAIN COMPARISON: [facility] Protocol dated 06/22/2022 TECHNIQUE: Thin axial CT images of the chest, abdomen, and pelvis, performed following intravenous a dministration of 100 mL Isovue-300. Multiplanar reformats were generated and reviewed. All CT scans are performed using dose optimization technique as appropriate and may include automated exposure control or mA/KV adjustment according to patient size. FINDINGS: The lungs are clear.No pleural or pericardial effusion.No intrathoracic adenopathy. The liver, spleen, pancreas, adrenal glands and gallbladder are within normal limits. Patchy areas of hypoenhancement along the left renal cortex. Mild urothelial hyperenhancement of the left renal pelvis which is minimally prominent. Mildly asymmetric left perinephric fat stranding. No hydroureteronephrosis or obstructing calculi. No bowel obstruction, free air, free fluid or abscess. Normal appendix. No pathologic lymphadenopath y in the abdomen or pelvis. No worrisome osseous finding. IMPRESSION: Findings suggestive of left pyelonephritis with minimal prominence of the left renal pel vis. Please correlate with urinalysis results.
[2023-01-11] MEDS: NA CHLORIDE 0.9% 1,000 ML IV SCH (23:03)
[2023-01-11] MEDS ORDERED: ONDANSETRON 4 MG/2 ML VIAL IV PRN (23:03)
[2023-01-11] MEDS ORDERED: ALPRAZOLAM 0.25 MG TABLET PO PRN (23:03)
[2023-01-11] MEDS ORDERED: NA CHLORIDE 0.9% 100 ML ONE (23:58)
[2023-01-11] MEDS ORDERED: Meropenem 1000 MG/VIAL IV ONE (23:58)
[2023-01-12] MEDS ORDERED: CEFTRIAXONE 1,000 MG in NA CHLORIDE 0.9% 50 ML IVPB ONE (00:39)
[2023-01-12] MEDS ORDERED: D50W 25 GM/50 ML SYRINGE IV PRN (01:01)
[2023-01-12] MEDS: HEPARIN 5000 UNIT/ML 1 ML VIAL SQ SCH ×2 (01:01→08:31)
[2023-01-12] MEDS ORDERED: GLUCAGON 1 MG/VIAL IM PRN (01:01)
[2023-01-12] MEDS ORDERED: D10W 125 ML IV PRN (01:04)
[2023-01-12 01:30] VITALS: BMI 29.5
[2023-01-12 06:45] LABS: Absolute Lymphocytes (CBC) 2.1 K/uL (0.7-4.9); Hematocrit 33.6 % (36.0-45.0); Lymphocytes % 13.8 % (15.3-44.8); MCV 90.5 fL (80-100); MPV 9.1 fL (7.6-11.3); Platelets 214 thou/uL (152-406); RBC Red Blood Cell Count 3.71 M/uL (3.86-4.86)
[2023-01-12 06:55] LABS: Magnesium 1.7 mg/dL (1.6-2.4); Potassium 4.1 mEq/L (3.5-5.1)
[2023-01-12] MEDS: CEFTRIAXONE 2,000 MG in NA CHLORIDE 0.9% 100 ML IV SCH (08:30)
[2023-01-12] MEDS: INSULIN -REGULAR HUMAN 50 UNIT/0.5 ML ML SQ SCH ×4 (08:31→20:45)
--- NOTE | 2023-01-12 09:26 | P.CNS ---
Date of Consult: 01/12/23 Reason for Consult: pyelonephritis Chief Complaint: Acute Cystitis History of Present Illness: Patient is a 71 yo female with a past medical history of diabetes mellitus type 2, hypertension and hyperlipidemia who presented to the ED with complaints of abdominal pain, nausea, vomiting, weakness, urinary frequency/urgency. CT abdomen pelvis findings of pyelonephritis. Urine culture pending. ID was consulted. Allergies No Known Allergies Allergy (Verified 08/04/17 01:02) Home medications list reviewed: Yes Home Medications: Amlodipine Besylate 1 tab PO DAILY 08/04/17 Aspirin [Aspir-Low] 1 tab PO DAILY 08/04/17 Insulin Detemir [Levemir Flextouch] 65 units SQ BEDTIME 08/04/17 Gabapentin 300 mg PO BID 01/28/22 Lisinopril [Zestril] 40 mg DAILY 01/28/22 Atorvastatin Calcium 40 mg PO DAILY 01/12/23 Glimepiride 1 mg PO DAILY 01/12/23 Sitagliptin Phos/Metformin HCl [Janumet 50-1,000 mg Tablet] 1 tab PO DAILY 01/12/23 - Past Medical/Surgical History Diabetic: Yes -: high cholesterol -: IDDM -: HTN -: Dyslipidemia -: DM type II -: hysterectomy Psychosocial/ Personal History: Lives at home with her family - Family History Mother Medical History: Diabetes Father Medical History: Diabetes - Social History Smoking Status: Unknown if ever smoked Alcohol use: No CD- Drugs: No Caffeine use: No Place of Residence: Home Review of Systems 10-point ROS is otherwise unremarkable General: Fever, Weakness Gastrointestinal: Nausea Genitourinary: As per HPI Physical Examination Temp Pulse Resp BP Pulse Ox 97.3 F 71 16 113/53 L 96 01/12/23 04:00 01/12/23 04:00 01/12/23 04:00 01/12/23 04:00 01/12/23 04:00 General: Alert, In no apparent distress, Oriented x2 HEENT: Atraumatic, Normocephalic Neck: Supple, JVD not distended Respiratory: Clear to auscultation bilaterally, Normal air movement Cardiovascular: No edema, Normal pulses Gastrointestinal: Normal bowel sounds, Soft and benign Musculoskeletal: No clubbing Integumentary: No rashes, No breakdown Neurological: Normal speech Laboratory Data - Reviewed Microbiology Data - Reviewed Imagings Data: - Reviewed Conclusions/Impression: Problem List Acute Pyelonephritis Diabetes Mellitus Type II Hypertension Hyperlipidemia Pyelonephritis - CT chest abdomen pelvis 01/11: "Findings suggestive of left pyelonephritis with minimal prominence of the left renal pelvis. Please correlate with urinalysis results." - Associated symptoms of nausea, vomiting, fever, chills. - Urine culture 01/11: Pending - Blood cultures 01/11: Pending - Currently on Rocephin (01/11-) - Leukocytosis (WBC 15.6). Afebrile. Recommendations - Continue Rocephin for now. Pyelonephritis: patient will require 14 days of antibiotics. Follow up with urine culture and blood culture results. Will adjust antibiotics as needed - Monitor WBC and fever trends - Supportive care and nutritional support as needed Case discussed with Malinda Levine
--- NOTE | 2023-01-12 10:36 | P.PN ---
Subjective Date of Service: 01/12/23 Chief Complaint: Acute Pyelonephritis Subjective: Improving (C/o Left sided flank pain. B/C pos) Review of Systems is unable to be obtained Physical Examination - Vital Signs Temperature: 97.6 F Blood Pressure: 134/60 Pulse: 72 Respirations: 15 Pulse Ox (%): 95 - Physical Exam General: Alert, Cooperative Respiratory: Clear to auscultation bilaterally Cardiovascular: No edema, Regular rate/rhythm Gastrointestinal: Tenderness (Left flank) - Studies Laboratory Data (last 24 hrs) 01/11/23 01/11/23 01/11/23 20:55 20:55 20:55 WBC 13.40 H Hgb 11.8 L Hct 35.4 L Plt Count 232 PT 11.5 INR 1.05 Sodium 135 L Potassium 4.1 BUN 27 H Creatinine 1.30 H Glucose 307 H Magnesium 1.7 Total Bilirubin 0.6 AST 11 L ALT 15 Alkaline Phosphatase 82 Lipase 81 H 01/11/23 01/11/23 01/11/23 20:21 20:21 20:21 WBC Cancelled Hgb Cancelled Hct Cancelled Plt Count Cancelled PT Cancelled INR Cancelled Sodium Cancelled Potassium Cancelled BUN Cancelled Creatinine Cancelled Glucose Cancelled Magnesium Cancelled Total Bilirubin Cancelled AST Cancelled ALT Cancelled Alkaline Phosphatase Cancelled Lipase Cancelled Microbiology Data (last 24 hrs): 01/11/23 20:55 Blood - Blood Blood Culture Gram Stain - Final 01/11/23 20:55 Blood - Blood Gram Stain - Final 01/11/23 20:55 Blood - Blood Blood Culture Gram Stain - Final 01/11/23 20:55 Blood - Blood Gram Stain - Final 01/11/23 20:55 Nasopharnyx Influenza Type A Antigen Screen - Final 01/11/23 20:55 Nasopharnyx Influenza Type B Antigen Screen - Final Assessment And Plan - Current Problems (Diagnosis) (1) Pyelonephritis Current Visit: Yes Status: Acute Plan: AW acute Pnephritis. B/C pos , Septic, CW IV fluids, AB pain relief. CW IV fluis recophin/ Renal function is improving Physician Review: Patient Assessed, Agree with Above Assessment and Plan
[2023-01-12] MEDS: NA CHLORIDE 0.9% 1,000 ML IV SCH (14:45)
[2023-01-12] MEDS: ENOXAPARIN 40 MG/0.4 ML SQ SCH (16:36)
[2023-01-12] MEDS: ACETAMINOPHEN 500 MG TAB PO PRN ×2 (16:37→20:45)
[2023-01-13] MEDS: NA CHLORIDE 0.9% 1,000 ML IV SCH ×2 (01:43→03:04)
[2023-01-13 03:18] LABS: Absolute Lymphocytes (CBC) 1.9 K/uL (0.7-4.9); Hematocrit 36.8 % (36.0-45.0); Lymphocytes % 17.9 % (15.3-44.8); MPV 9.2 fL (7.6-11.3); Platelets 223 thou/uL (152-406); RBC Red Blood Cell Count 4.09 M/uL (3.86-4.86)
[2023-01-13 03:29] LABS: Magnesium 1.7 mg/dL (1.6-2.4); Potassium 3.8 mEq/L (3.5-5.1)
[2023-01-13] MEDS ORDERED: MAGNESIUM SULFATE 1 gm IVPB 1 GM/100 ML BAG IV ONE (06:15)
[2023-01-13] MEDS: CEFTRIAXONE 2,000 MG in NA CHLORIDE 0.9% 100 ML IV SCH (08:07)
[2023-01-13] MEDS: INSULIN -REGULAR HUMAN 50 UNIT/0.5 ML ML SQ SCH ×4 (08:09→21:21)
[2023-01-13] MEDS ORDERED: POTASSIUM CL SA 10 MEQ TAB PO ONE (09:00)
--- NOTE | 2023-01-13 09:35 | P.PN ---
Subjective Date of Service: 01/13/23 Chief Complaint: Acute pyelonephritis Subjective: Improving (Patient is doing much better son at the bedside patient is [place]-speaking only pain has gone down) Review of Systems Unremarkable Physical Examination - Vital Signs Temperature: 99.2 F Blood Pressure: 165/78 Pulse: 90 Respirations: 18 Pulse Ox (%): 95 - Physical Exam General: Alert, Cooperative Respiratory: Clear to auscultation bilaterally Cardiovascular: No edema, Regular rate/rhythm Gastrointestinal: Normal bowel sounds, Soft and benign - Studies Microbiology Data (last 24 hrs): 01/11/23 20:55 Blood - Blood Blood Culture Gram Stain - Final 01/11/23 20:55 Blood - Blood Gram Stain - Final 01/11/23 20:55 Blood - Blood Blood Culture Gram Stain - Final 01/11/23 20:55 Blood - Blood Gram Stain - Final Assessment And Plan - Current Problems (Diagnosis) (1) Pyelonephritis Current Visit: Yes Status: Acute Plan: Patient admitted with acute pyelonephritis gram-negative rods isolated in the urine the blood ID is pending continue with Rocephin White count has declined. Still has a borderline temperature blood pressure elevated will resume all her home medications DC IV fluids continue with IV Rocephin resume her diabetic medications blood pressure pills stable discharge on Sunday Physician Review: Patient Assessed, Agree with Above Assessment and Plan
[2023-01-13] MEDS: GABAPENTIN 300 MG CAP PO SCH ×2 (10:24→21:21)
[2023-01-13] MEDS: AMLODIPINE 10 MG TAB PO SCH (13:22)
[2023-01-13] MEDS: lisinopriL 20 MG TAB PO SCH (13:23)
[2023-01-13] MEDS: ATORVASTATIN 40 MG TAB PO SCH (13:23)
[2023-01-13] MEDS: ASPIRIN EC 81 MG TAB PO SCH (13:23)
[2023-01-13] MEDS: ENOXAPARIN 40 MG/0.4 ML SQ SCH (17:42)
[2023-01-13] MEDS ORDERED: HOME MED 1 EA UNK (Insulin Detemir [Levemir Flextouch] 100 UNIT/ML Insuln.Pen) SQ SCH (21:00)
[2023-01-13] MEDS: INSULIN GLARGINE 100 UNIT/ML SQ SCH (21:21)
[2023-01-13 23:12] VITALS: O2SAT 94
[2023-01-14 03:35] LABS: Absolute Lymphocytes (CBC) 2.2 K/uL (0.7-4.9); Hematocrit 33.1 % (36.0-45.0); Lymphocytes % 30.2 % (15.3-44.8); MCV 89.9 fL (80-100); MPV 9.1 fL (7.6-11.3); Platelets 201 thou/uL (152-406); RBC Red Blood Cell Count 3.68 M/uL (3.86-4.86)
[2023-01-14 03:47] LABS: Magnesium 2.2 mg/dL (1.6-2.4); Potassium 4.3 mEq/L (3.5-5.1)
[2023-01-14] MEDS: INSULIN -REGULAR HUMAN 50 UNIT/0.5 ML ML SQ SCH ×4 (07:30→21:02)
[2023-01-14] MEDS ORDERED: ALOGLIPTIN BENZOATE 12.5 MG TABLET PO SCH ×2 (08:00)
[2023-01-14] MEDS ORDERED: GLIMEPIRIDE 2 MG TABLET PO SCH (08:00)
[2023-01-14] MEDS ORDERED: METFORMIN HCL 500 MG TAB PO SCH (08:00)
[2023-01-14] MEDS ORDERED: AMLODIPINE 10 MG TAB PO SCH (09:00)
[2023-01-14] MEDS ORDERED: HOME MED 1 EA UNK (Glimepiride [Glimepiride] 1 MG Tablet) PO SCH (09:00)
[2023-01-14] MEDS ORDERED: HOME MED 1 EA UNK (Sitagliptin Phos/Metformin Hcl [Janumet 50-1,000 Mg Tablet] Tablet) PO SCH (09:00)
[2023-01-14] MEDS ORDERED: HOME MED 1 EA UNK (Lisinopril [Zestril] 40 MG Tablet) PO SCH (09:00)
[2023-01-14] MEDS ORDERED: lisinopriL 20 MG TAB PO SCH (09:00)
[2023-01-14] MEDS ORDERED: ATORVASTATIN 40 MG TAB PO SCH (09:00)
[2023-01-14] MEDS ORDERED: ASPIRIN EC 81 MG TAB PO SCH (09:00)
[2023-01-14] MEDS: lisinopriL 20 MG TAB PO SCH (09:05)
[2023-01-14] MEDS: CEFTRIAXONE 2,000 MG in NA CHLORIDE 0.9% 100 ML IV SCH (09:07)
[2023-01-14] MEDS: GABAPENTIN 300 MG CAP PO SCH ×2 (09:07→21:01)
[2023-01-14] MEDS: ATORVASTATIN 40 MG TAB PO SCH (09:08)
[2023-01-14] MEDS: AMLODIPINE 10 MG TAB PO SCH (09:08)
[2023-01-14] MEDS: ASPIRIN EC 81 MG TAB PO SCH (09:12)
[2023-01-14 11:53] LABS: Absolute Lymphocytes (CBC) 1.8 K/uL (0.7-4.9); Hematocrit 34.4 % (36.0-45.0); Lymphocytes % 24.4 % (15.3-44.8); MCV 90.7 fL (80-100); MPV 9.3 fL (7.6-11.3); Platelets 202 thou/uL (152-406); RBC Red Blood Cell Count 3.79 M/uL (3.86-4.86)
[2023-01-14 12:14] LABS: Albumin 2.5 g/dL (3.4-5.0); Bilirubin Total 0.1 mg/dL (0.2-1.0); Magnesium 2.2 mg/dL (1.6-2.4); Potassium 4.2 mEq/L (3.5-5.1); Protein, Total 6.7 g/dL (6.4-8.2)
--- NOTE | 2023-01-14 15:34 | EKG ---
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
[2023-01-14] MEDS: ENOXAPARIN 40 MG/0.4 ML SQ SCH (16:55)
[2023-01-14] MEDS: INSULIN GLARGINE 100 UNIT/ML SQ SCH (21:03)
--- NOTE | 2023-01-15 06:00 | P.PN ---
Subjective Date of Service: 01/14/23 Subjective: No new changes, No C/O voiced, Improving Review of Systems 10-point ROS is otherwise unremarkable Physical Examination - Vital Signs Temperature: 98.4 F Blood Pressure: 120/59 Pulse: 78 Respirations: 16 Pulse Ox (%): 97 - Physical Exam General: Alert, In no apparent distress HEENT: Atraumatic, PERRLA, EOMI Neck: Supple, JVD not distended Respiratory: Clear to auscultation bilaterally, Normal air movement Cardiovascular: Regular rate/rhythm, Normal S1 S2 Gastrointestinal: Normal bowel sounds, No tenderness Musculoskeletal: No tenderness Integumentary: No rashes Neurological: Normal speech, Normal tone, Normal affect Lymphatics: No axilla or inguinal lymphadenopathy - Studies Microbiology Data (last 24 hrs): 01/11/23 20:55 Blood - Blood Aerobic Blood Culture - Final Escherichia Coli 01/11/23 20:55 Blood - Blood Blood Culture Gram Stain - Final 01/11/23 20:55 Blood - Blood Anaerobic Blood Culture - Final Escherichia Coli 01/11/23 20:55 Blood - Blood Gram Stain - Final 01/11/23 20:55 Blood - Blood Aerobic Blood Culture - Final Escherichia Coli 01/11/23 20:55 Blood - Blood Blood Culture Gram Stain - Final 01/11/23 20:55 Blood - Blood Anaerobic Blood Culture - Final Escherichia Coli 01/11/23 20:55 Blood - Blood Gram Stain - Final Medications List Reviewed: Yes Assessment & Plan - Problems (Diagnosis) (1) Pyelonephritis Current Visit: Yes Status: Acute (2) Acute kidney injury Current Visit: No Status: Acute (3) Diabetes type 2, controlled Current Visit: No Status: Acute - Plan Continue with antibiotics. Blood cultures positive. 2 weeks of oral antibiotic therapy. Discharge Plan: Home Plan to discharge in: Greater than 2 days - Advance Directives Does patient have a Living Will: No Does patient have a Durable POA for Healthcare: No - Code Status/Comfort Care Code Status: Full Code Physician Review: Patient Assessed, Agree with Above Assessment and Plan Critical Care: No Time Spent Managing PTS Care (In Minutes): 35
[2023-01-15] MEDS ORDERED: CEFTRIAXONE 2,000 MG in NA CHLORIDE 0.9% 100 ML IV ONE (06:30)
[2023-01-15] MEDS ORDERED: CEFTRIAXONE 1,000 MG in NA CHLORIDE 0.9% 50 ML IVPB ONE (07:00)
[2023-01-15 09:14] VITALS: BP 125/68; TEMP 97.3
--- NOTE | 2023-01-15 09:33 | P.PN ---
Date of Service: 01/15/23 Chief Complaint: Acute Cystitis Subjective: Improving. Denies any new or worsening complaints. Reports feeling better. Physical Examination Temp Pulse Resp BP Pulse Ox 97.3 F 87 24 H 125/68 93 01/15/23 08:00 01/15/23 08:00 01/15/23 08:00 01/15/23 08:00 01/15/23 08:00 General: Alert, In no apparent distress, Oriented x3 HEENT: Atraumatic, Normocephalic Neck: Supple, JVD not distended Respiratory: Clear to auscultation bilaterally, Normal air movement Cardiovascular: No edema, Normal pulses Gastrointestinal: Normal bowel sounds, Soft and benign Musculoskeletal: No clubbing Integumentary: No rashes, No breakdown Neurological: Normal speech Laboratory Data - Reviewed Microbiology Data - Reviewed Imagings Data: - Reviewed Medications List: reviewed Assessment and Plan Problem List Acute Pyelonephritis Diabetes Mellitus Type II Hypertension Hyperlipidemia Bacteremia Moderate PCM E.coli Bacteremia Pyelonephritis - On arrival, patient with reported symptoms of nausea, vomiting, fever, chills. - CT chest abdomen pelvis 01/11: Findings suggestive of left pyelonephritis with minimal prominence of the left renal pelvis. - Urine culture 01/11: 4+ gram negative rods - Blood cultures 01/11: Escherichia coli --resistant to levofloxacin, ciprofloxacin and Bactrim - Currently on Rocephin (01/11-) - Leukocytosis resolved. Afebrile. Recommendations Bacteremia/Pyelonephritis: patient will require 14 days of antibiotics. - Continue Rocephin for now. Consider switch to PO antibiotic to complete 14 days of antibiotic therapy upon discharge. - Supportive care and nutritional support as needed - Strict blood glucose control - Follow up with PCP 1-2 weeks after discharge. Case discussed with Malinda Levine
[2023-01-16] MEDS ORDERED: CEFTRIAXONE 2,000 MG in NA CHLORIDE 0.9% 100 ML IV SCH (09:00)
== END 2023-01-15 08:50 | disposition home or self-care (01) | DRG 690 ==
LOC: ER 20:04 → 2ND 22:02
PROVIDERS: ADMIT Internal Medicine Sleep Medicine; ATTEND Hospitalist
DX: N10 Acute pyelonephritis (principal); E87.1 Hypo-osmolality and hyponatremia; E44.0 Moderate protein-calorie malnutrition; R78.81 Bacteremia; Z16.29 Resistance to other single specified antibiotic; N17.9 Acute kidney failure, unspecified; I10 Essential (primary) hypertension; E11.65 Type 2 diabetes mellitus with hyperglycemia; E78.00 Pure hypercholesterolemia, unspecified; E66.9 Obesity, unspecified; B96.20 Unspecified Escherichia coli [E. coli] as the cause of diseases classified elsewhere; Z79.4 Long term (current) use of insulin; Z79.82 Long term (current) use of aspirin; Z68.29 Body mass index [BMI] 29.0-29.9, adult; Z79.899 Other long term (current) drug therapy; Z90.710 Acquired absence of both cervix and uterus; Z20.822 Contact with and (suspected) exposure to COVID-19
CPT/HCPCS: 36415; 71045; 71260; 74177; 80048; 80053; 80076; 81001; 82947; 83036; 83605; 83690; 83735; 83880; 84145; 84484; 85025; 85610; 87040; 87077; 87086; 87088; 87186; 87205; 87804; 87811; 93005; 96361; 96365; 96375; 99285; J0696; J1644; J1650; J1815; J2185; J2405; J3475; J7030; Q9967

== ENCOUNTER 2024-06-08 12:44 | Emergency (ER) | payer OTHER ==
--- OUTSIDE RECORDS SUMMARY | 2024-06-08 12:49 | XMS REPORT | Continuity of Care Document ---
Author Name Unknown Address [address] [facility]. [address] [place] [address] [facility] thconnect Address [address] [facility]. [address] [place] [address] Care Team Providers Care Battery Charger Conveyor Line Name Role Phone No , Pcp Primary Care Physician Unavailab RANCHO Huber Attending Clinician Unavailable Ras ORGAN GRINDER- [place] Attending Clinician Salud Salgado MD Attending Clinician SALUD SALGADO Attending Clinician UnavailMaribel Huizar RN Attending Clinician Jennifer vailable Doctor Unassigned, [place] Attending Clinician JACEK Marlow Attending Clinician Unavailable Kari Groves Attending Clinician Unavailable Leslie Hinds Attending Clinician [phone] LESLIE MARTINEZ Attending Clinician Unavailable Kari Groves Admitting Clinician Unavailable Payers Payer Name Policy Type Policy Number Effective Date Expirati on Date Source [place] [id number] 2016 00:00:00 [facility] DUAL COMP HMO D SNP [id number] 2017 00:00:00 [facility] WELLMED [id number] 2020 00:00:00 Problems Condition Name Condition Details Condition Category Status Onset Date Resolution Date Last Treatment Date Treating Clinician Comments Source Hypertensi on Hypertensi on Disease Active 2022-06 012 00:00: 00 [facility] Lower GI bleed Lower GI bleed Disease Active 2022-06 012 00:00: 00 [facility] Diabetes type 2, controlled Diabetes type 2, controlled Disease Active 2022-06 0-12 00:00: 00 [facility] 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) Disease Active 2022-06 0 00:00: 00 [facility] Acute kidney injury Acute kidney injury Disease Active 2022-06 0 00:00: 00 [facility] Dyslipidem ia Dyslipidem ia Disease Active 2022-06 0 00:00: 00 [facility] Type 2 diabetes mellitus with stage 3b chronic kidney disease, 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, with long-term current use of insulin Disease Active 921 00:00: 00 [facility] Chronic pain of both knees Chronic pain of both knees Disease Active 01-01 00:00: 00 [facility] Chronic pain of both knees Chronic pain of both knees Disease Active 01-01 00:00: 00 [facility] Sjogren's syndrome Sjogren's syndrome Disease Active 12-12 00:00: 00 [facility] Proteinuri a Proteinuri a Disease Active 13 00:00: 00 [facility] ESR raised ESR raised Disease Active 606 00:00: 00 [facility] 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 09-05 00:00: 00 [facility] Immunizati on counseling Immunizati on counseling Disease Active 09-05 00:00: 00 [facility] 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 cuff tear arthropath y of right shoulder Disease Active 09-05 00:00: 00 [facility] Dry eyes Dry eyes Disease Active 4 00:00: 00 [facility] Pain in both hands Pain in both hands Disease Active 09-05 00:00: 00 [facility] Positive ARMEN (antinucle ar antibody) 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, + 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, + SSA Disease Resolve d 4-04 00:00: 00 2017-12-12 00:00:00 2017-12-12 15:34:27 [facility] Allergies, Adverse Reactions, Alerts Allergy Name Allergy Type Status Severity Reaction(s) Onset Date Inactive Date Treating Clinician Comments Source No Known Allergie s DA Active U 2013-06 2-18 00:00: 00 [facility] NO KNOWN ALLERGIE S Drug Class Active [facility] Social History Social Habit Start Date Stop Date Quantity Comments Source Sexual orientation [facility] Gender identity [facility] History of Social function 2024-03-12 00:00:00 2024-03-12 00:00:00 [facility] Alcoholic beverage intake 2024-03-12 00:00:00 2024-03-12 00:00:00 Current non-drinker of alcohol (finding) [facility] Alcohol intake 2023-08-24 00:00:00 2023-08-24 00:00:00 Current non-drinker of alcohol (finding) [facility] Tobacco use and exposure 2023-02-22 00:00:00 2023-02-22 00:00:00 Smokeless tobacco non-user [facility] Sex Assigned At 1950 00:00:00 1950 00:00:00 [facility] Smoking Status Start Date Stop Date Source Tobacco smoking consumption unknown [facility] Never smoked tobacco [facility] Medications Ordered Medication Name Filled Medication Name Start Date Stop Date Current Medication? Ordering Clinician Indication Dosage Frequency Signature (SIG) Comments Components Source Blood-Gluco se Sensor (DEXCOM G7 SENSOR) Shahana 2023-06 00:00: 00 Yes [id number] Use as directed [facility] Blood-Gluco se Meter,Bert nuous (DEXCOM G7 STRIP WINDER) [facility] 2023-06 0 00:00: 00 Yes [id number] Use as directed [facility] Blood-Gluco se Meter,Bert nuous (DEXCOM G7 STRIP WINDER) [facility] 2024-0 7-05 00:00: 00 Yes [id number] Use as directed to check blood sugars. Dx: E11.22 [facility] Blood-Gluco se Sensor (DEXCOM G7 SENSOR) Shahana 12-06 00:00: 00 Yes [id number] Use as directed to check blood sugars. Change sensor every 10 days. Dx.E11.22 [facility] Insulin Glargine (LANTUS SOLOSTAR U-100 INSULIN) 100 unit/mL (3 mL) injection 12-06 00:00: 00 Yes [id number] 20U inject 20 Units under the skin at bedtime. [facility] insulin lispro (HUMALOG KWIKPEN INSULIN) 100 unit/mL pen injector 12-06 00:00: 00 Yes [id number] 10U inject 10 Units under the skin 2 (two) times daily before breakfast and dinner. [facility] Insulin Kerrick, Disposable, (PEN NEEDLES) 31 gauge x 1/4" Ndle 12-06 00:00: 00 Yes [id number] Use as directed [facility] dulaglutide (TRULICITY) 1.5 mg/0.5 mL PnIj 12-06 00:00: 00 Yes [id number] 1.5mg inject 1 Pen under the skin weekly. [facility] Insulin Glargine (LANTUS SOLOSTAR U-100 INSULIN) 100 unit/mL (3 mL) injection 10-02 00:00: 00 12-06 00:00 :00 No [id number] INYECTE 20 UNITS UNDER THE SKIN TODOS DAMON URBAN AL ACOSTARSE [facility] Blood-Gluco se Sensor (DEXCOM G7 SENSOR) Shahana 08-23 00:00: 00 12-06 00:00 :00 No [id number] Use as directed to check blood sugars. Change sensor every 10 days. Dx.E11.22 [facility] insulin lispro (HUMALOG KWIKPEN INSULIN) 100 unit/mL pen injector 08-23 00:00: 00 12-06 00:00 :00 No [id number] 10U inject 10 Units under the skin 3 (three) times daily before meals. [facility] Insulin Kerrick, Disposable, (PEN NEEDLES) 31 gauge x 1/4" Ndle 08-23 00:00: 00 12-06 00:00 :00 No [id number] Use as directed [facility] Blood-Gluco se Meter,Bert nuous (DEXCOM G7 STRIP WINDER) [facility] 08-23 00:00: 00 12-06 00:00 :00 No [id number] Use as directed to check blood sugars. Dx: E11.22 [facility] Insulin Glargine (LANTUS SOLOSTAR U-100 INSULIN) 100 unit/mL (3 mL) injection 08-23 00:00: 00 10-02 00:00 :00 No [id number] 20U inject 20 Units under the skin at bedtime. [facility] Blood-Gluco se Meter,Bert nuous (DEXCOM G7 STRIP WINDER) [facility] 00:00: 00 08-23 00:00 :00 No Use as directed to check blood sugars. Dx: E11.22 [facility] Blood-Gluco se Sensor (DEXCOM G7 SENSOR) Shahana 00:00: 00 08-23 00:00 :00 No Use as directed to check blood sugars. Change sensor every 10 days. Dx.E11.22 [facility] insulin lispro (HUMALOG KWIKPEN INSULIN) 100 unit/mL pen injector 00:00: 00 08-23 00:00 :00 No [id number] 8U inject 8 Units under the skin 2 (two) times daily with meals. [facility] Insulin Glargine (LANTUS SOLOSTAR U-100 INSULIN) 100 unit/mL (3 mL) injection 08-01 00:00: 00 08-23 00:00 :00 No [id number] 25U inject 25 Units under the skin at bedtime. [facility] Insulin Glargine (LANTUS SOLOSTAR U-100 INSULIN) 100 unit/mL (3 mL) injection 2022-06 00:00: 00 Yes [id number] 25U inject 25 Units under the skin at bedtime. [facility] insulin lispro (HUMALOG KWIKPEN INSULIN) 100 unit/mL pen injector 2022-06 00:00: 00 Yes [id number] 8U inject 8 Units under the skin 2 (two) times daily with meals. [facility] Insulin Kerrick, Disposable, (PEN NEEDLES) 31 gauge x 1/4" Ndle 2022-06 00:00: 00 08-23 00:00 :00 No [id number] Use as directed [facility] Blood-Gluco se Sensor (FREESTYLE REBEL 3 SENSOR) Shahana 2022-06 00:00: 00 00:00 :00 No [id number] Use as directed [facility] insulin lispro (HUMALOG KWIKPEN INSULIN) 100 unit/mL pen injector 2022-06 00:00: 00 00:00 :00 No [id number] 8U inject 8 Units under the skin 2 (two) times daily with meals. [facility] Insulin Glargine (LANTUS SOLOSTAR U-100 INSULIN) 100 unit/mL (3 mL) injection 2022-06 00:00: 00 08-01 00:00 :00 No [id number] 25U inject 25 Units under the skin at bedtime. [facility] allopurinol (Zyloprim) 100 MG tablet 02-27 00:00: 00 Yes TOME JENNIFER TABLETA DIARIAMENT E [facility] Insulin Glargine 100 unit/mL (3 mL) injection 02-22 00:00: 00 06-01 00:00 :00 No [id number] 45U inject 45 Units under the skin at bedtime. [facility] insulin lispro (HUMALOG KWIKPEN INSULIN) 100 unit/mL pen injector 02-22 00:00: 06-01 00:00 :00 No [id number] 20U inject 20 Units under the skin 2 (two) times daily with meals. [facility] Insulin Kerrick, Disposable, (PEN NEEDLES) 31 gauge x 1/4" Ndle 02-22 00:00: 00 06-01 00:00 :00 No [id number] Use as directed [facility] Blood-Gluco se Sensor (FREESTYLE REBEL 3 SENSOR) Shahana 02-22 00:00: 00 06-01 00:00 :00 No [id number] Use as directed [facility] Continuous Blood Gluc Sensor (Dexcom G7 Sensor) misc 02-16 00:00: 00 Yes See administra tion instructio ns. [facility] Aspirin Low Dose 81 MG EC tablet 02-11 00:00: 00 Yes TOME JENNIFER TABLETA DIARIAMENT E [facility] Janumet XR 50-1000 MG tablet sustained-r elease 24 hour 01-15 00:00: 00 Yes TOME JENNIFER TABLETA DOS VECES AL D A [facility] glimepiride (Amaryl) 1 MG tablet 12-18 00:00: 00 Yes TOME JENNIFER TABLETA DIARIAMENT E [facility] alendronate (Fosamax) 10 MG tablet 12-15 00:00: 00 Yes TAKE 1 TABLET BY MOUTH DAILY JULIET JENNIFER TABLETA JENNIFER VECE AL PITO PARA LA SHANNAN OSEA [facility] amLODIPine (Norvasc) 10 MG tablet 12-15 00:00: 00 Yes TAKE 1 TABLET BY MOUTH DAILY JULIET JENNIFER TABLETA JENNIFER VECES AL PITO PARA LA PRESION ARTERIAL [facility] gabapentin (Neurontin) 300 MG capsule 12-15 00:00: 00 Yes TOME JENNIFER C PSULA DOS VECES AL D A CUANDO SEA NECESARIO [facility] Levemir FlexPen 100 UNIT/ML injection 12-15 00:00: 00 Yes INJECT 55 UNITS UNDER THE SKIN AT BEDTIME. [facility] lisinopril 40 MG tablet 12-15 00:00: 00 Yes 40mg 40 mg. [facility] metoprolol succinate XL (Toprol-XL) 100 MG 24 hr tablet 714 00:00: 00 Yes TAKE 1 TABLET BY MOUTH DAILY. JULIET JENNIFER TABLETA JENNIFER VECES AL PITO PARA LA PRESION ARTERIAL [facility] atorvastati n (Lipitor) 40 MG tablet 215 00:00: 00 Yes 40mg Take 40 mg by mouth every night. [facility] carvedilol (Coreg) 12.5 MG tablet 213 00:00: 00 Yes TOME JENNIFER TABLETA DOS VECES AL D A [facility] Diclofenac Sodium 1 % gel 01-01 00:00: 00 Yes Apply 1gram to affected area twice daily [facility] Diclofenac Sodium 1 % gel 09-05 00:00: 00 Yes Apply 1gram to affected area twice daily [facility] ciprofloxac in HCl 500 mg tablet 08-20 00:00: 00 Yes 500mg Take 1 tablet by mouth. [facility] atorvastati n 20 mg tablet 08-05 00:00: 00 Yes 40mg Take 2 tablets by mouth. [facility] nitrofurant oin 100 mg capsule 08-05 00:00: 00 Yes 100mg Take 1 capsule by mouth daily. [facility] SARAH PEN NEEDLE 32 gauge x 5/32" Ndle 07-31 00:00: 00 Yes misc [facility] naproxen 500 mg tablet 07-31 00:00: 00 Yes 500mg Take 500 mg by mouth daily. [facility] SARAH PEN NEEDLE 32 gauge x 5/32" Ndle 07-31 00:00: 00 Yes misc [facility] amLODIPine 10 mg tablet 07-31 00:00: 00 Yes 10mg Take 1 tablet by mouth daily. [facility] aspirin 81 mg chewable tablet 07-31 00:00: 00 Yes 81mg Take 1 tablet by mouth daily. [facility] pantoprazol e 40 mg EC tablet 07-31 00:00: 00 Yes 40mg Take 1 tablet by mouth daily. [facility] losartan-hy drochloroth iazide 100-12.5 mg per tablet 07-31 00:00: 00 Yes TOME JENNIFER TABLETA TODOS LOS D? [facility] metoprolol tartrate 100 mg tablet 07-31 00:00: 00 Yes 100mg Take 1 tablet by mouth daily. [facility] LEVEMIR FLEXTOUCH 100 unit/mL (3 mL) injection 07-31 00:00: 00 02-22 00:00 :00 No 100U inject 100 Units under the skin 2 (two) times daily. 35 units BID [facility] JANUMET XR 100-1,000 mg per tablet 07-31 00:00: 00 02-22 00:00 :00 No TOME JENNIFER TABLETA POR V?A ORAL DOS VECES AL D?A [facility] glipiZIDE 10 mg tablet 07-31 00:00: 00 02-22 00:00 :00 No 10mg Take 1 tablet by mouth 2 (two) times daily. [facility] VITAMIN D2 50,000 unit capsule 07-18 00:00: 00 Yes TAKE 1 CAPSULE ONCE A WEEK FOR 13 WEEKS [facility] alendronate 10 mg tablet 07-17 00:00: 00 Yes 10mg Take 1 tablet by mouth daily. [facility] Vital Signs Vital Name Observation Time Observation Value Comments S ourjean carlos Systolic blood pressure 2024-03-12 20:46:00 160 mm[Hg] [facility] Diastolic blood pressure 2024-03-12 20:46:00 88 mm[Hg] [facility] Heart rate 2024-03-12 20:44:00 83 /min [facility] Body temperature 2024-03-12 20:44:00 35.94 Fidelia [facility] Body height 2024-03-12 20:44:00 154.9 cm [facility] Body weight 2024-03-12 20:44:00 78.472 kg [facility] BMI 2024-03-12 20:44:00 32.69 kg/m2 [facility] Oxygen saturation in Arterial blood by Pulse oximetry 2024-03-12 20:44:00 96 /min [facility] Systolic blood pressure 2023-12-07 15:28:00 130 mm[Hg] [facility] Diastolic blood pressure 2023-12-07 15:28:00 74 mm[Hg] [facility] Heart rate 2023-12-07 15:28:00 89 /min [facility] Body height 2023-12-07 15:28:00 157.5 cm [facility] Body weight 2023-12-07 15:28:00 77.837 kg [facility] BMI 2023-12-07 15:28:00 31.39 kg/m2 [facility] Oxygen saturation in Arterial blood by Pulse oximetry 2023-12-07 15:28:00 95 /min [facility] Systolic blood pressure 2023-08-24 15:42:00 135 mm[Hg] [facility] Diastolic blood pressure 2023-08-24 15:42:00 75 mm[Hg] [facility] Heart rate 2023-08-24 15:41:00 83 /min [facility] Body height 2023-08-24 15:41:00 157.5 cm [facility] Body weight 2023-08-24 15:41:00 77.747 kg [facility] BMI 2023-08-24 15:41:00 31.35 kg/m2 [facility] Oxygen saturation in Arterial blood by Pulse oximetry 2023-08-24 15:41:00 97 /min [facility] Systolic blood pressure 2023-06-01 16:39:00 138 mm[Hg] [facility] Diastolic blood pressure 2023-06-01 16:39:00 89 mm[Hg] [facility] Heart rate 2023-06-01 16:39:00 98 /min [facility] Body temperature 2023-06-01 16:39:00 35.89 Fidelia [facility] Respiratory rate 2023-06-01 16:39:00 16 /min [facility] Body height 2023-06-01 16:39:00 157.5 cm [facility] Body weight 2023-06-01 16:39:00 77.202 kg [facility] BMI 2023-06-01 16:39:00 31.13 kg/m2 [facility] Oxygen saturation in Arterial blood by Pulse oximetry 2023-06-01 16:39:00 98 /min [facility] Systolic blood pressure 2023-02-22 16:57:00 138 mm[Hg] [facility] Diastolic blood pressure 2023-02-22 16:57:00 77 mm[Hg] [facility] Heart rate 2023-02-22 16:57:00 93 /min [facility] Body temperature 2023-02-22 16:57:00 36 Fidelia [facility] Respiratory rate 2023-02-22 16:57:00 16 /min [facility] Body height 2023-02-22 16:57:00 157.5 cm [facility] Body weight 2023-02-22 16:57:00 72.621 kg [facility] BMI 2023-02-22 16:57:00 29.28 kg/m2 [facility] Oxygen saturation in Arterial blood by Pulse oximetry 2023-02-22 16:57:00 97 /min [facility] Procedures Procedure Date / Time Performed Performing Clinicia n Source POCT GLUCOSE(AGE >30DAYS) 2023-12-07 00:00:00 Salud Salgado [facility] POCT HEMOGLOBIN A1C TEST 2023-12-07 00:00:00 Salud Salgado [facility] POCT HEMOGLOBIN A1C TEST 2023-06-01 17:00:00 Salud Salgado [facility] CONSENT/REFUSAL FOR DIAGNOSIS AND TREATMENT 2023-06-01 16:20:12 Doctor Unassigned, [place] [facility] REFERRAL- REQUEST/RESPONSE 2022-12-27 05:01:00 Doctor Unassigned, [place] [facility] REFERRAL- REQUEST/RESPONSE 2022-08-24 05:01:00 Doctor Unassigned, [place] [facility] [id number] 2022-04-27 00:00:[address] [facility] [id number] 2022-04-27 00:00:00 [facility] [id number] 2022-04-27 00:00:00 [facility] XR ANKLE 3+ VW LEFT 2020-10-14 18:55:23 [facility]W [facility] 2020-10-14 18:55:12 Leslie Martinez [facility] XR KNEE 3 VW LEFT 2020-10-14 18:54:59 Leslie Martinez [facility] ASSIGNMENT OF BENEFITS 2020-10-14 18:28:36 Docto r Unassigned, [place] [facility] Encounters Start Date/Time End Date/Time Encounter Type Admission Type Attending [facility] Care Facility Care Department Encounter ID Source 2024-04-11 10:30:00 2024-04-11 10:30:00 Outpatient RANCHO DURÁN [facility] [id number] [facility] 2024-04-10 00:00:00 2024-04-11 07:52:[address] [facility] 1..840.114 350.1.13.10 4.2.7.2.686 [id number] [facility] 2024-03-12 15:30:00 2024-03-12 16:00:00 Office Visit [place] [facility] 1..840.114 350.1.13.10 4.2.7.2.686 [id number] [facility] 2024-03-12 15:30:00 2024-03-12 15:30:00 Outpatient [facility] [id number] [facility] 2023-12-07 00:00:00 2023-12-07 13:25:40 Telephone Salud Salgado [facility] 1.2.840.114 350.1.13.10 4.2.7.2.686 [id number] [facility] 2023-12-07 10:00:00 2023-12-07 10:30:00 Office Visit Sebas Salgadod Luna [facility] 1.2.840.114 350.1.13.10 4.2.7.2.686 [id number] [facility] 2023-12-07 10:00:00 2023-12-07 10:00:00 Outpatient R SALUD SALGADO [facility] [id number] [facility] 2023-12-04 00:00:00 2023-12-04 09:23:00 Telephone Salud Salgado Luna [facility] 1.2.840.114 350.1.13.10 4.2.7.2.686 [id number] [facility] 2023-10-02 00:00:00 2023-10-02 00:00:00 Refill DamianPhilBrannon Luna [facility] 1.2.840.114 350.1.13.10 4.2.7.2.686 [id number] [facility] 2023-08-24 10:30:00 2023-08-24 11:00:00 Office Visit DamianPhilBrannon Luna [facility] 1.2.840.114 350.1.13.10 4.2.7.2.686 [id number] [facility] 2023-08-24 10:30:00 2023-08-24 10:30:00 Outpatient R SALUD SALGADO [facility] [id number] [facility] 2023-08-01 00:00:00 2023-08-01 00:00:00 Telephone Salud Salgado [facility] 1.2.840.114 350.1.13.10 4.2.7.2.686 [id number] [facility] 2023-08-01 00:00:00 2023-08-01 00:00:00 Nurse Triage Maribel Samaniego [facility] 1.2.840.114 350.1.13.10 4.2.7.2.686 [id number] [facility] 2023-08-01 00:00:00 2023-08-01 00:00:00 Telephone Salud Salgado [facility] 1.2.840.114 350.1.13.10 4.2.7.2.686 [id number] [facility] 2023-08-01 00:00:00 2023-08-01 00:00:00 Refill Salud Salgado Luna [facility] 1.2.840.114 350.1.13.10 4.2.7.2.686 [id number] [facility] 2023-08-01 00:00:00 2023-08-01 00:00:00 Refill Salud Salgado [facility] 1.2.840.114 350.1.13.10 4.2.7.2.686 [id number] [facility] 2023-08-01 00:00:00 2023-08-01 00:00:00 Refill DamianAnant sorianomad Luna [facility] 1.2.840.114 350.1.13.10 4.2.7.2.686 [id number] [facility] 2023-06-01 10:30:00 2023-06-01 11:00:00 Office Visit Salud Salgado [facility] 1.2.840.114 350.1.13.10 4.2.7.2.686 [id number] [facility] 2023-06-01 10:30:00 2023-06-01 10:30:00 Outpatient R SALUD SALGADO [facility] [id number] [facility] 2023-06-01 00:00:00 2023-06-01 00:00:00 Orders Only Doctor Unassigned, [place] [facility] 1.2.840.114 350.1.13.10 4.2.7.2.686 [id number] [facility] 2023-04-19 09:00:00 2023-04-19 09:00:00 Office Visit JACEK MCNAMARA [facility] 1.2.840.114 350.1.13.58 9.2.7.2.686 [id number] [facility] 2023-03-15 09:15:00 2023-03-15 10:38:22 Office Visit JACEK MCNAMARA [facility] 1.2.840.114 350.1.13.58 9.2.7.2.686 [id number] [facility] 2023-02-22 10:30:00 2023-02-22 11:00:00 Office Visit Salud Salgado [facility] 1.2.840.114 350.1.13.10 4.2.7.2.686 [id number] [facility] 2023-02-22 10:30:00 2023-02-22 10:30:00 Outpatient SALUD MILLER [facility] [id number] [facility] 2023-02-15 11:00:00 2023-02-15 11:00:00 Outpatient SALUD MILLER [facility] [id number] [facility] 2022-12-27 00:00:00 2022-12-27 00:00:00 Orders Only Doctor Unassigned, [place] [facility] 1.2.840.114 350.1.13.10 4.2.7.2.686 [id number] [facility] 2022-08-27 00:00:00 2022-08-27 00:00:00 Patient Secure Msg Doctor Unassigned, [place] [facility] 1.2.840.114 350.1.13.10 4.2.7.2.686 [id number] [facility] 2022-08-24 00:00:00 2022-08-24 00:00:00 Orders Only Doctor Unassigned, [place] [facility] 1.2.840.114 350.1.13.10 4.2.7.2.686 [id number] [facility] 2022-04-27 23:31:00 2022-04-29 15:15:00 In[facility] [facility] [id number] [facility] 2020-10-14 13:34:04 2020-10-14 23:59:00 Hospital Encounter Leslie Martinez [facility] 1.2.840.114 350.1.13.10 4.2.7.2.686 [id number] [facility] 2020-10-14 13:33:50 2020-10-14 13:33:50 Hospital Encounter Juan [facility] 1.2.840.114 350.1.13.10 4.2.7.2.686 [id number] [facility] 2020-10-14 13:30:00 2020-10-14 13:32:00 Hospital Encounter Juan [facility] 1.2.840.114 350.1.13.10 4.2.7.2.686 [id number] [facility] 2020-10-14 00:00:00 2020-10-14 00:00:00 Outpatient LESLIE [facility] [id number] [facility] 2020-10-14 00:00:00 2020-10-14 00:00:00 Orders Only Doctor Unassigned, [place] [facility] 1.2.840.114 350.1.13.10 4.2.7.2.686 [id number] [facility] Results Test Description Test Time Test Comments Results Result Co mments Source [facility](Age >30days)2023-12-07 15:56:00* Test Item Value Reference Range Interpretation Comme [facility] POCT Glu (age>30days) (test code = 3342) 204 mg/dL 70-110 A Lab Interpretation (test cod e = 15434-7) Abnormal General acute hospital Hemoglobin A1C [id number] 17:00:00* Test Item Value Reference Range Interpretation Comme [facility] POCT HBA1C (test code = 4548-4) 10.4 % 4-6 A Lab Interpretation (test cod e = 99105-5) Abnormal General acute hospital Hemoglobin A1C [id number] 17:00:00* Test Item Value Reference Range Interpretation Comme [facility] POCT HBA1C (test code = 4548-4) 10.4 % 4-6 A Lab Interpretation (test cod e = 57461-4) Abnormal [facility] [id number] 04:54:53* Test Item Value Reference Range Interpretation Comme [facility] GLUCOSE (test code = 2217) 188 MG/DL 70-99 H BUN (test code = 2208) 35 MG/DL 8-23 H CREATININE (test code = 2214) 1.31 MG/DL 0.60-1.30 H eGFR (2020 CKD-EPI) (test code = 51124) 43 ML/MIN/1.73 >60 L CALC BUN/CREAT (test code = 2235) 27 RATIO 6-28 SODIUM (test code = 2231) 143 MEQ/L 133-146 POTASSIUM (test code = 2228) 4.8 MEQ/L 3.5-5.4 CHLORIDE (test code = 2215) 107 MEQ/L 95-107 CARBON DIOXIDE (test code = 6) 21 MEQ/L 19-31 CALCIUM (test code = 2208) 10.0 MG/DL 8.5-10.5 PROTEIN, TOTAL (test code = 2228) 7.9 G/DL 6.1-8.3 ALBUMIN (test code = 2200) 4.6 G/DL 3.5-5.2 CALC GLOBULIN (test code = 2239) 3.3 G/DL 1.9-3.7 CALC A/G RATIO (test code = 2233) 1.4 RATIO 1.0-2.6 BILIRUBIN, TOTAL (test code = 2206) 0.3 MG/DL See_Comment [Automated me ssage] The system which generated this result transmitted reference range: <=1.2. The reference range was not used to interpret this result as normal/abnormal. ALKALINE PHOSPHATASE (test code = 2203) 128 U/L 40-142 AST (test code = 2217) 23 U/L 9-40 ALT (test code = 2218) 25 U/L 5-40 HEMOGLOBIN [id number] 04:20:26* Test Item Value Reference Range Interpretation Comme nts HEMOGLOBIN A1c (test code = 91166) 7.6 % 4.2-5.6 H [employer] ASS[employer]IATION GUIDELINES FOR HGB A1C: PREDIABETES/INCREASED RISK . . . . . . . 5.7-6.4% DIAGNOSIS OF DIABETES . . . . . . . . . >=6.5% WITH CONFIRMATION OR APPROPRIATE SYMPTOMS NOTE: ASSAY MAY BE AFFECTED BY HEMOGLOBINOPATHIES (SICKLE CELL ANEMIA, S-C DISEASE, OTHERS) OR ARTIFICIALLY LOWERED BY DECREASED RED CELL SURVIVAL (HEMOLYTIC ANEMIAS, BLOOD LOSS, ETC.). CONSIDER ALTERNATE TESTING OR LABORATORY CONSULTATION. ALBUMIN/CREATININE RATIO, URINE, [id number] 03:01:49* Test Item Value Reference Range Interpretation Comme nts CREATININE, URINE, CONC. (test code = 2072) 94.0 MG/DL NOT ESTAB ALBUMIN, URINE, RANDOM (test code = 08537) 37.3 MG/DL NOT ESTAB CALC ALBUMIN/CREAT, RND (test code = 85637) 397 MG/G <30 H Note: Albumin/Cr eatinine ratio reference interval reflects ADA and NKF guidelines. [facility] has important pathology staff changes effective 08/02/2022. New pathology staff will provide uninterrupted, excellent patient care and clinical consultation. See URL: [email or web address]. UNLESS OTHERWISE INDICATED, ALL TESTING PERFORMED AT [facility] [address] [place] [address] ARTIST AND REPERTOIRE MANAGER: KEN NEWMAN M.D. [place] NUMBER [id number] [facility] [place]. [id number] CBC W/AUTO DIFF WITH [id number] 08:51:31* Test Item Value Reference Range Interpretation Comme [...] 13.4 % 11.5-15.0 NEUTROPHILS (test code = 1008) 51.1 % LYMPHOCYTES (test code = 1010) 37.8 % MONOCYTES (test code = 1011) 7.5 % EOSINOPHILS (test code = 1012) 2.4 % BASOPHILS (test code = 1013) 0.4 % IMMATURE GRANULOCYTES (test code = 1036) 0.8 % NUCLEATED RBCS (test code = 1065) 0.0 /100 WBC'S See_Comment [Automated message] The system which generated this result transmitted reference range: 0.0. The reference range was not used to interpret this result as normal/abnormal. PLATELET COUNT (test code = 1015) 266 K/UL 130-400 ABSOLUTE NEUTROPHILS (test code = 1066) 4.77 K/UL 1.50-7.50 ABSOLUTE LYMPHOCYTES (test code = 1067) 3.53 K/UL 1.00-4.00 ABSOLUTE MONOCYTES (test code = 1068) 0.70 K/UL 0.20-1.00 ABSOLUTE EOSINOPHILS (test code = 1040) 0.22 K/UL 0.00-0.50 ABSOLUTE BASOPHILS (test code = 1069) 0.04 K/UL 0.00-0.20 ABS IMMATURE GRANULOCYTES (test code = 1020) 0.07 K/UL 0.00-0.10 ABS NUCLEATED RBCS (test code = 21303) 0.00 K/UL 0.00-0.11 PROTHROMBIN TIME (PT)2022-05-26 04:26:22* Test Item Value Reference Range Interpretation Comme nts PROTHROMBIN TIME (PT) (test code = 1402) 13.2 SECONDS 12.5-14.7 INR (test code = 63406) 1.0 SEE BELOW CURRENT RECOMMENDATIONS ARE FOR AN INR OF 2.0-3.0 FOR ALL PATIENTS ON VITAMIN K ANTAGONISTS, EXCEPT THOSE WITH PROSTHETIC HEART VALVES, FOR WHOM INR OF 2.5-3.5 IS RECOMMENDED. UNLESS OTHERWISE INDICATED, ALL TESTING PERFORMED [facility] [address] [place] [address] ARTIST AND REPERTOIRE MANAGER: KEN NEWMAN M.D. CLIA NUMBER [id number] [facility] [place]. [id number] 10:13:00* Test Item Value Reference Range Interpretation Comme nts GLUBED (test code = GLUBED) 250 mg/dL 74-106 H Performed by cer tified shell trim operator at [facility] COMPREHENSIVE METABOLIC [id number] 02:19:00* Test Item Value Reference Range Interpretation Comme nts SODIUM (test code = NA) 138 mmol/L 136-145 N POTASSIUM (test code = K) 4.2 mmol/L 3.5-5.1 N CHLORIDE (test code = CL) 110.0 mmol/L 98-107 H CARBON DIOXIDE (test code = CO2) 20.0 mmol/L 21-32 L ANION GAP (test code = GAP) 12.2 10-20 N GLUCOSE (test code = GLU) 139 mg/dL 74-106 H BLOOD UREA NITROGEN (test code = BUN) 18 mg/dL 7-18 RESULT VERIFIE D BY REPEAT ANALYSIS GLOMERULAR FILTRATION RATE (test code = GFR) 53 mL/min See_Comment The Glomerular Filtration Rate is a calculated parameterbased on serum Creatinine, patient age and sex. GFR valuesless than 60 mL/min/1.73 square meters are indicative ofChronic Kidney Disease. Values less than 15 mL/min/1.73square meters indicate Kidney failure. The calculation forGFR is based on the CKD-EPI (2020) calculation. This formulais race indifferent and is the recommended formula for GFRby the National Kidney Foundation for Adults.The GFR will not calculate if the sex is unknown or if thepatient's age is <18 years. [Automated message] The system which generated this result transmitted reference range: >=60. The reference range was not used to interpret this result as normal/abnormal. CREATININE (test code = CREAT) 1.10 mg/dL 0.55-1.02 H Note change in reference range due to change in reagent. BUN/CREATININE RATIO (test code = BUN/CREA) 16.4 10-20 N TOTAL PROTEIN (test code = PROT) 6.4 gram/dL 6.4-8.2 N ALBUMIN (test code = ALB) 3.0 g/dL 3.4-5.0 L GLOBULIN (test code = GLOB) 3.4 gram/dL 2.7-4.2 N ALBUMIN/GLOBULIN RATIO (test code = A/G) 0.9 0.75-1.50 N CALCIUM (test code = CA) 8.1 mg/dL 8.5-10.1 L BILIRUBIN TOTAL (test code = BILT) 0.50 mg/dL 0.0-1.0 N SGOT/AST (test code = AST) 13 IUnit/L 15-37 L SGPT/ALT (test code = ALT) < 7 IUnit/L 12-78 L ALKALINE PHOSPHATASE TOTAL (test code = ALKP) 92 IUnit/L 45-117 N Note change in reference range due to change in reagent. [id number] 02:19:00* Test Item Value Reference Range Interpretation Comme nts PHOSPHORUS (test code = PHOS) 3.2 mg/dL 2.5-4.9 N [id number] 02:19:00* Test Item Value Reference Range Interpretation Comme nts MAGNESIUM (test code = MAG) 1.9 mg/dL 1.8-2.4 N CBC W/AUTO [id number] 01:57:00* Test Item Value Reference Range Interpretation Comme nts WHITE BLOOD CELL (test code = WBC) 5.9 K/mm3 4.5-12.5 N RED BLOOD CELL (test code = RBC) 3.66 mill/mm3 3.7-5.2 L HEMOGLOBIN (test code = HGB) 11.2 gram/dL 11.5-15.5 L HEMATOCRIT (test code = HCT) 33.8 % 36.0-46.0 L MEAN CELL VOLUME (test code = MCV) 92.3 fL 80-98 N MEAN CELL HGB (test code = MCH) 30.6 picogram 27.0-33.0 N MEAN CELL HGB CONCETRATION (test code = MCHC) 33.1 gram/dL 33.0-36.0 N RED CELL DISTRIBUTION WIDTH (test code = RDW) 13.5 % 11.6-16.2 N RED CELL DISTRIBUTION WIDTH SD (test code = RDW-SD) 45.5 fL 37.0-51.0 N PLATELET COUNT (test code = PLT) 216 K/mm3 150-450 N MEAN PLATELET VOLUME (test c ode = MPV) 10.7 fL 6.7-11.0 N NEUTROPHIL % (test code = NT%) 45.7 % 39.0-69.0 N IMMATURE GRANULOCYTE % (test code = IG%) 0.3 % 0.0-5.0 N LYMPHOCYTE % (test code = LY%) 41.5 % 25.0-55.0 N MONOCYTE % (test code = MO%) 9.2 % 0.0-10.0 N EOSINOPHIL % (test code = EO%) 2.6 % 0.0-5.0 N BASOPHIL % (test code = BA%) 0.7 % 0.0-1.0 N NUCLEATED RBC % (test code = NRBC%) 0.0 % 0-0 N NEUTROPHIL # (test code = NT#) 2.69 K/mm3 1.8-7.7 N IMMATURE GRANULOCYTE # (test code = IG#) 0.02 x10 3/uL 0-0.03 N LYMPHOCYTE # (test code = LY#) 2.44 K/mm3 1.0-5.0 N MONOCYTE # (test code = MO#) 0.54 K/mm3 0-0.8 N EOSINOPHIL # (test code = EO#) 0.15 K/mm3 0.0-0.5 N BASOPHIL # (test code = BA#) 0.04 K/mm3 0.0-0.2 N NUCLEATED RBC # (test code = NRBC#) 0.00 K/mm3 0.0-0.1 N [id number] 20:58:00* Test Item Value Reference Range Interpretation Comme nts GLUBED (test code = GLUBED) 188 mg/dL 74-106 H Performed by cer tified shell trim operator at [facility] [id number] 16:11:00* Test Item Value Reference Range Interpretation Comme nts GLUBED (test code = GLUBED) 199 mg/dL 74-106 H Performed by cer tified shell trim operator at [facility] [id number] 11:25:00* Test Item Value Reference Range Interpretation Comme nts GLUBED (test code = GLUBED) 137 mg/dL 74-106 H Performed by cer tified shell trim operator at [facility] - XR CHEST 1 [id number] 07:47:00 [facility] (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 Bones: No acute skeletalabnormality is identified. There are degenerative changes of the thoracic spine. Upper abdomen: Within normal limits IMPRESSION: Lung base atelectasis at 1075 Reported and signed by: Tamir Gibbons M.D. CC: Kari Groves MD; Sophie Torres NP Technologist: Jt LAWRENCE(R) Trnscrd Date/Time/By: 04/28/2022 (0747) : By: [email or web address] Orig Print D/T: S: 04/28/2022 (0750) PAGE 1 Signed [id number] 07:24:00* Test Item Value Reference Range Interpretation Comme nts GLUBED (test code = GLUBED) 230 mg/dL 74-106 H Performed by cer tified shell trim operator at [facility] POC CALCIUM [id number] 05:59:00* Test Item Value Reference Range Interpretation Comme nts POC CALCIUM IONIZED (test co de = CAIP) 1.19 mmol/L 1.12-1.32 N CALCIUM [id number] 05:33:00* Test Item Value Reference Range Interpretation Comme nts CALCIUM IONIZED (test code = DEMETRIA) mmol/L 1.12-1.32 [id number] 05:33:00* Test Item Value Reference Range Interpretation Comme nts GLYCOSYLATED HEMOGLOBIN (HA1C) (test code = GLYHGB) 8.4 % HbA1 SUGGESTED DIAGNO SIS: HbA1C (%) ----- Diabetic >6.4Prediabetes 5.7 - 6.4Normal <5.7 ESTIMATED AVERAGE GLUCOSE (test code = EAG) 194 MG/DL COMPREHENSIVE METABOLIC [id number] 05:20:00* Test Item Value Reference Range Interpretation Comme nts SODIUM (test code = NA) 138 mmol/L 136-145 N POTASSIUM (test code = K) 4.5 mmol/L 3.5-5.1 N CHLORIDE (test code = CL) 106.0 mmol/L 98-107 N CARBON DIOXIDE (test code = CO2) 19.0 mmol/L 21-32 L ANION GAP (test code = GAP) 17.5 10-20 N GLUCOSE (test code = GLU) 334 mg/dL 74-106 H BLOOD UREA NITROGEN (test code = BUN) 38 mg/dL 7-18 H GLOMERULAR FILTRATION RATE (test code = GFR) 34 mL/min See_Comment The Glomerular Filtration Rate is a calculated parameterbased on serum Creatinine, patient age and sex. GFR valuesless than 60 mL/min/1.73 square meters are indicative ofChronic Kidney Disease. Values less than 15 mL/min/1.73square meters indicate Kidney failure. The calculation forGFR is based on the CKD-EPI (2020) calculation. This formulais race indifferent and is the recommended formula for GFRby the National Kidney Foundation for Adults.The GFR will not calculate if the sex is unknown or if thepatient's age is <18 years. [Automated message] The system which generated this result transmitted reference range: >=60. The reference range was not used to interpret this result as normal/abnormal. CREATININE (test code = CREAT) 1.60 mg/dL 0.55-1.02 H Note change in reference range due to change in reagent. BUN/CREATININE RATIO (test code = BUN/CREA) 24.2 10-20 H TOTAL PROTEIN (test code = PROT) 6.6 gram/dL 6.4-8.2 N ALBUMIN (test code = ALB) 3.1 g/dL 3.4-5.0 L GLOBULIN (test code = GLOB) 3.5 gram/dL 2.7-4.2 N ALBUMIN/GLOBULIN RATIO (test code = A/G) 0.9 0.75-1.50 N CALCIUM (test code = CA) 8.4 mg/dL 8.5-10.1 L BILIRUBIN TOTAL (test code = BILT) 0.20 mg/dL 0.0-1.0 N SGOT/AST (test code = AST) 11 IUnit/L 15-37 L SGPT/ALT (test code = ALT) 8 IUnit/L 12-78 L ALKALINE PHOSPHATASE TOTAL (test code = ALKP) 102 IUnit/L 45-117 N Note change in reference range due to change in reagent. [id number] 05:20:00* Test Item Value Reference Range Interpretation Comme nts PHOSPHORUS (test code = PHOS) 3.7 mg/dL 2.5-4.9 N [id number] 05:20:00* Test Item Value Reference Range Interpretation Comme nts MAGNESIUM (test code = MAG) 1.7 mg/dL 1.8-2.4 L CBC W/AUTO [id number] 05:10:00* Test Item Value Reference Range Interpretation Comme nts WHITE BLOOD CELL (test code = WBC) 8.4 K/mm3 4.5-12.5 N RED BLOOD CELL (test code = RBC) 3.81 mill/mm3 3.7-5.2 N HEMOGLOBIN (test code = HGB) 11.4 gram/dL 11.5-15.5 L HEMATOCRIT (test code = HCT) 34.9 % 36.0-46.0 L MEAN CELL VOLUME (test code = MCV) 91.6 fL 80-98 N MEAN CELL HGB (test code = MCH) 29.9 picogram 27.0-33.0 N MEAN CELL HGB CONCETRATION (test code = MCHC) 32.7 gram/dL 33.0-36.0 L RED CELL DISTRIBUTION WIDTH (test code = RDW) 13.3 % 11.6-16.2 N RED CELL DISTRIBUTION WIDTH SD (test code = RDW-SD) 45.1 fL 37.0-51.0 N PLATELET COUNT (test code = PLT) 224 K/mm3 150-450 N MEAN PLATELET VOLUME (test c ode = MPV) 11.3 fL 6.7-11.0 H NEUTROPHIL % (test code = NT%) 66.4 % 39.0-69.0 N IMMATURE GRANULOCYTE % (test code = IG%) 0.4 % 0.0-5.0 N LYMPHOCYTE % (test code = LY%) 25.4 % 25.0-55.0 N MONOCYTE % (test code = MO%) 6.8 % 0.0-10.0 N EOSINOPHIL % (test code = EO%) 0.6 % 0.0-5.0 N BASOPHIL % (test code = BA%) 0.4 % 0.0-1.0 N NUCLEATED RBC % (test code = NRBC%) 0.0 % 0-0 N NEUTROPHIL # (test code = NT#) 5.56 K/mm3 1.8-7.7 N IMMATURE GRANULOCYTE # (test code = IG#) 0.03 x10 3/uL 0-0.03 N LYMPHOCYTE # (test code = LY#) 2.13 K/mm3 1.0-5.0 N MONOCYTE # (test code = MO#) 0.57 K/mm3 0-0.8 N EOSINOPHIL # (test code = EO#) 0.05 K/mm3 0.0-0.5 N BASOPHIL # (test code = BA#) 0.03 K/mm3 0.0-0.2 N NUCLEATED RBC # (test code = NRBC#) 0.00 K/mm3 0.0-0.1 N HEPATIC FUNCTION [id number] 23:51:00* Test Item Value Reference Range Interpretation Comme nts TOTAL PROTEIN (test code = PROT) 7.4 gram/dL 6.4-8.2 N ALBUMIN (test code = ALB) 3.4 g/dL 3.4-5.0 N GLOBULIN (test code = GLOB) 4.0 gram/dL 2.7-4.2 N ALBUMIN/GLOBULIN RATIO (test code = A/G) 0.8 0.75-1.50 N BILIRUBIN TOTAL (test code = BILT) 0.30 mg/dL 0.0-1.0 N BILIRUBIN DIRECT (test code = BILD) < 0.10 mg/dL 0.0-0.20 N SGOT/AST (test code = AST) 17 IUnit/L 15-37 N SGPT/ALT (test code = ALT) 9 IUnit/L 12-78 L ALKALINE PHOSPHATASE TOTAL (test code = ALKP) 103 IUnit/L 45-117 N Note change in reference range due to change in reagent. [id number] 23:51:00* Test Item Value Reference Range Interpretation Comme nts LIPASE (test code = LIP) 79 U/L 12.00-57.00 H [id number] 23:51:00* Test Item Value Reference Range Interpretation Comme nts MAGNESIUM (test code = MAG) 1.8 mg/dL 1.8-2.4 N [id number] 23:51:00* Test Item Value Reference Range Interpretation Comme nts TROPONIN-HS (test code = TROPI) <4.0 pg/mL 0-45 N CAUTION: Units o f the current test methodology (pg/mL)differ from the prior test methodology (ng/mL) by a factorof 1000. BASIC METABOLIC [id number] 23:51:00* Test Item Value Reference Range Interpretation Comme nts SODIUM (test code = NA) 136 mmol/L 136-145 N POTASSIUM (test code = K) 4.6 mmol/L 3.5-5.1 N CHLORIDE (test code = CL) 105.0 mmol/L 98-107 N CARBON DIOXIDE (test code = CO2) 17.0 mmol/L 21-32 L ANION GAP (test code = GAP) 18.6 10-20 N GLUCOSE (test code = GLU) 298 mg/dL 74-106 H BLOOD UREA NITROGEN (test code = BUN) 37 mg/dL 7-18 H GLOMERULAR FILTRATION RATE (test code = GFR) 37 mL/min See_Comment The Glomerular Filtration Rate is a calculated parameterbased on serum Creatinine, patient age and sex. GFR valuesless than 60 mL/min/1.73 square meters are indicative ofChronic Kidney Disease. Values less than 15 mL/min/1.73square meters indicate Kidney failure. The calculation forGFR is based on the CKD-EPI (202) calculation. This formulais race indifferent and is the recommended formula for GFRby the National Kidney Foundation for Adults.The GFR will not calculate if the sex is unknown or if thepatient's age is <18 years. [Automated message] The system which generated this result transmitted reference range: >=60. The reference range was not used to interpret this result as normal/abnormal. CREATININE (test code = CREAT) 1.50 mg/dL 0.55-1.02 H Note change in reference range due to change in reagent. BUN/CREATININE RATIO (test code = BUN/CREA) 24.8 10-20 H CALCIUM (test code = CA) 9.0 mg/dL 8.5-10.1 N PROTHROMBIN [id number] 23:43:00* Test Item Value Reference Range Interpretation Comme nts PROTHROMBIN TIME PATIENT (test code = PTP) 12.0 seconds 9.0-14.0 N INTERNATIONAL NORMAL RATIO (test code = INR) 1.1 0.8-1.2 N The therapeutic range for oral anticoagulant therapy formost indications is an international normalized ratio (INR)of between 2.0 and 3.0. The recommended therapeutic INRrange for various clinical situations is listed below: Clinical Situation INR range Pulmonary embolism treatment (2.0-3.0)Venous thrombosis treatmentVenous thrombosis prophylaxis (high risk surgery)Prevention of systemic embolism from: Acute myocardial infarction Valvular heart disease Atrial fibrillation Mechanical prosthetic heart valves (2.5-3.5) IS PATIENT ON ANTICOAGULANTS? NTHROMBOPLASTIN TIME [id number] 23:43:00* Test Item Value Reference Range Interpretation Comme nts THROMBOPLASTIN TIME PARTIAL (test code = PTT) 22.4 seconds 23.0-37.0 L IS PATIENT ON ANTICOAGULANTS? NCBC W/O [id number] 23:42:00* Test Item Value Reference Range Interpretation Comme nts WHITE BLOOD CELL (test code = WBC) 7.6 K/mm3 4.5-12.5 N RED BLOOD CELL (test code = RBC) 4.08 mill/mm3 3.7-5.2 N HEMOGLOBIN (test code = HGB) 12.4 gram/dL 11.5-15.5 N HEMATOCRIT (test code = HCT) 37.9 % 36.0-46.0 N MEAN CELL VOLUME (test code = MCV) 92.9 fL 80-98 N MEAN CELL HGB (test code = MCH) 30.4 picogram 27.0-33.0 N MEAN CELL HGB CONCETRATION (test code = MCHC) 32.7 gram/dL 33.0-36.0 L RED CELL DISTRIBUTION WIDTH (test code = RDW) 13.3 % 11.6-16.2 N PLATELET COUNT (test code = PLT) 230 K/mm3 150-450 N MEAN PLATELET VOLUME (test c ode = MPV) 10.8 fL 6.7-11.0 N - XR CHEST 1 [id number] 23:30:00 [facility] ([facility])Name: ARMEN LOPEZ : 1950 Sex: F FAX: Usha Ramachandran MD [phone] [place]: B St: ADM Name: ARMEN LOPEZ [facility] : 1950 Age/S: 71/F [address] Unit #: [id number] Loc: [place] [address] Phys: Usha Ramachandran MD Acct: [id number] Dis Date: Status: ADM IN PHONE #: [phone] Exam Date: 04/27/2022 2311 FAX #: [phone] Reason: CHEST PAIN EXAMS: CPT CODE: [id number] XR CHEST 1 V [id number] Dictation location: H3 Chest x-ray exam, AP [...] IMPRESSION: No acute finding given technical factors Electronically Signedby Maryam Rehman M.D. on 04/27/2022 at 2330 Reported and signed by: Maryam Rehman M.D. CC: Usha Ramachandran MD Technologist: Jordan LAWRENCE(R) Trnscrd Date/Time/By: 04/27/2022 (2176) : By: [email or web address] Orig Print D/T: S: 04/27/2022 (4008) PAGE 1 Signed ReportHEMOGLOBIN [id number] 04:08:08* Test Item Value Reference Range Interpretation Comme nts HEMOGLOBIN A1c (test code = 52115) 8.3 % 4.2-5.6 H [employer] GUIDELINES FOR HGB A1C: PREDIABETES/INCREASED RISK . . . . . . . 5.7-6.4% DIAGNOSIS OF DIABETES . . . . . . . . . >=6.5% WITH CONFIRMATION OR APPROPRIATE SYMPTOMS NOTE: ASSAY MAY BE AFFECTED BY HEMOGLOBINOPATHIES (SICKLE CELL ANEMIA, S-C DISEASE, OTHERS) OR ARTIFICIALLY LOWERED BY DECREASED RED CELL SURVIVAL (HEMOLYTIC ANEMIAS, BLOOD LOSS, ETC.). CONSIDER ALTERNATE TESTING OR LABORATORY CONSULTATION. UNLESS OTHERWISE INDICATED, ALL TESTING PERFORMED [facility] [address] [place] [id number] ARTIST AND REPERTOIRE MANAGER: KEN NEWMAN M.D. [place] NUMBER [id number] [facility] [place] [place]. [id number] XR KNEE 3 VW [id number] 19:05:24HISTORY: ?Pain. FINDINGS: AP, lateral, oblique views [...] edges of medial femoral/tibial condyles.Small osteophytes also seenalong the upper and lower articular edges ofthe patella with minimal knee joint effusion.No aggressive bone lesions seen. No calcification in the cartilage liningor in the meniscal fibrocartilage.CONC LUSIONS: Mild degenerative arthritis of left knee with minimal jointeffusion. [facility]+ VW [id number] 19:04:18HISTORY: ?Pain. FINDINGS: AP, lateral, oblique views of left ankle showed no acute fractureor dislocation. 5 mm heel spur, retrocalcaneal exostosis within lower tendoAchilles noted. Mild soft tissue swelling along the lateral aspect of theankle and mild degenerative changes in the medial tibiotalarjoint noted.Mild degenerative arthritis are also seen in the talonavicular joint. CONCLUSIONS: No acute fracture or dislocation in left ankle. [facility], [facility] [...] also seen in the talonavicular joint.CONCLUSIONS: No acutefracture or dislocation in left ankle. [facility] H[facility] 3 VW [id number] 19:03:08HISTORY: ?Pain. FINDINGS: AP view of the pelvis, AP and lateral views centered over theleft hip joint showed no acute fracture or dislocation. No sign of AVN inthe femoral heads. Mild degenerative arthritis is noted in the left hipjoint. Sacroiliac joints appear normal. CONCLUSIONS: No acute fracture or dislocation in pelvis or left hip. [facility], [facility] Results Inft User - 10/14/2020 2:04 PM CDTHISTORY: Pain.FINDINGS: AP view of the pelvis, AP and lateral views centered over theleft hip joint showed no acute fracture or dislocation. No sign of AVN inthe femoral heads. Mild degenerative arthritis is noted in the left hipjoint. Sacroiliac joints appear normal.CONCLUSIONS: No acute fracture or dislocation in pelvis or left hip.[facility]
[2024-06-08] MEDS ORDERED: ALBUTEROL 2.5 MG/3 ML NEB SOL ONE ×2 (13:01→15:05)
[2024-06-08] MEDS ORDERED: FAMOTIDINE 20 MG/2 ML VIAL IV ONE (13:01)
[2024-06-08] MEDS ORDERED: NA CHLORIDE 0.9% 500 ML ONE (13:02)
[2024-06-08] MEDS ORDERED: GLUCAGON 1 MG/VIAL ONE (13:02)
[2024-06-08] MEDS ORDERED: CALCIUM GLUCONATE 1 GM IVPB 1 GM/50 ML BAG IV ONE (13:02)
[2024-06-08 13:30] LABS: Absolute Basophils 0.2 K/uL (0-0.5); Absolute Lymphocytes (CBC) 2.2 K/uL (0.7-4.9); Absolute Monocytes 0.6 K/uL (0.1-1.3); Absolute Neutrophil 6.8 K/uL (1.8-8.0); Basophils % 2.2 % (0-1.3); Eosinophils % 0.5 % (0-4.4); Hematocrit 32.9 % (36.0-45.0); Hemoglobin 11.1 g/dL (12.0-15.0); Lymphocytes % 21.9 % (15.3-44.8); MCH 31.3 pg (27.0-35.0); MCHC 33.7 g/dL (32.0-36.0); MCV 92.7 fL (80-100); MPV 9.9 fL (7.6-11.3); Monocytes % 6.4 % (3.3-12.3); Platelets 205 thou/uL (152-406); RBC Red Blood Cell Count 3.55 M/uL (3.86-4.86); Red Cell Distribution Width 13.9 % (12.1-15.2)
[2024-06-08 13:32] LABS: PT Prothrombin Time 12.1 SECONDS (9.4-12.5); Protime INR 1.08
[2024-06-08 13:51] LABS: Albumin 2.7 g/dL (3.4-5.0); Albumin/Globulin Ratio 0.6 (1.1-1.8); Anion Gap 14.6 mEq/L (5.0-15.0); Bilirubin Direct 0.2 mg/dL (0-0.2); Bilirubin Indirect, Calculated 0.4 mg/dL (0.2-0.8); Bilirubin Total 0.6 mg/dL (0.2-1.0); Globulin 4.3 g/dL (2.3-3.5); Magnesium 2.3 mg/dL (1.6-2.4); Potassium 4.6 mEq/L (3.5-5.1)
--- NOTE | 2024-06-08 13:53 | RAD REPORT ---
EXAMINATION: CT HEAD WITHOUT CONTRAST CT CERVICAL SPINE WITHOUT CONTRAST CLINICAL INDICATION: Head and neck injury status post fall. Head and neck pain. Dizziness TECHNIQUE: Axial CT images from the skull base to the vertex without intravenous contrast. Axial CT i mages through the cervical spine were obtained without intravenous contrast. Sagittal and coronal reformatted images were created from the data set. Coronal and sagittal reformatted images were creat ed from the data set. One or more of the following dose reduction techniques were used: Automated exposure control, adjustment of the mA and/or kV according to patient size, and/or iterative reconstr uction. Unless otherwise specified, incidental findings do not require dedicated imaging follow-up. [id number]. Comparison: 2021 FINDINGS: An intracranial bleed is not seen. Ventricles are normal in caliber. Mild low-density within the periventricular, deep and subcortical white matter likely ischemic change s secondary to small vessel disease. No extra-axial fluid collection. No fluid within the sinuses/mastoids No fracture or dislocation is seen involving the cervical spine. IMPRESSION: No acute intracranial abnormality noted A cervical fracture is not seen. If the patient continues to have symptoms to suggest acute OPERATING SYSTEMS SPECIALIST/spinal pathology then MRI would be rec ommended
[2024-06-08 13:54] LABS: Thyroid Stimulating Hormone 4.68 uIU/mL (0.358-3.740)
[2024-06-08 13:56] LABS: Troponin High Sensitivity 5899.3 pg/mL (<58.9)
--- NOTE | 2024-06-08 13:58 | RAD REPORT ---
EXAM: CT CHEST, ABDOMEN AND PELVIS WITHOUT CONTRAST CLINICAL INDICATION: Chest and abdominal pain status post fall TECHNIQUE: CT chest, abdomen and pelvis was performed, without IV contrast, as per department protoco l. Axial, sagittal and coronal reconstructions were obtained. One or more of the following dose reduction techniques were used: Automated exposure control, adjustment of the mA and/or kV according to the patient size, and/or iterative reconstruction. Unless otherwise specified, incidental findings do not require dedicated imaging follow-up. The lack of IV and oral contrast limits evaluation of the mediastinum, otilio, vessels, organs and manuel l. COMPARISON: 2022 FINDINGS: A pulmonary contusion is not present. No mediastinal hematoma seen. No pleural effusion. No pericardial effusion. Liver, spleen, pancreas, adrenals kidneys and bladder do not demonstrate any acute traumatic injury. There is no evidence of diverticulitis Small umbilical hernia IMPRESSION: No acute traumatic injury displayed
--- NOTE | 2024-06-08 14:00 | RAD REPORT ---
Procedure: Chest Single View HISTORY: Cough COMPARISON: 2022 FINDINGS: The lungs appear clear of acute infiltrate. No significant pleural effusion noted. The heart is normal size. IMPRESSION: No acute abnormality is displayed.
[2024-06-08] MEDS ORDERED: CLOPIDOGREL 75 MG TABLET ONE (14:20)
[2024-06-08] MEDS ORDERED: HEPARIN 5000 UNIT/ML 1 ML VIAL ONE (14:20)
[2024-06-08] MEDS ORDERED: FUROSEMIDE 20 MG/ 2ML VIAL ONE (14:20)
[2024-06-08] MEDS ORDERED: FUROSEMIDE 40 MG/4 ML VIAL ONE (14:20)
[2024-06-08] MEDS ORDERED: ASPIRIN 81 MG CHEWABLE TABLET ONE (14:20)
[2024-06-08] MEDS ORDERED: HEPARIN/D5W 25,000 UNIT/500 ML BAG IV ONE (14:21)
--- NOTE | 2024-06-08 14:36 | EDPHYS ---
Physician Documentation [facility] Name: Kinga Singleton Age: 73 yrs Sex: Female : 1950 Arrival Date: 06/08/2024 Time: 12:44 Bed 3 Private MD: ED Physician Murray Nava HPI: 06/08 14:15 This 73 yrs old Female presents to ER via EMS with complaints of Near Syncope. cr 14:15 The patient has experienced near-syncope, felt dizzy, felt generally weak. Onset: The cr symptoms/episode began/occurred just prior to arrival, this morning. Duration: The patient has had multiple episodes, that last an unknown period of time. Context: the episode(s) was witnessed, by family. Associated injury: The patient did not suffer any apparent associated injury. Associated signs and symptoms: The patient has no apparent associated signs or symptoms. Current symptoms: WEAKNESS. The patient has not experienced similar symptoms in the past. Historical: - Allergies: 12:50 No Known Allergies; ko1 - Home Meds: 12:50 Unable to obtain [Active]; ko1 - PMHx: 12:50 Diabetes - IDDM; Hypercholesterolemia; Hypertensive disorder; ko1 - PSHx: 12:50 Total abdominal hysterectomy; ko1 - Immunization history:: Adult Immunizations unknown. - Infectious Disease History:: Denies. - Social history:: Smoking status: Patient denies any tobacco usage or history of. ROS: 14:19 Constitutional: Negative for fever, chills, and weight loss, Eyes: Negative for injury, cr pain, redness, and discharge, ENT: Negative for injury, pain, and discharge, Neck: Negative for injury, pain, and swelling, Respiratory: Negative for shortness of breath, cough, wheezing, and pleuritic chest pain, Abdomen/GI: Negative for abdominal pain, nausea, vomiting, diarrhea, and constipation, Back: Negative for injury and pain, : Negative for injury, bleeding, discharge, and swelling, MS/Extremity: Negative for injury and deformity, Skin: Negative for injury, rash, and discoloration, Psych: Negative for depression, anxiety, suicide ideation, homicidal ideation, and hallucinations, Allergy/Immunology: Negative for hives, rash, and allergies, Endocrine: Negative for neck swelling, polydipsia, polyuria, polyphagia, and marked weight changes, Hematologic/Lymphatic: Negative for swollen nodes, abnormal bleeding, and unusual bruising, 14:19 Cardiovascular: Positive for palpitations, 14:19 Neuro: Positive for near syncope, weakness, Exam: 14:19 Constitutional: This is a well developed, well nourished patient who is awake, alert, cr and in no acute distress. Head/Face: Normocephalic, atraumatic. Eyes: Pupils equal round and reactive to light, extra-ocular motions intact. Lids and lashes normal. Conjunctiva and sclera are non-icteric and not injected. Cornea within normal limits. Periorbital areas with no swelling, redness, or edema. ENT: Nares patent. No nasal discharge, no septal abnormalities noted. Tympanic membranes are normal and external auditory canals are clear. Oropharynx with no redness, swelling, or masses, exudates, or evidence of obstruction, uvula midline. Mucous membranes moist. Neck: Trachea midline, no thyromegaly or masses palpated, and no cervical lymphadenopathy. Supple, full range of motion without nuchal rigidity, or vertebral point tenderness. No Meningismus. Chest/axilla: Normal chest wall appearance and motion. Nontender with no deformity. No lesions are appreciated. Respiratory: Lungs have equal breath sounds bilaterally, clear to auscultation and percussion. No rales, rhonchi or wheezes noted. No increased work of breathing, no retractions or nasal flaring. Abdomen/GI: Soft, non-tender, with normal bowel sounds. No distension or tympany. No guarding or rebound. No evidence of tenderness throughout. Back: No spinal tenderness. No costovertebral tenderness. Full range of motion. Female : Normal external genitalia. Skin: Warm, dry with normal turgor. Normal color with no rashes, no lesions, and no evidence of cellulitis. MS/ Extremity: Pulses equal, no cyanosis. Neurovascular intact. Full, normal range of motion., bilateral aka Psych: Awake, alert, with orientation to person, place and time. Behavior, mood, and affect are within normal limits. 14:19 Cardiovascular: Rate: bradycardic, actual rate is 34 bpm, Rhythm: regular, Pulses: Pulses are 4+ in bilateral radial, brachial, femoral, popliteal, posterior tibial and and dorsalis pedis arteries.. Heart sounds: normal, Edema: is not appreciated, JVD: is not appreciated, 14:19 ECG was reviewed by the Attending Physician. 14:19 Musculoskeletal/extremity: ROM: no acute changes, intact in all extremities, full active range of motion, full passive range of motion, Circulation is intact in all extremities. Sensation intact. Compartment Syndrome exam of affected extremity: is normal. DVT Exam: No signs of deep vein thrombosis. no pain, no swelling, no tenderness, negative Homans' sign noted on exam, no appreciated bluish discoloration, no erythema, no increased warmth, 15:29 ECG was reviewed by the Attending Physician. [facility] Vital Signs: 12:45 BP 88 / 43; Pulse 33; Resp 28; Pulse Ox 94% on 2 lpm NC; db 12:47 BP 101 / 49; Pulse 41; Resp 19; Temp 98.4; Pulse Ox 93% on R/A; ko1 13:00 BP 100 / 47; Pulse 32; Resp 20; Pulse Ox 97% on 2 lpm NC; db 13:15 BP 102 / 44; Pulse 33; Resp 18; Pulse Ox 97% on 2 lpm NC; db 14:00 BP 107 / 49; Pulse 34; Resp 14; Pulse Ox 97% on 5 lpm NC; db 14:10 Weight 63.96 kg; bp 14:36 BP 95 / 39; Pulse 33; Resp 16; Pulse Ox 96% on 3 lpm NC; db 14:45 BP 108 / 40; Pulse 32; Resp 16; Pulse Ox 97% on 4 lpm NC; db 15:00 BP 108 / 53; Pulse 32; Resp 18; Pulse Ox 97% on 3 lpm NC; db NIH Stroke Scale Scores: 14:19 NIHSS Score: 0 cr Laceration: 15:30 Wound Repair of 4.5cm ( 1.8in ) subcutaneous laceration to right arm. Irregularly cr shaped.. Skin/tissue flap noted.. Distal neuro/vascular/tendon intact. Anesthesia: NONE with 0 mls of NONE. Wound prep: Moderate cleansing by me. Skin closed with DRESSED, XEROFORM Prolene using WOUND DRESSING. Dressed with pressure dressing, non-adherent dressing. Patient tolerated well. MDM: 12:46 Medical Screening Exam initiated cr 14:26 Differential diagnosis: arrythmia, dehydration. Differential Diagnosis: aortic cr aneurysm, cardiac arrhythmia, cerebrovascular accident, drug effect, emotional response, GI bleed, idiopathic syncope, sepsis, transient ischemic attack, vasovagal episode. Data reviewed: vital signs, nurses notes, lab test result(s), EKG, radiologic studies, CT scan, plain films. Consideration of Admission/Observation Escalation of care including admission/observation considered. I considered the following discharge prescriptions or medication management in the emergency department Medications were administered in the Emergency Department. See MAR. Independent interpretation of the following test(s) in the Emergency Department EKG: See my EKG interpretation above. Test considered but Not performed: Ultrasound NO ECHO. Historians other than the Patient: EMS: HELPFUL , INFORMED. Daughter/Son: SON, WELL INFORMED, HELPFUL. Family Member: SON. Care significantly affected by the following chronic conditions: Diabetes, Hypertension, Obesity, Chronic Kidney Disease. Counseling: I had a detailed discussion with the patient and/or guardian regarding the historical points, exam findings, and any diagnostic results supporting the discharge/admit diagnosis, lab results, radiology results, the need to transfer to another facility, for higher level of care, [facility] does not immediately have the required specialist. 06/08 12:47 Order name: Basic Metabolic Panel [facility] 06/08 12:47 Order name: CBC with Diff; Complete Time: 13:56 [facility] 06/08 12:47 Order name: LFT's [facility] 06/08 12:47 Order name: Magnesium [facility] 06/08 12:47 Order name: NT PRO-BNP [facility] 06/08 12:47 Order name: PT-INR; Complete Time: 13:56 [facility] 06/08 12:47 Order name: Troponin HS [facility] 06/08 12:47 Order name: TSH [facility] 06/08 12:47 Order name: Lipase [facility] 06/08 13:58 Order name: T4 Free [facility] 06/08 14:12 Order name: Ptt, Activated [facility] 06/08 12:47 Order name: XRAY Chest (1 view); Complete Time: 14:01 [facility] 06/08 13:01 Order name: Head C Spine Mpr Wo Con; Complete Time: 13:56 [facility] 06/08 13:03 Order name: Chest Abd Pelvis Wo Con; Complete Time: 14:01 [facility] 06/08 12:47 Order name: EKG; Complete Time: 12:48 [facility] 06/08 15:05 Order name: EKG; Complete Time: 15:06 [facility] 06/08 12:47 Order name: Cardiac monitoring; Complete Time: 12:53 cr 06/08 12:47 Order name: EKG - Nurse/Tech; Complete Time: 12:53 [facility] 06/08 12:47 Order name: IV Saline Lock; Complete Time: 13:16 06/08 12:47 Order name: Labs collected and sent; Complete Time: 13:16 06/08 12:47 Order name: O2 Per Protocol; Complete Time: 12:53 [facility] 06/08 12:47 Order name: O2 Sat Monitoring; Complete Time: 12:53 [facility] 06/08 14:15 Order name: IV - Large Bore; Complete Time: 15:24 [facility] 06/08 14:58 Order name: Wound Care: CLEAN AND DRESS SKIN TEAR; Complete Time: 15:19 [facility] 06/08 15:05 Order name: EKG - Nurse/Tech; Complete Time: 15:26 cr EC:19 Rate is 34 beats/min. Rhythm is regular. QRS [place] is Normal. MN interval is normal. QRS cr interval is normal. QT interval is normal. No Q waves. No ST changes noted. Clinical impression: Complete heart block. Interpreted by me. Reviewed by me. 15:29 Rate is 34 beats/min. Rhythm is regular. QRS [place] is Normal. QRS interval is normal. QT cr interval is normal. No Q waves. T waves are Normal. No ST changes noted. Clinical impression: Complete heart block. Interpreted by me. Reviewed by me. Administered Medications: 13:10 Drug: Albuterol Inhalation 5 mg Inhalation once Route: Inhalation; ko1 13:16 Drug: NS 0.9% IV 500 ml 500 ml IV at 1 bolus once; to be given as a bolus over 30 ko1 minutes Volume: 500 ml; Route: IV; Rate: 1 bolus; Site: left antecubital; 14:00 Follow up: Response: No adverse reaction; IV Status: Completed infusion; IV Intake: db 500ml 13:16 Drug: Famotidine IVP 20 mg IVP once; dilute with 10 mL 0.9% NaCl; give over 2 minutes ko1 Route: IVP; Site: left antecubital; 15:34 Follow up: Response: No adverse reaction db 13:16 Drug: Glucagon IVP 1 mg IVP once Route: IVP; Site: left antecubital; ko1 15:34 Follow up: Response: No adverse reaction db 13:19 Drug: Calcium Gluconate IVPB 1 grams IVPB once over 20 mins; (mix in NS 100 mL) Route: ko1 IVPB; Infused Over: 20 mins; Site: left antecubital; 14:00 Follow up: Response: No adverse reaction; IV Status: Completed infusion; IV Intake: db 100ml 14:15 CANCELLED (Duplicate Order): mg IVP once; give over 2 minutes cr 14:35 Drug: Heparin (FL Drip) 12 units/kg/hr - ([place] [address] units, D5W IV 500 ml) IV at db calculated rate Per protocol; Max initial rate 1000 units/hr {Co-Signature: ronald (Yelena Ritter RN).} Route: IV; Rate: calculated rate; Site: left hand; 15:32 Follow up: Response: No adverse reaction; IV Status: Infusion continued upon transfer db 14:40 Drug: Furosemide IVP 60 mg IVP once; give over 2 minutes Route: IVP; Site: left forearm;db 15:32 Follow up: Response: No adverse reaction db 15:00 Drug: Atropine IVP 1 mg IVP once Route: IVP; Site: left forearm; db 15:33 Follow up: Response: No adverse reaction db 15:00 Drug: DOPamine IV (400mg/250mL Premix) 5 mcg/kg/min IV at calculated rate See db Administration Instructions; Recommended max rate 20 mcg/kg/min; Titrate 2.5 mcg/kg/min as often as every 5 minutes to achieve goal (see titration policy); Goal parameter MAP greater than 65 mmHg. [*Low doses 1 to 4 mcg/kg/min may result in hypotension, decreased SVR*] {Note: DOPAMINE STARTED AT 2.5 MCG/KG/MIN PER DR. NAVA.} Route: IV; Rate: calculated rate; Site: left forearm; 15:32 Follow up: Response: No adverse reaction; IV Status: Infusion continued upon transfer db 15:05 Drug: Aspirin PO Chewable Tablet 162 mg PO once Route: PO; db 15:33 Follow up: Response: No adverse reaction db 15:05 Drug: Heparin (FL-Bolus No thrombolytic) - HEParin IVP 60 units/kg IVP once; Max 5000 db units {Co-Signature: ronald (Stone, Yelena RN).} Route: IVP; Site: left hand; 15:33 Follow up: Response: No adverse reaction db 15:05 Drug: Boostrix Tdap IM 0.5 ml IM once; as a single dose Route: IM; Site: left deltoid; db 15:32 Follow up: Response: No adverse reaction db 15:05 Drug: Albuterol Inhalation 2.5 mg Inhalation once Route: Inhalation; db 15:05 Drug: morphine IVP or IV 2 mg IVP once over 4 mins Route: IVP; Infused Over: 4 mins; db Site: left forearm; 15:32 Follow up: Response: Pain is decreased db 15:05 Drug: Ondansetron IVP 4 mg IVP once; over 2 minutes Route: IVP; Site: left forearm; db 15:32 Follow up: Response: No adverse reaction db 15:24 Not Given (Physician Discretion): [id number] mg PO once db Disposition Summary: 06/08/24 14:36 Transfer Ordered Notes: Transfer Location: [facility] System cr Reason: Higher level of care cr Condition: Serious cr Problem: new cr Symptoms: are unchanged cr Accepting Physician: TO COLIN JOLLY(06/08/24 15:41) db Diagnosis - Other specified heart block - THIRD cr - Acute kidney failure, unspecified cr - Syncope Near cr - Weakness cr - Non ST elevation FL cr - Other skin changes - RIGHT FOREARM SKIN TEAR cr Forms: - Medication Reconciliation Form cr - SBAR form cr NIH Stroke Scale - NIH Stroke Score Date: 06/08/2024 Time: 14:19 Total Score = 0 10. Dysarthria (speech clarity - read or repeat words) - 0(Normal) 11. Extinction and Inattention (visual/tactile/auditory/spatial/personal) - 0(No abnormality) 1a. Level of Consciousness (LOC) - 0(Alert) 1b. Level of Consciousness (LOC) (Month \T\ Age) - 0(Both) 1c. LOC Commands (Open \T\ Closes Eyes/Schedule Analyst) - 0(Both) 2. Best Gaze (Lateral Gaze Paresis) - 0(Normal) 3. Visual Field Loss - 0(No visual loss) 4. Facial Palsy - 0(Normal) 5a. Left Arm: Motor (10-second hold) - 0(No drift) 5b. Right Arm: Motor (10-second hold) - 0(No drift) 6a. Left Leg: Motor (5-second hold - always test supine) - 0(No drift) 6b. Right Leg: Motor (5-second hold - always test supine) - 0(No drift) 7. Limb Ataxia (finger/nose \T\ heel/mendiola - test with eyes open) - 0(Absent) 8. Sensory Loss (pinprick arms/legs/face) - 0(Normal) 9. Best Language: Aphasia (description/naming/reading) - 0(No aphasia) Initials: cr Signatures: Dispatcher [employer] EDMS Murray Nava MD MD cha Oliver, Kathy, RN RN ko1 Marissa Mcintyre RN RN db Yelena Ritter RN ko1 Corrections: (The following items were deleted from the chart) 13:01 12:48 Head C Spine Cap Wo Con+CT.RAD.BRZ ordered. EDMS EDMS 14:15 14:01 Furosemide IVP 60 mg IVP once; give over 2 minutes ordered. cr cr 14:57 14:36 TO COLIN JOLLY cha cr 15:41 14:57 TO COLIN JOLLY cha db
--- NOTE | 2024-06-08 14:36 | ER ---
Nurse's Notes [facility] Name: Kinga Singleton Age: 73 yrs Sex: Female : 1950 Arrival Date: 06/08/2024 Time: 12:44 Bed 3 Private MD: Diagnosis: Other specified heart block-THIRD;Acute kidney failure, unspecified;Syncope Near;Weakness;Non ST elevation OH;Other skin changes-RIGHT FOREARM SKIN TEAR Presentation: 06/08 12:47 Chief complaint: EMS states: called for weakness, patient fell, on arrival heart rate ko1 was 35-40, no med list, no history due to language barrier, son who speaks [place] is on his way to hospital. Coronavirus screen: At this time, the client does not indicate any symptoms associated with coronavirus-19. Ebola Screen: No symptoms or risks identified at this time. Initial Sepsis Screen: Does the patient meet any 2 criteria? No. Patient's initial sepsis screen is negative. Does the patient have a suspected source of infection? No. Patient's initial sepsis screen is negative. Risk Assessment: Do you want to hurt yourself or someone else? Patient reports no desire to harm self or others. Onset of symptoms was June 08, 2024. Care prior to arrival: None. 12:47 Method Of Arrival: EMS: [facility] ko1 12:47 Acuity: JITENDRA 2 ko1 Triage Assessment: 12:50 General: Appears in no apparent distress. Behavior is calm, cooperative, appropriate ko1 for age. Pain: Denies pain. Historical: - Allergies: 12:50 No Known Allergies; ko1 - Home Meds: 12:50 Unable to obtain [Active]; ko1 - PMHx: 12:50 Diabetes - IDDM; Hypercholesterolemia; Hypertensive disorder; ko1 - PSHx: 12:50 Total abdominal hysterectomy; ko1 - Immunization history:: Adult Immunizations unknown. - Infectious Disease History:: Denies. - Social history:: Smoking status: Patient denies any tobacco usage or history of. Screenin:51 [facility] ED Fall Risk Assessment (Adult) History of falling in the last 3 months, ko1 including since admission Yes- single mechanical fall (1 pt) Confusion or Disorientation No (0 pts) Intoxicated or Sedated No (0 pts) Impaired Gait No (0 pts) Mobility Assist Device Used No (0 pt) Altered Elimination No (0 pt) Score/Fall Risk Level 0 - 2 = Low Risk Oriented to surroundings, Maintained a safe environment, Educated pt \T\ family on fall prevention, incl call for assistance when getting out of bed, Assessed \T\ reinforced patient's understanding of fall precautions, Hourly rounding (assess needs \T\ fall precautionary measures) done. Abuse screen: Denies threats or abuse. Denies injuries from another. Nutritional screening: No deficits noted. Tuberculosis screening: No symptoms or risk factors identified. Assessment: 13:00 Reassessment: Patient appears in no apparent distress at this time. Patient and/or db family updated on plan of care and expected duration. Pain level reassessed. Patient is alert, oriented x 3, equal unlabored respirations, skin warm/dry/pink. 14:02 Reassessment: Patient appears in no apparent distress at this time. Patient and/or db family updated on plan of care and expected duration. Pain level reassessed. Patient is alert, oriented x 3, equal unlabored respirations, skin warm/dry/pink. General: Appears in no apparent distress. comfortable, Behavior is calm, cooperative. Neuro: Level of Consciousness is awake, alert, obeys commands, Oriented to person, place, time, situation. 14:45 Reassessment: CALLED TO GIVE REPORT TO COLIN PLACED ON HOLD NO ANSWER. db 14:46 Reassessment: Patient appears in no apparent distress at this time. WHILE TRYING TO db GIVE PLAVIX AND CHECK PO STATUS PATIENT BEGAN CHOKING ON WATER. ASSISTED UP. DR. NAVA AT PATIENT BEDSIDE. PATIENT STABILIZED. APPROVED FOR PO ASPIRIN. 15:05 Derm: Wound noted right arm. db 15:35 Cardiovascular: Rhythm is sinus bradycardia. Respiratory: Airway is patent Respiratory db effort is even, unlabored, Respiratory pattern is regular, symmetrical. 15:38 Reassessment: REPORT CALLED TO JACKELINE READ AT [facility] ED. db Vital Signs: 12:45 BP 88 / 43; Pulse 33; Resp 28; Pulse Ox 94% on 2 lpm NC; db 12:47 BP 101 / 49; Pulse 41; Resp 19; Temp 98.4; Pulse Ox 93% on R/A; ko1 13:00 BP 100 / 47; Pulse 32; Resp 20; Pulse Ox 97% on 2 lpm NC; db 13:15 BP 102 / 44; Pulse 33; Resp 18; Pulse Ox 97% on 2 lpm NC; db 14:00 BP 107 / 49; Pulse 34; Resp 14; Pulse Ox 97% on 5 lpm NC; db 14:10 Weight 63.96 kg; bp 14:36 BP 95 / 39; Pulse 33; Resp 16; Pulse Ox 96% on 3 lpm NC; db 14:45 BP 108 / 40; Pulse 32; Resp 16; Pulse Ox 97% on 4 lpm NC; db 15:00 BP 108 / 53; Pulse 32; Resp 18; Pulse Ox 97% on 3 lpm NC; db Vitals: 14:45 Cardiac Rhythm Assessment Sinus leland. db NIH Stroke Scale Scores: 14:19 NIHSS Score: 0 cr ED Course: 12:45 Patient arrived in ED. ko1 12:46 Murray Nava MD is Attending Physician. [facility] 12:50 Triage completed. ko1 12:50 Arm band placed on right wrist. Patient placed in an exam room, on a stretcher, on ko1 oxygen, on hall monitor, on pulse oximetry, Patient notified of wait time. 12:51 Patient has correct armband on for positive identification. Fall risk band placed. Bed ko1 in low position. Call light in reach. Side rails up X2. Provided Education on: labs, meds. Client placed on continuous cardiac and pulse oximetry monitoring. NIBP monitoring applied. monitoring and evaluation advisor on. Door closed. Noise minimized. Lights dimmed. Pillow given. 12:51 Oxygen administration via nasal cannula \T\ 2L/min. ko1 13:16 Lipase Sent. ko1 13:16 TSH Sent. ko1 13:16 Basic Metabolic Panel Sent. ko1 13:16 CBC with Diff Sent. ko1 13:16 LFT's Sent. ko1 13:17 Magnesium Sent. ko1 13:17 NT PRO-BNP Sent. ko1 13:17 PT-INR Sent. ko1 13:17 Troponin HS Sent. ko1 13:45 Head C Spine Mpr Wo Con In Process Unspecified. EDMS 13:45 Chest Abd Pelvis Wo Con In Process Unspecified. EDMS 13:55 XRAY Chest (1 view) In Process Unspecified. EDMS 13:56 Marissa Mcintyre, RN is Primary Nurse. db 13:57 Notified ED physician of a critical lab result(s). TROP 5899.3. db 14:[address] Nava with Maddison from the [facility] Transfer Center. eb 14:[address] Nava with Trevor Villanueva from the the [facility] [[email or web address] transfer eb Center/ pt denied due to being at capacity. 14:17 initiated a transfer with Nona from the [facility] transfer Center. eb 14:21 Inserted saline lock: 22 gauge in left wrist, using aseptic technique. Flushed with 10 em1 mL NS. 14:[address] Park the ED doc avionics safety inspector for [facility] and the intervention eb implementation analyst avionics safety inspector for [facility] with Dr. Nava for patient transfer consultation. 14:31 administrative approval given by Nona Espinoza, patient has been accepted to [facility] ED/ Dr. Abhilash Solorzano has accepted the patient in transfer/ report to be called to [phone]. 14:34 called [facility] for transport/ declined due to weather/. eb 14:36 [facility] called for transport. eb 15:26 Dressings: Kerlix. Wound care: located on right arm was cleaned with Betadine, soaked db in normal saline solution, dressed with 4X4s, Kerlix, Patient tolerated well. 15:35 No provider procedures requiring assistance completed. Patient transferred, IV remains db in place. Administered Medications: 13:10 Drug: Albuterol Inhalation 5 mg Inhalation once Route: Inhalation; ko1 13:16 Drug: NS 0.9% IV 500 ml 500 ml IV at 1 bolus once; to be given as a bolus over 30 ko1 minutes Volume: 500 ml; Route: IV; Rate: 1 bolus; Site: left antecubital; 14:00 Follow up: Response: No adverse reaction; IV Status: Completed infusion; IV Intake: db 500ml 13:16 Drug: Famotidine IVP 20 mg IVP once; dilute with 10 mL 0.9% NaCl; give over 2 minutes ko1 Route: IVP; Site: left antecubital; 15:34 Follow up: Response: No adverse reaction db 13:16 Drug: Glucagon IVP 1 mg IVP once Route: IVP; Site: left antecubital; ko1 15:34 Follow up: Response: No adverse reaction db 13:19 Drug: Calcium Gluconate IVPB 1 grams IVPB once over 20 mins; (mix in NS 100 mL) Route: ko1 IVPB; Infused Over: 20 mins; Site: left antecubital; 14:00 Follow up: Response: No adverse reaction; IV Status: Completed infusion; IV Intake: db 100ml 14:15 CANCELLED (Duplicate Order): [id number] mg IVP once; give over 2 minutes cr 14:35 Drug: Heparin (OH Drip) 12 units/kg/[place] - ([place] [address] units, D5W IV 500 ml) IV at db calculated rate Per protocol; Max initial rate 1000 units/hr {Co-Signature: ko1 (Yelena Ritter RN).} Route: IV; Rate: calculated rate; Site: left hand; 15:32 Follow up: Response: No adverse reaction; IV Status: Infusion continued upon transfer db 14:40 Drug: Furosemide IVP 60 mg IVP once; give over 2 minutes Route: IVP; Site: left forearm;db 15:32 Follow up: Response: No adverse reaction db 15:00 Drug: Atropine IVP 1 mg IVP once Route: IVP; Site: left forearm; db 15:33 Follow up: Response: No adverse reaction db 15:00 Drug: DOPamine IV (400mg/250mL Premix) 5 mcg/kg/min IV at calculated rate See db Administration Instructions; Recommended max rate 20 mcg/kg/min; Titrate 2.5 mcg/kg/min as often as every 5 minutes to achieve goal (see titration policy); Goal parameter MAP greater than 65 mmHg. [*Low doses 1 to 4 mcg/kg/min may result in hypotension, decreased SVR*] {Note: DOPAMINE STARTED AT 2.5 MCG/KG/MIN PER DR. NAVA.} Route: IV; Rate: calculated rate; Site: left forearm; 15:32 Follow up: Response: No adverse reaction; IV Status: Infusion continued upon transfer db 15:05 Drug: Aspirin PO Chewable Tablet 162 mg PO once Route: PO; db 15:33 Follow up: Response: No adverse reaction db 15:05 Drug: Heparin (OH-Bolus No thrombolytic) - HEParin IVP 60 units/kg IVP once; Max 5000 db units {Co-Signature: ronald (Yelena Ritter RN).} Route: IVP; Site: left hand; 15:33 Follow up: Response: No adverse reaction db 15:05 Drug: Boostrix Tdap IM 0.5 ml IM once; as a single dose Route: IM; Site: left deltoid; db 15:32 Follow up: Response: No adverse reaction db 15:05 Drug: Albuterol Inhalation 2.5 mg Inhalation once Route: Inhalation; db 15:05 Drug: morphine IVP or IV 2 mg IVP once over 4 mins Route: IVP; Infused Over: 4 mins; db Site: left forearm; 15:32 Follow up: Response: Pain is decreased db 15:05 Drug: Ondansetron IVP 4 mg IVP once; over 2 minutes Route: IVP; Site: left forearm; db 15:32 Follow up: Response: No adverse reaction db 15:24 Not Given (Physician Discretion): [id number] mg PO once db Medication: 15:15 Vaccine Information Statement (VIS) provided today. Questions and/or concerns db addressed. VIS edition date: January 07, 2019. Intake: 14:00 IV: 500ml; Total: 500ml. db 14:00 IV: 100ml; Total: 600ml. db Outcome: 14:36 ER care complete, transfer ordered by MD. cr 15:34 Transferred by ground EMS Transfer form completed. X-rays sent w/ patient. Note: [facility] db CLEAR VEGA 15:34 Condition: stable 15:34 Instructed on the need for transfer, 15:41 Patient left the ED. db NIH Stroke Scale - NIH Stroke Score Date: 06/08/2024 Time: 14:19 Total Score = 0 10. Dysarthria (speech clarity - read or repeat words) - 0(Normal) 11. Extinction and Inattention (visual/tactile/auditory/spatial/personal) - 0(No abnormality) 1a. Level of Consciousness (LOC) - 0(Alert) 1b. Level of Consciousness (LOC) (Month \T\ Age) - 0(Both) 1c. LOC Commands (Open \T\ Closes Eyes/Communication Instructor) - 0(Both) 2. Best Gaze (Lateral Gaze Paresis) - 0(Normal) 3. Visual Field Loss - 0(No visual loss) 4. Facial Palsy - 0(Normal) 5a. Left Arm: Motor (10-second hold) - 0(No drift) 5b. Right Arm: Motor (10-second hold) - 0(No drift) 6a. Left Leg: Motor (5-second hold - always test supine) - 0(No drift) 6b. Right Leg: Motor (5-second hold - always test supine) - 0(No drift) 7. Limb Ataxia (finger/nose \T\ heel/mendiola - test with eyes open) - 0(Absent) 8. Sensory Loss (pinprick arms/legs/face) - 0(Normal) 9. Best Language: Aphasia (description/naming/reading) - 0(No aphasia) Initials: cr Signatures: Dispatcher [employer] EDMurray Olson MD MD cha Martinez, Eric em1 Deangelo Castro, RN RN Inga Rae Kathy, RN RN ko1 Marissa Mcintyre RN RN Yelena Rolle RN ko1 Corrections: (The following items were deleted from the chart) 15:20 15:00 DOPamine IV (400mg/250mL Premix) 319.8 mcg/min IV at calculated rate in db left forearm db 15:36 15:05 Derm: Wound noted right arm db db 15:37 12:51 VIS not applicable for this client. ko1 db
[2024-06-08] MEDS ORDERED: ONDANSETRON 4 MG/2 ML VIAL ONE (15:05)
[2024-06-08] MEDS ORDERED: MORPHINE 2 MG/ML SYR ONE (15:06)
[2024-06-08] MEDS ORDERED: DOPAMINE/D5W 400 MG/250 ML BAG IV ONE (15:08)
[2024-06-08] MEDS ORDERED: ATROPINE SULF 1 MG/10 ML SYR IV ONE (15:08)
[2024-06-08] MEDS ORDERED: TDAP (DIPHTH,PERTUSS(ACELL),TET VAC) 0.5 ML VIAL IMVAC ONE (15:12)
[2024-06-08 16:18] VITALS: TEMP 98.4
[2024-06-08 16:28] VITALS: O2SAT 97
[2024-06-08 16:30] VITALS: BP 108/53
--- NOTE | 2024-06-16 11:12 | EKG ---
Test Date: 2024-06-08 Test Time: 15:22:36 Managed Care Provider: BRITTA MEASUREMENT RESULTS: Intervals: Rate: 34 IN: QRSD: 116 QT: 578 QTc: 434 [place]: P: IN: QRS: 97 T: 58 INTERPRETIVE STATEMENTS: Junctional bradycardia Right bundle branch block Abnormal ECG Compared to ECG 06/08/2024 12:47:51 Right bundle-branch block now present Sinus bradycardia no longer present AV dissociation no longer present Electronically Signed On 06-16-24 11:01:30 TAX COMPLIANCE MANAGER by Tone Rboles
--- NOTE | 2024-06-16 11:13 | EKG ---
Test Date: 2024-06-08 Test Time: 12:47:51 Manager Java: COLE MEASUREMENT RESULTS: Intervals: Rate: 34 [place]: QRSD: 86 QT: 562 QTc: 422 [place]: P: [place]: QRS: 81 T: 61 INTERPRETIVE STATEMENTS: Marked sinus bradycardia with AV dissociation and Junctional bradycardia Abnormal ECG Compared to ECG 01/11/2023 21:51:13 AV dissociation now present Sinus rhythm no longer present Electronically Signed On 06-16-24 11:01:41 ANDROID PLATFORM DEVELOPER by Tone Robles
== END 2024-06-08 15:41 | disposition short-term general hospital (02) ==
LOC: ER 12:44
DX: I44.2 Atrioventricular block, complete (principal); I21.4 Non-ST elevation (NSTEMI) myocardial infarction; N17.9 Acute kidney failure, unspecified; S51.811A Laceration without foreign body of right forearm, initial encounter; R53.1 Weakness; E11.9 Type 2 diabetes mellitus without complications; I10 Essential (primary) hypertension
CPT/HCPCS: 93005 ×2; 85025; 80048; 36415; 83735; 85610; 80076; 85730; 84443; 84484; 84439; 83690; 83880; 70450; 71250; 72125; 74176; 71045; 96372; 99285; 12002; J1610; J1644; J0612; J1940 ×2; J0461; J7613 ×2; J2270; J2405; J1265; J7040